=== PATIENT | female | born 1960 | race African-American/Black ===

== ENCOUNTER 2017-08-13 02:48 | Inpatient (IN) | payer OTHER ==
--- NOTE | 2017-08-13 03:18 | PDOC ---
History of Present Illness - General Exam Limitations: No Limitations - History of Present Illness Initial Comments: 08/13/17 04:20 Patient is a 57 year old female with a significant past medical history of HTN, DM, COPD, CKD who presents to the ED with complaints of Exacerbation of asthma / COPD that began yesterday morning. Patient reports smoking yesterday morning when she began experiencing SOB. Patient states she doesn't know if the SOB is caused by exacerbation of asthma or by COPD as the feeling of the SOB feels similar to both. Patient states she has been compliant with all prescribed medications. Denies fever, chills. Denie headache, lightheadedness. Denies nausea, vomiting. Denies contact with sick individuals, out of state travel. Allergies: tomato, Penicillins, chocolate Social history: Current smoker. No alcohol. No illicit drugs. Surgical history: None PMD: Dr. Rivera Doe <Diego Nagy - Last Filed: 08/13/17 04:20> - General History Source: Patient <Christian Maradiaga - Last Filed: 08/13/17 05:20> - General Chief Complaint: Shortness of Breath Stated Complaint: S.O.B. Time Seen by Provider: 08/13/17 03:15 Past History <Diego Nagy - Last Filed: 08/13/17 04:20> - Past Medical History Anemia: No Asthma: Yes Cancer: No Cardiac Disorders: No CVA: No COPD: Yes CHF: No Dementia: No Diabetes: Yes GI Disorders: No Disorders: No HTN: Yes Hypercholesterolemia: Yes Liver Disease: No Seizures: No Thyroid Disease: No - Surgical History Abdominal Surgery: No Appendectomy: No Cardiac Surgery: No Cholecystectomy: No Lung Surgery: No Neurologic Surgery: No Orthopedic Surgery: No - Immunization History Td Vaccination: Yes TDAP Vaccination: Yes Immunization Up to Date: Yes - Suicide/Smoking/Psychosocial Hx Smoking Status: Yes Smoking History: Former smoker Years of Tobacco Use: 30 Have you smoked in the past 12 months: No Number of Cigarettes Smoked Daily: 0 Cigars Per Day: 0 Information on smoking cessation initiated: No 'Breaking Loose' booklet given: 12/07/13 Hx Alcohol Use: No Drug/Substance Use Hx: No Substance Use Type: None Hx Substance Use Treatment: No <Christian Maradiaga - Last Filed: 08/13/17 05:20> - Past Medical History Allergies/Adverse Reactions: Allergies Allergy/AdvReac Type Severity Reaction Status Date / Time tomato [Tomato] Allergy Unknown Verified 08/13/17 03:12 Penicillins Allergy Hives Verified 08/13/17 03:12 chocolate Allergy Unknown Uncoded 08/13/17 03:12 Home Medications: Ambulatory Orders Gabapentin [Neurontin -] 300 mg PO Q6H #21 capsule 07/09/13 Atenolol [Tenormin -] 100 mg PO BID #60 tablet 11/28/15 Bupropion HCl [Wellbutrin Xl -] 150 mg PO DAILY #30 tab.sr.24h 11/28/15 Dabigatran Etexilate Mesylate [Pradaxa -] 150 mg PO BID #60 cap 11/28/15 Diltiazem Cd [Cardizem Cd -] 360 mg PO DAILY #30 cap.cd.24h 11/28/15 Hydroxyzine Pamoate [Vistaril -] 50 mg PO DAILY #30 capsule 11/28/15 Oxycodone HCl/Acetaminophen [Percocet 10-325 mg Tablet] 1 each PO QID PRN #16 tablet MDD 4 tabs 04/29/16 Review of Systems - Review of Systems Able to Perform ROS?: Yes Comments:: 08/13/17 04:20 CONSTITUTIONAL: Absent: fever, no chills, no fatigue EYES: Absent: visual changes ENT: Absent: ear pain, no sore throat CARDIOVASCULAR: Absent: chest pain, no palpitations RESPIRATORY: +SOB Absent: cough, GI: Absent: abdominal pain, no nausea, no vomiting, no constipation, no diarrhea GENITOURINARY: Absent: dysuria, no frequency, no hematuria MUSCULOSKELETAL: Absent: back pain, no arthralgia, no myalgia SKIN: Absent: rash All Other Systems: Reviewed and Negative <Diego Nagy - Last Filed: 08/13/17 04:20> *Physical Exam - Vital Signs Last Vital Signs Temp Pulse Resp BP Pulse Ox 99.4 F 72 22 180/80 92 L 08/13/17 03:28 08/13/17 03:28 08/13/17 03:28 08/13/17 03:28 08/13/17 03:28 - Physical Exam Comments: 08/13/17 04:20 GENERAL: Well-appearing, well-nourished. No apparent distress. HEENT: Normocephalic, atraumatic. PERRL, EOM intact. CARDIOVASCULAR: Normal S1, S2. Regular rate and rhythm. PULMONARY: +Coarse bilateral breath sounds. +Mild conversational dyspnea. Clear to auscultation bilaterally. ABDOMEN: Soft, non-distended, non-tender. EXTREMITIES: Normal ROM in all four extremities. No gross deformities. SKIN: Warm, dry. No rash NEUROLOGICAL: No focal neurological deficits. <Diego Nagy - Last Filed: 08/13/17 04:20> ED Treatment Course - LABORATORY CBC & Chemistry Diagram: 08/13/17 03:30 08/13/17 03:30 - ADDITIONAL ORDERS Additional order review: Laboratory Results 08/13/17 03:30 PT with INR 12.40 H INR 1.10 D-Dimer 388 H 08/13/17 03:30 RBC 4.48 MCV 88.3 MCHC 32.7 RDW 15.5 MPV 10.6 Neutrophils % 82.3 D Lymphocytes % 6.4 L D Monocytes % 10.1 Eosinophils % 0.9 Basophils % 0.3 - Medications Given in the ED: ED Medications Discontinued Medications Generic Name Dose Route Start Last Admin Trade Name Freq PRN Reason Stop Dose Admin Albuterol/Ipratropium 1 amp 08/13/17 03:19 08/13/17 03:40 Duoneb - NEB 08/13/17 03:20 1 amp ONCE STA Administration Albuterol/Ipratropium 1 amp 08/13/17 03:20 08/13/17 04:05 Duoneb - NEB 08/13/17 03:21 1 amp ONCE STA Administration Magnesium Sulfate 2 gm 08/13/17 03:20 08/13/17 04:05 Magnesium Sulfate IVPB 08/13/17 03:21 2 gm ONCE ONE Administration Methylprednisolone Sodium Succinate 125 mg 08/13/17 03:19 08/13/17 04:05 Solu-Medrol - IVPB 08/13/17 03:20 125 mg ONCE ONE Administration <Digeo Nagy - Last Filed: 08/13/17 04:20> - LABORATORY CBC & Chemistry Diagram: 08/13/17 03:30 08/13/17 03:30 <Christian Maradiaga - Last Filed: 08/13/17 05:20> Medical Decision Making - Medical Decision Making 08/13/17 05:18 Dr. Maradiaga: The scribe's documentation has been prepared under my direction and personally reviewed by me in its entirery. I confirm that the note above accurately reflects all work, treatment, procedures, and medical decision making performed by me. Pt still having moderate sob. Pt found also to have CHF with elevation of BNP. Pt will be admitted to Telemetry. <Christian Maradiaga - Last Filed: 08/13/17 05:20> *DC/Admit/Observation/Transfer - Attestations Scribe Attestion: 08/13/17 04:21 Documentation prepared by Diego Nagy, acting as medical staffing coordinator for Christian Maradiaga MD/DO. <Diego Nagy - Last Filed: 08/13/17 04:20> - Discharge Dispostion Admit: Yes <Christian Maradiaga - Last Filed: 08/13/17 05:20> Diagnosis at time of Disposition: COPD (chronic obstructive pulmonary disease), CHF (congestive heart failure) - Discharge Dispostion Condition at time of disposition: Stable - Referrals Referrals: Rivera Doe [Primary Care Provider] - - Patient Instructions - Post Discharge Activity
[2017-08-13] MEDS ORDERED: methylPREDNISolone NA SUCC 125 MG/2 ML VIAL IVPB ONE (03:19)
[2017-08-13] MEDS ORDERED: ALBUTEROL SO4 2.5/IPRATROPIUM 0.5 INH SOL 3 ML VIAL.NEB. NEB STA ×2 (03:19→03:20)
[2017-08-13] MEDS ORDERED: MAGNESIUM SULF 50% (8.12 MEQ/2 ML-1 GM VIAL) IVPB ONE (03:20)
[2017-08-13] MEDS ORDERED: MAGNESIUM SULF 50% (8.12 MEQ/2 ML-1 GM VIAL) ONE (03:42)
[2017-08-13] MEDS ORDERED: methylPREDNISolone NA SUCC 125 MG/2 ML VIAL ONE (03:43)
[2017-08-13] MEDS ORDERED: ALBUTEROL SO4 2.5/IPRATROPIUM 0.5 INH SOL 3 ML VIAL.NEB. NEB ONE (03:43)
[2017-08-13 03:44] LABS: BASOPHIL 0.3 % (0-2.0); EOSINOPHIL 0.9 % (0-4.5); MCH 28.8 pg (25.7-33.7); MCHC 32.7 g/dl (32.0-36.0); MEAN CELL VOLUME 88.3 fl (80-96); MEAN PLT VOLUME 10.6 fl (7.5-11.1); NEUTROPHILS 82.3 % (42.8-82.8); PLATELET COUNT 123 K/MM3 (134-434); RDW 15.5 % (11.6-15.6); WHITE BLOOD COUNT 17.7 K/mm3 (4.0-10.0)
[2017-08-13 03:59] LABS: INR 1.1 (0.82-1.09); PROTHROMBIN TIME (PATIENT) 12.4 SEC (9.98-11.88)
[2017-08-13 04:18] LABS: TROPONIN I 0.05 ng/ml (0.00-0.05)
[2017-08-13 04:27] LABS: ALBUMIN 3.6 g/dl (3.4-5.0); ALK PHOS 67 U/L (45-117); ANION GAP 10 (8-16); BILIRUBIN,TOTAL 0.8 mg/dL (0.2-1.0); CALCIUM 9.3 mg/dL (8.5-10.1); CO2 35 mmol/L (21-32); CREATININE 1.3 mg/dL (0.55-1.02); GLUCOSE,RANDOM 177 mg/dL (74-106); SGOT/AST 16 U/L (15-37); SGPT/ALT 32 U/L (12-78); TOT PROT 7.2 g/dl (6.4-8.2)
[2017-08-13] MEDS ORDERED: FUROSEMIDE 40 MG/4 ML INJECTABLE VIAL IVPUSH ONE (05:10)
[2017-08-13] MEDS ORDERED: FUROSEMIDE 40 MG/4 ML INJECTABLE VIAL ONE (06:00)
[2017-08-13] MEDS: FUROSEMIDE 40 MG/4 ML INJECTABLE VIAL IVPUSH SCH ×2 (06:57→14:41)
[2017-08-13] MEDS: GABAPENTIN 300 MG CAPSULE (FP) PO SCH ×3 (08:50→21:06)
[2017-08-13] MEDS ORDERED: GABAPENTIN 100 MG CAPSULE (FP) ONE (08:54)
[2017-08-13 10:16] LABS: MAGNESIUM 2.6 mg/dL (1.8-2.4)
[2017-08-13] MEDS ORDERED: ACETAMINOPHEN 325 MG TABLET (FP) PO PRN (10:16)
--- NOTE | 2017-08-13 10:17 | HP ---
Admitting History and Physical - Primary Care Physician PCP: Maite Carlin - Admission Chief Complaint: SOB/COUGH/WHEEZES History of Present Illness: Patient is a 57 year old female with a significant past medical history of HTN, DM, COPD, CKD who presents to the ED with complaints of Exacerbation of asthma / COPD that began yesterday morning. Patient reports smoking yesterday morning when she began experiencing SOB. Patient states she doesn't know if the SOB is caused by exacerbation of asthma or by COPD as the feeling of the SOB feels similar to both. Patient states she has been compliant with all prescribed medications. History Source: Patient, Medical Record - Past Medical History Cardiovascular: Yes: HTN Pulmonary: Yes: COPD Endocrine: Yes: Diabetes Mellitus - Smoking History Smoking history: Former smoker Have you smoked in the past 12 months: No Aproximately how many cigarettes per day: 0 - Alcohol/Substance Use Hx Alcohol Use: No Home Medications - Allergies Allergies/Adverse Reactions: Allergies Allergy/AdvReac Type Severity Reaction Status Date / Time tomato [Tomato] Allergy Unknown Verified 08/13/17 03:12 Penicillins Allergy Hives Verified 08/13/17 03:12 chocolate Allergy Unknown Uncoded 08/13/17 03:12 - Home Medications Home Medications: Ambulatory Orders Gabapentin [Neurontin -] 300 mg PO Q6H #21 capsule 07/09/13 Atenolol [Tenormin -] 100 mg PO BID #60 tablet 11/28/15 Bupropion HCl [Wellbutrin Xl -] 150 mg PO DAILY #30 tab.sr.24h 11/28/15 Dabigatran Etexilate Mesylate [Pradaxa -] 150 mg PO BID #60 cap 11/28/15 Diltiazem Cd [Cardizem Cd -] 360 mg PO DAILY #30 cap.cd.24h 11/28/15 Hydroxyzine Pamoate [Vistaril -] 50 mg PO DAILY #30 capsule 11/28/15 Oxycodone HCl/Acetaminophen [Percocet 10-325 mg Tablet] 1 each PO QID PRN #16 tablet MDD 4 tabs 04/29/16 Review of Systems - Review of Systems Constitutional: reports: Weakness Eyes: reports: No Symptoms HENT: reports: No Symptoms Neck: reports: No Symptoms Cardiovascular: reports: Shortness of Breath Respiratory: reports: Cough, Orthopnea, SOB, SOB on Exertion, Wheezing Gastrointestinal: reports: No Symptoms Genitourinary: reports: No Symptoms Musculoskeletal: reports: No Symptoms Integumentary: reports: No Symptoms Neurological: reports: No Symptoms Endocrine: reports: No Symptoms Hematology/Lymphatic: reports: No Symptoms Psychiatric: reports: No Symptoms Physical Examination Vital Signs: Vital Signs Temperature 99.4 F 08/13/17 03:28 Pulse Rate 96 H 08/13/17 07:05 Respiratory Rate 18 08/13/17 07:05 Blood Pressure 159/86 08/13/17 07:05 O2 Sat by Pulse Oximetry (%) 93 L 08/13/17 07:05 Constitutional: Yes: Moderate Distress Eyes: Yes: WNL HENT: Yes: WNL Neck: Yes: WNL Cardiovascular: Yes: WNL Respiratory: Yes: On Nasal O2, Rhonchi, SOB Gastrointestinal: Yes: WNL Renal/: Yes: WNL Musculoskeletal: Yes: WNL Extremities: Yes: WNL Edema: No Peripheral Pulses WNL: Yes Integumentary: Yes: WNL Wound/Incision: Yes: Clean/Dry Neurological: Yes: WNL ...Motor Strength: WNL Psychiatric: Yes: WNL Labs: CBC, BMP 08/13/17 03:30 08/13/17 03:30 Imaging - Results Chest X-ray: Report Reviewed Problem List - Problems (1) CHF (congestive heart failure) Code(s): I50.9 - HEART FAILURE, UNSPECIFIED Qualifiers: Congestive heart failure type: unspecified congestive heart failure type Congestive heart failure chronicity: unspecified congestive heart failure chronicity Qualified Code(s): I50.9 - Heart failure, unspecified (2) COPD (chronic obstructive pulmonary disease) Code(s): J44.9 - CHRONIC OBSTRUCTIVE PULMONARY DISEASE, UNSPECIFIED Qualifiers: COPD type: COPD with acute exacerbation Qualified Code(s): J44.1 - Chronic obstructive pulmonary disease with (acute) exacerbation (3) Anxiety and depression Code(s): F41.9 - ANXIETY DISORDER, UNSPECIFIED; F32.9 - MAJOR DEPRESSIVE DISORDER, SINGLE EPISODE, UNSPECIFIED (4) Cough Code(s): R05 - COUGH (5) Cigarette nicotine dependence Code(s): F17.200 - NICOTINE DEPENDENCE, UNSPECIFIED, UNCOMPLICATED Assessment/Plan CARDIOLOGY WORKUP TELEMETRY ECHO CHECK EF% DIFFERENTIATE SYSTOLIC VS DIASTOLIC DYSFUNCTION PULMONARY EVAL MONITOR BGM ADA SMOKING CESSATION DISCUSSED
[2017-08-13 10:18] LABS: TROPONIN I 0.06 ng/ml (0.00-0.05)
--- NOTE | 2017-08-13 10:20 | EKG ---
Test Reason : Blood Pressure : / mmHG Vent. Rate : 076 BPM Atrial Rate : 076 BPM P-R Int : 118 ms QRS Dur : 102 ms QT Int : 422 ms P-R-T Axes : -46 -41 095 degrees QTc Int : 474 ms NORMAL SINUS RHYTHM LEFT AXIS DEVIATION LEFT VENTRICULAR HYPERTROPHY WITH REPOLARIZATION ABNORMALITY ABNORMAL ECG WHEN COMPARED WITH ECG OF 25-NOV-2015 10:05, ECTOPIC ATRIAL RHYTHM HAS REPLACED ATRIAL FIBRILLATION NON-SPECIFIC CHANGE IN ST SEGMENT IN LATERAL LEADS T WAVE INVERSION LESS EVIDENT IN LATERAL LEADS Confirmed by CLIFF MCDANIEL, BELLA ([id number]) on 08/13/2017 10:20:37 AM Referred By: Confirmed By:BELLA CORONADO MD
[2017-08-13] MEDS: ASPIRIN COATED 81 MG TABLET.EC PO SCH (10:30)
[2017-08-13] MEDS: ATENOLOL 50 MG TABLET (FP) PO SCH ×2 (10:30→21:06)
[2017-08-13] MEDS: DABIGATRAN ETEXILATE MESYLATE 150 MG CAPSULE PO SCH ×2 (10:30→21:06)
[2017-08-13 11:21] VITALS: BMI 30.4
--- NOTE | 2017-08-13 14:52 | PN ---
Teaching Attending Note Name of Resident: Dae Alaniz ATTENDING PHYSICIAN STATEMENT I saw and evaluated the patient. I reviewed the resident's note and discussed the case with the resident. I agree with the resident's findings and plan as documented. PULMONARY IMP DYSPNEA CHF COPD AFIB NIDDM HTN OSAS AHI 27.6 OBESITY SMOKER PLAN INHALED BRONCHODILATORS O2 LASIX MEDROL ECHO DAILY WTS SLEEP SCREEN PFTS OUTPATIENT SMOKING CESSATION COUNSELED YEARLY LOW DOSE CHEST CT FOR CANCER SCREENING OUTPATIENT CPAP TITRATION DR ROLLE Problem List - Problems (1) CHF (congestive heart failure) Code(s): I50.9 - HEART FAILURE, UNSPECIFIED (2) COPD (chronic obstructive pulmonary disease) Code(s): J44.9 - CHRONIC OBSTRUCTIVE PULMONARY DISEASE, UNSPECIFIED (3) Afib Code(s): I48.91 - UNSPECIFIED ATRIAL FIBRILLATION Qualifiers: Atrial fibrillation type: unspecified Qualified Code(s): I48.91 - Unspecified atrial fibrillation (4) Anxiety and depression Code(s): F41.9 - ANXIETY DISORDER, UNSPECIFIED; F32.9 - MAJOR DEPRESSIVE DISORDER, SINGLE EPISODE, UNSPECIFIED (5) Cough Code(s): R05 - COUGH (6) Generalized weakness Code(s): R53.1 - WEAKNESS (7) Hypertension Code(s): I10 - ESSENTIAL (PRIMARY) HYPERTENSION (8) Leg edema Code(s): R60.0 - LOCALIZED EDEMA (9) Obesity Code(s): E66.9 - OBESITY, UNSPECIFIED (10) Cigarette nicotine dependence Code(s): F17.200 - NICOTINE DEPENDENCE, UNSPECIFIED, UNCOMPLICATED (11) Diabetes Code(s): E11.9 - TYPE 2 DIABETES MELLITUS WITHOUT COMPLICATIONS (12) Hyperlipidemia Code(s): E78.5 - HYPERLIPIDEMIA, UNSPECIFIED
--- NOTE | 2017-08-13 15:09 | CONSULT ---
Consultation: REQUESTING PROVIDER: CONSULT REQUEST: We have been asked to medically evaluate this patient for elevated D-dimer. HISTORY OF PRESENT ILLNESS: 57F w/ hx of COPD, CHF, HTN, DM, a-fib, NIDDM, TANISHA, and CKD presenting with about a week of SOB. Pt reports that approximately one week ago, she developed SOB. It was accompanied by nasal congestion, rhinorrhea, non-productive cough, and wheezing. She denies sick contacts, fevers, chills, palpitations, abdominal pain, n/v/d/c, and dysuria. The SOB significantly worsened 1 day ago prompting her to come to the hospital. Pt reports medication compliance. 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 She has no surgical hx. She has about a 40 pack year smoking hx, denies alcohol, denies drug use. She has a family hx of DM, HTN, and [place]. She lives with her , 2 kids, and 2 grandkids. 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 REVIEW OF SYSTEMS: CONSTITUTIONAL: Absent: fever, chills, diaphoresis, generalized weakness, malaise, loss of appetite, weight change HEENT: Absent: throat pain, throat swelling, difficulty swallowing, mouth swelling, ear pain, eye pain, visual changes present: rhinorrhea, nasal congestion CARDIOVASCULAR: Absent: chest pain, syncope, palpitations, irregular heart rate, lightheadedness present: LE edema RESPIRATORY: Absent: orthopnea, stridor, hemoptysis present: cough, shortness of breath, dyspnea with exertion, wheezing GASTROINTESTINAL: Absent: abdominal pain, abdominal distension, nausea, vomiting, diarrhea, constipation, melena, hematochezia GENITOURINARY: Absent: dysuria, frequency, urgency, hesitancy, hematuria, flank pain, genital pain MUSCULOSKELETAL: Absent: myalgia, joint swelling, back pain, neck pain present: knee pain SKIN: Absent: rash, itching, pallor HEMATOLOGIC/IMMUNOLOGIC: Absent: easy bleeding, easy bruising, lymphadenopathy, frequent infections ENDOCRINE: Absent: unexplained weight gain, unexplained weight loss, heat intolerance, cold intolerance NEUROLOGIC: Absent: headache, focal weakness or paresthesias, dizziness, unsteady gait, seizure, mental status changes, bladder or bowel incontinence PSYCHIATRIC: Absent: anxiety, depression, suicidal or homicidal ideation, hallucinations. PHYSICAL EXAMINATION Vital Signs - 24 hr 08/13/17 08/13/17 08/13/17 03:28 07:05 10:30 Temperature 99.4 F Pulse Rate 72 Pulse Rate [ 96 H 68 Right Apical] Respiratory 22 18 Rate Blood Pressure 180/80 Blood Pressure 159/86 189/99 [Right Arm] O2 Sat by Pulse 92 L 93 L 94 L Oximetry (%) 08/13/17 08/13/17 14:00 14:50 Temperature 98.4 F Pulse Rate 74 Pulse Rate [ 65 Right Apical] Respiratory 20 Rate Blood Pressure 141/69 Blood Pressure 145/80 [Right Arm] O2 Sat by Pulse 92 L Oximetry (%) GENERAL: obese female, awake, alert, and fully oriented, in no acute distress. HEENT: poor dentition, rhinorrhea NECK: Normal range of motion, supple without lymphadenopathy, JVD, or masses. LUNGS: decreased breath sounds, no rales, no wheezing HEART: Regular rate and rhythm, normal S1 and S2 without murmur, rub or gallop. ABDOMEN: obese, soft, nontender, not distended, normoactive bowel sounds, no guarding, no rebound, no masses. No hepatomegaly or splenomegaly. MUSCULOSKELETAL: 1+ b/l LE edema up to ankles NEUROLOGICAL: Cranial nerves II-XII intact. Normal speech. PSYCHIATRIC: Cooperative. Good eye contact. Appropriate mood and affect. SKIN: Warm, dry, normal turgor, no rashes or lesions noted. Laboratory Results - last 24 hr 08/13/17 08/13/17 08/13/17 03:30 03:30 03:30 WBC 17.7 H D RBC 4.48 Hgb 12.9 Hct 39.5 MCV 88.3 MCH 28.8 MCHC 32.7 RDW 15.5 Plt Count 123 L MPV 10.6 Neutrophils % 82.3 D Lymphocytes % 6.4 L D Monocytes % 10.1 Eosinophils % 0.9 Basophils % 0.3 PT with INR 12.40 H INR 1.10 D-Dimer 388 H Sodium Potassium Chloride Carbon Dioxide Anion Gap BUN Creatinine Creat Clearance w eGFR Random Glucose Hemoglobin A1c % Calcium Magnesium Total Bilirubin AST ALT Alkaline Phosphatase Creatine Kinase 51 Troponin I 0.05 B-Natriuretic Peptide 19780.47 H Total Protein Albumin Triglycerides Cholesterol Total LDL Cholesterol HDL Cholesterol 08/13/17 08/13/17 08/13/17 03:30 09:43 09:43 WBC RBC Hgb Hct MCV MCH MCHC RDW Plt Count MPV Neutrophils % Lymphocytes % Monocytes % Eosinophils % Basophils % PT with INR INR D-Dimer Sodium 143 Potassium 3.5 Chloride 98 Carbon Dioxide 35 H Anion Gap 10 BUN 21 H Creatinine 1.3 H Creat Clearance w eGFR 41.92 Random Glucose 177 H D Hemoglobin A1c % 7.2 H D Calcium 9.3 Magnesium 2.6 H Total Bilirubin 0.8 D AST 16 D ALT 32 D Alkaline Phosphatase 67 D Creatine Kinase 52 Troponin I 0.06 H B-Natriuretic Peptide Total Protein 7.2 Albumin 3.6 Triglycerides 84 D Cholesterol 252 H D Total LDL Cholesterol 100 HDL Cholesterol 130 H D Active Medications Generic Name Dose Route Start Last Admin Trade Name Freq PRN Reason Stop Dose Admin Acetaminophen 650 mg 08/13/17 10:16 Tylenol - PO Q6H PRN FEVER OR PAIN Aspirin 81 mg 08/13/17 10:00 08/13/17 10:30 Ecotrin - PO 81 mg DAILY JOLENE Administration Atenolol 100 mg 08/13/17 10:00 08/13/17 10:30 Tenormin - PO 100 mg BID JOLENE Administration Bupropion HCl 150 mg 08/13/17 10:00 08/13/17 10:30 Wellbutrin Xl - PO 150 mg DAILY JOLENE Administration Dabigatran 150 mg 08/13/17 10:00 08/13/17 10:30 Pradaxa - PO Not Given BID JOLENE Diltiazem HCl 360 mg 08/13/17 10:00 08/13/17 10:30 Cardizem Cd - PO 360 mg DAILY JOLENE Administration Furosemide 40 mg 08/13/17 06:30 08/13/17 14:41 Lasix Injection - IVPUSH 40 mg BID@0600,1400 JOLENE Administration Gabapentin 300 mg 08/13/17 06:30 08/13/17 14:40 Neurontin - PO 300 mg TID JOLENE Administration Oxycodone HCl 5 mg 08/13/17 10:16 Roxicodone - PO Q6H PRN PAIN CXR: large heart, no acute pathology ASSESSMENT/PLAN: 57F w/ hx of CHF, COPD, HTN, DM, a-fib, NIDDM and CKD presenting with acute SOB. #SOB -likely 2/2 COPD vs. CHF exacerbation -lasix -duonebs -steroids -O2 via NC -echo -daily weights, strict I/O's -counseling on smoking cessation -pt should have yearly low dose CT chest for lung cancer screening -outpt CPAP titration -outpt PFTs Rest of care per medical team Case discussed with attending, Dr. Virk. Dispo: We will continue to follow the patient. Thank you for this consultative opportunity. -Dae Alaniz MD PGY1 Pulmonology Team Visit type - Emergency Visit Emergency Visit: Yes ED Registration Date: 08/13/17 Care time: The patient presented to the Emergency Department on the above date and was hospitalized for further evaluation of their emergent condition. - New Patient This patient is new to me today: No - Critical Care Critical Care patient: No
[2017-08-13 15:21] LABS: URINE APPEARANCE SLCLOUDY; URINE BILIRUBIN NEGATIVE (NEGATIVE); URINE BLOOD NEGATIVE (NEGATIVE); URINE COLOR YELLOW; URINE GLUCOSE (UA) 1+ (NEGATIVE); URINE KETONE NEGATIVE (NEGATIVE); URINE NITRITE NEGATIVE (NEGATIVE); URINE UROBILINOGEN NEGATIVE mg/dL (0.2-1.0)
[2017-08-13 15:25] LABS: URINE LEUK ESTERASE 2+ (NEGATIVE); URINE PROTEIN 2+ (NEGATIVE)
[2017-08-13 15:33] LABS: URINE BACTERIA RARE /hpf (NONE SEEN); URINE HYALINE CAST 7 /lpf; URINE MUCUS RARE; URINE RBC 5 /hpf (0-3); URINE WBC 8 /hpf (3-5)
[2017-08-13] MEDS: oxyCODONE HCL 5 MG TABLET PO PRN (16:26)
--- NOTE | 2017-08-13 17:17 | CON.CARD ---
Consult Consult Specialty:: Cardiology Reason for Consultation:: CHF - History of Present Illness Chief Complaint: Presently offers no complaints History of Present Illness: This is a 57 year old female with a PMH of AFIB (on Pradaxa), HTN, DM, COPD, and CKD. She presents now with a complaint of PEÑA secondary to asthma / COPD. She continue to smoke. She reports that approximately one week ago, she developed SOB. It was accompanied by nasal congestion, rhinorrhea, non-productive cough, and wheezing. According to the patient, these symptoms have resolved. Echocardiogram 08/13/17 Showede an EF of 77% Normal LV size and function Normal RV size and function Mild MV thickening - Past Medical History Cardio/Vascular: Yes: HTN Pulmonary: Yes: COPD Endocrine: Yes: Diabetes Mellitus - Alcohol/Substance Use Hx Alcohol Use: No - Smoking History Smoking history: Former smoker Have you smoked in the past 12 months: No Aproximately how many cigarettes per day: 0 - Social History Usual Living Arrangement: With Spouse (and two grand children) Home Medications - Allergies Allergies/Adverse Reactions: Allergies Allergy/AdvReac Type Severity Reaction Status Date / Time tomato [Tomato] Allergy Unknown Verified 08/13/17 03:12 Penicillins Allergy Hives Verified 08/13/17 03:12 chocolate Allergy Unknown Uncoded 08/13/17 03:12 - Home Medications Home Medications: Ambulatory Orders Gabapentin [Neurontin -] 300 mg PO Q6H #21 capsule 07/09/13 Atenolol [Tenormin -] 100 mg PO BID #60 tablet 11/28/15 Bupropion HCl [Wellbutrin Xl -] 150 mg PO DAILY #30 tab.sr.24h 11/28/15 Dabigatran Etexilate Mesylate [Pradaxa -] 150 mg PO BID #60 cap 11/28/15 Diltiazem Cd [Cardizem Cd -] 360 mg PO DAILY #30 cap.cd.24h 11/28/15 Hydroxyzine Pamoate [Vistaril -] 50 mg PO DAILY #30 capsule 11/28/15 Oxycodone HCl/Acetaminophen [Percocet 10-325 mg Tablet] 1 each PO QID PRN #16 tablet MDD 4 tabs 04/29/16 Review of Systems Unable to obtain ROS, reason: As per HPI Vital Signs: Vital Signs Temperature 98.4 F 08/13/17 14:50 Pulse Rate 74 08/13/17 14:50 Respiratory Rate 20 08/13/17 14:50 Blood Pressure 141/69 08/13/17 14:50 O2 Sat by Pulse Oximetry (%) 92 L 08/13/17 14:00 Constitutional: Yes: No Distress HENT: Yes: WNL Respiratory: Yes: CTA Bilaterally Gastrointestinal: Yes: Soft Cardiovascular: Yes: Regular Rate and Rhythm (NL S1S2, no MRHG) Extremities: Yes: WNL Edema: No Neurological: Yes: Alert, Oriented (Grossly non focal) - Other Data Labs, Other Data: CBC, BMP 08/13/17 03:30 08/13/17 03:30 INR, PTT INR 1.10 (0.82-1.09) 08/13/17 03:30 Troponin, BNP 08/13/17 08/13/17 03:30 09:43 Troponin I 0.05 0.06 H B-Natriuretic Peptide 22859.47 H Troponin, BNP 08/13/17 08/13/17 03:30 09:43 Troponin I 0.05 0.06 H B-Natriuretic Peptide 50228.47 H Assessment/Plan AFIB (on Pradaxa), HTN, DM, COPD, and CKD. History of AFIB Contiue Pradaxa Currently on Atenolol and Diltiazem for rate control and HTN Diastolic CHF Acute on chronic diastolic CHF BNP^ Improved after IV Lasix
[2017-08-13 20:11] LABS: URINE LEUK ESTERASE 1+ (NEGATIVE)
[2017-08-14] MEDS: oxyCODONE HCL 5 MG TABLET PO PRN ×2 (01:46→10:10)
[2017-08-14] MEDS: GABAPENTIN 300 MG CAPSULE (FP) PO SCH (06:26)
[2017-08-14] MEDS: FUROSEMIDE 40 MG/4 ML INJECTABLE VIAL IVPUSH SCH (06:26)
[2017-08-14] MEDS: ATENOLOL 50 MG TABLET (FP) PO SCH ×2 (06:49→10:08)
[2017-08-14] MEDS ORDERED: INSULIN SLIDING SCALE (NOVOLOG) 1 VIAL SQ SCH (07:00)
[2017-08-14 07:29] LABS: BASOPHIL 0.2 % (0-2.0); MCH 28.5 pg (25.7-33.7); MCHC 31.8 g/dl (32.0-36.0); MEAN CELL VOLUME 89.7 fl (80-96); MEAN PLT VOLUME 11.6 fl (7.5-11.1); NEUTROPHILS 77.2 % (42.8-82.8); PLATELET COUNT 126 K/MM3 (134-434); RDW 15.4 % (11.6-15.6); WHITE BLOOD COUNT 13.8 K/mm3 (4.0-10.0)
[2017-08-14 08:21] LABS: ALBUMIN 2.9 g/dl (3.4-5.0); ALK PHOS 57 U/L (45-117); ANION GAP 8 (8-16); BILIRUBIN,TOTAL 0.7 mg/dL (0.2-1.0); CALCIUM 8.3 mg/dL (8.5-10.1); CO2 35 mmol/L (21-32); CPK 36 IU/L (26-192); CREATININE 1.3 mg/dL (0.55-1.02); GLUCOSE,RANDOM 172 mg/dL (74-106); SGOT/AST 12 U/L (15-37); SGPT/ALT 24 U/L (12-78); TOT PROT 6.2 g/dl (6.4-8.2); TROPONIN I 0.05 ng/ml (0.00-0.05)
[2017-08-14] MEDS ORDERED: PT OWN MED DRAWER 7, Y5N ONE (09:42)
[2017-08-14 10:03] VITALS: TEMP 98.2
[2017-08-14] MEDS: ASPIRIN COATED 81 MG TABLET.EC PO SCH (10:11)
[2017-08-14] MEDS: DABIGATRAN ETEXILATE MESYLATE 150 MG CAPSULE PO SCH (10:11)
[2017-08-14 10:20] VITALS: BP 146/96
--- NOTE | 2017-08-14 10:57 | DS ---
Physical Examination Vital Signs: Vital Signs Temperature 98.2 F 08/14/17 08:05 Pulse Rate 56 L 08/14/17 10:20 Respiratory Rate 16 08/14/17 10:20 Blood Pressure 146/96 08/14/17 10:20 O2 Sat by Pulse Oximetry (%) 94 L 08/13/17 21:00 Findings/Remarks: AWAKE ALERT WOULD LIKE TO GO HOME SHE REPORTS SHE FEELS GREAT Constitutional: Yes: No Distress Eyes: Yes: WNL HENT: Yes: WNL Neck: Yes: WNL Cardiovascular: Yes: Pulse Irregular Respiratory: Yes: CTA Bilaterally Gastrointestinal: Yes: WNL ...Rectal Exam: Yes: WNL Musculoskeletal: Yes: WNL Extremities: Yes: WNL Edema: No Peripheral Pulses WNL: Yes Integumentary: Yes: WNL Wound/Incision: Yes: Clean/Dry Neurological: Yes: WNL ...Motor Strength: WNL Psychiatric: Yes: WNL Labs: CBC, BMP 08/14/17 07:05 08/14/17 07:05 Discharge Summary Reason For Visit: COPD/CHF Current Active Problems CHF (congestive heart failure) (Acute) COPD (chronic obstructive pulmonary disease) (Chronic) Procedures: Principal: CXR/TELEMETRY Hospital Course: ADMITTED ACUTE CHF/COPD ECHO DONE NORMAL EF%, DIURESED WITH IV LASIX, DC HOME AND F/U TOMORROW QITH HER PMD DR DOE Condition: Stable - Instructions Diet, Activity, Other Instructions: HOME CARE WITH [facility] VISITING NURSES DAILY WEIGHTS AND DIET LOW SODIUM ADA SEE DR DOE PMD 1030AM FOR F/U Referrals: Rivera Doe [Primary Care Provider] - Disposition: VNS/HOME HEALTH CARE - Home Medications Comprehensive Discharge Medication List: Ambulatory Orders Gabapentin [Neurontin -] 300 mg PO Q6H #21 capsule 07/09/13 Atenolol [Tenormin -] 100 mg PO BID #60 tablet 11/28/15 Bupropion HCl [Wellbutrin Xl -] 150 mg PO DAILY #30 tab.sr.24h 11/28/15 Dabigatran Etexilate Mesylate [Pradaxa -] 150 mg PO BID #60 cap 11/28/15 Diltiazem Cd [Cardizem Cd -] 360 mg PO DAILY #30 cap.cd.24h 03/22/16 Hydroxyzine Pamoate [Vistaril -] 50 mg PO DAILY #30 capsule 11/28/15 Oxycodone HCl/Acetaminophen [Percocet 10-325 mg Tablet] 1 each PO QID PRN #16 tablet MDD 4 tabs 04/29/16
--- NOTE | 2017-08-14 11:36 | EKG ---
Test Reason : Blood Pressure : / mmHG Vent. Rate : 061 BPM Atrial Rate : 061 BPM P-R Int : 126 ms QRS Dur : 112 ms QT Int : 492 ms P-R-T Axes : -04 -49 064 degrees QTc Int : 495 ms NORMAL SINUS RHYTHM LEFT ANTERIOR FASCICULAR BLOCK LEFT VENTRICULAR HYPERTROPHY WITH REPOLARIZATION ABNORMALITY PROLONGED QT ABNORMAL ECG WHEN COMPARED WITH ECG OF 13-AUG-2017 03:44, NONSPECIFIC T WAVE ABNORMALITY HAS REPLACED INVERTED T WAVES IN LATERAL LEADS Confirmed by LETY ESTEBAN MD ([id number]) on 08/14/2017 11:36:21 AM Referred By: Enriqueta DELGADO Confirmed By:LETY ESTEBAN MD
[2017-08-14 13:17] VITALS: PULSE 60
[2017-08-14] MEDS ORDERED: FUROSEMIDE 40 MG TABLET (FP) PO SCH (14:00)
== END 2017-08-14 13:35 | disposition home health service (06) | DRG 140 ==
LOC: JER 02:48 → JERBED 05:15 → UNDOADMIN 05:32 → JERBED 05:32 → J4W 14:25
PROVIDERS: ADMIT Family Medicine; ATTEND Family Medicine
DX: J44.1 Chronic obstructive pulmonary disease with (acute) exacerbation (principal); I50.33 Acute on chronic diastolic (congestive) heart failure; I13.0 Hypertensive heart and chronic kidney disease with heart failure and stage 1 through stage 4 chronic kidney disease, or unspecified chronic kidney disease; E11.22 Type 2 diabetes mellitus with diabetic chronic kidney disease; I48.91 Unspecified atrial fibrillation; N18.9 Chronic kidney disease, unspecified; F17.210 Nicotine dependence, cigarettes, uncomplicated; G47.33 Obstructive sleep apnea (adult) (pediatric); E78.5 Hyperlipidemia, unspecified; E66.9 Obesity, unspecified; Z68.31 Body mass index [BMI] 31.0-31.9, adult; Z79.01 Long term (current) use of anticoagulants
CPT/HCPCS: 36415; 71010-TC; 80053; 80061; 81003; 81015; 82550; 83036; 83721; 83735; 83880; 84484; 85025; 85379; 85610; 93005; 93010; 93306-TC; 94761; 99283-25

== ENCOUNTER 2017-11-26 15:05 | Observation (INO) | payer OTHER ==
--- NOTE | 2017-11-26 16:29 | PDOC ---
Attending Attestation - HPI HPI: 11/26/17 17:31 The patient is a 57 year old female with signifcant history of hypertension, CHF who presents to the ED complaining of several days of progressively worsening bilateral lower extremity swelling, left greater than right. She denies fever, chills, chest pain, or shortness of breath. Denies recent travel or long periods of immobilization. Documentation prepared by Zoraida Srivastava, acting as medical research scientist for Miguel Naranjo MD. <Zoraida Srivastava - Last Filed: 11/26/17 17:31> - Resident Resident Name: Eddie Angela - ED Attending Attestation I have performed the following: I have examined & evaluated the patient, The case was reviewed & discussed with the resident, I agree w/resident's findings & plan, Exceptions are as noted - Physicial Exam PE: 11/26/17 18:42 pt is awake, alert, well nourished nc, atr perrla, eomi + crackles at bases b/l iregularly irregular, tachycardic sft, nt, nd + 2 pitting edema b/l extending to the level of the knee - Medical Decision Making 11/26/17 18:51 57 y/o female wtih multiple comorbidities presents wtih signs of mild to moderate chf excacerbation. cbc/cmp is wnl; ekg shows afib wtih no acute ischemia. chest x-ray shows cardiomegaly and vascular congestion. bnp is elevated. will diurese wtih lasix. will place in obs for cont diuresis. <Miguel Naranjo - Last Filed: 11/26/17 18:54>
[2017-11-26] MEDS ORDERED: FUROSEMIDE 40 MG/4 ML INJECTABLE VIAL IVPUSH ONE (16:39)
[2017-11-26] MEDS ORDERED: FUROSEMIDE 40 MG/4 ML INJECTABLE VIAL ONE (16:51)
--- NOTE | 2017-11-26 17:25 | PDOC ---
History of Present Illness - General Chief Complaint: Edema Stated Complaint: EDEMA Time Seen by Provider: 11/26/17 16:24 History Source: Patient Exam Limitations: No Limitations - History of Present Illness Initial Comments: 11/26/17 17:20 Patient is a 57F with history of afib on eliquis, chf, copd, ckd, dm, htn here today complaining of two days of leg swelling. She states that she has heart failure and is worried about getting short of breath. She denies chest pain, shortness of breath, fever, chills, nausea, vomiting. She endorses compliance with her medications but she's unsure what her medications are. Denies erythema in her legs, states that her left foot is swollen more than her right. Past History - Past Medical History Allergies/Adverse Reactions: Allergies Allergy/AdvReac Type Severity Reaction Status Date / Time tomato [Tomato] Allergy Unknown Verified 11/26/17 15:14 Penicillins Allergy Hives Verified 11/26/17 15:14 chocolate Allergy Unknown Uncoded 11/26/17 15:14 Home Medications: Ambulatory Orders Gabapentin [Neurontin -] 300 mg PO Q6H #21 capsule 07/09/13 Atenolol [Tenormin -] 100 mg PO BID #60 tablet 11/28/15 Bupropion HCl [Wellbutrin Xl -] 150 mg PO DAILY #30 tab.sr.24h 11/28/15 Dabigatran Etexilate Mesylate [Pradaxa -] 150 mg PO BID #60 cap 11/28/15 Diltiazem Cd [Cardizem Cd -] 360 mg PO DAILY #30 cap.cd.24h 11/28/15 hydrOXYzine PAMOATE [Vistaril -] 50 mg PO DAILY #30 capsule 11/28/15 Oxycodone HCl/Acetaminophen [Percocet 10-325 mg Tablet] 1 each PO QID PRN #16 tablet MDD 4 tabs 04/29/16 Acetaminophen [Tylenol .Regular Strength -] 650 mg PO Q6H PRN tablet 08/14/17 Aspirin Coated [Ecotrin -] 81 mg PO DAILY #30 tablet.ec 08/14/17 Furosemide [Lasix -] 40 mg PO BID@0600,1400 #60 tablet 08/14/17 Nicotine Patch [Nicoderm Patch -] 1 patch TD DAILY #30 patch 08/14/17 Anemia: No Asthma: Yes Cancer: No Cardiac Disorders: No CVA: No COPD: Yes CHF: No Dementia: No Diabetes: Yes GI Disorders: No Disorders: No HTN: Yes Hypercholesterolemia: Yes Liver Disease: No Seizures: No Thyroid Disease: No - Surgical History Abdominal Surgery: No Appendectomy: No Cardiac Surgery: No Cholecystectomy: No Lung Surgery: No Neurologic Surgery: No Orthopedic Surgery: No - Immunization History Td Vaccination: Yes TDAP Vaccination: Yes Immunization Up to Date: Yes - Suicide/Smoking/Psychosocial Hx Smoking Status: Yes Smoking History: Current every day smoker Years of Tobacco Use: 30 Have you smoked in the past 12 months: Yes Number of Cigarettes Smoked Daily: 10 Cigars Per Day: 0 Information on smoking cessation initiated: No 'Breaking Loose' booklet given: 12/07/13 Hx Alcohol Use: No Drug/Substance Use Hx: No Substance Use Type: None Hx Substance Use Treatment: No Review of Systems - Review of Systems Comments:: 11/26/17 17:22 GENERAL/CONSTITUTIONAL: No fever or chills. No weakness. HEAD, EYES, EARS, NOSE AND THROAT: No change in vision. No sore throat. CARDIOVASCULAR: No chest pain or shortness of breath RESPIRATORY: No cough, wheezing, or hemoptysis. GASTROINTESTINAL: No nausea, vomiting, diarrhea or constipation. GENITOURINARY: No dysuria, frequency, or change in urination. MUSCULOSKELETAL: No joint or muscle swelling or pain. No neck or back pain. SKIN: No rash NEUROLOGIC: No headache, vertigo, loss of consciousness, or change in strength/ sensation. HEMATOLOGIC/LYMPHATIC: No anemia, easy bleeding, or history of blood clots. ALLERGIC/IMMUNOLOGIC: No hives or skin allergy. *Physical Exam - Vital Signs Last Vital Signs Temp Pulse Resp BP Pulse Ox 98.5 F 53 L 20 186/75 96 11/26/17 15:15 11/26/17 15:15 11/26/17 15:15 11/26/17 15:15 11/26/17 15:15 - Physical Exam Comments: 11/26/17 17:25 GENERAL: Awake, alert, and fully oriented, in no acute distress HEAD: No signs of trauma, normocephalic, atraumatic EYES: PERRLA, EOMI, sclera anicteric, conjunctiva clear ENT: Auricles normal inspection, hearing grossly normal, nares patent, oropharynx clear without exudates. Moist mucosa NECK: Normal ROM, supple, no lymphadenopathy, JVD, or masses LUNGS: No distress, speaks full sentences, clear to auscultation bilaterally HEART: Regular rate and rhythm, normal S1 and S2, 2/6 systolic blowing murmur, peripheral pulses normal and equal bilaterally. ABDOMEN: Soft, nontender, normoactive bowel sounds. No guarding, no rebound. No masses EXTREMITIES: 2+ pitting edema to knee, left more than right. No clubbing or cyanosis. NEUROLOGICAL: Cranial nerves II through XII grossly intact. Normal speech, no focal sensorimotor deficits SKIN: Warm, Dry, normal turgor, no rashes or lesions noted. ED Treatment Course - LABORATORY CBC & Chemistry Diagram: 11/26/17 16:42 11/26/17 16:42 - RADIOLOGY Radiology Studies Ordered: Category Date Time Status CHEST X-RAY PORTABLE* [RAD] Stat Radiology 11/26/17 16:38 Ordered DUPLEX VASCUL US-1 LEG [US] Stat Ultrasound 11/26/17 16:40 Ordered Medical Decision Making - Medical Decision Making 11/26/17 17:25 57F with history of afib on eliquis, chf, copd, ckd, dm, htn here today complaining of leg swelling. Vital signs notable for BP 186/75, otherwise stable. PE notable to lower extremity edema, left more than right and blowing systolic murmur. Ultrasound of lungs shows b-lines bilaterally. Believe patient has CHF exacerbation, however, differential diagnosis includes, but is not limited to: DVT, pneumonia, ACS. EKG shows sinus bradycardia with left anterior fascicular block, LVH. No st elevations/depressions. Possible U waves. Normal WA/QRS/QTc intervals. 11/26/17 19:17 Laboratory Tests 11/26/17 11/26/17 11/26/17 16:42 16:42 16:42 WBC 6.8 D Hgb 14.8 D Hct 45.3 H D Plt Count 150 Potassium 3.9 Troponin I < 0.02 B-Natriuretic Peptide 6972.98 H CBC normal. K normal. Trop undetectable. BNP elevated to 7k. DVT US negative. Will admit to hospitalist. 11/26/17 19:29 Admitted to [facility] via [facility]. *DC/Admit/Observation/Transfer Diagnosis at time of Disposition: CHF (congestive heart failure) - Discharge Dispostion Condition at time of disposition: Stable Admit: Yes - Referrals Referrals: Rivera Doe [Primary Care Provider] - - Patient Instructions - Post Discharge Activity
[2017-11-26 17:47] LABS: BASO % 0.8 % (0-2.0); EOS % 1.9 % (0-4.5); HEMATOCRIT 45.3 % (32.4-45.2); HEMOGLOBIN 14.8 GM/dL (10.7-15.3); LYMPH % 23.7 % (8-40); MCHC 32.6 g/dl (32.0-36.0); MEAN PLT VOLUME 9.9 fl (7.5-11.1); MONO % 9.3 % (3.8-10.2); NEUT % 64.3 % (42.8-82.8); PLATELET COUNT 150 K/MM3 (134-434); RBC 5.09 M/mm3 (3.60-5.2); RDW 15.8 % (11.6-15.6); WHITE BLOOD COUNT 6.8 K/mm3 (4.0-10.0)
[2017-11-26 18:17] LABS: ALBUMIN 4.2 g/dl (3.4-5.0); ANION GAP 8 (8-16); BILIRUBIN,TOTAL 0.7 mg/dL (0.2-1.0); BLOOD UREA NITROGEN 15 mg/dL (7-18); CALCIUM 9.6 mg/dL (8.5-10.1); CHLORIDE 97 mmol/L (98-107); CO2 38 mmol/L (21-32); CREATININE 1.2 mg/dL (0.55-1.02); GLUCOSE,RANDOM 132 mg/dL (74-106); MAGNESIUM 2.5 mg/dL (1.8-2.4); POTASSIUM 3.9 mmol/L (3.5-5.1); SGOT/AST 17 U/L (15-37); SGPT/ALT 30 U/L (12-78); SODIUM 143 mmol/L (136-145); TOT PROT 8.6 g/dl (6.4-8.2)
[2017-11-26 18:20] LABS: ALK PHOS 109 U/L (45-117)
--- NOTE | 2017-11-26 19:31 | HP ---
Admitting History and Physical - Primary Care Physician PCP: Rivera Doe - Admission Chief Complaint: Swelling to lower legs History of Present Illness: This is a 57 y/o woman with a past medical history of HTN, Afib (Eliquis), CHF, COPD, DM, CKD. Who presents to the ED with bilateral lower leg swelling x 2-3 days. Patient reports standing on her feet for long periods of time cooking- which she attributes to the swelling. Patient denies SOB, CP, palpitations. Patient denies fever, chills, cough, dizziness, FOX, AP, N/V/D, constipation, dysuria History Source: Patient Limitations to Obtaining History: No Limitations - Past Medical History Cardiovascular: Yes: AFIB, CHF, HTN Pulmonary: Yes: COPD Renal/: Yes: Renal Inusuff (CKD) Endocrine: Yes: Diabetes Mellitus - Smoking History Smoking history: Current every day smoker Have you smoked in the past 12 months: Yes Aproximately how many cigarettes per day: 10 - Alcohol/Substance Use Hx Alcohol Use: No History of Substance Use: reports: None - Social History Usual Living Arrangement: Yes: With Spouse ADL: Independent History of Recent Travel: No Home Medications - Allergies Allergies/Adverse Reactions: Allergies Allergy/AdvReac Type Severity Reaction Status Date / Time tomato [Tomato] Allergy Unknown Verified 11/26/17 15:14 Penicillins Allergy Hives Verified 11/26/17 15:14 chocolate Allergy Unknown Uncoded 11/26/17 15:14 - Home Medications Home Medications: Ambulatory Orders Gabapentin [Neurontin -] 300 mg PO Q6H #21 capsule 07/09/13 Atenolol [Tenormin -] 100 mg PO BID #60 tablet 11/28/15 Bupropion HCl [Wellbutrin Xl -] 150 mg PO DAILY #30 tab.sr.24h 11/28/15 Dabigatran Etexilate Mesylate [Pradaxa -] 150 mg PO BID #60 cap 11/28/15 Diltiazem Cd [Cardizem Cd -] 360 mg PO DAILY #30 cap.cd.24h 11/28/15 hydrOXYzine PAMOATE [Vistaril -] 50 mg PO DAILY #30 capsule 11/28/15 Oxycodone HCl/Acetaminophen [Percocet 10-325 mg Tablet] 1 each PO QID PRN #16 tablet MDD 4 tabs 04/29/16 Acetaminophen [Tylenol .Regular Strength -] 650 mg PO Q6H PRN tablet 08/14/17 Aspirin Coated [Ecotrin -] 81 mg PO DAILY #30 tablet.ec 08/14/17 Furosemide [Lasix -] 40 mg PO BID@0600,1400 #60 tablet 08/14/17 Nicotine Patch [Nicoderm Patch -] 1 patch TD DAILY #30 patch 08/14/17 Home Medications (free text): Eliquis 5mg po QD Family Disease History - Family Disease History Family History: Unable to Obtain Review of Systems - Review of Systems Constitutional: reports: No Symptoms Eyes: reports: No Symptoms HENT: reports: No Symptoms Neck: reports: No Symptoms Cardiovascular: reports: Edema Respiratory: reports: No Symptoms Gastrointestinal: reports: No Symptoms Genitourinary: reports: No Symptoms Breasts: reports: No Symptoms Reported Musculoskeletal: reports: No Symptoms Integumentary: reports: No Symptoms Neurological: reports: No Symptoms Endocrine: reports: No Symptoms Hematology/Lymphatic: reports: No Symptoms Psychiatric: reports: No Symptoms Physical Examination Vital Signs: Vital Signs Temperature 98.5 F 11/26/17 15:15 Pulse Rate 53 L 11/26/17 15:15 Respiratory Rate 20 11/26/17 15:15 Blood Pressure 186/75 11/26/17 15:15 O2 Sat by Pulse Oximetry (%) 96 11/26/17 15:15 Constitutional: Yes: Well Nourished, No Distress, Calm Eyes: Yes: WNL, Conjunctiva Clear, EOM Intact, PERRL HENT: Yes: WNL, Atraumatic, Normocephalic Neck: Yes: WNL, Supple, Trachea Midline Cardiovascular: Yes: Pulse Irregular Respiratory: Yes: On Nasal O2, Rhonchi (base) Gastrointestinal: Yes: WNL, Normal Bowel Sounds, Soft ...Rectal Exam: Yes: WNL Renal/: Yes: WNL Breast(s): Yes: WNL Musculoskeletal: Yes: WNL Extremities: Yes: WNL Edema: Yes Edema: LLE: 1+, RLE: 1+ Peripheral Pulses WNL: Yes Integumentary: Yes: WNL Neurological: Yes: WNL, Alert, Oriented, Cran Nerves II-XII Intact ...Motor Strength: WNL Psychiatric: Yes: WNL, Alert, Oriented Labs: CBC, BMP 11/26/17 16:42 11/26/17 16:42 Laboratory Results - last 24 hr 11/26/17 11/26/17 11/26/17 16:42 16:42 16:42 WBC 6.8 D RBC 5.09 Hgb 14.8 D Hct 45.3 H D MCV 89.0 MCH 29.0 MCHC 32.6 RDW 15.8 H Plt Count 150 MPV 9.9 D Neutrophils % 64.3 Lymphocytes % 23.7 D Monocytes % 9.3 Eosinophils % 1.9 D Basophils % 0.8 D PT with INR 16.10 H INR 1.42 H Sodium 143 Potassium 3.9 Chloride 97 L Carbon Dioxide 38 H Anion Gap 8 BUN 15 Creatinine 1.2 H Creat Clearance w eGFR 45.98 Random Glucose 132 H Calcium 9.6 Magnesium 2.5 H Total Bilirubin 0.7 AST 17 ALT 30 Alkaline Phosphatase 109 Creatine Kinase 57 Troponin I < 0.02 B-Natriuretic Peptide Total Protein 8.6 H Albumin 4.2 11/26/17 16:42 WBC RBC Hgb Hct MCV MCH MCHC RDW Plt Count MPV Neutrophils % Lymphocytes % Monocytes % Eosinophils % Basophils % PT with INR INR Sodium Potassium Chloride Carbon Dioxide Anion Gap BUN Creatinine Creat Clearance w eGFR Random Glucose Calcium Magnesium Total Bilirubin AST ALT Alkaline Phosphatase Creatine Kinase Troponin I B-Natriuretic Peptide 6972.98 H Total Protein Albumin Intake & Output 11/24/17 11/25/17 11/26/17 11/27/17 23:59 23:59 23:59 23:59 Weight 81.647 kg Current Medications Generic Name Dose Route Start Last Admin Trade Name Kaleq PRN Reason Stop Dose Admin Acetaminophen 325 mg 11/26/17 22:47 11/27/17 00:24 Tylenol - PO 325 mg Q6H PRN Administration PAIN LEVEL 6-10 Apixaban 5 mg 11/27/17 00:00 11/27/17 00:24 Eliquis - PO 5 mg BID JOLENE Administration Bupropion HCl 150 mg 11/27/17 10:00 Wellbutrin Xl - PO DAILY JOLENE Furosemide 40 mg 11/27/17 06:00 11/27/17 06:00 Lasix - PO 40 mg BID@0600,1400 JOLENE Administration Gabapentin 300 mg 11/27/17 00:00 11/27/17 06:00 Neurontin - PO 300 mg Q6HPO JOLENE Administration Hydroxyzine Pamoate 50 mg 11/27/17 10:00 Vistaril - PO DAILY JOLENE Nicotine 21 mg 11/27/17 10:00 Nicoderm Patch - TD DAILY JLOENE Oxycodone HCl 10 mg 11/26/17 22:47 11/27/17 00:23 Roxicodone - PO 10 mg Q6H PRN Administration PAIN LEVEL 6-10 Imaging - Results Chest X-ray: Report Reviewed, Image Reviewed Ultrasound: Report Reviewed, Image Reviewed EKG: Report Reviewed, Image Reviewed Problem List - Problems (1) CHF (congestive heart failure) Code(s): I50.9 - HEART FAILURE, UNSPECIFIED (2) Afib Code(s): I48.91 - UNSPECIFIED ATRIAL FIBRILLATION Qualifiers: Atrial fibrillation type: unspecified Qualified Code(s): I48.91 - Unspecified atrial fibrillation (3) Anxiety and depression Code(s): F41.9 - ANXIETY DISORDER, UNSPECIFIED; F32.9 - MAJOR DEPRESSIVE DISORDER, SINGLE EPISODE, UNSPECIFIED (4) Hypertension Code(s): I10 - ESSENTIAL (PRIMARY) HYPERTENSION (5) Leg edema Code(s): R60.0 - LOCALIZED EDEMA (6) COPD (chronic obstructive pulmonary disease) Code(s): J44.9 - CHRONIC OBSTRUCTIVE PULMONARY DISEASE, UNSPECIFIED Qualifiers: COPD type: COPD with acute exacerbation Qualified Code(s): J44.1 - Chronic obstructive pulmonary disease with (acute) exacerbation (7) Hyperlipidemia Code(s): E78.5 - HYPERLIPIDEMIA, UNSPECIFIED (8) DVT prophylaxis Code(s): [id number] - Assessment/Plan This is a 57 y/o woman with a PMHx of: CHF, COPD, Afib (on Eliquis), HTN, DM, CKD. Placed on Observation for CHF Exacerbation. Plan: 1. Acute CHF Exacerbation - Likely Acute on Chronic HF vs DVT - Chest Xray- Cardiomegaly, Pulm vasc congestion - BNP 6972 (baseline) - Wells Score 1 - Duplex of lower legs- neg DVT - Echo (08/13/17) showed- EF 77%, Normal LV size and function, Normal RV size and function, mild MV thickening - Lasix given in ED, will continue - Appreciate Cardiology consult - Strict INOs - Daily weights - Monitor BMP - Monitor vitals 2. CKD - Cr 1.2 (baseline) - Monitor renal function 3. Atrial Fibrillation - EKG: Sinus Bradycardia, left anterior fasicular block - [id number] - Continue Eliquis 4. COPD - Duonebs - O2 - Continue home meds 5. HTN - Monitor BP - Hold home meds for now secondary to Bradycardia - Consider Norvasc to control BP - Appreciate Cardiology input 6. Diabetes Mellitus - BGMs - ISS 7. FEN - Replete lytes prn - Low Na Diet 8. DVT ppx - OOB - SCDs - Continue Eliquis Code Status: Full Code Dispo: Observation Visit type - Emergency Visit Emergency Visit: Yes ED Registration Date: 11/26/17 Care time: The patient presented to the Emergency Department on the above date and was hospitalized for further evaluation of their emergent condition. - New Patient This patient is new to me today: Yes Date on this admission: 11/26/17 - Critical Care Critical Care patient: No Hospitalist Screening - Colonoscopy Questionnaire Colonoscopy Questionnaire: Colonoscopy Questionnaire - Patient: 50 - 75 years old and never had a screening colonoscopy: No History of colon or rectal polyps, or CA: No History of IBD, Crohn's disease or UC: No History of abdominal radiation therapy as a child: No - Relative: 1 with colon or rectal CA, or polyps at age 60 or younger: No Colon or rectal CA diagnosed at age 45 or younger: No Multiple relatives with colon or rectal CA: No - Outcome: Screening Result: Negative Screen
[2017-11-26 20:53] LABS: INR 1.42 (0.82-1.09); PROTHROMBIN TIME (PATIENT) 16.1 SEC (9.98-11.88)
[2017-11-26] MEDS ORDERED: TETANUS AND DIPHTHERIA TOXOID 0.5 ML DISP.SYRIN IM ONE (22:41)
[2017-11-26] MEDS ORDERED: BACITRACIN 0.9 GM PACKET ONE (22:44)
[2017-11-27] MEDS: oxyCODONE HCL 5 MG TABLET PO PRN ×3 (00:23→22:16)
[2017-11-27] MEDS: ACETAMINOPHEN 325 MG TABLET (FP) PO PRN ×3 (00:24→22:15)
[2017-11-27] MEDS: APIXABAN 5 MG TABLET PO SCH ×3 (00:24→22:16)
[2017-11-27] MEDS: GABAPENTIN 300 MG CAPSULE (FP) PO SCH ×5 (00:24→23:11)
[2017-11-27 01:48] VITALS: BMI 31.8
[2017-11-27] MEDS ORDERED: FUROSEMIDE 40 MG TABLET (FP) PO SCH (06:00)
[2017-11-27 07:04] LABS: BASO % 0.7 % (0-2.0); EOS % 2.3 % (0-4.5); HEMOGLOBIN 13.9 GM/dL (10.7-15.3); LYMPH % 35.8 % (8-40); MCH 28.9 pg (25.7-33.7); MCHC 32.4 g/dl (32.0-36.0); MEAN CELL VOLUME 89.2 fl (80-96); MEAN PLT VOLUME 10.3 fl (7.5-11.1); MONO % 11.4 % (3.8-10.2); NEUT % 49.8 % (42.8-82.8); PLATELET COUNT 143 K/MM3 (134-434); RBC 4.82 M/mm3 (3.60-5.2); RDW 15.9 % (11.6-15.6); WHITE BLOOD COUNT 5.7 K/mm3 (4.0-10.0)
[2017-11-27 07:24] LABS: CHLORIDE 99 mmol/L (98-107); POTASSIUM 3.4 mmol/L (3.5-5.1); SODIUM 145 mmol/L (136-145)
[2017-11-27 07:34] LABS: ANION GAP 11 (8-16); BLOOD UREA NITROGEN 15 mg/dL (7-18); CALCIUM 8.9 mg/dL (8.5-10.1); CO2 35 mmol/L (21-32); CREATININE 1.2 mg/dL (0.55-1.02); GLUCOSE,RANDOM 101 mg/dL (74-106)
--- NOTE | 2017-11-27 08:24 | EKG ---
Test Reason : Blood Pressure : / mmHG Vent. Rate : 049 BPM Atrial Rate : 049 BPM P-R Int : 152 ms QRS Dur : 106 ms QT Int : 516 ms P-R-T Axes : 019 -51 076 degrees QTc Int : 466 ms SINUS BRADYCARDIA LEFT ANTERIOR FASCICULAR BLOCK LEFT VENTRICULAR HYPERTROPHY WITH REPOLARIZATION ABNORMALITY ABNORMAL ECG WHEN COMPARED WITH ECG OF 13-AUG-2017 14:25, INVERTED T WAVES HAVE REPLACED NONSPECIFIC T WAVE ABNORMALITY IN LATERAL LEADS Confirmed by CLIFF MCDANIEL, BELLA ([id number]) on 11/27/2017 8:23:55 AM Referred By: Confirmed By:BELLA CORONADO MD
[2017-11-27] MEDS: NICOTINE 21 MG/24 HOURS TOPICAL PATCH TD SCH (10:02)
[2017-11-27] MEDS ORDERED: PT OWN MED DRAWER 7, Y5N ONE ×2 (10:04→17:52)
[2017-11-27] MEDS: hydrOXYzine PAMOATE 50 MG CAPSULE (FP) PO SCH (12:55)
--- NOTE | 2017-11-27 13:11 | PN ---
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, Physician Chief Complaint: patient seen and examined came in for bilateral leg swelling - Current Medication List Current Medications: Active Medications Acetaminophen (Tylenol -) 325 mg PO Q6H PRN PRN Reason: PAIN LEVEL 6-10 Last Admin: 11/27/17 10:16 Dose: 325 mg Apixaban (Eliquis -) 5 mg PO BID [facility] Last Admin: 11/27/17 10:02 Dose: 5 mg Bupropion HCl (Wellbutrin Xl -) 150 mg PO DAILY [facility] Last Admin: 11/27/17 12:55 Dose: 150 mg Furosemide (Lasix -) 40 mg PO BID@0600,1400 [facility] Last Admin: 11/27/17 06:00 Dose: 40 mg Furosemide (Lasix Injection -) 40 mg IVPUSH BID@0600,1400 [facility] Gabapentin (Neurontin -) 300 mg PO Q6HPO [facility] Last Admin: 11/27/17 12:59 Dose: 300 mg Hydroxyzine Pamoate (Vistaril -) 50 mg PO DAILY [facility] Last Admin: 11/27/17 12:55 Dose: 50 mg Nicotine (Nicoderm Patch -) 21 mg TD DAILY [facility] Last Admin: 11/27/17 10:02 Dose: Not Given Oxycodone HCl (Roxicodone -) 10 mg PO Q6H PRN PRN Reason: PAIN LEVEL 6-10 Last Admin: 11/27/17 10:15 Dose: 10 mg - Objective Vital Signs: Vital Signs Temperature 98.8 F 11/27/17 09:14 Pulse Rate 82 11/27/17 09:14 Respiratory Rate 18 11/27/17 09:14 Blood Pressure 155/84 11/27/17 09:14 O2 Sat by Pulse Oximetry (%) 94 L 11/26/17 23:15 Constitutional: Yes: Calm Cardiovascular: Yes: Regular Rate and Rhythm, Murmur, S1, S2 Respiratory: Yes: Diminished (at bases) Gastrointestinal: Yes: Normal Bowel Sounds, Soft Edema: Yes Edema: LLE: 2+, RLE: 2+ Psychiatric: Yes: Alert, Oriented Labs: CBC, BMP 11/27/17 05:35 11/27/17 05:35 INR, PTT INR 1.42 (0.82-1.09) H 11/26/17 16:42 Problem List - Problems (1) CHF (congestive heart failure) Assessment/Plan: daily weight iv lasix bid elevated BNP cxr with congestion oxygen repeat cxr in am, Code(s): I50.9 - HEART FAILURE, UNSPECIFIED (2) Afib Assessment/Plan: eliquis BB held given bradycardia currently rate controlled so cardizem held as well will have cardiology see patient Code(s): I48.91 - UNSPECIFIED ATRIAL FIBRILLATION Qualifiers: Atrial fibrillation type: unspecified Qualified Code(s): I48.91 - Unspecified atrial fibrillation (3) Anxiety and depression Assessment/Plan: eliana recinos Code(s): F41.9 - ANXIETY DISORDER, UNSPECIFIED; F32.9 - MAJOR DEPRESSIVE DISORDER, SINGLE EPISODE, UNSPECIFIED
--- NOTE | 2017-11-27 13:50 | CON.CARD ---
Consult Consult Specialty:: Cardiology Reason for Consultation:: Edema - History of Present Illness History of Present Illness: 57 y/o woman with a past medical history of HTN, Afib (Eliquis), CHF, COPD, DM, CKD. Admitted with lower leg swelling x 2-3 days. Patient reports standing on her feet for long periods of time cooking- which she attributes to the swelling. Patient denies SOB, CP, palpitations. There has been prior admissions for CHF at [facility]. THere is no prior known history of CAD. An echocardiogram 08/2017 showed normal LV function without valvular pathology. - History Source History Provided By: Patient, Medical Record Limitations to Obtaining History: No Limitations - Past Medical History Cardio/Vascular: Yes: AFIB, CHF, HTN Pulmonary: Yes: COPD Renal/: Yes: Renal Inusuff (CKD) Endocrine: Yes: Diabetes Mellitus - Alcohol/Substance Use Hx Alcohol Use: No History of Substance Use: reports: None - Smoking History Smoking history: Current every day smoker Have you smoked in the past 12 months: Yes Aproximately how many cigarettes per day: 10 - Social History Usual Living Arrangement: With Spouse (and two grand children) ADL: Independent History of Recent Travel: No Home Medications - Allergies Allergies/Adverse Reactions: Allergies Allergy/AdvReac Type Severity Reaction Status Date / Time tomato [Tomato] Allergy Unknown Verified 11/26/17 15:14 Penicillins Allergy Hives Verified 11/26/17 15:14 chocolate Allergy Unknown Uncoded 11/26/17 15:14 - Home Medications Home Medications: Ambulatory Orders Gabapentin [Neurontin -] 300 mg PO Q6H #21 capsule 07/09/13 Atenolol [Tenormin -] 100 mg PO BID #60 tablet 11/28/15 Bupropion HCl [Wellbutrin Xl -] 150 mg PO DAILY #30 tab.sr.24h 11/28/15 Dabigatran Etexilate Mesylate [Pradaxa -] 150 mg PO BID #60 cap 11/28/15 Diltiazem Cd [Cardizem Cd -] 360 mg PO DAILY #30 cap.cd.24h 11/28/15 hydrOXYzine PAMOATE [Vistaril -] 50 mg PO DAILY #30 capsule 11/28/15 Oxycodone HCl/Acetaminophen [Percocet 10-325 mg Tablet] 1 each PO QID PRN #16 tablet MDD 4 tabs 04/29/16 Acetaminophen [Tylenol .Regular Strength -] 650 mg PO Q6H PRN tablet 08/14/17 Aspirin Coated [Ecotrin -] 81 mg PO DAILY #30 tablet.ec 08/14/17 Furosemide [Lasix -] 40 mg PO BID@0600,1400 #60 tablet 08/14/17 Nicotine Patch [Nicoderm Patch -] 1 patch TD DAILY #30 patch 08/14/17 Review of Systems - Review of Systems Constitutional: reports: No Symptoms. denies: Chills, Fever, Lethargy Eyes: reports: No Symptoms HENT: reports: No Symptoms Neck: reports: No Symptoms Cardiovascular: reports: Edema. denies: Chest Pain, Palpitations, Shortness of Breath Respiratory: reports: Exercise Intolerance. denies: Cough, Orthopnea, PND Gastrointestinal: reports: No Symptoms Vital Signs: Vital Signs Temperature 98.8 F 11/27/17 09:14 Pulse Rate 82 11/27/17 09:14 Respiratory Rate 18 11/27/17 09:14 Blood Pressure 155/84 11/27/17 09:14 O2 Sat by Pulse Oximetry (%) 94 L 11/26/17 23:15 Constitutional: Yes: Well Nourished, No Distress Eyes: Yes: Conjunctiva Clear, EOM Intact HENT: Yes: Atraumatic, Normocephalic Neck: Yes: Supple, Trachea Midline Respiratory: Yes: Regular, CTA Bilaterally Gastrointestinal: Yes: Normal Bowel Sounds Cardiovascular: Yes: Regular Rate and Rhythm JVD: No Carotid Bruit: No Heart Sounds: Yes: S2 Murmur: No: Systolic Murmur, Diastolic Murmur Edema: Yes Edema: LLE: 1+, RLE: 1+ Neurological: Yes: Alert, Oriented - Other Data Labs, Other Data: CBC, BMP 11/27/17 05:35 11/27/17 05:35 INR, PTT INR 1.42 (0.82-1.09) H 11/26/17 16:42 Troponin, BNP 11/26/17 11/26/17 11/27/17 16:42 16:42 05:35 Troponin I < 0.02 0.03 B-Natriuretic Peptide 6972.98 H 11/27/17 11/27/17 05:35 11:45 Troponin I Cancelled 0.03 B-Natriuretic Peptide Troponin, BNP 11/26/17 11/26/17 11/27/17 16:42 16:42 05:35 Troponin I < 0.02 0.03 B-Natriuretic Peptide 6972.98 H 11/27/17 11/27/17 05:35 11:45 Troponin I Cancelled 0.03 B-Natriuretic Peptide NSR AHB LVH no STT changes. Echo: Report Reviewed Imaging - Results Chest X-ray: Report Reviewed (mildly increased interstitial markings. CMG) Problem List - Problems (1) CHF (congestive heart failure) Code(s): I50.9 - HEART FAILURE, UNSPECIFIED (2) Afib Code(s): I48.91 - UNSPECIFIED ATRIAL FIBRILLATION Qualifiers: Atrial fibrillation type: unspecified Qualified Code(s): I48.91 - Unspecified atrial fibrillation (3) Hypertension Code(s): I10 - ESSENTIAL (PRIMARY) HYPERTENSION Assessment/Plan 57 F with COPD, current smoker with previous history of HfPEF exacerbation. She has DM and HTN. An echocardiogram in August showed normal LV function. Perhaps mild heart failure with preserved EF. * BP control. Goal BP <140/80. Adjust BP medications as needed for this. * Can transition to oral diuretics at a higher dose Can consider lasix 40mg daily or bid. * No need to repeat echocardiogram. Will see as needed.
[2017-11-27] MEDS: FUROSEMIDE 40 MG/4 ML INJECTABLE VIAL IVPUSH SCH (14:49)
[2017-11-27] MEDS ORDERED: POTASSIUM CHLORIDE TABS 20 MEQ TABLET.ER (FP) PO ONE (18:01)
[2017-11-28] MEDS: GABAPENTIN 300 MG CAPSULE (FP) PO SCH ×3 (06:16→17:39)
[2017-11-28] MEDS: FUROSEMIDE 40 MG/4 ML INJECTABLE VIAL IVPUSH SCH ×2 (06:16→13:14)
[2017-11-28 07:27] LABS: BASO % 0.7 % (0-2.0); HEMATOCRIT 43.5 % (32.4-45.2); LYMPH % 32.3 % (8-40); MCH 28.9 pg (25.7-33.7); MCHC 32.1 g/dl (32.0-36.0); MEAN CELL VOLUME 89.9 fl (80-96); MEAN PLT VOLUME 10.4 fl (7.5-11.1); MONO % 10.8 % (3.8-10.2); NEUT % 54.2 % (42.8-82.8); PLATELET COUNT 152 K/MM3 (134-434); RBC 4.84 M/mm3 (3.60-5.2); RDW 16.2 % (11.6-15.6); WHITE BLOOD COUNT 6.5 K/mm3 (4.0-10.0)
[2017-11-28 08:24] LABS: ALBUMIN 3.3 g/dl (3.4-5.0); ANION GAP 9 (8-16); BLOOD UREA NITROGEN 20 mg/dL (7-18); CALCIUM 8.7 mg/dL (8.5-10.1); CHLORIDE 100 mmol/L (98-107); CO2 36 mmol/L (21-32); GLUCOSE,RANDOM 94 mg/dL (74-106); POTASSIUM 3.5 mmol/L (3.5-5.1); SODIUM 145 mmol/L (136-145)
[2017-11-28 08:29] LABS: ALK PHOS 88 U/L (45-117); BILIRUBIN,TOTAL 0.6 mg/dL (0.2-1.0); CREATININE 1.4 mg/dL (0.55-1.02); SGOT/AST 13 U/L (15-37); SGPT/ALT 18 U/L (12-78); TOT PROT 7.3 g/dl (6.4-8.2)
[2017-11-28] MEDS ORDERED: PT OWN MED DRAWER 7, Y5N ONE (10:34)
[2017-11-28] MEDS: NICOTINE 21 MG/24 HOURS TOPICAL PATCH TD SCH (10:42)
[2017-11-28] MEDS: ACETAMINOPHEN 325 MG TABLET (FP) PO PRN ×3 (10:44→22:31)
[2017-11-28] MEDS: hydrOXYzine PAMOATE 50 MG CAPSULE (FP) PO SCH (10:44)
[2017-11-28] MEDS: oxyCODONE HCL 5 MG TABLET PO PRN ×3 (10:44→22:32)
[2017-11-28] MEDS: APIXABAN 5 MG TABLET PO SCH ×2 (10:44→22:31)
--- NOTE | 2017-11-28 10:59 | PN ---
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, Physician Chief Complaint: SOB, CHF exacerbation History of Present Illness: NAD, no SOB O2 dependent at home BP meds were being held due to bradycardia, seen by cardiology Adjust dosage for atenolol and Cardizem - Current Medication List Current Medications: Active Medications Acetaminophen (Tylenol -) 325 mg PO Q6H PRN PRN Reason: PAIN LEVEL 6-10 Last Admin: 11/28/17 10:44 Dose: 325 mg Apixaban (Eliquis -) 5 mg PO BID [facility] Last Admin: 11/28/17 10:44 Dose: 5 mg Atenolol (Tenormin -) 25 mg PO BID [facility] Bupropion HCl (Wellbutrin Xl -) 150 mg PO DAILY [facility] Last Admin: 11/28/17 10:44 Dose: 150 mg Furosemide (Lasix Injection -) 40 mg IVPUSH BID@0600,1400 [facility] Stop: 11/29/17 11:00 Last Admin: 11/28/17 06:16 Dose: 40 mg Furosemide (Lasix -) 40 mg PO BID@0600,1400 [facility] Gabapentin (Neurontin -) 300 mg PO Q6HPO [facility] Last Admin: 11/28/17 06:16 Dose: 300 mg Hydroxyzine Pamoate (Vistaril -) 50 mg PO DAILY [facility] Last Admin: 11/28/17 10:44 Dose: 50 mg Nicotine (Nicoderm Patch -) 21 mg TD DAILY [facility] Last Admin: 11/28/17 10:42 Dose: Not Given Oxycodone HCl (Roxicodone -) 10 mg PO Q6H PRN PRN Reason: PAIN LEVEL 6-10 Last Admin: 11/28/17 10:44 Dose: 10 mg - Objective Vital Signs: Vital Signs Temperature 98.3 F 11/28/17 07:07 Pulse Rate 75 11/28/17 07:07 Respiratory Rate 20 11/28/17 07:07 Blood Pressure 160/94 11/28/17 07:07 O2 Sat by Pulse Oximetry (%) 94 L 11/28/17 03:00 Constitutional: Yes: Well Nourished, No Distress, Calm Cardiovascular: Yes: Pulse Irregular Respiratory: Yes: Regular Gastrointestinal: Yes: Normal Bowel Sounds, Soft Musculoskeletal: Yes: WNL Extremities: Yes: WNL Edema: Yes Edema: LLE: Trace, RLE: Trace Peripheral Pulses WNL: Yes Wound/Incision: Yes: Open to air (Left castrejon abrasion, dry) Neurological: Yes: Alert, Oriented Psychiatric: Yes: Alert, Oriented Labs: CBC, BMP 11/28/17 06:30 11/28/17 06:30 INR, PTT INR 1.42 (0.82-1.09) H 11/26/17 16:42 Problem List - Problems (1) CHF exacerbation Assessment/Plan: -Continue IV lasix today, change to PO tomorrow -Restart atenolol at 25 mg po BID -Hold cardizem for now as rate is still in upper 60's -Nasal O2 as needed, keep Spo2>90%, O2 dependent at home -Encouraged to ambulate, self ambulatory at home -Improved BLLE edema, LOUIS's BLLE Code(s): I50.9 - HEART FAILURE, UNSPECIFIED (2) Atrial fibrillation with rapid ventricular response Assessment/Plan: -rate controlled -Eliquis -seen by Cardiology Code(s): I48.91 - UNSPECIFIED ATRIAL FIBRILLATION (3) COPD (chronic obstructive pulmonary disease) Assessment/Plan: -Nasal o2, keep Spo2> 90%, has O2 at home -no SOB at this time Code(s): J44.9 - CHRONIC OBSTRUCTIVE PULMONARY DISEASE, UNSPECIFIED Qualifiers: COPD type: COPD with acute exacerbation Qualified Code(s): J44.1 - Chronic obstructive pulmonary disease with (acute) exacerbation (4) Diabetes Assessment/Plan: -Last A1c 7.2, recheck A1c now -not on any pharmacotherapy for diabetes at this time -change diet to low sodium/diabetic diet. -No BGM's at this time or insulin coverage until A1c returns Code(s): E11.9 - TYPE 2 DIABETES MELLITUS WITHOUT COMPLICATIONS Assessment/Plan see problem list
[2017-11-28] MEDS: ATENOLOL 25 MG TABLET (FP) PO SCH ×2 (13:14→22:31)
[2017-11-28] MEDS: BACITRACIN 15 GM TUBE TOPICAL OINTMENT TP SCH (13:14)
[2017-11-28] MEDS ORDERED: ATENOLOL 25 MG TABLET (FP) PO ONE (22:48)
[2017-11-29] MEDS: GABAPENTIN 300 MG CAPSULE (FP) PO SCH ×4 (02:26→18:57)
[2017-11-29] MEDS ORDERED: ATENOLOL 50 MG TABLET (FP) PO SCH (02:30)
[2017-11-29] MEDS ORDERED: ATENOLOL 25 MG TABLET (FP) PO ONE (02:30)
[2017-11-29] MEDS: FUROSEMIDE 40 MG/4 ML INJECTABLE VIAL IVPUSH SCH (05:58)
[2017-11-29] MEDS ORDERED: hydrALAZINE HCL 10 MG TABLET PO ONE (07:00)
[2017-11-29] MEDS: oxyCODONE HCL 5 MG TABLET PO PRN ×3 (07:02→18:57)
[2017-11-29] MEDS: ACETAMINOPHEN 325 MG TABLET (FP) PO PRN ×3 (07:02→18:57)
[2017-11-29] MEDS ORDERED: PT OWN MED DRAWER 7, Y5N ONE (09:05)
[2017-11-29] MEDS: NICOTINE 21 MG/24 HOURS TOPICAL PATCH TD SCH (09:06)
[2017-11-29] MEDS: APIXABAN 5 MG TABLET PO SCH ×2 (09:06→22:33)
[2017-11-29] MEDS: hydrOXYzine PAMOATE 50 MG CAPSULE (FP) PO SCH (09:06)
[2017-11-29] MEDS: ATENOLOL 50 MG TABLET (FP) PO SCH ×2 (09:06→22:33)
[2017-11-29] MEDS: BACITRACIN 15 GM TUBE TOPICAL OINTMENT TP SCH (09:07)
[2017-11-29] MEDS: FUROSEMIDE 40 MG TABLET (FP) PO SCH (13:06)
--- NOTE | 2017-11-29 14:59 | PN ---
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, Physician Chief Complaint: SOB, CHF exacerbation History of Present Illness: NAD, no SOB, wants to go home O2 dependent at home BP meds were being held due to bradycardia, seen by cardiology Cardizem still on hold Atenolol started 50 mg BID, BP still elevated with Bradycardia On Furosemide 40 mg BID Would defer to Cardiology to adjust medications - Current Medication List Current Medications: Active Medications Acetaminophen (Tylenol -) 325 mg PO Q6H PRN PRN Reason: PAIN LEVEL 6-10 Last Admin: 11/29/17 13:06 Dose: 325 mg Apixaban (Eliquis -) 5 mg PO BID [facility] Last Admin: 11/29/17 09:06 Dose: 5 mg Atenolol (Tenormin -) 50 mg PO BID [facility] Last Admin: 11/29/17 09:06 Dose: 50 mg Bacitracin (Bacitracin -) 1 applic TP DAILY [facility] Last Admin: 11/29/17 09:07 Dose: 1 applic Bupropion HCl (Wellbutrin Xl -) 150 mg PO DAILY [facility] Last Admin: 11/29/17 09:06 Dose: 150 mg Furosemide (Lasix -) 40 mg PO BID@0600,1400 [facility] Last Admin: 11/29/17 13:06 Dose: 40 mg Gabapentin (Neurontin -) 300 mg PO Q6HPO [facility] Last Admin: 11/29/17 11:07 Dose: 300 mg Hydroxyzine Pamoate (Vistaril -) 50 mg PO DAILY [facility] Last Admin: 11/29/17 09:06 Dose: 50 mg Nicotine (Nicoderm Patch -) 21 mg TD DAILY [facility] Last Admin: 11/29/17 09:06 Dose: Not Given Oxycodone HCl (Roxicodone -) 10 mg PO Q6H PRN PRN Reason: PAIN LEVEL 6-10 Last Admin: 11/29/17 13:06 Dose: 10 mg - Objective Vital Signs: Vital Signs Temperature 98.5 F 11/29/17 09:53 Pulse Rate 58 L 11/29/17 11:12 Respiratory Rate 16 11/29/17 09:53 Blood Pressure 178/87 11/29/17 11:12 O2 Sat by Pulse Oximetry (%) 90 L 11/29/17 11:00 Constitutional: Yes: Well Nourished, No Distress, Calm Cardiovascular: Yes: Pulse Irregular Respiratory: Yes: Regular Musculoskeletal: Yes: WNL Extremities: Yes: WNL Edema: Yes Edema: LLE: Trace, RLE: Trace Peripheral Pulses WNL: Yes Neurological: Yes: Alert, Oriented Psychiatric: Yes: Alert, Oriented Labs: CBC, BMP 11/28/17 06:30 11/28/17 06:30 INR, PTT INR 1.42 (0.82-1.09) H 11/26/17 16:42 Problem List - Problems (1) CHF exacerbation Assessment/Plan: -Continue PO lasix -atenolol at 50 mg po BID -Hold cardizem for now as rate is in 50's -Nasal O2 as needed, keep Spo2>90%, O2 dependent at home -Encouraged to ambulate, self ambulatory at home -Improved BLLE edema, LOUIS's BLLE Code(s): I50.9 - HEART FAILURE, UNSPECIFIED (2) Atrial fibrillation with rapid ventricular response Assessment/Plan: -rate controlled -Eliquis -seen by Cardiology Code(s): I48.91 - UNSPECIFIED ATRIAL FIBRILLATION (3) COPD (chronic obstructive pulmonary disease) Assessment/Plan: -Nasal o2, keep Spo2> 90%, has O2 at home -no SOB at this time Code(s): J44.9 - CHRONIC OBSTRUCTIVE PULMONARY DISEASE, UNSPECIFIED Qualifiers: COPD type: COPD with acute exacerbation Qualified Code(s): J44.1 - Chronic obstructive pulmonary disease with (acute) exacerbation (4) Diabetes Assessment/Plan: -Last A1c 7.2, recheck 6.9 -Tradjenta restarted -low sodium/diabetic diet. -No BGM's necessary Code(s): E11.9 - TYPE 2 DIABETES MELLITUS WITHOUT COMPLICATIONS (5) Hypertension Assessment/Plan: -Cardizem and atenolol on hold upon admission for bradycardia -restarted atenolol at 25 mg bid with still elevated BP---> increased to 50 mg with BP still not at goal but with bradycardia. -Started on Norvasc 5 mg po daily by cardiology Code(s): I10 - ESSENTIAL (PRIMARY) HYPERTENSION Assessment/Plan see problem list Pt wanted to sign AMA, risks explained, but has chosen to stay for now until BP is better controlled.
[2017-11-29] MEDS: amLODIPine BESYLATE 5 MG TABLET (FP) PO SCH (16:08)
[2017-11-30] MEDS: ACETAMINOPHEN 325 MG TABLET (FP) PO PRN ×3 (00:39→12:36)
[2017-11-30] MEDS: oxyCODONE HCL 5 MG TABLET PO PRN ×3 (00:39→12:35)
[2017-11-30] MEDS: GABAPENTIN 300 MG CAPSULE (FP) PO SCH ×3 (00:40→12:35)
[2017-11-30] MEDS: FUROSEMIDE 40 MG TABLET (FP) PO SCH (06:35)
[2017-11-30] MEDS ORDERED: sitaGLIPtin PHOSPHATE 50 MG TABLET PO SCH (07:00)
[2017-11-30] MEDS ORDERED: PT OWN MED DRAWER 7, Y5N ONE (10:54)
[2017-11-30] MEDS: BACITRACIN 15 GM TUBE TOPICAL OINTMENT TP SCH (11:21)
[2017-11-30] MEDS: NICOTINE 21 MG/24 HOURS TOPICAL PATCH TD SCH (11:21)
[2017-11-30] MEDS: amLODIPine BESYLATE 5 MG TABLET (FP) PO SCH (11:22)
[2017-11-30] MEDS: ATENOLOL 50 MG TABLET (FP) PO SCH (11:22)
[2017-11-30] MEDS: hydrOXYzine PAMOATE 50 MG CAPSULE (FP) PO SCH (11:23)
[2017-11-30] MEDS: APIXABAN 5 MG TABLET PO SCH (11:24)
--- NOTE | 2017-11-30 12:16 | PN ---
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, Physician Chief Complaint: SOB, CHF exacerbation History of Present Illness: NAD, no SOB, wants to go home O2 dependent at home BP meds were being held due to bradycardia, seen by cardiology Martha still on hold Atenolol started 50 mg BID, BP still elevated with Bradycardia On Furosemide 40 mg BID Was started on Norvasc 5 mg po daily, BP not optimal but improved. - Current Medication List Current Medications: Active Medications Acetaminophen (Tylenol -) 325 mg PO Q6H PRN PRN Reason: PAIN LEVEL 6-10 Last Admin: 11/30/17 06:35 Dose: 325 mg Amlodipine Besylate (Norvasc -) 5 mg PO DAILY [facility] Last Admin: 11/30/17 11:22 Dose: 5 mg Apixaban (Eliquis -) 5 mg PO BID [facility] Last Admin: 11/30/17 11:24 Dose: 5 mg Atenolol (Tenormin -) 50 mg PO BID [facility] Last Admin: 11/30/17 11:22 Dose: 50 mg Bacitracin (Bacitracin -) 1 applic TP DAILY [facility] Last Admin: 11/30/17 11:21 Dose: 1 applic Bupropion HCl (Wellbutrin Xl -) 150 mg PO DAILY [facility] Last Admin: 11/30/17 11:23 Dose: 150 mg Furosemide (Lasix -) 40 mg PO BID@0600,1400 [facility] Last Admin: 11/30/17 06:35 Dose: 40 mg Gabapentin (Neurontin -) 300 mg PO Q6HPO [facility] Last Admin: 11/30/17 06:35 Dose: 300 mg Hydroxyzine Pamoate (Vistaril -) 50 mg PO DAILY [facility] Last Admin: 11/30/17 11:23 Dose: 50 mg Nicotine (Nicoderm Patch -) 21 mg TD DAILY [facility] Last Admin: 11/30/17 11:21 Dose: Not Given Oxycodone HCl (Roxicodone -) 10 mg PO Q6H PRN PRN Reason: PAIN LEVEL 6-10 Last Admin: 11/30/17 06:34 Dose: 10 mg Sitagliptin Phosphate (Januvia -) 50 mg PO DAILY@0700 [facility] Last Admin: 11/30/17 06:34 Dose: 50 mg - Objective Vital Signs: Vital Signs Temperature 97.9 F 11/30/17 06:00 Pulse Rate 50 L 11/30/17 06:00 Respiratory Rate 20 11/30/17 06:00 Blood Pressure 158/73 11/30/17 06:00 O2 Sat by Pulse Oximetry (%) 90 L 11/30/17 03:00 Constitutional: Yes: Well Nourished, Calm, Anxious Cardiovascular: Yes: Regular Rate and Rhythm Respiratory: Yes: Regular Gastrointestinal: Yes: Normal Bowel Sounds, Soft Musculoskeletal: Yes: WNL Extremities: Yes: WNL Edema: No Peripheral Pulses WNL: Yes Neurological: Yes: Alert, Oriented Psychiatric: Yes: Alert, Oriented Labs: CBC, BMP 11/28/17 06:30 11/28/17 06:30 INR, PTT INR 1.42 (0.82-1.09) H 11/26/17 16:42 Problem List - Problems (1) CHF exacerbation Assessment/Plan: -Continue PO lasix 40 mg po BID -atenolol at 50 mg po BID -D/C Cardizem -Nasal O2 as needed, keep Spo2>90%, O2 dependent at home -Encouraged to ambulate, self ambulatory at home -Improved BLLE edema, [place]IS's BLLE Code(s): I50.9 - HEART FAILURE, UNSPECIFIED (2) Atrial fibrillation with rapid ventricular response Assessment/Plan: -rate controlled -Eliquis inpatient, take Pradaxa at home, instructed to continue -seen by Cardiology Code(s): I48.91 - UNSPECIFIED ATRIAL FIBRILLATION (3) COPD (chronic obstructive pulmonary disease) Assessment/Plan: -Nasal o2, keep Spo2> 90%, has O2 at home -no SOB at this time Code(s): J44.9 - CHRONIC OBSTRUCTIVE PULMONARY DISEASE, UNSPECIFIED Qualifiers: COPD type: COPD with acute exacerbation Qualified Code(s): J44.1 - Chronic obstructive pulmonary disease with (acute) exacerbation (4) Diabetes Assessment/Plan: -Last A1c 7.2, recheck 6.9 -Tradjenta restarted -low sodium/diabetic diet. -No BGM's necessary -Endocrinology follow up outpatient Code(s): E11.9 - TYPE 2 DIABETES MELLITUS WITHOUT COMPLICATIONS (5) Hypertension Assessment/Plan: -Cardizem and atenolol on hold upon admission for bradycardia -D/C Cardizem -restarted atenolol at 25 mg bid with still elevated BP---> increased to 50 mg with BP still not at goal but with bradycardia. -Started on Norvasc 5 mg po daily by cardiology, BP improved but not optimal, goal SBP below 140 mm Hg -Follow up with cardiology outpatient Code(s): I10 - ESSENTIAL (PRIMARY) HYPERTENSION Assessment/Plan see problem list
[2017-11-30 13:40] VITALS: BP 146/81; PULSE 62; TEMP 98
== END 2017-11-30 13:59 | disposition home or self-care (01) ==
LOC: JER 15:05 → JERBED 19:28 → UNDOADMOB 22:02 → INTOOBSV 22:02 → JERBED 22:02 → J8W 23:55
PROVIDERS: ADMIT Internal Medicine; ATTEND Family Medicine
PROC: 3E033GC Introduction of Other Therapeutic Substance into Peripheral Vein, Percutaneous Approach (ICD-10-PCS; principal; 2017-11-26)
PROC: 3E0234Z Introduction of Serum, Toxoid and Vaccine into Muscle, Percutaneous Approach (ICD-10-PCS; 2017-11-26)
DX: I50.9 Heart failure, unspecified (principal); I48.91 Unspecified atrial fibrillation; I12.9 Hypertensive chronic kidney disease with stage 1 through stage 4 chronic kidney disease, or unspecified chronic kidney disease; I51.7 Cardiomegaly; E11.22 Type 2 diabetes mellitus with diabetic chronic kidney disease; E78.5 Hyperlipidemia, unspecified; N18.9 Chronic kidney disease, unspecified; F41.9 Anxiety disorder, unspecified; F32.9 Major depressive disorder, single episode, unspecified; F17.210 Nicotine dependence, cigarettes, uncomplicated; R60.0 Localized edema; J44.9 Chronic obstructive pulmonary disease, unspecified; R79.89 Other specified abnormal findings of blood chemistry; R00.1 Bradycardia, unspecified; Z88.8 Allergy status to other drugs, medicaments and biological substances; Z79.01 Long term (current) use of anticoagulants; Z91.018 Allergy to other foods; Z79.82 Long term (current) use of aspirin
CPT/HCPCS: 36415; 71045-TC-FY; 71046-TC-FY; 80048; 80053; 82550; 83036; 83735; 83880; 84484; 85025; 85610; 90471; 93005; 93010; 93971-TC; 96374; 96376; 99284-25; G0378

== ENCOUNTER 2018-05-04 15:06 | Emergency (ER) | payer OTHER ==
[2018-05-04 15:15] VITALS: BMI 31.3
--- NOTE | 2018-05-04 15:28 | PDOC ---
History of Present Illness - General Chief Complaint: Chronic pain Stated Complaint: PAIN Time Seen by Provider: 05/04/18 15:25 History Source: Patient Exam Limitations: No Limitations - History of Present Illness Initial Comments: 05/04/18 19:02 Ms. Soto is a 57 yo F with a hx of CHF, COPD, Afib on eliquis, DM, sciatica , and arthritis (osteo) that presents to the emergency department with acute on chronic leg pain on the left side radiating from the left lower back to the left ankle with concurrent left knee pain exacerbation. She states this began this morning and was unable to walk and the pain was 10/10 constant and felt like a "stabbing" pain. She states she ran out of her pain medications, which includes 10s percocet that she is prescribed every 2 months as well as an epidural every 2 months. She is unsure who her pain management physician is. She ran out because "rain makes me use more percocet for the pain". States that tylenol does not help with the pain and she is unable to take NSAIDs. Denies the following: fever, headaches, recent visual changes, chest pain, SOB, abdominal pain, dysuria, hematuria, FND, nausea, vomiting, diarrhea, leg swelling, and paresthesia. Denies mechanical fall. Pmhx: Refer to above Shx: 1982 had a plate placed in the left knee.] Allergies: PCN Social: Denies smoking, alcohol, and drug use. Past History - Past Medical History Allergies/Adverse Reactions: Allergies Allergy/AdvReac Type Severity Reaction Status Date / Time morphine Allergy Severe Verified 05/04/18 16:36 Penicillins Allergy Severe Hives Verified 05/04/18 15:29 tomato [Tomato] Allergy Unknown Verified 05/04/18 15:29 chocolate AdvReac Unknown Uncoded 05/04/18 15:29 Home Medications: Ambulatory Orders Bupropion HCl [Wellbutrin Xl -] 150 mg PO DAILY #30 tab.sr.24h 11/28/15 Aspirin Coated [Ecotrin -] 81 mg PO DAILY #30 tablet.ec 08/14/17 Furosemide [Lasix -] 40 mg PO BID@0600,1400 #60 tablet 08/14/17 Linagliptin [Tradjenta] 5 mg PO DAILY 11/28/17 Oxycodone HCl/Acetaminophen [Percocet 10-325 mg Tablet] 1 each PO Q6H 03/27/18 Apixaban [Eliquis] 5 mg PO BID 03/28/18 Gabapentin [Neurontin -] 300 mg PO TID 03/29/18 hydrOXYzine PAMOATE [Vistaril -] 50 mg PO HS 03/29/18 Albuterol 0.083% Nebulizer Gladis [Ventolin 0.083% Nebulizer Soln -] 1 amp NEB Q4H PRN #120 amp 03/30/18 Aspirin [ASA -] 81 mg PO DAILY tab.chew 03/30/18 Atenolol [Tenormin -] 25 mg PO BID #60 tablet 03/30/18 Budesonide/Formeterol Fumarate [SYMBICORT 160/4.5mcg -] 2 puff IH BID #2 inhaler 03/30/18 Docusate Sodium [Colace -] 300 mg PO HS #90 capsule 03/30/18 Guaifenesin [Robitussin -] 10 ml PO Q6H PRN #500 cup 03/30/18 Cyclobenzaprine HCl 5 mg PO TID PRN #21 tablet 05/04/18 Lidocaine 5% Patch [Lidoderm Patch -] 1 patch TP DAILY #7 patch 05/04/18 Anemia: No Asthma: Yes Cancer: No Cardiac Disorders: Yes (Afib) CVA: No COPD: Yes CHF: Yes Dementia: No Diabetes: Yes GI Disorders: No Disorders: Yes (CKD) HTN: Yes Hypercholesterolemia: Yes Liver Disease: No Seizures: No Thyroid Disease: No - Surgical History Abdominal Surgery: No Appendectomy: No Cardiac Surgery: No Cholecystectomy: No Lung Surgery: No Neurologic Surgery: No Orthopedic Surgery: No - Immunization History Td Vaccination: Yes TDAP Vaccination: Yes Immunization Up to Date: Yes - Suicide/Smoking/Psychosocial Hx Smoking Status: Yes Smoking History: Never smoked Years of Tobacco Use: 30 Have you smoked in the past 12 months: Yes Number of Cigarettes Smoked Daily: 10 Cigars Per Day: 0 Information on smoking cessation initiated: No 'Breaking Loose' booklet given: 03/27/18 Hx Alcohol Use: No Drug/Substance Use Hx: No Substance Use Type: None Hx Substance Use Treatment: No Review of Systems - Review of Systems Able to Perform ROS?: Yes Constitutional: No: Chills, Diaphoresis, Fever HEENTM: No: Recent change in vision, Ear Pain, Nose Pain, Throat Pain, Mouth Pain Respiratory: No: Cough Cardiac (ROS): No: Chest Pain, Palpitations, Syncope, Chest Tightness ABD/GI: No: Constipated, Diarrhea, Nausea, Rectal Bleeding, Vomiting, Tarry Stools : No: Burning, Dysuria, Hematuria Musculoskeletal: Yes: Back Pain, Joint Pain (left knee), Joint Stiffness (left knee) Integumentary: No: Rash Neurological: No: Headache, Numbness, Paresthesia, Weakness Psychiatric: No: Stressors Endocrine: No: Unexplained Weight Gain Hematologic/Lymphatic: No: Anemia *Physical Exam - Vital Signs Last Vital Signs Temp Pulse Resp BP Pulse Ox 98.1 F 74 20 179/103 95 05/04/18 15:12 05/04/18 15:12 05/04/18 15:12 05/04/18 15:12 05/04/18 15:12 - Physical Exam General Appearance: Yes: Nourished, Appropriately Dressed HEENT: positive: EOMI, ELENA, Normal Voice Neck: negative: Lymphadenopathy (R), Lymphadenopathy (L) Respiratory/Chest: positive: Lungs Clear, Normal Breath Sounds Cardiovascular: positive: Regular Rhythm, Regular Rate, S1, S2. negative: Systolic Murmur Vascular Pulses: Dorsalis-Pedis (R): 3+, Doralis-Pedis (L): 3+ Gastrointestinal/Abdominal: positive: Normal Bowel Sounds. negative: Tender Lymphatic: negative: Adenopathy Musculoskeletal: positive: Other (paravetebral tenderness to palpation on the left side. ). negative: CVA Tenderness Extremity: positive: Normal Capillary Refill, Other (left knee more swollen than right. no calf tenderness bilaterally. equal sensation bilaterally. Equal motor strength bilaterally. This was limited due to patient's pain and unwillingness to move legs. Positive straight leg raise test on the left side. ) Integumentary: positive: Normal Color, Dry, Warm. negative: Erythema, Rash, Ecchymosis, Bruising Neurologic: positive: dining car hop II-XII NML intact, Fully Oriented, Alert, Motor Strength 5/5 Medical Decision Making - Medical Decision Making 57 yo F with significant past medical history (refer to HPI) who presented with acute on chronic left leg pain that began this morning in the setting of running out of narcotic pain medication. ddx: cauda equina, vertebral compression, acute exacerbation of sciatica, Initial vitals: Initial Vital Signs Temp Pulse Resp BP Pulse Ox 98.1 F 74 20 179/103 95 05/04/18 15:12 05/04/18 15:12 05/04/18 15:12 05/04/18 15:12 05/04/18 15:12 Work up: Knee xray showed no acute pathologies noted except for degenerative changes and increased arthritic changes from previous studies. Was given flexiril, lidoderm patch, and percocet in the ED for pain management. On reassessment, her pain was under control. She was given instructions to follow up with her primary care doctor for further management and care Dispo: Home *DC/Admit/Observation/Transfer Diagnosis at time of Disposition: Arthritis, Left leg pain - Discharge Dispostion Disposition: HOME Condition at time of disposition: Fair Decision to Admit order: No - Prescriptions Prescriptions: Cyclobenzaprine HCl 5 mg PO TID PRN #21 tablet PRN Reason: Muscle Spasms Lidocaine 5% Patch [Lidoderm Patch -] 1 patch TP DAILY #7 patch - Referrals Referrals: Rivera Doe [Primary Care Provider] - - Patient Instructions Printed Discharge Instructions: DI for Osteoarthritis, DI for Back Pain With Sciatica Additional Instructions: You have been diagnosed with back pain. Please take the medications as prescribed. Please follow up with your primary care provider for further management and care. Your care is not complete until this is done. Please return to the emergency department if worsening symptoms, new concerning symptoms arise. - Post Discharge Activity
[2018-05-04] MEDS ORDERED: LIDOCAINE 5% TOPICAL PATCH TP ONE (16:31)
[2018-05-04] MEDS ORDERED: CYCLOBENZAPRINE HCL 10 MG TABLET (FP) PO ONE (16:31)
[2018-05-04] MEDS ORDERED: morphine SULFATE 4 MG/ML VIAL ONE (16:31)
[2018-05-04] MEDS ORDERED: LIDOCAINE 5% TOPICAL PATCH ONE (16:32)
[2018-05-04] MEDS ORDERED: CYCLOBENZAPRINE HCL 10 MG TABLET (FP) ONE (16:32)
[2018-05-04] MEDS: morphine SULFATE 4 MG/ML VIAL IM ONE ×2 (16:34→16:36)
[2018-05-04] MEDS ORDERED: FAMOTIDINE 20 MG/50 ML IVPB 20 MG/50 ML MG IVPB ONE (17:11)
--- NOTE | 2018-05-04 19:33 | PDOC ---
Attending Attestation - Resident Resident Name: MarilouJuvenal - ED Attending Attestation I have performed the following: I have examined & evaluated the patient, The case was reviewed & discussed with the resident, I agree w/resident's findings & plan - HPI HPI: 05/04/18 19:29 Charles 57 year old female, with a significant past medical history of HTN, DM , CHF, COPD, Afib, prior PNA, hypothyroidism, who presents to the emergency department with, back pain. As per patient, she currently being followed up by a pain management doctor who prescribes her Percocet. She reports that she ran out of her medication thus, her this morning she had an acute on chronic episode of her pain similar to her sciatica. She describes her pain as a 10/10 beginning at her left lower back radiating to her left foot. She denies recent fevers, chills, headache or dizziness. She denies recent nausea, vomit, diarrhea or constipation. She denies recent dysuria, frequency, urgency or hematuria. She denies recent chest pain or shortness of breath. Allergies: tomato, Penicillins, chocolate Social history: Current smoker. No alcohol. No illicit drugs. Surgical history: None PMD: Dr. Rivera Doe - Physicial Exam PE: 05/04/18 19:29 NAD, well appearing, MMM, nl conjunctiva, anicteric; neck supple. lungs clear, RRR, abdomen soft nontender. GOSS x4, no focal neuro deficits. No peripheral edema. normal color for ethnicity, WWP. +Left knee decreased ROM secondary to pain without warmth. Left paravertebral lumbar tenderness with normal ROM. SILT, no prox or distal LE strength deficits , 5/5 against resistance. - Medical Decision Making 05/04/18 19:30 A portion of this note was documented by scribe services under my direction. I have reviewed the details of the note, within reason, and agree with the documentation with the following case summary and management plan written by me. Charles 57 year old female, with a significant past medical history of HTN, DM , CHF, COPD, Afib, prior PNA, hypothyroidism, who presents to the emergency department with, back pain, atraumatic, no strenuous activity. also left knee pain, acute on chronic, no trauma. no weakness or paresthesias. no fevers or chills, no bowel or bladder incontinence or abdominal pain DDx. arthritis, knee effusion, knee sprain. back strain. Barclay's cyst. clinically considered but doubt septic arthritis or gout/infection, as no skin findings and chronicity of sx w/ systemic findings. no palp knee effusion on exam to warrant tap. no posterior popliteal or deep venous system involvement to suggest DVT or Barclay's cyst/rupture. clinically doubt cauda equina or cord compression, no midline or acute neuro changes. VS wnl. pain controlled, flexeril and lidoderm patch. no narcotics. sees pain specialist in [facility], told to followup for percocet/oxy refill. rest and supportive care. rx flexeril, PRN lidoderm patch. DC in stable condition, made aware of impression and plan, agreeable. return precautions discussed, such as neuro changes or worsening pain, fall or injuries. 05/04/18 19:33
[2018-05-04 20:48] VITALS: BP 172/87; PULSE 75; TEMP 97.9
[2018-05-04] MEDS ORDERED: LIDOCAINE PATCH REMOVAL MC SCH (22:00)
== END 2018-05-04 21:34 | disposition home or self-care (01) ==
LOC: JER 15:06
DX: M54.42 Lumbago with sciatica, left side (principal); M17.11 Unilateral primary osteoarthritis, right knee; I25.10 Atherosclerotic heart disease of native coronary artery without angina pectoris; I13.0 Hypertensive heart and chronic kidney disease with heart failure and stage 1 through stage 4 chronic kidney disease, or unspecified chronic kidney disease; N18.9 Chronic kidney disease, unspecified; I50.9 Heart failure, unspecified; F17.210 Nicotine dependence, cigarettes, uncomplicated; J44.9 Chronic obstructive pulmonary disease, unspecified; J45.909 Unspecified asthma, uncomplicated; I48.91 Unspecified atrial fibrillation; Z79.01 Long term (current) use of anticoagulants; Z79.82 Long term (current) use of aspirin; E03.9 Hypothyroidism, unspecified; E11.9 Type 2 diabetes mellitus without complications; Z79.84 Long term (current) use of oral hypoglycemic drugs
CPT/HCPCS: 73560-TC-LT-FY; 99282-25

== ENCOUNTER 2018-05-21 07:24 | Emergency (ER) | payer OTHER ==
[2018-05-21] MEDS ORDERED: FUROSEMIDE 40 MG TABLET (FP) PO ONE (07:32)
[2018-05-21] MEDS ORDERED: KETOROLAC TROMETHAMINE 60 MG/2 ML VIAL IM ONE (07:32)
[2018-05-21] MEDS ORDERED: ATENOLOL 25 MG TABLET (FP) PO ONE (07:32)
[2018-05-21 07:35] VITALS: TEMP 98; BMI 31.5
--- NOTE | 2018-05-21 07:35 | PDOC ---
History of Present Illness - General History Source: Patient Exam Limitations: No Limitations - History of Present Illness Initial Comments: 05/21/18 07:35 The patient is a 57F with a PMH of CHF, COPD, A-fib on eliquis, DM, sciatica, and arthritis (osteo) who presents to the ER with complaints of R shoulder, L elbow, and L leg pain. The patient states that she woke up yesterday being in pain. She describes a sharp pain from her R shoulder "down to her wrist". She also admits to L leg pain throughout her entire leg. She denies CP, SOB, fever, chills, nausea, vomiting. She states that she normally takes percocet for the pain but she ran out the day before yesterday. She admits to tripping over her grandchildren's toy and falling on her L elbow. She denies any numbness, tingling, weakness. <Yosvany Alvarado - Last Filed: 05/21/18 09:27> <Roxanna Acosta - Last Filed: 05/21/18 11:25> - General Stated Complaint: PAIN Time Seen by Provider: 05/21/18 07:30 Past History - Past Medical History Anemia: No Asthma: Yes Cancer: No Cardiac Disorders: Yes (Afib) CVA: No COPD: Yes CHF: Yes Dementia: No Diabetes: Yes GI Disorders: No Disorders: Yes (CKD) HTN: Yes Hypercholesterolemia: Yes Liver Disease: No Seizures: No Thyroid Disease: No - Surgical History Abdominal Surgery: No Appendectomy: No Cardiac Surgery: No Cholecystectomy: No Lung Surgery: No Neurologic Surgery: No Orthopedic Surgery: No - Immunization History Td Vaccination: Yes TDAP Vaccination: Yes Immunization Up to Date: Yes - Suicide/Smoking/Psychosocial Hx Smoking Status: Yes Smoking History: Current every day smoker Years of Tobacco Use: 30 Have you smoked in the past 12 months: Yes Number of Cigarettes Smoked Daily: 10 Cigars Per Day: 0 'Breaking Loose' booklet given: 03/27/18 Hx Alcohol Use: No Drug/Substance Use Hx: No Substance Use Type: None Hx Substance Use Treatment: No <Yosvany Alvarado - Last Filed: 05/21/18 09:27> <Roxanna Acosta - Last Filed: 05/21/18 11:25> - Past Medical History Allergies/Adverse Reactions: Allergies Allergy/AdvReac Type Severity Reaction Status Date / Time morphine Allergy Severe Verified 05/21/18 07:33 Penicillins Allergy Severe Hives Verified 05/21/18 07:33 tomato [Tomato] Allergy Unknown Verified 05/21/18 07:33 chocolate AdvReac Unknown Uncoded 05/21/18 07:33 Home Medications: Ambulatory Orders Bupropion HCl [Wellbutrin Xl -] 150 mg PO DAILY #30 tab.sr.24h 11/28/15 Furosemide [Lasix -] 40 mg PO BID@0600,1400 #60 tablet 08/14/17 Oxycodone HCl/Acetaminophen [Percocet 10-325 mg Tablet] 1 each PO Q6H 03/27/18 Apixaban [Eliquis] 5 mg PO BID 03/28/18 Gabapentin [Neurontin -] 300 mg PO TID 03/29/18 Albuterol 0.083% Nebulizer Gladis [Ventolin 0.083% Nebulizer Soln -] 1 amp NEB Q4H PRN #120 amp 03/30/18 Atenolol [Tenormin -] 25 mg PO BID #60 tablet 03/30/18 Docusate Sodium [Colace -] 300 mg PO HS #90 capsule 03/30/18 Lidocaine 5% Patch [Lidoderm Patch -] 1 patch TP DAILY #7 patch 05/04/18 Albuterol Sulfate Inhaler - [Ventolin HFA Inhaler -] 1 inh IH QID PRN 05/21/18 Review of Systems - Review of Systems Able to Perform ROS?: Yes Comments:: 05/21/18 07:53 GENERAL/CONSTITUTIONAL: No fever or chills. No weakness. HEAD, EYES, EARS, NOSE AND THROAT: No change in vision. No ear pain or discharge. No sore throat. CARDIOVASCULAR: No chest pain, palpitations, or lightheadedness. RESPIRATORY: No cough, wheezing, shortness of breath, or hemoptysis. GASTROINTESTINAL: No nausea, vomiting, diarrhea, constipation, or abdominal pain. GENITOURINARY: No dysuria, frequency, hematuria, or change in urination. MUSCULOSKELETAL: Positive for R shoulder, L elbow, and L leg pain, all chronic. SKIN: No rash or lesions. NEUROLOGIC: No headache, numbness, tingling, focal weakness, loss of consciousness, or change in strength/sensation. ENDOCRINE: No increased thirst. No abnormal weight change. HEMATOLOGIC/LYMPHATIC: No anemia, easy bleeding, or history of blood clots. ALLERGIC/IMMUNOLOGIC: No hives or skin allergy. Is the patient limited Albanian proficient: No <Yosvany Alvarado - Last Filed: 05/21/18 09:27> *Physical Exam - Physical Exam Comments: 05/21/18 07:54 GENERAL: Well developed, well nourished. Awake and alert. No acute distress. HEENT: Normocephalic, atraumatic. Hearing grossly normal. Moist mucous membranes. PERRLA, EOMI. No conjunctival pallor. Sclera are non-icteric. NECK: Supple. Full ROM. CARDIOVASCULAR: Regular rate and rhythm. No murmurs, rubs, or gallops. PULMONARY: No evidence of respiratory distress. Lungs clear to auscultation bilaterally. No wheezing, rales or rhonchi. ABDOMINAL: Soft. Non-tender. Non-distended. No rebound or guarding. GENITOURINARY: No CVA tenderness bilaterally. MUSCULOSKELETAL: Decreased ROM in R shoulder. No gross deformity. Sensation intact over lateral R shoulder. Otherwise, normal range of motion at all joints with no bony deformities or tenderness. EXTREMITIES: No cyanosis. No clubbing. No edema. No calf tenderness or swelling. SKIN: Warm and dry. Normal capillary refill. No rashes. No jaundice. NEUROLOGICAL: Alert, awake, appropriate. Cranial nerves 2-12 intact. No deficits to light touch and temperature in face, upper extremities and lower extremities. 3/5 strength in R bicep, tricep, and deltoid. Otherwise, 5/5 strength in L deltoid, L biceps, L triceps, quadriceps, hamstrings, and gastrocnemius. Normal speech. Gait is ataxic. PSYCHIATRIC: Cooperative. Good eye contact. Appropriate mood and affect. <Yosvany Alvarado - Last Filed: 05/21/18 09:27> - Vital Signs Last Vital Signs Temp Pulse Resp BP Pulse Ox 98.0 F 78 16 190/82 96 05/21/18 07:33 05/21/18 09:55 05/21/18 09:55 05/21/18 09:55 05/21/18 09:55 <Roxanna Acosta - Last Filed: 05/21/18 11:25> ED Treatment Course - RADIOLOGY Radiology Studies Ordered: Category Date Time Status CHEST PA & LAT [RAD] Stat Radiology 05/21/18 07:31 Ordered SHOULDER-RIGHT [RAD] Stat Radiology 05/21/18 07:31 Ordered <Yosvany Alvarado - Last Filed: 05/21/18 09:27> - Medications Given in the ED: ED Medications Discontinued Medications Generic Name Dose Route Start Last Admin Trade Name Malena PRN Reason Stop Dose Admin Atenolol 25 mg 05/21/18 07:32 05/21/18 07:45 Tenormin - PO 05/21/18 07:33 25 mg ONCE ONE Administration Furosemide 40 mg 05/21/18 07:32 05/21/18 07:45 Lasix - PO 05/21/18 07:33 40 mg ONCE ONE Administration Ketorolac Tromethamine 60 mg 05/21/18 07:32 05/21/18 07:50 Toradol Injection - IM 05/21/18 07:33 60 mg ONCE ONE Administration Lidocaine 1 patch 05/21/18 07:48 05/21/18 08:20 Lidoderm Patch - TP 05/21/18 07:49 1 patch ONCE ONE Administration Oxycodone/Acetaminophen 1 combo 05/21/18 09:24 05/21/18 09:45 Percocet 5/325 - PO 05/21/18 09:25 1 combo ONCE ONE Administration <Roxanna Acosta - Last Filed: 05/21/18 11:25> Medical Decision Making - Medical Decision Making 05/21/18 07:55 The patient is a 57F with a PMH of chronic pain who presents to the ER with complaints of worsening of her pain after running out of percocet. Giving her PO BP meds as the patient presented hypertensive. Will give toradol and lidoderm and reassess. 05/21/18 08:35 Pt's pain improved. Preliminary read of XR shows a possible dislocated R shoulder. Pending official XR of shoulder and read. 05/21/18 09:27 I have discussed the XR's with radiologist, Dr. Chu, who believes there is blood in the joint space with an increase in joint space secondary to that. Will d/c with ortho f/u. <Yosvany Alvarado - Last Filed: 05/21/18 09:27> *DC/Admit/Observation/Transfer - Discharge Dispostion Decision to Admit order: No <Yosvany Alvarado - Last Filed: 05/21/18 09:27> <Roxanna Acosta - Last Filed: 05/21/18 11:25> Diagnosis at time of Disposition: Shoulder pain, right Qualifiers: Chronicity: acute Qualified Code(s): M25.511 - Pain in right shoulder - Discharge Dispostion Disposition: HOME Condition at time of disposition: Stable - Referrals Referrals: Rivera Doe [Primary Care Provider] - John Hylton MD [Staff Physician] - - Patient Instructions Printed Discharge Instructions: DI for Shoulder Pain Additional Instructions: Please follow up with your primary care physician in 2-3 days. Please follow up with the orthopedic surgeon in 2-3 days as well. Please return to the ER if you have any signs or symptoms of chest pain, shortness of breath, uncontrollable fever, chills, nausea, vomiting, numbness, tingling, or weakness in any part of your body, changes in vision, or slurred speech. Please take your medications as prescribed. Please return to the ER if symptoms persist, worsen, or new symptoms arise. - Post Discharge Activity
[2018-05-21] MEDS ORDERED: ATENOLOL 25 MG TABLET (FP) ONE (07:42)
[2018-05-21] MEDS ORDERED: KETOROLAC TROMETHAMINE 60 MG/2 ML VIAL ONE (07:42)
[2018-05-21] MEDS ORDERED: FUROSEMIDE 40 MG TABLET (FP) ONE (07:42)
[2018-05-21] MEDS ORDERED: LIDOCAINE 5% TOPICAL PATCH TP ONE (07:48)
[2018-05-21] MEDS ORDERED: LIDOCAINE 5% TOPICAL PATCH ONE (08:22)
--- NOTE | 2018-05-21 09:21 | PDOC ---
Attending Attestation - Resident Resident Name: QuintonnenaYosvany - ED Attending Attestation I have performed the following: I have examined & evaluated the patient, The case was reviewed & discussed with the resident, I agree w/resident's findings & plan, Exceptions are as noted - HPI HPI: 05/21/18 09:16 57 yo F with h/o CHF, COPD, A-fib on eliquis, DM, sciatica, and OA here with c/ o pain. states ran out of her percocet. denies any injury but c/o right shoulder pain, bilateral knee pain and left elbow pain. states she sees a pain management doctor. denies trauma. no f/c no cp no sob. is amulbating does not use a walker. - Physicial Exam PE: 05/21/18 09:21 awake alert lungs clear bilaterally heart rrr no mrg abd soft nt nd. right shoulder with decreased rom with abduction, crepitus. no erythema. no warmth. elbow Nt FROm. bilat knees Nt FROM ambulating with out difficulty. - Medical Decision Making 05/21/18 09:22 differential occult fx, fx. chronic pain. no signs of infected joint no effusion no f.c . pt has never seen an orthopedist. does see a pain specialist. 05/21/18 11:29 xray reviewed with radiology. mild effusion. no dislocation or fx. djd. pt given percocet states has received rx for narcotics from her pain doctor but pharmacy wont release them until tomorow. told she can not get any other prescriptions. given additional 1 tab of percocet and dc home with ortho followup.
[2018-05-21 10:43] VITALS: BP 190/82; PULSE 78
[2018-05-21] MEDS ORDERED: LIDOCAINE PATCH REMOVAL MC SCH (22:00)
--- NOTE | 2018-05-24 22:19 | EKG ---
Test Reason : Blood Pressure : / mmHG Vent. Rate : 078 BPM Atrial Rate : 078 BPM P-R Int : 130 ms QRS Dur : 102 ms QT Int : 424 ms P-R-T Axes : 000 -48 062 degrees QTc Int : 483 ms NORMAL SINUS RHYTHM INCOMPLETE RIGHT BUNDLE BRANCH BLOCK LEFT ANTERIOR FASCICULAR BLOCK VOLTAGE CRITERIA FOR LEFT VENTRICULAR HYPERTROPHY PROLONGED QT ABNORMAL ECG WHEN COMPARED WITH ECG OF 27-MAR-2018 11:11, NO SIGNIFICANT CHANGE WAS FOUND Confirmed by LEYLA PETE MD ([id number]) on 05/24/2018 10:19:14 PM Referred By: Confirmed By:LEYLA PETE MD
--- NOTE | 2018-05-24 22:19 | EKG ---
Test Reason : Blood Pressure : / mmHG Vent. Rate : 065 BPM Atrial Rate : 065 BPM P-R Int : 158 ms QRS Dur : 104 ms QT Int : 432 ms P-R-T Axes : 000 -47 044 degrees QTc Int : 449 ms NORMAL SINUS RHYTHM WITH SINUS ARRHYTHMIA LEFT ANTERIOR FASCICULAR BLOCK VOLTAGE CRITERIA FOR LEFT VENTRICULAR HYPERTROPHY ABNORMAL ECG WHEN COMPARED WITH ECG OF 21-MAY-2018 07:34, NO SIGNIFICANT CHANGE WAS FOUND Confirmed by LEYLA PETE MD ([id number]) on 05/24/2018 10:18:54 PM Referred By: Confirmed By:LEYLA PETE MD
== END 2018-05-21 09:50 | disposition home or self-care (01) ==
LOC: JER 07:24
PROC: 3E0233Z Introduction of Anti-inflammatory into Muscle, Percutaneous Approach (ICD-10-PCS; principal; 2018-05-21)
DX: M25.511 Pain in right shoulder (principal); M25.522 Pain in left elbow; M25.561 Pain in right knee; M25.562 Pain in left knee; G89.29 Other chronic pain; I48.91 Unspecified atrial fibrillation; Z79.01 Long term (current) use of anticoagulants; J44.9 Chronic obstructive pulmonary disease, unspecified; J45.909 Unspecified asthma, uncomplicated; I13.0 Hypertensive heart and chronic kidney disease with heart failure and stage 1 through stage 4 chronic kidney disease, or unspecified chronic kidney disease; E11.22 Type 2 diabetes mellitus with diabetic chronic kidney disease; N18.9 Chronic kidney disease, unspecified; Z77.22 Contact with and (suspected) exposure to environmental tobacco smoke (acute) (chronic); E78.00 Pure hypercholesterolemia, unspecified; M19.90 Unspecified osteoarthritis, unspecified site
CPT/HCPCS: 71045-TC-FY; 73030-TC-RT-FY; 73070-TC-LT-FY; 93005; 93010; 99282-25

== ENCOUNTER 2018-12-23 13:47 | Inpatient (IN) | payer OTHER ==
[2018-12-23] MEDS ORDERED: SODIUM CHLORIDE 1,000 ML IV STA (14:06)
--- NOTE | 2018-12-23 14:28 | EKG ---
Test Reason : Blood Pressure : / mmHG Vent. Rate : 164 BPM Atrial Rate : 178 BPM P-R Int : 000 ms QRS Dur : 100 ms QT Int : 300 ms P-R-T Axes : 000 -51 117 degrees QTc Int : 495 ms ATRIAL FIBRILLATION WITH RAPID VENTRICULAR RESPONSE INCOMPLETE RIGHT BUNDLE BRANCH BLOCK LEFT ANTERIOR FASCICULAR BLOCK VOLTAGE CRITERIA FOR LEFT VENTRICULAR HYPERTROPHY ABNORMAL ECG WHEN COMPARED WITH ECG OF 21-MAY-2018 08:05, SIGNIFICANT CHANGES HAVE OCCURRED Confirmed by BELLA CORONADO MD ([id number]) on 12/23/2018 2:28:07 PM Referred By: Confirmed By:BELLA CORONADO MD
--- NOTE | 2018-12-23 14:41 | PDOC ---
History of Present Illness - General Stated Complaint: A FIB Time Seen by Provider: 12/23/18 14:17 History Source: Patient Exam Limitations: No Limitations - History of Present Illness Initial Comments: 12/23/18 14:42 58 year old woman with a history of sciatica, asthma, DM, HTN, arthritis, afib( on eliquis) who presents with pain in all four extremities after she moved a heater 2 days ago and felt a sharp stabbing pain in her left hand and left shoulder and she was concerned she may have had an electrical shock. Since then the patient has noted spread of the pain to her extremitites. She does have neuripathy and takes percocet and gabapentin and follows with physical therapy. She last took percocet yesterday evening. She denies any chest pain, nausea, diaphoresis, shortness of breath, recent ilnnes, fever, n/v/d/c. She called EMS due to pain and was found to be in afib w. RVR She lives at home iwth and children. She takes atenolol for htn and afib Past History - Past Medical History Allergies/Adverse Reactions: Allergies Allergy/AdvReac Type Severity Reaction Status Date / Time morphine Allergy Severe Verified 12/23/18 14:20 Penicillins Allergy Severe Hives Verified 12/23/18 14:20 tomato [Tomato] Allergy Unknown Verified 12/23/18 14:20 chocolate AdvReac Unknown Uncoded 12/23/18 14:20 Home Medications: Ambulatory Orders Bupropion HCl [Wellbutrin Xl -] 150 mg PO DAILY #30 tab.sr.24h 11/28/15 Furosemide [Lasix -] 40 mg PO BID@0600,1400 #60 tablet 08/14/17 Oxycodone HCl/Acetaminophen [Percocet 10-325 mg Tablet] 1 each PO Q6H 03/27/18 Apixaban [Eliquis] 5 mg PO BID 03/28/18 Gabapentin [Neurontin -] 300 mg PO TID 03/29/18 Albuterol 0.083% Nebulizer Gladis [Ventolin 0.083% Nebulizer Soln -] 1 amp NEB Q4H PRN #120 amp 03/30/18 Atenolol [Tenormin -] 25 mg PO BID #60 tablet 03/30/18 Docusate Sodium [Colace -] 300 mg PO HS #90 capsule 03/30/18 Lidocaine 5% Patch [Lidoderm Patch -] 1 patch TP DAILY #7 patch 05/04/18 Albuterol Sulfate Inhaler - [Ventolin HFA Inhaler -] 1 inh IH QID PRN 05/21/18 Anemia: No Asthma: Yes Cancer: No Cardiac Disorders: Yes (Afib) CVA: No COPD: Yes CHF: Yes Dementia: No Diabetes: Yes GI Disorders: No Disorders: Yes (CKD) HTN: Yes Hypercholesterolemia: Yes Liver Disease: No Seizures: No Thyroid Disease: No - Surgical History Abdominal Surgery: No Appendectomy: No Cardiac Surgery: No Cholecystectomy: No Lung Surgery: No Neurologic Surgery: No Orthopedic Surgery: No - Immunization History Td Vaccination: Yes TDAP Vaccination: Yes Immunization Up to Date: Yes - Suicide/Smoking/Psychosocial Hx Smoking Status: Yes Smoking History: Current every day smoker Years of Tobacco Use: 30 Have you smoked in the past 12 months: Yes Number of Cigarettes Smoked Daily: 4 Cigars Per Day: 0 Information on smoking cessation initiated: Yes 'Breaking Loose' booklet given: 03/27/18 Hx Alcohol Use: No Drug/Substance Use Hx: No Substance Use Type: None Hx Substance Use Treatment: No Review of Systems - Review of Systems Able to Perform ROS?: Yes Comments:: 12/23/18 14:52 GENERAL/CONSTITUTIONAL: No fever or chills. No weakness. HEAD, EYES, EARS, NOSE AND THROAT: No change in vision. No ear pain or discharge. No sore throat. CARDIOVASCULAR: No chest pain or shortness of breath RESPIRATORY: No cough, wheezing, or hemoptysis. GASTROINTESTINAL: No nausea, vomiting, diarrhea or constipation. GENITOURINARY: No dysuria, frequency, or change in urination. MUSCULOSKELETAL: No joint or muscle swelling. No neck or back pain. SKIN: No rash NEUROLOGIC: No headache, vertigo, loss of consciousness, or change in strength/ sensation. ENDOCRINE: No increased thirst. No abnormal weight change HEMATOLOGIC/LYMPHATIC: No anemia, easy bleeding, or history of blood clots. ALLERGIC/IMMUNOLOGIC: No hives or skin allergy. Is the patient limited Georgian proficient: No *Physical Exam - Vital Signs Last Vital Signs Temp Pulse Resp BP Pulse Ox 98.2 F 168 H 20 161/95 193 H 12/23/18 14:00 12/23/18 14:00 12/23/18 14:00 12/23/18 14:00 12/23/18 14:00 - Physical Exam Comments: 12/23/18 14:53 GENERAL: Awake, alert, and fully oriented, in no acute distress, tearful, anxious at bedside HEAD: No signs of trauma, normocephalic, atraumatic EYES: EOMI, sclera anicteric, conjunctiva clear ENT: oropharynx clear without exudates. Moist mucosa NECK: Normal ROM, supple LUNGS: No distress, speaks full sentences, clear to auscultation bilaterally HEART: Regular rate and rhythm, normal S1 and S2, no murmurs, rubs or gallops, peripheral pulses normal and equal bilaterally. ABDOMEN: Soft, nontender, normoactive bowel sounds. No guarding, no rebound. No masses EXTREMITIES : Normal inspection, Normal range of motion, no edema. No clubbing or cyanosis. NEUROLOGICAL: Cranial nerves II through XII grossly intact. Normal speech, no focal sensorimotor deficits SKIN: Warm, Dry, normal turgor, no rashes or lesions noted ED Treatment Course - LABORATORY CBC & Chemistry Diagram: 12/23/18 14:05 12/23/18 14:20 Medical Decision Making - Medical Decision Making 12/23/18 14:45 58 year old woman with a history of sciatica, asthma, DM, HTN, arthritis, afib( on eliquis) who presents with pain in all four extremities after she moved a heater 2 days ago and felt a sharp stabbing pain in her left hand and left shoulder and she was concerned she may have had an electrical shock. Since then the patient has noted spread of the pain to her extremitites. ED Course: consider acs vs electrolyte derangement r/o infectious less likely electrical exposure dose cardizem 10 bp w/ 160-170 systolic 90s diastolic percocet for pain 12/23/18 15:37 Patient sti.ll with afib rvr at 144bpm at bedside redose cardizem 10 will dose [id number] for BNP elevation plan to admit for CHF exacerbation 12/23/18 15:39 last echo 08/13/17 with normal EF 12/23/18 16:13 patient not breaking rythm with 20 cardizem dose 25 mg atenolol Patient discussed with medicine team and admitted 12/23/18 18:49 per inpatient team request will order CTA to r/o PE *DC/Admit/Observation/Transfer Diagnosis at time of Disposition: CHF (congestive heart failure), Atrial fibrillation with RVR - Discharge Dispostion Condition at time of disposition: Fair Decision to Admit order: Yes - Referrals - Patient Instructions - Post Discharge Activity
[2018-12-23] MEDS ORDERED: dilTIAZem HCL 50 MG/10 ML - 10 ML VIAL IVPUSH ONE ×3 (14:45→18:11)
[2018-12-23 14:48] LABS: BASO % 0.5 % (0-2.0); EOS % 1.5 % (0-4.5); HEMOGLOBIN 14.4 GM/dL (10.7-15.3); LYMPH % 22.3 % (8-40); MCH 29.2 pg (25.7-33.7); MCHC 32.7 g/dl (32.0-36.0); MEAN CELL VOLUME 89.2 fl (80-96); MEAN PLT VOLUME 11.2 fl (7.5-11.1); MONO % 10.6 % (3.8-10.2); NEUT % 65.1 % (42.8-82.8); PLATELET COUNT 138 K/MM3 (134-434); RBC 4.93 M/mm3 (3.60-5.2); RDW 15.3 % (11.6-15.6)
[2018-12-23] MEDS ORDERED: dilTIAZem HCL 125 MG/25 ML - 25 ML VIAL ONE (15:02)
[2018-12-23 15:08] LABS: INR 1.19 (0.83-1.09); PROTHROMBIN TIME (PATIENT) 14.1 SEC (9.7-13.0)
[2018-12-23 15:20] LABS: ALBUMIN 3.7 g/dl (3.4-5.0); ALK PHOS 84 U/L (45-117); ANION GAP 5 MMOL/L (8-16); BILIRUBIN,TOTAL 0.6 mg/dL (0.2-1); BLOOD UREA NITROGEN 17 mg/dL (7-18); CALCIUM 9.5 mg/dL (8.5-10.1); CHLORIDE 102 mmol/L (98-107); CO2 36 mmol/L (21-32); CREATININE 1.4 mg/dL (0.55-1.3); GLUCOSE,RANDOM 134 mg/dL (74-106); MAGNESIUM 2.2 mg/dL (1.8-2.4); SGOT/AST 19 U/L (15-37); SGPT/ALT 15 U/L (13-61); SODIUM 143 mmol/L (136-145); TOT PROT 7.8 g/dl (6.4-8.2)
[2018-12-23] MEDS ORDERED: FUROSEMIDE 40 MG/4 ML INJECTABLE VIAL IVPUSH ONE (15:34)
[2018-12-23] MEDS ORDERED: FUROSEMIDE 40 MG/4 ML INJECTABLE VIAL ONE (15:47)
[2018-12-23] MEDS ORDERED: ATENOLOL 25 MG TABLET (FP) PO ONE (16:12)
[2018-12-23] MEDS ORDERED: ATENOLOL 25 MG TABLET (FP) ONE (16:23)
[2018-12-23] MEDS ORDERED: DILTIAZEM INJECTION 125 MG in SODIUM CHLORIDE 100 ML IVPB SCH ×2 (16:45→18:40)
--- NOTE | 2018-12-23 17:33 | PDOC ---
Documentation entered by Joleen Curran SCRIBE, acting as scribe for Sobia Munoz MD. Sobia Munoz MD: This documentation has been prepared by the Magdy tilley Amanda, SCRIBE, under my direction and personally reviewed by me in its entirety. I confirm that the documentation accurately reflects all work, treatment, procedures, and medical decision making performed by me. Attending Attestation - Resident Resident Name: Kacey Ireland - ED Attending Attestation I have performed the following: I have examined & evaluated the patient, The case was reviewed & discussed with the resident, I agree w/resident's findings & plan, Exceptions are as noted - HPI HPI: 12/23/18 14:42 The patient is a 58 year old female, with a significant past medical history of who presents to the emergency department with bilateral upper and lower extremity pain since Friday. She states she was moving a heater on Friday evening when she felt an electric shock which traveled from left hand to left shoulder. She states she developed severe pain to the right shoulder and left lower extremity by Friday and is now having pain to all 4 extremities. She describes the pain as sharp and stabbing. The patient denies chest pain, shortness of breath, headache and dizziness. The patient denies fever, chills, nausea, vomit, diarrhea and constipation. The patient denies dysuria, frequency, urgency and hematuria. Allergies: morphine, penicillins, tomato, chocolate PCP - Dr. Rivera Doe - Physicial Exam PE: 12/23/18 14:43 GENERAL: The patient is tearful on exam. HEAD: Normal with no signs of trauma. EYES: PERRLA, EOMI, sclera anicteric, conjunctiva clear. ENT: (+) dry mucous membrane. Ears normal, nares patent, oropharynx clear without exudates. NECK: Normal range of motion, supple without lymphadenopathy, JVD, or masses. LUNGS: Breath sounds equal, clear to auscultation bilaterally. No wheezes, and no crackles. HEART: (+) irregularly irregular, normal S1 and S2 without murmur, rub or gallop. ABDOMEN: Soft, nontender, normoactive bowel sounds. No guarding, no rebound. No masses palpable. EXTREMITIES: Normal range of motion, no edema. No clubbing or cyanosis. No erythema, or tenderness. NEUROLOGICAL: Cranial nerves II through XII grossly intact. Normal speech. No focal neurological deficits. MUSCULOSKELETAL: Back non-tender to palpation, no CVA tenderness SKIN: Warm, Dry, normal turgor, no rashes or lesions noted. - Critical Care Time Total Critical Care Time: 60 Critical Care Statement: The care of this patient involved high complexity decision making to prevent further life threatening deterioration of the patient 's condition and/or to evaluate & treat vital organ system(s) failure or risk of failure. - Medical Decision Making 12/23/18 14:27 EKG - Afib rate of 164 bpm, LAD, no st elevation or depression, t waves inverted I, aVL 12/23/18 14:46 58 yo F presenting with a complaint of diffuse body pain Pt states she had an injury on Friday, since then she has had joint pain in multiple locations Pt has a history of chronic pain Has 12/23/18 15:11 Laboratory Tests 12/23/18 12/23/18 14:05 14:05 WBC 7.0 Hgb 14.4 Hct 44.0 D Plt Count 138 INR 1.19 H Laboratory Tests 03/30/18 12/23/18 06:20 14:20 Sodium 143 Potassium 4.0 Chloride 102 BUN 16 17 Creatinine 1.2 H 1.4 H Random Glucose 98 134 H Troponin I 0.05 B-Natriuretic Peptide 92961.0 H TSH 0.24 L 12/23/18 16:40 HR remains elevated Will start Cardizem drip Pt is hyperthyroid BNP very elevated, lasix ordered Pt already taking NOAC Lasix drip up to 10mg/hr ICU consulted because HR elevated clinical impression: Afib with RVR, initial presentation
[2018-12-23] MEDS ORDERED: ALBUTEROL SO4 0.083% IH SOL 2.5 MG/3 ML VIAL.NEB. NEB PRN (18:24)
[2018-12-23] MEDS ORDERED: oxyCODONE HCL 5 MG TABLET PO PRN (18:28)
--- NOTE | 2018-12-23 18:31 | HP ---
Admitting History and Physical - Primary Care Physician PCP: Rivera Doe - Admission Chief Complaint: B/L shoulder pain History of Present Illness: Patient is a 58 y/o female with past medical history of sciatica, asthma, DM, HTN, arthritis, Afib on Eliquis. Patient presented to ER with complaints of B/ L shoulder pain after moving a water heater on Friday. Pain started in her L shoulder then radiated to her R shoulder. While en route to ER with EMS she was noted to be in Afib with RVR. Denies chest pain, SOB, abdominal pain, nausea, vomiting. In ER HR 160s, has received Cardizem 10mg IVP x 2 and HR go as low as 110s and would increase back up to 140-150s. Started on Cardizem 5mg/ hr drip, ICU consult placed. History Source: Patient Limitations to Obtaining History: No Limitations - Past Medical History Cardiovascular: Yes: AFIB, CHF, HTN Pulmonary: Yes: COPD Renal/: Yes: Renal Inusuff (CKD) Heme/Onc: Yes: Anemia Endocrine: Yes: Diabetes Mellitus - Smoking History Smoking history: Current every day smoker Have you smoked in the past 12 months: Yes Aproximately how many cigarettes per day: 4 - Alcohol/Substance Use Hx Alcohol Use: No History of Substance Use: reports: None - Social History Usual Living Arrangement: Yes: With Spouse, With Child ADL: Independent History of Recent Travel: No Home Medications - Allergies Allergies/Adverse Reactions: Allergies Allergy/AdvReac Type Severity Reaction Status Date / Time morphine Allergy Severe Verified 12/23/18 14:20 Penicillins Allergy Severe Hives Verified 12/23/18 14:20 tomato [Tomato] Allergy Unknown Verified 12/23/18 14:20 chocolate AdvReac Unknown Uncoded 12/23/18 14:20 - Home Medications Home Medications: Ambulatory Orders Bupropion HCl [Wellbutrin Xl -] 150 mg PO DAILY #30 tab.sr.24h 11/28/15 Furosemide [Lasix -] 40 mg PO BID@0600,1400 #60 tablet 08/14/17 Oxycodone HCl/Acetaminophen [Percocet 10-325 mg Tablet] 1 each PO Q6H 03/27/18 Apixaban [Eliquis] 5 mg PO BID 03/28/18 Gabapentin [Neurontin -] 300 mg PO TID 03/29/18 Albuterol 0.083% Nebulizer Gladis [Ventolin 0.083% Nebulizer Soln -] 1 amp NEB Q4H PRN #120 amp 03/30/18 Atenolol [Tenormin -] 25 mg PO BID #60 tablet 03/30/18 Docusate Sodium [Colace -] 300 mg PO HS #90 capsule 03/30/18 Lidocaine 5% Patch [Lidoderm Patch -] 1 patch TP DAILY #7 patch 05/04/18 Albuterol Sulfate Inhaler - [Ventolin HFA Inhaler -] 1 inh IH QID PRN 05/21/18 Review of Systems - Review of Systems Constitutional: reports: Loss of Appetite Eyes: reports: No Symptoms HENT: reports: No Symptoms Neck: reports: No Symptoms Cardiovascular: reports: No Symptoms Respiratory: reports: No Symptoms Gastrointestinal: reports: No Symptoms Genitourinary: reports: No Symptoms Breasts: reports: No Symptoms Reported Musculoskeletal: reports: No Symptoms Integumentary: reports: No Symptoms Neurological: reports: Dizziness Hematology/Lymphatic: reports: No Symptoms Psychiatric: reports: No Symptoms Physical Examination Vital Signs: Vital Signs Temperature 98.2 F 12/23/18 14:00 Pulse Rate 123 H 12/23/18 16:19 Respiratory Rate 18 12/23/18 16:19 Blood Pressure 129/100 12/23/18 16:19 O2 Sat by Pulse Oximetry (%) 97 12/23/18 16:19 Constitutional: Yes: No Distress, Anxious, Diaphoresis Eyes: Yes: Conjunctiva Clear HENT: Yes: Atraumatic Neck: Yes: Supple Cardiovascular: Yes: Tachycardia, Pulse Irregular Respiratory: Yes: Diminished, Tachypnea Gastrointestinal: Yes: Normal Bowel Sounds, Soft Musculoskeletal: Yes: Muscle Weakness Extremities: Yes: WNL Edema: No Neurological: Yes: Alert, Oriented Psychiatric: Yes: Alert, Oriented Labs: CBC, BMP 12/23/18 14:05 12/23/18 14:20 Imaging - Results Chest X-ray: Report Reviewed Problem List - Problems (1) Atrial fibrillation with rapid ventricular response Assessment/Plan: -cardiology consult -patient not breaking RVR rhythm--ICU consult -cardizem 5mg/hr -tele monitoring -Eliquis BID Code(s): I48.91 - UNSPECIFIED ATRIAL FIBRILLATION (2) Acute on chronic diastolic (congestive) heart failure Assessment/Plan: -cardio consult -lasix BID -BNP 12,945 -1L fluid restriction Code(s): I50.33 - ACUTE ON CHRONIC DIASTOLIC (CONGESTIVE) HEART FAILURE (3) CKD (chronic kidney disease) Assessment/Plan: -BUN/Cr 17/1.4 -monitor renal function daily Code(s): N18.9 - CHRONIC KIDNEY DISEASE, UNSPECIFIED (4) Hypertension Assessment/Plan: -continue Atenolol -low Na diet Code(s): I10 - ESSENTIAL (PRIMARY) HYPERTENSION (5) Hyperthyroidism Assessment/Plan: -TSH 0.24 -Free T4 ordered -consider Endo consult whenreceive T4 result Code(s): E05.90 - THYROTOXICOSIS, UNSP WITHOUT THYROTOXIC CRISIS OR STORM (6) Shoulder pain, right Assessment/Plan: -pain management -Lidoderm patch Code(s): M25.511 - PAIN IN RIGHT SHOULDER Qualifiers: Chronicity: acute Qualified Code(s): M25.511 - Pain in right shoulder Assessment/Plan see problem list dvt ppx
[2018-12-23] MEDS ORDERED: oxyCODONE HCL 5 MG TABLET ONE (18:35)
[2018-12-23 20:53] LABS: ANION GAP 8 MMOL/L (8-16); BLOOD UREA NITROGEN 17 mg/dL (7-18); CALCIUM 9.6 mg/dL (8.5-10.1); CHLORIDE 105 mmol/L (98-107); CO2 31 mmol/L (21-32); CREATININE 1.3 mg/dL (0.55-1.3); GLUCOSE,RANDOM 116 mg/dL (74-106); POTASSIUM 3.5 mmol/L (3.5-5.1); SODIUM 144 mmol/L (136-145)
[2018-12-23] MEDS ORDERED: APIXABAN 5 MG TABLET PO SCH (22:00)
[2018-12-23] MEDS ORDERED: HEPARIN NA (PORCINE) 5,000 UNITS/ML 1ML VIAL IVPUSH PRN ×2 (22:13)
--- NOTE | 2018-12-23 22:24 | HOSP ---
Subjective - Review of Symptoms Events since last encounter: Hospitalist Encounter Was notified by assistant loan processor that the patient could not have the CTA due to Cr 1.4, unless the provider signs for approval. Of note the patient's 2nd Troponin 0.18 from 0.05 Subjective: Plan: Stat BMP d/c Eliquis Heparin Protocol Trend Troponin Continue on Tele Physical Examination Vital Signs: Vital Signs Temperature 98.1 F 12/23/18 18:30 Pulse Rate 122 H 12/23/18 19:29 Respiratory Rate 17 12/23/18 19:29 Blood Pressure 127/86 12/23/18 19:29 O2 Sat by Pulse Oximetry (%) 97 12/23/18 22:00 Labs: CBC, BMP 12/23/18 14:05 12/23/18 18:43 Troponin, BNP 12/23/18 12/23/18 14:20 18:43 Troponin I 0.05 0.18 H B-Natriuretic Peptide 45138.0 H
[2018-12-23] MEDS: LIDOCAINE PATCH REMOVAL MC SCH (22:31)
[2018-12-23] MEDS: DOCUSATE SODIUM 100 MG CAPSULE (FP) PO SCH (22:31)
[2018-12-23] MEDS: GABAPENTIN 300 MG CAPSULE (FP) PO SCH (22:31)
[2018-12-23] MEDS: ACETAMINOPHEN 325 MG TABLET (FP) PO PRN (22:31)
[2018-12-23] MEDS: HEPARIN - 25,000 UNIT in SODIUM CHLORIDE 495 ML IV SCH (22:32)
[2018-12-23] MEDS: INSULIN SLIDING SCALE (NOVOLOG) 1 VIAL SQ SCH (22:33)
[2018-12-23] MEDS: ATENOLOL 25 MG TABLET (FP) PO SCH (23:00)
[2018-12-24] MEDS: oxyCODONE HCL 5 MG TABLET PO PRN ×3 (01:09→19:58)
[2018-12-24] MEDS ORDERED: FUROSEMIDE 40 MG TABLET (FP) PO SCH (06:00)
[2018-12-24] MEDS: FUROSEMIDE 40 MG/4 ML INJECTABLE VIAL IVPUSH SCH ×2 (06:36→15:30)
[2018-12-24] MEDS: GABAPENTIN 300 MG CAPSULE (FP) PO SCH ×3 (06:36→21:26)
[2018-12-24] MEDS: INSULIN SLIDING SCALE (NOVOLOG) 1 VIAL SQ SCH ×4 (06:40→21:16)
[2018-12-24 06:48] LABS: BASO % 0.5 % (0-2.0); EOS % 3.6 % (0-4.5); HEMATOCRIT 39.7 % (32.4-45.2); HEMOGLOBIN 13.1 GM/dL (10.7-15.3); LYMPH % 41.6 % (8-40); MCH 29.4 pg (25.7-33.7); MCHC 32.9 g/dl (32.0-36.0); MEAN CELL VOLUME 89.2 fl (80-96); MEAN PLT VOLUME 11.4 fl (7.5-11.1); MONO % 10.2 % (3.8-10.2); NEUT % 44.1 % (42.8-82.8); PLATELET COUNT 130 K/MM3 (134-434); RBC 4.46 M/mm3 (3.60-5.2); RDW 15.3 % (11.6-15.6); WHITE BLOOD COUNT 6.1 K/mm3 (4.0-10.0)
[2018-12-24 07:13] LABS: ALBUMIN 3.2 g/dl (3.4-5.0); ALK PHOS 66 U/L (45-117); ANION GAP 6 MMOL/L (8-16); BILIRUBIN,TOTAL 0.5 mg/dL (0.2-1); BLOOD UREA NITROGEN 25 mg/dL (7-18); CALCIUM 8.6 mg/dL (8.5-10.1); CHLORIDE 106 mmol/L (98-107); CHOLESTEROL 160 mg/dL (50-200); CO2 33 mmol/L (21-32); CREATININE 1.4 mg/dL (0.55-1.3); GLUCOSE,RANDOM 125 mg/dL (74-106); MAGNESIUM 2.1 mg/dL (1.8-2.4); N-TERMINAL BNP 15970.8 pg/ml (5-125); PHOSPHOROUS 4.4 mg/dL (2.5-4.9); POTASSIUM 3.4 mmol/L (3.5-5.1); SGOT/AST 16 U/L (15-37); SGPT/ALT 11 U/L (13-61); SODIUM 144 mmol/L (136-145); TOT PROT 6.6 g/dl (6.4-8.2)
[2018-12-24] MEDS ORDERED: PT OWN MED DRAWER 7, Y5N ONE ×3 (09:29→09:43)
[2018-12-24] MEDS: ATENOLOL 25 MG TABLET (FP) PO SCH (09:40)
[2018-12-24] MEDS: LIDOCAINE 5% TOPICAL PATCH TP SCH (09:40)
[2018-12-24] MEDS: ACETAMINOPHEN 325 MG TABLET (FP) PO PRN ×2 (09:48→19:58)
--- NOTE | 2018-12-24 10:15 | CON.CARD ---
Consult Consult Specialty:: Cardiology Reason for Consultation:: rapid Afib - History of Present Illness History of Present Illness: 58 F with HTN, COPD, PAF, diastolic CHF, CKD. Has been compliant with Eliquis AC. was admitted with shouder pain and noted to have rapid Afib. She denies palpitations, chest pain, SOB or edema. Reports compliance with her medications. Was started on Diltiazem drip and IV heparin. - History Source History Provided By: Patient - Past Medical History Cardio/Vascular: Yes: AFIB, CHF, HTN Pulmonary: Yes: COPD Renal/: Yes: Renal Inusuff (CKD) Endocrine: Yes: Diabetes Mellitus - Alcohol/Substance Use Hx Alcohol Use: No History of Substance Use: reports: None - Smoking History Smoking history: Current every day smoker Have you smoked in the past 12 months: Yes Aproximately how many cigarettes per day: 4 - Social History Usual Living Arrangement: With Spouse (and two grand children) ADL: Independent History of Recent Travel: No Home Medications - Allergies Allergies/Adverse Reactions: Allergies Allergy/AdvReac Type Severity Reaction Status Date / Time morphine Allergy Severe Verified 12/23/18 14:20 Penicillins Allergy Severe Hives Verified 12/23/18 14:20 tomato [Tomato] Allergy Unknown Verified 12/23/18 14:20 chocolate AdvReac Unknown Uncoded 12/23/18 14:20 - Home Medications Home Medications: Ambulatory Orders Bupropion HCl [Wellbutrin Xl -] 150 mg PO DAILY #30 tab.sr.24h 11/28/15 Furosemide [Lasix -] 40 mg PO BID@0600,1400 #60 tablet 08/14/17 Oxycodone HCl/Acetaminophen [Percocet 10-325 mg Tablet] 1 each PO Q6H 03/27/18 Apixaban [Eliquis] 5 mg PO BID 03/28/18 Gabapentin [Neurontin -] 300 mg PO TID 03/29/18 Albuterol 0.083% Nebulizer Gladis [Ventolin 0.083% Nebulizer Soln -] 1 amp NEB Q4H PRN #120 amp 03/30/18 Atenolol [Tenormin -] 25 mg PO BID #60 tablet 03/30/18 Docusate Sodium [Colace -] 300 mg PO HS #90 capsule 03/30/18 Lidocaine 5% Patch [Lidoderm Patch -] 1 patch TP DAILY #7 patch 05/04/18 Albuterol Sulfate Inhaler - [Ventolin HFA Inhaler -] 1 inh IH QID PRN 05/21/18 Review of Systems - Review of Systems Constitutional: reports: No Symptoms Eyes: reports: No Symptoms HENT: reports: No Symptoms Neck: reports: No Symptoms Cardiovascular: reports: No Symptoms Respiratory: reports: No Symptoms Gastrointestinal: reports: No Symptoms Vital Signs: Vital Signs Temperature 98 F 12/24/18 02:00 Pulse Rate 111 H 12/24/18 02:00 Respiratory Rate 20 12/24/18 02:00 Blood Pressure 120/58 L 12/24/18 02:00 O2 Sat by Pulse Oximetry (%) 95 12/23/18 22:35 Constitutional: Yes: Well Nourished, No Distress, Calm Eyes: Yes: Conjunctiva Clear, EOM Intact HENT: Yes: Atraumatic, Normocephalic Neck: Yes: Supple, Trachea Midline Respiratory: Yes: Regular, CTA Bilaterally Gastrointestinal: Yes: Normal Bowel Sounds Cardiovascular: Yes: Pulse Irregular. No: Gallop, Rub JVD: No Carotid Bruit: No PMI: Non-Displaced Heart Sounds: Yes: S1, S2 Murmur: No: Systolic Murmur, Diastolic Murmur Edema: No - Other Data Labs, Other Data: CBC, BMP 12/24/18 05:30 12/24/18 05:30 INR, PTT INR 1.19 (0.83-1.09) H 12/23/18 14:05 Troponin, BNP 12/23/18 12/23/18 12/24/18 14:20 18:43 01:00 Troponin I 0.05 0.18 H 0.28 H B-Natriuretic Peptide 98515.0 H 12/24/18 05:30 Troponin I 0.24 H B-Natriuretic Peptide 50018.8 H Troponin, BNP 12/23/18 12/23/18 12/24/18 14:20 18:43 01:00 Troponin I 0.05 0.18 H 0.28 H B-Natriuretic Peptide 28270.0 H 12/24/18 05:30 Troponin I 0.24 H B-Natriuretic Peptide 07545.8 H Afib RVR, LVH LAD. Imaging - Results Chest X-ray: Report Reviewed (CMG with clear lungs) Problem List - Problems (1) Atrial fibrillation with rapid ventricular response Code(s): I48.91 - UNSPECIFIED ATRIAL FIBRILLATION (2) CHF (congestive heart failure) Code(s): I50.9 - HEART FAILURE, UNSPECIFIED Assessment/Plan Known Paroxysmal Afib admitted with shoulder pain after moving heavy object with incidentally noted rapid Afib and markedly elevated BNP. Last echo 2017 was essentially normal. No clinical sings of volume overload. Elevated BNP may be due to new cardiomyoathy and rapid Afib and may improve once HR is controlled. Echo Reduce Cardiazem 2.5mg/hr Increase atenolol 50mg bid Cont AC. Minimize albuterol use if possible.
--- NOTE | 2018-12-24 11:22 | PN ---
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, Physician Chief Complaint: patient seen and examined she feels much better says her sweats and sob has resolved on cardizem drip and iv heparin - Current Medication List Current Medications: Active Medications Acetaminophen (Tylenol -) 650 mg PO Q8H PRN PRN Reason: PAIN LEVEL 7 - 10 Last Admin: 12/24/18 09:48 Dose: 650 mg Albuterol Sulfate (Ventolin 0.083% Nebulizer Soln -) 1 amp NEB Q6H PRN PRN Reason: SHORT OF BREATH/WHEEZING Atenolol (Tenormin -) 25 mg PO BID [facility] Last Admin: 12/24/18 09:40 Dose: 25 mg Bupropion HCl (Wellbutrin Xl -) 150 mg PO DAILY [facility] Last Admin: 12/24/18 09:47 Dose: 150 mg Docusate Sodium (Colace -) 300 mg PO HS [facility] Last Admin: 12/23/18 22:31 Dose: 300 mg Furosemide (Lasix Injection -) 40 mg IVPUSH BID@0600,1400 [facility] Last Admin: 12/24/18 06:36 Dose: 40 mg Gabapentin (Neurontin -) 300 mg PO TID [facility] Last Admin: 12/24/18 06:36 Dose: 300 mg Heparin Sodium (Porcine) (Heparin -) 1,000 unit IVPUSH PRN PRN PRN Reason: Heparin Heparin Sodium (Porcine) (Heparin -) 5,000 unit IVPUSH PRN PRN PRN Reason: Heparin Diltiazem HCl 125 mg/ Sodium (Chloride) 125 mls @ 10 mls/hr IVPB TITR JOLENE; Protocol Last Titration: 12/23/18 23:17 Dose: 15 mg/hr, 15 mls/hr Heparin Sodium (Porcine) 25, (000 unit/ Sodium Chloride) 500 mls @ 20 mls/hr IV TITR JOLENE; Protocol Last Admin: 12/23/18 22:32 Dose: 1,000 unit/hr, 20 mls/hr Insulin Aspart (Novolog Vial Sliding Scale -) 1 vial SQ ACHS [facility]; Protocol Last Admin: 12/24/18 06:40 Dose: Not Given Lidocaine (Lidoderm Patch -) 1 patch TP DAILY [facility] Last Admin: 12/24/18 09:40 Dose: 1 patch Miscellaneous (Lidoderm Patch Removal) 1 each MC DAILY@2200 [facility] Last Admin: 12/23/18 22:31 Dose: 1 each Oxycodone HCl (Roxicodone -) 10 mg PO Q8H PRN PRN Reason: PAIN LEVEL 7 - 10 Last Admin: 12/24/18 09:47 Dose: 10 mg Potassium Chloride (K-Dur -) 40 meq PO ONCE ONE Stop: 12/24/18 11:15 - Objective Vital Signs: Vital Signs Temperature 98.6 F 12/24/18 07:00 Pulse Rate 100 H 12/24/18 07:00 Respiratory Rate 20 12/24/18 07:00 Blood Pressure 123/60 12/24/18 07:00 O2 Sat by Pulse Oximetry (%) 98 12/24/18 09:00 Constitutional: Yes: Calm Cardiovascular: Yes: Pulse Irregular, S1, S2 Respiratory: Yes: CTA Bilaterally, Diminished (at bases) Gastrointestinal: Yes: Normal Bowel Sounds, Soft Edema: No Neurological: Yes: Alert, Oriented Labs: CBC, BMP 12/24/18 05:30 12/24/18 05:30 INR, PTT INR 1.19 (0.83-1.09) H 12/23/18 14:05 Problem List - Problems (1) Atrial fibrillation with rapid ventricular response Assessment/Plan: iv cardizem decrased to 2.5 mg /hr iv heparin change to eliquis will start eliquis tonight and stopp heparin drip trend troponin- inc tenormin to 50mg bid cardiac monitoring Code(s): I48.91 - UNSPECIFIED ATRIAL FIBRILLATION (2) CKD (chronic kidney disease) Assessment/Plan: h/o ckd creatinine is at baseline 1.2-1.4 Code(s): N18.9 - CHRONIC KIDNEY DISEASE, UNSPECIFIED (3) Hyperthyroidism Assessment/Plan: repeat tsh and free t4 endocrine consult Code(s): E05.90 - THYROTOXICOSIS, UNSP WITHOUT THYROTOXIC CRISIS OR STORM (4) Acute on chronic diastolic (congestive) heart failure Assessment/Plan: iv lasix bid monitor lytes supplelemnt potasium trend BNP echo trend troponin could b bc of rapid afib Code(s): I50.33 - ACUTE ON CHRONIC DIASTOLIC (CONGESTIVE) HEART FAILURE (5) Shoulder pain, right Assessment/Plan: secondary to arthitis lidoderm patch Code(s): M25.511 - PAIN IN RIGHT SHOULDER Qualifiers: Chronicity: acute Qualified Code(s): M25.511 - Pain in right shoulder
[2018-12-24] MEDS ORDERED: POTASSIUM CHLORIDE TABS 20 MEQ TABLET.ER (FP) PO ONE (11:30)
--- NOTE | 2018-12-24 12:10 | EKG ---
Test Reason : Blood Pressure : / mmHG Vent. Rate : 086 BPM Atrial Rate : 133 BPM P-R Int : 000 ms QRS Dur : 108 ms QT Int : 402 ms P-R-T Axes : 111 -44 126 degrees QTc Int : 481 ms ATRIAL FIBRILLATION WITH RAPID VENTRICULAR RESPONSE LEFT AXIS DEVIATION LEFT VENTRICULAR HYPERTROPHY WITH REPOLARIZATION ABNORMALITY PROLONGED QT ABNORMAL ECG Confirmed by LETY ESTEBAN MD ([id number]) on 12/24/2018 12:10:11 PM Referred By: CARLTON CARPIO DR Confirmed By:LETY ESTEBAN MD
--- NOTE | 2018-12-24 12:14 | EKG ---
Test Reason : Blood Pressure : / mmHG Vent. Rate : 143 BPM Atrial Rate : 147 BPM P-R Int : 000 ms QRS Dur : 102 ms QT Int : 344 ms P-R-T Axes : 000 -48 115 degrees QTc Int : 530 ms ATRIAL FIBRILLATION WITH RAPID VENTRICULAR RESPONSE LEFT ANTERIOR FASCICULAR BLOCK VOLTAGE CRITERIA FOR LEFT VENTRICULAR HYPERTROPHY ABNORMAL ECG WHEN COMPARED WITH ECG OF 23-DEC-2018 13:51, NO SIGNIFICANT CHANGE WAS FOUND Confirmed by CARLITO MCDANIEL, LETY ([id number]) on 12/24/2018 12:14:47 PM Referred By: Confirmed By:LETY ESTEBAN MD
--- NOTE | 2018-12-24 12:19 | CON.PULM ---
Consult Consult Specialty:: PULMONARY Referred by:: RHODA Hsu Reason for Consultation:: shortness of breath - History of Present Illness Chief Complaint: shoulder pain History of Present Illness: 58yo female with h/o HTN, DM, COPD, smoker, LV diastolic dysfunction, atrial fibrillation on anticoagulation who presented with shoulder pain. Found to be in rapid afib by EMS. Reports a day of increased shortness of breath, chest "burning" sensation and some palpitations. Placed on cardizem gtt for rate control. Still smoking cigarettes, 3-4 cigarettes/day but closer to 1 PPD per at bedside. Reports subjective fevers but afebrile here. - History Source History Provided By: Patient, Medical Record Limitations to Obtaining History: No Limitations - Past Medical History Cardio/Vascular: Yes: AFIB, CHF, HTN Pulmonary: Yes: COPD Renal/: Yes: Renal Inusuff (CKD) Endocrine: Yes: Diabetes Mellitus - Alcohol/Substance Use Hx Alcohol Use: No History of Substance Use: reports: None - Smoking History Smoking history: Current every day smoker Have you smoked in the past 12 months: Yes Aproximately how many cigarettes per day: 4 - Social History Usual Living Arrangement: With Spouse (and two grand children) ADL: Independent History of Recent Travel: No Home Medications - Allergies Allergies/Adverse Reactions: Allergies Allergy/AdvReac Type Severity Reaction Status Date / Time morphine Allergy Severe Verified 12/23/18 14:20 Penicillins Allergy Severe Hives Verified 12/23/18 14:20 tomato [Tomato] Allergy Unknown Verified 12/23/18 14:20 chocolate AdvReac Unknown Uncoded 12/23/18 14:20 - Home Medications Home Medications: Ambulatory Orders Bupropion HCl [Wellbutrin Xl -] 150 mg PO DAILY #30 tab.sr.24h 11/28/15 Furosemide [Lasix -] 40 mg PO BID@0600,1400 #60 tablet 08/14/17 Oxycodone HCl/Acetaminophen [Percocet 10-325 mg Tablet] 1 each PO Q6H 03/27/18 Apixaban [Eliquis] 5 mg PO BID 03/28/18 Gabapentin [Neurontin -] 300 mg PO TID 03/29/18 Albuterol 0.083% Nebulizer Gladis [Ventolin 0.083% Nebulizer Soln -] 1 amp NEB Q4H PRN #120 amp 03/30/18 Atenolol [Tenormin -] 25 mg PO BID #60 tablet 03/30/18 Docusate Sodium [Colace -] 300 mg PO HS #90 capsule 03/30/18 Lidocaine 5% Patch [Lidoderm Patch -] 1 patch TP DAILY #7 patch 05/04/18 Albuterol Sulfate Inhaler - [Ventolin HFA Inhaler -] 1 inh IH QID PRN 05/21/18 Review of Systems - Review of Systems Constitutional: reports: Fever, Weakness. denies: Chills Eyes: denies: Recent Change in Vision HENT: denies: Nasal Congestion, Throat Pain Neck: denies: Stiffness, Tenderness Cardiovascular: reports: Chest Pain, Palpitations, Shortness of Breath. denies : Edema Respiratory: denies: Cough, Hemoptysis, Wheezing Gastrointestinal: denies: Abdominal Pain, Nausea, Vomiting Genitourinary: denies: Dysuria, Hematuria Neurological: denies: Dizziness, Headache Endocrine: denies: Unexplained Weight Loss Physical Exam Vital Sings: Vital Signs Temperature 98.6 F 12/24/18 07:00 Pulse Rate 100 H 12/24/18 07:00 Respiratory Rate 20 12/24/18 07:00 Blood Pressure 123/60 12/24/18 07:00 O2 Sat by Pulse Oximetry (%) 98 12/24/18 09:00 Constitutional: Yes: Calm Eyes: Yes: Conjunctiva Clear, EOM Intact HENT: Yes: Atraumatic, Normocephalic Neck: Yes: Supple, Trachea Midline Cardiovascular: Yes: Pulse Irregular Respiratory: Yes: Diminished (decreased breath sounds at the bases) ...Clubbing: No Gastrointestinal: Yes: Normal Bowel Sounds, Soft. No: Tenderness Edema: No Labs: CBC, BMP 12/24/18 05:30 12/24/18 05:30 Imaging - Results Chest X-ray: Report Reviewed, Image Reviewed (cardiomegaly, no infiltrates) Problem List - Problems (1) Acute on chronic diastolic (congestive) heart failure Code(s): I50.33 - ACUTE ON CHRONIC DIASTOLIC (CONGESTIVE) HEART FAILURE (2) Atrial fibrillation with rapid ventricular response Code(s): I48.91 - UNSPECIFIED ATRIAL FIBRILLATION (3) Hypertension Code(s): I10 - ESSENTIAL (PRIMARY) HYPERTENSION (4) Cigarette nicotine dependence Code(s): F17.200 - NICOTINE DEPENDENCE, UNSPECIFIED, UNCOMPLICATED (5) Diabetes Code(s): E11.9 - TYPE 2 DIABETES MELLITUS WITHOUT COMPLICATIONS Qualifiers: Diabetes mellitus type: type 2 (6) Hyperlipidemia Code(s): E78.5 - HYPERLIPIDEMIA, UNSPECIFIED Assessment/Plan Atrial Fibrillation with RVR Acute on Chronic Diastolic Heart Failure +Troponins likely Demand Ischemia COPD HTN DM - rate control - continue anticoagulation - continue lasix - monitor urine output, creatinine - O2 to keep SpO2 >90% - inhaled bronchodilators as needed - smoking cessation discussed Thank you for this consult Rivera Mota MD
--- NOTE | 2018-12-24 15:52 | ECHO ---
Name: SEVERINO CABRAL Exam:Adult Echocardiogram Study Date: 12/24/2018 12:05 PM Age: 58 yrs Reason For Study: Chest pain Height: 63 in Weight: 166 lb BSA: 1.8 m2 MMode/2D Measurements & Calculations IVSd: 1.7 cm Ao root diam: 2.7 cm LVIDd: 3.7 cm LA dimension: 3.2 cm LVIDs: 2.3 cm LVPWd: 1.4 cm EDV(Teich): 59.1 ml LVOT diam: 2.0 cm ESV(Teich): 18.9 ml LAV (MOD-bp): 81.0 ml Doppler Measurements & Calculations MV E max rai: 96.5 cm/sec Ao V2 max: 163.7 cm/sec MV dec time: 0.06 sec Ao max P.7 mmHg AI P1/2t: 694.2 msec VERONICA(V,D): 2.5 cm2 AI max rai: 433.5 cm/sec LV V1 max P.5 mmHg AI max P.3 mmHg LV V1 max: 127.6 cm/sec AI dec slope: 182.9 cm/sec2 MR max rai: 300.7 cm/sec TR max rai: 221.3 cm/sec MR max P.2 mmHg TR max P.9 mmHg PA V2 max: 130.3 cm/sec Med Peak E' Rai: 5.3 cm/sec PA max P.8 mmHg Med E/e': 18.1 Lat Peak E' Rai: 8.9 cm/sec Lat E/e': 10.8 PI Vmax: 117.4 cm/sec Procedure A complete two-dimensional transthoracic echocardiogram was performed (2D, M-mode, Doppler and color flow Doppler). Left Ventricle There is moderate concentric left ventricular hypertrophy. The left ventricular ejection fraction is normal. Ejection Fraction = 55-60%. The left ventricular wall motion is normal. Right Ventricle The right ventricle is normal in size and function. Atria Normal left and right atrial size and function. Mitral Valve There is trace mitral regurgitation. Tricuspid Valve There is mild tricuspid regurgitation. Right ventricular systolic pressure is normal. Aortic Valve No hemodynamically significant valvular aortic stenosis. Mild to moderate aortic regurgitation. Pulmonic Valve There is no pulmonic valvular regurgitation. Great Vessels The aortic root is normal size. Pericardium/Pleura There is no pericardial effusion. Interpretation Summary There is moderate concentric left ventricular hypertrophy. The left ventricular ejection fraction is normal. The right ventricle is normal in size and function. There is trace mitral regurgitation. There is mild tricuspid regurgitation. Mild to moderate aortic regurgitation. MD Parminder Vasques 12/24/2018 03:51 PM
[2018-12-24] MEDS: DILTIAZEM INJECTION 125 MG in SODIUM CHLORIDE 100 ML IVPB SCH (19:52)
[2018-12-24] MEDS: DOCUSATE SODIUM 100 MG CAPSULE (FP) PO SCH (21:25)
[2018-12-24] MEDS: LIDOCAINE PATCH REMOVAL MC SCH (21:25)
[2018-12-24] MEDS: ATENOLOL 50 MG TABLET (FP) PO SCH (21:25)
[2018-12-25] MEDS: HEPARIN - 25,000 UNIT in SODIUM CHLORIDE 495 ML IV SCH
--- NOTE | 2018-12-25 00:24 | CONSULT ---
Consult Consult Specialty:: endocrine Referred by:: dr.saba gates Reason for Consultation:: hyperthyroidism - History of Present Illness Chief Complaint: palpitation,back pain History of Present Illness: 58 y/o female with past medical history of hyperthyroidism,sleep apnea,sciatica , asthma, DM, HTN, arthritis, Afib on Eliquis. Patient presented to ER with complaints of B/L shoulder pain after moving a water heater on Friday. Pain started in her L shoulder then radiated to her R shoulder.found to have rapid afib,admitted for rate control and medical therapy.she had been treated in past for hyperthyroidism,last seen 2015,has failed to follow up.has episodes of heat intolerance and tremors. - Past Medical History Cardio/Vascular: Yes: AFIB, CHF, HTN Pulmonary: Yes: COPD Renal/: Yes: Renal Inusuff (CKD) Endocrine: Yes: Diabetes Mellitus - Alcohol/Substance Use Hx Alcohol Use: No History of Substance Use: reports: None - Smoking History Smoking history: Current every day smoker Have you smoked in the past 12 months: Yes Aproximately how many cigarettes per day: 4 - Social History Usual Living Arrangement: With Spouse (and two grand children) ADL: Independent History of Recent Travel: No Home Medications - Allergies Allergies/Adverse Reactions: Allergies Allergy/AdvReac Type Severity Reaction Status Date / Time morphine Allergy Severe Verified 12/23/18 14:20 Penicillins Allergy Severe Hives Verified 12/23/18 14:20 tomato [Tomato] Allergy Unknown Verified 12/23/18 14:20 chocolate AdvReac Unknown Uncoded 12/23/18 14:20 - Home Medications Home Medications: Ambulatory Orders Bupropion HCl [Wellbutrin Xl -] 150 mg PO DAILY #30 tab.sr.24h 11/28/15 Furosemide [Lasix -] 40 mg PO BID@0600,1400 #60 tablet 08/14/17 Oxycodone HCl/Acetaminophen [Percocet 10-325 mg Tablet] 1 each PO Q6H 03/27/18 Apixaban [Eliquis] 5 mg PO BID 03/28/18 Gabapentin [Neurontin -] 300 mg PO TID 03/29/18 Albuterol 0.083% Nebulizer Gladis [Ventolin 0.083% Nebulizer Soln -] 1 amp NEB Q4H PRN #120 amp 03/30/18 Atenolol [Tenormin -] 25 mg PO BID #60 tablet 03/30/18 Docusate Sodium [Colace -] 300 mg PO HS #90 capsule 03/30/18 Lidocaine 5% Patch [Lidoderm Patch -] 1 patch TP DAILY #7 patch 05/04/18 Albuterol Sulfate Inhaler - [Ventolin HFA Inhaler -] 1 inh IH QID PRN 05/21/18 Review of Systems - Review of Systems Constitutional: reports: Lethargy, Weakness Eyes: reports: No Symptoms HENT: reports: No Symptoms Neck: reports: No Symptoms Cardiovascular: reports: Shortness of Breath Respiratory: reports: Exercise Intolerance, SOB, SOB on Exertion Gastrointestinal: reports: Bloating Genitourinary: reports: No Symptoms Musculoskeletal: reports: Joint Swelling, Muscle Pain, Muscle Cramps, Muscle Weakness Neurological: reports: Numbness, Tremors, Weakness Endocrine: reports: Unexplained Weight Loss Physical Exam Vital Signs: Vital Signs Temperature 98.7 F 12/24/18 19:00 Pulse Rate 88 12/24/18 19:00 Respiratory Rate 24 H 12/24/18 21:00 Blood Pressure 125/86 12/24/18 19:00 O2 Sat by Pulse Oximetry (%) 95 12/24/18 21:00 Constitutional: Yes: Anxious Eyes: Yes: EOM Intact HENT: Yes: Normocephalic Neck: Yes: Trachea Midline, Thyromegaly, Other (left lobe nodules) Cardiovascular: Yes: Regular Rate and Rhythm Respiratory: Yes: CTA Bilaterally Gastrointestinal: Yes: Normal Bowel Sounds ...Rectal Exam: Yes: Deferred Renal/: Yes: WNL Musculoskeletal: Yes: WNL Extremities: Yes: WNL Neurological: Yes: Alert, Oriented Labs: CBC, BMP 12/24/18 05:30 12/24/18 05:30 Problem List - Problems (1) Thyrotoxicosis 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 Code(s): E05.00 - THYROTOXICOSIS W DIFFUSE GOITER W/O THYROTOXIC CRISIS (2) Atrial fibrillation with rapid ventricular response Code(s): I48.91 - UNSPECIFIED ATRIAL FIBRILLATION (3) CHF (congestive heart failure) Code(s): I50.9 - HEART FAILURE, UNSPECIFIED (4) Afib Code(s): I48.91 - UNSPECIFIED ATRIAL FIBRILLATION Qualifiers: Atrial fibrillation type: unspecified Qualified Code(s): I48.91 - Unspecified atrial fibrillation (5) Anxiety and depression Code(s): F41.9 - ANXIETY DISORDER, UNSPECIFIED; F32.9 - MAJOR DEPRESSIVE DISORDER, SINGLE EPISODE, UNSPECIFIED (6) Arthritis Code(s): M19.90 - UNSPECIFIED OSTEOARTHRITIS, UNSPECIFIED SITE (7) CHF exacerbation Code(s): I50.9 - HEART FAILURE, UNSPECIFIED (8) CKD (chronic kidney disease) Code(s): N18.9 - CHRONIC KIDNEY DISEASE, UNSPECIFIED Assessment/Plan Current Active Problems hyperthyroidism thyroid nodular gland copd Atrial fibrillation with rapid ventricular response (Acute) CHF (congestive heart failure) (Acute) caitlin sleep apnea Abnormal Lab Results 12/24/18 12/24/18 12/24/18 01:00 05:30 05:30 Plt Count 130 L MPV 11.4 H Lymphocytes % 41.6 H D PTT (Actin FS) Potassium 3.4 L Carbon Dioxide 33 H Anion Gap 6 L BUN 25 H Creatinine 1.4 H Random Glucose 125 H ALT 11 L Troponin I 0.28 H 0.24 H B-Natriuretic Peptide 75118.8 H Albumin 3.2 L TSH 0.23 L 12/24/18 05:30 Plt Count MPV Lymphocytes % PTT (Actin FS) 80.8 H Potassium Carbon Dioxide Anion Gap BUN Creatinine Random Glucose ALT Troponin I B-Natriuretic Peptide Albumin TSH Laboratory Results - last 24 hr 12/24/18 12/24/18 12/24/18 01:00 05:30 05:30 WBC 6.1 RBC 4.46 Hgb 13.1 Hct 39.7 MCV 89.2 MCH 29.4 MCHC 32.9 RDW 15.3 Plt Count 130 L MPV 11.4 H Absolute Neuts (auto) 2.7 Neutrophils % 44.1 D Lymphocytes % 41.6 H D Monocytes % 10.2 Eosinophils % 3.6 D Basophils % 0.5 Nucleated RBC % 0 PTT (Actin FS) Sodium 144 Potassium 3.4 L Chloride 106 Carbon Dioxide 33 H Anion Gap 6 L BUN 25 H Creatinine 1.4 H Creat Clearance w eGFR 38.36 POC Glucometer Random Glucose 125 H Hemoglobin A1c % Calcium 8.6 Phosphorus 4.4 Magnesium 2.1 Total Bilirubin 0.5 AST 16 ALT 11 L Alkaline Phosphatase 66 Creatine Kinase 45 Troponin I 0.28 H 0.24 H B-Natriuretic Peptide 33800.8 H Total Protein 6.6 Albumin 3.2 L Cholesterol 160 TSH 0.23 L 12/24/18 12/24/18 12/24/18 05:30 05:30 06:38 WBC RBC Hgb Hct MCV MCH MCHC RDW Plt Count MPV Absolute Neuts (auto) Neutrophils % Lymphocytes % Monocytes % Eosinophils % Basophils % Nucleated RBC % PTT (Actin FS) 80.8 H Sodium Potassium Chloride Carbon Dioxide Anion Gap BUN Creatinine Creat Clearance w eGFR POC Glucometer 111 Random Glucose Hemoglobin A1c % 6.0 Calcium Phosphorus Magnesium Total Bilirubin AST ALT Alkaline Phosphatase Creatine Kinase Troponin I B-Natriuretic Peptide Total Protein Albumin Cholesterol TSH 12/24/18 12/24/18 17:01 21:08 WBC RBC Hgb Hct MCV MCH MCHC RDW Plt Count MPV Absolute Neuts (auto) Neutrophils % Lymphocytes % Monocytes % Eosinophils % Basophils % Nucleated RBC % PTT (Actin FS) Sodium Potassium Chloride Carbon Dioxide Anion Gap BUN Creatinine Creat Clearance w eGFR POC Glucometer 301 110 Random Glucose Hemoglobin A1c % Calcium Phosphorus Magnesium Total Bilirubin AST ALT Alkaline Phosphatase Creatine Kinase Troponin I B-Natriuretic Peptide Total Protein Albumin Cholesterol TSH Laboratory Tests 12/23/18 12/24/18 12/24/18 18:43 05:30 05:30 Hemoglobin A1c % 6.0 TSH 0.23 L Free T4 1.13 plan: check free t4 repeat tsh free [id number] will need future thyroid sonogram outpatient sleep apnea evaluation
[2018-12-25] MEDS: oxyCODONE HCL 5 MG TABLET PO PRN ×2 (05:24→16:43)
[2018-12-25] MEDS: FUROSEMIDE 40 MG/4 ML INJECTABLE VIAL IVPUSH SCH ×2 (05:25→14:13)
[2018-12-25] MEDS: GABAPENTIN 300 MG CAPSULE (FP) PO SCH ×3 (05:25→21:13)
[2018-12-25] MEDS: ACETAMINOPHEN 325 MG TABLET (FP) PO PRN (05:25)
[2018-12-25 06:49] LABS: BASO % 0.3 % (0-2.0); EOS % 4.1 % (0-4.5); HEMATOCRIT 39.2 % (32.4-45.2); HEMOGLOBIN 12.7 GM/dL (10.7-15.3); LYMPH % 45.6 % (8-40); MCHC 32.3 g/dl (32.0-36.0); MEAN CELL VOLUME 89.9 fl (80-96); MEAN PLT VOLUME 11.2 fl (7.5-11.1); MONO % 11.2 % (3.8-10.2); NEUT % 38.8 % (42.8-82.8); PLATELET COUNT 133 K/MM3 (134-434); RBC 4.36 M/mm3 (3.60-5.2); RDW 15.2 % (11.6-15.6); WHITE BLOOD COUNT 5.8 K/mm3 (4.0-10.0)
[2018-12-25] MEDS: INSULIN SLIDING SCALE (NOVOLOG) 1 VIAL SQ SCH ×4 (06:56→21:14)
[2018-12-25] MEDS: DILTIAZEM INJECTION 125 MG in SODIUM CHLORIDE 100 ML IVPB SCH (07:00)
[2018-12-25 09:21] LABS: ANION GAP 8 MMOL/L (8-16); BLOOD UREA NITROGEN 34 mg/dL (7-18); CALCIUM 8.7 mg/dL (8.5-10.1); CHLORIDE 105 mmol/L (98-107); CO2 28 mmol/L (21-32); CREATININE 1.8 mg/dL (0.55-1.3); GLUCOSE,RANDOM 113 mg/dL (74-106); POTASSIUM 3.9 mmol/L (3.5-5.1); SODIUM 141 mmol/L (136-145); TOT PROT 6.7 g/dl (6.4-8.2)
[2018-12-25 09:22] LABS: ALBUMIN 3.1 g/dl (3.4-5.0); ALK PHOS 66 U/L (45-117); BILIRUBIN,TOTAL 0.4 mg/dL (0.2-1); SGOT/AST 14 U/L (15-37); SGPT/ALT 14 U/L (13-61)
[2018-12-25] MEDS: LIDOCAINE 5% TOPICAL PATCH TP SCH (10:16)
[2018-12-25] MEDS: ATENOLOL 50 MG TABLET (FP) PO SCH ×2 (10:17→21:13)
[2018-12-25] MEDS ORDERED: PT OWN MED DRAWER 7, Y5N ONE ×2 (10:18→16:55)
--- NOTE | 2018-12-25 11:36 | PN ---
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 (short form) - Note 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: Feels better today. Less SOB. Remains on Cardizem 10mg/hr and IV Heparin. Intake & Output 12/22/18 12/23/18 12/24/18 12/25/18 23:59 23:59 23:59 23:59 Intake Total 130 904 453 Balance 130 904 453 Weight 166 lb 9 oz 166 lb 9 oz 167 lb Last Vital Signs Temp Pulse Resp BP Pulse Ox 97.9 F 85 20 133/99 95 12/25/18 08:00 12/25/18 12:00 12/25/18 12:00 12/25/18 12:00 12/25/18 09:00 Active Medications Acetaminophen (Tylenol -) 650 mg PO Q8H PRN PRN Reason: PAIN LEVEL 7 - 10 Last Admin: 12/25/18 05:25 Dose: 650 mg Albuterol Sulfate (Ventolin 0.083% Nebulizer Soln -) 1 amp NEB Q6H PRN PRN Reason: SHORT OF BREATH/WHEEZING Atenolol (Tenormin -) 50 mg PO BID [facility] Last Admin: 12/25/18 10:17 Dose: 50 mg Bupropion HCl (Wellbutrin Xl -) 150 mg PO DAILY [facility] Last Admin: 12/25/18 11:56 Dose: 150 mg Docusate Sodium (Colace -) 300 mg PO HS [facility] Last Admin: 12/24/18 21:25 Dose: 300 mg Furosemide (Lasix Injection -) 40 mg IVPUSH BID@0600,1400 [facility] Last Admin: 12/25/18 05:25 Dose: 40 mg Gabapentin (Neurontin -) 300 mg PO TID [facility] Last Admin: 12/25/18 05:25 Dose: 300 mg Heparin Sodium (Porcine) (Heparin -) 1,000 unit IVPUSH PRN PRN PRN Reason: Heparin Heparin Sodium (Porcine) (Heparin -) 5,000 unit IVPUSH PRN PRN PRN Reason: Heparin Heparin Sodium (Porcine) 25, (000 unit/ Sodium Chloride) 500 mls @ 20 mls/hr IV TITR [facility]; Protocol Last Admin: 12/25/18 00:00 Dose: 950 unit/hr, 19 mls/hr Diltiazem HCl 125 mg/ Sodium (Chloride) 125 mls @ 2.5 mls/hr IVPB TITR [facility]; Protocol Last Admin: 12/25/18 07:00 Dose: 2.5 mg/hr, 2.5 mls/hr Insulin Aspart (Novolog Vial Sliding Scale -) 1 vial SQ ACHS [facility]; Protocol Last Admin: 12/25/18 12:00 Dose: Not Given Lidocaine (Lidoderm Patch -) 1 patch TP DAILY [facility] Last Admin: 12/25/18 10:16 Dose: 1 patch Miscellaneous (Lidoderm Patch Removal) 1 each MC DAILY@2200 [facility] Last Admin: 12/24/18 21:25 Dose: 1 each Oxycodone HCl (Roxicodone -) 10 mg PO Q8H PRN PRN Reason: PAIN LEVEL 7 - 10 Last Admin: 12/25/18 05:24 Dose: 10 mg Constitutional: Yes: NAD Eyes: Yes: Conjunctiva Clear, EOM Intact HENT: Yes: Atraumatic, Normocephalic Neck: Yes: Supple, Trachea Midline Cardiovascular: Yes: Pulse Irregular Respiratory: Yes: Diminished at the bases ...Clubbing: No Gastrointestinal: Yes: Normal Bowel Sounds, Soft. No: Tenderness Edema: No Labs: Laboratory Results - last 24 hr 12/24/18 12/24/18 12/25/18 17:01 21:08 05:19 WBC RBC Hgb Hct MCV MCH MCHC RDW Plt Count MPV Absolute Neuts (auto) Neutrophils % Lymphocytes % Monocytes % Eosinophils % Basophils % Nucleated RBC % PTT (Actin FS) Sodium Potassium Chloride Carbon Dioxide Anion Gap BUN Creatinine Creat Clearance w eGFR POC Glucometer 301 110 125 Random Glucose Calcium Total Bilirubin AST ALT Alkaline Phosphatase Creatine Kinase Troponin I B-Natriuretic Peptide Total Protein Albumin TSH Free T4 12/25/18 12/25/18 12/25/18 05:30 05:30 05:30 WBC 5.8 RBC 4.36 Hgb 12.7 Hct 39.2 MCV 89.9 MCH 29.0 MCHC 32.3 RDW 15.2 Plt Count 133 L MPV 11.2 H Absolute Neuts (auto) 2.2 Neutrophils % 38.8 L Lymphocytes % 45.6 H Monocytes % 11.2 H Eosinophils % 4.1 Basophils % 0.3 Nucleated RBC % 0 PTT (Actin FS) 80.8 H Sodium 141 Potassium 3.9 Chloride 105 Carbon Dioxide 28 Anion Gap 8 BUN 34 H Creatinine 1.8 H Creat Clearance w eGFR 28.70 POC Glucometer Random Glucose 113 H Calcium 8.7 Total Bilirubin 0.4 AST 14 L ALT 14 Alkaline Phosphatase 66 Creatine Kinase 35 Troponin I 0.14 H B-Natriuretic Peptide 76976.0 H Total Protein 6.7 Albumin 3.1 L TSH 0.45 Free T4 1.20 12/25/18 11:59 WBC RBC Hgb Hct MCV MCH MCHC RDW Plt Count MPV Absolute Neuts (auto) Neutrophils % Lymphocytes % Monocytes % Eosinophils % Basophils % Nucleated RBC % PTT (Actin FS) Sodium Potassium Chloride Carbon Dioxide Anion Gap BUN Creatinine Creat Clearance w eGFR POC Glucometer 125 Random Glucose Calcium Total Bilirubin AST ALT Alkaline Phosphatase Creatine Kinase Troponin I B-Natriuretic Peptide Total Protein Albumin TSH Free T4 Problem List - Problems (1) Acute on chronic diastolic (congestive) heart failure Code(s): I50.33 - ACUTE ON CHRONIC DIASTOLIC (CONGESTIVE) HEART FAILURE (2) Atrial fibrillation with rapid ventricular response Code(s): I48.91 - UNSPECIFIED ATRIAL FIBRILLATION (3) Hypertension Code(s): I10 - ESSENTIAL (PRIMARY) HYPERTENSION (4) Cigarette nicotine dependence Code(s): F17.200 - NICOTINE DEPENDENCE, UNSPECIFIED, UNCOMPLICATED (5) Diabetes Code(s): E11.9 - TYPE 2 DIABETES MELLITUS WITHOUT COMPLICATIONS Qualifiers: Diabetes mellitus type: type 2 (6) Hyperlipidemia Code(s): E78.5 - HYPERLIPIDEMIA, UNSPECIFIED Assessment/Plan Atrial Fibrillation with RVR Acute on Chronic Diastolic Heart Failure +Troponins likely Demand Ischemia COPD HTN DM - rate control - continue anticoagulation - lasix - monitor urine output, creatinine - O2 to keep SpO2 >90% - inhaled bronchodilators as needed - smoking cessation discussed Dr Montiel
--- NOTE | 2018-12-25 14:19 | PN ---
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, Physician Chief Complaint: feeling better no palpiations wants to go home on iv cardizem and iv heparin - Current Medication List Current Medications: Active Medications Acetaminophen (Tylenol -) 650 mg PO Q8H PRN PRN Reason: PAIN LEVEL 7 - 10 Last Admin: 12/25/18 05:25 Dose: 650 mg Albuterol Sulfate (Ventolin 0.083% Nebulizer Soln -) 1 amp NEB Q6H PRN PRN Reason: SHORT OF BREATH/WHEEZING Atenolol (Tenormin -) 50 mg PO BID [facility] Last Admin: 12/25/18 10:17 Dose: 50 mg Bupropion HCl (Wellbutrin Xl -) 150 mg PO DAILY [facility] Last Admin: 12/25/18 11:56 Dose: 150 mg Docusate Sodium (Colace -) 300 mg PO HS [facility] Last Admin: 12/24/18 21:25 Dose: 300 mg Furosemide (Lasix Injection -) 40 mg IVPUSH BID@0600,1400 [facility] Last Admin: 12/25/18 14:13 Dose: 40 mg Gabapentin (Neurontin -) 300 mg PO TID [facility] Last Admin: 12/25/18 14:13 Dose: 300 mg Heparin Sodium (Porcine) (Heparin -) 1,000 unit IVPUSH PRN PRN PRN Reason: Heparin Heparin Sodium (Porcine) (Heparin -) 5,000 unit IVPUSH PRN PRN PRN Reason: Heparin Heparin Sodium (Porcine) 25, (000 unit/ Sodium Chloride) 500 mls @ 20 mls/hr IV TITR [facility]; Protocol Last Admin: 12/25/18 00:00 Dose: 950 unit/hr, 19 mls/hr Diltiazem HCl 125 mg/ Sodium (Chloride) 125 mls @ 2.5 mls/hr IVPB TITR [facility]; Protocol Last Admin: 12/25/18 07:00 Dose: 2.5 mg/hr, 2.5 mls/hr Insulin Aspart (Novolog Vial Sliding Scale -) 1 vial SQ ACHS [facility]; Protocol Last Admin: 12/25/18 12:00 Dose: Not Given Lidocaine (Lidoderm Patch -) 1 patch TP DAILY [facility] Last Admin: 12/25/18 10:16 Dose: 1 patch Miscellaneous (Lidoderm Patch Removal) 1 each MC DAILY@2200 [facility] Last Admin: 04/18/19 21:25 Dose: 1 each Oxycodone HCl (Roxicodone -) 10 mg PO Q8H PRN PRN Reason: PAIN LEVEL 7 - 10 Last Admin: 12/25/18 05:24 Dose: 10 mg - Objective Vital Signs: Vital Signs Temperature 97.9 F 12/25/18 08:00 Pulse Rate 85 12/25/18 12:00 Respiratory Rate 20 12/25/18 12:00 Blood Pressure 133/99 12/25/18 12:00 O2 Sat by Pulse Oximetry (%) 95 12/25/18 09:00 Constitutional: Yes: Calm Cardiovascular: Yes: Pulse Irregular, S1, S2 Respiratory: Yes: CTA Bilaterally Gastrointestinal: Yes: Normal Bowel Sounds, Soft Edema: No Labs: CBC, BMP 12/25/18 05:30 12/25/18 05:30 INR, PTT INR 1.19 (0.83-1.09) H 12/23/18 14:05 Problem List - Problems (1) Atrial fibrillation with rapid ventricular response Assessment/Plan: iv cardizem decrease from 10 to 8mg/hr adn plan to titrate off and monitor HR on tenormin iv heparin stop change to eliquis will start eliquis tonight and stopp heparin drip trend troponin-now down to 0.14 inc tenormin to 50mg bid cardiac monitoring Code(s): I48.91 - UNSPECIFIED ATRIAL FIBRILLATION (2) CKD (chronic kidney disease) Assessment/Plan: iv lasix stop Code(s): N18.9 - CHRONIC KIDNEY DISEASE, UNSPECIFIED (3) Hyperthyroidism Assessment/Plan: repeat tsh and free t4 normal endocrine consult note outpatient thyroid sonogram Code(s): E05.90 - THYROTOXICOSIS, UNSP WITHOUT THYROTOXIC CRISIS OR STORM (4) Acute on chronic diastolic (congestive) heart failure Assessment/Plan: iv lasix bid stop given increase in creatinine from 1.4 to 1.8 if creatinine trends down tmw will start lasix 40mg po bid monitor lytes supplement potasium trend BNP- now trending down as well echo normal left ventricle systolic function and normal right ventricle systolic funtion moderate left ventricle concentric hypertrophy trend troponin - downwards Code(s): I50.33 - ACUTE ON CHRONIC DIASTOLIC (CONGESTIVE) HEART FAILURE (5) Shoulder pain, right Assessment/Plan: secondary to arthitis lidoderm patch Code(s): M25.511 - PAIN IN RIGHT SHOULDER Qualifiers: Chronicity: acute Qualified Code(s): M25.511 - Pain in right shoulder
--- NOTE | 2018-12-25 15:22 | PN ---
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, Physician Chief Complaint: Telem Afib HR 80-110 No complaints History of Present Illness: 58 F with HTN, COPD, PAF, diastolic CHF, CKD. Has been compliant with Eliquis AC. was admitted with shouder pain and noted to have rapid Afib. She denies palpitations, chest pain, SOB or edema. Reports compliance with her medications. Was started on Diltiazem drip and IV heparin. Echocardiogram 12/24/18 Normal LV size and function. No valvular pathology. - Current Medication List Current Medications: Active Medications Acetaminophen (Tylenol -) 650 mg PO Q8H PRN PRN Reason: PAIN LEVEL 7 - 10 Last Admin: 12/25/18 05:25 Dose: 650 mg Albuterol Sulfate (Ventolin 0.083% Nebulizer Soln -) 1 amp NEB Q6H PRN PRN Reason: SHORT OF BREATH/WHEEZING Atenolol (Tenormin -) 50 mg PO BID [facility] Last Admin: 12/25/18 10:17 Dose: 50 mg Bupropion HCl (Wellbutrin Xl -) 150 mg PO DAILY [facility] Last Admin: 12/25/18 11:56 Dose: 150 mg Docusate Sodium (Colace -) 300 mg PO HS [facility] Last Admin: 12/24/18 21:25 Dose: 300 mg Gabapentin (Neurontin -) 300 mg PO TID [facility] Last Admin: 12/25/18 14:13 Dose: 300 mg Diltiazem HCl 125 mg/ Sodium (Chloride) 125 mls @ 2.5 mls/hr IVPB TITR [facility]; Protocol Last Admin: 12/25/18 07:00 Dose: 2.5 mg/hr, 2.5 mls/hr Insulin Aspart (Novolog Vial Sliding Scale -) 1 vial SQ ACHS [facility]; Protocol Last Admin: 12/25/18 12:00 Dose: Not Given Lidocaine (Lidoderm Patch -) 1 patch TP DAILY [facility] Last Admin: 12/25/18 10:16 Dose: 1 patch Miscellaneous (Lidoderm Patch Removal) 1 each MC DAILY@2200 [facility] Last Admin: 12/24/18 21:25 Dose: 1 each Oxycodone HCl (Roxicodone -) 10 mg PO Q8H PRN PRN Reason: PAIN LEVEL 7 - 10 Last Admin: 12/25/18 05:24 Dose: 10 mg - Objective Vital Signs: Vital Signs Temperature 97.9 F 04/19/19 08:00 Pulse Rate 85 12/25/18 12:00 Respiratory Rate 20 12/25/18 12:00 Blood Pressure 133/99 12/25/18 12:00 O2 Sat by Pulse Oximetry (%) 95 12/25/18 09:00 Constitutional: Yes: Well Nourished, No Distress Eyes: Yes: Conjunctiva Clear, EOM Intact HENT: Yes: Atraumatic, Normocephalic Neck: Yes: Supple, Trachea Midline Cardiovascular: Yes: Pulse Irregular. No: JVD Respiratory: Yes: Regular, CTA Bilaterally Gastrointestinal: Yes: Normal Bowel Sounds Edema: No Labs: CBC, BMP 12/25/18 05:30 12/25/18 05:30 INR, PTT INR 1.19 (0.83-1.09) H 12/23/18 14:05 Problem List - Problems (1) Atrial fibrillation with rapid ventricular response Code(s): I48.91 - UNSPECIFIED ATRIAL FIBRILLATION (2) CHF (congestive heart failure) Code(s): I50.9 - HEART FAILURE, UNSPECIFIED Assessment/Plan Known Paroxysmal Afib admitted with shoulder pain after moving heavy object with incidentally noted rapid Afib and markedly elevated BNP. Last echo 2017 was essentially normal. No clinical sings of volume overload. Elevated BNP may be due to rapid Afib and may improve once HR is controlled. Discontinue Diltiazem drip atenolol 50mg bid HR is controlled. Ambulate patient. Eliquis 5mg bid DC lasix.
[2018-12-25] MEDS: APIXABAN 5 MG TABLET PO SCH (21:13)
[2018-12-25] MEDS: DOCUSATE SODIUM 100 MG CAPSULE (FP) PO SCH (21:13)
[2018-12-25] MEDS: LIDOCAINE PATCH REMOVAL MC SCH (21:13)
[2018-12-26] MEDS: oxyCODONE HCL 5 MG TABLET PO PRN ×3 (00:23→17:49)
[2018-12-26] MEDS ORDERED: FUROSEMIDE 40 MG TABLET (FP) PO SCH (06:00)
[2018-12-26] MEDS: INSULIN SLIDING SCALE (NOVOLOG) 1 VIAL SQ SCH ×4 (06:13→21:36)
[2018-12-26] MEDS: GABAPENTIN 300 MG CAPSULE (FP) PO SCH ×3 (06:13→21:35)
[2018-12-26 06:20] LABS: HEMATOCRIT 38.3 % (32.4-45.2); HEMOGLOBIN 12.4 GM/dL (10.7-15.3); MCHC 32.4 g/dl (32.0-36.0); MEAN CELL VOLUME 89.7 fl (80-96); MEAN PLT VOLUME 11.4 fl (7.5-11.1); PLATELET COUNT 138 K/MM3 (134-434); RBC 4.27 M/mm3 (3.60-5.2); RDW 15.2 % (11.6-15.6); WHITE BLOOD COUNT 5.5 K/mm3 (4.0-10.0)
[2018-12-26 06:41] LABS: ANION GAP 5 MMOL/L (8-16); BLOOD UREA NITROGEN 30 mg/dL (7-18); CALCIUM 9.1 mg/dL (8.5-10.1); CHLORIDE 104 mmol/L (98-107); CO2 31 mmol/L (21-32); CREATININE 1.5 mg/dL (0.55-1.3); GLUCOSE,RANDOM 115 mg/dL (74-106); POTASSIUM 3.8 mmol/L (3.5-5.1); SODIUM 140 mmol/L (136-145)
[2018-12-26] MEDS ORDERED: PT OWN MED DRAWER 7, Y5N ONE ×3 (09:34→11:03)
[2018-12-26] MEDS: LIDOCAINE 5% TOPICAL PATCH TP SCH (09:36)
[2018-12-26] MEDS: APIXABAN 5 MG TABLET PO SCH ×2 (09:36→21:35)
[2018-12-26] MEDS: ATENOLOL 50 MG TABLET (FP) PO SCH ×2 (09:37→21:35)
[2018-12-26] MEDS: DILTIAZEM INJECTION 125 MG in SODIUM CHLORIDE 100 ML IVPB SCH (11:44)
[2018-12-26 11:55] VITALS: BMI 30.6
--- NOTE | 2018-12-26 14:02 | PN ---
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, Physician History of Present Illness: seen and examined today in nad. states she is feeling better. denies any chest pain, sob, palpitations. - Current Medication List Current Medications: Active Medications Acetaminophen (Tylenol -) 650 mg PO Q8H PRN PRN Reason: PAIN LEVEL 7 - 10 Last Admin: 12/25/18 05:25 Dose: 650 mg Albuterol Sulfate (Ventolin 0.083% Nebulizer Soln -) 1 amp NEB Q6H PRN PRN Reason: SHORT OF BREATH/WHEEZING Apixaban (Eliquis -) 5 mg PO BID [facility] Last Admin: 12/26/18 09:36 Dose: 5 mg Atenolol (Tenormin -) 100 mg PO BID [facility] Last Admin: 12/26/18 09:37 Dose: 100 mg Bupropion HCl (Wellbutrin Xl -) 150 mg PO DAILY [facility] Last Admin: 12/26/18 11:06 Dose: 150 mg Diltiazem HCl (Cardizem Cd -) 240 mg PO DAILY [facility] Docusate Sodium (Colace -) 300 mg PO HS [facility] Last Admin: 12/25/18 21:13 Dose: 300 mg Gabapentin (Neurontin -) 300 mg PO TID [facility] Last Admin: 12/26/18 06:13 Dose: 300 mg Diltiazem HCl 125 mg/ Sodium (Chloride) 125 mls @ 2.5 mls/hr IVPB TITR [facility]; Protocol Last Admin: 12/26/18 11:44 Dose: Not Given Insulin Aspart (Novolog Vial Sliding Scale -) 1 vial SQ ACHS [facility]; Protocol Last Admin: 12/26/18 11:43 Dose: Not Given Lidocaine (Lidoderm Patch -) 1 patch TP DAILY [facility] Last Admin: 12/26/18 09:36 Dose: 1 patch Miscellaneous (Lidoderm Patch Removal) 1 each MC DAILY@2200 [facility] Last Admin: 12/25/18 21:13 Dose: 1 each Oxycodone HCl (Roxicodone -) 10 mg PO Q8H PRN PRN Reason: PAIN LEVEL 7 - 10 Last Admin: 12/26/18 00:23 Dose: 10 mg - Objective Vital Signs: Vital Signs Temperature 98.0 F 12/26/18 10:00 Pulse Rate 121 H 12/26/18 10:00 Respiratory Rate 24 H 12/26/18 10:00 Blood Pressure 128/87 12/26/18 10:00 O2 Sat by Pulse Oximetry (%) 100 12/26/18 11:50 Constitutional: Yes: No Distress, Calm Eyes: Yes: Conjunctiva Clear, EOM Intact HENT: Yes: Atraumatic, Normocephalic Neck: Yes: Supple, Trachea Midline Cardiovascular: Yes: Tachycardia, Pulse Irregular, S1, S2. No: Regular Rate and Rhythm, Bradycardia, Bruit, JVD, Gallop, Murmur, Rub, S3, S4, Varicosities Respiratory: Yes: Regular. No: Rales, Rhonchi, SOB, Wheezes Gastrointestinal: Yes: Normal Bowel Sounds, Soft. No: Distention, Tenderness Musculoskeletal: Yes: WNL Extremities: Yes: WNL Edema: No Peripheral Pulses WNL: Yes Peripheral Pulses: Left Doralis Pedis: 2+, Right Dorsalis Pedis: 2+ Neurological: Yes: Alert, Oriented Psychiatric: Yes: Alert, Oriented Labs: CBC, BMP 12/26/18 05:30 12/26/18 05:30 INR, PTT INR 1.19 (0.83-1.09) H 12/23/18 14:05 - ....Imaging Chest X-ray: Report Reviewed, Image Reviewed EKG: Report Reviewed, Image Reviewed Other: Report Reviewed, Image Reviewed (tele-AF with periods of RVR) Assessment/Plan Known Paroxysmal Afib admitted with shoulder pain after moving heavy object with incidentally noted rapid Afib and markedly elevated BNP. Last echo 2016 was essentially normal. No clinical sings of volume overload. Elevated BNP may be due to rapid Afib and may improve once HR is controlled. Pafib with RVR -now off cardizem gtt since yesterday -on Atenolol 100mg po bid -HR is not adequately controlled -start Cardizem CD 240mg daily which can be uptitrated further if needed -on Eliquis 5mg bid -off lasix. -echo 12/24/18 showed normal LV/RV systolic function, mod LVH, mild MR/TR, mild to mod AR
--- NOTE | 2018-12-26 16:09 | PN ---
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, Physician Chief Complaint: PATIENT SEEN IN ICU CHF/COPD EXACERBATION C/O SOB - Current Medication List Current Medications: Active Medications Acetaminophen (Tylenol -) 650 mg PO Q8H PRN PRN Reason: PAIN LEVEL 7 - 10 Last Admin: 12/25/18 05:25 Dose: 650 mg Albuterol Sulfate (Ventolin 0.083% Nebulizer Soln -) 1 amp NEB Q6H PRN PRN Reason: SHORT OF BREATH/WHEEZING Apixaban (Eliquis -) 5 mg PO BID [facility] Last Admin: 12/26/18 09:36 Dose: 5 mg Atenolol (Tenormin -) 100 mg PO BID [facility] Last Admin: 12/26/18 09:37 Dose: 100 mg Bupropion HCl (Wellbutrin Xl -) 150 mg PO DAILY [facility] Last Admin: 12/26/18 11:06 Dose: 150 mg Diltiazem HCl (Cardizem Cd -) 240 mg PO DAILY [facility] Last Admin: 12/26/18 14:17 Dose: 240 mg Docusate Sodium (Colace -) 300 mg PO HS [facility] Last Admin: 12/25/18 21:13 Dose: 300 mg Gabapentin (Neurontin -) 300 mg PO TID [facility] Last Admin: 12/26/18 14:17 Dose: 300 mg Insulin Aspart (Novolog Vial Sliding Scale -) 1 vial SQ ACHS [facility]; Protocol Last Admin: 12/26/18 11:43 Dose: Not Given Lidocaine (Lidoderm Patch -) 1 patch TP DAILY [facility] Last Admin: 12/26/18 09:36 Dose: 1 patch Miscellaneous (Lidoderm Patch Removal) 1 each MC DAILY@2200 [facility] Last Admin: 12/25/18 21:13 Dose: 1 each Oxycodone HCl (Roxicodone -) 10 mg PO Q8H PRN PRN Reason: PAIN LEVEL 7 - 10 Last Admin: 12/26/18 00:23 Dose: 10 mg - Objective Vital Signs: Vital Signs Temperature 98.0 F 12/26/18 10:00 Pulse Rate 105 H 12/26/18 14:00 Respiratory Rate 21 H 12/26/18 14:00 Blood Pressure 141/95 12/26/18 14:00 O2 Sat by Pulse Oximetry (%) 100 12/26/18 11:50 Constitutional: Yes: Mild Distress Eyes: Yes: WNL HENT: Yes: WNL Neck: Yes: WNL Cardiovascular: Yes: Tachycardia, Pulse Irregular Respiratory: Yes: Diminished, On Nasal O2, Rhonchi Gastrointestinal: Yes: Soft Genitourinary: Yes: WNL Musculoskeletal: Yes: WNL Extremities: Yes: WNL Edema: No Peripheral Pulses WNL: Yes Integumentary: Yes: WNL Wound/Incision: Yes: Clean/Dry Neurological: Yes: WNL ...Motor Strength: WNL Psychiatric: Yes: WNL Labs: CBC, BMP 12/26/18 05:30 12/26/18 05:30 INR, PTT INR 1.19 (0.83-1.09) H 12/23/18 14:05 Problem List - Problems (1) Atrial fibrillation with rapid ventricular response Code(s): I48.91 - UNSPECIFIED ATRIAL FIBRILLATION (2) CHF (congestive heart failure) Code(s): I50.9 - HEART FAILURE, UNSPECIFIED (3) Thyrotoxicosis 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 Code(s): E05.00 - THYROTOXICOSIS W DIFFUSE GOITER W/O THYROTOXIC CRISIS (4) Acute on chronic diastolic (congestive) heart failure Code(s): I50.33 - ACUTE ON CHRONIC DIASTOLIC (CONGESTIVE) HEART FAILURE (5) Afib Code(s): I48.91 - UNSPECIFIED ATRIAL FIBRILLATION Qualifiers: Atrial fibrillation type: unspecified Qualified Code(s): I48.91 - Unspecified atrial fibrillation (6) Anxiety and depression Code(s): F41.9 - ANXIETY DISORDER, UNSPECIFIED; F32.9 - MAJOR DEPRESSIVE DISORDER, SINGLE EPISODE, UNSPECIFIED (7) Arthritis Code(s): M19.90 - UNSPECIFIED OSTEOARTHRITIS, UNSPECIFIED SITE Assessment/Plan ACUTE ON CHRONIC COPD AND CHF EXACERBATION ON ELIQUIS FOR AC TENORMIN/CARDIZEM START LASIX IV DAILY NEBS/02 SUPPORT SYMBICORT BID OOB TO CHAIR TRANSFER FROM ICU TO [facility]
--- NOTE | 2018-12-26 21:15 | PN ---
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, Physician Chief Complaint: short of breath in chair - Current Medication List Current Medications: Active Medications Acetaminophen (Tylenol -) 650 mg PO Q8H PRN PRN Reason: PAIN LEVEL 7 - 10 Last Admin: 12/25/18 05:25 Dose: 650 mg Albuterol Sulfate (Ventolin 0.083% Nebulizer Soln -) 1 amp NEB Q6H PRN PRN Reason: SHORT OF BREATH/WHEEZING Apixaban (Eliquis -) 5 mg PO BID [facility] Last Admin: 12/26/18 09:36 Dose: 5 mg Atenolol (Tenormin -) 100 mg PO BID [facility] Last Admin: 12/26/18 09:37 Dose: 100 mg Bupropion HCl (Wellbutrin Xl -) 150 mg PO DAILY [facility] Last Admin: 12/26/18 11:06 Dose: 150 mg Diltiazem HCl (Cardizem Cd -) 240 mg PO DAILY [facility] Last Admin: 12/26/18 14:17 Dose: 240 mg Docusate Sodium (Colace -) 300 mg PO HS [facility] Last Admin: 12/25/18 21:13 Dose: 300 mg Gabapentin (Neurontin -) 300 mg PO TID [facility] Last Admin: 12/26/18 14:17 Dose: 300 mg Insulin Aspart (Novolog Vial Sliding Scale -) 1 vial SQ ACHS [facility]; Protocol Last Admin: 12/26/18 16:59 Dose: Not Given Lidocaine (Lidoderm Patch -) 1 patch TP DAILY [facility] Last Admin: 12/26/18 09:36 Dose: 1 patch Miscellaneous (Lidoderm Patch Removal) 1 each MC DAILY@2200 [facility] Last Admin: 12/25/18 21:13 Dose: 1 each Oxycodone HCl (Roxicodone -) 10 mg PO Q8H PRN PRN Reason: PAIN LEVEL 7 - 10 Last Admin: 12/26/18 17:49 Dose: 10 mg - Objective Vital Signs: Vital Signs Temperature 97.9 F 12/26/18 18:00 Pulse Rate 108 H 12/26/18 18:00 Respiratory Rate 12/26/18 19:40 Blood Pressure 130/81 12/26/18 18:00 O2 Sat by Pulse Oximetry (%) 92 L 12/26/18 19:40 Constitutional: Yes: Anxious Eyes: Yes: EOM Intact HENT: Yes: Normocephalic Neck: Yes: Trachea Midline Cardiovascular: Yes: Regular Rate and Rhythm Respiratory: Yes: CTA Bilaterally Gastrointestinal: Yes: Normal Bowel Sounds ...Rectal Exam: Yes: Deferred Musculoskeletal: Yes: WNL Extremities: Yes: WNL Edema: No Neurological: Yes: Alert, Oriented Labs: CBC, BMP 12/26/18 05:30 12/26/18 05:30 INR, PTT INR 1.19 (0.83-1.09) H 12/23/18 14:05 Problem List - Problems (1) Thyrotoxicosis 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 Code(s): E05.00 - THYROTOXICOSIS W DIFFUSE GOITER W/O THYROTOXIC CRISIS (2) Atrial fibrillation with rapid ventricular response Code(s): I48.91 - UNSPECIFIED ATRIAL FIBRILLATION (3) CHF (congestive heart failure) Code(s): I50.9 - HEART FAILURE, UNSPECIFIED (4) Afib Code(s): I48.91 - UNSPECIFIED ATRIAL FIBRILLATION Qualifiers: Atrial fibrillation type: unspecified Qualified Code(s): I48.91 - Unspecified atrial fibrillation (5) Anxiety and depression Code(s): F41.9 - ANXIETY DISORDER, UNSPECIFIED; F32.9 - MAJOR DEPRESSIVE DISORDER, SINGLE EPISODE, UNSPECIFIED (6) Arthritis Code(s): M19.90 - UNSPECIFIED OSTEOARTHRITIS, UNSPECIFIED SITE (7) CHF exacerbation Code(s): I50.9 - HEART FAILURE, UNSPECIFIED (8) CKD (chronic kidney disease) Code(s): N18.9 - CHRONIC KIDNEY DISEASE, UNSPECIFIED Assessment/Plan Current Active Problems Atrial fibrillation with rapid ventricular response (Acute) CHF (congestive heart failure) (Acute) 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
[2018-12-26] MEDS: DOCUSATE SODIUM 100 MG CAPSULE (FP) PO SCH (21:36)
[2018-12-26] MEDS: LIDOCAINE PATCH REMOVAL MC SCH (21:36)
[2018-12-27] MEDS: oxyCODONE HCL 5 MG TABLET PO PRN ×3 (00:43→20:18)
[2018-12-27] MEDS: ACETAMINOPHEN 325 MG TABLET (FP) PO PRN (00:44)
[2018-12-27 06:09] LABS: HEMATOCRIT 38.8 % (32.4-45.2); HEMOGLOBIN 12.4 GM/dL (10.7-15.3); MCH 29.1 pg (25.7-33.7); MCHC 31.9 g/dl (32.0-36.0); MEAN CELL VOLUME 91.2 fl (80-96); MEAN PLT VOLUME 11.4 fl (7.5-11.1); PLATELET COUNT 138 K/MM3 (134-434); RBC 4.26 M/mm3 (3.60-5.2); RDW 15.2 % (11.6-15.6)
[2018-12-27] MEDS: INSULIN SLIDING SCALE (NOVOLOG) 1 VIAL SQ SCH ×4 (06:21→21:17)
[2018-12-27] MEDS: GABAPENTIN 300 MG CAPSULE (FP) PO SCH ×3 (06:21→21:17)
[2018-12-27] MEDS ORDERED: PT OWN MED DRAWER 7, Y5N ONE ×3 (09:27→20:08)
[2018-12-27] MEDS: APIXABAN 5 MG TABLET PO SCH ×2 (09:34→21:17)
[2018-12-27] MEDS: ATENOLOL 50 MG TABLET (FP) PO SCH ×2 (09:35→21:17)
[2018-12-27] MEDS: LIDOCAINE 5% TOPICAL PATCH TP SCH (09:37)
--- NOTE | 2018-12-27 09:57 | PN ---
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, Physician Chief Complaint: AWAKE ALERT DENIES CHEST PAIN OR SOB - Current Medication List Current Medications: Active Medications Acetaminophen (Tylenol -) 650 mg PO Q8H PRN PRN Reason: PAIN LEVEL 7 - 10 Last Admin: 12/27/18 00:44 Dose: 650 mg Albuterol Sulfate (Ventolin 0.083% Nebulizer Soln -) 1 amp NEB Q6H PRN PRN Reason: SHORT OF BREATH/WHEEZING Apixaban (Eliquis -) 5 mg PO BID [facility] Last Admin: 12/27/18 09:34 Dose: 5 mg Atenolol (Tenormin -) 100 mg PO BID [facility] Last Admin: 12/27/18 09:35 Dose: 100 mg Bupropion HCl (Wellbutrin Xl -) 150 mg PO DAILY [facility] Last Admin: 12/27/18 09:36 Dose: 150 mg Diltiazem HCl (Cardizem Cd -) 240 mg PO DAILY [facility] Last Admin: 12/27/18 09:29 Dose: 240 mg Docusate Sodium (Colace -) 300 mg PO HS [facility] Last Admin: 12/26/18 21:36 Dose: 300 mg Gabapentin (Neurontin -) 300 mg PO TID [facility] Last Admin: 12/27/18 06:21 Dose: 300 mg Insulin Aspart (Novolog Vial Sliding Scale -) 1 [facility]; Protocol Last Admin: 12/27/18 06:21 Dose: Not Given Lidocaine (Lidoderm Patch -) 1 patch TP DAILY [facility] Last Admin: 12/27/18 09:37 Dose: 1 patch Miscellaneous (Lidoderm Patch Removal) 1 each MC DAILY@2200 [facility] Last Admin: 12/26/18 21:36 Dose: 1 each Oxycodone HCl (Roxicodone -) 10 mg PO Q8H PRN PRN Reason: PAIN LEVEL 7 - 10 Last Admin: 12/27/18 09:32 Dose: 10 mg - Objective Vital Signs: Vital Signs Temperature 98 F 12/27/18 06:00 Pulse Rate 84 12/27/18 08:42 Respiratory Rate 20 12/27/18 08:42 Blood Pressure 139/73 12/27/18 08:42 O2 Sat by Pulse Oximetry (%) 98 12/27/18 07:49 Constitutional: Yes: Mild Distress Eyes: Yes: WNL HENT: Yes: WNL Neck: Yes: WNL Cardiovascular: Yes: Tachycardia, Pulse Irregular Respiratory: Yes: Diminished, On Nasal O2, Rhonchi Gastrointestinal: Yes: Soft, Abdomen, Obese Genitourinary: Yes: WNL Musculoskeletal: Yes: Other Extremities: Yes: WNL Edema: No Peripheral Pulses WNL: Yes Integumentary: Yes: WNL Wound/Incision: Yes: Clean/Dry Neurological: Yes: Pre-Existing Deficit ...Motor Strength: WNL Psychiatric: Yes: WNL Labs: CBC, BMP 12/27/18 05:30 12/26/18 05:30 INR, PTT INR 1.19 (0.83-1.09) H 12/23/18 14:05 Problem List - Problems (1) Atrial fibrillation with rapid ventricular response Code(s): I48.91 - UNSPECIFIED ATRIAL FIBRILLATION (2) CHF (congestive heart failure) Code(s): I50.9 - HEART FAILURE, UNSPECIFIED (3) Thyrotoxicosis 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 Code(s): E05.00 - THYROTOXICOSIS W DIFFUSE GOITER W/O THYROTOXIC CRISIS (4) Acute on chronic diastolic (congestive) heart failure Code(s): I50.33 - ACUTE ON CHRONIC DIASTOLIC (CONGESTIVE) HEART FAILURE (5) Afib Code(s): I48.91 - UNSPECIFIED ATRIAL FIBRILLATION Qualifiers: Atrial fibrillation type: unspecified Qualified Code(s): I48.91 - Unspecified atrial fibrillation (6) Anxiety and depression Code(s): F41.9 - ANXIETY DISORDER, UNSPECIFIED; F32.9 - MAJOR DEPRESSIVE DISORDER, SINGLE EPISODE, UNSPECIFIED (7) Arthritis Code(s): M19.90 - UNSPECIFIED OSTEOARTHRITIS, UNSPECIFIED SITE (8) CHF exacerbation Code(s): I50.9 - HEART FAILURE, UNSPECIFIED (9) Hyperthyroidism Code(s): E05.90 - THYROTOXICOSIS, UNSP WITHOUT THYROTOXIC CRISIS OR STORM (10) Shoulder pain, right Code(s): M25.511 - PAIN IN RIGHT SHOULDER Qualifiers: Chronicity: acute Qualified Code(s): M25.511 - Pain in right shoulder (11) COPD (chronic obstructive pulmonary disease) Code(s): J44.9 - CHRONIC OBSTRUCTIVE PULMONARY DISEASE, UNSPECIFIED Qualifiers: (12) Cigarette nicotine dependence Code(s): F17.200 - NICOTINE DEPENDENCE, UNSPECIFIED, UNCOMPLICATED (13) Diabetes Code(s): E11.9 - TYPE 2 DIABETES MELLITUS WITHOUT COMPLICATIONS Qualifiers: Diabetes mellitus type: type 2 Assessment/Plan ACUTE ON CHRONIC COPD AND CHF EXACERBATION ON ELIQUIS FOR AC TENORMIN/CARDIZEM START LASIX IV DAILY NEBS/02 SUPPORT SYMBICORT BID OOB TO CHAIR TRANSFER FROM ICU TO [facility]
--- NOTE | 2018-12-27 12:20 | PN ---
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, Physician History of Present Illness: seen and examined today in nad. sitting in chair, notice LLE starting to swell which she states is where it usually starts. - Current Medication List Current Medications: Active Medications Acetaminophen (Tylenol -) 650 mg PO Q8H PRN PRN Reason: PAIN LEVEL 7 - 10 Last Admin: 12/27/18 00:44 Dose: 650 mg Albuterol Sulfate (Ventolin 0.083% Nebulizer Soln -) 1 amp NEB Q6H PRN PRN Reason: SHORT OF BREATH/WHEEZING Apixaban (Eliquis -) 5 mg PO BID [facility] Last Admin: 12/27/18 09:34 Dose: 5 mg Atenolol (Tenormin -) 100 mg PO BID [facility] Last Admin: 12/27/18 09:35 Dose: 100 mg Budesonide/Formoterol Fumarate (Symbicort 80/4.5mcg -) 2 puff IH BID [facility] Bupropion HCl (Wellbutrin Xl -) 150 mg PO DAILY [facility] Last Admin: 12/27/18 09:36 Dose: 150 mg Diltiazem HCl (Cardizem Cd -) 240 mg PO DAILY [facility] Last Admin: 12/27/18 09:29 Dose: 240 mg Docusate Sodium (Colace -) 300 mg PO HS [facility] Last Admin: 12/26/18 21:36 Dose: 300 mg Furosemide (Lasix Injection -) 40 mg IVPUSH DAILY [facility] Gabapentin (Neurontin -) 300 mg PO TID [facility] Last Admin: 12/27/18 06:21 Dose: 300 mg Insulin Aspart (Novolog Vial Sliding Scale -) 1 vial SQ ACHS [facility]; Protocol Last Admin: 12/27/18 06:21 Dose: Not Given Lidocaine (Lidoderm Patch -) 1 patch TP DAILY [facility] Last Admin: 12/27/18 09:37 Dose: 1 patch Miscellaneous (Lidoderm Patch Removal) 1 each MC DAILY@2200 [facility] Last Admin: 12/26/18 21:36 Dose: 1 each Oxycodone HCl (Roxicodone -) 10 mg PO Q8H PRN PRN Reason: PAIN LEVEL 7 - 10 Last Admin: 12/27/18 09:32 Dose: 10 mg - Objective Vital Signs: Vital Signs Temperature 98 F 12/27/18 06:00 Pulse Rate 84 12/27/18 08:42 Respiratory Rate 20 12/27/18 08:42 Blood Pressure 139/73 12/27/18 08:42 O2 Sat by Pulse Oximetry (%) 98 12/27/18 07:49 Constitutional: Yes: No Distress, Calm Eyes: Yes: Conjunctiva Clear, EOM Intact, PERRL HENT: Yes: Atraumatic, Normocephalic Neck: Yes: Supple, Trachea Midline Cardiovascular: Yes: Pulse Irregular, S1, S2. No: Regular Rate and Rhythm, Bradycardia, Tachycardia, Bruit, JVD, Gallop, Murmur, Rub, S3, S4, Varicosities Respiratory: Yes: Regular, Diminished, On Nasal O2, Rales. No: Rhonchi, SOB, Wheezes Gastrointestinal: Yes: Normal Bowel Sounds, Soft. No: Distention, Tenderness Extremities: Yes: WNL Edema: Yes Edema: LLE: Trace Peripheral Pulses WNL: Yes Neurological: Yes: Alert, Oriented Psychiatric: Yes: Alert, Oriented Labs: CBC, BMP 12/27/18 05:30 12/26/18 05:30 INR, PTT INR 1.19 (0.83-1.09) H 12/23/18 14:05 - ....Imaging Chest X-ray: Report Reviewed, Image Reviewed EKG: Report Reviewed, Image Reviewed Other: Report Reviewed, Image Reviewed (tele-AF HR better controlled 80s-90s) Assessment/Plan Known Paroxysmal Afib admitted with shoulder pain after moving heavy object with incidentally noted rapid Afib and markedly elevated BNP. Last echo 2016 was essentially normal. No clinical sings of volume overload. Elevated BNP may be due to rapid Afib and may improve once HR is controlled. Pafib with RVR-HR now adequately controlled -on Atenolol 100mg po bid -cont Cardizem CD 240mg daily which can be uptitrated further if needed -on Eliquis 5mg bid -echo 12/24/18 showed normal LV/RV systolic function, mod LVH, mild MR/TR, mild to mod AR -cont this current regiment for now -pt restarted on IV lasix daily today -monitor I/Os, bun/creat, electrolytes and replete as needed -re-evaluate volume status tomorrow and attempt to transition to po Lasix
[2018-12-27] MEDS: FUROSEMIDE 40 MG/4 ML INJECTABLE VIAL IVPUSH SCH (14:18)
[2018-12-27] MEDS: BUDESONIDE/FORMETEROL FUMARATE 80/4.5 mcg INHALER IH SCH ×2 (15:32→21:17)
[2018-12-27] MEDS: DOCUSATE SODIUM 100 MG CAPSULE (FP) PO SCH (21:16)
[2018-12-27] MEDS: LIDOCAINE PATCH REMOVAL MC SCH (21:17)
[2018-12-28] MEDS: GABAPENTIN 300 MG CAPSULE (FP) PO SCH ×2 (05:11→13:06)
[2018-12-28] MEDS: oxyCODONE HCL 5 MG TABLET PO PRN ×2 (05:11→11:07)
[2018-12-28 06:23] LABS: HEMATOCRIT 36.8 % (32.4-45.2); HEMOGLOBIN 12.1 GM/dL (10.7-15.3); MCH 29.1 pg (25.7-33.7); MCHC 32.8 g/dl (32.0-36.0); MEAN CELL VOLUME 88.7 fl (80-96); MEAN PLT VOLUME 10.9 fl (7.5-11.1); PLATELET COUNT 118 K/MM3 (134-434); RBC 4.15 M/mm3 (3.60-5.2); WHITE BLOOD COUNT 4.5 K/mm3 (4.0-10.0)
[2018-12-28] MEDS: INSULIN SLIDING SCALE (NOVOLOG) 1 VIAL SQ SCH ×2 (06:25→11:18)
[2018-12-28 07:40] LABS: ANION GAP 6 MMOL/L (8-16); BLOOD UREA NITROGEN 32 mg/dL (7-18); CALCIUM 9.1 mg/dL (8.5-10.1); CHLORIDE 105 mmol/L (98-107); CO2 32 mmol/L (21-32); CREATININE 1.5 mg/dL (0.55-1.3); GLUCOSE,RANDOM 113 mg/dL (74-106); SODIUM 144 mmol/L (136-145)
[2018-12-28 09:13] VITALS: TEMP 98.4
[2018-12-28] MEDS: LIDOCAINE 5% TOPICAL PATCH TP SCH (09:13)
[2018-12-28] MEDS: ATENOLOL 50 MG TABLET (FP) PO SCH (09:14)
[2018-12-28] MEDS: APIXABAN 5 MG TABLET PO SCH (09:14)
[2018-12-28] MEDS: FUROSEMIDE 40 MG/4 ML INJECTABLE VIAL IVPUSH SCH (09:14)
[2018-12-28] MEDS: BUDESONIDE/FORMETEROL FUMARATE 80/4.5 mcg INHALER IH SCH (09:15)
[2018-12-28] MEDS: ACETAMINOPHEN 325 MG TABLET (FP) PO PRN (11:07)
[2018-12-28 11:46] VITALS: BP 132/79; PULSE 98
--- NOTE | 2018-12-28 11:59 | DS ---
Physical Examination Vital Signs: Vital Signs Temperature 98.4 F 12/28/18 08:00 Pulse Rate 98 H 12/28/18 10:00 Respiratory Rate 30 H 12/28/18 10:00 Blood Pressure 132/79 12/28/18 10:00 O2 Sat by Pulse Oximetry (%) 95 12/28/18 10:00 Constitutional: Yes: Calm Cardiovascular: Yes: Regular Rate and Rhythm, S1, S2 Respiratory: Yes: CTA Bilaterally Gastrointestinal: Yes: Normal Bowel Sounds, Soft Edema: Yes (much improved) Neurological: Yes: Alert, Oriented Labs: CBC, BMP 12/28/18 05:30 12/28/18 05:30 Discharge Summary Reason For Visit: ACUTE ON CHRONIC DIASTOLIC CONGESTIVE HEART Current Active Problems Atrial fibrillation with rapid ventricular response (Acute) CHF (congestive heart failure) (Acute) Thyrotoxicosis 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 (Acute) Other Procedures: echo 12/24 normal LV /RV systolic function Hospital Course: 58 F with HTN, COPD, PAF, diastolic CHF, CKD. Has been compliant with Eliquis AC. was admitted with shoulder pain and noted to have rapid Afib. started on iv diltiazem and iv heparin for rate control on tele floor for afib iv heparin changed to po eliquis atenolol dose increase 10mg bid and cardizem CD 240 mg daily inc BNP bc of rapid afib:iv lasix bid change to daily lasix - sob and leg swelling improved now po lasix bid seen by endocrine to get out[patient thyroid sonogram Condition: Fair - Instructions Diet, Activity, Other Instructions: thyroid sonogram as outpatient folow up with dr bingham Referrals: Rivera Doe [Primary Care Provider] - Disposition: HOME - Home Medications Comprehensive Discharge Medication List: Ambulatory Orders Bupropion HCl [Wellbutrin Xl -] 150 mg PO DAILY #30 tab.sr.24h 11/28/15 Furosemide [Lasix -] 40 mg PO BID@0600,1400 #60 tablet 08/14/17 Oxycodone HCl/Acetaminophen [Percocet 10-325 mg Tablet] 1 each PO Q6H 03/27/18 Apixaban [Eliquis] 5 mg PO BID 03/28/18 Gabapentin [Neurontin -] 300 mg PO TID 03/29/18 Albuterol 0.083% Nebulizer Gladis [Ventolin 0.083% Nebulizer Soln -] 1 amp NEB Q4H PRN #120 amp 03/30/18 Atenolol [Tenormin -] 25 mg PO BID #60 tablet 03/30/18 Docusate Sodium [Colace -] 300 mg PO HS #90 capsule 03/30/18 Lidocaine 5% Patch [Lidoderm Patch -] 1 patch TP DAILY #7 patch 05/04/18 Albuterol Sulfate Inhaler - [Ventolin HFA Inhaler -] 1 inh IH QID PRN 05/21/18
--- NOTE | 2018-12-28 13:03 | PN ---
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 (short form) - Note 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: Feels overall better today. No CP or SOB. No acute events overnight. Intake & Output 12/25/18 12/26/18 12/27/18 12/28/18 23:59 23:59 23:59 23:59 Intake Total 753 900 500 130 Output Total 500 Balance 753 400 500 130 Weight 167 lb 173 lb 173 lb Last Vital Signs Temp Pulse Resp BP Pulse Ox 98.4 F 98 H 30 H 132/79 95 12/28/18 08:00 12/28/18 10:00 12/28/18 10:00 12/28/18 10:00 12/28/18 10:00 Active Medications Acetaminophen (Tylenol -) 650 mg PO Q8H PRN PRN Reason: PAIN LEVEL 7 - 10 Last Admin: 12/28/18 11:07 Dose: 650 mg Albuterol Sulfate (Ventolin 0.083% Nebulizer Soln -) 1 amp NEB Q6H PRN PRN Reason: SHORT OF BREATH/WHEEZING Apixaban (Eliquis -) 5 mg PO BID [facility] Last Admin: 12/28/18 09:14 Dose: 5 mg Atenolol (Tenormin -) 100 mg PO BID [facility] Last Admin: 12/28/18 09:14 Dose: 100 mg Budesonide/Formoterol Fumarate (Symbicort 80/4.5mcg -) 2 puff IH BID [facility] Last Admin: 12/28/18 09:15 Dose: 2 puff Bupropion HCl (Wellbutrin Xl -) 150 mg PO DAILY [facility] Last Admin: 12/28/18 09:15 Dose: 150 mg Diltiazem HCl (Cardizem Cd -) 240 mg PO DAILY [facility] Last Admin: 12/28/18 09:14 Dose: 240 mg Docusate Sodium (Colace -) 300 mg PO HS [facility] Last Admin: 12/27/18 21:16 Dose: 300 mg Furosemide (Lasix -) 40 mg PO BID@0600,1400 [facility] Gabapentin (Neurontin -) 300 mg PO TID [facility] Last Admin: 12/28/18 05:11 Dose: 300 mg Insulin Aspart (Novolog Vial Sliding Scale -) 1 vial SQ ACHS [facility]; Protocol Last Admin: 12/28/18 11:18 Dose: Not Given Lidocaine (Lidoderm Patch -) 1 patch TP DAILY [facility] Last Admin: 12/28/18 09:13 Dose: 1 patch Miscellaneous (Lidoderm Patch Removal) 1 each MC DAILY@2200 [facility] Last Admin: 12/27/18 21:17 Dose: 1 each Oxycodone HCl (Roxicodone -) 10 mg PO Q8H PRN PRN Reason: PAIN LEVEL 7 - 10 Last Admin: 12/28/18 11:07 Dose: 10 mg Constitutional: Yes: NAD Eyes: Yes: Conjunctiva Clear, EOM Intact HENT: Yes: Atraumatic, Normocephalic Neck: Yes: Supple, Trachea Midline Cardiovascular: Yes: Pulse Irregular Respiratory: Yes: Diminished at the bases ...Clubbing: No Gastrointestinal: Yes: Normal Bowel Sounds, Soft. No: Tenderness Edema: No Labs: Laboratory Results - last 24 hr 12/27/18 12/27/18 12/27/18 14:25 16:59 20:28 WBC RBC Hgb Hct MCV MCH MCHC RDW Plt Count MPV PTT (Actin FS) Sodium Potassium Chloride Carbon Dioxide Anion Gap BUN Creatinine Creat Clearance w eGFR POC Glucometer 116 131 160 Random Glucose Calcium 12/28/18 12/28/18 12/28/18 05:15 05:30 05:30 WBC 4.5 RBC 4.15 Hgb 12.1 Hct 36.8 MCV 88.7 MCH 29.1 MCHC 32.8 RDW 15.0 Plt Count 118 L MPV 10.9 PTT (Actin FS) 42.9 H Sodium Potassium Chloride Carbon Dioxide Anion Gap BUN Creatinine Creat Clearance w eGFR POC Glucometer 104 Random Glucose Calcium 12/28/18 12/28/18 05:30 11:16 WBC RBC Hgb Hct MCV MCH MCHC RDW Plt Count MPV PTT (Actin FS) Sodium 144 Potassium 4.0 Chloride 105 Carbon Dioxide 32 Anion Gap 6 L BUN 32 H Creatinine 1.5 H Creat Clearance w eGFR 35.42 POC Glucometer 113 Random Glucose 113 H Calcium 9.1 Problem List - Problems (1) Acute on chronic diastolic (congestive) heart failure Code(s): I50.33 - ACUTE ON CHRONIC DIASTOLIC (CONGESTIVE) HEART FAILURE (2) Atrial fibrillation with rapid ventricular response Code(s): I48.91 - UNSPECIFIED ATRIAL FIBRILLATION (3) Hypertension Code(s): I10 - ESSENTIAL (PRIMARY) HYPERTENSION (4) Cigarette nicotine dependence Code(s): F17.200 - NICOTINE DEPENDENCE, UNSPECIFIED, UNCOMPLICATED (5) Diabetes Code(s): E11.9 - TYPE 2 DIABETES MELLITUS WITHOUT COMPLICATIONS Qualifiers: Diabetes mellitus type: type 2 (6) Hyperlipidemia Code(s): E78.5 - HYPERLIPIDEMIA, UNSPECIFIED Assessment/Plan Atrial Fibrillation with RVR Acute on Chronic Diastolic Heart Failure +Troponins likely Demand Ischemia COPD HTN DM - rate control per Cardiology - AC - lasix - monitor urine output, creatinine - O2 to keep SpO2 >90% - inhaled bronchodilators as needed - smoking cessation discussed - D/C planning Dr Montiel
[2018-12-29] MEDS ORDERED: FUROSEMIDE 40 MG TABLET (FP) PO SCH (06:00)
[2018-12-29 16:15] LABS: THYROID STIM IMMUNOGLOBULIN <0.10 IU/L (0.00-0.55)
== END 2018-12-28 13:20 | disposition home or self-care (01) | DRG 201 ==
LOC: JER 13:47 → JERBED 16:07 → J2W 21:56
PROVIDERS: ADMIT Family Medicine; ATTEND Family Medicine
DX: I48.0 Paroxysmal atrial fibrillation (principal); I13.0 Hypertensive heart and chronic kidney disease with heart failure and stage 1 through stage 4 chronic kidney disease, or unspecified chronic kidney disease; I50.33 Acute on chronic diastolic (congestive) heart failure; I24.8 Other forms of acute ischemic heart disease; E05.90 Thyrotoxicosis, unspecified without thyrotoxic crisis or storm; M19.90 Unspecified osteoarthritis, unspecified site; F17.210 Nicotine dependence, cigarettes, uncomplicated; M25.511 Pain in right shoulder; E11.22 Type 2 diabetes mellitus with diabetic chronic kidney disease; N18.9 Chronic kidney disease, unspecified; F41.8 Other specified anxiety disorders; D34 Benign neoplasm of thyroid gland; E78.5 Hyperlipidemia, unspecified; J44.9 Chronic obstructive pulmonary disease, unspecified
CPT/HCPCS: 36415; 71045-TC-FY; 80048; 80053; 82465; 82550; 82962; 83036; 83735; 83880; 84100; 84436; 84439; 84443; 84445; 84480; 84484; 85025; 85027; 85610; 85730; 86376; 93005; 93010; 93306-TC; 99285-25; J1644; J7030

== ENCOUNTER 2019-01-08 20:50 | Inpatient (IN) | payer OTHER ==
[2019-01-08] MEDS ORDERED: ASPIRIN 81 MG CHEWABLE TABLETS PO ONE (20:55)
--- NOTE | 2019-01-08 20:55 | PDOC ---
Rapid Medical Evaluation Time Seen by Provider: 01/08/19 20:53 Medical Evaluation: Allergies Allergy/AdvReac Type Severity Reaction Status Date / Time morphine Allergy Severe Verified 12/23/18 14:20 Penicillins Allergy Severe Hives Verified 12/23/18 14:20 tomato [Tomato] Allergy Unknown Verified 12/23/18 14:20 chocolate AdvReac Unknown Uncoded 12/23/18 14:20 01/08/19 20:54 HPI: c/o B leg swelling x5 days recently discharged for CHF EXAM: B leg edema ORDERS Labs and US Discharge Disposition - Diagnosis Leg swelling - Referrals - Patient Instructions - Post Discharge Activity
[2019-01-08] MEDS ORDERED: ASPIRIN 81 MG CHEWABLE TABLETS ONE (21:23)
[2019-01-08] MEDS ORDERED: FUROSEMIDE 40 MG/4 ML INJECTABLE VIAL IVPUSH ONE ×2 (21:24→21:36)
[2019-01-08] MEDS ORDERED: ACETAMINOPHEN 1000 MG/100 ML VIAL (NON FORMULARY) IVPB ONE (21:24)
[2019-01-08] MEDS ORDERED: ACETAMINOPHEN INJECTION 100 ML IVPB ONE (21:33)
[2019-01-08] MEDS ORDERED: dilTIAZem HCL 50 MG/10 ML - 10 ML VIAL IVPUSH ONE ×2 (21:39→21:40)
[2019-01-08 21:50] LABS: BASO % 0.5 % (0-2.0); EOS % 2.4 % (0-4.5); HEMOGLOBIN 12.8 GM/dL (10.7-15.3); LYMPH % 30.3 % (8-40); MCH 28.9 pg (25.7-33.7); MCHC 31.3 g/dl (32.0-36.0); MEAN CELL VOLUME 92.2 fl (80-96); MEAN PLT VOLUME 11.6 fl (7.5-11.1); MONO % 14.4 % (3.8-10.2); NEUT % 52.4 % (42.8-82.8); PLATELET COUNT 135 K/MM3 (134-434); RBC 4.45 M/mm3 (3.60-5.2); RDW 15.8 % (11.6-15.6); WHITE BLOOD COUNT 5.8 K/mm3 (4.0-10.0)
[2019-01-08 22:00] LABS: ALBUMIN 3.7 g/dl (3.4-5.0); ALK PHOS 90 U/L (45-117); ANION GAP 6 MMOL/L (8-16); BILIRUBIN,TOTAL 0.4 mg/dL (0.2-1); BLOOD UREA NITROGEN 27 mg/dL (7-18); CALCIUM 8.9 mg/dL (8.5-10.1); CHLORIDE 100 mmol/L (98-107); CO2 32 mmol/L (21-32); MAGNESIUM 2.3 mg/dL (1.8-2.4); N-TERMINAL BNP 7849.5 pg/ml (5-125); SGOT/AST 14 U/L (15-37); SGPT/ALT 28 U/L (13-61); SODIUM 138 mmol/L (136-145); TOT PROT 7.5 g/dl (6.4-8.2)
[2019-01-08 22:01] LABS: GLUCOSE,RANDOM 113 mg/dL (74-106); POTASSIUM 3.1 mmol/L (3.5-5.1)
[2019-01-08] MEDS ORDERED: oxyCODONE HCL 5 MG TABLET PO ONE (22:13)
[2019-01-08] MEDS ORDERED: FUROSEMIDE 40 MG/4 ML INJECTABLE VIAL ONE (22:15)
[2019-01-08] MEDS ORDERED: dilTIAZem HCL 125 MG/25 ML - 25 ML VIAL ONE (22:16)
[2019-01-08 22:22] LABS: INR 1.5 (0.83-1.09); PROTHROMBIN TIME (PATIENT) 17.8 SEC (9.7-13.0)
[2019-01-08] MEDS ORDERED: oxyCODONE HCL 5 MG TABLET ONE (22:22)
[2019-01-08] MEDS ORDERED: POTASSIUM CHLORIDE TABS 20 MEQ TABLET.ER (FP) PO ONE ×2 (22:48→22:59)
--- NOTE | 2019-01-08 22:59 | PDOC ---
Documentation entered by Samra Asif SCRIBE, acting as scribe for Vivian Pereira MD. Vivian Pereira MD: This documentation has been prepared by the Yefri tilley Adrianna, SCRIBE, under my direction and personally reviewed by me in its entirety. I confirm that the documentation accurately reflects all work, treatment, procedures, and medical decision making performed by me. Attending Attestation - Resident Resident Name: JennyYosvany - ED Attending Attestation I have performed the following: I have examined & evaluated the patient, The case was reviewed & discussed with the resident, I agree w/resident's findings & plan - HPI HPI: 01/08/19 22:53 58 Y F, with pmh of Afib (on eliquis), COPD, CHF, CKD, sciatica, asthma, DM, HTN, HLD, and arthritis, presenting with worsening SOB and bilateral LE edema. Patient takes Lasix daily. she is also c/o RLE and knee pain, worse with movement. Denies fever, chills, chest pain, palpitation, dizziness, weakness, N, V, D, abdominal pain, bladder and bowel problems. No sick contacts or travel. No new changes in medications. No suspicious food intake Allergies: Morphine, penicillins, tomato, chocolate Past Medical History: sciatica, asthma, DM, HTN, arthritis, afib(on eliquis) Social history: Lives with family. No tobacco, ETOH or drug use. Surgical history: None reported Meds: as documented in EMR PMD: Dr. Fara Bond - Physicial Exam PE: 01/08/19 22:52 Agree with the resident's HPI and PE as documented in the electronic medical record. NAD, well appearing, PERRL, EOMI, nl conjunctiva, anicteric; neck supple. lungs with bilateral crackles, irregularly irregular, tachy. abdomen soft nontender. GOSS x4, no focal neuro deficits. 3+ bilateral pitting peripheral edema in BLE. normal color for ethnicity, WWP. rt knee TTP, ROM limited 2/2 pain/swelling. - Medical Decision Making 01/08/19 22:49 hpi as documented, VS reviewed. DDX CHF exacerbation, lymphedema, arthritis, DVT unlikely DVT with AC already for Afib, but symptomatic, check duplex Patient was given aspirin, Tylenol, additional pain control with oxycodone for her leg pain. She is mildly volume overloaded with 3+ pitting edema bilaterally , given Lasix for diuresis. She was also given diltiazem for rate control due to her history of A. fib currently on anticoagulation. Her tachycardia/RVR is likely also secondary to pain which were appropriately treated. rate control is achieved. repleted potassium. cxr unchanged EKG afib rvr, rate control here; otherwise unchanged from prior. trop neg bnp elevated, but lower than prior, nonspecific. clinically with fluid OD so diuresis, especially with Cr. duplex neg for DVT. admit tele for fluid OD/CHF, Afib RVR and medical management. 01/08/19 23:48 01/09/19 00:30 01/09/19 00:32 Heart Score/ECG Review #1 ECG reviewed & interpreted by me at: 19:30 Compared to previous ECG there are: No significant change 01/08/19 22:50 EKG Afib RVR at 127 bpm, no interval abnormalities, narrow QRS, ST and T wave segments and morphology normal. Nonspecific T wave abnormalities - poor R wave progression. 01/09/19 00:31 - ECG Impressions Tachycardia: Afib w/rapid Vent rate
--- NOTE | 2019-01-08 23:04 | PDOC ---
History of Present Illness - General Chief Complaint: Edema Stated Complaint: LEG SWELLING Time Seen by Provider: 01/08/19 20:53 History Source: Patient Exam Limitations: No Limitations - History of Present Illness Initial Comments: 01/08/19 23:11 58F with a PMH of HTN, COPD, PAF (on eliquis), diastolic CHF, who presents to the ER with b/l lower extremity swelling. The patient states that she "was never fixed" after being discharged from our facility but noticed more swelling in her b/l LE and knee pain "recently". She admits to SOB and palpitations but denies CP, fever, chills, nausea, vomiting. Past History - Past Medical History Allergies/Adverse Reactions: Allergies Allergy/AdvReac Type Severity Reaction Status Date / Time morphine Allergy Severe Verified 12/23/18 14:20 Penicillins Allergy Severe Hives Verified 12/23/18 14:20 tomato [Tomato] Allergy Unknown Verified 12/23/18 14:20 chocolate AdvReac Unknown Uncoded 12/23/18 14:20 Home Medications: Ambulatory Orders Bupropion HCl [Wellbutrin Xl -] 150 mg PO DAILY #30 tab.sr.24h 11/28/15 Furosemide [Lasix -] 40 mg PO BID@0600,1400 #60 tablet 08/14/17 Oxycodone HCl/Acetaminophen [Percocet 10-325 mg Tablet] 1 each PO Q6H 03/27/18 Apixaban [Eliquis] 5 mg PO BID 03/28/18 Gabapentin [Neurontin -] 300 mg PO TID 03/29/18 Albuterol 0.083% Nebulizer Gladis [Ventolin 0.083% Nebulizer Soln -] 1 amp NEB Q4H PRN #120 amp 03/30/18 Docusate Sodium [Colace -] 300 mg PO HS #90 capsule 03/30/18 Lidocaine 5% Patch [Lidoderm -] 1 patch TP DAILY #7 patch 05/04/18 Albuterol Sulfate Inhaler - [Ventolin HFA Inhaler -] 1 inh IH QID PRN 05/21/18 Albuterol 0.083% Nebulizer Gladis [Ventolin 0.083% Nebulizer Soln -] 1 amp NEB Q6H PRN amp 12/28/18 Apixaban [Eliquis -] 5 mg PO BID #30 tablet MDD 2 12/28/18 Atenolol [Tenormin -] 100 mg PO BID #60 tablet MDD 4 12/28/18 Budesonide/Formeterol Fumarate [SYMBICORT 80/4.5mcg -] 2 puff IH BID #1 inhaler 12/28/18 Bupropion HCl [Wellbutrin Xl -] 150 mg PO DAILY tab.sr.24h 12/28/18 Diltiazem Cd [Cardizem Cd -] 240 mg PO DAILY #30 cap.cd.24h MDD 1 12/28/18 Furosemide [Lasix -] 40 mg PO BID@0600,1400 #60 tablet MDD 2 12/28/18 Lidocaine 5% Patch [Lidoderm -] 1 patch TP DAILY #14 patch MDD 1 12/28/18 Anemia: No Asthma: Yes Cancer: No Cardiac Disorders: Yes (Afib) CVA: No COPD: Yes CHF: Yes Dementia: No Diabetes: Yes GI Disorders: No Disorders: Yes (CKD) HTN: Yes Hypercholesterolemia: Yes Liver Disease: No Seizures: No Thyroid Disease: No - Surgical History Abdominal Surgery: No Appendectomy: No Cardiac Surgery: No Cholecystectomy: No Lung Surgery: No Neurologic Surgery: No Orthopedic Surgery: No - Immunization History Td Vaccination: Yes TDAP Vaccination: Yes Immunization Up to Date: Yes - Suicide/Smoking/Psychosocial Hx Smoking Status: Yes Smoking History: Never smoked Years of Tobacco Use: 30 Have you smoked in the past 12 months: Yes Number of Cigarettes Smoked Daily: 4 Cigars Per Day: 0 'Breaking Loose' booklet given: 03/27/18 Hx Alcohol Use: No Drug/Substance Use Hx: No Substance Use Type: None Hx Substance Use Treatment: No Review of Systems - Review of Systems Able to Perform ROS?: Yes Comments:: 01/08/19 23:14 GENERAL/CONSTITUTIONAL: No fever or chills. No weakness. HEAD, EYES, EARS, NOSE AND THROAT: No change in vision. No ear pain or discharge. No sore throat. CARDIOVASCULAR: + for palpitations. No chest pain or lightheadedness. RESPIRATORY: No cough, wheezing, shortness of breath, or hemoptysis. GASTROINTESTINAL: No nausea, vomiting, diarrhea, constipation, or abdominal pain. GENITOURINARY: No dysuria, frequency, hematuria, or change in urination. MUSCULOSKELETAL: + for b/l LE edema. No neck or back pain. SKIN: No rash or lesions. NEUROLOGIC: No headache, numbness, tingling, focal weakness, loss of consciousness, or change in strength/sensation. Is the patient limited Polish proficient: No *Physical Exam - Vital Signs Last Vital Signs Temp Pulse Resp BP Pulse Ox 98 F 88 18 133/74 94 L 01/08/19 20:56 01/08/19 22:21 01/08/19 22:21 01/08/19 22:21 01/08/19 21:31 - Physical Exam Comments: 01/08/19 23:19 GENERAL: Well developed, well nourished. Awake and alert. No acute distress. HEENT: Normocephalic, atraumatic. Hearing grossly normal. Moist mucous membranes. PERRLA, EOMI. No conjunctival pallor. Sclera are non-icteric. NECK: Supple. Full ROM. No JVD. CARDIOVASCULAR: Irregularly irregular rate and rhythm. No murmurs, rubs, or gallops. PULMONARY: No evidence of respiratory distress. Lungs clear to auscultation bilaterally. No wheezing, rales or rhonchi. ABDOMINAL: Soft. Non-tender. Non-distended. No rebound or guarding. GENITOURINARY: No CVA tenderness bilaterally. MUSCULOSKELETAL: Normal range of motion at all joints. No bony deformities or tenderness. EXTREMITIES: No cyanosis. No clubbing. 3-4+ pitting edema in b/l LE up to thigh. SKIN: Warm and dry. Normal capillary refill. No rashes. No jaundice. NEUROLOGICAL: Alert, awake, appropriate. Cranial nerves 2-12 grossly intact. Normal speech. Gait is normal without ataxia. PSYCHIATRIC: Cooperative. Good eye contact. Appropriate mood and affect ED Treatment Course - LABORATORY CBC & Chemistry Diagram: 01/08/19 21:20 01/08/19 21:17 - ADDITIONAL ORDERS Additional order review: Laboratory Results 01/08/19 01/08/19 21:17 21:17 PT with INR 17.80 H INR 1.50 H Sodium 138 Potassium 3.1 L Chloride 100 Carbon Dioxide 32 Anion Gap 6 L BUN 27 H Creatinine 2.0 H Creat Clearance w eGFR 25.42 Random Glucose 113 H Calcium 8.9 Magnesium 2.3 Total Bilirubin 0.4 AST 14 L ALT 28 Alkaline Phosphatase 90 Creatine Kinase 73 Troponin I < 0.02 B-Natriuretic Peptide 7849.5 H Total Protein 7.5 Albumin 3.7 01/08/19 21:20 RBC 4.45 MCV 92.2 MCHC 31.3 L RDW 15.8 H MPV 11.6 H Neutrophils % 52.4 D Lymphocytes % 30.3 D Monocytes % 14.4 H Eosinophils % 2.4 Basophils % 0.5 - RADIOLOGY Radiology Studies Ordered: Category Date Time Status CHEST X-RAY PORTABLE* [RAD] Stat Radiology 01/08/19 21:36 Taken - Medications Given in the ED: ED Medications Discontinued Medications Generic Name Dose Route Start Last Admin Trade Name Freq PRN Reason Stop Dose Admin Acetaminophen 1,000 mg 01/08/19 21:24 01/08/19 21:38 Ofirmev Injection - IVPB 01/08/19 21:25 1,000 mg ONCE ONE Administration Aspirin 162 mg 01/08/19 20:55 01/08/19 21:31 Asa - PO 01/08/19 20:56 162 mg ONCE ONE Administration Diltiazem HCl 10 mg 01/08/19 21:39 01/08/19 22:25 Cardizem Injection - IVPUSH 01/08/19 21:40 Not Given ONCE ONE Diltiazem HCl 20 mg 01/08/19 21:40 01/08/19 22:20 Cardizem Injection - IVPUSH 01/08/19 21:41 20 mg ONCE ONE Administration Furosemide 80 mg 01/08/19 21:24 01/08/19 22:21 Lasix Injection - IVPUSH 01/08/19 21:25 Not Given ONCE ONE Furosemide 40 mg 01/08/19 21:36 01/08/19 22:20 Lasix Injection - IVPUSH 01/08/19 21:37 40 mg ONCE ONE Administration Oxycodone HCl 10 mg 01/08/19 22:13 01/08/19 22:24 Roxicodone - PO 01/08/19 22:14 10 mg ONCE ONE Administration Medical Decision Making - Medical Decision Making 01/08/19 23:20 58F with PMH of CHF and a-fib on eliquis who presents with b/l LE pitting edema concerning for acute exacerbation of diastolic HF. Low likelihood for DVT as pt is on AC but will duplex LE. Labs show Cr increase to 2.0 from 1.5. K is low. Will replete. BNP elevated concerning for CHF exacerbation. EKG read as acute stemi but when c/w prior, unchanged. PE remarkable for pitting edema with clear lungs. Pending duplex and admission. CXR less congested than priors. 01/09/19 00:[address] Greer for admission. *DC/Admit/Observation/Transfer Diagnosis at time of Disposition: Leg swelling CHF (congestive heart failure) Qualifiers: Heart failure type: diastolic Heart failure chronicity: unspecified Qualified Code(s): I50.30 - Unspecified diastolic (congestive) heart failure - Discharge Dispostion Condition at time of disposition: Guarded Decision to Admit order: Yes - Referrals Referrals: Fara Bond NP [Primary Care Provider] - - Patient Instructions - Post Discharge Activity
[2019-01-08 23:26] LABS: PLATELET ESTIMATE ADEQUATE
[2019-01-09] MEDS ORDERED: KCL 10 MEQ IVPB 10 MEQ/100 ML INFUS.BAG IVPB ONE (00:32)
[2019-01-09] MEDS: KCL 10 MEQ IVPB 10 MEQ/100 ML INFUS.BAG IVPB SCH ×3 (00:40→01:47)
--- NOTE | 2019-01-09 01:38 | HP ---
CHIEF COMPLAINT: b/l shoulder pain PCP: Fara Bond Patient is not cooperative with interview- history obtained from EMR HISTORY OF PRESENT ILLNESS: 58 y/o woman complained of B/L shoulder pain after moving a water heater on Friday. Pain started in her L shoulder then radiated to her R shoulder. While en route to ER with EMS she was noted to be in Afib with RVR with HR at 160 bpm - responded to diltiazem. ER course was notable for: (1) diltiazem (2) furosemide (3) cxr Recent Travel: no PAST MEDICAL HISTORY: sciatica, asthma, DM, HTN, arthritis, Afib on Eliquis PAST SURGICAL HISTORY: no Social History: Lives with family. No tobacco, ETOH or drug use. Family History: Allergies morphine Allergy (Severe, Verified 12/23/18 14:20) Penicillins Allergy (Severe, Verified 12/23/18 14:20) Hives tomato [Tomato] Allergy (Unknown, Verified 12/23/18 14:20) chocolate Adverse Reaction (Unknown, Uncoded 12/23/18 14:20) HOME MEDICATIONS: Home Medications Medication Instructions Recorded Bupropion HCl [Wellbutrin Xl -] 150 mg PO DAILY #30 tab.sr.24h 11/28/15 Furosemide [Lasix -] 40 mg PO BID@0600,1400 #60 tablet 08/14/17 Oxycodone HCl/Acetaminophen 1 each PO Q6H 03/27/18 [Percocet 10-325 mg Tablet] Apixaban [Eliquis] 5 mg PO BID 03/28/18 Gabapentin [Neurontin -] 300 mg PO TID 03/29/18 Albuterol 0.083% Nebulizer Gladis 1 amp NEB Q4H PRN #120 amp 03/30/18 [Ventolin 0.083% Nebulizer Soln -] Docusate Sodium [Colace -] 300 mg PO HS #90 capsule 03/30/18 Lidocaine 5% Patch [Lidoderm -] 1 patch TP DAILY #7 patch 05/04/18 Albuterol Sulfate Inhaler - 1 inh IH QID PRN 05/21/18 [Ventolin HFA Inhaler -] Albuterol 0.083% Nebulizer Gladis 1 amp NEB Q6H PRN amp 12/28/18 [Ventolin 0.083% Nebulizer Soln -] Apixaban [Eliquis -] 5 mg PO BID #30 tablet MDD 2 12/28/18 Atenolol [Tenormin -] 100 mg PO BID #60 tablet MDD 4 12/28/18 Budesonide/Formeterol Fumarate 2 puff IH BID #1 inhaler 12/28/18 [SYMBICORT 80/4.5mcg -] Bupropion HCl [Wellbutrin Xl -] 150 mg PO DAILY tab.sr.24h 12/28/18 Diltiazem Cd [Cardizem Cd -] 240 mg PO DAILY #30 cap.cd.24h MDD 12/28/18 1 Furosemide [Lasix -] 40 mg PO BID@0600,1400 #60 tablet 12/28/18 MDD 2 Lidocaine 5% Patch [Lidoderm -] 1 patch TP DAILY #14 patch MDD 1 12/28/18 REVIEW OF SYSTEMS- patient not cooperative with interview PHYSICAL EXAMINATION Vital Signs - 24 hr 01/08/19 01/08/19 01/08/19 20:56 21:31 22:21 Temperature 98 F Pulse Rate 93 H Pulse Rate [ 116 H 88 Apical] Respiratory 20 18 18 Rate Blood Pressure 147/78 Blood Pressure 118/87 133/74 [Left Arm] O2 Sat by Pulse 94 L 94 L Oximetry (%) GENERAL: drowsy, noncooperative HEAD: Normal with no signs of trauma. EYES: Pupils equal, round and reactive to light, extraocular movements intact, sclera anicteric, conjunctiva clear. No lid lag. EARS, NOSE, THROAT: Ears normal, nares patent, oropharynx clear without exudates. Moist mucous membranes. NECK: Normal range of motion, supple without lymphadenopathy, JVD, or masses. LUNGS: Breath sounds equal, clear to auscultation bilaterally. No wheezes, and no crackles. No accessory muscle use. HEART: irregular, tachycardia ABDOMEN: Soft, nontender, not distended, normoactive bowel sounds, no guarding, no rebound, no masses. MUSCULOSKELETAL: Normal range of motion at all joints. No bony deformities or tenderness. No CVA tenderness. UPPER EXTREMITIES: 2+ pulses, warm, well-perfused. No cyanosis. No clubbing. No peripheral edema. LOWER EXTREMITIES: b/l lower extremity pitting edema - 2+ PSYCHIATRIC: drowsy SKIN: Warm, dry, normal turgor, no rashes or lesions noted, normal capillary refill. Laboratory Results - last 24 hr 01/08/19 01/08/19 01/08/19 21:17 21:17 21:20 WBC 5.8 RBC 4.45 Hgb 12.8 Hct 41.0 MCV 92.2 MCH 28.9 MCHC 31.3 L RDW 15.8 H Plt Count 135 MPV 11.6 H Absolute Neuts (auto) 3.0 Neutrophils % 52.4 D Lymphocytes % 30.3 D Monocytes % 14.4 H Eosinophils % 2.4 Basophils % 0.5 Nucleated RBC % 0 Platelet Estimate Adequate Platelet Comment [employer] Specialist PT with INR 17.80 H INR 1.50 H Sodium 138 Potassium 3.1 L Chloride 100 Carbon Dioxide 32 Anion Gap 6 L BUN 27 H Creatinine 2.0 H Creat Clearance w eGFR 25.42 Random Glucose 113 H Calcium 8.9 Magnesium 2.3 Total Bilirubin 0.4 AST 14 L ALT 28 Alkaline Phosphatase 90 Creatine Kinase 73 Troponin I < 0.02 B-Natriuretic Peptide 7849.5 H Total Protein 7.5 Albumin 3.7 cxr - AICD in place lower ext duplex- reviewed, neg for dvt ASSESSMENT/PLAN: #Afib with RVR on ELiquis - uncontrolled rate -troponin was neg -tele-observation -metoprolol 50mg po stat -resume home meds- diltiazem ER and atenolol and titrate as needed -cardiology eval -trend troponin -home dose of Eliquis #chf- possible CHF exacerbation, high bnp, b/l lower pedal edema - lower ext duplex- negative for dvt -echo -i/o -daily weights -Bblockers -lasix 40mg IV bid -lower ext elevation #Drowsiness- patient is arousable but somnolent- possibly from percocet? -monitor -avoid sedatives for now #Asthma-controlled #DM -a1c -lispro sliding scale #HTN- controlled #arthritis -heparin sc for dvt ppx Visit type - Emergency Visit Emergency Visit: Yes ED Registration Date: 01/09/19 Care time: The patient presented to the Emergency Department on the above date and was hospitalized for further evaluation of their emergent condition. - New Patient This patient is new to me today: Yes Date on this admission: 01/09/19 - Critical Care Critical Care patient: No
[2019-01-09] MEDS ORDERED: PNEUMOC 13-VAL CONJ-DIP CRM/PF 0.5 ML DISP.SYRIN IM ONE (04:01)
[2019-01-09] MEDS ORDERED: ALBUTEROL SO4 0.083% IH SOL 2.5 MG/3 ML VIAL.NEB. NEB PRN (04:39)
[2019-01-09] MEDS ORDERED: METOPROLOL TARTRATE 50 MG TABLET (FP) PO ONE (04:40)
[2019-01-09] MEDS: FUROSEMIDE 40 MG/4 ML INJECTABLE VIAL IVPUSH SCH ×2 (05:10→15:09)
[2019-01-09] MEDS: GABAPENTIN 300 MG CAPSULE (FP) PO SCH ×3 (05:11→21:53)
[2019-01-09 06:42] LABS: HEMOGLOBIN 12.2 GM/dL (10.7-15.3); MCH 29.4 pg (25.7-33.7); MCHC 32.1 g/dl (32.0-36.0); MEAN CELL VOLUME 91.5 fl (80-96); MEAN PLT VOLUME 11.2 fl (7.5-11.1); PLATELET COUNT 124 K/MM3 (134-434); RBC 4.16 M/mm3 (3.60-5.2); RDW 15.8 % (11.6-15.6); WHITE BLOOD COUNT 4.3 K/mm3 (4.0-10.0)
[2019-01-09 07:20] LABS: ANION GAP 4 MMOL/L (8-16); BLOOD UREA NITROGEN 25 mg/dL (7-18); CALCIUM 8.6 mg/dL (8.5-10.1); CHLORIDE 105 mmol/L (98-107); CO2 31 mmol/L (21-32); CREATININE 1.7 mg/dL (0.55-1.3); GLUCOSE,RANDOM 102 mg/dL (74-106); MAGNESIUM 2.1 mg/dL (1.8-2.4); POTASSIUM 3.8 mmol/L (3.5-5.1); SODIUM 140 mmol/L (136-145)
[2019-01-09] MEDS ORDERED: FLU VACCINE QUAD 60 MCG/0.5 ML (MDV 18-19) IM ONE (09:00)
--- NOTE | 2019-01-09 09:28 | PN ---
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, Physician History of Present Illness: 58 y/o woman complained of B/L shoulder pain after moving a water heater on Friday. Pain started in her L shoulder then radiated to her R shoulder. While en route to ER with EMS she was noted to be in Afib with RVR with HR at 160 bpm - responded to diltiazem. - Current Medication List Current Medications: Active Medications Albuterol Sulfate (Ventolin 0.083% Nebulizer Soln -) 1 amp NEB Q4H PRN PRN Reason: SHORT OF BREATH/WHEEZING Apixaban (Eliquis -) 5 mg PO BID [facility] Atenolol (Tenormin -) 50 mg PO BID [facility] Budesonide/Formoterol Fumarate (Symbicort 80/4.5mcg -) 2 puff IH BID [facility] Bupropion HCl (Wellbutrin Xl -) 150 mg PO DAILY [facility] Diltiazem HCl (Cardizem Cd -) 240 mg PO DAILY [facility] Furosemide (Lasix Injection -) 40 mg IVPUSH BID@0600,1400 [facility] Last Admin: 01/09/19 05:10 Dose: 40 mg Gabapentin (Neurontin -) 300 mg PO TID [facility] Last Admin: 01/09/19 05:11 Dose: 300 mg - Objective Vital Signs: Vital Signs Temperature 98.1 F 01/09/19 06:00 Pulse Rate 105 H 01/09/19 07:00 Respiratory Rate 18 01/09/19 07:00 Blood Pressure 136/84 01/09/19 07:00 O2 Sat by Pulse Oximetry (%) 99 01/09/19 03:40 Labs: CBC, BMP 01/09/19 05:30 01/09/19 05:30 INR, PTT INR 1.50 (0.83-1.09) H 01/08/19 21:17 Problem List - Problems (1) Atrial fibrillation with rapid ventricular response Assessment/Plan: -On ELiquis - uncontrolled rate - -tele- -increase atenolol 75 bid -cardiology eval -trend troponin Code(s): I48.91 - UNSPECIFIED ATRIAL FIBRILLATION (2) CHF (congestive heart failure) Assessment/Plan: possible CHF exacerbation, high bnp, b/l lower pedal edema - -echo -i/o -daily weights -lasix 40mg IV bid Code(s): I50.9 - HEART FAILURE, UNSPECIFIED Qualifiers: Heart failure type: diastolic Heart failure chronicity: unspecified Qualified Code(s): I50.30 - Unspecified diastolic (congestive) heart failure (3) Leg swelling Assessment/Plan: lower ext duplex- negative for dvt Code(s): M79.89 - OTHER SPECIFIED SOFT TISSUE DISORDERS (4) Hypertension Code(s): I10 - ESSENTIAL (PRIMARY) HYPERTENSION (5) COPD (chronic obstructive pulmonary disease) Assessment/Plan: stable Code(s): J44.9 - CHRONIC OBSTRUCTIVE PULMONARY DISEASE, UNSPECIFIED Qualifiers: (6) Diabetes Code(s): E11.9 - TYPE 2 DIABETES MELLITUS WITHOUT COMPLICATIONS Qualifiers: Diabetes mellitus type: type 2
[2019-01-09] MEDS ORDERED: PT OWN MED DRAWER 7, Y5N ONE ×2 (09:42→13:37)
--- NOTE | 2019-01-09 09:42 | EKG ---
Test Reason : Blood Pressure : / mmHG Vent. Rate : 127 BPM Atrial Rate : 127 BPM P-R Int : 000 ms QRS Dur : 108 ms QT Int : 350 ms P-R-T Axes : 000 -54 109 degrees QTc Int : 508 ms ATRIAL FIBRILLATION LEFT ANTERIOR FASCICULAR BLOCK LEFT VENTRICULAR HYPERTROPHY WITH REPOLARIZATION ABNORMALITY ST ELEVATION CONSIDER INFERIOR INJURY OR ACUTE INFARCT Consider right ventricular involvement in acute inferior infarct ABNORMAL ECG WHEN COMPARED WITH ECG OF 24-DEC-2018 10:44, PREMATURE SUPRAVENTRICULAR COMPLEXES ARE NOW PRESENT ST ELEVATION NOW PRESENT IN INFERIOR LEADS Confirmed by CLIFF MCDANIEL, BELLA ([id number]) on 01/09/2019 9:41:56 AM Referred By: Confirmed By:BELLA CORONADO MD
[2019-01-09] MEDS: APIXABAN 5 MG TABLET PO SCH ×2 (09:53→21:53)
[2019-01-09] MEDS: BUDESONIDE/FORMETEROL FUMARATE 80/4.5 mcg INHALER IH SCH ×2 (09:54→21:51)
[2019-01-09] MEDS ORDERED: ATENOLOL 50 MG TABLET (FP) PO SCH (10:00)
[2019-01-09] MEDS ORDERED: HEPARIN NA (PORCINE) 5,000 UNITS/ML 1ML VIAL SQ SCH (10:00)
[2019-01-09] MEDS: oxyCODONE HCL 5 MG TABLET PO PRN ×2 (13:43→21:52)
[2019-01-09] MEDS: ACETAMINOPHEN 325 MG TABLET (FP) PO PRN ×2 (13:46→21:53)
--- NOTE | 2019-01-09 17:54 | CON.CARD ---
Consult Consult Specialty:: Cardiology Reason for Consultation:: Afib/edema - History of Present Illness History of Present Illness: 58F with ho Afib, HfPEF, CKD as recently discharged after managmeent of her heart failure and rate contrl of her Afib on Atenolol 10mg bid and diltiazem 240mg qd. She reports being compliant with her medications. Noted return of the swelling but no dypspena. Also there is tachycardia with HR on telemetry in 120- 130 range. - Past Medical History Cardio/Vascular: Yes: AFIB, CHF, HTN Pulmonary: Yes: COPD Renal/: Yes: Renal Inusuff (CKD) Endocrine: Yes: Diabetes Mellitus - Alcohol/Substance Use Hx Alcohol Use: No History of Substance Use: reports: None - Smoking History Smoking history: Unknown if ever smoked Have you smoked in the past 12 months: Yes Aproximately how many cigarettes per day: 4 - Social History Usual Living Arrangement: With Spouse (and two grand children) ADL: Independent History of Recent Travel: No Home Medications - Allergies Allergies/Adverse Reactions: Allergies Allergy/AdvReac Type Severity Reaction Status Date / Time morphine Allergy Severe Verified 01/09/19 06:22 Penicillins Allergy Severe Hives Verified 01/09/19 06:22 tomato [Tomato] Allergy Unknown Verified 01/09/19 06:22 chocolate AdvReac Unknown Uncoded 01/09/19 06:22 - Home Medications Home Medications: Ambulatory Orders Furosemide [Lasix -] 40 mg PO BID@0600,1400 #60 tablet 08/14/17 Oxycodone HCl/Acetaminophen [Percocet 10-325 mg Tablet] 1 each PO Q6H 03/27/18 Apixaban [Eliquis] 5 mg PO BID 03/28/18 Gabapentin [Neurontin -] 300 mg PO TID 03/29/18 Albuterol 0.083% Nebulizer Gladis [Ventolin 0.083% Nebulizer Soln -] 1 amp NEB Q4H PRN #120 amp 03/30/18 Lidocaine 5% Patch [Lidoderm -] 1 patch TP DAILY #7 patch 05/04/18 Albuterol Sulfate Inhaler - [Ventolin HFA Inhaler -] 1 inh IH QID PRN 05/21/18 Apixaban [Eliquis -] 5 mg PO BID #30 tablet MDD 2 12/28/18 Budesonide/Formeterol Fumarate [SYMBICORT 80/4.5mcg -] 2 puff IH BID #1 inhaler 12/28/18 Bupropion HCl [Wellbutrin Xl -] 150 mg PO DAILY tab.sr.24h 12/28/18 Diltiazem Cd [Cardizem Cd -] 240 mg PO DAILY #30 cap.cd.24h MDD 1 12/28/18 Furosemide [Lasix -] 40 mg PO BID@0600,1400 #60 tablet MDD 2 12/28/18 Atenolol [Tenormin -] 50 mg PO BID MDD 4 01/09/19 Review of Systems - Review of Systems Constitutional: reports: No Symptoms Eyes: reports: No Symptoms HENT: reports: No Symptoms Neck: reports: No Symptoms Cardiovascular: reports: No Symptoms Respiratory: reports: No Symptoms Gastrointestinal: reports: No Symptoms Genitourinary: reports: No Symptoms Breasts: reports: No Symptoms Reported Musculoskeletal: reports: No Symptoms Vital Signs: Vital Signs Temperature 97.8 F 01/09/19 10:00 Pulse Rate 96 H 01/09/19 10:00 Respiratory Rate 18 01/09/19 10:00 Blood Pressure 127/90 01/09/19 10:00 O2 Sat by Pulse Oximetry (%) 99 01/09/19 03:40 Constitutional: Yes: Well Nourished, No Distress Eyes: Yes: Conjunctiva Clear, EOM Intact HENT: Yes: Atraumatic, Normocephalic Neck: Yes: Supple, Trachea Midline Respiratory: Yes: Regular, CTA Bilaterally Gastrointestinal: Yes: Normal Bowel Sounds, Soft Cardiovascular: Yes: Tachycardia, Pulse Irregular JVD: No Carotid Bruit: No Heart Sounds: Yes: S1, S2 Edema: Yes Edema: LLE: 1+, RLE: 1+ - Other Data Labs, Other Data: CBC, BMP 01/09/19 05:30 01/09/19 05:30 INR, PTT INR 1.50 (0.83-1.09) H 01/08/19 21:17 Troponin, BNP 01/08/19 01/09/19 21:17 05:30 Troponin I < 0.02 < 0.02 B-Natriuretic Peptide 7849.5 H Troponin, BNP 01/08/19 01/09/19 21:17 05:30 Troponin I < 0.02 < 0.02 B-Natriuretic Peptide 7849.5 H Afib RVR LAD LAHB Problem List - Problems (1) CHF (congestive heart failure) Code(s): I50.9 - HEART FAILURE, UNSPECIFIED Qualifiers: Heart failure type: diastolic Heart failure chronicity: unspecified Qualified Code(s): I50.30 - Unspecified diastolic (congestive) heart failure (2) Acute on chronic diastolic (congestive) heart failure Code(s): I50.33 - ACUTE ON CHRONIC DIASTOLIC (CONGESTIVE) HEART FAILURE (3) Afib Code(s): I48.91 - UNSPECIFIED ATRIAL FIBRILLATION Qualifiers: Atrial fibrillation type: unspecified Qualified Code(s): I48.91 - Unspecified atrial fibrillation Assessment/Plan She reports compliance with all her medications at the time of discharge. Her HR is slower now with periods of RVR. Increase atenolol 100mg bid Continue Diltiazem Continue IV diuresis. Continue eliquis.
[2019-01-09] MEDS: ATENOLOL 50 MG TABLET (FP) PO SCH (21:54)
[2019-01-10] MEDS: FUROSEMIDE 40 MG/4 ML INJECTABLE VIAL IVPUSH SCH ×2 (06:43→13:13)
[2019-01-10] MEDS: ACETAMINOPHEN 325 MG TABLET (FP) PO PRN ×3 (06:44→21:39)
[2019-01-10] MEDS: GABAPENTIN 300 MG CAPSULE (FP) PO SCH ×3 (06:44→21:38)
[2019-01-10] MEDS: oxyCODONE HCL 5 MG TABLET PO PRN ×3 (06:44→21:38)
[2019-01-10 06:54] LABS: BASO % 0.6 % (0-2.0); EOS % 3.4 % (0-4.5); HEMATOCRIT 37.2 % (32.4-45.2); LYMPH % 36.5 % (8-40); MCH 29.2 pg (25.7-33.7); MCHC 32.3 g/dl (32.0-36.0); MEAN CELL VOLUME 90.6 fl (80-96); MEAN PLT VOLUME 11.2 fl (7.5-11.1); MONO % 13.1 % (3.8-10.2); NEUT % 46.4 % (42.8-82.8); PLATELET COUNT 121 K/MM3 (134-434); RBC 4.11 M/mm3 (3.60-5.2); RDW 15.7 % (11.6-15.6); WHITE BLOOD COUNT 4.8 K/mm3 (4.0-10.0)
[2019-01-10 07:27] LABS: ALBUMIN 3.2 g/dl (3.4-5.0); ALK PHOS 74 U/L (45-117); ANION GAP 5 MMOL/L (8-16); BILIRUBIN,TOTAL 0.4 mg/dL (0.2-1); BLOOD UREA NITROGEN 26 mg/dL (7-18); CALCIUM 8.8 mg/dL (8.5-10.1); CHLORIDE 104 mmol/L (98-107); CO2 31 mmol/L (21-32); CREATININE 1.6 mg/dL (0.55-1.3); GLUCOSE,RANDOM 106 mg/dL (74-106); POTASSIUM 3.6 mmol/L (3.5-5.1); SGOT/AST 10 U/L (15-37); SGPT/ALT 22 U/L (13-61); SODIUM 140 mmol/L (136-145); TOT PROT 6.6 g/dl (6.4-8.2)
[2019-01-10] MEDS: APIXABAN 5 MG TABLET PO SCH ×2 (09:32→21:38)
[2019-01-10] MEDS: ATENOLOL 50 MG TABLET (FP) PO SCH ×2 (09:32→21:38)
[2019-01-10] MEDS: LIDOCAINE 5% TOPICAL PATCH TP SCH (09:33)
[2019-01-10] MEDS ORDERED: PT OWN MED DRAWER 7, Y5N ONE (09:40)
[2019-01-10] MEDS: BUDESONIDE/FORMETEROL FUMARATE 80/4.5 mcg INHALER IH SCH ×2 (09:45→21:39)
--- NOTE | 2019-01-10 10:55 | PN ---
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, Physician - Current Medication List Current Medications: Active Medications Acetaminophen (Tylenol -) 325 mg PO Q6H PRN PRN Reason: PAIN Last Admin: 01/10/19 06:44 Dose: 325 mg Albuterol Sulfate (Ventolin 0.083% Nebulizer Soln -) 1 amp NEB Q4H PRN PRN Reason: SHORT OF BREATH/WHEEZING Apixaban (Eliquis -) 5 mg PO BID [facility] Last Admin: 01/10/19 09:32 Dose: 5 mg Atenolol (Tenormin -) 75 mg PO BID [facility] Last Admin: 01/10/19 09:32 Dose: 75 mg Budesonide/Formoterol Fumarate (Symbicort 80/4.5mcg -) 2 puff IH BID [facility] Last Admin: 01/10/19 09:45 Dose: 2 puff Bupropion HCl (Wellbutrin Xl -) 150 mg PO DAILY [facility] Last Admin: 01/10/19 09:43 Dose: 150 mg Diltiazem HCl (Cardizem Cd -) 240 mg PO DAILY [facility] Last Admin: 01/10/19 09:32 Dose: 240 mg Furosemide (Lasix Injection -) 40 mg IVPUSH BID@0600,1400 [facility] Last Admin: 01/10/19 06:43 Dose: 40 mg Gabapentin (Neurontin -) 300 mg PO TID [facility] Last Admin: 01/10/19 06:44 Dose: 300 mg Lidocaine (Lidoderm Patch -) 1 patch TP DAILY [facility] Last Admin: 01/10/19 09:33 Dose: 1 patch Oxycodone HCl (Roxicodone -) 10 mg PO Q6H PRN PRN Reason: PAIN- Last Admin: 01/10/19 06:44 Dose: 10 mg - Objective Vital Signs: Vital Signs Temperature 97.8 F 01/09/19 10:00 Pulse Rate 105 H 01/09/19 22:00 Respiratory Rate 18 01/09/19 22:00 Blood Pressure 150/89 01/09/19 22:00 O2 Sat by Pulse Oximetry (%) 96 01/09/19 21:00 Cardiovascular: Yes: Tachycardia, Pulse Irregular, S1, S2 Respiratory: Yes: Rales Gastrointestinal: Yes: Normal Bowel Sounds, Soft Edema: Yes Labs: CBC, BMP 01/10/19 05:30 01/10/19 05:30 INR, PTT INR 1.50 (0.83-1.09) H 01/08/19 21:17 Problem List - Problems (1) Atrial fibrillation with rapid ventricular response Assessment/Plan: -On ELiquis - uncontrolled rate - -tele- -increase atenolol 100 bid -cardiology eval -trend troponin Code(s): I48.91 - UNSPECIFIED ATRIAL FIBRILLATION (2) CHF (congestive heart failure) Assessment/Plan: possible CHF exacerbation, high bnp, b/l lower pedal edema - -echo -i/o -daily weights -lasix 40mg IV bid Code(s): I50.9 - HEART FAILURE, UNSPECIFIED Qualifiers: Heart failure type: diastolic Heart failure chronicity: unspecified Qualified Code(s): I50.30 - Unspecified diastolic (congestive) heart failure (3) Leg swelling Assessment/Plan: lower ext duplex- negative for dvt Code(s): M79.89 - OTHER SPECIFIED SOFT TISSUE DISORDERS (4) Hypertension Code(s): I10 - ESSENTIAL (PRIMARY) HYPERTENSION (5) COPD (chronic obstructive pulmonary disease) Assessment/Plan: stable Code(s): J44.9 - CHRONIC OBSTRUCTIVE PULMONARY DISEASE, UNSPECIFIED Qualifiers: (6) Diabetes Code(s): E11.9 - TYPE 2 DIABETES MELLITUS WITHOUT COMPLICATIONS Qualifiers: Diabetes mellitus type: type 2
--- NOTE | 2019-01-10 15:46 | PN ---
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, Physician Chief Complaint: cardiology FU Telem with frequent rapid HR average about 100-110 History of Present Illness: 58F with ho Afib, HfPEF, CKD as recently discharged after managmeent of her heart failure and rate contrl of her Afib on Atenolol 10mg bid and diltiazem 240mg qd. She reports being compliant with her medications. Noted return of the swelling but no dypspena. Also there is tachycardia with HR on telemetry in 120- 130 range. - Current Medication List Current Medications: Active Medications Acetaminophen (Tylenol -) 325 mg PO Q6H PRN PRN Reason: PAIN Last Admin: 01/10/19 06:44 Dose: 325 mg Albuterol Sulfate (Ventolin 0.083% Nebulizer Soln -) 1 amp NEB Q4H PRN PRN Reason: SHORT OF BREATH/WHEEZING Apixaban (Eliquis -) 5 mg PO BID [facility] Last Admin: 01/10/19 09:32 Dose: 5 mg Atenolol (Tenormin -) 100 mg PO BID [facility] Budesonide/Formoterol Fumarate (Symbicort 80/4.5mcg -) 2 puff IH BID [facility] Last Admin: 01/10/19 09:45 Dose: 2 puff Bupropion HCl (Wellbutrin Xl -) 150 mg PO DAILY [facility] Last Admin: 01/10/19 09:43 Dose: 150 mg Diltiazem HCl (Cardizem Cd -) 300 mg PO DAILY [facility] Furosemide (Lasix Injection -) 40 mg IVPUSH BID@0600,1400 [facility] Last Admin: 01/10/19 13:13 Dose: 40 mg Gabapentin (Neurontin -) 300 mg PO TID [facility] Last Admin: 01/10/19 13:13 Dose: 300 mg Lidocaine (Lidoderm Patch -) 1 patch TP DAILY [facility] Last Admin: 01/10/19 09:33 Dose: 1 patch Oxycodone HCl (Roxicodone -) 10 mg PO Q6H PRN PRN Reason: PAIN- Last Admin: 01/10/19 06:44 Dose: 10 mg - Objective Vital Signs: Vital Signs Temperature 97.7 F 01/10/19 08:00 Pulse Rate 112 H 01/10/19 08:00 Respiratory Rate 18 01/10/19 09:00 Blood Pressure 140/93 01/10/19 08:00 O2 Sat by Pulse Oximetry (%) 96 01/10/19 09:00 Constitutional: Yes: Well Nourished, No Distress Eyes: Yes: Conjunctiva Clear, EOM Intact HENT: Yes: Atraumatic, Normocephalic Neck: Yes: Supple, Trachea Midline Cardiovascular: Yes: Pulse Irregular, JVD Respiratory: Yes: Regular, CTA Bilaterally Gastrointestinal: Yes: Normal Bowel Sounds, Soft Edema: Yes Edema: LLE: 1+, RLE: 1+ Labs: CBC, BMP 01/10/19 05:30 01/10/19 05:30 INR, PTT INR 1.50 (0.83-1.09) H 01/08/19 21:17 Problem List - Problems (1) CHF (congestive heart failure) Code(s): I50.9 - HEART FAILURE, UNSPECIFIED Qualifiers: Heart failure type: diastolic Heart failure chronicity: unspecified Qualified Code(s): I50.30 - Unspecified diastolic (congestive) heart failure (2) Acute on chronic diastolic (congestive) heart failure Code(s): I50.33 - ACUTE ON CHRONIC DIASTOLIC (CONGESTIVE) HEART FAILURE (3) Afib Code(s): I48.91 - UNSPECIFIED ATRIAL FIBRILLATION Qualifiers: Atrial fibrillation type: unspecified Qualified Code(s): I48.91 - Unspecified atrial fibrillation Assessment/Plan She reports compliance with all her medications at the time of discharge. Her HR is slower now with periods of RVR. Increase atenolol 100mg bid Increase Diltiazem 300 Continue IV diuresis. Continue eliquis.
[2019-01-11] MEDS: FUROSEMIDE 40 MG/4 ML INJECTABLE VIAL IVPUSH SCH ×2 (05:57→15:52)
[2019-01-11] MEDS: GABAPENTIN 300 MG CAPSULE (FP) PO SCH ×3 (05:57→21:18)
[2019-01-11] MEDS: oxyCODONE HCL 5 MG TABLET PO PRN ×3 (06:39→20:00)
[2019-01-11] MEDS ORDERED: PT OWN MED DRAWER 7, Y5N ONE ×3 (09:42→15:48)
[2019-01-11] MEDS: ATENOLOL 50 MG TABLET (FP) PO SCH ×2 (10:10→21:19)
[2019-01-11] MEDS: APIXABAN 5 MG TABLET PO SCH ×2 (10:11→21:18)
[2019-01-11] MEDS: LIDOCAINE 5% TOPICAL PATCH TP SCH (10:13)
[2019-01-11] MEDS: BUDESONIDE/FORMETEROL FUMARATE 80/4.5 mcg INHALER IH SCH ×2 (10:15→21:19)
--- NOTE | 2019-01-11 11:11 | PN ---
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, Physician Chief Complaint: patient seen and examined complainig of right molar pain - Current Medication List Current Medications: Active Medications Acetaminophen (Tylenol -) 325 mg PO Q6H PRN PRN Reason: PAIN Last Admin: 01/10/19 21:39 Dose: 325 mg Albuterol Sulfate (Ventolin 0.083% Nebulizer Soln -) 1 amp NEB Q4H PRN PRN Reason: SHORT OF BREATH/WHEEZING Apixaban (Eliquis -) 5 mg PO BID [facility] Last Admin: 01/11/19 10:11 Dose: 5 mg Atenolol (Tenormin -) 100 mg PO BID [facility] Last Admin: 01/11/19 10:10 Dose: 100 mg Budesonide/Formoterol Fumarate (Symbicort 80/4.5mcg -) 2 puff IH BID [facility] Last Admin: 01/11/19 10:15 Dose: 2 puff Bupropion HCl (Wellbutrin Xl -) 150 mg PO DAILY [facility] Last Admin: 01/11/19 10:11 Dose: 150 mg Diltiazem HCl (Cardizem Cd -) 300 mg PO DAILY [facility] Last Admin: 01/11/19 10:12 Dose: 300 mg Furosemide (Lasix Injection -) 40 mg IVPUSH BID@0600,1400 [facility] Last Admin: 01/11/19 05:57 Dose: 40 mg Gabapentin (Neurontin -) 300 mg PO TID [facility] Last Admin: 01/11/19 05:57 Dose: 300 mg Lidocaine (Lidoderm Patch -) 1 patch TP DAILY [facility] Last Admin: 01/11/19 10:13 Dose: 1 patch Oxycodone HCl (Roxicodone -) 10 mg PO Q6H PRN PRN Reason: PAIN- Last Admin: 01/11/19 06:39 Dose: 10 mg - Objective Vital Signs: Vital Signs Temperature 98.4 F 01/11/19 10:27 Pulse Rate 124 H 01/11/19 10:00 Respiratory Rate 18 01/11/19 10:00 Blood Pressure 148/98 01/11/19 10:00 O2 Sat by Pulse Oximetry (%) 96 01/11/19 09:00 Constitutional: Yes: Calm HENT: Yes: Other (on oral examine small tooth seen on right lower tooth bed behind the molar) Cardiovascular: Yes: Regular Rate and Rhythm, Pulse Irregular, S1, S2 Respiratory: Yes: Diminished Gastrointestinal: Yes: Normal Bowel Sounds, Soft Edema: Yes Edema: LLE: 2+, RLE: 2+ Neurological: Yes: Alert, Oriented Labs: CBC, BMP 01/10/19 05:30 01/10/19 05:30 INR, PTT INR 1.50 (0.83-1.09) H 01/08/19 21:17 Problem List - Problems (1) Leg swelling Assessment/Plan: iv lasix bid daily weights Code(s): M79.89 - OTHER SPECIFIED SOFT TISSUE DISORDERS (2) Acute on chronic diastolic (congestive) heart failure Assessment/Plan: iv lasix bid Code(s): I50.33 - ACUTE ON CHRONIC DIASTOLIC (CONGESTIVE) HEART FAILURE (3) Atrial fibrillation with rapid ventricular response Assessment/Plan: atenolol 100mg bid diltiazem 300mg daily eliquis Code(s): I48.91 - UNSPECIFIED ATRIAL FIBRILLATION (4) Tooth pain Assessment/Plan: abx allergy to pcn [facility] Code(s): K08.89 - OTHER SPECIFIED DISORDERS OF TEETH AND SUPPORTING STRUCTURES
[2019-01-11] MEDS ORDERED: CLINDAMYCIN HCL 150 MG CAPSULE (FP) PO SCH (14:00)
--- NOTE | 2019-01-11 15:44 | PN ---
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, Physician History of Present Illness: seen and examined today in nad. states she is feeling better. still has b/l Le edema, slightly improved. reports urinating more than usual. - Current Medication List Current Medications: Active Medications Acetaminophen (Tylenol -) 325 mg PO Q6H PRN PRN Reason: PAIN Last Admin: 01/10/19 21:39 Dose: 325 mg Albuterol Sulfate (Ventolin 0.083% Nebulizer Soln -) 1 amp NEB Q4H PRN PRN Reason: SHORT OF BREATH/WHEEZING Apixaban (Eliquis -) 5 mg PO BID [facility] Last Admin: 01/11/19 10:11 Dose: 5 mg Atenolol (Tenormin -) 100 mg PO BID [facility] Last Admin: 01/11/19 10:10 Dose: 100 mg Budesonide/Formoterol Fumarate (Symbicort 80/4.5mcg -) 2 puff IH BID [facility] Last Admin: 01/11/19 10:15 Dose: 2 puff Bupropion HCl (Wellbutrin Xl -) 150 mg PO DAILY [facility] Last Admin: 01/11/19 10:11 Dose: 150 mg Clindamycin HCl (Cleocin -) 150 mg PO TID [facility] Diltiazem HCl (Cardizem Cd -) 300 mg PO DAILY [facility] Last Admin: 01/11/19 10:12 Dose: 300 mg Furosemide (Lasix Injection -) 40 mg IVPUSH BID@0600,1400 [facility] Last Admin: 01/11/19 05:57 Dose: 40 mg Gabapentin (Neurontin -) 300 mg PO TID [facility] Last Admin: 01/11/19 05:57 Dose: 300 mg Lidocaine (Lidoderm Patch -) 1 patch TP DAILY [facility] Last Admin: 01/11/19 10:13 Dose: 1 patch Oxycodone HCl (Roxicodone -) 10 mg PO Q6H PRN PRN Reason: PAIN- Last Admin: 01/11/19 12:38 Dose: 10 mg - Objective Vital Signs: Vital Signs Temperature 98.4 F 01/11/19 10:27 Pulse Rate 120 H 01/11/19 12:36 Respiratory Rate 22 H 01/11/19 12:36 Blood Pressure 111/93 01/11/19 12:36 O2 Sat by Pulse Oximetry (%) 96 01/11/19 09:00 Constitutional: Yes: No Distress, Calm Eyes: Yes: Conjunctiva Clear, EOM Intact, PERRL HENT: Yes: Atraumatic, Normocephalic Neck: Yes: Supple, Trachea Midline Cardiovascular: Yes: Tachycardia, Pulse Irregular, S1, S2. No: Regular Rate and Rhythm, Bradycardia, Bruit, JVD, Gallop, Murmur, Rub, S3, S4, Varicosities Respiratory: Yes: Regular, Diminished, Rales. No: On Nasal O2, Rhonchi, SOB, Wheezes Gastrointestinal: Yes: Normal Bowel Sounds, Soft. No: Distention, Tenderness Musculoskeletal: Yes: WNL Extremities: Yes: WNL Edema: Yes Edema: LLE: 1+, RLE: 1+ Peripheral Pulses: Left Doralis Pedis: 2+, Right Dorsalis Pedis: 2+ Neurological: Yes: Alert, Oriented Psychiatric: Yes: Alert, Oriented Labs: CBC, BMP 01/10/19 05:30 01/10/19 05:30 INR, PTT INR 1.50 (0.83-1.09) H 01/08/19 21:17 - ....Imaging Chest X-ray: Report Reviewed, Image Reviewed EKG: Report Reviewed, Image Reviewed Other: Report Reviewed, Image Reviewed (tele-AFib, HR still above goal) Assessment/Plan Paroxysmal Afib with RVR Acute on chronic diastolic CHF Acute on chronic diastolic CHF -still volume overloaded -cont IV Lasix BID -1L fluid restriction -Monitor strict I/Os, daily weights -monitor bun/creat, electrolytes and replete as needed -echo 12/24/18 showed normal LV/RV systolic function, mod LVH, mild MR/TR, mild to mod AR Pafib with RVR-HR improving but still above goal -on Atenolol 100mg po bid -increased Cardizem CD to 360mg daily with additional 120mg x 1 now -on Eliquis 5mg bid -cont to monitor tele
[2019-01-11] MEDS: CLINDAMYCIN HCL 150 MG CAPSULE (FP) PO SCH ×2 (15:52→21:19)
[2019-01-12] MEDS: ACETAMINOPHEN 325 MG TABLET (FP) PO PRN ×3 (02:58→16:06)
[2019-01-12] MEDS: oxyCODONE HCL 5 MG TABLET PO PRN ×4 (02:58→21:15)
[2019-01-12] MEDS: FUROSEMIDE 40 MG/4 ML INJECTABLE VIAL IVPUSH SCH ×2 (05:17→14:04)
[2019-01-12] MEDS: CLINDAMYCIN HCL 150 MG CAPSULE (FP) PO SCH ×3 (05:17→21:00)
[2019-01-12] MEDS: GABAPENTIN 300 MG CAPSULE (FP) PO SCH ×3 (05:17→21:01)
--- NOTE | 2019-01-12 08:19 | PN ---
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, Physician - Current Medication List Current Medications: Active Medications Acetaminophen (Tylenol -) 325 mg PO Q6H PRN PRN Reason: PAIN Last Admin: 01/12/19 02:58 Dose: 325 mg Albuterol Sulfate (Ventolin 0.083% Nebulizer Soln -) 1 amp NEB Q4H PRN PRN Reason: SHORT OF BREATH/WHEEZING Apixaban (Eliquis -) 5 mg PO BID [facility] Last Admin: 01/11/19 21:18 Dose: 5 mg Atenolol (Tenormin -) 100 mg PO BID [facility] Last Admin: 01/11/19 21:19 Dose: 100 mg Budesonide/Formoterol Fumarate (Symbicort 80/4.5mcg -) 2 puff IH BID [facility] Last Admin: 01/11/19 21:19 Dose: 2 puff Bupropion HCl (Wellbutrin Xl -) 150 mg PO DAILY [facility] Last Admin: 01/11/19 10:11 Dose: 150 mg Clindamycin HCl (Cleocin -) 150 mg PO TID [facility] Last Admin: 01/12/19 05:17 Dose: 150 mg Furosemide (Lasix Injection -) 40 mg IVPUSH BID@0600,1400 [facility] Last Admin: 01/12/19 05:17 Dose: 40 mg Gabapentin (Neurontin -) 300 mg PO TID [facility] Last Admin: 01/12/19 05:17 Dose: 300 mg Lidocaine (Lidoderm Patch -) 1 patch TP DAILY [facility] Last Admin: 01/11/19 10:13 Dose: 1 patch Oxycodone HCl (Roxicodone -) 10 mg PO Q6H PRN PRN Reason: PAIN- Last Admin: 01/12/19 02:58 Dose: 10 mg - Objective Vital Signs: Vital Signs Temperature 98.6 F 01/12/19 06:00 Pulse Rate 104 H 01/12/19 06:00 Respiratory Rate 15 01/12/19 06:00 Blood Pressure 120/76 01/12/19 06:00 O2 Sat by Pulse Oximetry (%) 96 01/11/19 19:37 Cardiovascular: Yes: Pulse Irregular, S1, S2 Respiratory: Yes: Regular, CTA Bilaterally Edema: Yes Edema: LLE: 1+, RLE: 1+ Labs: CBC, BMP 01/10/19 05:30 01/10/19 05:30 INR, PTT INR 1.50 (0.83-1.09) H 01/08/19 21:17 Problem List - Problems (1) Atrial fibrillation with rapid ventricular response Assessment/Plan: -On ELiquis - uncontrolled rate - -tele- -increase atenolol 100 bid -Diltiaem 360 -cardiology eval noted Code(s): I48.91 - UNSPECIFIED ATRIAL FIBRILLATION (2) CHF (congestive heart failure) Assessment/Plan: -i/o -daily weights -lasix 40mg IV bid Code(s): I50.9 - HEART FAILURE, UNSPECIFIED Qualifiers: Heart failure type: diastolic Heart failure chronicity: unspecified Qualified Code(s): I50.30 - Unspecified diastolic (congestive) heart failure (3) Leg swelling Assessment/Plan: lower ext duplex- negative for dvt Code(s): M79.89 - OTHER SPECIFIED SOFT TISSUE DISORDERS (4) Hypertension Code(s): I10 - ESSENTIAL (PRIMARY) HYPERTENSION (5) COPD (chronic obstructive pulmonary disease) Assessment/Plan: stable Code(s): J44.9 - CHRONIC OBSTRUCTIVE PULMONARY DISEASE, UNSPECIFIED Qualifiers: (6) Diabetes Code(s): E11.9 - TYPE 2 DIABETES MELLITUS WITHOUT COMPLICATIONS Qualifiers: Diabetes mellitus type: type 2
[2019-01-12] MEDS ORDERED: PT OWN MED DRAWER 7, Y5N ONE (09:07)
--- NOTE | 2019-01-12 09:29 | PN ---
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, Physician Chief Complaint: no sob tele afib 100-110 bpm History of Present Illness: 58F with ho Afib, HfPEF, CKD as recently discharged after managmeent of her heart failure and rate contrl of her Afib on Atenolol 100mg bid and diltiazem 240mg qd. She reports being compliant with her medications. Noted return of the swelling but no dyspnea. echo done results pending. - Current Medication List Current Medications: Active Medications Acetaminophen (Tylenol -) 325 mg PO Q6H PRN PRN Reason: PAIN Last Admin: 01/12/19 02:58 Dose: 325 mg Albuterol Sulfate (Ventolin 0.083% Nebulizer Soln -) 1 amp NEB Q4H PRN PRN Reason: SHORT OF BREATH/WHEEZING Apixaban (Eliquis -) 5 mg PO BID [facility] Last Admin: 01/11/19 21:18 Dose: 5 mg Atenolol (Tenormin -) 100 mg PO BID [facility] Last Admin: 01/11/19 21:19 Dose: 100 mg Budesonide/Formoterol Fumarate (Symbicort 80/4.5mcg -) 2 puff IH BID [facility] Last Admin: 01/11/19 21:19 Dose: 2 puff Bupropion HCl (Wellbutrin Xl -) 150 mg PO DAILY [facility] Last Admin: 01/11/19 10:11 Dose: 150 mg Clindamycin HCl (Cleocin -) 150 mg PO TID [facility] Last Admin: 01/12/19 05:17 Dose: 150 mg Diltiazem HCl (Cardizem Cd -) 360 mg PO DAILY [facility] Furosemide (Lasix Injection -) 40 mg IVPUSH BID@0600,1400 [facility] Last Admin: 01/12/19 05:17 Dose: 40 mg Gabapentin (Neurontin -) 300 mg PO TID [facility] Last Admin: 01/12/19 05:17 Dose: 300 mg Lidocaine (Lidoderm Patch -) 1 patch TP DAILY [facility] Last Admin: 01/11/19 10:13 Dose: 1 patch Oxycodone HCl (Roxicodone -) 10 mg PO Q6H PRN PRN Reason: PAIN- Last Admin: 01/12/19 02:58 Dose: 10 mg - Objective Vital Signs: Vital Signs Temperature 98.6 F 01/12/19 06:00 Pulse Rate 109 H 01/12/19 08:24 Respiratory Rate 17 01/12/19 08:24 Blood Pressure 122/76 01/12/19 08:24 O2 Sat by Pulse Oximetry (%) 96 01/11/19 19:37 Constitutional: Yes: No Distress, Calm Eyes: Yes: Conjunctiva Clear, EOM Intact HENT: Yes: Atraumatic, Normocephalic Neck: Yes: Trachea Midline Cardiovascular: Yes: Tachycardia, Pulse Irregular, S1, S2 Respiratory: Yes: CTA Bilaterally Gastrointestinal: Yes: Normal Bowel Sounds, Soft Musculoskeletal: Yes: WNL Extremities: Yes: WNL Edema: LLE: Trace, RLE: Trace Peripheral Pulses WNL: Yes Labs: CBC, BMP 01/10/19 05:30 01/10/19 05:30 INR, PTT INR 1.50 (0.83-1.09) H 01/08/19 21:17 Assessment/Plan 58F with ho Afib, HfPEF, CKD as recently discharged after managmeent of her heart failure and rate contrl of her Afib on Atenolol 10mg bid and diltiazem 240mg qd. She reports being compliant with her medications. Noted return of the swelling but no dyspnea. Acute on chronic diastolic CHF -still volume overloaded -cont IV Lasix BID -1L fluid restriction -Monitor strict I/Os, daily weights -monitor bun/creat, electrolytes and replete as needed -echo 12/24/18 showed normal LV/RV systolic function, mod LVH, mild MR/TR, mild to mod AR. -repeat echo done (unclear indication) Pafib with RVR-HR improving but still above goal -on Atenolol 100mg po bid -increased Cardizem CD to 360mg daily -on Eliquis 5mg bid -limit beta agonists -cont to monitor tele
[2019-01-12] MEDS: ATENOLOL 50 MG TABLET (FP) PO SCH ×2 (09:42→21:02)
[2019-01-12] MEDS: APIXABAN 5 MG TABLET PO SCH ×2 (09:43→21:01)
[2019-01-12] MEDS: LIDOCAINE 5% TOPICAL PATCH TP SCH (09:43)
[2019-01-12] MEDS: BUDESONIDE/FORMETEROL FUMARATE 80/4.5 mcg INHALER IH SCH ×2 (09:49→21:02)
--- NOTE | 2019-01-12 10:19 | ECHO ---
Name: SEVERINO CABRAL Exam:Adult Echocardiogram Study Date: 01/12/2019 08:15 AM Age: 58 yrs Reason For Study: CHF Height: 63 in Weight: 160 lb BSA: 1.8 m2 MMode/2D Measurements & Calculations IVSd: 1.8 cm Ao root diam: 2.3 cm LVIDd: 4.4 cm LA dimension: 3.8 cm LVIDs: 3.5 cm LVPWd: 1.2 cm EDV(Teich): 90.0 ml LVOT diam: 2.0 cm ESV(Teich): 51.9 ml LAV (MOD-bp): 77.3 ml Doppler Measurements & Calculations MV E max rai: 125.0 cm/sec Ao V2 max: 160.0 cm/sec MV dec time: 0.15 sec Ao max P.2 mmHg AI P1/2t: 657.4 msec VERONICA(V,D): 2.3 cm2 AI max rai: 470.6 cm/sec LV V1 max P.4 mmHg AI max P.6 mmHg LV V1 max: 116.4 cm/sec AI dec slope: 209.7 cm/sec2 MR max rai: 516.1 cm/sec TR max rai: 228.3 cm/sec MR max P.4 mmHg TR max P.9 mmHg PA V2 max: 115.4 cm/sec Med Peak E' Rai: 6.5 cm/sec PA max P.3 mmHg Med E/e': 19.2 Lat Peak E' Rai: 7.4 cm/sec Lat E/e': 16.9 PI Vmax: 222.6 cm/sec Procedure A complete two-dimensional transthoracic echocardiogram was performed (2D, M-mode, Doppler and color flow Doppler). The patient was in atrial fibrillation with rapid ventricular response during the exam with a heart rate exceeding 100 bpm. Left Ventricle There is mild asymmetric left ventricular hypertrophy. The left ventricle is normal in size. The left ventricular ejection fraction is normal. Ejection Fraction = 55%. The transmitral spectral Doppler fl ow pattern is suggestive of impaired LV relaxation. Right Ventricle The right ventricle is normal in size and function. Atria Normal left and right atrial size and function. Mitral Valve The mitral valve is normal. There is trace mitral regurgitation. Tricuspid Valve There is mild tricuspid regurgitation. Right ventricular systolic pressure is 25 mmhg. Assuming the R A pressure is 5 mmHg. Aortic Valve There is mild aortic valve thickening. Mild to moderate aortic regurgitation. Pulmonic Valve The pulmonic valve is not well visualized. Great Vessels The aortic root is normal size. Pericardium/Pleura There is no pericardial effusion. There is no pleural effusion. Interpretation Summary Compared to the prior echo report on 12/24/18, there is no significant change. The patient was in atri al fibrillation with rapid ventricular response during the exam with a heart rate exceeding 100 bpm. There is mild asymmetric left ventricular hypertrophy. The left ventricle is normal in size. The left ventricular ejection fraction is normal. Ejection Fraction = 55%. There is trace mitral regurgitation. There is mild tricuspid regurgitation. Right ventricular systolic pressure is 25 mmhg. Mild to moderate aortic regurgitation. Compared to the prior echo report on 12/24/18, there is no significant change. MD Lalo Zamudio 01/12/2019 10:19 AM
[2019-01-12 10:28] LABS: BASO % 0.8 % (0-2.0); EOS % 3.4 % (0-4.5); HEMATOCRIT 38.4 % (32.4-45.2); HEMOGLOBIN 12.3 GM/dL (10.7-15.3); LYMPH % 24.9 % (8-40); MCH 29.3 pg (25.7-33.7); MCHC 32.1 g/dl (32.0-36.0); MEAN CELL VOLUME 91.3 fl (80-96); MEAN PLT VOLUME 10.8 fl (7.5-11.1); MONO % 12.3 % (3.8-10.2); NEUT % 58.6 % (42.8-82.8); PLATELET COUNT 115 K/MM3 (134-434); RBC 4.21 M/mm3 (3.60-5.2); RDW 15.9 % (11.6-15.6); WHITE BLOOD COUNT 5.1 K/mm3 (4.0-10.0)
[2019-01-12 11:10] LABS: ALBUMIN 3.5 g/dl (3.4-5.0); ALK PHOS 79 U/L (45-117); ANION GAP 3 MMOL/L (8-16); BILIRUBIN,TOTAL 0.8 mg/dL (0.2-1); BLOOD UREA NITROGEN 24 mg/dL (7-18); CALCIUM 9.2 mg/dL (8.5-10.1); CHLORIDE 99 mmol/L (98-107); CO2 36 mmol/L (21-32); CREATININE 1.5 mg/dL (0.55-1.3); GLUCOSE,RANDOM 165 mg/dL (74-106); POTASSIUM 3.9 mmol/L (3.5-5.1); SGOT/AST 14 U/L (15-37); SGPT/ALT 22 U/L (13-61); SODIUM 137 mmol/L (136-145); TOT PROT 7.1 g/dl (6.4-8.2)
[2019-01-13] MEDS: CLINDAMYCIN HCL 150 MG CAPSULE (FP) PO SCH ×3 (06:20→21:02)
[2019-01-13] MEDS: FUROSEMIDE 40 MG/4 ML INJECTABLE VIAL IVPUSH SCH ×2 (06:20→14:09)
[2019-01-13] MEDS: GABAPENTIN 300 MG CAPSULE (FP) PO SCH ×3 (06:21→21:03)
--- NOTE | 2019-01-13 07:29 | PN ---
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, Physician History of Present Illness: 58 y/o woman complained of B/L shoulder pain after moving a water heater on Friday. Pain started in her L shoulder then radiated to her R shoulder. While en route to ER with EMS she was noted to be in Afib with RVR with HR at 160 bpm - responded to diltiazem. - Current Medication List Current Medications: Active Medications Acetaminophen (Tylenol -) 325 mg PO Q6H PRN PRN Reason: PAIN Last Admin: 01/12/19 16:06 Dose: 325 mg Albuterol Sulfate (Ventolin 0.083% Nebulizer Soln -) 1 amp NEB Q4H PRN PRN Reason: SHORT OF BREATH/WHEEZING Apixaban (Eliquis -) 5 mg PO BID [facility] Last Admin: 01/12/19 21:01 Dose: 5 mg Atenolol (Tenormin -) 100 mg PO BID [facility] Last Admin: 01/12/19 21:02 Dose: 100 mg Budesonide/Formoterol Fumarate (Symbicort 80/4.5mcg -) 2 puff IH BID [facility] Last Admin: 01/12/19 21:02 Dose: 2 puff Bupropion HCl (Wellbutrin Xl -) 150 mg PO DAILY [facility] Last Admin: 01/12/19 09:43 Dose: 150 mg Clindamycin HCl (Cleocin -) 150 mg PO TID [facility] Last Admin: 01/13/19 06:20 Dose: 150 mg Diltiazem HCl (Cardizem Cd -) 360 mg PO DAILY [facility] Last Admin: 01/12/19 09:40 Dose: 360 mg Furosemide (Lasix Injection -) 40 mg IVPUSH BID@0600,1400 [facility] Last Admin: 01/13/19 06:20 Dose: 40 mg Gabapentin (Neurontin -) 300 mg PO TID [facility] Last Admin: 01/13/19 06:21 Dose: 300 mg Lidocaine (Lidoderm Patch -) 1 patch TP DAILY [facility] Last Admin: 01/12/19 09:43 Dose: 1 patch Oxycodone HCl (Roxicodone -) 10 mg PO Q6H PRN PRN Reason: PAIN- Last Admin: 01/12/19 21:15 Dose: 10 mg - Objective Vital Signs: Vital Signs Temperature 98.4 F 01/13/19 06:00 Pulse Rate 99 H 01/13/19 06:00 Respiratory Rate 18 01/13/19 06:00 Blood Pressure 148/55 L 01/13/19 06:00 O2 Sat by Pulse Oximetry (%) 96 01/12/19 19:42 Cardiovascular: Yes: Tachycardia, Pulse Irregular, S1, S2 Respiratory: Yes: Regular, CTA Bilaterally Gastrointestinal: Yes: Normal Bowel Sounds, Soft Labs: CBC, BMP 01/12/19 09:53 01/12/19 09:53 INR, PTT INR 1.50 (0.83-1.09) H 01/08/19 21:17 Problem List - Problems (1) Atrial fibrillation with rapid ventricular response Assessment/Plan: -On ELiquis - uncontrolled rate - -tele- -increase atenolol 100 bid -Diltiaem 360 -cardiology eval noted Code(s): I48.91 - UNSPECIFIED ATRIAL FIBRILLATION (2) CHF (congestive heart failure) Assessment/Plan: -i/o -daily weights -lasix 40mg IV bid--to po Code(s): I50.9 - HEART FAILURE, UNSPECIFIED Qualifiers: Heart failure type: diastolic Heart failure chronicity: unspecified Qualified Code(s): I50.30 - Unspecified diastolic (congestive) heart failure (3) Leg swelling Assessment/Plan: lower ext duplex- negative for dvt Code(s): M79.89 - OTHER SPECIFIED SOFT TISSUE DISORDERS (4) Hypertension Assessment/Plan: uncotrolled this am will monitor onm eds--to be given now Code(s): I10 - ESSENTIAL (PRIMARY) HYPERTENSION (5) COPD (chronic obstructive pulmonary disease) Assessment/Plan: stable Code(s): J44.9 - CHRONIC OBSTRUCTIVE PULMONARY DISEASE, UNSPECIFIED Qualifiers: (6) Diabetes Assessment/Plan: controlled Code(s): E11.9 - TYPE 2 DIABETES MELLITUS WITHOUT COMPLICATIONS Qualifiers: Diabetes mellitus type: type 2 (7) Tooth pain Assessment/Plan: abx pain control Code(s): K08.89 - OTHER SPECIFIED DISORDERS OF TEETH AND SUPPORTING STRUCTURES
[2019-01-13 08:23] LABS: BASO % 0.7 % (0-2.0); EOS % 4.4 % (0-4.5); HEMATOCRIT 41.1 % (32.4-45.2); MCHC 31.6 g/dl (32.0-36.0); MEAN CELL VOLUME 91.9 fl (80-96); MEAN PLT VOLUME 11.2 fl (7.5-11.1); MONO % 14.4 % (3.8-10.2); NEUT % 45.5 % (42.8-82.8); PLATELET COUNT 113 K/MM3 (134-434); RBC 4.47 M/mm3 (3.60-5.2); RDW 16.2 % (11.6-15.6); WHITE BLOOD COUNT 4.6 K/mm3 (4.0-10.0)
[2019-01-13 08:49] LABS: CALCIUM 9.6 mg/dL (8.5-10.1); POTASSIUM 4.5 mmol/L (3.5-5.1)
[2019-01-13] MEDS: ACETAMINOPHEN 325 MG TABLET (FP) PO PRN ×2 (09:10→14:11)
[2019-01-13] MEDS: oxyCODONE HCL 5 MG TABLET PO PRN ×3 (09:10→21:03)
[2019-01-13] MEDS: APIXABAN 5 MG TABLET PO SCH ×2 (09:11→21:03)
[2019-01-13] MEDS: LIDOCAINE 5% TOPICAL PATCH TP SCH (09:11)
[2019-01-13] MEDS: BUDESONIDE/FORMETEROL FUMARATE 80/4.5 mcg INHALER IH SCH ×2 (09:15→21:03)
[2019-01-13 10:16] LABS: CREATININE 1.7 mg/dL (0.55-1.3)
[2019-01-13] MEDS: ATENOLOL 50 MG TABLET (FP) PO SCH ×2 (10:51→21:03)
[2019-01-13 12:41] VITALS: BMI 30.6
--- NOTE | 2019-01-13 14:15 | PN ---
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, Physician History of Present Illness: seen and examined today in nad. RVR this am during time of anxiety and agitation. the rest of day HR has been 60s-70s. BP now 120/70. - Current Medication List Current Medications: Active Medications Acetaminophen (Tylenol -) 325 mg PO Q6H PRN PRN Reason: PAIN Last Admin: 01/13/19 09:10 Dose: 325 mg Albuterol Sulfate (Ventolin 0.083% Nebulizer Soln -) 1 amp NEB Q4H PRN PRN Reason: SHORT OF BREATH/WHEEZING Apixaban (Eliquis -) 5 mg PO BID [facility] Last Admin: 01/13/19 09:11 Dose: 5 mg Atenolol (Tenormin -) 100 mg PO BID [facility] Last Admin: 01/13/19 10:51 Dose: 100 mg Budesonide/Formoterol Fumarate (Symbicort 80/4.5mcg -) 2 puff IH BID [facility] Last Admin: 01/13/19 09:15 Dose: 2 puff Bupropion HCl (Wellbutrin Xl -) 150 mg PO DAILY [facility] Last Admin: 01/13/19 09:11 Dose: 150 mg Clindamycin HCl (Cleocin -) 150 mg PO TID [facility] Last Admin: 01/13/19 06:20 Dose: 150 mg Diltiazem HCl (Cardizem Cd -) 360 mg PO DAILY [facility] Last Admin: 01/13/19 09:10 Dose: 360 mg Furosemide (Lasix Injection -) 40 mg IVPUSH BID@0600,1400 [facility] Last Admin: 01/13/19 06:20 Dose: 40 mg Gabapentin (Neurontin -) 300 mg PO TID [facility] Last Admin: 01/13/19 06:21 Dose: 300 mg Lidocaine (Lidoderm Patch -) 1 patch TP DAILY [facility] Last Admin: 01/13/19 09:11 Dose: 1 patch Oxycodone HCl (Roxicodone -) 10 mg PO Q6H PRN PRN Reason: PAIN- Last Admin: 01/13/19 09:10 Dose: 10 mg - Objective Vital Signs: Vital Signs Temperature 98.4 F 01/13/19 06:00 Pulse Rate 103 H 01/13/19 08:00 Respiratory Rate 22 H 01/13/19 08:00 Blood Pressure 153/96 01/13/19 08:00 O2 Sat by Pulse Oximetry (%) 96 01/12/19 19:42 Constitutional: Yes: No Distress, Calm Eyes: Yes: Conjunctiva Clear, EOM Intact HENT: Yes: Atraumatic, Normocephalic Neck: Yes: Supple, Trachea Midline Cardiovascular: Yes: Pulse Irregular, S1, S2. No: Regular Rate and Rhythm, Bradycardia, Tachycardia, Bruit, JVD, Gallop, Murmur, Rub, S3, S4, Varicosities Respiratory: Yes: Regular. No: Rales, Rhonchi, SOB, Wheezes Gastrointestinal: Yes: Normal Bowel Sounds, Soft Extremities: Yes: WNL Edema: Yes Edema: LLE: Trace, RLE: Trace Peripheral Pulses WNL: Yes Peripheral Pulses: Left Doralis Pedis: 2+, Right Dorsalis Pedis: 2+ Neurological: Yes: Alert, Oriented Psychiatric: Yes: Alert, Oriented Labs: CBC, BMP 01/13/19 08:03 01/13/19 08:03 INR, PTT INR 1.50 (0.83-1.09) H 01/08/19 21:17 - ....Imaging Chest X-ray: Report Reviewed, Image Reviewed EKG: Report Reviewed, Image Reviewed Other: Report Reviewed, Image Reviewed (tele) Assessment/Plan 58F with ho Afib, HfPEF, CKD as recently discharged after managmeent of her heart failure and rate contrl of her Afib on Atenolol 10mg bid and diltiazem 240mg qd. She reports being compliant with her medications. Noted return of the swelling but no dyspnea. Acute on chronic diastolic CHF -volume status improved -bun/creat trending up suggesting developing intravascular depletion -change to po lasix can use 40mg po bid -1L fluid restriction -Monitor strict I/Os, daily weights -monitor bun/creat, electrolytes and replete as needed -echo 12/24/18 showed normal LV/RV systolic function, mod LVH, mild MR/TR, mild to mod AR. -repeat echo done (unclear indication) Pafib with RVR-HR well controlled since this am. RVR this am in setting of agitation, well controlled the rest of the day -cont Atenolol 100mg po bid -cont Cardizem CD to 360mg daily -on Eliquis 5mg bid -limit beta agonists -cont to monitor tele for 24hours, if remains adequately controlled can dc tomorrow.
--- NOTE | 2019-01-13 15:31 | CONSULT ---
Consultation: REQUESTING PROVIDER: CONSULT REQUEST: We have been asked to medically evaluate this patient for chronic ttp . HISTORY OF PRESENT ILLNESS: This is a 58 yo F with PMH of intermittent ttp since 2012, HTN, COPD, PAF (on eliquis), HFPEF, who presented with b/l lower extremity swelling and was admitted for CHF exacerbation, found to have plat level 113. She had no knowledge of ttp. Patient denies easy bleeding or bruising, denies melena, hematochezia, hematuria, hemoptysis hemotemesis but does report bleeding gums. Currently complaining of tooth pain. patient had poor dentition. denies recet f/ c, abd pain, sore throat, rhinorrhea, cough, dysuria. denies new medications REVIEW OF SYSTEMS: CONSTITUTIONAL: Absent: fever, chills HEENT: Absent: rhinorrhea, nasal congestion, throat pain CARDIOVASCULAR: Absent: chest pain RESPIRATORY: Absent: cough, shortness of breath, hemoptysis GASTROINTESTINAL: Absent: abdominal pain, nausea, vomiting, melena, hematochezia GENITOURINARY: Absent: dysuria, hematuria MUSCULOSKELETAL: Absent: myalgia, arthralgia SKIN: Absent: rash, itching, pallor HEMATOLOGIC/IMMUNOLOGIC: Absent: easy bleeding, easy bruising ENDOCRINE: Absent: unexplained weight gain, unexplained weight loss NEUROLOGIC: Absent: headache, focal weakness or paresthesias PSYCHIATRIC: Absent: anxiety, depression PHYSICAL EXAMINATION Vital Signs - 24 hr 01/12/19 01/12/19 01/12/19 19:42 22:00 23:49 Temperature 98.2 F Pulse Rate 90 100 H 102 H Respiratory 16 16 18 Rate Blood Pressure 135/70 148/90 144/70 O2 Sat by Pulse 96 Oximetry (%) 01/13/19 01/13/19 01/13/19 02:29 04:00 06:00 Temperature 98.2 F 98.4 F Pulse Rate 82 94 H 99 H Respiratory 18 18 18 Rate Blood Pressure 163/86 149/98 148/55 L O2 Sat by Pulse Oximetry (%) 01/13/19 01/13/19 08:00 10:00 Temperature 98.1 F Pulse Rate 103 H 68 Respiratory 22 H 19 Rate Blood Pressure 153/96 122/71 O2 Sat by Pulse Oximetry (%) GENERAL: Awake, alert, and fully oriented, in no acute distress. HEAD: Normal with no signs of trauma. EYES: Pupils equal, round and reactive to light, extraocular movements intact, sclera anicteric, conjunctiva clear. No lid lag. EARS, NOSE, THROAT: Moist mucous membranes. many missing teeth, rotten eeth, no bleeding lesions NECK: supple LUNGS: Breath sounds equal, clear to auscultation bilaterally HEART: Regular rate and rhythm, normal S1 and S2 ABDOMEN: Soft, nontender, not distended, normoactive bowel sounds, MUSCULOSKELETAL: No CVA tenderness. UPPER EXTREMITIES: 2+ pulses, warm, well-perfused. LOWER EXTREMITIES: trace peripheral edema. NEUROLOGICAL: Cranial nerves II-XII grossly intact. Normal speech. Normal gait. PSYCHIATRIC: Cooperative. Good eye contact. Appropriate mood and affect. SKIN: Warm, dry Laboratory Results - last 24 hr 01/13/19 01/13/19 01/13/19 08:03 08:03 12:24 WBC 4.6 RBC 4.47 Hgb 13.0 Hct 41.1 MCV 91.9 MCH 29.0 MCHC 31.6 L RDW 16.2 H Plt Count 113 L MPV 11.2 H Absolute Neuts (auto) 2.1 Neutrophils % 45.5 D Lymphocytes % 35.0 D Monocytes % 14.4 H Eosinophils % 4.4 Basophils % 0.7 Nucleated RBC % 0 Sodium 141 Potassium 4.5 Chloride 101 Carbon Dioxide 38 H Anion Gap 3 L BUN 29 H Creatinine 1.7 H Est GFR (CKD-EPI)AfAm 37.34 Est GFR (CKD-EPI)NonAf 32.21 POC Glucometer 140 Random Glucose 122 H Calcium 9.6 Active Medications Generic Name Dose Route Start Last Admin Trade Name Freq PRN Reason Stop Dose Admin Acetaminophen 325 mg 01/09/19 12:54 01/13/19 14:11 Tylenol - PO 325 mg Q6H PRN Administration PAIN Albuterol Sulfate 1 amp 01/09/19 04:39 Ventolin 0.083% Nebulizer Soln - NEB Q4H PRN SHORT OF BREATH/WHEEZING Apixaban 5 mg 01/09/19 10:00 01/13/19 09:11 Eliquis - PO 5 mg BID JOLENE Administration Atenolol 100 mg 01/10/19 14:31 01/13/19 10:51 Tenormin - PO 100 mg BID [facility]ENE Administration Budesonide/Formoterol Fumarate 2 puff 01/09/19 10:00 01/13/19 09:15 Symbicort 80/4.5mcg - IH 2 puff BID JOLENE Administration Bupropion HCl 150 mg 01/09/19 10:00 01/13/19 09:11 Wellbutrin Xl - PO 150 mg DAILY [facility] Administration Clindamycin HCl 150 mg 01/11/19 14:00 01/13/19 14:11 Cleocin - PO 150 mg TID [facility] Administration Diltiazem HCl 360 mg 01/12/19 10:00 01/13/19 09:10 Cardizem Cd - PO 360 mg DAILY [facility] Administration Furosemide 40 mg 01/09/19 06:00 01/13/19 14:09 Lasix Injection - IVPUSH 40 mg BID@0600,1400 [facility] Administration Gabapentin 300 mg 01/09/19 06:00 01/13/19 14:11 Neurontin - PO 300 mg TID [facility] Administration Lidocaine 1 patch 01/10/19 10:00 01/13/19 09:11 Lidoderm Patch - TP 1 patch DAILY [facility] Administration Oxycodone HCl 10 mg 01/09/19 12:54 01/13/19 14:10 Roxicodone - PO 10 mg Q6H PRN Administration PAIN- ASSESSMENT/PLAN: This is a 58 yo F with PMH of intermittent ttp since 2012, HTN, COPD, PAF (on eliquis), HFPEF, who presented with b/l lower extremity swelling and was admitted for CHF exacerbation, found to have plat level 113. thrombocytopenia, transient, recurrent acute on chronic HFPER due to AF RVR CKD HTN COPD PAF dental pain -ttp likely recurs in setting of chf decompensation with splenic sequestration -r/o less likely causes f/u folate, b12, copper Dispo: We will continue to follow the patient. Thank you for this consultative opportunity. Problem List - Problems (1) Thrombocytopenia Code(s): D69.6 - THROMBOCYTOPENIA, UNSPECIFIED (2) CHF (congestive heart failure) Code(s): I50.9 - HEART FAILURE, UNSPECIFIED Qualifiers: Heart failure type: diastolic Heart failure chronicity: unspecified Qualified Code(s): I50.30 - Unspecified diastolic (congestive) heart failure (3) Acute on chronic diastolic (congestive) heart failure Code(s): I50.33 - ACUTE ON CHRONIC DIASTOLIC (CONGESTIVE) HEART FAILURE Visit type - Emergency Visit Emergency Visit: Yes ED Registration Date: 01/09/19 Care time: The patient presented to the Emergency Department on the above date and was hospitalized for further evaluation of their emergent condition. - New Patient This patient is new to me today: Yes Date on this admission: 01/13/19 - Critical Care Critical Care patient: Yes Total Critical Care Time (in minutes): 45 Critical Care Statement: The care of this patient involved high complexity decision making to prevent further life threatening deterioration of the patient 's condition and/or to evaluate & treat vital organ system(s) failure or risk of failure.
[2019-01-14] MEDS: FUROSEMIDE 40 MG/4 ML INJECTABLE VIAL IVPUSH SCH ×2 (05:37→13:58)
[2019-01-14] MEDS: CLINDAMYCIN HCL 150 MG CAPSULE (FP) PO SCH ×3 (05:37→21:37)
[2019-01-14] MEDS: GABAPENTIN 300 MG CAPSULE (FP) PO SCH ×3 (05:37→21:37)
[2019-01-14] MEDS: oxyCODONE HCL 5 MG TABLET PO PRN ×3 (06:06→17:55)
--- NOTE | 2019-01-14 07:55 | PN ---
Teaching Attending Note Name of Resident: Barbara Siegel ATTENDING PHYSICIAN STATEMENT I saw and evaluated the patient. I reviewed the resident's note and discussed the case with the resident. I agree with the resident's findings and plan as documented. SUBJECTIVE: Patient seen and examined Presented with exacerbation of CHF Noted to be thrombocytopenic Review of previous hospitilizations reveals that patient has had normal and mild decreased platelet counts over several years. No consistent patern however. 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 Former drug abuser, ( no IV's) but snorted cocaine and states has been drug free x 3-4 years. 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 Family history - negative for blood dyscrasia; Negativea for hemoglobinopathy Meds Current Medications Generic Name Dose Route Start Last Admin Trade Name Freq PRN Reason Stop Dose Admin Acetaminophen 325 mg 01/09/19 12:54 01/13/19 14:11 Tylenol - PO 325 mg Q6H PRN Administration PAIN Apixaban 5 mg 01/09/19 10:00 01/13/19 21:03 Eliquis - PO 5 mg BID [facility] Administration Atenolol 100 mg 01/10/19 14:31 01/13/19 21:03 Tenormin - PO 100 mg BID [facility] Administration Budesonide/Formoterol Fumarate 2 puff 01/09/19 10:00 01/13/19 21:03 Symbicort 80/4.5mcg - IH 2 puff BID [facility]ENE Administration Bupropion HCl 150 mg 01/09/19 10:00 01/13/19 09:11 Wellbutrin Xl - PO 150 mg DAILY [facility] Administration Clindamycin HCl 150 mg 01/11/19 14:00 01/14/19 05:37 Cleocin - PO 150 mg TID [facility] Administration Diltiazem HCl 360 mg 01/12/19 10:00 01/13/19 09:10 Cardizem Cd - PO 360 mg DAILY [facility] Administration Furosemide 40 mg 01/09/19 06:00 01/14/19 05:37 Lasix Injection - IVPUSH 40 mg BID@0600,1400 [facility] Administration Gabapentin 300 mg 01/09/19 06:00 01/14/19 05:37 Neurontin - PO 300 mg TID [facility] Administration Lidocaine 1 patch 01/10/19 10:00 01/13/19 09:11 Lidoderm Patch - TP 1 patch DAILY [facility] Administration Oxycodone HCl 10 mg 01/09/19 12:54 01/14/19 06:06 Roxicodone - PO 10 mg Q6H PRN Administration PAIN- Last Vital Signs Temp Pulse Resp BP Pulse Ox 97.2 F L 98 H 18 144/95 96 01/14/19 02:00 01/14/19 04:00 01/14/19 04:00 01/14/19 04:00 01/13/19 20:04 HEENT: ENRIQUE, EOM Intact Oropharynx: No thrush, No mucositis, poor dentition Neck: Supple Nodes: Without adenopathy Breasts: Without masses Cor: RSR, No murmurs, No gallops Lungs: Clear to P&A Abd: Soft, Normal bowel sounds, No organomegaly Ext:No significant edema Skin: No rashes, Integument intact CBC, BMP 01/13/19 08:03 01/13/19 08:03 Impression: Thrombocytopenia which may be on the basis of CHF and passive congestion with secondary splenic sequestration Suggest sono of liver and spleen Routine screening -B-12, folate, TFT's,SOCORRO,Hb electrophoresis Follow as CHF is treated . Further work up pending above. OBJECTIVE: ASSESSMENT AND PLAN:
--- NOTE | 2019-01-14 08:03 | PN ---
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, Physician - Current Medication List Current Medications: Active Medications Acetaminophen (Tylenol -) 325 mg PO Q6H PRN PRN Reason: PAIN Last Admin: 01/13/19 14:11 Dose: 325 mg Apixaban (Eliquis -) 5 mg PO BID [facility] Last Admin: 01/13/19 21:03 Dose: 5 mg Atenolol (Tenormin -) 100 mg PO BID [facility] Last Admin: 01/13/19 21:03 Dose: 100 mg Budesonide/Formoterol Fumarate (Symbicort 80/4.5mcg -) 2 puff IH BID [facility] Last Admin: 01/13/19 21:03 Dose: 2 puff Bupropion HCl (Wellbutrin Xl -) 150 mg PO DAILY [facility] Last Admin: 01/13/19 09:11 Dose: 150 mg Clindamycin HCl (Cleocin -) 150 mg PO TID [facility] Last Admin: 01/14/19 05:37 Dose: 150 mg Diltiazem HCl (Cardizem Cd -) 360 mg PO DAILY [facility] Last Admin: 01/13/19 09:10 Dose: 360 mg Furosemide (Lasix Injection -) 40 mg IVPUSH BID@0600,1400 [facility] Last Admin: 01/14/19 05:37 Dose: 40 mg Gabapentin (Neurontin -) 300 mg PO TID [facility] Last Admin: 01/14/19 05:37 Dose: 300 mg Lidocaine (Lidoderm Patch -) 1 patch TP DAILY [facility] Last Admin: 01/13/19 09:11 Dose: 1 patch Oxycodone HCl (Roxicodone -) 10 mg PO Q6H PRN PRN Reason: PAIN- Last Admin: 01/14/19 06:06 Dose: 10 mg - Objective Vital Signs: Vital Signs Temperature 97.2 F L 01/14/19 02:00 Pulse Rate 98 H 01/14/19 04:00 Respiratory Rate 18 01/14/19 04:00 Blood Pressure 144/95 01/14/19 04:00 O2 Sat by Pulse Oximetry (%) 96 01/13/19 20:04 Cardiovascular: Yes: Pulse Irregular, S1, S2 Respiratory: Yes: Regular, CTA Bilaterally Gastrointestinal: Yes: Normal Bowel Sounds, Soft Labs: CBC, BMP 01/13/19 08:03 01/13/19 08:03 INR, PTT INR 1.50 (0.83-1.09) H 01/08/19 21:17 Problem List - Problems (1) Atrial fibrillation with rapid ventricular response Assessment/Plan: -On ELiquis - uncontrolled rate - -tele- -increase atenolol 100 bid -Diltiazem to 480 -cardiology eval noted Code(s): I48.91 - UNSPECIFIED ATRIAL FIBRILLATION (2) CHF (congestive heart failure) Assessment/Plan: -i/o -daily weights -lasix 40mg IV bid--to po Code(s): I50.9 - HEART FAILURE, UNSPECIFIED Qualifiers: Heart failure type: diastolic Heart failure chronicity: unspecified Qualified Code(s): I50.30 - Unspecified diastolic (congestive) heart failure (3) Leg swelling Assessment/Plan: lower ext duplex- negative for dvt Code(s): M79.89 - OTHER SPECIFIED SOFT TISSUE DISORDERS (4) Hypertension Assessment/Plan: uncotrolled this am will monitor onm eds--to be given now Code(s): I10 - ESSENTIAL (PRIMARY) HYPERTENSION (5) COPD (chronic obstructive pulmonary disease) Assessment/Plan: stable Code(s): J44.9 - CHRONIC OBSTRUCTIVE PULMONARY DISEASE, UNSPECIFIED Qualifiers: (6) Diabetes Assessment/Plan: controlled Code(s): E11.9 - TYPE 2 DIABETES MELLITUS WITHOUT COMPLICATIONS Qualifiers: Diabetes mellitus type: type 2 (7) Tooth pain Assessment/Plan: abx pain control Code(s): K08.89 - OTHER SPECIFIED DISORDERS OF TEETH AND SUPPORTING STRUCTURES (8) Thrombocytopenia Assessment/Plan: maybe due congestion d/w dr monique Code(s): D69.6 - THROMBOCYTOPENIA, UNSPECIFIED
[2019-01-14 09:10] LABS: BASO % 0.8 % (0-2.0); EOS % 5.1 % (0-4.5); HEMATOCRIT 38.7 % (32.4-45.2); HEMOGLOBIN 12.4 GM/dL (10.7-15.3); LYMPH % 39.8 % (8-40); MCH 29.3 pg (25.7-33.7); MCHC 31.9 g/dl (32.0-36.0); MEAN CELL VOLUME 91.7 fl (80-96); MEAN PLT VOLUME 12.1 fl (7.5-11.1); MONO % 13.5 % (3.8-10.2); NEUT % 40.8 % (42.8-82.8); PLATELET COUNT 91 K/MM3 (134-434); RBC 4.22 M/mm3 (3.60-5.2); WHITE BLOOD COUNT 4.3 K/mm3 (4.0-10.0)
[2019-01-14 09:19] LABS: ALBUMIN 3.5 g/dl (3.4-5.0); BILIRUBIN,TOTAL 0.5 mg/dL (0.2-1); CALCIUM 9.1 mg/dL (8.5-10.1); CREATININE 1.6 mg/dL (0.55-1.3); POTASSIUM 3.5 mmol/L (3.5-5.1); TOT PROT 6.9 g/dl (6.4-8.2)
[2019-01-14] MEDS ORDERED: PT OWN MED DRAWER 7, Y5N ONE ×2 (09:30→21:26)
[2019-01-14] MEDS: ATENOLOL 50 MG TABLET (FP) PO SCH ×2 (09:35→21:37)
[2019-01-14] MEDS: APIXABAN 5 MG TABLET PO SCH ×2 (09:35→21:37)
[2019-01-14] MEDS: LIDOCAINE 5% TOPICAL PATCH TP SCH (09:36)
[2019-01-14] MEDS: BUDESONIDE/FORMETEROL FUMARATE 80/4.5 mcg INHALER IH SCH ×2 (09:36→21:38)
--- NOTE | 2019-01-14 14:07 | PN ---
Physical Exam: SUBJECTIVE: Patient seen and examined resting in bed nad, no acute events, afebrile and hemodynamically stable. feels well, denies sob, cough. good appetite. denies bleeding. OBJECTIVE: Vital Signs Period Temp Pulse Resp BP Sys/Salgado Pulse Ox Last 24 Hr 97.2 F-97.9 F 60-117 16-21 121-160/58-101 96-96 GENERAL: Awake, alert, and fully oriented, in no acute distress. HEAD: Normal with no signs of trauma. EYES: Pupils equal, round and reactive to light, extraocular movements intact, sclera anicteric, conjunctiva clear. No lid lag. EARS, NOSE, THROAT: Moist mucous membranes. many missing teeth, rotten eeth, no bleeding lesions NECK: supple LUNGS: Breath sounds equal, clear to auscultation bilaterally HEART: Regular rate and rhythm, normal S1 and S2 ABDOMEN: Soft, nontender, not distended, normoactive bowel sounds, MUSCULOSKELETAL: No CVA tenderness. UPPER EXTREMITIES: 2+ pulses, warm, well-perfused. LOWER EXTREMITIES: trace peripheral edema. NEUROLOGICAL: Cranial nerves II-XII grossly intact. Normal speech. Normal gait. PSYCHIATRIC: Cooperative. Good eye contact. Appropriate mood and affect. SKIN: Warm, dry Laboratory Results - last 24 hr 01/14/19 01/14/19 05:30 05:30 WBC 4.3 RBC 4.22 Hgb 12.4 Hct 38.7 MCV 91.7 MCH 29.3 MCHC 31.9 L RDW 16.0 H Plt Count 91 L MPV 12.1 H Absolute Neuts (auto) 1.7 Neutrophils % 40.8 L Lymphocytes % 39.8 Monocytes % 13.5 H Eosinophils % 5.1 H Basophils % 0.8 Nucleated RBC % 0 Sodium 142 Potassium 3.5 Chloride 102 Carbon Dioxide 34 H Anion Gap 6 L BUN 28 H Creatinine 1.6 H Est GFR (CKD-EPI)AfAm 40.17 Est GFR (CKD-EPI)NonAf 34.66 Random Glucose 117 H Calcium 9.1 Total Bilirubin 0.5 AST 16 ALT 26 Alkaline Phosphatase 82 Total Protein 6.9 Albumin 3.5 Vitamin B12 570 Serum Folate 21 H Active Medications Generic Name Dose Route Start Last Admin Trade Name Freq PRN Reason Stop Dose Admin Acetaminophen 325 mg 01/09/19 12:54 01/13/19 14:11 Tylenol - PO 325 mg Q6H PRN Administration PAIN Apixaban 5 mg 01/09/19 10:00 01/14/19 09:35 Eliquis - PO 5 mg BID JOLENE Administration Atenolol 100 mg 01/10/19 14:31 01/14/19 09:35 Tenormin - PO 100 mg BID JOLENE Administration Budesonide/Formoterol Fumarate 2 puff 01/09/19 10:00 01/14/19 09:36 Symbicort 80/4.5mcg - IH 2 puff BID JOLENE Administration Bupropion HCl 150 mg 01/09/19 10:00 01/14/19 09:35 Wellbutrin Xl - PO 150 mg DAILY JOLENE Administration Clindamycin HCl 150 mg 01/11/19 14:00 01/14/19 13:59 Cleocin - PO 150 mg TID JOLENE Administration Diltiazem HCl 480 mg 01/14/19 11:45 01/14/19 11:55 Cardizem Cd - PO 480 mg DAILY JOLENE Administration Furosemide 40 mg 01/09/19 06:00 01/14/19 13:58 Lasix Injection - IVPUSH 40 mg BID@0600,1400 JOLENE Administration Gabapentin 300 mg 01/09/19 06:00 01/14/19 13:59 Neurontin - PO 300 mg TID JOLENE Administration Lidocaine 1 patch 01/10/19 10:00 01/14/19 09:36 Lidoderm Patch - TP 1 patch DAILY JOLENE Administration Oxycodone HCl 10 mg 01/09/19 12:54 01/14/19 06:06 Roxicodone - PO 10 mg Q6H PRN Administration PAIN- ASSESSMENT/PLAN: This is a 58 yo F with PMH of intermittent ttp since 2012, HTN, COPD, PAF (on eliquis), HFPEF, who presented with b/l lower extremity swelling and was admitted for CHF exacerbation, found to have plat level 113. thrombocytopenia, transient, recurrent acute on chronic HFPER due to AF RVR CKD HTN COPD PAF dental pain -ttp likely recurs in setting of chf decompensation with splenic sequestration -plat count 91 -folate, b12 not deficient Problem List - Problems (1) Thrombocytopenia Code(s): D69.6 - THROMBOCYTOPENIA, UNSPECIFIED (2) CHF (congestive heart failure) Code(s): I50.9 - HEART FAILURE, UNSPECIFIED Qualifiers: Heart failure type: diastolic Heart failure chronicity: unspecified Qualified Code(s): I50.30 - Unspecified diastolic (congestive) heart failure (3) Acute on chronic diastolic (congestive) heart failure Code(s): I50.33 - ACUTE ON CHRONIC DIASTOLIC (CONGESTIVE) HEART FAILURE
--- NOTE | 2019-01-14 16:40 | PN ---
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, Physician History of Present Illness: seen and examined today in nad. - Current Medication List Current Medications: Active Medications Acetaminophen (Tylenol -) 325 mg PO Q6H PRN PRN Reason: PAIN Last Admin: 01/13/19 14:11 Dose: 325 mg Apixaban (Eliquis -) 5 mg PO BID [facility] Last Admin: 01/14/19 09:35 Dose: 5 mg Atenolol (Tenormin -) 100 mg PO BID [facility] Last Admin: 01/14/19 09:35 Dose: 100 mg Budesonide/Formoterol Fumarate (Symbicort 80/4.5mcg -) 2 puff IH BID [facility] Last Admin: 01/14/19 09:36 Dose: 2 puff Bupropion HCl (Wellbutrin Xl -) 150 mg PO DAILY [facility] Last Admin: 01/14/19 09:35 Dose: 150 mg Clindamycin HCl (Cleocin -) 150 mg PO TID [facility] Last Admin: 01/14/19 13:59 Dose: 150 mg Diltiazem HCl (Cardizem Cd -) 480 mg PO DAILY [facility] Last Admin: 01/14/19 11:55 Dose: 480 mg Furosemide (Lasix Injection -) 40 mg IVPUSH BID@0600,1400 [facility] Last Admin: 01/14/19 13:58 Dose: 40 mg Gabapentin (Neurontin -) 300 mg PO TID [facility] Last Admin: 01/14/19 13:59 Dose: 300 mg Lidocaine (Lidoderm Patch -) 1 patch TP DAILY [facility] Last Admin: 01/14/19 09:36 Dose: 1 patch Oxycodone HCl (Roxicodone -) 10 mg PO Q6H PRN PRN Reason: PAIN- Last Admin: 01/14/19 06:06 Dose: 10 mg - Objective Vital Signs: Vital Signs Temperature 97.2 F L 01/14/19 02:00 Pulse Rate 94 H 01/14/19 14:03 Respiratory Rate 20 01/14/19 14:03 Blood Pressure 142/97 01/14/19 14:03 O2 Sat by Pulse Oximetry (%) 96 01/14/19 09:00 Constitutional: Yes: No Distress, Calm Eyes: Yes: Conjunctiva Clear, EOM Intact HENT: Yes: Atraumatic, Normocephalic Neck: Yes: Supple, Trachea Midline Cardiovascular: Yes: Pulse Irregular, S1, S2. No: Regular Rate and Rhythm, Bradycardia, Tachycardia, Bruit, JVD, Gallop, Murmur, Rub, S3, S4, Varicosities Respiratory: Yes: Regular. No: Rales, Rhonchi, Wheezes Gastrointestinal: Yes: Normal Bowel Sounds, Soft Musculoskeletal: Yes: WNL Extremities: Yes: WNL Edema: LLE: Trace, RLE: Trace Peripheral Pulses WNL: Yes Neurological: Yes: Alert, Oriented Psychiatric: Yes: Alert, Oriented Labs: CBC, BMP 01/14/19 05:30 01/14/19 05:30 INR, PTT INR 1.50 (0.83-1.09) H 01/08/19 21:17 - ....Imaging Chest X-ray: Report Reviewed, Image Reviewed EKG: Report Reviewed, Image Reviewed Other: Report Reviewed, Image Reviewed (tele-AFib, HR control improved, periods of RVR) Assessment/Plan 58F with ho Afib, HfPEF, CKD as recently discharged after managmeent of her heart failure and rate contrl of her Afib on Atenolol 10mg bid and diltiazem 240mg qd. She reports being compliant with her medications. Noted return of the swelling but no dyspnea. Pafib with RVR-HR well controlled since this am. RVR this am in setting of agitation, well controlled the rest of the day -cont Atenolol 100mg po bid -now on Cardizem CD 4800mg daily -on Eliquis 5mg bid -limit beta agonists -pt noted to have well controlled HR when calm but during periods of agitation her HR becomes uncontrolled. -if HR remains not well controlled on current regimen which was increased today will consider Digoxin loading but will likely need to downtitrate her other meds to avoid bradycardia and will need to use caution given her CKD -if HR remains adequately controlled <110bpm, pt can be followed closely as outpatient with plan for Event monitor and further med adjustment, likely EP evaluation as well. Acute on chronic diastolic CHF -volume status improved -bun/creat trending up suggesting developing intravascular depletion -change to po lasix can use 40mg po bid -1L fluid restriction -Monitor strict I/Os, daily weights -monitor bun/creat, electrolytes and replete as needed -echo 12/24/18 showed normal LV/RV systolic function, mod LVH, mild MR/TR, mild to mod AR. -repeat echo done no sig change from prior
[2019-01-15] MEDS: oxyCODONE HCL 5 MG TABLET PO PRN ×2 (00:50→06:26)
[2019-01-15] MEDS: ACETAMINOPHEN 325 MG TABLET (FP) PO PRN (00:51)
[2019-01-15] MEDS: GABAPENTIN 300 MG CAPSULE (FP) PO SCH (06:26)
[2019-01-15] MEDS: FUROSEMIDE 40 MG/4 ML INJECTABLE VIAL IVPUSH SCH (06:27)
[2019-01-15] MEDS: APIXABAN 5 MG TABLET PO SCH (09:29)
[2019-01-15] MEDS: LIDOCAINE 5% TOPICAL PATCH TP SCH (09:29)
[2019-01-15] MEDS: ATENOLOL 50 MG TABLET (FP) PO SCH (09:30)
[2019-01-15] MEDS: BUDESONIDE/FORMETEROL FUMARATE 80/4.5 mcg INHALER IH SCH (09:31)
[2019-01-15 10:07] VITALS: BP 119/64; PULSE 88; TEMP 97.9
--- NOTE | 2019-01-15 11:33 | DS ---
Physical Examination Vital Signs: Vital Signs Temperature 97.9 F 01/15/19 10:00 Pulse Rate 88 01/15/19 10:00 Respiratory Rate 19 01/15/19 10:00 Blood Pressure 119/64 01/15/19 10:00 O2 Sat by Pulse Oximetry (%) 98 01/15/19 08:00 Constitutional: Yes: Calm, Thin Cardiovascular: Yes: Regular Rate and Rhythm, S1, S2 Respiratory: Yes: CTA Bilaterally Gastrointestinal: Yes: Normal Bowel Sounds, Soft Edema: No Neurological: Yes: Alert, Oriented Labs: CBC, BMP 01/14/19 05:30 01/14/19 05:30 Discharge Summary Reason For Visit: ACUTE ON CHRONIC CONGESTIVE HEART FAILURE Current Active Problems CHF (congestive heart failure) (Acute) Leg swelling (Acute) Thrombocytopenia (Acute) Tooth pain (Acute) Hospital Course: 58 y/o woman complained of B/L shoulder pain after moving a water heater on Friday. Pain started in her L shoulder then radiated to her R shoulder. While en route to ER with EMS she was noted to be in Afib with RVR with HR at 160 bpm - responded to diltiazem. ER course was notable for: (1) diltiazem (2) furosemide (3) cxr admitted to telemetry seen by cardiology inc leg edema on iv lasix- leg edema improved and now po lasix Rapid HR inc atenolol 100mg po bid and cardizem - HR controlled right molar pain started on clindamycin po and to see dentist seen by sarah for thrombocytopenia- outpatient follow up Condition: Guarded - Instructions Referrals: Donte Ramos MD [Staff Physician] - (for low platelet count) Alverto Lucero MD [Staff Physician] - 1 Week Disposition: HOME - Home Medications Comprehensive Discharge Medication List: Ambulatory Orders Furosemide [Lasix -] 40 mg PO BID@0600,1400 #60 tablet 08/14/17 Oxycodone HCl/Acetaminophen [Percocet 10-325 mg Tablet] 1 each PO Q6H 03/27/18 Apixaban [Eliquis] 5 mg PO BID 03/28/18 Gabapentin [Neurontin -] 300 mg PO TID 03/29/18 Albuterol 0.083% Nebulizer Gladis [Ventolin 0.083% Nebulizer Soln -] 1 amp NEB Q4H PRN #120 amp 03/30/18 Lidocaine 5% Patch [Lidoderm -] 1 patch TP DAILY #7 patch 05/04/18 Albuterol Sulfate Inhaler - [Ventolin HFA Inhaler -] 1 inh IH QID PRN 05/21/18 Apixaban [Eliquis -] 5 mg PO BID #30 tablet MDD 2 12/28/18 Budesonide/Formeterol Fumarate [SYMBICORT 80/4.5mcg -] 2 puff IH BID #1 inhaler 12/28/18 Bupropion HCl [Wellbutrin Xl -] 150 mg PO DAILY tab.sr.24h 12/28/18 Diltiazem Cd [Cardizem Cd -] 240 mg PO DAILY #30 cap.cd.24h MDD 1 12/28/18 Furosemide [Lasix -] 40 mg PO BID@0600,1400 #60 tablet MDD 2 12/28/18 Atenolol [Tenormin -] 50 mg PO BID MDD 4 01/09/19
[2019-01-15] MEDS ORDERED: FUROSEMIDE 40 MG TABLET (FP) PO SCH (14:00)
[2019-01-19 12:18] LABS: HGB SOLUBILITY Negative (Negative); Hgb A 97.7 % (96.4-98.8); Hgb C 0 % (0.0); Hgb F 0 % (0.0-2.0); Hgb S 0 % (0.0)
== END 2019-01-15 12:23 | disposition home or self-care (01) | DRG 194 ==
LOC: JER 20:50 → JERBED 01-09 00:30 → J2W 01-09 03:09 → OBSVTOIN 01-09 12:03
PROVIDERS: ADMIT Family Medicine; ATTEND Family Medicine
DX: I13.0 Hypertensive heart and chronic kidney disease with heart failure and stage 1 through stage 4 chronic kidney disease, or unspecified chronic kidney disease (principal); I50.33 Acute on chronic diastolic (congestive) heart failure; E11.22 Type 2 diabetes mellitus with diabetic chronic kidney disease; D69.6 Thrombocytopenia, unspecified; Z79.01 Long term (current) use of anticoagulants; J44.9 Chronic obstructive pulmonary disease, unspecified; N18.9 Chronic kidney disease, unspecified; E78.5 Hyperlipidemia, unspecified; I48.0 Paroxysmal atrial fibrillation; K08.89 Other specified disorders of teeth and supporting structures; M19.90 Unspecified osteoarthritis, unspecified site
CPT/HCPCS: 36415; 71045-TC-FY; 80048; 80053; 82525; 82550; 82607; 82746; 82962; 83021; 83036; 83735; 83880; 84443; 84484; 85025; 85027; 85610; 85660; 86038; 93005; 93010; 93306-TC; 93970-TC; 97116-GP; 97161-GP; 99285-25; G0378; J0131

== ENCOUNTER 2019-01-20 11:51 | Inpatient (IN) | payer OTHER ==
--- NOTE | 2019-01-20 12:04 | PDOC ---
History of Present Illness - General Stated Complaint: PAREDES LEG PAIN Time Seen by Provider: 01/20/19 12:04 History Source: Patient Exam Limitations: No Limitations - History of Present Illness Initial Comments: 01/20/19 12:20 58 year old female with PMH HTN, atrial fibrillation on Eliquis, chronic LE swelling, DM presented to ED for bilateral LE swelling x2 days. Pt reported she feels her legs are equally swollen. Pt denied shortness of breath, chest pain, palpitations, abdominal distension, abdominal pain. Pt also admitted to dropping objects from her right hand since yesterday. Allergies: PCN, morphine NIH Stroke Scale - Last Known Well Date/Time & Onset Date Last Known Well: 01/19/19 - Initial Evaluation Level of consciousness: Alert Ask patient the month and their age: Answers both correctly Ask patient to open & close eyes; make fist and let go: Obeys both correctly Best gaze (horizontal eye movement): Normal Visual field testing: No visual field loss Facial paresis (Show teeth/raise eyebrows/close eyes tight): Normal symmetrical movement Motor Function: Left Arm: Normal Motor Function: Right Arm: Normal (extends arm 90 (or 45) degrees for 10 seconds without drift Motor Function: Left Leg: Untestable (Joint fused or limb amputated), explain: (Pt unable to lift LE scondary to pain in LE from swelling) Motor Function: Right Leg: Untestable )Joint fused orlimb amputated), explain: (Pt unable to lift LE scondary to pain in LE from swelling) Limb Ataxia: No ataxia Sensory(Use pinprick test arms,legs,trunk,face/side to side): Normal Best language (Describe picture, name items, read sentences): No Aphasia Dysarthria (read several words): Normal articulation Extinction and Inattention: No abnormality - Total Score NIH Stroke Scale Score: 0 Past History - Past Medical History Allergies/Adverse Reactions: Allergies Allergy/AdvReac Type Severity Reaction Status Date / Time morphine Allergy Severe Verified 01/09/19 06:22 Penicillins Allergy Severe Hives Verified 01/09/19 06:22 tomato [Tomato] Allergy Unknown Verified 01/09/19 06:22 chocolate AdvReac Unknown Uncoded 01/09/19 06:22 Home Medications: Ambulatory Orders Apixaban [Eliquis] 5 mg PO BID 03/28/18 Lidocaine 5% Patch [Lidoderm -] 1 patch TP DAILY #7 patch 05/04/18 Albuterol Sulfate Inhaler - [Ventolin HFA Inhaler -] 1 inh IH QID PRN 05/21/18 Apixaban [Eliquis -] 5 mg PO BID #30 tablet MDD 2 12/28/18 Budesonide/Formeterol Fumarate [SYMBICORT 80/4.5mcg -] 2 puff IH BID #1 inhaler 12/28/18 Bupropion HCl [Wellbutrin Xl -] 150 mg PO DAILY tab.sr.24h 12/28/18 Atenolol [Tenormin -] 100 mg PO BID #60 tablet MDD 2 01/15/19 Clindamycin [Cleocin -] 150 mg PO TID #14 capsule MDD 3 01/15/19 Diltiazem Cd [Cardizem Cd -] 480 mg PO DAILY #60 cap.cd.24h MDD 2 01/15/19 Furosemide [Lasix -] 40 mg PO BID@0600,1400 #30 tablet MDD 2 01/15/19 Gabapentin [Neurontin -] 300 mg PO TID capsule 01/15/19 Anemia: No Asthma: Yes Cancer: No Cardiac Disorders: Yes (A-fib) CVA: No COPD: Yes CHF: Yes Dementia: No Diabetes: Yes GI Disorders: No Disorders: Yes (CKD) HTN: Yes Hypercholesterolemia: Yes Liver Disease: No Seizures: No Thyroid Disease: Yes (Hypothyroid) - Surgical History Abdominal Surgery: No Appendectomy: No Cardiac Surgery: No Cholecystectomy: No Lung Surgery: No Neurologic Surgery: No Orthopedic Surgery: No - Immunization History Td Vaccination: Yes TDAP Vaccination: Yes Immunization Up to Date: Yes - Suicide/Smoking/Psychosocial Hx Smoking Status: Yes Smoking History: Unknown if ever smoked Years of Tobacco Use: 30 Have you smoked in the past 12 months: Yes Number of Cigarettes Smoked Daily: 4 Cigars Per Day: 0 'Breaking Loose' booklet given: 03/27/18 Hx Alcohol Use: No Drug/Substance Use Hx: No Substance Use Type: None Hx Substance Use Treatment: No Review of Systems - Review of Systems Able to Perform ROS?: Yes Comments:: 01/20/19 12:22 General: denied fever, chills, generalized weakness. HEENT: denied sore throat, rhinorrhea, ear pain. Heart: admitted to LE swelling. denied chest pain, palpitations, syncope, diaphoresis. Respiratory: denied shortness of breath, cough, sputum production, hemoptysis. Abdomen: denied abdominal pain, nausea, vomiting, diarrhea, constipation, blood in stool. : denied dysuria, increased urinary frequency, hematuria, urinary incontinence , flank pain. Back: denied back pain. Musculoskeletal: denied joint pain, muscle pain, joint swelling. Neurological: admitted to right hand weakness. denied headache, dizziness, numbness, tingling. Skin: denied rash, laceration, abrasion. *Physical Exam - Physical Exam Comments: 01/20/19 12:23 Constitutional: Well-nourished, Well-developed, appearing stated age. HEENT: head is normocephalic, atraumatic. EOMI. PERRLA. Neck: supple. Full ROM. Heart: irregularly irregular rhythm. no murmurs, rubs or gallops. Lungs: mild fine crackles to bilateral bases, otherwise clear to auscultation bilaterally. no rhonchi or wheezing. no stridor. speaking full sentences. Abdomen: soft, nontender. normal bowel sounds. no rebound, guarding, masses. Extremities: peripheral pulses intact. 4+ pitting edema to lower extremities bilaterally. Neurological: positive asterixis. alert. oriented x3. CN2-12 intact. 0/5 strength bilateral LE secondary to pain in LE. 5/5 strenght to bilateral upper extremities. normal ankle plantar flexion. full sensation all extremities and bilateral face. no ataxia. gait not observed. Psych: awake, alert, oriented x3. follows commands. answers questions appropriately. ED Treatment Course - LABORATORY CBC & Chemistry Diagram: 01/21/19 06:55 01/21/19 06:55 Medical Decision Making - Medical Decision Making 01/20/19 12:34 58 year old female with above PMH presented to ED for increasing bilateral LE swelling and associated right hand weakness. Asterixis noted on physical examination. Initial Vital Signs Temp Pulse Resp BP Pulse Ox 98.4 F 88 20 140/77 95 01/20/19 12:07 01/20/19 12:07 01/20/19 12:07 01/20/19 12:07 01/20/19 12:07 Afebrile. No tachycardia. No tachypnea. Mild hypertension. No hypoxia on room air. Labs ordered: CBC, CMP, BNP, coags Imaging ordered: CT head, CXR Medications ordered: none EKG performed at 1422: rate 86, irregularly irregular rhythm, left axis, QTC 500 , no acute ST changes. 01/20/19 13:45 CXR my view: cardiomegaly. pulmonary vascular congestion. hazy costophrenic angles. CXR report: no active pulmonary disease. 01/20/19 14:19 Lab and In[facility] not communicating, lab faxed lab results. pH 7.2 CO2 retention -Respiratory acidosis Cr 2.9 JOSEPH BNP 4500 INR 1.82 Bipap ordered. US informed to do bedside RUQ and LE doppler US. 01/20/19 14:31 CBC WBC 5.7 K/mm3 (4.0-10.0) 01/20/19 12:36 RBC 4.30 M/mm3 (3.60-5.2) 01/20/19 12:36 Hgb 12.4 GM/dL (10.7-15.3) 01/20/19 12:36 Hct 39.8 % (32.4-45.2) 01/20/19 12:36 MCV 92.5 fl (80-96) 01/20/19 12:36 MCH 28.9 pg (25.7-33.7) 01/20/19 12:36 MCHC 31.3 g/dl (32.0-36.0) L 01/20/19 12:36 RDW 16.2 % (11.6-15.6) H 01/20/19 12:36 Plt Count 110 K/MM3 (134-434) L D 01/20/19 12:36 MPV 11.5 fl (7.5-11.1) H 01/20/19 12:36 Absolute Neuts (auto) 2.6 K/mm3 (1.5-8.0) 01/20/19 12:36 Neutrophils % 45.7 % (42.8-82.8) 01/20/19 12:36 Lymphocytes % 34.6 % (8-40) 01/20/19 12:36 Monocytes % 15.4 % (3.8-10.2) H 01/20/19 12:36 Eosinophils % 3.6 % (0-4.5) 01/20/19 12:36 Basophils % 0.7 % (0-2.0) 01/20/19 12:36 Nucleated RBC % 0 % (0-0) 01/20/19 12:36 No leukocytosis. No anemia. Thrombocytopenia. CMP Sodium 135 mmol/L (136-145) L 01/20/19 12:18 Potassium 4.0 mmol/L (3.5-5.1) 01/20/19 12:18 Chloride 95 mmol/L (98-107) L 01/20/19 12:18 Carbon Dioxide 32 mmol/L (21-32) 01/20/19 12:18 Anion Gap 8 MMOL/L (8-16) 01/20/19 12:18 BUN 35 mg/dL (7-18) H 01/20/19 12:18 Creatinine 2.9 mg/dL (0.55-1.3) H 01/20/19 12:18 Est GFR (CKD-EPI)AfAm 19.57 01/20/19 12:18 Est GFR (CKD-EPI)NonAf 16.89 01/20/19 12:18 Random Glucose 113 mg/dL (74-106) H 01/20/19 12:18 Calcium 8.7 mg/dL (8.5-10.1) 01/20/19 12:18 Total Bilirubin 0.4 mg/dL (0.2-1) 01/20/19 12:18 AST 17 U/L (15-37) 01/20/19 12:18 ALT 19 U/L (13-61) 01/20/19 12:18 Alkaline Phosphatase 94 U/L (45-117) 01/20/19 12:18 B-Natriuretic Peptide 4547.5 pg/ml (5-125) H 01/20/19 12:18 Total Protein 7.2 g/dl (6.4-8.2) 01/20/19 12:18 Albumin 3.7 g/dl (3.4-5.0) 01/20/19 12:18 No clinically significant electrolyte abnormalities. JOSEPH No transaminitis BNP elevation Dr. Bender spoke with Dr. Carlin. Pt to be [facility]. Pending admission. 01/20/19 15:16 I spoke with Melani Charles (pt's sister) about the patient, she stated she will come to [facility]. [phone] 01/20/19 16:07 Ammonia 40 01/20/19 16:25 ABG - pH 7.32, CO2 63 Improving with BIPAP. *DC/Admit/Observation/Transfer Diagnosis at time of Disposition: Respiratory acidosis, JOSEPH (acute kidney injury), Swelling of lower extremity - Discharge Dispostion Condition at time of disposition: Stable Decision to Admit order: Yes - Referrals - Patient Instructions - Post Discharge Activity
[2019-01-20 12:48] LABS: BASO % 0.7 % (0-2.0); EOS % 3.6 % (0-4.5); HEMATOCRIT 39.8 % (32.4-45.2); HEMOGLOBIN 12.4 GM/dL (10.7-15.3); LYMPH % 34.6 % (8-40); MCH 28.9 pg (25.7-33.7); MCHC 31.3 g/dl (32.0-36.0); MEAN CELL VOLUME 92.5 fl (80-96); MEAN PLT VOLUME 11.5 fl (7.5-11.1); MONO % 15.4 % (3.8-10.2); NEUT % 45.7 % (42.8-82.8); PLATELET COUNT 110 K/MM3 (134-434); RDW 16.2 % (11.6-15.6); WHITE BLOOD COUNT 5.7 K/mm3 (4.0-10.0)
[2019-01-20 13:02] LABS: VENOUS PH 7.28 (7.31-7.41); VENOUS PO2 31.1 mmHg (30-40)
[2019-01-20 13:05] LABS: VENOUS PC02 73.3 mmHg (41-51)
[2019-01-20 13:07] LABS: INR 1.82 (0.83-1.09); PROTHROMBIN TIME (PATIENT) 21.6 SEC (9.7-13.0)
[2019-01-20 13:10] LABS: ACTIVATED PTT 44.8 SECONDS (25.2-36.5)
--- NOTE | 2019-01-20 13:47 | PDOC ---
Documentation entered by Jen Robbins SCRIBE, acting as scribe for Antonia Bender DO. Antonia Bender DO: This documentation has been prepared by the merryibe, Jen Robbins SCRIBE, under my direction and personally reviewed by me in its entirety. I confirm that the documentation accurately reflects all work, treatment, procedures, and medical decision making performed by me. Attending Attestation - Resident Resident Name: Ryan Zamarripayla - ED Attending Attestation I have performed the following: I have examined & evaluated the patient, The case was reviewed & discussed with the resident, I agree w/resident's findings & plan, Exceptions are as noted - HPI HPI: 01/20/19 12:27 The patient is a 58-year-old female, with a past medical history of HTN, afib ( on Eliquis), DM, chronic LE swelling, who presents to the ED with 2 days of progressively worsening B/L LE swelling and pain. Daughter is at bedside and also reports that the patient has been unintentionally dropping things out of her right hand. This began at 11AM yesterday morning when the patient dropped her plate of breakfast and a cup of coffee. The patient denies any fevers, chills, nausea, vomiting, diarrhea, or abdominal pain. Denies any shortness of breath or chest pain. Denies any weakness or numbness of the extremities. Denies any urinary symptoms. Allergies: Morphine, Penicillin, tomato, chocolate. PCP: Dr. Bnod - Physicial Exam PE: 01/20/19 12:36 GENERAL: (+)Patient is very sleepy. Awake, alert, and fully oriented, in no acute distress HEAD: No signs of trauma EYES: PERRLA, EOMI, sclera anicteric, conjunctiva clear ENT: Auricles normal inspection, hearing grossly normal, nares patent, oropharynx clear without exudates. Moist mucosa NECK: Normal ROM, supple, no lymphadenopathy, JVD, or masses LUNGS: (+)Crackles B/L bases. HEART: Regular rate and rhythm, normal S1 and S2, no murmurs, rubs or gallops ABDOMEN: Soft, nontender, normoactive bowel sounds. No guarding, no rebound. No masses EXTREMITIES: Normal range of motion, no edema. No clubbing or cyanosis. No cords, erythema, or tenderness NEUROLOGICAL: (+)Asterixis. No pronator drift, 5/5 muscle strength. Cranial nerves II through XII grossly intact. Normal speech. SKIN: Warm, Dry, normal turgor, no rashes or lesions noted - Medical Decision Making 01/20/19 13:45 I, Dr. Antonia Bender, DO, attest that this document has been prepared under my direction and personally reviewed by me in its entirety. I further attest, that it accurately reflects all work, treatment, procedures and medical decision -making performed by me. 01/20/19 13:45 a/p: 58yo female presents for eval of LE swelling and dropping items out of her R hand since yesterday at 11am -pt arrives neuro intact -denies cp/sob -pt with 4+pitting edema to LE -no calf ttp -pt with asterixis on exam - sleepy but arousable, no jaundice -will send labs, concern for renal or liver failure with asterixis, will send ammonia -will obtain LE ultrasound -will monitor and reassess, given new asterixis, concern for need for admission 01/20/19 13:52 pt with hypercapnic resp failure will start bipap elevated INR, on prior labs elevated folate and serum copper 01/20/19 13:53 will obtain RUQ ultrasound 01/20/19 14:20 pt with stephanie ammonia pending call placed to Dr. Carlin for admission 01/20/19 14:34 case discussed with Huy DUONG who accepts pt to service Heart Score/ECG Review - ECG Intrepretation Comment:: 01/20/19 14:36 afib at 80, incomplete RBBB, LAFB, t wave inversions I, avl, no acute changes
[2019-01-20 14:00] LABS: ALBUMIN 3.7 g/dl (3.4-5.0); BILIRUBIN,TOTAL 0.4 mg/dL (0.2-1); CALCIUM 8.7 mg/dL (8.5-10.1); CREATININE 2.9 mg/dL (0.55-1.3); N-TERMINAL BNP 4547.5 pg/ml (5-125); TOT PROT 7.2 g/dl (6.4-8.2)
[2019-01-20] MEDS ORDERED: ALBUTEROL SO4 0.083% IH SOL 2.5 MG/3 ML VIAL.NEB. NEB PRN (14:37)
--- NOTE | 2019-01-20 15:09 | PN ---
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 (short form) - Note 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: PULMONARY CONSULTATION DICTATED 01/20/19 IMP ACUTE ON CHRONIC HYPERCAPNEIC RESPIRATORY FAILURE LIKELY COPD EXACERBATION DIASTOLIC HF LOWER EXTREMITY EDEMA AFIB LIKELY TANISHA OBESITY ACUTE ON CHRONIC KIDNEY INJURY THROMBOCYTOPENIA SMOKER PLAN INHALE BRONCHODILATORS O2 BIPAP F/U ABGS SHORT COURSE OF MEDROL MONITOR LYTES,RENAL FUNCTION DAILY WT CHEST CT SMOKING CESSATION PFTS OUTPATIENT SLEEP STUDIES OUTPATIENT DR ROLLE
[2019-01-20 15:53] LABS: ARTERIAL BLD GAS O2 SATURATION 99.2 % (95-98); ARTERIAL BLOOD GAS BASE EXCESS 4.1 meq/l (-2-2); ARTERIAL BLOOD GAS PCO2 63.1 mmHg (35-45); ARTERIAL BLOOD GAS PO2 150 mmHg (80-105); ARTERIAL BLOOD GAS pH 7.32 (7.35-7.45)
[2019-01-20 15:55] LABS: ALLENS TEST POSITIVE
[2019-01-20] MEDS: ACETAMINOPHEN 1000 MG/100 ML VIAL (NON FORMULARY) IVPB ONE ×2 (17:34→17:48)
[2019-01-20] MEDS: ALBUTEROL SO4 2.5/IPRATROPIUM 0.5 INH SOL 3 ML VIAL.NEB. NEB SCH ×2 (17:34→21:26)
[2019-01-20] MEDS: methylPREDNISolone NA SUCC 40 MG/1 ML VIAL IVPUSH SCH ×2 (17:34→21:22)
[2019-01-20] MEDS ORDERED: methylPREDNISolone NA SUCC 125 MG/2 ML VIAL ONE (17:37)
[2019-01-20] MEDS ORDERED: ACETAMINOPHEN INJECTION 100 ML IVPB ONE (17:37)
[2019-01-20] MEDS ORDERED: ALBUTEROL SO4 2.5/IPRATROPIUM 0.5 INH SOL 3 ML VIAL.NEB. NEB ONE (17:37)
--- NOTE | 2019-01-20 17:41 | HP ---
Admitting History and Physical - Admission Chief Complaint: lower leg swelling History of Present Illness: Patient is a 58 y/o female with past medical history of HTN, Afib (on Eliquis), DM, chronic LE swelling. Patient presented to ER with complaints of increase in bilateral lower extremity swelling since Friday. Patient complain of dropping objects, states having difficulty holding object in her hand. Denies fever, chills, sob, chest pain, nausea, vomiting, abdominal pain. History Source: Patient Limitations to Obtaining History: No Limitations - Past Medical History Cardiovascular: Yes: AFIB, CHF, HTN Pulmonary: Yes: COPD Renal/: Yes: Renal Inusuff (CKD) Heme/Onc: Yes: Anemia Endocrine: Yes: Diabetes Mellitus - Smoking History Smoking history: Unknown if ever smoked Have you smoked in the past 12 months: Yes Aproximately how many cigarettes per day: 4 - Alcohol/Substance Use Hx Alcohol Use: No History of Substance Use: reports: None - Social History Usual Living Arrangement: Yes: With Spouse ADL: Independent History of Recent Travel: No Home Medications - Allergies Allergies/Adverse Reactions: Allergies Allergy/AdvReac Type Severity Reaction Status Date / Time morphine Allergy Severe Verified 01/09/19 06:22 Penicillins Allergy Severe Hives Verified 01/09/19 06:22 tomato [Tomato] Allergy Unknown Verified 01/09/19 06:22 chocolate AdvReac Unknown Uncoded 01/09/19 06:22 - Home Medications Home Medications: Ambulatory Orders Apixaban [Eliquis] 5 mg PO BID 03/28/18 Lidocaine 5% Patch [Lidoderm -] 1 patch TP DAILY #7 patch 05/04/18 Albuterol Sulfate Inhaler - [Ventolin HFA Inhaler -] 1 inh IH QID PRN 05/21/18 Budesonide/Formeterol Fumarate [SYMBICORT 80/4.5mcg -] 2 puff IH BID #1 inhaler 12/28/18 Bupropion HCl [Wellbutrin Xl -] 150 mg PO DAILY tab.sr.24h 12/28/18 Furosemide [Lasix -] 40 mg PO BID@0600,1400 #30 tablet MDD 2 01/15/19 Gabapentin [Neurontin -] 300 mg PO TID capsule 01/15/19 Cholecalciferol (Vitamin D3) [Vitamin D -] 50,000 unit PO WEEKLY 01/22/19 Linagliptin [Tradjenta] 5 mg PO DAILY 01/22/19 Oxycodone HCl/Acetaminophen [Endocet 10-325 mg Tablet] 1 each PO TID 01/22/19 hydrOXYzine PAMOATE [Vistaril -] 50 mg PO DAILY 01/22/19 Apixaban [Eliquis -] 5 mg PO BID #30 tablet MDD 2 01/29/19 Digoxin [Lanoxin -] 0.125 mg PO Q48H #30 tablet 01/29/19 Furosemide [Lasix -] 40 mg PO BID@0600,1400 #30 tablet MDD 2 01/29/19 Metoprolol Tartrate [Lopressor -] 200 mg PO BID #60 tablet 01/29/19 Verapamil HCl [Calan -] 80 mg PO TID #90 tablet MDD 3 01/29/19 predniSONE [Deltasone -] 40 mg PO DAILY #14 tablet 01/29/19 Review of Systems - Review of Systems Constitutional: reports: No Symptoms Eyes: reports: No Symptoms HENT: reports: No Symptoms Neck: reports: No Symptoms Cardiovascular: reports: No Symptoms Respiratory: reports: No Symptoms Gastrointestinal: reports: Constipation Genitourinary: reports: No Symptoms Breasts: reports: No Symptoms Reported Musculoskeletal: reports: No Symptoms Integumentary: reports: No Symptoms Neurological: reports: No Symptoms Endocrine: reports: No Symptoms Hematology/Lymphatic: reports: No Symptoms Psychiatric: reports: No Symptoms Physical Examination Vital Signs: Vital Signs Temperature 98.4 F 01/20/19 12:07 Pulse Rate 88 01/20/19 12:07 Respiratory Rate 20 01/20/19 12:07 Blood Pressure 140/77 01/20/19 12:07 O2 Sat by Pulse Oximetry (%) 98 01/20/19 14:20 Constitutional: Yes: No Distress, Calm Eyes: Yes: Conjunctiva Clear HENT: Yes: Atraumatic Neck: Yes: Supple Cardiovascular: Yes: Regular Rate and Rhythm Respiratory: Yes: Regular, Rhonchi Gastrointestinal: Yes: Normal Bowel Sounds, Soft Musculoskeletal: Yes: Muscle Weakness Extremities: Yes: WNL Edema: Yes Edema: LLE: 2+, RLE: 2+ Neurological: Yes: Alert, Oriented Psychiatric: Yes: Alert, Oriented Labs: CBC, BMP 01/20/19 12:36 05/15/19 12:18 Imaging - Results Chest X-ray: Report Reviewed Cat Scan: Report Reviewed Ultrasound: Report Reviewed Problem List - Problems (1) Acute on chronic diastolic (congestive) heart failure Assessment/Plan: -Cardiology consult -1L fluid restriction -daily weights -Lasix IVP daily -BNP 4547 Code(s): I50.33 - ACUTE ON CHRONIC DIASTOLIC (CONGESTIVE) HEART FAILURE (2) Afib Assessment/Plan: -continue Eliquis Code(s): I48.91 - UNSPECIFIED ATRIAL FIBRILLATION Qualifiers: Atrial fibrillation type: unspecified Qualified Code(s): I48.91 - Unspecified atrial fibrillation (3) CKD (chronic kidney disease) Assessment/Plan: -BUN/Cr 35/2.9 -monitor renal function -renal consult Code(s): N18.9 - CHRONIC KIDNEY DISEASE, UNSPECIFIED (4) Hypertension Assessment/Plan: -continue Cardizem and Atenolol -low Na diet Code(s): I10 - ESSENTIAL (PRIMARY) HYPERTENSION (5) COPD (chronic obstructive pulmonary disease) Assessment/Plan: -Symbicort -IV medrol -bronchodilators -Keep SpO2 >90% -O2 via NC -Bipap HS -pulm on board Code(s): J44.9 - CHRONIC OBSTRUCTIVE PULMONARY DISEASE, UNSPECIFIED Qualifiers: (6) Respiratory acidosis Assessment/Plan: -Pulm on board -Bipap QHS -monitor ABG Code(s): E87.2 - ACIDOSIS Assessment/Plan see problem list dvt ppx
--- NOTE | 2019-01-20 19:51 | CON.CARD ---
Consult Consult Specialty:: Cardiology Referred by:: Dr. Carlin Reason for Consultation:: Leg edema, CHF - History of Present Illness Chief Complaint: Worsening bilateral leg edema History of Present Illness: 58-year-old woman with a PMHx of HTN, DM, persistent atrial fibrillation on Eliquis, chronic diastolic CHF, CKD, COPD, chronic leg swelling presented to ED with 2 days of progressively worsening bilateral leg edema and pain. The patient was admitted twice in the past month with rapid afib and leg edema. She noticed worsening leg edema with pain for 2 days. She has no SOB at rest, her PEÑA and orthopnea (2 pellows) are at her baseline. She denies palpitation, chest pain, dizziness, syncope or near syncope. Her exercise tolerance is limited because of leg pain and PEÑA. She was found to have elevated BUN/Creat. BNP is elevate, but lower than before. LE duplex 01/20/19 showed no DVT. CXR 01/20/19 revealed cardiomegaly without acute pulmonary process. CT head showed central atrophy and microvascular ischemic changes. Echocardiogram 01/12/2019: Normal LV size with asymmetric hypertrophy and normal systolic function. LVEF 55%. Normal LA and RA in size. Mild to moderate AI. Trace MR. Mild TR. No pulm HTN. - History Source History Provided By: Patient, Medical Record Limitations to Obtaining History: No Limitations - Past Medical History Cardio/Vascular: Yes: AFIB, CHF, HTN Pulmonary: Yes: COPD Renal/: Yes: Renal Inusuff (CKD) Endocrine: Yes: Diabetes Mellitus - Alcohol/Substance Use Hx Alcohol Use: No History of Substance Use: reports: None - Smoking History Smoking history: Unknown if ever smoked Have you smoked in the past 12 months: Yes Aproximately how many cigarettes per day: 4 - Social History Usual Living Arrangement: With Spouse (and two grand children) ADL: Independent History of Recent Travel: No Home Medications - Allergies Allergies/Adverse Reactions: Allergies Allergy/AdvReac Type Severity Reaction Status Date / Time morphine Allergy Severe Verified 01/09/19 06:22 Penicillins Allergy Severe Hives Verified 01/09/19 06:22 tomato [Tomato] Allergy Unknown Verified 01/09/19 06:22 chocolate AdvReac Unknown Uncoded 01/09/19 06:22 - Home Medications Home Medications: Ambulatory Orders Apixaban [Eliquis] 5 mg PO BID 03/28/18 Lidocaine 5% Patch [Lidoderm -] 1 patch TP DAILY #7 patch 05/04/18 Albuterol Sulfate Inhaler - [Ventolin HFA Inhaler -] 1 inh IH QID PRN 05/21/18 Apixaban [Eliquis -] 5 mg PO BID #30 tablet MDD 2 12/28/18 Budesonide/Formeterol Fumarate [SYMBICORT 80/4.5mcg -] 2 puff IH BID #1 inhaler 12/28/18 Bupropion HCl [Wellbutrin Xl -] 150 mg PO DAILY tab.sr.24h 12/28/18 Atenolol [Tenormin -] 100 mg PO BID #60 tablet MDD 2 01/15/19 Clindamycin [Cleocin -] 150 mg PO TID #14 capsule MDD 3 01/15/19 Diltiazem Cd [Cardizem Cd -] 480 mg PO DAILY #60 cap.cd.24h MDD 2 01/15/19 Furosemide [Lasix -] 40 mg PO BID@0600,1400 #30 tablet MDD 2 01/15/19 Gabapentin [Neurontin -] 300 mg PO TID capsule 01/15/19 Review of Systems - Review of Systems Constitutional: reports: Malaise, Night Sweats HENT: reports: No Symptoms Neck: reports: No Symptoms Cardiovascular: reports: Palpitations, Shortness of Breath Respiratory: reports: Orthopnea, SOB on Exertion Gastrointestinal: reports: No Symptoms Musculoskeletal: reports: Extremity Pain, Joint Swelling Neurological: reports: No Symptoms Endocrine: reports: No Symptoms Vital Signs: Vital Signs Temperature 98.4 F 01/20/19 12:07 Pulse Rate 88 01/20/19 12:07 Respiratory Rate 20 01/20/19 12:07 Blood Pressure 140/77 01/20/19 12:07 O2 Sat by Pulse Oximetry (%) 100 01/20/19 18:00 General: Well developed. Chronic ill. No acute distress. Head: Normocephalic. Atraumatic, Eyes: PERRLA, EOMI. Sclerae anicteric. Conjunctivae clear. Neck: Supple. No JVD. No bruits. Heart: Normal S1, S2: Irregular rhythm and rate. No murmur. No gallop or rub. Lungs: Symmetrical air entry. Minimal bibasilar crackle. No wheezing or rhonchi. Abdomen: Soft. Bowel sound positive. Non tender. No masses. Extremities: 2+ edema. No clubbing or cyanosis. PD 2+, equal bilaterally. Neuro: Intact, no focal findings. AAO X3. - Other Data Labs, Other Data: CBC, BMP 01/20/19 12:36 01/20/19 12:18 INR, PTT INR 1.82 (0.83-1.09) H 01/20/19 12:36 Troponin, BNP 01/20/19 12:18 B-Natriuretic Peptide 4547.5 H Troponin, BNP 01/20/19 12:18 B-Natriuretic Peptide 4547.5 H Assessment/Plan 58-year-old woman with a PMHx of HTN, DM, persistent atrial fibrillation on Eliquis, chronic diastolic CHF, CKD, COPD, chronic leg swelling presented to ED with 2 days of progressively worsening bilateral leg edema and pain. She was found to have elevated BUN/Creat. BNP is elevate, but lower than before. LE duplex 01/20/19 showed no DVT. CXR 01/20/19 revealed cardiomegaly without acute pulmonary process. CT head showed central atrophy and microvascular ischemic changes. Echocardiogram 01/12/2019: Normal LV size with asymmetric hypertrophy and normal systolic function. LVEF 55%. Normal LA and RA in size. Mild to moderate AI. Trace MR. Mild TR. No pulm HTN. 1) Worsening leg edema: likely multifactorial: JOSEPH on CKD with decrease urine output on current dose of furosemide; side effects of high dose of diltiazem and possible diastolic CHF. Renal consult for JOSEPH on CKD, adjust the dose of furosemide. Reduce diltiazem to 240 mg daily. 2) Chronic diastolic CHF: stable without acute SOB. BNP is lower than before. 3) Persistent atrial fibrillation with controlled VR. Reduce diltiazem to 240 mg daily for worsening leg edema. May need to add digoxin for VR control. Continue atenolol Continue Eliquis. No further cardiac test recommended. Please call us for reconsult as needed.
[2019-01-20] MEDS ORDERED: PT OWN MED DRAWER 7, Y5N ONE (20:59)
[2019-01-20] MEDS: INSULIN SLIDING SCALE (NOVOLOG) 1 VIAL SQ SCH (21:21)
[2019-01-20] MEDS: GABAPENTIN 300 MG CAPSULE (FP) PO SCH (21:22)
[2019-01-20] MEDS: APIXABAN 5 MG TABLET PO SCH (21:22)
[2019-01-20] MEDS ORDERED: ATENOLOL 50 MG TABLET (FP) PO SCH (22:00)
[2019-01-20] MEDS ORDERED: APIXABAN 5 MG TABLET PO SCH (22:00)
[2019-01-21] MEDS: BUDESONIDE/FORMETEROL FUMARATE 80/4.5 mcg INHALER IH SCH ×4 (00:51→21:38)
[2019-01-21] MEDS: methylPREDNISolone NA SUCC 40 MG/1 ML VIAL IVPUSH SCH ×4 (02:53→21:31)
[2019-01-21] MEDS ORDERED: DOCUSATE SODIUM 100 MG CAPSULE (FP) PO ONE (05:35)
[2019-01-21] MEDS: INSULIN SLIDING SCALE (NOVOLOG) 1 VIAL SQ SCH ×4 (06:12→21:36)
[2019-01-21] MEDS: GABAPENTIN 300 MG CAPSULE (FP) PO SCH ×3 (06:23→21:31)
[2019-01-21 07:31] LABS: BASO % 0.4 % (0-2.0); HEMATOCRIT 40.4 % (32.4-45.2); HEMOGLOBIN 12.8 GM/dL (10.7-15.3); MCH 29.1 pg (25.7-33.7); MCHC 31.8 g/dl (32.0-36.0); MEAN CELL VOLUME 91.5 fl (80-96); MEAN PLT VOLUME 10.9 fl (7.5-11.1); MONO % 1.2 % (3.8-10.2); NEUT % 82.4 % (42.8-82.8); PLATELET COUNT 111 K/MM3 (134-434); RBC 4.42 M/mm3 (3.60-5.2); RDW 16.2 % (11.6-15.6); WHITE BLOOD COUNT 3.5 K/mm3 (4.0-10.0)
[2019-01-21 08:33] LABS: ALBUMIN 3.4 g/dl (3.4-5.0); ALK PHOS 85 U/L (45-117); ANION GAP 8 MMOL/L (8-16); BILIRUBIN,TOTAL 0.4 mg/dL (0.2-1); BLOOD UREA NITROGEN 36 mg/dL (7-18); CALCIUM 8.8 mg/dL (8.5-10.1); CHLORIDE 102 mmol/L (98-107); CHOLESTEROL 140 mg/dL (50-200); CO2 32 mmol/L (21-32); CREATININE 2.3 mg/dL (0.55-1.3); GLUCOSE,RANDOM 201 mg/dL (74-106); HDL CHOLESTEROL 56 mg/dL (40-60); MAGNESIUM 2.7 mg/dL (1.8-2.4); N-TERMINAL BNP 5133.7 pg/ml (5-125); PHOSPHOROUS 3.7 mg/dL (2.5-4.9); POTASSIUM 3.8 mmol/L (3.5-5.1); SGOT/AST 18 U/L (15-37); SGPT/ALT 23 U/L (13-61); SODIUM 141 mmol/L (136-145); TRIGLYCERIDES 43 mg/dL (0-150)
[2019-01-21] MEDS: APIXABAN 5 MG TABLET PO SCH ×2 (09:00→21:31)
[2019-01-21] MEDS: FUROSEMIDE 40 MG/4 ML INJECTABLE VIAL IVPUSH SCH (09:00)
[2019-01-21] MEDS: ALBUTEROL SO4 2.5/IPRATROPIUM 0.5 INH SOL 3 ML VIAL.NEB. NEB SCH ×4 (09:00→20:13)
--- NOTE | 2019-01-21 09:08 | CON.GI ---
Consult Consult Specialty:: GI Referred by:: NATASHA Hoyos Reason for Consultation:: Gallstones - History of Present Illness Chief Complaint: Leg swelling History of Present Illness: 58F [address] [facility] for evaluation of worsening b/l leg edema. Noted to have worsening renal function. She was evaluated by cardiology: suspected right sided heart failure and recommended renal evaluation for diuretic adjustment. Called to evaluate for gallstones. US revealed 1 x 2cm gallstone with thickened GB wall and trace pericholecystic fluid. The patient denies any abdominal pain. She has never had an upper endoscopy or colonoscopy. She denies change in bowel habits (chronic constipation), rectal bleeding, melena. - History Source History Provided By: Patient, Medical Record Limitations to Obtaining History: Poor Historian - Past Medical History CERTIFIED NURSES' AIDE: Yes: Other (Sciatica) Cardio/Vascular: Yes: AFIB, CHF, HTN Pulmonary: Yes: COPD Renal/: Yes: Renal Inusuff (CKD) Musculoskeletal: Yes: Osteoarthritis Endocrine: Yes: Diabetes Mellitus - Past Surgical History Additional Surgical History: Denies - Alcohol/Substance Use Hx Alcohol Use: Yes (ex heavy ETOH abuse, quit 10 years ago) History of Substance Use: reports: None - Smoking History Smoking history: Unknown if ever smoked Have you smoked in the past 12 months: Yes Aproximately how many cigarettes per day: 4 - Social History Usual Living Arrangement: With Spouse (and two grand children) ADL: Independent Place of : [facility] History of Recent Travel: No Home Medications - Allergies Allergies/Adverse Reactions: Allergies Allergy/AdvReac Type Severity Reaction Status Date / Time morphine Allergy Severe Verified 01/09/19 06:22 Penicillins Allergy Severe Hives Verified 01/09/19 06:22 tomato [Tomato] Allergy Unknown Verified 01/09/19 06:22 chocolate AdvReac Unknown Uncoded 01/09/19 06:22 - Home Medications Home Medications: Ambulatory Orders Apixaban [Eliquis] 5 mg PO BID 03/28/18 Lidocaine 5% Patch [Lidoderm -] 1 patch TP DAILY #7 patch 05/04/18 Albuterol Sulfate Inhaler - [Ventolin HFA Inhaler -] 1 inh IH QID PRN 05/21/18 Apixaban [Eliquis -] 5 mg PO BID #30 tablet MDD 2 12/28/18 Budesonide/Formeterol Fumarate [SYMBICORT 80/4.5mcg -] 2 puff IH BID #1 inhaler 12/28/18 Bupropion HCl [Wellbutrin Xl -] 150 mg PO DAILY tab.sr.24h 12/28/18 Atenolol [Tenormin -] 100 mg PO BID #60 tablet MDD 2 01/15/19 Clindamycin [Cleocin -] 150 mg PO TID #14 capsule MDD 3 01/15/19 Diltiazem Cd [Cardizem Cd -] 480 mg PO DAILY #60 cap.cd.24h MDD 2 01/15/19 Furosemide [Lasix -] 40 mg PO BID@0600,1400 #30 tablet MDD 2 01/15/19 Gabapentin [Neurontin -] 300 mg PO TID capsule 01/15/19 Family Disease History - Family Disease History Family Disease History: Other: Father (: Fell down stairs), Mother (: 80 : CHF), Brother (2, 1 unclear causes), Sister (4 sis: 1 : PR, 1 unclear cause), Son (3), Daughter (3) Other Family History: 2 children as infants Review of Systems - Review of Systems Constitutional: denies: Unintentional Wgt. Loss Respiratory: reports: SOB, SOB on Exertion Gastrointestinal: reports: Constipation. denies: Abdominal Pain, Bloating, Diarrhea, Melena, Rectal Bleeding, Vomiting, Vomiting Blood Physical Exam-GI Vital Signs: Vital Signs Temperature 97.4 F L 01/21/19 05:00 Pulse Rate 104 H 01/21/19 05:00 Respiratory Rate 20 01/21/19 05:00 Blood Pressure 142/98 01/21/19 05:00 O2 Sat by Pulse Oximetry (%) 89 L 01/20/19 21:26 Constitutional: Yes: Calm Eyes: No: Sclera Icterus Cardiovascular: Yes: Tachycardia, Pulse Irregular Respiratory: Yes: Rhonchi (mild crackls through lung galan bilaterally) Gastrointestinal Inspection: No: Distention, Scars ...Auscultate: Yes: Normoactive Bowel Sounds ...Palpate: Yes: Soft. No: Hepatomegaly, Splenomegaly, Tenderness ...Percussion: No: Tympanitic Edema: Yes Edema: LLE: 3+, RLE: 3+ Neurological: Yes: Alert. No: Asterixis Labs: CBC, BMP 05/16/19 06:55 01/21/19 06:55 INR, PTT INR 1.82 (0.83-1.09) H 01/20/19 12:36 Hepatic Panel Total Bilirubin 0.4 mg/dL (0.2-1) 01/21/19 06:55 AST 18 U/L (15-37) 01/21/19 06:55 ALT 23 U/L (13-61) 01/21/19 06:55 Alkaline Phosphatase 85 U/L (45-117) 01/21/19 06:55 Albumin 3.4 g/dl (3.4-5.0) 01/21/19 06:55 Laboratory Tests 03/20/16 11:30 Hepatitis A Ab Total Negative Hep Bs Antigen Negative Hep Bs Antibody Non reactive Hep B Core Total Ab Negative Hepatitis C Antibody <0.1 Imaging - Results Ultrasound: Report Reviewed (dilated pancreatic duct at head of pancreas, fatty liver, gallstone, 1 x 2 cm gallstone) Problem List - Problems (1) Gallstones Assessment/Plan: Unclear why abdominal US performed. No clinical evidence of acute cholecuystitis and I question if the gallbladder findings reflect secondary changes associated with right heart failure. Denies abdominal pain and abdomen not distended that woul be suggestive of ascites. given her chronic thrombocytopenia, a formal abdominal US should have been performed to assess for splenomegaly. Advise: 1.Further imaging given pancreatic duct findings on US: patient refuses MRCP. Can have non contrast CT scan of abdomen as inpatient followed by open MRI as an outpatient 2.Surgical opinion regarding US findings 3.The use of full dose NOAC will need to be reevaluated by primary team in the setting of renal insufficiency screening hepatitis serologies from 2016 were unrevealing, including hepatitis B surface antibody. If not vaccinated, Should be offered hepatitis B vaccine. 4.Check repeat screening hepatitis serologies: hepatitis A antibody, hepatitis B surface antibody, hepatitis B surface antigen, hepatitis B core antibody, hepatitis C antobody 5.Hematology evaluation for evaluation of thrombocytopenia. This has been a chronic finding. Unclear if ever evaluated. When acute cardiopulmonary issues are corrected and A/C held for appropriate period of time in setting of renal insufficiency, EGD could be undertaken to exclude varices in the setting of thrombocytopenia and history of heavy etoh use in the past. Code(s): K80.20 - CALCULUS OF GALLBLADDER W/O CHOLECYSTITIS W/O OBSTRUCTION
--- NOTE | 2019-01-21 11:55 | PN ---
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 (short form) - Note 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: Noted confused overnight. No CP or SOB. Foot discomfort and constipation. Some dry cough. Intake & Output 01/18/19 01/19/19 01/20/19 01/21/19 23:59 23:59 23:59 23:59 Intake Total 2 Balance 2 Weight 200 lb Last Vital Signs Temp Pulse Resp BP Pulse Ox 98 F 110 H 20 136/78 89 L 01/21/19 09:00 01/21/19 09:00 01/21/19 09:00 01/21/19 09:00 01/20/19 21:26 Active Medications Acetaminophen (Tylenol -) 325 mg PO Q8H PRN PRN Reason: PAIN SCALE 6-10 Albuterol Sulfate (Ventolin 0.083% Nebulizer Soln -) 1 amp NEB Q4H PRN PRN Reason: SHORT OF BREATH/WHEEZING Albuterol/Ipratropium (Duoneb -) 1 amp NEB RQID [facility] Last Admin: 01/21/19 09:00 Dose: 1 amp Apixaban (Eliquis -) 5 mg PO BID [facility] Last Admin: 01/21/19 09:00 Dose: 5 mg Atenolol (Tenormin -) 100 mg PO BID [facility] Budesonide/Formoterol Fumarate (Symbicort 80/4.5mcg -) 2 puff IH BID [facility] Last Admin: 01/21/19 00:51 Dose: Not Given Diltiazem HCl (Cardizem Cd -) 480 mg PO DAILY [facility] Last Admin: 01/21/19 09:00 Dose: 480 mg Docusate Sodium (Colace -) 100 mg PO BID [facility] Furosemide (Lasix Injection -) 40 mg IVPUSH DAILY [facility] Last Admin: 01/21/19 09:00 Dose: 40 mg Gabapentin (Neurontin -) 300 mg PO TID [facility] Last Admin: 01/21/19 06:23 Dose: 300 mg Insulin Aspart (Novolog Vial Sliding Scale -) 1 vial SQ ACHS [facility]; Protocol Last Admin: 01/21/19 06:12 Dose: Not Given Methylprednisolone Sodium Succinate (Solu-Medrol -) 40 mg IVPUSH Q6H-IV [facility] Last Admin: 01/21/19 09:00 Dose: 40 mg Oxycodone HCl (Roxicodone -) 5 mg PO Q8H PRN PRN Reason: PAIN SCALE 6-10 Last Admin: 01/21/19 00:00 Dose: 5 mg Constitutional: Yes: NAD Eyes: No: Sclera Icterus Cardiovascular: Yes: Pulse Irregular Respiratory: Yes: Bilateral Rhonchi, no wheeze Gastrointestinal Inspection: (+) BS, NT, ND Edema: Yes Edema: LLE: 3+, RLE: 3+ Neurological: Yes: Alert. No: Asterixis Labs: Laboratory Results - last 24 hr 01/20/19 01/20/19 01/20/19 12:18 12:36 12:36 WBC 5.7 RBC 4.30 Hgb 12.4 Hct 39.8 MCV 92.5 MCH 28.9 MCHC 31.3 L RDW 16.2 H Plt Count 110 L D MPV 11.5 H Absolute Neuts (auto) 2.6 Neutrophils % 45.7 Lymphocytes % 34.6 Monocytes % 15.4 H Eosinophils % 3.6 Basophils % 0.7 Nucleated RBC % 0 PT with INR 21.60 H INR 1.82 H PTT (Actin FS) 44.8 H Anticoagulation Therapy Puncture Site ABG pH ABG pCO2 at Pt Temp ABG pO2 at Pt Temp ABG HCO3 ABG O2 Sat (Measured) ABG O2 Content ABG Base Excess Randy Test VBG pH POC VBG pCO2 POC VBG pO2 VBG HCO3 VBG O2 Sat (Manpreet) VBG Base Excess O2 Delivery Device Oxygen Flow Rate Vent Mode Vent Rate Mechanical Rate PEEP Pressure Support Vent Sodium 135 L Potassium 4.0 Chloride 95 L Carbon Dioxide 32 Anion Gap 8 BUN 35 H Creatinine 2.9 H Est GFR (CKD-EPI)AfAm 19.57 Est GFR (CKD-EPI)NonAf 16.89 POC Glucometer Random Glucose 113 H Hemoglobin A1c % Calcium 8.7 Phosphorus Magnesium Total Bilirubin 0.4 AST 17 ALT 19 Alkaline Phosphatase 94 Ammonia Creatine Kinase Troponin I B-Natriuretic Peptide 4547.5 H Total Protein 7.2 Albumin 3.7 Triglycerides Cholesterol Total LDL Cholesterol HDL Cholesterol TSH 01/20/19 01/20/19 01/20/19 12:36 12:36 12:39 WBC RBC Hgb Hct MCV MCH MCHC RDW Plt Count MPV Absolute Neuts (auto) Neutrophils % Lymphocytes % Monocytes % Eosinophils % Basophils % Nucleated RBC % PT with INR Cancelled INR Cancelled PTT (Actin FS) Anticoagulation Therapy Puncture Site ABG pH ABG pCO2 at Pt Temp ABG pO2 at Pt Temp ABG HCO3 ABG O2 Sat (Measured) ABG O2 Content ABG Base Excess Randy Test VBG pH 7.28 L POC VBG pCO2 73.3 H* POC VBG pO2 31.1 VBG HCO3 33.5 H VBG O2 Sat (Manpreet) 50.6 L VBG Base Excess 4.9 H O2 Delivery Device Oxygen Flow Rate Vent Mode Vent Rate Mechanical Rate PEEP Pressure Support Vent Sodium Potassium Chloride Carbon Dioxide Anion Gap BUN Creatinine Est GFR (CKD-EPI)AfAm Est GFR (CKD-EPI)NonAf POC Glucometer Random Glucose Hemoglobin A1c % Calcium Phosphorus Magnesium Total Bilirubin AST ALT Alkaline Phosphatase Ammonia 40.00 H Creatine Kinase Troponin I B-Natriuretic Peptide Total Protein Albumin Triglycerides Cholesterol Total LDL Cholesterol HDL Cholesterol TSH 01/20/19 01/20/19 01/21/19 15:26 21:07 06:04 WBC RBC Hgb Hct MCV MCH MCHC RDW Plt Count MPV Absolute Neuts (auto) Neutrophils % Lymphocytes % Monocytes % Eosinophils % Basophils % Nucleated RBC % PT with INR INR PTT (Actin FS) Anticoagulation Therapy No Result Required. Puncture Site Right radial ABG pH 7.32 L ABG pCO2 at Pt Temp 63.1 H ABG pO2 at Pt Temp 150 H ABG HCO3 31.4 H ABG O2 Sat (Measured) 99.2 H ABG O2 Content 16.7 ABG Base Excess 4.1 H Randy Test Positive VBG pH POC VBG pCO2 POC VBG pO2 VBG HCO3 VBG O2 Sat (Manpreet) VBG Base Excess O2 Delivery Device No Result Required. Oxygen Flow Rate 40 Vent Mode S/t Vent Rate 16 Mechanical Rate No Result Required. PEEP 6.0 Pressure Support Vent 12/6 Sodium Potassium Chloride Carbon Dioxide Anion Gap BUN Creatinine Est GFR (CKD-EPI)AfAm Est GFR (CKD-EPI)NonAf POC Glucometer 188 199 Random Glucose Hemoglobin A1c % Calcium Phosphorus Magnesium Total Bilirubin AST ALT Alkaline Phosphatase Ammonia Creatine Kinase Troponin I B-Natriuretic Peptide Total Protein Albumin Triglycerides Cholesterol Total LDL Cholesterol HDL Cholesterol TSH 01/21/19 01/21/19 01/21/19 06:55 06:55 06:55 WBC 3.5 L RBC 4.42 Hgb 12.8 Hct 40.4 MCV 91.5 MCH 29.1 MCHC 31.8 L RDW 16.2 H Plt Count 111 L MPV 10.9 Absolute Neuts (auto) 2.9 Neutrophils % 82.4 D Lymphocytes % 16.0 D Monocytes % 1.2 L D Eosinophils % 0.0 D Basophils % 0.4 Nucleated RBC % 0 PT with INR INR PTT (Actin FS) Anticoagulation Therapy Puncture Site ABG pH ABG pCO2 at Pt Temp ABG pO2 at Pt Temp ABG HCO3 ABG O2 Sat (Measured) ABG O2 Content ABG Base Excess Randy Test VBG pH POC VBG pCO2 POC VBG pO2 VBG HCO3 VBG O2 Sat (Manpreet) VBG Base Excess O2 Delivery Device Oxygen Flow Rate Vent Mode Vent Rate Mechanical Rate PEEP Pressure Support Vent Sodium 141 Potassium 3.8 Chloride 102 Carbon Dioxide 32 Anion Gap 8 BUN 36 H Creatinine 2.3 H Est GFR (CKD-EPI)AfAm 25.91 Est GFR (CKD-EPI)NonAf 22.35 POC Glucometer Random Glucose 201 H Hemoglobin A1c % 6.4 H Calcium 8.8 Phosphorus 3.7 Magnesium 2.7 H Total Bilirubin 0.4 AST 18 ALT 23 Alkaline Phosphatase 85 Ammonia Creatine Kinase 53 Troponin I < 0.02 B-Natriuretic Peptide 5133.7 H Total Protein 7.0 Albumin 3.4 Triglycerides 43 Cholesterol 140 Total LDL Cholesterol 76 HDL Cholesterol 56 TSH 0.18 L IMP ACUTE ON CHRONIC HYPERCAPNEIC RESPIRATORY FAILURE LIKELY COPD EXACERBATION DIASTOLIC HF LOWER EXTREMITY EDEMA AFIB LIKELY TANISHA OBESITY ACUTE ON CHRONIC KIDNEY INJURY THROMBOCYTOPENIA SMOKER PLAN INHALE BRONCHODILATORS O2 NIPPV NEEDED F/U ABGS SHORT COURSE OF MEDROL MONITOR LYTES,RENAL FUNCTION DAILY WT SMOKING CESSATION PFTS OUTPATIENT SLEEP STUDIES OUTPATIENT DR PRICE
[2019-01-21] MEDS ORDERED: BISACODYL 10 MG SUPP.RECT RC ONE (12:31)
--- NOTE | 2019-01-21 12:42 | PN ---
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, Physician Chief Complaint: patient seen and examined complaining of leg edema and constipation - Current Medication List Current Medications: Active Medications Acetaminophen (Tylenol -) 325 mg PO Q8H PRN PRN Reason: PAIN SCALE 6-10 Albuterol Sulfate (Ventolin 0.083% Nebulizer Soln -) 1 amp NEB Q4H PRN PRN Reason: SHORT OF BREATH/WHEEZING Albuterol/Ipratropium (Duoneb -) 1 amp NEB RQID [facility] Last Admin: 01/21/19 09:00 Dose: 1 amp Apixaban (Eliquis -) 5 mg PO BID [facility] Last Admin: 01/21/19 09:00 Dose: 5 mg Atenolol (Tenormin -) 100 mg PO BID [facility] Bisacodyl (Dulcolax Suppository -) 10 mg [place] ONCE ONE Stop: 01/21/19 12:32 Budesonide/Formoterol Fumarate (Symbicort 80/4.5mcg -) 2 puff IH BID [facility] Last Admin: 01/21/19 00:51 Dose: Not Given Diltiazem HCl (Cardizem Cd -) 480 mg PO DAILY [facility] Last Admin: 01/21/19 09:00 Dose: 480 mg Docusate Sodium (Colace -) 100 mg PO BID [facility] Furosemide (Lasix Injection -) 40 mg IVPUSH DAILY [facility] Last Admin: 01/21/19 09:00 Dose: 40 mg Gabapentin (Neurontin -) 300 mg PO TID [facility] Last Admin: 01/21/19 06:23 Dose: 300 mg Insulin Aspart (Novolog Vial Sliding Scale -) 1 vial SQ ACHS [facility]; Protocol Last Admin: 01/21/19 12:20 Dose: Not Given Methylprednisolone Sodium Succinate (Solu-Medrol -) 40 mg IVPUSH Q6H-IV [facility] Last Admin: 01/21/19 09:00 Dose: 40 mg Oxycodone HCl (Roxicodone -) 5 mg PO Q8H PRN PRN Reason: PAIN SCALE 6-10 Last Admin: 01/21/19 00:00 Dose: 5 mg - Objective Vital Signs: Vital Signs Temperature 98 F 01/21/19 09:00 Pulse Rate 110 H 01/21/19 09:00 Respiratory Rate 20 01/21/19 09:00 Blood Pressure 136/78 01/21/19 09:00 O2 Sat by Pulse Oximetry (%) 89 L 01/20/19 21:26 Constitutional: Yes: Mild Distress Cardiovascular: Yes: Regular Rate and Rhythm, S1, S2 Respiratory: Yes: Diminished Gastrointestinal: Yes: Normal Bowel Sounds, Soft Edema: Yes Edema: LLE: 3+, RLE: 3+ Neurological: Yes: Alert, Oriented Labs: CBC, BMP 01/21/19 06:55 01/21/19 06:55 INR, PTT INR 1.82 (0.83-1.09) H 01/20/19 12:36 Problem List - Problems (1) JOSEPH (acute kidney injury) Assessment/Plan: renal function trending down 2.6-2.3 iv lasix renal consult Code(s): N17.9 - ACUTE KIDNEY FAILURE, UNSPECIFIED (2) Gallstones Assessment/Plan: ct scan abdomen no contrast cannot get MRCP wants opem MRI can be done outpatient GI consult noted surgical eval for ultrasound findings Code(s): K80.20 - CALCULUS OF GALLBLADDER W/O CHOLECYSTITIS W/O OBSTRUCTION (3) Leg swelling Assessment/Plan: iv alsix Code(s): M79.89 - OTHER SPECIFIED SOFT TISSUE DISORDERS (4) Acute on chronic diastolic (congestive) heart failure Assessment/Plan: iv lasix Code(s): I50.33 - ACUTE ON CHRONIC DIASTOLIC (CONGESTIVE) HEART FAILURE (5) Afib Assessment/Plan: elihallie atenolol 100mg bid cardizem dose decreased to 240mg monitor HR Code(s): I48.91 - UNSPECIFIED ATRIAL FIBRILLATION Qualifiers: Atrial fibrillation type: unspecified Qualified Code(s): I48.91 - Unspecified atrial fibrillation (6) Constipation Assessment/Plan: suppository mirlaax Code(s): K59.00 - CONSTIPATION, UNSPECIFIED
--- NOTE | 2019-01-21 14:28 | EKG ---
Test Reason : Blood Pressure : / mmHG Vent. Rate : 086 BPM Atrial Rate : 119 BPM P-R Int : 000 ms QRS Dur : 108 ms QT Int : 418 ms P-R-T Axes : 000 -48 125 degrees QTc Int : 500 ms ATRIAL FIBRILLATION INCOMPLETE RIGHT BUNDLE BRANCH BLOCK LEFT ANTERIOR FASCICULAR BLOCK VOLTAGE CRITERIA FOR LEFT VENTRICULAR HYPERTROPHY PROLONGED QT ABNORMAL ECG WHEN COMPARED WITH ECG OF 08-JAN-2019 20:53, ATRIAL FIBRILLATION HAS REPLACED JUNCTIONAL RHYTHM ST NO LONGER ELEVATED IN INFERIOR LEADS ST NO LONGER DEPRESSED IN LATERAL LEADS T WAVE INVERSION LESS EVIDENT IN LATERAL LEADS Confirmed by LETY ESTEBAN MD ([id number]) on 01/21/2019 2:28:07 PM Referred By: Confirmed By:LETY ESTEBAN MD
[2019-01-21] MEDS: ACETAMINOPHEN 325 MG TABLET (FP) PO PRN (14:48)
[2019-01-21] MEDS: oxyCODONE HCL 5 MG TABLET PO PRN ×3 (14:49→21:34)
--- NOTE | 2019-01-21 16:02 | CONSULT ---
Consult Consult Specialty:: Nephrology Reason for Consultation:: JOSEPH - History of Present Illness Chief Complaint: edema History of Present Illness: Pt is a 58 year old female with pmhx of HTN, a-fib, CKD, and DM who presents to the ER with lower ext edema. She did get shortness of breath with ambulation. She was found to have elevated creatinine. SHe is known to me from previous admissions. She denies hematuria or dysuria. She says that she was taking her lasix at home. She denies chest pain or palpitations. She denies nsaid use. - History Source History Provided By: Patient, Medical Record - Past Medical History [employer]: Yes: Other (Sciatica) Cardio/Vascular: Yes: AFIB, CHF, HTN Pulmonary: Yes: COPD Renal/: Yes: Renal Inusuff (CKD) Musculoskeletal: Yes: Osteoarthritis Endocrine: Yes: Diabetes Mellitus - Past Surgical History Additional Surgical History: Denies - Alcohol/Substance Use Hx Alcohol Use: Yes (ex heavy ETOH abuse, quit 10 years ago) History of Substance Use: reports: None - Smoking History Smoking history: Unknown if ever smoked Have you smoked in the past 12 months: Yes Aproximately how many cigarettes per day: 4 - Social History Usual Living Arrangement: With Spouse (and two grand children) ADL: Independent History of Recent Travel: No Home Medications - Allergies Allergies/Adverse Reactions: Allergies Allergy/AdvReac Type Severity Reaction Status Date / Time morphine Allergy Severe Verified 01/09/19 06:22 Penicillins Allergy Severe Hives Verified 01/09/19 06:22 tomato [Tomato] Allergy Unknown Verified 01/09/19 06:22 chocolate AdvReac Unknown Uncoded 01/09/19 06:22 - Home Medications Home Medications: Ambulatory Orders Apixaban [Eliquis] 5 mg PO BID 03/28/18 Lidocaine 5% Patch [Lidoderm -] 1 patch TP DAILY #7 patch 05/04/18 Albuterol Sulfate Inhaler - [Ventolin HFA Inhaler -] 1 inh IH QID PRN 05/21/18 Apixaban [Eliquis -] 5 mg PO BID #30 tablet MDD 2 12/28/18 Budesonide/Formeterol Fumarate [SYMBICORT 80/4.5mcg -] 2 puff IH BID #1 inhaler 12/28/18 Bupropion HCl [Wellbutrin Xl -] 150 mg PO DAILY tab.sr.24h 12/28/18 Atenolol [Tenormin -] 100 mg PO BID #60 tablet MDD 2 01/15/19 Clindamycin [Cleocin -] 150 mg PO TID #14 capsule MDD 3 01/15/19 Diltiazem Cd [Cardizem Cd -] 480 mg PO DAILY #60 cap.cd.24h MDD 2 01/15/19 Furosemide [Lasix -] 40 mg PO BID@0600,1400 #30 tablet MDD 2 01/15/19 Gabapentin [Neurontin -] 300 mg PO TID capsule 01/15/19 Family Disease History - Family Disease History Family Disease History: Other: Father (: Fell down stairs), Mother (: 80 : CHF), Brother (2, 1 unclear causes), Sister (4 sis: 1 : [place], 1 unclear cause), Son (3), Daughter (3) Other Family History: 2 children as infants Review of Systems - Review of Systems Constitutional: reports: Malaise. denies: Chills Eyes: reports: No Symptoms HENT: reports: No Symptoms Neck: reports: No Symptoms Cardiovascular: reports: Edema Respiratory: reports: SOB on Exertion Genitourinary: reports: No Symptoms Musculoskeletal: reports: No Symptoms Integumentary: reports: No Symptoms Neurological: reports: No Symptoms Endocrine: reports: No Symptoms Hematology/Lymphatic: reports: No Symptoms Physical Exam Vital Signs: Vital Signs Temperature 98 F 01/21/19 09:00 Pulse Rate 110 H 01/21/19 09:00 Respiratory Rate 20 01/21/19 09:00 Blood Pressure 136/78 01/21/19 09:00 O2 Sat by Pulse Oximetry (%) 95 01/21/19 09:00 Constitutional: Yes: Calm Eyes: Yes: Conjunctiva Clear HENT: Yes: Atraumatic Cardiovascular: Yes: S1, S2 Respiratory: Yes: On Nasal O2, Rhonchi Gastrointestinal: Yes: Soft Renal/: Yes: WNL Edema: Yes Edema: LLE: 2+, RLE: 2+ Neurological: Yes: Oriented Psychiatric: Yes: Oriented Labs: CBC, BMP 01/21/19 06:55 01/21/19 06:55 Laboratory Tests 05/07/19 05/08/19 05/09/19 09:53 08:03 05:30 WBC Sodium Potassium Chloride BUN Creatinine 1.5 H 1.7 H 1.6 H B-Natriuretic Peptide 01/20/19 01/21/19 01/21/19 12:18 06:55 06:55 WBC 3.5 L Sodium 141 Potassium 3.8 Chloride 102 BUN 36 H Creatinine 2.9 H 2.3 H B-Natriuretic Peptide 5133.7 H Imaging - Results Chest X-ray: Report Reviewed Problem List - Problems (1) JOSEPH (acute kidney injury) Code(s): N17.9 - ACUTE KIDNEY FAILURE, UNSPECIFIED Assessment/Plan Current Medications Generic Name Dose Route Start Last Admin Trade Name Freq PRN Reason Stop Dose Admin Acetaminophen 325 mg 01/20/19 18:21 01/21/19 14:48 Tylenol - PO 325 mg Q8H PRN Administration PAIN SCALE 6-10 Albuterol Sulfate 1 amp 01/20/19 14:37 Ventolin 0.083% Nebulizer Soln - NEB Q4H PRN SHORT OF BREATH/WHEEZING Albuterol/Ipratropium 1 amp 01/20/19 16:00 01/21/19 09:00 Duoneb - NEB 1 amp RQID [facility] Administration Apixaban 5 mg 01/20/19 22:00 01/21/19 09:00 Eliquis - PO 5 mg BID [facility] Administration Atenolol 100 mg 01/20/19 22:00 Tenormin - PO BID [facility] Budesonide/Formoterol Fumarate 2 puff 01/20/19 22:00 01/21/19 15:57 Symbicort 80/4.5mcg - IH Not Given BID [facility] Diltiazem HCl 240 mg 01/22/19 10:00 Cardizem Cd - PO DAILY [facility] Docusate Sodium 100 mg 01/21/19 22:00 Colace - PO BID [facility] Furosemide 40 mg 01/21/19 10:00 01/21/19 09:00 Lasix Injection - IVPUSH 40 mg DAILY [facility] Administration Gabapentin 300 mg 01/20/19 22:00 01/21/19 14:35 Neurontin - PO 300 mg TID [facility] Administration Insulin Aspart 1 vial 01/20/19 22:00 01/21/19 12:20 Novolog Vial Sliding Scale - SQ Not Given ACHS [facility] Protocol Methylprednisolone Sodium Succinate 40 mg 01/20/19 15:30 01/21/19 14:35 Solu-Medrol - IVPUSH 40 mg Q6H-IV [facility] Administration Oxycodone HCl 5 mg 01/20/19 18:20 01/21/19 14:49 Roxicodone - PO 5 mg Q8H PRN Administration PAIN SCALE 6-10 Polyethylene Glycol 17 gm 01/22/19 10:00 Miralax (For Daily Use) - PO DAILY [facility] Impression 1. CKD 2. CHF 3. a-fib 4. lower ext edema 5. COPD 6. active smoker Plan - cont lasix - renal function improving - check ultrasoudn - send ua - check prt to credit report checker ratio - poor outpt follow up - monitor volume status
[2019-01-21] MEDS: ATENOLOL 50 MG TABLET (FP) PO SCH (16:58)
[2019-01-21] MEDS: DOCUSATE SODIUM 100 MG CAPSULE (FP) PO SCH (21:31)
[2019-01-22] MEDS: methylPREDNISolone NA SUCC 40 MG/1 ML VIAL IVPUSH SCH ×4 (03:15→22:07)
[2019-01-22] MEDS: GABAPENTIN 300 MG CAPSULE (FP) PO SCH ×3 (06:05→22:08)
[2019-01-22] MEDS: INSULIN SLIDING SCALE (NOVOLOG) 1 VIAL SQ SCH ×4 (06:05→22:08)
[2019-01-22] MEDS: oxyCODONE HCL 5 MG TABLET PO PRN ×3 (06:05→22:07)
[2019-01-22 06:45] LABS: HEMATOCRIT 38.7 % (32.4-45.2); HEMOGLOBIN 12.4 GM/dL (10.7-15.3); MCH 29.2 pg (25.7-33.7); MCHC 32.1 g/dl (32.0-36.0); MEAN CELL VOLUME 91.2 fl (80-96); MEAN PLT VOLUME 11.1 fl (7.5-11.1); PLATELET COUNT 109 K/MM3 (134-434); RBC 4.25 M/mm3 (3.60-5.2); RDW 16.1 % (11.6-15.6); WHITE BLOOD COUNT 11.4 K/mm3 (4.0-10.0)
[2019-01-22 07:01] LABS: ALBUMIN 3.5 g/dl (3.4-5.0); BILIRUBIN,TOTAL 0.7 mg/dL (0.2-1); CALCIUM 8.9 mg/dL (8.5-10.1); CREATININE 1.9 mg/dL (0.55-1.3); POTASSIUM 3.9 mmol/L (3.5-5.1); TOT PROT 6.9 g/dl (6.4-8.2)
[2019-01-22] MEDS: ALBUTEROL SO4 2.5/IPRATROPIUM 0.5 INH SOL 3 ML VIAL.NEB. NEB SCH ×4 (07:30→20:40)
[2019-01-22 07:57] LABS: PH,URINE 5.5 (5.0-8.0); URINE APPEARANCE CLEAR; URINE BILIRUBIN NEGATIVE (NEGATIVE); URINE COLOR YELLOW; URINE GLUCOSE (UA) NEGATIVE (NEGATIVE); URINE KETONE NEGATIVE (NEGATIVE); URINE LEUK ESTERASE NEGATIVE (NEGATIVE); URINE NITRITE NEGATIVE (NEGATIVE); URINE PROTEIN NEGATIVE (NEGATIVE); URINE UROBILINOGEN 0.2 mg/dL (0.2-1.0)
[2019-01-22 08:08] LABS: RATIO URIN PROTEIN/URIN CREAT 0.14 MG/DL
[2019-01-22] MEDS: ATENOLOL 50 MG TABLET (FP) PO SCH (10:15)
[2019-01-22] MEDS: FUROSEMIDE 40 MG/4 ML INJECTABLE VIAL IVPUSH SCH (10:15)
[2019-01-22] MEDS: APIXABAN 5 MG TABLET PO SCH ×2 (10:15→22:08)
[2019-01-22] MEDS: BUDESONIDE/FORMETEROL FUMARATE 80/4.5 mcg INHALER IH SCH ×2 (10:16→22:08)
[2019-01-22] MEDS: DOCUSATE SODIUM 100 MG CAPSULE (FP) PO SCH ×2 (10:16→22:08)
[2019-01-22] MEDS: POLYETHYLENE GLYCOL 3350 119 GM BTL PO SCH (10:17)
--- NOTE | 2019-01-22 10:54 | PN.GI ---
GI 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 Subjective: Concerned about the adjustment of her heart medications No abdominal pain + constipation - Objective Vital Signs: Vital Signs Temperature 97.8 F 01/22/19 05:00 Pulse Rate 114 H 01/22/19 05:00 Respiratory Rate 20 01/22/19 05:00 Blood Pressure 147/85 01/22/19 05:00 O2 Sat by Pulse Oximetry (%) 94 L 01/21/19 21:00 Constitutional: Calm Eyes: No: Sclera Icterus Cardiovascular: Yes: Tachycardia, Pulse Irregular Respiratory: Yes: Rhonchi (Mild Rhonchi bilaterally) Gastrointestinal Inspection: No: Distention ...Auscultate: Yes: Normoactive Bowel Sounds ...Palpate: Yes: Soft. No: Tenderness ...Percussion: No: Tympanitic Edema: LLE: 2+, RLE: 2+ Neurological: Yes: Alert Labs: CBC, BMP 01/22/19 05:30 INR, PTT INR 1.82 (0.83-1.09) H 01/20/19 12:36 Hepatic Panel Total Bilirubin 0.7 mg/dL (0.2-1) 01/22/19 05:30 AST 20 U/L (15-37) 01/22/19 05:30 ALT 26 U/L (13-61) 01/22/19 05:30 Alkaline Phosphatase 80 U/L (45-117) 01/22/19 05:30 Albumin 3.5 g/dl (3.4-5.0) 01/22/19 05:30 Problem List - Problems (1) Gallstones Assessment/Plan: No clinical evidence of acute cholecystitis and I question if the gallbladder findings reflect secondary changes associated with right heart failure. Denies abdominal pain and abdomen not distended that woul be suggestive of ascites. Advise: 1. Given her chronic thrombocytopenia, a formal abdominal US should have been performed to assess for splenomegaly. 2.Further imaging given pancreatic duct findings on US: patient refuses MRCP. Can have non contrast CT scan of abdomen as inpatient followed by open MRI as an outpatient 3.Surgical opinion regarding US findings 4.Clarification of the use of full dose NOAC will need to be reevaluated by primary team in the setting of renal insufficiency. screening hepatitis serologies from 2016 were unrevealing, including hepatitis B surface antibody. If not vaccinated, Should be offered hepatitis B vaccine. 5.Check repeat screening hepatitis serologies: hepatitis A antibody, hepatitis B surface antibody, hepatitis B surface antigen, hepatitis B core antibody, hepatitis C antobody 6.Hematology evaluation for evaluation of thrombocytopenia. This has been a chronic finding. Unclear if ever evaluated. When acute cardiopulmonary issues are corrected and A/C held for appropriate period of time in setting of renal insufficiency, EGD could be undertaken to exclude varices in the setting of thrombocytopenia and history of heavy etoh use in the past. Code(s): K80.20 - CALCULUS OF GALLBLADDER W/O CHOLECYSTITIS W/O OBSTRUCTION
[2019-01-22 11:06] LABS: ANISOCYTOSIS 0; MACROCYTOSIS 0; PLATELET ESTIMATE DECREASED
[2019-01-22] MEDS: MINERAL OIL ENEMA 133 ML ENEMA PR SCH (12:23)
[2019-01-22] MEDS: METOPROLOL TARTRATE 5 MG/5 ML VIAL IVPUSH PRN ×2 (12:45→18:44)
[2019-01-22] MEDS ORDERED: METOPROLOL TARTRATE 5 MG/5 ML VIAL ONE (12:47)
--- NOTE | 2019-01-22 13:03 | PN ---
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, Physician Chief Complaint: patient seen and examiend tachycardia iv lopressor given tenormin dose 100mg bid was not approved bc of renal function - Current Medication List Current Medications: Active Medications Acetaminophen (Tylenol -) 325 mg PO Q8H PRN PRN Reason: PAIN SCALE 6-10 Last Admin: 01/21/19 14:48 Dose: 325 mg Albuterol Sulfate (Ventolin 0.083% Nebulizer Soln -) 1 amp NEB Q4H PRN PRN Reason: SHORT OF BREATH/WHEEZING Albuterol/Ipratropium (Duoneb -) 1 amp NEB RQID [facility] Last Admin: 01/22/19 11:24 Dose: 1 amp Apixaban (Eliquis -) 5 mg PO BID [facility] Last Admin: 01/22/19 10:15 Dose: 5 mg Atenolol (Tenormin -) 50 mg PO DAILY [facility] Last Admin: 01/22/19 10:15 Dose: 50 mg Budesonide/Formoterol Fumarate (Symbicort 80/4.5mcg -) 2 puff IH BID [facility] Last Admin: 01/22/19 10:16 Dose: 2 puff Bupropion HCl (Wellbutrin Xl -) 150 mg PO DAILY [facility] Last Admin: 01/22/19 10:15 Dose: 150 mg Diltiazem HCl (Cardizem Cd -) 240 mg PO DAILY [facility] Last Admin: 01/22/19 10:16 Dose: 240 mg Docusate Sodium (Colace -) 100 mg PO BID [facility] Last Admin: 01/22/19 10:16 Dose: 100 mg Furosemide (Lasix Injection -) 40 mg IVPUSH DAILY [facility] Last Admin: 01/22/19 10:15 Dose: 40 mg Gabapentin (Neurontin -) 300 mg PO TID [facility] Last Admin: 01/22/19 06:05 Dose: 300 mg Insulin Aspart (Novolog Vial Sliding Scale -) 1 vial SQ ACHS [facility]; Protocol Last Admin: 01/22/19 12:24 Dose: Not Given Methylprednisolone Sodium Succinate (Solu-Medrol -) 40 mg IVPUSH Q6H-IV [facility] Last Admin: 01/22/19 10:15 Dose: 40 mg Metoprolol Tartrate (Lopressor Injection -) 5 mg IVPUSH Q4H PRN PRN Reason: HYPERTENSION Mineral Oil (Fleet Mineral Oil Rectal Enema -) 133 ml SD DAILY [facility] Stop: 01/25/19 11:14 Last Admin: 01/22/19 12:23 Dose: Not Given Oxycodone HCl (Roxicodone -) 5 mg PO Q6H PRN PRN Reason: PAIN SCALE 6-10 Last Admin: 01/22/19 12:24 Dose: 5 mg Polyethylene Glycol (Miralax (For Daily Use) -) 17 gm PO DAILY [facility] Last Admin: 01/22/19 10:17 Dose: 17 gm - Objective Vital Signs: Vital Signs Temperature 97.8 F 01/22/19 09:00 Pulse Rate 110 H 01/22/19 09:00 Respiratory Rate 20 01/22/19 09:00 Blood Pressure 129/76 01/22/19 09:00 O2 Sat by Pulse Oximetry (%) 93 L 01/22/19 09:00 Constitutional: Yes: Calm Cardiovascular: Yes: Tachycardia, S1, S2 Respiratory: Yes: CTA Bilaterally Gastrointestinal: Yes: Normal Bowel Sounds, Soft Edema: Yes Edema: LLE: 2+, RLE: 2+ Neurological: Yes: Alert, Oriented Labs: CBC, BMP 01/22/19 05:30 01/22/19 05:30 INR, PTT INR 1.82 (0.83-1.09) H 01/20/19 12:36 Problem List - Problems (1) JOSEPH (acute kidney injury) Assessment/Plan: renal function trending down 2.6-2.3 renal sono no hydronephrosis po lasix Code(s): N17.9 - ACUTE KIDNEY FAILURE, UNSPECIFIED (2) Gallstones Assessment/Plan: ct scan abdomen no contrast cannot get MRCP wants opem MRI can be done outpatient GI consult noted surgical eval for ultrasound findings Code(s): K80.20 - CALCULUS OF GALLBLADDER W/O CHOLECYSTITIS W/O OBSTRUCTION (3) Leg swelling Assessment/Plan: lasix no dvt in LE Code(s): M79.89 - OTHER SPECIFIED SOFT TISSUE DISORDERS (4) Acute on chronic diastolic (congestive) heart failure Assessment/Plan: iv lasix Code(s): I50.33 - ACUTE ON CHRONIC DIASTOLIC (CONGESTIVE) HEART FAILURE (5) Afib Assessment/Plan: eliqiuis atenolol 100mg daily cardizem dose decreased to 240mg monitor HR Code(s): I48.91 - UNSPECIFIED ATRIAL FIBRILLATION Qualifiers: Atrial fibrillation type: unspecified Qualified Code(s): I48.91 - Unspecified atrial fibrillation (6) Constipation Assessment/Plan: suppository mirlaax enema GI eval noted Code(s): K59.00 - CONSTIPATION, UNSPECIFIED
[2019-01-22] MEDS ORDERED: ATENOLOL 50 MG TABLET (FP) PO ONE (13:15)
--- NOTE | 2019-01-22 14:02 | PN ---
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, Physician History of Present Illness: Pt seen and examined at bedside. She is awake and alert. She feels that her lower ext edema is improving. - Current Medication List Current Medications: Active Medications Acetaminophen (Tylenol -) 325 mg PO Q8H PRN PRN Reason: PAIN SCALE 6-10 Last Admin: 01/21/19 14:48 Dose: 325 mg Albuterol Sulfate (Ventolin 0.083% Nebulizer Soln -) 1 amp NEB Q4H PRN PRN Reason: SHORT OF BREATH/WHEEZING Albuterol/Ipratropium (Duoneb -) 1 amp NEB RQID [facility] Last Admin: 01/22/19 11:24 Dose: 1 amp Apixaban (Eliquis -) 5 mg PO BID [facility] Last Admin: 01/22/19 10:15 Dose: 5 mg Atenolol (Tenormin -) 100 mg PO DAILY [facility] Budesonide/Formoterol Fumarate (Symbicort 80/4.5mcg -) 2 puff IH BID [facility] Last Admin: 01/22/19 10:16 Dose: 2 puff Bupropion HCl (Wellbutrin Xl -) 150 mg PO DAILY [facility] Last Admin: 01/22/19 10:15 Dose: 150 mg Diltiazem HCl (Cardizem Cd -) 240 mg PO DAILY [facility] Last Admin: 01/22/19 10:16 Dose: 240 mg Docusate Sodium (Colace -) 100 mg PO BID [facility] Last Admin: 01/22/19 10:16 Dose: 100 mg Furosemide (Lasix Injection -) 40 mg IVPUSH DAILY [facility] Last Admin: 01/22/19 10:15 Dose: 40 mg Gabapentin (Neurontin -) 300 mg PO TID [facility] Last Admin: 01/22/19 13:22 Dose: 300 mg Insulin Aspart (Novolog Vial Sliding Scale -) 1 vial SQ ACHS [facility]; Protocol Last Admin: 01/22/19 12:24 Dose: Not Given Methylprednisolone Sodium Succinate (Solu-Medrol -) 40 mg IVPUSH Q6H-IV [facility] Last Admin: 01/22/19 10:15 Dose: 40 mg Metoprolol Tartrate (Lopressor Injection -) 5 mg IVPUSH Q4H PRN PRN Reason: HYPERTENSION Last Admin: 01/22/19 12:45 Dose: 5 mg Mineral Oil (Fleet Mineral Oil Rectal Enema -) 133 ml [place] DAILY [facility] Stop: 01/25/19 11:14 Last Admin: 01/22/19 12:23 Dose: Not Given Oxycodone HCl (Roxicodone -) 5 mg PO Q6H PRN PRN Reason: PAIN SCALE 6-10 Last Admin: 01/22/19 12:24 Dose: 5 mg Polyethylene Glycol (Miralax (For Daily Use) -) 17 gm PO DAILY [facility] Last Admin: 01/22/19 10:17 Dose: 17 gm - Objective Vital Signs: Vital Signs Temperature 97.8 F 01/22/19 09:00 Pulse Rate 145 H 01/22/19 12:45 Respiratory Rate 20 01/22/19 09:00 Blood Pressure 122/88 01/22/19 12:45 O2 Sat by Pulse Oximetry (%) 93 L 01/22/19 09:00 Constitutional: Yes: Calm Eyes: Yes: Conjunctiva Clear Cardiovascular: Yes: S1, S2 Respiratory: Yes: CTA Bilaterally Gastrointestinal: Yes: Soft Genitourinary: Yes: WNL Musculoskeletal: Yes: WNL Edema: Yes Edema: LLE: 2+, RLE: 2+ Neurological: Yes: Oriented Psychiatric: Yes: Oriented Labs: CBC, BMP 01/22/19 05:30 01/22/19 05:30 INR, PTT INR 1.82 (0.83-1.09) H 01/20/19 12:36 Problem List - Problems (1) JOSEPH (acute kidney injury) Code(s): N17.9 - ACUTE KIDNEY FAILURE, UNSPECIFIED Assessment/Plan Current Medications Generic Name Dose Route Start Last Admin Trade Name Freq PRN Reason Stop Dose Admin Acetaminophen 325 mg 01/20/19 18:21 01/21/19 14:48 Tylenol - PO 325 mg Q8H PRN Administration PAIN SCALE 6-10 Albuterol Sulfate 1 amp 01/20/19 14:37 Ventolin 0.083% Nebulizer Soln - NEB Q4H PRN SHORT OF BREATH/WHEEZING Albuterol/Ipratropium 1 amp 01/20/19 16:00 01/22/19 11:24 Duoneb - NEB 1 amp RQID [facility] Administration Apixaban 5 mg 01/20/19 22:00 01/22/19 10:15 Eliquis - PO 5 mg BID [facility] Administration Atenolol 100 mg 01/23/19 10:00 Tenormin - PO DAILY [facility] Budesonide/Formoterol Fumarate 2 puff 01/20/19 22:00 01/22/19 10:16 Symbicort 80/4.5mcg - IH 2 puff BID [facility] Administration Bupropion HCl 150 mg 01/21/19 16:45 01/22/19 10:15 Wellbutrin Xl - PO 150 mg DAILY [facility] Administration Diltiazem HCl 240 mg 01/22/19 10:00 01/22/19 10:16 Cardizem Cd - PO 240 mg DAILY [facility] Administration Docusate Sodium 100 mg 01/21/19 22:00 01/22/19 10:16 Colace - PO 100 mg BID [facility] Administration Furosemide 40 mg 01/21/19 10:00 01/22/19 10:15 Lasix Injection - IVPUSH 40 mg DAILY [facility] Administration Gabapentin 300 mg 01/20/19 22:00 01/22/19 13:22 Neurontin - PO 300 mg TID [facility] Administration Insulin Aspart 1 vial 01/20/19 22:00 01/22/19 12:24 Novolog Vial Sliding Scale - SQ Not Given ACHS [facility] Protocol Methylprednisolone Sodium Succinate 40 mg 01/20/19 15:30 01/22/19 10:15 Solu-Medrol - IVPUSH 40 mg Q6H-IV [facility] Administration Metoprolol Tartrate 5 mg 01/22/19 12:58 01/22/19 12:45 Lopressor Injection - IVPUSH 5 mg Q4H PRN Administration HYPERTENSION Mineral Oil 133 ml 01/22/19 11:15 01/22/19 12:23 Fleet Mineral Oil Rectal Enema - DE 01/25/19 11:14 Not Given DAILY [facility] Oxycodone HCl 5 mg 01/22/19 12:08 01/22/19 12:24 Roxicodone - PO 5 mg Q6H PRN Administration PAIN SCALE 6-10 Polyethylene Glycol 17 gm 01/22/19 10:00 01/22/19 10:17 Miralax (For Daily Use) - PO 17 gm DAILY [facility] Administration Laboratory Tests 01/21/19 01/21/19 04:00 04:00 Urine Protein Negative Urine Blood Negative Protein/Creatinin Ratio 0.140 Impression 1. CKD 2. CHF 3. a-fib 4. lower ext edema 5. COPD 6. active smoker Plan - renal function is improving - ua neg for blood or protein - renal ultrasound unremarkable - cont lasix - will need outpt workup and follow up - monitor volume status
--- NOTE | 2019-01-22 15:36 | PN ---
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, Physician Chief Complaint: Reconsult for rapid atrial fibrillation. Atenolol dose was decreased based on her renal function. Her ventricular rate becomes rapid, up to 150s. The patient has no acute distress and denies palpitation, dizziness, chest pain or SOB History of Present Illness: 58-year-old woman with a PMHx of HTN, DM, persistent atrial fibrillation on Eliquis, chronic diastolic CHF, CKD, COPD, chronic leg swelling presented to ED with 2 days of progressively worsening bilateral leg edema and pain. She was found to have elevated BUN/Creat. BNP is elevate, but lower than before. LE duplex 01/20/19 showed no DVT. CXR 01/20/19 revealed cardiomegaly without acute pulmonary process. CT head showed central atrophy and microvascular ischemic changes. Atenolol dose was decreased based on her renal function. Her ventricular rate becomes rapid, up to 150s. The patient has no acute distress and denies palpitation, dizziness, chest pain or SOB. Echocardiogram 01/12/2019: Normal LV size with asymmetric hypertrophy and normal systolic function. LVEF 55%. Normal LA and RA in size. Mild to moderate AI. Trace MR. Mild TR. No pulm HTN. - Current Medication List Current Medications: Active Medications Acetaminophen (Tylenol -) 325 mg PO Q8H PRN PRN Reason: PAIN SCALE 6-10 Last Admin: 01/21/19 14:48 Dose: 325 mg Albuterol Sulfate (Ventolin 0.083% Nebulizer Soln -) 1 amp NEB Q4H PRN PRN Reason: SHORT OF BREATH/WHEEZING Albuterol/Ipratropium (Duoneb -) 1 amp NEB RQID [facility] Last Admin: 01/22/19 11:24 Dose: 1 amp Apixaban (Eliquis -) 5 mg PO BID [facility] Last Admin: 01/22/19 10:15 Dose: 5 mg Atenolol (Tenormin -) 100 mg PO DAILY [facility] Budesonide/Formoterol Fumarate (Symbicort 80/4.5mcg -) 2 puff IH BID [facility] Last Admin: 01/22/19 10:16 Dose: 2 puff Bupropion HCl (Wellbutrin Xl -) 150 mg PO DAILY [facility] Last Admin: 01/22/19 10:15 Dose: 150 mg Diltiazem HCl (Cardizem Cd -) 240 mg PO DAILY [facility] Last Admin: 01/22/19 10:16 Dose: 240 mg Docusate Sodium (Colace -) 100 mg PO BID [facility] Last Admin: 01/22/19 10:16 Dose: 100 mg Furosemide (Lasix Injection -) 40 mg IVPUSH DAILY [facility] Last Admin: 01/22/19 10:15 Dose: 40 mg Gabapentin (Neurontin -) 300 mg PO TID [facility] Last Admin: 01/22/19 13:22 Dose: 300 mg Insulin Aspart (Novolog Vial Sliding Scale -) 1 vial SQ ACHS [facility]; Protocol Last Admin: 01/22/19 12:24 Dose: Not Given Methylprednisolone Sodium Succinate (Solu-Medrol -) 40 mg IVPUSH Q6H-IV [facility] Last Admin: 01/22/19 10:15 Dose: 40 mg Metoprolol Tartrate (Lopressor Injection -) 5 mg IVPUSH Q4H PRN PRN Reason: HYPERTENSION Last Admin: 01/22/19 12:45 Dose: 5 mg Mineral Oil (Fleet Mineral Oil Rectal Enema -) 133 ml [place] DAILY [facility] Stop: 01/25/19 11:14 Last Admin: 01/22/19 12:23 Dose: Not Given Oxycodone HCl (Roxicodone -) 5 mg PO Q6H PRN PRN Reason: PAIN SCALE 6-10 Last Admin: 01/22/19 12:24 Dose: 5 mg Polyethylene Glycol (Miralax (For Daily Use) -) 17 gm PO DAILY [facility] Last Admin: 01/22/19 10:17 Dose: 17 gm - Objective Vital Signs: Vital Signs Temperature 98 F 01/22/19 13:00 Pulse Rate 144 H 01/22/19 13:00 Respiratory Rate 20 01/22/19 13:00 Blood Pressure 141/85 01/22/19 13:00 O2 Sat by Pulse Oximetry (%) 93 L 01/22/19 09:00 General: Well developed. Chronic ill. No acute distress. Head: Normocephalic. Atraumatic, Eyes: PERRLA, EOMI. Sclerae anicteric. Conjunctivae clear. Neck: Supple. No JVD. No bruits. Heart: Normal S1, S2: Irregular rhythm and tachycardia. No murmur. No gallop or rub. Lungs: Symmetrical air entry. Bibasilar crackle. No wheezing or rhonchi. Abdomen: Soft. Bowel sound positive. Non tender. No masses. Extremities: 2+ edema. No clubbing or cyanosis. PD 2+, equal bilaterally. Neuro: Intact, no focal findings. AAO X3. Labs: CBC, BMP 01/22/19 05:30 01/22/19 05:30 INR, PTT INR 1.82 (0.83-1.09) H 01/20/19 12:36 Assessment/Plan 58-year-old woman with a PMHx of HTN, DM, persistent atrial fibrillation on Eliquis, chronic diastolic CHF, CKD, COPD, chronic leg swelling presented to ED with 2 days of progressively worsening bilateral leg edema and pain. She was found to have elevated BUN/Creat. BNP is elevate, but lower than before. LE duplex 01/20/19 showed no DVT. CXR 01/20/19 revealed cardiomegaly without acute pulmonary process. CT head showed central atrophy and microvascular ischemic changes. Atenolol dose was decreased based on her renal function. Her ventricular rate becomes rapid, up to 150s. The patient has no acute distress and denies palpitation, dizziness, chest pain or SOB. Echocardiogram 01/12/2019: Normal LV size with asymmetric hypertrophy and normal systolic function. LVEF 55%. Normal LA and RA in size. Mild to moderate AI. Trace MR. Mild TR. No pulm HTN. 1) Persistent atrial fibrillation with rapid VR after decrease atenolol based on her renal function. -VR control: 1. Change atenolol to metoprolol tartrate 100 mg BID (avoid future renal adjustment), titrate up as needed and BP tolerated for VR control. 2. Digoxin IV loadin.25 mg every 4-6 hours X4 to a total of 1.0 mg and then start PO Digoxin 0.125 mg daily tomorrow. 3. Continue diltiazem for now. -AC: Continue Eliquis 5 mg BID 2) Worsening leg edema: likely multifactorial: JOSEPH on CKD with decrease urine output on current dose of furosemide; side effects of high dose of diltiazem, relative low oncotic pressure (albumin 3.5) and possible diastolic CHF. Renal function improving. Diltiazem decreased to 240 mg daily. 3) Chronic diastolic CHF: stable without acute SOB. BNP is lower than before. We will follow with you!
[2019-01-23] MEDS: methylPREDNISolone NA SUCC 40 MG/1 ML VIAL IVPUSH SCH ×4 (03:36→21:13)
[2019-01-23] MEDS: oxyCODONE HCL 5 MG TABLET PO PRN ×3 (04:38→18:18)
[2019-01-23] MEDS: GABAPENTIN 300 MG CAPSULE (FP) PO SCH ×3 (06:41→21:13)
[2019-01-23] MEDS: INSULIN SLIDING SCALE (NOVOLOG) 1 VIAL SQ SCH ×4 (06:41→21:13)
[2019-01-23 07:19] LABS: CALCIUM 9.2 mg/dL (8.5-10.1); CREATININE 1.9 mg/dL (0.55-1.3); POTASSIUM 4.2 mmol/L (3.5-5.1)
[2019-01-23] MEDS: ALBUTEROL SO4 2.5/IPRATROPIUM 0.5 INH SOL 3 ML VIAL.NEB. NEB SCH ×4 (08:54→21:20)
[2019-01-23] MEDS ORDERED: ATENOLOL 50 MG TABLET (FP) PO SCH (10:00)
[2019-01-23] MEDS: DOCUSATE SODIUM 100 MG CAPSULE (FP) PO SCH ×2 (10:04→21:13)
[2019-01-23] MEDS: APIXABAN 5 MG TABLET PO SCH ×2 (10:04→21:13)
[2019-01-23] MEDS: FUROSEMIDE 40 MG/4 ML INJECTABLE VIAL IVPUSH SCH ×2 (10:04→14:36)
[2019-01-23] MEDS: POLYETHYLENE GLYCOL 3350 119 GM BTL PO SCH (10:06)
[2019-01-23] MEDS: BUDESONIDE/FORMETEROL FUMARATE 80/4.5 mcg INHALER IH SCH ×2 (10:06→21:36)
[2019-01-23] MEDS: MINERAL OIL ENEMA 133 ML ENEMA PR SCH (10:07)
--- NOTE | 2019-01-23 12:22 | PN ---
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 (short form) - Note 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: PULMONARY No CP or SOB. Some dry cough. SPO2 93% NOT ON O2 VSS/AFEBRILE Constitutional: Yes: NAD Eyes: No: Sclera Icterus Cardiovascular: Yes: Pulse Irregular Respiratory: Yes: Bilateral Rhonchi, no wheeze Gastrointestinal Inspection: (+) BS, NT, ND Edema: Yes Edema: LLE: 3+, RLE: 3+ Neurological: Yes: Alert. No: [facility] Labs: NOTED ACUTE ON CHRONIC HYPERCAPNEIC RESP FAILURE COPD DIASTOLIC HF LOWER EXTREMITY EDEMA AFIB LIKELY TANISHA OBESITY ACUTE ON CHRONIC KIDNEY INJURY THROMBOCYTOPENIA SMOKER PLAN INHALE BRONCHODILATORS O2 NIPPV NEEDED MEDROL MONITOR LYTES,RENAL FUNCTION DAILY WT SMOKING CESSATION PFTS OUTPATIENT SLEEP STUDIES OUTPATIENT Ashwin MACHADO MD
--- NOTE | 2019-01-23 13:09 | PN ---
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, Physician - Current Medication List Current Medications: Active Medications Acetaminophen (Tylenol -) 325 mg PO Q8H PRN PRN Reason: PAIN SCALE 6-10 Last Admin: 01/21/19 14:48 Dose: 325 mg Albuterol Sulfate (Ventolin 0.083% Nebulizer Soln -) 1 amp NEB Q4H PRN PRN Reason: SHORT OF BREATH/WHEEZING Albuterol/Ipratropium (Duoneb -) 1 amp NEB RQID [facility] Last Admin: 01/23/19 10:59 Dose: Not Given Apixaban (Eliquis -) 5 mg PO BID [facility] Last Admin: 01/23/19 10:04 Dose: 5 mg Budesonide/Formoterol Fumarate (Symbicort 80/4.5mcg -) 2 puff IH BID [facility] Last Admin: 01/23/19 10:06 Dose: 2 puff Bupropion HCl (Wellbutrin Xl -) 150 mg PO DAILY [facility] Last Admin: 01/23/19 10:04 Dose: 150 mg Diltiazem HCl (Cardizem Cd -) 240 mg PO DAILY [facility] Last Admin: 01/23/19 10:04 Dose: 240 mg Docusate Sodium (Colace -) 100 mg PO BID [facility] Last Admin: 01/23/19 10:04 Dose: 100 mg Furosemide (Lasix Injection -) 40 mg IVPUSH BID [facility] Gabapentin (Neurontin -) 300 mg PO TID [facility] Last Admin: 01/23/19 06:41 Dose: 300 mg Insulin Aspart (Novolog Vial Sliding Scale -) 1 vial SQ ACHS [facility]; Protocol Last Admin: 01/23/19 12:49 Dose: 2 units Methylprednisolone Sodium Succinate (Solu-Medrol -) 40 mg IVPUSH Q6H-IV [facility] Last Admin: 01/23/19 10:04 Dose: 40 mg Metoprolol Tartrate (Lopressor Injection -) 5 mg IVPUSH Q4H PRN PRN Reason: HYPERTENSION Last Admin: 01/22/19 18:44 Dose: 5 mg Metoprolol Tartrate (Lopressor -) 100 mg PO BID [facility] Mineral Oil (Fleet Mineral Oil Rectal Enema -) 133 ml [place] DAILY [facility] Stop: 01/25/19 11:14 Last Admin: 01/23/19 10:07 Dose: Not Given Oxycodone HCl (Roxicodone -) 5 mg PO Q6H PRN PRN Reason: PAIN SCALE 6-10 Last Admin: 01/23/19 10:05 Dose: 5 mg Polyethylene Glycol (Miralax (For Daily Use) -) 17 gm PO DAILY [facility] Last Admin: 01/23/19 10:06 Dose: 17 gm - Objective Vital Signs: Vital Signs Temperature 97.5 F L 01/23/19 09:29 Pulse Rate 128 H 01/23/19 09:29 Respiratory Rate 22 H 01/23/19 09:29 Blood Pressure 141/88 01/23/19 09:29 O2 Sat by Pulse Oximetry (%) 96 01/22/19 21:00 Labs: CBC, BMP 01/22/19 05:30 01/23/19 05:30 INR, PTT INR 1.82 (0.83-1.09) H 01/20/19 12:36 Assessment/Plan - Problems (1) JOSEPH (acute kidney injury) Assessment/Plan: renal function trending down 2.6-2.3 renal sono no hydronephrosis po lasix Code(s): N17.9 - ACUTE KIDNEY FAILURE, UNSPECIFIED (2) Gallstones Assessment/Plan: ct scan abdomen no contrast cannot get MRCP wants opem MRI can be done outpatient GI consult noted surgical eval for ultrasound findings Code(s): K80.20 - CALCULUS OF GALLBLADDER W/O CHOLECYSTITIS W/O OBSTRUCTION (3) Leg swelling Assessment/Plan: lasix no dvt in LE Code(s): M79.89 - OTHER SPECIFIED SOFT TISSUE DISORDERS (4) Acute on chronic diastolic (congestive) heart failure Assessment/Plan: iv lasix Code(s): I50.33 - ACUTE ON CHRONIC DIASTOLIC (CONGESTIVE) HEART FAILURE (5) Afib Assessment/Plan: eliqiuis atenolol 100mg daily---to lopressor 100 bid cardizem dose decreased to 240mg monitor HR Code(s): I48.91 - UNSPECIFIED ATRIAL FIBRILLATION Qualifiers: Atrial fibrillation type: unspecified Qualified Code(s): I48.91 - Unspecified atrial fibrillation (6) Constipation Assessment/Plan: suppository mirlaax enema GI eval noted Code(s): K59.00 - CONSTIPATION, UNSPECIFIED
--- NOTE | 2019-01-23 13:42 | PN ---
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, Physician Chief Complaint: no new complaints tele af rvr History of Present Illness: 58-year-old woman with a PMHx of HTN, DM, persistent atrial fibrillation on Eliquis, chronic diastolic CHF, CKD, COPD, chronic leg swelling presented to ED with 2 days of progressively worsening bilateral leg edema and pain. She was found to have elevated BUN/Creat. BNP is elevate, but lower than before. LE duplex 01/20/19 showed no DVT. CXR 01/20/19 revealed cardiomegaly without acute pulmonary process. CT head showed central atrophy and microvascular ischemic changes. Atenolol dose was decreased based on her renal function. Her ventricular rate becomes rapid, up to 150s. The patient has no acute distress and denies palpitation, dizziness, chest pain or SOB. Echocardiogram 01/12/2019: Normal LV size with asymmetric hypertrophy and normal systolic function. LVEF 55%. Normal LA and RA in size. Mild to moderate AI. Trace MR. Mild TR. No pulm HTN. - Current Medication List Current Medications: Active Medications Acetaminophen (Tylenol -) 325 mg PO Q8H PRN PRN Reason: PAIN SCALE 6-10 Last Admin: 01/21/19 14:48 Dose: 325 mg Albuterol Sulfate (Ventolin 0.083% Nebulizer Soln -) 1 amp NEB Q4H PRN PRN Reason: SHORT OF BREATH/WHEEZING Albuterol/Ipratropium (Duoneb -) 1 amp NEB RQID [facility] Last Admin: 01/23/19 10:59 Dose: Not Given Apixaban (Eliquis -) 5 mg PO BID [facility] Last Admin: 01/23/19 10:04 Dose: 5 mg Budesonide/Formoterol Fumarate (Symbicort 80/4.5mcg -) 2 puff IH BID [facility] Last Admin: 01/23/19 10:06 Dose: 2 puff Bupropion HCl (Wellbutrin Xl -) 150 mg PO DAILY [facility] Last Admin: 01/23/19 10:04 Dose: 150 mg Diltiazem HCl (Cardizem Cd -) 240 mg PO DAILY [facility] Last Admin: 01/23/19 10:04 Dose: 240 mg Docusate Sodium (Colace -) 100 mg PO BID [facility] Last Admin: 01/23/19 10:04 Dose: 100 mg Furosemide (Lasix Injection -) 40 mg IVPUSH BID [facility] Gabapentin (Neurontin -) 300 mg PO TID [facility] Last Admin: 01/23/19 06:41 Dose: 300 mg Insulin Aspart (Novolog Vial Sliding Scale -) 1 vial SQ ACHS [facility]; Protocol Last Admin: 01/23/19 12:49 Dose: 2 units Methylprednisolone Sodium Succinate (Solu-Medrol -) 40 mg IVPUSH Q6H-IV [facility] Last Admin: 01/23/19 10:04 Dose: 40 mg Metoprolol Tartrate (Lopressor Injection -) 5 mg IVPUSH Q4H PRN PRN Reason: HYPERTENSION Last Admin: 01/22/19 18:44 Dose: 5 mg Metoprolol Tartrate (Lopressor -) 100 mg PO BID [facility] Mineral Oil (Fleet Mineral Oil Rectal Enema -) 133 ml [place] DAILY [facility] Stop: 01/25/19 11:14 Last Admin: 01/23/19 10:07 Dose: Not Given Oxycodone HCl (Roxicodone -) 5 mg PO Q6H PRN PRN Reason: PAIN SCALE 6-10 Last Admin: 01/23/19 10:05 Dose: 5 mg Polyethylene Glycol (Miralax (For Daily Use) -) 17 gm PO DAILY [facility] Last Admin: 01/23/19 10:06 Dose: 17 gm - Objective Vital Signs: Vital Signs Temperature 97.5 F L 01/23/19 09:29 Pulse Rate 128 H 01/23/19 09:29 Respiratory Rate 22 H 01/23/19 09:29 Blood Pressure 141/88 01/23/19 09:29 O2 Sat by Pulse Oximetry (%) 96 01/22/19 21:00 Constitutional: Yes: No Distress Eyes: Yes: Conjunctiva Clear HENT: Yes: Normocephalic Neck: Yes: Trachea Midline Cardiovascular: Yes: Tachycardia, Pulse Irregular Respiratory: Yes: Rhonchi Gastrointestinal: Yes: Normal Bowel Sounds Extremities: Yes: WNL Edema: Yes Edema: LLE: Trace, RLE: Trace Peripheral Pulses WNL: Yes Labs: CBC, BMP 01/22/19 05:30 01/23/19 05:30 INR, PTT INR 1.82 (0.83-1.09) H 01/20/19 12:36 Assessment/Plan 58-year-old woman with a PMHx of HTN, DM, persistent atrial fibrillation on Eliquis, chronic diastolic CHF, CKD, COPD, chronic leg swelling presented to ED with 2 days of progressively worsening bilateral leg edema and pain. She was found to have elevated BUN/Creat. BNP is elevate, but lower than before. LE duplex 01/20/19 showed no DVT. CXR 01/20/19 revealed cardiomegaly without acute pulmonary process. CT head showed central atrophy and microvascular ischemic changes. Atenolol dose was decreased based on her renal function. Her ventricular rate becomes rapid, up to 150s. The patient has no acute distress and denies palpitation, dizziness, chest pain or SOB. Echocardiogram 01/12/2019: Normal LV size with asymmetric hypertrophy and normal systolic function. LVEF 55%. Normal LA and RA in size. Mild to moderate AI. Trace MR. Mild TR. No pulm HTN. 1) Persistent atrial fibrillation with rapid VR after decrease atenolol based on her renal function. -VR control: 1. Change atenolol to metoprolol tartrate 100 mg BID (avoid future renal adjustment), titrate up as needed and BP tolerated for VR control. 2. Digoxin IV loadin.25 mg every 4-6 hours X4 to a total of 1.0 mg and then start PO Digoxin 0.125 mg daily tomorrow. 3. Continue diltiazem for now. -AC: Continue Eliquis 5 mg BID 2) Worsening leg edema: likely multifactorial: JOSEPH on CKD with decrease urine output on current dose of furosemide; side effects of high dose of diltiazem, relative low oncotic pressure (albumin 3.5) and possible diastolic CHF. Renal function improving. Diltiazem decreased to 240 mg daily. LIMIT [employer]. CXR. 3) Chronic diastolic CHF: stable without acute SOB. BNP is lower than before. We will follow with you!
--- NOTE | 2019-01-23 17:23 | PN ---
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 (short form) - Note 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: covering dr lujan 1. CKD 2. CHF 3. a-fib 4. lower ext edema 5. COPD 6. active smoker Current Medications Acetaminophen (Tylenol -) 325 mg PO Q8H PRN PRN Reason: PAIN SCALE 6-10 Last Admin: 01/21/19 14:48 Dose: 325 mg Albuterol Sulfate (Ventolin 0.083% Nebulizer Soln -) 1 amp NEB Q4H PRN PRN Reason: SHORT OF BREATH/WHEEZING Albuterol/Ipratropium (Duoneb -) 1 amp NEB RQID [facility] Last Admin: 01/23/19 16:51 Dose: Not Given Apixaban (Eliquis -) 5 mg PO BID [facility] Last Admin: 01/23/19 10:04 Dose: 5 mg Budesonide/Formoterol Fumarate (Symbicort 80/4.5mcg -) 2 puff IH BID [facility] Last Admin: 01/23/19 10:06 Dose: 2 puff Bupropion HCl (Wellbutrin Xl -) 150 mg PO DAILY [facility] Last Admin: 01/23/19 10:04 Dose: 150 mg Diltiazem HCl (Cardizem Cd -) 240 mg PO DAILY [facility] Last Admin: 01/23/19 10:04 Dose: 240 mg Docusate Sodium (Colace -) 100 mg PO BID [facility] Last Admin: 01/23/19 10:04 Dose: 100 mg Furosemide (Lasix Injection -) 40 mg IVPUSH BIDLASIX [facility] Last Admin: 01/23/19 14:36 Dose: 40 mg Gabapentin (Neurontin -) 300 mg PO TID [facility] Last Admin: 01/23/19 14:36 Dose: 300 mg Insulin Aspart (Novolog Vial Sliding Scale -) 1 vial SQ ACHS [facility]; Protocol Last Admin: 01/23/19 12:49 Dose: 2 units Methylprednisolone Sodium Succinate (Solu-Medrol -) 40 mg IVPUSH Q6H-IV [facility] Last Admin: 01/23/19 14:37 Dose: 40 mg Metoprolol Tartrate (Lopressor Injection -) 5 mg IVPUSH Q4H PRN PRN Reason: HYPERTENSION Last Admin: 01/22/19 18:44 Dose: 5 mg Metoprolol Tartrate (Lopressor -) 100 mg PO BID [facility] Mineral Oil (Fleet Mineral Oil Rectal Enema -) 133 ml [place] DAILY [facility] Stop: 01/25/19 11:14 Last Admin: 01/23/19 10:07 Dose: Not Given Oxycodone HCl (Roxicodone -) 5 mg PO Q6H PRN PRN Reason: PAIN SCALE 6-10 Last Admin: 01/23/19 10:05 Dose: 5 mg Polyethylene Glycol (Miralax (For Daily Use) -) 17 gm PO DAILY [facility] Last Admin: 01/23/19 10:06 Dose: 17 gm Last Vital Signs Temp Pulse Resp BP Pulse Ox 97.7 F 133 H 22 H 140/95 96 01/23/19 14:00 01/23/19 14:00 01/23/19 14:00 01/23/19 14:00 01/23/19 09:00 CBC, BMP 01/22/19 05:30 01/23/19 05:30
[2019-01-23] MEDS: METOPROLOL TARTRATE 50 MG TABLET (FP) PO SCH (21:13)
[2019-01-24] MEDS: oxyCODONE HCL 5 MG TABLET PO PRN ×4 (00:55→18:48)
[2019-01-24 03:07] LABS: HBSAG SCREEN Negative (Negative); HEP B CORE AB, TOT Negative (Negative)
[2019-01-24] MEDS: methylPREDNISolone NA SUCC 40 MG/1 ML VIAL IVPUSH SCH ×3 (03:55→17:37)
[2019-01-24] MEDS: GABAPENTIN 300 MG CAPSULE (FP) PO SCH ×3 (06:48→21:17)
[2019-01-24] MEDS: INSULIN SLIDING SCALE (NOVOLOG) 1 VIAL SQ SCH ×4 (06:48→21:21)
[2019-01-24] MEDS: FUROSEMIDE 40 MG/4 ML INJECTABLE VIAL IVPUSH SCH ×2 (06:48→13:35)
[2019-01-24] MEDS: ALBUTEROL SO4 2.5/IPRATROPIUM 0.5 INH SOL 3 ML VIAL.NEB. NEB SCH ×4 (07:51→20:40)
[2019-01-24] MEDS: METOPROLOL TARTRATE 50 MG TABLET (FP) PO SCH ×4 (08:08→21:18)
[2019-01-24] MEDS: DOCUSATE SODIUM 100 MG CAPSULE (FP) PO SCH ×2 (09:58→21:17)
[2019-01-24] MEDS: APIXABAN 5 MG TABLET PO SCH ×2 (09:58→21:17)
--- NOTE | 2019-01-24 09:58 | PN ---
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, Physician - Current Medication List Current Medications: Active Medications Acetaminophen (Tylenol -) 325 mg PO Q8H PRN PRN Reason: PAIN SCALE 6-10 Last Admin: 01/21/19 14:48 Dose: 325 mg Albuterol Sulfate (Ventolin 0.083% Nebulizer Soln -) 1 amp NEB Q4H PRN PRN Reason: SHORT OF BREATH/WHEEZING Albuterol/Ipratropium (Duoneb -) 1 amp NEB RQID [facility] Last Admin: 01/24/19 07:51 Dose: Not Given Apixaban (Eliquis -) 5 mg PO BID [facility] Last Admin: 01/23/19 21:13 Dose: 5 mg Budesonide/Formoterol Fumarate (Symbicort 80/4.5mcg -) 2 puff IH BID [facility] Last Admin: 01/23/19 21:36 Dose: 2 puff Bupropion HCl (Wellbutrin Xl -) 150 mg PO DAILY [facility] Last Admin: 01/23/19 10:04 Dose: 150 mg Diltiazem HCl (Cardizem Cd -) 240 mg PO DAILY [facility] Last Admin: 01/23/19 10:04 Dose: 240 mg Docusate Sodium (Colace -) 100 mg PO BID [facility] Last Admin: 01/23/19 21:13 Dose: 100 mg Furosemide (Lasix Injection -) 40 mg IVPUSH BIDLASIX [facility] Last Admin: 01/24/19 06:48 Dose: 40 mg Gabapentin (Neurontin -) 300 mg PO TID [facility] Last Admin: 01/24/19 06:48 Dose: 300 mg Insulin Aspart (Novolog Vial Sliding Scale -) 1 vial SQ ACHS [facility]; Protocol Last Admin: 01/24/19 06:48 Dose: Not Given Methylprednisolone Sodium Succinate (Solu-Medrol -) 40 mg IVPUSH Q6H-IV [facility] Last Admin: 01/24/19 03:55 Dose: 40 mg Metoprolol Tartrate (Lopressor Injection -) 5 mg IVPUSH Q4H PRN PRN Reason: HYPERTENSION Last Admin: 01/22/19 18:44 Dose: 5 mg Mineral Oil (Fleet Mineral Oil Rectal Enema -) 133 ml [place] DAILY [facility] Stop: 01/25/19 11:14 Last Admin: 01/23/19 10:07 Dose: Not Given Oxycodone HCl (Roxicodone -) 5 mg PO Q6H PRN PRN Reason: PAIN SCALE 6-10 Last Admin: 01/24/19 07:12 Dose: 5 mg Polyethylene Glycol (Miralax (For Daily Use) -) 17 gm PO DAILY [facility] Last Admin: 01/23/19 10:06 Dose: 17 gm - Objective Vital Signs: Vital Signs Temperature 98.0 F 01/24/19 05:35 Pulse Rate 138 H 01/24/19 05:35 Respiratory Rate 20 01/24/19 05:35 Blood Pressure 135/93 01/24/19 05:35 O2 Sat by Pulse Oximetry (%) 96 01/23/19 21:00 Cardiovascular: Yes: Tachycardia, Pulse Irregular, S1, S2 Respiratory: Yes: Regular, CTA Bilaterally Gastrointestinal: Yes: Normal Bowel Sounds, Soft Labs: CBC, BMP 01/22/19 05:30 01/23/19 05:30 INR, PTT INR 1.82 (0.83-1.09) H 01/20/19 12:36 Assessment/Plan - Problems (1) JOSEPH (acute kidney injury) Assessment/Plan: renal function trending down 2.6-2.3 renal sono no hydronephrosis lasix and monitor Code(s): N17.9 - ACUTE KIDNEY FAILURE, UNSPECIFIED (2) Gallstones Assessment/Plan: ct scan abdomen no contrast cannot get MRCP wants opem MRI can be done outpatient GI consult noted surgical eval Code(s): K80.20 - CALCULUS OF GALLBLADDER W/O CHOLECYSTITIS W/O OBSTRUCTION (3) Leg swelling Assessment/Plan: lasix no dvt in LE Code(s): M79.89 - OTHER SPECIFIED SOFT TISSUE DISORDERS (4) Acute on chronic diastolic (congestive) heart failure Assessment/Plan: iv lasix follow labs Code(s): I50.33 - ACUTE ON CHRONIC DIASTOLIC (CONGESTIVE) HEART FAILURE (5) Afib Assessment/Plan: eliqiuis Rapid atenolol 100mg daily---to increase lopressor 150 bid cardizem dose decreased to 240mg monitor HR Code(s): I48.91 - UNSPECIFIED ATRIAL FIBRILLATION Qualifiers: Atrial fibrillation type: unspecified Qualified Code(s): I48.91 - Unspecified atrial fibrillation (6) Constipation Assessment/Plan: suppository mirlaax enema GI eval noted Code(s): K59.00 - CONSTIPATION, UNSPECIFIED
[2019-01-24] MEDS: BUDESONIDE/FORMETEROL FUMARATE 80/4.5 mcg INHALER IH SCH ×2 (09:59→21:19)
[2019-01-24] MEDS: MINERAL OIL ENEMA 133 ML ENEMA PR SCH (10:00)
[2019-01-24] MEDS: POLYETHYLENE GLYCOL 3350 119 GM BTL PO SCH (10:01)
--- NOTE | 2019-01-24 14:05 | PN ---
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 (short form) - Note 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: PULMONARY Subjective improvement VSS/AFEBRILE Constitutional: Yes: NAD Eyes: No: Sclera Icterus Cardiovascular: Yes: Pulse Irregular Respiratory: Yes: Bilateral Rhonchi, no wheeze Gastrointestinal Inspection: (+) BS, NT, ND Edema: Yes Edema: LLE: 3+, RLE: 3+ Neurological: Yes: Alert. No: [facility] Labs: NOTED ACUTE ON CHRONIC HYPERCAPNEIC RESP FAILURE COPD DIASTOLIC HF LOWER EXTREMITY EDEMA AFIB LIKELY TANISHA OBESITY ACUTE ON CHRONIC KIDNEY INJURY THROMBOCYTOPENIA SMOKER PLAN INHALE BRONCHODILATORS O2 NIPPV NEEDED MEDROL TAPERING MONITOR LYTES,RENAL FUNCTION DAILY WT SMOKING CESSATION PFTS OUTPATIENT SLEEP STUDIES OUTPATIENT Ashwin MACHADO MD
--- NOTE | 2019-01-24 14:16 | PN ---
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, Physician Chief Complaint: no new complaints tele af rvr History of Present Illness: 58-year-old woman with a PMHx of HTN, DM, persistent atrial fibrillation on Eliquis, chronic diastolic CHF, CKD, COPD, chronic leg swelling presented to ED with 2 days of progressively worsening bilateral leg edema and pain. She was found to have elevated BUN/Creat. BNP is elevate, but lower than before. LE duplex 01/20/19 showed no DVT. CXR 01/20/19 revealed cardiomegaly without acute pulmonary process. CT head showed central atrophy and microvascular ischemic changes. Atenolol dose was decreased based on her renal function. Her ventricular rate becomes rapid, up to 150s. The patient has no acute distress and denies palpitation, dizziness, chest pain or SOB. Echocardiogram 01/12/2019: Normal LV size with asymmetric hypertrophy and normal systolic function. LVEF 55%. Normal LA and RA in size. Mild to moderate AI. Trace MR. Mild TR. No pulm HTN. - Current Medication List Current Medications: Active Medications Acetaminophen (Tylenol -) 325 mg PO Q8H PRN PRN Reason: PAIN SCALE 6-10 Last Admin: 01/21/19 14:48 Dose: 325 mg Albuterol Sulfate (Ventolin 0.083% Nebulizer Soln -) 1 amp NEB Q4H PRN PRN Reason: SHORT OF BREATH/WHEEZING Albuterol/Ipratropium (Duoneb -) 1 amp NEB RQID [facility] Last Admin: 01/24/19 11:19 Dose: Not Given Apixaban (Eliquis -) 5 mg PO BID [facility] Last Admin: 01/24/19 09:58 Dose: 5 mg Budesonide/Formoterol Fumarate (Symbicort 80/4.5mcg -) 2 puff IH BID [facility] Last Admin: 01/24/19 09:59 Dose: 2 puff Bupropion HCl (Wellbutrin Xl -) 150 mg PO DAILY [facility] Last Admin: 01/24/19 09:58 Dose: 150 mg Diltiazem HCl (Cardizem Cd -) 240 mg PO DAILY [facility] Last Admin: 01/24/19 09:58 Dose: 240 mg Docusate Sodium (Colace -) 100 mg PO BID [facility] Last Admin: 01/24/19 09:58 Dose: 100 mg Furosemide (Lasix Injection -) 40 mg IVPUSH BIDLASIX [facility] Last Admin: 01/24/19 13:35 Dose: 40 mg Gabapentin (Neurontin -) 300 mg PO TID [facility] Last Admin: 01/24/19 13:35 Dose: 300 mg Insulin Aspart (Novolog Vial Sliding Scale -) 1 vial SQ ACHS [facility]; Protocol Last Admin: 01/24/19 13:35 Dose: 4 units Methylprednisolone Sodium Succinate (Solu-Medrol -) 20 mg IVPUSH Q8H-IV [facility] Metoprolol Tartrate (Lopressor Injection -) 5 mg IVPUSH Q4H PRN PRN Reason: HYPERTENSION Last Admin: 01/22/19 18:44 Dose: 5 mg Metoprolol Tartrate (Lopressor -) 150 mg PO BID [facility] Last Admin: 01/24/19 13:35 Dose: 50 mg Mineral Oil (Fleet Mineral Oil Rectal Enema -) 133 ml [place] DAILY [facility] Stop: 01/25/19 11:14 Last Admin: 01/24/19 10:00 Dose: Not Given Oxycodone HCl (Roxicodone -) 5 mg PO Q6H PRN PRN Reason: PAIN SCALE 6-10 Last Admin: 01/24/19 13:40 Dose: 5 mg Polyethylene Glycol (Miralax (For Daily Use) -) 17 gm PO DAILY [facility] Last Admin: 01/24/19 10:01 Dose: 17 gm - Objective Vital Signs: Vital Signs Temperature 97.4 F L 01/24/19 10:00 Pulse Rate 132 H 01/24/19 10:00 Respiratory Rate 24 H 01/24/19 10:00 Blood Pressure 138/70 01/24/19 10:00 O2 Sat by Pulse Oximetry (%) 98 01/24/19 09:00 Constitutional: Yes: No Distress, Calm Eyes: Yes: Conjunctiva Clear, EOM Intact HENT: Yes: Normocephalic Neck: Yes: Trachea Midline Cardiovascular: Yes: Tachycardia, Pulse Irregular Respiratory: Yes: CTA Bilaterally Musculoskeletal: Yes: WNL Extremities: Yes: WNL Edema: No Peripheral Pulses WNL: Yes Labs: CBC, BMP 01/22/19 05:30 01/23/19 05:30 INR, PTT INR 1.82 (0.83-1.09) H 01/20/19 12:36 Assessment/Plan 58-year-old woman with a PMHx of HTN, DM, persistent atrial fibrillation on Eliquis, chronic diastolic CHF, CKD, COPD, chronic leg swelling presented to ED with 2 days of progressively worsening bilateral leg edema and pain. She was found to have elevated BUN/Creat. BNP is elevate, but lower than before. LE duplex 01/20/19 showed no DVT. CXR 01/20/19 revealed cardiomegaly without acute pulmonary process. CT head showed central atrophy and microvascular ischemic changes. Atenolol dose was decreased based on her renal function. Her ventricular rate becomes rapid, up to 150s. The patient has no acute distress and denies palpitation, dizziness, chest pain or SOB. Echocardiogram 01/12/2019: Normal LV size with asymmetric hypertrophy and normal systolic function. LVEF 55%. Normal LA and RA in size. Mild to moderate AI. Trace MR. Mild TR. No pulm HTN. 1) Persistent atrial fibrillation with rapid VR after decrease atenolol based on her renal function. -VR control: 1. Change atenolol to metoprolol tartrate 100 mg BID (avoid future renal adjustment), titrate up as needed and BP tolerated for VR control. 2. Digoxin IV loadin.25 mg every 4-6 hours X4 to a total of 1.0 mg and then start PO Digoxin 0.125 mg daily tomorrow. 3. Continue diltiazem for now. -AC: Continue Eliquis 5 mg BID 2) Worsening leg edema: likely multifactorial: JOSEPH on CKD with decrease urine output on current dose of furosemide; side effects of high dose of diltiazem, relative low oncotic pressure (albumin 3.5) and possible diastolic CHF. Renal function improving. Diltiazem decreased to 240 mg daily. LIMIT [employer]A AGONISTS. CXR negative. 3) Chronic diastolic CHF: stable without acute SOB. BNP is lower than before. We will follow with you!
--- NOTE | 2019-01-24 21:40 | PN ---
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 (short form) - Note 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: covering dr lujan 1. CKD 2. CHF 3. a-fib 4. lower ext edema 5. COPD 6. active smoker Current Medications Acetaminophen (Tylenol -) 325 mg PO Q8H PRN PRN Reason: PAIN SCALE 6-10 Last Admin: 01/21/19 14:48 Dose: 325 mg Albuterol Sulfate (Ventolin 0.083% Nebulizer Soln -) 1 amp NEB Q4H PRN PRN Reason: SHORT OF BREATH/WHEEZING Albuterol/Ipratropium (Duoneb -) 1 amp NEB RQID [facility] Last Admin: 01/24/19 16:06 Dose: Not Given Apixaban (Eliquis -) 5 mg PO BID [facility] Last Admin: 01/24/19 21:17 Dose: 5 mg Budesonide/Formoterol Fumarate (Symbicort 80/4.5mcg -) 2 puff IH BID [facility] Last Admin: 01/24/19 21:19 Dose: 2 puff Bupropion HCl (Wellbutrin Xl -) 150 mg PO DAILY [facility] Last Admin: 01/24/19 09:58 Dose: 150 mg Diltiazem HCl (Cardizem Cd -) 240 mg PO DAILY [facility] Last Admin: 01/24/19 09:58 Dose: 240 mg Docusate Sodium (Colace -) 100 mg PO BID [facility] Last Admin: 01/24/19 21:17 Dose: Not Given Furosemide (Lasix Injection -) 40 mg IVPUSH BIDLASIX [facility] Last Admin: 01/24/19 13:35 Dose: 40 mg Gabapentin (Neurontin -) 300 mg PO TID [facility] Last Admin: 01/24/19 21:17 Dose: 300 mg Insulin Aspart (Novolog Vial Sliding Scale -) 1 vial SQ ACHS [facility]; Protocol Last Admin: 01/24/19 21:21 Dose: 2 units Methylprednisolone Sodium Succinate (Solu-Medrol -) 20 mg IVPUSH Q8H-IV [facility] Last Admin: 01/24/19 17:37 Dose: 20 mg Metoprolol Tartrate (Lopressor Injection -) 5 mg IVPUSH Q4H PRN PRN Reason: HYPERTENSION Last Admin: 01/22/19 18:44 Dose: 5 mg Metoprolol Tartrate (Lopressor -) 150 mg PO BID [facility] Last Admin: 01/24/19 21:18 Dose: 150 mg Mineral Oil (Fleet Mineral Oil Rectal Enema -) 133 ml [place] DAILY [facility] Stop: 01/25/19 11:14 Last Admin: 01/24/19 10:00 Dose: Not Given Oxycodone HCl (Roxicodone -) 5 mg PO Q6H PRN PRN Reason: PAIN SCALE 6-10 Last Admin: 01/24/19 18:48 Dose: 5 mg Polyethylene Glycol (Miralax (For Daily Use) -) 17 gm PO DAILY [facility] Last Admin: 01/24/19 10:01 Dose: 17 gm Last Vital Signs Temp Pulse Resp BP Pulse Ox 98.0 F 126 H 22 H 140/90 96 01/24/19 20:03 01/24/19 20:03 01/24/19 20:03 01/24/19 20:03 01/24/19 20:03 alert in nad c/o anxiety and depression no sob, lying down flat Lungs clear Heart reg Abd soft notender Ext no edema CBC, BMP 01/22/19 05:30 01/23/19 05:30 IMP- CKD HF hemodynamically stable Plan- f/u labs in am
[2019-01-25] MEDS: oxyCODONE HCL 5 MG TABLET PO PRN ×4 (00:58→20:11)
[2019-01-25] MEDS: ACETAMINOPHEN 325 MG TABLET (FP) PO PRN ×2 (00:59→20:12)
[2019-01-25] MEDS: methylPREDNISolone NA SUCC 40 MG/1 ML VIAL IVPUSH SCH ×3 (01:03→17:57)
[2019-01-25] MEDS: FUROSEMIDE 40 MG/4 ML INJECTABLE VIAL IVPUSH SCH ×2 (05:59→13:53)
[2019-01-25] MEDS: GABAPENTIN 300 MG CAPSULE (FP) PO SCH ×3 (05:59→22:01)
[2019-01-25] MEDS: INSULIN SLIDING SCALE (NOVOLOG) 1 VIAL SQ SCH ×4 (06:00→22:03)
[2019-01-25] MEDS: ALBUTEROL SO4 2.5/IPRATROPIUM 0.5 INH SOL 3 ML VIAL.NEB. NEB SCH ×4 (07:24→20:04)
[2019-01-25] MEDS ORDERED: PT OWN MED DRAWER 7, Y5N ONE (09:48)
[2019-01-25] MEDS: METOPROLOL TARTRATE 50 MG TABLET (FP) PO SCH ×2 (09:56→22:01)
[2019-01-25] MEDS: APIXABAN 5 MG TABLET PO SCH ×2 (09:56→22:01)
[2019-01-25] MEDS: DOCUSATE SODIUM 100 MG CAPSULE (FP) PO SCH ×3 (09:56→22:09)
[2019-01-25] MEDS: BUDESONIDE/FORMETEROL FUMARATE 80/4.5 mcg INHALER IH SCH ×2 (09:57→22:03)
[2019-01-25] MEDS: MINERAL OIL ENEMA 133 ML ENEMA PR SCH (09:57)
[2019-01-25] MEDS: POLYETHYLENE GLYCOL 3350 119 GM BTL PO SCH (09:59)
--- NOTE | 2019-01-25 10:50 | PN ---
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, Physician Chief Complaint: No dyspnea. Telem AF RVR 130s History of Present Illness: 58-year-old woman with a PMHx of HTN, DM, persistent atrial fibrillation on Eliquis, chronic diastolic CHF, CKD, COPD, chronic leg swelling presented to ED with 2 days of progressively worsening bilateral leg edema and pain. She was found to have elevated BUN/Creat. BNP is elevate, but lower than before. LE duplex 01/20/19 showed no DVT. CXR 01/20/19 revealed cardiomegaly without acute pulmonary process. CT head showed central atrophy and microvascular ischemic changes. Atenolol dose was decreased based on her renal function. Her ventricular rate becomes rapid, up to 150s. The patient has no acute distress and denies palpitation, dizziness, chest pain or SOB. Echocardiogram 01/12/2019: Normal LV size with asymmetric hypertrophy and normal systolic function. LVEF 55%. Normal LA and RA in size. Mild to moderate AI. Trace MR. Mild TR. No pulm HTN. - Current Medication List Current Medications: Active Medications Acetaminophen (Tylenol -) 325 mg PO Q8H PRN PRN Reason: PAIN SCALE 6-10 Last Admin: 01/25/19 00:59 Dose: 325 mg Albuterol Sulfate (Ventolin 0.083% Nebulizer Soln -) 1 amp NEB Q4H PRN PRN Reason: SHORT OF BREATH/WHEEZING Albuterol/Ipratropium (Duoneb -) 1 amp NEB RQID [facility] Last Admin: 01/25/19 07:24 Dose: Not Given Apixaban (Eliquis -) 5 mg PO BID [facility] Last Admin: 01/25/19 09:56 Dose: 5 mg Budesonide/Formoterol Fumarate (Symbicort 80/4.5mcg -) 2 puff IH BID [facility] Last Admin: 01/25/19 09:57 Dose: 2 puff Bupropion HCl (Wellbutrin Xl -) 150 mg PO DAILY [facility] Last Admin: 01/25/19 09:56 Dose: 150 mg Diltiazem HCl (Cardizem Cd -) 240 mg PO DAILY [facility] Last Admin: 01/25/19 10:01 Dose: Not Given Docusate Sodium (Colace -) 100 mg PO BID [facility] Last Admin: 01/25/19 09:56 Dose: 100 mg Furosemide (Lasix Injection -) 40 mg IVPUSH BIDLASIX [facility] Last Admin: 01/25/19 05:59 Dose: 40 mg Gabapentin (Neurontin -) 300 mg PO TID [facility] Last Admin: 01/25/19 05:59 Dose: 300 mg Insulin Aspart (Novolog Vial Sliding Scale -) 1 vial SQ ACHS [facility]; Protocol Last Admin: 01/25/19 06:00 Dose: Not Given Methylprednisolone Sodium Succinate (Solu-Medrol -) 20 mg IVPUSH Q8H-IV [facility] Last Admin: 01/25/19 09:56 Dose: 20 mg Metoprolol Tartrate (Lopressor Injection -) 5 mg IVPUSH Q4H PRN PRN Reason: HYPERTENSION Last Admin: 01/22/19 18:44 Dose: 5 mg Metoprolol Tartrate (Lopressor -) 150 mg PO BID [facility] Last Admin: 01/25/19 09:56 Dose: 150 mg Mineral Oil (Fleet Mineral Oil Rectal Enema -) 133 ml [place] DAILY [facility] Stop: 01/25/19 11:14 Last Admin: 01/25/19 09:57 Dose: Not Given Oxycodone HCl (Roxicodone -) 5 mg PO Q6H PRN PRN Reason: PAIN SCALE 6-10 Last Admin: 01/25/19 08:32 Dose: 5 mg Polyethylene Glycol (Miralax (For Daily Use) -) 17 gm PO DAILY [facility] Last Admin: 01/25/19 09:59 Dose: Not Given - Objective Vital Signs: Vital Signs Temperature 98.1 F 01/25/19 06:00 Pulse Rate 116 H 01/25/19 06:00 Respiratory Rate 20 01/25/19 06:00 Blood Pressure 147/88 01/25/19 06:00 O2 Sat by Pulse Oximetry (%) 96 01/24/19 21:00 Constitutional: Yes: Well Nourished, No Distress Eyes: Yes: Conjunctiva Clear, EOM Intact HENT: Yes: Atraumatic, Normocephalic Neck: Yes: Supple Cardiovascular: Yes: Tachycardia, Pulse Irregular, JVD, S1, S2 Respiratory: Yes: Regular, CTA Bilaterally Gastrointestinal: Yes: Normal Bowel Sounds, Soft Edema: Yes Edema: LLE: 1+, RLE: 1+ Labs: CBC, BMP 01/22/19 05:30 01/23/19 05:30 INR, PTT INR 1.82 (0.83-1.09) H 01/20/19 12:36 Problem List - Problems (1) JOSEPH (acute kidney injury) Code(s): N17.9 - ACUTE KIDNEY FAILURE, UNSPECIFIED (2) Acute on chronic diastolic (congestive) heart failure Code(s): I50.33 - ACUTE ON CHRONIC DIASTOLIC (CONGESTIVE) HEART FAILURE (3) Afib Code(s): I48.91 - UNSPECIFIED ATRIAL FIBRILLATION Qualifiers: Atrial fibrillation type: unspecified Qualified Code(s): I48.91 - Unspecified atrial fibrillation Assessment/Plan 58-year-old woman with a PMHx of HTN, DM, persistent atrial fibrillation on Eliquis, chronic diastolic CHF, CKD, COPD, chronic leg swelling presented to ED with 2 days of progressively worsening bilateral leg edema and pain. She was found to have elevated BUN/Creat. BNP is elevate, but lower than before. LE duplex 01/20/19 showed no DVT. CXR 01/20/19 revealed cardiomegaly without acute pulmonary process. CT head showed central atrophy and microvascular ischemic changes. Atenolol dose was decreased based on her renal function. Her ventricular rate becomes rapid, up to 150s. The patient has no acute distress and denies palpitation, dizziness, chest pain or SOB. Echocardiogram 01/12/2019: Normal LV size with asymmetric hypertrophy and normal systolic function. LVEF 55%. Normal LA and RA in size. Mild to moderate AI. Trace MR. Mild TR. No pulm HTN. 1) Persistent atrial fibrillation with rapid VR after decrease atenolol based on her renal function. -VR control: 1. Increase metoprolol tartrate 200 mg BID 2. Refused Diltiazem. Continue diltiazem for now. 2. Digoxin 0.125 mg daily -AC: Continue Eliquis 5 mg BID 2) Worsening leg edema: likely multifactorial: JOSEPH on CKD with decrease urine output on current dose of furosemide; side effects of high dose of diltiazem, relative low oncotic pressure (albumin 3.5) and possible diastolic CHF. Renal function improving. Diltiazem decreased to 240 mg daily. LIMIT BETA AGONISTS. CXR negative. 3) Chronic diastolic CHF: stable without acute SOB. BNP is lower than before.
--- NOTE | 2019-01-25 11:40 | PN ---
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, Physician History of Present Illness: PULMONARY ALERT,+ PEÑA,-CP,-COUGH. PT REMAINS IN RAPID AFIB - Current Medication List Current Medications: Active Medications Acetaminophen (Tylenol -) 325 mg PO Q8H PRN PRN Reason: PAIN SCALE 6-10 Last Admin: 01/25/19 00:59 Dose: 325 mg Albuterol Sulfate (Ventolin 0.083% Nebulizer Soln -) 1 amp NEB Q4H PRN PRN Reason: SHORT OF BREATH/WHEEZING Albuterol/Ipratropium (Duoneb -) 1 amp NEB RQID [facility] Last Admin: 01/25/19 11:18 Dose: 1 amp Apixaban (Eliquis -) 5 mg PO BID [facility] Last Admin: 01/25/19 09:56 Dose: 5 mg Budesonide/Formoterol Fumarate (Symbicort 80/4.5mcg -) 2 puff IH BID [facility] Last Admin: 01/25/19 09:57 Dose: 2 puff Bupropion HCl (Wellbutrin Xl -) 150 mg PO DAILY [facility] Last Admin: 01/25/19 09:56 Dose: 150 mg Digoxin (Lanoxin -) 0.125 mg PO DAILY [facility] Diltiazem HCl (Cardizem Cd -) 240 mg PO DAILY [facility] Last Admin: 01/25/19 10:01 Dose: Not Given Docusate Sodium (Colace -) 100 mg PO BID [facility] Last Admin: 01/25/19 09:56 Dose: 100 mg Furosemide (Lasix Injection -) 40 mg IVPUSH BIDLASIX [facility] Last Admin: 01/25/19 05:59 Dose: 40 mg Gabapentin (Neurontin -) 300 mg PO TID [facility] Last Admin: 01/25/19 05:59 Dose: 300 mg Insulin Aspart (Novolog Vial Sliding Scale -) 1 vial SQ ACHS [facility]; Protocol Last Admin: 01/25/19 06:00 Dose: Not Given Methylprednisolone Sodium Succinate (Solu-Medrol -) 20 mg IVPUSH Q8H-IV [facility] Last Admin: 01/25/19 09:56 Dose: 20 mg Metoprolol Tartrate (Lopressor Injection -) 5 mg IVPUSH Q4H PRN PRN Reason: HYPERTENSION Last Admin: 01/22/19 18:44 Dose: 5 mg Metoprolol Tartrate (Lopressor -) 150 mg PO BID [facility] Last Admin: 01/25/19 09:56 Dose: 150 mg Oxycodone HCl (Roxicodone -) 5 mg PO Q6H PRN PRN Reason: PAIN SCALE 6-10 Last Admin: 01/25/19 08:32 Dose: 5 mg Polyethylene Glycol (Miralax (For Daily Use) -) 17 gm PO DAILY [facility] Last Admin: 01/25/19 09:59 Dose: Not Given - Objective Vital Signs: Vital Signs Temperature 98.2 F 01/25/19 10:00 Pulse Rate 110 H 01/25/19 10:00 Respiratory Rate 24 H 01/25/19 10:00 Blood Pressure 131/100 01/25/19 10:00 O2 Sat by Pulse Oximetry (%) 96 01/24/19 21:00 Constitutional: Yes: Well Nourished, Calm Eyes: Yes: WNL HENT: Yes: WNL Neck: Yes: WNL Cardiovascular: Yes: Tachycardia, Pulse Irregular, S1, S2 Respiratory: Yes: Diminished Gastrointestinal: Yes: Normal Bowel Sounds, Soft Extremities: Yes: WNL Edema: Yes Labs: CBC, BMP 01/22/19 05:30 01/23/19 05:30 INR, PTT INR 1.82 (0.83-1.09) H 01/20/19 12:36 Assessment/Plan IMP ACUTE ON CHRONIC HYPERCAPNEIC RESPIRATORY FAILURE LIKELY COPD EXACERBATION DIASTOLIC HF LOWER EXTREMITY EDEMA AFIB WITH RVR LIKELY TANISHA OBESITY ACUTE ON CHRONIC KIDNEY INJURY IMPROVING THROMBOCYTOPENIA SMOKER PLAN INHALED BRONCHODILATORS O2 BIPAP NEEDED F/U ABGS RATE CONTROL PER CARDIOLOGY MEDROL MONITOR LYTES,RENAL FUNCTION DAILY WT SMOKING CESSATION PFTS OUTPATIENT SLEEP STUDIES OUTPATIENT DR ROLLE
--- NOTE | 2019-01-25 11:49 | PN ---
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, Physician History of Present Illness: Pt seen and examined at bedside. She is awake and alert. She feels that her breathing is improving. - Current Medication List Current Medications: Active Medications Acetaminophen (Tylenol -) 325 mg PO Q8H PRN PRN Reason: PAIN SCALE 6-10 Last Admin: 01/25/19 00:59 Dose: 325 mg Albuterol Sulfate (Ventolin 0.083% Nebulizer Soln -) 1 amp NEB Q4H PRN PRN Reason: SHORT OF BREATH/WHEEZING Albuterol/Ipratropium (Duoneb -) 1 amp NEB RQID [facility] Last Admin: 01/25/19 11:18 Dose: 1 amp Apixaban (Eliquis -) 5 mg PO BID [facility] Last Admin: 01/25/19 09:56 Dose: 5 mg Budesonide/Formoterol Fumarate (Symbicort 80/4.5mcg -) 2 puff IH BID [facility] Last Admin: 01/25/19 09:57 Dose: 2 puff Bupropion HCl (Wellbutrin Xl -) 150 mg PO DAILY [facility] Last Admin: 01/25/19 09:56 Dose: 150 mg Digoxin (Lanoxin -) 0.125 mg PO DAILY [facility] Diltiazem HCl (Cardizem Cd -) 240 mg PO DAILY [facility] Last Admin: 01/25/19 10:01 Dose: Not Given Docusate Sodium (Colace -) 100 mg PO BID [facility] Last Admin: 01/25/19 09:56 Dose: 100 mg Furosemide (Lasix Injection -) 40 mg IVPUSH BIDLASIX [facility] Last Admin: 01/25/19 05:59 Dose: 40 mg Gabapentin (Neurontin -) 300 mg PO TID [facility] Last Admin: 01/25/19 05:59 Dose: 300 mg Insulin Aspart (Novolog Vial Sliding Scale -) 1 vial SQ ACHS [facility]; Protocol Last Admin: 01/25/19 06:00 Dose: Not Given Methylprednisolone Sodium Succinate (Solu-Medrol -) 20 mg IVPUSH Q8H-IV [facility] Last Admin: 01/25/19 09:56 Dose: 20 mg Metoprolol Tartrate (Lopressor Injection -) 5 mg IVPUSH Q4H PRN PRN Reason: HYPERTENSION Last Admin: 01/22/19 18:44 Dose: 5 mg Metoprolol Tartrate (Lopressor -) 150 mg PO BID [facility] Last Admin: 01/25/19 09:56 Dose: 150 mg Oxycodone HCl (Roxicodone -) 5 mg PO Q6H PRN PRN Reason: PAIN SCALE 6-10 Last Admin: 01/25/19 08:32 Dose: 5 mg Polyethylene Glycol (Miralax (For Daily Use) -) 17 gm PO DAILY [facility] Last Admin: 01/25/19 09:59 Dose: Not Given - Objective Vital Signs: Vital Signs Temperature 98.2 F 01/25/19 10:00 Pulse Rate 110 H 01/25/19 10:00 Respiratory Rate 24 H 01/25/19 10:00 Blood Pressure 131/100 01/25/19 10:00 O2 Sat by Pulse Oximetry (%) 96 01/24/19 21:00 Constitutional: Yes: Calm Eyes: Yes: Conjunctiva Clear HENT: Yes: Atraumatic Neck: Yes: Supple Cardiovascular: Yes: S1, S2 Respiratory: Yes: CTA Bilaterally Gastrointestinal: Yes: Soft Genitourinary: Yes: WNL Edema: Yes Edema: LLE: 2+, RLE: 2+ Neurological: Yes: Oriented Psychiatric: Yes: Oriented Labs: CBC, BMP 01/22/19 05:30 01/23/19 05:30 INR, PTT INR 1.82 (0.83-1.09) H 01/20/19 12:36 Problem List - Problems (1) JOSEPH (acute kidney injury) Code(s): N17.9 - ACUTE KIDNEY FAILURE, UNSPECIFIED Assessment/Plan Current Medications Generic Name Dose Route Start Last Admin Trade Name Freq PRN Reason Stop Dose Admin Acetaminophen 325 mg 01/20/19 18:21 01/25/19 00:59 Tylenol - PO 325 mg Q8H PRN Administration PAIN SCALE 6-10 Albuterol Sulfate 1 amp 01/20/19 14:37 Ventolin 0.083% Nebulizer Soln - NEB Q4H PRN SHORT OF BREATH/WHEEZING Albuterol/Ipratropium 1 amp 01/20/19 16:00 01/25/19 11:18 Duoneb - NEB 1 amp RQID [facility] Administration Apixaban 5 mg 01/20/19 22:00 01/25/19 09:56 Eliquis - PO 5 mg BID [facility] Administration Budesonide/Formoterol Fumarate 2 puff 01/20/19 22:00 01/25/19 09:57 Symbicort 80/4.5mcg - IH 2 puff BID [facility] Administration Bupropion HCl 150 mg 01/21/19 16:45 01/25/19 09:56 Wellbutrin Xl - PO 150 mg DAILY [facility] Administration Digoxin 0.125 mg 01/25/19 11:00 Lanoxin - PO DAILY [facility] Diltiazem HCl 240 mg 01/22/19 10:00 01/25/19 10:01 Cardizem Cd - PO Not Given DAILY [facility] Docusate Sodium 100 mg 01/21/19 22:00 01/25/19 09:56 Colace - PO 100 mg BID [facility] Administration Furosemide 40 mg 01/23/19 14:00 01/25/19 05:59 Lasix Injection - IVPUSH 40 mg BIDLASIX [facility] Administration Gabapentin 300 mg 01/20/19 22:00 01/25/19 05:59 Neurontin - PO 300 mg TID [facility] Administration Insulin Aspart 1 vial 01/20/19 22:00 01/25/19 06:00 Novolog Vial Sliding Scale - SQ Not Given ACHS [facility] Protocol Methylprednisolone Sodium Succinate 20 mg 01/24/19 18:00 01/25/19 09:56 Solu-Medrol - IVPUSH 20 mg Q8H-IV [facility] Administration Metoprolol Tartrate 5 mg 01/22/19 12:58 01/22/19 18:44 Lopressor Injection - IVPUSH 5 mg Q4H PRN Administration HYPERTENSION Metoprolol Tartrate 150 mg 01/24/19 09:57 01/25/19 09:56 Lopressor - PO 150 mg BID [facility] Administration Oxycodone HCl 5 mg 01/22/19 12:08 01/25/19 08:32 Roxicodone - PO 5 mg Q6H PRN Administration PAIN SCALE 6-10 Polyethylene Glycol 17 gm 01/22/19 10:00 01/25/19 09:59 Miralax (For Daily Use) - PO Not Given DAILY [facility] Impression 1. CKD 2. CHF 3. a-fib 4. lower ext edema 5. COPD 6. active smoker Plan - check bmp - volume status improving on lasix - ua neg for blood or protein - will need outpt workup and follow up - monitor volume status
--- NOTE | 2019-01-25 11:55 | PN ---
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, Physician Chief Complaint: patient seen and examined - Current Medication List Current Medications: Active Medications Acetaminophen (Tylenol -) 325 mg PO Q8H PRN PRN Reason: PAIN SCALE 6-10 Last Admin: 01/25/19 00:59 Dose: 325 mg Albuterol Sulfate (Ventolin 0.083% Nebulizer Soln -) 1 amp NEB Q4H PRN PRN Reason: SHORT OF BREATH/WHEEZING Albuterol/Ipratropium (Duoneb -) 1 amp NEB RQID [facility] Last Admin: 01/25/19 11:18 Dose: 1 amp Apixaban (Eliquis -) 5 mg PO BID [facility] Last Admin: 01/25/19 09:56 Dose: 5 mg Budesonide/Formoterol Fumarate (Symbicort 80/4.5mcg -) 2 puff IH BID [facility] Last Admin: 01/25/19 09:57 Dose: 2 puff Bupropion HCl (Wellbutrin Xl -) 150 mg PO DAILY [facility] Last Admin: 01/25/19 09:56 Dose: 150 mg Digoxin (Lanoxin -) 0.125 mg PO DAILY [facility] Diltiazem HCl (Cardizem Cd -) 240 mg PO DAILY [facility] Last Admin: 01/25/19 10:01 Dose: Not Given Docusate Sodium (Colace -) 100 mg PO BID [facility] Last Admin: 01/25/19 09:56 Dose: 100 mg Furosemide (Lasix Injection -) 40 mg IVPUSH BIDLASIX [facility] Last Admin: 01/25/19 05:59 Dose: 40 mg Gabapentin (Neurontin -) 300 mg PO TID [facility] Last Admin: 01/25/19 05:59 Dose: 300 mg Insulin Aspart (Novolog Vial Sliding Scale -) 1 vial SQ ACHS [facility]; Protocol Last Admin: 01/25/19 06:00 Dose: Not Given Methylprednisolone Sodium Succinate (Solu-Medrol -) 20 mg IVPUSH Q8H-IV [facility] Last Admin: 01/25/19 09:56 Dose: 20 mg Metoprolol Tartrate (Lopressor Injection -) 5 mg IVPUSH Q4H PRN PRN Reason: HYPERTENSION Last Admin: 01/22/19 18:44 Dose: 5 mg Metoprolol Tartrate (Lopressor -) 150 mg PO BID [facility] Last Admin: 01/25/19 09:56 Dose: 150 mg Oxycodone HCl (Roxicodone -) 5 mg PO Q6H PRN PRN Reason: PAIN SCALE 6-10 Last Admin: 01/25/19 08:32 Dose: 5 mg Polyethylene Glycol (Miralax (For Daily Use) -) 17 gm PO DAILY [facility] Last Admin: 01/25/19 09:59 Dose: Not Given - Objective Vital Signs: Vital Signs Temperature 98.2 F 01/25/19 10:00 Pulse Rate 110 H 01/25/19 10:00 Respiratory Rate 24 H 01/25/19 10:00 Blood Pressure 131/100 01/25/19 10:00 O2 Sat by Pulse Oximetry (%) 96 01/24/19 21:00 Constitutional: Yes: Calm Cardiovascular: Yes: Tachycardia, Pulse Irregular, S1, S2 Respiratory: Yes: Diminished Gastrointestinal: Yes: Normal Bowel Sounds, Soft Edema: Yes Neurological: Yes: Alert, Oriented Labs: CBC, BMP 01/22/19 05:30 01/23/19 05:30 INR, PTT INR 1.82 (0.83-1.09) H 01/20/19 12:36 Problem List - Problems (1) JOSEPH (acute kidney injury) Assessment/Plan: renal function trending down 2.6-2.3-1.9 -repeat creatinine today renal sono no hydronephrosis iv bid lasix Code(s): N17.9 - ACUTE KIDNEY FAILURE, UNSPECIFIED (2) Gallstones Assessment/Plan: ct scan abdomen no contrast cannot get MRCP wants opem MRI can be done outpatient GI consult noted surgical eval for ultrasound findings Code(s): K80.20 - CALCULUS OF GALLBLADDER W/O CHOLECYSTITIS W/O OBSTRUCTION (3) Leg swelling Assessment/Plan: lasix bid iv no dvt in LE Code(s): M79.89 - OTHER SPECIFIED SOFT TISSUE DISORDERS (4) Acute on chronic diastolic (congestive) heart failure Assessment/Plan: iv lasix Code(s): I50.33 - ACUTE ON CHRONIC DIASTOLIC (CONGESTIVE) HEART FAILURE (5) Afib Assessment/Plan: eliqius metoprolol 200mg bid loaded with digoxin now on daily dig dose cardizem dose decreased to 240mg monitor HR Code(s): I48.91 - UNSPECIFIED ATRIAL FIBRILLATION Qualifiers: Atrial fibrillation type: unspecified Qualified Code(s): I48.91 - Unspecified atrial fibrillation (6) Constipation Assessment/Plan: suppository mirlaax enema GI eval noted Code(s): K59.00 - CONSTIPATION, UNSPECIFIED (7) Acute and chronic respiratory failure Assessment/Plan: medrol q8hr nebulizer Code(s): J96.20 - ACUTE AND CHR RESP FAILURE, UNSP W HYPOXIA OR HYPERCAPNIA
[2019-01-25] MEDS ORDERED: PANTOPRAZOLE 20 MG TABLET (FP) PO ONE (12:17)
[2019-01-25] MEDS: DIGOXIN 0.125 MG TABLET (FP) PO SCH (13:00)
[2019-01-25 13:01] LABS: BASO % 0.3 % (0-2.0); HEMATOCRIT 44.5 % (32.4-45.2); HEMOGLOBIN 14.1 GM/dL (10.7-15.3); LYMPH % 6.1 % (8-40); MCH 29.4 pg (25.7-33.7); MCHC 31.6 g/dl (32.0-36.0); MEAN PLT VOLUME 11.7 fl (7.5-11.1); MONO % 5.6 % (3.8-10.2); PLATELET COUNT 114 K/MM3 (134-434); RBC 4.79 M/mm3 (3.60-5.2); WHITE BLOOD COUNT 10.7 K/mm3 (4.0-10.0)
[2019-01-25 13:25] LABS: CALCIUM 8.6 mg/dL (8.5-10.1); POTASSIUM 3.8 mmol/L (3.5-5.1)
[2019-01-26] MEDS: METOPROLOL TARTRATE 5 MG/5 ML VIAL IVPUSH PRN (02:13)
[2019-01-26] MEDS: methylPREDNISolone NA SUCC 40 MG/1 ML VIAL IVPUSH SCH ×3 (02:14→17:48)
[2019-01-26] MEDS: oxyCODONE HCL 5 MG TABLET PO PRN ×4 (02:14→19:52)
[2019-01-26] MEDS: ACETAMINOPHEN 325 MG TABLET (FP) PO PRN ×2 (02:15→19:52)
[2019-01-26] MEDS: INSULIN SLIDING SCALE (NOVOLOG) 1 VIAL SQ SCH ×4 (06:17→23:07)
[2019-01-26] MEDS: FUROSEMIDE 40 MG/4 ML INJECTABLE VIAL IVPUSH SCH ×2 (06:17→13:47)
[2019-01-26] MEDS: GABAPENTIN 300 MG CAPSULE (FP) PO SCH ×3 (06:18→23:06)
[2019-01-26 08:07] LABS: CALCIUM 8.6 mg/dL (8.5-10.1); CREATININE 1.8 mg/dL (0.55-1.3); POTASSIUM 4.1 mmol/L (3.5-5.1)
[2019-01-26] MEDS: METOPROLOL TARTRATE 50 MG TABLET (FP) PO SCH ×3 (08:57→23:13)
[2019-01-26] MEDS: DIGOXIN 0.125 MG TABLET (FP) PO SCH (08:58)
[2019-01-26] MEDS: APIXABAN 5 MG TABLET PO SCH ×2 (10:11→23:06)
[2019-01-26] MEDS: BUDESONIDE/FORMETEROL FUMARATE 80/4.5 mcg INHALER IH SCH ×2 (10:11→23:11)
[2019-01-26] MEDS: DOCUSATE SODIUM 100 MG CAPSULE (FP) PO SCH ×2 (10:11→23:12)
[2019-01-26] MEDS: POLYETHYLENE GLYCOL 3350 119 GM BTL PO SCH (10:12)
--- NOTE | 2019-01-26 11:25 | PN ---
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, Physician Chief Complaint: JOSEPH Cholelithiasis ACUTE ON CHRONIC HYPERCAPNEIC RESP FAILURE COPD DIASTOLIC HF BL LOWER EXTREMITY EDEMA AFIB History of Present Illness: NAD wants to go home denies SOB - Current Medication List Current Medications: Active Medications Acetaminophen (Tylenol -) 325 mg PO Q8H PRN PRN Reason: PAIN SCALE 6-10 Last Admin: 01/26/19 02:15 Dose: 325 mg Albuterol Sulfate (Ventolin 0.083% Nebulizer Soln -) 1 amp NEB Q4H PRN PRN Reason: SHORT OF BREATH/WHEEZING Albuterol/Ipratropium (Duoneb -) 1 amp NEB RQID [facility] Last Admin: 01/25/19 20:04 Dose: Not Given Apixaban (Eliquis -) 5 mg PO BID [facility] Last Admin: 01/26/19 10:11 Dose: 5 mg Budesonide/Formoterol Fumarate (Symbicort 80/4.5mcg -) 2 puff IH BID [facility] Last Admin: 01/26/19 10:11 Dose: 2 puff Bupropion HCl (Wellbutrin Xl -) 150 mg PO DAILY [facility] Last Admin: 01/26/19 10:11 Dose: 150 mg Digoxin (Lanoxin -) 0.125 mg PO DAILY [facility] Last Admin: 01/26/19 08:58 Dose: 0.125 mg Diltiazem HCl (Cardizem Cd -) 240 mg PO DAILY [facility] Last Admin: 01/26/19 08:58 Dose: 240 mg Docusate Sodium (Colace -) 100 mg PO BID [facility] Last Admin: 01/26/19 10:11 Dose: 100 mg Furosemide (Lasix Injection -) 40 mg IVPUSH BIDLASIX [facility] Last Admin: 01/26/19 06:17 Dose: 40 mg Gabapentin (Neurontin -) 300 mg PO TID [facility] Last Admin: 01/26/19 06:18 Dose: 300 mg Insulin Aspart (Novolog Vial Sliding Scale -) 1 vial SQ ACHS [facility]; Protocol Last Admin: 01/26/19 06:17 Dose: 2 units Methylprednisolone Sodium Succinate (Solu-Medrol -) 20 mg IVPUSH Q8H-IV [facility] Last Admin: 01/26/19 10:11 Dose: 20 mg Metoprolol Tartrate (Lopressor Injection -) 5 mg IVPUSH Q4H PRN PRN Reason: HYPERTENSION Last Admin: 01/26/19 02:13 Dose: 5 mg Metoprolol Tartrate (Lopressor -) 200 mg PO BID [facility] Last Admin: 01/26/19 08:57 Dose: 200 mg Oxycodone HCl (Roxicodone -) 5 mg PO Q6H PRN PRN Reason: PAIN SCALE 6-10 Last Admin: 01/26/19 08:30 Dose: 5 mg Polyethylene Glycol (Miralax (For Daily Use) -) 17 gm PO DAILY [facility] Last Admin: 01/26/19 10:12 Dose: 17 gm - Objective Vital Signs: Vital Signs Temperature 98.1 F 01/26/19 08:32 Pulse Rate 142 H 01/26/19 08:58 Respiratory Rate 18 01/26/19 09:00 Blood Pressure 158/104 H 01/26/19 08:32 O2 Sat by Pulse Oximetry (%) 95 01/26/19 09:00 Constitutional: Yes: Well Nourished, No Distress, Calm Cardiovascular: Yes: Tachycardia, Pulse Irregular Respiratory: Yes: Regular, Diminished (BLL) Gastrointestinal: Yes: Normal Bowel Sounds, Soft Musculoskeletal: Yes: Muscle Weakness Edema: Yes Edema: LLE: 2+, RLE: 2+ Peripheral Pulses WNL: Yes Neurological: Yes: Alert, Oriented Psychiatric: Yes: Alert, Oriented Labs: CBC, BMP 01/25/19 12:15 01/26/19 06:58 INR, PTT INR 1.82 (0.83-1.09) H 01/20/19 12:36 Problem List - Problems (1) Thrombocytopenia Assessment/Plan: -Unsure of the cause -stable at this time -No splenomegaly on abd CT -Hematology consult Code(s): D69.6 - THROMBOCYTOPENIA, UNSPECIFIED Assessment/Plan (1) Acute on chronic diastolic (congestive) heart failure Assessment/Plan: -Cardiology consult -1L fluid restriction -daily weights -Lasix 40 mg po BID -BB and CCB Code(s): I50.33 - ACUTE ON CHRONIC DIASTOLIC (CONGESTIVE) HEART FAILURE (2) Afib Assessment/Plan: -continue Eliquis Code(s): I48.91 - UNSPECIFIED ATRIAL FIBRILLATION Qualifiers: Atrial fibrillation type: unspecified Qualified Code(s): I48.91 - Unspecified atrial fibrillation (3) CKD (chronic kidney disease) Assessment/Plan: -monitor renal function -renal consult Code(s): N18.9 - CHRONIC KIDNEY DISEASE, UNSPECIFIED (4) Hypertension Assessment/Plan: -continue Cardizem and Atenolol -low Na diet Code(s): I10 - ESSENTIAL (PRIMARY) HYPERTENSION (5) COPD (chronic obstructive pulmonary disease) Assessment/Plan: -Symbicort -IV medrol change to 40 mg daily -bronchodilators -Keep SpO2 >90% -O2 via NC -Bipap HS -pulm on board Code(s): J44.9 - CHRONIC OBSTRUCTIVE PULMONARY DISEASE, UNSPECIFIED Qualifiers: (6) Respiratory acidosis Assessment/Plan: -Pulm on board -Bipap QHS -monitor ABG Code(s): E87.2 - ACIDOSIS
--- NOTE | 2019-01-26 11:37 | PN ---
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, Physician History of Present Illness: PULMONARY ALERT,OOB-CHAIR,FEELING BETTER,LESS DYSPNEIC - Current Medication List Current Medications: Active Medications Acetaminophen (Tylenol -) 325 mg PO Q8H PRN PRN Reason: PAIN SCALE 6-10 Last Admin: 01/26/19 02:15 Dose: 325 mg Albuterol Sulfate (Ventolin 0.083% Nebulizer Soln -) 1 amp NEB Q4H PRN PRN Reason: SHORT OF BREATH/WHEEZING Albuterol/Ipratropium (Duoneb -) 1 amp NEB RQID [facility] Last Admin: 01/25/19 20:04 Dose: Not Given Apixaban (Eliquis -) 5 mg PO BID [facility] Last Admin: 01/26/19 10:11 Dose: 5 mg Budesonide/Formoterol Fumarate (Symbicort 80/4.5mcg -) 2 puff IH BID [facility] Last Admin: 01/26/19 10:11 Dose: 2 puff Bupropion HCl (Wellbutrin Xl -) 150 mg PO DAILY [facility] Last Admin: 01/26/19 10:11 Dose: 150 mg Digoxin (Lanoxin -) 0.125 mg PO DAILY [facility] Last Admin: 01/26/19 08:58 Dose: 0.125 mg Diltiazem HCl (Cardizem Cd -) 240 mg PO DAILY [facility] Last Admin: 01/26/19 08:58 Dose: 240 mg Docusate Sodium (Colace -) 100 mg PO BID [facility] Last Admin: 01/26/19 10:11 Dose: 100 mg Furosemide (Lasix Injection -) 40 mg IVPUSH BIDLASIX [facility] Last Admin: 01/26/19 06:17 Dose: 40 mg Gabapentin (Neurontin -) 300 mg PO TID [facility] Last Admin: 01/26/19 06:18 Dose: 300 mg Insulin Aspart (Novolog Vial Sliding Scale -) 1 vial SQ ACHS [facility]; Protocol Last Admin: 01/26/19 06:17 Dose: 2 units Methylprednisolone Sodium Succinate (Solu-Medrol -) 20 mg IVPUSH Q8H-IV [facility] Last Admin: 01/26/19 10:11 Dose: 20 mg Metoprolol Tartrate (Lopressor Injection -) 5 mg IVPUSH Q4H PRN PRN Reason: HYPERTENSION Last Admin: 01/26/19 02:13 Dose: 5 mg Metoprolol Tartrate (Lopressor -) 200 mg PO BID [facility] Last Admin: 01/26/19 08:57 Dose: 200 mg Oxycodone HCl (Roxicodone -) 5 mg PO Q6H PRN PRN Reason: PAIN SCALE 6-10 Last Admin: 01/26/19 08:30 Dose: 5 mg Polyethylene Glycol (Miralax (For Daily Use) -) 17 gm PO DAILY [facility] Last Admin: 01/26/19 10:12 Dose: 17 gm - Objective Vital Signs: Vital Signs Temperature 98.1 F 01/26/19 08:32 Pulse Rate 142 H 01/26/19 08:58 Respiratory Rate 18 01/26/19 09:00 Blood Pressure 158/104 H 01/26/19 08:32 O2 Sat by Pulse Oximetry (%) 95 01/26/19 09:00 Constitutional: Yes: Well Nourished, Calm Eyes: Yes: WNL HENT: Yes: WNL Neck: Yes: WNL Cardiovascular: Yes: Pulse Irregular, S1, S2 Respiratory: Yes: Diminished Gastrointestinal: Yes: Normal Bowel Sounds, Soft Extremities: Yes: WNL Edema: Yes Labs: 01/26/19 06:58 INR, PTT INR 1.82 (0.83-1.09) H 01/20/19 12:36 Assessment/Plan IMP ACUTE ON CHRONIC HYPERCAPNEIC RESPIRATORY FAILURE IMPROVING LIKELY COPD EXACERBATION IMPROVING DIASTOLIC HF LOWER EXTREMITY EDEMA AFIB WITH RVR LIKELY TANISHA OBESITY ACUTE ON CHRONIC KIDNEY INJURY IMPROVING THROMBOCYTOPENIA SMOKER PLAN INHALED BRONCHODILATORS O2 BIPAP NEEDED F/U ABG ON RA PRIOR TO DISCHARGE RATE CONTROL PER CARDIOLOGY MEDROL TAPER MONITOR LYTES,RENAL FUNCTION DAILY WT SMOKING CESSATION PFTS OUTPATIENT SLEEP STUDIES OUTPATIENT F/U CHEST CT OUTPATIENT DR ROLLE
--- NOTE | 2019-01-26 11:41 | PN ---
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, Physician History of Present Illness: Pt seen and examined at bedside. She is awake and alert. She denies shortness of breath. She still has lower ext edema. - Current Medication List Current Medications: Active Medications Acetaminophen (Tylenol -) 325 mg PO Q8H PRN PRN Reason: PAIN SCALE 6-10 Last Admin: 01/26/19 02:15 Dose: 325 mg Albuterol Sulfate (Ventolin 0.083% Nebulizer Soln -) 1 amp NEB Q4H PRN PRN Reason: SHORT OF BREATH/WHEEZING Albuterol/Ipratropium (Duoneb -) 1 amp NEB RQID [facility] Last Admin: 01/25/19 20:04 Dose: Not Given Apixaban (Eliquis -) 5 mg PO BID [facility] Last Admin: 01/26/19 10:11 Dose: 5 mg Budesonide/Formoterol Fumarate (Symbicort 80/4.5mcg -) 2 puff IH BID [facility] Last Admin: 01/26/19 10:11 Dose: 2 puff Bupropion HCl (Wellbutrin Xl -) 150 mg PO DAILY [facility] Last Admin: 01/26/19 10:11 Dose: 150 mg Digoxin (Lanoxin -) 0.125 mg PO DAILY [facility] Last Admin: 01/26/19 08:58 Dose: 0.125 mg Diltiazem HCl (Cardizem Cd -) 240 mg PO DAILY [facility] Last Admin: 01/26/19 08:58 Dose: 240 mg Docusate Sodium (Colace -) 100 mg PO BID [facility] Last Admin: 01/26/19 10:11 Dose: 100 mg Furosemide (Lasix Injection -) 40 mg IVPUSH BIDLASIX [facility] Last Admin: 01/26/19 06:17 Dose: 40 mg Gabapentin (Neurontin -) 300 mg PO TID [facility] Last Admin: 01/26/19 06:18 Dose: 300 mg Insulin Aspart (Novolog Vial Sliding Scale -) 1 vial SQ ACHS [facility]; Protocol Last Admin: 01/26/19 06:17 Dose: 2 units Methylprednisolone Sodium Succinate (Solu-Medrol -) 20 mg IVPUSH Q8H-IV [facility] Last Admin: 01/26/19 10:11 Dose: 20 mg Metoprolol Tartrate (Lopressor Injection -) 5 mg IVPUSH Q4H PRN PRN Reason: HYPERTENSION Last Admin: 01/26/19 02:13 Dose: 5 mg Metoprolol Tartrate (Lopressor -) 200 mg PO BID [facility] Last Admin: 01/26/19 08:57 Dose: 200 mg Oxycodone HCl (Roxicodone -) 5 mg PO Q6H PRN PRN Reason: PAIN SCALE 6-10 Last Admin: 01/26/19 08:30 Dose: 5 mg Polyethylene Glycol (Miralax (For Daily Use) -) 17 gm PO DAILY [facility] Last Admin: 01/26/19 10:12 Dose: 17 gm - Objective Vital Signs: Vital Signs Temperature 98.1 F 01/26/19 08:32 Pulse Rate 142 H 01/26/19 08:58 Respiratory Rate 18 01/26/19 09:00 Blood Pressure 158/104 H 01/26/19 08:32 O2 Sat by Pulse Oximetry (%) 95 01/26/19 09:00 Constitutional: Yes: Calm Eyes: Yes: Conjunctiva Clear HENT: Yes: Atraumatic Neck: Yes: Supple Cardiovascular: Yes: S1, S2 Respiratory: Yes: CTA Bilaterally Gastrointestinal: Yes: Soft Genitourinary: Yes: WNL Musculoskeletal: Yes: WNL Edema: No Neurological: Yes: Oriented Psychiatric: Yes: Oriented Labs: CBC, BMP 01/25/19 12:15 01/26/19 06:58 INR, PTT INR 1.82 (0.83-1.09) H 01/20/19 12:36 Problem List - Problems (1) JOSEPH (acute kidney injury) Code(s): N17.9 - ACUTE KIDNEY FAILURE, UNSPECIFIED Assessment/Plan Current Medications Generic Name Dose Route Start Last Admin Trade Name Freq PRN Reason Stop Dose Admin Acetaminophen 325 mg 01/20/19 18:21 01/26/19 02:15 Tylenol - PO 325 mg Q8H PRN Administration PAIN SCALE 6-10 Albuterol Sulfate 1 amp 01/20/19 14:37 Ventolin 0.083% Nebulizer Soln - NE[facility] Q4H PRN SHORT OF BREATH/WHEEZING Albuterol/Ipratropium 1 amp 01/20/19 16:00 01/25/19 20:04 Duoneb - NEB Not Given RQID [facility] Apixaban 5 mg 01/20/19 22:00 01/26/19 10:11 Eliquis - PO 5 mg BID [facility] Administration Budesonide/Formoterol Fumarate 2 puff 01/20/19 22:00 01/26/19 10:11 Symbicort 80/4.5mcg - IH 2 puff BID [facility] Administration Bupropion HCl 150 mg 01/21/19 16:45 01/26/19 10:11 Wellbutrin Xl - PO 150 mg DAILY [facility] Administration Digoxin 0.125 mg 01/25/19 11:00 01/26/19 08:58 Lanoxin - PO 0.125 mg DAILY [facility] Administration Diltiazem HCl 240 mg 01/22/19 10:00 01/26/19 08:58 Cardizem Cd - PO 240 mg DAILY [facility] Administration Docusate Sodium 100 mg 01/21/19 22:00 01/26/19 10:11 Colace - PO 100 mg BID [facility] Administration Furosemide 40 mg 01/23/19 14:00 01/26/19 06:17 Lasix Injection - IVPUSH 40 mg BIDLASIX [facility] Administration Gabapentin 300 mg 01/20/19 22:00 01/26/19 06:18 Neurontin - PO 300 mg TID [facility] Administration Insulin Aspart 1 vial 01/20/19 22:00 01/26/19 06:17 Novolog Vial Sliding Scale - SQ 2 units ACHS [facility] Administration Protocol Methylprednisolone Sodium Succinate 20 mg 01/24/19 18:00 01/26/19 10:11 Solu-Medrol - IVPUSH 20 mg Q8H-IV [facility] Administration Metoprolol Tartrate 5 mg 01/22/19 12:58 01/26/19 02:13 Lopressor Injection - IVPUSH 5 mg Q4H PRN Administration HYPERTENSION Metoprolol Tartrate 200 mg 01/25/19 12:05 01/26/19 08:57 Lopressor - PO 200 mg BID [facility] Administration Oxycodone HCl 5 mg 01/22/19 12:08 01/26/19 08:30 Roxicodone - PO 5 mg Q6H PRN Administration PAIN SCALE 6-10 Polyethylene Glycol 17 gm 01/22/19 10:00 01/26/19 10:12 Miralax (For Daily Use) - PO 17 gm DAILY [facility] Administration Impression 1. CKD 2. CHF 3. a-fib 4. lower ext edema 5. COPD 6. active smoker Plan - cont lasix bid - monitor renal function - ua neg for blood or protein - will need outpt workup and follow up - monitor volume status - discussed plan with pt at length
[2019-01-26] MEDS: ALBUTEROL SO4 2.5/IPRATROPIUM 0.5 INH SOL 3 ML VIAL.NEB. NEB SCH ×4 (12:03→20:28)
--- NOTE | 2019-01-26 12:09 | PN ---
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, Physician History of Present Illness: seen and examined today in nad. agitated easily. wants to go home. denies any overnight events or new complaints. - Current Medication List Current Medications: Active Medications Acetaminophen (Tylenol -) 325 mg PO Q8H PRN PRN Reason: PAIN SCALE 6-10 Last Admin: 01/26/19 02:15 Dose: 325 mg Albuterol Sulfate (Ventolin 0.083% Nebulizer Soln -) 1 amp NEB Q4H PRN PRN Reason: SHORT OF BREATH/WHEEZING Albuterol/Ipratropium (Duoneb -) 1 amp NEB RQID [facility] Last Admin: 01/25/19 20:04 Dose: Not Given Apixaban (Eliquis -) 5 mg PO BID [facility] Last Admin: 01/26/19 10:11 Dose: 5 mg Budesonide/Formoterol Fumarate (Symbicort 80/4.5mcg -) 2 puff IH BID [facility] Last Admin: 01/26/19 10:11 Dose: 2 puff Bupropion HCl (Wellbutrin Xl -) 150 mg PO DAILY [facility] Last Admin: 01/26/19 10:11 Dose: 150 mg Digoxin (Lanoxin -) 0.125 mg PO DAILY [facility] Last Admin: 01/26/19 08:58 Dose: 0.125 mg Diltiazem HCl (Cardizem Cd -) 240 mg PO DAILY [facility] Last Admin: 01/26/19 08:58 Dose: 240 mg Docusate Sodium (Colace -) 100 mg PO BID [facility] Last Admin: 01/26/19 10:11 Dose: 100 mg Furosemide (Lasix Injection -) 40 mg IVPUSH BIDLASIX [facility] Last Admin: 01/26/19 06:17 Dose: 40 mg Gabapentin (Neurontin -) 300 mg PO TID [facility] Last Admin: 01/26/19 06:18 Dose: 300 mg Insulin Aspart (Novolog Vial Sliding Scale -) 1 vial SQ ACHS [facility]; Protocol Last Admin: 01/26/19 06:17 Dose: 2 units Methylprednisolone Sodium Succinate (Solu-Medrol -) 20 mg IVPUSH Q8H-IV [facility] Last Admin: 01/26/19 10:11 Dose: 20 mg Metoprolol Tartrate (Lopressor Injection -) 5 mg IVPUSH Q4H PRN PRN Reason: HYPERTENSION Last Admin: 01/26/19 02:13 Dose: 5 mg Metoprolol Tartrate (Lopressor -) 200 mg PO BID [facility] Last Admin: 01/26/19 08:57 Dose: 200 mg Oxycodone HCl (Roxicodone -) 5 mg PO Q6H PRN PRN Reason: PAIN SCALE 6-10 Last Admin: 01/26/19 08:30 Dose: 5 mg Polyethylene Glycol (Miralax (For Daily Use) -) 17 gm PO DAILY [facility] Last Admin: 01/26/19 10:12 Dose: 17 gm - Objective Vital Signs: Vital Signs Temperature 98.1 F 01/26/19 08:32 Pulse Rate 142 H 01/26/19 08:58 Respiratory Rate 18 01/26/19 09:00 Blood Pressure 158/104 H 01/26/19 08:32 O2 Sat by Pulse Oximetry (%) 95 01/26/19 09:00 Constitutional: Yes: No Distress, Calm Eyes: Yes: Conjunctiva Clear, EOM Intact HENT: Yes: Atraumatic, Tonsillar Exudate Neck: Yes: Supple, Trachea Midline Cardiovascular: Yes: Tachycardia, Pulse Irregular, S1, S2. No: Regular Rate and Rhythm, Bradycardia, Bruit, JVD, Gallop, Murmur, Rub, S3, S4, Varicosities Respiratory: Yes: Regular, Diminished, On Nasal O2. No: Rales, Rhonchi, SOB, Wheezes Gastrointestinal: Yes: Normal Bowel Sounds, Soft Edema: LLE: Trace, RLE: Trace Peripheral Pulses WNL: Yes Neurological: Yes: Alert, Oriented Psychiatric: Yes: Alert, Oriented Labs: CBC, BMP 01/25/19 12:15 01/26/19 06:58 INR, PTT INR 1.82 (0.83-1.09) H 01/20/19 12:36 - ....Imaging Chest X-ray: Report Reviewed, Image Reviewed EKG: Report Reviewed, Image Reviewed Other: Report Reviewed, Image Reviewed (tele-AF RVr) Assessment/Plan 58-year-old woman with a PMHx of HTN, DM, persistent atrial fibrillation on Eliquis, chronic diastolic CHF, CKD, COPD, chronic leg swelling presented to ED with 2 days of progressively worsening bilateral leg edema and pain. She was found to have elevated BUN/Creat. BNP is elevate, but lower than before. LE duplex 01/20/19 showed no DVT. CXR 01/20/19 revealed cardiomegaly without acute pulmonary process. CT head showed central atrophy and microvascular ischemic changes. Atenolol dose was decreased based on her renal function. Her ventricular rate becomes rapid, up to 150s. The patient has no acute distress and denies palpitation, dizziness, chest pain or SOB. Echocardiogram 01/12/2019: Normal LV size with asymmetric hypertrophy and normal systolic function. LVEF 55%. Normal LA and RA in size. Mild to moderate AI. Trace MR. Mild TR. No pulm HTN. 1) Persistent atrial fibrillation with rapid VR after decrease atenolol based on her renal function. -VR control: 1.cont metoprolol tartrate 200 mg BID 2. Continue diltiazem for now she is agreeable to take it now 2. cont Digoxin 0.125 mg daily -AC: Continue Eliquis 5 mg BID 2) Worsening leg edema: likely multifactorial: JOSEPH on CKD with decrease urine output on current dose of furosemide; side effects of high dose of diltiazem, relative low oncotic pressure (albumin 3.5) and possible diastolic CHF. Renal function improving. Diltiazem decreased to 240 mg daily. LIMIT BETA [employer]ONISTS. CXR negative. 3) Chronic diastolic CHF: stable without acute SOB. BNP is lower than before.
--- NOTE | 2019-01-26 15:45 | PN ---
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 (short form) - Note 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: CT scan with limited evaluation of pancreas. Patient refuses MRI. Can have open MRI as outpatient followed by posisble EUS Problem List - Problems (1) Gallstones Code(s): K80.20 - CALCULUS OF GALLBLADDER W/O CHOLECYSTITIS W/O OBSTRUCTION
[2019-01-26 16:16] VITALS: BMI 30.9
[2019-01-27] MEDS: ACETAMINOPHEN 325 MG TABLET (FP) PO PRN ×2 (01:59→20:29)
[2019-01-27] MEDS: oxyCODONE HCL 5 MG TABLET PO PRN ×4 (01:59→20:30)
[2019-01-27] MEDS: INSULIN SLIDING SCALE (NOVOLOG) 1 VIAL SQ SCH ×4 (06:25→22:34)
[2019-01-27] MEDS: FUROSEMIDE 40 MG TABLET (FP) PO SCH ×2 (06:26→14:09)
[2019-01-27] MEDS: GABAPENTIN 300 MG CAPSULE (FP) PO SCH ×3 (06:26→22:30)
[2019-01-27 07:32] LABS: CALCIUM 8.5 mg/dL (8.5-10.1); CREATININE 1.7 mg/dL (0.55-1.3); POTASSIUM 4.2 mmol/L (3.5-5.1)
[2019-01-27] MEDS: ALBUTEROL SO4 2.5/IPRATROPIUM 0.5 INH SOL 3 ML VIAL.NEB. NEB SCH ×4 (08:40→21:27)
[2019-01-27] MEDS ORDERED: PT OWN MED DRAWER 7, Y5N ONE (09:10)
[2019-01-27] MEDS: DIGOXIN 0.125 MG TABLET (FP) PO SCH (09:17)
[2019-01-27] MEDS: APIXABAN 5 MG TABLET PO SCH ×2 (09:17→22:29)
[2019-01-27] MEDS: METOPROLOL TARTRATE 50 MG TABLET (FP) PO SCH ×2 (09:17→22:29)
[2019-01-27] MEDS: PANTOPRAZOLE 20 MG TABLET (FP) PO SCH (09:18)
[2019-01-27] MEDS: BUDESONIDE/FORMETEROL FUMARATE 80/4.5 mcg INHALER IH SCH ×2 (09:18→22:46)
[2019-01-27] MEDS ORDERED: methylPREDNISolone NA SUCC 40 MG/1 ML VIAL IVPUSH SCH (10:00)
--- NOTE | 2019-01-27 10:32 | PN ---
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, Physician History of Present Illness: Pt seen and examined at bedside. She is awake and alert. She denies shortness of breath. She feels that the edema is improving. - Current Medication List Current Medications: Active Medications Acetaminophen (Tylenol -) 325 mg PO Q8H PRN PRN Reason: PAIN SCALE 6-10 Last Admin: 01/27/19 01:59 Dose: 325 mg Albuterol Sulfate (Ventolin 0.083% Nebulizer Soln -) 1 amp NEB Q4H PRN PRN Reason: SHORT OF BREATH/WHEEZING Albuterol/Ipratropium (Duoneb -) 1 amp NEB RQID [facility] Last Admin: 01/26/19 20:28 Dose: Not Given Apixaban (Eliquis -) 5 mg PO BID [facility] Last Admin: 01/27/19 09:17 Dose: 5 mg Budesonide/Formoterol Fumarate (Symbicort 80/4.5mcg -) 2 puff IH BID [facility] Last Admin: 01/27/19 09:18 Dose: 2 puff Bupropion HCl (Wellbutrin Xl -) 150 mg PO DAILY [facility] Last Admin: 01/27/19 09:16 Dose: 150 mg Digoxin (Lanoxin -) 0.125 mg PO DAILY [facility] Last Admin: 01/27/19 09:17 Dose: 0.125 mg Diltiazem HCl (Cardizem Cd -) 240 mg PO DAILY [facility] Last Admin: 01/27/19 09:17 Dose: 240 mg Docusate Sodium (Colace -) 100 mg PO BID [facility] Last Admin: 01/26/19 23:12 Dose: Not Given Furosemide (Lasix -) 40 mg PO BID@0600,1400 [facility] Last Admin: 01/27/19 06:26 Dose: 40 mg Gabapentin (Neurontin -) 300 mg PO TID [facility] Last Admin: 01/27/19 06:26 Dose: 300 mg Insulin Aspart (Novolog Vial Sliding Scale -) 1 vial SQ ACHS [facility]; Protocol Last Admin: 01/27/19 06:25 Dose: 2 units Methylprednisolone Sodium Succinate (Solu-Medrol -) 40 mg IVPUSH DAILY [facility] Last Admin: 01/27/19 09:16 Dose: 40 mg Metoprolol Tartrate (Lopressor Injection -) 5 mg IVPUSH Q4H PRN PRN Reason: HYPERTENSION Last Admin: 01/26/19 02:13 Dose: 5 mg Metoprolol Tartrate (Lopressor -) 200 mg PO BID [facility] Last Admin: 01/27/19 09:17 Dose: 200 mg Oxycodone HCl (Roxicodone -) 5 mg PO Q6H PRN PRN Reason: PAIN SCALE 6-10 Last Admin: 01/27/19 08:06 Dose: 5 mg Pantoprazole Sodium (Protonix -) 20 mg PO DAILY [facility] Last Admin: 01/27/19 09:18 Dose: 20 mg Polyethylene Glycol (Miralax (For Daily Use) -) 17 gm PO DAILY [facility] Last Admin: 01/26/19 10:12 Dose: 17 gm - Objective Vital Signs: Vital Signs Temperature 98 F 01/27/19 06:00 Pulse Rate 133 H 01/27/19 09:17 Respiratory Rate 18 01/27/19 06:00 Blood Pressure 132/92 01/27/19 06:00 O2 Sat by Pulse Oximetry (%) 95 01/26/19 21:00 Constitutional: Yes: Calm Eyes: Yes: Conjunctiva Clear HENT: Yes: Atraumatic Neck: Yes: Supple Cardiovascular: Yes: S1, S2 Respiratory: Yes: CTA Bilaterally Genitourinary: Yes: WNL Musculoskeletal: Yes: WNL Edema: Yes Edema: LLE: 1+, RLE: 1+ Neurological: Yes: Oriented Psychiatric: Yes: Oriented Labs: CBC, BMP 01/25/19 12:15 01/27/19 05:30 INR, PTT INR 1.82 (0.83-1.09) H 01/20/19 12:36 Problem List - Problems (1) JOSEPH (acute kidney injury) Code(s): N17.9 - ACUTE KIDNEY FAILURE, UNSPECIFIED Assessment/Plan Current Medications Generic Name Dose Route Start Last Admin Trade Name Freq PRN Reason Stop Dose Admin Acetaminophen 325 mg 01/20/19 18:21 01/27/19 01:59 Tylenol - PO 325 mg Q8H PRN Administration PAIN SCALE 6-10 Albuterol Sulfate 1 amp 01/20/19 14:37 Ventolin 0.083% Nebulizer Soln - NEB Q4H PRN SHORT OF BREATH/WHEEZING Albuterol/Ipratropium 1 amp 01/20/19 16:00 01/26/19 20:28 Duoneb - NEB Not Given RQID [facility] Apixaban 5 mg 01/20/19 22:00 01/27/19 09:17 Eliquis - PO 5 mg BID [facility] Administration Budesonide/Formoterol Fumarate 2 puff 01/20/19 22:00 01/27/19 09:18 Symbicort 80/4.5mcg - IH 2 puff BID [facility] Administration Bupropion HCl 150 mg 01/21/19 16:45 01/27/19 09:16 Wellbutrin Xl - PO 150 mg DAILY [facility] Administration Digoxin 0.125 mg 01/25/19 11:00 01/27/19 09:17 Lanoxin - PO 0.125 mg DAILY [facility] Administration Diltiazem HCl 240 mg 01/22/19 10:00 01/27/19 09:17 Cardizem Cd - PO 240 mg DAILY [facility] Administration Docusate Sodium 100 mg 01/21/19 22:00 01/26/19 23:12 Colace - PO Not Given BID [facility] Furosemide 40 mg 01/27/19 06:00 01/27/19 06:26 Lasix - PO 40 mg BID@0600,1400 [facility] Administration Gabapentin 300 mg 01/20/19 22:00 01/27/19 06:26 Neurontin - PO 300 mg TID [facility] Administration Insulin Aspart 1 vial 01/20/19 22:00 01/27/19 06:25 Novolog Vial Sliding Scale - SQ 2 units ACHS [facility] Administration Protocol Methylprednisolone Sodium Succinate 40 mg 01/27/19 10:00 01/27/19 09:16 Solu-Medrol - IVPUSH 40 mg DAILY [facility] Administration Metoprolol Tartrate 5 mg 01/22/19 12:58 01/26/19 02:13 Lopressor Injection - IVPUSH 5 mg Q4H PRN Administration HYPERTENSION Metoprolol Tartrate 200 mg 01/25/19 12:05 01/27/19 09:17 Lopressor - PO 200 mg BID [facility] Administration Oxycodone HCl 5 mg 01/22/19 12:08 01/27/19 08:06 Roxicodone - PO 5 mg Q6H PRN Administration PAIN SCALE 6-10 Pantoprazole Sodium 20 mg 01/27/19 10:00 01/27/19 09:18 Protonix - PO 20 mg DAILY [facility] Administration Polyethylene Glycol 17 gm 01/22/19 10:00 01/26/19 10:12 Miralax (For Daily Use) - PO 17 gm DAILY [facility] Administration Impression 1. CKD 2. CHF 3. a-fib 4. lower ext edema 5. COPD 6. active smoker Plan - cont lasix - volume status is improving - can come to office for renal workup, she is asking to go home today - monitor volume status - discussed plan with pt at length, also discussed diet
[2019-01-27] MEDS: DOCUSATE SODIUM 100 MG CAPSULE (FP) PO SCH ×2 (10:37→22:30)
--- NOTE | 2019-01-27 11:22 | PN ---
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, Physician Chief Complaint: JOSEPH Cholelithiasis ACUTE ON CHRONIC HYPERCAPNEIC RESP FAILURE COPD DIASTOLIC HF BL LOWER EXTREMITY EDEMA AFIB History of Present Illness: NAD wants to go home, extremely upset Daughter at bedside denies SOB - Current Medication List Current Medications: Active Medications Acetaminophen (Tylenol -) 325 mg PO Q8H PRN PRN Reason: PAIN SCALE 6-10 Last Admin: 01/27/19 01:59 Dose: 325 mg Albuterol Sulfate (Ventolin 0.083% Nebulizer Soln -) 1 amp NEB Q4H PRN PRN Reason: SHORT OF BREATH/WHEEZING Albuterol/Ipratropium (Duoneb -) 1 amp NEB RQID [facility] Last Admin: 01/26/19 20:28 Dose: Not Given Apixaban (Eliquis -) 5 mg PO BID [facility] Last Admin: 01/27/19 09:17 Dose: 5 mg Budesonide/Formoterol Fumarate (Symbicort 80/4.5mcg -) 2 puff IH BID [facility] Last Admin: 01/27/19 09:18 Dose: 2 puff Bupropion HCl (Wellbutrin Xl -) 150 mg PO DAILY [facility] Last Admin: 01/27/19 09:16 Dose: 150 mg Digoxin (Lanoxin -) 0.125 mg PO DAILY [facility] Last Admin: 01/27/19 09:17 Dose: 0.125 mg Diltiazem HCl (Cardizem Cd -) 240 mg PO DAILY [facility] Last Admin: 01/27/19 09:17 Dose: 240 mg Docusate Sodium (Colace -) 100 mg PO BID [facility] Last Admin: 01/26/19 23:12 Dose: Not Given Furosemide (Lasix -) 40 mg PO BID@0600,1400 [facility] Last Admin: 01/27/19 06:26 Dose: 40 mg Gabapentin (Neurontin -) 300 mg PO TID [facility] Last Admin: 01/27/19 06:26 Dose: 300 mg Insulin Aspart (Novolog Vial Sliding Scale -) 1 vial SQ ACHS [facility]; Protocol Last Admin: 01/27/19 06:25 Dose: 2 units Methylprednisolone Sodium Succinate (Solu-Medrol -) 40 mg IVPUSH DAILY [facility] Last Admin: 01/27/19 09:16 Dose: 40 mg Metoprolol Tartrate (Lopressor Injection -) 5 mg IVPUSH Q4H PRN PRN Reason: HYPERTENSION Last Admin: 01/26/19 02:13 Dose: 5 mg Metoprolol Tartrate (Lopressor -) 200 mg PO BID [facility] Last Admin: 01/27/19 09:17 Dose: 200 mg Oxycodone HCl (Roxicodone -) 5 mg PO Q6H PRN PRN Reason: PAIN SCALE 6-10 Last Admin: 01/27/19 08:06 Dose: 5 mg Pantoprazole Sodium (Protonix -) 20 mg PO DAILY [facility] Last Admin: 01/27/19 09:18 Dose: 20 mg Polyethylene Glycol (Miralax (For Daily Use) -) 17 gm PO DAILY [facility] Last Admin: 01/26/19 10:12 Dose: 17 gm - Objective Vital Signs: Vital Signs Temperature 98 F 01/27/19 06:00 Pulse Rate 133 H 01/27/19 09:17 Respiratory Rate 18 01/27/19 06:00 Blood Pressure 132/92 01/27/19 06:00 O2 Sat by Pulse Oximetry (%) 95 01/26/19 21:00 Constitutional: Yes: Well Nourished, No Distress, Anxious Cardiovascular: Yes: Tachycardia, Pulse Irregular Respiratory: Yes: Regular Gastrointestinal: Yes: WNL Musculoskeletal: Yes: WNL Extremities: Yes: WNL Edema: No Peripheral Pulses WNL: Yes Neurological: Yes: Alert, Oriented Psychiatric: Yes: Alert, Oriented, Agitated Labs: CBC, BMP 01/25/19 12:15 01/27/19 05:30 INR, PTT INR 1.82 (0.83-1.09) H 01/20/19 12:36 Problem List - Problems (1) Thrombocytopenia Assessment/Plan: -Unsure of the cause -stable at this time -No splenomegaly on abd CT -Hematology consult Code(s): D69.6 - THROMBOCYTOPENIA, UNSPECIFIED Assessment/Plan (1) Acute on chronic diastolic (congestive) heart failure Assessment/Plan: -Cardiology consult -1L fluid restriction -daily weights -Lasix 40 mg po BID -BB and CCB Code(s): I50.33 - ACUTE ON CHRONIC DIASTOLIC (CONGESTIVE) HEART FAILURE (2) Afib Assessment/Plan: -continue Eliquis Code(s): I48.91 - UNSPECIFIED ATRIAL FIBRILLATION Qualifiers: Atrial fibrillation type: unspecified Qualified Code(s): I48.91 - Unspecified atrial fibrillation (3) CKD (chronic kidney disease) Assessment/Plan: -monitor renal function -renal consult Code(s): N18.9 - CHRONIC KIDNEY DISEASE, UNSPECIFIED (4) Hypertension Assessment/Plan: -continue Cardizem and Atenolol -low Na diet Code(s): I10 - ESSENTIAL (PRIMARY) HYPERTENSION (5) COPD (chronic obstructive pulmonary disease) Assessment/Plan: -Symbicort -IV medrol changed to prednisone 40 mg PO daily -bronchodilators -Keep SpO2 >90% -O2 via NC -Bipap HS -pulm on board Code(s): J44.9 - CHRONIC OBSTRUCTIVE PULMONARY DISEASE, UNSPECIFIED Qualifiers: (6) Respiratory acidosis Assessment/Plan: -Pulm on board -Bipap QHS Code(s): E87.2 - ACIDOSIS
--- NOTE | 2019-01-27 11:37 | PN ---
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, Physician History of Present Illness: PULMONARY ALERT,OOB-CHAIR,FEELING BETTET,-RESP DISTRESS. O2 SAT 95% ON RA. WT 180LBS - Current Medication List Current Medications: Active Medications Acetaminophen (Tylenol -) 325 mg PO Q8H PRN PRN Reason: PAIN SCALE 6-10 Last Admin: 01/27/19 01:59 Dose: 325 mg Albuterol Sulfate (Ventolin 0.083% Nebulizer Soln -) 1 amp NEB Q4H PRN PRN Reason: SHORT OF BREATH/WHEEZING Albuterol/Ipratropium (Duoneb -) 1 amp NEB RQID [facility] Last Admin: 01/26/19 20:28 Dose: Not Given Apixaban (Eliquis -) 5 mg PO BID [facility] Last Admin: 01/27/19 09:17 Dose: 5 mg Budesonide/Formoterol Fumarate (Symbicort 80/4.5mcg -) 2 puff IH BID [facility] Last Admin: 01/27/19 09:18 Dose: 2 puff Bupropion HCl (Wellbutrin Xl -) 150 mg PO DAILY [facility] Last Admin: 01/27/19 09:16 Dose: 150 mg Digoxin (Lanoxin -) 0.125 mg PO DAILY [facility] Last Admin: 01/27/19 09:17 Dose: 0.125 mg Diltiazem HCl (Cardizem Cd -) 240 mg PO DAILY [facility] Last Admin: 01/27/19 09:17 Dose: 240 mg Docusate Sodium (Colace -) 100 mg PO BID [facility] Last Admin: 01/26/19 23:12 Dose: Not Given Furosemide (Lasix -) 40 mg PO BID@0600,1400 [facility] Last Admin: 01/27/19 06:26 Dose: 40 mg Gabapentin (Neurontin -) 300 mg PO TID [facility] Last Admin: 01/27/19 06:26 Dose: 300 mg Insulin Aspart (Novolog Vial Sliding Scale -) 1 vial SQ ACHS [facility]; Protocol Last Admin: 01/27/19 06:25 Dose: 2 units Methylprednisolone Sodium Succinate (Solu-Medrol -) 40 mg IVPUSH DAILY [facility] Last Admin: 01/27/19 09:16 Dose: 40 mg Metoprolol Tartrate (Lopressor Injection -) 5 mg IVPUSH Q4H PRN PRN Reason: HYPERTENSION Last Admin: 01/26/19 02:13 Dose: 5 mg Metoprolol Tartrate (Lopressor -) 200 mg PO BID [facility] Last Admin: 01/27/19 09:17 Dose: 200 mg Oxycodone HCl (Roxicodone -) 5 mg PO Q6H PRN PRN Reason: PAIN SCALE 6-10 Last Admin: 01/27/19 08:06 Dose: 5 mg Pantoprazole Sodium (Protonix -) 20 mg PO DAILY [facility] Last Admin: 01/27/19 09:18 Dose: 20 mg Polyethylene Glycol (Miralax (For Daily Use) -) 17 gm PO DAILY [facility] Last Admin: 01/26/19 10:12 Dose: 17 gm - Objective Vital Signs: Vital Signs Temperature 98 F 01/27/19 06:00 Pulse Rate 133 H 01/27/19 09:17 Respiratory Rate 18 01/27/19 06:00 Blood Pressure 132/92 01/27/19 06:00 O2 Sat by Pulse Oximetry (%) 95 01/26/19 21:00 Constitutional: Yes: Well Nourished, Calm Eyes: Yes: WNL HENT: Yes: WNL Neck: Yes: WNL Cardiovascular: Yes: Pulse Irregular, S1, S2 Respiratory: Yes: Diminished Gastrointestinal: Yes: Normal Bowel Sounds, Soft Extremities: Yes: WNL Edema: Yes Labs: 01/27/19 05:30 INR, PTT INR 1.82 (0.83-1.09) H 01/20/19 12:36 Assessment/Plan IMP ACUTE ON CHRONIC HYPERCAPNEIC RESPIRATORY FAILURE IMPROVING LIKELY COPD EXACERBATION IMPROVING DIASTOLIC HF LOWER EXTREMITY EDEMA AFIB WITH RVR LIKELY TANISHA OBESITY ACUTE ON CHRONIC KIDNEY INJURY IMPROVING THROMBOCYTOPENIA SMOKER PLAN INHALED BRONCHODILATORS O2 BIPAP NEEDED F/U ABG ON RA PRENISONE MONITOR LYTES,RENAL FUNCTION DAILY WT SMOKING CESSATION PFTS OUTPATIENT SLEEP STUDIES OUTPATIENT F/U CHEST CT OUTPATIENT DR ROLLE
[2019-01-27] MEDS: POLYETHYLENE GLYCOL 3350 119 GM BTL PO SCH (12:21)
[2019-01-27 14:09] LABS: ARTERIAL BLD GAS O2 SATURATION 91.9 % (95-98); ARTERIAL BLOOD GAS PCO2 48.9 mmHg (35-45); ARTERIAL BLOOD GAS PO2 64.7 mmHg (80-105); ARTERIAL BLOOD GAS pH 7.46 (7.35-7.45)
[2019-01-27 14:22] LABS: ALLENS TEST POSITIVE
--- NOTE | 2019-01-27 15:35 | PN ---
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, Physician Chief Complaint: No dyspnea. Telem AF RVR 130s Upset. History of Present Illness: 58-year-old woman with a PMHx of HTN, DM, persistent atrial fibrillation on Eliquis, chronic diastolic CHF, CKD, COPD, chronic leg swelling presented to ED with 2 days of progressively worsening bilateral leg edema and pain. She was found to have elevated BUN/Creat. BNP is elevate, but lower than before. LE duplex 01/20/19 showed no DVT. CXR 01/20/19 revealed cardiomegaly without acute pulmonary process. CT head showed central atrophy and microvascular ischemic changes. Atenolol dose was decreased based on her renal function. Her ventricular rate becomes rapid, up to 150s. The patient has no acute distress and denies palpitation, dizziness, chest pain or SOB. Echocardiogram 01/12/2019: Normal LV size with asymmetric hypertrophy and normal systolic function. LVEF 55%. Normal LA and RA in size. Mild to moderate AI. Trace MR. Mild TR. No pulm HTN. - Current Medication List Current Medications: Active Medications Acetaminophen (Tylenol -) 325 mg PO Q8H PRN PRN Reason: PAIN SCALE 6-10 Last Admin: 01/27/19 01:59 Dose: 325 mg Albuterol Sulfate (Ventolin 0.083% Nebulizer Soln -) 1 amp NEB Q4H PRN PRN Reason: SHORT OF BREATH/WHEEZING Albuterol/Ipratropium (Duoneb -) 1 amp NEB RQID [facility] Last Admin: 01/27/19 12:38 Dose: Not Given Apixaban (Eliquis -) 5 mg PO BID [facility] Last Admin: 01/27/19 09:17 Dose: 5 mg Budesonide/Formoterol Fumarate (Symbicort 80/4.5mcg -) 2 puff IH BID [facility] Last Admin: 01/27/19 09:18 Dose: 2 puff Bupropion HCl (Wellbutrin Xl -) 150 mg PO DAILY [facility] Last Admin: 01/27/19 09:16 Dose: 150 mg Digoxin (Lanoxin -) 0.125 mg PO DAILY [facility] Last Admin: 01/27/19 09:17 Dose: 0.125 mg Diltiazem HCl (Cardizem Cd -) 240 mg PO DAILY [facility] Last Admin: 01/27/19 09:17 Dose: 240 mg Docusate Sodium (Colace -) 100 mg PO BID [facility] Last Admin: 01/26/19 23:12 Dose: Not Given Furosemide (Lasix -) 40 mg PO BID@0600,1400 [facility] Last Admin: 01/27/19 14:09 Dose: 40 mg Gabapentin (Neurontin -) 300 mg PO TID [facility] Last Admin: 01/27/19 14:09 Dose: 300 mg Insulin Aspart (Novolog Vial Sliding Scale -) 1 vial SQ ACHS [facility]; Protocol Last Admin: 01/27/19 12:21 Dose: Not Given Metoprolol Tartrate (Lopressor -) 200 mg PO BID [facility] Last Admin: 01/27/19 09:17 Dose: 200 mg Metoprolol Tartrate (Lopressor Injection -) 5 mg IVPUSH Q4H PRN PRN Reason: HYPERTENSION Oxycodone HCl (Roxicodone -) 5 mg PO Q6H PRN PRN Reason: PAIN SCALE 6-10 Last Admin: 01/27/19 14:09 Dose: 5 mg Pantoprazole Sodium (Protonix -) 20 mg PO DAILY [facility] Last Admin: 01/27/19 09:18 Dose: 20 mg Polyethylene Glycol (Miralax (For Daily Use) -) 17 gm PO DAILY [facility] Last Admin: 01/27/19 12:21 Dose: Not Given Prednisone (Deltasone -) 40 mg PO DAILY [facility] - Objective Vital Signs: Vital Signs Temperature 98 F 01/27/19 06:00 Pulse Rate 133 H 01/27/19 09:17 Respiratory Rate 18 01/27/19 06:00 Blood Pressure 132/92 01/27/19 06:00 O2 Sat by Pulse Oximetry (%) 95 01/26/19 21:00 Constitutional: Yes: Well Nourished, No Distress Eyes: Yes: Conjunctiva Clear, EOM Intact HENT: Yes: Atraumatic, Normocephalic Neck: Yes: Supple, Trachea Midline Cardiovascular: Yes: Pulse Irregular. No: JVD Respiratory: Yes: Regular, CTA Bilaterally Edema: Yes Edema: LLE: 1+, RLE: 1+ Labs: CBC, BMP 01/25/19 12:15 01/27/19 05:30 INR, PTT INR 1.82 (0.83-1.09) H 01/20/19 12:36 Problem List - Problems (1) JOSEPH (acute kidney injury) Code(s): N17.9 - ACUTE KIDNEY FAILURE, UNSPECIFIED (2) Acute on chronic diastolic (congestive) heart failure Code(s): I50.33 - ACUTE ON CHRONIC DIASTOLIC (CONGESTIVE) HEART FAILURE (3) Afib Code(s): I48.91 - UNSPECIFIED ATRIAL FIBRILLATION Qualifiers: Atrial fibrillation type: unspecified Qualified Code(s): I48.91 - Unspecified atrial fibrillation Assessment/Plan 58-year-old woman with a PMHx of HTN, DM, persistent atrial fibrillation on Eliquis, chronic diastolic CHF, CKD, COPD, chronic leg swelling presented to ED with 2 days of progressively worsening bilateral leg edema and pain. She was found to have elevated BUN/Creat. BNP is elevate, but lower than before. LE duplex 01/20/19 showed no DVT. CXR 01/20/19 revealed cardiomegaly without acute pulmonary process. CT head showed central atrophy and microvascular ischemic changes. Atenolol dose was decreased based on her renal function. Her ventricular rate becomes rapid, up to 150s. The patient has no acute distress and denies palpitation, dizziness, chest pain or SOB. Echocardiogram 01/12/2019: Normal LV size with asymmetric hypertrophy and normal systolic function. LVEF 55%. Normal LA and RA in size. Mild to moderate AI. Trace MR. Mild TR. No pulm HTN. 1) Persistent atrial fibrillation with rapid VR after decrease atenolol based on her renal function. -VR control: --despite trying to uptitrate her AVN therapy, she still is tachy. Would recommend cardioversion given difficulty in rate control in addition to adverse effects from medications. She should be transferred to tertiary institution with arrhythmia consultation support since she will likely need antiarrhythmic therapy. I discussed this with the patient in detail. She was upset and did not want to be transferred. She may sign out AMA. --If she declines cardioversion, suggest: Change Diltiazem to Verapamil 80mg TID. Continue Digoxin and Metoprolol. Options are limited.
[2019-01-27] MEDS: METOPROLOL TARTRATE 5 MG/5 ML VIAL IVPUSH PRN (17:38)
[2019-01-28] MEDS: oxyCODONE HCL 5 MG TABLET PO PRN ×3 (03:07→18:25)
[2019-01-28] MEDS: GABAPENTIN 300 MG CAPSULE (FP) PO SCH ×3 (05:58→21:55)
[2019-01-28] MEDS: FUROSEMIDE 40 MG TABLET (FP) PO SCH ×2 (05:58→13:28)
[2019-01-28] MEDS: INSULIN SLIDING SCALE (NOVOLOG) 1 VIAL SQ SCH ×4 (06:27→21:55)
[2019-01-28] MEDS: ALBUTEROL SO4 2.5/IPRATROPIUM 0.5 INH SOL 3 ML VIAL.NEB. NEB SCH ×2 (07:30→11:05)
[2019-01-28] MEDS: BUDESONIDE/FORMETEROL FUMARATE 80/4.5 mcg INHALER IH SCH ×2 (10:00→21:56)
[2019-01-28] MEDS: DIGOXIN 0.125 MG TABLET (FP) PO SCH (10:15)
[2019-01-28] MEDS: POLYETHYLENE GLYCOL 3350 119 GM BTL PO SCH (10:15)
[2019-01-28] MEDS: predniSONE 20 MG TABLET (UD) PO SCH (10:16)
[2019-01-28] MEDS: APIXABAN 5 MG TABLET PO SCH ×2 (10:16→21:55)
[2019-01-28] MEDS: PANTOPRAZOLE 20 MG TABLET (FP) PO SCH (10:16)
[2019-01-28] MEDS: DOCUSATE SODIUM 100 MG CAPSULE (FP) PO SCH ×2 (10:16→21:55)
[2019-01-28] MEDS: METOPROLOL TARTRATE 50 MG TABLET (FP) PO SCH ×2 (10:17→21:55)
--- NOTE | 2019-01-28 11:53 | PN ---
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, Physician History of Present Illness: Pt seen and examined at bedside. She is awake and alert. She denies shortness of breath. She was going to sign out ama however is now going to stay. - Current Medication List Current Medications: Active Medications Acetaminophen (Tylenol -) 325 mg PO Q8H PRN PRN Reason: PAIN SCALE 6-10 Last Admin: 01/27/19 20:29 Dose: 325 mg Albuterol Sulfate (Ventolin 0.083% Nebulizer Soln -) 1 amp NEB Q4H PRN PRN Reason: SHORT OF BREATH/WHEEZING Albuterol/Ipratropium (Duoneb -) 1 amp NEB RQID [facility] Last Admin: 01/28/19 11:05 Dose: Not Given Apixaban (Eliquis -) 5 mg PO BID [facility] Last Admin: 01/28/19 10:16 Dose: 5 mg Budesonide/Formoterol Fumarate (Symbicort 80/4.5mcg -) 2 puff IH BID [facility] Last Admin: 01/27/19 22:46 Dose: 2 puff Bupropion HCl (Wellbutrin Xl -) 150 mg PO DAILY [facility] Last Admin: 01/28/19 10:15 Dose: 150 mg Digoxin (Lanoxin -) 0.125 mg PO DAILY [facility] Last Admin: 01/28/19 10:15 Dose: 0.125 mg Diltiazem HCl (Cardizem Cd -) 240 mg PO DAILY [facility] Last Admin: 01/28/19 10:16 Dose: 240 mg Docusate Sodium (Colace -) 100 mg PO BID [facility] Last Admin: 01/28/19 10:16 Dose: 100 mg Furosemide (Lasix -) 40 mg PO BID@0600,1400 [facility] Last Admin: 01/28/19 05:58 Dose: 40 mg Gabapentin (Neurontin -) 300 mg PO TID [facility] Last Admin: 01/28/19 05:58 Dose: 300 mg Insulin Aspart (Novolog Vial Sliding Scale -) 1 vial SQ ACHS [facility]; Protocol Last Admin: 01/28/19 06:27 Dose: 2 units Metoprolol Tartrate (Lopressor -) 200 mg PO BID [facility] Last Admin: 01/28/19 10:17 Dose: 200 mg Metoprolol Tartrate (Lopressor Injection -) 5 mg IVPUSH Q4H PRN PRN Reason: HYPERTENSION Last Admin: 01/27/19 17:38 Dose: 5 mg Oxycodone HCl (Roxicodone -) 5 mg PO Q6H PRN PRN Reason: PAIN SCALE 6-10 Last Admin: 01/28/19 09:12 Dose: 5 mg Pantoprazole Sodium (Protonix -) 20 mg PO DAILY [facility] Last Admin: 01/28/19 10:16 Dose: 20 mg Polyethylene Glycol (Miralax (For Daily Use) -) 17 gm PO DAILY [facility] Last Admin: 01/27/19 12:21 Dose: Not Given Prednisone (Deltasone -) 40 mg PO DAILY [facility] Last Admin: 01/28/19 10:16 Dose: 40 mg - Objective Vital Signs: Vital Signs Temperature 98.3 F 01/28/19 10:00 Pulse Rate 118 H 01/28/19 10:15 Respiratory Rate 22 H 01/28/19 10:00 Blood Pressure 149/73 01/28/19 10:00 O2 Sat by Pulse Oximetry (%) 95 01/28/19 09:00 Constitutional: Yes: Calm Eyes: Yes: Conjunctiva Clear HENT: Yes: Atraumatic Neck: Yes: Supple Cardiovascular: Yes: S1, S2 Respiratory: Yes: CTA Bilaterally Gastrointestinal: Yes: Soft Genitourinary: Yes: WNL Musculoskeletal: Yes: WNL Edema: Yes Edema: LLE: 1+, RLE: 1+ Neurological: Yes: Oriented Psychiatric: Yes: Agitated Labs: CBC, BMP 01/25/19 12:15 01/27/19 05:30 INR, PTT INR 1.82 (0.83-1.09) H 01/20/19 12:36 Problem List - Problems (1) JOSEPH (acute kidney injury) Code(s): N17.9 - ACUTE KIDNEY FAILURE, UNSPECIFIED Assessment/Plan Current Medications Generic Name Dose Route Start Last Admin Trade Name Freq PRN Reason Stop Dose Admin Acetaminophen 325 mg 01/20/19 18:21 01/27/19 20:29 Tylenol - PO 325 mg Q8H PRN Administration PAIN SCALE 6-10 Albuterol Sulfate 1 amp 01/20/19 14:37 Ventolin 0.083% Nebulizer Soln - NEB Q4H PRN SHORT OF BREATH/WHEEZING Albuterol/Ipratropium 1 amp 01/20/19 16:00 01/28/19 11:05 Duoneb - NEB Not Given RQID [facility]OL[facility] Apixaban 5 mg 01/20/19 22:00 01/28/19 10:16 Eliquis - PO 5 mg BID [facility] Administration Budesonide/Formoterol Fumarate 2 puff 01/20/19 22:00 01/27/19 22:46 Symbicort 80/4.5mcg - IH 2 puff BID [facility] Administration Bupropion HCl 150 mg 01/21/19 16:45 01/28/19 10:15 Wellbutrin Xl - PO 150 mg DAILY [facility] Administration Digoxin 0.125 mg 01/25/19 11:00 01/28/19 10:15 Lanoxin - PO 0.125 mg DAILY [facility] Administration Docusate Sodium 100 mg 01/21/19 22:00 01/28/19 10:16 Colace - PO 100 mg BID [facility] Administration Furosemide 40 mg 01/27/19 06:00 01/28/19 05:58 Lasix - PO 40 mg BID@0600,1400 [facility] Administration Gabapentin 300 mg 01/20/19 22:00 01/28/19 05:58 Neurontin - PO 300 mg TID [facility] Administration Insulin Aspart 1 vial 01/20/19 22:00 01/28/19 06:27 Novolog Vial Sliding Scale - SQ 2 units ACHS [facility] Administration Protocol Metoprolol Tartrate 200 mg 01/25/19 12:05 01/28/19 10:17 Lopressor - PO 200 mg BID [facility] Administration Metoprolol Tartrate 5 mg 01/27/19 12:10 01/27/19 17:38 Lopressor Injection - IVPUSH 5 mg Q4H PRN Administration HYPERTENSION Oxycodone HCl 5 mg 01/22/19 12:08 01/28/19 09:12 Roxicodone - PO 5 mg Q6H PRN Administration PAIN SCALE 6-10 Pantoprazole Sodium 20 mg 01/27/19 10:00 01/28/19 10:16 Protonix - PO 20 mg DAILY [facility] Administration Polyethylene Glycol 17 gm 01/22/19 10:00 01/27/19 12:21 Miralax (For Daily Use) - PO Not Given DAILY [facility] Prednisone 40 mg 01/28/19 10:00 01/28/19 10:16 Deltasone - PO 40 mg DAILY [facility] Administration Impression 1. CKD 2. CHF 3. a-fib 4. lower ext edema 5. COPD 6. active smoker Plan - check bmp - cont with lasix - cardio input appreciated - pt now agrees to stay in the hospital for management - monitor volume status - discussed plan with pt at length
--- NOTE | 2019-01-28 12:00 | PN ---
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, Physician Chief Complaint: patient seen and examined she wanted to sign out AMA i convinced her to stay and try out the verampamil medication she agrees to try it - Current Medication List Current Medications: Active Medications Acetaminophen (Tylenol -) 325 mg PO Q8H PRN PRN Reason: PAIN SCALE 6-10 Last Admin: 01/27/19 20:29 Dose: 325 mg Albuterol Sulfate (Ventolin 0.083% Nebulizer Soln -) 1 amp NEB Q4H PRN PRN Reason: SHORT OF BREATH/WHEEZING Albuterol/Ipratropium (Duoneb -) 1 amp NEB RQID [facility] Last Admin: 01/28/19 11:05 Dose: Not Given Apixaban (Eliquis -) 5 mg PO BID [facility] Last Admin: 01/28/19 10:16 Dose: 5 mg Budesonide/Formoterol Fumarate (Symbicort 80/4.5mcg -) 2 puff IH BID [facility] Last Admin: 01/27/19 22:46 Dose: 2 puff Bupropion HCl (Wellbutrin Xl -) 150 mg PO DAILY [facility] Last Admin: 01/28/19 10:15 Dose: 150 mg Digoxin (Lanoxin -) 0.125 mg PO DAILY [facility] Last Admin: 01/28/19 10:15 Dose: 0.125 mg Docusate Sodium (Colace -) 100 mg PO BID [facility] Last Admin: 01/28/19 10:16 Dose: 100 mg Furosemide (Lasix -) 40 mg PO BID@0600,1400 [facility] Last Admin: 01/28/19 05:58 Dose: 40 mg Gabapentin (Neurontin -) 300 mg PO TID [facility] Last Admin: 01/28/19 05:58 Dose: 300 mg Insulin Aspart (Novolog Vial Sliding Scale -) 1 vial SQ ACHS [facility]; Protocol Last Admin: 01/28/19 11:53 Dose: Not Given Metoprolol Tartrate (Lopressor -) 200 mg PO BID [facility] Last Admin: 01/28/19 10:17 Dose: 200 mg Metoprolol Tartrate (Lopressor Injection -) 5 mg IVPUSH Q4H PRN PRN Reason: HYPERTENSION Last Admin: 01/27/19 17:38 Dose: 5 mg Oxycodone HCl (Roxicodone -) 5 mg PO Q6H PRN PRN Reason: PAIN SCALE 6-10 Last Admin: 01/28/19 09:12 Dose: 5 mg Pantoprazole Sodium (Protonix -) 20 mg PO DAILY [facility] Last Admin: 01/28/19 10:16 Dose: 20 mg Polyethylene Glycol (Miralax (For Daily Use) -) 17 gm PO DAILY [facility] Last Admin: 01/28/19 10:15 Dose: Not Given Prednisone (Deltasone -) 40 mg PO DAILY [facility] Last Admin: 01/28/19 10:16 Dose: 40 mg Verapamil HCl (Calan -) 80 mg PO TID [facility] - Objective Vital Signs: Vital Signs Temperature 98.3 F 01/28/19 10:00 Pulse Rate 118 H 01/28/19 10:15 Respiratory Rate 22 H 01/28/19 10:00 Blood Pressure 149/73 01/28/19 10:00 O2 Sat by Pulse Oximetry (%) 95 01/28/19 09:00 Constitutional: Yes: Anxious Neck: Yes: Trachea Midline Cardiovascular: Yes: Tachycardia, S1, S2 Respiratory: Yes: CTA Bilaterally Gastrointestinal: Yes: Normal Bowel Sounds, Soft Edema: Yes Edema: LLE: 2+, RLE: 2+ Neurological: Yes: Alert, Oriented Labs: CBC, BMP 01/25/19 12:15 01/27/19 05:30 INR, PTT INR 1.82 (0.83-1.09) H 01/20/19 12:36 Problem List - Problems (1) Afib Assessment/Plan: eliqius metoprolol 200mg bid loaded with digoxin now on daily dig dose cardizem dose decreased to 240mg and changed to verampamil tid patient not agreeing right now for transfer for cardioversion monitor HR- still tacycardic Code(s): I48.91 - UNSPECIFIED ATRIAL FIBRILLATION Qualifiers: Atrial fibrillation type: unspecified Qualified Code(s): I48.91 - Unspecified atrial fibrillation (2) JOSEPH (acute kidney injury) Assessment/Plan: renal function trending down 2.6-2.3-1.9 now 1.7-repeat creatinine today renal sono no hydronephrosis oral bid lasix Code(s): N17.9 - ACUTE KIDNEY FAILURE, UNSPECIFIED (3) Gallstones Assessment/Plan: ct scan abdomen no contrast- cholelithasis - patient not symptomatic cannot get MRCP wants opem MRI can be done outpatient GI consult noted Code(s): K80.20 - CALCULUS OF GALLBLADDER W/O CHOLECYSTITIS W/O OBSTRUCTION (4) Leg swelling Assessment/Plan: lasix bid oral no dvt in LE Code(s): M79.89 - OTHER SPECIFIED SOFT TISSUE DISORDERS (5) Acute on chronic diastolic (congestive) heart failure Assessment/Plan: iv lasix now change to po lasix bid Code(s): I50.33 - ACUTE ON CHRONIC DIASTOLIC (CONGESTIVE) HEART FAILURE (6) Constipation Assessment/Plan: suppository mirlaax enema GI eval noted Code(s): K59.00 - CONSTIPATION, UNSPECIFIED (7) Acute and chronic respiratory failure Assessment/Plan: medrol q8hr now change to po prednisone nebulizer Code(s): J96.20 - ACUTE AND CHR RESP FAILURE, UNSP W HYPOXIA OR HYPERCAPNIA
[2019-01-28] MEDS ORDERED: ALBUTEROL SO4 2.5/IPRATROPIUM 0.5 INH SOL 3 ML VIAL.NEB. NEB PRN (12:50)
--- NOTE | 2019-01-28 12:50 | PN ---
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 (short form) - Note 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: PULMONARY States breathing is better. Heart rates rapid. No chest pain. Vital Signs Period Temp Pulse Resp BP Sys/Salgado Pulse Ox Last 24 Hr 97.6 F-98.3 F 103-146 18-22 139-156/73-114 94-95 Gen: mildly tachypneic at rest Heart: tachycardic, irregular Lung: distant breath sounds Abd: soft, nontender Ext: + edema CBC, BMP 01/25/19 12:15 01/27/19 05:30 Active Medications Acetaminophen (Tylenol -) 325 mg PO Q8H PRN PRN Reason: PAIN SCALE 6-10 Last Admin: 01/27/19 20:29 Dose: 325 mg Albuterol Sulfate (Ventolin 0.083% Nebulizer Soln -) 1 amp NEB Q4H PRN PRN Reason: SHORT OF BREATH/WHEEZING Albuterol/Ipratropium (Duoneb -) 1 amp NEB RQID [facility] Last Admin: 01/28/19 11:05 Dose: Not Given Apixaban (Eliquis -) 5 mg PO BID [facility] Last Admin: 01/28/19 10:16 Dose: 5 mg Budesonide/Formoterol Fumarate (Symbicort 80/4.5mcg -) 2 puff IH BID [facility] Last Admin: 01/27/19 22:46 Dose: 2 puff Bupropion HCl (Wellbutrin Xl -) 150 mg PO DAILY [facility] Last Admin: 01/28/19 10:15 Dose: 150 mg Digoxin (Lanoxin -) 0.125 mg PO DAILY [facility] Last Admin: 01/28/19 10:15 Dose: 0.125 mg Docusate Sodium (Colace -) 100 mg PO BID [facility] Last Admin: 01/28/19 10:16 Dose: 100 mg Furosemide (Lasix -) 40 mg PO BID@0600,1400 [facility] Last Admin: 01/28/19 05:58 Dose: 40 mg Gabapentin (Neurontin -) 300 mg PO TID [facility] Last Admin: 01/28/19 05:58 Dose: 300 mg Insulin Aspart (Novolog Vial Sliding Scale -) 1 vial SQ ACHS [facility]; Protocol Last Admin: 01/28/19 11:53 Dose: Not Given Metoprolol Tartrate (Lopressor -) 200 mg PO BID [facility] Last Admin: 01/28/19 10:17 Dose: 200 mg Metoprolol Tartrate (Lopressor Injection -) 5 mg IVPUSH Q4H PRN PRN Reason: HYPERTENSION Last Admin: 01/27/19 17:38 Dose: 5 mg Oxycodone HCl (Roxicodone -) 5 mg PO Q6H PRN PRN Reason: PAIN SCALE 6-10 Last Admin: 01/28/19 09:12 Dose: 5 mg Pantoprazole Sodium (Protonix -) 20 mg PO DAILY [facility] Last Admin: 01/28/19 10:16 Dose: 20 mg Polyethylene Glycol (Miralax (For Daily Use) -) 17 gm PO DAILY [facility] Last Admin: 01/28/19 10:15 Dose: Not Given Prednisone (Deltasone -) 40 mg PO DAILY [facility] Last Admin: 01/28/19 10:16 Dose: 40 mg Verapamil HCl (Calan -) 80 mg PO ONCE ONE Stop: 01/28/19 14:01 A/P Acute on Chronic Hypercapneic Respiratory Failure improving Acute COPD Exacerbation Acute on Chronic Diastolic Heart Failure Atrial Fibrillation with RVR Acute on Chronic Renal Failure Thrombocytopenia Smoker - prednisone taper - will make inhaled bronchodilators as needed for better rate control - O2 to keep SpO2 >90% - rate control per cardiology - continue anticoagulation - continue lasix - monitor urine output, creatinine - continue telemetry monitoring
[2019-01-28] MEDS ORDERED: VERAPAMIL HCL 80 MG TABLET PO ONE (14:00)
--- NOTE | 2019-01-28 16:05 | PN ---
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, Physician Chief Complaint: No dyspnea. Telem AF HR 90s History of Present Illness: 58-year-old woman with a PMHx of HTN, DM, persistent atrial fibrillation on Eliquis, chronic diastolic CHF, CKD, COPD, chronic leg swelling presented to ED with 2 days of progressively worsening bilateral leg edema and pain. She was found to have elevated BUN/Creat. BNP is elevate, but lower than before. LE duplex 01/20/19 showed no DVT. CXR 01/20/19 revealed cardiomegaly without acute pulmonary process. CT head showed central atrophy and microvascular ischemic changes. Atenolol dose was decreased based on her renal function. Her ventricular rate becomes rapid, up to 150s. The patient has no acute distress and denies palpitation, dizziness, chest pain or SOB. Echocardiogram 01/12/2019: Normal LV size with asymmetric hypertrophy and normal systolic function. LVEF 55%. Normal LA and RA in size. Mild to moderate AI. Trace MR. Mild TR. No pulm HTN. - Current Medication List Current Medications: Active Medications Acetaminophen (Tylenol -) 325 mg PO Q8H PRN PRN Reason: PAIN SCALE 6-10 Last Admin: 01/27/19 20:29 Dose: 325 mg Albuterol/Ipratropium (Duoneb -) 1 amp NEB Q6H PRN PRN Reason: SHORT OF BREATH/WHEEZING Apixaban (Eliquis -) 5 mg PO BID [facility] Last Admin: 01/28/19 10:16 Dose: 5 mg Budesonide/Formoterol Fumarate (Symbicort 80/4.5mcg -) 2 puff IH BID [facility] Last Admin: 01/28/19 10:00 Dose: 2 puff Bupropion HCl (Wellbutrin Xl -) 150 mg PO DAILY [facility] Last Admin: 01/28/19 10:15 Dose: 150 mg Digoxin (Lanoxin -) 0.125 mg PO DAILY [facility] Last Admin: 01/28/19 10:15 Dose: 0.125 mg Docusate Sodium (Colace -) 100 mg PO BID [facility] Last Admin: 01/28/19 10:16 Dose: 100 mg Furosemide (Lasix -) 40 mg PO BID@0600,1400 [facility] Last Admin: 01/28/19 13:28 Dose: 40 mg Gabapentin (Neurontin -) 300 mg PO TID [facility] Last Admin: 01/28/19 13:28 Dose: 300 mg Insulin Aspart (Novolog Vial Sliding Scale -) 1 vial SQ ACHS [facility]; Protocol Last Admin: 01/28/19 11:53 Dose: Not Given Metoprolol Tartrate (Lopressor -) 200 mg PO BID [facility] Last Admin: 01/28/19 10:17 Dose: 200 mg Metoprolol Tartrate (Lopressor Injection -) 5 mg IVPUSH Q4H PRN PRN Reason: HYPERTENSION Last Admin: 01/27/19 17:38 Dose: 5 mg Oxycodone HCl (Roxicodone -) 5 mg PO Q6H PRN PRN Reason: PAIN SCALE 6-10 Last Admin: 01/28/19 09:12 Dose: 5 mg Pantoprazole Sodium (Protonix -) 20 mg PO DAILY [facility] Last Admin: 01/28/19 10:16 Dose: 20 mg Polyethylene Glycol (Miralax (For Daily Use) -) 17 gm PO DAILY [facility] Last Admin: 01/28/19 10:15 Dose: Not Given Prednisone (Deltasone -) 40 mg PO DAILY [facility] Last Admin: 01/28/19 10:16 Dose: 40 mg - Objective Vital Signs: Vital Signs Temperature 97.9 F 01/28/19 14:00 Pulse Rate 130 H 01/28/19 14:00 Respiratory Rate 21 H 01/28/19 14:00 Blood Pressure 140/95 01/28/19 14:00 O2 Sat by Pulse Oximetry (%) 95 01/28/19 09:00 Constitutional: Yes: Well Nourished, No Distress Eyes: Yes: Conjunctiva Clear, EOM Intact HENT: Yes: Atraumatic, Normocephalic Neck: Yes: Supple, Trachea Midline Cardiovascular: Yes: Pulse Irregular. No: JVD Respiratory: Yes: Regular, CTA Bilaterally Gastrointestinal: Yes: Normal Bowel Sounds, Soft Edema: Yes Edema: LLE: 1+, RLE: 1+ Labs: CBC, BMP 01/25/19 12:15 01/27/19 05:30 INR, PTT INR 1.82 (0.83-1.09) H 01/20/19 12:36 Problem List - Problems (1) JOSEPH (acute kidney injury) Code(s): N17.9 - ACUTE KIDNEY FAILURE, UNSPECIFIED (2) Acute on chronic diastolic (congestive) heart failure Code(s): I50.33 - ACUTE ON CHRONIC DIASTOLIC (CONGESTIVE) HEART FAILURE (3) Afib Code(s): I48.91 - UNSPECIFIED ATRIAL FIBRILLATION Qualifiers: Atrial fibrillation type: unspecified Qualified Code(s): I48.91 - Unspecified atrial fibrillation Assessment/Plan 58-year-old woman with a PMHx of HTN, DM, persistent atrial fibrillation on Eliquis, chronic diastolic CHF, CKD, COPD, chronic leg swelling presented to ED with 2 days of progressively worsening bilateral leg edema and pain. She was found to have elevated BUN/Creat. BNP is elevate, but lower than before. LE duplex 01/20/19 showed no DVT. CXR 01/20/19 revealed cardiomegaly without acute pulmonary process. CT head showed central atrophy and microvascular ischemic changes. Atenolol dose was decreased based on her renal function. Her ventricular rate becomes rapid, up to 150s. The patient has no acute distress and denies palpitation, dizziness, chest pain or SOB. Echocardiogram 01/12/2019: Normal LV size with asymmetric hypertrophy and normal systolic function. LVEF 55%. Normal LA and RA in size. Mild to moderate AI. Trace MR. Mild TR. No pulm HTN. 1) Persistent atrial fibrillation with rapid VR -VR control: --She is declining cardioversion at this time. --Continue verapamil 80mg TID -- digoxin 0.125 QOD due to increased risk of toxicity on verapamil. Montiror Digoxin level as there is interaction with verapamil
[2019-01-28] MEDS ORDERED: PT OWN MED DRAWER 7, Y5N ONE ×2 (17:31→21:48)
[2019-01-28] MEDS: VERAPAMIL HCL 80 MG TABLET PO SCH (21:55)
[2019-01-29] MEDS: oxyCODONE HCL 5 MG TABLET PO PRN ×3 (01:08→20:42)
[2019-01-29] MEDS: GABAPENTIN 300 MG CAPSULE (FP) PO SCH ×3 (05:54→22:07)
[2019-01-29] MEDS: VERAPAMIL HCL 80 MG TABLET PO SCH ×3 (05:54→22:07)
[2019-01-29] MEDS: FUROSEMIDE 40 MG TABLET (FP) PO SCH ×2 (05:54→13:07)
[2019-01-29] MEDS: INSULIN SLIDING SCALE (NOVOLOG) 1 VIAL SQ SCH ×4 (06:01→22:16)
[2019-01-29] MEDS ORDERED: PT OWN MED DRAWER 7, Y5N ONE ×2 (07:27→13:01)
[2019-01-29 07:30] LABS: BASO % 0.2 % (0-2.0); EOS % 0.1 % (0-4.5); HEMATOCRIT 45.1 % (32.4-45.2); HEMOGLOBIN 14.4 GM/dL (10.7-15.3); LYMPH % 15.3 % (8-40); MCH 29.5 pg (25.7-33.7); MEAN CELL VOLUME 92.4 fl (80-96); MEAN PLT VOLUME 11.9 fl (7.5-11.1); NEUT % 74.4 % (42.8-82.8); PLATELET COUNT 118 K/MM3 (134-434); RBC 4.88 M/mm3 (3.60-5.2); RDW 16.9 % (11.6-15.6); WHITE BLOOD COUNT 10.6 K/mm3 (4.0-10.0)
[2019-01-29 08:14] LABS: ALBUMIN 3.5 g/dl (3.4-5.0); BILIRUBIN,TOTAL 1.1 mg/dL (0.2-1); CALCIUM 8.6 mg/dL (8.5-10.1); CREATININE 1.7 mg/dL (0.55-1.3); POTASSIUM 3.8 mmol/L (3.5-5.1); TOT PROT 6.8 g/dl (6.4-8.2)
[2019-01-29] MEDS: PANTOPRAZOLE 20 MG TABLET (FP) PO SCH (09:14)
[2019-01-29] MEDS: METOPROLOL TARTRATE 50 MG TABLET (FP) PO SCH ×2 (09:14→22:08)
[2019-01-29] MEDS: APIXABAN 5 MG TABLET PO SCH ×2 (09:14→22:07)
[2019-01-29] MEDS: predniSONE 20 MG TABLET (UD) PO SCH (09:14)
[2019-01-29] MEDS: POLYETHYLENE GLYCOL 3350 119 GM BTL PO SCH (09:15)
[2019-01-29] MEDS: DOCUSATE SODIUM 100 MG CAPSULE (FP) PO SCH ×2 (09:15→22:07)
[2019-01-29] MEDS: BUDESONIDE/FORMETEROL FUMARATE 80/4.5 mcg INHALER IH SCH ×2 (09:16→22:06)
--- NOTE | 2019-01-29 11:07 | PN ---
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, Physician History of Present Illness: PULMONARY ALERT,NO COMPLAINTS,-SOB,-CP - Current Medication List Current Medications: Active Medications Acetaminophen (Tylenol -) 325 mg PO Q8H PRN PRN Reason: PAIN SCALE 6-10 Last Admin: 01/27/19 20:29 Dose: 325 mg Albuterol/Ipratropium (Duoneb -) 1 amp NEB Q6H PRN PRN Reason: SHORT OF BREATH/WHEEZING Apixaban (Eliquis -) 5 mg PO BID [facility] Last Admin: 01/29/19 09:14 Dose: 5 mg Budesonide/Formoterol Fumarate (Symbicort 80/4.5mcg -) 2 puff IH BID [facility] Last Admin: 01/29/19 09:16 Dose: 2 puff Bupropion HCl (Wellbutrin Xl -) 150 mg PO DAILY [facility] Last Admin: 01/29/19 09:14 Dose: 150 mg Digoxin (Lanoxin -) 0.125 mg PO Q48H [facility] Docusate Sodium (Colace -) 100 mg PO BID [facility] Last Admin: 01/29/19 09:15 Dose: Not Given Furosemide (Lasix -) 40 mg PO BID@0600,1400 [facility] Last Admin: 01/29/19 05:54 Dose: 40 mg Gabapentin (Neurontin -) 300 mg PO TID [facility] Last Admin: 01/29/19 05:54 Dose: 300 mg Insulin Aspart (Novolog Vial Sliding Scale -) 1 vial SQ ACHS [facility]; Protocol Last Admin: 01/29/19 06:01 Dose: Not Given Metoprolol Tartrate (Lopressor -) 200 mg PO BID [facility] Last Admin: 01/29/19 09:14 Dose: 200 mg Metoprolol Tartrate (Lopressor Injection -) 5 mg IVPUSH Q4H PRN PRN Reason: HYPERTENSION Last Admin: 01/27/19 17:38 Dose: 5 mg Oxycodone HCl (Roxicodone -) 5 mg PO Q6H PRN PRN Reason: PAIN SCALE 6-10 Last Admin: 01/29/19 07:48 Dose: 5 mg Pantoprazole Sodium (Protonix -) 20 mg PO DAILY [facility] Last Admin: 01/29/19 09:14 Dose: 20 mg Polyethylene Glycol (Miralax (For Daily Use) -) 17 gm PO DAILY [facility] Last Admin: 01/29/19 09:15 Dose: Not Given Prednisone (Deltasone -) 40 mg PO DAILY [facility] Last Admin: 01/29/19 09:14 Dose: 40 mg Verapamil HCl (Calan -) 80 mg PO TID [facility] Last Admin: 01/29/19 05:54 Dose: 80 mg - Objective Vital Signs: Vital Signs Temperature 98 F 01/29/19 08:36 Pulse Rate 111 H 01/29/19 08:36 Respiratory Rate 20 01/29/19 08:36 Blood Pressure 178/95 H 01/29/19 08:36 O2 Sat by Pulse Oximetry (%) 94 L 01/29/19 09:00 Constitutional: Yes: Well Nourished, Calm Eyes: Yes: WNL HENT: Yes: WNL Neck: Yes: WNL Cardiovascular: Yes: Tachycardia, Pulse Irregular, S1, S2 Respiratory: Yes: Diminished Gastrointestinal: Yes: Normal Bowel Sounds, Soft Extremities: Yes: WNL Edema: Yes Labs: CBC, BMP 01/29/19 06:19 01/29/19 06:19 INR, PTT INR 1.82 (0.83-1.09) H 01/20/19 12:36 Assessment/Plan IMP ACUTE ON CHRONIC HYPERCAPNEIC RESPIRATORY FAILURE IMPROVING LIKELY COPD EXACERBATION IMPROVING DIASTOLIC HF LOWER EXTREMITY EDEMA AFIB WITH RVR LIKELY TANISHA OBESITY ACUTE ON CHRONIC KIDNEY INJURY IMPROVING THROMBOCYTOPENIA SMOKER PLAN INHALED BRONCHODILATORS O2 RATE CONTROL PER CARDIOLOGY PRENISONE MONITOR LYTES,RENAL FUNCTION DAILY WT SMOKING CESSATION PFTS OUTPATIENT SLEEP STUDIES OUTPATIENT F/U CHEST CT OUTPATIENT DR ROLLE
--- NOTE | 2019-01-29 13:00 | PN ---
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, Physician History of Present Illness: Pt seen and examined at bedside. She is awake and alert. She denies shortness of breath. - Current Medication List Current Medications: Active Medications Acetaminophen (Tylenol -) 325 mg PO Q8H PRN PRN Reason: PAIN SCALE 6-10 Last Admin: 01/27/19 20:29 Dose: 325 mg Albuterol/Ipratropium (Duoneb -) 1 amp NEB Q6H PRN PRN Reason: SHORT OF BREATH/WHEEZING Apixaban (Eliquis -) 5 mg PO BID [facility] Last Admin: 01/29/19 09:14 Dose: 5 mg Budesonide/Formoterol Fumarate (Symbicort 80/4.5mcg -) 2 puff IH BID [facility] Last Admin: 01/29/19 09:16 Dose: 2 puff Bupropion HCl (Wellbutrin Xl -) 150 mg PO DAILY [facility] Last Admin: 01/29/19 09:14 Dose: 150 mg Digoxin (Lanoxin -) 0.125 mg PO Q48H [facility] Docusate Sodium (Colace -) 100 mg PO BID [facility] Last Admin: 01/29/19 09:15 Dose: Not Given Furosemide (Lasix -) 40 mg PO BID@0600,1400 [facility] Last Admin: 01/29/19 05:54 Dose: 40 mg Gabapentin (Neurontin -) 300 mg PO TID [facility] Last Admin: 01/29/19 05:54 Dose: 300 mg Insulin Aspart (Novolog Vial Sliding Scale -) 1 vial SQ ACHS [facility]; Protocol Last Admin: 01/29/19 11:44 Dose: Not Given Metoprolol Tartrate (Lopressor -) 200 mg PO BID [facility] Last Admin: 01/29/19 09:14 Dose: 200 mg Metoprolol Tartrate (Lopressor Injection -) 5 mg IVPUSH Q4H PRN PRN Reason: HYPERTENSION Last Admin: 01/27/19 17:38 Dose: 5 mg Oxycodone HCl (Roxicodone -) 5 mg PO Q6H PRN PRN Reason: PAIN SCALE 6-10 Last Admin: 01/29/19 07:48 Dose: 5 mg Pantoprazole Sodium (Protonix -) 20 mg PO DAILY [facility] Last Admin: 01/29/19 09:14 Dose: 20 mg Polyethylene Glycol (Miralax (For Daily Use) -) 17 gm PO DAILY [facility] Last Admin: 01/29/19 09:15 Dose: Not Given Prednisone (Deltasone -) 40 mg PO DAILY [facility] Last Admin: 01/29/19 09:14 Dose: 40 mg Verapamil HCl (Calan -) 80 mg PO TID [facility] Last Admin: 01/29/19 05:54 Dose: 80 mg - Objective Vital Signs: Vital Signs Temperature 98 F 01/29/19 08:36 Pulse Rate 111 H 01/29/19 08:36 Respiratory Rate 20 01/29/19 08:36 Blood Pressure 178/95 H 01/29/19 08:36 O2 Sat by Pulse Oximetry (%) 94 L 01/29/19 09:00 Constitutional: Yes: Calm Eyes: Yes: Conjunctiva Clear HENT: Yes: Atraumatic Cardiovascular: Yes: Tachycardia, S1, S2 Respiratory: Yes: CTA Bilaterally Gastrointestinal: Yes: Soft Genitourinary: Yes: WNL Musculoskeletal: Yes: WNL Edema: Yes Edema: LLE: 2+, RLE: 2+ Neurological: Yes: Oriented Psychiatric: Yes: Oriented Labs: CBC, BMP 01/29/19 06:19 01/29/19 06:19 INR, PTT INR 1.82 (0.83-1.09) H 01/20/19 12:36 Problem List - Problems (1) JOSEPH (acute kidney injury) Code(s): N17.9 - ACUTE KIDNEY FAILURE, UNSPECIFIED Assessment/Plan Current Medications Generic Name Dose Route Start Last Admin Trade Name Freq PRN Reason Stop Dose Admin Acetaminophen 325 mg 01/20/19 18:21 01/27/19 20:29 Tylenol - PO 325 mg Q8H PRN Administration PAIN SCALE 6-10 Albuterol/Ipratropium 1 amp 01/28/19 12:50 Duoneb - NEB Q6H PRN SHORT OF BREATH/WHEEZING Apixaban 5 mg 01/20/19 22:00 01/29/19 09:14 Eliquis - PO 5 mg BID JOLENE Administration Budesonide/Formoterol Fumarate 2 puff 01/20/19 22:00 01/29/19 09:16 Symbicort 80/4.5mcg - IH 2 puff BID [facility]OLENE Administration Bupropion HCl 150 mg 01/21/19 16:45 01/29/19 09:14 Wellbutrin Xl - PO 150 mg DAILY [facility] Administration Digoxin 0.125 mg 01/30/19 10:00 Lanoxin - PO Q48H [facility]OLENE Docusate Sodium 100 mg 01/21/19 22:00 01/29/19 09:15 Colace - PO Not Given BID [facility]OLENE Furosemide 40 mg 01/27/19 06:00 01/29/19 05:54 Lasix - PO 40 mg BID@0600,1400 [facility] Administration Gabapentin 300 mg 01/20/19 22:00 01/29/19 05:54 Neurontin - PO 300 mg TID JOLENE Administration Insulin Aspart 1 vial 01/20/19 22:00 01/29/19 11:44 Novolog Vial Sliding Scale - SQ Not Given ACHS [facility] Protocol Metoprolol Tartrate 200 mg 01/25/19 12:05 01/29/19 09:14 Lopressor - PO 200 mg BID [facility]OLENE Administration Metoprolol Tartrate 5 mg 01/27/19 12:10 01/27/19 17:38 Lopressor Injection - IVPUSH 5 mg Q4H PRN Administration HYPERTENSION Oxycodone HCl 5 mg 01/22/19 12:08 01/29/19 07:48 Roxicodone - PO 5 mg Q6H PRN Administration PAIN SCALE 6-10 Pantoprazole Sodium 20 mg 01/27/19 10:00 01/29/19 09:14 Protonix - PO 20 mg DAILY [facility] Administration Polyethylene Glycol 17 gm 01/22/19 10:00 01/29/19 09:15 Miralax (For Daily Use) - PO Not Given DAILY [facility] Prednisone 40 mg 01/28/19 10:00 01/29/19 09:14 Deltasone - PO 40 mg DAILY [facility] Administration Verapamil HCl 80 mg 01/28/19 22:00 01/29/19 05:54 Calan - PO 80 mg TID JOLENE Administration Impression 1. CKD 2. CHF 3. a-fib 4. lower ext edema 5. COPD 6. active smoker Plan - [employer] has been at 1.7 - cardio workup in progress - avoid nephrotoxins - ua neg for blood or protein - will need outpt follow up - cont with lasix
--- NOTE | 2019-01-29 13:40 | DS ---
Physical Examination Vital Signs: Vital Signs Temperature 98 F 01/29/19 08:36 Pulse Rate 111 H 01/29/19 08:36 Respiratory Rate 20 01/29/19 08:36 Blood Pressure 178/95 H 01/29/19 08:36 O2 Sat by Pulse Oximetry (%) 94 L 01/29/19 09:00 Constitutional: Yes: Calm Cardiovascular: Yes: Tachycardia, S1, S2 Respiratory: Yes: CTA Bilaterally Gastrointestinal: Yes: Normal Bowel Sounds, Soft Edema: Yes Neurological: Yes: Alert, Oriented Labs: CBC, BMP 01/29/19 06:19 01/29/19 06:19 Discharge Summary Reason For Visit: ACUTE KIDNEY INJURY, RESPIRATORY ACIDOSIS, Current Active Problems JOSEPH (acute kidney injury) (Acute) Acute and chronic respiratory failure (Acute) Constipation (Acute) Gallstones (Acute) Leg swelling (Acute) Respiratory acidosis (Acute) Hospital Course: Chief Complaint: lower leg swelling History of Present Illness: Patient is a 58 y/o female with past medical history of HTN, Afib (on Eliquis), DM, chronic LE swelling. Patient presented to ER with complaints of increase in bilateral lower extremity swelling since Friday. Patient complain of dropping objects, states having difficulty holding object in her hand. admitted to telemetry VR patient doesn not want cardioversion refusing it so started on verampamil TID and digxin every other day tenormin was stopped bc of renal function leg edema diltiazem dose decreased then stopped changed to verampamil and started digoxin every other day iv lasix to po lasix for leg edema gallstones needs MRCP as outpatient prednisone taper and Chest CT as outpatient Condition: Stable - Instructions Diet, Activity, Other Instructions: check digoxin level every 2 weeks Follow up with PMD in 2 weeks for gallstone get MRI of abdomen as outpatient prednisone taper chest CT non contrast as outpatient Referrals: Naya Akhtar MD [Staff Physician] - 2 Weeks - Home Medications Comprehensive Discharge Medication List: Ambulatory Orders Apixaban [Eliquis] 5 mg PO BID 03/28/18 Lidocaine 5% Patch [Lidoderm -] 1 patch TP DAILY #7 patch 05/04/18 Albuterol Sulfate Inhaler - [Ventolin HFA Inhaler -] 1 inh IH QID PRN 05/21/18 Budesonide/Formeterol Fumarate [SYMBICORT 80/4.5mcg -] 2 puff IH BID #1 inhaler 12/28/18 Bupropion HCl [Wellbutrin Xl -] 150 mg PO DAILY tab.sr.24h 12/28/18 Furosemide [Lasix -] 40 mg PO BID@0600,1400 #30 tablet MDD 2 01/15/19 Gabapentin [Neurontin -] 300 mg PO TID capsule 01/15/19 Cholecalciferol (Vitamin D3) [Vitamin D -] 50,000 unit PO WEEKLY 01/22/19 Linagliptin [Tradjenta] 5 mg PO DAILY 01/22/19 Oxycodone HCl/Acetaminophen [Endocet 10-325 mg Tablet] 1 each PO TID 01/22/19 hydrOXYzine PAMOATE [Vistaril -] 50 mg PO DAILY 01/22/19 Apixaban [Eliquis -] 5 mg PO BID #30 tablet MDD 2 01/29/19 Digoxin [Lanoxin -] 0.125 mg PO Q48H #30 tablet 01/29/19 Furosemide [Lasix -] 40 mg PO BID@0600,1400 #30 tablet MDD 2 01/29/19 Metoprolol Tartrate [Lopressor -] 200 mg PO BID #60 tablet 01/29/19 Verapamil HCl [Calan -] 80 mg PO TID #90 tablet MDD 3 01/29/19 predniSONE [Deltasone -] 40 mg PO DAILY #14 tablet 01/29/19
--- NOTE | 2019-01-29 13:44 | PN ---
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, Physician Chief Complaint: No dyspnea. Telem AF HR 130 NSVT vs aberrancy Upset and wants to leave. History of Present Illness: 58-year-old woman with a PMHx of HTN, DM, persistent atrial fibrillation on Eliquis, chronic diastolic CHF, CKD, COPD, chronic leg swelling presented to ED with 2 days of progressively worsening bilateral leg edema and pain. She was found to have elevated BUN/Creat. BNP is elevate, but lower than before. LE duplex 01/20/19 showed no DVT. CXR 01/20/19 revealed cardiomegaly without acute pulmonary process. CT head showed central atrophy and microvascular ischemic changes. Atenolol dose was decreased based on her renal function. Her ventricular rate becomes rapid, up to 150s. The patient has no acute distress and denies palpitation, dizziness, chest pain or SOB. Echocardiogram 01/12/2019: Normal LV size with asymmetric hypertrophy and normal systolic function. LVEF 55%. Normal LA and RA in size. Mild to moderate AI. Trace MR. Mild TR. No pulm HTN. - Current Medication List Current Medications: Active Medications Acetaminophen (Tylenol -) 325 mg PO Q8H PRN PRN Reason: PAIN SCALE 6-10 Last Admin: 01/27/19 20:29 Dose: 325 mg Albuterol/Ipratropium (Duoneb -) 1 amp NEB Q6H PRN PRN Reason: SHORT OF BREATH/WHEEZING Apixaban (Eliquis -) 5 mg PO BID [facility] Last Admin: 01/29/19 09:14 Dose: 5 mg Budesonide/Formoterol Fumarate (Symbicort 80/4.5mcg -) 2 puff IH BID [facility] Last Admin: 01/29/19 09:16 Dose: 2 puff Bupropion HCl (Wellbutrin Xl -) 150 mg PO DAILY [facility] Last Admin: 01/29/19 09:14 Dose: 150 mg Digoxin (Lanoxin -) 0.125 mg PO Q48H [facility] Docusate Sodium (Colace -) 100 mg PO BID [facility] Last Admin: 01/29/19 09:15 Dose: Not Given Furosemide (Lasix -) 40 mg PO BID@0600,1400 [facility] Last Admin: 01/29/19 13:07 Dose: 40 mg Gabapentin (Neurontin -) 300 mg PO TID [facility] Last Admin: 01/29/19 13:07 Dose: 300 mg Insulin Aspart (Novolog Vial Sliding Scale -) 1 vial SQ ACHS [facility]; Protocol Last Admin: 01/29/19 11:44 Dose: Not Given Metoprolol Tartrate (Lopressor -) 200 mg PO BID [facility] Last Admin: 01/29/19 09:14 Dose: 200 mg Metoprolol Tartrate (Lopressor Injection -) 5 mg IVPUSH Q4H PRN PRN Reason: HYPERTENSION Last Admin: 01/27/19 17:38 Dose: 5 mg Oxycodone HCl (Roxicodone -) 5 mg PO Q6H PRN PRN Reason: PAIN SCALE 6-10 Last Admin: 01/29/19 07:48 Dose: 5 mg Pantoprazole Sodium (Protonix -) 20 mg PO DAILY [facility] Last Admin: 01/29/19 09:14 Dose: 20 mg Polyethylene Glycol (Miralax (For Daily Use) -) 17 gm PO DAILY [facility] Last Admin: 01/29/19 09:15 Dose: Not Given Prednisone (Deltasone -) 40 mg PO DAILY [facility] Last Admin: 01/29/19 09:14 Dose: 40 mg Verapamil HCl (Calan -) 80 mg PO TID [facility] Last Admin: 01/29/19 13:07 Dose: 80 mg - Objective Vital Signs: Vital Signs Temperature 98 F 01/29/19 08:36 Pulse Rate 111 H 01/29/19 08:36 Respiratory Rate 20 01/29/19 08:36 Blood Pressure 178/95 H 01/29/19 08:36 O2 Sat by Pulse Oximetry (%) 94 L 01/29/19 09:00 Constitutional: Yes: Well Nourished, No Distress Eyes: Yes: Conjunctiva Clear, EOM Intact HENT: Yes: Atraumatic, Normocephalic Cardiovascular: Yes: Tachycardia, Pulse Irregular, S1, S2. No: Murmur Respiratory: Yes: CTA Bilaterally Edema: Yes Edema: LLE: 1+, RLE: 1+ Labs: CBC, BMP 01/29/19 06:19 01/29/19 06:19 INR, PTT INR 1.82 (0.83-1.09) H 01/20/19 12:36 Problem List - Problems (1) JOSEPH (acute kidney injury) Code(s): N17.9 - ACUTE KIDNEY FAILURE, UNSPECIFIED (2) Acute on chronic diastolic (congestive) heart failure Code(s): I50.33 - ACUTE ON CHRONIC DIASTOLIC (CONGESTIVE) HEART FAILURE (3) Afib Code(s): I48.91 - UNSPECIFIED ATRIAL FIBRILLATION Qualifiers: Atrial fibrillation type: unspecified Qualified Code(s): I48.91 - Unspecified atrial fibrillation Assessment/Plan 58-year-old woman with a PMHx of HTN, DM, persistent atrial fibrillation on Eliquis, chronic diastolic CHF, CKD, COPD, chronic leg swelling presented to ED with 2 days of progressively worsening bilateral leg edema and pain. She was found to have elevated BUN/Creat. BNP is elevate, but lower than before. LE duplex 01/20/19 showed no DVT. CXR 01/20/19 revealed cardiomegaly without acute pulmonary process. CT head showed central atrophy and microvascular ischemic changes. Atenolol dose was decreased based on her renal function. Her ventricular rate becomes rapid, up to 150s. The patient has no acute distress and denies palpitation, dizziness, chest pain or SOB. Echocardiogram 01/12/2019: Normal LV size with asymmetric hypertrophy and normal systolic function. LVEF 55%. Normal LA and RA in size. Mild to moderate AI. Trace MR. Mild TR. No pulm HTN. 1) Persistent atrial fibrillation with rapid VR -VR control: --She is declining cardioversion. --Afib still rapid despite high dose AVN blockade. --Increase Verapamil 160mg TID. At this point we have maximized medical therapy. --Going forward there are limited medical options. She may need to be discharged on present therapy and followed as an OP with arrhythmia. Monitor until tomorrow. --Monitor Digoxin level as there is interaction with verapamil
--- NOTE | 2019-01-29 14:35 | PN ---
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 (short form) - Note 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: PATIENT HR still elevated will increase verampamil dose to 160mg tid and continue HR monitoring not ready for discharge home Problem List - Problems (1) Afib Code(s): I48.91 - UNSPECIFIED ATRIAL FIBRILLATION Qualifiers: Atrial fibrillation type: unspecified Qualified Code(s): I48.91 - Unspecified atrial fibrillation (2) JOSEPH (acute kidney injury) Code(s): N17.9 - ACUTE KIDNEY FAILURE, UNSPECIFIED (3) Gallstones Code(s): K80.20 - CALCULUS OF GALLBLADDER W/O CHOLECYSTITIS W/O OBSTRUCTION (4) Leg swelling Code(s): M79.89 - OTHER SPECIFIED SOFT TISSUE DISORDERS (5) Acute on chronic diastolic (congestive) heart failure Code(s): I50.33 - ACUTE ON CHRONIC DIASTOLIC (CONGESTIVE) HEART FAILURE (6) Constipation Code(s): K59.00 - CONSTIPATION, UNSPECIFIED (7) Acute and chronic respiratory failure Code(s): J96.20 - ACUTE AND CHR RESP FAILURE, UNSP W HYPOXIA OR HYPERCAPNIA
[2019-01-29] MEDS: METOPROLOL TARTRATE 5 MG/5 ML VIAL IVPUSH PRN (20:41)
[2019-01-29] MEDS: ACETAMINOPHEN 325 MG TABLET (FP) PO PRN (20:48)
[2019-01-30] MEDS: FUROSEMIDE 40 MG TABLET (FP) PO SCH (06:41)
[2019-01-30] MEDS: VERAPAMIL HCL 80 MG TABLET PO SCH (06:41)
[2019-01-30] MEDS: GABAPENTIN 300 MG CAPSULE (FP) PO SCH (06:41)
[2019-01-30] MEDS: INSULIN SLIDING SCALE (NOVOLOG) 1 VIAL SQ SCH (06:45)
[2019-01-30 09:49] VITALS: BP 138/102; TEMP 97.8
[2019-01-30] MEDS ORDERED: DIGOXIN 0.125 MG TABLET (FP) PO SCH (10:00)
[2019-01-30] MEDS: METOPROLOL TARTRATE 50 MG TABLET (FP) PO SCH ×2 (10:24→10:26)
[2019-01-30] MEDS: predniSONE 20 MG TABLET (UD) PO SCH (10:24)
[2019-01-30] MEDS: APIXABAN 5 MG TABLET PO SCH (10:25)
[2019-01-30] MEDS: PANTOPRAZOLE 20 MG TABLET (FP) PO SCH (10:25)
[2019-01-30] MEDS: POLYETHYLENE GLYCOL 3350 119 GM BTL PO SCH (10:26)
[2019-01-30] MEDS: BUDESONIDE/FORMETEROL FUMARATE 80/4.5 mcg INHALER IH SCH (10:26)
[2019-01-30 10:30] VITALS: PULSE 106
--- NOTE | 2019-01-30 10:47 | PN ---
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, Physician History of Present Illness: Pt seen and examined at bedside. She is awake and alert. She denies shortness of breath but complains of edema. - Current Medication List Current Medications: Active Medications Acetaminophen (Tylenol -) 325 mg PO Q8H PRN PRN Reason: PAIN SCALE 6-10 Last Admin: 01/29/19 20:48 Dose: 325 mg Albuterol/Ipratropium (Duoneb -) 1 amp NEB Q6H PRN PRN Reason: SHORT OF BREATH/WHEEZING Apixaban (Eliquis -) 5 mg PO BID [facility] Last Admin: 01/30/19 10:25 Dose: 5 mg Budesonide/Formoterol Fumarate (Symbicort 80/4.5mcg -) 2 puff IH BID [facility] Last Admin: 01/30/19 10:26 Dose: 2 puff Bupropion HCl (Wellbutrin Xl -) 150 mg PO DAILY [facility] Last Admin: 01/30/19 10:25 Dose: 150 mg Digoxin (Lanoxin -) 0.125 mg PO Q48H [facility] Last Admin: 01/30/19 10:24 Dose: 0.125 mg Docusate Sodium (Colace -) 100 mg PO BID [facility] Last Admin: 01/29/19 22:07 Dose: 100 mg Furosemide (Lasix -) 40 mg PO BID@0600,1400 [facility] Last Admin: 01/30/19 06:41 Dose: 40 mg Gabapentin (Neurontin -) 300 mg PO TID [facility] Last Admin: 01/30/19 06:41 Dose: 300 mg Insulin Aspart (Novolog Vial Sliding Scale -) 1 vial SQ ACHS [facility]; Protocol Last Admin: 01/30/19 06:45 Dose: Not Given Metoprolol Tartrate (Lopressor -) 200 mg PO BID [facility] Last Admin: 01/30/19 10:26 Dose: 200 mg Metoprolol Tartrate (Lopressor Injection -) 5 mg IVPUSH Q4H PRN PRN Reason: HYPERTENSION Last Admin: 01/29/19 20:41 Dose: 5 mg Oxycodone HCl (Roxicodone -) 5 mg PO Q6H PRN PRN Reason: PAIN SCALE 6-10 Last Admin: 01/29/19 20:42 Dose: 5 mg Pantoprazole Sodium (Protonix -) 20 mg PO DAILY [facility] Last Admin: 01/30/19 10:25 Dose: 20 mg Polyethylene Glycol (Miralax (For Daily Use) -) 17 gm PO DAILY [facility] Last Admin: 01/30/19 10:26 Dose: 17 gm Prednisone (Deltasone -) 40 mg PO DAILY [facility] Last Admin: 01/30/19 10:24 Dose: 40 mg Verapamil HCl (Calan -) 160 mg PO TID [facility] Last Admin: 01/30/19 06:41 Dose: 160 mg - Objective Vital Signs: Vital Signs Temperature 97.8 F 01/30/19 09:00 Pulse Rate 106 H 01/30/19 10:24 Respiratory Rate 20 01/30/19 09:00 Blood Pressure 138/102 H 01/30/19 09:00 O2 Sat by Pulse Oximetry (%) 92 L 01/29/19 21:00 Constitutional: Yes: Calm Eyes: Yes: Conjunctiva Clear HENT: Yes: Atraumatic Neck: Yes: Supple Cardiovascular: Yes: S1, S2 Respiratory: Yes: CTA Bilaterally Gastrointestinal: Yes: Normal Bowel Sounds, Soft Genitourinary: Yes: WNL Edema: Yes Edema: LLE: 2+, RLE: 2+ Neurological: Yes: Oriented Psychiatric: Yes: Oriented Labs: CBC, BMP 01/29/19 06:19 01/29/19 06:19 INR, PTT INR 1.82 (0.83-1.09) H 01/20/19 12:36 Problem List - Problems (1) JOSEPH (acute kidney injury) Code(s): N17.9 - ACUTE KIDNEY FAILURE, UNSPECIFIED Assessment/Plan Current Medications Generic Name Dose Route Start Last Admin Trade Name Malena PRN Reason Stop Dose Admin Acetaminophen 325 mg 01/20/19 18:21 01/29/19 20:48 Tylenol - PO 325 mg Q8H PRN Administration PAIN SCALE 6-10 Albuterol/Ipratropium 1 amp 01/28/19 12:50 Duoneb - NEB Q6H PRN SHORT OF BREATH/WHEEZING Apixaban 5 mg 01/20/19 22:00 01/30/19 10:25 Eliquis - PO 5 mg BID [facility] Administration Budesonide/Formoterol Fumarate 2 puff 01/20/19 22:00 01/30/19 10:26 Symbicort 80/4.5mcg - IH 2 puff BID [facility]OLENE Administration Bupropion HCl 150 mg 01/21/19 16:45 01/30/19 10:25 Wellbutrin Xl - PO 150 mg DAILY [facility] Administration Digoxin 0.125 mg 01/30/19 10:00 01/30/19 10:24 Lanoxin - PO 0.125 mg Q48H [facility]ENE Administration Docusate Sodium 100 mg 01/21/19 22:00 01/29/19 22:07 Colace - PO 100 mg BID [facility] Administration Furosemide 40 mg 01/27/19 06:00 01/30/19 06:41 Lasix - PO 40 mg BID@0600,1400 [facility] Administration Gabapentin 300 mg 01/20/19 22:00 01/30/19 06:41 Neurontin - PO 300 mg TID [facility]ENE Administration Insulin Aspart 1 vial 01/20/19 22:00 01/30/19 06:45 Novolog Vial Sliding Scale - SQ Not Given ACHS [facility] Protocol Metoprolol Tartrate 200 mg 01/25/19 12:05 01/30/19 10:26 Lopressor - PO 200 mg BID [facility] Administration Metoprolol Tartrate 5 mg 01/27/19 12:10 01/29/19 20:41 Lopressor Injection - IVPUSH 5 mg Q4H PRN Administration HYPERTENSION Oxycodone HCl 5 mg 01/22/19 12:08 01/29/19 20:42 Roxicodone - PO 5 mg Q6H PRN Administration PAIN SCALE 6-10 Pantoprazole Sodium 20 mg 01/27/19 10:00 01/30/19 10:25 Protonix - PO 20 mg DAILY [facility] Administration Polyethylene Glycol 17 gm 01/22/19 10:00 01/30/19 10:26 Miralax (For Daily Use) - PO 17 gm DAILY [facility] Administration Prednisone 40 mg 01/28/19 10:00 01/30/19 10:24 Deltasone - PO 40 mg DAILY [facility] Administration Verapamil HCl 160 mg 01/29/19 22:00 01/30/19 06:41 Calan - PO 160 mg TID JOLENE Administration Impression 1. CKD 2. CHF 3. a-fib 4. lower ext edema 5. COPD 6. active smoker Plan - pt still with edema - check bmp - will give a dose of metolazone - will also give a dose or potassium - avoid nephrotoxins - ua neg for blood or protein - will need outpt follow up
[2019-01-30] MEDS ORDERED: POTASSIUM CHLORIDE TABS 20 MEQ TABLET.ER (FP) PO ONE (11:00)
--- NOTE | 2019-01-30 12:53 | DS ---
Physical Examination Vital Signs: Vital Signs Temperature 97.8 F 01/30/19 09:00 Pulse Rate 106 H 01/30/19 10:24 Respiratory Rate 20 01/30/19 09:00 Blood Pressure 138/102 H 01/30/19 09:00 O2 Sat by Pulse Oximetry (%) 92 L 01/29/19 21:00 Findings/Remarks: Patient is a 58 y/o female with past medical history of HTN, Afib (on Eliquis), DM, chronic LE swelling. Patient presented to ER with complaints of increase in bilateral lower extremity swelling since Friday. Patient complain of dropping objects, states having difficulty holding object in her hand. Patient is leaving AMA. Since admission patient has been foolowed by cardiology for elevated HR and Afib. HR has been Afb with RVR with minimal response to medication management. Cardiology recommend cardioversion for patient to help control arrhythmia but patient refused. She was started on a new medication to help improve HR. This morning HR noted to be 106bpm, but irregular. Patient states she wants to leave the hospital because she feels nothing is being done for her. Explained that she refused the transfer for cardioversion and was started on a new medication and that she would need a few doses to see if it would be effective. Patient still requests to leave. Explained by internal communications writer that if she leaves she will be considered leaving against medical advice. Risks and consequences of leaving AMA explained to patient, including , stroke, respiratory distress and patient still wants to leave AMA. Constitutional: Yes: Anxious Eyes: Yes: Conjunctiva Clear Cardiovascular: Yes: Tachycardia Respiratory: Yes: Regular, CTA Bilaterally Gastrointestinal: Yes: Normal Bowel Sounds, Soft Musculoskeletal: Yes: WNL Extremities: Yes: WNL Edema: Yes Edema: LLE: 2+, RLE: 2+ Neurological: Yes: Alert, Oriented Psychiatric: Yes: Alert, Oriented Labs: CBC, BMP 01/29/19 06:19 01/29/19 06:19 Discharge Summary Reason For Visit: ACUTE KIDNEY INJURY, RESPIRATORY ACIDOSIS, Hospital Course: see progress notes Laboratory Tests 01/20/19 01/20/19 01/20/19 12:18 12:36 12:36 WBC 5.7 RBC 4.30 Hgb 12.4 Hct 39.8 MCV 92.5 MCH 28.9 MCHC 31.3 L RDW 16.2 H Plt Count 110 L D MPV 11.5 H Absolute Neuts (auto) 2.6 Neutrophils % 45.7 Neutrophils % (Manual) Band Neutrophils % Lymphocytes % 34.6 Lymphocytes % (Manual) Monocytes % 15.4 H Monocytes % (Manual) Eosinophils % 3.6 Eosinophils % (Manual) Basophils % 0.7 Basophils % (Manual) Myelocytes % (Man) Promyelocytes % (Man) Blast Cells % (Manual) Nucleated RBC % 0 Metamyelocytes Hypochromia Platelet Estimate Polychromasia Poikilocytosis Anisocytosis Microcytosis Macrocytosis PT with INR 21.60 H INR 1.82 H PTT (Actin FS) 44.8 H Anticoagulation Therapy Puncture Site ABG pH ABG pCO2 at Pt Temp ABG pO2 at Pt Temp ABG HCO3 ABG O2 Sat (Measured) ABG O2 Content ABG Base Excess Randy Test VBG pH POC VBG pCO2 POC VBG pO2 VBG HCO3 VBG O2 Sat (Manpreet) VBG Base Excess O2 Delivery Device Oxygen Flow Rate Vent Mode Vent Rate Mechanical Rate PEEP Pressure Support Vent Sodium 135 L Potassium 4.0 Chloride 95 L Carbon Dioxide 32 Anion Gap 8 BUN 35 H Creatinine 2.9 H Est GFR (CKD-EPI)AfAm 19.57 Est GFR (CKD-EPI)NonAf 16.89 POC Glucometer Random Glucose 113 H Hemoglobin A1c % Calcium 8.7 Phosphorus Magnesium Total Bilirubin 0.4 AST 17 ALT 19 Alkaline Phosphatase 94 Ammonia Creatine Kinase Troponin I B-Natriuretic Peptide 4547.5 H Total Protein 7.2 Albumin 3.7 Triglycerides Cholesterol Total LDL Cholesterol HDL Cholesterol TSH Urine Color Urine Appearance Urine pH Ur Specific [place] Urine Protein Urine Glucose (UA) Urine Ketones Urine Blood Urine Nitrite Urine Bilirubin Urine Urobilinogen Ur Leukocyte Esterase U Random Total Protein Urine Creatinine Protein/Creatinin Ratio Digoxin Hepatitis A Ab Total Hep Bs Antigen Hep Bs Antibody Hep B Core Total Ab Hep C Ab Diagnostic 01/20/19 01/20/19 01/20/19 12:36 12:36 12:39 WBC RBC Hgb Hct MCV MCH MCHC RDW Plt Count MPV Absolute Neuts (auto) Neutrophils % Neutrophils % (Manual) Band Neutrophils % Lymphocytes % Lymphocytes % (Manual) Monocytes % Monocytes % (Manual) Eosinophils % Eosinophils % (Manual) Basophils % Basophils % (Manual) Myelocytes % (Man) Promyelocytes % (Man) Blast Cells % (Manual) Nucleated RBC % Metamyelocytes Hypochromia Platelet Estimate Polychromasia Poikilocytosis Anisocytosis Microcytosis Macrocytosis PT with INR Cancelled INR Cancelled PTT (Actin FS) Anticoagulation Therapy Puncture Site ABG pH ABG pCO2 at Pt Temp ABG pO2 at Pt Temp ABG HCO3 ABG O2 Sat (Measured) ABG O2 Content ABG Base Excess Randy Test VBG pH 7.28 L POC VBG pCO2 73.3 H* POC VBG pO2 31.1 VBG HCO3 33.5 H VBG O2 Sat (Manpreet) 50.6 L VBG Base Excess 4.9 H O2 Delivery Device Oxygen Flow Rate Vent Mode Vent Rate Mechanical Rate PEEP Pressure Support Vent Sodium Potassium Chloride Carbon Dioxide Anion Gap BUN Creatinine Est GFR (CKD-EPI)AfAm Est GFR (CKD-EPI)NonAf POC Glucometer Random Glucose Hemoglobin A1c % Calcium Phosphorus Magnesium Total Bilirubin AST ALT Alkaline Phosphatase Ammonia 40.00 H Creatine Kinase Troponin I B-Natriuretic Peptide Total Protein Albumin Triglycerides Cholesterol Total LDL Cholesterol HDL Cholesterol TSH Urine Color Urine Appearance Urine pH Ur Specific [place] Urine Protein Urine Glucose (UA) Urine Ketones Urine Blood Urine Nitrite Urine Bilirubin Urine Urobilinogen Ur Leukocyte Esterase U Random Total Protein Urine Creatinine Protein/Creatinin Ratio Digoxin Hepatitis A Ab Total Hep Bs Antigen Hep Bs Antibody Hep B Core Total Ab Hep C Ab Diagnostic 01/20/19 01/20/19 01/21/19 15:26 21:07 04:00 WBC RBC Hgb Hct MCV MCH MCHC RDW Plt Count MPV Absolute Neuts (auto) Neutrophils % Neutrophils % (Manual) Band Neutrophils % Lymphocytes % Lymphocytes % (Manual) Monocytes % Monocytes % (Manual) Eosinophils % Eosinophils % (Manual) Basophils % Basophils % (Manual) Myelocytes % (Man) Promyelocytes % (Man) Blast Cells % (Manual) Nucleated RBC % Metamyelocytes Hypochromia Platelet Estimate Polychromasia Poikilocytosis Anisocytosis Microcytosis Macrocytosis PT with INR INR PTT (Actin FS) Anticoagulation Therapy No Result Required. Puncture Site Right radial ABG pH 7.32 L ABG pCO2 at Pt Temp 63.1 H ABG pO2 at Pt Temp 150 H ABG HCO3 31.4 H ABG O2 Sat (Measured) 99.2 H ABG O2 Content 16.7 ABG Base Excess 4.1 H Randy Test Positive VBG pH POC VBG pCO2 POC VBG pO2 VBG HCO3 VBG O2 Sat (Manpreet) VBG Base Excess O2 Delivery Device No Result Required. Oxygen Flow Rate 40 Vent Mode S/t Vent Rate 16 Mechanical Rate No Result Required. PEEP 6.0 Pressure Support Vent 12/6 Sodium Potassium Chloride Carbon Dioxide Anion Gap BUN Creatinine Est GFR (CKD-EPI)AfAm Est GFR (CKD-EPI)NonAf POC Glucometer 188 Random Glucose Hemoglobin A1c % Calcium Phosphorus Magnesium Total Bilirubin AST ALT Alkaline Phosphatase Ammonia Creatine Kinase Troponin I B-Natriuretic Peptide Total Protein Albumin Triglycerides Cholesterol Total LDL Cholesterol HDL Cholesterol TSH Urine Color Yellow Urine Appearance Clear Urine pH 5.5 Ur Specific [place] 1.019 Urine Protein Negative Urine Glucose (UA) Negative Urine Ketones Negative Urine Blood Negative Urine Nitrite Negative Urine Bilirubin Negative Urine Urobilinogen 0.2 Ur Leukocyte Esterase Negative U Random Total Protein Urine Creatinine Protein/Creatinin Ratio Digoxin Hepatitis A Ab Total Hep Bs Antigen Hep Bs Antibody Hep B Core Total Ab Hep C Ab Diagnostic 01/21/19 01/21/19 01/21/19 04:00 06:04 06:55 WBC 3.5 L RBC 4.42 Hgb 12.8 Hct 40.4 MCV 91.5 MCH 29.1 MCHC 31.8 L RDW 16.2 H Plt Count 111 L MPV 10.9 Absolute Neuts (auto) 2.9 Neutrophils % 82.4 D Neutrophils % (Manual) Band Neutrophils % Lymphocytes % 16.0 D Lymphocytes % (Manual) Monocytes % 1.2 L D Monocytes % (Manual) Eosinophils % 0.0 D Eosinophils % (Manual) Basophils % 0.4 Basophils % (Manual) Myelocytes % (Man) Promyelocytes % (Man) Blast Cells % (Manual) Nucleated RBC % 0 Metamyelocytes Hypochromia Platelet Estimate Polychromasia Poikilocytosis Anisocytosis Microcytosis Macrocytosis PT with INR INR PTT (Actin FS) Anticoagulation Therapy Puncture Site ABG pH ABG pCO2 at Pt Temp ABG pO2 at Pt Temp ABG HCO3 ABG O2 Sat (Measured) ABG O2 Content ABG Base Excess Randy Test VBG pH POC VBG pCO2 POC VBG pO2 VBG HCO3 VBG O2 Sat (Manpreet) VBG Base Excess O2 Delivery Device Oxygen Flow Rate Vent Mode Vent Rate Mechanical Rate PEEP Pressure Support Vent Sodium Potassium Chloride Carbon Dioxide Anion Gap BUN Creatinine Est GFR (CKD-EPI)AfAm Est GFR (CKD-EPI)NonAf POC Glucometer 199 Random Glucose Hemoglobin A1c % Calcium Phosphorus Magnesium Total Bilirubin AST ALT Alkaline Phosphatase Ammonia Creatine Kinase Troponin I B-Natriuretic Peptide Total Protein Albumin Triglycerides Cholesterol Total LDL Cholesterol HDL Cholesterol TSH Urine Color Urine Appearance Urine pH Ur Specific [place] Urine Protein Urine Glucose (UA) Urine Ketones Urine Blood Urine Nitrite Urine Bilirubin Urine Urobilinogen Ur Leukocyte Esterase U Random Total Protein 18.1 H Urine Creatinine 122.0 Protein/Creatinin Ratio 0.140 Digoxin Hepatitis A Ab Total Hep Bs Antigen Hep Bs Antibody Hep B Core Total Ab Hep C Ab Diagnostic 01/21/19 01/21/19 01/21/19 06:55 06:55 12:00 WBC RBC Hgb Hct MCV MCH MCHC RDW Plt Count MPV Absolute Neuts (auto) Neutrophils % Neutrophils % (Manual) Band Neutrophils % Lymphocytes % Lymphocytes % (Manual) Monocytes % Monocytes % (Manual) Eosinophils % Eosinophils % (Manual) Basophils % Basophils % (Manual) Myelocytes % (Man) Promyelocytes % (Man) Blast Cells % (Manual) Nucleated RBC % Metamyelocytes Hypochromia Platelet Estimate Polychromasia Poikilocytosis Anisocytosis Microcytosis Macrocytosis PT with INR INR PTT (Actin FS) Anticoagulation Therapy Puncture Site ABG pH ABG pCO2 at Pt Temp ABG pO2 at Pt Temp ABG HCO3 ABG O2 Sat (Measured) ABG O2 Content ABG Base Excess Randy Test VBG pH POC VBG pCO2 POC VBG pO2 VBG HCO3 VBG O2 Sat (Manpreet) VBG Base Excess O2 Delivery Device Oxygen Flow Rate Vent Mode Vent Rate Mechanical Rate PEEP Pressure Support Vent Sodium 141 Potassium 3.8 Chloride 102 Carbon Dioxide 32 Anion Gap 8 BUN 36 H Creatinine 2.3 H Est GFR (CKD-EPI)AfAm 25.91 Est GFR (CKD-EPI)NonAf 22.35 POC Glucometer 193 Random Glucose 201 H Hemoglobin A1c % 6.4 H Calcium 8.8 Phosphorus 3.7 Magnesium 2.7 H Total Bilirubin 0.4 AST 18 ALT 23 Alkaline Phosphatase 85 Ammonia Creatine Kinase 53 Troponin I < 0.02 B-Natriuretic Peptide 5133.7 H Total Protein 7.0 Albumin 3.4 Triglycerides 43 Cholesterol 140 Total LDL Cholesterol 76 HDL Cholesterol 56 TSH 0.18 L Urine Color Urine Appearance Urine pH Ur Specific [place] Urine Protein Urine Glucose (UA) Urine Ketones Urine Blood Urine Nitrite Urine Bilirubin Urine Urobilinogen Ur Leukocyte Esterase U Random Total Protein Urine Creatinine Protein/Creatinin Ratio Digoxin Hepatitis A Ab Total Hep Bs Antigen Hep Bs Antibody Hep B Core Total Ab Hep C Ab Diagnostic 01/21/19 01/21/19 01/22/19 16:44 21:33 05:04 WBC RBC Hgb Hct MCV MCH MCHC RDW Plt Count MPV Absolute Neuts (auto) Neutrophils % Neutrophils % (Manual) Band Neutrophils % Lymphocytes % Lymphocytes % (Manual) Monocytes % Monocytes % (Manual) Eosinophils % Eosinophils % (Manual) Basophils % Basophils % (Manual) Myelocytes % (Man) Promyelocytes % (Man) Blast Cells % (Manual) Nucleated RBC % Metamyelocytes Hypochromia Platelet Estimate Polychromasia Poikilocytosis Anisocytosis Microcytosis Macrocytosis PT with INR INR PTT (Actin FS) Anticoagulation Therapy Puncture Site ABG pH ABG pCO2 at Pt Temp ABG pO2 at Pt Temp ABG HCO3 ABG O2 Sat (Measured) ABG O2 Content ABG Base Excess Randy Test VBG pH POC VBG pCO2 POC VBG pO2 VBG HCO3 VBG O2 Sat (Manpreet) VBG Base Excess O2 Delivery Device Oxygen Flow Rate Vent Mode Vent Rate Mechanical Rate PEEP Pressure Support Vent Sodium Potassium Chloride Carbon Dioxide Anion Gap BUN Creatinine Est GFR (CKD-EPI)AfAm Est GFR (CKD-EPI)NonAf POC Glucometer [phone] Random Glucose Hemoglobin A1c % Calcium Phosphorus Magnesium Total Bilirubin AST ALT Alkaline Phosphatase Ammonia Creatine Kinase Troponin I B-Natriuretic Peptide Total Protein Albumin Triglycerides Cholesterol Total LDL Cholesterol HDL Cholesterol TSH Urine Color Urine Appearance Urine pH Ur Specific [place] Urine Protein Urine Glucose (UA) Urine Ketones Urine Blood Urine Nitrite Urine Bilirubin Urine Urobilinogen Ur Leukocyte Esterase U Random Total Protein Urine Creatinine Protein/Creatinin Ratio Digoxin Hepatitis A Ab Total Hep Bs Antigen Hep Bs Antibody Hep B Core Total Ab Hep C Ab Diagnostic 01/22/19 01/22/19 01/22/19 05:30 05:30 12:15 WBC 11.4 H RBC 4.25 Hgb 12.4 Hct 38.7 MCV 91.2 MCH 29.2 MCHC 32.1 RDW 16.1 H Plt Count 109 L MPV 11.1 Absolute Neuts (auto) 10.5 H Neutrophils % 92.0 H Neutrophils % (Manual) 90.0 H Band Neutrophils % 0.0 Lymphocytes % 6.0 L D Lymphocytes % (Manual) 7.3 L Monocytes % 2.0 L Monocytes % (Manual) 3 L Eosinophils % 0.0 Eosinophils % (Manual) 0.0 Basophils % 0.0 Basophils % (Manual) 0.0 Myelocytes % (Man) 0 Promyelocytes % (Man) 0 Blast Cells % (Manual) 0 Nucleated RBC % 0 Metamyelocytes 0 Hypochromia 1+ Platelet Estimate Decreased Polychromasia 0 Poikilocytosis 0 Anisocytosis 0 Microcytosis 0 Macrocytosis 0 PT with INR INR PTT (Actin FS) Anticoagulation Therapy Puncture Site ABG pH ABG pCO2 at Pt Temp ABG pO2 at Pt Temp ABG HCO3 ABG O2 Sat (Measured) ABG O2 Content ABG Base Excess Randy Test VBG pH POC VBG pCO2 POC VBG pO2 VBG HCO3 VBG O2 Sat (Manpreet) VBG Base Excess O2 Delivery Device Oxygen Flow Rate Vent Mode Vent Rate Mechanical Rate PEEP Pressure Support Vent Sodium 141 Potassium 3.9 Chloride 100 Carbon Dioxide 34 H Anion Gap 7 L BUN 32 H Creatinine 1.9 H Est GFR (CKD-EPI)AfAm 32.64 Est GFR (CKD-EPI)NonAf 28.16 POC Glucometer 168 Random Glucose 179 H Hemoglobin A1c % Calcium 8.9 Phosphorus Magnesium Total Bilirubin 0.7 AST 20 ALT 26 Alkaline Phosphatase 80 Ammonia Creatine Kinase Troponin I B-Natriuretic Peptide Total Protein 6.9 Albumin 3.5 Triglycerides Cholesterol Total LDL Cholesterol HDL Cholesterol TSH Urine Color Urine Appearance Urine pH Ur Specific [place] Urine Protein Urine Glucose (UA) Urine Ketones Urine Blood Urine Nitrite Urine Bilirubin Urine Urobilinogen Ur Leukocyte Esterase U Random Total Protein Urine Creatinine Protein/Creatinin Ratio Digoxin Hepatitis A Ab Total Hep Bs Antigen Hep Bs Antibody Hep B Core Total Ab Hep C Ab Diagnostic 01/22/19 01/22/19 01/23/19 16:29 21:02 05:30 WBC RBC Hgb Hct MCV MCH MCHC RDW Plt Count MPV Absolute Neuts (auto) Neutrophils % Neutrophils % (Manual) Band Neutrophils % Lymphocytes % Lymphocytes % (Manual) Monocytes % Monocytes % (Manual) Eosinophils % Eosinophils % (Manual) Basophils % Basophils % (Manual) Myelocytes % (Man) Promyelocytes % (Man) Blast Cells % (Manual) Nucleated RBC % Metamyelocytes Hypochromia Platelet Estimate Polychromasia Poikilocytosis Anisocytosis Microcytosis Macrocytosis PT with INR INR PTT (Actin FS) Anticoagulation Therapy Puncture Site ABG pH ABG pCO2 at Pt Temp ABG pO2 at Pt Temp ABG HCO3 ABG O2 Sat (Measured) ABG O2 Content ABG Base Excess Randy Test VBG pH POC VBG pCO2 POC VBG pO2 VBG HCO3 VBG O2 Sat (Manpreet) VBG Base Excess O2 Delivery Device Oxygen Flow Rate Vent Mode Vent Rate Mechanical Rate PEEP Pressure Support Vent Sodium Potassium Chloride Carbon Dioxide Anion Gap BUN Creatinine Est GFR (CKD-EPI)AfAm Est GFR (CKD-EPI)NonAf POC Glucometer 228 210 Random Glucose Hemoglobin A1c % Calcium Phosphorus Magnesium Total Bilirubin AST ALT Alkaline Phosphatase Ammonia Creatine Kinase Troponin I B-Natriuretic Peptide Total Protein Albumin Triglycerides Cholesterol Total LDL Cholesterol HDL Cholesterol TSH Urine Color Urine Appearance Urine pH Ur Specific [place] Urine Protein Urine Glucose (UA) Urine Ketones Urine Blood Urine Nitrite Urine Bilirubin Urine Urobilinogen Ur Leukocyte Esterase U Random Total Protein Urine Creatinine Protein/Creatinin Ratio Digoxin Hepatitis A Ab Total Negative Hep Bs Antigen Negative Hep Bs Antibody Non reactive Hep B Core Total Ab Negative Hep C Ab Diagnostic <0.1 01/23/19 01/23/19 01/23/19 05:30 06:14 11:32 WBC RBC Hgb Hct MCV MCH MCHC RDW Plt Count MPV Absolute Neuts (auto) Neutrophils % Neutrophils % (Manual) Band Neutrophils % Lymphocytes % Lymphocytes % (Manual) Monocytes % Monocytes % (Manual) Eosinophils % Eosinophils % (Manual) Basophils % Basophils % (Manual) Myelocytes % (Man) Promyelocytes % (Man) Blast Cells % (Manual) Nucleated RBC % Metamyelocytes Hypochromia Platelet Estimate Polychromasia Poikilocytosis Anisocytosis Microcytosis Macrocytosis PT with INR INR PTT (Actin FS) Anticoagulation Therapy Puncture Site ABG pH ABG pCO2 at Pt Temp ABG pO2 at Pt Temp ABG HCO3 ABG O2 Sat (Measured) ABG O2 Content ABG Base Excess Randy Test VBG pH POC VBG pCO2 POC VBG pO2 VBG HCO3 VBG O2 Sat (Manpreet) VBG Base Excess O2 Delivery Device Oxygen Flow Rate Vent Mode Vent Rate Mechanical Rate PEEP Pressure Support Vent Sodium 138 Potassium 4.2 Chloride 99 Carbon Dioxide 33 H Anion Gap 6 L BUN 43 H Creatinine 1.9 H Est GFR (CKD-EPI)AfAm 32.64 Est GFR (CKD-EPI)NonAf 28.16 POC Glucometer 208 231 Random Glucose 195 H Hemoglobin A1c % Calcium 9.2 Phosphorus Magnesium Total Bilirubin AST ALT Alkaline Phosphatase Ammonia Creatine Kinase Troponin I B-Natriuretic Peptide Total Protein Albumin Triglycerides Cholesterol Total LDL Cholesterol HDL Cholesterol TSH Urine Color Urine Appearance Urine pH Ur Specific [place] Urine Protein Urine Glucose (UA) Urine Ketones Urine Blood Urine Nitrite Urine Bilirubin Urine Urobilinogen Ur Leukocyte Esterase U Random Total Protein Urine Creatinine Protein/Creatinin Ratio Digoxin Hepatitis A Ab Total Hep Bs Antigen Hep Bs Antibody Hep B Core Total Ab Hep C Ab Diagnostic 01/23/19 01/23/19 01/24/19 17:26 21:12 06:46 WBC RBC Hgb Hct MCV MCH MCHC RDW Plt Count MPV Absolute Neuts (auto) Neutrophils % Neutrophils % (Manual) Band Neutrophils % Lymphocytes % Lymphocytes % (Manual) Monocytes % Monocytes % (Manual) Eosinophils % Eosinophils % (Manual) Basophils % Basophils % (Manual) Myelocytes % (Man) Promyelocytes % (Man) Blast Cells % (Manual) Nucleated RBC % Metamyelocytes Hypochromia Platelet Estimate Polychromasia Poikilocytosis Anisocytosis Microcytosis Macrocytosis PT with INR INR PTT (Actin FS) Anticoagulation Therapy Puncture Site ABG pH ABG pCO2 at Pt Temp ABG pO2 at Pt Temp ABG HCO3 ABG O2 Sat (Measured) ABG O2 Content ABG Base Excess Randy Test VBG pH POC VBG pCO2 POC VBG pO2 VBG HCO3 VBG O2 Sat (Manpreet) VBG Base Excess O2 Delivery Device Oxygen Flow Rate Vent Mode Vent Rate Mechanical Rate PEEP Pressure Support Vent Sodium Potassium Chloride Carbon Dioxide Anion Gap BUN Creatinine Est GFR (CKD-EPI)AfAm Est GFR (CKD-EPI)NonAf POC Glucometer 255 252 177 Random Glucose Hemoglobin A1c % Calcium Phosphorus Magnesium Total Bilirubin AST ALT Alkaline Phosphatase Ammonia Creatine Kinase Troponin I B-Natriuretic Peptide Total Protein Albumin Triglycerides Cholesterol Total LDL Cholesterol HDL Cholesterol TSH Urine Color Urine Appearance Urine pH Ur Specific [place] Urine Protein Urine Glucose (UA) Urine Ketones Urine Blood Urine Nitrite Urine Bilirubin Urine Urobilinogen Ur Leukocyte Esterase U Random Total Protein Urine Creatinine Protein/Creatinin Ratio Digoxin Hepatitis A Ab Total Hep Bs Antigen Hep Bs Antibody Hep B Core Total Ab Hep C Ab Diagnostic 01/24/19 01/24/19 01/24/19 11:27 17:13 21:20 WBC RBC Hgb Hct MCV MCH MCHC RDW Plt Count MPV Absolute Neuts (auto) Neutrophils % Neutrophils % (Manual) Band Neutrophils % Lymphocytes % Lymphocytes % (Manual) Monocytes % Monocytes % (Manual) Eosinophils % Eosinophils % (Manual) Basophils % Basophils % (Manual) Myelocytes % (Man) Promyelocytes % (Man) Blast Cells % (Manual) Nucleated RBC % Metamyelocytes Hypochromia Platelet Estimate Polychromasia Poikilocytosis Anisocytosis Microcytosis Macrocytosis PT with INR INR PTT (Actin FS) Anticoagulation Therapy Puncture Site ABG pH ABG pCO2 at Pt Temp ABG pO2 at Pt Temp ABG HCO3 ABG O2 Sat (Measured) ABG O2 Content ABG Base Excess Randy Test VBG pH POC VBG pCO2 POC VBG pO2 VBG HCO3 VBG O2 Sat (Manpreet) VBG Base Excess O2 Delivery Device Oxygen Flow Rate Vent Mode Vent Rate Mechanical Rate PEEP Pressure Support Vent Sodium Potassium Chloride Carbon Dioxide Anion Gap BUN Creatinine Est GFR (CKD-EPI)AfAm Est GFR (CKD-EPI)NonAf POC Glucometer 253 211 212 Random Glucose Hemoglobin A1c % Calcium Phosphorus Magnesium Total Bilirubin AST ALT Alkaline Phosphatase Ammonia Creatine Kinase Troponin I B-Natriuretic Peptide Total Protein Albumin Triglycerides Cholesterol Total LDL Cholesterol HDL Cholesterol TSH Urine Color Urine Appearance Urine pH Ur Specific [place] Urine Protein Urine Glucose (UA) Urine Ketones Urine Blood Urine Nitrite Urine Bilirubin Urine Urobilinogen Ur Leukocyte Esterase U Random Total Protein Urine Creatinine Protein/Creatinin Ratio Digoxin Hepatitis A Ab Total Hep Bs Antigen Hep Bs Antibody Hep B Core Total Ab Hep C Ab Diagnostic 01/25/19 01/25/19 01/25/19 05:30 11:58 12:15 WBC 10.7 H RBC 4.79 Hgb 14.1 Hct 44.5 MCV 93.0 MCH 29.4 MCHC 31.6 L RDW 17.0 H Plt Count 114 L MPV 11.7 H Absolute Neuts (auto) 9.4 H Neutrophils % 88.0 H Neutrophils % (Manual) Band Neutrophils % Lymphocytes % 6.1 L Lymphocytes % (Manual) Monocytes % 5.6 D Monocytes % (Manual) Eosinophils % 0.0 Eosinophils % (Manual) Basophils % 0.3 D Basophils % (Manual) Myelocytes % (Man) Promyelocytes % (Man) Blast Cells % (Manual) Nucleated RBC % 0 Metamyelocytes Hypochromia Platelet Estimate Polychromasia Poikilocytosis Anisocytosis Microcytosis Macrocytosis PT with INR INR PTT (Actin FS) Anticoagulation Therapy Puncture Site ABG pH ABG pCO2 at Pt Temp ABG pO2 at Pt Temp ABG HCO3 ABG O2 Sat (Measured) ABG O2 Content ABG Base Excess Randy Test VBG pH POC VBG pCO2 POC VBG pO2 VBG HCO3 VBG O2 Sat (Manpreet) VBG Base Excess O2 Delivery Device Oxygen Flow Rate Vent Mode Vent Rate Mechanical Rate PEEP Pressure Support Vent Sodium Potassium Chloride Carbon Dioxide Anion Gap BUN Creatinine Est GFR (CKD-EPI)AfAm Est GFR (CKD-EPI)NonAf POC Glucometer 188 223 Random Glucose Hemoglobin A1c % Calcium Phosphorus Magnesium Total Bilirubin AST ALT Alkaline Phosphatase Ammonia Creatine Kinase Troponin I B-Natriuretic Peptide Total Protein Albumin Triglycerides Cholesterol Total LDL Cholesterol HDL Cholesterol TSH Urine Color Urine Appearance Urine pH Ur Specific [place] Urine Protein Urine Glucose (UA) Urine Ketones Urine Blood Urine Nitrite Urine Bilirubin Urine Urobilinogen Ur Leukocyte Esterase U Random Total Protein Urine Creatinine Protein/Creatinin Ratio Digoxin Hepatitis A Ab Total Hep Bs Antigen Hep Bs Antibody Hep B Core Total Ab Hep C Ab Diagnostic 01/25/19 01/25/19 01/25/19 12:15 17:06 21:37 WBC RBC Hgb Hct MCV MCH MCHC RDW Plt Count MPV Absolute Neuts (auto) Neutrophils % Neutrophils % (Manual) Band Neutrophils % Lymphocytes % Lymphocytes % (Manual) Monocytes % Monocytes % (Manual) Eosinophils % Eosinophils % (Manual) Basophils % Basophils % (Manual) Myelocytes % (Man) Promyelocytes % (Man) Blast Cells % (Manual) Nucleated RBC % Metamyelocytes Hypochromia Platelet Estimate Polychromasia Poikilocytosis Anisocytosis Microcytosis Macrocytosis PT with INR INR PTT (Actin FS) Anticoagulation Therapy Puncture Site ABG pH ABG pCO2 at Pt Temp ABG pO2 at Pt Temp ABG HCO3 ABG O2 Sat (Measured) ABG O2 Content ABG Base Excess Randy Test VBG pH POC VBG pCO2 POC VBG pO2 VBG HCO3 VBG O2 Sat (Manprete) VBG Base Excess O2 Delivery Device Oxygen Flow Rate Vent Mode Vent Rate Mechanical Rate PEEP Pressure Support Vent Sodium 139 Potassium 3.8 Chloride 98 Carbon Dioxide 34 H Anion Gap 7 L BUN 53 H Creatinine 2.0 H Est GFR (CKD-EPI)AfAm 30.68 Est GFR (CKD-EPI)NonAf 26.47 POC Glucometer 203 253 Random Glucose 216 H Hemoglobin A1c % Calcium 8.6 Phosphorus Magnesium Total Bilirubin AST ALT Alkaline Phosphatase Ammonia Creatine Kinase Troponin I B-Natriuretic Peptide Total Protein Albumin Triglycerides Cholesterol Total LDL Cholesterol HDL Cholesterol TSH Urine Color Urine Appearance Urine pH Ur Specific [place] Urine Protein Urine Glucose (UA) Urine Ketones Urine Blood Urine Nitrite Urine Bilirubin Urine Urobilinogen Ur Leukocyte Esterase U Random Total Protein Urine Creatinine Protein/Creatinin Ratio Digoxin Hepatitis A Ab Total Hep Bs Antigen Hep Bs Antibody Hep B Core Total Ab Hep C Ab Diagnostic 01/26/19 01/26/19 01/26/19 05:48 06:58 17:29 WBC RBC Hgb Hct MCV MCH MCHC RDW Plt Count MPV Absolute Neuts (auto) Neutrophils % Neutrophils % (Manual) Band Neutrophils % Lymphocytes % Lymphocytes % (Manual) Monocytes % Monocytes % (Manual) Eosinophils % Eosinophils % (Manual) Basophils % Basophils % (Manual) Myelocytes % (Man) Promyelocytes % (Man) Blast Cells % (Manual) Nucleated RBC % Metamyelocytes Hypochromia Platelet Estimate Polychromasia Poikilocytosis Anisocytosis Microcytosis Macrocytosis PT with INR INR PTT (Actin FS) Anticoagulation Therapy Puncture Site ABG pH ABG pCO2 at Pt Temp ABG pO2 at Pt Temp ABG HCO3 ABG O2 Sat (Measured) ABG O2 Content ABG Base Excess Randy Test VBG pH POC VBG pCO2 POC VBG pO2 VBG HCO3 VBG O2 Sat (Manpreet) VBG Base Excess O2 Delivery Device Oxygen Flow Rate Vent Mode Vent Rate Mechanical Rate PEEP Pressure Support Vent Sodium 140 Potassium 4.1 Chloride 101 Carbon Dioxide 33 H Anion Gap 6 L BUN 52 H Creatinine 1.8 H Est GFR (CKD-EPI)AfAm 34.84 Est GFR (CKD-EPI)NonAf 30.06 POC Glucometer 211 241 Random Glucose 216 H Hemoglobin A1c % Calcium 8.6 Phosphorus Magnesium Total Bilirubin AST ALT Alkaline Phosphatase Ammonia Creatine Kinase Troponin I B-Natriuretic Peptide Total Protein Albumin Triglycerides Cholesterol Total LDL Cholesterol HDL Cholesterol TSH Urine Color Urine Appearance Urine pH Ur Specific [place] Urine Protein Urine Glucose (UA) Urine Ketones Urine Blood Urine Nitrite Urine Bilirubin Urine Urobilinogen Ur Leukocyte Esterase U Random Total Protein Urine Creatinine Protein/Creatinin Ratio Digoxin Hepatitis A Ab Total Hep Bs Antigen Hep Bs Antibody Hep B Core Total Ab Hep C Ab Diagnostic 01/26/19 01/27/19 01/27/19 23:05 05:30 05:45 WBC RBC Hgb Hct MCV MCH MCHC RDW Plt Count MPV Absolute Neuts (auto) Neutrophils % Neutrophils % (Manual) Band Neutrophils % Lymphocytes % Lymphocytes % (Manual) Monocytes % Monocytes % (Manual) Eosinophils % Eosinophils % (Manual) Basophils % Basophils % (Manual) Myelocytes % (Man) Promyelocytes % (Man) Blast Cells % (Manual) Nucleated RBC % Metamyelocytes Hypochromia Platelet Estimate Polychromasia Poikilocytosis Anisocytosis Microcytosis Macrocytosis PT with INR INR PTT (Actin FS) Anticoagulation Therapy Puncture Site ABG pH ABG pCO2 at Pt Temp ABG pO2 at Pt Temp ABG HCO3 ABG O2 Sat (Measured) ABG O2 Content ABG Base Excess Randy Test VBG pH POC VBG pCO2 POC VBG pO2 VBG HCO3 VBG O2 Sat (Manpreet) VBG Base Excess O2 Delivery Device Oxygen Flow Rate Vent Mode Vent Rate Mechanical Rate PEEP Pressure Support Vent Sodium 141 Potassium 4.2 Chloride 99 Carbon Dioxide 36 H Anion Gap 6 L BUN 52 H Creatinine 1.7 H Est GFR (CKD-EPI)AfAm 37.34 Est GFR (CKD-EPI)NonAf 32.21 POC Glucometer 275 233 Random Glucose 227 H Hemoglobin A1c % Calcium 8.5 Phosphorus Magnesium Total Bilirubin AST ALT Alkaline Phosphatase Ammonia Creatine Kinase Troponin I B-Natriuretic Peptide Total Protein Albumin Triglycerides Cholesterol Total LDL Cholesterol HDL Cholesterol TSH Urine Color Urine Appearance Urine pH Ur Specific [place] Urine Protein Urine Glucose (UA) Urine Ketones Urine Blood Urine Nitrite Urine Bilirubin Urine Urobilinogen Ur Leukocyte Esterase U Random Total Protein Urine Creatinine Protein/Creatinin Ratio Digoxin Hepatitis A Ab Total Hep Bs Antigen Hep Bs Antibody Hep B Core Total Ab Hep C Ab Diagnostic 01/27/19 01/27/19 01/27/19 11:26 14:03 22:33 WBC RBC Hgb Hct MCV MCH MCHC RDW Plt Count MPV Absolute Neuts (auto) Neutrophils % Neutrophils % (Manual) Band Neutrophils % Lymphocytes % Lymphocytes % (Manual) Monocytes % Monocytes % (Manual) Eosinophils % Eosinophils % (Manual) Basophils % Basophils % (Manual) Myelocytes % (Man) Promyelocytes % (Man) Blast Cells % (Manual) Nucleated RBC % Metamyelocytes Hypochromia Platelet Estimate Polychromasia Poikilocytosis Anisocytosis Microcytosis Macrocytosis PT with INR INR PTT (Actin FS) Anticoagulation Therapy No Result Required. Puncture Site Right radial ABG pH 7.46 H ABG pCO2 at Pt Temp 48.9 H ABG pO2 at Pt Temp 64.7 L ABG HCO3 34.1 H ABG O2 Sat (Measured) 91.9 L ABG O2 Content 18.1 ABG Base Excess 9.0 H Randy Test Positive VBG pH POC VBG pCO2 POC VBG pO2 VBG HCO3 VBG O2 Sat (Manpreet) VBG Base Excess O2 Delivery Device No Result Required. Oxygen Flow Rate No Vent Mode No Result Required. Vent Rate No Result Required. Mechanical Rate No Result Required. PEEP Pressure Support Vent No Result Required. Sodium Potassium Chloride Carbon Dioxide Anion Gap BUN Creatinine Est GFR (CKD-EPI)AfAm Est GFR (CKD-EPI)NonAf POC Glucometer 184 321 Random Glucose Hemoglobin A1c % Calcium Phosphorus Magnesium Total Bilirubin AST ALT Alkaline Phosphatase Ammonia Creatine Kinase Troponin I B-Natriuretic Peptide Total Protein Albumin Triglycerides Cholesterol Total LDL Cholesterol HDL Cholesterol TSH Urine Color Urine Appearance Urine pH Ur Specific [place] Urine Protein Urine Glucose (UA) Urine Ketones Urine Blood Urine Nitrite Urine Bilirubin Urine Urobilinogen Ur Leukocyte Esterase U Random Total Protein Urine Creatinine Protein/Creatinin Ratio Digoxin Hepatitis A Ab Total Hep Bs Antigen Hep Bs Antibody Hep B Core Total Ab Hep C Ab Diagnostic 01/28/19 01/28/19 01/28/19 06:06 11:51 13:27 WBC RBC Hgb Hct MCV MCH MCHC RDW Plt Count MPV Absolute Neuts (auto) Neutrophils % Neutrophils % (Manual) Band Neutrophils % Lymphocytes % Lymphocytes % (Manual) Monocytes % Monocytes % (Manual) Eosinophils % Eosinophils % (Manual) Basophils % Basophils % (Manual) Myelocytes % (Man) Promyelocytes % (Man) Blast Cells % (Manual) Nucleated RBC % Metamyelocytes Hypochromia Platelet Estimate Polychromasia Poikilocytosis Anisocytosis Microcytosis Macrocytosis PT with INR INR PTT (Actin FS) Anticoagulation Therapy Puncture Site ABG pH ABG pCO2 at Pt Temp ABG pO2 at Pt Temp ABG HCO3 ABG O2 Sat (Measured) ABG O2 Content ABG Base Excess Randy Test VBG pH POC VBG pCO2 POC VBG pO2 VBG HCO3 VBG O2 Sat (Manpreet) VBG Base Excess O2 Delivery Device Oxygen Flow Rate Vent Mode Vent Rate Mechanical Rate PEEP Pressure Support Vent Sodium Potassium Chloride Carbon Dioxide Anion Gap BUN Creatinine Est GFR (CKD-EPI)AfAm Est GFR (CKD-EPI)NonAf POC Glucometer 203 174 Random Glucose Hemoglobin A1c % Calcium Phosphorus Magnesium Total Bilirubin AST ALT Alkaline Phosphatase Ammonia Creatine Kinase Troponin I B-Natriuretic Peptide Total Protein Albumin Triglycerides Cholesterol Total LDL Cholesterol HDL Cholesterol TSH Urine Color Urine Appearance Urine pH Ur Specific [place] Urine Protein Urine Glucose (UA) Urine Ketones Urine Blood Urine Nitrite Urine Bilirubin Urine Urobilinogen Ur Leukocyte Esterase U Random Total Protein Urine Creatinine Protein/Creatinin Ratio Digoxin 0.85 Hepatitis A Ab Total Hep Bs Antigen Hep Bs Antibody Hep B Core Total Ab Hep C Ab Diagnostic 01/28/19 01/28/19 01/29/19 17:08 21:52 05:52 WBC RBC Hgb Hct MCV MCH MCHC RDW Plt Count MPV Absolute Neuts (auto) Neutrophils % Neutrophils % (Manual) Band Neutrophils % Lymphocytes % Lymphocytes % (Manual) Monocytes % Monocytes % (Manual) Eosinophils % Eosinophils % (Manual) Basophils % Basophils % (Manual) Myelocytes % (Man) Promyelocytes % (Man) Blast Cells % (Manual) Nucleated RBC % Metamyelocytes Hypochromia Platelet Estimate Polychromasia Poikilocytosis Anisocytosis Microcytosis Macrocytosis PT with INR INR PTT (Actin FS) Anticoagulation Therapy Puncture Site ABG pH ABG pCO2 at Pt Temp ABG pO2 at Pt Temp ABG HCO3 ABG O2 Sat (Measured) ABG O2 Content ABG Base Excess Randy Test VBG pH POC VBG pCO2 POC VBG pO2 VBG HCO3 VBG O2 Sat (Manpreet) VBG Base Excess O2 Delivery Device Oxygen Flow Rate Vent Mode Vent Rate Mechanical Rate PEEP Pressure Support Vent Sodium Potassium Chloride Carbon Dioxide Anion Gap BUN Creatinine Est GFR (CKD-EPI)AfAm Est GFR (CKD-EPI)NonAf POC Glucometer 195 307 159 Random Glucose Hemoglobin A1c % Calcium Phosphorus Magnesium Total Bilirubin AST ALT Alkaline Phosphatase Ammonia Creatine Kinase Troponin I B-Natriuretic Peptide Total Protein Albumin Triglycerides Cholesterol Total LDL Cholesterol HDL Cholesterol TSH Urine Color Urine Appearance Urine pH Ur Specific [place] Urine Protein Urine Glucose (UA) Urine Ketones Urine Blood Urine Nitrite Urine Bilirubin Urine Urobilinogen Ur Leukocyte Esterase U Random Total Protein Urine Creatinine Protein/Creatinin Ratio Digoxin Hepatitis A Ab Total Hep Bs Antigen Hep Bs Antibody Hep B Core Total Ab Hep C Ab Diagnostic 01/29/19 01/29/19 01/29/19 06:19 06:19 11:43 WBC 10.6 H RBC 4.88 Hgb 14.4 Hct 45.1 MCV 92.4 MCH 29.5 MCHC 32.0 RDW 16.9 H Plt Count 118 L MPV 11.9 H Absolute Neuts (auto) 7.9 Neutrophils % 74.4 Neutrophils % (Manual) Band Neutrophils % Lymphocytes % 15.3 D Lymphocytes % (Manual) Monocytes % 10.0 Monocytes % (Manual) Eosinophils % 0.1 D Eosinophils % (Manual) Basophils % 0.2 Basophils % (Manual) Myelocytes % (Man) Promyelocytes % (Man) Blast Cells % (Manual) Nucleated RBC % 0 Metamyelocytes Hypochromia Platelet Estimate Polychromasia Poikilocytosis Anisocytosis Microcytosis Macrocytosis PT with INR INR PTT (Actin FS) Anticoagulation Therapy Puncture Site ABG pH ABG pCO2 at Pt Temp ABG pO2 at Pt Temp ABG HCO3 ABG O2 Sat (Measured) ABG O2 Content ABG Base Excess Randy Test VBG pH POC VBG pCO2 POC VBG pO2 VBG HCO3 VBG O2 Sat (Manpreet) VBG Base Excess O2 Delivery Device Oxygen Flow Rate Vent Mode Vent Rate Mechanical Rate PEEP Pressure Support Vent Sodium 141 Potassium 3.8 Chloride 98 Carbon Dioxide 38 H Anion Gap 5 L BUN 51 H Creatinine 1.7 H Est GFR (CKD-EPI)AfAm 37.34 Est GFR (CKD-EPI)NonAf 32.21 POC Glucometer 125 Random Glucose 158 H Hemoglobin A1c % Calcium 8.6 Phosphorus Magnesium Total Bilirubin 1.1 H AST 19 ALT 50 Alkaline Phosphatase 73 Ammonia Creatine Kinase Troponin I B-Natriuretic Peptide Total Protein 6.8 Albumin 3.5 Triglycerides Cholesterol Total LDL Cholesterol HDL Cholesterol TSH Urine Color Urine Appearance Urine pH Ur Specific [place] Urine Protein Urine Glucose (UA) Urine Ketones Urine Blood Urine Nitrite Urine Bilirubin Urine Urobilinogen Ur Leukocyte Esterase U Random Total Protein Urine Creatinine Protein/Creatinin Ratio Digoxin 0.74 L Hepatitis A Ab Total Hep Bs Antigen Hep Bs Antibody Hep B Core Total Ab Hep C Ab Diagnostic 01/29/19 01/29/19 01/30/19 17:03 22:14 06:44 WBC RBC Hgb Hct MCV MCH MCHC RDW Plt Count MPV Absolute Neuts (auto) Neutrophils % Neutrophils % (Manual) Band Neutrophils % Lymphocytes % Lymphocytes % (Manual) Monocytes % Monocytes % (Manual) Eosinophils % Eosinophils % (Manual) Basophils % Basophils % (Manual) Myelocytes % (Man) Promyelocytes % (Man) Blast Cells % (Manual) Nucleated RBC % Metamyelocytes Hypochromia Platelet Estimate Polychromasia Poikilocytosis Anisocytosis Microcytosis Macrocytosis PT with INR INR PTT (Actin FS) Anticoagulation Therapy Puncture Site ABG pH ABG pCO2 at Pt Temp ABG pO2 at Pt Temp ABG HCO3 ABG O2 Sat (Measured) ABG O2 Content ABG Base Excess Randy Test VBG pH POC VBG pCO2 POC VBG pO2 VBG HCO3 VBG O2 Sat (Manpreet) VBG Base Excess O2 Delivery Device Oxygen Flow Rate Vent Mode Vent Rate Mechanical Rate PEEP Pressure Support Vent Sodium Potassium Chloride Carbon Dioxide Anion Gap BUN Creatinine Est GFR (CKD-EPI)AfAm Est GFR (CKD-EPI)NonAf POC Glucometer 265 210 153 Random Glucose Hemoglobin A1c % Calcium Phosphorus Magnesium Total Bilirubin AST ALT Alkaline Phosphatase Ammonia Creatine Kinase Troponin I B-Natriuretic Peptide Total Protein Albumin Triglycerides Cholesterol Total LDL Cholesterol HDL Cholesterol TSH Urine Color Urine Appearance Urine pH Ur Specific [place] Urine Protein Urine Glucose (UA) Urine Ketones Urine Blood Urine Nitrite Urine Bilirubin Urine Urobilinogen Ur Leukocyte Esterase U Random Total Protein Urine Creatinine Protein/Creatinin Ratio Digoxin Hepatitis A Ab Total Hep Bs Antigen Hep Bs Antibody Hep B Core Total Ab Hep C Ab Diagnostic Condition: Guarded - Instructions Diet, Activity, Other Instructions: check digoxin level every 2 weeks Follow up with PMD in 2 weeks for gallstone get MRI of abdomen as outpatient prednisone taper chest CT non contrast as outpatient Referrals: Rivera Doe [Non Staff, Medical] - 1 Week Naya Akhtar MD [Staff Physician] - 2 Weeks Disposition: AGAINST MEDICAL ADVICE - Home Medications Comprehensive Discharge Medication List: Ambulatory Orders Apixaban [Eliquis] 5 mg PO BID 03/28/18 Lidocaine 5% Patch [Lidoderm -] 1 patch TP DAILY #7 patch 05/04/18 Albuterol Sulfate Inhaler - [Ventolin HFA Inhaler -] 1 inh IH QID PRN 05/21/18 Budesonide/Formeterol Fumarate [SYMBICORT 80/4.5mcg -] 2 puff IH BID #1 inhaler 12/28/18 Bupropion HCl [Wellbutrin Xl -] 150 mg PO DAILY tab.sr.24h 12/28/18 Furosemide [Lasix -] 40 mg PO BID@0600,1400 #30 tablet MDD 2 01/15/19 Gabapentin [Neurontin -] 300 mg PO TID capsule 01/15/19 Cholecalciferol (Vitamin D3) [Vitamin D -] 50,000 unit PO WEEKLY 01/22/19 Linagliptin [Tradjenta] 5 mg PO DAILY 01/22/19 Oxycodone HCl/Acetaminophen [Endocet 10-325 mg Tablet] 1 each PO TID 01/22/19 hydrOXYzine PAMOATE [Vistaril -] 50 mg PO DAILY 01/22/19 Apixaban [Eliquis -] 5 mg PO BID #30 tablet MDD 2 01/29/19 Digoxin [Lanoxin -] 0.125 mg PO Q48H #30 tablet 01/29/19 Furosemide [Lasix -] 40 mg PO BID@0600,1400 #30 tablet MDD 2 01/29/19 Metoprolol Tartrate [Lopressor -] 200 mg PO BID #60 tablet 01/29/19 Verapamil HCl [Calan -] 80 mg PO TID #90 tablet MDD 3 01/29/19 predniSONE [Deltasone -] 40 mg PO DAILY #14 tablet 01/29/19
[2019-01-30] MEDS ORDERED: METOLAZONE 2.5 MG TABLET (FP) PO ONE (13:30)
== END 2019-01-30 12:18 | disposition left against medical advice (07) | DRG 133 ==
LOC: JER 11:51 → JERBED 14:28 → J4W 20:21
PROVIDERS: ADMIT Family Medicine; ATTEND Family Medicine
DX: J96.22 Acute and chronic respiratory failure with hypercapnia (principal); E87.2 Acidosis; N17.9 Acute kidney failure, unspecified; D69.6 Thrombocytopenia, unspecified; J44.1 Chronic obstructive pulmonary disease with (acute) exacerbation; I13.0 Hypertensive heart and chronic kidney disease with heart failure and stage 1 through stage 4 chronic kidney disease, or unspecified chronic kidney disease; E11.22 Type 2 diabetes mellitus with diabetic chronic kidney disease; I50.32 Chronic diastolic (congestive) heart failure; I48.1 Persistent atrial fibrillation; N18.9 Chronic kidney disease, unspecified; E66.9 Obesity, unspecified; Z79.01 Long term (current) use of anticoagulants; Z88.0 Allergy status to penicillin; K80.20 Calculus of gallbladder without cholecystitis without obstruction; I45.10 Unspecified right bundle-branch block; K59.00 Constipation, unspecified; Z68.31 Body mass index [BMI] 31.0-31.9, adult
CPT/HCPCS: 36415; 36600; 70450-TC; 71045-TC-FY; 71046-TC-FY; 74176-TC; 76705-TC; 76775-TC; 80048; 80053; 80061; 80162; 81003; 82140; 82550; 82570; 82803; 82962; 83036; 83721; 83735; 83880; 84100; 84156; 84436; 84443; 84484; 85025; 85610; 85730; 86704; 86706; 86708; 86803; 87340; 93005; 93010; 93970-TC; 94640; 94660; 94761; 97116-GP; 97161-GP; 99283-25; J0131

== ENCOUNTER 2019-01-31 13:43 | Inpatient (IN) | payer OTHER ==
[2019-01-31] MEDS ORDERED: ASPIRIN 81 MG CHEWABLE TABLETS PO ONE ×2 (13:53→14:47)
[2019-01-31] MEDS ORDERED: SODIUM CHLORIDE 1,000 ML IV STA (13:53)
[2019-01-31] MEDS ORDERED: METOPROLOL TARTRATE 5 MG/5 ML VIAL ONE (13:55)
[2019-01-31] MEDS ORDERED: METOPROLOL TARTRATE 5 MG/5 ML VIAL IVPUSH ONE (13:56)
[2019-01-31] MEDS ORDERED: ALBUTEROL SO4 2.5/IPRATROPIUM 0.5 INH SOL 3 ML VIAL.NEB. NEB ONE (14:04)
[2019-01-31] MEDS: ALBUTEROL SO4 2.5/IPRATROPIUM 0.5 INH SOL 3 ML VIAL.NEB. NEB SCH ×4 (14:07→15:09)
[2019-01-31 14:08] LABS: BASO % 0.5 % (0-2.0); EOS % 0.6 % (0-4.5); HEMATOCRIT 45.6 % (32.4-45.2); HEMOGLOBIN 14.4 GM/dL (10.7-15.3); LYMPH % 23.3 % (8-40); MCH 29.1 pg (25.7-33.7); MCHC 31.6 g/dl (32.0-36.0); MEAN CELL VOLUME 92.1 fl (80-96); MEAN PLT VOLUME 11.3 fl (7.5-11.1); MONO % 13.2 % (3.8-10.2); NEUT % 62.4 % (42.8-82.8); PLATELET COUNT 145 K/MM3 (134-434); RBC 4.95 M/mm3 (3.60-5.2); WHITE BLOOD COUNT 12.6 K/mm3 (4.0-10.0)
--- NOTE | 2019-01-31 14:09 | PDOC ---
History of Present Illness - General Chief Complaint: Irregular Heart Beat Stated Complaint: SHORTNESS OF BREATH Time Seen by Provider: 01/31/19 13:52 - History of Present Illness Initial Comments: 58 year old female with PMH of HTN, Afib (on Eliquis), DM, chronic LE swelling, and AMA yesterday because she did not want to be cardioverted for her Afib with frequent RVR presenting with shortness of breath, knee pain, and hip pain after home visiting nurse saw her this morning. States that she is a [employer] and refused the procedure because of potential need for blood products. Currently her primary complaint is her chronic leg pains in the setting of "running out of percocets". Shed denies chest pain, nausea, vomiting, or other symptoms. 01/31/19 14:09 Past History - Past Medical History Allergies/Adverse Reactions: Allergies Allergy/AdvReac Type Severity Reaction Status Date / Time morphine Allergy Severe Verified 01/09/19 06:22 Penicillins Allergy Severe Hives Verified 01/09/19 06:22 tomato [Tomato] Allergy Unknown Verified 01/09/19 06:22 chocolate AdvReac Unknown Uncoded 01/09/19 06:22 Home Medications: Ambulatory Orders Albuterol Sulfate Inhaler - [Ventolin HFA Inhaler -] 1 inh IH QID PRN 05/21/18 Budesonide/Formeterol Fumarate [SYMBICORT 80/4.5mcg -] 2 puff IH BID #1 inhaler 12/28/18 Bupropion HCl [Wellbutrin Xl -] 150 mg PO DAILY tab.sr.24h 12/28/18 Gabapentin [Neurontin -] 300 mg PO TID capsule 01/15/19 Cholecalciferol (Vitamin D3) [Vitamin D -] 50,000 unit PO WEEKLY 01/22/19 Linagliptin [Tradjenta] 5 mg PO DAILY 01/22/19 Oxycodone HCl/Acetaminophen [Endocet 10-325 mg Tablet] 1 each PO TID 01/22/19 hydrOXYzine PAMOATE [Vistaril -] 50 mg PO DAILY 01/22/19 Apixaban [Eliquis -] 5 mg PO BID #30 tablet MDD 2 01/29/19 Furosemide [Lasix -] 40 mg PO BID@0600,1400 #30 tablet MDD 2 01/29/19 Atenolol [Tenormin -] 50 mg PO BID 01/31/19 Anemia: No Asthma: Yes Cancer: No Cardiac Disorders: Yes (A-fib) CVA: No COPD: Yes CHF: Yes Dementia: No Diabetes: Yes GI Disorders: No Disorders: Yes (CKD) HTN: Yes Hypercholesterolemia: Yes Liver Disease: No Seizures: No Thyroid Disease: Yes (Hypothyroid) - Surgical History Abdominal Surgery: No Appendectomy: No Cardiac Surgery: No Cholecystectomy: No Lung Surgery: No Neurologic Surgery: No Orthopedic Surgery: No - Immunization History Td Vaccination: Yes TDAP Vaccination: Yes Immunization Up to Date: Yes - Suicide/Smoking/Psychosocial Hx Smoking Status: Yes Smoking History: Unknown if ever smoked Years of Tobacco Use: 30 Have you smoked in the past 12 months: No Number of Cigarettes Smoked Daily: 4 Cigars Per Day: 0 'Breaking Loose' booklet given: 03/27/18 Hx Alcohol Use: No Drug/Substance Use Hx: No Substance Use Type: None Hx Substance Use Treatment: No Review of Systems - Review of Systems Constitutional: No: Chills, Diaphoresis, Fever HEENTM: No: Eye Pain, Blurred Vision, Tearing Respiratory: Yes: Shortness of Breath. No: Cough, Orthopnea Cardiac (ROS): Yes: Irregular Heart Rate, Palpitations. No: Chest Pain, Lightheadedness, Syncope, Chest Tightness ABD/GI: No: Diarrhea, Nausea, Vomiting : No: Burning, Dysuria, Discharge Musculoskeletal: Yes: Back Pain, Joint Pain, Joint Stiffness Integumentary: No: Erythema, Flushing, Lesions Neurological: No: Headache, Numbness, Paresthesia Psychiatric: Yes: Anxiety. No: Depression Hematologic/Lymphatic: Yes: Easy Bleeding (on AC). No: Anemia, Blood Clots *Physical Exam - Vital Signs Last Vital Signs Temp Pulse Resp BP Pulse Ox 99.7 F H 114 H 16 170/121 H 97 01/31/19 13:51 01/31/19 13:51 01/31/19 13:51 01/31/19 13:51 01/31/19 13:51 - Physical Exam General Appearance: Yes: Nourished, Appropriately Dressed, Apparent Distress, Mild Distress HEENT: positive: EOMI, ELENA, Normal ENT Inspection, Normal Voice Neck: positive: Trachea midline, Normal Thyroid, Supple. negative: Tender, Rigid Respiratory/Chest: positive: Respiratory Distress (mild). negative: Chest Tender, Lungs Clear (bilateral pulmonary field constriction), Normal Breath Sounds Cardiovascular: positive: Edema (b/l le pitting edema to the knees 3+), Irregularly Irregular. negative: Regular Rhythm, Regular Rate Gastrointestinal/Abdominal: positive: Normal Bowel Sounds, Flat, Soft. negative : Tender Lymphatic: negative: Adenopathy, Tenderness Musculoskeletal: positive: Normal Inspection. negative: Decreased Range of Motion Extremity: positive: Normal Capillary Refill, Normal Inspection, Normal Range of Motion. negative: Tender Integumentary: positive: Normal Color, Dry, Warm Neurologic: positive: Fully Oriented, Alert, Normal Mood/Affect, Normal Response , Motor Strength 01/10 ED Treatment Course - LABORATORY CBC & Chemistry Diagram: 01/31/19 13:49 01/31/19 13:49 - RADIOLOGY Radiology Studies Ordered: Category Date Time Status CHEST X-RAY PORTABLE* [RAD] Stat Radiology 01/31/19 13:53 Ordered Medical Decision Making - Medical Decision Making 58 year old female with with recent AMA yesterday after refusing cardioversion presenting with SOB and afib (in and out of RVR) with bilateral pulmonary restriction. Given metop 5 IV with decrease of her heart rate and subsequent duonebs with good relief of her breathing difficulty. Patient agrees to be cardioverted if need be now. 01/31/19 14:30 Patient's respiratory status remained stable and she was given cardizem 30 PO plus IV 10 push which isn't ideal to give, given recent metop IV push, but we decided to give this medication to prevent COPD/ pulm pathology exacerbation. 01/31/19 15:01 Patient doing wells/p Cardizem IV/ PO combo. Discussed with [employer] Huy representing Dr. Soto and she recommended discussing with ICU. ICU felt that this patietn could be managed on tele. 01/31/19 15:57 *DC/Admit/Observation/Transfer Diagnosis at time of Disposition: Atrial fibrillation with RVR, Lower extremity edema COPD (chronic obstructive pulmonary disease) Qualifiers: COPD type: COPD with acute exacerbation Qualified Code(s): J44.1 - Chronic obstructive pulmonary disease with (acute) exacerbation - Referrals - Patient Instructions - Post Discharge Activity
--- NOTE | 2019-01-31 14:13 | EKG ---
Test Reason : Blood Pressure : / mmHG Vent. Rate : 124 BPM Atrial Rate : 084 BPM P-R Int : 000 ms QRS Dur : 102 ms QT Int : 292 ms P-R-T Axes : 000 -49 138 degrees QTc Int : 419 ms ATRIAL FIBRILLATION WITH RAPID VENTRICULAR RESPONSE LEFT ANTERIOR FASCICULAR BLOCK VOLTAGE CRITERIA FOR LEFT VENTRICULAR HYPERTROPHY ABNORMAL ECG WHEN COMPARED WITH ECG OF 20-JAN-2019 14:22, NO SIGNIFICANT CHANGE WAS FOUND Confirmed by MD Chauncey, Vincent ([id number]) on 01/31/2019 2:12:50 PM Referred By: Confirmed By:Vincent Grossman MD
[2019-01-31 14:26] LABS: INR 1.3 (0.83-1.09); PROTHROMBIN TIME (PATIENT) 15.4 SEC (9.7-13.0)
[2019-01-31] MEDS ORDERED: ACETAMINOPHEN 1000 MG/100 ML VIAL (NON FORMULARY) IVPB ONE (14:35)
[2019-01-31 14:38] LABS: ALBUMIN 3.7 g/dl (3.4-5.0); BILIRUBIN,TOTAL 1.3 mg/dL (0.2-1); CALCIUM 8.7 mg/dL (8.5-10.1); CREATININE 1.7 mg/dL (0.55-1.3); MAGNESIUM 2.4 mg/dL (1.8-2.4); N-TERMINAL BNP 30049.2 pg/ml (5-125); POTASSIUM 3.1 mmol/L (3.5-5.1); TOT PROT 7.1 g/dl (6.4-8.2)
[2019-01-31] MEDS ORDERED: ASPIRIN 81 MG CHEWABLE TABLETS ONE ×2 (14:38→14:51)
[2019-01-31] MEDS ORDERED: ACETAMINOPHEN INJECTION 100 ML IVPB ONE (14:38)
--- NOTE | 2019-01-31 14:39 | PDOC ---
Attending Attestation - Resident Resident Name: Brayden Jansen - ED Attending Attestation I have performed the following: I have examined & evaluated the patient, The case was reviewed & discussed with the resident, I agree w/resident's findings & plan, Exceptions are as noted - HPI HPI: 01/31/19 14:33 58-year-old female with history of hypertension, atrial fibrillation on eliquis , DM, chronic LE swelling returns to emergency department for atrial fibrillation in rapid ventricular response. The patient was recently admitted but had left AGAINST MEDICAL ADVICE. At that time, the patient was recommended cardioversion but the patient refused at that time. However, the patient left. However, the patient now had reconsidered and is now considering to cardioversion. Patient patient denies a chest pain or shortness of breath. Patient reports mages history of asthma. Patient reports she feels slightly wheezy with metoprolol given here in the ER. Otherwise has no other complaints. - Physicial Exam PE: 01/31/19 14:34 GENERAL: Awake, alert, and fully oriented, in no acute distress HEAD: No signs of trauma EYES: EOMI, sclera anicteric, conjunctiva clear ENT: Auricles normal inspection, hearing grossly normal, nares patent, NECK: Normal ROM, supple,es LUNGS: Breath sounds equal, clear to auscultation bilaterally. No wheezes, and no crackles HEART: Irregular rate and rhythm, normal S1 and S2, no murmurs, rubs or gallops ABDOMEN: Soft, nontender, s. No guarding, no rebound. No masses EXTREMITIES: Normal range of motion, 1+ edema bilaterally. No clubbing or cyanosis. No cords, erythema, or tenderness NEUROLOGICAL: Cranial nerves II through XII grossly intact. Normal speecht SKIN: Warm, Dry, normal turgor, no rashes or lesions noted. - Medical Decision Making 01/31/19 14:34 Vital Signs Temp Pulse Resp BP Pulse Ox 99.7 F H 114 H 16 150/116 H 97 01/31/19 13:51 01/31/19 13:51 01/31/19 13:51 01/31/19 14:07 01/31/19 13:51 The patient is in afib with rapid ventricular response. Given the wheezing after giving metoprolol, we'll switch to diltiazem. We'll admit the patient to the hospital for further cardiac workup. Patient noted a temperature of 99.7. We'll further investigate. 01/31/19 15:50 CBC, BMP 01/31/19 13:49 01/31/19 13:49 CMP Sodium 142 mmol/L (136-145) 01/31/19 13:49 Potassium 3.1 mmol/L (3.5-5.1) L 01/31/19 13:49 Chloride 96 mmol/L (98-107) L 01/31/19 13:49 Carbon Dioxide 38 mmol/L (21-32) H 01/31/19 13:49 Anion Gap 7 MMOL/L (8-16) L 01/31/19 13:49 BUN 42 mg/dL (7-18) H 01/31/19 13:49 Creatinine 1.7 mg/dL (0.55-1.3) H 01/31/19 13:49 Est GFR (CKD-EPI)AfAm 37.34 01/31/19 13:49 Est GFR (CKD-EPI)NonAf 32.21 01/31/19 13:49 Random Glucose 116 mg/dL (74-106) H 01/31/19 13:49 Calcium 8.7 mg/dL (8.5-10.1) 01/31/19 13:49 Magnesium 2.4 mg/dL (1.8-2.4) 01/31/19 13:49 Total Bilirubin 1.3 mg/dL (0.2-1) H 01/31/19 13:49 AST 22 U/L (15-37) 01/31/19 13:49 ALT 58 U/L (13-61) 01/31/19 13:49 Alkaline Phosphatase 77 U/L (45-117) 01/31/19 13:49 Creatine Kinase 65 U/L (26-192) 01/31/19 13:49 Troponin I 0.04 ng/ml (0.00-0.05) 01/31/19 13:49 B-Natriuretic Peptide 43378.2 pg/ml (5-125) H 01/31/19 13:49 Total Protein 7.1 g/dl (6.4-8.2) 01/31/19 13:49 Albumin 3.7 g/dl (3.4-5.0) 01/31/19 13:49 Temp was rectal temp. Will observe the temperature. Pt's troponin is 0.04. Will admit patient for further evaluation for atrial fibrillation and lab abnormalities. 01/31/19 15:57 Pt's heart rate improved with IV diltiazem and PO diltiazem. Heart Score/ECG Review #1 ECG reviewed & interpreted by me at: 13:45 01/31/19 14:41 afibr 124 LAFB, LVH, no std/victor manuel, ST & T wave abnormality, QTC 419 msec
[2019-01-31] MEDS ORDERED: dilTIAZem HCL 125 MG/25 ML - 25 ML VIAL ONE (14:53)
[2019-01-31] MEDS ORDERED: dilTIAZem HCL 30 MG TABLET (FP) ONE (14:53)
[2019-01-31] MEDS ORDERED: dilTIAZem HCL 30 MG TABLET (FP) PO ONE (15:00)
[2019-01-31] MEDS ORDERED: dilTIAZem HCL 50 MG/10 ML - 10 ML VIAL IVPUSH ONE ×2 (15:00→18:04)
[2019-01-31] MEDS ORDERED: POTASSIUM CHLORIDE TABS 20 MEQ TABLET.ER (FP) PO ONE ×2 (15:44→16:15)
[2019-01-31] MEDS ORDERED: CHOLECALCIFEROL (VIT D3) 400 UNIT (10 MCG) TABLET PO SCH (16:15)
--- NOTE | 2019-01-31 17:09 | HP ---
Admitting History and Physical - Admission Chief Complaint: SOB and Tachycardia History of Present Illness: Patient is a 58 y/o female with past medical history of HTN, Afib on Eliquis, DM , chronic LE swelling. Patient signed out AMA yesterday and returned to ER today with complaints of SOB and tachycardia at home. In ER patient was noted with HR in 140s and EKG showed Afib with RVR. Denies fever, chills, chest pain, palpitations, SOB. Denies nausea, vomiting, diarrhea, abdominal pain, constipation. 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: Other (Sciatica) Cardiovascular: Yes: AFIB, CHF, HTN Pulmonary: Yes: COPD Renal/: Yes: Renal Inusuff (CKD) Heme/Onc: Yes: Anemia Musculoskeletal: Yes: Osteoarthritis Endocrine: Yes: Diabetes Mellitus - Smoking History Smoking history: Unknown if ever smoked Have you smoked in the past 12 months: No Aproximately how many cigarettes per day: 4 - Alcohol/Substance Use Hx Alcohol Use: No History of Substance Use: reports: None - Social History ADL: Independent History of Recent Travel: No Home Medications - Allergies Allergies/Adverse Reactions: Allergies Allergy/AdvReac Type Severity Reaction Status Date / Time morphine Allergy Severe Verified 01/09/19 06:22 Penicillins Allergy Severe Hives Verified 01/09/19 06:22 tomato [Tomato] Allergy Unknown Verified 01/09/19 06:22 chocolate AdvReac Unknown Uncoded 01/09/19 06:22 - Home Medications Home Medications: Ambulatory Orders Albuterol Sulfate Inhaler - [Ventolin HFA Inhaler -] 1 inh IH QID PRN 05/21/18 Budesonide/Formeterol Fumarate [SYMBICORT 80/4.5mcg -] 2 puff IH BID #1 inhaler 12/28/18 Bupropion HCl [Wellbutrin Xl -] 150 mg PO DAILY tab.sr.24h 12/28/18 Gabapentin [Neurontin -] 300 mg PO TID capsule 01/15/19 Cholecalciferol (Vitamin D3) [Vitamin D -] 50,000 unit PO WEEKLY 01/22/19 Linagliptin [Tradjenta] 5 mg PO DAILY 01/22/19 Oxycodone HCl/Acetaminophen [Endocet 10-325 mg Tablet] 1 each PO TID 01/22/19 hydrOXYzine PAMOATE [Vistaril -] 50 mg PO DAILY 01/22/19 Apixaban [Eliquis -] 5 mg PO BID #30 tablet MDD 2 01/29/19 Furosemide [Lasix -] 40 mg PO BID@0600,1400 #30 tablet MDD 2 01/29/19 Atenolol [Tenormin -] 50 mg PO BID 01/31/19 Family Disease History - Family Disease History Family Disease History: Other: Father (: Fell down stairs), Mother (: 80 : CHF), Brother (2, 1 unclear causes), Sister (4 sis: 1 : [place], 1 unclear cause), Son (3), Daughter (3) Review of Systems - Review of Systems Constitutional: reports: Weakness Eyes: reports: No Symptoms HENT: reports: No Symptoms Neck: reports: No Symptoms Cardiovascular: reports: Edema (B/L lower extremity) Respiratory: reports: SOB Gastrointestinal: reports: No Symptoms Genitourinary: reports: No Symptoms Breasts: reports: No Symptoms Reported Musculoskeletal: reports: No Symptoms Integumentary: reports: No Symptoms Neurological: reports: No Symptoms Endocrine: reports: No Symptoms Hematology/Lymphatic: reports: No Symptoms Psychiatric: reports: No Symptoms Physical Examination Vital Signs: Vital Signs Temperature 99.7 F H 01/31/19 13:51 Pulse Rate 113 H 01/31/19 16:10 Respiratory Rate 18 01/31/19 16:10 Blood Pressure 147/93 01/31/19 16:10 O2 Sat by Pulse Oximetry (%) 98 01/31/19 16:10 Constitutional: Yes: No Distress, Calm Eyes: Yes: Conjunctiva Clear HENT: Yes: Atraumatic Neck: Yes: Supple Cardiovascular: Yes: Tachycardia, Pulse Irregular Respiratory: Yes: Regular, Diminished Gastrointestinal: Yes: Normal Bowel Sounds, Soft Musculoskeletal: Yes: WNL Extremities: Yes: WNL Edema: Yes Edema: LLE: 3+, RLE: 3+ Neurological: Yes: Alert, Oriented Psychiatric: Yes: Alert, Oriented Labs: CBC, BMP 01/31/19 13:49 01/31/19 13:49 Imaging - Results EKG: Report Reviewed Problem List - Problems (1) Atrial fibrillation with rapid ventricular response Assessment/Plan: -tele monitoring -cardiology consult -Verapimil -Eliquis -Lopressor 5mg IVP PRN for HR >110bpm Code(s): I48.91 - UNSPECIFIED ATRIAL FIBRILLATION (2) Leg edema Assessment/Plan: -Furosemide -1L fluid restriction -daily weights -cardiology consult Code(s): R60.0 - LOCALIZED EDEMA (3) COPD (chronic obstructive pulmonary disease) Assessment/Plan: -Pulm consult -bronchodilators -prednisone -O2 via NC -keep SpO2 >90% -Symbicort Code(s): J44.9 - CHRONIC OBSTRUCTIVE PULMONARY DISEASE, UNSPECIFIED Qualifiers: COPD type: COPD with acute exacerbation Qualified Code(s): J44.1 - Chronic obstructive pulmonary disease with (acute) exacerbation (4) JOSEPH (acute kidney injury) Assessment/Plan: -BUN/Cr 42/1.7 -renal on board -monitor renal function daily Code(s): N17.9 - ACUTE KIDNEY FAILURE, UNSPECIFIED (5) Acute and chronic respiratory failure Assessment/Plan: -Pulm consult -bronchodilators -prednisone -O2 via NC -keep SpO2 >90% -Symbicort Code(s): J96.20 - ACUTE AND CHR RESP FAILURE, UNSP W HYPOXIA OR HYPERCAPNIA (6) Hypertension Assessment/Plan: -Hydralazine -low Na diet Code(s): I10 - ESSENTIAL (PRIMARY) HYPERTENSION Assessment/Plan see problem list dvt ppx
[2019-01-31] MEDS ORDERED: ALBUTEROL SO4 0.083% IH SOL 2.5 MG/3 ML VIAL.NEB. NEB PRN (18:48)
[2019-01-31] MEDS ORDERED: PT OWN MED DRAWER 7, Y5N ONE ×2 (20:32→21:27)
[2019-01-31] MEDS: METOPROLOL TARTRATE 5 MG/5 ML VIAL IVPUSH PRN (20:51)
[2019-01-31] MEDS ORDERED: PATIENT'S OWN MEDICATION (NON-FORMULARY) (Oxycodone Hcl/Acetaminophen [Endocet 10-325 Mg T PO PRN (21:10)
[2019-01-31] MEDS ORDERED: PATIENT'S OWN MEDICATION (NON-FORMULARY) (Oxycodone Hcl/Acetaminophen [Endocet 10-325 Mg T PO SCH (22:00)
[2019-01-31] MEDS: ATENOLOL 50 MG TABLET (FP) PO SCH (22:21)
[2019-01-31] MEDS: APIXABAN 5 MG TABLET PO SCH (22:21)
[2019-01-31] MEDS: VERAPAMIL HCL 80 MG TABLET PO SCH (22:21)
[2019-01-31] MEDS: GABAPENTIN 300 MG CAPSULE (FP) PO SCH (22:21)
[2019-01-31] MEDS: oxyCODONE HCL 5 MG TABLET PO PRN (23:10)
[2019-01-31] MEDS: BUDESONIDE/FORMETEROL FUMARATE 80/4.5 mcg INHALER IH SCH (23:40)
[2019-02-01] MEDS: FUROSEMIDE 40 MG TABLET (FP) PO SCH ×2 (06:07→14:05)
[2019-02-01] MEDS: oxyCODONE HCL 5 MG TABLET PO PRN ×3 (06:07→21:23)
[2019-02-01] MEDS: GABAPENTIN 300 MG CAPSULE (FP) PO SCH ×3 (06:07→21:22)
[2019-02-01] MEDS: VERAPAMIL HCL 80 MG TABLET PO SCH ×3 (06:07→21:22)
[2019-02-01] MEDS: METOPROLOL TARTRATE 5 MG/5 ML VIAL IVPUSH PRN ×3 (06:15→18:01)
[2019-02-01 07:09] LABS: BASO % 0.5 % (0-2.0); EOS % 0.9 % (0-4.5); HEMATOCRIT 42.5 % (32.4-45.2); HEMOGLOBIN 13.5 GM/dL (10.7-15.3); LYMPH % 16.6 % (8-40); MCH 29.4 pg (25.7-33.7); MCHC 31.9 g/dl (32.0-36.0); MEAN CELL VOLUME 92.3 fl (80-96); MEAN PLT VOLUME 10.6 fl (7.5-11.1); MONO % 12.2 % (3.8-10.2); NEUT % 69.8 % (42.8-82.8); PLATELET COUNT 105 K/MM3 (134-434); RBC 4.61 M/mm3 (3.60-5.2); WHITE BLOOD COUNT 11.8 K/mm3 (4.0-10.0)
[2019-02-01 07:47] LABS: ALBUMIN 3.3 g/dl (3.4-5.0); BILIRUBIN,TOTAL 1.3 mg/dL (0.2-1); CALCIUM 8.6 mg/dL (8.5-10.1); CREATININE 1.5 mg/dL (0.55-1.3); MAGNESIUM 2.3 mg/dL (1.8-2.4); N-TERMINAL BNP 24958.2 pg/ml (5-125); PHOSPHOROUS 3.6 mg/dL (2.5-4.9); POTASSIUM 3.7 mmol/L (3.5-5.1); TOT PROT 6.1 g/dl (6.4-8.2)
--- NOTE | 2019-02-01 09:15 | PN ---
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 (short form) - Note 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: PULMONARY CONSULTATION DICTATED 02/01/19 IMP AFIB WITH RVR COPD O2 DEPENDENT WITH CHRONIC HYPOXEMIC/HYPERCAPNEIC RESPIRATORY FAILURE DIASTOLIC HF CKD TOBACCO ABUSE LOWER EXTREMITY EDEMA DM PLAN INHALED BRONCHODILATORS O2 RATE CONTROL PER CARDIOLOGY LASIX CARDIOVERSION PER CARDIOLOGY SMOKING CESSATION COUNSELED MONITOR LYTES,RENAL FUNCTION DR ROLLE Problem List - Problems (1) Chronic respiratory failure with hypoxia and hypercapnia Code(s): J96.11 - CHRONIC RESPIRATORY FAILURE WITH HYPOXIA; J96.12 - CHRONIC RESPIRATORY FAILURE WITH HYPERCAPNIA (2) Atrial fibrillation with rapid ventricular response Code(s): I48.91 - UNSPECIFIED ATRIAL FIBRILLATION (3) Leg edema Code(s): R60.0 - LOCALIZED EDEMA (4) COPD (chronic obstructive pulmonary disease) Code(s): J44.9 - CHRONIC OBSTRUCTIVE PULMONARY DISEASE, UNSPECIFIED Qualifiers: COPD type: COPD with acute exacerbation Qualified Code(s): J44.1 - Chronic obstructive pulmonary disease with (acute) exacerbation (5) Cigarette nicotine dependence Code(s): F17.200 - NICOTINE DEPENDENCE, UNSPECIFIED, UNCOMPLICATED (6) Diabetes Code(s): E11.9 - TYPE 2 DIABETES MELLITUS WITHOUT COMPLICATIONS Qualifiers: Diabetes mellitus type: type 2
[2019-02-01] MEDS: predniSONE 20 MG TABLET (UD) PO SCH (09:47)
[2019-02-01] MEDS: APIXABAN 5 MG TABLET PO SCH ×2 (09:47→21:22)
[2019-02-01] MEDS: sitaGLIPtin PHOSPHATE 50 MG TABLET PO SCH (09:47)
[2019-02-01] MEDS: ATENOLOL 50 MG TABLET (FP) PO SCH (09:47)
[2019-02-01] MEDS: BUDESONIDE/FORMETEROL FUMARATE 80/4.5 mcg INHALER IH SCH ×2 (09:48→21:27)
[2019-02-01] MEDS ORDERED: PT OWN MED DRAWER 7, Y5N ONE (09:54)
[2019-02-01] MEDS: ACETAMINOPHEN 325 MG TABLET (FP) PO PRN ×2 (10:06→21:22)
--- NOTE | 2019-02-01 10:29 | CONS ---
PULMONARY CONSULTATION DATE OF CONSULTATION: 02/01/2019 REFERRING PHYSICIAN: Apolonia Soto MD HISTORY OF PRESENT ILLNESS: The patient is a 58-year-old black female known to me from previous hospitalization, past medical history of chronic obstructive pulmonary disease with chronic hypoxemia and hypercapnia maintained on supplemental O2, longstanding history of tobacco use, quit approximately 2 to 3 days ago, hypertension, atrial fibrillation on Eliquis, diabetes, chronic lower extremity edema, recently discharged from [facility] after rapid atrial fibrillation and CHF and COPD exacerbation, signed out against medical advice on January 30, and then returned back to [facility] ER on January 31 secondary to considering cardioversion. Patient on previous hospitalization was advised cardioversion, but she refused. She signed out against advice. Patient apparently left the hospital and then reconsidered and returned back to undergo the procedure. Patient denies any chest pain, nausea, vomiting, diaphoresis. Denies any shortness of breath. Denies any cough or hemoptysis. She was admitted to telemetry for further management. PAST MEDICAL HISTORY: Again includes COPD, atrial fibrillation, hypertension, chronic lower extremity edema, diabetes, chronic kidney disease, hypothyroid, hypercholesterolemia. SOCIAL HISTORY: Tobacco Use: Quit a few days ago. No occupational exposures. CURRENT MEDICATIONS: Include Symbicort, lisinopril, prednisone, Tylenol, Eliquis, Neurontin, Wellbutrin, Vistaril, albuterol, Tenormin, Lopressor, Calan, Januvia, Lasix, Roxicodone, Drisdol. REVIEW OF SYSTEMS: No chest pain. Positive palpitations. No shortness of breath. No cough. No hemoptysis. No abdominal pain. Positive lower extremity edema. PHYSICAL EXAMINATION: General: The patient is a well-developed, well-nourished female awake, alert, appears in no acute distress. Vital Signs: She is afebrile. Blood pressure is 136/93. Heart rate is 124, ranging 124 to 147 and irregular. O2 saturation is 95% on 2 L nasal cannula. HEENT: Normocephalic, atraumatic. Neck: Supple. Heart: Irregular irregular S1, S2, tachycardic. Chest: Few scattered bilateral wheezes. Abdomen: Soft, bowel sounds are positive. Extremities: Bilateral lower extremity edema. LABORATORIES: WBC is 11.8, hemoglobin 13.5, hematocrit 42.5 with a platelet count of 105,000. Chemistries: BUN 38, creatinine 1.5. Chest x-ray not performed. IMPRESSION: 1. Atrial fibrillation with rapid ventricular response. 2. Chronic obstructive pulmonary disease with chronic hypoxemia with hypercapnia. 3. Diastolic heart failure. 4. Chronic kidney disease. 5. History of tobacco abuse. PLAN: Continue with inhaled bronchodilators. Rate control as per cardiology and cardioversion as per cardiology. Supplemental O2. Lasix. Daily weight. Continue Eliquis. DWAYNE ROLLE M.D. [id number] MTDD
--- NOTE | 2019-02-01 10:43 | PN ---
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, Physician Chief Complaint: Afib with RVR CKD Lower Extremity Edema History of Present Illness: Previous notes and events reviewed awake and alert NAD HR is labile ranging from 90s to 150 patient agrees to cardioversion denies chest pain or SOB complain of mouth pain noted with white patches in mouth nystatin - Current Medication List Current Medications: Active Medications Acetaminophen (Tylenol -) 325 mg PO Q8H PRN PRN Reason: PAIN LEVEL 6-10 Last Admin: 02/01/19 10:06 Dose: 325 mg Albuterol Sulfate (Ventolin 0.083% Nebulizer Soln -) 1 amp NEB Q6H PRN PRN Reason: SHORT OF BREATH/WHEEZING Apixaban (Eliquis -) 5 mg PO BID [facility] Last Admin: 02/01/19 09:47 Dose: 5 mg Atenolol (Tenormin -) 50 mg PO BID [facility] Last Admin: 02/01/19 09:47 Dose: 50 mg Budesonide/Formoterol Fumarate (Symbicort 80/4.5mcg -) 2 puff IH BID [facility] Last Admin: 02/01/19 09:48 Dose: 2 puff Bupropion HCl (Wellbutrin Xl -) 150 mg PO DAILY [facility] Last Admin: 02/01/19 09:47 Dose: 150 mg Ergocalciferol (Drisdol -) 50,000 unit PO Foster@1000 [facility] Furosemide (Lasix -) 40 mg PO BIDLASIX [facility] Last Admin: 02/01/19 06:07 Dose: 40 mg Gabapentin (Neurontin -) 300 mg PO TID [facility] Last Admin: 02/01/19 06:07 Dose: 300 mg Hydroxyzine Pamoate (Vistaril -) 50 mg PO DAILY [facility] Metoprolol Tartrate (Lopressor Injection -) 5 mg IVPUSH Q4H PRN PRN Reason: HYPERTENSION Last Admin: 02/01/19 06:15 Dose: 5 mg Oxycodone HCl (Roxicodone -) 10 mg PO Q8H PRN PRN Reason: PAIN LEVEL 6-10 Last Admin: 02/01/19 06:07 Dose: 10 mg Prednisone (Deltasone -) 40 mg PO DAILY [facility] Last Admin: 02/01/19 09:47 Dose: 40 mg Sitagliptin Phosphate (Januvia -) 50 mg PO DAILY [facility] Last Admin: 02/01/19 09:47 Dose: 50 mg Verapamil HCl (Calan -) 80 mg PO TID JOLENE Last Admin: 02/01/19 06:07 Dose: 80 mg - Objective Vital Signs: Vital Signs Temperature 98.5 F 02/01/19 08:47 Pulse Rate 124 H 02/01/19 08:47 Respiratory Rate 20 02/01/19 08:47 Blood Pressure 136/93 02/01/19 08:47 O2 Sat by Pulse Oximetry (%) 95 02/01/19 08:47 Constitutional: Yes: No Distress, Calm Eyes: Yes: Conjunctiva Clear HENT: Yes: Atraumatic Cardiovascular: Yes: Tachycardia, Pulse Irregular Respiratory: Yes: Regular, CTA Bilaterally Gastrointestinal: Yes: Normal Bowel Sounds, Soft Musculoskeletal: Yes: Muscle Weakness Extremities: Yes: WNL Edema: Yes Edema: LLE: 3+, RLE: 3+ Neurological: Yes: Alert, Oriented Psychiatric: Yes: Alert, Oriented Labs: CBC, BMP 02/01/19 06:00 02/01/19 06:00 INR, PTT INR 1.30 (0.83-1.09) H 01/31/19 13:49 Problem List - Problems (1) Atrial fibrillation with rapid ventricular response Assessment/Plan: -tele monitoring -patient agrees to cardioversion -cardiology consult pendng -Verapimil -Metoprolol, Digoxin -Eliquis -Lopressor 5mg IVP PRN for HR >110bpm Code(s): I48.91 - UNSPECIFIED ATRIAL FIBRILLATION (2) Leg edema Assessment/Plan: -Furosemide -1L fluid restriction -daily weights -cardiology consult Code(s): R60.0 - LOCALIZED EDEMA (3) COPD (chronic obstructive pulmonary disease) Assessment/Plan: -Pulm consult -bronchodilators -prednisone -O2 via NC -keep SpO2 >90% -Symbicort Code(s): J44.9 - CHRONIC OBSTRUCTIVE PULMONARY DISEASE, UNSPECIFIED Qualifiers: COPD type: COPD with acute exacerbation Qualified Code(s): J44.1 - Chronic obstructive pulmonary disease with (acute) exacerbation (4) JOSEPH (acute kidney injury) Assessment/Plan: -BUN/Cr 38/1.5 -renal on board -monitor renal function daily Code(s): N17.9 - ACUTE KIDNEY FAILURE, UNSPECIFIED (5) Acute and chronic respiratory failure Assessment/Plan: -Pulm consult -bronchodilators -prednisone -O2 via NC -keep SpO2 >90% -Symbicort Code(s): J96.20 - ACUTE AND CHR RESP FAILURE, UNSP W HYPOXIA OR HYPERCAPNIA (6) Hypertension Assessment/Plan: -Hydralazine -low Na diet Code(s): I10 - ESSENTIAL (PRIMARY) HYPERTENSION (7) Thrush Assessment/Plan: -nystatin Code(s): B37.0 - CANDIDAL STOMATITIS Assessment/Plan see problem list dvt ppx
--- NOTE | 2019-02-01 10:55 | CONSULT ---
Consult Consult Specialty:: Nephrology Reason for Consultation:: CKD - History of Present Illness Chief Complaint: shortness of breath and she "ran out of percocet" History of Present Illness: Pt is a 58 year old female with pmhx of htn, a-fib, DM, and ckd who left [facility] yesterday. She came back to the ER with tachycardia and sob. She also says that she ran out of percocet. She denies chest pain. She complains of edema. She had refused cardioversion on last admission however she now agrees to have it. 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: Other (Sciatica) Cardio/Vascular: Yes: AFIB, CHF, HTN Pulmonary: Yes: COPD Renal/: Yes: Renal Inusuff (CKD) Musculoskeletal: Yes: Osteoarthritis Endocrine: Yes: Diabetes Mellitus - Alcohol/Substance Use Hx Alcohol Use: No History of Substance Use: reports: None - Smoking History Smoking history: Unknown if ever smoked Have you smoked in the past 12 months: No Aproximately how many cigarettes per day: 4 - Social History Usual Living Arrangement: With Spouse (and two grand children) ADL: Independent History of Recent Travel: No Home Medications - Allergies Allergies/Adverse Reactions: Allergies Allergy/AdvReac Type Severity Reaction Status Date / Time morphine Allergy Severe Verified 01/09/19 06:22 Penicillins Allergy Severe Hives Verified 01/09/19 06:22 tomato [Tomato] Allergy Unknown Verified 01/09/19 06:22 chocolate AdvReac Unknown Uncoded 01/09/19 06:22 - Home Medications Home Medications: Ambulatory Orders Albuterol Sulfate Inhaler - [Ventolin HFA Inhaler -] 1 inh IH QID PRN 05/21/18 Budesonide/Formeterol Fumarate [SYMBICORT 80/4.5mcg -] 2 puff IH BID #1 inhaler 12/28/18 Bupropion HCl [Wellbutrin Xl -] 150 mg PO DAILY tab.sr.24h 12/28/18 Gabapentin [Neurontin -] 300 mg PO TID capsule 01/15/19 Cholecalciferol (Vitamin D3) [Vitamin D -] 50,000 unit PO WEEKLY 01/22/19 Linagliptin [Tradjenta] 5 mg PO DAILY 01/22/19 Oxycodone HCl/Acetaminophen [Endocet 10-325 mg Tablet] 1 each PO TID 01/22/19 hydrOXYzine PAMOATE [Vistaril -] 50 mg PO DAILY 01/22/19 Apixaban [Eliquis -] 5 mg PO BID #30 tablet MDD 2 01/29/19 Furosemide [Lasix -] 40 mg PO BID@0600,1400 #30 tablet MDD 2 01/29/19 Atenolol [Tenormin -] 50 mg PO BID 01/31/19 Family Disease History - Family Disease History Family Disease History: Other: Father (: Fell down stairs), Mother (: 80 : CHF), Brother (2, 1 unclear causes), Sister (4 sis: 1 : [place], 1 unclear cause), Son (3), Daughter (3) Review of Systems - Review of Systems Constitutional: reports: Malaise. denies: Chills Eyes: reports: No Symptoms HENT: reports: No Symptoms, Ocular Prosthesis Cardiovascular: reports: Edema, Palpitations, Shortness of Breath Respiratory: reports: SOB, SOB on Exertion Genitourinary: reports: No Symptoms Musculoskeletal: reports: No Symptoms Integumentary: reports: No Symptoms Neurological: reports: No Symptoms Endocrine: reports: No Symptoms Hematology/Lymphatic: reports: No Symptoms Psychiatric: reports: No Symptoms Physical Exam Vital Signs: Vital Signs Temperature 98.5 F 02/01/19 08:47 Pulse Rate 150 H 02/01/19 10:46 Respiratory Rate 16 02/01/19 10:40 Blood Pressure 154/116 H 02/01/19 10:46 O2 Sat by Pulse Oximetry (%) 95 02/01/19 08:47 Constitutional: Yes: Calm Eyes: Yes: Conjunctiva Clear HENT: Yes: Atraumatic Neck: Yes: Supple Cardiovascular: Yes: Tachycardia, Pulse Irregular, S1, S2 Respiratory: Yes: CTA Bilaterally, On Nasal O2 Gastrointestinal: Yes: Soft Renal/: Yes: WNL Musculoskeletal: Yes: WNL Edema: Yes Edema: LLE: 2+, RLE: 2+ Neurological: Yes: Oriented Psychiatric: Yes: Oriented Labs: CBC, BMP 02/01/19 06:00 02/01/19 06:00 Laboratory Tests 01/31/19 01/31/19 02/01/19 13:49 13:49 06:00 WBC 12.6 H 11.8 H Hgb 14.4 13.5 Sodium 142 Potassium 3.1 L BUN Creatinine 1.7 H 02/01/19 06:00 WBC Hgb Sodium 143 Potassium 3.7 BUN 38 H Creatinine 1.5 H Assessment/Plan Current Medications Generic Name Dose Route Start Last Admin Trade Name Freq PRN Reason Stop Dose Admin Acetaminophen 325 mg 01/31/19 22:39 02/01/19 10:06 Tylenol - PO 325 mg Q8H PRN Administration PAIN LEVEL 6-10 Albuterol Sulfate 1 amp 01/31/19 18:48 Ventolin 0.083% Nebulizer Soln - NEB Q6H PRN SHORT OF BREATH/WHEEZING Apixaban 5 mg 01/31/19 22:00 02/01/19 09:47 Eliquis - PO 5 mg BID JOLENE Administration Budesonide/Formoterol Fumarate 2 puff 01/31/19 22:00 02/01/19 09:48 Symbicort 80/4.5mcg - IH 2 puff BID JOLENE Administration Bupropion HCl 150 mg 02/01/19 10:00 02/01/19 09:47 Wellbutrin Xl - PO 150 mg DAILY JOLENE Administration Ergocalciferol 50,000 unit 02/07/19 10:00 Drisdol - PO Foster@1000 JOLENE Furosemide 40 mg 02/01/19 06:00 02/01/19 06:07 Lasix - PO 40 mg BIDLASIX JOLENE Administration Gabapentin 300 mg 01/31/19 22:00 02/01/19 06:07 Neurontin - PO 300 mg TID JOLENE Administration Hydroxyzine Pamoate 50 mg 02/01/19 10:00 Vistaril - PO DAILY JOLENE Metoprolol Tartrate 5 mg 01/31/19 18:53 02/01/19 10:46 Lopressor Injection - IVPUSH 5 mg Q4H PRN Administration HYPERTENSION Metoprolol Tartrate 200 mg 02/01/19 22:00 Lopressor - PO BID JOLENE Oxycodone HCl 10 mg 01/31/19 22:39 02/01/19 06:07 Roxicodone - PO 10 mg Q8H PRN Administration PAIN LEVEL 6-10 Prednisone 40 mg 02/01/19 10:00 02/01/19 09:47 Deltasone - PO 40 mg DAILY JOLENE Administration Sitagliptin Phosphate 50 mg 02/01/19 10:00 02/01/19 09:47 Januvia - PO 50 mg DAILY JOLENE Administration Verapamil HCl 80 mg 01/31/19 22:00 02/01/19 06:07 Calan - PO 80 mg TID JOLENE Administration Impression 1. CKD 2. CHF 3. a-fib 4. lower ext edema 5. COPD 6. active smoker Plan - resume lasix - cardio follow up - monitor renal function - avoid nephrotoxins - ua neg for blood or protein
[2019-02-01] MEDS: NYSTATIN 500,000 UNITS/5 ML SUSPENSION PO SCH ×2 (11:04→18:00)
[2019-02-01] MEDS: DIGOXIN 0.125 MG TABLET (FP) PO SCH (11:04)
[2019-02-01] MEDS: hydrOXYzine PAMOATE 50 MG CAPSULE (FP) PO SCH (11:36)
--- NOTE | 2019-02-01 15:03 | EKG ---
Test Reason : Blood Pressure : / mmHG Vent. Rate : 107 BPM Atrial Rate : 076 BPM P-R Int : 000 ms QRS Dur : 104 ms QT Int : 356 ms P-R-T Axes : 000 -48 143 degrees QTc Int : 475 ms ATRIAL FIBRILLATION WITH RAPID VENTRICULAR RESPONSE WITH PREMATURE VENTRICULAR OR ABERRANTLY CONDUCTED COMPLEXES LEFT ANTERIOR FASCICULAR BLOCK MODERATE VOLTAGE CRITERIA FOR LVH, MAY BE NORMAL VARIANT POOR R WAVE PROGRESSION ABNORMAL ECG WHEN COMPARED WITH ECG OF 31-JAN-2019 13:42, NO SIGNIFICANT CHANGE WAS FOUND Confirmed by МАРИЯ MIDDLETON MD ([id number]) on 02/01/2019 3:03:39 PM Referred By: Kaden GUNTER Confirmed By:МАРИЯ MIDDLETON MD
--- NOTE | 2019-02-01 16:58 | CON.CARD ---
Consult Consult Specialty:: Cardiology Referred by:: Dr. Soto Reason for Consultation:: Atrial fibrillation - History of Present Illness Chief Complaint: Atrial fibrillation History of Present Illness: 58-year-old woman with a PMHx of HTN, persistent atrial fibrillation on Eliquis , DM, chronic diastolic CHF, COPD, CKD, chronic LE swelling readmitted 2018 one day after she left AMA because she has no health aid arranged. The patient was recently admitted with rapid afib with very difficult VR control , JOSEPH on CKD and diastolic CHF. She refused recommended cardioversion at that time. She is now considering to cardioversion. She has been feeling fine and relatively asymptomatic in spite of rapid afib. She has persistent leg edema. But she denies palpitation, chest pain, SOB at rest, dizziness, syncope or near syncope. No orthopnea or PND. - History Source History Provided By: Patient, Medical Record Limitations to Obtaining History: No Limitations - Past Medical History [employer]: Yes: Other (Sciatica) Cardio/Vascular: Yes: AFIB, CHF, HTN Pulmonary: Yes: COPD Renal/: Yes: Renal Inusuff (CKD) Musculoskeletal: Yes: Osteoarthritis Endocrine: Yes: Diabetes Mellitus - Alcohol/Substance Use Hx Alcohol Use: No History of Substance Use: reports: None - Smoking History Smoking history: Unknown if ever smoked Have you smoked in the past 12 months: No Aproximately how many cigarettes per day: 4 - Social History Usual Living Arrangement: With Spouse (and two grand children) ADL: Independent History of Recent Travel: No Home Medications - Allergies Allergies/Adverse Reactions: Allergies Allergy/AdvReac Type Severity Reaction Status Date / Time morphine Allergy Severe Verified 01/09/19 06:22 Penicillins Allergy Severe Hives Verified 01/09/19 06:22 tomato [Tomato] Allergy Unknown Verified 01/09/19 06:22 chocolate AdvReac Unknown Uncoded 01/09/19 06:22 - Home Medications Home Medications: Ambulatory Orders Albuterol Sulfate Inhaler - [Ventolin HFA Inhaler -] 1 inh IH QID PRN 05/21/18 Budesonide/Formeterol Fumarate [SYMBICORT 80/4.5mcg -] 2 puff IH BID #1 inhaler 12/28/18 Bupropion HCl [Wellbutrin Xl -] 150 mg PO DAILY tab.sr.24h 12/28/18 Gabapentin [Neurontin -] 300 mg PO TID capsule 01/15/19 Cholecalciferol (Vitamin D3) [Vitamin D -] 50,000 unit PO WEEKLY 01/22/19 Linagliptin [Tradjenta] 5 mg PO DAILY 01/22/19 Oxycodone HCl/Acetaminophen [Endocet 10-325 mg Tablet] 1 each PO TID 01/22/19 hydrOXYzine PAMOATE [Vistaril -] 50 mg PO DAILY 01/22/19 Apixaban [Eliquis -] 5 mg PO BID #30 tablet MDD 2 01/29/19 Furosemide [Lasix -] 40 mg PO BID@0600,1400 #30 tablet MDD 2 01/29/19 Atenolol [Tenormin -] 50 mg PO BID 01/31/19 Family Disease History - Family Disease History Family Disease History: Other: Father (: Fell down stairs), Mother (: 80 : CHF), Brother (2, 1 unclear causes), Sister (4 sis: 1 : VT, 1 unclear cause), Son (3), Daughter (3) Review of Systems - Review of Systems Constitutional: reports: Lethargy, Malaise Eyes: reports: No Symptoms HENT: reports: No Symptoms Neck: reports: No Symptoms Cardiovascular: reports: Edema, Palpitations Respiratory: reports: No Symptoms Gastrointestinal: reports: No Symptoms Genitourinary: reports: No Symptoms Breasts: reports: No Symptoms Reported Musculoskeletal: reports: Joint Swelling Integumentary: reports: No Symptoms Neurological: reports: No Symptoms Endocrine: reports: No Symptoms Hematology/Lymphatic: reports: No Symptoms Psychiatric: reports: No Symptoms Vital Signs: Vital Signs Temperature 98.6 F 02/01/19 15:41 Pulse Rate 127 H 02/01/19 15:41 Respiratory Rate 20 02/01/19 15:41 Blood Pressure 148/86 02/01/19 15:41 O2 Sat by Pulse Oximetry (%) 95 02/01/19 08:47 General: Well developed. Chronic ill. No acute distress. Head: Normocephalic. Atraumatic, Eyes: PERRLA, EOMI. Sclerae anicteric. Conjunctivae clear. Neck: Supple. No JVD. No bruits. Heart: Normal S1, S2: Irregular rhythm and tachycardia. No murmur. No gallop or rub. Lungs: Symmetrical air entry. Clear to auscultation. No crackle. No wheezing or rhonchi. Abdomen: Soft. Bowel sound positive. Non tender. No masses. Extremities: 1+ edema. No clubbing or cyanosis. PD 2+, equal bilaterally. - Other Data Labs, Other Data: CBC, BMP 02/01/19 06:00 02/01/19 06:00 INR, PTT INR 1.30 (0.83-1.09) H 01/31/19 13:49 Troponin, BNP 02/01/19 06:00 Troponin I 0.04 B-Natriuretic Peptide 12532.2 H Troponin, BNP 02/01/19 06:00 Troponin I 0.04 B-Natriuretic Peptide 57592.2 H Imaging - Results EKG: Image Reviewed (ECG 02/01/2019: Atrial fibrillation with rapid VR. LAD. LVH. ) Assessment/Plan 58-year-old woman with a PMHx of HTN, persistent atrial fibrillation on Eliquis , DM, chronic diastolic CHF, COPD, CKD, chronic LE swelling readmitted 2018 one day after she left A because she has no health aid arranged. The patient was recently admitted with rapid afib with very difficult VR control , JOSEPH on CKD and diastolic CHF. She refused recommended cardioversion at that time. She is now considering to cardioversion. 1) Persistent atrial fibrillation with difficult VR control. Start Amiodarone 400 mg TID with meals. Daily ECG to monitor QT interval. Continue metoprolol tartrate 200 mg BID, verapamil 80 mg TID and digoxin 0.125 mg daily. Continue Eliquis 5 mg BID. Continue tele. Will consider ERMELINDA and DCCV if her VR remains rapid in 2-3 days. 2) Chronic diastolic CHF: Stable, no respiratory distress. But she still has leg edema and elevated BNP. Continue IV Lasix 40 mg BID. We will follow the patient with you.
[2019-02-01 17:02] LABS: METHADONE, UR NEGATIVE ng/ml (CUTOFF=300); PHENCYCLIDINE,URINE NEGATIVE ng/ml (CUTOFF=25); URINE AMPHETAMINES NEGATIVE ng/ml (CUTOFF=500); URINE BARBITURATES NEGATIVE ng/ml (CUTOFF=200); URINE BENZODIAZEPINES NEGATIVE ng/ml (CUTOFF=200)
[2019-02-01 17:03] LABS: COCAINE, UR NEGATIVE ng/ml (CUTOFF=300)
[2019-02-01 17:18] LABS: OPIATES, URI POSITIVE ng/ml (CUTOFF=300)
[2019-02-01] MEDS: METOPROLOL TARTRATE 50 MG TABLET (FP) PO SCH (21:22)
[2019-02-02] MEDS: NYSTATIN 500,000 UNITS/5 ML SUSPENSION PO SCH ×5 (01:14→17:40)
[2019-02-02] MEDS: METOPROLOL TARTRATE 5 MG/5 ML VIAL IVPUSH PRN (06:17)
[2019-02-02] MEDS: VERAPAMIL HCL 80 MG TABLET PO SCH ×3 (06:18→21:56)
[2019-02-02] MEDS: GABAPENTIN 300 MG CAPSULE (FP) PO SCH ×3 (06:18→21:56)
[2019-02-02] MEDS: ACETAMINOPHEN 325 MG TABLET (FP) PO PRN (06:18)
[2019-02-02] MEDS: FUROSEMIDE 40 MG TABLET (FP) PO SCH ×2 (06:18→14:21)
[2019-02-02] MEDS: oxyCODONE HCL 5 MG TABLET PO PRN ×3 (06:18→21:56)
[2019-02-02 07:07] LABS: HEMATOCRIT 43.9 % (32.4-45.2); HEMOGLOBIN 13.9 GM/dL (10.7-15.3); MCH 29.2 pg (25.7-33.7); MCHC 31.7 g/dl (32.0-36.0); MEAN CELL VOLUME 92.1 fl (80-96); MEAN PLT VOLUME 11.1 fl (7.5-11.1); PLATELET COUNT 119 K/MM3 (134-434); RBC 4.77 M/mm3 (3.60-5.2); RDW 17.1 % (11.6-15.6); WHITE BLOOD COUNT 12.4 K/mm3 (4.0-10.0)
[2019-02-02] MEDS ORDERED: PT OWN MED DRAWER 7, Y5N ONE ×3 (08:03→21:54)
[2019-02-02] MEDS: METOPROLOL TARTRATE 50 MG TABLET (FP) PO SCH ×3 (08:07→21:56)
[2019-02-02] MEDS: sitaGLIPtin PHOSPHATE 50 MG TABLET PO SCH ×2 (08:08→09:33)
[2019-02-02] MEDS: APIXABAN 5 MG TABLET PO SCH ×3 (08:08→21:56)
[2019-02-02] MEDS: predniSONE 20 MG TABLET (UD) PO SCH ×2 (08:09→09:33)
[2019-02-02] MEDS: hydrOXYzine PAMOATE 50 MG CAPSULE (FP) PO SCH ×2 (08:10→09:33)
[2019-02-02] MEDS: DIGOXIN 0.125 MG TABLET (FP) PO SCH ×2 (08:10→09:33)
[2019-02-02 08:55] LABS: CALCIUM 9.3 mg/dL (8.5-10.1); CREATININE 1.1 mg/dL (0.55-1.3); POTASSIUM 4.2 mmol/L (3.5-5.1)
[2019-02-02 08:56] LABS: ALBUMIN 3.5 g/dl (3.4-5.0); BILIRUBIN,TOTAL 1.2 mg/dL (0.2-1); TOT PROT 6.6 g/dl (6.4-8.2)
[2019-02-02] MEDS: BUDESONIDE/FORMETEROL FUMARATE 80/4.5 mcg INHALER IH SCH ×2 (09:30→22:00)
--- NOTE | 2019-02-02 09:55 | PN ---
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, Physician - Current Medication List Current Medications: Active Medications Acetaminophen (Tylenol -) 325 mg PO Q8H PRN PRN Reason: PAIN LEVEL 6-10 Last Admin: 02/02/19 06:18 Dose: 325 mg Albuterol Sulfate (Ventolin 0.083% Nebulizer Soln -) 1 amp NEB Q6H PRN PRN Reason: SHORT OF BREATH/WHEEZING Apixaban (Eliquis -) 5 mg PO BID [facility] Last Admin: 02/02/19 09:33 Dose: Not Given Budesonide/Formoterol Fumarate (Symbicort 80/4.5mcg -) 2 puff IH BID [facility] Last Admin: 02/01/19 21:27 Dose: 2 puff Bupropion HCl (Wellbutrin Xl -) 150 mg PO DAILY [facility] Last Admin: 02/02/19 09:34 Dose: Not Given Digoxin (Lanoxin -) 0.125 mg PO DAILY [facility] Last Admin: 02/02/19 09:33 Dose: Not Given Ergocalciferol (Drisdol -) 50,000 unit PO Foster@1000 [facility] Furosemide (Lasix -) 40 mg PO BIDLASIX [facility] Last Admin: 02/02/19 06:18 Dose: 40 mg Gabapentin (Neurontin -) 300 mg PO TID [facility] Last Admin: 02/02/19 06:18 Dose: 300 mg Hydroxyzine Pamoate (Vistaril -) 50 mg PO DAILY [facility] Last Admin: 02/02/19 09:33 Dose: Not Given Metoprolol Tartrate (Lopressor Injection -) 5 mg IVPUSH Q4H PRN PRN Reason: HYPERTENSION Last Admin: 02/02/19 06:17 Dose: 5 mg Metoprolol Tartrate (Lopressor -) 200 mg PO BID [facility] Last Admin: 02/02/19 09:33 Dose: Not Given Nystatin (Nystatin Oral Suspension -) 500,000 units PO Q6HPO [facility] Last Admin: 02/02/19 06:17 Dose: 500,000 units Oxycodone HCl (Roxicodone -) 10 mg PO Q8H PRN PRN Reason: PAIN LEVEL 6-10 Last Admin: 02/02/19 06:18 Dose: 10 mg Prednisone (Deltasone -) 40 mg PO DAILY [facility] Last Admin: 02/02/19 09:33 Dose: Not Given Sitagliptin Phosphate (Januvia -) 50 mg PO DAILY [facility] Last Admin: 02/02/19 09:33 Dose: Not Given Verapamil HCl (Calan -) 80 mg PO TID [facility] Last Admin: 02/02/19 06:18 Dose: 80 mg - Objective Vital Signs: Vital Signs Temperature 97.9 F 02/02/19 06:15 Pulse Rate 108 H 02/02/19 08:10 Respiratory Rate 20 02/02/19 06:15 Blood Pressure 167/116 H 02/02/19 06:17 O2 Sat by Pulse Oximetry (%) 92 L 02/01/19 21:00 Cardiovascular: Yes: Tachycardia, Pulse Irregular, S1, S2 Respiratory: Yes: Regular, CTA Bilaterally Gastrointestinal: Yes: Normal Bowel Sounds, Soft Edema: Yes Labs: CBC, BMP 02/02/19 05:30 02/02/19 05:30 INR, PTT INR 1.30 (0.83-1.09) H 01/31/19 13:49 Assessment/Plan - Problems (1) Atrial fibrillation with rapid ventricular response Assessment/Plan: -tele monitoring -patient agrees to cardioversion -cardiology consult -Verapimil -Metoprolol, Digoxin -Eliquis -Lopressor 5mg IVP PRN for HR >110bpm Code(s): I48.91 - UNSPECIFIED ATRIAL FIBRILLATION (2) Leg edema Assessment/Plan: -Furosemide -1L fluid restriction -daily weights -cardiology consult Code(s): R60.0 - LOCALIZED EDEMA (3) COPD (chronic obstructive pulmonary disease) Assessment/Plan: -Pulm consult -bronchodilators -prednisone -O2 via NC -keep SpO2 >90% -Symbicort Code(s): J44.9 - CHRONIC OBSTRUCTIVE PULMONARY DISEASE, UNSPECIFIED Qualifiers: COPD type: COPD with acute exacerbation Qualified Code(s): J44.1 - Chronic obstructive pulmonary disease with (acute) exacerbation (4) JOSEPH (acute kidney injury) Assessment/Plan: -BUN/Cr 38/1.5 -renal on board -monitor renal function daily Code(s): N17.9 - ACUTE KIDNEY FAILURE, UNSPECIFIED (5) Acute and chronic respiratory failure Assessment/Plan: -Pulm consult -bronchodilators -prednisone -O2 via NC -keep SpO2 >90% -Symbicort Code(s): J96.20 - ACUTE AND CHR RESP FAILURE, UNSP W HYPOXIA OR HYPERCAPNIA (6) Hypertension Assessment/Plan: -Hydralazine -low Na diet Code(s): I10 - ESSENTIAL (PRIMARY) HYPERTENSION (7) Thrush Assessment/Plan: -nystatin Code(s): B37.0 - CANDIDAL STOMATITIS
--- NOTE | 2019-02-02 10:02 | PN ---
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, Physician History of Present Illness: Pt seen and examined at bedside. She is awake and alert. She denies shortness of breath. - Current Medication List Current Medications: Active Medications Acetaminophen (Tylenol -) 325 mg PO Q8H PRN PRN Reason: PAIN LEVEL 6-10 Last Admin: 02/02/19 06:18 Dose: 325 mg Albuterol Sulfate (Ventolin 0.083% Nebulizer Soln -) 1 amp NEB Q6H PRN PRN Reason: SHORT OF BREATH/WHEEZING Apixaban (Eliquis -) 5 mg PO BID [facility] Last Admin: 02/02/19 09:33 Dose: Not Given Budesonide/Formoterol Fumarate (Symbicort 80/4.5mcg -) 2 puff IH BID [facility] Last Admin: 02/01/19 21:27 Dose: 2 puff Bupropion HCl (Wellbutrin Xl -) 150 mg PO DAILY [facility] Last Admin: 02/02/19 09:34 Dose: Not Given Digoxin (Lanoxin -) 0.125 mg PO DAILY [facility] Last Admin: 02/02/19 09:33 Dose: Not Given Ergocalciferol (Drisdol -) 50,000 unit PO Foster@1000 [facility] Furosemide (Lasix -) 40 mg PO BIDLASIX [facility] Last Admin: 02/02/19 06:18 Dose: 40 mg Gabapentin (Neurontin -) 300 mg PO TID [facility] Last Admin: 02/02/19 06:18 Dose: 300 mg Hydroxyzine Pamoate (Vistaril -) 50 mg PO DAILY [facility] Last Admin: 02/02/19 09:33 Dose: Not Given Metoprolol Tartrate (Lopressor Injection -) 5 mg IVPUSH Q4H PRN PRN Reason: HYPERTENSION Last Admin: 02/02/19 06:17 Dose: 5 mg Metoprolol Tartrate (Lopressor -) 200 mg PO BID [facility] Last Admin: 02/02/19 09:33 Dose: Not Given Nystatin (Nystatin Oral Suspension -) 500,000 units PO Q6HPO [facility] Last Admin: 02/02/19 06:17 Dose: 500,000 units Oxycodone HCl (Roxicodone -) 10 mg PO Q8H PRN PRN Reason: PAIN LEVEL 6-10 Last Admin: 02/02/19 06:18 Dose: 10 mg Prednisone (Deltasone -) 40 mg PO DAILY [facility] Last Admin: 02/02/19 09:33 Dose: Not Given Sitagliptin Phosphate (Januvia -) 50 mg PO DAILY [facility] Last Admin: 02/02/19 09:33 Dose: Not Given Verapamil HCl (Calan -) 80 mg PO TID [facility] Last Admin: 02/02/19 06:18 Dose: 80 mg - Objective Vital Signs: Vital Signs Temperature 97.9 F 02/02/19 06:15 Pulse Rate 108 H 02/02/19 08:10 Respiratory Rate 20 02/02/19 06:15 Blood Pressure 167/116 H 02/02/19 06:17 O2 Sat by Pulse Oximetry (%) 92 L 02/01/19 21:00 Constitutional: Yes: Calm Eyes: Yes: Conjunctiva Clear HENT: Yes: Atraumatic Neck: Yes: Supple Cardiovascular: Yes: Tachycardia, S1, S2 Respiratory: Yes: CTA Bilaterally Gastrointestinal: Yes: Soft Genitourinary: Yes: WNL Edema: Yes Edema: LLE: 2+, RLE: 2+ Neurological: Yes: Oriented Psychiatric: Yes: Oriented Labs: CBC, BMP 02/02/19 05:30 02/02/19 05:30 INR, PTT INR 1.30 (0.83-1.09) H 01/31/19 13:49 Assessment/Plan Current Medications Generic Name Dose Route Start Last Admin Trade Name Freq PRN Reason Stop Dose Admin Acetaminophen 325 mg 01/31/19 22:39 02/02/19 06:18 Tylenol - PO 325 mg Q8H PRN Administration PAIN LEVEL 6-10 Albuterol Sulfate 1 amp 01/31/19 18:48 Ventolin 0.083% Nebulizer Soln - NEB Q6H PRN SHORT OF BREATH/WHEEZING Apixaban 5 mg 01/31/19 22:00 02/02/19 09:33 Eliquis - PO Not Given BID [facility] Budesonide/Formoterol Fumarate 2 puff 01/31/19 22:00 02/01/19 21:27 Symbicort 80/4.5mcg - IH 2 puff BID JOLENE Administration Bupropion HCl 150 mg 02/01/19 10:00 02/02/19 09:34 Wellbutrin Xl - PO Not Given DAILY [facility] Digoxin 0.125 mg 02/01/19 11:00 02/02/19 09:33 Lanoxin - PO Not Given DAILY [facility] Ergocalciferol 50,000 unit 02/07/19 10:00 Drisdol - PO Foster@1000 [facility] Furosemide 40 mg 02/01/19 06:00 02/02/19 06:18 Lasix - PO 40 mg BIDLASIX JOLENE Administration Gabapentin 300 mg 01/31/19 22:00 02/02/19 06:18 Neurontin - PO 300 mg TID JOLENE Administration Hydroxyzine Pamoate 50 mg 02/01/19 10:00 02/02/19 09:33 Vistaril - PO Not Given DAILY [facility] Metoprolol Tartrate 5 mg 01/31/19 18:53 02/02/19 06:17 Lopressor Injection - IVPUSH 5 mg Q4H PRN Administration HYPERTENSION Metoprolol Tartrate 200 mg 02/01/19 22:00 02/02/19 09:33 Lopressor - PO Not Given BID [facility] Nystatin 500,000 units 02/01/19 12:00 02/02/19 06:17 Nystatin Oral Suspension - PO 500,000 units Q6HPO JOLENE Administration Oxycodone HCl 10 mg 01/31/19 22:39 02/02/19 06:18 Roxicodone - PO 10 mg Q8H PRN Administration PAIN LEVEL 6-10 Prednisone 40 mg 02/01/19 10:00 02/02/19 09:33 Deltasone - PO Not Given DAILY [facility] Sitagliptin Phosphate 50 mg 02/01/19 10:00 02/02/19 09:33 Januvia - PO Not Given DAILY [facility] Verapamil HCl 80 mg 01/31/19 22:00 02/02/19 06:18 Calan - PO 80 mg TID JOLENE Administration Impression 1. CKD 2. CHF 3. a-fib 4. lower ext edema 5. COPD 6. active smoker Plan - cont lasix - renal function is improving - cardio follow up - avoid nephrotoxins - ua neg for blood or protein
--- NOTE | 2019-02-02 10:50 | PN ---
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, Physician History of Present Illness: pulmonary alert,no distress,-sob. pt remains in rapid afib - Current Medication List Current Medications: Active Medications Acetaminophen (Tylenol -) 325 mg PO Q8H PRN PRN Reason: PAIN LEVEL 6-10 Last Admin: 02/02/19 06:18 Dose: 325 mg Albuterol Sulfate (Ventolin 0.083% Nebulizer Soln -) 1 amp NEB Q6H PRN PRN Reason: SHORT OF BREATH/WHEEZING Apixaban (Eliquis -) 5 mg PO BID [facility] Last Admin: 02/02/19 09:33 Dose: Not Given Budesonide/Formoterol Fumarate (Symbicort 80/4.5mcg -) 2 puff IH BID [facility] Last Admin: 02/01/19 21:27 Dose: 2 puff Bupropion HCl (Wellbutrin Xl -) 150 mg PO DAILY [facility] Last Admin: 02/02/19 09:34 Dose: Not Given Digoxin (Lanoxin -) 0.125 mg PO DAILY [facility] Last Admin: 02/02/19 09:33 Dose: Not Given Ergocalciferol (Drisdol -) 50,000 unit PO Foster@1000 [facility] Furosemide (Lasix -) 40 mg PO BIDLASIX [facility] Last Admin: 02/02/19 06:18 Dose: 40 mg Gabapentin (Neurontin -) 300 mg PO TID [facility] Last Admin: 02/02/19 06:18 Dose: 300 mg Hydroxyzine Pamoate (Vistaril -) 50 mg PO DAILY [facility] Last Admin: 02/02/19 09:33 Dose: Not Given Metoprolol Tartrate (Lopressor Injection -) 5 mg IVPUSH Q4H PRN PRN Reason: HYPERTENSION Last Admin: 02/02/19 06:17 Dose: 5 mg Metoprolol Tartrate (Lopressor -) 200 mg PO BID [facility] Last Admin: 02/02/19 09:33 Dose: Not Given Nystatin (Nystatin Oral Suspension -) 500,000 units PO Q6HPO [facility] Last Admin: 02/02/19 06:17 Dose: 500,000 units Oxycodone HCl (Roxicodone -) 10 mg PO Q8H PRN PRN Reason: PAIN LEVEL 6-10 Last Admin: 02/02/19 06:18 Dose: 10 mg Prednisone (Deltasone -) 40 mg PO DAILY [facility] Last Admin: 02/02/19 09:33 Dose: Not Given Sitagliptin Phosphate (Januvia -) 50 mg PO DAILY [facility] Last Admin: 02/02/19 09:33 Dose: Not Given Verapamil HCl (Calan -) 80 mg PO TID [facility] Last Admin: 02/02/19 06:18 Dose: 80 mg - Objective Vital Signs: Vital Signs Temperature 97.9 F 02/02/19 06:15 Pulse Rate 108 H 02/02/19 08:10 Respiratory Rate 20 02/02/19 06:15 Blood Pressure 167/116 H 02/02/19 06:17 O2 Sat by Pulse Oximetry (%) 92 L 02/01/19 21:00 Constitutional: Yes: Well Nourished, Calm Eyes: Yes: WNL HENT: Yes: WNL Neck: Yes: WNL Cardiovascular: Yes: Tachycardia, Pulse Irregular, S1, S2 Respiratory: Yes: Diminished Gastrointestinal: Yes: Normal Bowel Sounds, Soft Extremities: Yes: WNL Edema: Yes Labs: CBC, BMP 02/02/19 05:30 02/02/19 05:30 INR, PTT INR 1.30 (0.83-1.09) H 01/31/19 13:49 Problem List - Problems (1) Chronic respiratory failure with hypoxia and hypercapnia Code(s): J96.11 - CHRONIC RESPIRATORY FAILURE WITH HYPOXIA; J96.12 - CHRONIC RESPIRATORY FAILURE WITH HYPERCAPNIA (2) Atrial fibrillation with rapid ventricular response Code(s): I48.91 - UNSPECIFIED ATRIAL FIBRILLATION (3) Leg edema Code(s): R60.0 - LOCALIZED EDEMA (4) COPD (chronic obstructive pulmonary disease) Code(s): J44.9 - CHRONIC OBSTRUCTIVE PULMONARY DISEASE, UNSPECIFIED Qualifiers: COPD type: COPD with acute exacerbation Qualified Code(s): J44.1 - Chronic obstructive pulmonary disease with (acute) exacerbation (5) Cigarette nicotine dependence Code(s): F17.200 - NICOTINE DEPENDENCE, UNSPECIFIED, UNCOMPLICATED (6) Diabetes Code(s): E11.9 - TYPE 2 DIABETES MELLITUS WITHOUT COMPLICATIONS Qualifiers: Diabetes mellitus type: type 2 Assessment/Plan IMP AFIB WITH RVR COPD O2 DEPENDENT WITH CHRONIC HYPOXEMIC/HYPERCAPNEIC RESPIRATORY FAILURE DIASTOLIC HF CKD TOBACCO ABUSE LOWER EXTREMITY EDEMA DM PLAN INHALED BRONCHODILATORS XOPENEX O2 RATE CONTROL PER CARDIOLOGY AMIODARONE LASIX CARDIOVERSION PER CARDIOLOGY SMOKING CESSATION COUNSELED MONITOR LYTES,RENAL FUNCTION DR ROLLE Problem List - Problems (1) Chronic respiratory failure with hypoxia and hypercapnia Code(s): J96.11 - CHRONIC RESPIRATORY FAILURE WITH HYPOXIA; J96.12 - CHRONIC RESPIRATORY FAILURE WITH HYPERCAPNIA (2) Atrial fibrillation with rapid ventricular response Code(s): I48.91 - UNSPECIFIED ATRIAL FIBRILLATION (3) Leg edema Code(s): R60.0 - LOCALIZED EDEMA (4) COPD (chronic obstructive pulmonary disease) Code(s): J44.9 - CHRONIC OBSTRUCTIVE PULMONARY DISEASE, UNSPECIFIED Qualifiers: COPD type: COPD with acute exacerbation Qualified Code(s): J44.1 - Chronic obstructive pulmonary disease with (acute) exacerbation (5) Cigarette nicotine dependence Code(s): F17.200 - NICOTINE DEPENDENCE, UNSPECIFIED, UNCOMPLICATED (6) Diabetes Code(s): E11.9 - TYPE 2 DIABETES MELLITUS WITHOUT COMPLICATIONS Qualifiers: Diabetes mellitus type: type 2
[2019-02-02] MEDS: AMIODARONE HCL 200 MG TABLET (FP) PO SCH ×3 (11:23→21:55)
--- NOTE | 2019-02-02 12:21 | PN ---
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, Physician History of Present Illness: seen and examined today in nad. no new complaints. - Current Medication List Current Medications: Active Medications Acetaminophen (Tylenol -) 325 mg PO Q8H PRN PRN Reason: PAIN LEVEL 6-10 Last Admin: 02/02/19 06:18 Dose: 325 mg Amiodarone HCl (Cordarone -) 400 mg PO TID [facility] Last Admin: 02/02/19 11:23 Dose: 400 mg Apixaban (Eliquis -) 5 mg PO BID [facility] Last Admin: 02/02/19 09:33 Dose: Not Given Budesonide/Formoterol Fumarate (Symbicort 80/4.5mcg -) 2 puff IH BID [facility] Last Admin: 02/02/19 09:30 Dose: 2 puff Bupropion HCl (Wellbutrin Xl -) 150 mg PO DAILY [facility] Last Admin: 02/02/19 09:34 Dose: Not Given Ergocalciferol (Drisdol -) 50,000 unit PO Foster@1000 [facility] Furosemide (Lasix -) 40 mg PO BIDLASIX [facility] Last Admin: 02/02/19 06:18 Dose: 40 mg Gabapentin (Neurontin -) 300 mg PO TID [facility] Last Admin: 02/02/19 06:18 Dose: 300 mg Hydroxyzine Pamoate (Vistaril -) 50 mg PO DAILY [facility] Last Admin: 02/02/19 09:33 Dose: Not Given Levalbuterol HCl (Xopenex) 0.31 mg IH Q8H PRN PRN Reason: ASTHMA Metoprolol Tartrate (Lopressor Injection -) 5 mg IVPUSH Q4H PRN PRN Reason: HYPERTENSION Last Admin: 02/02/19 06:17 Dose: 5 mg Metoprolol Tartrate (Lopressor -) 200 mg PO BID [facility] Last Admin: 02/02/19 09:33 Dose: Not Given Nystatin (Nystatin Oral Suspension -) 500,000 units PO Q6HPO [facility] Last Admin: 02/02/19 11:23 Dose: 500,000 units Oxycodone HCl (Roxicodone -) 10 mg PO Q8H PRN PRN Reason: PAIN LEVEL 6-10 Last Admin: 02/02/19 06:18 Dose: 10 mg Prednisone (Deltasone -) 40 mg PO DAILY [facility] Last Admin: 02/02/19 09:33 Dose: Not Given Sitagliptin Phosphate (Januvia -) 50 mg PO DAILY [facility] Last Admin: 02/02/19 09:33 Dose: Not Given Verapamil HCl (Calan -) 80 mg PO TID [facility] Last Admin: 02/02/19 06:18 Dose: 80 mg - Objective Vital Signs: Vital Signs Temperature 97.9 F 02/02/19 06:15 Pulse Rate 108 H 02/02/19 08:10 Respiratory Rate 20 02/02/19 06:15 Blood Pressure 167/116 H 02/02/19 06:17 O2 Sat by Pulse Oximetry (%) 92 L 02/01/19 21:00 Constitutional: Yes: No Distress, Calm Eyes: Yes: Conjunctiva Clear, EOM Intact HENT: Yes: Atraumatic, Normocephalic Neck: Yes: Supple, Trachea Midline Cardiovascular: Yes: Tachycardia, Pulse Irregular, S1, S2. No: Regular Rate and Rhythm, Bradycardia, Bruit, JVD, Gallop, Murmur, Rub, S3, S4, Varicosities Respiratory: Yes: Regular, Diminished. No: Rales, Rhonchi, SOB, Wheezes Gastrointestinal: Yes: Normal Bowel Sounds, Soft. No: Distention, Tenderness Edema: Yes Edema: LLE: Trace, RLE: Trace Peripheral Pulses WNL: Yes Neurological: Yes: Alert, Oriented Psychiatric: Yes: Alert, Oriented Labs: CBC, BMP 02/02/19 05:30 02/02/19 05:30 INR, PTT INR 1.30 (0.83-1.09) H 01/31/19 13:49 - ....Imaging Chest X-ray: Report Reviewed, Image Reviewed EKG: Report Reviewed, Image Reviewed Other: Report Reviewed, Image Reviewed (tele-Afib with RVR) Assessment/Plan 58-year-old woman with a PMHx of HTN, persistent atrial fibrillation on Eliquis , DM, chronic diastolic CHF, COPD, CKD, chronic LE swelling readmitted 2018 one day after she left AMA because she has no health aid arranged. The patient was recently admitted with rapid afib with very difficult VR control , JOSEPH on CKD and diastolic CHF. She refused recommended cardioversion at that time. She is now considering to cardioversion. 1) Persistent atrial fibrillation with difficult VR control. -as per discussion yesterday and again today plan to start Amiodarone 400 mg TID with meals with goal of achieving rate control -discussed with pt that there is a low but possible risk of thromboembolic event if she has a intracardiac thrombus present and if she converts to nsr on amiodarone, however as she has been on AC with eliquis for a few weeks now this risk should be minimal -hold Digoxin for now -Continue metoprolol tartrate 200 mg BID, verapamil 80 mg TID -additionally she has poor dentition with multiple teeth missing and pt reports current loose teeth. -for ERMELINDA/DCCV to be considered she will need a dental evaluation as there is risk of further tooth dislodgement and aspiration -if possible please have Dental evaluate while inpatient -Will further consider ERMELINDA and DCCV if her VR remains rapid in 2-3 days. -Daily ECG to monitor QT interval. -Continue Eliquis 5 mg BID. -Continue tele. 2) Chronic diastolic CHF: Stable, no respiratory distress. But she still has leg edema and elevated BNP. -Continue IV Lasix 40 mg BID.
[2019-02-03] MEDS: NYSTATIN 500,000 UNITS/5 ML SUSPENSION PO SCH ×4 (00:15→20:55)
[2019-02-03] MEDS: METOPROLOL TARTRATE 5 MG/5 ML VIAL IVPUSH PRN ×2 (01:15→06:00)
[2019-02-03] MEDS ORDERED: PT OWN MED DRAWER 7, Y5N ONE ×6 (05:36→16:17)
[2019-02-03] MEDS: GABAPENTIN 300 MG CAPSULE (FP) PO SCH ×3 (06:16→22:19)
[2019-02-03] MEDS: AMIODARONE HCL 200 MG TABLET (FP) PO SCH ×3 (06:16→22:17)
[2019-02-03] MEDS: VERAPAMIL HCL 80 MG TABLET PO SCH ×3 (06:16→22:17)
[2019-02-03] MEDS: oxyCODONE HCL 5 MG TABLET PO PRN ×2 (06:16→14:14)
[2019-02-03] MEDS: FUROSEMIDE 40 MG TABLET (FP) PO SCH ×2 (06:16→13:11)
[2019-02-03] MEDS: LEVALBUTEROL HCL 0.31 MG/3 ML VIAL.NEB IH PRN ×2 (08:00→12:34)
[2019-02-03] MEDS: sitaGLIPtin PHOSPHATE 50 MG TABLET PO SCH (10:04)
[2019-02-03] MEDS: predniSONE 20 MG TABLET (UD) PO SCH (10:04)
[2019-02-03] MEDS: METOPROLOL TARTRATE 50 MG TABLET (FP) PO SCH ×2 (10:04→22:18)
[2019-02-03] MEDS: hydrOXYzine PAMOATE 50 MG CAPSULE (FP) PO SCH (10:04)
[2019-02-03] MEDS: APIXABAN 5 MG TABLET PO SCH ×2 (10:04→22:18)
[2019-02-03] MEDS: BUDESONIDE/FORMETEROL FUMARATE 80/4.5 mcg INHALER IH SCH ×2 (10:06→22:23)
--- NOTE | 2019-02-03 10:59 | PN ---
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, Physician History of Present Illness: sitting up eating breakfast - Current Medication List Current Medications: Active Medications Acetaminophen (Tylenol -) 325 mg PO Q8H PRN PRN Reason: PAIN LEVEL 6-10 Last Admin: 02/02/19 06:18 Dose: 325 mg Amiodarone HCl (Cordarone -) 400 mg PO TID [facility] Last Admin: 02/03/19 06:16 Dose: 400 mg Apixaban (Eliquis -) 5 mg PO BID [facility] Last Admin: 02/03/19 10:04 Dose: 5 mg Budesonide/Formoterol Fumarate (Symbicort 80/4.5mcg -) 2 puff IH BID [facility] Last Admin: 02/03/19 10:06 Dose: 2 puff Bupropion HCl (Wellbutrin Xl -) 150 mg PO DAILY [facility] Last Admin: 02/03/19 10:04 Dose: 150 mg Ergocalciferol (Drisdol -) 50,000 unit PO Foster@1000 [facility] Furosemide (Lasix -) 40 mg PO BIDLASIX [facility] Last Admin: 02/03/19 06:16 Dose: 40 mg Gabapentin (Neurontin -) 300 mg PO TID [facility] Last Admin: 02/03/19 06:16 Dose: 300 mg Hydroxyzine Pamoate (Vistaril -) 50 mg PO DAILY [facility] Last Admin: 02/03/19 10:04 Dose: 50 mg Levalbuterol HCl (Xopenex) 0.31 mg IH Q8H PRN PRN Reason: ASTHMA Last Admin: 02/03/19 08:00 Dose: 0.31 mg Metoprolol Tartrate (Lopressor Injection -) 5 mg IVPUSH Q4H PRN PRN Reason: HYPERTENSION Last Admin: 02/03/19 06:00 Dose: 5 mg Metoprolol Tartrate (Lopressor -) 200 mg PO BID [facility] Last Admin: 02/03/19 10:04 Dose: 200 mg Nystatin (Nystatin Oral Suspension -) 500,000 units PO Q6HPO [facility] Last Admin: 02/03/19 06:16 Dose: 500,000 units Oxycodone HCl (Roxicodone -) 10 mg PO Q8H PRN PRN Reason: PAIN LEVEL 6-10 Last Admin: 02/03/19 06:16 Dose: 10 mg Prednisone (Deltasone -) 40 mg PO DAILY [facility] Last Admin: 02/03/19 10:04 Dose: 40 mg Sitagliptin Phosphate (Januvia -) 50 mg PO DAILY [facility] Last Admin: 02/03/19 10:04 Dose: 50 mg Verapamil HCl (Calan -) 80 mg PO TID [facility] Last Admin: 02/03/19 06:16 Dose: 80 mg - Objective Vital Signs: Vital Signs Temperature 98.2 F 02/03/19 06:00 Pulse Rate 112 H 02/03/19 06:00 Respiratory Rate 18 02/03/19 06:00 Blood Pressure 178/106 H 02/03/19 06:00 O2 Sat by Pulse Oximetry (%) 90 L 02/02/19 21:00 Cardiovascular: Yes: Pulse Irregular, S1, S2 Respiratory: Yes: On Nasal O2, Rhonchi Gastrointestinal: Yes: Normal Bowel Sounds, Soft Edema: Yes Labs: CBC, BMP 02/02/19 05:30 02/02/19 05:30 INR, PTT INR 1.30 (0.83-1.09) H 01/31/19 13:49 Assessment/Plan - Problems (1) Atrial fibrillation with rapid ventricular response Assessment/Plan: -tele monitoring -patient agrees to cardioversion--Dental consult for eval prior to proceeding -cardiology consult -Verapimil -Metoprolol, Digoxin -Eliquis -Lopressor 5mg IVP PRN for HR >110bpm Code(s): I48.91 - UNSPECIFIED ATRIAL FIBRILLATION (2) Leg edema Assessment/Plan: -Furosemide -1L fluid restriction -daily weights -cardiology consult Code(s): R60.0 - LOCALIZED EDEMA (3) COPD (chronic obstructive pulmonary disease) Assessment/Plan: -Pulm consult -bronchodilators -prednisone -O2 via NC -keep SpO2 >90% -Symbicort -CT scan noted--id consult Code(s): J44.9 - CHRONIC OBSTRUCTIVE PULMONARY DISEASE, UNSPECIFIED Qualifiers: COPD type: COPD with acute exacerbation Qualified Code(s): J44.1 - Chronic obstructive pulmonary disease with (acute) exacerbation (4) JOSEPH (acute kidney injury) Assessment/Plan: -BUN/Cr 38/1.5 -renal on board -monitor renal function daily Code(s): N17.9 - ACUTE KIDNEY FAILURE, UNSPECIFIED (5) Acute and chronic respiratory failure Assessment/Plan: -Pulm consult noted--ct results noted--id consult -bronchodilators -prednisone -O2 via NC -keep SpO2 >90% -Symbicort Code(s): J96.20 - ACUTE AND CHR RESP FAILURE, UNSP W HYPOXIA OR HYPERCAPNIA (6) Hypertension Assessment/Plan: -Hydralazine -low Na diet Code(s): I10 - ESSENTIAL (PRIMARY) HYPERTENSION (7) Thrush Assessment/Plan: -nystatin Code(s): B37.0 - CANDIDAL STOMATITIS (8) Substance abuse Assessment/Plan: -results noted
--- NOTE | 2019-02-03 11:53 | PN ---
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, Physician History of Present Illness: pulmonary alert c/o sob,-cp ,O2 sat high 80s on ra,dry cough - Current Medication List Current Medications: Active Medications Acetaminophen (Tylenol -) 325 mg PO Q8H PRN PRN Reason: PAIN LEVEL 6-10 Last Admin: 02/02/19 06:18 Dose: 325 mg Amiodarone HCl (Cordarone -) 400 mg PO TID [facility] Last Admin: 02/03/19 06:16 Dose: 400 mg Apixaban (Eliquis -) 5 mg PO BID [facility] Last Admin: 02/03/19 10:04 Dose: 5 mg Budesonide/Formoterol Fumarate (Symbicort 80/4.5mcg -) 2 puff IH BID [facility] Last Admin: 02/03/19 10:06 Dose: 2 puff Bupropion HCl (Wellbutrin Xl -) 150 mg PO DAILY [facility] Last Admin: 02/03/19 10:04 Dose: 150 mg Ergocalciferol (Drisdol -) 50,000 unit PO Foster@1000 [facility] Furosemide (Lasix -) 40 mg PO BIDLASIX [facility] Last Admin: 02/03/19 06:16 Dose: 40 mg Gabapentin (Neurontin -) 300 mg PO TID [facility] Last Admin: 02/03/19 06:16 Dose: 300 mg Hydroxyzine Pamoate (Vistaril -) 50 mg PO DAILY [facility] Last Admin: 02/03/19 10:04 Dose: 50 mg Levalbuterol HCl (Xopenex) 0.31 mg IH Q8H PRN PRN Reason: ASTHMA Last Admin: 02/03/19 08:00 Dose: 0.31 mg Metoprolol Tartrate (Lopressor Injection -) 5 mg IVPUSH Q4H PRN PRN Reason: HYPERTENSION Last Admin: 02/03/19 06:00 Dose: 5 mg Metoprolol Tartrate (Lopressor -) 200 mg PO BID [facility] Last Admin: 02/03/19 10:04 Dose: 200 mg Nystatin (Nystatin Oral Suspension -) 500,000 units PO Q6HPO [facility] Last Admin: 02/03/19 11:21 Dose: 500,000 units Oxycodone HCl (Roxicodone -) 10 mg PO Q8H PRN PRN Reason: PAIN LEVEL 6-10 Last Admin: 02/03/19 06:16 Dose: 10 mg Prednisone (Deltasone -) 40 mg PO DAILY [facility] Last Admin: 02/03/19 10:04 Dose: 40 mg Sitagliptin Phosphate (Januvia -) 50 mg PO DAILY [facility] Last Admin: 02/03/19 10:04 Dose: 50 mg Verapamil HCl (Calan -) 80 mg PO TID [facility] Last Admin: 02/03/19 06:16 Dose: 80 mg - Objective Vital Signs: Vital Signs Temperature 98.6 F 02/03/19 10:00 Pulse Rate 89 02/03/19 10:00 Respiratory Rate 18 02/03/19 10:00 Blood Pressure 182/105 H 02/03/19 10:00 O2 Sat by Pulse Oximetry (%) 89 L 02/03/19 10:00 Constitutional: Yes: Well Nourished, Other (dyspneic) Eyes: Yes: WNL HENT: Yes: WNL Neck: Yes: WNL Cardiovascular: Yes: Tachycardia, Pulse Irregular, S1, S2 Respiratory: Yes: Rales ( crackles bilaterally) Gastrointestinal: Yes: Normal Bowel Sounds, Soft Extremities: Yes: WNL Edema: Yes Labs: CBC, BMP - ....Imaging Cat Scan: Report Reviewed, Image Reviewed (patchy bilateral infiltrates) Problem List - Problems (1) Chronic respiratory failure with hypoxia and hypercapnia Code(s): J96.11 - CHRONIC RESPIRATORY FAILURE WITH HYPOXIA; J96.12 - CHRONIC RESPIRATORY FAILURE WITH HYPERCAPNIA (2) Atrial fibrillation with rapid ventricular response Code(s): I48.91 - UNSPECIFIED ATRIAL FIBRILLATION (3) Leg edema Code(s): R60.0 - LOCALIZED EDEMA (4) COPD (chronic obstructive pulmonary disease) Code(s): J44.9 - CHRONIC OBSTRUCTIVE PULMONARY DISEASE, UNSPECIFIED Qualifiers: COPD type: COPD with acute exacerbation Qualified Code(s): J44.1 - Chronic obstructive pulmonary disease with (acute) exacerbation (5) Cigarette nicotine dependence Code(s): F17.200 - NICOTINE DEPENDENCE, UNSPECIFIED, UNCOMPLICATED (6) Diabetes Code(s): E11.9 - TYPE 2 DIABETES MELLITUS WITHOUT COMPLICATIONS Qualifiers: Diabetes mellitus type: type 2 Assessment/Plan IMP AFIB WITH RVR COPD O2 DEPENDENT WITH CHRONIC HYPOXEMIC/HYPERCAPNEIC RESPIRATORY FAILURE DIASTOLIC HF CKD TOBACCO ABUSE LOWER EXTREMITY EDEMA DM BILATERAL INFILTRATES PLAN INHALED BRONCHODILATORS XOPENEX O2 RATE CONTROL PER CARDIOLOGY AMIODARONE LASIX CARDIOVERSION PER CARDIOLOGY SMOKING CESSATION COUNSELED MONITOR LYTES,RENAL FUNCTION ABX PER ID ABG TRANSFER TO ICU DR ROLLE Problem List - Problems (1) Chronic respiratory failure with hypoxia and hypercapnia Code(s): J96.11 - CHRONIC RESPIRATORY FAILURE WITH HYPOXIA; J96.12 - CHRONIC RESPIRATORY FAILURE WITH HYPERCAPNIA (2) Atrial fibrillation with rapid ventricular response Code(s): I48.91 - UNSPECIFIED ATRIAL FIBRILLATION (3) Leg edema Code(s): R60.0 - LOCALIZED EDEMA (4) COPD (chronic obstructive pulmonary disease) Code(s): J44.9 - CHRONIC OBSTRUCTIVE PULMONARY DISEASE, UNSPECIFIED Qualifiers: COPD type: COPD with acute exacerbation Qualified Code(s): J44.1 - Chronic obstructive pulmonary disease with (acute) exacerbation (5) Cigarette nicotine dependence Code(s): F17.200 - NICOTINE DEPENDENCE, UNSPECIFIED, UNCOMPLICATED (6) Diabetes Code(s): E11.9 - TYPE 2 DIABETES MELLITUS WITHOUT COMPLICATIONS Qualifiers: Diabetes mellitus type: type 2
--- NOTE | 2019-02-03 12:11 | PN ---
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, Physician History of Present Illness: Pt seen and examined at bedside. She is awake and alert. She complains of increased shortness of breath. - Current Medication List Current Medications: Active Medications Acetaminophen (Tylenol -) 325 mg PO Q8H PRN PRN Reason: PAIN LEVEL 6-10 Last Admin: 02/02/19 06:18 Dose: 325 mg Amiodarone HCl (Cordarone -) 400 mg PO TID [facility] Last Admin: 02/03/19 06:16 Dose: 400 mg Apixaban (Eliquis -) 5 mg PO BID [facility] Last Admin: 02/03/19 10:04 Dose: 5 mg Budesonide/Formoterol Fumarate (Symbicort 80/4.5mcg -) 2 puff IH BID [facility] Last Admin: 02/03/19 10:06 Dose: 2 puff Bupropion HCl (Wellbutrin Xl -) 150 mg PO DAILY [facility] Last Admin: 02/03/19 10:04 Dose: 150 mg Ergocalciferol (Drisdol -) 50,000 unit PO Foster@1000 [facility] Furosemide (Lasix -) 40 mg PO BIDLASIX [facility] Last Admin: 02/03/19 06:16 Dose: 40 mg Gabapentin (Neurontin -) 300 mg PO TID [facility] Last Admin: 02/03/19 06:16 Dose: 300 mg Hydroxyzine Pamoate (Vistaril -) 50 mg PO DAILY [facility] Last Admin: 02/03/19 10:04 Dose: 50 mg Levalbuterol HCl (Xopenex) 0.31 mg IH Q8H PRN PRN Reason: ASTHMA Last Admin: 02/03/19 08:00 Dose: 0.31 mg Metoprolol Tartrate (Lopressor Injection -) 5 mg IVPUSH Q4H PRN PRN Reason: HYPERTENSION Last Admin: 02/03/19 06:00 Dose: 5 mg Metoprolol Tartrate (Lopressor -) 200 mg PO BID [facility] Last Admin: 02/03/19 10:04 Dose: 200 mg Nystatin (Nystatin Oral Suspension -) 500,000 units PO Q6HPO [facility] Last Admin: 02/03/19 11:21 Dose: 500,000 units Oxycodone HCl (Roxicodone -) 10 mg PO Q8H PRN PRN Reason: PAIN LEVEL 6-10 Last Admin: 02/03/19 06:16 Dose: 10 mg Prednisone (Deltasone -) 40 mg PO DAILY [facility] Last Admin: 02/03/19 10:04 Dose: 40 mg Sitagliptin Phosphate (Januvia -) 50 mg PO DAILY [facility] Last Admin: 02/03/19 10:04 Dose: 50 mg Verapamil HCl (Calan -) 80 mg PO TID [facility] Last Admin: 02/03/19 06:16 Dose: 80 mg - Objective Vital Signs: Vital Signs Temperature 98.6 F 02/03/19 10:00 Pulse Rate 89 02/03/19 10:00 Respiratory Rate 18 02/03/19 10:00 Blood Pressure 182/105 H 02/03/19 10:00 O2 Sat by Pulse Oximetry (%) 89 L 02/03/19 10:00 Constitutional: Yes: Calm Eyes: Yes: Conjunctiva Clear HENT: Yes: Atraumatic Neck: Yes: Supple Cardiovascular: Yes: S1, S2 Respiratory: Yes: CTA Bilaterally Gastrointestinal: Yes: Soft Genitourinary: Yes: WNL Musculoskeletal: Yes: WNL Edema: Yes Edema: LLE: 2+, RLE: 2+ Neurological: Yes: Oriented Psychiatric: Yes: Oriented Labs: CBC, BMP 02/02/19 05:30 02/02/19 05:30 INR, PTT INR 1.30 (0.83-1.09) H 01/31/19 13:49 Assessment/Plan Current Medications Generic Name Dose Route Start Last Admin Trade Name Freq PRN Reason Stop Dose Admin Acetaminophen 325 mg 01/31/19 22:39 02/02/19 06:18 Tylenol - PO 325 mg Q8H PRN Administration PAIN LEVEL 6-10 Amiodarone HCl 400 mg 02/02/19 11:00 02/03/19 06:16 Cordarone - PO 400 mg TID JOLENE Administration Apixaban 5 mg 01/31/19 22:00 02/03/19 10:04 Eliquis - PO 5 mg BID JOLENE Administration Budesonide/Formoterol Fumarate 2 puff 01/31/19 22:00 02/03/19 10:06 Symbicort 80/4.5mcg - IH 2 puff BID JOLENE Administration Bupropion HCl 150 mg 02/01/19 10:00 02/03/19 10:04 Wellbutrin Xl - PO 150 mg DAILY JOLENE Administration Ergocalciferol 50,000 unit 02/07/19 10:00 Drisdol - PO Foster@1000 [facility] Furosemide 40 mg 02/01/19 06:00 02/03/19 06:16 Lasix - PO 40 mg BIDLASIX JOLENE Administration Gabapentin 300 mg 01/31/19 22:00 02/03/19 06:16 Neurontin - PO 300 mg TID JOLENE Administration Hydroxyzine Pamoate 50 mg 02/01/19 10:00 02/03/19 10:04 Vistaril - PO 50 mg DAILY [facility] Administration Levalbuterol HCl 0.31 mg 02/02/19 10:51 02/03/19 08:00 Xopenex IH 0.31 mg Q8H PRN Administration ASTHMA Metoprolol Tartrate 5 mg 01/31/19 18:53 02/03/19 06:00 Lopressor Injection - IVPUSH 5 mg Q4H PRN Administration HYPERTENSION Metoprolol Tartrate 200 mg 02/01/19 22:00 02/03/19 10:04 Lopressor - PO 200 mg BID [facility]OLENE Administration Nystatin 500,000 units 02/01/19 12:00 02/03/19 11:21 Nystatin Oral Suspension - PO 500,000 units Q6HPO [facility] Administration Oxycodone HCl 10 mg 01/31/19 22:39 02/03/19 06:16 Roxicodone - PO 10 mg Q8H PRN Administration PAIN LEVEL 6-10 Prednisone 40 mg 02/01/19 10:00 02/03/19 10:04 Deltasone - PO 40 mg DAILY [facility] Administration Sitagliptin Phosphate 50 mg 02/01/19 10:00 02/03/19 10:04 Januvia - PO 50 mg DAILY [facility] Administration Verapamil HCl 80 mg 01/31/19 22:00 02/03/19 06:16 Calan - PO 80 mg TID JOLENE Administration Impression 1. CKD 2. CHF 3. a-fib 4. lower ext edema 5. COPD 6. active smoker Plan - increase dose of lasix - check bmp - monitor volume status - cardio follow up - rate control - avoid nephrotoxins - ua neg for blood or protein
--- NOTE | 2019-02-03 12:48 | CON.ID ---
Consult Consult Specialty:: infectious disease Referred by:: flaco Reason for Consultation:: abnormal chest ct - History of Present Illness Chief Complaint: sob , rapid afib History of Present Illness: fourth recent admission for this 58 yo female with rapid afib and CHF- she just left AMA 01/30 and readmistted 01/31 asked to see b/c of abnormal chest ct-done yesterday today she is more tachypneic and hypoxic, no real cough, on prednisone, lasix and nebs stat chest xray shows worsening right sided infiltrate d/w Dr Virk- we will transfer patient to ICU no travel no sick contacts of 35 years at bedside smoker denies IVDU pcp is dr leong no recent steroids as outpt history of mild thrombocytopenia recent po clindamycin for tooth ache that has resolved - History Source History Provided By: Patient Limitations to Obtaining History: Clinical Condition - 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 (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) Cardio/Vascular: Yes: AFIB, CHF, HTN, Hyperlipdemia Pulmonary: Yes: COPD, Previously Intubated (2012) Renal/: Yes: Renal Inusuff (CKD) Musculoskeletal: Yes: Osteoarthritis Endocrine: Yes: Diabetes Mellitus, Hypothyroidism - Past Surgical History Past Surgical History: Yes: - Alcohol/Substance Use Hx Alcohol Use: No History of Substance Use: reports: None - Smoking History Smoking history: Current every day smoker Have you smoked in the past 12 months: Yes Aproximately how many cigarettes per day: 4 - Social History Usual Living Arrangement: With Spouse (and two grand children) ADL: Independent History of Recent Travel: No Home Medications - Allergies Allergies/Adverse Reactions: Allergies Allergy/AdvReac Type Severity Reaction Status Date / Time morphine Allergy Severe Verified 01/09/19 06:22 Penicillins Allergy Severe Hives Verified 01/09/19 06:22 tomato [Tomato] Allergy Unknown Verified 01/09/19 06:22 chocolate AdvReac Unknown Uncoded 01/09/19 06:22 - Home Medications Home Medications: Ambulatory Orders Albuterol Sulfate Inhaler - [Ventolin HFA Inhaler -] 1 inh IH QID PRN 05/21/18 Budesonide/Formeterol Fumarate [SYMBICORT 80/4.5mcg -] 2 puff IH BID #1 inhaler 12/28/18 Bupropion HCl [Wellbutrin Xl -] 150 mg PO DAILY tab.sr.24h 12/28/18 Gabapentin [Neurontin -] 300 mg PO TID capsule 01/15/19 Cholecalciferol (Vitamin D3) [Vitamin D -] 50,000 unit PO WEEKLY 01/22/19 Linagliptin [Tradjenta] 5 mg PO DAILY 01/22/19 Oxycodone HCl/Acetaminophen [Endocet 10-325 mg Tablet] 1 each PO TID 01/22/19 hydrOXYzine PAMOATE [Vistaril -] 50 mg PO DAILY 01/22/19 Apixaban [Eliquis -] 5 mg PO BID #30 tablet MDD 2 01/29/19 Furosemide [Lasix -] 40 mg PO BID@0600,1400 #30 tablet MDD 2 01/29/19 Atenolol [Tenormin -] 50 mg PO BID 01/31/19 Family Disease History - Family Disease History Family Disease History: Other: Father (: Fell down stairs), Mother (: 80 : CHF), Brother (2, 1 unclear causes), Sister (4 sis: 1 : [place], 1 unclear cause), Son (3), Daughter (3) Review of Systems - Review of Systems Constitutional: reports: No Symptoms Eyes: reports: No Symptoms HENT: reports: No Symptoms (toothpain resolved) Neck: reports: No Symptoms Cardiovascular: reports: Edema, Shortness of Breath Respiratory: reports: Wheezing Gastrointestinal: reports: No Symptoms. denies: Abdominal Pain Genitourinary: reports: No Symptoms Breasts: reports: No Symptoms Reported Musculoskeletal: reports: Other (sciatica, pain radiating down left leg) Physical Exam Vital Signs: Vital Signs Temperature 98.6 F 02/03/19 10:00 Pulse Rate 89 02/03/19 10:00 Respiratory Rate 18 02/03/19 10:00 Blood Pressure 182/105 H 02/03/19 10:00 O2 Sat by Pulse Oximetry (%) 89 L 02/03/19 10:00 Constitutional: Yes: Mild Distress, Obese Eyes: Yes: Conjunctiva Clear. No: Sclera Icterus HENT: Yes: Atraumatic, Normocephalic, Other (very poor dentition). No: Tonsillar Exudate Neck: Yes: Supple Cardiovascular: Yes: Regular Rate and Rhythm, Tachycardia Respiratory: Yes: Accessory Muscle Use, Poor Air Entry, Other (crackles throughout) Gastrointestinal: Yes: Normal Bowel Sounds, Soft. No: Tenderness, Epigastrium ...Rectal Exam: Yes: Deferred Extremities: Yes: WNL Edema: Yes Edema: LLE: 1+, RLE: 1+ Integumentary: Yes: WNL. No: Rash Neurological: Yes: Alert Labs: CBC, BMP 02/02/19 05:30 02/02/19 05:30 Imaging - Results Chest X-ray: Report Reviewed, Image Reviewed (right lung infiltrate increased) Cat Scan: Report Reviewed, Image Reviewed (patchy infiltrates bilaterally) Problem List - Problems (1) Acute and chronic respiratory failure Code(s): J96.20 - ACUTE AND CHR RESP FAILURE, UNSP W HYPOXIA OR HYPERCAPNIA (2) Atrial fibrillation with rapid ventricular response Code(s): I48.91 - UNSPECIFIED ATRIAL FIBRILLATION (3) Leg edema Code(s): R60.0 - LOCALIZED EDEMA (4) Poor dentition Code(s): K08.9 - DISORDER OF TEETH AND SUPPORTING STRUCTURES, UNSPECIFIED (5) Penicillin allergy Code(s): Z88.0 - ALLERGY STATUS TO PENICILLIN Assessment/Plan acute worsening of SOB and cxray ?infectious ?worsening CHF- significant leg edema still present ABG transfer to ICU 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
[2019-02-03] MEDS ORDERED: AZTREONAM 2 GM in DEXTROSE 5%-WATER - 50 ML IVPB SCH (13:15)
[2019-02-03] MEDS ORDERED: AZTREONAM 1 GM in DEXTROSE 5%-WATER - 50 ML IVPB SCH (13:15)
[2019-02-03] MEDS ORDERED: AZTREONAM 1 GM VIAL (RESTRICTED TO ID) ONE (14:01)
[2019-02-03] MEDS: ACETAMINOPHEN 325 MG TABLET (FP) PO PRN (14:15)
--- NOTE | 2019-02-03 14:29 | PN ---
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, Physician Chief Complaint: more sob tele af controlled VR History of Present Illness: 58-year-old woman with a PMHx of HTN, persistent atrial fibrillation on Eliquis , DM, chronic diastolic CHF, COPD, CKD, chronic LE swelling readmitted 2018 one day after she left AMA because she has no health aid arranged. The patient was recently admitted with rapid afib with very difficult VR control , JOSEPH on CKD and diastolic CHF. She refused recommended cardioversion at that time. She is now considering to cardioversion. she is more sob today, cxr now shows pneumonia, being transferred to ICU. - Current Medication List Current Medications: Active Medications Acetaminophen (Tylenol -) 325 mg PO Q8H PRN PRN Reason: PAIN LEVEL 6-10 Last Admin: 02/03/19 14:15 Dose: 325 mg Amiodarone HCl (Cordarone -) 400 mg PO TID [facility] Last Admin: 02/03/19 13:11 Dose: 400 mg Apixaban (Eliquis -) 5 mg PO BID [facility] Last Admin: 02/03/19 10:04 Dose: 5 mg Budesonide/Formoterol Fumarate (Symbicort 80/4.5mcg -) 2 puff IH BID [facility] Last Admin: 02/03/19 10:06 Dose: 2 puff Bupropion HCl (Wellbutrin Xl -) 150 mg PO DAILY [facility] Last Admin: 02/03/19 10:04 Dose: 150 mg Ergocalciferol (Drisdol -) 50,000 unit PO Foster@1000 [facility] Furosemide (Lasix -) 60 mg PO BIDLASIX [facility] Last Admin: 02/03/19 13:11 Dose: 60 mg Gabapentin (Neurontin -) 300 mg PO TID [facility] Last Admin: 02/03/19 13:11 Dose: 300 mg Hydroxyzine Pamoate (Vistaril -) 50 mg PO DAILY [facility] Last Admin: 02/03/19 10:04 Dose: 50 mg Metronidazole (Flagyl 500mg Premixed Ivpb -) 500 mg in 100 mls @ 100 mls/hr IVPB Q8H-IV [facility]OLENE Vancomycin HCl (Vancomycin (Pre-Docked)) 1,000 mg in 250 mls @ 166.667 mls/hr IVPB Q12H [facility]; Protocol Aztreonam 2 gm/ Dextrose 100 mls @ 100 mls/hr IVPB Q8H-IV [facility]OLENE; Protocol Levalbuterol HCl (Xopenex) 0.31 mg IH Q8H PRN PRN Reason: ASTHMA Last Admin: 02/03/19 12:34 Dose: 0.31 mg Metoprolol Tartrate (Lopressor Injection -) 5 mg IVPUSH Q4H PRN PRN Reason: HYPERTENSION Last Admin: 02/03/19 06:00 Dose: 5 mg Metoprolol Tartrate (Lopressor -) 200 mg PO BID [facility] Last Admin: 02/03/19 10:04 Dose: 200 mg Nystatin (Nystatin Oral Suspension -) 500,000 units PO Q6HPO [facility] Last Admin: 02/03/19 11:21 Dose: 500,000 units Oxycodone HCl (Roxicodone -) 10 mg PO Q8H PRN PRN Reason: PAIN LEVEL 6-10 Last Admin: 02/03/19 14:14 Dose: 10 mg Prednisone (Deltasone -) 40 mg PO DAILY [facility] Last Admin: 02/03/19 10:04 Dose: 40 mg Sitagliptin Phosphate (Januvia -) 50 mg PO DAILY [facility] Last Admin: 02/03/19 10:04 Dose: 50 mg Verapamil HCl (Calan -) 80 mg PO TID [facility] Last Admin: 02/03/19 13:10 Dose: 80 mg - Objective Vital Signs: Vital Signs Temperature 98.6 F 02/03/19 10:00 Pulse Rate 108 H 02/03/19 13:15 Respiratory Rate 20 02/03/19 13:15 Blood Pressure 165/108 H 02/03/19 13:15 O2 Sat by Pulse Oximetry (%) 89 L 02/03/19 10:00 Constitutional: Yes: No Distress, Poor Hygeine Eyes: Yes: EOM Intact HENT: Yes: Normocephalic Neck: Yes: Trachea Midline Cardiovascular: Yes: Pulse Irregular Respiratory: Yes: Rhonchi (bilat) Gastrointestinal: Yes: Normal Bowel Sounds, Soft Musculoskeletal: Yes: WNL Extremities: Yes: WNL Labs: CBC, BMP 02/02/19 05:30 02/02/19 05:30 INR, PTT INR 1.30 (0.83-1.09) H 01/31/19 13:49 Assessment/Plan 58-year-old woman with a PMHx of HTN, persistent atrial fibrillation on Eliquis , DM, chronic diastolic CHF, COPD, CKD, chronic LE swelling readmitted 2018 one day after she left AMA because she has no health aid arranged. The patient was recently admitted with rapid afib with very difficult VR control , JOSEPH on CKD and diastolic CHF. She refused recommended cardioversion at that time. She is now considering to cardioversion. More sob now CXR shows pneumonia. Being transferred to ICU. 1) Persistent atrial fibrillation with difficult VR control. -as per discussion yesterday and again today plan to start Amiodarone 400 mg TID with meals with goal of achieving rate control -discussed with pt that there is a low but possible risk of thromboembolic event if she has a intracardiac thrombus present and if she converts to nsr on amiodarone, however as she has been on AC with eliquis for a few weeks now this risk should be minimal -hold Digoxin for now -Continue metoprolol tartrate 200 mg BID, verapamil 80 mg TID -additionally she has poor dentition with multiple teeth missing and pt reports current loose teeth. -for ERMELINDA/DCCV to be considered she will need a dental evaluation as there is risk of further tooth dislodgement and aspiration -if possible please have Dental evaluate while inpatient -Will further consider ERMELINDA and DCCV if her VR remains rapid in 2-3 days, but her respiratory status is worsening and will continue to follow. -would refrain from DCCV while infected. -Daily ECG to monitor QT interval. -Continue Eliquis 5 mg BID. -Continue tele. 2) Chronic diastolic CHF: Stable, no respiratory distress. But she still has leg edema and elevated BNP. -Continue IV Lasix 40 mg BID. 3) Respiratory distress -continue abx per ID and treatment per pulmonary, transfer to ICU.
[2019-02-03 14:34] LABS: ARTERIAL BLD GAS O2 SATURATION 89.3 % (95-98); ARTERIAL BLOOD GAS PCO2 58.5 mmHg (35-45)
[2019-02-03 14:35] LABS: ALLENS TEST POSITIVE
--- NOTE | 2019-02-03 14:52 | CONSULT ---
Consultation: REQUESTING PROVIDER: Dr. Virk CONSULT REQUEST: We have been asked to medically evaluate this patient for tachypnea and hypoxia. HISTORY OF PRESENT ILLNESS: Pt is a 58yo F with PMH of Afib (on Eliquis), COPD (uses up to 4L O2 at home PRN ), dCHF, CKD, DM, HTN, Chronic LE swelling presenting from 4W to ICU for hypoxia on RA and tachypnea. Patient was admitted for RVR due to Afib (had previous admission but left AMA a few days ago). Per chart review, HR has been controlled with medications. Patient states she feels fine and does not feel short of breath more than usual. Denies fevers, chills, chest pain, headache, numbness/tingling, abdominal pain. She states that the swelling in her legs has gone down. Endorses dry cough. CXR shows congestive changes and a new R sided infiltrate. Patient is currently receiving antibiotics per ID. It was recommended to the patient to have cardioversion to correct her rhythm at previous admission but patient refused at the time. She is currently consenting for cardioversion if necessary. Upon discussion with the patient, she has never been intubated and states that she would never want that done to her. She also is refusing chest compressions to be performed. She states she is making her health decisions but her and sister can also make decisions for her if she were to lose capacity. REVIEW OF SYSTEMS: CONSTITUTIONAL: Absent: fever, chills, diaphoresis, generalized weakness, malaise, loss of appetite, weight change HEENT: Absent: rhinorrhea, nasal congestion, throat pain, throat swelling, difficulty swallowing, mouth swelling, ear pain, eye pain, visual changes CARDIOVASCULAR: +lower leg edema bilaterally Absent: chest pain, syncope, palpitations, lightheadedness RESPIRATORY: +dry cough Absent: shortness of breath, dyspnea with exertion, orthopnea, wheezing, stridor , hemoptysis GASTROINTESTINAL: Absent: abdominal pain, abdominal distension, nausea, vomiting, diarrhea, constipation, melena, hematochezia GENITOURINARY: Absent: dysuria, frequency, urgency, hesitancy, hematuria, flank pain, genital pain MUSCULOSKELETAL: Absent: myalgia, arthralgia, joint swelling, back pain, neck pain NEUROLOGIC: Absent: headache, focal weakness or paresthesias, dizziness, unsteady gait, seizure, mental status changes, bladder or bowel incontinence PHYSICAL EXAMINATION Vital Signs - 24 hr 02/02/19 02/02/19 02/03/19 18:00 21:00 01:15 Temperature 97.5 F L 98 F Pulse Rate 120 H 105 H 100 H Respiratory 20 19 Rate Blood Pressure 167/113 H 169/98 170/116 H O2 Sat by Pulse 90 L Oximetry (%) 02/03/19 02/03/19 02/03/19 02:00 06:00 09:00 Temperature 98.2 F 98.2 F Pulse Rate 127 H 112 H Respiratory 24 H 18 Rate Blood Pressure 170/116 H 178/106 H O2 Sat by Pulse 86 L Oximetry (%) 02/03/19 02/03/19 10:00 13:15 Temperature 98.6 F Pulse Rate 89 108 H Respiratory 18 20 Rate Blood Pressure 182/105 H 165/108 H O2 Sat by Pulse 89 L Oximetry (%) GENERAL: Awake, alert, Ox3 in no acute distress. HEAD: Normal with no signs of trauma. EYES: Pupils equal, round and reactive to light, extraocular movements intact, sclera anicteric, conjunctiva clear. No lid lag. NECK: Normal range of motion, supple without lymphadenopathy, JVD, or masses. LUNGS: Decreased breath sounds bilaterally. No wheezes, and no crackles. No intercostal retractions HEART: irregularly irregular, normal S1 and S2 without murmur, rub or gallop. ABDOMEN: Soft, nontender, not distended, normoactive bowel sounds, no guarding, no rebound, no masses. No hepatomegaly or splenomegaly. MUSCULOSKELETAL: Normal range of motion at all joints. No bony deformities or tenderness. No CVA tenderness. UPPER EXTREMITIES: 2+ pulses, warm, well-perfused. No cyanosis. No clubbing. Cap refill <2 seconds. No peripheral edema. LOWER EXTREMITIES: 2+ pulses, warm, well-perfused. No calf tenderness. 2+ pitting edema NEUROLOGICAL: Cranial nerves II-XII intact. Normal speech. PSYCHIATRIC: Cooperative. Good eye contact. Appropriate mood and affect. SKIN: Warm, dry, normal turgor, no rashes or lesions noted. Laboratory Results - last 24 hr 02/02/19 02/02/19 02/03/19 16:56 21:59 05:27 Puncture Site ABG pH ABG pCO2 at Pt Temp ABG pO2 at Pt Temp ABG HCO3 ABG O2 Sat (Measured) ABG O2 Content ABG Base Excess Randy Test Oxygen Flow Rate POC Glucometer 251 181 147 02/03/19 02/03/19 11:20 12:51 Puncture Site Right radial ABG pH 7.40 ABG pCO2 at Pt Temp 58.5 H ABG pO2 at Pt Temp 61.0 L ABG HCO3 35.6 H ABG O2 Sat (Measured) 89.3 L ABG O2 Content 16.9 ABG Base Excess 9.0 H Randy Test Positive Oxygen Flow Rate Yes POC Glucometer 119 Active Medications Generic Name Dose Route Start Last Admin Trade Name Freq PRN Reason Stop Dose Admin Acetaminophen 325 mg 01/31/19 22:39 02/03/19 14:15 Tylenol - PO 325 mg Q8H PRN Administration PAIN LEVEL 6-10 Amiodarone HCl 400 mg 02/02/19 11:00 02/03/19 13:11 Cordarone - PO 400 mg TID JOLENE Administration Apixaban 5 mg 01/31/19 22:00 02/03/19 10:04 Eliquis - PO 5 mg BID JOLENE Administration Budesonide/Formoterol Fumarate 2 puff 01/31/19 22:00 02/03/19 10:06 Symbicort 80/4.5mcg - IH 2 puff BID JOLENE Administration Bupropion HCl 150 mg 02/01/19 10:00 02/03/19 10:04 Wellbutrin Xl - PO 150 mg DAILY [facility] Administration Ergocalciferol 50,000 unit 02/07/19 10:00 Drisdol - PO Foster@1000 JOLENE Furosemide 60 mg 02/03/19 12:12 02/03/19 13:11 Lasix - PO 60 mg BIDLASIX [facility]ENE Administration Gabapentin 300 mg 01/31/19 22:00 02/03/19 13:11 Neurontin - PO 300 mg TID [facility]OLENE Administration Hydroxyzine Pamoate 50 mg 02/01/19 10:00 02/03/19 10:04 Vistaril - PO 50 mg DAILY [facility] Administration Metronidazole 500 mg in 100 mls @ 100 mls/hr 02/03/19 13:15 Flagyl 500mg Premixed Ivpb - IVPB Q8H-IV [facility] Vancomycin HCl 1,000 mg in 250 mls @ 166.667 mls/hr 02/03/19 13:15 Vancomycin (Pre-Docked) IVPB Q12H [facility] Protocol Aztreonam 2 gm/ Dextrose 100 mls @ 100 mls/hr 02/03/19 15:00 IVPB Q8H-IV [facility] Protocol Levalbuterol HCl 0.31 mg 02/02/19 10:51 02/03/19 12:34 Xopenex IH 0.31 mg Q8H PRN Administration ASTHMA Metoprolol Tartrate 5 mg 01/31/19 18:53 02/03/19 06:00 Lopressor Injection - IVPUSH 5 mg Q4H PRN Administration HYPERTENSION Metoprolol Tartrate 200 mg 02/01/19 22:00 02/03/19 10:04 Lopressor - PO 200 mg BID JOLENE Administration Nystatin 500,000 units 02/01/19 12:00 02/03/19 11:21 Nystatin Oral Suspension - PO 500,000 units Q6HPO JOLENE Administration Oxycodone HCl 10 mg 01/31/19 22:39 02/03/19 14:14 Roxicodone - PO 10 mg Q8H PRN Administration PAIN LEVEL 6-10 Prednisone 40 mg 02/01/19 10:00 02/03/19 10:04 Deltasone - PO 40 mg DAILY [facility]ENE Administration Sitagliptin Phosphate 50 mg 02/01/19 10:00 02/03/19 10:04 Januvia - PO 50 mg DAILY [facility] Administration Verapamil HCl 80 mg 01/31/19 22:00 02/03/19 13:10 Calan - PO 80 mg TID [facility]ENE Administration ASSESSMENT/PLAN: Pt is a 58yo F with PMH of Afib (on Eliquis), COPD (uses up to 4L O2 at home PRN ), dCHF, CKD, DM, HTN, Chronic LE swelling presenting from 4W to ICU for hypoxia on RA and tachypnea. Right sided infiltrate found on chest xray. #NEURO -AOx3 -Will monitor mental status due to hypoxia #CARDIO/VASC -H/o Afib, dCHF, HTN -Cardiology consulting -BNP 05403, Trop 0.04 on admission -Amiodarone 400mg TID with food -Continue Eliquis 5mg BID, Metoprolol 200mg BID, Verapamil 80mg TID for Afib -Continue Lasix 40mg BID IV -Hold digoxin -Daily EKGs per Cardiology -HR currently in the 70s #PULM -H/o COPD, current smoker, uses up to 4L home O2 prn -CXR shows congestion and R sided infiltrate -Symbicort BID, Prednisone 40mg daily, Levalbuterol Q8H prn -Vancomycin, aztreonam, Flagyl per ID day 1 -Concern for HAP due to recent admission -ABG: pH 7.4, O2 61, CO2 58, HCO3 35; chronic retention, hypoxia -Currently on 3L NC #ID -R sided infiltrate on CXR, [facility] pna -CT yesterday shows pneumonic infiltrates -WBC 12.4; infectious v. steroid use -Afebrile -Vancomycin, Flagyl, Aztreonam day 1 -Blood cultures sent -Negative for legionella and strep pneumo -Avoid fluoroquinolones due to amiodarone use #RENAL -H/o CKD -Cr 1.1 on admission -Avoid nephrotoxic agents -Nephrology consulting #ENDO -H/o NIDDM -Januvia 50mg -BGMs #GI -No active issues -Tolerating PO #PPx -On Eliquis #FEN -Diabetic, salt restricted diet -Monitor lytes, replete as needed Dispo: We will continue to follow the patient. Thank you for this consultative opportunity. Visit type - Emergency Visit Emergency Visit: Yes ED Registration Date: 01/31/19 Care time: The patient presented to the Emergency Department on the above date and was hospitalized for further evaluation of their emergent condition. - New Patient This patient is new to me today: Yes Date on this admission: 02/03/19 - Critical Care Critical Care patient: Yes Total Critical Care Time (in minutes): 35 Critical Care Statement: The care of this patient involved high complexity decision making to prevent further life threatening deterioration of the patient 's condition and/or to evaluate & treat vital organ system(s) failure or risk of failure.
[2019-02-03] MEDS: AZTREONAM 2 GM in DEXTROSE 5%-WATER 100 ML IVPB SCH ×2 (16:45→19:56)
[2019-02-03] MEDS: VANCOMYCIN 1 GRAM (PRE-DOCKED) 1,000 MG/250 ML BAG IVPB SCH (17:50)
[2019-02-04] MEDS: NYSTATIN 500,000 UNITS/5 ML SUSPENSION PO SCH ×4 (00:19→17:14)
[2019-02-04] MEDS: VANCOMYCIN 1 GRAM (PRE-DOCKED) 1,000 MG/250 ML BAG IVPB SCH ×2 (00:19→12:25)
[2019-02-04] MEDS: AZTREONAM 2 GM in DEXTROSE 5%-WATER 100 ML IVPB SCH ×3 (01:13→17:14)
[2019-02-04 06:22] LABS: BASO % 0.4 % (0-2.0); EOS % 0.1 % (0-4.5); HEMATOCRIT 37.9 % (32.4-45.2); HEMOGLOBIN 12.1 GM/dL (10.7-15.3); LYMPH % 5.1 % (8-40); MCH 29.4 pg (25.7-33.7); MCHC 32.1 g/dl (32.0-36.0); MEAN CELL VOLUME 91.7 fl (80-96); MEAN PLT VOLUME 11.1 fl (7.5-11.1); MONO % 9.2 % (3.8-10.2); NEUT % 85.2 % (42.8-82.8); PLATELET COUNT 95 K/MM3 (134-434); RBC 4.13 M/mm3 (3.60-5.2); RDW 17.1 % (11.6-15.6); WHITE BLOOD COUNT 12.4 K/mm3 (4.0-10.0)
[2019-02-04] MEDS: VERAPAMIL HCL 80 MG TABLET PO SCH ×3 (06:25→22:13)
[2019-02-04] MEDS: AMIODARONE HCL 200 MG TABLET (FP) PO SCH ×3 (06:25→21:51)
[2019-02-04] MEDS: FUROSEMIDE 40 MG TABLET (FP) PO SCH ×2 (06:26→13:20)
[2019-02-04] MEDS: GABAPENTIN 300 MG CAPSULE (FP) PO SCH ×3 (06:26→21:51)
[2019-02-04 06:28] LABS: ARTERIAL BLD GAS O2 SATURATION 95.4 % (95-98); ARTERIAL BLOOD GAS BASE EXCESS 9.6 meq/l (-2-2); ARTERIAL BLOOD GAS PO2 86.2 mmHg (80-105)
[2019-02-04 06:37] LABS: ALLENS TEST POSITIVE
[2019-02-04 06:51] LABS: CALCIUM 7.9 mg/dL (8.5-10.1); CREATININE 1.5 mg/dL (0.55-1.3); MAGNESIUM 2.4 mg/dL (1.8-2.4); PHOSPHOROUS 4.2 mg/dL (2.5-4.9); POTASSIUM 3.2 mmol/L (3.5-5.1); TOT PROT 5.7 g/dl (6.4-8.2)
--- NOTE | 2019-02-04 08:14 | PN ---
Physical Exam: SUBJECTIVE: Patient seen and examined at bedside. No acute events overnight. Patient states that her legs are much less swollen compared to when she was admitted. OBJECTIVE: Vital Signs Period Temp Pulse Resp BP Sys/Salgado Pulse Ox Last 24 Hr 98.2 F-98.6 F 60-108 13-22 139-182/90-125 86-100 GENERAL: The patient is awake, alert, and fully oriented, in no acute distress. EYES: PERRL, extraocular movements intact, sclera anicteric, conjunctiva clear. No ptosis. . LUNGS: Decreased breath sounds bilaterally HEART: Irregular, S1, S2 without murmur, rub or gallop. ABDOMEN: Soft, nontender, nondistended, normoactive bowel sounds, no guarding, no rebound, no hepatosplenomegaly, no masses. EXTREMITIES: 2+ pulses, warm, well-perfused, 2+ edema in LE bilaterally. NEUROLOGICAL: Cranial nerves II through XII grossly intact. Normal speech, gait not observed. PSYCH: Normal mood, normal affect. SKIN: Warm, dry, normal turgor, no rashes or lesions noted Laboratory Results - last 24 hr 02/03/19 02/03/19 02/03/19 11:20 12:51 17:17 WBC RBC Hgb Hct MCV MCH MCHC RDW Plt Count MPV Absolute Neuts (auto) Neutrophils % Lymphocytes % Monocytes % Eosinophils % Basophils % Nucleated RBC % Anticoagulation Therapy Puncture Site Right radial ABG pH 7.40 ABG pCO2 at Pt Temp 58.5 H ABG pO2 at Pt Temp 61.0 L ABG HCO3 35.6 H ABG O2 Sat (Measured) 89.3 L ABG O2 Content 16.9 ABG Base Excess 9.0 H Randy Test Positive O2 Delivery Device Oxygen Flow Rate Yes Vent Mode Vent Rate Mechanical Rate Pressure Support Vent Sodium Potassium Chloride Carbon Dioxide Anion Gap BUN Creatinine Est GFR (CKD-EPI)AfAm Est GFR (CKD-EPI)NonAf POC Glucometer 119 207 Random Glucose Calcium Phosphorus Magnesium Total Bilirubin AST ALT Alkaline Phosphatase Total Protein Albumin 02/03/19 02/04/19 02/04/19 23:32 05:30 05:30 WBC 12.4 H RBC 4.13 Hgb 12.1 Hct 37.9 MCV 91.7 MCH 29.4 MCHC 32.1 RDW 17.1 H Plt Count 95 L D MPV 11.1 Absolute Neuts (auto) 10.6 H Neutrophils % 85.2 H D Lymphocytes % 5.1 L D Monocytes % 9.2 Eosinophils % 0.1 D Basophils % 0.4 Nucleated RBC % 0 Anticoagulation Therapy Puncture Site ABG pH ABG pCO2 at Pt Temp ABG pO2 at Pt Temp ABG HCO3 ABG O2 Sat (Measured) ABG O2 Content ABG Base Excess Randy Test O2 Delivery Device Oxygen Flow Rate Vent Mode Vent Rate Mechanical Rate Pressure Support Vent Sodium 141 Potassium 3.2 L Chloride 98 Carbon Dioxide 39 H Anion Gap 4 L BUN 37 H Creatinine 1.5 H Est GFR (CKD-EPI)AfAm 43.43 Est GFR (CKD-EPI)NonAf 37.48 POC Glucometer 249 Random Glucose 141 H Calcium 7.9 L Phosphorus 4.2 Magnesium 2.4 Total Bilirubin 1.0 AST 11 L ALT 33 Alkaline Phosphatase 68 Total Protein 5.7 L Albumin 3.0 L 02/04/19 02/04/19 06:00 06:13 WBC RBC Hgb Hct MCV MCH MCHC RDW Plt Count MPV Absolute Neuts (auto) Neutrophils % Lymphocytes % Monocytes % Eosinophils % Basophils % Nucleated RBC % Anticoagulation Therapy No Result Required. Puncture Site Right radial ABG pH 7.30 L ABG pCO2 at Pt Temp 82.0 H* ABG pO2 at Pt Temp 86.2 ABG HCO3 38.8 H ABG O2 Sat (Measured) 95.4 ABG O2 Content 16.6 ABG Base Excess 9.6 H Randy Test Positive O2 Delivery Device Nasal Oxygen Flow Rate 3l Vent Mode No Result Required. Vent Rate No Result Required. Mechanical Rate No Result Required. Pressure Support Vent No Result Required. Sodium Potassium Chloride Carbon Dioxide Anion Gap BUN Creatinine Est GFR (CKD-EPI)AfAm Est GFR (CKD-EPI)NonAf POC Glucometer 123 Random Glucose Calcium Phosphorus Magnesium Total Bilirubin AST ALT Alkaline Phosphatase Total Protein Albumin Active Medications Generic Name Dose Route Start Last Admin Trade Name Freq PRN Reason Stop Dose Admin Acetaminophen 325 mg 01/31/19 22:39 02/03/19 14:15 Tylenol - PO 325 mg Q8H PRN Administration PAIN LEVEL 6-10 Amiodarone HCl 400 mg 02/02/19 11:00 02/04/19 06:25 Cordarone - PO 400 mg TID [facility] Administration Apixaban 5 mg 01/31/19 22:00 02/03/19 22:18 Eliquis - PO 5 mg BID [facility] Administration Budesonide/Formoterol Fumarate 2 puff 01/31/19 22:00 02/03/19 22:23 Symbicort 80/4.5mcg - IH 2 puff BID [facility] Administration Bupropion HCl 150 mg 02/01/19 10:00 02/03/19 10:04 Wellbutrin Xl - PO 150 mg DAILY [facility] Administration Ergocalciferol 50,000 unit 02/07/19 10:00 Drisdol - PO Foster@1000 [facility] Furosemide 60 mg 02/03/19 12:12 02/04/19 06:26 Lasix - PO 60 mg BIDLASIX [facility] Administration Gabapentin 300 mg 01/31/19 22:00 02/04/19 06:26 Neurontin - PO 300 mg TID [facility] Administration Hydroxyzine Pamoate 50 mg 02/01/19 10:00 02/03/19 10:04 Vistaril - PO 50 mg DAILY [facility] Administration Metronidazole 500 mg in 100 mls @ 100 mls/hr 02/03/19 13:15 02/04/19 02:09 Flagyl 500mg Premixed Ivpb - IVPB 100 mls/hr Q8H-IV [facility] Administration Vancomycin HCl 1,000 mg in 250 mls @ 166.667 mls/hr 02/03/19 13:15 02/04/19 00:19 Vancomycin (Pre-Docked) IVPB 166.667 mls/hr Q12H [facility] Administration Protocol Aztreonam 2 gm/ Dextrose 100 mls @ 100 mls/hr 02/03/19 15:00 02/04/19 01:13 IVPB 100 mls/hr Q8H-IV [facility] Administration Protocol Levalbuterol HCl 0.31 mg 02/02/19 10:51 02/03/19 12:34 Xopenex IH 0.31 mg Q8H PRN Administration ASTHMA Metoprolol Tartrate 5 mg 01/31/19 18:53 02/03/19 06:00 Lopressor Injection - IVPUSH 5 mg Q4H PRN Administration HYPERTENSION Metoprolol Tartrate 200 mg 02/01/19 22:00 02/03/19 22:18 Lopressor - PO 200 mg BID [facility] Administration Nystatin 500,000 units 02/01/19 12:00 02/04/19 06:26 Nystatin Oral Suspension - PO 500,000 units Q6HPO [facility] Administration Oxycodone/Acetaminophen 2 combo 02/04/19 08:10 Percocet 5/325 - PO Q6H PRN PAIN LEVEL 6-10 Potassium Chloride 40 meq 02/04/19 08:10 K-Dur - PO 02/04/19 08:11 ONCE ONE Prednisone 40 mg 02/01/19 10:00 02/03/19 10:04 Deltasone - PO 40 mg DAILY [facility] Administration Sitagliptin Phosphate 50 mg 02/01/19 10:00 02/03/19 10:04 Januvia - PO 50 mg DAILY [facility] Administration Verapamil HCl 80 mg 01/31/19 22:00 02/04/19 06:25 Calan - PO 80 mg TID [facility] Administration ASSESSMENT/PLAN: Pt is a 58yo F with PMH of Afib (on Eliquis), COPD (uses up to 4L O2 at home PRN ), dCHF, CKD, DM, HTN, Chronic LE swelling presenting from 4W to ICU for hypoxia on RA and tachypnea. Right sided infiltrate found on chest xray. #NEURO -AOx3 -Will monitor mental status due to hypoxia/hypercapnia #CARDIO/VASC -H/o Afib, dCHF, HTN -Cardiology consulting -BNP 58533, Trop 0.04 on admission -Amiodarone 400mg TID with food -Continue Eliquis 5mg BID, Metoprolol 200mg BID, Verapamil 80mg TID for Afib -Continue Lasix 40mg BID IV -Hold digoxin -Daily EKGs per Cardiology -HR currently in the 50s-60s #PULM -H/o COPD, current smoker, uses up to 4L home O2 prn -CXR shows congestion and R sided infiltrate -Symbicort BID, Levalbuterol Q8H prn -Decrease prednisone to 30mg daily -Vancomycin, aztreonam, Flagyl per ID day 2 -Concern for HAP due to recent admission -ABG: pH 7.3, O2 86, CO2 82 (increased from yesterday), HCO3 38; chronic retention likely -Currently on 2L NC -SpO2>90% -Duonebs -BiPap prn #ID -R sided infiltrate on CXR, lore pna -CT yesterday shows pneumonic infiltrates -WBC 12.4; infectious v. steroid use -Afebrile -Vancomycin, Flagyl, Aztreonam day 2 -Blood cultures sent -Negative for legionella and strep pneumo -Avoid fluoroquinolones due to amiodarone use #RENAL -H/o CKD -Cr 1.5 today (baseline) -Avoid nephrotoxic agents -Nephrology consulting #ENDO -H/o NIDDM -Januvia 50mg -BGMs #PPx -On Eliquis #FEN -Diabetic, salt restricted diet -K 3.2 today, will replete -Monitor and replete lytes as necessary Dispo: Stable for transfer to tele. Visit type - Emergency Visit Emergency Visit: Yes ED Registration Date: 01/31/19 Care time: The patient presented to the Emergency Department on the above date and was hospitalized for further evaluation of their emergent condition. - New Patient This patient is new to me today: No - Critical Care Critical Care patient: Yes Total Critical Care Time (in minutes): 35 Critical Care Statement: The care of this patient involved high complexity decision making to prevent further life threatening deterioration of the patient 's condition and/or to evaluate & treat vital organ system(s) failure or risk of failure.
[2019-02-04] MEDS ORDERED: ACETAMINOPHEN 325 MG TABLET (FP) PO PRN (08:20)
[2019-02-04] MEDS ORDERED: POTASSIUM CHLORIDE TABS 10 MEQ TABLET.ER (FP) PO ONE (08:30)
[2019-02-04] MEDS ORDERED: PT OWN MED DRAWER 7, Y5N ONE ×3 (08:58→17:07)
[2019-02-04] MEDS: ALBUTEROL SO4 2.5/IPRATROPIUM 0.5 INH SOL 3 ML VIAL.NEB. NEB SCH ×3 (09:00→19:50)
[2019-02-04] MEDS: predniSONE 20 MG TABLET (UD) PO SCH (09:09)
[2019-02-04] MEDS: APIXABAN 5 MG TABLET PO SCH ×2 (09:10→21:51)
[2019-02-04] MEDS: sitaGLIPtin PHOSPHATE 50 MG TABLET PO SCH (09:10)
[2019-02-04] MEDS: oxyCODONE HCL 5 MG TABLET PO PRN ×3 (09:10→22:12)
[2019-02-04] MEDS: METOPROLOL TARTRATE 50 MG TABLET (FP) PO SCH ×2 (09:12→21:51)
[2019-02-04] MEDS: hydrOXYzine PAMOATE 50 MG CAPSULE (FP) PO SCH (09:13)
[2019-02-04] MEDS: BUDESONIDE/FORMETEROL FUMARATE 80/4.5 mcg INHALER IH SCH ×2 (09:13→21:52)
--- NOTE | 2019-02-04 10:46 | PN ---
Teaching Attending Note Name of Resident: Ashely Brar ATTENDING PHYSICIAN STATEMENT I saw and evaluated the patient. I reviewed the resident's note and discussed the case with the resident. I agree with the resident's findings and plan as documented. SUBJECTIVE: Pt seen and examined in the ICU. States breathing is better today. Minimal cough. No fevers or chills. Heart rates better controlled. OBJECTIVE: Vital Signs Period Temp Pulse Resp BP Sys/Salgado Pulse Ox Last 24 Hr 98.2 F-98.4 F 60-108 13-22 139-174/90-125 91-100 Intake & Output 02/01/19 02/02/19 02/03/19 02/04/19 23:59 23:59 23:59 23:59 Intake Total 0087 668 0399 350 Balance 8712 581 3906 350 Weight 84.277 kg 84.277 kg 85.275 kg 85.684 kg Gen: mildly tachypneic with speaking Heart: irregular Lung: scattered rhonchi Abd: soft, nontender Ext: no edema CBC, BMP 02/04/19 05:30 02/04/19 05:30 Active Medications Acetaminophen (Tylenol -) 325 mg PO Q8H PRN PRN Reason: PAIN LEVEL 6-10 Last Admin: 02/03/19 14:15 Dose: 325 mg Acetaminophen (Tylenol -) 650 mg PO Q6H PRN PRN Reason: PAIN LEVEL 6-10 Albuterol/Ipratropium (Duoneb -) 1 amp NEB RTID [facility] Amiodarone HCl (Cordarone -) 400 mg PO TID [facility] Last Admin: 02/04/19 06:25 Dose: 400 mg Apixaban (Eliquis -) 5 mg PO BID [facility] Last Admin: 02/04/19 09:10 Dose: 5 mg Budesonide/Formoterol Fumarate (Symbicort 80/4.5mcg -) 2 puff IH BID [facility] Last Admin: 02/04/19 09:13 Dose: 2 puff Bupropion HCl (Wellbutrin Xl -) 150 mg PO DAILY [facility] Last Admin: 02/04/19 09:09 Dose: 150 mg Ergocalciferol (Drisdol -) 50,000 unit PO Foster@1000 [facility] Furosemide (Lasix -) 60 mg PO BIDLASIX [facility] Last Admin: 05/30/19 06:26 Dose: 60 mg Gabapentin (Neurontin -) 300 mg PO TID [facility] Last Admin: 02/04/19 06:26 Dose: 300 mg Hydroxyzine Pamoate (Vistaril -) 50 mg PO DAILY [facility] Last Admin: 02/04/19 09:13 Dose: Not Given Metronidazole (Flagyl 500mg Premixed Ivpb -) 500 mg in 100 mls @ 100 mls/hr IVPB Q8H-IV [facility] Last Admin: 02/04/19 09:09 Dose: 100 mls/hr Vancomycin HCl (Vancomycin (Pre-Docked)) 1,000 mg in 250 mls @ 166.667 mls/hr IVPB Q12H [facility]; Protocol Last Admin: 02/04/19 00:19 Dose: 166.667 mls/hr Aztreonam 2 gm/ Dextrose 100 mls @ 100 mls/hr IVPB Q8H-IV [facility]; Protocol Last Admin: 02/04/19 09:10 Dose: 100 mls/hr Levalbuterol HCl (Xopenex) 0.31 mg IH Q8H PRN PRN Reason: ASTHMA Last Admin: 02/03/19 12:34 Dose: 0.31 mg Metoprolol Tartrate (Lopressor Injection -) 5 mg IVPUSH Q4H PRN PRN Reason: HYPERTENSION Last Admin: 02/03/19 06:00 Dose: 5 mg Metoprolol Tartrate (Lopressor -) 200 mg PO BID [facility] Last Admin: 02/04/19 09:12 Dose: Not Given Nystatin (Nystatin Oral Suspension -) 500,000 units PO Q6HPO [facility] Last Admin: 02/04/19 06:26 Dose: 500,000 units Oxycodone HCl (Roxicodone -) 10 mg PO Q6H PRN PRN Reason: PAIN LEVEL 6-10 Last Admin: 02/04/19 09:10 Dose: 10 mg Prednisone (Deltasone -) 30 mg PO DAILY [facility] Sitagliptin Phosphate (Januvia -) 50 mg PO DAILY [facility] Last Admin: 02/04/19 09:10 Dose: 50 mg Verapamil HCl (Calan -) 80 mg PO TID [facility] Last Admin: 02/04/19 06:25 Dose: 80 mg ASSESSMENT AND PLAN: Acute on Chronic Hypoxic and Hypercapneic Respiratory Failure Pneumonia r/o Acute COPD Exacerbation Atrial Fibrillation with RVR Acute on Chronic Diastolic Heart Failure Acute on CKD DM Smoker - continue antibiotics per ID - f/u cultures - O2 to keep spo2 >90% - inhaled bronchodilators - taper prednisone - BiPAP as needed to assist in work of breathing - rate control - continue anticoagulation - glucose control while on systemic steroids - smoking cessation - can monitor on telemetry
--- NOTE | 2019-02-04 11:36 | PN ---
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, Physician Chief Complaint: patient seen in icu awake alert heart rate better - Current Medication List Current Medications: Active Medications Acetaminophen (Tylenol -) 325 mg PO Q8H PRN PRN Reason: PAIN LEVEL 6-10 Last Admin: 02/03/19 14:15 Dose: 325 mg Acetaminophen (Tylenol -) 650 mg PO Q6H PRN PRN Reason: PAIN LEVEL 6-10 Albuterol/Ipratropium (Duoneb -) 1 amp NEB RTID [facility] Amiodarone HCl (Cordarone -) 400 mg PO TID [facility] Last Admin: 02/04/19 06:25 Dose: 400 mg Apixaban (Eliquis -) 5 mg PO BID [facility] Last Admin: 02/04/19 09:10 Dose: 5 mg Budesonide/Formoterol Fumarate (Symbicort 80/4.5mcg -) 2 puff IH BID [facility] Last Admin: 02/04/19 09:13 Dose: 2 puff Bupropion HCl (Wellbutrin Xl -) 150 mg PO DAILY [facility] Last Admin: 02/04/19 09:09 Dose: 150 mg Ergocalciferol (Drisdol -) 50,000 unit PO Foster@1000 [facility] Furosemide (Lasix -) 60 mg PO BIDLASIX [facility] Last Admin: 02/04/19 06:26 Dose: 60 mg Gabapentin (Neurontin -) 300 mg PO TID [facility] Last Admin: 02/04/19 06:26 Dose: 300 mg Hydroxyzine Pamoate (Vistaril -) 50 mg PO DAILY [facility] Last Admin: 02/04/19 09:13 Dose: Not Given Metronidazole (Flagyl 500mg Premixed Ivpb -) 500 mg in 100 mls @ 100 mls/hr IVPB Q8H-IV [facility] Last Admin: 02/04/19 09:09 Dose: 100 mls/hr Vancomycin HCl (Vancomycin (Pre-Docked)) 1,000 mg in 250 mls @ 166.667 mls/hr IVPB Q12H [facility]; Protocol Last Admin: 02/04/19 00:19 Dose: 166.667 mls/hr Aztreonam 2 gm/ Dextrose 100 mls @ 100 mls/hr IVPB Q8H-IV [facility]; Protocol Last Admin: 02/04/19 09:10 Dose: 100 mls/hr Levalbuterol HCl (Xopenex) 0.31 mg IH Q8H PRN PRN Reason: ASTHMA Last Admin: 02/03/19 12:34 Dose: 0.31 mg Metoprolol Tartrate (Lopressor Injection -) 5 mg IVPUSH Q4H PRN PRN Reason: HYPERTENSION Last Admin: 02/03/19 06:00 Dose: 5 mg Metoprolol Tartrate (Lopressor -) 200 mg PO BID [facility] Last Admin: 02/04/19 09:12 Dose: Not Given Nystatin (Nystatin Oral Suspension -) 500,000 units PO Q6HPO [facility] Last Admin: 02/04/19 06:26 Dose: 500,000 units Oxycodone HCl (Roxicodone -) 10 mg PO Q6H PRN PRN Reason: PAIN LEVEL 6-10 Last Admin: 02/04/19 09:10 Dose: 10 mg Prednisone (Deltasone -) 30 mg PO DAILY [facility] Sitagliptin Phosphate (Januvia -) 50 mg PO DAILY [facility] Last Admin: 02/04/19 09:10 Dose: 50 mg Verapamil HCl (Calan -) 80 mg PO TID [facility] Last Admin: 02/04/19 06:25 Dose: 80 mg - Objective Vital Signs: Vital Signs Temperature 98.2 F 02/04/19 11:14 Pulse Rate 81 02/04/19 11:14 Respiratory Rate 13 02/04/19 11:14 Blood Pressure 144/127 H 02/04/19 11:14 O2 Sat by Pulse Oximetry (%) 97 02/04/19 09:00 Constitutional: Yes: Calm Cardiovascular: Yes: Regular Rate and Rhythm, S1, S2 Respiratory: Yes: CTA Bilaterally Gastrointestinal: Yes: Normal Bowel Sounds, Soft Edema: LLE: 2+, RLE: 2+ Neurological: Yes: Alert, Oriented Labs: CBC, BMP 02/04/19 05:30 02/04/19 05:30 INR, PTT INR 1.30 (0.83-1.09) H 01/31/19 13:49 Problem List - Problems (1) Atrial fibrillation with rapid ventricular response Assessment/Plan: amiodarone tid vermapmil 80mg tid metoprolol 200mg bid Code(s): I48.91 - UNSPECIFIED ATRIAL FIBRILLATION (2) Leg edema Assessment/Plan: lasix 60mg bid monitor potassium Code(s): R60.0 - LOCALIZED EDEMA (3) CKD (chronic kidney disease) Assessment/Plan: ninoska sandoval renal fucntion renal team folowing Code(s): N18.9 - CHRONIC KIDNEY DISEASE, UNSPECIFIED (4) Abnormal CT of the chest Assessment/Plan: seen by ID iv abx Code(s): R93.89 - ABNORMAL FINDINGS ON DX IMAGING OF OTH BODY STRUCTURES (5) Thrush Assessment/Plan: nystatin Code(s): B37.0 - CANDIDAL STOMATITIS (6) Poor dentition Assessment/Plan: dental eval Code(s): K08.9 - DISORDER OF TEETH AND SUPPORTING STRUCTURES, UNSPECIFIED
--- NOTE | 2019-02-04 12:39 | PN ---
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, Physician Chief Complaint: less sob tele af controlled VR History of Present Illness: 58-year-old woman with a PMHx of HTN, persistent atrial fibrillation on Eliquis , DM, chronic diastolic CHF, COPD, CKD, chronic LE swelling readmitted 2018 one day after she left AMA because she has no health aid arranged. The patient was recently admitted with rapid afib with very difficult VR control , JOSEPH on CKD and diastolic CHF. She refused recommended cardioversion at that time. She is now considering to cardioversion. she was more sob 02/03/19 cxr now shows pneumonia, transferred to ICU. clinically improving, being treated for pneumonia. Afib is now under better control. - Current Medication List Current Medications: Active Medications Acetaminophen (Tylenol -) 325 mg PO Q8H PRN PRN Reason: PAIN LEVEL 6-10 Last Admin: 02/03/19 14:15 Dose: 325 mg Acetaminophen (Tylenol -) 650 mg PO Q6H PRN PRN Reason: PAIN LEVEL 6-10 Albuterol/Ipratropium (Duoneb -) 1 amp NEB RTID [facility] Amiodarone HCl (Cordarone -) 400 mg PO TID [facility] Last Admin: 02/04/19 06:25 Dose: 400 mg Apixaban (Eliquis -) 5 mg PO BID [facility] Last Admin: 02/04/19 09:10 Dose: 5 mg Budesonide/Formoterol Fumarate (Symbicort 80/4.5mcg -) 2 puff IH BID [facility] Last Admin: 02/04/19 09:13 Dose: 2 puff Bupropion HCl (Wellbutrin Xl -) 150 mg PO DAILY [facility] Last Admin: 02/04/19 09:09 Dose: 150 mg Ergocalciferol (Drisdol -) 50,000 unit PO Foster@1000 [facility] Furosemide (Lasix -) 60 mg PO BIDLASIX [facility] Last Admin: 02/04/19 06:26 Dose: 60 mg Gabapentin (Neurontin -) 300 mg PO TID [facility] Last Admin: 02/04/19 06:26 Dose: 300 mg Hydroxyzine Pamoate (Vistaril -) 50 mg PO DAILY [facility] Last Admin: 02/04/19 09:13 Dose: Not Given Metronidazole (Flagyl 500mg Premixed Ivpb -) 500 mg in 100 mls @ 100 mls/hr IVPB Q8H-IV [facility] Last Admin: 02/04/19 09:09 Dose: 100 mls/hr Vancomycin HCl (Vancomycin (Pre-Docked)) 1,000 mg in 250 mls @ 166.667 mls/hr IVPB Q12H [facility]; Protocol Last Admin: 02/04/19 12:25 Dose: 166.667 mls/hr Aztreonam 2 gm/ Dextrose 100 mls @ 100 mls/hr IVPB Q8H-IV [facility]; Protocol Last Admin: 02/04/19 09:10 Dose: 100 mls/hr Levalbuterol HCl (Xopenex) 0.31 mg IH Q8H PRN PRN Reason: ASTHMA Last Admin: 02/03/19 12:34 Dose: 0.31 mg Metoprolol Tartrate (Lopressor Injection -) 5 mg IVPUSH Q4H PRN PRN Reason: HYPERTENSION Last Admin: 02/03/19 06:00 Dose: 5 mg Metoprolol Tartrate (Lopressor -) 200 mg PO BID [facility] Last Admin: 02/04/19 09:12 Dose: Not Given Nystatin (Nystatin Oral Suspension -) 500,000 units PO Q6HPO [facility] Last Admin: 02/04/19 12:24 Dose: 500,000 units Oxycodone HCl (Roxicodone -) 10 mg PO Q6H PRN PRN Reason: PAIN LEVEL 6-10 Last Admin: 02/04/19 09:10 Dose: 10 mg Prednisone (Deltasone -) 30 mg PO DAILY [facility] Sitagliptin Phosphate (Januvia -) 50 mg PO DAILY [facility] Last Admin: 02/04/19 09:10 Dose: 50 mg Verapamil HCl (Calan -) 80 mg PO TID [facility] Last Admin: 02/04/19 06:25 Dose: 80 mg - Objective Vital Signs: Vital Signs Temperature 98.2 F 02/04/19 11:14 Pulse Rate 81 02/04/19 11:14 Respiratory Rate 13 02/04/19 11:14 Blood Pressure 144/127 H 02/04/19 11:14 O2 Sat by Pulse Oximetry (%) 97 02/04/19 09:00 Constitutional: Yes: No Distress, Calm Eyes: Yes: Conjunctiva Clear, EOM Intact HENT: Yes: Normocephalic Neck: Yes: Trachea Midline Cardiovascular: Yes: Pulse Irregular Respiratory: Yes: Rhonchi Gastrointestinal: Yes: Normal Bowel Sounds, Soft Musculoskeletal: Yes: WNL Extremities: Yes: WNL Edema: Yes Edema: LLE: 1+, RLE: 1+ Labs: CBC, BMP 02/04/19 05:30 02/04/19 05:30 INR, PTT INR 1.30 (0.83-1.09) H 01/31/19 13:49 Assessment/Plan 58-year-old woman with a PMHx of HTN, persistent atrial fibrillation on Eliquis , DM, chronic diastolic CHF, COPD, CKD, chronic LE swelling readmitted 2018 one day after she left AMA because she has no health aid arranged. The patient was recently admitted with rapid afib with very difficult VR control , JOSEPH on CKD and diastolic CHF. She refused recommended cardioversion at that time. She is now considering to cardioversion. More sob now CXR shows pneumonia. In ICU, clinically improving. 1) Persistent atrial fibrillation with difficult VR control. -discussed with pt that there is a low but possible risk of thromboembolic event if she has a intracardiac thrombus present and if she converts to nsr on amiodarone, however as she has been on AC with eliquis for a few weeks now this risk should be minimal -Continue metoprolol tartrate 200 mg BID, verapamil 80 mg TID -additionally she has poor dentition with multiple teeth missing and pt reports current loose teeth. -there are no plans for ERMELINDA or DCCV at this time. -Continue Eliquis 5 mg BID. -Continue tele. 2) Chronic diastolic CHF: Stable, no respiratory distress. But she still has leg edema and elevated BNP. -Continue IV Lasix 40 mg BID. 3) Respiratory distress -continue abx per ID and treatment per pulmonar.
--- NOTE | 2019-02-04 12:48 | EKG ---
Test Reason : Blood Pressure : / mmHG Vent. Rate : 057 BPM Atrial Rate : 312 BPM P-R Int : 000 ms QRS Dur : 116 ms QT Int : 452 ms P-R-T Axes : 000 -44 162 degrees QTc Int : 439 ms ATRIAL FIBRILLATION WITH SLOW VENTRICULAR RESPONSE WITH A COMPETING JUNCTIONAL PACEMAKER LEFT AXIS DEVIATION LEFT VENTRICULAR HYPERTROPHY WITH QRS WIDENING ABNORMAL ECG WHEN COMPARED WITH ECG OF 01-FEB-2019 10:37, VENT. RATE HAS DECREASED BY 50 BPM T WAVE INVERSION NOW EVIDENT IN ANTERIOR LEADS Confirmed by LETY ESTEBAN MD ([id number]) on 02/04/2019 12:47:53 PM Referred By: EBER MCCULLOUGH DR Confirmed By:LETY ESTEBAN MD
[2019-02-04] MEDS: FUROSEMIDE 40 MG/4 ML INJECTABLE VIAL IVPUSH SCH (13:35)
--- NOTE | 2019-02-04 13:52 | PN ---
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, Physician History of Present Illness: Pt seen and examined at bedside. She is awake and alert. She is out of bed to chair. She feels breathing is better today but complains of edema. - Current Medication List Current Medications: Active Medications Acetaminophen (Tylenol -) 325 mg PO Q8H PRN PRN Reason: PAIN LEVEL 6-10 Last Admin: 02/03/19 14:15 Dose: 325 mg Acetaminophen (Tylenol -) 650 mg PO Q6H PRN PRN Reason: PAIN LEVEL 6-10 Albuterol/Ipratropium (Duoneb -) 1 amp NEB RTID [facility] Amiodarone HCl (Cordarone -) 400 mg PO TID [facility] Last Admin: 02/04/19 13:20 Dose: 400 mg Apixaban (Eliquis -) 5 mg PO BID [facility] Last Admin: 02/04/19 09:10 Dose: 5 mg Budesonide/Formoterol Fumarate (Symbicort 80/4.5mcg -) 2 puff IH BID [facility] Last Admin: 02/04/19 09:13 Dose: 2 puff Bupropion HCl (Wellbutrin Xl -) 150 mg PO DAILY [facility] Last Admin: 02/04/19 09:09 Dose: 150 mg Ergocalciferol (Drisdol -) 50,000 unit PO Foster@1000 [facility] Furosemide (Lasix Injection -) 60 mg IVPUSH BIDLASIX [facility] Last Admin: 02/04/19 13:35 Dose: Not Given Gabapentin (Neurontin -) 300 mg PO TID [facility] Last Admin: 02/04/19 13:20 Dose: 300 mg Hydroxyzine Pamoate (Vistaril -) 50 mg PO DAILY [facility] Last Admin: 02/04/19 09:13 Dose: Not Given Metronidazole (Flagyl 500mg Premixed Ivpb -) 500 mg in 100 mls @ 100 mls/hr IVPB Q8H-IV [facility] Last Admin: 02/04/19 09:09 Dose: 100 mls/hr Vancomycin HCl (Vancomycin (Pre-Docked)) 1,000 mg in 250 mls @ 166.667 mls/hr IVPB Q12H [facility]; Protocol Last Admin: 02/04/19 12:25 Dose: 166.667 mls/hr Aztreonam 2 gm/ Dextrose 100 mls @ 100 mls/hr IVPB Q8H-IV [facility]; Protocol Last Admin: 02/04/19 09:10 Dose: 100 mls/hr Levalbuterol HCl (Xopenex) 0.31 mg IH Q8H PRN PRN Reason: ASTHMA Last Admin: 02/03/19 12:34 Dose: 0.31 mg Metoprolol Tartrate (Lopressor Injection -) 5 mg IVPUSH Q4H PRN PRN Reason: HYPERTENSION Last Admin: 02/03/19 06:00 Dose: 5 mg Metoprolol Tartrate (Lopressor -) 200 mg PO BID [facility] Last Admin: 02/04/19 09:12 Dose: Not Given Nystatin (Nystatin Oral Suspension -) 500,000 units PO Q6HPO [facility] Last Admin: 02/04/19 12:24 Dose: 500,000 units Oxycodone HCl (Roxicodone -) 10 mg PO Q6H PRN PRN Reason: PAIN LEVEL 6-10 Last Admin: 02/04/19 09:10 Dose: 10 mg Prednisone (Deltasone -) 30 mg PO DAILY [facility] Sitagliptin Phosphate (Januvia -) 50 mg PO DAILY [facility] Last Admin: 02/04/19 09:10 Dose: 50 mg Verapamil HCl (Calan -) 80 mg PO TID [facility] Last Admin: 02/04/19 13:21 Dose: 80 mg - Objective Vital Signs: Vital Signs Temperature 98.2 F 02/04/19 09:00 Pulse Rate 81 02/04/19 09:00 Respiratory Rate 13 02/04/19 09:00 Blood Pressure 144/127 H 02/04/19 09:00 O2 Sat by Pulse Oximetry (%) 97 02/04/19 09:00 Constitutional: Yes: Calm Eyes: Yes: Conjunctiva Clear HENT: Yes: Atraumatic Neck: Yes: Supple Cardiovascular: Yes: S1, S2 Respiratory: Yes: On Nasal O2 Gastrointestinal: Yes: Soft Genitourinary: Yes: WNL Musculoskeletal: Yes: WNL Edema: Yes Edema: LLE: 2+, RLE: 2+ Neurological: Yes: Oriented Psychiatric: Yes: Oriented Labs: CBC, BMP 02/04/19 05:30 02/04/19 05:30 INR, PTT INR 1.30 (0.83-1.09) H 01/31/19 13:49 Problem List - Problems (1) CHF exacerbation Code(s): I50.9 - HEART FAILURE, UNSPECIFIED (2) CKD (chronic kidney disease) Code(s): N18.9 - CHRONIC KIDNEY DISEASE, UNSPECIFIED (3) Hypertension Code(s): I10 - ESSENTIAL (PRIMARY) HYPERTENSION Assessment/Plan Current Medications Generic Name Dose Route Start Last Admin Trade Name Freq PRN Reason Stop Dose Admin Acetaminophen 325 mg 01/31/19 22:39 02/03/19 14:15 Tylenol - PO 325 mg Q8H PRN Administration PAIN LEVEL 6-10 Acetaminophen 650 mg 02/04/19 08:20 Tylenol - PO Q6H PRN PAIN LEVEL 6-10 Albuterol/Ipratropium 1 amp 02/04/19 09:00 Duoneb - NEB RTID [facility] Amiodarone HCl 400 mg 02/02/19 11:00 02/04/19 13:20 Cordarone - PO 400 mg TID [facility] Administration Apixaban 5 mg 01/31/19 22:00 02/04/19 09:10 Eliquis - PO 5 mg BID [facility] Administration Budesonide/Formoterol Fumarate 2 puff 01/31/19 22:00 02/04/19 09:13 Symbicort 80/4.5mcg - IH 2 puff BID [facility] Administration Bupropion HCl 150 mg 02/01/19 10:00 02/04/19 09:09 Wellbutrin Xl - PO 150 mg DAILY [facility] Administration Ergocalciferol 50,000 unit 02/07/19 10:00 Drisdol - PO Foster@1000 [facility] Furosemide 60 mg 02/04/19 14:00 02/04/19 13:35 Lasix Injection - IVPUSH Not Given BIDLASIX [facility] Gabapentin 300 mg 01/31/19 22:00 02/04/19 13:20 Neurontin - PO 300 mg TID [facility] Administration Hydroxyzine Pamoate 50 mg 02/01/19 10:00 02/04/19 09:13 Vistaril - PO Not Given DAILY [facility] Metronidazole 500 mg in 100 mls @ 100 mls/hr 02/03/19 13:15 02/04/19 09:09 Flagyl 500mg Premixed Ivpb - IVPB 100 mls/hr Q8H-IV [facility] Administration Vancomycin HCl 1,000 mg in 250 mls @ 166.667 mls/hr 02/03/19 13:15 02/04/19 12:25 Vancomycin (Pre-Docked) IVPB 166.667 mls/hr Q12H [facility] Administration Protocol Aztreonam 2 gm/ Dextrose 100 mls @ 100 mls/hr 02/03/19 15:00 02/04/19 09:10 IVPB 100 mls/hr Q8H-IV [facility] Administration Protocol Levalbuterol HCl 0.31 mg 02/02/19 10:51 02/03/19 12:34 Xopenex IH 0.31 mg Q8H PRN Administration ASTHMA Metoprolol Tartrate 5 mg 01/31/19 18:53 02/03/19 06:00 Lopressor Injection - IVPUSH 5 mg Q4H PRN Administration HYPERTENSION Metoprolol Tartrate 200 mg 02/01/19 22:00 02/04/19 09:12 Lopressor - PO Not Given BID [facility] Nystatin 500,000 units 02/01/19 12:00 02/04/19 12:24 Nystatin Oral Suspension - PO 500,000 units Q6HPO [facility] Administration Oxycodone HCl 10 mg 02/04/19 08:20 02/04/19 09:10 Roxicodone - PO 10 mg Q6H PRN Administration PAIN LEVEL 6-10 Prednisone 30 mg 02/05/19 10:00 Deltasone - PO DAILY [facility] Sitagliptin Phosphate 50 mg 02/01/19 10:00 02/04/19 09:10 Januvia - PO 50 mg DAILY [facility] Administration Verapamil HCl 80 mg 01/31/19 22:00 02/04/19 13:21 Calan - PO 80 mg TID [facility] Administration Impression 1. CKD 2. CHF 3. a-fib 4. lower ext edema 5. COPD 6. active smoker Plan - cont lasix - replace potassium - cardio input appreciated - discussed with ICU team - monitor volume status - rate control - avoid nephrotoxins - ua neg for blood or protein
--- NOTE | 2019-02-04 14:15 | PN ---
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 (short form) - Note 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: breathing is much improved +nonproductive cough less SOB tachycardia is improved Vital Signs Period Temp Pulse Resp BP Sys/Salgado Pulse Ox Last 24 Hr 98.2 F-98.4 F 60-83 13-22 139-174/90-127 91-100 cor-rrr lungs decreased bs at bases abd soft,nt ext +edema CBC, BMP 02/04/19 05:30 02/04/19 05:30 Microbiology 02/03/19 13:15 Blood - Peripheral Venous Blood Culture - Preliminary NO GROWTH OBTAINED AFTER 24 HOURS, INCUBATION TO CONTINUE FOR 4 DAYS. 02/03/19 13:20 Blood - Peripheral Venous Blood Culture - Preliminary NO GROWTH OBTAINED AFTER 24 HOURS, INCUBATION TO CONTINUE FOR 4 DAYS. 02/03/19 13:50 Urine For Antigen Detection Legionella Antigen - Final 02/03/19 13:50 Urine For Antigen Detection Streptococcus pneumoniae Antigen (M - Final Current Medications Acetaminophen (Tylenol -) 325 mg PO Q8H PRN PRN Reason: PAIN LEVEL 6-10 Last Admin: 02/03/19 14:15 Dose: 325 mg Acetaminophen (Tylenol -) 650 mg PO Q6H PRN PRN Reason: PAIN LEVEL 6-10 Albuterol/Ipratropium (Duoneb -) 1 amp NEB RTID [facility] Amiodarone HCl (Cordarone -) 400 mg PO TID [facility] [place] Last Admin: 02/04/19 13:20 Dose: 400 mg Apixaban (Eliquis -) 5 mg PO BID [facility] [place] Last Admin: 02/04/19 09:10 Dose: 5 mg Budesonide/Formoterol Fumarate (Symbicort 80/4.5mcg -) 2 puff IH BID [facility] [place] Last Admin: 02/04/19 09:13 Dose: 2 puff Bupropion HCl (Wellbutrin Xl -) 150 mg PO DAILY [facility] [place] Last Admin: 02/04/19 09:09 Dose: 150 mg Ergocalciferol (Drisdol -) 50,000 unit PO Foster@1000 [facility] [place] Furosemide (Lasix Injection -) 60 mg IVPUSH BIDLASIX [facility] [place] Last Admin: 02/04/19 13:35 Dose: Not Given Gabapentin (Neurontin -) 300 mg PO TID [facility] [place] Last Admin: 02/04/19 13:20 Dose: 300 mg Hydroxyzine Pamoate (Vistaril -) 50 mg PO DAILY [facility] [place] Last Admin: 02/04/19 09:13 Dose: Not Given Metronidazole (Flagyl 500mg Premixed Ivpb -) 500 mg in 100 mls @ 100 mls/hr IVPB Q8H-IV [facility] Last Admin: 02/04/19 09:09 Dose: 100 mls/hr Vancomycin HCl (Vancomycin (Pre-Docked)) 1,000 mg in 250 mls @ 166.667 mls/hr IVPB Q12H [facility]; Protocol Last Admin: 02/04/19 12:25 Dose: 166.667 mls/hr Aztreonam 2 gm/ Dextrose 100 mls @ 100 mls/hr IVPB Q8H-IV [facility]; Protocol Last Admin: 02/04/19 09:10 Dose: 100 mls/hr Levalbuterol HCl (Xopenex) 0.31 mg IH Q8H PRN PRN Reason: ASTHMA Last Admin: 02/03/19 12:34 Dose: 0.31 mg Metoprolol Tartrate (Lopressor Injection -) 5 mg IVPUSH Q4H PRN PRN Reason: HYPERTENSION Last Admin: 02/03/19 06:00 Dose: 5 mg Metoprolol Tartrate (Lopressor -) 200 mg PO BID [facility] [place] Last Admin: 02/04/19 09:12 Dose: Not Given Nystatin (Nystatin Oral Suspension -) 500,000 units PO Q6HPO [facility] [place] Last Admin: 02/04/19 12:24 Dose: 500,000 units Oxycodone HCl (Roxicodone -) 10 mg PO Q6H PRN PRN Reason: PAIN LEVEL 6-10 Last Admin: 02/04/19 09:10 Dose: 10 mg Prednisone (Deltasone -) 30 mg PO DAILY [facility] [place] Sitagliptin Phosphate (Januvia -) 50 mg PO DAILY [facility] Last Admin: 02/04/19 09:10 Dose: 50 mg Verapamil HCl (Calan -) 80 mg PO TID [facility] [place] Last Admin: 02/04/19 13:21 Dose: 80 mg cxray unchanged right sided infiltrates a/p right lung pneumonia chf afib penicillin allergy stephanie cr 1.5 continue vancomycin /azactam/flagyl cover for HAP check vancomycin trough before next dose check vancomycin trough diuresis per cardiology Problem List - Problems (1) Acute and chronic respiratory failure Code(s): J96.20 - ACUTE AND CHR RESP FAILURE, UNSP W HYPOXIA OR HYPERCAPNIA (2) Atrial fibrillation with rapid ventricular response Code(s): I48.91 - UNSPECIFIED ATRIAL FIBRILLATION (3) Leg edema Code(s): R60.0 - LOCALIZED EDEMA (4) Poor dentition Code(s): K08.9 - DISORDER OF TEETH AND SUPPORTING STRUCTURES, UNSPECIFIED (5) Penicillin allergy Code(s): Z88.0 - ALLERGY STATUS TO PENICILLIN
[2019-02-04] MEDS: ACETAMINOPHEN 325 MG TABLET (FP) PO PRN (15:20)
[2019-02-04] MEDS ORDERED: INSULIN (NOVOLOG) ASPART 100 UNITS/ML 10ML VIAL SQ ONE (18:17)
[2019-02-04] MEDS ORDERED: LEVALBUTEROL HCL 0.31 MG/3 ML VIAL.NEB IH PRN (21:10)
[2019-02-04] MEDS ORDERED: METOPROLOL TARTRATE 5 MG/5 ML VIAL IVPUSH PRN (21:10)
[2019-02-04] MEDS: INSULIN SLIDING SCALE (NOVOLOG) 1 VIAL SQ SCH (21:53)
[2019-02-05] MEDS: VANCOMYCIN 1 GRAM (PRE-DOCKED) 1,000 MG/250 ML BAG IVPB SCH ×2 (00:59→13:10)
[2019-02-05] MEDS: NYSTATIN 500,000 UNITS/5 ML SUSPENSION PO SCH ×4 (01:00→17:03)
[2019-02-05] MEDS: AZTREONAM 2 GM in DEXTROSE 5%-WATER 100 ML IVPB SCH ×3 (03:00→22:41)
[2019-02-05] MEDS ORDERED: PT OWN MED DRAWER 7, Y5N ONE ×4 (05:54→20:49)
[2019-02-05] MEDS: oxyCODONE HCL 5 MG TABLET PO PRN ×3 (06:36→22:39)
[2019-02-05] MEDS: sitaGLIPtin PHOSPHATE 50 MG TABLET PO SCH (06:37)
[2019-02-05] MEDS: AMIODARONE HCL 200 MG TABLET (FP) PO SCH ×3 (06:37→22:40)
[2019-02-05] MEDS: VERAPAMIL HCL 80 MG TABLET PO SCH ×3 (06:37→22:41)
[2019-02-05] MEDS: GABAPENTIN 300 MG CAPSULE (FP) PO SCH ×3 (06:37→22:41)
[2019-02-05] MEDS: INSULIN SLIDING SCALE (NOVOLOG) 1 VIAL SQ SCH ×4 (06:38→22:38)
[2019-02-05] MEDS: FUROSEMIDE 40 MG/4 ML INJECTABLE VIAL IVPUSH SCH ×2 (06:38→13:12)
[2019-02-05 07:59] LABS: BASO % 0.2 % (0-2.0); EOS % 0.1 % (0-4.5); HEMATOCRIT 41.2 % (32.4-45.2); HEMOGLOBIN 12.9 GM/dL (10.7-15.3); LYMPH % 7.4 % (8-40); MCH 29.3 pg (25.7-33.7); MCHC 31.3 g/dl (32.0-36.0); MEAN CELL VOLUME 93.5 fl (80-96); MEAN PLT VOLUME 11.7 fl (7.5-11.1); MONO % 9.3 % (3.8-10.2); PLATELET COUNT 104 K/MM3 (134-434); RBC 4.41 M/mm3 (3.60-5.2); RDW 17.8 % (11.6-15.6); WHITE BLOOD COUNT 10.9 K/mm3 (4.0-10.0)
[2019-02-05 08:44] LABS: CALCIUM 8.6 mg/dL (8.5-10.1); CREATININE 1.6 mg/dL (0.55-1.3); MAGNESIUM 2.6 mg/dL (1.8-2.4); PHOSPHOROUS 3.7 mg/dL (2.5-4.9); POTASSIUM 3.7 mmol/L (3.5-5.1)
[2019-02-05] MEDS ORDERED: predniSONE 10 MG TABLET (UD) PO SCH ×2 (10:00)
[2019-02-05] MEDS: METOPROLOL TARTRATE 50 MG TABLET (FP) PO SCH ×2 (10:07→22:40)
[2019-02-05] MEDS: APIXABAN 5 MG TABLET PO SCH ×2 (10:08→22:41)
[2019-02-05] MEDS: BUDESONIDE/FORMETEROL FUMARATE 80/4.5 mcg INHALER IH SCH ×2 (10:09→22:42)
[2019-02-05] MEDS: hydrOXYzine PAMOATE 50 MG CAPSULE (FP) PO SCH (10:10)
--- NOTE | 2019-02-05 11:05 | PN ---
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, Physician History of Present Illness: Pt seen and examined at bedside. She is awake and alert. She denies shortness of breath. She feels that her edema is starting to improve. - Current Medication List Current Medications: Active Medications Acetaminophen (Tylenol -) 650 mg PO Q6H PRN PRN Reason: PAIN LEVEL 6-10 Amiodarone HCl (Cordarone -) 400 mg PO TID [facility] Last Admin: 02/05/19 06:37 Dose: 400 mg Apixaban (Eliquis -) 5 mg PO BID [facility] Last Admin: 02/05/19 10:08 Dose: 5 mg Budesonide/Formoterol Fumarate (Symbicort 80/4.5mcg -) 2 puff IH BID [facility] Last Admin: 02/05/19 10:09 Dose: 2 puff Bupropion HCl (Wellbutrin Xl -) 150 mg PO DAILY [facility] Last Admin: 02/05/19 10:08 Dose: 150 mg Ergocalciferol (Drisdol -) 50,000 unit PO Foster@1000 [facility] Furosemide (Lasix Injection -) 60 mg IVPUSH BIDLASIX [facility] Last Admin: 02/05/19 06:38 Dose: 60 mg Gabapentin (Neurontin -) 300 mg PO TID [facility] Last Admin: 02/05/19 06:37 Dose: 300 mg Hydroxyzine Pamoate (Vistaril -) 50 mg PO DAILY [facility] Last Admin: 02/05/19 10:10 Dose: 50 mg Aztreonam 2 gm/ Dextrose 100 mls @ 100 mls/hr IVPB Q8H-IV [facility]; Protocol Last Admin: 02/05/19 10:08 Dose: 100 mls/hr Metronidazole (Flagyl 500mg Premixed Ivpb -) 500 mg in 100 mls @ 100 mls/hr IVPB Q8H-IV [facility] Last Admin: 02/05/19 10:08 Dose: 100 mls/hr Vancomycin HCl (Vancomycin (Pre-Docked)) 1,000 mg in 250 mls @ 166.667 mls/hr IVPB Q12H [facility]; Protocol Last Admin: 02/05/19 00:59 Dose: 166.667 mls/hr Insulin Aspart (Novolog Vial Sliding Scale -) 1 vial SQ ACHS [facility]; Protocol Last Admin: 02/05/19 06:38 Dose: Not Given Levalbuterol HCl (Xopenex) 0.31 mg IH Q8H PRN PRN Reason: ASTHMA Metoprolol Tartrate (Lopressor -) 200 mg PO BID [facility] Last Admin: 02/05/19 10:07 Dose: 200 mg Metoprolol Tartrate (Lopressor Injection -) 5 mg IVPUSH Q4H PRN PRN Reason: HYPERTENSION Nystatin (Nystatin Oral Suspension -) 500,000 units PO Q6HPO [facility] Last Admin: 02/05/19 06:38 Dose: 500,000 units Oxycodone HCl (Roxicodone -) 10 mg PO Q6H PRN PRN Reason: PAIN LEVEL 6-10 Last Admin: 02/05/19 06:36 Dose: 10 mg Prednisone (Deltasone -) 30 mg PO DAILY [facility] Last Admin: 02/05/19 10:07 Dose: 30 mg Sitagliptin Phosphate (Januvia -) 50 mg PO DAILY@0700 [facility] Last Admin: 02/05/19 06:37 Dose: 50 mg Verapamil HCl (Calan -) 80 mg PO TID [facility] Last Admin: 02/05/19 06:37 Dose: 80 mg - Objective Vital Signs: Vital Signs Temperature 98.5 F 02/05/19 09:00 Pulse Rate 71 02/05/19 09:00 Respiratory Rate 20 02/05/19 09:00 Blood Pressure 169/99 02/05/19 09:00 O2 Sat by Pulse Oximetry (%) 98 02/05/19 09:00 Constitutional: Yes: Calm Eyes: Yes: Conjunctiva Clear HENT: Yes: Atraumatic Neck: Yes: Supple Cardiovascular: Yes: S1, S2 Respiratory: Yes: CTA Bilaterally Gastrointestinal: Yes: WNL, Soft Genitourinary: Yes: WNL Musculoskeletal: Yes: WNL Edema: Yes Edema: LLE: 2+, RLE: 2+ Neurological: Yes: Oriented Psychiatric: Yes: Oriented Labs: CBC, BMP 02/05/19 06:23 02/05/19 06:23 INR, PTT INR 1.30 (0.83-1.09) H 01/31/19 13:49 Problem List - Problems (1) CHF exacerbation Code(s): I50.9 - HEART FAILURE, UNSPECIFIED (2) CKD (chronic kidney disease) Code(s): N18.9 - CHRONIC KIDNEY DISEASE, UNSPECIFIED (3) Hypertension Code(s): I10 - ESSENTIAL (PRIMARY) HYPERTENSION Assessment/Plan Current Medications Generic Name Dose Route Start Last Admin Trade Name Freq PRN Reason Stop Dose Admin Acetaminophen 650 mg 02/04/19 21:10 Tylenol - PO Q6H PRN PAIN LEVEL 6-10 Amiodarone HCl 400 mg 02/04/19 22:00 02/05/19 06:37 Cordarone - PO 400 mg TID [facility] Administration Apixaban 5 mg 02/04/19 22:00 02/05/19 10:08 Eliquis - PO 5 mg BID [facility] Administration Budesonide/Formoterol Fumarate 2 puff 02/04/19 22:00 02/05/19 10:09 Symbicort 80/4.5mcg - IH 2 puff BID [facility] Administration Bupropion HCl 150 mg 02/05/19 10:00 02/05/19 10:08 Wellbutrin Xl - PO 150 mg DAILY [facility] Administration Ergocalciferol 50,000 unit 02/07/19 10:00 Drisdol - PO Foster@1000 [facility] Furosemide 60 mg 02/04/19 14:00 02/05/19 06:38 Lasix Injection - IVPUSH 60 mg BIDLASIX [facility] Administration Gabapentin 300 mg 02/04/19 22:00 02/05/19 06:37 Neurontin - PO 300 mg TID [facility] Administration Hydroxyzine Pamoate 50 mg 02/05/19 10:00 02/05/19 10:10 Vistaril - PO 50 mg DAILY [facility] Administration Aztreonam 2 gm/ Dextrose 100 mls @ 100 mls/hr 02/05/19 02:00 02/05/19 10:08 IVPB 100 mls/hr Q8H-IV [facility] Administration Protocol Metronidazole 500 mg in 100 mls @ 100 mls/hr 02/05/19 02:00 02/05/19 10:08 Flagyl 500mg Premixed Ivpb - IVPB 100 mls/hr Q8H-IV [facility] Administration Vancomycin HCl 1,000 mg in 250 mls @ 166.667 mls/hr 02/05/19 01:15 02/05/19 00:59 Vancomycin (Pre-Docked) IVPB 166.667 mls/hr Q12H [facility] Administration Protocol Insulin Aspart 1 vial 02/04/19 22:00 02/05/19 06:38 Novolog Vial Sliding Scale - SQ Not Given ACHS [facility] Protocol Levalbuterol HCl 0.31 mg 02/04/19 21:10 Xopenex IH Q8H PRN ASTHMA Metoprolol Tartrate 200 mg 02/04/19 22:00 02/05/19 10:07 Lopressor - PO 200 mg BID [facility] Administration Metoprolol Tartrate 5 mg 02/04/19 21:10 Lopressor Injection - IVPUSH Q4H PRN HYPERTENSION Nystatin 500,000 units 02/05/19 00:00 02/05/19 06:38 Nystatin Oral Suspension - PO 500,000 units Q6HPO [facility] Administration Oxycodone HCl 10 mg 02/04/19 21:10 02/05/19 06:36 Roxicodone - PO 10 mg Q6H PRN Administration PAIN LEVEL 6-10 Prednisone 30 mg 02/05/19 10:00 02/05/19 10:07 Deltasone - PO 30 mg DAILY [facility] Administration Sitagliptin Phosphate 50 mg 02/05/19 07:00 02/05/19 06:37 Januvia - PO 50 mg DAILY@0700 [facility] Administration Verapamil HCl 80 mg 02/04/19 22:00 02/05/19 06:37 Calan - PO 80 mg TID [facility] Administration Impression 1. CKD 2. CHF 3. a-fib 4. lower ext edema 5. COPD 6. active smoker Plan - repeat labs in am - cont with lasix - volume status is improving - rate control, monitor on tele - cardi follow up - ua neg for blood or protein
--- NOTE | 2019-02-05 11:43 | PN ---
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, Physician History of Present Illness: PULMONARY ALERT,SITTING UP ON BED,COMFORTABLE,DYSPNEA IMPROVING - Current Medication List Current Medications: Active Medications Acetaminophen (Tylenol -) 650 mg PO Q6H PRN PRN Reason: PAIN LEVEL 6-10 Amiodarone HCl (Cordarone -) 400 mg PO TID [facility] Last Admin: 02/05/19 06:37 Dose: 400 mg Apixaban (Eliquis -) 5 mg PO BID [facility] Last Admin: 02/05/19 10:08 Dose: 5 mg Budesonide/Formoterol Fumarate (Symbicort 80/4.5mcg -) 2 puff IH BID [facility] Last Admin: 02/05/19 10:09 Dose: 2 puff Bupropion HCl (Wellbutrin Xl -) 150 mg PO DAILY [facility] Last Admin: 02/05/19 10:08 Dose: 150 mg Ergocalciferol (Drisdol -) 50,000 unit PO Foster@1000 [facility] Furosemide (Lasix Injection -) 60 mg IVPUSH BIDLASIX [facility] Last Admin: 02/05/19 06:38 Dose: 60 mg Gabapentin (Neurontin -) 300 mg PO TID [facility] Last Admin: 02/05/19 06:37 Dose: 300 mg Hydroxyzine Pamoate (Vistaril -) 50 mg PO DAILY [facility] Last Admin: 02/05/19 10:10 Dose: 50 mg Aztreonam 2 gm/ Dextrose 100 mls @ 100 mls/hr IVPB Q8H-IV [facility]; Protocol Last Admin: 02/05/19 10:08 Dose: 100 mls/hr Metronidazole (Flagyl 500mg Premixed Ivpb -) 500 mg in 100 mls @ 100 mls/hr IVPB Q8H-IV [facility] Last Admin: 02/05/19 10:08 Dose: 100 mls/hr Vancomycin HCl (Vancomycin (Pre-Docked)) 1,000 mg in 250 mls @ 166.667 mls/hr IVPB Q12H [facility]; Protocol Last Admin: 02/05/19 00:59 Dose: 166.667 mls/hr Insulin Aspart (Novolog Vial Sliding Scale -) 1 vial SQ ACHS [facility]; Protocol Last Admin: 02/05/19 06:38 Dose: Not Given Levalbuterol HCl (Xopenex) 0.31 mg IH Q8H PRN PRN Reason: ASTHMA Metoprolol Tartrate (Lopressor -) 200 mg PO BID [facility] Last Admin: 02/05/19 10:07 Dose: 200 mg Metoprolol Tartrate (Lopressor Injection -) 5 mg IVPUSH Q4H PRN PRN Reason: HYPERTENSION Nystatin (Nystatin Oral Suspension -) 500,000 units PO Q6HPO [facility] Last Admin: 02/05/19 06:38 Dose: 500,000 units Oxycodone HCl (Roxicodone -) 10 mg PO Q6H PRN PRN Reason: PAIN LEVEL 6-10 Last Admin: 02/05/19 06:36 Dose: 10 mg Prednisone (Deltasone -) 30 mg PO DAILY [facility] Last Admin: 02/05/19 10:07 Dose: 30 mg Sitagliptin Phosphate (Januvia -) 50 mg PO DAILY@0700 [facility] Last Admin: 02/05/19 06:37 Dose: 50 mg Verapamil HCl (Calan -) 80 mg PO TID [facility] Last Admin: 02/05/19 06:37 Dose: 80 mg - Objective Vital Signs: Vital Signs Temperature 98.5 F 02/05/19 09:00 Pulse Rate 71 02/05/19 09:00 Respiratory Rate 20 02/05/19 09:00 Blood Pressure 169/99 02/05/19 09:00 O2 Sat by Pulse Oximetry (%) 98 02/05/19 09:00 Constitutional: Yes: Well Nourished, Calm Eyes: Yes: WNL HENT: Yes: WNL Neck: Yes: WNL Cardiovascular: Yes: Pulse Irregular, S1, S2 Respiratory: Yes: Rales (FEW BIBASILAR CRACKLES) Gastrointestinal: Yes: Normal Bowel Sounds, Soft Extremities: Yes: WNL Edema: Yes (LESS EDEMA BILATERALLY) Labs: CBC, BMP 02/05/19 06:23 02/05/19 06:23 INR, PTT INR 1.30 (0.83-1.09) H 01/31/19 13:49 Problem List - Problems (1) Chronic respiratory failure with hypoxia and hypercapnia Code(s): J96.11 - CHRONIC RESPIRATORY FAILURE WITH HYPOXIA; J96.12 - CHRONIC RESPIRATORY FAILURE WITH HYPERCAPNIA (2) Atrial fibrillation with rapid ventricular response Code(s): I48.91 - UNSPECIFIED ATRIAL FIBRILLATION (3) Leg edema Code(s): R60.0 - LOCALIZED EDEMA (4) COPD (chronic obstructive pulmonary disease) Code(s): J44.9 - CHRONIC OBSTRUCTIVE PULMONARY DISEASE, UNSPECIFIED Qualifiers: COPD type: COPD with acute exacerbation Qualified Code(s): J44.1 - Chronic obstructive pulmonary disease with (acute) exacerbation (5) Cigarette nicotine dependence Code(s): F17.200 - NICOTINE DEPENDENCE, UNSPECIFIED, UNCOMPLICATED (6) Diabetes Code(s): E11.9 - TYPE 2 DIABETES MELLITUS WITHOUT COMPLICATIONS Qualifiers: Diabetes mellitus type: type 2 Assessment/Plan IMP AFIB WITH RVR COPD O2 DEPENDENT WITH CHRONIC HYPOXEMIC/HYPERCAPNEIC RESPIRATORY FAILURE DIASTOLIC HF CKD TOBACCO ABUSE LOWER EXTREMITY EDEMA DM BILATERAL INFILTRATES PLAN INHALED BRONCHODILATORS XOPENEX O2 RATE CONTROL PER CARDIOLOGY AMIODARONE LASIX SMOKING CESSATION COUNSELED MONITOR LYTES,RENAL FUNCTION ABX PER ID CHEST X-RAY IN AM DR ROLLE Problem List - Problems (1) Chronic respiratory failure with hypoxia and hypercapnia Code(s): J96.11 - CHRONIC RESPIRATORY FAILURE WITH HYPOXIA; J96.12 - CHRONIC RESPIRATORY FAILURE WITH HYPERCAPNIA (2) Atrial fibrillation with rapid ventricular response Code(s): I48.91 - UNSPECIFIED ATRIAL FIBRILLATION (3) Leg edema Code(s): R60.0 - LOCALIZED EDEMA (4) COPD (chronic obstructive pulmonary disease) Code(s): J44.9 - CHRONIC OBSTRUCTIVE PULMONARY DISEASE, UNSPECIFIED Qualifiers: COPD type: COPD with acute exacerbation Qualified Code(s): J44.1 - Chronic obstructive pulmonary disease with (acute) exacerbation (5) Cigarette nicotine dependence Code(s): F17.200 - NICOTINE DEPENDENCE, UNSPECIFIED, UNCOMPLICATED (6) Diabetes Code(s): E11.9 - TYPE 2 DIABETES MELLITUS WITHOUT COMPLICATIONS Qualifiers: Diabetes mellitus type: type 2
--- NOTE | 2019-02-05 13:23 | PN ---
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, Physician Chief Complaint: patient sitting eating food heart rate controlled leg edema improving - Current Medication List Current Medications: Active Medications Acetaminophen (Tylenol -) 650 mg PO Q6H PRN PRN Reason: PAIN LEVEL 6-10 Amiodarone HCl (Cordarone -) 400 mg PO TID [facility] Last Admin: 02/05/19 06:37 Dose: 400 mg Apixaban (Eliquis -) 5 mg PO BID [facility] Last Admin: 02/05/19 10:08 Dose: 5 mg Budesonide/Formoterol Fumarate (Symbicort 80/4.5mcg -) 2 puff IH BID [facility] Last Admin: 02/05/19 10:09 Dose: 2 puff Bupropion HCl (Wellbutrin Xl -) 150 mg PO DAILY [facility] Last Admin: 02/05/19 10:08 Dose: 150 mg Ergocalciferol (Drisdol -) 50,000 unit PO Foster@1000 JOLENE Furosemide (Lasix Injection -) 60 mg IVPUSH BIDLASIX [facility] Last Admin: 02/05/19 06:38 Dose: 60 mg Gabapentin (Neurontin -) 300 mg PO TID [facility] Last Admin: 02/05/19 06:37 Dose: 300 mg Hydroxyzine Pamoate (Vistaril -) 50 mg PO DAILY [facility] Last Admin: 02/05/19 10:10 Dose: 50 mg Aztreonam 2 gm/ Dextrose 100 mls @ 100 mls/hr IVPB Q8H-IV [facility]; Protocol Last Admin: 02/05/19 10:08 Dose: 100 mls/hr Metronidazole (Flagyl 500mg Premixed Ivpb -) 500 mg in 100 mls @ 100 mls/hr IVPB Q8H-IV [facility] Last Admin: 02/05/19 10:08 Dose: 100 mls/hr Vancomycin HCl (Vancomycin (Pre-Docked)) 1,000 mg in 250 mls @ 166.667 mls/hr IVPB Q12H [facility]; Protocol Last Admin: 02/05/19 00:59 Dose: 166.667 mls/hr Insulin Aspart (Novolog Vial Sliding Scale -) 1 vial SQ ACHS [facility]; Protocol Last Admin: 02/05/19 12:46 Dose: 4 units Levalbuterol HCl (Xopenex) 0.31 mg IH Q8H PRN PRN Reason: ASTHMA Metoprolol Tartrate (Lopressor -) 200 mg PO BID [facility] Last Admin: 02/05/19 10:07 Dose: 200 mg Metoprolol Tartrate (Lopressor Injection -) 5 mg IVPUSH Q4H PRN PRN Reason: HYPERTENSION Nystatin (Nystatin Oral Suspension -) 500,000 units PO Q6HPO [facility] Last Admin: 02/05/19 12:59 Dose: 500,000 units Oxycodone HCl (Roxicodone -) 10 mg PO Q6H PRN PRN Reason: PAIN LEVEL 6-10 Last Admin: 02/05/19 06:36 Dose: 10 mg Prednisone (Deltasone -) 30 mg PO DAILY [facility] Last Admin: 02/05/19 10:07 Dose: 30 mg Sitagliptin Phosphate (Januvia -) 50 mg PO DAILY@0700 [facility] Last Admin: 02/05/19 06:37 Dose: 50 mg Verapamil HCl (Calan -) 80 mg PO TID [facility] Last Admin: 02/05/19 06:37 Dose: 80 mg - Objective Vital Signs: Vital Signs Temperature 98.5 F 02/05/19 09:00 Pulse Rate 71 02/05/19 09:00 Respiratory Rate 20 02/05/19 09:00 Blood Pressure 169/99 02/05/19 09:00 O2 Sat by Pulse Oximetry (%) 98 02/05/19 09:00 Constitutional: Yes: Calm Cardiovascular: Yes: Pulse Irregular, S1, S2 Respiratory: Yes: CTA Bilaterally Gastrointestinal: Yes: Normal Bowel Sounds, Soft Edema: Yes (improving) Edema: LLE: 2+, RLE: 2+ Neurological: Yes: Alert, Oriented Labs: CBC, BMP 02/05/19 06:23 02/05/19 06:23 INR, PTT INR 1.30 (0.83-1.09) H 01/31/19 13:49 Problem List - Problems (1) Atrial fibrillation with rapid ventricular response Assessment/Plan: amiodarone 400mg TID eliquis bid no plan for cardioversion poor dentition vermapmil 80mg tid metoprolol 200mg bid Code(s): I48.91 - UNSPECIFIED ATRIAL FIBRILLATION (2) Leg edema Assessment/Plan: lasix 60mg bid iv monitor potassium Code(s): R60.0 - LOCALIZED EDEMA (3) CKD (chronic kidney disease) Assessment/Plan: lasix monior renal fucntion renal team folowing Code(s): N18.9 - CHRONIC KIDNEY DISEASE, UNSPECIFIED (4) Abnormal CT of the chest Assessment/Plan: seen by GERMAN pryor pcn allergy aztreonam and flagy Code(s): R93.89 - ABNORMAL FINDINGS ON DX IMAGING OF OTH BODY STRUCTURES (5) Thrush Assessment/Plan: nystatin Code(s): B37.0 - CANDIDAL STOMATITIS (6) Poor dentition Assessment/Plan: dental eval Code(s): K08.9 - DISORDER OF TEETH AND SUPPORTING STRUCTURES, UNSPECIFIED
--- NOTE | 2019-02-05 13:48 | PN ---
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 (short form) - Note 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: breathing is much improved no complaints Vital Signs Period Temp Pulse Resp BP Sys/Salgado Pulse Ox Last 24 Hr 97.5 F-98.5 F 66-86 15-20 133-169/75-99 93-98 cor-rrr lungs decreased bs at bases abd soft,nt ext +edema CBC, BMP 02/05/19 06:23 02/05/19 06:23 Microbiology 02/03/19 13:15 Blood - Peripheral Venous Blood Culture - Preliminary NO GROWTH OBTAINED AFTER 48 HOURS, INCUBATION TO CONTINUE FOR 3 DAYS. 02/03/19 13:20 Blood - Peripheral Venous Blood Culture - Preliminary NO GROWTH OBTAINED AFTER 48 HOURS, INCUBATION TO CONTINUE FOR 3 DAYS. 02/03/19 13:50 Urine For Antigen Detection Legionella Antigen - Final 02/03/19 13:50 Urine For Antigen Detection Streptococcus pneumoniae Antigen (M - Final a/p right lung pneumonia chf afib penicillin allergy stephanie cr 1.6 today continue vancomycin /azactam/flagyl-antibiotic doses adjusted check vancomycin trough in am diuresis per cardiology Problem List - Problems (1) Acute and chronic respiratory failure Code(s): J96.20 - ACUTE AND CHR RESP FAILURE, UNSP W HYPOXIA OR HYPERCAPNIA (2) Atrial fibrillation with rapid ventricular response Code(s): I48.91 - UNSPECIFIED ATRIAL FIBRILLATION (3) Leg edema Code(s): R60.0 - LOCALIZED EDEMA (4) Poor dentition Code(s): K08.9 - DISORDER OF TEETH AND SUPPORTING STRUCTURES, UNSPECIFIED (5) Penicillin allergy Code(s): Z88.0 - ALLERGY STATUS TO PENICILLIN
--- NOTE | 2019-02-05 14:07 | PN ---
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, Physician Chief Complaint: less sob tele af controlled VR History of Present Illness: 58-year-old woman with a PMHx of HTN, persistent atrial fibrillation on Eliquis , DM, chronic diastolic CHF, COPD, CKD, chronic LE swelling readmitted 2018 one day after she left AMA because she has no health aid arranged. The patient was recently admitted with rapid afib with very difficult VR control , JOSEPH on CKD and diastolic CHF. She refused recommended cardioversion at that time. She is now considering to cardioversion. she was more sob 02/03/19 cxr now shows pneumonia, transferred to ICU. clinically improving, being treated for pneumonia. Afib is now under better control. - Current Medication List Current Medications: Active Medications Acetaminophen (Tylenol -) 650 mg PO Q6H PRN PRN Reason: PAIN LEVEL 6-10 Amiodarone HCl (Cordarone -) 400 mg PO TID [facility] Last Admin: 02/05/19 13:13 Dose: 400 mg Apixaban (Eliquis -) 5 mg PO BID [facility] Last Admin: 02/05/19 10:08 Dose: 5 mg Budesonide/Formoterol Fumarate (Symbicort 80/4.5mcg -) 2 puff IH BID [facility] Last Admin: 02/05/19 10:09 Dose: 2 puff Bupropion HCl (Wellbutrin Xl -) 150 mg PO DAILY [facility] Last Admin: 02/05/19 10:08 Dose: 150 mg Ergocalciferol (Drisdol -) 50,000 unit PO Foster@1000 JOLENE Furosemide (Lasix Injection -) 60 mg IVPUSH BIDLASIX [facility] Last Admin: 02/05/19 13:12 Dose: 60 mg Gabapentin (Neurontin -) 300 mg PO TID [facility] Last Admin: 02/05/19 13:13 Dose: 300 mg Hydroxyzine Pamoate (Vistaril -) 50 mg PO DAILY [facility] Last Admin: 02/05/19 10:10 Dose: 50 mg Metronidazole (Flagyl 500mg Premixed Ivpb -) 500 mg in 100 mls @ 100 mls/hr IVPB Q8H-IV [facility] Last Admin: 02/05/19 10:08 Dose: 100 mls/hr Vancomycin HCl (Vancomycin (Pre-Docked)) 1,000 mg in 250 mls @ 200 mls/hr IVPB Q24H [facility]; Protocol Aztreonam 2 gm/ Dextrose 100 mls @ 100 mls/hr IVPB BID [facility]; Protocol Insulin Aspart (Novolog Vial Sliding Scale -) 1 vial SQ ACHS [facility]; Protocol Last Admin: 02/05/19 12:46 Dose: 4 units Levalbuterol HCl (Xopenex) 0.31 mg IH Q8H PRN PRN Reason: ASTHMA Metoprolol Tartrate (Lopressor -) 200 mg PO BID [facility] Last Admin: 02/05/19 10:07 Dose: 200 mg Metoprolol Tartrate (Lopressor Injection -) 5 mg IVPUSH Q4H PRN PRN Reason: HYPERTENSION Nystatin (Nystatin Oral Suspension -) 500,000 units PO Q6HPO [facility] Last Admin: 02/05/19 12:59 Dose: 500,000 units Oxycodone HCl (Roxicodone -) 10 mg PO Q6H PRN PRN Reason: PAIN LEVEL 6-10 Last Admin: 02/05/19 06:36 Dose: 10 mg Prednisone (Deltasone -) 30 mg PO DAILY [facility] Last Admin: 02/05/19 10:07 Dose: 30 mg Sitagliptin Phosphate (Januvia -) 50 mg PO DAILY@0700 [facility] Last Admin: 02/05/19 06:37 Dose: 50 mg Verapamil HCl (Calan -) 80 mg PO TID [facility] Last Admin: 02/05/19 13:13 Dose: 80 mg - Objective Vital Signs: Vital Signs Temperature 98.5 F 02/05/19 09:00 Pulse Rate 71 02/05/19 09:00 Respiratory Rate 20 02/05/19 09:00 Blood Pressure 169/99 02/05/19 09:00 O2 Sat by Pulse Oximetry (%) 98 02/05/19 09:00 Constitutional: Yes: No Distress, Calm Eyes: Yes: Conjunctiva Clear, EOM Intact HENT: Yes: Normocephalic Neck: Yes: Trachea Midline, Tenderness Cardiovascular: Yes: Pulse Irregular Respiratory: Yes: Rhonchi Gastrointestinal: Yes: Normal Bowel Sounds, Soft Musculoskeletal: Yes: WNL Extremities: Yes: WNL Edema: No Peripheral Pulses WNL: Yes Labs: CBC, BMP 02/05/19 06:23 02/05/19 06:23 INR, PTT INR 1.30 (0.83-1.09) H 01/31/19 13:49 Assessment/Plan 58-year-old woman with a PMHx of HTN, persistent atrial fibrillation on Eliquis , DM, chronic diastolic CHF, COPD, CKD, chronic LE swelling readmitted 2018 one day after she left AMA because she has no health aid arranged. The patient was recently admitted with rapid afib with very difficult VR control , JOSEPH on CKD and diastolic CHF. She refused recommended cardioversion at that time. She is now considering to cardioversion. More sob now CXR shows pneumonia. In ICU, clinically improving. 1) Persistent atrial fibrillation with difficult VR control. -discussed with pt that there is a low but possible risk of thromboembolic event if she has a intracardiac thrombus present and if she converts to nsr on amiodarone, however as she has been on AC with eliquis for a few weeks now this risk should be minimal -Continue metoprolol tartrate 200 mg BID, verapamil 80 mg TID -additionally she has poor dentition with multiple teeth missing and pt reports current loose teeth. -there are no plans for ERMELINDA or DCCV at this time. -Continue Eliquis 5 mg BID. -can dc telemetry at this point. 2) Chronic diastolic CHF: Stable, no respiratory distress. But she still has leg edema and elevated BNP. -Continue IV Lasix 40 mg BID. -change to PO 40 bid tomorrow if continues to improve. 3) Respiratory distress -continue abx per ID and treatment per pulmonary.
[2019-02-06] MEDS: NYSTATIN 500,000 UNITS/5 ML SUSPENSION PO SCH ×4 (00:36→17:24)
[2019-02-06] MEDS: AMIODARONE HCL 200 MG TABLET (FP) PO SCH ×3 (06:20→21:40)
[2019-02-06] MEDS: oxyCODONE HCL 5 MG TABLET PO PRN ×3 (06:20→23:12)
[2019-02-06] MEDS: GABAPENTIN 300 MG CAPSULE (FP) PO SCH ×3 (06:21→21:40)
[2019-02-06] MEDS: VERAPAMIL HCL 80 MG TABLET PO SCH ×3 (06:22→21:41)
[2019-02-06] MEDS: FUROSEMIDE 40 MG/4 ML INJECTABLE VIAL IVPUSH SCH ×2 (06:22→14:01)
[2019-02-06] MEDS: sitaGLIPtin PHOSPHATE 50 MG TABLET PO SCH (06:22)
[2019-02-06] MEDS: INSULIN SLIDING SCALE (NOVOLOG) 1 VIAL SQ SCH ×4 (06:23→21:40)
[2019-02-06 07:25] LABS: BASO % 0.3 % (0-2.0); EOS % 0.3 % (0-4.5); HEMATOCRIT 38.8 % (32.4-45.2); HEMOGLOBIN 12.4 GM/dL (10.7-15.3); LYMPH % 11.6 % (8-40); MCH 29.6 pg (25.7-33.7); MCHC 31.9 g/dl (32.0-36.0); MEAN CELL VOLUME 92.7 fl (80-96); MEAN PLT VOLUME 11.9 fl (7.5-11.1); MONO % 10.5 % (3.8-10.2); NEUT % 77.3 % (42.8-82.8); PLATELET COUNT 105 K/MM3 (134-434); RBC 4.18 M/mm3 (3.60-5.2); RDW 17.5 % (11.6-15.6); WHITE BLOOD COUNT 10.2 K/mm3 (4.0-10.0)
[2019-02-06 08:35] LABS: ALBUMIN 3.4 g/dl (3.4-5.0); BILIRUBIN,TOTAL 1.2 mg/dL (0.2-1); CALCIUM 9.2 mg/dL (8.5-10.1); CREATININE 1.6 mg/dL (0.55-1.3); MAGNESIUM 2.5 mg/dL (1.8-2.4); POTASSIUM 4.3 mmol/L (3.5-5.1); TOT PROT 6.6 g/dl (6.4-8.2)
--- NOTE | 2019-02-06 09:10 | PN ---
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, Physician History of Present Illness: pulmonary alert,feeling better,less dyspneic,-cp - Current Medication List Current Medications: Active Medications Acetaminophen (Tylenol -) 650 mg PO Q6H PRN PRN Reason: PAIN LEVEL 6-10 Amiodarone HCl (Cordarone -) 400 mg PO TID [facility] Last Admin: 02/06/19 06:20 Dose: 400 mg Apixaban (Eliquis -) 5 mg PO BID [facility] Last Admin: 02/05/19 22:41 Dose: 5 mg Budesonide/Formoterol Fumarate (Symbicort 80/4.5mcg -) 2 puff IH BID [facility] Last Admin: 02/05/19 22:42 Dose: 2 puff Bupropion HCl (Wellbutrin Xl -) 150 mg PO DAILY [facility] Last Admin: 02/05/19 10:08 Dose: 150 mg Ergocalciferol (Drisdol -) 50,000 unit PO Foster@1000 JOLENE Furosemide (Lasix Injection -) 60 mg IVPUSH BIDLASIX [facility] Last Admin: 02/06/19 06:22 Dose: 60 mg Gabapentin (Neurontin -) 300 mg PO TID [facility] Last Admin: 02/06/19 06:21 Dose: 300 mg Hydroxyzine Pamoate (Vistaril -) 50 mg PO DAILY [facility] Last Admin: 02/05/19 10:10 Dose: 50 mg Metronidazole (Flagyl 500mg Premixed Ivpb -) 500 mg in 100 mls @ 100 mls/hr IVPB Q8H-IV [facility] Last Admin: 02/06/19 02:13 Dose: 100 mls/hr Vancomycin HCl (Vancomycin (Pre-Docked)) 1,000 mg in 250 mls @ 200 mls/hr IVPB Q24H [facility]; Protocol Aztreonam 2 gm/ Dextrose 100 mls @ 100 mls/hr IVPB BID [facility]; Protocol Last Admin: 02/05/19 22:41 Dose: 100 mls/hr Insulin Aspart (Novolog Vial Sliding Scale -) 1 vial SQ ACHS [facility]; Protocol Last Admin: 02/06/19 06:23 Dose: Not Given Levalbuterol HCl (Xopenex) 0.31 mg IH Q8H PRN PRN Reason: ASTHMA Last Admin: 02/05/19 21:29 Dose: 0.31 mg Metoprolol Tartrate (Lopressor -) 200 mg PO BID [facility] Last Admin: 02/05/19 22:40 Dose: 200 mg Metoprolol Tartrate (Lopressor Injection -) 5 mg IVPUSH Q4H PRN PRN Reason: HYPERTENSION Nystatin (Nystatin Oral Suspension -) 500,000 units PO Q6HPO [facility] Last Admin: 02/06/19 06:20 Dose: 500,000 units Oxycodone HCl (Roxicodone -) 10 mg PO Q6H PRN PRN Reason: PAIN LEVEL 6-10 Last Admin: 02/06/19 06:20 Dose: 10 mg Prednisone (Deltasone -) 30 mg PO DAILY [facility] Last Admin: 02/05/19 10:07 Dose: 30 mg Sitagliptin Phosphate (Januvia -) 50 mg PO DAILY@0700 [facility] Last Admin: 02/06/19 06:22 Dose: 50 mg Verapamil HCl (Calan -) 80 mg PO TID [facility] Last Admin: 02/06/19 06:22 Dose: 80 mg - Objective Vital Signs: Vital Signs Temperature 97.8 F 02/06/19 07:00 Pulse Rate 79 02/06/19 07:00 Respiratory Rate 20 02/06/19 07:00 Blood Pressure 152/101 H 02/06/19 07:00 O2 Sat by Pulse Oximetry (%) 98 02/05/19 22:00 Constitutional: Yes: Well Nourished, Calm Eyes: Yes: WNL HENT: Yes: WNL Neck: Yes: WNL Cardiovascular: Yes: Pulse Irregular, S1, S2 Respiratory: Yes: Rales (few bibasilar rales) Gastrointestinal: Yes: Normal Bowel Sounds, Soft Extremities: Yes: WNL Edema: Yes Labs: CBC, BMP 02/06/19 05:45 02/06/19 05:45 INR, PTT INR 1.30 (0.83-1.09) H 01/31/19 13:49 - ....Imaging Chest X-ray: Report Reviewed, Image Reviewed (improved congestion ,resolved RLL consolidation) Problem List - Problems (1) Chronic respiratory failure with hypoxia and hypercapnia Code(s): J96.11 - CHRONIC RESPIRATORY FAILURE WITH HYPOXIA; J96.12 - CHRONIC RESPIRATORY FAILURE WITH HYPERCAPNIA (2) Atrial fibrillation with rapid ventricular response Code(s): I48.91 - UNSPECIFIED ATRIAL FIBRILLATION (3) Leg edema Code(s): R60.0 - LOCALIZED EDEMA (4) COPD (chronic obstructive pulmonary disease) Code(s): J44.9 - CHRONIC OBSTRUCTIVE PULMONARY DISEASE, UNSPECIFIED Qualifiers: COPD type: COPD with acute exacerbation Qualified Code(s): J44.1 - Chronic obstructive pulmonary disease with (acute) exacerbation (5) Cigarette nicotine dependence Code(s): F17.200 - NICOTINE DEPENDENCE, UNSPECIFIED, UNCOMPLICATED (6) Diabetes Code(s): E11.9 - TYPE 2 DIABETES MELLITUS WITHOUT COMPLICATIONS Qualifiers: Diabetes mellitus type: type 2 Assessment/Plan IMP AFIB WITH RVR IMPROVED COPD O2 DEPENDENT WITH CHRONIC HYPOXEMIC/HYPERCAPNEIC RESPIRATORY FAILURE DIASTOLIC HF IMPROVING CKD TOBACCO ABUSE LOWER EXTREMITY EDEMA DM BILATERAL INFILTRATES PLAN INHALED BRONCHODILATORS XOPENEX O2 RATE CONTROL PER CARDIOLOGY AMIODARONE LASIX SMOKING CESSATION COUNSELED MONITOR LYTES,RENAL FUNCTION ABX PER ID DR ROLLE Problem List - Problems (1) Chronic respiratory failure with hypoxia and hypercapnia Code(s): J96.11 - CHRONIC RESPIRATORY FAILURE WITH HYPOXIA; J96.12 - CHRONIC RESPIRATORY FAILURE WITH HYPERCAPNIA (2) Atrial fibrillation with rapid ventricular response Code(s): I48.91 - UNSPECIFIED ATRIAL FIBRILLATION (3) Leg edema Code(s): R60.0 - LOCALIZED EDEMA (4) COPD (chronic obstructive pulmonary disease) Code(s): J44.9 - CHRONIC OBSTRUCTIVE PULMONARY DISEASE, UNSPECIFIED Qualifiers: COPD type: COPD with acute exacerbation Qualified Code(s): J44.1 - Chronic obstructive pulmonary disease with (acute) exacerbation (5) Cigarette nicotine dependence Code(s): F17.200 - NICOTINE DEPENDENCE, UNSPECIFIED, UNCOMPLICATED (6) Diabetes Code(s): E11.9 - TYPE 2 DIABETES MELLITUS WITHOUT COMPLICATIONS Qualifiers: Diabetes mellitus type: type 2
[2019-02-06] MEDS: AZTREONAM 2 GM in DEXTROSE 5%-WATER 100 ML IVPB SCH ×2 (09:30→21:54)
[2019-02-06] MEDS: hydrOXYzine PAMOATE 50 MG CAPSULE (FP) PO SCH (09:30)
[2019-02-06] MEDS: METOPROLOL TARTRATE 50 MG TABLET (FP) PO SCH ×2 (09:31→21:40)
[2019-02-06] MEDS: APIXABAN 5 MG TABLET PO SCH ×2 (09:31→21:40)
[2019-02-06] MEDS: BUDESONIDE/FORMETEROL FUMARATE 80/4.5 mcg INHALER IH SCH ×2 (09:34→21:44)
[2019-02-06] MEDS: predniSONE 20 MG TABLET (UD) PO SCH (10:23)
--- NOTE | 2019-02-06 11:20 | PN ---
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, Physician Chief Complaint: AWAKE AND ANXIOUS C/O SOB OFF 02 NC SATURATION DROPS TO 88% - Current Medication List Current Medications: Active Medications Acetaminophen (Tylenol -) 650 mg PO Q6H PRN PRN Reason: PAIN LEVEL 6-10 Amiodarone HCl (Cordarone -) 400 mg PO TID [facility] Last Admin: 02/06/19 06:20 Dose: 400 mg Apixaban (Eliquis -) 5 mg PO BID [facility] Last Admin: 02/06/19 09:31 Dose: 5 mg Budesonide/Formoterol Fumarate (Symbicort 80/4.5mcg -) 2 puff IH BID [facility] Last Admin: 02/06/19 09:34 Dose: 2 puff Bupropion HCl (Wellbutrin Xl -) 150 mg PO DAILY [facility] Last Admin: 02/06/19 09:30 Dose: 150 mg Ergocalciferol (Drisdol -) 50,000 unit PO Foster@1000 J[facility] Furosemide (Lasix Injection -) 60 mg IVPUSH BIDLASIX [facility] Last Admin: 02/06/19 06:22 Dose: 60 mg Gabapentin (Neurontin -) 300 mg PO TID [facility] Last Admin: 02/06/19 06:21 Dose: 300 mg Hydroxyzine Pamoate (Vistaril -) 50 mg PO DAILY [facility] Last Admin: 02/06/19 09:30 Dose: 50 mg Metronidazole (Flagyl 500mg Premixed Ivpb -) 500 mg in 100 mls @ 100 mls/hr IVPB Q8H-IV [facility] Last Admin: 02/06/19 09:30 Dose: 100 mls/hr Vancomycin HCl (Vancomycin (Pre-Docked)) 1,000 mg in 250 mls @ 200 mls/hr IVPB Q24H [facility]; Protocol Aztreonam 2 gm/ Dextrose 100 mls @ 100 mls/hr IVPB BID [facility]; Protocol Last Admin: 02/06/19 09:30 Dose: 100 mls/hr Insulin Aspart (Novolog Vial Sliding Scale -) 1 vial SQ ACHS [facility]; Protocol Last Admin: 02/06/19 06:23 Dose: Not Given Levalbuterol HCl (Xopenex) 0.31 mg IH Q8H PRN PRN Reason: ASTHMA Last Admin: 02/05/19 21:29 Dose: 0.31 mg Metoprolol Tartrate (Lopressor -) 200 mg PO BID [facility] Last Admin: 02/06/19 09:31 Dose: 200 mg Metoprolol Tartrate (Lopressor Injection -) 5 mg IVPUSH Q4H PRN PRN Reason: HYPERTENSION Nystatin (Nystatin Oral Suspension -) 500,000 units PO Q6HPO [facility] Last Admin: 02/06/19 06:20 Dose: 500,000 units Oxycodone HCl (Roxicodone -) 10 mg PO Q6H PRN PRN Reason: PAIN LEVEL 6-10 Last Admin: 02/06/19 06:20 Dose: 10 mg Prednisone (Deltasone -) 20 mg PO DAILY [facility] Sitagliptin Phosphate (Januvia -) 50 mg PO DAILY@0700 [facility] Last Admin: 02/06/19 06:22 Dose: 50 mg Verapamil HCl (Calan -) 80 mg PO TID [facility] Last Admin: 02/06/19 06:22 Dose: 80 mg - Objective Vital Signs: Vital Signs Temperature 98.1 F 02/06/19 10:00 Pulse Rate 74 02/06/19 10:00 Respiratory Rate 20 02/06/19 10:00 Blood Pressure 159/100 02/06/19 10:00 O2 Sat by Pulse Oximetry (%) 98 02/06/19 09:00 Constitutional: Yes: Mild Distress Eyes: Yes: WNL HENT: Yes: WNL Neck: Yes: WNL Cardiovascular: Yes: Tachycardia Respiratory: Yes: CTA Bilaterally, On Nasal O2 Gastrointestinal: Yes: WNL Genitourinary: Yes: WNL Musculoskeletal: Yes: Muscle Weakness Extremities: Yes: WNL Edema: No Integumentary: Yes: WNL Wound/Incision: Yes: Clean/Dry Neurological: Yes: WNL ...Motor Strength: WNL Psychiatric: Yes: Agitated Labs: CBC, BMP 02/06/19 05:45 02/06/19 05:45 INR, PTT INR 1.30 (0.83-1.09) H 01/31/19 13:49 Problem List - Problems (1) Abnormal CT of the chest Code(s): R93.89 - ABNORMAL FINDINGS ON DX IMAGING OF OT BODY STRUCTURES (2) Atrial fibrillation with rapid ventricular response Code(s): I48.91 - UNSPECIFIED ATRIAL FIBRILLATION (3) Chronic respiratory failure with hypoxia and hypercapnia Code(s): J96.11 - CHRONIC RESPIRATORY FAILURE WITH HYPOXIA; J96.12 - CHRONIC RESPIRATORY FAILURE WITH HYPERCAPNIA (4) Leg edema Code(s): R60.0 - LOCALIZED EDEMA (5) Acute and chronic respiratory failure Code(s): J96.20 - ACUTE AND CHR RESP FAILURE, UNSP W HYPOXIA OR HYPERCAPNIA (6) Acute on chronic diastolic (congestive) heart failure Code(s): I50.33 - ACUTE ON CHRONIC DIASTOLIC (CONGESTIVE) HEART FAILURE (7) Afib Code(s): I48.91 - UNSPECIFIED ATRIAL FIBRILLATION Qualifiers: Atrial fibrillation type: unspecified Qualified Code(s): I48.91 - Unspecified atrial fibrillation (8) Anxiety and depression Code(s): F41.9 - ANXIETY DISORDER, UNSPECIFIED; F32.9 - MAJOR DEPRESSIVE DISORDER, SINGLE EPISODE, UNSPECIFIED Assessment/Plan RESPIRATORY SUPPORT 02 NC INSTRUCTED PT NOT TO REMOVE IV ABX, NEBS, PREDNISONE TAPER OOB TO CHAIR RENAL AND CARDIO EVAL ON TELE WITH RVR TACHYCARDIA
--- NOTE | 2019-02-06 11:47 | PN ---
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 (short form) - Note 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: RENAL Pt is awake and alert appears comfortable Last Vital Signs Temp Pulse Resp BP Pulse Ox 98.1 F 74 20 159/100 98 02/06/19 10:00 02/06/19 10:00 02/06/19 10:00 02/06/19 10:00 02/06/19 09:00 lungs did not take deep breaths cvs s1s2 rr abd soft ext +3 edema, thin skin neuro a+o CBC, BMP 02/06/19 05:45 02/06/19 05:45 Current Medications Generic Name Dose Route Start Last Admin Trade Name Freq PRN Reason Stop Dose Admin Acetaminophen 650 mg 02/04/19 21:10 Tylenol - PO Q6H PRN PAIN LEVEL 6-10 Amiodarone HCl 400 mg 02/04/19 22:00 02/06/19 06:20 Cordarone - PO 400 mg TID [facility] Administration Apixaban 5 mg 02/04/19 22:00 02/06/19 09:31 Eliquis - PO 5 mg BID [facility] Administration Budesonide/Formoterol Fumarate 2 puff 02/04/19 22:00 02/06/19 09:34 Symbicort 80/4.5mcg - IH 2 puff BID [facility] Administration Bupropion HCl 150 mg 02/05/19 10:00 02/06/19 09:30 Wellbutrin Xl - PO 150 mg DAILY [facility] Administration Ergocalciferol 50,000 unit 02/07/19 10:00 Drisdol - PO Foster@1000 JOLENE Furosemide 60 mg 02/04/19 14:00 02/06/19 06:22 Lasix Injection - IVPUSH 60 mg BIDLASIX [facility] Administration Gabapentin 300 mg 02/04/19 22:00 02/06/19 06:21 Neurontin - PO 300 mg TID [facility] Administration Hydroxyzine Pamoate 50 mg 02/05/19 10:00 02/06/19 09:30 Vistaril - PO 50 mg DAILY [facility] Administration Metronidazole 500 mg in 100 mls @ 100 mls/hr 02/05/19 02:00 02/06/19 09:30 Flagyl 500mg Premixed Ivpb - IVPB 100 mls/hr Q8H-IV [facility] Administration Vancomycin HCl 1,000 mg in 250 mls @ 200 mls/hr 02/06/19 13:00 Vancomycin (Pre-Docked) IVPB Q24H [facility] Protocol Aztreonam 2 gm/ Dextrose 100 mls @ 100 mls/hr 02/05/19 22:00 02/06/19 09:30 IVPB 100 mls/hr BID [facility] Administration Protocol Insulin Aspart 1 vial 02/04/19 22:00 02/06/19 06:23 Novolog Vial Sliding Scale - SQ Not Given ACHS [facility] Protocol Levalbuterol HCl 0.31 mg 02/04/19 21:10 02/05/19 21:29 Xopenex IH 0.31 mg Q8H PRN Administration ASTHMA Metoprolol Tartrate 200 mg 02/04/19 22:00 02/06/19 09:31 Lopressor - PO 200 mg BID [facility] Administration Metoprolol Tartrate 5 mg 02/04/19 21:10 Lopressor Injection - IVPUSH Q4H PRN HYPERTENSION Nystatin 500,000 units 02/05/19 00:00 02/06/19 06:20 Nystatin Oral Suspension - PO 500,000 units Q6HPO JOLENE Administration Oxycodone HCl 10 mg 02/04/19 21:10 02/06/19 06:20 Roxicodone - PO 10 mg Q6H PRN Administration PAIN LEVEL 6-10 Prednisone 20 mg 02/06/19 10:00 Deltasone - PO DAILY [facility] Sitagliptin Phosphate 50 mg 02/05/19 07:00 02/06/19 06:22 Januvia - PO 50 mg DAILY@0700 JOLENE Administration Verapamil HCl 80 mg 02/04/19 22:00 02/06/19 06:22 Calan - PO 80 mg TID JOLENE Administration Impression 1. CKD- non proteinuric 2. CHF 3. a-fib 4. lower ext edema robably from hagan failure 5. COPD 6. active smoker Plan - repeat labs in am - cont with lasix - volume status is improving -add metolazone MV
[2019-02-06] MEDS: METOLAZONE 2.5 MG TABLET (FP) PO SCH (12:45)
[2019-02-06] MEDS ORDERED: VANCOMYCIN 1 GRAM (PRE-DOCKED) 1,000 MG/250 ML BAG IVPB SCH (13:00)
--- NOTE | 2019-02-06 14:05 | PN ---
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 (short form) - Note 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: breathing is much improved no complaints feels well Vital Signs Period Temp Pulse Resp BP Sys/Salgado Pulse Ox Last 24 Hr 97.5 F-98.1 F 74-89 20-20 146-159/77-101 98-98 cor-rrr lungs decresed bs at bases no wheezing abd soft,nt ext +edema CBC, BMP 02/06/19 05:45 02/06/19 05:45 Microbiology 02/03/19 13:15 Blood - Peripheral Venous Blood Culture - Preliminary NO GROWTH OBTAINED AFTER 72 HOURS, INCUBATION TO CONTINUE FOR 2 DAYS. 02/03/19 13:20 Blood - Peripheral Venous Blood Culture - Preliminary NO GROWTH OBTAINED AFTER 72 HOURS, INCUBATION TO CONTINUE FOR 2 DAYS. 02/03/19 13:50 Urine For Antigen Detection Legionella Antigen - Final 02/03/19 13:50 Urine For Antigen Detection Streptococcus pneumoniae Antigen (M - Final Laboratory Tests 02/06/19 06:00 Random Vancomycin 25.5 cxray improved a/p right lung pneumonia chf afib penicillin allergy stephanie cr 1.6 today hold vancomycin today resume in am continue azactam and flagyl diuresis per cardiology Problem List - Problems (1) Acute and chronic respiratory failure Code(s): J96.20 - ACUTE AND CHR RESP FAILURE, UNSP W HYPOXIA OR HYPERCAPNIA (2) Atrial fibrillation with rapid ventricular response Code(s): I48.91 - UNSPECIFIED ATRIAL FIBRILLATION (3) Leg edema Code(s): R60.0 - LOCALIZED EDEMA (4) Poor dentition Code(s): K08.9 - DISORDER OF TEETH AND SUPPORTING STRUCTURES, UNSPECIFIED (5) Penicillin allergy Code(s): Z88.0 - ALLERGY STATUS TO PENICILLIN
[2019-02-06] MEDS ORDERED: PT OWN MED DRAWER 7, Y5N ONE (21:46)
[2019-02-07] MEDS: NYSTATIN 500,000 UNITS/5 ML SUSPENSION PO SCH ×4 (00:12→17:10)
[2019-02-07] MEDS: GABAPENTIN 300 MG CAPSULE (FP) PO SCH ×3 (05:12→21:41)
[2019-02-07] MEDS: oxyCODONE HCL 5 MG TABLET PO PRN ×4 (05:12→23:59)
[2019-02-07] MEDS: ACETAMINOPHEN 325 MG TABLET (FP) PO PRN (05:12)
[2019-02-07] MEDS: AMIODARONE HCL 200 MG TABLET (FP) PO SCH ×3 (05:12→21:41)
[2019-02-07] MEDS: VERAPAMIL HCL 80 MG TABLET PO SCH ×3 (05:13→21:41)
[2019-02-07] MEDS: FUROSEMIDE 40 MG/4 ML INJECTABLE VIAL IVPUSH SCH ×2 (07:04→13:51)
[2019-02-07] MEDS: sitaGLIPtin PHOSPHATE 50 MG TABLET PO SCH (07:05)
[2019-02-07] MEDS: INSULIN SLIDING SCALE (NOVOLOG) 1 VIAL SQ SCH ×4 (07:05→21:41)
[2019-02-07] MEDS: AZTREONAM 2 GM in DEXTROSE 5%-WATER 100 ML IVPB SCH ×2 (09:37→21:41)
[2019-02-07] MEDS: METOPROLOL TARTRATE 50 MG TABLET (FP) PO SCH ×2 (09:38→21:40)
[2019-02-07] MEDS: predniSONE 20 MG TABLET (UD) PO SCH (09:38)
[2019-02-07] MEDS: APIXABAN 5 MG TABLET PO SCH ×2 (09:39→21:41)
[2019-02-07] MEDS: hydrOXYzine PAMOATE 50 MG CAPSULE (FP) PO SCH (09:40)
[2019-02-07] MEDS: BUDESONIDE/FORMETEROL FUMARATE 80/4.5 mcg INHALER IH SCH ×2 (09:40→21:42)
[2019-02-07] MEDS: METOLAZONE 2.5 MG TABLET (FP) PO SCH (09:41)
[2019-02-07] MEDS ORDERED: ERGOCALCIFEROL (VIT D2) 50,000 UNIT (1.25 MG) CAPSULE PO SCH ×2 (10:00)
--- NOTE | 2019-02-07 10:34 | PN ---
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 (short form) - Note 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: RENAL Pt is awake and alert appears comfortable denies complaints. Thinks her edema is better Last Vital Signs Temp Pulse Resp BP Pulse Ox 98.0 F 98 H 20 169/95 99 02/07/19 04:41 02/07/19 04:41 02/07/19 04:41 02/07/19 04:41 02/06/19 21:00 lungs did not take deep breaths cvs s1s2 rr abd soft ext +3 edema, thin skin neuro a+o CBC, BMP 02/06/19 05:45 02/06/19 05:45 Current Medications Generic Name Dose Route Start Last Admin Trade Name Freq PRN Reason Stop Dose Admin Acetaminophen 650 mg 02/04/19 21:10 02/07/19 05:12 Tylenol - PO 650 mg Q6H PRN Administration PAIN LEVEL 6-10 Amiodarone HCl 400 mg 02/04/19 22:00 02/07/19 05:12 Cordarone - PO 400 mg TID JOLENE Administration Apixaban 5 mg 02/04/19 22:00 02/07/19 09:39 Eliquis - PO 5 mg BID JOLENE Administration Budesonide/Formoterol Fumarate 2 puff 02/04/19 22:00 02/07/19 09:40 Symbicort 80/4.5mcg - IH 2 puff BID JOLENE Administration Bupropion HCl 150 mg 02/05/19 10:00 02/07/19 09:38 Wellbutrin Xl - PO 150 mg DAILY JOLENE Administration Ergocalciferol 50,000 unit 02/07/19 10:00 02/07/19 09:40 Drisdol - PO 50,000 unit Foster@1000 JOLENE Administration Furosemide 60 mg 02/04/19 14:00 02/07/19 07:04 Lasix Injection - IVPUSH 60 mg BIDLASIX JOLENE Administration Gabapentin 300 mg 02/04/19 22:00 02/07/19 05:12 Neurontin - PO 300 mg TID JOLENE Administration Hydroxyzine Pamoate 50 mg 02/05/19 10:00 02/07/19 09:40 Vistaril - PO 50 mg DAILY JOLENE Administration Metronidazole 500 mg in 100 mls @ 100 mls/hr 02/05/19 02:00 02/07/19 09:38 Flagyl 500mg Premixed Ivpb - IVPB 100 mls/hr Q8H-IV JOLENE Administration Aztreonam 2 gm/ Dextrose 100 mls @ 100 mls/hr 02/05/19 22:00 02/07/19 09:37 IVPB 100 mls/hr BID JOLENE Administration Protocol Vancomycin HCl 1,000 mg in 250 mls @ 166.667 mls/hr 02/07/19 13:00 Vancomycin (Pre-Docked) IVPB Q24H JOLENE Protocol Insulin Aspart 1 vial 02/04/19 22:00 02/07/19 07:05 Novolog Vial Sliding Scale - SQ Not Given ACHS JOLENE Protocol Levalbuterol HCl 0.31 mg 02/04/19 21:10 02/05/19 21:29 Xopenex IH 0.31 mg Q8H PRN Administration ASTHMA Metolazone 2.5 mg 02/06/19 12:00 02/07/19 09:41 Zaroxolyn - PO 2.5 mg DAILY JOLENE Administration Metoprolol Tartrate 200 mg 02/04/19 22:00 02/07/19 09:38 Lopressor - PO 200 mg BID JOLENE Administration Metoprolol Tartrate 5 mg 02/04/19 21:10 Lopressor Injection - IVPUSH Q4H PRN HYPERTENSION Nystatin 500,000 units 02/05/19 00:00 02/07/19 07:05 Nystatin Oral Suspension - PO 500,000 units Q6HPO JOLENE Administration Oxycodone HCl 10 mg 02/04/19 21:10 02/07/19 05:12 Roxicodone - PO 10 mg Q6H PRN Administration PAIN LEVEL 6-10 Prednisone 20 mg 02/06/19 10:00 02/07/19 09:38 Deltasone - PO 20 mg DAILY JOLENE Administration Sitagliptin Phosphate 50 mg 02/05/19 07:00 02/07/19 07:05 Januvia - PO 50 mg DAILY@0700 JOLENE Administration Verapamil HCl 80 mg 02/04/19 22:00 02/07/19 05:13 Calan - PO 80 mg TID JOLENE Administration Impression 1. CKD- non proteinuric 2. CHF 3. a-fib 4. lower ext edema robably from hagan failure 5. COPD 6. active smoker Plan - repeat labs today - cont with lasix and metolazone - volume status is improving - vanco trough and hold if over 20 MV
--- NOTE | 2019-02-07 11:10 | PN ---
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, Physician History of Present Illness: pulmonary alert,comfortable,-resp distress,c/o hand weakness - Current Medication List Current Medications: Active Medications Acetaminophen (Tylenol -) 650 mg PO Q6H PRN PRN Reason: PAIN LEVEL 6-10 Last Admin: 02/07/19 05:12 Dose: 650 mg Amiodarone HCl (Cordarone -) 400 mg PO TID ON LICENSE OF [facility] Last Admin: 02/07/19 05:12 Dose: 400 mg Apixaban (Eliquis -) 5 mg PO BID ON LICENSE OF [facility] Last Admin: 02/07/19 09:39 Dose: 5 mg Budesonide/Formoterol Fumarate (Symbicort 80/4.5mcg -) 2 puff IH BID ON [facility] OF [facility] Last Admin: 02/07/19 09:40 Dose: 2 puff Bupropion HCl (Wellbutrin Xl -) 150 mg PO DAILY ON [facility] OF [facility] Last Admin: 02/07/19 09:38 Dose: 150 mg Ergocalciferol (Drisdol -) 50,000 unit PO Foster@1000 ON [facility] OF [facility] Last Admin: 02/07/19 09:40 Dose: 50,000 unit Furosemide (Lasix Injection -) 60 mg IVPUSH BIDLASIX ON LICENSE OF [facility] Last Admin: 02/07/19 07:04 Dose: 60 mg Gabapentin (Neurontin -) 300 mg PO TID ON [facility] OF [facility] Last Admin: 02/07/19 05:12 Dose: 300 mg Hydroxyzine Pamoate (Vistaril -) 50 mg PO DAILY ON [facility] Last Admin: 02/07/19 09:40 Dose: 50 mg Metronidazole (Flagyl 500mg Premixed Ivpb -) 500 mg in 100 mls @ 100 mls/hr IVPB Q8H-IV JOLENE Last Admin: 02/07/19 09:38 Dose: 100 mls/hr Aztreonam 2 gm/ Dextrose 100 mls @ 100 mls/hr IVPB BID ON LICENSE OF [facility]; Protocol Last Admin: 02/07/19 09:37 Dose: 100 mls/hr Vancomycin HCl (Vancomycin (Pre-Docked)) 1,000 mg in 250 mls @ 166.667 mls/hr IVPB Q24H ON [facility] OF [facility]; Protocol Insulin Aspart (Novolog Vial Sliding Scale -) 1 vial SQ ACHS ON [facility] OF [facility]; Protocol Last Admin: 02/07/19 07:05 Dose: Not Given Levalbuterol HCl (Xopenex) 0.31 mg IH Q8H PRN PRN Reason: ASTHMA Last Admin: 02/05/19 21:29 Dose: 0.31 mg Metolazone (Zaroxolyn -) 2.5 mg PO DAILY ON [facility] Last Admin: 02/07/19 09:41 Dose: 2.5 mg Metoprolol Tartrate (Lopressor -) 200 mg PO BID ON [facility] OF [facility] Last Admin: 02/07/19 09:38 Dose: 200 mg Metoprolol Tartrate (Lopressor Injection -) 5 mg IVPUSH Q4H PRN PRN Reason: HYPERTENSION Nystatin (Nystatin Oral Suspension -) 500,000 units PO Q6HPO ON LICENSE OF [facility] Last Admin: 02/07/19 07:05 Dose: 500,000 units Oxycodone HCl (Roxicodone -) 10 mg PO Q6H PRN PRN Reason: PAIN LEVEL 6-10 Last Admin: 02/07/19 05:12 Dose: 10 mg Prednisone (Deltasone -) 20 mg PO DAILY ON [facility] Last Admin: 02/07/19 09:38 Dose: 20 mg Sitagliptin Phosphate (Januvia -) 50 mg PO DAILY@0700 ON [facility] Last Admin: 02/07/19 07:05 Dose: 50 mg Verapamil HCl (Calan -) 80 mg PO TID ON LICENSE OF [facility] Last Admin: 02/07/19 05:13 Dose: 80 mg - Objective Vital Signs: Vital Signs Temperature 98.1 F 02/07/19 10:00 Pulse Rate 69 02/07/19 10:00 Respiratory Rate 20 02/07/19 10:00 Blood Pressure 185/105 H 02/07/19 10:00 O2 Sat by Pulse Oximetry (%) 99 02/07/19 09:00 Constitutional: Yes: Well Nourished, Calm Eyes: Yes: WNL HENT: Yes: WNL Neck: Yes: WNL Cardiovascular: Yes: Pulse Irregular, S1, S2 Respiratory: Yes: Rales (few bibasilar crackles) Gastrointestinal: Yes: Normal Bowel Sounds, Soft Extremities: Yes: WNL Edema: Yes Edema: LLE: 3+, RLE: 3+ Labs: CBC, BMP 02/06/19 05:45 Problem List - Problems (1) Chronic respiratory failure with hypoxia and hypercapnia Code(s): J96.11 - CHRONIC RESPIRATORY FAILURE WITH HYPOXIA; J96.12 - CHRONIC RESPIRATORY FAILURE WITH HYPERCAPNIA (2) Atrial fibrillation with rapid ventricular response Code(s): I48.91 - UNSPECIFIED ATRIAL FIBRILLATION (3) Leg edema Code(s): R60.0 - LOCALIZED EDEMA (4) COPD (chronic obstructive pulmonary disease) Code(s): J44.9 - CHRONIC OBSTRUCTIVE PULMONARY DISEASE, UNSPECIFIED Qualifiers: COPD type: COPD with acute exacerbation Qualified Code(s): J44.1 - Chronic obstructive pulmonary disease with (acute) exacerbation (5) Cigarette nicotine dependence Code(s): F17.200 - NICOTINE DEPENDENCE, UNSPECIFIED, UNCOMPLICATED (6) Diabetes Code(s): E11.9 - TYPE 2 DIABETES MELLITUS WITHOUT COMPLICATIONS Qualifiers: Diabetes mellitus type: type 2 Assessment/Plan IMP AFIB WITH RVR IMPROVED COPD O2 DEPENDENT WITH CHRONIC HYPOXEMIC/HYPERCAPNEIC RESPIRATORY FAILURE DIASTOLIC HF IMPROVING CKD TOBACCO ABUSE LOWER EXTREMITY EDEMA DM BILATERAL INFILTRATES improved PLAN INHALED BRONCHODILATORS XOPENEX O2 RATE CONTROL PER CARDIOLOGY AMIODARONE LASIX SMOKING CESSATION COUNSELED MONITOR LYTES,RENAL FUNCTION ABX PER ID DR ROLLE Problem List - Problems (1) Chronic respiratory failure with hypoxia and hypercapnia Code(s): J96.11 - CHRONIC RESPIRATORY FAILURE WITH HYPOXIA; J96.12 - CHRONIC RESPIRATORY FAILURE WITH HYPERCAPNIA (2) Atrial fibrillation with rapid ventricular response Code(s): I48.91 - UNSPECIFIED ATRIAL FIBRILLATION (3) Leg edema Code(s): R60.0 - LOCALIZED EDEMA (4) COPD (chronic obstructive pulmonary disease) Code(s): J44.9 - CHRONIC OBSTRUCTIVE PULMONARY DISEASE, UNSPECIFIED Qualifiers: COPD type: COPD with acute exacerbation Qualified Code(s): J44.1 - Chronic obstructive pulmonary disease with (acute) exacerbation (5) Cigarette nicotine dependence Code(s): F17.200 - NICOTINE DEPENDENCE, UNSPECIFIED, UNCOMPLICATED (6) Diabetes Code(s): E11.9 - TYPE 2 DIABETES MELLITUS WITHOUT COMPLICATIONS Qualifiers: Diabetes mellitus type: type 2
[2019-02-07 11:18] LABS: CALCIUM 8.7 mg/dL (8.5-10.1); CREATININE 1.5 mg/dL (0.55-1.3); POTASSIUM 3.3 mmol/L (3.5-5.1)
[2019-02-07] MEDS ORDERED: POTASSIUM CHLORIDE TABS 20 MEQ TABLET.ER (FP) PO ONE (12:57)
--- NOTE | 2019-02-07 12:58 | PN ---
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, Physician Chief Complaint: AWAKE ALERT BREATHING ON ROOM AIR WITH NO DISTRESS - Current Medication List Current Medications: Active Medications Acetaminophen (Tylenol -) 650 mg PO Q6H PRN PRN Reason: PAIN LEVEL 6-10 Last Admin: 02/07/19 05:12 Dose: 650 mg Amiodarone HCl (Cordarone -) 400 mg PO TID [facility] Last Admin: 02/07/19 05:12 Dose: 400 mg Apixaban (Eliquis -) 5 mg PO BID [facility] Last Admin: 02/07/19 09:39 Dose: 5 mg Budesonide/Formoterol Fumarate (Symbicort 80/4.5mcg -) 2 puff IH BID [facility] Last Admin: 02/07/19 09:40 Dose: 2 puff Bupropion HCl (Wellbutrin Xl -) 150 mg PO DAILY [facility] Last Admin: 02/07/19 09:38 Dose: 150 mg Ergocalciferol (Drisdol -) 50,000 unit PO Foster@1000 [facility] Last Admin: 02/07/19 09:40 Dose: 50,000 unit Furosemide (Lasix Injection -) 60 mg IVPUSH BIDLASIX [facility] Last Admin: 02/07/19 07:04 Dose: 60 mg Gabapentin (Neurontin -) 300 mg PO TID [facility] Last Admin: 02/07/19 05:12 Dose: 300 mg Hydroxyzine Pamoate (Vistaril -) 50 mg PO DAILY [facility] Last Admin: 02/07/19 09:40 Dose: 50 mg Metronidazole (Flagyl 500mg Premixed Ivpb -) 500 mg in 100 mls @ 100 mls/hr IVPB Q8H-IV [facility] Last Admin: 02/07/19 09:38 Dose: 100 mls/hr Aztreonam 2 gm/ Dextrose 100 mls @ 100 mls/hr IVPB BID [facility]; Protocol Last Admin: 02/07/19 09:37 Dose: 100 mls/hr Vancomycin HCl (Vancomycin (Pre-Docked)) 1,000 mg in 250 mls @ 166.667 mls/hr IVPB Q24H [facility]; Protocol Insulin Aspart (Novolog Vial Sliding Scale -) 1 vial SQ ACHS [facility]; Protocol Last Admin: 02/07/19 12:37 Dose: 2 units Levalbuterol HCl (Xopenex) 0.31 mg IH Q8H PRN PRN Reason: ASTHMA Last Admin: 02/05/19 21:29 Dose: 0.31 mg Metolazone (Zaroxolyn -) 2.5 mg PO DAILY [facility] Last Admin: 02/07/19 09:41 Dose: 2.5 mg Metoprolol Tartrate (Lopressor -) 200 mg PO BID [facility] Last Admin: 02/07/19 09:38 Dose: 200 mg Metoprolol Tartrate (Lopressor Injection -) 5 mg IVPUSH Q4H PRN PRN Reason: HYPERTENSION Nystatin (Nystatin Oral Suspension -) 500,000 units PO Q6HPO [facility] Last Admin: 02/07/19 11:52 Dose: 500,000 units Oxycodone HCl (Roxicodone -) 10 mg PO Q6H PRN PRN Reason: PAIN LEVEL 6-10 Last Admin: 02/07/19 11:25 Dose: 10 mg Potassium Chloride (K-Dur -) 20 meq PO ONCE ONE Stop: 02/07/19 12:58 Prednisone (Deltasone -) 20 mg PO DAILY [facility] Last Admin: 02/07/19 09:38 Dose: 20 mg Sitagliptin Phosphate (Januvia -) 50 mg PO DAILY@0700 [facility] Last Admin: 02/07/19 07:05 Dose: 50 mg Verapamil HCl (Calan -) 80 mg PO TID [facility] Last Admin: 02/07/19 05:13 Dose: 80 mg - Objective Vital Signs: Vital Signs Temperature 98.1 F 02/07/19 10:00 Pulse Rate 69 02/07/19 10:00 Respiratory Rate 20 02/07/19 10:00 Blood Pressure 185/105 H 02/07/19 10:00 O2 Sat by Pulse Oximetry (%) 99 02/07/19 09:00 Constitutional: Yes: No Distress Eyes: Yes: WNL HENT: Yes: WNL Neck: Yes: WNL Cardiovascular: Yes: Pulse Irregular Respiratory: Yes: Regular Gastrointestinal: Yes: WNL Genitourinary: Yes: WNL Musculoskeletal: Yes: WNL Edema: Yes Edema: LLE: 2+, RLE: 2+ Peripheral Pulses WNL: Yes Wound/Incision: Yes: Clean/Dry Neurological: Yes: Dysarthria, Pre-Existing Deficit, Tremors ...Motor Strength: LLE, RLE Psychiatric: Yes: Other Labs: CBC, BMP 02/06/19 05:45 02/07/19 10:50 INR, PTT INR 1.30 (0.83-1.09) H 01/31/19 13:49 Problem List - Problems (1) Abnormal CT of the chest Code(s): R93.89 - ABNORMAL FINDINGS ON DX IMAGING OF OTH BODY STRUCTURES (2) Atrial fibrillation with rapid ventricular response Code(s): I48.91 - UNSPECIFIED ATRIAL FIBRILLATION (3) Chronic respiratory failure with hypoxia and hypercapnia Code(s): J96.11 - CHRONIC RESPIRATORY FAILURE WITH HYPOXIA; J96.12 - CHRONIC RESPIRATORY FAILURE WITH HYPERCAPNIA (4) Leg edema Code(s): R60.0 - LOCALIZED EDEMA (5) Acute and chronic respiratory failure Code(s): J96.20 - ACUTE AND CHR RESP FAILURE, UNSP W HYPOXIA OR HYPERCAPNIA (6) Acute on chronic diastolic (congestive) heart failure Code(s): I50.33 - ACUTE ON CHRONIC DIASTOLIC (CONGESTIVE) HEART FAILURE (7) Afib Code(s): I48.91 - UNSPECIFIED ATRIAL FIBRILLATION Qualifiers: Atrial fibrillation type: unspecified Qualified Code(s): I48.91 - Unspecified atrial fibrillation (8) Anxiety and depression Code(s): F41.9 - ANXIETY DISORDER, UNSPECIFIED; F32.9 - MAJOR DEPRESSIVE DISORDER, SINGLE EPISODE, UNSPECIFIED Assessment/Plan RESPIRATORY SUPPORT CONTINUED NEEDED IV ABX, NEBS, PREDNISONE TAPER OOB TO CHAIR RENAL AND CARDIO EVAL ON TELE WITH RVR TACHYCARDIA CONTROLLED BP CHECK HIGH TODAY CARDIO F/U NEURO EVAL FOR DYSARTHRIA
[2019-02-07] MEDS: VANCOMYCIN 1 GRAM (PRE-DOCKED) 1,000 MG/250 ML BAG IVPB SCH (13:49)
--- NOTE | 2019-02-07 15:44 | PN ---
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 (short form) - Note 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: breathing is much improved no complaints feels well Vital Signs Period Temp Pulse Resp BP Sys/Salgado Pulse Ox Last 24 Hr 97.7 F-98.6 F 63-152 20-20 145-185/81-105 99-99 cor-rrr lungs decreased bs at bases abd soft,nt ext +edema CBC, BMP 02/06/19 05:45 02/07/19 10:50 Microbiology 02/03/19 13:15 Blood - Peripheral Venous Blood Culture - Preliminary NO GROWTH OBTAINED AFTER 96 HOURS, INCUBATION TO CONTINUE FOR 1 DAYS. 02/03/19 13:20 Blood - Peripheral Venous Blood Culture - Preliminary NO GROWTH OBTAINED AFTER 96 HOURS, INCUBATION TO CONTINUE FOR 1 DAYS. 02/03/19 13:50 Urine For Antigen Detection Legionella Antigen - Final 02/03/19 13:50 Urine For Antigen Detection Streptococcus pneumoniae Antigen (M - Final Current Medications Acetaminophen (Tylenol -) 650 mg PO Q6H PRN PRN Reason: PAIN LEVEL 6-10 Last Admin: 02/07/19 05:12 Dose: 650 mg Amiodarone HCl (Cordarone -) 400 mg PO TID [facility] Last Admin: 02/07/19 13:50 Dose: 400 mg Apixaban (Eliquis -) 5 mg PO BID [facility] Last Admin: 02/07/19 09:39 Dose: 5 mg Budesonide/Formoterol Fumarate (Symbicort 80/4.5mcg -) 2 puff IH BID [facility] Last Admin: 02/07/19 09:40 Dose: 2 puff Bupropion HCl (Wellbutrin Xl -) 150 mg PO DAILY [facility] Last Admin: 02/07/19 09:38 Dose: 150 mg Ergocalciferol (Drisdol -) 50,000 unit PO Foster@1000 [facility] Last Admin: 02/07/19 09:40 Dose: 50,000 unit Furosemide (Lasix Injection -) 60 mg IVPUSH BIDLASIX [facility] Last Admin: 02/07/19 13:51 Dose: 60 mg Gabapentin (Neurontin -) 300 mg PO TID [facility] Last Admin: 02/07/19 13:51 Dose: 300 mg Hydroxyzine Pamoate (Vistaril -) 50 mg PO DAILY [facility] Last Admin: 02/07/19 09:40 Dose: 50 mg Metronidazole (Flagyl 500mg Premixed Ivpb -) 500 mg in 100 mls @ 100 mls/hr IVPB Q8H-IV [facility] Last Admin: 02/07/19 09:38 Dose: 100 mls/hr Aztreonam 2 gm/ Dextrose 100 mls @ 100 mls/hr IVPB BID [facility]; Protocol Last Admin: 02/07/19 09:37 Dose: 100 mls/hr Vancomycin HCl (Vancomycin (Pre-Docked)) 1,000 mg in 250 mls @ 166.667 mls/hr IVPB Q24H [facility]; Protocol Last Admin: 02/07/19 13:49 Dose: 166.667 mls/hr Insulin Aspart (Novolog Vial Sliding Scale -) 1 vial SQ ACHS [facility]; Protocol Last Admin: 02/07/19 12:37 Dose: 2 units Levalbuterol HCl (Xopenex) 0.31 mg IH Q8H PRN PRN Reason: ASTHMA Last Admin: 02/05/19 21:29 Dose: 0.31 mg Metolazone (Zaroxolyn -) 2.5 mg PO DAILY [facility] Last Admin: 02/07/19 09:41 Dose: 2.5 mg Metoprolol Tartrate (Lopressor -) 200 mg PO BID [facility] Last Admin: 02/07/19 09:38 Dose: 200 mg Metoprolol Tartrate (Lopressor Injection -) 5 mg IVPUSH Q4H PRN PRN Reason: HYPERTENSION Nystatin (Nystatin Oral Suspension -) 500,000 units PO Q6HPO [facility] Last Admin: 02/07/19 11:52 Dose: 500,000 units Oxycodone HCl (Roxicodone -) 10 mg PO Q6H PRN PRN Reason: PAIN LEVEL 6-10 Last Admin: 02/07/19 11:25 Dose: 10 mg Prednisone (Deltasone -) 20 mg PO DAILY [facility] Last Admin: 02/07/19 09:38 Dose: 20 mg Sitagliptin Phosphate (Januvia -) 50 mg PO DAILY@0700 [facility] Last Admin: 02/07/19 07:05 Dose: 50 mg Verapamil HCl (Calan -) 80 mg PO TID [facility] Last Admin: 02/07/19 13:52 Dose: 80 mg cxray improved a/p right lung pneumonia-day #4 vanco/azactam/flagyl, would continue, clinically improving chf-still with bilateral lower extremity edema afib penicillin allergy stephanie cr 1.5 today Problem List - Problems (1) Acute and chronic respiratory failure Code(s): J96.20 - ACUTE AND CHR RESP FAILURE, UNSP W HYPOXIA OR HYPERCAPNIA (2) Atrial fibrillation with rapid ventricular response Code(s): I48.91 - UNSPECIFIED ATRIAL FIBRILLATION (3) Leg edema Code(s): R60.0 - LOCALIZED EDEMA (4) Poor dentition Code(s): K08.9 - DISORDER OF TEETH AND SUPPORTING STRUCTURES, UNSPECIFIED (5) Penicillin allergy Code(s): Z88.0 - ALLERGY STATUS TO PENICILLIN
[2019-02-07] MEDS ORDERED: predniSONE 20 MG TABLET (UD) PO SCH (16:36)
[2019-02-07] MEDS ORDERED: PT OWN MED DRAWER 7, Y5N ONE (17:41)
[2019-02-08] MEDS: ACETAMINOPHEN 325 MG TABLET (FP) PO PRN ×3 (06:21→13:03)
[2019-02-08] MEDS: sitaGLIPtin PHOSPHATE 50 MG TABLET PO SCH (06:21)
[2019-02-08] MEDS: oxyCODONE HCL 5 MG TABLET PO PRN ×3 (06:21→20:40)
[2019-02-08] MEDS: GABAPENTIN 300 MG CAPSULE (FP) PO SCH ×3 (06:21→22:30)
[2019-02-08] MEDS: VERAPAMIL HCL 80 MG TABLET PO SCH ×3 (06:21→22:30)
[2019-02-08] MEDS: NYSTATIN 500,000 UNITS/5 ML SUSPENSION PO SCH ×4 (06:22→17:52)
[2019-02-08] MEDS: INSULIN SLIDING SCALE (NOVOLOG) 1 VIAL SQ SCH ×4 (06:22→22:35)
[2019-02-08] MEDS: FUROSEMIDE 40 MG/4 ML INJECTABLE VIAL IVPUSH SCH ×2 (06:22→13:41)
[2019-02-08] MEDS: AMIODARONE HCL 200 MG TABLET (FP) PO SCH ×3 (06:22→22:30)
[2019-02-08 07:11] LABS: HEMATOCRIT 39.8 % (32.4-45.2); HEMOGLOBIN 12.6 GM/dL (10.7-15.3); MCH 29.4 pg (25.7-33.7); MCHC 31.7 g/dl (32.0-36.0); MEAN CELL VOLUME 92.9 fl (80-96); MEAN PLT VOLUME 10.6 fl (7.5-11.1); PLATELET COUNT 80 K/MM3 (134-434); RBC 4.29 M/mm3 (3.60-5.2); RDW 17.3 % (11.6-15.6); WHITE BLOOD COUNT 7.3 K/mm3 (4.0-10.0)
[2019-02-08 07:45] LABS: CALCIUM 8.8 mg/dL (8.5-10.1); CREATININE 1.5 mg/dL (0.55-1.3); MAGNESIUM 2.2 mg/dL (1.8-2.4)
[2019-02-08 08:56] LABS: POTASSIUM 2.9 mmol/L (3.5-5.1)
[2019-02-08] MEDS: METOPROLOL TARTRATE 50 MG TABLET (FP) PO SCH ×2 (09:31→22:30)
[2019-02-08] MEDS: AZTREONAM 2 GM in DEXTROSE 5%-WATER 100 ML IVPB SCH ×2 (09:34→22:30)
[2019-02-08] MEDS: predniSONE 10 MG TABLET (UD) PO SCH (09:34)
[2019-02-08] MEDS: APIXABAN 5 MG TABLET PO SCH ×2 (09:34→22:30)
[2019-02-08] MEDS: hydrOXYzine PAMOATE 50 MG CAPSULE (FP) PO SCH (09:35)
[2019-02-08] MEDS: METOLAZONE 2.5 MG TABLET (FP) PO SCH (09:35)
[2019-02-08] MEDS: BUDESONIDE/FORMETEROL FUMARATE 80/4.5 mcg INHALER IH SCH ×2 (09:36→22:31)
[2019-02-08] MEDS ORDERED: POTASSIUM CHLORIDE TABS 20 MEQ TABLET.ER (FP) PO ONE (09:45)
--- NOTE | 2019-02-08 09:56 | PN ---
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, Physician History of Present Illness: pulmonary alert,no distress,-sob,afib controlled - Current Medication List Current Medications: Active Medications Acetaminophen (Tylenol -) 650 mg PO Q6H PRN PRN Reason: PAIN LEVEL 6-10 Last Admin: 02/08/19 06:21 Dose: 650 mg Amiodarone HCl (Cordarone -) 400 mg PO TID [facility] Last Admin: 02/08/19 06:22 Dose: 400 mg Apixaban (Eliquis -) 5 mg PO BID [facility] Last Admin: 02/08/19 09:34 Dose: 5 mg Budesonide/Formoterol Fumarate (Symbicort 80/4.5mcg -) 2 puff IH BID [facility] Last Admin: 02/08/19 09:36 Dose: 2 puff Bupropion HCl (Wellbutrin Xl -) 150 mg PO DAILY [facility] Last Admin: 02/08/19 09:34 Dose: 150 mg Ergocalciferol (Drisdol -) 50,000 unit PO Foster@1000 [facility] Last Admin: 02/07/19 09:40 Dose: 50,000 unit Furosemide (Lasix Injection -) 60 mg IVPUSH BIDLASIX [facility] Last Admin: 02/08/19 06:22 Dose: 60 mg Gabapentin (Neurontin -) 300 mg PO TID [facility] Last Admin: 02/08/19 06:21 Dose: 300 mg Hydroxyzine Pamoate (Vistaril -) 50 mg PO DAILY [facility] Last Admin: 02/08/19 09:35 Dose: 50 mg Metronidazole (Flagyl 500mg Premixed Ivpb -) 500 mg in 100 mls @ 100 mls/hr IVPB Q8H-IV [facility] Last Admin: 02/08/19 09:32 Dose: 100 mls/hr Aztreonam 2 gm/ Dextrose 100 mls @ 100 mls/hr IVPB BID [facility]; Protocol Last Admin: 02/08/19 09:34 Dose: 100 mls/hr Vancomycin HCl (Vancomycin (Pre-Docked)) 1,000 mg in 250 mls @ 166.667 mls/hr IVPB Q24H [facility]; Protocol Last Admin: 02/07/19 13:49 Dose: 166.667 mls/hr Potassium Chloride (Potassium Chloride 10 Meq Premix Ivpb -) 10 meq in 100 mls @ 100 mls/hr IVPB Q60M [facility] Stop: 02/08/19 12:44 Insulin Aspart (Novolog Vial Sliding Scale -) 1 vial SQ ACHS [facility]; Protocol Last Admin: 02/08/19 06:22 Dose: Not Given Levalbuterol HCl (Xopenex) 0.31 mg IH Q8H PRN PRN Reason: ASTHMA Last Admin: 02/05/19 21:29 Dose: 0.31 mg Metoprolol Tartrate (Lopressor -) 200 mg PO BID [facility] Last Admin: 02/08/19 09:31 Dose: 200 mg Metoprolol Tartrate (Lopressor Injection -) 5 mg IVPUSH Q4H PRN PRN Reason: HYPERTENSION Last Admin: 02/08/19 05:03 Dose: 5 mg Nystatin (Nystatin Oral Suspension -) 500,000 units PO Q6HPO [facility] Last Admin: 02/08/19 06:22 Dose: Not Given Oxycodone HCl (Roxicodone -) 10 mg PO Q6H PRN PRN Reason: PAIN LEVEL 6-10 Last Admin: 02/08/19 06:21 Dose: 10 mg Prednisone (Deltasone -) 10 mg PO DAILY [facility] Last Admin: 02/08/19 09:34 Dose: 10 mg Sitagliptin Phosphate (Januvia -) 50 mg PO DAILY@0700 [facility] Last Admin: 02/08/19 06:21 Dose: 50 mg Verapamil HCl (Calan -) 80 mg PO TID [facility] Last Admin: 02/08/19 06:21 Dose: 80 mg - Objective Vital Signs: Vital Signs Temperature 97.8 F 02/08/19 02:00 Pulse Rate 86 02/08/19 05:19 Respiratory Rate 20 02/08/19 05:19 Blood Pressure 164/89 02/08/19 05:19 O2 Sat by Pulse Oximetry (%) 93 L 02/07/19 20:25 Constitutional: Yes: Well Nourished, Calm Eyes: Yes: WNL HENT: Yes: WNL Neck: Yes: WNL Cardiovascular: Yes: Pulse Irregular, S1, S2 Respiratory: Yes: Rales (few bibasilar crackles) Gastrointestinal: Yes: Normal Bowel Sounds, Soft Extremities: Yes: WNL Edema: Yes Labs: CBC, BMP 02/08/19 05:51 02/08/19 05:51 INR, PTT INR 1.30 (0.83-1.09) H 01/31/19 13:49 Problem List - Problems (1) Chronic respiratory failure with hypoxia and hypercapnia Code(s): J96.11 - CHRONIC RESPIRATORY FAILURE WITH HYPOXIA; J96.12 - CHRONIC RESPIRATORY FAILURE WITH HYPERCAPNIA (2) Atrial fibrillation with rapid ventricular response Code(s): I48.91 - UNSPECIFIED ATRIAL FIBRILLATION (3) Leg edema Code(s): R60.0 - LOCALIZED EDEMA (4) COPD (chronic obstructive pulmonary disease) Code(s): J44.9 - CHRONIC OBSTRUCTIVE PULMONARY DISEASE, UNSPECIFIED Qualifiers: COPD type: COPD with acute exacerbation Qualified Code(s): J44.1 - Chronic obstructive pulmonary disease with (acute) exacerbation (5) Cigarette nicotine dependence Code(s): F17.200 - NICOTINE DEPENDENCE, UNSPECIFIED, UNCOMPLICATED (6) Diabetes Code(s): E11.9 - TYPE 2 DIABETES MELLITUS WITHOUT COMPLICATIONS Qualifiers: Diabetes mellitus type: type 2 Assessment/Plan IMP AFIB WITH RVR IMPROVED COPD O2 DEPENDENT WITH CHRONIC HYPOXEMIC/HYPERCAPNEIC RESPIRATORY FAILURE DIASTOLIC HF IMPROVING CKD TOBACCO ABUSE LOWER EXTREMITY EDEMA DM BILATERAL INFILTRATES improved PLAN INHALED BRONCHODILATORS XOPENEX O2 RATE CONTROL PER CARDIOLOGY AMIODARONE LASIX SMOKING CESSATION COUNSELED MONITOR LYTES,RENAL FUNCTION REPLETE KATHERINE ROLLE Problem List - Problems (1) Chronic respiratory failure with hypoxia and hypercapnia Code(s): J96.11 - CHRONIC RESPIRATORY FAILURE WITH HYPOXIA; J96.12 - CHRONIC RESPIRATORY FAILURE WITH HYPERCAPNIA (2) Atrial fibrillation with rapid ventricular response Code(s): I48.91 - UNSPECIFIED ATRIAL FIBRILLATION (3) Leg edema Code(s): R60.0 - LOCALIZED EDEMA (4) COPD (chronic obstructive pulmonary disease) Code(s): J44.9 - CHRONIC OBSTRUCTIVE PULMONARY DISEASE, UNSPECIFIED Qualifiers: COPD type: COPD with acute exacerbation Qualified Code(s): J44.1 - Chronic obstructive pulmonary disease with (acute) exacerbation (5) Cigarette nicotine dependence Code(s): F17.200 - NICOTINE DEPENDENCE, UNSPECIFIED, UNCOMPLICATED (6) Diabetes Code(s): E11.9 - TYPE 2 DIABETES MELLITUS WITHOUT COMPLICATIONS Qualifiers: Diabetes mellitus type: type 2
--- NOTE | 2019-02-08 10:58 | PN ---
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, Physician History of Present Illness: Pt seen and examined at bedside. She is agitated and is asking to go home. - Current Medication List Current Medications: Active Medications Acetaminophen (Tylenol -) 650 mg PO Q6H PRN PRN Reason: PAIN LEVEL 6-10 Last Admin: 02/08/19 06:21 Dose: 650 mg Amiodarone HCl (Cordarone -) 400 mg PO TID [facility] Last Admin: 02/08/19 06:22 Dose: 400 mg Apixaban (Eliquis -) 5 mg PO BID [facility] Last Admin: 02/08/19 09:34 Dose: 5 mg Budesonide/Formoterol Fumarate (Symbicort 80/4.5mcg -) 2 puff IH BID [facility] Last Admin: 02/08/19 09:36 Dose: 2 puff Bupropion HCl (Wellbutrin Xl -) 150 mg PO DAILY [facility] Last Admin: 02/08/19 09:34 Dose: 150 mg Ergocalciferol (Drisdol -) 50,000 unit PO Foster@1000 [facility] Last Admin: 02/07/19 09:40 Dose: 50,000 unit Furosemide (Lasix Injection -) 60 mg IVPUSH BIDLASIX [facility] Last Admin: 02/08/19 06:22 Dose: 60 mg Gabapentin (Neurontin -) 300 mg PO TID [facility] Last Admin: 02/08/19 06:21 Dose: 300 mg Hydroxyzine Pamoate (Vistaril -) 50 mg PO DAILY [facility] Last Admin: 02/08/19 09:35 Dose: 50 mg Metronidazole (Flagyl 500mg Premixed Ivpb -) 500 mg in 100 mls @ 100 mls/hr IVPB Q8H-IV [facility] Last Admin: 02/08/19 09:32 Dose: 100 mls/hr Aztreonam 2 gm/ Dextrose 100 mls @ 100 mls/hr IVPB BID [facility]; Protocol Last Admin: 02/08/19 09:34 Dose: 100 mls/hr Vancomycin HCl (Vancomycin (Pre-Docked)) 1,000 mg in 250 mls @ 166.667 mls/hr IVPB Q24H [facility]; Protocol Last Admin: 02/07/19 13:49 Dose: 166.667 mls/hr Potassium Chloride (Potassium Chloride 10 Meq Premix Ivpb -) 10 meq in 100 mls @ 100 mls/hr IVPB Q60M [facility] Stop: 02/08/19 12:44 Insulin Aspart (Novolog Vial Sliding Scale -) 1 vial SQ ACHS [facility]; Protocol Last Admin: 02/08/19 06:22 Dose: Not Given Levalbuterol HCl (Xopenex) 0.31 mg IH Q8H PRN PRN Reason: ASTHMA Last Admin: 02/05/19 21:29 Dose: 0.31 mg Metoprolol Tartrate (Lopressor -) 200 mg PO BID [facility] Last Admin: 02/08/19 09:31 Dose: 200 mg Metoprolol Tartrate (Lopressor Injection -) 5 mg IVPUSH Q4H PRN PRN Reason: HYPERTENSION Last Admin: 02/08/19 05:03 Dose: 5 mg Nystatin (Nystatin Oral Suspension -) 500,000 units PO Q6HPO [facility] Last Admin: 02/08/19 06:22 Dose: Not Given Oxycodone HCl (Roxicodone -) 10 mg PO Q6H PRN PRN Reason: PAIN LEVEL 6-10 Last Admin: 02/08/19 06:21 Dose: 10 mg Prednisone (Deltasone -) 10 mg PO DAILY [facility] Last Admin: 02/08/19 09:34 Dose: 10 mg Sitagliptin Phosphate (Januvia -) 50 mg PO DAILY@0700 [facility] Last Admin: 02/08/19 06:21 Dose: 50 mg Verapamil HCl (Calan -) 80 mg PO TID [facility] Last Admin: 02/08/19 06:21 Dose: 80 mg - Objective Vital Signs: Vital Signs Temperature 97.8 F 02/08/19 02:00 Pulse Rate 86 02/08/19 05:19 Respiratory Rate 20 02/08/19 05:19 Blood Pressure 164/89 02/08/19 05:19 O2 Sat by Pulse Oximetry (%) 93 L 02/07/19 20:25 Constitutional: Yes: Calm Eyes: Yes: Conjunctiva Clear HENT: Yes: Atraumatic Neck: Yes: Supple Cardiovascular: Yes: S1, S2 Respiratory: Yes: CTA Bilaterally Gastrointestinal: Yes: Soft Genitourinary: Yes: WNL Edema: Yes Edema: LLE: 2+, RLE: 2+ Neurological: Yes: Oriented Psychiatric: Yes: Oriented Labs: CBC, BMP 02/08/19 05:51 02/08/19 05:51 INR, PTT INR 1.30 (0.83-1.09) H 01/31/19 13:49 Problem List - Problems (1) CHF exacerbation Code(s): I50.9 - HEART FAILURE, UNSPECIFIED (2) CKD (chronic kidney disease) Code(s): N18.9 - CHRONIC KIDNEY DISEASE, UNSPECIFIED (3) Hypertension Code(s): I10 - ESSENTIAL (PRIMARY) HYPERTENSION Assessment/Plan Current Medications Generic Name Dose Route Start Last Admin Trade Name Freq PRN Reason Stop Dose Admin Acetaminophen 650 mg 02/04/19 21:10 02/08/19 06:21 Tylenol - PO 650 mg Q6H PRN Administration PAIN LEVEL 6-10 Amiodarone HCl 400 mg 02/04/19 22:00 02/08/19 06:22 Cordarone - PO 400 mg TID [facility] Administration Apixaban 5 mg 02/04/19 22:00 02/08/19 09:34 Eliquis - PO 5 mg BID [facility] Administration Budesonide/Formoterol Fumarate 2 puff 02/04/19 22:00 02/08/19 09:36 Symbicort 80/4.5mcg - IH 2 puff BID [facility] Administration Bupropion HCl 150 mg 02/05/19 10:00 02/08/19 09:34 Wellbutrin Xl - PO 150 mg DAILY [facility] Administration Ergocalciferol 50,000 unit 02/07/19 10:00 02/07/19 09:40 Drisdol - PO 50,000 unit Foster@1000 [facility] Administration Furosemide 60 mg 02/04/19 14:00 02/08/19 06:22 Lasix Injection - IVPUSH 60 mg BIDLASIX [facility] Administration Gabapentin 300 mg 02/04/19 22:00 02/08/19 06:21 Neurontin - PO 300 mg TID [facility] Administration Hydroxyzine Pamoate 50 mg 02/05/19 10:00 02/08/19 09:35 Vistaril - PO 50 mg DAILY [facility] Administration Metronidazole 500 mg in 100 mls @ 100 mls/hr 02/05/19 02:00 02/08/19 09:32 Flagyl 500mg Premixed Ivpb - IVPB 100 mls/hr Q8H-IV [facility] Administration Aztreonam 2 gm/ Dextrose 100 mls @ 100 mls/hr 02/05/19 22:00 02/08/19 09:34 IVPB 100 mls/hr BID [facility] Administration Protocol Vancomycin HCl 1,000 mg in 250 mls @ 166.667 mls/hr 02/07/19 13:00 02/07/19 13:49 Vancomycin (Pre-Docked) IVPB 166.667 mls/hr Q24H [facility] Administration Protocol Potassium Chloride 10 meq in 100 mls @ 100 mls/hr 02/08/19 09:45 Potassium Chloride 10 Meq Premix Ivpb - IVPB 02/08/19 12:44 Q60M [facility] Insulin Aspart 1 vial 02/04/19 22:00 02/08/19 06:22 Novolog Vial Sliding Scale - SQ Not Given ACHS [facility] Protocol Levalbuterol HCl 0.31 mg 02/04/19 21:10 02/05/19 21:29 Xopenex IH 0.31 mg Q8H PRN Administration ASTHMA Metoprolol Tartrate 200 mg 02/04/19 22:00 02/08/19 09:31 Lopressor - PO 200 mg BID [facility] Administration Metoprolol Tartrate 5 mg 02/04/19 21:10 02/08/19 05:03 Lopressor Injection - IVPUSH 5 mg Q4H PRN Administration HYPERTENSION Nystatin 500,000 units 02/05/19 00:00 02/08/19 06:22 Nystatin Oral Suspension - PO Not Given Q6HPO [facility] Oxycodone HCl 10 mg 02/04/19 21:10 02/08/19 06:21 Roxicodone - PO 10 mg Q6H PRN Administration PAIN LEVEL 6-10 Prednisone 10 mg 02/08/19 10:00 02/08/19 09:34 Deltasone - PO 10 mg DAILY [facility] Administration Sitagliptin Phosphate 50 mg 02/05/19 07:00 02/08/19 06:21 Januvia - PO 50 mg DAILY@0700 [facility] Administration Verapamil HCl 80 mg 02/04/19 22:00 02/08/19 06:21 Calan - PO 80 mg TID [facility] Administration Impression 1. CKD 2. CHF 3. a-fib 4. lower ext edema 5. COPD 6. active smoker Plan - replace potassium - hold metolazone dose - pt still with edema - ccb may be contributing to edema - cardi follow up - ua neg for blood or protein
--- NOTE | 2019-02-08 11:31 | PN ---
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 (short form) - Note 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: breathing is much improved no complaints feels well wants to go home requesting VNS and [facility] services Vital Signs Period Temp Pulse Resp BP Sys/Salgado Pulse Ox Last 24 Hr 97.6 F-97.8 F 79-93 18-20 123-188/70-112 93 cor-rrr lungs decreased bs at bases abd soft,nt ext +edema CBC, BMP 02/08/19 05:51 02/08/19 05:51 Microbiology 02/03/19 13:15 Blood - Peripheral Venous Blood Culture - Preliminary NO GROWTH OBTAINED AFTER 96 HOURS, INCUBATION TO CONTINUE FOR 1 DAYS. 02/03/19 13:20 Blood - Peripheral Venous Blood Culture - Preliminary NO GROWTH OBTAINED AFTER 96 HOURS, INCUBATION TO CONTINUE FOR 1 DAYS. 02/03/19 13:50 Urine For Antigen Detection Legionella Antigen - Final 02/03/19 13:50 Urine For Antigen Detection Streptococcus pneumoniae Antigen (M - Final cxray improved-resolved Right lung infiltrate a/p right lung pneumonia-day # 5 vanco/azactam/flagyl, can d/c antibioitics after todays dose of vancomycin chf-still with bilateral lower extremity edema afib penicillin allergy stephanie cr 1.5 today now hypokalemic-reciving potassium today please call back if needed Problem List - Problems (1) Acute and chronic respiratory failure Code(s): J96.20 - ACUTE AND CHR RESP FAILURE, UNSP W HYPOXIA OR HYPERCAPNIA (2) Atrial fibrillation with rapid ventricular response Code(s): I48.91 - UNSPECIFIED ATRIAL FIBRILLATION (3) Leg edema Code(s): R60.0 - LOCALIZED EDEMA (4) Poor dentition Code(s): K08.9 - DISORDER OF TEETH AND SUPPORTING STRUCTURES, UNSPECIFIED (5) Penicillin allergy Code(s): Z88.0 - ALLERGY STATUS TO PENICILLIN
--- NOTE | 2019-02-08 12:19 | PN ---
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, Physician Chief Complaint: patient labs noted hypokalemic iv abx to stop after tonight still has leg edema on iv lasix - Current Medication List Current Medications: Active Medications Acetaminophen (Tylenol -) 650 mg PO Q6H PRN PRN Reason: PAIN LEVEL 6-10 Last Admin: 02/08/19 06:21 Dose: 650 mg Amiodarone HCl (Cordarone -) 400 mg PO TID [facility] Last Admin: 02/08/19 06:22 Dose: 400 mg Apixaban (Eliquis -) 5 mg PO BID [facility] Last Admin: 02/08/19 09:34 Dose: 5 mg Budesonide/Formoterol Fumarate (Symbicort 80/4.5mcg -) 2 puff IH BID [facility] Last Admin: 02/08/19 09:36 Dose: 2 puff Bupropion HCl (Wellbutrin Xl -) 150 mg PO DAILY [facility] Last Admin: 02/08/19 09:34 Dose: 150 mg Ergocalciferol (Drisdol -) 50,000 unit PO Foster@1000 [facility] Last Admin: 02/07/19 09:40 Dose: 50,000 unit Furosemide (Lasix Injection -) 60 mg IVPUSH BIDLASIX [facility] Last Admin: 02/08/19 06:22 Dose: 60 mg Gabapentin (Neurontin -) 300 mg PO TID [facility] Last Admin: 02/08/19 06:21 Dose: 300 mg Hydroxyzine Pamoate (Vistaril -) 50 mg PO DAILY [facility] Last Admin: 02/08/19 09:35 Dose: 50 mg Metronidazole (Flagyl 500mg Premixed Ivpb -) 500 mg in 100 mls @ 100 mls/hr IVPB Q8H-IV [facility] Last Admin: 02/08/19 09:32 Dose: 100 mls/hr Aztreonam 2 gm/ Dextrose 100 mls @ 100 mls/hr IVPB BID [facility]; Protocol Last Admin: 02/08/19 09:34 Dose: 100 mls/hr Vancomycin HCl (Vancomycin (Pre-Docked)) 1,000 mg in 250 mls @ 166.667 mls/hr IVPB Q24H [facility]; Protocol Last Admin: 02/07/19 13:49 Dose: 166.667 mls/hr Potassium Chloride (Potassium Chloride 10 Meq Premix Ivpb -) 10 meq in 100 mls @ 100 mls/hr IVPB Q60M [facility] Stop: 02/08/19 12:44 Insulin Aspart (Novolog Vial Sliding Scale -) 1 vial SQ ACHS [facility]; Protocol Last Admin: 02/08/19 06:22 Dose: Not Given Levalbuterol HCl (Xopenex) 0.31 mg IH Q8H PRN PRN Reason: ASTHMA Last Admin: 02/05/19 21:29 Dose: 0.31 mg Metoprolol Tartrate (Lopressor -) 200 mg PO BID [facility] Last Admin: 02/08/19 09:31 Dose: 200 mg Metoprolol Tartrate (Lopressor Injection -) 5 mg IVPUSH Q4H PRN PRN Reason: HYPERTENSION Last Admin: 02/08/19 05:03 Dose: 5 mg Nystatin (Nystatin Oral Suspension -) 500,000 units PO Q6HPO [facility] Last Admin: 02/08/19 06:22 Dose: Not Given Oxycodone HCl (Roxicodone -) 10 mg PO Q6H PRN PRN Reason: PAIN LEVEL 6-10 Last Admin: 02/08/19 06:21 Dose: 10 mg Prednisone (Deltasone -) 10 mg PO DAILY [facility] Last Admin: 02/08/19 09:34 Dose: 10 mg Sitagliptin Phosphate (Januvia -) 50 mg PO DAILY@0700 [facility] Last Admin: 02/08/19 06:21 Dose: 50 mg Verapamil HCl (Calan -) 80 mg PO TID [facility] Last Admin: 02/08/19 06:21 Dose: 80 mg - Objective Vital Signs: Vital Signs Temperature 97.8 F 02/08/19 02:00 Pulse Rate 86 02/08/19 05:19 Respiratory Rate 20 02/08/19 05:19 Blood Pressure 164/89 02/08/19 05:19 O2 Sat by Pulse Oximetry (%) 93 L 02/07/19 20:25 Constitutional: Yes: Calm Cardiovascular: Yes: Regular Rate and Rhythm, S1, S2 Respiratory: Yes: CTA Bilaterally Gastrointestinal: Yes: Normal Bowel Sounds, Soft Edema: Yes Neurological: Yes: Alert, Oriented Labs: CBC, BMP 02/08/19 05:51 02/08/19 05:51 INR, PTT INR 1.30 (0.83-1.09) H 01/31/19 13:49 Problem List - Problems (1) Atrial fibrillation with rapid ventricular response Assessment/Plan: amiodarone 400mg TID eliquis bid no plan for cardioversion poor dentition vermapmil 80mg tid metoprolol 200mg bid Code(s): I48.91 - UNSPECIFIED ATRIAL FIBRILLATION (2) Leg edema Assessment/Plan: lasix 60mg bid iv monitor potassium- repleted today recheck in AM Code(s): R60.0 - LOCALIZED EDEMA (3) CKD (chronic kidney disease) Assessment/Plan: lasix monior renal fucntion renal team folowing Code(s): N18.9 - CHRONIC KIDNEY DISEASE, UNSPECIFIED (4) Abnormal CT of the chest Assessment/Plan: seen by ID iv abx pcn allergy aztreonam and flagy and vancomcyin stop abx after today dose Code(s): R93.89 - ABNORMAL FINDINGS ON DX IMAGING OF OTH BODY STRUCTURES (5) Thrush Assessment/Plan: nystatin Code(s): B37.0 - CANDIDAL STOMATITIS (6) Poor dentition Assessment/Plan: dental eval Code(s): K08.9 - DISORDER OF TEETH AND SUPPORTING STRUCTURES, UNSPECIFIED
[2019-02-08] MEDS: KCL 10 MEQ IVPB 10 MEQ/100 ML INFUS.BAG IVPB SCH ×3 (12:35→16:49)
[2019-02-08] MEDS ORDERED: PT OWN MED DRAWER 7, Y5N ONE ×2 (13:33→21:25)
[2019-02-08] MEDS: VANCOMYCIN 1 GRAM (PRE-DOCKED) 1,000 MG/250 ML BAG IVPB SCH (13:58)
[2019-02-09] MEDS: NYSTATIN 500,000 UNITS/5 ML SUSPENSION PO SCH ×5 (01:35→23:33)
[2019-02-09] MEDS: oxyCODONE HCL 5 MG TABLET PO PRN ×3 (04:05→23:33)
[2019-02-09] MEDS: AMIODARONE HCL 200 MG TABLET (FP) PO SCH ×3 (05:45→23:33)
[2019-02-09] MEDS: VERAPAMIL HCL 80 MG TABLET PO SCH ×3 (05:45→23:33)
[2019-02-09] MEDS: GABAPENTIN 300 MG CAPSULE (FP) PO SCH ×3 (05:45→23:34)
[2019-02-09] MEDS: FUROSEMIDE 40 MG/4 ML INJECTABLE VIAL IVPUSH SCH (05:46)
[2019-02-09] MEDS: INSULIN SLIDING SCALE (NOVOLOG) 1 VIAL SQ SCH ×4 (06:00→23:44)
[2019-02-09] MEDS: sitaGLIPtin PHOSPHATE 50 MG TABLET PO SCH (06:00)
[2019-02-09 08:27] LABS: ALK PHOS 75 U/L (45-117); ANION GAP 7 MMOL/L (8-16); BILIRUBIN,TOTAL 0.9 mg/dL (0.2-1); BLOOD UREA NITROGEN 33 mg/dL (7-18); CALCIUM 8.6 mg/dL (8.5-10.1); CHLORIDE 88 mmol/L (98-107); CO2 > 45 mmol/L (21-32); CREATININE 1.5 mg/dL (0.55-1.3); GLUCOSE,RANDOM 121 mg/dL (74-106); SGOT/AST 11 U/L (15-37); SGPT/ALT 21 U/L (13-61); SODIUM 140 mmol/L (136-145)
[2019-02-09 08:43] LABS: POTASSIUM 2.7 mmol/L (3.5-5.1)
[2019-02-09] MEDS ORDERED: PT OWN MED DRAWER 7, Y5N ONE (08:52)
[2019-02-09] MEDS: AZTREONAM 2 GM in DEXTROSE 5%-WATER 100 ML IVPB SCH (09:01)
[2019-02-09] MEDS: APIXABAN 5 MG TABLET PO SCH ×2 (09:04→23:33)
[2019-02-09] MEDS: hydrOXYzine PAMOATE 50 MG CAPSULE (FP) PO SCH (09:04)
[2019-02-09] MEDS: predniSONE 10 MG TABLET (UD) PO SCH (09:05)
[2019-02-09] MEDS: METOPROLOL TARTRATE 50 MG TABLET (FP) PO SCH ×2 (09:05→23:33)
[2019-02-09] MEDS: BUDESONIDE/FORMETEROL FUMARATE 80/4.5 mcg INHALER IH SCH ×2 (09:06→23:34)
[2019-02-09] MEDS ORDERED: POTASSIUM CHLORIDE TABS 20 MEQ TABLET.ER (FP) PO ONE ×2 (09:45→18:17)
[2019-02-09] MEDS: ACETAMINOPHEN 325 MG TABLET (FP) PO PRN (10:09)
[2019-02-09] MEDS: KCL 10 MEQ IVPB 10 MEQ/100 ML INFUS.BAG IVPB SCH ×3 (10:17→15:13)
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
--- NOTE | 2019-02-09 10:25 | PN ---
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, Physician History of Present Illness: PULMONARY ALERT,-C/O SOB,OOB-CHAIR - Current Medication List Current Medications: Active Medications Acetaminophen (Tylenol -) 650 mg PO Q6H PRN PRN Reason: PAIN LEVEL 6-10 Last Admin: 02/09/19 10:09 Dose: 650 mg Amiodarone HCl (Cordarone -) 400 mg PO TID [facility] Last Admin: 02/09/19 05:45 Dose: 400 mg Apixaban (Eliquis -) 5 mg PO BID [facility] Last Admin: 02/09/19 09:04 Dose: 5 mg Budesonide/Formoterol Fumarate (Symbicort 80/4.5mcg -) 2 puff IH BID [facility] Last Admin: 02/09/19 09:06 Dose: 2 puff Bupropion HCl (Wellbutrin Xl -) 300 mg PO DAILY [facility] Ergocalciferol (Drisdol -) 50,000 unit PO Foster@1000 [facility] Last Admin: 02/07/19 09:40 Dose: 50,000 unit Gabapentin (Neurontin -) 300 mg PO TID [facility] Last Admin: 02/09/19 05:45 Dose: 300 mg Hydroxyzine Pamoate (Vistaril -) 50 mg PO DAILY [facility] Last Admin: 02/09/19 09:04 Dose: 50 mg Metronidazole (Flagyl 500mg Premixed Ivpb -) 500 mg in 100 mls @ 100 mls/hr IVPB Q8H-IV [facility] Last Admin: 02/09/19 09:05 Dose: 100 mls/hr Aztreonam 2 gm/ Dextrose 100 mls @ 100 mls/hr IVPB BID [facility]; Protocol Last Admin: 02/09/19 09:01 Dose: 100 mls/hr Vancomycin HCl (Vancomycin (Pre-Docked)) 1,000 mg in 250 mls @ 166.667 mls/hr IVPB Q24H [facility]; Protocol Last Admin: 02/08/19 13:58 Dose: 166.667 mls/hr Potassium Chloride (Potassium Chloride 10 Meq Premix Ivpb -) 10 meq in 100 mls @ 100 mls/hr IVPB Q60M [facility] Stop: 02/09/19 12:44 Last Admin: 02/09/19 10:17 Dose: 100 mls/hr Insulin Aspart (Novolog Vial Sliding Scale -) 1 vial SQ ACHS [facility]; Protocol Last Admin: 02/09/19 06:00 Dose: Not Given Levalbuterol HCl (Xopenex) 0.31 mg IH Q8H PRN PRN Reason: ASTHMA Last Admin: 02/05/19 21:29 Dose: 0.31 mg Metoprolol Tartrate (Lopressor -) 200 mg PO BID [facility] Last Admin: 02/09/19 09:05 Dose: 200 mg Metoprolol Tartrate (Lopressor Injection -) 5 mg IVPUSH Q4H PRN PRN Reason: HYPERTENSION Last Admin: 02/08/19 05:03 Dose: 5 mg Nystatin (Nystatin Oral Suspension -) 500,000 units PO Q6HPO [facility] Last Admin: 02/09/19 05:46 Dose: 500,000 units Oxycodone HCl (Roxicodone -) 10 mg PO Q6H PRN PRN Reason: PAIN LEVEL 6-10 Last Admin: 02/09/19 10:10 Dose: 10 mg Prednisone (Deltasone -) 10 mg PO DAILY [facility] Last Admin: 02/09/19 09:05 Dose: 10 mg Sitagliptin Phosphate (Januvia -) 50 mg PO DAILY@0700 [facility] Last Admin: 02/09/19 06:00 Dose: 50 mg Verapamil HCl (Calan -) 80 mg PO TID [facility] Last Admin: 02/09/19 05:45 Dose: 80 mg - Objective Vital Signs: Vital Signs Temperature 98.3 F 02/09/19 05:50 Pulse Rate 91 H 02/09/19 05:50 Respiratory Rate 2 L 02/09/19 05:50 Blood Pressure 166/96 02/09/19 05:50 O2 Sat by Pulse Oximetry (%) 97 02/08/19 21:00 Constitutional: Yes: Well Nourished, Calm Eyes: Yes: WNL HENT: Yes: WNL Neck: Yes: WNL Cardiovascular: Yes: Pulse Irregular, S1, S2 Respiratory: Yes: Rales (FEW BIBASILAR CRACKLES) Gastrointestinal: Yes: Normal Bowel Sounds, Soft Extremities: Yes: WNL Edema: Yes Labs: CBC, BMP 02/08/19 05:51 02/09/19 05:40 INR, PTT INR 1.30 (0.83-1.09) H 01/31/19 13:49 Problem List - Problems (1) Chronic respiratory failure with hypoxia and hypercapnia Code(s): J96.11 - CHRONIC RESPIRATORY FAILURE WITH HYPOXIA; J96.12 - CHRONIC RESPIRATORY FAILURE WITH HYPERCAPNIA (2) Atrial fibrillation with rapid ventricular response Code(s): I48.91 - UNSPECIFIED ATRIAL FIBRILLATION (3) Leg edema Code(s): R60.0 - LOCALIZED EDEMA (4) COPD (chronic obstructive pulmonary disease) Code(s): J44.9 - CHRONIC OBSTRUCTIVE PULMONARY DISEASE, UNSPECIFIED Qualifiers: COPD type: COPD with acute exacerbation Qualified Code(s): J44.1 - Chronic obstructive pulmonary disease with (acute) exacerbation (5) Cigarette nicotine dependence Code(s): F17.200 - NICOTINE DEPENDENCE, UNSPECIFIED, UNCOMPLICATED (6) Diabetes Code(s): E11.9 - TYPE 2 DIABETES MELLITUS WITHOUT COMPLICATIONS Qualifiers: Diabetes mellitus type: type 2 Assessment/Plan IMP AFIB WITH RVR IMPROVED COPD O2 DEPENDENT WITH CHRONIC HYPOXEMIC/HYPERCAPNEIC RESPIRATORY FAILURE DIASTOLIC HF IMPROVING CKD TOBACCO ABUSE LOWER EXTREMITY EDEMA DM BILATERAL INFILTRATES improved PLAN INHALED BRONCHODILATORS XOPENEX O2 RATE CONTROL PER CARDIOLOGY AMIODARONE SMOKING CESSATION COUNSELED MONITOR LYESTEFANÍA,RENAL FUNCTION REPLETE KATHERINE ROLLE Problem List - Problems (1) Chronic respiratory failure with hypoxia and hypercapnia Code(s): J96.11 - CHRONIC RESPIRATORY FAILURE WITH HYPOXIA; J96.12 - CHRONIC RESPIRATORY FAILURE WITH HYPERCAPNIA (2) Atrial fibrillation with rapid ventricular response Code(s): I48.91 - UNSPECIFIED ATRIAL FIBRILLATION (3) Leg edema Code(s): R60.0 - LOCALIZED EDEMA (4) COPD (chronic obstructive pulmonary disease) Code(s): J44.9 - CHRONIC OBSTRUCTIVE PULMONARY DISEASE, UNSPECIFIED Qualifiers: COPD type: COPD with acute exacerbation Qualified Code(s): J44.1 - Chronic obstructive pulmonary disease with (acute) exacerbation (5) Cigarette nicotine dependence Code(s): F17.200 - NICOTINE DEPENDENCE, UNSPECIFIED, UNCOMPLICATED (6) Diabetes Code(s): E11.9 - TYPE 2 DIABETES MELLITUS WITHOUT COMPLICATIONS Qualifiers: Diabetes mellitus type: type 2
--- NOTE | 2019-02-09 11:57 | PN ---
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, Physician Chief Complaint: Afib with RVR CKD Lower Extremity Edema History of Present Illness: Previous notes and events reviewed awake and alert NAD denies chest pain or SOB Hypokalemic with K 2.7 - Current Medication List Current Medications: Active Medications Acetaminophen (Tylenol -) 650 mg PO Q6H PRN PRN Reason: PAIN LEVEL 6-10 Last Admin: 02/09/19 10:09 Dose: 650 mg Amiodarone HCl (Cordarone -) 400 mg PO TID [facility] Last Admin: 02/09/19 05:45 Dose: 400 mg Apixaban (Eliquis -) 5 mg PO BID [facility] Last Admin: 02/09/19 09:04 Dose: 5 mg Budesonide/Formoterol Fumarate (Symbicort 80/4.5mcg -) 2 puff IH BID [facility] Last Admin: 02/09/19 09:06 Dose: 2 puff Bupropion HCl (Wellbutrin Xl -) 300 mg PO DAILY [facility] Ergocalciferol (Drisdol -) 50,000 unit PO Foster@1000 [facility] Last Admin: 02/07/19 09:40 Dose: 50,000 unit Gabapentin (Neurontin -) 300 mg PO TID [facility] Last Admin: 02/09/19 05:45 Dose: 300 mg Hydroxyzine Pamoate (Vistaril -) 50 mg PO DAILY [facility] Last Admin: 02/09/19 09:04 Dose: 50 mg Metronidazole (Flagyl 500mg Premixed Ivpb -) 500 mg in 100 mls @ 100 mls/hr IVPB Q8H-IV [facility] Last Admin: 02/09/19 09:05 Dose: 100 mls/hr Aztreonam 2 gm/ Dextrose 100 mls @ 100 mls/hr IVPB BID [facility]; Protocol Last Admin: 02/09/19 09:01 Dose: 100 mls/hr Vancomycin HCl (Vancomycin (Pre-Docked)) 1,000 mg in 250 mls @ 166.667 mls/hr IVPB Q24H [facility]; Protocol Last Admin: 02/08/19 13:58 Dose: 166.667 mls/hr Potassium Chloride (Potassium Chloride 10 Meq Premix Ivpb -) 10 meq in 100 mls @ 100 mls/hr IVPB Q60M [facility] Stop: 02/09/19 12:44 Last Admin: 02/09/19 10:17 Dose: 100 mls/hr Insulin Aspart (Novolog Vial Sliding Scale -) 1 vial SQ ACHS [facility]; Protocol Last Admin: 02/09/19 06:00 Dose: Not Given Levalbuterol HCl (Xopenex) 0.31 mg IH Q8H PRN PRN Reason: ASTHMA Last Admin: 02/05/19 21:29 Dose: 0.31 mg Metoprolol Tartrate (Lopressor -) 200 mg PO BID [facility] Last Admin: 02/09/19 09:05 Dose: 200 mg Metoprolol Tartrate (Lopressor Injection -) 5 mg IVPUSH Q4H PRN PRN Reason: HYPERTENSION Last Admin: 02/08/19 05:03 Dose: 5 mg Nystatin (Nystatin Oral Suspension -) 500,000 units PO Q6HPO [facility] Last Admin: 02/09/19 05:46 Dose: 500,000 units Oxycodone HCl (Roxicodone -) 10 mg PO Q6H PRN PRN Reason: PAIN LEVEL 6-10 Last Admin: 02/09/19 10:10 Dose: 10 mg Prednisone (Deltasone -) 10 mg PO DAILY [facility] Last Admin: 02/09/19 09:05 Dose: 10 mg Sitagliptin Phosphate (Januvia -) 50 mg PO DAILY@0700 [facility] Last Admin: 02/09/19 06:00 Dose: 50 mg Verapamil HCl (Calan -) 80 mg PO TID [facility] Last Admin: 02/09/19 05:45 Dose: 80 mg - Objective Vital Signs: Vital Signs Temperature 98.3 F 02/09/19 05:50 Pulse Rate 91 H 02/09/19 05:50 Respiratory Rate 2 L 02/09/19 05:50 Blood Pressure 166/96 02/09/19 05:50 O2 Sat by Pulse Oximetry (%) 97 02/08/19 21:00 Constitutional: Yes: No Distress, Calm Eyes: Yes: Conjunctiva Clear HENT: Yes: Atraumatic Cardiovascular: Yes: Pulse Irregular Respiratory: Yes: Regular, Diminished Gastrointestinal: Yes: Normal Bowel Sounds, Soft, Abdomen, Obese Musculoskeletal: Yes: Muscle Weakness Extremities: Yes: WNL Edema: Yes (b/l lower extremity) Neurological: Yes: Alert, Oriented Psychiatric: Yes: Alert, Oriented Labs: CBC, BMP 02/08/19 05:51 02/09/19 05:40 INR, PTT INR 1.30 (0.83-1.09) H 01/31/19 13:49 Microbiology 02/03/19 13:15 Blood - Peripheral Venous Blood Culture - Final NO GROWTH AFTER 5 DAYS INCUBATION 02/03/19 13:20 Blood - Peripheral Venous Blood Culture - Final NO GROWTH AFTER 5 DAYS INCUBATION 02/03/19 13:50 Urine For Antigen Detection Legionella Antigen - Final 02/03/19 13:50 Urine For Antigen Detection Streptococcus pneumoniae Antigen (M - Final Problem List - Problems (1) Atrial fibrillation with rapid ventricular response Assessment/Plan: -tele monitoring -cardiology on board -Amiodarone -Verapimil -Metoprolol -Eliquis Code(s): I48.91 - UNSPECIFIED ATRIAL FIBRILLATION (2) Leg edema Assessment/Plan: -Furosemide -1L fluid restriction -daily weights -cardiology on board Code(s): R60.0 - LOCALIZED EDEMA (3) COPD (chronic obstructive pulmonary disease) Assessment/Plan: -Pulm on board -bronchodilators -prednisone -O2 via NC -keep SpO2 >90% -Symbicort Code(s): J44.9 - CHRONIC OBSTRUCTIVE PULMONARY DISEASE, UNSPECIFIED Qualifiers: COPD type: COPD with acute exacerbation Qualified Code(s): J44.1 - Chronic obstructive pulmonary disease with (acute) exacerbation (4) JOSEPH (acute kidney injury) Assessment/Plan: -BUN/Cr 33/1.5 -renal on board -monitor renal function daily Code(s): N17.9 - ACUTE KIDNEY FAILURE, UNSPECIFIED (5) Acute and chronic respiratory failure Assessment/Plan: -Pulm consult -bronchodilators -prednisone -O2 via NC -keep SpO2 >90% -Symbicort Code(s): J96.20 - ACUTE AND CHR RESP FAILURE, UNSP W HYPOXIA OR HYPERCAPNIA (6) Hypertension Assessment/Plan: -Hydralazine -low Na diet Code(s): I10 - ESSENTIAL (PRIMARY) HYPERTENSION (7) Thrush Assessment/Plan: -nystatin Code(s): B37.0 - CANDIDAL STOMATITIS (8) Abnormal CT of the chest Assessment/Plan: -ID on board -to complete antibiotics today -afebrile -WBC 7.3 Code(s): R93.89 - ABNORMAL FINDINGS ON DX IMAGING OF OTH BODY STRUCTURES (9) Hypokalemia Assessment/Plan: -K 2.7 -KCL 40mEq po x 1 dose, KCL 10mEq IVPB x 3 doses -monitor electrolytes and repelete as needed Code(s): E87.6 - HYPOKALEMIA Assessment/Plan see problem list dvt ppx
--- NOTE | 2019-02-09 14:37 | PN ---
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, Physician History of Present Illness: Pt seen and examined at bedside. She is awake and alert. She denies shortness of breath. - Current Medication List Current Medications: Active Medications Acetaminophen (Tylenol -) 650 mg PO Q6H PRN PRN Reason: PAIN LEVEL 6-10 Last Admin: 02/09/19 10:09 Dose: 650 mg Amiodarone HCl (Cordarone -) 400 mg PO TID [facility] Last Admin: 02/09/19 05:45 Dose: 400 mg Apixaban (Eliquis -) 5 mg PO BID [facility] Last Admin: 02/09/19 09:04 Dose: 5 mg Budesonide/Formoterol Fumarate (Symbicort 80/4.5mcg -) 2 puff IH BID [facility] Last Admin: 02/09/19 09:06 Dose: 2 puff Bupropion HCl (Wellbutrin Xl -) 300 mg PO DAILY [facility] Ergocalciferol (Drisdol -) 50,000 unit PO Foster@1000 [facility] Last Admin: 02/07/19 09:40 Dose: 50,000 unit Gabapentin (Neurontin -) 300 mg PO TID [facility] Last Admin: 02/09/19 05:45 Dose: 300 mg Hydroxyzine Pamoate (Vistaril -) 50 mg PO DAILY [facility] Last Admin: 02/09/19 09:04 Dose: 50 mg Insulin Aspart (Novolog Vial Sliding Scale -) 1 vial SQ ACHS [facility]; Protocol Last Admin: 02/09/19 12:20 Dose: 6 units Levalbuterol HCl (Xopenex) 0.31 mg IH Q8H PRN PRN Reason: ASTHMA Last Admin: 02/05/19 21:29 Dose: 0.31 mg Metoprolol Tartrate (Lopressor -) 200 mg PO BID [facility] Last Admin: 02/09/19 09:05 Dose: 200 mg Metoprolol Tartrate (Lopressor Injection -) 5 mg IVPUSH Q4H PRN PRN Reason: HYPERTENSION Last Admin: 02/08/19 05:03 Dose: 5 mg Nystatin (Nystatin Oral Suspension -) 500,000 units PO Q6HPO [facility] Last Admin: 02/09/19 05:46 Dose: 500,000 units Oxycodone HCl (Roxicodone -) 10 mg PO Q6H PRN PRN Reason: PAIN LEVEL 6-10 Last Admin: 02/09/19 10:10 Dose: 10 mg Prednisone (Deltasone -) 10 mg PO DAILY [facility] Last Admin: 02/09/19 09:05 Dose: 10 mg Sitagliptin Phosphate (Januvia -) 50 mg PO DAILY@0700 [facility] Last Admin: 02/09/19 06:00 Dose: 50 mg Verapamil HCl (Calan -) 80 mg PO TID [facility] Last Admin: 02/09/19 05:45 Dose: 80 mg - Objective Vital Signs: Vital Signs Temperature 98.3 F 02/09/19 05:50 Pulse Rate 91 H 02/09/19 05:50 Respiratory Rate 2 L 02/09/19 05:50 Blood Pressure 166/96 02/09/19 05:50 O2 Sat by Pulse Oximetry (%) 97 02/08/19 21:00 Constitutional: Yes: Calm Eyes: Yes: Conjunctiva Clear HENT: Yes: Atraumatic Neck: Yes: Supple Cardiovascular: Yes: S1, S2 Respiratory: Yes: On Nasal O2 Gastrointestinal: Yes: Soft Edema: Yes Edema: LLE: 2+, RLE: 2+ Neurological: Yes: Oriented Psychiatric: Yes: Oriented Labs: CBC, BMP 02/08/19 05:51 02/09/19 05:40 INR, PTT INR 1.30 (0.83-1.09) H 01/31/19 13:49 Problem List - Problems (1) CHF exacerbation Code(s): I50.9 - HEART FAILURE, UNSPECIFIED (2) CKD (chronic kidney disease) Code(s): N18.9 - CHRONIC KIDNEY DISEASE, UNSPECIFIED (3) Hypertension Code(s): I10 - ESSENTIAL (PRIMARY) HYPERTENSION Assessment/Plan Current Medications Generic Name Dose Route Start Last Admin Trade Name Freq PRN Reason Stop Dose Admin Acetaminophen 650 mg 02/04/19 21:10 02/09/19 10:09 Tylenol - PO 650 mg Q6H PRN Administration PAIN LEVEL 6-10 Amiodarone HCl 400 mg 02/04/19 22:00 02/09/19 05:45 Cordarone - PO 400 mg TID [facility] Administration Apixaban 5 mg 02/04/19 22:00 02/09/19 09:04 Eliquis - PO 5 mg BID [facility] Administration Budesonide/Formoterol Fumarate 2 puff 02/04/19 22:00 02/09/19 09:06 Symbicort 80/4.5mcg - IH 2 puff BID [facility] Administration Bupropion HCl 300 mg 02/10/19 10:00 Wellbutrin Xl - PO DAILY [facility] Ergocalciferol 50,000 unit 02/07/19 10:00 02/07/19 09:40 Drisdol - PO 50,000 unit Foster@1000 [facility] Administration Gabapentin 300 mg 02/04/19 22:00 02/09/19 05:45 Neurontin - PO 300 mg TID [facility] Administration Hydroxyzine Pamoate 50 mg 02/05/19 10:00 02/09/19 09:04 Vistaril - PO 50 mg DAILY [facility] Administration Insulin Aspart 1 vial 02/04/19 22:00 02/09/19 12:20 Novolog Vial Sliding Scale - SQ 6 units ACHS [facility] Administration Protocol Levalbuterol HCl 0.31 mg 02/04/19 21:10 02/05/19 21:29 Xopenex IH 0.31 mg Q8H PRN Administration ASTHMA Metoprolol Tartrate 200 mg 02/04/19 22:00 02/09/19 09:05 Lopressor - PO 200 mg BID [facility] Administration Metoprolol Tartrate 5 mg 02/04/19 21:10 02/08/19 05:03 Lopressor Injection - IVPUSH 5 mg Q4H PRN Administration HYPERTENSION Nystatin 500,000 units 02/05/19 00:00 02/09/19 05:46 Nystatin Oral Suspension - PO 500,000 units Q6HPO [facility] Administration Oxycodone HCl 10 mg 02/04/19 21:10 02/09/19 10:10 Roxicodone - PO 10 mg Q6H PRN Administration PAIN LEVEL 6-10 Prednisone 10 mg 02/08/19 10:00 02/09/19 09:05 Deltasone - PO 10 mg DAILY [facility] Administration Sitagliptin Phosphate 50 mg 02/05/19 07:00 02/09/19 06:00 Januvia - PO 50 mg DAILY@0700 [facility] Administration Verapamil HCl 80 mg 02/04/19 22:00 02/09/19 05:45 Calan - PO 80 mg TID [facility] Administration Impression 1. CKD 2. CHF 3. a-fib 4. lower ext edema 5. COPD 6. active smoker Plan - replace potassium - hold lasix - recall cardiology for follow up - hold metolazone dose - pt still with edema - ccb may be contributing to edema - ua neg for blood or protein
[2019-02-09 17:39] LABS: ANION GAP 8 MMOL/L (8-16); BLOOD UREA NITROGEN 36 mg/dL (7-18); CALCIUM 8.8 mg/dL (8.5-10.1); CHLORIDE 87 mmol/L (98-107); CO2 > 45 mmol/L (21-32); CREATININE 1.6 mg/dL (0.55-1.3); GLUCOSE,RANDOM 137 mg/dL (74-106); POTASSIUM 3.5 mmol/L (3.5-5.1); SODIUM 140 mmol/L (136-145)
[2019-02-10 00:11] VITALS: BMI 31.8
[2019-02-10] MEDS: oxyCODONE HCL 5 MG TABLET PO PRN ×2 (04:49→13:06)
[2019-02-10] MEDS: AMIODARONE HCL 200 MG TABLET (FP) PO SCH (06:02)
[2019-02-10] MEDS: NYSTATIN 500,000 UNITS/5 ML SUSPENSION PO SCH ×2 (06:02→13:08)
[2019-02-10] MEDS: GABAPENTIN 300 MG CAPSULE (FP) PO SCH (06:02)
[2019-02-10] MEDS: sitaGLIPtin PHOSPHATE 50 MG TABLET PO SCH (06:03)
[2019-02-10] MEDS: VERAPAMIL HCL 80 MG TABLET PO SCH (06:03)
[2019-02-10] MEDS: INSULIN SLIDING SCALE (NOVOLOG) 1 VIAL SQ SCH ×2 (06:11→11:03)
[2019-02-10 06:15] VITALS: TEMP 98.9
[2019-02-10 08:48] LABS: ALK PHOS 68 U/L (45-117); ANION GAP 7 MMOL/L (8-16); BILIRUBIN,TOTAL 0.8 mg/dL (0.2-1); BLOOD UREA NITROGEN 28 mg/dL (7-18); CALCIUM 8.9 mg/dL (8.5-10.1); CHLORIDE 88 mmol/L (98-107); CO2 > 45 mmol/L (21-32); CREATININE 1.3 mg/dL (0.55-1.3); GLUCOSE,RANDOM 103 mg/dL (74-106); MAGNESIUM 1.9 mg/dL (1.8-2.4); POTASSIUM 3.3 mmol/L (3.5-5.1); SGOT/AST 12 U/L (15-37); SGPT/ALT 21 U/L (13-61); SODIUM 140 mmol/L (136-145)
[2019-02-10] MEDS ORDERED: POTASSIUM CHLORIDE TABS 20 MEQ TABLET.ER (FP) PO ONE (09:30)
[2019-02-10] MEDS: METOPROLOL TARTRATE 50 MG TABLET (FP) PO SCH (09:34)
[2019-02-10] MEDS: hydrOXYzine PAMOATE 50 MG CAPSULE (FP) PO SCH (09:35)
[2019-02-10] MEDS: predniSONE 10 MG TABLET (UD) PO SCH (09:35)
[2019-02-10] MEDS: APIXABAN 5 MG TABLET PO SCH (09:36)
[2019-02-10 10:10] VITALS: BP 148/79; PULSE 78
--- NOTE | 2019-02-10 10:46 | PN ---
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, Physician History of Present Illness: pulmonary alert,no c/o sob,-cough,-cp - Current Medication List Current Medications: Active Medications Acetaminophen (Tylenol -) 650 mg PO Q6H PRN PRN Reason: PAIN LEVEL 6-10 Last Admin: 02/09/19 10:09 Dose: 650 mg Amiodarone HCl (Cordarone -) 400 mg PO TID [facility] Last Admin: 02/10/19 06:02 Dose: 400 mg Apixaban (Eliquis -) 5 mg PO BID [facility] Last Admin: 02/10/19 09:36 Dose: 5 mg Budesonide/Formoterol Fumarate (Symbicort 80/4.5mcg -) 2 puff IH BID [facility] Last Admin: 02/09/19 23:34 Dose: 2 puff Bupropion HCl (Wellbutrin Xl -) 300 mg PO DAILY [facility] Last Admin: 02/10/19 09:36 Dose: 300 mg Ergocalciferol (Drisdol -) 50,000 unit PO Foster@1000 [facility] Last Admin: 02/07/19 09:40 Dose: 50,000 unit Gabapentin (Neurontin -) 300 mg PO TID [facility] Last Admin: 02/10/19 06:02 Dose: 300 mg Hydroxyzine Pamoate (Vistaril -) 50 mg PO DAILY [facility] Last Admin: 02/10/19 09:35 Dose: 50 mg Insulin Aspart (Novolog Vial Sliding Scale -) 1 vial SQ [facility]; Protocol Last Admin: 02/10/19 06:11 Dose: Not Given Metoprolol Tartrate (Lopressor -) 200 mg PO BID [facility] Last Admin: 02/10/19 09:34 Dose: 200 mg Metoprolol Tartrate (Lopressor Injection -) 5 mg IVPUSH Q4H PRN PRN Reason: HYPERTENSION Last Admin: 02/08/19 05:03 Dose: 5 mg Nystatin (Nystatin Oral Suspension -) 500,000 units PO Q6HPO [facility] Last Admin: 02/10/19 06:02 Dose: 500,000 units Oxycodone HCl (Roxicodone -) 10 mg PO Q6H PRN PRN Reason: PAIN LEVEL 6-10 Last Admin: 02/10/19 04:49 Dose: 10 mg Prednisone (Deltasone -) 10 mg PO DAILY [facility] Last Admin: 02/10/19 09:35 Dose: 10 mg Sitagliptin Phosphate (Januvia -) 50 mg PO DAILY@0700 [facility] Last Admin: 02/10/19 06:03 Dose: 50 mg Verapamil HCl (Calan -) 80 mg PO TID [facility] Last Admin: 02/10/19 06:03 Dose: 80 mg - Objective Vital Signs: Vital Signs Temperature 98.9 F 02/10/19 09:00 Pulse Rate 78 02/10/19 09:00 Respiratory Rate 20 02/10/19 09:00 Blood Pressure 148/79 02/10/19 09:00 O2 Sat by Pulse Oximetry (%) 95 02/10/19 09:57 Constitutional: Yes: Well Nourished, Calm Eyes: Yes: WNL HENT: Yes: WNL Neck: Yes: WNL Cardiovascular: Yes: Pulse Irregular, S1, S2 Respiratory: Yes: CTA Bilaterally Gastrointestinal: Yes: Normal Bowel Sounds, Soft Extremities: Yes: WNL Edema: Yes Labs: [facility] 02/10/19 06:33 Problem List - Problems (1) Chronic respiratory failure with hypoxia and hypercapnia Code(s): J96.11 - CHRONIC RESPIRATORY FAILURE WITH HYPOXIA; J96.12 - CHRONIC RESPIRATORY FAILURE WITH HYPERCAPNIA (2) Atrial fibrillation with rapid ventricular response Code(s): I48.91 - UNSPECIFIED ATRIAL FIBRILLATION (3) Leg edema Code(s): R60.0 - LOCALIZED EDEMA (4) COPD (chronic obstructive pulmonary disease) Code(s): J44.9 - CHRONIC OBSTRUCTIVE PULMONARY DISEASE, UNSPECIFIED Qualifiers: COPD type: COPD with acute exacerbation Qualified Code(s): J44.1 - Chronic obstructive pulmonary disease with (acute) exacerbation (5) Cigarette nicotine dependence Code(s): F17.200 - NICOTINE DEPENDENCE, UNSPECIFIED, UNCOMPLICATED (6) Diabetes Code(s): E11.9 - TYPE 2 DIABETES MELLITUS WITHOUT COMPLICATIONS Qualifiers: Diabetes mellitus type: type 2 Assessment/Plan IMP AFIB WITH RVR IMPROVED COPD O2 DEPENDENT WITH CHRONIC HYPOXEMIC/HYPERCAPNEIC RESPIRATORY FAILURE DIASTOLIC HF IMPROVING CKD TOBACCO ABUSE LOWER EXTREMITY EDEMA DM BILATERAL INFILTRATES improved PLAN INHALED BRONCHODILATORS XOPENEX O2 RATE CONTROL PER CARDIOLOGY AMIODARONE MONITOR LYESTEFANÍA,RENAL FUNCTION REPLETE KATHERINE ROLLE Problem List - Problems (1) Chronic respiratory failure with hypoxia and hypercapnia Code(s): J96.11 - CHRONIC RESPIRATORY FAILURE WITH HYPOXIA; J96.12 - CHRONIC RESPIRATORY FAILURE WITH HYPERCAPNIA (2) Atrial fibrillation with rapid ventricular response Code(s): I48.91 - UNSPECIFIED ATRIAL FIBRILLATION (3) Leg edema Code(s): R60.0 - LOCALIZED EDEMA (4) COPD (chronic obstructive pulmonary disease) Code(s): J44.9 - CHRONIC OBSTRUCTIVE PULMONARY DISEASE, UNSPECIFIED Qualifiers: COPD type: COPD with acute exacerbation Qualified Code(s): J44.1 - Chronic obstructive pulmonary disease with (acute) exacerbation (5) Cigarette nicotine dependence Code(s): F17.200 - NICOTINE DEPENDENCE, UNSPECIFIED, UNCOMPLICATED (6) Diabetes Code(s): E11.9 - TYPE 2 DIABETES MELLITUS WITHOUT COMPLICATIONS Qualifiers: Diabetes mellitus type: type 2
--- NOTE | 2019-02-10 11:15 | PN ---
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, Physician History of Present Illness: Pt seen and examined at bedside. She denies shortness of breath. - Current Medication List Current Medications: Active Medications Acetaminophen (Tylenol -) 650 mg PO Q6H PRN PRN Reason: PAIN LEVEL 6-10 Last Admin: 02/09/19 10:09 Dose: 650 mg Amiodarone HCl (Cordarone -) 400 mg PO TID [facility] Last Admin: 02/10/19 06:02 Dose: 400 mg Apixaban (Eliquis -) 5 mg PO BID [facility] Last Admin: 02/10/19 09:36 Dose: 5 mg Budesonide/Formoterol Fumarate (Symbicort 80/4.5mcg -) 2 puff IH BID [facility] Last Admin: 02/09/19 23:34 Dose: 2 puff Bupropion HCl (Wellbutrin Xl -) 300 mg PO DAILY [facility] Last Admin: 02/10/19 09:36 Dose: 300 mg Ergocalciferol (Drisdol -) 50,000 unit PO Foster@1000 [facility] Last Admin: 02/07/19 09:40 Dose: 50,000 unit Gabapentin (Neurontin -) 300 mg PO TID [facility] Last Admin: 02/10/19 06:02 Dose: 300 mg Hydroxyzine Pamoate (Vistaril -) 50 mg PO DAILY [facility] Last Admin: 02/10/19 09:35 Dose: 50 mg Insulin Aspart (Novolog Vial Sliding Scale -) 1 vial SQ ACHS [facility]; Protocol Last Admin: 02/10/19 06:11 Dose: Not Given Metoprolol Tartrate (Lopressor -) 200 mg PO BID [facility] Last Admin: 02/10/19 09:34 Dose: 200 mg Metoprolol Tartrate (Lopressor Injection -) 5 mg IVPUSH Q4H PRN PRN Reason: HYPERTENSION Last Admin: 02/08/19 05:03 Dose: 5 mg Nystatin (Nystatin Oral Suspension -) 500,000 units PO Q6HPO [facility] Last Admin: 02/10/19 06:02 Dose: 500,000 units Oxycodone HCl (Roxicodone -) 10 mg PO Q6H PRN PRN Reason: PAIN LEVEL 6-10 Last Admin: 02/10/19 04:49 Dose: 10 mg Prednisone (Deltasone -) 10 mg PO DAILY [facility] Last Admin: 02/10/19 09:35 Dose: 10 mg Sitagliptin Phosphate (Januvia -) 50 mg PO DAILY@0700 [facility] Last Admin: 02/10/19 06:03 Dose: 50 mg Verapamil HCl (Calan -) 80 mg PO TID [facility] Last Admin: 02/10/19 06:03 Dose: 80 mg - Objective Vital Signs: Vital Signs Temperature 98.9 F 02/10/19 09:00 Pulse Rate 78 02/10/19 09:00 Respiratory Rate 20 02/10/19 09:00 Blood Pressure 148/79 02/10/19 09:00 O2 Sat by Pulse Oximetry (%) 95 02/10/19 09:57 Constitutional: Yes: Calm Eyes: Yes: Conjunctiva Clear HENT: Yes: Atraumatic Neck: Yes: Supple Cardiovascular: Yes: S1, S2 Respiratory: Yes: CTA Bilaterally Gastrointestinal: Yes: Soft Genitourinary: Yes: WNL Edema: Yes Edema: LLE: 2+, RLE: 2+ Neurological: Yes: Oriented Psychiatric: Yes: Oriented Labs: CBC, BMP 02/08/19 05:51 02/10/19 06:33 INR, PTT INR 1.30 (0.83-1.09) H 01/31/19 13:49 Problem List - Problems (1) CHF exacerbation Code(s): I50.9 - HEART FAILURE, UNSPECIFIED (2) CKD (chronic kidney disease) Code(s): N18.9 - CHRONIC KIDNEY DISEASE, UNSPECIFIED (3) Hypertension Code(s): I10 - ESSENTIAL (PRIMARY) HYPERTENSION Assessment/Plan Current Medications Generic Name Dose Route Start Last Admin Trade Name Freq PRN Reason Stop Dose Admin Acetaminophen 650 mg 02/04/19 21:10 02/09/19 10:09 Tylenol - PO 650 mg Q6H PRN Administration PAIN LEVEL 6-10 Amiodarone HCl 400 mg 02/04/19 22:00 02/10/19 06:02 Cordarone - PO 400 mg TID [facility] Administration Apixaban 5 mg 02/04/19 22:00 02/10/19 09:36 Eliquis - PO 5 mg BID [facility] Administration Budesonide/Formoterol Fumarate 2 puff 02/04/19 22:00 02/09/19 23:34 Symbicort 80/4.5mcg - IH 2 puff BID [facility] Administration Bupropion HCl 300 mg 06/05/19 10:00 02/10/19 09:36 Wellbutrin Xl - PO 300 mg DAILY [facility] Administration Ergocalciferol 50,000 unit 02/07/19 10:00 02/07/19 09:40 Drisdol - PO 50,000 unit Foster@1000 [facility] Administration Gabapentin 300 mg 02/04/19 22:00 02/10/19 06:02 Neurontin - PO 300 mg TID [facility] Administration Hydroxyzine Pamoate 50 mg 02/05/19 10:00 02/10/19 09:35 Vistaril - PO 50 mg DAILY [facility] Administration Insulin Aspart 1 vial 02/04/19 22:00 02/10/19 06:11 Novolog Vial Sliding Scale - SQ Not Given ACHS [facility] Protocol Metoprolol Tartrate 200 mg 02/04/19 22:00 02/10/19 09:34 Lopressor - PO 200 mg BID [facility] Administration Metoprolol Tartrate 5 mg 02/04/19 21:10 02/08/19 05:03 Lopressor Injection - IVPUSH 5 mg Q4H PRN Administration HYPERTENSION Nystatin 500,000 units 02/05/19 00:00 02/10/19 06:02 Nystatin Oral Suspension - PO 500,000 units Q6HPO [facility] Administration Oxycodone HCl 10 mg 02/04/19 21:10 02/10/19 04:49 Roxicodone - PO 10 mg Q6H PRN Administration PAIN LEVEL 6-10 Prednisone 10 mg 02/08/19 10:00 02/10/19 09:35 Deltasone - PO 10 mg DAILY [facility] Administration Sitagliptin Phosphate 50 mg 02/05/19 07:00 02/10/19 06:03 Januvia - PO 50 mg DAILY@0700 [facility] Administration Verapamil HCl 80 mg 02/04/19 22:00 02/10/19 06:03 Calan - PO 80 mg TID [facility] Administration Impression 1. CKD 2. CHF 3. a-fib 4. lower ext edema 5. COPD 6. active smoker Plan - cardio follow up pending - replace potassium - ccb may be contributing to edema - ua neg for blood or protein
[2019-02-10] MEDS: BUDESONIDE/FORMETEROL FUMARATE 80/4.5 mcg INHALER IH SCH (11:21)
--- NOTE | 2019-02-10 11:39 | DS ---
Physical Examination Vital Signs: Vital Signs Temperature 98.9 F 02/10/19 09:00 Pulse Rate 78 02/10/19 09:00 Respiratory Rate 20 02/10/19 09:00 Blood Pressure 148/79 02/10/19 09:00 O2 Sat by Pulse Oximetry (%) 95 02/10/19 09:57 Constitutional: Yes: No Distress Eyes: Yes: WNL HENT: Yes: WNL Neck: Yes: WNL Cardiovascular: Yes: Regular Rate and Rhythm Respiratory: Yes: CTA Bilaterally Gastrointestinal: Yes: Normal Bowel Sounds Renal/: Yes: WNL Musculoskeletal: Yes: Muscle Weakness Extremities: Yes: WNL Edema: No Peripheral Pulses WNL: Yes Integumentary: Yes: Other Wound/Incision: Yes: Other Neurological: Yes: Pre-Existing Deficit ...Motor Strength: LLE, RLE Psychiatric: Yes: Other Labs: CBC, BMP 02/08/19 05:51 02/10/19 06:33 Discharge Summary Reason For Visit: COPD,ACUTE ON CHRONIC DIASTOLIC CHF, A-FIB Current Active Problems Abnormal CT of the chest (Acute) Atrial fibrillation with rapid ventricular response (Acute) Chronic respiratory failure with hypoxia and hypercapnia (Acute) Hypokalemia (Acute) Leg edema (Acute) Penicillin allergy (Acute) Poor dentition (Acute) Thrush (Acute) COPD (chronic obstructive pulmonary disease) (Chronic) Procedures: Principal: CT SCANS Hospital Course: ADMITTED FOR CHF AND HTN MALIGNANT TYPE TREATED WITH IV DIURETICS, BP MEDICATIONS, COPD EXACERBATION. TREATED WITH STEROIDS AND 02 SUPPORT. Condition: Good - Instructions Diet, Activity, Other Instructions: LOW SODIUM OUTPATIENT FOLLOW UP 1 WEEK WITH PMD Disposition: VNS/HOME HEALTH CARE - Home Medications Comprehensive Discharge Medication List: Ambulatory Orders Albuterol Sulfate Inhaler - [Ventolin HFA Inhaler -] 1 inh IH QID PRN 05/21/18 Budesonide/Formeterol Fumarate [SYMBICORT 80/4.5mcg -] 2 puff IH BID #1 inhaler 12/28/18 Bupropion HCl [Wellbutrin Xl -] 150 mg PO DAILY tab.sr.24h 12/28/18 Gabapentin [Neurontin -] 300 mg PO TID capsule 01/15/19 Cholecalciferol (Vitamin D3) [Vitamin D -] 50,000 unit PO WEEKLY 01/22/19 Linagliptin [Tradjenta] 5 mg PO DAILY 01/22/19 Oxycodone HCl/Acetaminophen [Endocet 10-325 mg Tablet] 1 each PO TID 01/22/19 hydrOXYzine PAMOATE [Vistaril -] 50 mg PO DAILY 01/22/19 Apixaban [Eliquis -] 5 mg PO BID #30 tablet MDD 2 01/29/19 Furosemide [Lasix -] 40 mg PO BID@0600,1400 #30 tablet MDD 2 01/29/19 Atenolol [Tenormin -] 50 mg PO BID 01/31/19
[2019-02-12 15:16] LABS: SERUM IRON SATURATION 45 % (15-55); TOTAL IRON BINDING CAPACITY 197 ug/dL (250-450); UIBC 109 ug/dL (131-425)
== END 2019-02-10 13:24 | disposition home health service (06) | DRG 201 ==
LOC: JER 13:43 → JERBED 14:08 → J4W 18:45 → JICU 02-03 14:50 → J4W 02-04 20:43
PROVIDERS: ADMIT Family Medicine; ATTEND Family Medicine
DX: I48.1 Persistent atrial fibrillation (principal); N17.9 Acute kidney failure, unspecified; J96.12 Chronic respiratory failure with hypercapnia; J96.11 Chronic respiratory failure with hypoxia; G92 Toxic encephalopathy; I50.33 Acute on chronic diastolic (congestive) heart failure; J18.9 Pneumonia, unspecified organism; I13.0 Hypertensive heart and chronic kidney disease with heart failure and stage 1 through stage 4 chronic kidney disease, or unspecified chronic kidney disease; E11.22 Type 2 diabetes mellitus with diabetic chronic kidney disease; E11.40 Type 2 diabetes mellitus with diabetic neuropathy, unspecified; B37.0 Candidal stomatitis; N18.9 Chronic kidney disease, unspecified; Z88.0 Allergy status to penicillin; Z99.81 Dependence on supplemental oxygen; Z79.01 Long term (current) use of anticoagulants; E78.00 Pure hypercholesterolemia, unspecified; E03.9 Hypothyroidism, unspecified; E66.9 Obesity, unspecified; Z68.31 Body mass index [BMI] 31.0-31.9, adult; K08.9 Disorder of teeth and supporting structures, unspecified; F41.9 Anxiety disorder, unspecified; E87.6 Hypokalemia; G47.00 Insomnia, unspecified; G56.01 Carpal tunnel syndrome, right upper limb; G25.81 Restless legs syndrome
CPT/HCPCS: 36415; 36600; 71045-TC-FY; 71250-TC; 80048; 80053; 80061; 80307; 82140; 82550; 82607; 82803; 82962; 83036; 83540; 83550; 83721; 83735; 83880; 84100; 84436; 84443; 84484; 85025; 85027; 85610; 87040; 87899; 93005; 93010; 94640; 99285-25; G0480; J7030

== ENCOUNTER 2019-06-23 11:53 | Inpatient (IN) | payer OTHER ==
[2019-06-23] MEDS ORDERED: NITROGLYCERIN 25MG/D5W 250ML 25 MG/250 ML ML IVPB ONE (12:20)
[2019-06-23] MEDS ORDERED: ALBUTEROL SO4 2.5/IPRATROPIUM 0.5 INH SOL 3 ML VIAL.NEB. NEB ONE ×2 (12:26→13:01)
[2019-06-23] MEDS: NITROGLYCERIN 25MG/D5W 250ML 25 MG/250 ML ML IVPB SCH (12:43)
--- NOTE | 2019-06-23 12:54 | EKG ---
Test Reason : Blood Pressure : / mmHG Vent. Rate : 083 BPM Atrial Rate : 074 BPM P-R Int : 000 ms QRS Dur : 112 ms QT Int : 378 ms P-R-T Axes : 000 -54 133 degrees QTc Int : 444 ms ATRIAL FIBRILLATION LEFT ANTERIOR FASCICULAR BLOCK MODERATE VOLTAGE CRITERIA FOR LVH, MAY BE NORMAL VARIANT ABNORMAL ECG WHEN COMPARED WITH ECG OF 24-APR-2019 14:28, PREVIOUS ECG HAS UNDETERMINED RHYTHM, NEEDS REVIEW T WAVE INVERSION LESS EVIDENT IN LATERAL LEADS Confirmed by CLIFF MCDANIEL, BELLA ([id number]) on 06/23/2019 12:53:29 PM Referred By: Confirmed By:BELLA CORONADO MD
[2019-06-23 13:03] LABS: BASO % 1.2 % (0-2.0); EOS % 0.5 % (0-4.5); HEMATOCRIT 37.2 % (32.4-45.2); HEMOGLOBIN 11.8 GM/dL (10.7-15.3); LYMPH % 14.6 % (8-40); MCH 28.6 pg (25.7-33.7); MCHC 31.7 g/dl (32.0-36.0); MEAN CELL VOLUME 90.3 fl (80-96); MEAN PLT VOLUME 10.4 fl (7.5-11.1); MONO % 11.5 % (3.8-10.2); NEUT % 72.2 % (42.8-82.8); PLATELET COUNT 139 K/MM3 (134-434); RBC 4.11 M/mm3 (3.60-5.2); RDW 18.5 % (11.6-15.6); WHITE BLOOD COUNT 6.2 K/mm3 (4.0-10.0)
[2019-06-23 13:24] LABS: INR 1.58 (0.83-1.09); PROTHROMBIN TIME (PATIENT) 18.7 SEC (9.7-13.0)
[2019-06-23 13:41] LABS: ALBUMIN 3.6 g/dl (3.4-5.0); BILIRUBIN,TOTAL 2.1 mg/dL (0.2-1); BLOOD UREA NITROGEN 17.5 mg/dL (7-18); CALCIUM 9.2 mg/dL (8.5-10.1); CREATININE 1.3 mg/dL (0.55-1.3); POTASSIUM 3.9 mmol/L (3.5-5.1); TOT PROT 7.7 g/dl (6.4-8.2)
[2019-06-23] MEDS ORDERED: FUROSEMIDE 40 MG/4 ML INJECTABLE VIAL IVPUSH ONE (14:09)
[2019-06-23] MEDS ORDERED: methylPREDNISolone NA SUCC 125 MG/2 ML VIAL IVPUSH ONE (14:09)
[2019-06-23] MEDS ORDERED: methylPREDNISolone NA SUCC 125 MG/2 ML VIAL ONE (14:12)
[2019-06-23] MEDS ORDERED: FUROSEMIDE 40 MG/4 ML INJECTABLE VIAL ONE (14:12)
[2019-06-23] MEDS ORDERED: hydrALAZINE HCL 50 MG TABLET (FP) PO ONE (15:31)
[2019-06-23] MEDS ORDERED: hydrALAZINE HCL 25 MG TABLET (FP) ONE (16:14)
--- NOTE | 2019-06-23 16:58 | PDOC ---
Documentation entered by Cyndee Drake SCRIBE, acting as scribe for Miguel Naranjo MD. Miguel Naranjo MD: This documentation has been prepared by the Noelle tilley Sammi, SCRIBE, under my direction and personally reviewed by me in its entirety. I confirm that the documentation accurately reflects all work, treatment, procedures, and medical decision making performed by me. History of Present Illness - General Chief Complaint: Shortness of Breath Stated Complaint: Shortness of Breath - History of Present Illness Initial Comments: 06/23/19 12:31 The patient is a 59 year old female who presents to the emergency department for evaluation of 3-4 days of progressively worsening SOB. She notes her symptoms began when she ran out of her lasix. She reports difficulty breathing when lying down and increase of lower extremity edema and pain. PMH: COPD (home O2 @ 4L) Social history: current smoker (2 cig/day) Past History - Past Medical History Allergies/Adverse Reactions: Allergies Allergy/AdvReac Type Severity Reaction Status Date / Time morphine Allergy Severe Verified 06/23/19 12:17 Penicillins Allergy Severe Hives Verified 06/23/19 12:17 tomato [Tomato] Allergy Unknown Verified 06/23/19 12:17 chocolate AdvReac Unknown Uncoded 06/23/19 12:17 Home Medications: Ambulatory Orders Albuterol Sulfate Inhaler - [Ventolin HFA Inhaler -] 1 inh IH QID PRN 05/21/18 Budesonide/Formeterol Fumarate [SYMBICORT 80/4.5mcg -] 2 puff IH BID #1 inhaler 12/28/18 Bupropion HCl [Wellbutrin Xl -] 150 mg PO DAILY tab.sr.24h 12/28/18 Gabapentin [Neurontin -] 300 mg PO TID capsule 01/15/19 Cholecalciferol (Vitamin D3) [Vitamin D -] 50,000 unit PO WEEKLY 01/22/19 Linagliptin [Tradjenta] 5 mg PO DAILY 01/22/19 Furosemide [Lasix -] 40 mg PO BID@0600,1400 #30 tablet MDD 2 01/29/19 Atenolol [Tenormin -] 50 mg PO BID 01/31/19 Acetaminophen [Tylenol .Regular Strength -] 650 mg PO Q6H PRN tablet 02/10/19 Apixaban [Eliquis -] 2.5 mg PO BID #60 tablet 04/30/19 Lidocaine 5% Patch [Lidoderm -] 1 patch TP DAILY #30 patch 04/30/19 Verapamil HCl [Calan -] 40 mg PO BID #60 tablet 04/30/19 oxyCODONE HCL [Roxicodone -] 5 mg PO Q6H PRN #12 tablet MDD 4 04/30/19 Anemia: No Asthma: Yes Cancer: No Cardiac Disorders: Yes (A-fib) CVA: No COPD: Yes CHF: Yes Dementia: No Diabetes: Yes GI Disorders: No Disorders: Yes HTN: Yes Hypercholesterolemia: Yes Liver Disease: No Seizures: No Thyroid Disease: Yes (Hypothyroid) - Surgical History Abdominal Surgery: No Appendectomy: No Cardiac Surgery: No Cholecystectomy: No Lung Surgery: No Neurologic Surgery: No Orthopedic Surgery: No - Immunization History Td Vaccination: Yes TDAP Vaccination: Yes Immunization Up to Date: Yes - Psycho Social/Smoking Cessation Hx Smoking Status: Yes Smoking History: Never smoked Years of Tobacco Use: 30 Have you smoked in the past 12 months: No Number of Cigarettes Smoked Daily: 4 Cigars Per Day: 0 'Breaking Loose' booklet given: 03/27/18 Hx Alcohol Use: No Drug/Substance Use Hx: No Substance Use Type: None Hx Substance Use Treatment: No Review of Systems - Review of Systems Comments:: 06/23/19 12:32 CONSTITUTIONAL: No fever, no chills, no fatigue CARDIOVASCULAR: No chest pain, no palpitations RESPIRATORY: +SOB. No cough GI: No abdominal pain, no nausea, no vomiting, no constipation, no diarrhea GENITOURINARY: No dysuria, no frequency, no hematuria MUSKULOSKELETAL: +lower extremity edema and pain. No backpain, no joint pain, no myalgias SKIN: No rash NEURO: No headache *Physical Exam - Vital Signs Last Vital Signs Temp Pulse Resp BP Pulse Ox 98.7 F 85 18 224/116 H 85 L 06/23/19 11:55 06/23/19 11:55 06/23/19 11:55 06/23/19 11:55 06/23/19 11:55 - Physical Exam Comments: 06/23/19 16:53 EXAMINATIon: Patient seen and evaluated immediately upon arrival. This H&P is being recorded after admission. CONSTITUTIONAL: The patient is awake and alert, tachypneic and dyspneic, hypoxic on room air at 86%; HEAD: Normocephalic; atraumatic EYES: PERRL; EOM intact ENMT: External appears normal; + poor dentition NECK: Supple; non-tender; no cervical lymphadenopathy CARD: Tachycardic; Normal S1, S2; no murmurs, rubs, or gallops RESP: +Diffuse rhonchi and wheezing bilaterally, more pronounced on the left; ABD: Soft, non-distended; non-tender; no palpable organomegaly, no palpable hernias EXT: +2 pitting edema bilaterally with multiple superficial excoriations; distal pulses intact SKIN: Warm, dry, no rash NEURO: No focal neurological deficiencies. Heart Score/ECG Review - ECG Impressions Comment:: 06/23/19 12:26 atrial fibrillation left anterior fascicular block moderate voltage criteria for LVH, may be normal varian ST & T wave abnormality, consider lateral ischemia abnormal ECG ED Treatment Course - LABORATORY CBC & Chemistry Diagram: 06/23/19 12:45 06/23/19 12:30 - ADDITIONAL ORDERS Additional order review: Laboratory Results 06/23/19 06/23/19 06/23/19 12:45 12:30 12:30 PT with INR 18.70 H INR 1.58 H Sodium 142 Potassium 3.9 Chloride 104 Carbon Dioxide 31 Anion Gap 7 L BUN 17.5 Creatinine 1.3 Est GFR (CKD-EPI)AfAm 51.28 Est GFR (CKD-EPI)NonAf 44.24 Random Glucose 107 H Calcium 9.2 Total Bilirubin 2.1 H AST 20 ALT 15 Alkaline Phosphatase 103 Creatine Kinase Troponin I B-Natriuretic Peptide 19065.6 H Total Protein 7.7 Albumin 3.6 06/23/19 12:30 PT with INR INR Sodium Potassium Chloride Carbon Dioxide Anion Gap BUN Creatinine Est GFR (CKD-EPI)AfAm Est GFR (CKD-EPI)NonAf Random Glucose Calcium Total Bilirubin AST ALT Alkaline Phosphatase Creatine Kinase 58 Troponin I 0.02 B-Natriuretic Peptide Total Protein Albumin 06/23/19 12:45 RBC 4.11 MCV 90.3 MCHC 31.7 L RDW 18.5 H MPV 10.4 Neutrophils % 72.2 Lymphocytes % 14.6 D Monocytes % 11.5 H Eosinophils % 0.5 Basophils % 1.2 - RADIOLOGY Radiology Studies Ordered: Category Date Time Status CHEST X-RAY PORTABLE* [RAD] Stat Radiology 06/23/19 12:25 Completed - Medications Given in the ED: ED Medications Discontinued Medications Generic Name Dose Route Start Last Admin Trade Name Malena PRN Reason Stop Dose Admin Albuterol/Ipratropium 3 amp 06/23/19 12:26 06/23/19 13:29 Duoneb - NEB 06/23/19 12:27 3 amp ONCE ONE Administration Furosemide 80 mg 06/23/19 14:09 06/23/19 14:20 Lasix Injection - IVPUSH 06/23/19 14:10 80 mg ONCE ONE Administration Hydralazine HCl 50 mg 06/23/19 15:31 06/23/19 16:18 Apresoline - PO 06/23/19 15:32 50 mg ONCE ONE Administration Methylprednisolone Sodium Succinate 125 mg 06/23/19 14:09 06/23/19 14:20 Solu-Medrol - IVPUSH 06/23/19 14:10 125 mg ONCE ONE Administration Oxycodone/Acetaminophen 1 combo 06/23/19 14:53 06/23/19 15:20 Percocet 5/325 - PO 06/23/19 14:54 1 combo ONCE ONE Administration Medical Decision Making - Medical Decision Making 06/23/19 16:5Patient 59-year-old female with multiple comorbidities, who presents with signs and symptoms of acute CHF exacerbation superimposed on acute COPD exacerbation. Patient ran out of her Lasix 3 to 4 days previously and has continued to smoke. On initial evaluation, patient is noted to be severely hypertensive, tachypnea, tachycardic and hypoxemic. Will provide supplemental O2; will initiate nitroglycerin drip at 50 mcg/min. Will administer IV Lasix as well as albuterol/Atrovent nebulizer, and Solu-Medrol. Will place Flores catheter for measurement of ins and outs. Likely admission. Discharge - Discharge Information Problems reviewed: Yes Clinical Impression/Diagnosis: Acute exacerbation of COPD with asthma Acute on chronic congestive heart failure Qualifiers: Heart failure type: unspecified Qualified Code(s): I50.9 - Heart failure, unspecified Condition: Fair - Admission Yes - Follow up/Referral Referrals: Rivera Doe [Primary Care Provider] - - Patient Discharge Instructions - Post Discharge Activity
[2019-06-23] MEDS ORDERED: ALBUTEROL SO4 8 GM HFA INHALER IH PRN (17:28)
[2019-06-23] MEDS: oxyCODONE HCL 5 MG TABLET PO PRN (21:21)
[2019-06-23] MEDS: ATENOLOL 50 MG TABLET (FP) PO SCH (21:21)
[2019-06-23] MEDS: GABAPENTIN 300 MG CAPSULE (FP) PO SCH (21:21)
[2019-06-23] MEDS: HEPARIN NA (PORCINE) 5,000 UNITS/ML 1ML VIAL SQ SCH (21:21)
[2019-06-23] MEDS: INSULIN SLIDING SCALE (NOVOLOG) 1 VIAL SQ SCH (21:28)
[2019-06-23] MEDS: VERAPAMIL HCL 40 MG TABLET (FP) PO SCH (21:58)
[2019-06-23] MEDS: LIDOCAINE PATCH REMOVAL MC SCH (21:58)
[2019-06-23] MEDS: BUDESONIDE/FORMETEROL FUMARATE 80/4.5 mcg INHALER IH SCH (21:59)
[2019-06-23] MEDS ORDERED: VERAPAMIL HCL 80 MG TABLET PO SCH (22:00)
[2019-06-23] MEDS ORDERED: APIXABAN 2.5 MG TABLET PO SCH (22:00)
[2019-06-23] MEDS ORDERED: VERAPAMIL HCL 40 MG TABLET (FP) PO SCH (22:00)
[2019-06-24] MEDS: oxyCODONE HCL 5 MG TABLET PO PRN ×3 (05:05→21:20)
[2019-06-24] MEDS: GABAPENTIN 300 MG CAPSULE (FP) PO SCH ×3 (05:05→21:20)
[2019-06-24] MEDS ORDERED: FUROSEMIDE 40 MG TABLET (FP) PO SCH (06:00)
[2019-06-24] MEDS: INSULIN SLIDING SCALE (NOVOLOG) 1 VIAL SQ SCH ×4 (06:15→21:25)
[2019-06-24 08:03] LABS: BASO % 0.3 % (0-2.0); HEMATOCRIT 32.8 % (32.4-45.2); HEMOGLOBIN 10.8 GM/dL (10.7-15.3); LYMPH % 17.3 % (8-40); MCH 29.6 pg (25.7-33.7); MEAN CELL VOLUME 89.7 fl (80-96); MEAN PLT VOLUME 10.3 fl (7.5-11.1); MONO % 4.9 % (3.8-10.2); NEUT % 77.5 % (42.8-82.8); PLATELET COUNT 129 K/MM3 (134-434); RBC 3.65 M/mm3 (3.60-5.2); RDW 18.5 % (11.6-15.6); WHITE BLOOD COUNT 3.4 K/mm3 (4.0-10.0)
[2019-06-24] MEDS ORDERED: PT OWN MED DRAWER 7, Y5N ONE ×2 (08:06→09:24)
[2019-06-24 08:30] LABS: BILIRUBIN,TOTAL 1.1 mg/dL (0.2-1); BLOOD UREA NITROGEN 24.5 mg/dL (7-18); CALCIUM 8.3 mg/dL (8.5-10.1); CREATININE 1.5 mg/dL (0.55-1.3); MAGNESIUM 2.2 mg/dL (1.8-2.4); POTASSIUM 3.7 mmol/L (3.5-5.1); TOT PROT 6.6 g/dl (6.4-8.2)
[2019-06-24] MEDS: LIDOCAINE 5% TOPICAL PATCH TP SCH (09:11)
[2019-06-24] MEDS: HEPARIN NA (PORCINE) 5,000 UNITS/ML 1ML VIAL SQ SCH ×2 (09:12→21:20)
[2019-06-24] MEDS: ATENOLOL 50 MG TABLET (FP) PO SCH ×2 (09:13→21:20)
[2019-06-24] MEDS: BUDESONIDE/FORMETEROL FUMARATE 80/4.5 mcg INHALER IH SCH ×2 (09:14→21:25)
[2019-06-24] MEDS: VERAPAMIL HCL 40 MG TABLET (FP) PO SCH ×2 (09:24→21:23)
[2019-06-24] MEDS ORDERED: FLU VACCINE QUAD 60 MCG/0.5 ML (MDV 19-20) IM ONE (10:00)
--- NOTE | 2019-06-24 12:21 | CON.PULM ---
Consult Consult Specialty:: PULM/CCM Referred by:: CICI Reason for Consultation:: SOB - History of Present Illness Chief Complaint: SOB History of Present Illness: 59 F, O2 dependent COPD (? 4 L NC) and active smoker (reports 2 to 3 cigarettes per day). Apparently she ran out of her lasix for the past 4 days. She noted increase in bilateral LE edema and increasing LBP. She does have symptoms of chronic bronchitis, daily cough with scant but thick sputum production. There is no history or fever or chills. No history or hemoptysis or night sweats. No travel history. No sick contacts. 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 No: Asthma, Cancer, Previously Intubated, Pulmonary Embolus, Pulmonary Fibrosis, Sleep Apnea Renal/: Yes: Renal Inusuff (CKD) ...: No Musculoskeletal: Yes: Osteoarthritis Endocrine: Yes: Diabetes Mellitus - Past Surgical History Past Surgical History: Yes: - Alcohol/Substance Use Hx Alcohol Use: No History of Substance Use: reports: None - Smoking History Smoking history: Current every day smoker Have you smoked in the past 12 months: No Aproximately how many cigarettes per day: 2 - Social History Usual Living Arrangement: Alone ADL: Independent History of Recent Travel: No Home Medications - Allergies Allergies/Adverse Reactions: Allergies Allergy/AdvReac Type Severity Reaction Status Date / Time morphine Allergy Severe Verified 06/23/19 12:17 Penicillins Allergy Severe Hives Verified 06/23/19 12:17 tomato [Tomato] Allergy Unknown Verified 06/23/19 12:17 chocolate AdvReac Unknown Uncoded 06/23/19 12:17 - Home Medications Home Medications: Ambulatory Orders Albuterol Sulfate Inhaler - [Ventolin HFA Inhaler -] 1 inh IH QID PRN 05/21/18 Budesonide/Formeterol Fumarate [SYMBICORT 80/4.5mcg -] 2 puff IH BID #1 inhaler 12/28/18 Bupropion HCl [Wellbutrin Xl -] 150 mg PO DAILY tab.sr.24h 12/28/18 Gabapentin [Neurontin -] 300 mg PO TID capsule 05/10/19 Cholecalciferol (Vitamin D3) [Vitamin D -] 50,000 unit PO WEEKLY 01/22/19 Linagliptin [Tradjenta] 5 mg PO DAILY 01/22/19 Furosemide [Lasix -] 40 mg PO BID@0600,1400 #30 tablet MDD 2 01/29/19 Atenolol [Tenormin -] 50 mg PO BID 01/31/19 Acetaminophen [Tylenol .Regular Strength -] 650 mg PO Q6H PRN tablet 02/10/19 Apixaban [Eliquis -] 2.5 mg PO BID #60 tablet 04/30/19 Lidocaine 5% Patch [Lidoderm -] 1 patch TP DAILY #30 patch 04/30/19 Verapamil HCl [Calan -] 40 mg PO BID #60 tablet 04/30/19 oxyCODONE HCL [Roxicodone -] 5 mg PO Q6H PRN #12 tablet MDD 4 04/30/19 Review of Systems - Review of Systems Constitutional: reports: Malaise. denies: Chills, Fever, Night Sweats, Unintentional Wgt. Loss Eyes: reports: No Symptoms HENT: reports: No Symptoms Neck: reports: No Symptoms Cardiovascular: reports: Edema, Shortness of Breath. denies: Chest Pain, Palpitations Respiratory: reports: Cough, Orthopnea, SOB, SOB on Exertion. denies: Hemoptysis, PND, Snoring, Wheezing Gastrointestinal: reports: No Symptoms Genitourinary: reports: No Symptoms Breasts: reports: No Symptoms Reported Musculoskeletal: reports: Back Pain Integumentary: reports: No Symptoms Neurological: reports: No Symptoms Endocrine: reports: No Symptoms Hematology/Lymphatic: reports: No Symptoms Psychiatric: reports: No Symptoms Physical Exam Vital Sings: Vital Signs Temperature 98.3 F 06/24/19 09:00 Pulse Rate 78 06/24/19 09:00 Respiratory Rate 17 06/24/19 09:00 Blood Pressure 153/74 06/24/19 11:00 O2 Sat by Pulse Oximetry (%) 96 06/24/19 09:00 Constitutional: Yes: Mild Distress Eyes: Yes: Conjunctiva Clear, EOM Intact HENT: Yes: Atraumatic, Normocephalic Neck: Yes: Supple, Trachea Midline Cardiovascular: Yes: Pulse Irregular Respiratory: Yes: Cough, Diminished, SOB, SOB on Exertion, Tachypnea. No: Accessory Muscle Use, Rales, Rhonchi, Stridor, Wheezes ...Inspection: Yes: WNL ...Clubbing: No Gastrointestinal: Yes: Normal Bowel Sounds, Soft Renal/: Yes: WNL Musculoskeletal: Yes: WNL Extremities: Yes: WNL Edema: Yes Peripheral Pulses WNL: Yes Integumentary: Yes: WNL Neurological: Yes: WNL, Alert, Oriented ...Motor Strength: WNL Psychiatric: Yes: WNL, Alert, Oriented Labs: CBC, BMP 06/24/19 06:45 06/24/19 06:45 Imaging - Results Chest X-ray: Report Reviewed, Image Reviewed Problem List - Problems (1) Acute exacerbation of chronic obstructive pulmonary disease (COPD) Code(s): J44.1 - CHRONIC OBSTRUCTIVE PULMONARY DISEASE W (ACUTE) EXACERBATION (2) CHF exacerbation Code(s): I50.9 - HEART FAILURE, UNSPECIFIED Qualifiers: Heart failure type: unspecified Qualified Code(s): I50.9 - Heart failure, unspecified (3) Afib Code(s): I48.91 - UNSPECIFIED ATRIAL FIBRILLATION Qualifiers: Atrial fibrillation type: unspecified Qualified Code(s): I48.91 - Unspecified atrial fibrillation (4) Anxiety and depression Code(s): F41.9 - ANXIETY DISORDER, UNSPECIFIED; F32.9 - MAJOR DEPRESSIVE DISORDER, SINGLE EPISODE, UNSPECIFIED (5) CHF (congestive heart failure) Code(s): I50.9 - HEART FAILURE, UNSPECIFIED Qualifiers: Heart failure type: diastolic Heart failure chronicity: unspecified Qualified Code(s): I50.30 - Unspecified diastolic (congestive) heart failure (6) CKD (chronic kidney disease) Code(s): N18.9 - CHRONIC KIDNEY DISEASE, UNSPECIFIED (7) Chronic back pain Code(s): M54.9 - DORSALGIA, UNSPECIFIED; G89.29 - OTHER CHRONIC PAIN Qualifiers: Back pain location: low back pain Back pain laterality: bilateral Sciatica presence: with sciatica Sciatica laterality: bilateral sciatica Qualified Code(s): M54.42 - Lumbago with sciatica, left side; M54.41 - Lumbago with sciatica, right side; G89.29 - Other chronic pain (8) Constipation Code(s): K59.00 - CONSTIPATION, UNSPECIFIED (9) Cough Code(s): R05 - COUGH (10) Hypertension Code(s): I10 - ESSENTIAL (PRIMARY) HYPERTENSION (11) Leg edema Code(s): R60.0 - LOCALIZED EDEMA (12) Penicillin allergy Code(s): Z88.0 - ALLERGY STATUS TO PENICILLIN (13) COPD (chronic obstructive pulmonary disease) Code(s): J44.9 - CHRONIC OBSTRUCTIVE PULMONARY DISEASE, UNSPECIFIED Qualifiers: COPD type: COPD with acute exacerbation Qualified Code(s): J44.1 - Chronic obstructive pulmonary disease with (acute) exacerbation (14) Cigarette nicotine dependence Code(s): F17.200 - NICOTINE DEPENDENCE, UNSPECIFIED, UNCOMPLICATED (15) Diabetes Code(s): E11.9 - TYPE 2 DIABETES MELLITUS WITHOUT COMPLICATIONS Qualifiers: Diabetes mellitus type: type 2 (16) Hyperlipidemia Code(s): E78.5 - HYPERLIPIDEMIA, UNSPECIFIED Assessment/Plan Prednisone 40mg OD Lasix daily Daily weights Symbicort BD TX Would monitor off ABX No smoking counseled Monitor I & O Will follow Thank you. Dr Montiel
--- NOTE | 2019-06-24 13:53 | HP ---
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 No: Asthma, Cancer, Previously Intubated, Pulmonary Embolus, Pulmonary Fibrosis, Sleep Apnea Renal/: Yes: Renal Inusuff (CKD) ...: No Heme/Onc: Yes: Anemia Musculoskeletal: Yes: Osteoarthritis Endocrine: Yes: Diabetes Mellitus - Past Surgical History Past Surgical History: Yes: - Smoking History Smoking history: Current every day smoker Have you smoked in the past 12 months: No Aproximately how many cigarettes per day: 2 - Alcohol/Substance Use Hx Alcohol Use: No History of Substance Use: reports: None - Social History ADL: Independent History of Recent Travel: No Home Medications - Allergies Allergies/Adverse Reactions: Allergies Allergy/AdvReac Type Severity Reaction Status Date / Time morphine Allergy Severe Verified 06/23/19 12:17 Penicillins Allergy Severe Hives Verified 06/23/19 12:17 tomato [Tomato] Allergy Unknown Verified 06/23/19 12:17 chocolate AdvReac Unknown Uncoded 06/23/19 12:17 - Home Medications Home Medications: Ambulatory Orders Albuterol Sulfate Inhaler - [Ventolin HFA Inhaler -] 1 inh IH QID PRN 05/21/18 Budesonide/Formeterol Fumarate [SYMBICORT 80/4.5mcg -] 2 puff IH BID #1 inhaler 12/28/18 Bupropion HCl [Wellbutrin Xl -] 150 mg PO DAILY tab.sr.24h 12/28/18 Gabapentin [Neurontin -] 300 mg PO TID capsule 01/15/19 Cholecalciferol (Vitamin D3) [Vitamin D -] 50,000 unit PO WEEKLY 01/22/19 Linagliptin [Tradjenta] 5 mg PO DAILY 01/22/19 Furosemide [Lasix -] 40 mg PO BID@0600,1400 #30 tablet MDD 2 01/29/19 Atenolol [Tenormin -] 50 mg PO BID 01/31/19 Acetaminophen [Tylenol .Regular Strength -] 650 mg PO Q6H PRN tablet 02/10/19 Apixaban [Eliquis -] 2.5 mg PO BID #60 tablet 04/30/19 Lidocaine 5% Patch [Lidoderm -] 1 patch TP DAILY #30 patch 04/30/19 Verapamil HCl [Calan -] 40 mg PO BID #60 tablet 04/30/19 oxyCODONE HCL [Roxicodone -] 5 mg PO Q6H PRN #12 tablet MDD 4 04/30/19 Review of Systems - Review of Systems Respiratory: reports: SOB Physical Examination Vital Signs: Vital Signs Temperature 98.3 F 06/24/19 09:00 Pulse Rate 78 06/24/19 09:00 Respiratory Rate 17 06/24/19 09:00 Blood Pressure 153/74 06/24/19 11:00 O2 Sat by Pulse Oximetry (%) 96 06/24/19 09:00 Constitutional: Yes: Calm Cardiovascular: Yes: Regular Rate and Rhythm, S1, S2 Respiratory: Yes: Diminished Gastrointestinal: Yes: Normal Bowel Sounds, Soft Edema: Yes Labs: CBC, BMP 06/24/19 06:45 06/24/19 06:45 Imaging - Results X-ray: Report Reviewed Problem List - Problems (1) CHF exacerbation Assessment/Plan: daily weight iv lasix bd monitor lytes cardiology andpulm conslt oxygen maintain saturat>90 iv nitro drip can titrate to off hydralazine tenormin Code(s): I50.9 - HEART FAILURE, UNSPECIFIED Qualifiers: Heart failure type: unspecified Qualified Code(s): I50.9 - Heart failure, unspecified (2) Afib Assessment/Plan: AC rate control Code(s): I48.91 - UNSPECIFIED ATRIAL FIBRILLATION Qualifiers: Atrial fibrillation type: unspecified Qualified Code(s): I48.91 - Unspecified atrial fibrillation (3) CKD (chronic kidney disease) Code(s): N18.9 - CHRONIC KIDNEY DISEASE, UNSPECIFIED (4) COPD (chronic obstructive pulmonary disease) Assessment/Plan: oxygen and bronchodilators and symbicort Code(s): J44.9 - CHRONIC OBSTRUCTIVE PULMONARY DISEASE, UNSPECIFIED Qualifiers: COPD type: COPD with acute exacerbation Qualified Code(s): J44.1 - Chronic obstructive pulmonary disease with (acute) exacerbation
[2019-06-24] MEDS: predniSONE 20 MG TABLET (UD) PO SCH (14:23)
[2019-06-24] MEDS: FUROSEMIDE 40 MG/4 ML INJECTABLE VIAL IVPUSH SCH (14:23)
--- NOTE | 2019-06-24 14:33 | CON.CARD ---
Consult Consult Specialty:: Cardiology Reason for Consultation:: Edema dyspnea - History of Present Illness History of Present Illness: 59 F with CKD 3 HTN and chronic afib. HfPEF with a few admissions for CHF decompensation and rapid AF. She has COPD and is on chronic O2. Currently still smokes. Was admitted with SOB and edema after running out of her lasix. Is placed on IV NTG and given diuretics with improvement of symptoms. Reports compliance with her other medications. Cardiac testing: Echocardiogram 04/2019 Normal LV function and normal RV fxn. Moderate MR, mod- severe AR and TR PASP 40mmHg. Lexiscan NST no ischemia. 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 No: Asthma, Cancer, Previously Intubated, Pulmonary Embolus, Pulmonary Fibrosis, Sleep Apnea Renal/: Yes: Renal Inusuff (CKD) ...: No Musculoskeletal: Yes: Osteoarthritis Endocrine: Yes: Diabetes Mellitus - Past Surgical History Past Surgical History: Yes: - Alcohol/Substance Use Hx Alcohol Use: No History of Substance Use: reports: None - Smoking History Smoking history: Current every day smoker Have you smoked in the past 12 months: No Aproximately how many cigarettes per day: 2 - Social History Usual Living Arrangement: Alone ADL: Independent History of Recent Travel: No Home Medications - Allergies Allergies/Adverse Reactions: Allergies Allergy/AdvReac Type Severity Reaction Status Date / Time morphine Allergy Severe Verified 06/23/19 12:17 Penicillins Allergy Severe Hives Verified 06/23/19 12:17 tomato [Tomato] Allergy Unknown Verified 06/23/19 12:17 chocolate AdvReac Unknown Uncoded 06/23/19 12:17 - Home Medications Home Medications: Ambulatory Orders Albuterol Sulfate Inhaler - [Ventolin HFA Inhaler -] 1 inh IH QID PRN 05/21/18 Budesonide/Formeterol Fumarate [SYMBICORT 80/4.5mcg -] 2 puff IH BID #1 inhaler 12/28/18 Bupropion HCl [Wellbutrin Xl -] 150 mg PO DAILY tab.sr.24h 12/28/18 Gabapentin [Neurontin -] 300 mg PO TID capsule 01/15/19 Cholecalciferol (Vitamin D3) [Vitamin D -] 50,000 unit PO WEEKLY 01/22/19 Linagliptin [Tradjenta] 5 mg PO DAILY 01/22/19 Furosemide [Lasix -] 40 mg PO BID@0600,1400 #30 tablet MDD 2 01/29/19 Atenolol [Tenormin -] 50 mg PO BID 01/31/19 Acetaminophen [Tylenol .Regular Strength -] 650 mg PO Q6H PRN tablet 02/10/19 Apixaban [Eliquis -] 2.5 mg PO BID #60 tablet 04/30/19 Lidocaine 5% Patch [Lidoderm -] 1 patch TP DAILY #30 patch 04/30/19 Verapamil HCl [Calan -] 40 mg PO BID #60 tablet 04/30/19 oxyCODONE HCL [Roxicodone -] 5 mg PO Q6H PRN #12 tablet MDD 4 04/30/19 Review of Systems - Review of Systems Constitutional: denies: Chills, Fever, Lethargy, Loss of Appetite, Malaise Eyes: denies: Blind Spots, Blurred Vision, Double Vision, Eye Pain HENT: reports: No Symptoms Neck: reports: No Symptoms Cardiovascular: reports: Edema, Shortness of Breath. denies: Chest Pain Respiratory: reports: Cough, SOB, SOB on Exertion Gastrointestinal: reports: No Symptoms Genitourinary: reports: No Symptoms Breasts: reports: No Symptoms Reported Vital Signs: Vital Signs Temperature 98.3 F 06/24/19 09:00 Pulse Rate 78 06/24/19 09:00 Respiratory Rate 17 06/24/19 09:00 Blood Pressure 153/74 06/24/19 11:00 O2 Sat by Pulse Oximetry (%) 96 06/24/19 09:00 Constitutional: Yes: Well Nourished, No Distress Eyes: Yes: Conjunctiva Clear, EOM Intact HENT: Yes: Atraumatic, Normocephalic Neck: Yes: Supple, Trachea Midline Respiratory: Yes: Regular, Diminished, On Nasal O2, Poor Air Entry Gastrointestinal: Yes: Normal Bowel Sounds, Soft Cardiovascular: Yes: Pulse Irregular JVD: Yes Carotid Bruit: No PMI: Non-Displaced Heart Sounds: Yes: S1, S2 Murmur: Yes: Systolic Murmur (2/6 dm) Edema: Yes Edema: LLE: 1+, RLE: 1+ Peripheral Pulses WNL: Yes - Other Data Labs, Other Data: CBC, BMP 06/24/19 06:45 06/24/19 06:45 INR, PTT INR 1.58 (0.83-1.09) H 06/23/19 12:45 Troponin, BNP 06/24/19 06:45 Troponin I 0.02 B-Natriuretic Peptide 53898.0 H Troponin, BNP 06/24/19 06:45 Troponin I 0.02 B-Natriuretic Peptide 67962.0 H Ejection Fraction %: LVEF > or = 40 % Imaging - Results Chest X-ray: Report Reviewed EKG: Image Reviewed (Afib IVCD LAD. LVH) Problem List - Problems (1) CHF exacerbation Code(s): I50.9 - HEART FAILURE, UNSPECIFIED Qualifiers: Heart failure type: unspecified Qualified Code(s): I50.9 - Heart failure, unspecified Assessment/Plan Pt with history of chronic Afib, CKD 3, HTN, COPD and chronic HfPEF. Adm with acute on chronic CHF exacerbation. ECG Afib without ischemia. 1. Afib: rate controled with atenolol and Verapamil. She is tolerating AC and is on ELiquis. 2. 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 Improved after diresis and preload reduction. -Stop NTG drip -Continue with Lasix at current dose -DC montes -Monitor daily weight and electrolytes.
[2019-06-24] MEDS: hydrALAZINE HCL 25 MG TABLET (FP) PO SCH ×2 (14:35→21:20)
--- NOTE | 2019-06-24 15:43 | CONSULT ---
Consult Consult Specialty:: Nephrology Reason for Consultation:: CKD - History of Present Illness Chief Complaint: edema and shortness of breath History of Present Illness: Pt is a 59 year old female with pmhx of ckd, chf, copd, a-fib, and non compliance who presents to the ER with shortness of breath. She also complains of lower extremity edema. She says that she ran out of her meds at home. SHe has not followed with me after her last admission. She denies chest pain. She was also hypertensive. She feels that her breathing is better today than yesterday. 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) Cardio/Vascular: Yes: AFIB, CHF, HTN Pulmonary: Yes: Bronchitis, COPD, O2 Dependent, Pneumonia Renal/: Yes: Renal Inusuff (CKD) ...: No Musculoskeletal: Yes: Osteoarthritis Endocrine: Yes: Diabetes Mellitus - Past Surgical History Past Surgical History: Yes: - Alcohol/Substance Use Hx Alcohol Use: No History of Substance Use: reports: None - Smoking History Smoking history: Current every day smoker Have you smoked in the past 12 months: No Aproximately how many cigarettes per day: 2 - Social History Usual Living Arrangement: Alone ADL: Independent History of Recent Travel: No Home Medications - Allergies Allergies/Adverse Reactions: Allergies Allergy/AdvReac Type Severity Reaction Status Date / Time morphine Allergy Severe Verified 06/23/19 12:17 Penicillins Allergy Severe Hives Verified 06/23/19 12:17 tomato [Tomato] Allergy Unknown Verified 06/23/19 12:17 chocolate AdvReac Unknown Uncoded 06/23/19 12:17 - Home Medications Home Medications: Ambulatory Orders Albuterol Sulfate Inhaler - [Ventolin HFA Inhaler -] 1 inh IH QID PRN 05/21/18 Budesonide/Formeterol Fumarate [SYMBICORT 80/4.5mcg -] 2 puff IH BID #1 inhaler 12/28/18 Bupropion HCl [Wellbutrin Xl -] 150 mg PO DAILY tab.sr.24h 12/28/18 Gabapentin [Neurontin -] 300 mg PO TID capsule 01/15/19 Cholecalciferol (Vitamin D3) [Vitamin D -] 50,000 unit PO WEEKLY 01/22/19 Linagliptin [Tradjenta] 5 mg PO DAILY 01/22/19 Furosemide [Lasix -] 40 mg PO BID@0600,1400 #30 tablet MDD 2 01/29/19 Atenolol [Tenormin -] 50 mg PO BID 01/31/19 Acetaminophen [Tylenol .Regular Strength -] 650 mg PO Q6H PRN tablet 02/10/19 Apixaban [Eliquis -] 2.5 mg PO BID #60 tablet 04/30/19 Lidocaine 5% Patch [Lidoderm -] 1 patch TP DAILY #30 patch 04/30/19 Verapamil HCl [Calan -] 40 mg PO BID #60 tablet 04/30/19 oxyCODONE HCL [Roxicodone -] 5 mg PO Q6H PRN #12 tablet MDD 4 04/30/19 Family Medical History Family History: Denies Review of Systems - Review of Systems Constitutional: reports: Malaise Eyes: reports: No Symptoms HENT: reports: No Symptoms Neck: reports: No Symptoms Cardiovascular: reports: No Symptoms Respiratory: reports: No Symptoms Gastrointestinal: reports: No Symptoms Genitourinary: reports: No Symptoms Musculoskeletal: reports: No Symptoms Integumentary: reports: No Symptoms Neurological: reports: No Symptoms Endocrine: reports: No Symptoms Hematology/Lymphatic: reports: No Symptoms Psychiatric: reports: No Symptoms Physical Exam Vital Signs: Vital Signs Temperature 98.6 F 06/24/19 14:00 Pulse Rate 84 06/24/19 14:00 Respiratory Rate 20 06/24/19 14:00 Blood Pressure 165/99 06/24/19 14:00 O2 Sat by Pulse Oximetry (%) 96 06/24/19 09:00 Constitutional: Yes: Calm Eyes: Yes: Conjunctiva Clear HENT: Yes: Atraumatic Neck: Yes: Supple Cardiovascular: Yes: S1, S2 Respiratory: Yes: On Nasal O2, Rhonchi Gastrointestinal: Yes: Soft Musculoskeletal: Yes: WNL Edema: Yes Edema: LLE: 3+, RLE: 3+ Neurological: Yes: Oriented Psychiatric: Yes: Oriented Labs: CBC, BMP 06/24/19 06:45 06/24/19 06:45 Laboratory Tests 04/25/19 04/26/19 04/28/19 07:50 06:53 06:51 Creatinine 1.8 H 1.8 H 1.7 H 04/29/19 06/23/19 06/24/19 10:30 12:30 06:45 Creatinine 1.7 H 1.3 1.5 H Imaging - Results Chest X-ray: Report Reviewed Problem List - Problems (1) CHF exacerbation Code(s): I50.9 - HEART FAILURE, UNSPECIFIED Qualifiers: Heart failure type: unspecified Qualified Code(s): I50.9 - Heart failure, unspecified (2) CHF (congestive heart failure) Code(s): I50.9 - HEART FAILURE, UNSPECIFIED Qualifiers: Heart failure type: diastolic Heart failure chronicity: unspecified Qualified Code(s): I50.30 - Unspecified diastolic (congestive) heart failure (3) CKD (chronic kidney disease) Code(s): N18.9 - CHRONIC KIDNEY DISEASE, UNSPECIFIED Assessment/Plan Current Medications Generic Name Dose Route Start Last Admin Trade Name Freq PRN Reason Stop Dose Admin Albuterol Sulfate 1 puff 06/23/19 17:28 Ventolin Hfa Inhaler - IH RQID PRN ASTHMA Apixaban 2.5 mg 06/23/19 22:00 Eliquis - PO BID JOLENE Atenolol 50 mg 06/23/19 22:00 06/24/19 09:13 Tenormin - PO 50 mg BID JOLENE Administration Budesonide/Formoterol Fumarate 2 puff 06/23/19 22:00 06/24/19 09:14 Symbicort 80/4.5mcg - IH 2 puff BID JOLENE Administration Bupropion HCl 150 mg 06/24/19 10:00 06/24/19 09:13 Wellbutrin Xl - PO 150 mg DAILY JOLENE Administration Furosemide 40 mg 06/24/19 14:00 06/24/19 14:23 Lasix Injection - IVPUSH 40 mg BID@0600,1400 JOLENE Administration Gabapentin 300 mg 06/23/19 22:00 06/24/19 14:23 Neurontin - PO 300 mg TID JOLENE Administration Heparin Sodium (Porcine) 5,000 unit 06/23/19 22:00 06/24/19 09:12 Heparin - SQ 5,000 unit BID JOLENE Administration Hydralazine HCl 25 mg 06/24/19 14:15 06/24/19 14:35 Apresoline - PO 25 mg TID JOLENE Administration Nitroglycerin/Dextrose 25 mg in 250 mls @ 30 mls/hr 06/23/19 12:30 06/24/19 13:00 Nitroglycerin 25mg/D5w 250ml IVPB 10 mcg/min TITR JOLENE 6 mls/hr Titration 50 MCG/MIN Insulin Aspart 1 vial 06/23/19 22:00 06/24/19 11:48 Novolog Vial Sliding Scale - SQ Not Given ACHS JOLENE Protocol Lidocaine 1 patch 06/24/19 10:00 06/24/19 09:11 Lidoderm Patch - TP 1 patch DAILY JOLENE Administration Miscellaneous 1 each 06/23/19 22:00 06/23/19 21:58 Lidoderm Patch Removal MC Not Given DAILY@2200 JOLENE Oxycodone HCl 5 mg 06/23/19 17:28 06/24/19 11:42 Roxicodone - PO 5 mg Q6H PRN Administration PAIN LEVEL 6-10 Prednisone 40 mg 06/24/19 14:30 06/24/19 14:23 Deltasone - PO 40 mg DAILY JOLENE Administration Verapamil HCl 40 mg 06/23/19 22:00 06/24/19 09:24 Calan - PO 40 mg BID JOLENE Administration Impression 1. CKD 2. CHF 3. a-fib 4. lower ext edema 5. COPD 6. active smoker 7. non compliance Plan - cont lasix - monitor bp - monitor urine output - monitor renal function - check ua - discussed compliance
[2019-06-24] MEDS: NITROGLYCERIN 25MG/D5W 250ML 25 MG/250 ML ML IVPB SCH (17:11)
[2019-06-24 18:53] LABS: EPI CELLS 1.3 /HPF (0-5/HPF); HYALINE CASTS 18 /lpf (0-8); URINE APPEARANCE CLEAR; URINE BACTERIA 1.9 /hpf (NEGATIVE); URINE BILIRUBIN NEGATIVE (NEGATIVE); URINE COLOR YELLOW; URINE GLUCOSE (UA) NEGATIVE (NEGATIVE); URINE KETONE NEGATIVE (NEGATIVE); URINE LEUK ESTERASE 1+ (NEGATIVE); URINE NITRITE NEGATIVE (NEGATIVE); URINE PROTEIN NEGATIVE (NEGATIVE); URINE RBC 6 /hpf (0-4); URINE UROBILINOGEN 0.2 mg/dL (0.2-1.0); URINE WBC 16 /hpf (0-5)
[2019-06-24] MEDS: LIDOCAINE PATCH REMOVAL MC SCH (21:25)
[2019-06-25] MEDS: hydrALAZINE HCL 25 MG TABLET (FP) PO SCH ×3 (05:28→21:06)
[2019-06-25] MEDS: GABAPENTIN 300 MG CAPSULE (FP) PO SCH ×3 (05:29→21:07)
[2019-06-25] MEDS: FUROSEMIDE 40 MG/4 ML INJECTABLE VIAL IVPUSH SCH ×2 (05:29→14:07)
[2019-06-25] MEDS: oxyCODONE HCL 5 MG TABLET PO PRN ×3 (05:38→21:08)
[2019-06-25] MEDS: INSULIN SLIDING SCALE (NOVOLOG) 1 VIAL SQ SCH ×4 (06:16→21:11)
[2019-06-25 08:25] LABS: ALBUMIN 3.1 g/dl (3.4-5.0); BILIRUBIN,TOTAL 0.8 mg/dL (0.2-1); BLOOD UREA NITROGEN 36.7 mg/dL (7-18); CALCIUM 8.5 mg/dL (8.5-10.1); CREATININE 1.8 mg/dL (0.55-1.3); POTASSIUM 3.9 mmol/L (3.5-5.1); TOT PROT 7.1 g/dl (6.4-8.2)
[2019-06-25] MEDS ORDERED: PT OWN MED DRAWER 7, Y5N ONE ×3 (08:55→20:18)
[2019-06-25] MEDS: predniSONE 20 MG TABLET (UD) PO SCH (09:49)
[2019-06-25] MEDS: ATENOLOL 50 MG TABLET (FP) PO SCH ×2 (09:49→21:08)
[2019-06-25] MEDS: HEPARIN NA (PORCINE) 5,000 UNITS/ML 1ML VIAL SQ SCH (09:49)
[2019-06-25] MEDS: LIDOCAINE 5% TOPICAL PATCH TP SCH (09:50)
[2019-06-25] MEDS: VERAPAMIL HCL 40 MG TABLET (FP) PO SCH ×2 (09:51→21:06)
[2019-06-25] MEDS: BUDESONIDE/FORMETEROL FUMARATE 80/4.5 mcg INHALER IH SCH ×2 (09:52→21:08)
--- NOTE | 2019-06-25 11:20 | PN ---
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, Physician History of Present Illness: PULMONARY ALERT,FEELING BETTER,LESS DYSPNEIC,WANTS TO GO HOME - Current Medication List Current Medications: Active Medications Albuterol Sulfate (Ventolin Hfa Inhaler -) 1 puff IH RQID PRN PRN Reason: ASTHMA Apixaban (Eliquis -) 2.5 mg PO BID [facility] Atenolol (Tenormin -) 50 mg PO BID [facility] Last Admin: 06/25/19 09:49 Dose: 50 mg Budesonide/Formoterol Fumarate (Symbicort 80/4.5mcg -) 2 puff IH BID [facility] Last Admin: 06/25/19 09:52 Dose: 2 puff Bupropion HCl (Wellbutrin Xl -) 150 mg PO DAILY [facility] Last Admin: 06/25/19 09:49 Dose: 150 mg Furosemide (Lasix Injection -) 40 mg IVPUSH BID@0600,1400 [facility] Last Admin: 06/25/19 05:29 Dose: 40 mg Gabapentin (Neurontin -) 300 mg PO TID [facility] Last Admin: 06/25/19 05:29 Dose: 300 mg Heparin Sodium (Porcine) (Heparin -) 5,000 unit SQ BID [facility] Last Admin: 06/25/19 09:49 Dose: 5,000 unit Hydralazine HCl (Apresoline -) 25 mg PO TID [facility] Last Admin: 06/25/19 05:28 Dose: 25 mg Nitroglycerin/Dextrose (Nitroglycerin 25mg/D5w 250ml) 25 mg in 250 mls @ 30 mls /hr IVPB TITR [facility] Last Admin: 06/24/19 17:11 Dose: Not Given Insulin Aspart (Novolog Vial Sliding Scale -) 1 vial SQ ACHS [facility]; Protocol Last Admin: 06/25/19 10:44 Dose: Not Given Lidocaine (Lidoderm Patch -) 1 patch TP DAILY [facility] Last Admin: 06/25/19 09:50 Dose: 1 patch Miscellaneous (Lidoderm Patch Removal) 1 each MC DAILY@2200 [facility] Last Admin: 06/24/19 21:25 Dose: Not Given Oxycodone HCl (Roxicodone -) 5 mg PO Q6H PRN PRN Reason: PAIN LEVEL 6-10 Last Admin: 06/25/19 05:38 Dose: 5 mg Prednisone (Deltasone -) 40 mg PO DAILY [facility] Last Admin: 06/25/19 09:49 Dose: 40 mg Verapamil HCl (Calan -) 40 mg PO BID JOLENE Last Admin: 06/25/19 09:51 Dose: 40 mg - Objective Vital Signs: Vital Signs Temperature 98.2 F 06/25/19 10:49 Pulse Rate 80 06/25/19 10:49 Respiratory Rate 20 06/25/19 10:49 Blood Pressure 155/84 06/25/19 10:49 O2 Sat by Pulse Oximetry (%) 99 06/25/19 10:49 Constitutional: Yes: Well Nourished, Calm Eyes: Yes: WNL HENT: Yes: WNL Neck: Yes: WNL Cardiovascular: Yes: Pulse Irregular, S1, S2 Respiratory: Yes: Diminished Gastrointestinal: Yes: Normal Bowel Sounds, Soft Extremities: Yes: WNL Edema: Yes Edema: LLE: Trace, RLE: Trace Labs: CBC, BMP 06/24/19 06:45 06/25/19 07:00 INR, PTT INR 1.58 (0.83-1.09) H 06/23/19 12:45 Assessment/Plan Problem List - Problems (1) Acute exacerbation of chronic obstructive pulmonary disease (COPD) Code(s): J44.1 - CHRONIC OBSTRUCTIVE PULMONARY DISEASE W (ACUTE) EXACERBATION (2) CHF exacerbation Code(s): I50.9 - HEART FAILURE, UNSPECIFIED Qualifiers: Heart failure type: unspecified Qualified Code(s): I50.9 - Heart failure, unspecified (3) Afib Code(s): I48.91 - UNSPECIFIED ATRIAL FIBRILLATION Qualifiers: Atrial fibrillation type: unspecified Qualified Code(s): I48.91 - Unspecified atrial fibrillation (4) Anxiety and depression Code(s): F41.9 - ANXIETY DISORDER, UNSPECIFIED; F32.9 - MAJOR DEPRESSIVE DISORDER, SINGLE EPISODE, UNSPECIFIED (5) CHF (congestive heart failure) Code(s): I50.9 - HEART FAILURE, UNSPECIFIED Qualifiers: Heart failure type: diastolic Heart failure chronicity: unspecified Qualified Code(s): I50.30 - Unspecified diastolic (congestive) heart failure (6) CKD (chronic kidney disease) Code(s): N18.9 - CHRONIC KIDNEY DISEASE, UNSPECIFIED (7) Chronic back pain Code(s): M54.9 - DORSALGIA, UNSPECIFIED; G89.29 - OTHER CHRONIC PAIN Qualifiers: Back pain location: low back pain Back pain laterality: bilateral Sciatica presence: with sciatica Sciatica laterality: bilateral sciatica Qualified Code(s): M54.42 - Lumbago with sciatica, left side; M54.41 - Lumbago with sciatica, right side; G89.29 - Other chronic pain (8) Constipation Code(s): K59.00 - CONSTIPATION, UNSPECIFIED (9) Cough Code(s): R05 - COUGH (10) Hypertension Code(s): I10 - ESSENTIAL (PRIMARY) HYPERTENSION (11) Leg edema Code(s): R60.0 - LOCALIZED EDEMA (12) Penicillin allergy Code(s): Z88.0 - ALLERGY STATUS TO PENICILLIN (13) COPD (chronic obstructive pulmonary disease) Code(s): J44.9 - CHRONIC OBSTRUCTIVE PULMONARY DISEASE, UNSPECIFIED Qualifiers: COPD type: COPD with acute exacerbation Qualified Code(s): J44.1 - Chronic obstructive pulmonary disease with (acute) exacerbation (14) Cigarette nicotine dependence Code(s): F17.200 - NICOTINE DEPENDENCE, UNSPECIFIED, UNCOMPLICATED (15) Diabetes Code(s): E11.9 - TYPE 2 DIABETES MELLITUS WITHOUT COMPLICATIONS Qualifiers: Diabetes mellitus type: type 2 (16) Hyperlipidemia Code(s): E78.5 - HYPERLIPIDEMIA, UNSPECIFIED 17 ACUTE ON CHRONIC KIDNEY INJURY Assessment/Plan Prednisone 40mg OD Lasix daily Daily weights Symbicort BD TX No smoking counseled Monitor I & O MONITOR LYTES,RENAL FUNCTION DR ROLLE
--- NOTE | 2019-06-25 13:25 | PN ---
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, Physician Chief Complaint: pateint sitting up in bed feels better - Current Medication List Current Medications: Active Medications Albuterol Sulfate (Ventolin Hfa Inhaler -) 1 puff IH RQID PRN PRN Reason: ASTHMA Apixaban (Eliquis -) 2.5 mg PO BID [facility] Atenolol (Tenormin -) 50 mg PO BID [facility] Last Admin: 06/25/19 09:49 Dose: 50 mg Budesonide/Formoterol Fumarate (Symbicort 80/4.5mcg -) 2 puff IH BID [facility] Last Admin: 06/25/19 09:52 Dose: 2 puff Bupropion HCl (Wellbutrin Xl -) 150 mg PO DAILY [facility] Last Admin: 06/25/19 09:49 Dose: 150 mg Furosemide (Lasix Injection -) 40 mg IVPUSH BID@0600,1400 [facility] Last Admin: 06/25/19 05:29 Dose: 40 mg Gabapentin (Neurontin -) 300 mg PO TID [facility] Last Admin: 06/25/19 05:29 Dose: 300 mg Hydralazine HCl (Apresoline -) 25 mg PO TID [facility] Last Admin: 06/25/19 05:28 Dose: 25 mg Nitroglycerin/Dextrose (Nitroglycerin 25mg/D5w 250ml) 25 mg in 250 mls @ 30 mls /hr IVPB TITR [facility] Last Admin: 06/24/19 17:11 Dose: Not Given Insulin Aspart (Novolog Vial Sliding Scale -) 1 vial SQ ACHS [facility]; Protocol Last Admin: 06/25/19 10:44 Dose: Not Given Lidocaine (Lidoderm Patch -) 1 patch TP DAILY [facility] Last Admin: 06/25/19 09:50 Dose: 1 patch Miscellaneous (Lidoderm Patch Removal) 1 each MC DAILY@2200 [facility] Last Admin: 06/24/19 21:25 Dose: Not Given Oxycodone HCl (Roxicodone -) 5 mg PO Q6H PRN PRN Reason: PAIN LEVEL 6-10 Last Admin: 06/25/19 05:38 Dose: 5 mg Prednisone (Deltasone -) 40 mg PO DAILY [facility] Last Admin: 06/25/19 09:49 Dose: 40 mg Verapamil HCl (Calan -) 40 mg PO BID [facility] Last Admin: 06/25/19 09:51 Dose: 40 mg - Objective Vital Signs: Vital Signs Temperature 98.2 F 06/25/19 10:49 Pulse Rate 80 06/25/19 10:49 Respiratory Rate 20 06/25/19 10:49 Blood Pressure 155/84 06/25/19 10:49 O2 Sat by Pulse Oximetry (%) 99 06/25/19 10:49 Constitutional: Yes: Calm Cardiovascular: Yes: Pulse Irregular, S1, S2 Respiratory: Yes: Diminished, On Nasal O2, Wheezes Gastrointestinal: Yes: Normal Bowel Sounds, Soft Edema: Yes (improved) Neurological: Yes: Alert, Oriented Labs: CBC, BMP 06/24/19 06:45 06/25/19 07:00 INR, PTT INR 1.58 (0.83-1.09) H 06/23/19 12:45 Problem List - Problems (1) CHF exacerbation Assessment/Plan: daily weight iv lasix bd monitor lytes cardiology andpulm conslt oxygen maintain saturat>90 iv nitro drip can titrate to off hydralazine tenormin Code(s): I50.9 - HEART FAILURE, UNSPECIFIED Qualifiers: Heart failure type: unspecified Qualified Code(s): I50.9 - Heart failure, unspecified (2) Afib Assessment/Plan: AC rate control Code(s): I48.91 - UNSPECIFIED ATRIAL FIBRILLATION Qualifiers: Atrial fibrillation type: unspecified Qualified Code(s): I48.91 - Unspecified atrial fibrillation (3) CKD (chronic kidney disease) Assessment/Plan: renal on board trend bun/cr contie iv lasix Code(s): N18.9 - CHRONIC KIDNEY DISEASE, UNSPECIFIED (4) COPD (chronic obstructive pulmonary disease) Assessment/Plan: oxygen and bronchodilators and symbicort prednsione 40mg Code(s): J44.9 - CHRONIC OBSTRUCTIVE PULMONARY DISEASE, UNSPECIFIED Qualifiers: COPD type: COPD with acute exacerbation Qualified Code(s): J44.1 - Chronic obstructive pulmonary disease with (acute) exacerbation
[2019-06-25] MEDS: NITROGLYCERIN 25MG/D5W 250ML 25 MG/250 ML ML IVPB SCH (14:05)
[2019-06-25] MEDS ORDERED: APIXABAN 2.5 MG TABLET PO SCH (15:00)
--- NOTE | 2019-06-25 15:18 | PN ---
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, Physician Chief Complaint: Less SOB Weight decreased. History of Present Illness: 59 F with CKD 3 HTN and chronic afib. HfPEF with a few admissions for CHF decompensation and rapid AF. She has COPD and is on chronic O2. Currently still smokes. Was admitted with SOB and edema after running out of her lasix. Is placed on IV NTG and given diuretics with improvement of symptoms. Reports compliance with her other medications. Cardiac testing: Echocardiogram 04/2019 Normal LV function and normal RV fxn. Moderate MR, mod- severe AR and TR PASP 40mmHg. Lexiscan NST no ischemia. - Current Medication List Current Medications: Active Medications Albuterol Sulfate (Ventolin Hfa Inhaler -) 1 puff IH RQID PRN PRN Reason: ASTHMA Apixaban (Eliquis -) 2.5 mg PO BID [facility] Atenolol (Tenormin -) 50 mg PO BID [facility] Last Admin: 06/25/19 09:49 Dose: 50 mg Budesonide/Formoterol Fumarate (Symbicort 80/4.5mcg -) 2 puff IH BID [facility] Last Admin: 06/25/19 09:52 Dose: 2 puff Bupropion HCl (Wellbutrin Xl -) 150 mg PO DAILY [facility] Last Admin: 06/25/19 09:49 Dose: 150 mg Furosemide (Lasix Injection -) 40 mg IVPUSH BID@0600,1400 [facility] Last Admin: 06/25/19 14:07 Dose: 40 mg Gabapentin (Neurontin -) 300 mg PO TID [facility] Last Admin: 06/25/19 14:07 Dose: 300 mg Hydralazine HCl (Apresoline -) 25 mg PO TID [facility] Last Admin: 06/25/19 14:07 Dose: 25 mg Nitroglycerin/Dextrose (Nitroglycerin 25mg/D5w 250ml) 25 mg in 250 mls @ 30 mls /hr IVPB TITR [facility] Last Admin: 06/25/19 14:05 Dose: Not Given Insulin Aspart (Novolog Vial Sliding Scale -) 1 vial SQ ACHS [facility]; Protocol Last Admin: 06/25/19 10:44 Dose: Not Given Lidocaine (Lidoderm Patch -) 1 patch TP DAILY [facility] Last Admin: 06/25/19 09:50 Dose: 1 patch Miscellaneous (Lidoderm Patch Removal) 1 each MC DAILY@2200 [facility] Last Admin: 06/24/19 21:25 Dose: Not Given Oxycodone HCl (Roxicodone -) 5 mg PO Q6H PRN PRN Reason: PAIN LEVEL 6-10 Last Admin: 06/25/19 14:08 Dose: 5 mg Prednisone (Deltasone -) 40 mg PO DAILY [facility] Last Admin: 06/25/19 09:49 Dose: 40 mg Verapamil HCl (Calan -) 40 mg PO BID [facility] Last Admin: 06/25/19 09:51 Dose: 40 mg - Objective Vital Signs: Vital Signs Temperature 98.2 F 06/25/19 10:49 Pulse Rate 80 06/25/19 10:49 Respiratory Rate 20 06/25/19 10:49 Blood Pressure 155/84 06/25/19 10:49 O2 Sat by Pulse Oximetry (%) 99 06/25/19 10:49 Constitutional: Yes: Well Nourished, No Distress Eyes: Yes: Conjunctiva Clear HENT: Yes: Atraumatic, Normocephalic Neck: Yes: Supple, Trachea Midline Cardiovascular: Yes: Pulse Irregular, JVD Respiratory: Yes: Regular, CTA Bilaterally Edema: Yes Edema: LLE: 1+, RLE: 1+ (sacral edema) Labs: CBC, BMP 06/24/19 06:45 06/25/19 07:00 INR, PTT INR 1.58 (0.83-1.09) H 06/23/19 12:45 Problem List - Problems (1) CHF exacerbation Code(s): I50.9 - HEART FAILURE, UNSPECIFIED Qualifiers: Heart failure type: unspecified Qualified Code(s): I50.9 - Heart failure, unspecified Assessment/Plan Pt with history of chronic Afib, CKD 3, HTN, COPD and chronic HfPEF. Adm with acute on chronic CHF exacerbation. ECG Afib without ischemia. 1. Afib: rate controled with atenolol and Verapamil. She is tolerating AC and is on ELiquis. 2. 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 Improved after diresis and preload reduction. -Continue with Lasix at current dose -DC montes -Monitor daily weight and electrolytes.
--- NOTE | 2019-06-25 17:23 | PN ---
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, Physician History of Present Illness: Pt seen and examined at bedside. She feels that her breathing is markedly improved. - Current Medication List Current Medications: Active Medications Albuterol Sulfate (Ventolin Hfa Inhaler -) 1 puff IH RQID PRN PRN Reason: ASTHMA Apixaban (Eliquis -) 2.5 mg PO BID [facility] Atenolol (Tenormin -) 50 mg PO BID [facility] Last Admin: 06/25/19 09:49 Dose: 50 mg Budesonide/Formoterol Fumarate (Symbicort 80/4.5mcg -) 2 puff IH BID [facility] Last Admin: 06/25/19 09:52 Dose: 2 puff Bupropion HCl (Wellbutrin Xl -) 150 mg PO DAILY [facility] Last Admin: 06/25/19 09:49 Dose: 150 mg Furosemide (Lasix Injection -) 40 mg IVPUSH BID@0600,1400 [facility] Last Admin: 06/25/19 14:07 Dose: 40 mg Gabapentin (Neurontin -) 300 mg PO TID [facility] Last Admin: 06/25/19 14:07 Dose: 300 mg Hydralazine HCl (Apresoline -) 25 mg PO TID [facility] Last Admin: 06/25/19 14:07 Dose: 25 mg Nitroglycerin/Dextrose (Nitroglycerin 25mg/D5w 250ml) 25 mg in 250 mls @ 30 mls /hr IVPB TITR [facility] Last Admin: 06/25/19 14:05 Dose: Not Given Insulin Aspart (Novolog Vial Sliding Scale -) 1 vial SQ ACHS [facility]; Protocol Last Admin: 06/25/19 16:12 Dose: Not Given Lidocaine (Lidoderm Patch -) 1 patch TP DAILY [facility] Last Admin: 06/25/19 09:50 Dose: 1 patch Miscellaneous (Lidoderm Patch Removal) 1 each MC DAILY@2200 [facility] Last Admin: 06/24/19 21:25 Dose: Not Given Oxycodone HCl (Roxicodone -) 5 mg PO Q6H PRN PRN Reason: PAIN LEVEL 6-10 Last Admin: 06/25/19 14:08 Dose: 5 mg Prednisone (Deltasone -) 40 mg PO DAILY [facility] Last Admin: 06/25/19 09:49 Dose: 40 mg Verapamil HCl (Calan -) 40 mg PO BID [facility] Last Admin: 06/25/19 09:51 Dose: 40 mg - Objective Vital Signs: Vital Signs Temperature 98.3 F 06/25/19 14:10 Pulse Rate 82 06/25/19 14:10 Respiratory Rate 18 06/25/19 14:10 Blood Pressure 161/81 06/25/19 14:10 O2 Sat by Pulse Oximetry (%) 99 06/25/19 10:49 Constitutional: Yes: Calm Eyes: Yes: Conjunctiva Clear Cardiovascular: Yes: S1, S2 Respiratory: Yes: CTA Bilaterally Gastrointestinal: Yes: Soft Musculoskeletal: Yes: WNL Edema: Yes Edema: LLE: 2+, RLE: 2+ Integumentary: Yes: WNL Neurological: Yes: Oriented Psychiatric: Yes: Oriented Labs: CBC, BMP 06/24/19 06:45 06/25/19 07:00 INR, PTT INR 1.58 (0.83-1.09) H 06/23/19 12:45 Problem List - Problems (1) CHF exacerbation Code(s): I50.9 - HEART FAILURE, UNSPECIFIED Qualifiers: Heart failure type: unspecified Qualified Code(s): I50.9 - Heart failure, unspecified (2) CHF (congestive heart failure) Code(s): I50.9 - HEART FAILURE, UNSPECIFIED Qualifiers: Heart failure type: diastolic Heart failure chronicity: unspecified Qualified Code(s): I50.30 - Unspecified diastolic (congestive) heart failure (3) CKD (chronic kidney disease) Code(s): N18.9 - CHRONIC KIDNEY DISEASE, UNSPECIFIED Assessment/Plan Current Medications Generic Name Dose Route Start Last Admin Trade Name Freq PRN Reason Stop Dose Admin Albuterol Sulfate 1 puff 06/23/19 17:28 Ventolin Hfa Inhaler - IH RQID PRN ASTHMA Apixaban 2.5 mg 06/25/19 22:00 Eliquis - PO BID [facility] Atenolol 50 mg 06/23/19 22:00 06/25/19 09:49 Tenormin - PO 50 mg BID [facility] Administration Budesonide/Formoterol Fumarate 2 puff 06/23/19 22:00 06/25/19 09:52 Symbicort 80/4.5mcg - IH 2 puff BID [facility] Administration Bupropion HCl 150 mg 06/24/19 10:00 06/25/19 09:49 Wellbutrin Xl - PO 150 mg DAILY [facility] Administration Furosemide 40 mg 06/24/19 14:00 06/25/19 14:07 Lasix Injection - IVPUSH 40 mg BID@0600,1400 [facility] Administration Gabapentin 300 mg 06/23/19 22:00 06/25/19 14:07 Neurontin - PO 300 mg TID [facility] Administration Hydralazine HCl 25 mg 06/24/19 14:15 06/25/19 14:07 Apresoline - PO 25 mg TID [facility] Administration Nitroglycerin/Dextrose 25 mg in 250 mls @ 30 mls/hr 06/23/19 12:30 06/25/19 14:05 Nitroglycerin 25mg/D5w 250ml IVPB Not Given TITR [facility] 50 MCG/MIN Insulin Aspart 1 vial 06/23/19 22:00 06/25/19 16:12 Novolog Vial Sliding Scale - SQ Not Given ACHS [facility] Protocol Lidocaine 1 patch 06/24/19 10:00 06/25/19 09:50 Lidoderm Patch - TP 1 patch DAILY [facility] Administration Miscellaneous 1 each 06/23/19 22:00 06/24/19 21:25 Lidoderm Patch Removal MC Not Given DAILY@2200 [facility] Oxycodone HCl 5 mg 06/23/19 17:28 06/25/19 14:08 Roxicodone - PO 5 mg Q6H PRN Administration PAIN LEVEL 6-10 Prednisone 40 mg 06/24/19 14:30 06/25/19 09:49 Deltasone - PO 40 mg DAILY [facility] Administration Verapamil HCl 40 mg 06/23/19 22:00 06/25/19 09:51 Calan - PO 40 mg BID [facility] Administration Laboratory Tests 06/24/19 17:20 Urine Protein Negative Urine Blood Negative Impression 1. CKD 2. CHF 3. a-fib 4. lower ext edema 5. COPD 6. active smoker 7. non compliance Plan - renal function near baseline - cont with lasix - ua neg for blood or protein - check urine cultures - discussed compliance
[2019-06-25] MEDS: LIDOCAINE PATCH REMOVAL MC SCH (21:07)
[2019-06-25] MEDS: APIXABAN 2.5 MG TABLET PO SCH (21:07)
[2019-06-26 01:02] LABS: URINE APPEARANCE CLEAR; URINE BILIRUBIN NEGATIVE (NEGATIVE); URINE COLOR YELLOW; URINE GLUCOSE (UA) NEGATIVE (NEGATIVE); URINE KETONE NEGATIVE (NEGATIVE); URINE LEUK ESTERASE NEGATIVE (NEGATIVE); URINE NITRITE NEGATIVE (NEGATIVE); URINE PROTEIN NEGATIVE (NEGATIVE); URINE UROBILINOGEN 0.2 mg/dL (0.2-1.0)
[2019-06-26] MEDS: GABAPENTIN 300 MG CAPSULE (FP) PO SCH ×3 (05:08→21:12)
[2019-06-26] MEDS: oxyCODONE HCL 5 MG TABLET PO PRN ×3 (05:08→19:10)
[2019-06-26] MEDS: hydrALAZINE HCL 25 MG TABLET (FP) PO SCH ×3 (05:08→21:11)
[2019-06-26] MEDS: FUROSEMIDE 40 MG/4 ML INJECTABLE VIAL IVPUSH SCH ×2 (06:29→13:44)
[2019-06-26] MEDS: INSULIN SLIDING SCALE (NOVOLOG) 1 VIAL SQ SCH ×4 (06:29→22:13)
--- NOTE | 2019-06-26 08:48 | PN ---
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 (short form) - Note 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: Renal follow up for CKD/Fluid overload Coverage for Dr. Akhtar Seen and examined at the bedside awake and alert feels better wants to go home making urine no sob today Vital Signs Temperature 98.4 F 06/26/19 06:00 Pulse Rate 86 06/26/19 06:00 Respiratory Rate 18 06/26/19 06:00 Blood Pressure 143/78 06/26/19 06:00 O2 Sat by Pulse Oximetry (%) 98 06/25/19 21:00 Intake & Output 06/23/19 06/24/19 06/25/19 06/26/19 23:59 23:59 23:59 23:59 Intake Total 315 800 510 270 Output Total 578 479 3551 Balance 65 0 -490 270 Weight 69.513 kg 69.309 kg 70.398 kg NAD awake and alert CTA no LE edema CBC, BMP 06/24/19 06:45 06/25/19 07:00 Current Medications Albuterol Sulfate (Ventolin Hfa Inhaler -) 1 puff IH RQID PRN PRN Reason: ASTHMA Apixaban (Eliquis -) 2.5 mg PO BID [facility] Last Admin: 06/25/19 21:07 Dose: 2.5 mg Atenolol (Tenormin -) 50 mg PO BID [facility] Last Admin: 06/25/19 21:08 Dose: 50 mg Budesonide/Formoterol Fumarate (Symbicort 80/4.5mcg -) 2 puff IH BID [facility] Last Admin: 06/25/19 21:08 Dose: 2 puff Bupropion HCl (Wellbutrin Xl -) 150 mg PO DAILY [facility] Last Admin: 06/25/19 09:49 Dose: 150 mg Furosemide (Lasix Injection -) 40 mg IVPUSH BID@0600,1400 [facility] Last Admin: 06/26/19 06:29 Dose: 40 mg Gabapentin (Neurontin -) 300 mg PO TID [facility] Last Admin: 06/26/19 05:08 Dose: 300 mg Hydralazine HCl (Apresoline -) 25 mg PO TID [facility] Last Admin: 06/26/19 05:08 Dose: 25 mg Nitroglycerin/Dextrose (Nitroglycerin 25mg/D5w 250ml) 25 mg in 250 mls @ 30 mls /hr IVPB TITR [facility] Last Admin: 06/25/19 14:05 Dose: Not Given Insulin Aspart (Novolog Vial Sliding Scale -) 1 vial SQ ACHS [facility]; Protocol Last Admin: 06/26/19 06:29 Dose: Not Given Lidocaine (Lidoderm Patch -) 1 patch TP DAILY [facility] Last Admin: 06/25/19 09:50 Dose: 1 patch Miscellaneous (Lidoderm Patch Removal) 1 each MC DAILY@2200 [facility] Last Admin: 06/25/19 21:07 Dose: Not Given Oxycodone HCl (Roxicodone -) 5 mg PO Q6H PRN PRN Reason: PAIN LEVEL 6-10 Last Admin: 06/26/19 05:08 Dose: 5 mg Prednisone (Deltasone -) 40 mg PO DAILY [facility] Last Admin: 06/25/19 09:49 Dose: 40 mg Verapamil HCl (Calan -) 40 mg PO BID [facility] Last Admin: 06/25/19 21:06 Dose: 40 mg Impression 1. CKD 2. CHF 3. a-fib 4. lower ext edema 5. COPD 6. active smoker 7. non compliance Plan todays labs pending Renal function had been stable thus far volume status improved continue Lasix, can consider transition to oral Trend BMP, Mg while on IV diuretics Ajit Vick DO
[2019-06-26] MEDS: APIXABAN 2.5 MG TABLET PO SCH ×2 (10:06→21:12)
[2019-06-26] MEDS: ATENOLOL 50 MG TABLET (FP) PO SCH ×2 (10:06→21:11)
[2019-06-26] MEDS: predniSONE 20 MG TABLET (UD) PO SCH (10:06)
[2019-06-26] MEDS: VERAPAMIL HCL 40 MG TABLET (FP) PO SCH ×2 (10:06→22:12)
[2019-06-26] MEDS: LIDOCAINE 5% TOPICAL PATCH TP SCH (10:07)
--- NOTE | 2019-06-26 10:23 | PN ---
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, Physician History of Present Illness: PULMONARY ALERT,COMFORTABLE,-RESP DISTRESS,-CP - Current Medication List Current Medications: Active Medications Albuterol Sulfate (Ventolin Hfa Inhaler -) 1 puff IH RQID PRN PRN Reason: ASTHMA Apixaban (Eliquis -) 2.5 mg PO BID [facility] Last Admin: 06/26/19 10:06 Dose: 2.5 mg Atenolol (Tenormin -) 50 mg PO BID [facility] Last Admin: 06/26/19 10:06 Dose: 50 mg Budesonide/Formoterol Fumarate (Symbicort 80/4.5mcg -) 2 puff IH BID [facility] Last Admin: 06/25/19 21:08 Dose: 2 puff Bupropion HCl (Wellbutrin Xl -) 150 mg PO DAILY [facility] Last Admin: 06/26/19 10:07 Dose: 150 mg Furosemide (Lasix Injection -) 40 mg IVPUSH BID@0600,1400 [facility] Last Admin: 06/26/19 06:29 Dose: 40 mg Gabapentin (Neurontin -) 300 mg PO TID [facility] Last Admin: 06/26/19 05:08 Dose: 300 mg Hydralazine HCl (Apresoline -) 25 mg PO TID [facility] Last Admin: 06/26/19 05:08 Dose: 25 mg Nitroglycerin/Dextrose (Nitroglycerin 25mg/D5w 250ml) 25 mg in 250 mls @ 30 mls /hr IVPB TITR [facility] Last Admin: 06/25/19 14:05 Dose: Not Given Insulin Aspart (Novolog Vial Sliding Scale -) 1 vial SQ ACHS [facility]; Protocol Last Admin: 06/26/19 06:29 Dose: Not Given Lidocaine (Lidoderm Patch -) 1 patch TP DAILY [facility] Last Admin: 06/26/19 10:07 Dose: 1 patch Miscellaneous (Lidoderm Patch Removal) 1 each MC DAILY@2200 [facility] Last Admin: 06/25/19 21:07 Dose: Not Given Oxycodone HCl (Roxicodone -) 5 mg PO Q6H PRN PRN Reason: PAIN LEVEL 6-10 Last Admin: 06/26/19 05:08 Dose: 5 mg Prednisone (Deltasone -) 40 mg PO DAILY [facility] Last Admin: 06/26/19 10:06 Dose: 40 mg Verapamil HCl (Calan -) 40 mg PO BID [facility] Last Admin: 06/26/19 10:06 Dose: 40 mg - Objective Vital Signs: Vital Signs Temperature 98.4 F 06/26/19 06:00 Pulse Rate 86 06/26/19 06:00 Respiratory Rate 18 06/26/19 06:00 Blood Pressure 143/78 06/26/19 06:00 O2 Sat by Pulse Oximetry (%) 98 06/25/19 21:00 Constitutional: Yes: Well Nourished, Calm Eyes: Yes: WNL HENT: Yes: WNL Neck: Yes: WNL Cardiovascular: Yes: Pulse Irregular, S1, S2 Respiratory: Yes: Rales (BIBASILAR CRACKLES) Gastrointestinal: Yes: Normal Bowel Sounds, Soft Extremities: Yes: WNL Edema: Yes Labs: CBC, BMP Assessment/Plan Problem List - Problems (1) Acute exacerbation of chronic obstructive pulmonary disease (COPD) Code(s): J44.1 - CHRONIC OBSTRUCTIVE PULMONARY DISEASE W (ACUTE) EXACERBATION (2) CHF exacerbation Code(s): I50.9 - HEART FAILURE, UNSPECIFIED Qualifiers: Heart failure type: unspecified Qualified Code(s): I50.9 - Heart failure, unspecified (3) Afib Code(s): I48.91 - UNSPECIFIED ATRIAL FIBRILLATION Qualifiers: Atrial fibrillation type: unspecified Qualified Code(s): I48.91 - Unspecified atrial fibrillation (4) Anxiety and depression Code(s): F41.9 - ANXIETY DISORDER, UNSPECIFIED; F32.9 - MAJOR DEPRESSIVE DISORDER, SINGLE EPISODE, UNSPECIFIED (5) CHF (congestive heart failure) Code(s): I50.9 - HEART FAILURE, UNSPECIFIED Qualifiers: Heart failure type: diastolic Heart failure chronicity: unspecified Qualified Code(s): I50.30 - Unspecified diastolic (congestive) heart failure (6) CKD (chronic kidney disease) Code(s): N18.9 - CHRONIC KIDNEY DISEASE, UNSPECIFIED (7) Chronic back pain Code(s): M54.9 - DORSALGIA, UNSPECIFIED; G89.29 - OTHER CHRONIC PAIN Qualifiers: Back pain location: low back pain Back pain laterality: bilateral Sciatica presence: with sciatica Sciatica laterality: bilateral sciatica Qualified Code(s): M54.42 - Lumbago with sciatica, left side; M54.41 - Lumbago with sciatica, right side; G89.29 - Other chronic pain (8) Constipation Code(s): K59.00 - CONSTIPATION, UNSPECIFIED (9) Cough Code(s): R05 - COUGH (10) Hypertension Code(s): I10 - ESSENTIAL (PRIMARY) HYPERTENSION (11) Leg edema Code(s): R60.0 - LOCALIZED EDEMA (12) Penicillin allergy Code(s): Z88.0 - ALLERGY STATUS TO PENICILLIN (13) COPD (chronic obstructive pulmonary disease) Code(s): J44.9 - CHRONIC OBSTRUCTIVE PULMONARY DISEASE, UNSPECIFIED Qualifiers: COPD type: COPD with acute exacerbation Qualified Code(s): J44.1 - Chronic obstructive pulmonary disease with (acute) exacerbation (14) Cigarette nicotine dependence Code(s): F17.200 - NICOTINE DEPENDENCE, UNSPECIFIED, UNCOMPLICATED (15) Diabetes Code(s): E11.9 - TYPE 2 DIABETES MELLITUS WITHOUT COMPLICATIONS Qualifiers: Diabetes mellitus type: type 2 (16) Hyperlipidemia Code(s): E78.5 - HYPERLIPIDEMIA, UNSPECIFIED 17 ACUTE ON CHRONIC KIDNEY INJURY Assessment/Plan Prednisone 40mg OD Lasix daily Daily weights Symbicort BD TX No smoking counseled Monitor I & O MONITOR LYTES,RENAL FUNCTION DR ROLLE
[2019-06-26] MEDS: BUDESONIDE/FORMETEROL FUMARATE 80/4.5 mcg INHALER IH SCH ×2 (10:52→21:12)
[2019-06-26 11:35] LABS: BLOOD UREA NITROGEN 38.4 mg/dL (7-18); CALCIUM 8.4 mg/dL (8.5-10.1); CREATININE 1.9 mg/dL (0.55-1.3); POTASSIUM 3.3 mmol/L (3.5-5.1)
--- NOTE | 2019-06-26 11:47 | PN ---
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, Physician - Current Medication List Current Medications: Active Medications Albuterol Sulfate (Ventolin Hfa Inhaler -) 1 puff IH RQID PRN PRN Reason: ASTHMA Apixaban (Eliquis -) 2.5 mg PO BID [facility] Last Admin: 06/26/19 10:06 Dose: 2.5 mg Atenolol (Tenormin -) 50 mg PO BID [facility] Last Admin: 06/26/19 10:06 Dose: 50 mg Budesonide/Formoterol Fumarate (Symbicort 80/4.5mcg -) 2 puff IH BID [facility] Last Admin: 06/26/19 10:52 Dose: 2 puff Bupropion HCl (Wellbutrin Xl -) 150 mg PO DAILY [facility] Last Admin: 06/26/19 10:07 Dose: 150 mg Furosemide (Lasix Injection -) 40 mg IVPUSH BID@0600,1400 [facility] Last Admin: 06/26/19 06:29 Dose: 40 mg Gabapentin (Neurontin -) 300 mg PO TID [facility] Last Admin: 06/26/19 05:08 Dose: 300 mg Hydralazine HCl (Apresoline -) 25 mg PO TID [facility] Last Admin: 06/26/19 05:08 Dose: 25 mg Nitroglycerin/Dextrose (Nitroglycerin 25mg/D5w 250ml) 25 mg in 250 mls @ 30 mls /hr IVPB TITR [facility] Last Admin: 06/25/19 14:05 Dose: Not Given Insulin Aspart (Novolog Vial Sliding Scale -) 1 vial SQ [facility]; Protocol Last Admin: 06/26/19 06:29 Dose: Not Given Lidocaine (Lidoderm Patch -) 1 patch TP DAILY [facility] Last Admin: 06/26/19 10:07 Dose: 1 patch Miscellaneous (Lidoderm Patch Removal) 1 each MC DAILY@2200 [facility] Last Admin: 06/25/19 21:07 Dose: Not Given Oxycodone HCl (Roxicodone -) 5 mg PO Q6H PRN PRN Reason: PAIN LEVEL 6-10 Last Admin: 06/26/19 10:52 Dose: 5 mg Prednisone (Deltasone -) 40 mg PO DAILY [facility] Last Admin: 06/26/19 10:06 Dose: 40 mg Verapamil HCl (Calan -) 40 mg PO BID [facility] Last Admin: 06/26/19 10:06 Dose: 40 mg - Objective Vital Signs: Vital Signs Temperature 98.1 F 06/26/19 10:00 Pulse Rate 71 06/26/19 10:00 Respiratory Rate 18 06/26/19 10:00 Blood Pressure 166/79 06/26/19 10:00 O2 Sat by Pulse Oximetry (%) 98 06/26/19 09:00 Cardiovascular: Yes: S1, S2 Respiratory: Yes: On Nasal O2, Rales Gastrointestinal: Yes: Normal Bowel Sounds, Soft Edema: Yes Labs: CBC, BMP 06/24/19 06:45 06/26/19 10:35 INR, PTT INR 1.58 (0.83-1.09) H 06/23/19 12:45 Assessment/Plan - Problems (1) CHF exacerbation Assessment/Plan: daily weight iv lasix bid monitor lytes cardiology and pulm consults oxygen maintain saturat>90 iv nitro drip--off hydralazine tenormin Code(s): I50.9 - HEART FAILURE, UNSPECIFIED Qualifiers: Heart failure type: unspecified Qualified Code(s): I50.9 - Heart failure, unspecified (2) Afib Assessment/Plan: AC rate control Code(s): I48.91 - UNSPECIFIED ATRIAL FIBRILLATION Qualifiers: Atrial fibrillation type: unspecified Qualified Code(s): I48.91 - Unspecified atrial fibrillation (3) CKD (chronic kidney disease) Assessment/Plan: renal on board trend bun/cr continue iv lasix Code(s): N18.9 - CHRONIC KIDNEY DISEASE, UNSPECIFIED (4) COPD (chronic obstructive pulmonary disease) Assessment/Plan: oxygen and bronchodilators and symbicort prednsione 40mg Code(s): J44.9 - CHRONIC OBSTRUCTIVE PULMONARY DISEASE, UNSPECIFIED Qualifiers: COPD type: COPD with acute exacerbation Qualified Code(s): J44.1 - Chronic obstructive pulmonary disease with (acute) exacerbation
[2019-06-26 11:58] VITALS: BMI 27.4
[2019-06-26] MEDS: NITROGLYCERIN 25MG/D5W 250ML 25 MG/250 ML ML IVPB SCH (13:44)
--- NOTE | 2019-06-26 19:09 | PN ---
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, Physician Chief Complaint: The patient appears comfortable at the time of exam. He reports no chest pain, recurrent shortness of breath or palpitation. Telemetry record reviewed. It shows persistent atrial fibrillation with controlled VR (65-70 bpm). Episodes of short mild slow afib noted. No pauses longes than 3 seconds. History of Present Illness: 59 year-old woman with a PMHx of HTN, CKD 3, long-standing persistent afib and chronic diastolic CHF with a few admissions for CHF decompensation and rapid AF. She has COPD and is on chronic O2. Currently still smokes, admitted with SOB and edema after running out of Lasix, treated with IV NTG and given diuretics with improvement of symptoms. Remains in afib with controlled VR. Cardiac testing: Echocardiogram 04/2019 Normal LV function and normal RV fxn. Moderate MR, mod- severe AR and TR PASP 40mmHg. Lexiscan NST no ischemia. - Current Medication List Current Medications: Active Medications Albuterol Sulfate (Ventolin Hfa Inhaler -) 1 puff IH RQID PRN PRN Reason: ASTHMA Apixaban (Eliquis -) 2.5 mg PO BID [facility] Last Admin: 06/26/19 10:06 Dose: 2.5 mg Atenolol (Tenormin -) 50 mg PO BID [facility] Last Admin: 06/26/19 10:06 Dose: 50 mg Budesonide/Formoterol Fumarate (Symbicort 80/4.5mcg -) 2 puff IH BID [facility] Last Admin: 06/26/19 10:52 Dose: 2 puff Bupropion HCl (Wellbutrin Xl -) 150 mg PO DAILY [facility] Last Admin: 06/26/19 10:07 Dose: 150 mg Furosemide (Lasix Injection -) 40 mg IVPUSH BID@0600,1400 [facility] Last Admin: 06/26/19 13:44 Dose: 40 mg Gabapentin (Neurontin -) 300 mg PO TID [facility] Last Admin: 06/26/19 13:44 Dose: 300 mg Hydralazine HCl (Apresoline -) 25 mg PO TID [facility] Last Admin: 06/26/19 13:44 Dose: 25 mg Nitroglycerin/Dextrose (Nitroglycerin 25mg/D5w 250ml) 25 mg in 250 mls @ 30 mls /hr IVPB TITR [facility] Last Admin: 06/26/19 13:44 Dose: Not Given Insulin Aspart (Novolog Vial Sliding Scale -) 1 vial SQ ACHS [facility]; Protocol Last Admin: 06/26/19 17:33 Dose: 2 units Lidocaine (Lidoderm Patch -) 1 patch TP DAILY [facility] Last Admin: 06/26/19 10:07 Dose: 1 patch Miscellaneous (Lidoderm Patch Removal) 1 each MC DAILY@2200 [facility] Last Admin: 06/25/19 21:07 Dose: Not Given Oxycodone HCl (Roxicodone -) 5 mg PO Q6H PRN PRN Reason: PAIN LEVEL 6-10 Prednisone (Deltasone -) 40 mg PO DAILY [facility] Last Admin: 06/26/19 10:06 Dose: 40 mg Verapamil HCl (Calan -) 40 mg PO BID [facility] Last Admin: 06/26/19 10:06 Dose: 40 mg - Objective Vital Signs: Vital Signs Temperature 97.8 F 06/26/19 14:00 Pulse Rate 109 H 06/26/19 14:00 Respiratory Rate 20 06/26/19 14:00 Blood Pressure 167/89 06/26/19 14:00 O2 Sat by Pulse Oximetry (%) 98 06/26/19 09:00 General: Well developed. Well nourished. No acute distress. Head: Normocephalic. Atraumatic, Eyes: PERRLA, EOMI. Sclerae anicteric. Conjunctivae clear. Neck: Supple. No JVD. No bruits. Heart: Normal S1, S2: Irregular rhythm and rate. No murmur. No gallop or rub. Lungs: Symmetrical air entry. Clear to auscultation. No crackle. No wheezing or rhonchi. Abdomen: Soft. Bowel sound positive. Non tender. No masses. Extremities: No edema. No clubbing or cyanosis. PD 2+, equal bilaterally. Neuro: Intact, no focal findings. AAO X3 Labs: CBC, BMP 06/24/19 06:45 06/26/19 10:35 INR, PTT INR 1.58 (0.83-1.09) H 06/23/19 12:45 Assessment/Plan 59 year-old woman with a PMHx of HTN, CKD 3, long-standing persistent afib and chronic diastolic CHF with a few admissions for CHF decompensation and rapid AF. She has COPD and is on chronic O2. Currently still smokes, admitted with SOB and edema after running out of Lasix, treated with IV NTG and given diuretics with improvement of symptoms. Remains in afib with controlled VR. Cardiac testing: Echocardiogram 04/2019 Normal LV function and normal RV fxn. Moderate MR, mod- severe AR and TR PASP 40mmHg. Lexiscan NST no ischemia. 1. Long standing persistent atrial fibrillation: rate controled with atenolol 5 mg BID and verapamil 40 mg BID. She is tolerating AC and is on ELiquis 2.5 mg BID. 2. 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 Improved after diresis and preload reduction. -Continue with Lasix at current dose -Monitor daily weight and electrolytes while in the hospital. Please do not hesitate to call us for re-consult at any time if any further questions or additional issue arises regarding this patient.
[2019-06-26] MEDS ORDERED: PT OWN MED DRAWER 7, Y5N ONE (20:58)
[2019-06-26] MEDS: LIDOCAINE PATCH REMOVAL MC SCH (22:13)
[2019-06-27] MEDS: oxyCODONE HCL 5 MG TABLET PO PRN ×4 (00:33→21:15)
[2019-06-27] MEDS: INSULIN SLIDING SCALE (NOVOLOG) 1 VIAL SQ SCH ×4 (06:04→21:38)
[2019-06-27] MEDS: FUROSEMIDE 40 MG/4 ML INJECTABLE VIAL IVPUSH SCH ×2 (06:04→13:18)
[2019-06-27] MEDS: GABAPENTIN 300 MG CAPSULE (FP) PO SCH ×3 (06:04→21:13)
[2019-06-27] MEDS: hydrALAZINE HCL 25 MG TABLET (FP) PO SCH ×3 (06:04→21:14)
[2019-06-27 07:12] LABS: BILIRUBIN,TOTAL 0.7 mg/dL (0.2-1); CALCIUM 8.2 mg/dL (8.5-10.1); CREATININE 1.8 mg/dL (0.55-1.3); MAGNESIUM 2.3 mg/dL (1.8-2.4); PHOSPHOROUS 3.4 mg/dL (2.5-4.9); POTASSIUM 3.4 mmol/L (3.5-5.1); TOT PROT 6.7 g/dl (6.4-8.2)
[2019-06-27 07:29] LABS: BASO % 0.4 % (0-2.0); HEMATOCRIT 35.9 % (32.4-45.2); HEMOGLOBIN 11.5 GM/dL (10.7-15.3); MCH 29.3 pg (25.7-33.7); MCHC 32.1 g/dl (32.0-36.0); MEAN CELL VOLUME 91.1 fl (80-96); MEAN PLT VOLUME 10.2 fl (7.5-11.1); MONO % 10.6 % (3.8-10.2); PLATELET COUNT 121 K/MM3 (134-434); RBC 3.94 M/mm3 (3.60-5.2); RDW 19.1 % (11.6-15.6); WHITE BLOOD COUNT 5.4 K/mm3 (4.0-10.0)
[2019-06-27] MEDS ORDERED: PT OWN MED DRAWER 7, Y5N ONE ×3 (08:57→13:13)
[2019-06-27] MEDS: APIXABAN 2.5 MG TABLET PO SCH ×2 (09:01→21:14)
[2019-06-27] MEDS: predniSONE 20 MG TABLET (UD) PO SCH (09:01)
[2019-06-27] MEDS: ATENOLOL 50 MG TABLET (FP) PO SCH ×2 (09:01→21:14)
[2019-06-27] MEDS: VERAPAMIL HCL 40 MG TABLET (FP) PO SCH (09:02)
[2019-06-27] MEDS: BUDESONIDE/FORMETEROL FUMARATE 80/4.5 mcg INHALER IH SCH ×2 (09:02→21:14)
[2019-06-27] MEDS: LIDOCAINE 5% TOPICAL PATCH TP SCH (09:02)
--- NOTE | 2019-06-27 10:30 | PN ---
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, Physician History of Present Illness: PULMONARY COMFORTABLE,-SOB,-CP - Current Medication List Current Medications: Active Medications Albuterol Sulfate (Ventolin Hfa Inhaler -) 1 puff IH RQID PRN PRN Reason: ASTHMA Apixaban (Eliquis -) 2.5 mg PO BID [facility] Last Admin: 06/27/19 09:01 Dose: 2.5 mg Atenolol (Tenormin -) 50 mg PO BID [facility] Last Admin: 06/27/19 09:01 Dose: 50 mg Budesonide/Formoterol Fumarate (Symbicort 80/4.5mcg -) 2 puff IH BID [facility] Last Admin: 06/27/19 09:02 Dose: 2 puff Bupropion HCl (Wellbutrin Xl -) 150 mg PO DAILY [facility] Last Admin: 06/27/19 09:01 Dose: 150 mg Furosemide (Lasix Injection -) 40 mg IVPUSH BID@0600,1400 [facility] Last Admin: 06/27/19 06:04 Dose: 40 mg Gabapentin (Neurontin -) 300 mg PO TID [facility] Last Admin: 06/27/19 06:04 Dose: 300 mg Hydralazine HCl (Apresoline -) 25 mg PO TID [facility] Last Admin: 06/27/19 06:04 Dose: 25 mg Nitroglycerin/Dextrose (Nitroglycerin 25mg/D5w 250ml) 25 mg in 250 mls @ 30 mls /hr IVPB TITR [facility] Last Admin: 06/26/19 13:44 Dose: Not Given Insulin Aspart (Novolog Vial Sliding Scale -) 1 vial SQ ACHS [facility]; Protocol Last Admin: 06/27/19 06:04 Dose: Not Given Lidocaine (Lidoderm Patch -) 1 patch TP DAILY [facility] Last Admin: 06/27/19 09:02 Dose: 1 patch Miscellaneous (Lidoderm Patch Removal) 1 each MC DAILY@2200 [facility] Last Admin: 06/26/19 22:13 Dose: Not Given Oxycodone HCl (Roxicodone -) 5 mg PO Q6H PRN PRN Reason: PAIN LEVEL 6-10 Last Admin: 06/27/19 09:01 Dose: 5 mg Prednisone (Deltasone -) 40 mg PO DAILY [facility] Last Admin: 06/27/19 09:01 Dose: 40 mg Verapamil HCl (Calan -) 40 mg PO BID [facility] Last Admin: 06/27/19 09:02 Dose: 40 mg - Objective Vital Signs: Vital Signs Temperature 98.4 F 06/27/19 05:21 Pulse Rate 64 06/27/19 05:21 Respiratory Rate 20 06/27/19 05:21 Blood Pressure 172/90 H 06/27/19 05:21 O2 Sat by Pulse Oximetry (%) 96 06/26/19 21:00 Constitutional: Yes: Well Nourished, Calm Eyes: Yes: WNL HENT: Yes: WNL Neck: Yes: WNL Cardiovascular: Yes: Pulse Irregular, S1, S2 Respiratory: Yes: Diminished Gastrointestinal: Yes: Normal Bowel Sounds, Soft Extremities: Yes: WNL Edema: No Labs: CBC, BMP 06/27/19 05:50 06/27/19 05:50 INR, PTT INR 1.58 (0.83-1.09) H 06/23/19 12:45 Assessment/Plan Problem List - Problems (1) Acute exacerbation of chronic obstructive pulmonary disease (COPD) Code(s): J44.1 - CHRONIC OBSTRUCTIVE PULMONARY DISEASE W (ACUTE) EXACERBATION (2) CHF exacerbation Code(s): I50.9 - HEART FAILURE, UNSPECIFIED Qualifiers: Heart failure type: unspecified Qualified Code(s): I50.9 - Heart failure, unspecified (3) Afib Code(s): I48.91 - UNSPECIFIED ATRIAL FIBRILLATION Qualifiers: Atrial fibrillation type: unspecified Qualified Code(s): I48.91 - Unspecified atrial fibrillation (4) Anxiety and depression Code(s): F41.9 - ANXIETY DISORDER, UNSPECIFIED; F32.9 - MAJOR DEPRESSIVE DISORDER, SINGLE EPISODE, UNSPECIFIED (5) CHF (congestive heart failure) Code(s): I50.9 - HEART FAILURE, UNSPECIFIED Qualifiers: Heart failure type: diastolic Heart failure chronicity: unspecified Qualified Code(s): I50.30 - Unspecified diastolic (congestive) heart failure (6) CKD (chronic kidney disease) Code(s): N18.9 - CHRONIC KIDNEY DISEASE, UNSPECIFIED (7) Chronic back pain Code(s): M54.9 - DORSALGIA, UNSPECIFIED; G89.29 - OTHER CHRONIC PAIN Qualifiers: Back pain location: low back pain Back pain laterality: bilateral Sciatica presence: with sciatica Sciatica laterality: bilateral sciatica Qualified Code(s): M54.42 - Lumbago with sciatica, left side; M54.41 - Lumbago with sciatica, right side; G89.29 - Other chronic pain (8) Constipation Code(s): K59.00 - CONSTIPATION, UNSPECIFIED (9) Cough Code(s): R05 - COUGH (10) Hypertension Code(s): I10 - ESSENTIAL (PRIMARY) HYPERTENSION (11) Leg edema Code(s): R60.0 - LOCALIZED EDEMA (12) Penicillin allergy Code(s): Z88.0 - ALLERGY STATUS TO PENICILLIN (13) COPD (chronic obstructive pulmonary disease) Code(s): J44.9 - CHRONIC OBSTRUCTIVE PULMONARY DISEASE, UNSPECIFIED Qualifiers: COPD type: COPD with acute exacerbation Qualified Code(s): J44.1 - Chronic obstructive pulmonary disease with (acute) exacerbation (14) Cigarette nicotine dependence Code(s): F17.200 - NICOTINE DEPENDENCE, UNSPECIFIED, UNCOMPLICATED (15) Diabetes Code(s): E11.9 - TYPE 2 DIABETES MELLITUS WITHOUT COMPLICATIONS Qualifiers: Diabetes mellitus type: type 2 (16) Hyperlipidemia Code(s): E78.5 - HYPERLIPIDEMIA, UNSPECIFIED 17 ACUTE ON CHRONIC KIDNEY INJURY Assessment/Plan Prednisone 40mg OD Lasix daily Daily weights Symbicort BD TX No smoking counseled rate control Monitor I & O MONITOR LYTES,RENAL FUNCTION DR ROLLE
[2019-06-27] MEDS ORDERED: POTASSIUM CHLORIDE TABS 20 MEQ TABLET.ER (FP) PO ONE (10:35)
--- NOTE | 2019-06-27 10:35 | PN ---
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 (short form) - Note 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: Renal follow up for CKD/Fluid overload Coverage for Dr. Akhtar Seen and examined at the bedside awake and alert no acute complaints no sob, cp, abd pain, fever or chills Vital Signs Temperature 98.4 F 06/27/19 05:21 Pulse Rate 64 06/27/19 05:21 Respiratory Rate 20 06/27/19 05:21 Blood Pressure 172/90 H 06/27/19 05:21 O2 Sat by Pulse Oximetry (%) 96 06/26/19 21:00 Intake & Output 06/24/19 06/25/19 06/26/19 06/27/19 23:59 23:59 23:59 23:59 Intake Total 270 308 9409 550 Output Total 800 1000 400 Balance 0 -490 1170 550 Weight 69.309 kg 70.307 kg 70.398 kg 70.851 kg NAD awake and alert CTA no LE edema CBC, BMP 06/27/19 05:50 06/27/19 05:50 Current Medications Albuterol Sulfate (Ventolin Hfa Inhaler -) 1 puff IH RQID PRN PRN Reason: ASTHMA Apixaban (Eliquis -) 2.5 mg PO BID [facility] Last Admin: 06/27/19 09:01 Dose: 2.5 mg Atenolol (Tenormin -) 50 mg PO BID [facility] Last Admin: 06/27/19 09:01 Dose: 50 mg Budesonide/Formoterol Fumarate (Symbicort 80/4.5mcg -) 2 puff IH BID [facility] Last Admin: 06/27/19 09:02 Dose: 2 puff Bupropion HCl (Wellbutrin Xl -) 150 mg PO DAILY [facility] Last Admin: 06/27/19 09:01 Dose: 150 mg Furosemide (Lasix Injection -) 40 mg IVPUSH BID@0600,1400 [facility] Last Admin: 06/27/19 06:04 Dose: 40 mg Gabapentin (Neurontin -) 300 mg PO TID [facility] Last Admin: 06/27/19 06:04 Dose: 300 mg Hydralazine HCl (Apresoline -) 25 mg PO TID [facility] Last Admin: 06/27/19 06:04 Dose: 25 mg Nitroglycerin/Dextrose (Nitroglycerin 25mg/D5w 250ml) 25 mg in 250 mls @ 30 mls /hr IVPB TITR [facility] Last Admin: 06/26/19 13:44 Dose: Not Given Insulin Aspart (Novolog Vial Sliding Scale -) 1 vial SQ ACHS [facility]; Protocol Last Admin: 06/27/19 06:04 Dose: Not Given Lidocaine (Lidoderm Patch -) 1 patch TP DAILY [facility] Last Admin: 06/27/19 09:02 Dose: 1 patch Miscellaneous (Lidoderm Patch Removal) 1 each MC DAILY@2200 [facility] Last Admin: 06/26/19 22:13 Dose: Not Given Oxycodone HCl (Roxicodone -) 5 mg PO Q6H PRN PRN Reason: PAIN LEVEL 6-10 Last Admin: 06/27/19 09:01 Dose: 5 mg Prednisone (Deltasone -) 40 mg PO DAILY [facility] Last Admin: 06/27/19 09:01 Dose: 40 mg Verapamil HCl (Calan -) 40 mg PO BID [facility] Last Admin: 06/27/19 09:02 Dose: 40 mg Impression 1. CKD 2. CHF 3. a-fib 4. lower ext edema 5. COPD 6. active smoker 7. non compliance\ 8. hyokalemia Plan Renal function stable no overt electrolyte or acid/base disturbance volume status improved continue Lasix, can consider transition to oral when ok with cardiology Trend BMP, Mg while on IV diuretics supplement K today Ajit Vick DO
--- NOTE | 2019-06-27 10:47 | PN ---
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, Physician - Current Medication List Current Medications: Active Medications Albuterol Sulfate (Ventolin Hfa Inhaler -) 1 puff IH RQID PRN PRN Reason: ASTHMA Apixaban (Eliquis -) 2.5 mg PO BID [facility] Last Admin: 06/27/19 09:01 Dose: 2.5 mg Atenolol (Tenormin -) 50 mg PO BID [facility] Last Admin: 06/27/19 09:01 Dose: 50 mg Budesonide/Formoterol Fumarate (Symbicort 80/4.5mcg -) 2 puff IH BID [facility] Last Admin: 06/27/19 09:02 Dose: 2 puff Bupropion HCl (Wellbutrin Xl -) 150 mg PO DAILY [facility] Last Admin: 06/27/19 09:01 Dose: 150 mg Furosemide (Lasix Injection -) 40 mg IVPUSH BID@0600,1400 [facility] Last Admin: 06/27/19 06:04 Dose: 40 mg Gabapentin (Neurontin -) 300 mg PO TID [facility] Last Admin: 06/27/19 06:04 Dose: 300 mg Hydralazine HCl (Apresoline -) 25 mg PO TID [facility] Last Admin: 06/27/19 06:04 Dose: 25 mg Nitroglycerin/Dextrose (Nitroglycerin 25mg/D5w 250ml) 25 mg in 250 mls @ 30 mls /hr IVPB TITR [facility] Last Admin: 06/26/19 13:44 Dose: Not Given Insulin Aspart (Novolog Vial Sliding Scale -) 1 vial SQ [facility]; Protocol Last Admin: 06/27/19 06:04 Dose: Not Given Lidocaine (Lidoderm Patch -) 1 patch TP DAILY [facility] Last Admin: 06/27/19 09:02 Dose: 1 patch Miscellaneous (Lidoderm Patch Removal) 1 each MC DAILY@2200 [facility] Last Admin: 06/26/19 22:13 Dose: Not Given Oxycodone HCl (Roxicodone -) 5 mg PO Q6H PRN PRN Reason: PAIN LEVEL 6-10 Last Admin: 06/27/19 09:01 Dose: 5 mg Potassium Chloride (K-Dur -) 40 meq PO ONCE ONE Stop: 06/27/19 10:36 Prednisone (Deltasone -) 40 mg PO DAILY [facility] Last Admin: 06/27/19 09:01 Dose: 40 mg Verapamil HCl (Calan -) 40 mg PO BID [facility] Last Admin: 06/27/19 09:02 Dose: 40 mg - Objective Vital Signs: Vital Signs Temperature 98.4 F 06/27/19 05:21 Pulse Rate 64 06/27/19 05:21 Respiratory Rate 20 06/27/19 05:21 Blood Pressure 172/90 H 06/27/19 05:21 O2 Sat by Pulse Oximetry (%) 96 06/26/19 21:00 Cardiovascular: Yes: S1, S2 Respiratory: Yes: Regular, CTA Bilaterally Gastrointestinal: Yes: Normal Bowel Sounds, Soft Labs: CBC, BMP 06/27/19 05:50 06/27/19 05:50 INR, PTT INR 1.58 (0.83-1.09) H 06/23/19 12:45 Assessment/Plan - Problems (1) CHF exacerbation Assessment/Plan: daily weight iv lasix bid monitor lytes cardiology and pulm consults oxygen maintain saturat>90 iv nitro drip--off hydralazine tenormin Code(s): I50.9 - HEART FAILURE, UNSPECIFIED Qualifiers: Heart failure type: unspecified Qualified Code(s): I50.9 - Heart failure, unspecified (2) Afib Assessment/Plan: AC RAPID CALAN TO 120 ER QD Code(s): I48.91 - UNSPECIFIED ATRIAL FIBRILLATION Qualifiers: Atrial fibrillation type: unspecified Qualified Code(s): I48.91 - Unspecified atrial fibrillation (3) CKD (chronic kidney disease) Assessment/Plan: renal on board trend bun/cr continue iv lasix Code(s): N18.9 - CHRONIC KIDNEY DISEASE, UNSPECIFIED (4) COPD (chronic obstructive pulmonary disease) Assessment/Plan: oxygen and bronchodilators and symbicort prednsione 40mg Code(s): J44.9 - CHRONIC OBSTRUCTIVE PULMONARY DISEASE, UNSPECIFIED Qualifiers: COPD type: COPD with acute exacerbation Qualified Code(s): J44.1 - Chronic obstructive pulmonary disease with (acute) exacerbation
[2019-06-27] MEDS: VERAPAMIL HCL 120 MG E.R. TABLET PO SCH (13:18)
[2019-06-27] MEDS: LIDOCAINE PATCH REMOVAL MC SCH (21:38)
[2019-06-28] MEDS: oxyCODONE HCL 5 MG TABLET PO PRN ×3 (03:15→15:16)
[2019-06-28] MEDS: FUROSEMIDE 40 MG/4 ML INJECTABLE VIAL IVPUSH SCH ×2 (06:24→15:07)
[2019-06-28] MEDS: hydrALAZINE HCL 25 MG TABLET (FP) PO SCH (06:24)
[2019-06-28] MEDS: INSULIN SLIDING SCALE (NOVOLOG) 1 VIAL SQ SCH ×3 (06:24→16:44)
[2019-06-28] MEDS: GABAPENTIN 300 MG CAPSULE (FP) PO SCH ×2 (06:24→15:07)
[2019-06-28 07:13] LABS: BLOOD UREA NITROGEN 33.8 mg/dL (7-18); CALCIUM 8.5 mg/dL (8.5-10.1); CREATININE 1.6 mg/dL (0.55-1.3); POTASSIUM 3.6 mmol/L (3.5-5.1)
[2019-06-28] MEDS: predniSONE 20 MG TABLET (UD) PO SCH (09:32)
[2019-06-28] MEDS: APIXABAN 2.5 MG TABLET PO SCH (09:32)
[2019-06-28] MEDS: VERAPAMIL HCL 120 MG E.R. TABLET PO SCH (09:32)
[2019-06-28] MEDS: ATENOLOL 50 MG TABLET (FP) PO SCH (09:32)
[2019-06-28] MEDS: BUDESONIDE/FORMETEROL FUMARATE 80/4.5 mcg INHALER IH SCH (09:33)
[2019-06-28] MEDS: LIDOCAINE 5% TOPICAL PATCH TP SCH (09:33)
[2019-06-28] MEDS ORDERED: POTASSIUM CHLORIDE TABS 20 MEQ TABLET.ER (FP) PO SCH (10:00)
--- NOTE | 2019-06-28 10:07 | PN ---
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, Physician History of Present Illness: Pt seen and examined at bedside. She is awake and alert. She is asking to go home. She denies shortness of breath. - Current Medication List Current Medications: Active Medications Albuterol Sulfate (Ventolin Hfa Inhaler -) 1 puff IH RQID PRN PRN Reason: ASTHMA Apixaban (Eliquis -) 2.5 mg PO BID [facility] Last Admin: 06/28/19 09:32 Dose: 2.5 mg Atenolol (Tenormin -) 50 mg PO BID [facility] Last Admin: 06/28/19 09:32 Dose: 50 mg Budesonide/Formoterol Fumarate (Symbicort 80/4.5mcg -) 2 puff IH BID [facility] Last Admin: 06/28/19 09:33 Dose: 2 puff Bupropion HCl (Wellbutrin Xl -) 150 mg PO DAILY [facility] Last Admin: 06/28/19 09:32 Dose: 150 mg Furosemide (Lasix Injection -) 40 mg IVPUSH BID@0600,1400 [facility] Last Admin: 06/28/19 06:24 Dose: 40 mg Gabapentin (Neurontin -) 300 mg PO TID [facility] Last Admin: 06/28/19 06:24 Dose: 300 mg Hydralazine HCl (Apresoline -) 25 mg PO TID [facility] Last Admin: 06/28/19 06:24 Dose: 25 mg Insulin Aspart (Novolog Vial Sliding Scale -) 1 vial SQ ACHS [facility]; Protocol Last Admin: 06/28/19 06:24 Dose: Not Given Lidocaine (Lidoderm Patch -) 1 patch TP DAILY [facility] Last Admin: 06/28/19 09:33 Dose: 1 patch Miscellaneous (Lidoderm Patch Removal) 1 each MC DAILY@2200 [facility] Last Admin: 06/27/19 21:38 Dose: Not Given Oxycodone HCl (Roxicodone -) 5 mg PO Q6H PRN PRN Reason: PAIN LEVEL 6-10 Last Admin: 06/28/19 09:31 Dose: 5 mg Potassium Chloride (K-Dur -) 20 meq PO DAILY [facility] Last Admin: 06/28/19 09:32 Dose: 20 meq Prednisone (Deltasone -) 40 mg PO DAILY [facility] Last Admin: 06/28/19 09:32 Dose: 40 mg Verapamil HCl (Calan Sr -) 120 mg PO DAILY [facility] Last Admin: 10/21/19 09:32 Dose: 120 mg - Objective Vital Signs: Vital Signs Temperature 98.0 F 06/28/19 09:00 Pulse Rate 84 06/28/19 09:00 Respiratory Rate 20 06/28/19 09:00 Blood Pressure 185/95 H 06/28/19 09:00 O2 Sat by Pulse Oximetry (%) 94 L 06/27/19 21:00 Constitutional: Yes: Calm Eyes: Yes: Conjunctiva Clear HENT: Yes: Atraumatic Neck: Yes: Supple Cardiovascular: Yes: S1, S2 Respiratory: Yes: CTA Bilaterally Gastrointestinal: Yes: Normal Bowel Sounds, Soft Musculoskeletal: Yes: WNL Edema: Yes Edema: LLE: 1+, RLE: 1+ Neurological: Yes: Oriented Psychiatric: Yes: Oriented Labs: CBC, BMP 06/27/19 05:50 06/28/19 05:45 INR, PTT INR 1.58 (0.83-1.09) H 06/23/19 12:45 Problem List - Problems (1) CHF exacerbation Code(s): I50.9 - HEART FAILURE, UNSPECIFIED Qualifiers: Heart failure type: unspecified Qualified Code(s): I50.9 - Heart failure, unspecified (2) CHF (congestive heart failure) Code(s): I50.9 - HEART FAILURE, UNSPECIFIED Qualifiers: Heart failure type: diastolic Heart failure chronicity: unspecified Qualified Code(s): I50.30 - Unspecified diastolic (congestive) heart failure (3) CKD (chronic kidney disease) Code(s): N18.9 - CHRONIC KIDNEY DISEASE, UNSPECIFIED Assessment/Plan Current Medications Generic Name Dose Route Start Last Admin Trade Name Freq PRN Reason Stop Dose Admin Albuterol Sulfate 1 puff 06/23/19 17:28 Ventolin Hfa Inhaler - RQID PRN ASTHMA Apixaban 2.5 mg 06/25/19 22:00 06/28/19 09:32 Eliquis - PO 2.5 mg BID [facility] Administration Atenolol 50 mg 06/23/19 22:00 06/28/19 09:32 Tenormin - PO 50 mg BID [facility] Administration Budesonide/Formoterol Fumarate 2 puff 06/23/19 22:00 06/28/19 09:33 Symbicort 80/4.5mcg - IH 2 puff BID [facility] Administration Bupropion HCl 150 mg 06/24/19 10:00 06/28/19 09:32 Wellbutrin Xl - PO 150 mg DAILY [facility] Administration Furosemide 40 mg 06/24/19 14:00 06/28/19 06:24 Lasix Injection - IVPUSH 40 mg BID@0600,1400 [facility] Administration Gabapentin 300 mg 06/23/19 22:00 06/28/19 06:24 Neurontin - PO 300 mg TID [facility] Administration Hydralazine HCl 25 mg 06/24/19 14:15 06/28/19 06:24 Apresoline - PO 25 mg TID [facility] Administration Insulin Aspart 1 vial 06/23/19 22:00 06/28/19 06:24 Novolog Vial Sliding Scale - SQ Not Given ACHS [facility] Protocol Lidocaine 1 patch 06/24/19 10:00 06/28/19 09:33 Lidoderm Patch - TP 1 patch DAILY [facility] Administration Miscellaneous 1 each 06/23/19 22:00 06/27/19 21:38 Lidoderm Patch Removal MC Not Given DAILY@2200 [facility] Oxycodone HCl 5 mg 06/26/19 18:35 06/28/19 09:31 Roxicodone - PO 5 mg Q6H PRN Administration PAIN LEVEL 6-10 Potassium Chloride 20 meq 06/28/19 10:00 06/28/19 09:32 K-Dur - PO 20 meq DAILY [facility] Administration Prednisone 40 mg 06/24/19 14:30 06/28/19 09:32 Deltasone - PO 40 mg DAILY [facility] Administration Verapamil HCl 120 mg 06/27/19 11:15 06/28/19 09:32 Calan Sr - PO 120 mg DAILY [facility] Administration Impression 1. CKD 2. CHF 3. a-fib 4. lower ext edema 5. COPD 6. active smoker 7. non compliance Plan - increase hydralazine dose - renal function stable - volume status is improving - can change lasix to PO in next 24 hours - ua neg for blood or protein - urine cultures no growth - discussed compliance with diet and meds
[2019-06-28] MEDS ORDERED: hydrALAZINE HCL 25 MG TABLET (FP) PO ONE (10:08)
[2019-06-28] MEDS ORDERED: hydrALAZINE HCL 25 MG TABLET (FP) PO SCH (14:00)
--- NOTE | 2019-06-28 14:30 | PN ---
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 (short form) - Note 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: PULMONARY Denies shortness of breath or chest pain. Wants to go home. Vital Signs Period Temp Pulse Resp BP Sys/Salgado Pulse Ox Last 24 Hr 98 F-98.4 F 67-103 18-20 151-185/79-98 94-94 Gen: NAD at rest Heart: RRR Lung: decreased breath sounds at the bases Abd: soft, nontender Ext: no edema CBC, BMP 06/27/19 05:50 06/28/19 05:45 Active Medications Albuterol Sulfate (Ventolin Hfa Inhaler -) 1 puff IH RQID PRN PRN Reason: ASTHMA Apixaban (Eliquis -) 2.5 mg PO BID [facility] Last Admin: 06/28/19 09:32 Dose: 2.5 mg Atenolol (Tenormin -) 50 mg PO BID [facility] Last Admin: 06/28/19 09:32 Dose: 50 mg Budesonide/Formoterol Fumarate (Symbicort 80/4.5mcg -) 2 puff IH BID [facility] Last Admin: 06/28/19 09:33 Dose: 2 puff Bupropion HCl (Wellbutrin Xl -) 150 mg PO DAILY [facility] Last Admin: 06/28/19 09:32 Dose: 150 mg Furosemide (Lasix Injection -) 40 mg IVPUSH BID@0600,1400 [facility] Last Admin: 06/28/19 06:24 Dose: 40 mg Gabapentin (Neurontin -) 300 mg PO TID [facility] Last Admin: 06/28/19 06:24 Dose: 300 mg Hydralazine HCl (Apresoline -) 50 mg PO TID [facility] Insulin Aspart (Novolog Vial Sliding Scale -) 1 vial SQ ACHS [facility]; Protocol Last Admin: 06/28/19 11:44 Dose: Not Given Lidocaine (Lidoderm Patch -) 1 patch TP DAILY [facility] Last Admin: 06/28/19 09:33 Dose: 1 patch Miscellaneous (Lidoderm Patch Removal) 1 each MC DAILY@2200 [facility] Last Admin: 06/27/19 21:38 Dose: Not Given Oxycodone HCl (Roxicodone -) 5 mg PO Q6H PRN PRN Reason: PAIN LEVEL 6-10 Last Admin: 06/28/19 09:31 Dose: 5 mg Potassium Chloride (K-Dur -) 20 meq PO DAILY [facility] Last Admin: 06/28/19 09:32 Dose: 20 meq Prednisone (Deltasone -) 40 mg PO DAILY [facility] Last Admin: 06/28/19 09:32 Dose: 40 mg Verapamil HCl (Calan Sr -) 120 mg PO DAILY [facility] Last Admin: 06/28/19 09:32 Dose: 120 mg A/P COPD CKD Atrial Fibrillation LV Diastolic Dysfunction Pulmonary HTN Smoker - can d/c prednisone - inhaled bronchodilators - continue lasix - monitor urine output, creatinine - rate control - continue anticoagulation
[2019-06-28 15:13] VITALS: BP 147/80; PULSE 85; TEMP 97.7
--- NOTE | 2019-06-28 15:22 | DS ---
Physical Examination Vital Signs: Vital Signs Temperature 97.7 F 06/28/19 15:11 Pulse Rate 85 06/28/19 15:11 Respiratory Rate 20 06/28/19 15:11 Blood Pressure 147/80 06/28/19 15:11 O2 Sat by Pulse Oximetry (%) 94 L 06/28/19 09:00 Constitutional: Yes: Calm Cardiovascular: Yes: Pulse Irregular, S1, S2 Respiratory: Yes: Diminished Gastrointestinal: Yes: Normal Bowel Sounds, Soft Edema: Yes (reduced) Labs: CBC, BMP 06/27/19 05:50 06/28/19 05:45 Discharge Summary Problems reviewed: Yes Reason For Visit: CHF Current Active Problems Acute exacerbation of COPD with asthma (Acute) Acute exacerbation of chronic obstructive pulmonary disease (COPD) (Acute) CHF exacerbation (Acute) Hospital Course: 59 yr old female htn, afib ,copd,ckd came in for shortness of breath and leg edema per patient she ran out of home lasix supply lst week and since then she started getting SOB and and noticed leg sweelig she says she was so short of breath that she could barely talk in ER she got solumedrol changed to oral prednsione for a few days then stopped iv lasix bid change to oral lasix hyudralazine dose increase as well Condition: Fair - Instructions Referrals: Rivera Doe [Primary Care Provider] - - Home Medications Comprehensive Discharge Medication List: Ambulatory Orders Albuterol Sulfate Inhaler - [Ventolin HFA Inhaler -] 1 inh IH QID PRN 05/21/18 Budesonide/Formeterol Fumarate [SYMBICORT 80/4.5mcg -] 2 puff IH BID #1 inhaler 12/28/18 Bupropion HCl [Wellbutrin Xl -] 150 mg PO DAILY tab.sr.24h 12/28/18 Gabapentin [Neurontin -] 300 mg PO TID capsule 01/15/19 Cholecalciferol (Vitamin D3) [Vitamin D -] 50,000 unit PO WEEKLY 01/22/19 Linagliptin [Tradjenta] 5 mg PO DAILY 01/22/19 Furosemide [Lasix -] 40 mg PO BID@0600,1400 #30 tablet MDD 2 01/29/19 Atenolol [Tenormin -] 50 mg PO BID 01/31/19 Acetaminophen [Tylenol .Regular Strength -] 650 mg PO Q6H PRN tablet 02/10/19 Apixaban [Eliquis -] 2.5 mg PO BID #60 tablet 04/30/19 Lidocaine 5% Patch [Lidoderm -] 1 patch TP DAILY #30 patch 04/30/19 Verapamil HCl [Calan -] 40 mg PO BID #60 tablet 04/30/19 oxyCODONE HCL [Roxicodone -] 5 mg PO Q6H PRN #12 tablet MDD 4 04/30/19
== END 2019-06-28 17:42 | disposition home or self-care (01) | DRG 194 ==
LOC: JER 11:53 → JERBED 16:58 → J4W 20:27
PROVIDERS: ADMIT Family Medicine; ATTEND Family Medicine
DX: I13.0 Hypertensive heart and chronic kidney disease with heart failure and stage 1 through stage 4 chronic kidney disease, or unspecified chronic kidney disease (principal); J44.1 Chronic obstructive pulmonary disease with (acute) exacerbation; I50.33 Acute on chronic diastolic (congestive) heart failure; E11.22 Type 2 diabetes mellitus with diabetic chronic kidney disease; Z99.81 Dependence on supplemental oxygen; J45.901 Unspecified asthma with (acute) exacerbation; I44.4 Left anterior fascicular block; F41.8 Other specified anxiety disorders; E78.5 Hyperlipidemia, unspecified; I48.20 Chronic atrial fibrillation, unspecified; N18.3 Chronic kidney disease, stage 3 (moderate); Z91.14 Patient's other noncompliance with medication regimen; Z88.0 Allergy status to penicillin; F17.210 Nicotine dependence, cigarettes, uncomplicated; K59.00 Constipation, unspecified; E87.6 Hypokalemia; I27.20 Pulmonary hypertension, unspecified
CPT/HCPCS: 36415; 71045-TC-FY; 80048; 80053; 80061; 81003; 82550; 82962; 83721; 83735; 83880; 84100; 84484; 85025; 85610; 87086; 93005; 93010; 97116-GP; 97161-GP; 99285-25; J1644; Q2036

== ENCOUNTER 2019-07-13 17:51 | Inpatient (IN) | payer OTHER ==
--- NOTE | 2019-07-13 18:38 | PDOC ---
History of Present Illness - General Chief Complaint: CVA/TIA Stated Complaint: WEAKNESS Time Seen by Provider: 07/13/19 18:33 - History of Present Illness Initial Comments: 07/13/19 19:55 59 year old woman with a history of afib (eliquis), CHF, HTN, asthma (prev intubated), PE in the past, pulm fibrosis, sleep apnea, renal insuff(CKD), OA, DM who presents with weakness in the arms bilaterally and loss of appetite and some slurred speech for two days as noted but . The patient also reports swelling in the legs and mild shortness of breath. She denies fever, cough, congestion, nausea, vomiting, diarrhea, constipation or any other symptoms. ROS GENERAL/CONSTITUTIONAL: No fever or chills. No weakness. CARDIOVASCULAR: No chest pain + slight shortness of breath RESPIRATORY: No cough, wheezing, or hemoptysis. GASTROINTESTINAL: No nausea, vomiting, diarrhea or constipation. GENITOURINARY: No dysuria, frequency, or change in urination. MUSCULOSKELETAL: No joint or muscle swelling or pain. No neck or back pain. PE GENERAL: Awake, alert, and fully oriented, in no acute distress HEAD: No signs of trauma, normocephalic, atraumatic EYES: pupils 2mm, reactive, EOMI, sclera anicteric, conjunctiva clear ENT: oropharynx clear without exudates. Moist mucosa NECK: Normal ROM, supple LUNGS: No distress, speaks full sentences, clear to auscultation bilaterally HEART: Regular rate and rhythm, normal S1 and S2, no murmurs, rubs or gallops, peripheral pulses normal and equal bilaterally. ABDOMEN: Soft, nontender,No guarding, no rebound. No masses EXTREMITIES : Normal inspection, Normal range of motion, + 2 + pitting edema in the calf. No clubbing or cyanosis. DDX including but not limited to: r/o cva r/o acs r/o el;ectroylte vs infectious chf exacerb ED Course: CT head unremarkable labs signif for elevated bnp patient with persistent weakness consider effects 2/2 for oxycodone use however patient with symptoms concerning for CVA will need admission for r/o stroke and chf exacerb Patient discussed with inpt team Patient admitted Kacey Ireland, PGY2 Emergency Medicine tPA Exclusion checklist 3-4.5h - Time Elapsed Date last known well: 07/11/19 Time last known well: 06:00 Elaspsed time: 11 Day(s) and 10 Hour(s) and 48 Minutes - Thrombolytic Therapy Candidate Is patient eligible for thrombolytic therapy: No - Exclusion Criteria 3-4.5 hr SBP greater than 185 or DBP greater than 110mmHg despite tx: No Recent IC/spinal surgery,head trauma or stroke<3mos.: No Hx IC hemorrhage, IC neoplasm, AV malformation or aneurysm: No Active internal bleeding: No Blding diathesis(low plt ct, inc PTT,INR>1.7 or use of NOAC): No Symptoms suggest subarachnoid hemorrhage: No CT demonstrates multilobar infarct(>1/3 cerebral hemiphere): No Arterial puncture at noncompressible site in previous 7 days: No Blood glucose concentration less than 50mg/dL (2.7mmol/L): No - Relative Exclusion Criteria 3-4.5 hr Life expectancy <1 yr or severe co-morbid illness: No : No Patient/family refused: No Rapid improvement: No Stroke severity too mild: No Recent acute [place] (w/in previous 3 months): No Seizure at onset with postictal residual neuro impairments: No Major surgery or serious trauma w/in previous 14 days: No Recent GI or hemorrhage (w/in previous 21 days): No - Add'l Relative Exclusion 3-4.5 hr Age > 80: No Hx of both diabetes AND prior ischemic stroke: No Taking an oral anticoagulant regardless of INR: No NIHSS >25: No - Ineligibility reason(s) Reasons No tPA given: Outside of window - delayed arrival NIH Stroke Scale - Last Known Well Date/Time & Onset Date Last Known Well: 07/11/19 Time Last Known Well: 06:00 - Initial Evaluation Level of consciousness: Alert Ask patient the month and their age: Answers both correctly Ask patient to open & close eyes; make fist and let go: Obeys both correctly Best gaze (horizontal eye movement): Normal Visual field testing: No visual field loss Facial paresis (Show teeth/raise eyebrows/close eyes tight): Normal symmetrical movement Motor Function: Left Arm: No effort against gravity Motor Function: Right Arm: Drift Motor Function: Left Leg: Drift Motor Function: Right Leg: Normal (extends leg 30 degrees for 5 seconds without drift) Limb Ataxia: No ataxia Sensory(Use pinprick test arms,legs,trunk,face/side to side): Normal Best language (Describe picture, name items, read sentences): No Aphasia Dysarthria (read several words): Normal articulation Extinction and Inattention: No abnormality - Total Score NIH Stroke Scale Score: 5 Past History - Past Medical History Allergies/Adverse Reactions: Allergies Allergy/AdvReac Type Severity Reaction Status Date / Time morphine Allergy Severe Verified 07/13/19 18:42 Penicillins Allergy Severe Hives Verified 07/13/19 18:42 tomato [Tomato] Allergy Unknown Verified 07/13/19 18:42 chocolate AdvReac Unknown Uncoded 07/13/19 18:42 Home Medications: Ambulatory Orders Albuterol Sulfate Inhaler - [Ventolin HFA Inhaler -] 1 inh IH QID PRN 05/21/18 Budesonide/Formeterol Fumarate [SYMBICORT 80/4.5mcg -] 2 puff IH BID #1 inhaler 12/28/18 Bupropion HCl [Wellbutrin Xl -] 150 mg PO DAILY tab.sr.24h 12/28/18 Cholecalciferol (Vitamin D3) [Vitamin D -] 50,000 unit PO WEEKLY 01/22/19 Linagliptin [Tradjenta] 5 mg PO DAILY 01/22/19 Acetaminophen [Tylenol .Regular Strength -] 650 mg PO Q6H PRN tablet 02/10/19 Apixaban [Eliquis -] 2.5 mg PO BID #60 tablet 04/30/19 Lidocaine 5% Patch [Lidoderm -] 1 patch TP DAILY #30 patch 04/30/19 Gabapentin [Neurontin -] 300 mg PO TID #60 capsule 06/28/19 Verapamil HCl ER [Calan Sr -] 120 mg PO DAILY #30 tablet.er 06/28/19 hydrALAZINE HCL [Apresoline -] 50 mg PO TID #90 tablet MDD 3 06/28/19 Diclofenac Sodium [Diclo Gel] 1 each TP ASDIR 07/13/19 Digoxin [Lanoxin -] 0.125 mg PO DAILY 07/13/19 Furosemide [Lasix] 40 mg PO DAILY 07/13/19 Oxycodone HCl/Acetaminophen [Endocet 10-325 mg Tablet] 1 each PO QID PRN Anemia: No Asthma: Yes Cancer: No Cardiac Disorders: Yes (A-fib) CVA: No COPD: Yes CHF: Yes Dementia: No Diabetes: Yes GI Disorders: No Disorders: Yes HTN: Yes Hypercholesterolemia: Yes Liver Disease: No Seizures: No Thyroid Disease: Yes (Hypothyroid) - Surgical History Abdominal Surgery: No Appendectomy: No Cardiac Surgery: No Cholecystectomy: No Lung Surgery: No Neurologic Surgery: No Orthopedic Surgery: Yes ((L) ARM SX) - Immunization History Td Vaccination: Yes TDAP Vaccination: Yes Immunization Up to Date: Yes - Psycho Social/Smoking Cessation Hx Smoking Status: Yes Smoking History: Former smoker Years of Tobacco Use: 30 Have you smoked in the past 12 months: No Number of Cigarettes Smoked Daily: 2 Cigars Per Day: 0 Information on smoking cessation initiated: No 'Breaking Loose' booklet given: 03/27/18 Hx Alcohol Use: No Drug/Substance Use Hx: No Substance Use Type: None Hx Substance Use Treatment: No *Physical Exam - Vital Signs Last Vital Signs Temp Pulse Resp BP Pulse Ox 97.4 F L 84 18 145/89 99 07/13/19 18:06 07/13/19 18:06 07/13/19 18:06 07/13/19 18:06 07/13/19 18:06 ED Treatment Course - LABORATORY CBC & Chemistry Diagram: 07/14/19 05:24 07/16/19 05:25 - RADIOLOGY Radiology Studies Ordered: Category Date Time Status HEAD CT WITHOUT CONTRAST [CT] Stat CT Scan 07/13/19 18:32 Ordered CHEST X-RAY PORTABLE* [RAD] Stat Radiology 07/13/19 18:32 Ordered Discharge - Discharge Information Problems reviewed: Yes Clinical Impression/Diagnosis: CHF (congestive heart failure) Qualifiers: Heart failure type: diastolic Heart failure chronicity: acute on chronic Qualified Code(s): I50.33 - Acute on chronic diastolic (congestive) heart failure Disposition: HOME - Follow up/Referral - Patient Discharge Instructions - Post Discharge Activity
[2019-07-13 19:37] LABS: BASO % 1.2 % (0-2.0); EOS % 4.5 % (0-4.5); HEMATOCRIT 34.9 % (32.4-45.2); HEMOGLOBIN 11.2 GM/dL (10.7-15.3); LYMPH % 27.8 % (8-40); MCH 29.8 pg (25.7-33.7); MCHC 32.1 g/dl (32.0-36.0); MEAN CELL VOLUME 92.8 fl (80-96); MONO % 13.6 % (3.8-10.2); NEUT % 52.9 % (42.8-82.8); RBC 3.76 M/mm3 (3.60-5.2); RDW 18.4 % (11.6-15.6); WHITE BLOOD COUNT 5.6 K/mm3 (4.0-10.0)
--- NOTE | 2019-07-13 19:47 | PDOC ---
Attending Attestation - Resident Resident Name: Kacey Ireland - ED Attending Attestation I have performed the following: I have examined & evaluated the patient, The case was reviewed & discussed with the resident, I agree w/resident's findings & plan - HPI HPI: 07/13/19 21:43 see resident hpi - Physicial Exam PE: 07/13/19 21:43 agree with resident exam - Medical Decision Making 07/13/19 21:44 59-year-old female with an episode of generalized weakness and altered mental status, now resolved Labs suggest CHF exacerbation Based on medication history symptoms may have been due to to opiate use Will admit for observation
[2019-07-13 19:52] LABS: EPI CELLS 13.6 /HPF (0-5/HPF); HYALINE CASTS 10 /lpf (0-8); URINE APPEARANCE CLOUDY; URINE BACTERIA 267.6 /hpf (NEGATIVE); URINE BILIRUBIN NEGATIVE (NEGATIVE); URINE COLOR YELLOW; URINE GLUCOSE (UA) NEGATIVE (NEGATIVE); URINE KETONE NEGATIVE (NEGATIVE); URINE LEUK ESTERASE 2+ (NEGATIVE); URINE NITRITE NEGATIVE (NEGATIVE); URINE PROTEIN NEGATIVE (NEGATIVE); URINE WBC 12 /hpf (0-5)
[2019-07-13 20:16] LABS: ALBUMIN 3.5 g/dl (3.4-5.0); BILIRUBIN,TOTAL 0.5 mg/dL (0.2-1); BLOOD UREA NITROGEN 43.4 mg/dL (7-18); CALCIUM 8.7 mg/dL (8.5-10.1); CREATININE 2.9 mg/dL (0.55-1.3); TOT PROT 7.2 g/dl (6.4-8.2)
[2019-07-13 20:32] LABS: INR 1.32 (0.83-1.09); PROTHROMBIN TIME (PATIENT) 15.6 SEC (9.7-13.0)
[2019-07-13 21:02] LABS: MEAN PLT VOLUME 10.4 fl (7.5-11.1); PLATELET COUNT 123 K/MM3 (134-434)
[2019-07-13 21:07] LABS: YEAST PRESENT (NEGATIVE)
[2019-07-13] MEDS ORDERED: FLUCONAZOLE 100 MG TABLET (UD) PO ONE (23:12)
[2019-07-13] MEDS ORDERED: FUROSEMIDE 40 MG/4 ML INJECTABLE VIAL IVPUSH ONE (23:12)
--- NOTE | 2019-07-13 23:36 | HP ---
Admitting History and Physical - Primary Care Physician PCP: Dr. Carlin - Admission Chief Complaint: weakness, and slurred speech ? TIA/CVA History of Present Illness: 59 year old woman with a history of afib (on eliquis), CHF, HTN, Asthma, PE in the past, pulm fibrosis, sleep apnea, renal insuff(CKD), OA, DM who arrived to ED for weakness in the arms bilaterally and loss of appetite and some slurred speech for two days as noted by . The patient also reports swelling in the legs and mild shortness of breath. Patient denies fever, cough, congestion , nausea, vomiting, diarrhea, constipation or any other symptoms. 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: Other (Sciatica) Cardiovascular: Yes: AFIB, CHF, HTN Pulmonary: Yes: Asthma, COPD, O2 Dependent, Pulmonary Embolus (in the past), Pulmonary Fibrosis (history) Renal/: Yes: Renal Inusuff (CKD) Heme/Onc: Yes: Anemia Musculoskeletal: Yes: Osteoarthritis Endocrine: Yes: Diabetes Mellitus - Past Surgical History Past Surgical History: Yes: - Smoking History Smoking history: Former smoker Have you smoked in the past 12 months: No Aproximately how many cigarettes per day: 2 - Alcohol/Substance Use Hx Alcohol Use: No History of Substance Use: reports: None - Social History Usual Living Arrangement: Yes: With Significant Other ADL: Independent History of Recent Travel: No Home Medications - Allergies Allergies/Adverse Reactions: Allergies Allergy/AdvReac Type Severity Reaction Status Date / Time morphine Allergy Severe Verified 07/13/19 18:42 Penicillins Allergy Severe Hives Verified 07/13/19 18:42 tomato [Tomato] Allergy Unknown Verified 07/13/19 18:42 chocolate AdvReac Unknown Uncoded 07/13/19 18:42 - Home Medications Home Medications: Ambulatory Orders Albuterol Sulfate Inhaler - [Ventolin HFA Inhaler -] 1 inh IH QID PRN 05/21/18 Budesonide/Formeterol Fumarate [SYMBICORT 80/4.5mcg -] 2 puff IH BID #1 inhaler 12/28/18 Bupropion HCl [Wellbutrin Xl -] 150 mg PO DAILY tab.sr.24h 12/28/18 Cholecalciferol (Vitamin D3) [Vitamin D -] 50,000 unit PO WEEKLY 01/22/19 Linagliptin [Tradjenta] 5 mg PO DAILY 01/22/19 Acetaminophen [Tylenol .Regular Strength -] 650 mg PO Q6H PRN tablet 02/10/19 Apixaban [Eliquis -] 2.5 mg PO BID #60 tablet 04/30/19 Lidocaine 5% Patch [Lidoderm -] 1 patch TP DAILY #30 patch 04/30/19 Gabapentin [Neurontin -] 300 mg PO TID #60 capsule 06/28/19 Verapamil HCl ER [Calan Sr -] 120 mg PO DAILY #30 tablet.er 06/28/19 hydrALAZINE HCL [Apresoline -] 50 mg PO TID #90 tablet MDD 3 06/28/19 Amlodipine Besylate [Norvasc -] 5 mg PO DAILY 07/13/19 Diclofenac Sodium [Diclo Gel] 1 each TP ASDIR 07/13/19 Digoxin [Lanoxin -] 0.125 mg PO DAILY 07/13/19 Furosemide [Lasix] 40 mg PO DAILY 07/13/19 Oxycodone HCl/Acetaminophen [Endocet 10-325 mg Tablet] 1 each PO QID PRN Family Medical History Family History: Denies Review of Systems - Review of Systems Constitutional: reports: Loss of Appetite Eyes: reports: No Symptoms HENT: reports: No Symptoms Neck: reports: No Symptoms Cardiovascular: reports: No Symptoms Respiratory: reports: SOB Gastrointestinal: reports: No Symptoms Genitourinary: reports: No Symptoms Musculoskeletal: reports: No Symptoms Integumentary: reports: No Symptoms Neurological: reports: Weakness Endocrine: reports: No Symptoms Hematology/Lymphatic: reports: No Symptoms Psychiatric: reports: No Symptoms Physical Examination Vital Signs: Vital Signs Temperature 97.4 F L 07/13/19 18:06 Pulse Rate 84 07/13/19 18:06 Respiratory Rate 18 07/13/19 18:06 Blood Pressure 145/89 07/13/19 18:06 O2 Sat by Pulse Oximetry (%) 99 07/13/19 18:06 Constitutional: Yes: Calm Eyes: Yes: Conjunctiva Clear, EOM Intact HENT: Yes: Atraumatic, Normocephalic Neck: Yes: Supple, Trachea Midline Cardiovascular: Yes: Regular Rate and Rhythm Respiratory: Yes: Regular, CTA Bilaterally Gastrointestinal: Yes: Normal Bowel Sounds, Soft Extremities: Yes: WNL Edema: Yes Edema: LLE: 1+, RLE: 2+ Peripheral Pulses WNL: Yes Labs: CBC, BMP 07/13/19 19:19 07/13/19 19:19 Imaging - Results Chest X-ray: Report Reviewed (? minimal left pleural fluid) Cat Scan: Report Reviewed (No acute CT evidence of intracranial pathology) Other: Report Reviewed (BNP: 24681.6 bun/Cr: 43.4/2.9 UA: + rito x2, yeast present) Problem List - Problems (1) Acute on chronic diastolic (congestive) heart failure Code(s): I50.33 - ACUTE ON CHRONIC DIASTOLIC (CONGESTIVE) HEART FAILURE (2) UTI (urinary tract infection) Code(s): N39.0 - URINARY TRACT INFECTION, SITE NOT SPECIFIED (3) Yeast cystitis Code(s): B37.41 - CANDIDAL CYSTITIS AND URETHRITIS (4) Acute kidney injury superimposed on CKD Code(s): N17.9 - ACUTE KIDNEY FAILURE, UNSPECIFIED; N18.9 - CHRONIC KIDNEY DISEASE, UNSPECIFIED (5) Afib Code(s): I48.91 - UNSPECIFIED ATRIAL FIBRILLATION Qualifiers: Atrial fibrillation type: unspecified Qualified Code(s): I48.91 - Unspecified atrial fibrillation (6) Anxiety and depression Code(s): F41.9 - ANXIETY DISORDER, UNSPECIFIED; F32.9 - MAJOR DEPRESSIVE DISORDER, SINGLE EPISODE, UNSPECIFIED (7) Hypertension Code(s): I10 - ESSENTIAL (PRIMARY) HYPERTENSION (8) Diabetes Code(s): E11.9 - TYPE 2 DIABETES MELLITUS WITHOUT COMPLICATIONS Qualifiers: Diabetes mellitus type: type 2 Assessment/Plan 59 year old woman with a history of afib (on eliquis), CHF, HTN, Asthma, PE in the past, pulm fibrosis, sleep apnea, renal insuff(CKD), OA, DM who arrived to ED for weakness in the arms bilaterally and loss of appetite and some slurred speech for two days as noted by . The patient also reports swelling in the legs and mild shortness of breath. # TIA/ CVA ruled out - CT head: no acute pathology - Change in appetite, weakness, slurred speech improved - ? due to UTI or opiate use - if noted with slurred speech again, and weakness consider neurology follow up # Acute on chronic Congestive heart failure -BNP: 87552.6 - in ED given lasix 40 IV push x1 - follow up cardiology in AM - Furosemide 40 mg IV DAILY - monitor i&O - fluid restriction - oxygen maintain saturat>90 #?UTI #yeast infection - UA: 2+leuko, and yeast present - in ED given cipro , diflucan x1 - follow up urine culture - will continue with cipro IV - follow up ID in AM #Acute JOSEPH on superimposed CKD - fluids restriction - monitor renal function - avoid nephro toxins - if needed consider nephrology follow up #HTN/A-fib -Apixaban2.5 mg PO BID -Digoxin 0.125 mg PO DAILY -hydrALAZINE HCL 50 mg PO TID -Amlodipine Besylate 5 mg PO DAILY -Verapamil HCl ER 120 mg PO DAILY #DM # Diabetes neuropathy - monitor FS BID AC - coverage with novolog sliding scale - Gabapentin 300 mg PO TID - follow up hga1c #Anxiety/Depression -Bupropion HCl 150 mg PO DAILY #Asthma -Albuterol Sulfate Inhaler 1 inh IH QID PRN -Budesonide/Formeterol Fumarate 2 puff IH BID #OA - hold opiates for now - continue with lidoderm patch - Tylenol q6 po PRN Visit type - Emergency Visit Emergency Visit: Yes Care time: The patient presented to the Emergency Department on the above date and was hospitalized for further evaluation of their emergent condition. - New Patient This patient is new to me today: Yes Date on this admission: 07/14/19 - Critical Care Critical Care patient: No
[2019-07-14] MEDS ORDERED: ACETAMINOPHEN 325 MG TABLET (FP) PO PRN (00:21)
[2019-07-14] MEDS ORDERED: ALBUTEROL SO4 8 GM HFA INHALER IH PRN (00:21)
[2019-07-14] MEDS ORDERED: FLUCONAZOLE 100 MG TABLET (UD) ONE (01:56)
[2019-07-14] MEDS ORDERED: FUROSEMIDE 40 MG/4 ML INJECTABLE VIAL ONE (01:57)
[2019-07-14] MEDS ORDERED: traMADol HCL 50 MG TABLET PO ONE (04:06)
[2019-07-14] MEDS ORDERED: traMADol HCL 50 MG TABLET ONE (04:38)
[2019-07-14 05:54] LABS: HEMATOCRIT 34.2 % (32.4-45.2); MCH 29.9 pg (25.7-33.7); MCHC 32.2 g/dl (32.0-36.0); MEAN CELL VOLUME 92.7 fl (80-96); MEAN PLT VOLUME 10.3 fl (7.5-11.1); PLATELET COUNT 117 K/MM3 (134-434); RBC 3.69 M/mm3 (3.60-5.2); WHITE BLOOD COUNT 4.2 K/mm3 (4.0-10.0)
[2019-07-14] MEDS ORDERED: GABAPENTIN 100 MG CAPSULE (FP) ONE (05:59)
[2019-07-14] MEDS ORDERED: hydrALAZINE HCL 25 MG TABLET (FP) ONE (05:59)
[2019-07-14 06:16] LABS: BLOOD UREA NITROGEN 39.4 mg/dL (7-18); CALCIUM 8.5 mg/dL (8.5-10.1); CREATININE 2.7 mg/dL (0.55-1.3); POTASSIUM 3.9 mmol/L (3.5-5.1)
[2019-07-14] MEDS: hydrALAZINE HCL 25 MG TABLET (FP) PO SCH ×3 (06:23→21:11)
[2019-07-14] MEDS: GABAPENTIN 300 MG CAPSULE (FP) PO SCH ×3 (06:23→21:11)
[2019-07-14] MEDS: INSULIN SLIDING SCALE (NOVOLOG) 1 VIAL SQ SCH ×2 (08:43→16:55)
--- NOTE | 2019-07-14 08:44 | PN ---
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, Physician - Current Medication List Current Medications: Active Medications Acetaminophen (Tylenol -) 650 mg PO Q6H PRN PRN Reason: PAIN LEVEL 6-10 Albuterol Sulfate (Ventolin Hfa Inhaler -) 1 puff IH Q6H PRN PRN Reason: ASTHMA Amlodipine Besylate (Norvasc -) 5 mg PO DAILY [facility] Apixaban (Eliquis -) 2.5 mg PO BID [facility] Budesonide/Formoterol Fumarate (Symbicort 80/4.5mcg -) 2 puff IH BID [facility] Bupropion HCl (Wellbutrin Xl -) 150 mg PO DAILY [facility] Digoxin (Lanoxin -) 0.125 mg PO DAILY [facility] Furosemide (Lasix Injection -) 40 mg IVPUSH DAILY [facility] Gabapentin (Neurontin -) 300 mg PO TID [facility] Last Admin: 07/14/19 06:23 Dose: 300 mg Hydralazine HCl (Apresoline -) 50 mg PO TID [facility] Last Admin: 07/14/19 06:23 Dose: 50 mg Levofloxacin (Levaquin 500 Mg Premixed Ivpb -) 500 mg in 100 mls @ 100 mls/hr IVPB ONCE ONE Stop: 07/14/19 10:59 Levofloxacin (Levaquin 250 Mg Premixed Ivpb -) 250 mg in 50 mls @ 50 mls/hr IVPB DAILY [facility] Insulin Aspart ([facility] Vial Sliding Scale -) [facility] Last Admin: 07/14/19 08:43 Dose: Not Given Lidocaine (Lidoderm Patch -) 1 patch TP DAILY [facility] Miscellaneous (Lidoderm Patch Removal) 1 each MC DAILY@2200 [facility] Verapamil HCl (Calan Sr -) 120 mg PO DAILY [facility] - Objective Vital Signs: Vital Signs Temperature 97.8 F 07/14/19 07:00 Pulse Rate 106 H 07/14/19 07:00 Respiratory Rate 20 07/14/19 07:00 Blood Pressure 133/73 07/14/19 07:00 O2 Sat by Pulse Oximetry (%) 99 07/14/19 06:15 Cardiovascular: Yes: S1, S2 Respiratory: Yes: Regular, CTA Bilaterally Gastrointestinal: Yes: Normal Bowel Sounds, Soft Edema: Yes Edema: LLE: 1+, RLE: 1+ Neurological: Yes: Alert, Oriented, Unsteady Gait, Weakness Labs: CBC, BMP 07/14/19 05:24 11/06/19 05:24 INR, PTT INR 1.32 (0.83-1.09) H 07/13/19 19:19 Problem List - Problems (1) Generalized weakness Assessment/Plan: - Doubt TIA - CVA ruled out - CT head: no acute pathology - Maybe due to pain meds - Neuro consult Code(s): R53.1 - WEAKNESS (2) Acute kidney injury superimposed on CKD Assessment/Plan: - fluids restriction - monitor renal function - avoid nephro toxins - nephrology follow up Code(s): N17.9 - ACUTE KIDNEY FAILURE, UNSPECIFIED; N18.9 - CHRONIC KIDNEY DISEASE, UNSPECIFIED (3) CHF (congestive heart failure) Assessment/Plan: - BNP: 55895.6 - Furosemide 40 mg IV DAILY - monitor i&O - fluid restriction - Cardio - oxygen maintain saturat>90 Code(s): I50.9 - HEART FAILURE, UNSPECIFIED (4) UTI (urinary tract infection) Assessment/Plan: - UA: 2+leuko, and yeast present - follow up urine culture - will continue with cipro IV - follow up ID Code(s): N39.0 - URINARY TRACT INFECTION, SITE NOT SPECIFIED (5) Afib Assessment/Plan: -Apixaban2.5 mg PO BID -Digoxin 0.125 mg PO DAILY -Verapamil HCl ER 120 mg PO DAILY Code(s): I48.91 - UNSPECIFIED ATRIAL FIBRILLATION Qualifiers: Atrial fibrillation type: unspecified Qualified Code(s): I48.91 - Unspecified atrial fibrillation (6) Anxiety and depression Assessment/Plan: -Bupropion HCl 150 mg PO DAILY Code(s): F41.9 - ANXIETY DISORDER, UNSPECIFIED; F32.9 - MAJOR DEPRESSIVE DISORDER, SINGLE EPISODE, UNSPECIFIED (7) Chronic back pain Assessment/Plan: - hold opiates for now - continue with lidoderm patch - Tylenol q6 po PRN Code(s): M54.9 - DORSALGIA, UNSPECIFIED; G89.29 - OTHER CHRONIC PAIN Qualifiers: Back pain location: low back pain Back pain laterality: bilateral Sciatica presence: with sciatica Sciatica laterality: bilateral sciatica Qualified Code(s): M54.42 - Lumbago with sciatica, left side; M54.41 - Lumbago with sciatica, right side; G89.29 - Other chronic pain (8) COPD (chronic obstructive pulmonary disease) Assessment/Plan: -Albuterol Sulfate Inhaler 1 inh IH QID PRN -Budesonide/Formeterol Fumarate 2 puff IH BID Code(s): J44.9 - CHRONIC OBSTRUCTIVE PULMONARY DISEASE, UNSPECIFIED Qualifiers: COPD type: COPD with acute exacerbation Qualified Code(s): J44.1 - Chronic obstructive pulmonary disease with (acute) exacerbation (9) Diabetes Assessment/Plan: - monitor FS BID AC - coverage with novolog sliding scale - Gabapentin 300 mg PO TID - follow up hga1c Code(s): E11.9 - TYPE 2 DIABETES MELLITUS WITHOUT COMPLICATIONS Qualifiers: Diabetes mellitus type: type 2
[2019-07-14 09:03] VITALS: BMI 23.6
[2019-07-14] MEDS ORDERED: CIPROFLOXACIN 200 MG/D5W 100 ML IVPB SCH ×2 (10:00)
--- NOTE | 2019-07-14 10:29 | EKG ---
Test Reason : Blood Pressure : / mmHG Vent. Rate : 082 BPM Atrial Rate : 097 BPM P-R Int : 000 ms QRS Dur : 112 ms QT Int : 412 ms P-R-T Axes : 000 -58 126 degrees QTc Int : 481 ms ATRIAL FIBRILLATION LEFT ANTERIOR FASCICULAR BLOCK MODERATE VOLTAGE CRITERIA FOR LVH, MAY BE NORMAL VARIANT ABNORMAL ECG WHEN COMPARED WITH ECG OF 23-JUN-2019 12:10, NO SIGNIFICANT CHANGE WAS FOUND Confirmed by CLIFF MCDANIEL, BELLA ([id number]) on 07/14/2019 10:29:20 AM Referred By: Confirmed By:BELLA CORONADO MD
--- NOTE | 2019-07-14 11:47 | CON.NEURO ---
Consult - History of Present Illness History of Present Illness: 59 year old woman with a history of afib (on eliquis), CHF, HTN, Asthma, PE in the past, pulm fibrosis, sleep apnea, renal insuff(CKD), OA, DM who arrived to ED for weakness in the arms bilaterally and loss of appetite and some slurred speech for two days as noted by . The patient also reports swelling in the legs and mild shortness of breath. Patient denies fever, cough, congestion , nausea, vomiting, diarrhea, constipation or any other symptoms. Today pt denies any complaints and states she she is doing better. No FOX or focal /motor sensory complaints. 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: Other (Sciatica) Cardio/Vascular: Yes: AFIB, CHF, HTN Pulmonary: Yes: Asthma, COPD, O2 Dependent, Pulmonary Embolus (in the past), Pulmonary Fibrosis (history) Renal/: Yes: Renal Inusuff (CKD) ...: No Musculoskeletal: Yes: Osteoarthritis Endocrine: Yes: Diabetes Mellitus - Past Surgical History Past Surgical History: Yes: - Alcohol/Substance Use Hx Alcohol Use: No History of Substance Use: reports: None - Smoking History Smoking history: Former smoker Have you smoked in the past 12 months: No Aproximately how many cigarettes per day: 2 - Social History Usual Living Arrangement: Alone ADL: Independent History of Recent Travel: No Home Medications - Allergies Allergies/Adverse Reactions: Allergies Allergy/AdvReac Type Severity Reaction Status Date / Time morphine Allergy Severe Verified 07/13/19 18:42 Penicillins Allergy Severe Hives Verified 07/13/19 18:42 tomato [Tomato] Allergy Unknown Verified 07/13/19 18:42 chocolate AdvReac Unknown Uncoded 07/13/19 18:42 - Home Medications Home Medications: Ambulatory Orders Albuterol Sulfate Inhaler - [Ventolin HFA Inhaler -] 1 inh IH QID PRN 05/21/18 Budesonide/Formeterol Fumarate [SYMBICORT 80/4.5mcg -] 2 puff IH BID #1 inhaler 12/28/18 Bupropion HCl [Wellbutrin Xl -] 150 mg PO DAILY tab.sr.24h 12/28/18 Cholecalciferol (Vitamin D3) [Vitamin D -] 50,000 unit PO WEEKLY 01/22/19 Linagliptin [Tradjenta] 5 mg PO DAILY 01/22/19 Acetaminophen [Tylenol .Regular Strength -] 650 mg PO Q6H PRN tablet 02/10/19 Apixaban [Eliquis -] 2.5 mg PO BID #60 tablet 04/30/19 Lidocaine 5% Patch [Lidoderm -] 1 patch TP DAILY #30 patch 04/30/19 Gabapentin [Neurontin -] 300 mg PO TID #60 capsule 06/28/19 Verapamil HCl ER [Calan Sr -] 120 mg PO DAILY #30 tablet.er 06/28/19 hydrALAZINE HCL [Apresoline -] 50 mg PO TID #90 tablet MDD 3 06/28/19 Amlodipine Besylate [Norvasc -] 5 mg PO DAILY 07/13/19 Diclofenac Sodium [Diclo Gel] 1 each TP ASDIR 07/13/19 Digoxin [Lanoxin -] 0.125 mg PO DAILY 07/13/19 Furosemide [Lasix] 40 mg PO DAILY 07/13/19 Oxycodone HCl/Acetaminophen [Endocet 10-325 mg Tablet] 1 each PO QID PRN Physical Exam-Neuro Vital Signs: Vital Signs Temperature 98.2 F 07/14/19 08:54 Pulse Rate 89 07/14/19 08:54 Respiratory Rate 18 07/14/19 09:09 Blood Pressure 152/80 07/14/19 08:54 O2 Sat by Pulse Oximetry (%) 99 07/14/19 09:09 Constitutional: Yes: Well Nourished Labs: CBC, BMP 07/14/19 05:24 07/14/19 05:24 INR, PTT INR 1.32 (0.83-1.09) H 07/13/19 19:19 - Neuro Exam Level Of Consciousness: Yes: Alert (awake, alert, EOMI, slight facial assymetry , + adentialism , no focal weakness, no drift ) Problem List - Problems (1) Transient ischemic attack (TIA) Code(s): G45.9 - TRANSIENT CEREBRAL ISCHEMIC ATTACK, UNSPECIFIED (2) Dysarthria Code(s): R47.1 - DYSARTHRIA AND ANARTHRIA (3) Atrial fibrillation Code(s): I48.91 - UNSPECIFIED ATRIAL FIBRILLATION Assessment/Plan 59 year old woman with a history of afib (on eliquis), CHF, HTN, Asthma, PE in the past, pulm fibrosis, sleep apnea, renal insuff(CKD), OA, DM who arrived to ED for weakness in the arms bilaterally and loss of appetite and some slurred speech for two days as noted by . The patient also reports swelling in the legs and mild shortness of breath. Patient denies fever, cough, congestion , nausea, vomiting, diarrhea, constipation or any other symptoms. Today pt denies any complaints and states she she is doing better. No FOX or focal /motor sensory complaints. AP : HX of AFIB /PE on AC, admitted for dysarthria /SOB -- appears to be doing better and close to baseline ? if this was TIA , + vascular RF despite being on AC check MRI BRAIN will FU DR LUKE
[2019-07-14] MEDS: VERAPAMIL HCL 120 MG E.R. TABLET PO SCH (11:53)
[2019-07-14] MEDS: BUDESONIDE/FORMETEROL FUMARATE 80/4.5 mcg INHALER IH SCH ×2 (11:53→21:13)
[2019-07-14] MEDS: APIXABAN 2.5 MG TABLET PO SCH ×2 (11:54→21:11)
[2019-07-14] MEDS: FUROSEMIDE 40 MG/4 ML INJECTABLE VIAL IVPUSH SCH (11:54)
[2019-07-14] MEDS: LIDOCAINE 5% TOPICAL PATCH TP SCH (11:56)
[2019-07-14] MEDS: DIGOXIN 0.125 MG TABLET (FP) PO SCH (11:58)
[2019-07-14] MEDS: amLODIPine BESYLATE 5 MG TABLET (FP) PO SCH (12:12)
--- NOTE | 2019-07-14 13:25 | PN ---
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 (short form) - Note 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: ID consult dictated imp/reccd 59 o female admitted from home with trembling and dropping things-apparently had slurred speech and weakness that has resolved she says this has been going on for a long time- ambulates with a cane at home no fevers or chills no cough no dysuria, no back pain penicillin allergy rash/hives- no SOB or anaphylaxis active cigarette smoker no signs of symptomatic UTI PE consistent with CHF labs c/w stephanie/ckd would agree with neurology evaluation-?TIA no need for antibioitcs at this time- UA appears contaminated with epithelial cells and she is asymptomatic no need to repeat Problem List - Problems (1) Asymptomatic bacteriuria Code(s): R82.71 - BACTERIURIA (2) Acute kidney injury superimposed on CKD Code(s): N17.9 - ACUTE KIDNEY FAILURE, UNSPECIFIED; N18.9 - CHRONIC KIDNEY DISEASE, UNSPECIFIED (3) CHF (congestive heart failure) Code(s): I50.9 - HEART FAILURE, UNSPECIFIED (4) Cigarette nicotine dependence Code(s): F17.200 - NICOTINE DEPENDENCE, UNSPECIFIED, UNCOMPLICATED
--- NOTE | 2019-07-14 13:56 | CONSULT ---
Consult Consult Specialty:: PM&R Dr Ambriz for Dr Cronin - History of Present Illness Chief Complaint: B knee pain History of Present Illness: This is a 59 year old woman with a medical history of CHF, A fib, HTN, asthma, pulm fibrosis, PE, sleep apnea, CKD, DM, OA, who presented to the ED 07/13/19 with BUE weakness, slurred speech and decreased appetite x2 days. Neurology was consulted, and CVA was ruled out. She was started on Cipro and Duflucan in the ED for bacteruria/ UTI vs yeast infection. Fluids were adjusted for JOSEPH on CKD. Physiatry is being consulted for further recommendations. 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: Other (Sciatica) Cardio/Vascular: Yes: AFIB, CHF, HTN Pulmonary: Yes: Asthma, COPD, O2 Dependent, Pulmonary Embolus (in the past), Pulmonary Fibrosis (history) Renal/: Yes: Renal Inusuff (CKD) ...: No Musculoskeletal: Yes: Osteoarthritis Endocrine: Yes: Diabetes Mellitus - Past Surgical History Past Surgical History: Yes: - Alcohol/Substance Use Hx Alcohol Use: No History of Substance Use: reports: None - Smoking History Smoking history: Former smoker Have you smoked in the past 12 months: No Aproximately how many cigarettes per day: 2 - Social History Usual Living Arrangement: Alone (lives with in apartment without stairs) ADL: Independent (with Rollator) History of Recent Travel: No Home Medications - Allergies Allergies/Adverse Reactions: Allergies Allergy/AdvReac Type Severity Reaction Status Date / Time morphine Allergy Severe Verified 07/13/19 18:42 Penicillins Allergy Severe Hives Verified 07/13/19 18:42 tomato [Tomato] Allergy Unknown Verified 07/13/19 18:42 chocolate AdvReac Unknown Uncoded 07/13/19 18:42 - Home Medications Home Medications: Ambulatory Orders Albuterol Sulfate Inhaler - [Ventolin HFA Inhaler -] 1 inh IH QID PRN 05/21/18 Budesonide/Formeterol Fumarate [SYMBICORT 80/4.5mcg -] 2 puff IH BID #1 inhaler 12/28/18 Bupropion HCl [Wellbutrin Xl -] 150 mg PO DAILY tab.sr.24h 12/28/18 Cholecalciferol (Vitamin D3) [Vitamin D -] 50,000 unit PO WEEKLY 01/22/19 Linagliptin [Tradjenta] 5 mg PO DAILY 01/22/19 Acetaminophen [Tylenol .Regular Strength -] 650 mg PO Q6H PRN tablet 02/10/19 Apixaban [Eliquis -] 2.5 mg PO BID #60 tablet 04/30/19 Lidocaine 5% Patch [Lidoderm -] 1 patch TP DAILY #30 patch 04/30/19 Gabapentin [Neurontin -] 300 mg PO TID #60 capsule 06/28/19 Verapamil HCl ER [Calan Sr -] 120 mg PO DAILY #30 tablet.er 06/28/19 hydrALAZINE HCL [Apresoline -] 50 mg PO TID #90 tablet MDD 3 06/28/19 Amlodipine Besylate [Norvasc -] 5 mg PO DAILY 07/13/19 Diclofenac Sodium [Diclo Gel] 1 each TP ASDIR 07/13/19 Digoxin [Lanoxin -] 0.125 mg PO DAILY 07/13/19 Furosemide [Lasix] 40 mg PO DAILY 07/13/19 Oxycodone HCl/Acetaminophen [Endocet 10-325 mg Tablet] 1 each PO QID PRN Review of Systems Findings/Remarks: Denies fevers, chills, changes in vision/ hearing/ mood, CP, SOB, abdominal pain , nausea, vomiting, constipation, diarrhea, dysuria, numbness/ paresthesias. Notes B knee pain. Agitated Physical Exam Vital Signs: Vital Signs Temperature 98.2 F 07/14/19 08:54 Pulse Rate 94 H 07/14/19 11:58 Respiratory Rate 18 07/14/19 09:09 Blood Pressure 156/87 07/14/19 11:00 O2 Sat by Pulse Oximetry (%) 99 07/14/19 09:09 Musculoskeletal: Yes: Other (General: irritated AAF lying in bed NAD N/M: B shoulder flexion to 90 degrees, 4+/5 BUE, declines BLE ROM/ MMT although +B knee crepitus, Pinprick Intact BUE/ BLE Extremities: 1+ BLE pitting edema, no B calf tenderness) Labs: CBC, BMP 07/14/19 05:24 07/14/19 05:24 Assessment/Plan Impression: 1) Deficits mobility/ ADLs 2) Deconditioning 3) Gait abnormality 4) BUE weakness and slurred speech, resolved- TIA/ CVA ruled out 5) Bacteruria/ UTI 6) JOSEPH on CKD 7) CHF exacerbation with hx A fib, HTN 8) hx asthma, pulm fibrosis, PE, sleep apnea 9) DM with neuropathy 10) B knee OA 11) Anxiety/ depression 12) BMI WNL 13) Active smoker 14) Up to date flu shot/ pneumovax Recommendations: 1) PT for stretching strengthening ROM and functional mobility 2) Falls, safety precautions 3) Cardiopulmonary precautions 4) Diabetic precautions 5) Heat/ perez wrap B knees prn 6) DVT ppx: on Eliquis 7) Denies constipation on current bowel regimen 8) Smoking cessation information at discharge 9) Continue plan per primary team 10) Discharge planning: to be determined after medical work-up, may be able to return home with services versus inpatient rehabilitation; pt was not amenable to functional mobility during this exam Thank you for this referral.
--- NOTE | 2019-07-14 14:04 | CONSULT ---
Consult Consult Specialty:: Nephrology Reason for Consultation:: JOSEPH - History of Present Illness Chief Complaint: shortness of breath History of Present Illness: Pt is a 59 year old female with pmhx of ckd, chf, htn, afib, and pul fibrosis who presents with weakness and slurred speech. She was found to be in joseph and i was called to evaluate her. She does have hx of ckd. She has poor outpt follow up. She complains of lower ext edema. She denies chest pain. She denies hematuria or dysuria. 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: Other (Sciatica) Cardio/Vascular: Yes: AFIB, CHF, HTN Pulmonary: Yes: Asthma, COPD, O2 Dependent, Pulmonary Embolus (in the past), Pulmonary Fibrosis (history) Renal/: Yes: Renal Inusuff (CKD) ...: No Musculoskeletal: Yes: Osteoarthritis Endocrine: Yes: Diabetes Mellitus - Past Surgical History Past Surgical History: Yes: - Alcohol/Substance Use Hx Alcohol Use: No History of Substance Use: reports: None - Smoking History Smoking history: Former smoker Have you smoked in the past 12 months: No Aproximately how many cigarettes per day: 2 - Social History Usual Living Arrangement: Alone (lives with in apartment without stairs) ADL: Independent (with Rollator) History of Recent Travel: No Home Medications - Allergies Allergies/Adverse Reactions: Allergies Allergy/AdvReac Type Severity Reaction Status Date / Time morphine Allergy Severe Verified 07/13/19 18:42 Penicillins Allergy Severe Hives Verified 07/13/19 18:42 tomato [Tomato] Allergy Unknown Verified 07/13/19 18:42 chocolate AdvReac Unknown Uncoded 07/13/19 18:42 - Home Medications Home Medications: Ambulatory Orders Albuterol Sulfate Inhaler - [Ventolin HFA Inhaler -] 1 inh IH QID PRN 05/21/18 Budesonide/Formeterol Fumarate [SYMBICORT 80/4.5mcg -] 2 puff IH BID #1 inhaler 12/28/18 Bupropion HCl [Wellbutrin Xl -] 150 mg PO DAILY tab.sr.24h 12/28/18 Cholecalciferol (Vitamin D3) [Vitamin D -] 50,000 unit PO WEEKLY 01/22/19 Linagliptin [Tradjenta] 5 mg PO DAILY 01/22/19 Acetaminophen [Tylenol .Regular Strength -] 650 mg PO Q6H PRN tablet 02/10/19 Apixaban [Eliquis -] 2.5 mg PO BID #60 tablet 04/30/19 Lidocaine 5% Patch [Lidoderm -] 1 patch TP DAILY #30 patch 04/30/19 Gabapentin [Neurontin -] 300 mg PO TID #60 capsule 06/28/19 Verapamil HCl ER [Calan Sr -] 120 mg PO DAILY #30 tablet.er 06/28/19 hydrALAZINE HCL [Apresoline -] 50 mg PO TID #90 tablet MDD 3 06/28/19 Amlodipine Besylate [Norvasc -] 5 mg PO DAILY 07/13/19 Diclofenac Sodium [Diclo Gel] 1 each TP ASDIR 07/13/19 Digoxin [Lanoxin -] 0.125 mg PO DAILY 07/13/19 Furosemide [Lasix] 40 mg PO DAILY 07/13/19 Oxycodone HCl/Acetaminophen [Endocet 10-325 mg Tablet] 1 each PO QID PRN Review of Systems - Review of Systems Constitutional: reports: Malaise Eyes: reports: No Symptoms HENT: reports: No Symptoms Neck: reports: No Symptoms Cardiovascular: reports: Edema Respiratory: reports: SOB on Exertion Gastrointestinal: reports: No Symptoms Genitourinary: reports: No Symptoms Musculoskeletal: reports: Muscle Weakness Neurological: reports: Change in Speech Endocrine: reports: No Symptoms Physical Exam Vital Signs: Vital Signs Temperature 98.2 F 07/14/19 08:54 Pulse Rate 94 H 07/14/19 11:58 Respiratory Rate 18 07/14/19 09:09 Blood Pressure 156/87 07/14/19 11:00 O2 Sat by Pulse Oximetry (%) 99 07/14/19 09:09 Constitutional: Yes: Calm Eyes: Yes: Conjunctiva Clear HENT: Yes: Atraumatic Neck: Yes: Supple Cardiovascular: Yes: S1, S2 Respiratory: Yes: CTA Bilaterally Gastrointestinal: Yes: Soft Musculoskeletal: Yes: WNL Edema: Yes Edema: LLE: 1+, RLE: 1+ Neurological: Yes: Oriented Psychiatric: Yes: Oriented Labs: CBC, BMP 07/14/19 05:24 07/14/19 05:24 Imaging - Results Chest X-ray: Report Reviewed Cat Scan: Report Reviewed Problem List - Problems (1) Acute kidney injury superimposed on CKD Code(s): N17.9 - ACUTE KIDNEY FAILURE, UNSPECIFIED; N18.9 - CHRONIC KIDNEY DISEASE, UNSPECIFIED (2) Atrial fibrillation Code(s): I48.91 - UNSPECIFIED ATRIAL FIBRILLATION (3) CHF (congestive heart failure) Code(s): I50.9 - HEART FAILURE, UNSPECIFIED Assessment/Plan Current Medications Generic Name Dose Route Start Last Admin Trade Name Freq PRN Reason Stop Dose Admin Acetaminophen 650 mg 07/14/19 00:21 Tylenol - PO Q6H PRN PAIN LEVEL 6-10 Albuterol Sulfate 1 puff 07/14/19 00:21 Ventolin Hfa Inhaler - IH Q6H PRN ASTHMA Amlodipine Besylate 5 mg 07/14/19 10:00 07/14/19 12:12 Norvasc - PO 5 mg DAILY JOLENE Administration Apixaban 2.5 mg 07/14/19 10:00 07/14/19 11:54 Eliquis - PO 2.5 mg BID JOLENE Administration Budesonide/Formoterol Fumarate 2 puff 07/14/19 10:00 07/14/19 11:53 Symbicort 80/4.5mcg - IH 2 puff BID JOLENE Administration Bupropion HCl 150 mg 07/14/19 10:00 07/14/19 11:56 Wellbutrin Xl - PO 150 mg DAILY JOLENE Administration Digoxin 0.125 mg 07/14/19 10:00 07/14/19 11:58 Lanoxin - PO 0.125 mg DAILY JOLENE Administration Furosemide 40 mg 07/14/19 10:00 07/14/19 11:54 Lasix Injection - IVPUSH 40 mg DAILY JOLENE Administration Gabapentin 300 mg 07/14/19 06:00 07/14/19 13:11 Neurontin - PO 300 mg TID JOLENE Administration Hydralazine HCl 50 mg 07/14/19 06:00 07/14/19 13:11 Apresoline - PO 50 mg TID JOLENE Administration Insulin Aspart 1 vial 07/14/19 07:00 07/14/19 16:55 Novolog Vial Sliding Scale - SQ Not Given [facility] Protocol Lidocaine 1 patch 07/14/19 10:00 07/14/19 11:56 Lidoderm Patch - TP 1 patch DAILY JOLENE Administration Miscellaneous 1 each 07/14/19 22:00 Lidoderm Patch Removal MC DAILY@2200 JOLENE Tramadol HCl 50 mg 07/14/19 16:47 07/14/19 16:55 Ultram - PO 50 mg Q6H PRN Administration PAIN LEVEL 6-10 Verapamil HCl 120 mg 07/14/19 10:00 07/14/19 11:53 Calan Sr - PO 120 mg DAILY JOLENE Administration Impression 1. CKD 2. CHF 3. a-fib 4. lower ext edema 5. COPD 6. active smoker 7. non compliance 8. slurred speech 9. JOSEPH Plan - renal function improving - cont lasix - repeat labs in am - neuro input appreciated - check ua
[2019-07-14] MEDS: traMADol HCL 50 MG TABLET PO PRN (16:55)
--- NOTE | 2019-07-14 17:01 | CON.CARD ---
Consult Consult Specialty:: Cardiology Reason for Consultation:: Edema - History of Present Illness Chief Complaint: Leg swelling History of Present Illness: This is a 59 year old female with a PMH of hypertension, AFIB, CHF, COPD, DM, and CKD. Echocardiogram 04/26/19 showed normal LV funciton, moderate severe AI, moderate MR, severe TR. She presents now with weakness, loss of appetite, slurred speech and increase lower extremity edema with some PEÑA. 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) Cardio/Vascular: Yes: AFIB, CHF, HTN Pulmonary: Yes: Asthma, COPD, O2 Dependent, Pulmonary Embolus (in the past), Pulmonary Fibrosis (history) Renal/: Yes: Renal Inusuff (CKD) ...: No Musculoskeletal: Yes: Osteoarthritis Endocrine: Yes: Diabetes Mellitus - Past Surgical History Past Surgical History: Yes: - Alcohol/Substance Use Hx Alcohol Use: No History of Substance Use: reports: None - Smoking History Smoking history: Former smoker Have you smoked in the past 12 months: No Aproximately how many cigarettes per day: 2 - Social History Usual Living Arrangement: Alone ADL: Independent History of Recent Travel: No Home Medications - Allergies Allergies/Adverse Reactions: Allergies Allergy/AdvReac Type Severity Reaction Status Date / Time morphine Allergy Severe Verified 07/13/19 18:42 Penicillins Allergy Severe Hives Verified 07/13/19 18:42 tomato [Tomato] Allergy Unknown Verified 07/13/19 18:42 chocolate AdvReac Unknown Uncoded 07/13/19 18:42 - Home Medications Home Medications: Ambulatory Orders Albuterol Sulfate Inhaler - [Ventolin HFA Inhaler -] 1 inh IH QID PRN 05/21/18 Budesonide/Formeterol Fumarate [SYMBICORT 80/4.5mcg -] 2 puff IH BID #1 inhaler 12/28/18 Bupropion HCl [Wellbutrin Xl -] 150 mg PO DAILY tab.sr.24h 12/28/18 Cholecalciferol (Vitamin D3) [Vitamin D -] 50,000 unit PO WEEKLY 01/22/19 Linagliptin [Tradjenta] 5 mg PO DAILY 01/22/19 Acetaminophen [Tylenol .Regular Strength -] 650 mg PO Q6H PRN tablet 02/10/19 Apixaban [Eliquis -] 2.5 mg PO BID #60 tablet 04/30/19 Lidocaine 5% Patch [Lidoderm -] 1 patch TP DAILY #30 patch 04/30/19 Gabapentin [Neurontin -] 300 mg PO TID #60 capsule 06/28/19 Verapamil HCl ER [Calan Sr -] 120 mg PO DAILY #30 tablet.er 06/28/19 hydrALAZINE HCL [Apresoline -] 50 mg PO TID #90 tablet MDD 3 06/28/19 Amlodipine Besylate [Norvasc -] 5 mg PO DAILY 07/13/19 Diclofenac Sodium [Diclo Gel] 1 each TP ASDIR 07/13/19 Digoxin [Lanoxin -] 0.125 mg PO DAILY 07/13/19 Furosemide [Lasix] 40 mg PO DAILY 07/13/19 Oxycodone HCl/Acetaminophen [Endocet 10-325 mg Tablet] 1 each PO QID PRN Vital Signs: Vital Signs Temperature 98.1 F 07/14/19 14:13 Pulse Rate 128 H 07/14/19 14:13 Respiratory Rate 16 07/14/19 14:13 Blood Pressure 159/96 07/14/19 14:13 O2 Sat by Pulse Oximetry (%) 99 07/14/19 09:09 Constitutional: Yes: No Distress Respiratory: Yes: Diminished, Dullness (bibasilar) Gastrointestinal: Yes: Soft Cardiovascular: Yes: Pulse Irregular (S1S2 2/6 HSM LSB) Edema: LLE: 1+, RLE: 1+ Neurological: Yes: Alert, Oriented - Other Data Labs, Other Data: CBC, BMP 07/14/19 05:24 07/14/19 05:24 INR, PTT INR 1.32 (0.83-1.09) H 07/13/19 19:19 Troponin, BNP 07/13/19 19:19 B-Natriuretic Peptide 02087.6 H Troponin, BNP 07/13/19 19: B-Natriuretic Peptide 01663.6 H Assessment/Plan 59 year old female with a PMH of hypertension, AFIB, CHF, COPD, DM, and CKD. Echocardiogram 04/26/19 showed normal LV funciton, moderate severe AI, moderate MR, severe TR. She presents now with weakness, loss of appetite, slurred speech and increase lower extremity edema with some PEÑA. CHF Acute on chronic diastolic Furosemide (Lasix Injection -) 40 mg IVPUSH DAILY Daily I's/O's/Wt's/Lytes BNP^ AFIB AC Apixaban (Eliquis -) 2.5 mg PO BID Rate control Digoxin (Lanoxin -) 0.125 mg PO DAILY Verapamil HCl (Calan Sr -) 120 mg PO DAILY HTN Would not give 2 diffrerent Ca++ blockers (Verapamil and amlodipine) Would DC amlodipine (Probably contributing to the leg swelling Continue Hydralazine HCl (Apresoline -) 50 mg PO TID Verapamil HCl (Calan Sr -) 120 mg PO DAILY
--- NOTE | 2019-07-14 18:47 | CONS ---
DATE OF CONSULTATION: DATE OF CONSULTATION: 07/14/2019 HISTORY OF PRESENT ILLNESS: The patient is a 59-year-old woman with a past medical history of CHF and CKD. She is still an active smoker. She was most recently in the hospital from June 23 through June 28, 2019 for CHF. She lives at home with her . She now returns to the ER with complaints of arm weakness and some slurred speech that happened yesterday and resolved. She reports that she has chronic trembling, shaking and is dropping things, which her corroborates. She is on pain medications for chronic back and leg pain. She denies any vomiting or dysuria. She has no abdominal pain. She has no constipation. She denies any cough, fevers or chills. PAST MEDICAL/SURGICAL HISTORY: Notable for sciatica, atrial fibrillation, CHF, hypertension, hyperlipidemia, renal insufficiency, osteoarthritis, diabetes, hypothyroidism and section. She has a history of COPD and was intubated in 2012. SOCIAL HISTORY: She is still an every-day smoker. She lives with her spouse. She is independent. There has been no recent travel. FAMILY HISTORY: Noncontributory. ALLERGIES: MORPHINE, PENICILLIN (which causes hives and rash but no shortness of breath or anaphylaxis), TOMATOES and CHOCOLATE. HOME MEDICATIONS: Apresoline, Calan SR, Tradjenta, Lidoderm, Neurontin, Lasix, digoxin, vitamin D, Wellbutrin, Symbicort, Eliquis, amlodipine, Ventolin inhaler. REVIEW OF SYSTEMS: She denies any chest pain, nausea, vomiting, diarrhea or dysuria. Her slurred speech has resolved, as has her lethargy. PHYSICAL EXAMINATION: Vital Signs: Temperature 98.2, pulse 94 and irregular, blood pressure 156/87, respiratory rate 18. She is saturating 99 % on 2 liters. HEENT: Normocephalic. Her eyes are anicteric. Lungs: There are bibasilar crackles. Heart: Irregularly irregular. Abdomen: Soft, nontender. She has no suprapubic or CVA pain. Extremities: She has 1+ pretibial edema bilaterally. LABORATORY DATA: Notable for a white count of 4.2, hemoglobin 11, platelets are 117. BUN and creatinine are 39 and 2.7. Her creatinine on June 28, 2019 was 1.6. BNP is 20,165. A urinalysis shows 2+ leukocytes with 12 white cells. It also shows many epithelial cells. A urine culture is pending. A head CT shows no evidence of any acute process. A chest x-ray is notable for increased coarse markings. In summary, this is a 59-year-old woman I have been asked to see for possible UTI. She has no signs of a symptomatic urinary tract infection. She has a consistent with mild heart failure. Labs are consistent with acute kidney injury in the setting of chronic kidney disease. I would agree with a neurology evaluation to rule out possible TIA given her slurred speech, which has resolved. No need for antibiotics at this time. The urinalysis appears contaminated with epithelial cells and she is asymptomatic. No need to repeat. RACHEL MARQUEZ M.D. [id number]
[2019-07-14] MEDS ORDERED: oxyCODONE HCL 5 MG TABLET PO ONE (19:12)
[2019-07-14] MEDS: LIDOCAINE PATCH REMOVAL MC SCH (21:12)
[2019-07-15] MEDS: traMADol HCL 50 MG TABLET PO PRN (05:56)
[2019-07-15] MEDS: GABAPENTIN 300 MG CAPSULE (FP) PO SCH ×3 (05:56→21:19)
[2019-07-15] MEDS: hydrALAZINE HCL 25 MG TABLET (FP) PO SCH ×3 (05:56→21:19)
[2019-07-15] MEDS: INSULIN SLIDING SCALE (NOVOLOG) 1 VIAL SQ SCH ×2 (05:59→16:48)
[2019-07-15 07:41] LABS: ALBUMIN 3.2 g/dl (3.4-5.0); BILIRUBIN,TOTAL 0.7 mg/dL (0.2-1); BLOOD UREA NITROGEN 32.5 mg/dL (7-18); POTASSIUM 3.5 mmol/L (3.5-5.1); TOT PROT 6.6 g/dl (6.4-8.2)
[2019-07-15] MEDS ORDERED: PT OWN MED DRAWER 7, Y5N ONE ×2 (09:17→21:05)
[2019-07-15] MEDS: DIGOXIN 0.125 MG TABLET (FP) PO SCH (09:21)
[2019-07-15] MEDS: FUROSEMIDE 40 MG/4 ML INJECTABLE VIAL IVPUSH SCH (09:21)
[2019-07-15] MEDS: APIXABAN 2.5 MG TABLET PO SCH ×2 (09:21→21:19)
[2019-07-15] MEDS: LIDOCAINE 5% TOPICAL PATCH TP SCH (09:22)
[2019-07-15] MEDS: VERAPAMIL HCL 120 MG E.R. TABLET PO SCH (09:22)
[2019-07-15] MEDS: BUDESONIDE/FORMETEROL FUMARATE 80/4.5 mcg INHALER IH SCH ×2 (09:30→21:22)
--- NOTE | 2019-07-15 09:58 | PN ---
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 (short form) - Note 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: 59 year old woman with a history of afib (on eliquis), CHF, HTN, Asthma, PE in the past, pulm fibrosis, sleep apnea, renal insuff(CKD), OA, DM who arrived to ED for weakness in the arms bilaterally and loss of appetite and some slurred speech for two days as noted by . The patient also reports swelling in the legs and mild shortness of breath. Patient denies fever, cough, congestion , nausea, vomiting, diarrhea, constipation or any other symptoms. Today pt denies any complaints and states she she is doing better. No FOX or focal /motor sensory complaints. FU : no new Sx , at baseline, no CO MRI reviewed-- no acute CVA , MRI BRAIN Impression. There is no evidence of abnormal restricted diffusion in the brain to suggest acute or subacute infarction. 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) Cardio/Vascular: Yes: AFIB, CHF, HTN Pulmonary: Yes: Asthma, COPD, O2 Dependent, Pulmonary Embolus (in the past), Pulmonary Fibrosis (history) Renal/: Yes: Renal Inusuff (CKD) ...: No Musculoskeletal: Yes: Osteoarthritis Endocrine: Yes: Diabetes Mellitus - Past Surgical History Past Surgical History: Yes: - Alcohol/Substance Use Hx Alcohol Use: No History of Substance Use: reports: None - Smoking History Smoking history: Former smoker Have you smoked in the past 12 months: No Aproximately how many cigarettes per day: 2 - Social History Usual Living Arrangement: Alone ADL: Independent History of Recent Travel: No Home Medications - Allergies Allergies/Adverse Reactions: Allergies Allergy/AdvReac Type Severity Reaction Status Date / Time morphine Allergy Severe Verified 07/13/19 18:42 Penicillins Allergy Severe Hives Verified 07/13/19 18:42 tomato [Tomato] Allergy Unknown Verified 07/13/19 18:42 chocolate AdvReac Unknown Uncoded 07/13/19 18:42 - Home Medications Home Medications: Ambulatory Orders Albuterol Sulfate Inhaler - [Ventolin HFA Inhaler -] 1 inh IH QID PRN 05/21/18 Budesonide/Formeterol Fumarate [SYMBICORT 80/4.5mcg -] 2 puff IH BID #1 inhaler 12/28/18 Bupropion HCl [Wellbutrin Xl -] 150 mg PO DAILY tab.sr.24h 12/28/18 Cholecalciferol (Vitamin D3) [Vitamin D -] 50,000 unit PO WEEKLY 01/22/19 Linagliptin [Tradjenta] 5 mg PO DAILY 01/22/19 Acetaminophen [Tylenol .Regular Strength -] 650 mg PO Q6H PRN tablet 02/10/19 Apixaban [Eliquis -] 2.5 mg PO BID #60 tablet 04/30/19 Lidocaine 5% Patch [Lidoderm -] 1 patch TP DAILY #30 patch 04/30/19 Gabapentin [Neurontin -] 300 mg PO TID #60 capsule 06/28/19 Verapamil HCl ER [Calan Sr -] 120 mg PO DAILY #30 tablet.er 06/28/19 hydrALAZINE HCL [Apresoline -] 50 mg PO TID #90 tablet MDD 3 06/28/19 Amlodipine Besylate [Norvasc -] 5 mg PO DAILY 07/13/19 Diclofenac Sodium [Diclo Gel] 1 each TP ASDIR 07/13/19 Digoxin [Lanoxin -] 0.125 mg PO DAILY 07/13/19 Furosemide [Lasix] 40 mg PO DAILY 07/13/19 Oxycodone HCl/Acetaminophen [Endocet 10-325 mg Tablet] 1 each PO QID PRN Physical Exam-Neuro Vital Signs: Vital Signs Temperature 98.1 F 07/15/19 06:00 Pulse Rate 99 H 07/15/19 09:21 Respiratory Rate 20 07/15/19 06:00 Blood Pressure 150/78 07/15/19 06:00 O2 Sat by Pulse Oximetry (%) 92 L 07/14/19 21:00 Constitutional: Yes: Well Nourished Labs: CBCD WBC 4.2 K/mm3 (4.0-10.0) 07/14/19 05:24 RBC 3.69 M/mm3 (3.60-5.2) 07/14/19 05:24 Hgb 11.0 GM/dL (10.7-15.3) 07/14/19 05:24 Hct 34.2 % (32.4-45.2) 07/14/19 05:24 MCV 92.7 fl (80-96) 07/14/19 05:24 MCHC 32.2 g/dl (32.0-36.0) 07/14/19 05:24 RDW 18.0 % (11.6-15.6) H 07/14/19 05:24 Plt Count 117 K/MM3 (134-434) L 07/14/19 05:24 MPV 10.3 fl (7.5-11.1) 07/14/19 05:24 CMP Sodium 143 mmol/L (136-145) 07/15/19 06:50 Potassium 3.5 mmol/L (3.5-5.1) 07/15/19 06:50 Chloride 104 mmol/L (98-107) 07/15/19 06:50 Carbon Dioxide 36 mmol/L (21-32) H 07/15/19 06:50 Anion Gap 3 MMOL/L (8-16) L 07/15/19 06:50 BUN 32.5 mg/dL (7-18) H 07/15/19 06:50 Creatinine 2.0 mg/dL (0.55-1.3) H 07/15/19 06:50 Calcium 9.0 mg/dL (8.5-10.1) 07/15/19 06:50 Total Bilirubin 0.7 mg/dL (0.2-1) 07/15/19 06:50 AST 11 U/L (15-37) L 07/15/19 06:50 ALT 12 U/L (13-61) L 07/15/19 06:50 Alkaline Phosphatase 83 U/L (45-117) 07/15/19 06:50 Total Protein 6.6 g/dl (6.4-8.2) 07/15/19 06:50 Albumin 3.2 g/dl (3.4-5.0) L 07/15/19 06:50 - Neuro Exam Level Of Consciousness: Yes: Alert (awake, alert, EOMI, slight facial assymetry , + adentialism , no focal weakness, no drift ) Problem List - Problems (1) Transient ischemic attack (TIA) Code(s): G45.9 - TRANSIENT CEREBRAL ISCHEMIC ATTACK, UNSPECIFIED (2) Dysarthria Code(s): R47.1 - DYSARTHRIA AND ANARTHRIA (3) Atrial fibrillation Code(s): I48.91 - UNSPECIFIED ATRIAL FIBRILLATION Assessment/Plan 59 year old woman with a history of afib (on eliquis), CHF, HTN, Asthma, PE in the past, pulm fibrosis, sleep apnea, renal insuff(CKD), OA, DM who arrived to ED for weakness in the arms bilaterally and loss of appetite and some slurred speech for two days as noted by . The patient also reports swelling in the legs and mild shortness of breath. Patient denies fever, cough, congestion , nausea, vomiting, diarrhea, constipation or any other symptoms. Today pt denies any complaints and states she she is doing better. No FOX or focal /motor sensory complaints. AP : HX of AFIB /PE on AC, admitted for dysarthria /SOB -- appears to be doing better and close to baseline ? if this was TIA , already on AC MRI BRAIN (-) cont control of vascular RF check Dopplers to ensure no carotid disease FU cardiac PARTIDA neuro stable and can FU as outpt DR LUKE Problem List - Problems (1) Transient ischemic attack (TIA) Code(s): G45.9 - TRANSIENT CEREBRAL ISCHEMIC ATTACK, UNSPECIFIED (2) Dysarthria Code(s): R47.1 - DYSARTHRIA AND ANARTHRIA (3) Atrial fibrillation Code(s): I48.91 - UNSPECIFIED ATRIAL FIBRILLATION
[2019-07-15 10:19] LABS: EPI CELLS 3.5 /HPF (0-5/HPF); HYALINE CASTS 0 /lpf (0-8); URINE APPEARANCE CLEAR; URINE BACTERIA 56.9 /hpf (NEGATIVE); URINE BILIRUBIN NEGATIVE (NEGATIVE); URINE COLOR YELLOW; URINE GLUCOSE (UA) NEGATIVE (NEGATIVE); URINE KETONE NEGATIVE (NEGATIVE); URINE LEUK ESTERASE TRACE (NEGATIVE); URINE NITRITE NEGATIVE (NEGATIVE); URINE PROTEIN NEGATIVE (NEGATIVE); URINE RBC 1 /hpf (0-4); URINE UROBILINOGEN 0.2 mg/dL (0.2-1.0); URINE WBC 6 /hpf (0-5)
[2019-07-15] MEDS: amLODIPine BESYLATE 5 MG TABLET (FP) PO SCH (10:51)
--- NOTE | 2019-07-15 14:09 | PN ---
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, Physician Chief Complaint: patient feeling better no slurring of speech wants her pain medication - Current Medication List Current Medications: Active Medications Acetaminophen (Tylenol -) 650 mg PO Q6H PRN PRN Reason: PAIN LEVEL 6-10 Albuterol Sulfate (Ventolin Hfa Inhaler -) 1 puff IH Q6H PRN PRN Reason: ASTHMA Apixaban (Eliquis -) 2.5 mg PO BID [facility] Last Admin: 07/15/19 09:21 Dose: 2.5 mg Budesonide/Formoterol Fumarate (Symbicort 80/4.5mcg -) 2 puff IH BID [facility] Last Admin: 07/15/19 09:30 Dose: 2 puff Bupropion HCl (Wellbutrin Xl -) 150 mg PO DAILY [facility] Last Admin: 07/15/19 09:21 Dose: 150 mg Digoxin (Lanoxin -) 0.125 mg PO DAILY [facility] Last Admin: 07/15/19 09:21 Dose: 0.125 mg Furosemide (Lasix Injection -) 40 mg IVPUSH DAILY [facility] Last Admin: 07/15/19 09:21 Dose: 40 mg Gabapentin (Neurontin -) 300 mg PO TID [facility] Last Admin: 07/15/19 13:37 Dose: 300 mg Hydralazine HCl (Apresoline -) 50 mg PO TID [facility] Last Admin: 07/15/19 13:37 Dose: 50 mg Insulin Aspart ([facility] V[facility]iding [facility] -) [facility] Protocol Last Admin: 07/15/19 05:59 Dose: Not Given Lidocaine (Lidoderm Patch -) 1 patch TP DAILY [facility] Last Admin: 07/15/19 09:22 Dose: 1 patch Miscellaneous (Lidoderm Patch Removal) 1 each MC DAILY@2200 [facility] Last Admin: 07/14/19 21:12 Dose: 1 each Tramadol HCl (Ultram -) 50 mg PO Q6H PRN PRN Reason: PAIN LEVEL 6-10 Last Admin: 07/15/19 05:56 Dose: 50 mg Verapamil HCl (Calan Sr -) 120 mg PO DAILY [facility] Last Admin: 07/15/19 09:22 Dose: 120 mg - Objective Vital Signs: Vital Signs Temperature 97.9 F 07/15/19 13:13 Pulse Rate 105 H 07/15/19 13:13 Respiratory Rate 16 07/15/19 13:13 Blood Pressure 145/77 07/15/19 13:13 O2 Sat by Pulse Oximetry (%) 93 L 07/15/19 09:00 Constitutional: Yes: Calm Cardiovascular: Yes: Regular Rate and Rhythm, S1, S2 Respiratory: Yes: CTA Bilaterally Gastrointestinal: Yes: Normal Bowel Sounds, Soft Edema: Yes Neurological: Yes: Alert, Oriented Labs: CBC, BMP 07/14/19 05:24 07/15/19 06:50 INR, PTT INR 1.32 (0.83-1.09) H 07/13/19 19:19 Problem List - Problems (1) Atrial fibrillation Assessment/Plan: eliquis digoxin verampamil Code(s): I48.91 - UNSPECIFIED ATRIAL FIBRILLATION (2) CHF (congestive heart failure) Assessment/Plan: iv lasix daily wieghts Code(s): I50.9 - HEART FAILURE, UNSPECIFIED Qualifiers: Heart failure type: diastolic Heart failure chronicity: acute on chronic Qualified Code(s): I50.33 - Acute on chronic diastolic (congestive) heart failure (3) Transient ischemic attack (TIA) Assessment/Plan: brain MRI no infarct Code(s): G45.9 - TRANSIENT CEREBRAL ISCHEMIC ATTACK, UNSPECIFIED (4) HTN (hypertension) Assessment/Plan: hydrsalazine 50mg tid Code(s): I10 - ESSENTIAL (PRIMARY) HYPERTENSION (5) Acute kidney injury superimposed on CKD Assessment/Plan: creatinine is improving Code(s): N17.9 - ACUTE KIDNEY FAILURE, UNSPECIFIED; N18.9 - CHRONIC KIDNEY DISEASE, UNSPECIFIED
[2019-07-15] MEDS: oxyCODONE HCL 5 MG TABLET PO PRN ×2 (15:01→21:20)
--- NOTE | 2019-07-15 15:17 | PN ---
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 (short form) - Note 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: feels well wants to go home Vital Signs Period Temp Pulse Resp BP Sys/Salgado Pulse Ox Last 24 Hr 97.2 F-98.2 F 72-105 16-20 124-150/62-88 92-93 cor-rrr lungs clear +murmur abd soft, nt ext no edema CBC, BMP 07/14/19 05:24 07/15/19 06:50 Microbiology 07/13/19 19:33 Urine - Urine Clean Catch Urine Culture - Final Normal Urogenital Juani a/p chf improved stephanie- improved urine culture negative continue to observe off antibioitcs patient feels well please call back if needed Problem List - Problems (1) Asymptomatic bacteriuria Code(s): R82.71 - BACTERIURIA (2) Acute kidney injury superimposed on CKD Code(s): N17.9 - ACUTE KIDNEY FAILURE, UNSPECIFIED; N18.9 - CHRONIC KIDNEY DISEASE, UNSPECIFIED (3) CHF (congestive heart failure) Code(s): I50.9 - HEART FAILURE, UNSPECIFIED Qualifiers: Heart failure type: diastolic Heart failure chronicity: acute on chronic Qualified Code(s): I50.33 - Acute on chronic diastolic (congestive) heart failure (4) Cigarette nicotine dependence Code(s): F17.200 - NICOTINE DEPENDENCE, UNSPECIFIED, UNCOMPLICATED
--- NOTE | 2019-07-15 17:06 | PN ---
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, Physician Chief Complaint: No new complaints History of Present Illness: This is a 59 year old female with a PMH of hypertension, AFIB, CHF, COPD, DM, and CKD. Echocardiogram 04/26/19 showed normal LV funciton, moderate severe AI, moderate MR, severe TR. She presents now with weakness, loss of appetite, slurred speech and increase lower extremity edema with some PEÑA. - Current Medication List Current Medications: Active Medications Acetaminophen (Tylenol -) 650 mg PO Q6H PRN PRN Reason: PAIN LEVEL 6-10 Albuterol Sulfate (Ventolin Hfa Inhaler -) 1 puff IH Q6H PRN PRN Reason: ASTHMA Apixaban (Eliquis -) 2.5 mg PO BID [facility] Last Admin: 07/15/19 09:21 Dose: 2.5 mg Budesonide/Formoterol Fumarate (Symbicort 80/4.5mcg -) 2 puff IH BID [facility] Last Admin: 07/15/19 09:30 Dose: 2 puff Bupropion HCl (Wellbutrin Xl -) 150 mg PO DAILY [facility] Last Admin: 07/15/19 09:21 Dose: 150 mg Digoxin (Lanoxin -) 0.125 mg PO DAILY [facility] Last Admin: 07/15/19 09:21 Dose: 0.125 mg Furosemide (Lasix Injection -) 40 mg IVPUSH DAILY [facility] Last Admin: 07/15/19 09:21 Dose: 40 mg Gabapentin (Neurontin -) 300 mg PO TID [facility] Last Admin: 07/15/19 13:37 Dose: 300 mg Hydralazine HCl (Apresoline -) 50 mg PO TID [facility] Last Admin: 07/15/19 13:37 Dose: 50 mg Insulin Aspart (Novolog Vial Sliding Scale -) 1 vial SQ BIDAC [facility]; Protocol Last Admin: 07/15/19 16:48 Dose: Not Given Lidocaine (Lidoderm Patch -) 1 patch TP DAILY [facility] Last Admin: 07/15/19 09:22 Dose: 1 patch Miscellaneous (Lidoderm Patch Removal) 1 each MC DAILY@2200 [facility] Last Admin: 07/14/19 21:12 Dose: 1 each Oxycodone HCl (Roxicodone -) 5 mg PO Q6H PRN PRN Reason: PAIN LEVEL 7 - 10 Last Admin: 07/15/19 15:01 Dose: 5 mg Tramadol HCl (Ultram -) 50 mg PO Q6H PRN PRN Reason: PAIN LEVEL 6-10 Last Admin: 07/15/19 05:56 Dose: 50 mg Verapamil HCl (Calan Sr -) 120 mg PO DAILY [facility] Last Admin: 07/15/19 09:22 Dose: 120 mg - Objective Vital Signs: Vital Signs Temperature 97.9 F 07/15/19 13:13 Pulse Rate 105 H 07/15/19 13:13 Respiratory Rate 16 07/15/19 13:13 Blood Pressure 145/77 07/15/19 13:13 O2 Sat by Pulse Oximetry (%) 93 L 07/15/19 09:00 Constitutional: Yes: No Distress Eyes: Yes: WNL HENT: Yes: WNL Neck: Yes: WNL Cardiovascular: Yes: Pulse Irregular, S1, S2 Respiratory: Yes: CTA Bilaterally Gastrointestinal: Yes: Soft Extremities: Yes: WNL Edema: LLE: Trace, RLE: Trace Neurological: Yes: Alert, Oriented Labs: CBC, BMP 07/14/19 05:24 07/15/19 06:50 INR, PTT INR 1.32 (0.83-1.09) H 07/13/19 19:19 Assessment/Plan 59 year old female with a PMH of hypertension, AFIB, CHF, COPD, DM, and CKD. Echocardiogram 04/26/19 showed normal LV funciton, moderate severe AI, moderate MR, severe TR. She presents now with weakness, loss of appetite, slurred speech and increase lower extremity edema with some PEÑA. CHF Acute on chronic diastolic Change to PO diuretics Daily I's/O's/Wt's/Lytes AFIB AC Apixaban (Eliquis -) 2.5 mg PO BID Rate control Digoxin (Lanoxin -) 0.125 mg PO DAILY Verapamil HCl (Calan Sr -) 120 mg PO DAILY Call us prn Active Medications Acetaminophen (Tylenol -) 650 mg PO Q6H PRN PRN Reason: PAIN LEVEL 6-10 Albuterol Sulfate (Ventolin Hfa Inhaler -) 1 puff IH Q6H PRN PRN Reason: ASTHMA Apixaban (Eliquis -) 2.5 mg PO BID [facility] Last Admin: 07/15/19 09:21 Dose: 2.5 mg Budesonide/Formoterol Fumarate (Symbicort 80/4.5mcg -) 2 puff IH BID [facility] Last Admin: 07/15/19 09:30 Dose: 2 puff Bupropion HCl (Wellbutrin Xl -) 150 mg PO DAILY [facility] Last Admin: 07/15/19 09:21 Dose: 150 mg Digoxin (Lanoxin -) 0.125 mg PO DAILY [facility] Last Admin: 07/15/19 09:21 Dose: 0.125 mg Furosemide (Lasix Injection -) 40 mg IVPUSH DAILY [facility] Last Admin: 07/15/19 09:21 Dose: 40 mg Gabapentin (Neurontin -) 300 mg PO TID [facility] Last Admin: 07/15/19 13:37 Dose: 300 mg Hydralazine HCl (Apresoline -) 50 mg PO TID [facility] Last Admin: 07/15/19 13:37 Dose: 50 mg Insulin Aspart ([facility] Vial Sliding [facility] -) [facility] Protocol Last Admin: 07/15/19 16:48 Dose: Not Given Lidocaine (Lidoderm Patch -) 1 patch TP DAILY [facility] Last Admin: 07/15/19 09:22 Dose: 1 patch Miscellaneous (Lidoderm Patch Removal) 1 each MC DAILY@2200 [facility] Last Admin: 07/14/19 21:12 Dose: 1 each Oxycodone HCl (Roxicodone -) 5 mg PO Q6H PRN PRN Reason: PAIN LEVEL 7 - 10 Last Admin: 07/15/19 15:01 Dose: 5 mg Tramadol HCl (Ultram -) 50 mg PO Q6H PRN PRN Reason: PAIN LEVEL 6-10 Last Admin: 07/15/19 05:56 Dose: 50 mg Verapamil HCl (Calan Sr -) 120 mg PO DAILY [facility] Last Admin: 07/15/19 09:22 Dose: 120 mg
--- NOTE | 2019-07-15 17:49 | PN ---
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, Physician History of Present Illness: Pt seen and examined at bedside. She is awake and alert. She is asking to go home. She denies shortness of breath. - Current Medication List Current Medications: Active Medications Acetaminophen (Tylenol -) 650 mg PO Q6H PRN PRN Reason: PAIN LEVEL 6-10 Albuterol Sulfate (Ventolin Hfa Inhaler -) 1 puff IH Q6H PRN PRN Reason: ASTHMA Apixaban (Eliquis -) 2.5 mg PO BID [facility] Last Admin: 07/15/19 09:21 Dose: 2.5 mg Budesonide/Formoterol Fumarate (Symbicort 80/4.5mcg -) 2 puff IH BID [facility] Last Admin: 07/15/19 09:30 Dose: 2 puff Bupropion HCl (Wellbutrin Xl -) 150 mg PO DAILY [facility] Last Admin: 07/15/19 09:21 Dose: 150 mg Digoxin (Lanoxin -) 0.125 mg PO DAILY [facility] Last Admin: 07/15/19 09:21 Dose: 0.125 mg Furosemide (Lasix Injection -) 40 mg IVPUSH DAILY [facility] Last Admin: 07/15/19 09:21 Dose: 40 mg Gabapentin (Neurontin -) 300 mg PO TID [facility] Last Admin: 07/15/19 13:37 Dose: 300 mg Hydralazine HCl (Apresoline -) 50 mg PO TID [facility] Last Admin: 07/15/19 13:37 Dose: 50 mg Insulin Aspart ([facility]iding [facility] -) [facility] Last Admin: 07/15/19 16:48 Dose: Not Given Lidocaine (Lidoderm Patch -) 1 patch TP DAILY [facility] Last Admin: 07/15/19 09:22 Dose: 1 patch Miscellaneous (Lidoderm Patch Removal) 1 each MC DAILY@2200 [facility] Last Admin: 07/14/19 21:12 Dose: 1 each Oxycodone HCl (Roxicodone -) 5 mg PO Q6H PRN PRN Reason: PAIN LEVEL 7 - 10 Last Admin: 07/15/19 15:01 Dose: 5 mg Tramadol HCl (Ultram -) 50 mg PO Q6H PRN PRN Reason: PAIN LEVEL 6-10 Last Admin: 07/15/19 05:56 Dose: 50 mg Verapamil HCl (Calan Sr -) 120 mg PO DAILY [facility] Last Admin: 07/15/19 09:22 Dose: 120 mg - Objective Vital Signs: Vital Signs Temperature 97.9 F 07/15/19 13:13 Pulse Rate 105 H 07/15/19 13:13 Respiratory Rate 16 07/15/19 13:13 Blood Pressure 145/77 07/15/19 13:13 O2 Sat by Pulse Oximetry (%) 93 L 07/15/19 09:00 Constitutional: Yes: Calm Eyes: Yes: Conjunctiva Clear HENT: Yes: Atraumatic Cardiovascular: Yes: S1, S2 Respiratory: Yes: CTA Bilaterally Gastrointestinal: Yes: Soft Genitourinary: Yes: WNL Edema: Yes Edema: LLE: 1+, RLE: 1+ Neurological: Yes: Oriented Psychiatric: Yes: Oriented Labs: CBC, BMP 07/14/19 05:24 07/15/19 06:50 INR, PTT INR 1.32 (0.83-1.09) H 07/13/19 19:19 Problem List - Problems (1) Acute kidney injury superimposed on CKD Code(s): N17.9 - ACUTE KIDNEY FAILURE, UNSPECIFIED; N18.9 - CHRONIC KIDNEY DISEASE, UNSPECIFIED (2) Atrial fibrillation Code(s): I48.91 - UNSPECIFIED ATRIAL FIBRILLATION (3) CHF (congestive heart failure) Code(s): I50.9 - HEART FAILURE, UNSPECIFIED Qualifiers: Heart failure type: diastolic Heart failure chronicity: acute on chronic Qualified Code(s): I50.33 - Acute on chronic diastolic (congestive) heart failure Assessment/Plan Current Medications Generic Name Dose Route Start Last Admin Trade Name Malena PRN Reason Stop Dose Admin Acetaminophen 650 mg 07/14/19 00:21 Tylenol - PO Q6H PRN PAIN LEVEL 6-10 Albuterol Sulfate 1 puff 07/14/19 00:21 Ventolin Hfa Inhaler - IH Q6H PRN ASTHMA Apixaban 2.5 mg 07/14/19 10:00 07/15/19 09:21 Eliquis - PO 2.5 mg BID [facility] Administration Budesonide/Formoterol Fumarate 2 puff 07/14/19 10:00 07/15/19 09:30 Symbicort 80/4.5mcg - IH 2 puff BID [facility] Administration Bupropion HCl 150 mg 07/14/19 10:00 07/15/19 09:21 Wellbutrin Xl - PO 150 mg DAILY [facility] Administration Digoxin 0.125 mg 07/14/19 10:00 07/15/19 09:21 Lanoxin - PO 0.125 mg DAILY [facility] Administration Furosemide 40 mg 07/14/19 10:00 07/15/19 09:21 Lasix Injection - IVPUSH 40 mg DAILY [facility] Administration Gabapentin 300 mg 07/14/19 06:00 07/15/19 13:37 Neurontin - PO 300 mg TID [facility] Administration Hydralazine HCl 50 mg 07/14/19 06:00 07/15/19 13:37 Apresoline - PO 50 mg TID [facility] Administration Insulin Aspart 1 vial 07/14/19 07:00 07/15/19 16:48 Novolog Vial Sliding Scale - SQ Not Given BIDAC [facility] Protocol Lidocaine 1 patch 07/14/19 10:00 07/15/19 09:22 Lidoderm Patch - TP 1 patch DAILY [facility] Administration Miscellaneous 1 each 07/14/19 22:00 07/14/19 21:12 Lidoderm Patch Removal MC 1 each DAILY@2200 [facility] Administration Oxycodone HCl 5 mg 07/15/19 14:06 07/15/19 15:01 Roxicodone - PO 5 mg Q6H PRN Administration PAIN LEVEL 7 - 10 Tramadol HCl 50 mg 07/14/19 16:47 07/15/19 05:56 Ultram - PO 50 mg Q6H PRN Administration PAIN LEVEL 6-10 Verapamil HCl 120 mg 07/14/19 10:00 07/15/19 09:22 Calan Sr - PO 120 mg DAILY [facility] Administration Laboratory Tests 07/15/19 04:30 Urine Protein Negative Urine Blood Negative Laboratory Tests 07/15/19 04:30 Urine Protein Negative Urine Blood Negative Impression 1. CKD 2. CHF 3. a-fib 4. lower ext edema 5. COPD 6. active smoker 7. non compliance 8. slurred speech 9. JOSEPH Plan - renal function continues to improve - cont lasix - discussed compliance - ua neg for blood pr protein
[2019-07-15] MEDS: LIDOCAINE PATCH REMOVAL MC SCH (21:21)
[2019-07-16] MEDS: oxyCODONE HCL 5 MG TABLET PO PRN ×2 (02:49→10:02)
[2019-07-16 06:34] VITALS: TEMP 98.3
[2019-07-16] MEDS: hydrALAZINE HCL 25 MG TABLET (FP) PO SCH ×2 (06:50→13:01)
[2019-07-16] MEDS: GABAPENTIN 300 MG CAPSULE (FP) PO SCH ×2 (06:51→13:01)
[2019-07-16] MEDS: INSULIN SLIDING SCALE (NOVOLOG) 1 VIAL SQ SCH (06:52)
[2019-07-16 07:32] LABS: BLOOD UREA NITROGEN 23.3 mg/dL (7-18); CALCIUM 8.9 mg/dL (8.5-10.1); CREATININE 1.8 mg/dL (0.55-1.3); POTASSIUM 3.5 mmol/L (3.5-5.1)
[2019-07-16] MEDS ORDERED: PT OWN MED DRAWER 7, Y5N ONE (09:55)
[2019-07-16] MEDS: FUROSEMIDE 40 MG/4 ML INJECTABLE VIAL IVPUSH SCH (10:00)
[2019-07-16] MEDS: APIXABAN 2.5 MG TABLET PO SCH (10:03)
[2019-07-16] MEDS: VERAPAMIL HCL 120 MG E.R. TABLET PO SCH (10:03)
[2019-07-16] MEDS: DIGOXIN 0.125 MG TABLET (FP) PO SCH (10:03)
[2019-07-16] MEDS: LIDOCAINE 5% TOPICAL PATCH TP SCH (10:04)
[2019-07-16] MEDS: BUDESONIDE/FORMETEROL FUMARATE 80/4.5 mcg INHALER IH SCH (10:07)
[2019-07-16 10:08] VITALS: PULSE 100
[2019-07-16 11:37] VITALS: BP 137/85
--- NOTE | 2019-07-16 11:41 | DS ---
Physical Examination Vital Signs: Vital Signs Temperature 98.3 F 07/16/19 10:00 Pulse Rate 100 H 07/16/19 10:03 Respiratory Rate 18 07/16/19 10:00 Blood Pressure 137/85 07/16/19 10:00 O2 Sat by Pulse Oximetry (%) 94 L 07/15/19 21:00 Constitutional: Yes: Calm Cardiovascular: Yes: Regular Rate and Rhythm, S1, S2 Respiratory: Yes: CTA Bilaterally Gastrointestinal: Yes: Normal Bowel Sounds, Soft Edema: No Neurological: Yes: Alert, Oriented Labs: CBC, BMP 07/14/19 05:24 07/16/19 05:25 Discharge Summary Problems reviewed: Yes Reason For Visit: CRONIC OBSTRUCTIVE PULMONARY DISEASE Current Active Problems Acute kidney injury superimposed on CKD (Acute) Asymptomatic bacteriuria (Acute) Atrial fibrillation (Acute) CHF (congestive heart failure) (Acute) Dysarthria (Acute) HTN (hypertension) (Acute) Transient ischemic attack (TIA) (Acute) UTI (urinary tract infection) (Acute) Yeast cystitis (Acute) Hospital Course: 59 year old woman with a history of afib (on eliquis), CHF, HTN, Asthma, PE in the past, pulm fibrosis, sleep apnea, renal insuff(CKD), OA, DM who arrived to ED for weakness in the arms bilaterally and loss of appetite and some slurred speech for two days as noted by . The patient also reports swelling in the legs and mild shortness of breath. Patient denies fever, cough, congestion , nausea, vomiting, diarrhea, constipation or any other symptoms. chf exacerbation imporoved with iv lasix will change to oral lasix possible TIA- mRI brain normal and carotid doppler shows no significant stenosis CT head also done no acute infarct seen by renal team during hospital course the renal function improved Condition: Improved - Instructions Referrals: Rivera Doe [Primary Care Provider] - 1 Week Disposition: HOME - Home Medications Comprehensive Discharge Medication List: Ambulatory Orders Albuterol Sulfate Inhaler - [Ventolin HFA Inhaler -] 1 inh IH QID PRN 05/21/18 Budesonide/Formeterol Fumarate [SYMBICORT 80/4.5mcg -] 2 puff IH BID #1 inhaler 12/28/18 Bupropion HCl [Wellbutrin Xl -] 150 mg PO DAILY tab.sr.24h 12/28/18 Cholecalciferol (Vitamin D3) [Vitamin D -] 50,000 unit PO WEEKLY 01/22/19 Linagliptin [Tradjenta] 5 mg PO DAILY 01/22/19 Acetaminophen [Tylenol .Regular Strength -] 650 mg PO Q6H PRN tablet 02/10/19 Apixaban [Eliquis -] 2.5 mg PO BID #60 tablet 04/30/19 Lidocaine 5% Patch [Lidoderm -] 1 patch TP DAILY #30 patch 04/30/19 Gabapentin [Neurontin -] 300 mg PO TID #60 capsule 06/28/19 Verapamil HCl ER [Calan Sr -] 120 mg PO DAILY #30 tablet.er 06/28/19 hydrALAZINE HCL [Apresoline -] 50 mg PO TID #90 tablet MDD 3 06/28/19 Amlodipine Besylate [Norvasc -] 5 mg PO DAILY 07/13/19 Diclofenac Sodium [Diclo Gel] 1 each TP ASDIR 07/13/19 Digoxin [Lanoxin -] 0.125 mg PO DAILY 07/13/19 Furosemide [Lasix] 40 mg PO DAILY 07/13/19 Oxycodone HCl/Acetaminophen [Endocet 10-325 mg Tablet] 1 each PO QID PRN
--- NOTE | 2019-07-16 12:16 | PN ---
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, Physician History of Present Illness: Pt seen and examined at bedside. She is awake and alert. She denies shortness of breath. She is eager to go home. - Current Medication List Current Medications: Active Medications Acetaminophen (Tylenol -) 650 mg PO Q6H PRN PRN Reason: PAIN LEVEL 6-10 Albuterol Sulfate (Ventolin Hfa Inhaler -) 1 puff IH Q6H PRN PRN Reason: ASTHMA Apixaban (Eliquis -) 2.5 mg PO BID [facility] Last Admin: 07/16/19 10:03 Dose: 2.5 mg Budesonide/Formoterol Fumarate (Symbicort 80/4.5mcg -) 2 puff IH BID [facility] Last Admin: 07/16/19 10:07 Dose: 2 puff Bupropion HCl (Wellbutrin Xl -) 150 mg PO DAILY [facility] Last Admin: 07/16/19 10:03 Dose: 150 mg Digoxin (Lanoxin -) 0.125 mg PO DAILY [facility] Last Admin: 07/16/19 10:03 Dose: 0.125 mg Furosemide (Lasix Injection -) 40 mg IVPUSH DAILY [facility] Last Admin: 07/16/19 10:00 Dose: 40 mg Gabapentin (Neurontin -) 300 mg PO TID [facility] Last Admin: 07/16/19 06:51 Dose: 300 mg Hydralazine HCl (Apresoline -) 50 mg PO TID [facility] Last Admin: 07/16/19 06:50 Dose: 50 mg Insulin Aspart (Novolog Vial Sliding Scale -) 1 vial SQ BIDAC [facility]; Protocol Last Admin: 07/16/19 06:52 Dose: Not Given Lidocaine (Lidoderm Patch -) 1 patch TP DAILY [facility] Last Admin: 07/16/19 10:04 Dose: Not Given Miscellaneous (Lidoderm Patch Removal) 1 each MC DAILY@2200 [facility] Last Admin: 07/15/19 21:21 Dose: 1 each Oxycodone HCl (Roxicodone -) 5 mg PO Q6H PRN PRN Reason: PAIN LEVEL 7 - 10 Last Admin: 07/16/19 10:02 Dose: 5 mg Tramadol HCl (Ultram -) 50 mg PO Q6H PRN PRN Reason: PAIN LEVEL 6-10 Last Admin: 07/15/19 05:56 Dose: 50 mg Verapamil HCl (Calan Sr -) 120 mg PO DAILY JOL[facility] Last Admin: 07/16/19 10:03 Dose: 120 mg - Objective Vital Signs: Vital Signs Temperature 98.3 F 07/16/19 10:00 Pulse Rate 100 H 07/16/19 10:03 Respiratory Rate 18 07/16/19 10:00 Blood Pressure 137/85 07/16/19 10:00 O2 Sat by Pulse Oximetry (%) 94 L 07/16/19 09:00 Constitutional: Yes: Calm Eyes: Yes: Conjunctiva Clear HENT: Yes: Atraumatic Neck: Yes: Supple Cardiovascular: Yes: S1, S2 Respiratory: Yes: CTA Bilaterally Gastrointestinal: Yes: Normal Bowel Sounds, Soft Musculoskeletal: Yes: WNL Edema: Yes Edema: LLE: 1+, RLE: 1+ Neurological: Yes: Oriented Psychiatric: Yes: Oriented Labs: CBC, BMP 07/14/19 05:24 07/16/19 05:25 INR, PTT INR 1.32 (0.83-1.09) H 07/13/19 19:19 Problem List - Problems (1) Acute kidney injury superimposed on CKD Code(s): N17.9 - ACUTE KIDNEY FAILURE, UNSPECIFIED; N18.9 - CHRONIC KIDNEY DISEASE, UNSPECIFIED (2) Atrial fibrillation Code(s): I48.91 - UNSPECIFIED ATRIAL FIBRILLATION (3) CHF (congestive heart failure) Code(s): I50.9 - HEART FAILURE, UNSPECIFIED Qualifiers: Heart failure type: diastolic Heart failure chronicity: acute on chronic Qualified Code(s): I50.33 - Acute on chronic diastolic (congestive) heart failure Assessment/Plan Current Medications Generic Name Dose Route Start Last Admin Trade Name Kaleq PRN Reason Stop Dose Admin Acetaminophen 650 mg 07/14/19 00:21 Tylenol - PO Q6H PRN PAIN LEVEL 6-10 Albuterol Sulfate 1 puff 07/14/19 00:21 Ventolin Hfa Inhaler - IH Q6H PRN ASTHMA Apixaban 2.5 mg 07/14/19 10:00 07/16/19 10:03 Eliquis - PO 2.5 mg BID JOLENE Administration Budesonide/Formoterol Fumarate 2 puff 07/14/19 10:00 07/16/19 10:07 Symbicort 80/4.5mcg - IH 2 puff BID JOLENE Administration Bupropion HCl 150 mg 07/14/19 10:00 07/16/19 10:03 Wellbutrin Xl - PO 150 mg DAILY JOLENE Administration Digoxin 0.125 mg 07/14/19 10:00 07/16/19 10:03 Lanoxin - PO 0.125 mg DAILY JOLENE Administration Furosemide 40 mg 07/14/19 10:00 07/16/19 10:00 Lasix Injection - IVPUSH 40 mg DAILY JOLENE Administration Gabapentin 300 mg 07/14/19 06:00 07/16/19 06:51 Neurontin - PO 300 mg TID JOLENE Administration Hydralazine HCl 50 mg 07/14/19 06:00 07/16/19 06:50 Apresoline - PO 50 mg TID JOLENE Administration Insulin Aspart 1 vial 07/14/19 07:00 07/16/19 06:52 Novolog Vial Sliding Scale - SQ Not Given BIDAC [facility] Protocol Lidocaine 1 patch 07/14/19 10:00 07/16/19 10:04 Lidoderm Patch - TP Not Given DAILY [facility] Miscellaneous 1 each 07/14/19 22:00 07/15/19 21:21 Lidoderm Patch Removal MC 1 each DAILY@2200 JOLENE Administration Oxycodone HCl 5 mg 07/15/19 14:06 07/16/19 10:02 Roxicodone - PO 5 mg Q6H PRN Administration PAIN LEVEL 7 - 10 Tramadol HCl 50 mg 07/14/19 16:47 07/15/19 05:56 Ultram - PO 50 mg Q6H PRN Administration PAIN LEVEL 6-10 Verapamil HCl 120 mg 07/14/19 10:00 07/16/19 10:03 Calan Sr - PO 120 mg DAILY JOLENE Administration Impression 1. CKD 2. CHF 3. a-fib 4. lower ext edema 5. COPD 6. active smoker 7. non compliance 8. slurred speech 9. JOSEPH Plan - volume status improving - renal function is improving - cont with lasix - will need outpt follow up - discussed compliance - ua neg for blood pr protein
== END 2019-07-16 14:53 | disposition home or self-care (01) | DRG 194 ==
LOC: JER 17:51 → JERBED 21:33 → J4S 07-14 06:48
PROVIDERS: ADMIT Internal Medicine; ATTEND Family Medicine
DX: I13.0 Hypertensive heart and chronic kidney disease with heart failure and stage 1 through stage 4 chronic kidney disease, or unspecified chronic kidney disease (principal); N18.9 Chronic kidney disease, unspecified; I50.33 Acute on chronic diastolic (congestive) heart failure; E11.22 Type 2 diabetes mellitus with diabetic chronic kidney disease; I48.91 Unspecified atrial fibrillation; J84.10 Pulmonary fibrosis, unspecified; G47.30 Sleep apnea, unspecified; E03.9 Hypothyroidism, unspecified; E78.00 Pure hypercholesterolemia, unspecified; R41.82 Altered mental status, unspecified; D64.9 Anemia, unspecified; E11.40 Type 2 diabetes mellitus with diabetic neuropathy, unspecified; F41.8 Other specified anxiety disorders; J45.909 Unspecified asthma, uncomplicated; N17.9 Acute kidney failure, unspecified; G89.29 Other chronic pain; R26.9 Unspecified abnormalities of gait and mobility; R47.1 Dysarthria and anarthria; G45.9 Transient cerebral ischemic attack, unspecified; R47.81 Slurred speech; B37.41 Candidal cystitis and urethritis; M17.0 Bilateral primary osteoarthritis of knee; M54.41 Lumbago with sciatica, right side; Z99.81 Dependence on supplemental oxygen; Z86.711 Personal history of pulmonary embolism; Z88.0 Allergy status to penicillin; Z91.14 Patient's other noncompliance with medication regimen
CPT/HCPCS: 36415; 70450-TC; 70551-TC; 71045-TC-FY; 80048; 80053; 81003; 82962; 83036; 83880; 85025; 85027; 85610; 85730; 87086; 93005; 93010; 93880-TC; 97116-GP; 97161-GP; 99283-25

== ENCOUNTER 2019-09-24 16:08 | Inpatient (IN) | payer OTHER ==
[2019-09-24] MEDS ORDERED: methylPREDNISolone NA SUCC 125 MG/2 ML VIAL ONE (16:24)
[2019-09-24] MEDS ORDERED: ALBUTEROL SO4 2.5/IPRATROPIUM 0.5 INH SOL 3 ML VIAL.NEB. NEB ONE ×5 (16:24→20:19)
[2019-09-24] MEDS ORDERED: methylPREDNISolone NA SUCC 125 MG/2 ML VIAL IVPB ONE (16:26)
--- NOTE | 2019-09-24 16:55 | PDOC ---
History of Present Illness - General Chief Complaint: Respiratory Distress Stated Complaint: COPD/ASTHMA Time Seen by Provider: 09/24/19 16:53 - History of Present Illness Initial Comments: 09/24/19 16:53 Ms. Soto is a 59 yo female w/ pmh of afib (on eliquis), CHF, HTN, asthma ( intubated in the past), prior PE, pulmonary fibrosis, sleep apnea, renal insufficiency, OA, DM, COPD JOSH for evaluation of 1 day history of worsening shortness of breath. Patient reports she was asymptomatic when she woke up this morning however had worsening shortness of breath throughout the day. EMS reports apartment was thick with smoke when they arrived. Of note, patient recently admitted for CHF exacerbation 2 months ago. The patient denies chest pain, headache and dizziness. Denies fever, chills, nausea, vomit, diarrhea and constipation. Denies dysuria, frequency, urgency and hematuria. Past History - Past Medical History Allergies/Adverse Reactions: Allergies Allergy/AdvReac Type Severity Reaction Status Date / Time morphine Allergy Severe Verified 07/13/19 18:42 Penicillins Allergy Severe Hives Verified 07/13/19 18:42 tomato [Tomato] Allergy Unknown Verified 07/13/19 18:42 chocolate AdvReac Unknown Uncoded 07/13/19 18:42 Home Medications: Ambulatory Orders Albuterol Sulfate Inhaler - [Ventolin HFA Inhaler -] 1 inh IH QID PRN 05/21/18 Budesonide/Formeterol Fumarate [SYMBICORT 80/4.5mcg -] 2 puff IH BID #1 inhaler 12/28/18 Bupropion HCl [Wellbutrin Xl -] 150 mg PO DAILY tab.sr.24h 12/28/18 Cholecalciferol (Vitamin D3) [Vitamin D -] 50,000 unit PO WEEKLY 01/22/19 Linagliptin [Tradjenta] 5 mg PO DAILY 01/22/19 Acetaminophen [Tylenol .Regular Strength -] 650 mg PO Q6H PRN tablet 02/10/19 Apixaban [Eliquis -] 2.5 mg PO BID #60 tablet 04/30/19 Lidocaine 5% Patch [Lidoderm -] 1 patch TP DAILY #30 patch 04/30/19 Gabapentin [Neurontin -] 300 mg PO TID #60 capsule 06/28/19 Verapamil HCl ER [Calan Sr -] 120 mg PO DAILY #30 tablet.er 06/28/19 hydrALAZINE HCL [Apresoline -] 50 mg PO TID #90 tablet MDD 3 06/28/19 Diclofenac Sodium [Diclo Gel] 1 each TP ASDIR 07/13/19 Digoxin [Lanoxin -] 0.125 mg PO DAILY 07/13/19 Furosemide [Lasix] 40 mg PO DAILY 07/13/19 Oxycodone HCl/Acetaminophen [Endocet 10-325 mg Tablet] 1 each PO QID PRN Anemia: No Asthma: Yes Cancer: No Cardiac Disorders: Yes (A-fib) CVA: No COPD: Yes CHF: Yes Dementia: No Diabetes: Yes GI Disorders: No Disorders: Yes HTN: Yes Hypercholesterolemia: Yes Liver Disease: No Seizures: No Thyroid Disease: Yes (Hypothyroid) - Surgical History Abdominal Surgery: No Appendectomy: No Cardiac Surgery: No Cholecystectomy: No Lung Surgery: No Neurologic Surgery: No Orthopedic Surgery: Yes ((L) ARM SX) - Immunization History Td Vaccination: Yes TDAP Vaccination: Yes Immunization Up to Date: Yes - Psycho Social/Smoking Cessation Hx Smoking Status: Yes Smoking History: Current every day smoker Years of Tobacco Use: 30 Have you smoked in the past 12 months: No Number of Cigarettes Smoked Daily: 2 Cigars Per Day: 0 'Breaking Loose' booklet given: 03/27/18 Hx Alcohol Use: No Drug/Substance Use Hx: No Substance Use Type: None Hx Substance Use Treatment: No Review of Systems - Review of Systems Comments:: 09/24/19 16:54 Unable to obtain further due to patient status *Physical Exam - Physical Exam 09/24/19 16:54 GENERAL: +Patient has obviously increased work of breathing. Awake, alert, and fully oriented HEAD: No signs of trauma, normocephalic, atraumatic EYES: PERRLA, EOMI, sclera anicteric, conjunctiva clear ENT: Auricles normal inspection, hearing grossly normal, nares patent, oropharynx clear without exudates. Moist mucosa NECK: Normal ROM, supple, no lymphadenopathy, JVD, or masses LUNGS: +Diffuse wheezes appreciated throughout lung galan. HEART: Regular rate and rhythm, normal S1 and S2, no murmurs, rubs or gallops, peripheral pulses normal and equal bilaterally. ABDOMEN: Soft, nontender, normoactive bowel sounds. No guarding, no rebound. No masses EXTREMITIES: Normal inspection, Normal range of motion, no edema. No clubbing or cyanosis. NEUROLOGICAL: Cranial nerves II through XII grossly intact. Normal speech, normal gait, no focal sensorimotor deficits SKIN: Warm, Dry, normal turgor, no rashes or lesions noted. ED Treatment Course - LABORATORY CBC & Chemistry Diagram: 09/25/19 05:55 09/25/19 05:55 - Medications Given in the ED: ED Medications Discontinued Medications Generic Name Dose Route Start Last Admin Trade Name Freq PRN Reason Stop Dose Admin Albuterol/Ipratropium 3 amp 09/24/19 16:26 09/24/19 16:40 Duoneb - NEB 09/24/19 16:27 3 amp ONCE ONE Administration Methylprednisolone Sodium Succinate 125 mg 09/24/19 16:26 09/24/19 16:40 Solu-Medrol - IVPB 09/24/19 16:27 125 mg ONCE ONE Administration Medical Decision Making - Medical Decision Making 09/24/19 18:45 Ms. Soto is a 59 yo female w/ pmh as described who presents for evaluation of difficulty breathing concerning for COPD/asthma exacerbation vs. CHF vs. other acute pulmonary/cardiac process. Patient markedly improved on bipap and labs/CXR ordered for evaluation of etiology. Patient giv en 500 mL fluids for suspected pre-renal picture noted as below. Initial ABG concerning for pH 7.28 and elevated CO2. 2nd ABG pending. 09/24/19 19:07 2nd ABG not improved. Patient given diltiazem for HR control. Patient currently pending bedside cardiac US. ABX started for presumptive pneumonia. Patient will be admitted to hospitalist team following stabilization. Patient signed out to Dr. Alford for further evaluation. Laboratory Results - last 24 hr 09/24/19 09/24/19 09/24/19 16:30 16:30 16:30 WBC 12.1 H RBC 4.52 Hgb 13.4 Hct 42.2 D MCV 93.3 MCH 29.6 MCHC 31.7 L RDW 15.8 H D Plt Count 119 L MPV 11.0 Absolute Neuts (auto) 10.0 H Neutrophils % 82.9 H D Lymphocytes % 6.9 L D Monocytes % 9.8 Eosinophils % 0.0 D Basophils % 0.4 Nucleated RBC % 0 PT with INR INR Anticoagulation Therapy Puncture Site ABG pH ABG pCO2 at Pt Temp ABG pO2 at Pt Temp ABG HCO3 ABG O2 Sat (Measured) ABG O2 Content ABG Base Excess Randy Test Carboxyhemoglobin Methemoglobin O2 Delivery Device Oxygen Flow Rate Vent Mode Vent Rate Mechanical Rate Pressure Support Vent Sodium 136 Potassium 3.8 Chloride 96 L Carbon Dioxide 32 Anion Gap 7 L BUN 42.6 H Creatinine 2.2 H Est GFR (CKD-EPI)AfAm 27.14 Est GFR (CKD-EPI)NonAf 23.42 Random Glucose 122 H Lactic Acid Calcium 9.1 Total Bilirubin 0.6 AST 32 ALT 44 Alkaline Phosphatase 132 H Creatine Kinase 48 Troponin I 0.03 Total Protein 8.7 H Albumin 4.5 09/24/19 09/24/19 09/24/19 16:30 16:30 16:50 WBC RBC Hgb Hct MCV MCH MCHC RDW Plt Count MPV Absolute Neuts (auto) Neutrophils % Lymphocytes % Monocytes % Eosinophils % Basophils % Nucleated RBC % PT with INR 13.70 H INR 1.16 H Anticoagulation Therapy No Result Required. Puncture Site Right radial ABG pH 7.28 L ABG pCO2 at Pt Temp 70.2 H* ABG pO2 at Pt Temp 97.8 ABG HCO3 31.9 H ABG O2 Sat (Measured) 96.8 ABG O2 Content 16.6 ABG Base Excess 3.6 H Randy Test Positive Carboxyhemoglobin 3.3 H Methemoglobin 1.1 O2 Delivery Device No Result Required. Oxygen Flow Rate No Result Required. Vent Mode No Result Required. Vent Rate No Result Required. Mechanical Rate No Result Required. Pressure Support Vent No Result Required. Sodium Potassium Chloride Carbon Dioxide Anion Gap BUN Creatinine Est GFR (CKD-EPI)AfAm Est GFR (CKD-EPI)NonAf Random Glucose Lactic Acid 1.3 Calcium Total Bilirubin AST ALT Alkaline Phosphatase Creatine Kinase Troponin I Total Protein Albumin 09/24/19 18:21 WBC RBC Hgb Hct MCV MCH MCHC RDW Plt Count MPV Absolute Neuts (auto) Neutrophils % Lymphocytes % Monocytes % Eosinophils % Basophils % Nucleated RBC % PT with INR INR Anticoagulation Therapy No Result Required. Puncture Site Right radial ABG pH 7.26 L ABG pCO2 at Pt Temp 76.4 H* ABG pO2 at Pt Temp 54.7 L ABG HCO3 32.8 H ABG O2 Sat (Measured) 84.1 L ABG O2 Content 13.7 ABG Base Excess 3.9 H Randy Test Positive Carboxyhemoglobin 3.0 H Methemoglobin < 1.0 O2 Delivery Device No Result Required. Oxygen Flow Rate No Result Required. Vent Mode No Result Required. Vent Rate No Result Required. Mechanical Rate No Result Required. Pressure Support Vent No Result Required. Sodium Potassium Chloride Carbon Dioxide Anion Gap BUN Creatinine Est GFR (CKD-EPI)AfAm Est GFR (CKD-EPI)NonAf Random Glucose Lactic Acid Calcium Total Bilirubin AST ALT Alkaline Phosphatase Creatine Kinase Troponin I Total Protein Albumin Discharge - Discharge Information Problems reviewed: Yes Clinical Impression/Diagnosis: Acute exacerbation of COPD with asthma Pneumonia Qualifiers: Pneumonia type: due to unspecified organism Laterality: unspecified laterality Lung location: unspecified part of lung Qualified Code(s): J18.9 - Pneumonia, unspecified organism Condition: Guarded - Admission Yes - Follow up/Referral - Patient Discharge Instructions - Post Discharge Activity
[2019-09-24 17:04] LABS: ARTERIAL BLOOD GAS PO2 97.8 mmHg (80-100); ARTERIAL BLOOD GAS pH 7.28 (7.35-7.45)
[2019-09-24 17:05] LABS: ALLENS TEST POSITIVE; ARTERIAL BLD GAS O2 SATURATION 96.8 % (95-98); ARTERIAL BLOOD GAS BASE EXCESS 3.6 meq/l (-2-2); CARBOXYHEMOGLOBIN 3.3 % (0-2)
[2019-09-24 17:09] LABS: ARTERIAL BLOOD GAS PCO2 70.2 mmHg (35-45)
[2019-09-24 17:22] LABS: BASO % 0.4 % (0-2.0); HEMATOCRIT 42.2 % (32.4-45.2); HEMOGLOBIN 13.4 GM/dL (10.7-15.3); LYMPH % 6.9 % (8-40); MCH 29.6 pg (25.7-33.7); MCHC 31.7 g/dl (32.0-36.0); MEAN CELL VOLUME 93.3 fl (80-96); MONO % 9.8 % (3.8-10.2); NEUT % 82.9 % (42.8-82.8); PLATELET COUNT 119 K/MM3 (134-434); RBC 4.52 M/mm3 (3.60-5.2); RDW 15.8 % (11.6-15.6); WHITE BLOOD COUNT 12.1 K/mm3 (4.0-10.0)
[2019-09-24 17:35] LABS: INR 1.16 (0.83-1.09); PROTHROMBIN TIME (PATIENT) 13.7 SEC (9.7-13.0)
[2019-09-24 17:48] LABS: ALBUMIN 4.5 g/dl (3.4-5.0); BILIRUBIN,TOTAL 0.6 mg/dL (0.2-1); BLOOD UREA NITROGEN 42.6 mg/dL (7-18); CALCIUM 9.1 mg/dL (8.5-10.1); CREATININE 2.2 mg/dL (0.55-1.3); POTASSIUM 3.8 mmol/L (3.5-5.1); TOT PROT 8.7 g/dl (6.4-8.2)
[2019-09-24] MEDS ORDERED: SODIUM CHLORIDE 500 ML IV STA (17:53)
[2019-09-24] MEDS ORDERED: ACETAMINOPHEN 1000 MG/100 ML VIAL (NON FORMULARY) IVPB ONE (18:40)
[2019-09-24] MEDS ORDERED: ACETAMINOPHEN INJECTION 100 ML IVPB ONE (18:43)
[2019-09-24 18:48] LABS: ARTERIAL BLD GAS O2 SATURATION 84.1 % (95-98); ARTERIAL BLOOD GAS BASE EXCESS 3.9 meq/l (-2-2); ARTERIAL BLOOD GAS PO2 54.7 mmHg (80-100); ARTERIAL BLOOD GAS pH 7.26 (7.35-7.45)
[2019-09-24 18:49] LABS: ALLENS TEST POSITIVE
[2019-09-24 18:51] LABS: ARTERIAL BLOOD GAS PCO2 76.4 mmHg (35-45)
[2019-09-24] MEDS ORDERED: dilTIAZem HCL 50 MG/10 ML - 10 ML VIAL IVPUSH ONE (18:53)
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
[2019-09-24] MEDS ORDERED: VANCOMYCIN 1 GM in D5W (PRE-DOCKED) 1,000 MG/250 ML IVPB ONE (19:01)
[2019-09-24] MEDS ORDERED: AZTREONAM 1 GM in DEXTROSE 5%-WATER - 50 ML IVPB ONE (19:03)
[2019-09-24] MEDS ORDERED: SODIUM CHLORIDE 0.9% 1000 ML INFUS.BAG IV ONE (19:37)
[2019-09-24] MEDS ORDERED: MAGNESIUM SULF 50% (8.12 MEQ/2 ML-1 GM VIAL) IVPB ONE (19:57)
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
[2019-09-24] MEDS ORDERED: AZTREONAM 1 GM VIAL (RESTRICTED TO ID) ONE (20:08)
[2019-09-24] MEDS ORDERED: dilTIAZem HCL 125 MG/25 ML - 25 ML VIAL ONE (20:08)
[2019-09-24] MEDS ORDERED: VANCOMYCIN 1 GRAM (PRE-DOCKED) 1,000 MG/250 ML BAG IVPB ONE (20:08)
[2019-09-24] MEDS ORDERED: MAGNESIUM 1GM/D5W - 2 GM/200 ML IVPB IVPB ONE (20:09)
[2019-09-24 21:16] LABS: ARTERIAL BLOOD GAS PO2 90.5 mmHg (80-100); ARTERIAL BLOOD GAS pH 7.28 (7.35-7.45)
[2019-09-24 21:17] LABS: ARTERIAL BLD GAS O2 SATURATION 96.2 % (95-98); ARTERIAL BLOOD GAS BASE EXCESS 2.2 meq/l (-2-2)
[2019-09-24 21:29] LABS: URINE APPEARANCE CLEAR; URINE BILIRUBIN NEGATIVE (NEGATIVE); URINE COLOR YELLOW; URINE GLUCOSE (UA) NEGATIVE (NEGATIVE); URINE KETONE NEGATIVE (NEGATIVE); URINE LEUK ESTERASE NEGATIVE (NEGATIVE); URINE NITRITE NEGATIVE (NEGATIVE); URINE PROTEIN TRACE (NEGATIVE); URINE UROBILINOGEN 0.2 mg/dL (0.2-1.0)
[2019-09-24] MEDS ORDERED: RAPID SEQUENCE INTUBATION KIT NR ONE ×2 (21:49→22:00)
[2019-09-24] MEDS ORDERED: ETOMIDATE 40 MG/20 ML VIAL IVPUSH ONE (22:20)
[2019-09-24] MEDS ORDERED: DEXMEDETOMIDINE HCL 200 MCG/2 ML IVPB ONE (22:20)
[2019-09-24] MEDS ORDERED: MIDAZOLAM HCL 2 MG/2 ML SINGLE DOSE VIAL ONE ×3 (22:22→23:31)
[2019-09-24] MEDS ORDERED: MIDAZOLAM HCL 2 MG/2 ML SINGLE DOSE VIAL IVPUSH ONE ×3 (22:35→23:10)
[2019-09-24] MEDS ORDERED: SUCCINYLCHOLINE CHLORIDE 200 MG/10 ML VIAL IVPUSH ONE (22:35)
[2019-09-24] MEDS ORDERED: DEXMEDETOMIDINE HCL IVPB SCH (22:45)
[2019-09-24] MEDS ORDERED: SODIUM CHLORIDE IVPB SCH (22:45)
[2019-09-24] MEDS ORDERED: OSELTAMIVIR PHOSPHATE 6 MG/1 ML PO ONE (22:48)
[2019-09-24] MEDS ORDERED: OSELTAMIVIR PHOSPHATE 75 MG CAPSULE ONE (22:59)
[2019-09-24] MEDS ORDERED: ALBUTEROL SO4 2.5/IPRATROPIUM 0.5 INH SOL 3 ML VIAL.NEB. NEB PRN (23:08)
--- NOTE | 2019-09-24 23:12 | CONSULT ---
Consultation: REQUESTING PROVIDER: Dr. Mcintosh CONSULT REQUEST: We have been asked to medically evaluate this patient for ICU management due to respiratory failure. HISTORY OF PRESENT ILLNESS: 59 F PMH of afib (eliquis), CHF, HTN, asthma (intubation in past), prior PE, pulmonary fibrosis, sleep apnea, renal insufficiency, OA, DM, COPD, for evaluation of 1 day hx of worsening shortness of breath. As per chart review patient was asymptomatic when she woke up in the morning, but had worsening SOB. When examining the patient in the ED, she did not respond to any questioning. Patient was given aztreonam in the Emergency department, as she was suspected to have health care associated pneumonia. Chest x-ray showed questionable left upper lobe infiltrate. Patient was placed on BiPaP and found to have improving blood gases, however mental status was deteriorating so patient was intubated in emergency department. REVIEW OF SYSTEMS: Patient was not alert enough to respond to 10 point ROS. CONSTITUTIONAL: Absent: fever, chills, diaphoresis, generalized weakness, malaise, loss of appetite, weight change HEENT: Absent: rhinorrhea, nasal congestion, throat pain, throat swelling, difficulty swallowing, mouth swelling, ear pain, eye pain, visual changes CARDIOVASCULAR: Absent: chest pain, syncope, palpitations, irregular heart rate, lightheadedness, peripheral edema RESPIRATORY: Absent: cough, shortness of breath, dyspnea with exertion, orthopnea, wheezing, stridor, hemoptysis GASTROINTESTINAL: Absent: abdominal pain, abdominal distension, nausea, vomiting, diarrhea, constipation, melena, hematochezia GENITOURINARY: Absent: dysuria, frequency, urgency, hesitancy, hematuria, flank pain, genital pain MUSCULOSKELETAL: Absent: myalgia, arthralgia, joint swelling, back pain, neck pain SKIN: Absent: rash, itching, pallor HEMATOLOGIC/IMMUNOLOGIC: Absent: easy bleeding, easy bruising, lymphadenopathy, frequent infections ENDOCRINE: Absent: unexplained weight gain, unexplained weight loss, heat intolerance, cold intolerance NEUROLOGIC: Absent: headache, focal weakness or paresthesias, dizziness, unsteady gait, seizure, mental status changes, bladder or bowel incontinence PSYCHIATRIC: Absent: anxiety, depression, suicidal or homicidal ideation, hallucinations. PHYSICAL EXAMINATION Vital Signs - 24 hr 09/24/19 09/24/19 09/24/19 16:10 16:11 16:20 Temperature 99.6 F Pulse Rate 162 H 162 H Pulse Rate [ Apical] Respiratory 30 H Rate Blood Pressure 190/127 H Blood Pressure [Right Arm] O2 Sat by Pulse 100 100 100 Oximetry (%) 09/24/19 09/24/19 09/24/19 16:25 16:30 16:40 Temperature Pulse Rate 156 H Pulse Rate [ 160 H 155 H Apical] Respiratory 28 H 22 H Rate Blood Pressure Blood Pressure 190/127 H 188/112 H [Right Arm] O2 Sat by Pulse 100 100 100 Oximetry (%) 09/24/19 09/24/19 09/24/19 16:50 17:00 17:15 Temperature Pulse Rate Pulse Rate [ 136 H 157 H 142 H Apical] Respiratory 24 H 16 18 Rate Blood Pressure Blood Pressure 173/117 H 142/103 H 144/100 [Right Arm] O2 Sat by Pulse 100 100 Oximetry (%) 09/24/19 09/24/19 09/24/19 17:30 17:45 18:00 Temperature Pulse Rate Pulse Rate [ 146 H 148 H 122 H Apical] Respiratory 16 16 16 Rate Blood Pressure Blood Pressure 152/99 127/94 140/83 [Right Arm] O2 Sat by Pulse 97 96 96 Oximetry (%) 09/24/19 09/24/19 09/24/19 18:30 20:52 22:52 Temperature 99.7 F H Pulse Rate 120 H Pulse Rate [ 130 H Apical] Respiratory 16 14 Rate Blood Pressure Blood Pressure 130/86 [Right Arm] O2 Sat by Pulse 98 100 Oximetry (%) GENERAL: Arousable, alert oriented to person, place and time. However on reassessment 1 hour later, patient was not respond to orientation questions. . HEAD: Normal with no signs of trauma. BiPap in place. NECK: Normal range of motion, supple without lymphadenopathy, JVD, or masses. LUNGS: Crackles b/l. Poor air entry in b/l lungs. HEART: irregular rate and rhythm, no murmur, rub or gallop appreciated. ABDOMEN: Soft, nontender, not distended, normoactive bowel sounds, no guarding, no rebound, no masses. MUSCULOSKELETAL: Normal range of motion at all joints. No bony deformities or tenderness. No CVA tenderness. UPPER EXTREMITIES: 2+ pulses, warm, well-perfused. No cyanosis. No clubbing. Cap refill <2 seconds. No peripheral edema. LOWER EXTREMITIES: 2+ pulses, warm, well-perfused. No calf tenderness. 2+ pitting edema. . NEUROLOGICAL: Not responsive to command. SKIN: Warm, dry, normal turgor, no rashes or lesions noted. Laboratory Results - last 24 hr 09/24/19 09/24/19 09/24/19 16:30 16:30 16:30 WBC 12.1 H RBC 4.52 Hgb 13.4 Hct 42.2 D MCV 93.3 MCH 29.6 MCHC 31.7 L RDW 15.8 H D Plt Count 119 L MPV 11.0 Absolute Neuts (auto) 10.0 H Neutrophils % 82.9 H D Lymphocytes % 6.9 L D Monocytes % 9.8 Eosinophils % 0.0 D Basophils % 0.4 Nucleated RBC % 0 PT with INR INR Anticoagulation Therapy Puncture Site ABG pH ABG pCO2 at Pt Temp ABG pO2 at Pt Temp ABG HCO3 ABG O2 Sat (Measured) ABG O2 Content ABG Base Excess Randy Test Carboxyhemoglobin Methemoglobin O2 Delivery Device Oxygen Flow Rate Vent Mode Vent Rate Mechanical Rate Pressure Support Vent Sodium 136 Potassium 3.8 Chloride 96 L Carbon Dioxide 32 Anion Gap 7 L BUN 42.6 H Creatinine 2.2 H Est GFR (CKD-EPI)AfAm 27.14 Est GFR (CKD-EPI)NonAf 23.42 Random Glucose 122 H Lactic Acid Calcium 9.1 Total Bilirubin 0.6 AST 32 ALT 44 Alkaline Phosphatase 132 H Creatine Kinase 48 Troponin I 0.03 Total Protein 8.7 H Albumin 4.5 Urine Color Urine Appearance Urine pH Ur Specific [place] Urine Protein Urine Glucose (UA) Urine Ketones Urine Blood Urine Nitrite Urine Bilirubin Urine Urobilinogen Ur Leukocyte Esterase Influenza A (Rapid) Influenza B (Rapid) 09/24/19 09/24/19 09/24/19 16:30 16:30 16:50 WBC RBC Hgb Hct MCV MCH MCHC RDW Plt Count MPV Absolute Neuts (auto) Neutrophils % Lymphocytes % Monocytes % Eosinophils % Basophils % Nucleated RBC % PT with INR 13.70 H INR 1.16 H Anticoagulation Therapy No Result Required. Puncture Site Right radial ABG pH 7.28 L ABG pCO2 at Pt Temp 70.2 H* ABG pO2 at Pt Temp 97.8 ABG HCO3 31.9 H ABG O2 Sat (Measured) 96.8 ABG O2 Content 16.6 ABG Base Excess 3.6 H Randy Test Positive Carboxyhemoglobin 3.3 H Methemoglobin 1.1 O2 Delivery Device No Result Required. Oxygen Flow Rate No Result Required. Vent Mode No Result Required. Vent Rate No Result Required. Mechanical Rate No Result Required. Pressure Support Vent No Result Required. Sodium Potassium Chloride Carbon Dioxide Anion Gap BUN Creatinine Est GFR (CKD-EPI)AfAm Est GFR (CKD-EPI)NonAf Random Glucose Lactic Acid 1.3 Calcium Total Bilirubin AST ALT Alkaline Phosphatase Creatine Kinase Troponin I Total Protein Albumin Urine Color Urine Appearance Urine pH Ur Specific [place] Urine Protein Urine Glucose (UA) Urine Ketones Urine Blood Urine Nitrite Urine Bilirubin Urine Urobilinogen Ur Leukocyte Esterase Influenza A (Rapid) Influenza B (Rapid) 09/24/19 09/24/19 09/24/19 18:21 20:15 20:15 WBC RBC Hgb Hct MCV MCH MCHC RDW Plt Count MPV Absolute Neuts (auto) Neutrophils % Lymphocytes % Monocytes % Eosinophils % Basophils % Nucleated RBC % PT with INR INR Anticoagulation Therapy No Result Required. Puncture Site Right radial ABG pH 7.26 L ABG pCO2 at Pt Temp 76.4 H* ABG pO2 at Pt Temp 54.7 L ABG HCO3 32.8 H ABG O2 Sat (Measured) 84.1 L ABG O2 Content 13.7 ABG Base Excess 3.9 H Randy Test Positive Carboxyhemoglobin 3.0 H Methemoglobin < 1.0 O2 Delivery Device No Result Required. Oxygen Flow Rate No Result Required. Vent Mode No Result Required. Vent Rate No Result Required. Mechanical Rate No Result Required. Pressure Support Vent No Result Required. Sodium Potassium Chloride Carbon Dioxide Anion Gap BUN Creatinine Est GFR (CKD-EPI)AfAm Est GFR (CKD-EPI)NonAf Random Glucose Lactic Acid Calcium Total Bilirubin AST ALT Alkaline Phosphatase Creatine Kinase Troponin I Total Protein Albumin Urine Color Yellow Urine Appearance Clear Urine pH 5.0 Ur Specific [place] 1.014 Urine Protein Trace Urine Glucose (UA) Negative Urine Ketones Negative Urine Blood Negative Urine Nitrite Negative Urine Bilirubin Negative Urine Urobilinogen 0.2 Ur Leukocyte Esterase Negative Influenza A (Rapid) Positive A Influenza B (Rapid) Negative 09/24/19 20:51 WBC RBC Hgb Hct MCV MCH MCHC RDW Plt Count MPV Absolute Neuts (auto) Neutrophils % Lymphocytes % Monocytes % Eosinophils % Basophils % Nucleated RBC % PT with INR INR Anticoagulation Therapy No Result Required. Puncture Site No Result Required. ABG pH 7.28 L ABG pCO2 at Pt Temp 65.0 H ABG pO2 at Pt Temp 90.5 ABG HCO3 29.8 H ABG O2 Sat (Measured) 96.2 ABG O2 Content 15.5 ABG Base Excess 2.2 H Randy Test No Result Required. Carboxyhemoglobin Methemoglobin O2 Delivery Device No Result Required. Oxygen Flow Rate No Result Required. Vent Mode No Result Required. Vent Rate No Result Required. Mechanical Rate No Result Required. Pressure Support Vent No Result Required. Sodium Potassium Chloride Carbon Dioxide Anion Gap BUN Creatinine Est GFR (CKD-EPI)AfAm Est GFR (CKD-EPI)NonAf Random Glucose Lactic Acid Calcium Total Bilirubin AST ALT Alkaline Phosphatase Creatine Kinase Troponin I Total Protein Albumin Urine Color Urine Appearance Urine pH Ur Specific [place] Urine Protein Urine Glucose (UA) Urine Ketones Urine Blood Urine Nitrite Urine Bilirubin Urine Urobilinogen Ur Leukocyte Esterase Influenza A (Rapid) Influenza B (Rapid) Active Medications Generic Name Dose Route Start Last Admin Trade Name Freq PRN Reason Stop Dose Admin Albuterol/Ipratropium 1 amp 09/25/19 08:00 Duoneb - NEB RQID JOLENE Albuterol/Ipratropium 1 amp 09/24/19 23:08 Duoneb - NEB Q4H PRN SHORTNESS OF BREATH Chlorhexidine Gluconate 1 applic 09/24/19 22:00 Hibiclens For Decolonization - TP HS [facility] Dexmedetomidine HCl 200 mcg/ 52 mls @ 3.6 mls/hr 09/24/19 22:45 Sodium Chloride IVPB TITR [facility] Protocol Mupirocin 1 applic 09/24/19 22:00 Bactroban Ointment (For Decolonization) - NS 09/29/19 21:59 BID [facility] ASSESSMENT/PLAN: 59 F PMH of afib (eliquis), CHF, HTN, CKD, asthma (intubation in past), prior PE, pulmonary fibrosis, sleep apnea, renal insufficiency, OA, DM, COPD, presenting with acute hypercarbic hypoxic respiratory failure requiring intubation. Neuro/Psych -Patient on Precedex and Propofol drip. Will d/c Propofol and continue precedex in morning -[place]ed[place] vacations Cardiovascular -Hx of CHF, afib, HTN -Digioxin levels -Restart lasix -Restart BP meds -Restart Eliquis Pulmonary -Hx of COPD -On Vent: Tidal Volume 450, RR 20, Fio2: 50%. -Repeat Chest X-Ray -Repeat ABG in AM -Albuterol nebulizer -Duonebs -Symbicort GI -Stable, continue to monitor -OG tube in place Renal -Hx of CKD -Creatinine of 2.2, elevated from previous admission -Replete K+ ID -Patient given aztreonam- patient was hospitalized in July and has penicillin allergy. WBC of 12.1. Tmax of 100. -Flu positive -ID consulted, appreciate recs -Tamiflu given through OG tube. -F/U cultures F: No standing fluids E: Monitor K+ N: NPO, OG tube in place DVT: SCDs, continue home Eliquis Lines: Intubated 09/25/19, [place] 09/25/19 Dispo: We will continue to follow the patient. Thank you for this consultative opportunity. Visit type - Emergency Visit Emergency Visit: Yes ED Registration Date: 09/24/19 Care time: The patient presented to the Emergency Department on the above date and was hospitalized for further evaluation of their emergent condition. - New Patient This patient is new to me today: Yes Date on this admission: 09/24/19 - Critical Care Critical Care patient: Yes Total Critical Care Time (in minutes): 45 Critical Care Statement: The care of this patient involved high complexity decision making to prevent further life threatening deterioration of the patient's condition and/or to evaluate & treat vital organ system(s) failure or risk of failure. ATTENDING PHYSICIAN STATEMENT I saw and evaluated the patient. I reviewed the resident's note and discussed the case with the resident. I agree with the resident's findings and plan as documented. SUBJECTIVE: OBJECTIVE: ASSESSMENT AND PLAN:
[2019-09-24] MEDS ORDERED: AZTREONAM 1 GM VIAL (RESTRICTED TO ID) IVPB SCH (23:15)
[2019-09-24] MEDS: MUPIROCIN 2% TOPICAL OINTMENT FOR DECOLONIZATION NS SCH (23:30)
[2019-09-24 23:42] LABS: N-TERMINAL BNP 16944.3 pg/ml (5-125)
--- NOTE | 2019-09-24 23:51 | HP ---
Admitting History and Physical - Admission History of Present Illness: This is a 59 y/o woman with a pmhx of Afib (on eliquis), CHF, HTN, Asthma ( intubated in the past), COPD, prior PE, DM, Pulmonary Fibrosis, Sleep Apnea, Renal Insufficiency, OA. Who presents to the ED for worsening shortness of breath x 1 day. Patient is Obtunded, unable to provide HPI. Per ED records: Patient reports she was asymptomatic when she woke up this morning however had worsening shortness of breath throughout the day. EMS reports apartment was thick with smoke when they arrived. Patient denies fever, chills, dizziness, FOX , CP, palpitations. AP, N/V/D, constipation, dysuria. ED course was noted for: (1) EKG- Afib with RVR 162 (2) ABG- 7.26/76.4/54.7/32.8/84 (3) WBC 12.1 (4) Chest Xray- cardiomegaly. 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: Other (Sciatica) Cardiovascular: Yes: AFIB, CHF, HTN Pulmonary: Yes: Asthma ((prior intubations)), COPD, O2 Dependent, Pulmonary Embolus (in the past), Pulmonary Fibrosis (history) Renal/: Yes: Renal Inusuff (CKD) Heme/Onc: Yes: Anemia Musculoskeletal: Yes: Osteoarthritis Endocrine: Yes: Diabetes Mellitus, Hypothyroidism - Past Surgical History Past Surgical History: Yes: - Smoking History Smoking history: Current every day smoker Have you smoked in the past 12 months: Yes Aproximately how many cigarettes per day: 2 - Alcohol/Substance Use Hx Alcohol Use: No History of Substance Use: reports: None - Social History Usual Living Arrangement: Yes: Alone ADL: Independent (with Rollator) History of Recent Travel: No Home Medications - Allergies Allergies/Adverse Reactions: Allergies Allergy/AdvReac Type Severity Reaction Status Date / Time morphine Allergy Severe Verified 07/13/19 18:42 Penicillins Allergy Severe Hives Verified 07/13/19 18:42 tomato [Tomato] Allergy Unknown Verified 07/13/19 18:42 chocolate AdvReac Unknown Uncoded 07/13/19 18:42 - Home Medications Home Medications: Ambulatory Orders Albuterol Sulfate Inhaler - [Ventolin HFA Inhaler -] 1 inh IH QID PRN 05/21/18 Budesonide/Formeterol Fumarate [SYMBICORT 80/4.5mcg -] 2 puff IH BID #1 inhaler 12/28/18 Bupropion HCl [Wellbutrin Xl -] 150 mg PO DAILY tab.sr.24h 12/28/18 Cholecalciferol (Vitamin D3) [Vitamin D -] 50,000 unit PO WEEKLY 01/22/19 Linagliptin [Tradjenta] 5 mg PO DAILY 01/22/19 Acetaminophen [Tylenol .Regular Strength -] 650 mg PO Q6H PRN tablet 02/10/19 Apixaban [Eliquis -] 2.5 mg PO BID #60 tablet 04/30/19 Lidocaine 5% Patch [Lidoderm -] 1 patch TP DAILY #30 patch 04/30/19 Gabapentin [Neurontin -] 300 mg PO TID #60 capsule 06/28/19 Verapamil HCl ER [Calan Sr -] 120 mg PO DAILY #30 tablet.er 06/28/19 hydrALAZINE HCL [Apresoline -] 50 mg PO TID #90 tablet MDD 3 06/28/19 Diclofenac Sodium [Diclo Gel] 1 each TP ASDIR 07/13/19 Digoxin [Lanoxin -] 0.125 mg PO DAILY 07/13/19 Furosemide [Lasix] 40 mg PO DAILY 07/13/19 Oxycodone HCl/Acetaminophen [Endocet 10-325 mg Tablet] 1 each PO QID PRN Family Medical History Family History: Unable to Obtain Review of Systems Unable to obtain ROS, reason: Clinical Condition Physical Examination Vital Signs: Vital Signs Temperature 99.7 F H 09/24/19 20:52 Pulse Rate 120 H 09/24/19 22:52 Respiratory Rate 14 09/24/19 22:52 Blood Pressure 130/86 09/24/19 18:30 O2 Sat by Pulse Oximetry (%) 100 09/24/19 22:52 Constitutional: Yes: Other (Obtunded) Eyes: Yes: Conjunctiva Clear, PERRL HENT: Yes: Atraumatic, Normocephalic, Other (dry mucous membranes) Neck: Yes: WNL, Supple, Trachea Midline Cardiovascular: Yes: Tachycardia, Pulse Irregular, S1, S2 Respiratory: Yes: Diminished, On BiPap, Rhonchi Gastrointestinal: Yes: Normal Bowel Sounds, Soft, Abdomen, Obese ...Rectal Exam: Yes: Deferred Renal/: Yes: Incontinence Breast(s): Yes: WNL Musculoskeletal: Yes: WNL Extremities: Yes: WNL Edema: Yes Edema: LLE: 1+, RLE: 1+ Peripheral Pulses WNL: Yes Neurological: Yes: Unresponsive Labs: CBC, BMP 09/24/19 16:30 09/24/19 16:30 Laboratory Results - last 24 hr 09/24/19 09/24/19 09/24/19 16:30 16:30 16:30 WBC 12.1 H RBC 4.52 Hgb 13.4 Hct 42.2 D MCV 93.3 MCH 29.6 MCHC 31.7 L RDW 15.8 H D Plt Count 119 L MPV 11.0 Absolute Neuts (auto) 10.0 H Neutrophils % 82.9 H D Lymphocytes % 6.9 L D Monocytes % 9.8 Eosinophils % 0.0 D Basophils % 0.4 Nucleated RBC % 0 PT with INR INR Anticoagulation Therapy Puncture Site ABG pH ABG pCO2 at Pt Temp ABG pO2 at Pt Temp ABG HCO3 ABG O2 Sat (Measured) ABG O2 Content ABG Base Excess Randy Test Carboxyhemoglobin Methemoglobin O2 Delivery Device Oxygen Flow Rate Vent Mode Vent Rate Mechanical Rate PEEP Pressure Support Vent Sodium 136 Potassium 3.8 Chloride 96 L Carbon Dioxide 32 Anion Gap 7 L BUN 42.6 H Creatinine 2.2 H Est GFR (CKD-EPI)AfAm 27.14 Est GFR (CKD-EPI)NonAf 23.42 Random Glucose 122 H Lactic Acid Calcium 9.1 Total Bilirubin 0.6 AST 32 ALT 44 Alkaline Phosphatase 132 H Creatine Kinase 48 Troponin I 0.03 B-Natriuretic Peptide 51397.3 H Total Protein 8.7 H Albumin 4.5 Urine Color Urine Appearance Urine pH Ur Specific [place] Urine Protein Urine Glucose (UA) Urine Ketones Urine Blood Urine Nitrite Urine Bilirubin Urine Urobilinogen Ur Leukocyte Esterase Influenza A (Rapid) Influenza B (Rapid) 09/24/19 09/24/19 09/24/19 16:30 16:30 16:50 WBC RBC Hgb Hct MCV MCH MCHC RDW Plt Count MPV Absolute Neuts (auto) Neutrophils % Lymphocytes % Monocytes % Eosinophils % Basophils % Nucleated RBC % PT with INR 13.70 H INR 1.16 H Anticoagulation Therapy No Result Required. Puncture Site Right radial ABG pH 7.28 L ABG pCO2 at Pt Temp 70.2 H* ABG pO2 at Pt Temp 97.8 ABG HCO3 31.9 H ABG O2 Sat (Measured) 96.8 ABG O2 Content 16.6 ABG Base Excess 3.6 H Randy Test Positive Carboxyhemoglobin 3.3 H Methemoglobin 1.1 O2 Delivery Device No Result Required. Oxygen Flow Rate No Result Required. Vent Mode No Result Required. Vent Rate No Result Required. Mechanical Rate No Result Required. PEEP Pressure Support Vent No Result Required. Sodium Potassium Chloride Carbon Dioxide Anion Gap BUN Creatinine Est GFR (CKD-EPI)AfAm Est GFR (CKD-EPI)NonAf Random Glucose Lactic Acid 1.3 Calcium Total Bilirubin AST ALT Alkaline Phosphatase Creatine Kinase Troponin I B-Natriuretic Peptide Total Protein Albumin Urine Color Urine Appearance Urine pH Ur Specific [place] Urine Protein Urine Glucose (UA) Urine Ketones Urine Blood Urine Nitrite Urine Bilirubin Urine Urobilinogen Ur Leukocyte Esterase Influenza A (Rapid) Influenza B (Rapid) 09/24/19 09/24/19 09/24/19 18:21 20:15 20:15 WBC RBC Hgb Hct MCV MCH MCHC RDW Plt Count MPV Absolute Neuts (auto) Neutrophils % Lymphocytes % Monocytes % Eosinophils % Basophils % Nucleated RBC % PT with INR INR Anticoagulation Therapy No Result Required. Puncture Site Right radial ABG pH 7.26 L ABG pCO2 at Pt Temp 76.4 H* ABG pO2 at Pt Temp 54.7 L ABG HCO3 32.8 H ABG O2 Sat (Measured) 84.1 L ABG O2 Content 13.7 ABG Base Excess 3.9 H Randy Test Positive Carboxyhemoglobin 3.0 H Methemoglobin < 1.0 O2 Delivery Device No Result Required. Oxygen Flow Rate No Result Required. Vent Mode No Result Required. Vent Rate No Result Required. Mechanical Rate No Result Required. PEEP Pressure Support Vent No Result Required. Sodium Potassium Chloride Carbon Dioxide Anion Gap BUN Creatinine Est GFR (CKD-EPI)AfAm Est GFR (CKD-EPI)NonAf Random Glucose Lactic Acid Calcium Total Bilirubin AST ALT Alkaline Phosphatase Creatine Kinase Troponin I B-Natriuretic Peptide Total Protein Albumin Urine Color Yellow Urine Appearance Clear Urine pH 5.0 Ur Specific [place] 1.014 Urine Protein Trace Urine Glucose (UA) Negative Urine Ketones Negative Urine Blood Negative Urine Nitrite Negative Urine Bilirubin Negative Urine Urobilinogen 0.2 Ur Leukocyte Esterase Negative Influenza A (Rapid) Positive A Influenza B (Rapid) Negative 09/24/19 09/25/19 20:51 00:09 WBC RBC Hgb Hct MCV MCH MCHC RDW Plt Count MPV Absolute Neuts (auto) Neutrophils % Lymphocytes % Monocytes % Eosinophils % Basophils % Nucleated RBC % PT with INR INR Anticoagulation Therapy No Result Required. No Result Required. Puncture Site No Result Required. Right radial ABG pH 7.28 L 7.23 L ABG pCO2 at Pt Temp 65.0 H 71.8 H* ABG pO2 at Pt Temp 90.5 122 H ABG HCO3 29.8 H 29.2 H ABG O2 Sat (Measured) 96.2 98.0 ABG O2 Content 15.5 15.4 ABG Base Excess 2.2 H 0.7 Randy Test No Result Required. Positive Carboxyhemoglobin Methemoglobin O2 Delivery Device No Result Required. Vent Oxygen Flow Rate No Result Required. 50% Vent Mode No Result Required. No Result Required. Vent Rate No Result Required. 14 Mechanical Rate No Result Required. No Result Required. PEEP 5.0 Pressure Support Vent No Result Required. 500 Sodium Potassium Chloride Carbon Dioxide Anion Gap BUN Creatinine Est GFR (CKD-EPI)AfAm Est GFR (CKD-EPI)NonAf Random Glucose Lactic Acid Calcium Total Bilirubin AST ALT Alkaline Phosphatase Creatine Kinase Troponin I B-Natriuretic Peptide Total Protein Albumin Urine Color Urine Appearance Urine pH Ur Specific [place] Urine Protein Urine Glucose (UA) Urine Ketones Urine Blood Urine Nitrite Urine Bilirubin Urine Urobilinogen Ur Leukocyte Esterase Influenza A (Rapid) Influenza B (Rapid) Intake & Output 09/22/19 09/23/19 09/24/19 09/25/19 23:59 23:59 23:59 23:59 Intake Total 150 Output Total 100 Balance 50 Weight 72.575 kg 69.264 kg Imaging - Results Chest X-ray: Report Reviewed, Image Reviewed EKG: Image Reviewed Problem List - Problems (1) Chronic respiratory failure with hypoxia and hypercapnia Code(s): J96.11 - CHRONIC RESPIRATORY FAILURE WITH HYPOXIA; J96.12 - CHRONIC RESPIRATORY FAILURE WITH HYPERCAPNIA (2) Pneumonia Code(s): J18.9 - PNEUMONIA, UNSPECIFIED ORGANISM Qualifiers: Pneumonia type: due to unspecified organism Laterality: unspecified laterality Lung location: unspecified part of lung Qualified Code(s): J18.9 - Pneumonia, unspecified organism (3) Acute exacerbation of COPD with asthma Code(s): J44.1 - CHRONIC OBSTRUCTIVE PULMONARY DISEASE W (ACUTE) EXACERBATION; J45.901 - UNSPECIFIED ASTHMA WITH (ACUTE) EXACERBATION (4) Atrial fibrillation with rapid ventricular response Code(s): I48.91 - UNSPECIFIED ATRIAL FIBRILLATION (5) Acute on chronic diastolic (congestive) heart failure Code(s): I50.33 - ACUTE ON CHRONIC DIASTOLIC (CONGESTIVE) HEART FAILURE (6) Acute kidney injury superimposed on CKD Code(s): N17.9 - ACUTE KIDNEY FAILURE, UNSPECIFIED; N18.9 - CHRONIC KIDNEY DISEASE, UNSPECIFIED (7) Hypertension Code(s): I10 - ESSENTIAL (PRIMARY) HYPERTENSION (8) Diabetes Code(s): E11.9 - TYPE 2 DIABETES MELLITUS WITHOUT COMPLICATIONS Qualifiers: Diabetes mellitus type: type 2 (9) Hyperlipidemia Code(s): E78.5 - HYPERLIPIDEMIA, UNSPECIFIED Assessment/Plan This is a 59 y/o woman with a pmhx of Afib (on Eliquis), CHF, HTN, Asthma ( intubated in the past), COPD, prior PE, DM, Pulmonary Fibrosis, Sleep Apnea, Renal Insufficiency, OA. Admitted to ICU for Respiratory Failure with Hypercapnia, Pneumonia, Influenza, Acute COPD Exacerbation, Afib with RVR for further evaluation of their emergent medical condition. Plan: # Respiratory Failure with Hypercapnia Likely secondary to HCAP vs Influenza vs Tobacco Dependency vs PE Admit ICU Patient's ABG worsened, patient is obtunded, minimally responsive to deep tactile stimulus only, no longer able to support airway on BIPAP Intubated in ED, continue mechanical ventilation Appreciate Pulmonology Consult Titrate ABGs Continue cardiac monitoring Monitor CBC, BMP Duonebs # Influenza A Rapid Influenza +A, -B Continue Tamiflu renal dosing 30mg QD Droplet Precautions Monitor CBC Monitor vitals # Pneumonia Will treat for HCAP (recent hospitalization) CURB65- 3 Blood Cultures-pending Urine Legionella Chest Xray- patchy infiltrates L>R WBC 12.1 with L- shift Aztreonam given in ED, will continue Appreciate ID Consult Monitor CBC, BMP Continue mechanical ventilation, titrate ABGs Appreciate Pulmonology Consult # Acute COPD Exacerbation, Asthma Likely secondary to Pneumonia Chest Xray- reviewed Pulm Consult Duonebs Corticosteriods w/taper Monitor vitals O2 # Afib with RVR [id number] EKG- Afib 162bpm Cardizem given in ED, continue Appreciate Cardiology consult # CHF Acute on Chronic Diastolic Chest Xray reviewed BNP 48049, slightly improved from prior visit Appreciate Cardiology consult Continue Lasix Monitor BMP closely Strict INOs Daily weight Continue cardiac monitoring # Hypertension Stable Continue home meds Monitor renal function # Diabetes Mellitus Stable BGMs Hold ISS until diet resumed post intubation Monitor BMP FEN Fluid Restriction Replete lytes prn NPO DVT ppx OOB SCDs Continue Eliquis Dispo: Requires Inpatient Care Visit type - Emergency Visit Emergency Visit: Yes ED Registration Date: 09/24/19 Care time: The patient presented to the Emergency Department on the above date and was hospitalized for further evaluation of their emergent condition. - New Patient This patient is new to me today: Yes Date on this admission: 09/24/19 - Critical Care Critical Care patient: Yes Total Critical Care Time (in minutes): 40 Critical Care Statement: The care of this patient involved high complexity decision making to prevent further life threatening deterioration of the patient 's condition and/or to evaluate & treat vital organ system(s) failure or risk of failure.
[2019-09-25] MEDS: KCL 10 MEQ IVPB 10 MEQ/100 ML INFUS.BAG IVPB SCH ×3 (00:28→04:25)
[2019-09-25] MEDS: PROPOFOL 1,000,000 MCG/100 ML VIAL IVPB SCH ×4 (00:30→20:39)
[2019-09-25] MEDS ORDERED: OSELTAMIVIR PHOSPHATE 6 MG/1 ML PO ONE (00:33)
[2019-09-25 00:51] LABS: ALLENS TEST POSITIVE; ARTERIAL BLOOD GAS BASE EXCESS 0.7 meq/l (-2-2); ARTERIAL BLOOD GAS PO2 122 mmHg (80-100); ARTERIAL BLOOD GAS pH 7.23 (7.35-7.45)
[2019-09-25 00:54] LABS: ARTERIAL BLOOD GAS PCO2 71.8 mmHg (35-45)
[2019-09-25] MEDS ORDERED: DEXTROSE 5%-WATER - 50 ML IVPB ONE ×2 (02:13→09:38)
[2019-09-25] MEDS ORDERED: AZTREONAM 1 GM VIAL (RESTRICTED TO ID) ONE ×2 (02:13→09:38)
[2019-09-25] MEDS: CHLORHEXIDINE GLUCONATE 4% CLEANSER FOR DECOLONIZATION TP SCH ×2 (02:18→21:09)
[2019-09-25] MEDS: AZTREONAM 1 GM in DEXTROSE 5%-WATER - 50 ML IVPB SCH ×2 (02:23→09:55)
[2019-09-25] MEDS ORDERED: GABAPENTIN 300 MG CAPSULE PO SCH (06:00)
[2019-09-25] MEDS: hydrALAZINE HCL 50 MG TABLET (FP) PO SCH ×3 (06:41→22:57)
[2019-09-25 07:20] LABS: BASO % 0.3 % (0-2.0); MCH 30.2 pg (25.7-33.7); MCHC 32.5 g/dl (32.0-36.0); MEAN CELL VOLUME 92.8 fl (80-96); MEAN PLT VOLUME 11.1 fl (7.5-11.1); MONO % 6.5 % (3.8-10.2); NEUT % 89.2 % (42.8-82.8); PLATELET COUNT 86 K/MM3 (134-434); RBC 3.99 M/mm3 (3.60-5.2); RDW 16.1 % (11.6-15.6); WHITE BLOOD COUNT 7.9 K/mm3 (4.0-10.0)
[2019-09-25 07:29] LABS: ARTERIAL BLOOD GAS PCO2 65.3 mmHg (35-45); ARTERIAL BLOOD GAS pH 7.29 (7.35-7.45)
[2019-09-25 07:30] LABS: ALLENS TEST POSITIVE; ARTERIAL BLD GAS O2 SATURATION 91.8 % (95-98); ARTERIAL BLOOD GAS BASE EXCESS 2.8 meq/l (-2-2)
[2019-09-25] MEDS: ALBUTEROL SO4 2.5/IPRATROPIUM 0.5 INH SOL 3 ML VIAL.NEB. NEB SCH ×2 (08:15→12:39)
[2019-09-25] MEDS: methylPREDNISolone NA SUCC 40 MG/1 ML VIAL IVPUSH SCH ×2 (09:09→17:23)
[2019-09-25 09:13] LABS: ALBUMIN 3.3 g/dl (3.4-5.0); BILIRUBIN,TOTAL 0.6 mg/dL (0.2-1); CALCIUM 8.7 mg/dL (8.5-10.1); CREATININE 1.8 mg/dL (0.55-1.3); MAGNESIUM 3.1 mg/dL (1.8-2.4); PHOSPHOROUS 3.8 mg/dL (2.5-4.9); POTASSIUM 3.8 mmol/L (3.5-5.1); TOT PROT 6.7 g/dl (6.4-8.2)
[2019-09-25] MEDS: FUROSEMIDE 40 MG TABLET (FP) PO SCH (09:56)
[2019-09-25] MEDS: APIXABAN 2.5 MG TABLET PO SCH ×2 (09:56→21:03)
[2019-09-25] MEDS: BUDESONIDE/FORMETEROL FUMARATE 80/4.5 mcg INHALER IH SCH ×2 (09:56→21:09)
[2019-09-25] MEDS: OSELTAMIVIR PHOSPHATE 6 MG/1 ML PO SCH (09:57)
[2019-09-25] MEDS ORDERED: PT OWN MED DRAWER 7, Y5N ONE ×3 (09:59→20:55)
[2019-09-25] MEDS: MUPIROCIN 2% TOPICAL OINTMENT FOR DECOLONIZATION NS SCH ×2 (09:59→21:08)
[2019-09-25] MEDS ORDERED: OSELTAMIVIR PHOSPHATE 30 MG CAPSULE PO SCH (10:00)
[2019-09-25] MEDS ORDERED: OSELTAMIVIR PHOSPHATE 30 MG CAPSULE NGT SCH (10:00)
[2019-09-25] MEDS ORDERED: VERAPAMIL HCL 120 MG E.R. TABLET PO SCH (10:00)
[2019-09-25] MEDS ORDERED: OSELTAMIVIR PHOSPHATE 6 MG/1 ML PO SCH (10:00)
[2019-09-25] MEDS ORDERED: MUPIROCIN 2% TOPICAL OINTMENT FOR DECOLONIZATION NS SCH (10:00)
[2019-09-25] MEDS ORDERED: fentaNYL CITRATE 250 MCG/5 ML VIAL ONE ×3 (10:31→20:55)
[2019-09-25] MEDS ORDERED: ALBUTEROL SO4 0.083% IH SOL 2.5 MG/3 ML VIAL.NEB. NEB PRN (10:34)
[2019-09-25] MEDS ORDERED: dilTIAZem HCL 30 MG TABLET (FP) PO SCH ×2 (10:35→10:55)
[2019-09-25] MEDS ORDERED: FENTANYL INJECTION 500 MCG in DEXTROSE 5%-WATER - 90 ML IVPB SCH (10:45)
--- NOTE | 2019-09-25 10:47 | PN ---
Teaching Attending Note Name of Resident: Silva Murdock ATTENDING PHYSICIAN STATEMENT I saw and evaluated the patient. I reviewed the resident's note and discussed the case with the resident. I agree with the resident's findings and plan as documented. SUBJECTIVE: Pt seen and examined in the ICU. Intubated, sedated on volume assist control. + Influenza A. [place] high 30s, Pplat low 20s. OBJECTIVE: Vital Signs Period Temp Pulse Resp BP Sys/[place] Pulse Ox Last 24 Hr 98.0 F-100.0 F 87-162 14-30 112-207/72-135 93-100 Intake & Output 09/22/19 09/23/19 09/24/19 09/25/19 23:59 23:59 23:59 23:59 Intake Total 418 Output Total 1300 Balance -882 Weight 72.575 kg 68.629 kg Gen: intubated, sedated Heart: irregular Lung: scattered rhonchi Abd: soft, nontender Ext: no edema CBC, BMP 09/25/19 05:55 09/25/19 05:55 Active Medications Albuterol Sulfate (Ventolin 0.083% Nebulizer Soln -) 1 amp NEB Q6H PRN PRN Reason: SHORT OF BREATH/WHEEZING Albuterol/Ipratropium (Duoneb -) 1 amp NEB RQID JOLENE Apixaban (Eliquis -) 2.5 mg PO BID [facility] Last Admin: 09/25/19 09:56 Dose: 2.5 mg Aztreonam (Azactam (Restricted To Id) -) 1 gm IVPB Q8H JOLENE; Protocol Budesonide/Formoterol Fumarate (Symbicort 80/4.5mcg -) 2 puff IH BID [facility] Last Admin: 09/25/19 09:56 Dose: Not Given Chlorhexidine Gluconate (Hibiclens For Decolonization -) 1 applic TP HS [facility] Last Admin: 09/25/19 02:18 Dose: 1 applic Diltiazem HCl (Cardizem -) 30 mg PO Q6HPO ONE Stop: 09/25/19 10:36 Ergocalciferol (Drisdol -) 50,000 unit PO Q7D [facility] Furosemide (Lasix -) 40 mg PO DAILY [facility] Last Admin: 09/25/19 09:56 Dose: 40 mg Gabapentin (Neurontin Oral Liquid -) 300 mg PO TID [facility] Hydralazine HCl (Apresoline -) 50 mg PO TID [facility] Last Admin: 09/25/19 06:41 Dose: 50 mg Dexmedetomidine HCl 200 mcg/ (Sodium Chloride) 52 mls @ 3.6 mls/hr IVPB TITR [facility]; Protocol Last Admin: 09/24/19 23:16 Dose: 3.6 mls/hr, 3.6 mls/hr Propofol (Diprivan -) 1,000,000 mcg in 100 mls @ 2.177 mls/hr IVPB TITR [facility]; Protocol Last Admin: 09/25/19 07:55 Dose: 25 mcg/kg/min, 10.886 mls/hr Aztreonam 1 gm/ Dextrose 50 mls @ 100 mls/hr IVPB Q8H-IV JOLENE Stop: 09/25/19 18:29 Last Admin: 09/25/19 09:55 Dose: 100 mls/hr Fentanyl 500 mcg/ Dextrose 100 mls @ 5 mls/hr IVPB TITR [facility]; Protocol Methylprednisolone Sodium Succinate (Solu-Medrol -) 40 mg IVPUSH Q8H-IV [facility] Last Admin: 09/25/19 09:09 Dose: 40 mg Mupirocin (Bactroban Ointment (For Decolonization) -) 1 applic NS BID [facility] Stop: 09/29/19 21:59 Last Admin: 09/25/19 09:59 Dose: 1 applic Oseltamivir Phosphate (Tamiflu Oral Suspension -) 30 mg PO DAILY [facility] Stop: 09/30/19 09:59 Last Admin: 09/25/19 09:57 Dose: 30 mg Pantoprazole Sodium (Protonix Iv) 40 mg IVPUSH DAILY [facility] ASSESSMENT AND PLAN: Acute on Chronic Hypoxic and Hypercapneic Respiratory Failure Influenza A Pneumonia Acute COPD Exacerbation Atrial Fibrillation with RVR LV Diastolic Dysfunction HTN DM CKD Obstructive Sleep Apnea - continue antibiotics, tamiflu - f/u cultures - IV medrol - inhaled bronchodilators standing and PRN - O2 to keep SpO2 >90% - monitor Ppeak/Pplat - sedate for vent synchrony - monitor ABG - rate control - continue anticoagulation - enteral feeds if unable to extubate - DVT/GI prophylaxis - continue ICU monitoring critical care time spent in reviewing chart, evaluating patient and formulating plan 35 min
[2019-09-25] MEDS: FENTANYL INJECTION 500 MCG in DEXTROSE 5%-WATER - 90 ML IVPB SCH ×3 (11:00→21:03)
[2019-09-25] MEDS: PANTOPRAZOLE SODIUM 40 MG VIAL IVPUSH SCH (11:01)
--- NOTE | 2019-09-25 11:07 | CON.CARD ---
Consult Consult Specialty:: Cardiology Referred by:: Tesfaye Reason for Consultation:: af rvr - History of Present Illness Chief Complaint: sob History of Present Illness: She is a 59 year old female with a PMH of hypertension, AFIB, CHF, COPD, DM, sleep apnea, and CKD. She presented to the ER with SOB, respiratory failure, was intubated due to hypercapneic respiratory failure. Found with influeza, HCAP and atrial fibrillation with RVR. Echocardiogram 04/26/19 showed normal LV funciton, moderate severe AI, moderate MR, severe TR. 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: Other (Sciatica) Cardio/Vascular: Yes: AFIB, CHF, HTN Pulmonary: Yes: Asthma ((prior intubations)), COPD, O2 Dependent, Pulmonary Embolus (in the past), Pulmonary Fibrosis (history) Renal/: Yes: Renal Inusuff (CKD) Musculoskeletal: Yes: Osteoarthritis Endocrine: Yes: Diabetes Mellitus, Hypothyroidism - Past Surgical History Past Surgical History: Yes: - Alcohol/Substance Use Hx Alcohol Use: No History of Substance Use: reports: None - Smoking History Smoking history: Current every day smoker Have you smoked in the past 12 months: Yes Aproximately how many cigarettes per day: 2 - Social History Usual Living Arrangement: Alone (lives with in apartment without stairs) ADL: Independent (with Rollator) History of Recent Travel: No Home Medications - Allergies Allergies/Adverse Reactions: Allergies Allergy/AdvReac Type Severity Reaction Status Date / Time morphine Allergy Severe Verified 07/13/19 18:42 Penicillins Allergy Severe Hives Verified 07/13/19 18:42 tomato [Tomato] Allergy Unknown Verified 07/13/19 18:42 chocolate AdvReac Unknown Uncoded 07/13/19 18:42 - Home Medications Home Medications: Ambulatory Orders Albuterol Sulfate Inhaler - [Ventolin HFA Inhaler -] 1 inh IH QID PRN 05/21/18 Budesonide/Formeterol Fumarate [SYMBICORT 80/4.5mcg -] 2 puff IH BID #1 inhaler 12/28/18 Bupropion HCl [Wellbutrin Xl -] 150 mg PO DAILY tab.sr.24h 12/28/18 Cholecalciferol (Vitamin D3) [Vitamin D -] 50,000 unit PO WEEKLY 01/22/19 Linagliptin [Tradjenta] 5 mg PO DAILY 01/22/19 Acetaminophen [Tylenol .Regular Strength -] 650 mg PO Q6H PRN tablet 02/10/19 Apixaban [Eliquis -] 2.5 mg PO BID #60 tablet 04/30/19 Lidocaine 5% Patch [Lidoderm -] 1 patch TP DAILY #30 patch 04/30/19 Gabapentin [Neurontin -] 300 mg PO TID #60 capsule 06/28/19 Verapamil HCl ER [Calan Sr -] 120 mg PO DAILY #30 tablet.er 06/28/19 hydrALAZINE HCL [Apresoline -] 50 mg PO TID #90 tablet MDD 3 06/28/19 Diclofenac Sodium [Diclo Gel] 1 each TP ASDIR 07/13/19 Digoxin [Lanoxin -] 0.125 mg PO DAILY 07/13/19 Furosemide [Lasix] 40 mg PO DAILY 07/13/19 Oxycodone HCl/Acetaminophen [Endocet 10-325 mg Tablet] 1 each PO QID PRN Vital Signs: Vital Signs Temperature 98.0 F 09/25/19 10:00 Pulse Rate 122 H 09/25/19 10:00 Respiratory Rate 27 H 09/25/19 10:00 Blood Pressure 175/108 H 09/25/19 10:00 O2 Sat by Pulse Oximetry (%) 100 09/25/19 08:00 Constitutional: Yes: No Distress, Anxious Eyes: Yes: Conjunctiva Clear, EOM Intact HENT: Yes: Atraumatic, Normocephalic Neck: Yes: Trachea Midline Respiratory: Yes: Mechanically Ventilated, Poor Air Entry Gastrointestinal: Yes: Normal Bowel Sounds, Soft Cardiovascular: Yes: Tachycardia, Pulse Irregular JVD: No Carotid Bruit: No PMI: Non-Displaced Musculoskeletal: Yes: WNL Extremities: Yes: WNL Edema: No Peripheral Pulses WNL: Yes - Other Data Labs, Other Data: CBC, BMP 09/25/19 05:55 09/25/19 05:55 INR, PTT INR 1.16 (0.83-1.09) H 09/24/19 16:30 Troponin, BNP 09/24/19 16:30 Troponin I 0.03 B-Natriuretic Peptide 16733.3 H Troponin, BNP 09/24/19 16:30 Troponin I 0.03 B-Natriuretic Peptide 94967.3 H Imaging - Results Chest X-ray: Report Reviewed (no infiltrate) EKG: Report Reviewed (af rvr) Assessment/Plan She is a 59 year old female with a PMH of hypertension, AFIB, CHF, COPD, DM, sleep apnea, and CKD. She presented to the ER with SOB, respiratory failure, was intubated due to hypercapneic respiratory failure. Found with influeza, HCAP and atrial fibrillation with RVR. Echocardiogram 04/26/19 showed normal LV funciton, moderate severe AI, moderate MR, severe TR. Atrial Fibrillation -still with RVR. Change verapamil sr to verapamil 40 mg q8h, increase as tolerated by bp and HR. -can push IV verapamil 2.5-5 mg q6h for breakthrough. -no need for repeat echo -increase sedation. -HR is well tolerated at this point, likely due to sepsis and hypoxic stress. try to limit beta agonists. -will follow.
--- NOTE | 2019-09-25 11:48 | PN ---
Physical Exam: SUBJECTIVE: Patient seen and examined this AM. Remains intubated. OBJECTIVE: Vital Signs Period Temp Pulse Resp BP Sys/Salgado Pulse Ox Last 24 Hr 98.0 F-100.0 F 87-162 14-30 112-207/72-135 93-100 GENERAL: Sedated HEAD: NCAT NECK: No JVD LUNGS: Mechanical Vent sounds HEART: irregular rate and rhythm, no murmur ABDOMEN: Soft, nontender, not distended, + bowel sounds EXTREMITIES: 1+ pitting edema NEUROLOGICAL: Sedated SKIN: Warm, dry Laboratory Last Values WBC 7.9 K/mm3 (4.0-10.0) 09/25/19 05:55 RBC 3.99 M/mm3 (3.60-5.2) 09/25/19 05:55 Hgb 12.0 GM/dL (10.7-15.3) 09/25/19 05:55 Hct 37.0 % (32.4-45.2) 09/25/19 05:55 MCV 92.8 fl (80-96) 09/25/19 05:55 MCH 30.2 pg (25.7-33.7) 09/25/19 05:55 MCHC 32.5 g/dl (32.0-36.0) 09/25/19 05:55 RDW 16.1 % (11.6-15.6) H 09/25/19 05:55 Plt Count 86 K/MM3 (134-434) L D 09/25/19 05:55 MPV 11.1 fl (7.5-11.1) 09/25/19 05:55 Absolute Neuts (auto) 7.0 K/mm3 (1.5-8.0) 09/25/19 05:55 Neutrophils % 89.2 % (42.8-82.8) H 09/25/19 05:55 Lymphocytes % 4.0 % (8-40) L D 09/25/19 05:55 Monocytes % 6.5 % (3.8-10.2) 09/25/19 05:55 Eosinophils % 0.0 % (0-4.5) 09/25/19 05:55 Basophils % 0.3 % (0-2.0) 09/25/19 05:55 Nucleated RBC % 0 % (0-0) 09/25/19 05:55 PT with INR 13.70 SEC (9.7-13.0) H 09/24/19 16:30 INR 1.16 (0.83-1.09) H 09/24/19 16:30 Anticoagulation Therapy No Result Required. 09/25/19 07:00 Puncture Site Right brachial 09/25/19 07:00 ABG pH 7.29 (7.35-7.45) L 09/25/19 07:00 ABG pCO2 at Pt Temp 65.3 mmHg (35-45) H 09/25/19 07:00 ABG pO2 at Pt Temp 68.0 mmHg (80-100) L 09/25/19 07:00 ABG HCO3 30.6 mmol/L (22-27) H 09/25/19 07:00 ABG O2 Sat (Measured) 91.8 % (95-98) L 09/25/19 07:00 ABG O2 Content 16.6 % vol 09/25/19 07:00 ABG Base Excess 2.8 meq/l (-2-2) H 09/25/19 07:00 Randy Test Positive 09/25/19 07:00 Carboxyhemoglobin 3.0 % (0-2) H 09/24/19 18:21 Methemoglobin < 1.0 % (0-2) 09/24/19 18:21 O2 Delivery Device Vent 09/25/19 07:00 Oxygen Flow Rate 50% 09/25/19 07:00 Vent Mode No Result Required. 09/25/19 07:00 Vent Rate 20 09/25/19 07:00 Mechanical Rate No Result Required. 09/25/19 07:00 PEEP 5.0 cmH2O 09/25/19 07:00 Pressure Support Vent 450 09/25/19 07:00 Sodium 139 mmol/L (136-145) 09/25/19 05:55 Potassium 3.8 mmol/L (3.5-5.1) 09/25/19 05:55 Chloride 102 mmol/L (98-107) 09/25/19 05:55 Carbon Dioxide 29 mmol/L (21-32) 09/25/19 05:55 Anion Gap 8 MMOL/L (8-16) 09/25/19 05:55 BUN 39.0 mg/dL (7-18) H 09/25/19 05:55 Creatinine 1.8 mg/dL (0.55-1.3) H 09/25/19 05:55 Est GFR (CKD-EPI)AfAm 34.60 09/25/19 05:55 Est GFR (CKD-EPI)NonAf 29.85 09/25/19 05:55 POC Glucometer 127 UNITS (80-120) 09/25/19 06:12 Random Glucose 168 mg/dL (74-106) H 09/25/19 05:55 Lactic Acid 1.3 mmol/L (0.4-2.0) 09/24/19 16:30 Calcium 8.7 mg/dL (8.5-10.1) 09/25/19 05:55 Phosphorus 3.8 mg/dL (2.5-4.9) 09/25/19 05:55 Magnesium 3.1 mg/dL (1.8-2.4) H 09/25/19 05:55 Total Bilirubin 0.6 mg/dL (0.2-1) 09/25/19 05:55 AST 23 U/L (15-37) 09/25/19 05:55 ALT 32 U/L (13-61) 09/25/19 05:55 Alkaline Phosphatase 96 U/L (45-117) 09/25/19 05:55 Creatine Kinase 48 U/L (26-192) 09/24/19 16:30 Troponin I 0.03 ng/ml (0.00-0.05) 09/24/19 16:30 B-Natriuretic Peptide 67853.3 pg/ml (5-125) H 09/24/19 16:30 Total Protein 6.7 g/dl (6.4-8.2) 09/25/19 05:55 Albumin 3.3 g/dl (3.4-5.0) L 09/25/19 05:55 TSH 0.21 uIU/ml (0.358-3.74) L 09/25/19 05:55 Urine Color Yellow 09/24/19 20:15 Urine Appearance Clear 09/24/19 20:15 Urine pH 5.0 (5.0-8.0) 09/24/19 20:15 Ur Specific [place] 1.014 (1.010-1.035) 09/24/19 20:15 Urine Protein Trace (NEGATIVE) 09/24/19 20:15 Urine Glucose (UA) Negative (NEGATIVE) 09/24/19 20:15 Urine Ketones Negative (NEGATIVE) 09/24/19 20:15 Urine Blood Negative (NEGATIVE) 09/24/19 20:15 Urine Nitrite Negative (NEGATIVE) 09/24/19 20:15 Urine Bilirubin Negative (NEGATIVE) 09/24/19 20:15 Urine Urobilinogen 0.2 mg/dL (0.2-1.0) 09/24/19 20:15 Ur Leukocyte Esterase Negative (NEGATIVE) 09/24/19 20:15 Digoxin 0.44 ng/ml (0.8-2.0) L 09/25/19 05:55 Influenza A (Rapid) Positive (Negative) A 09/24/19 20:15 Influenza B (Rapid) Negative (Negative) 09/24/19 20:15 Active Medications Albuterol Sulfate (Ventolin 0.083% Nebulizer Soln -) 1 amp NEB Q6H PRN PRN Reason: SHORT OF BREATH/WHEEZING Albuterol/Ipratropium (Duoneb -) 1 amp NEB RQID JOLENE Apixaban (Eliquis -) 2.5 mg PO BID [facility] Last Admin: 09/25/19 09:56 Dose: 2.5 mg Aztreonam (Azactam (Restricted To Id) -) 1 gm IVPB Q8H [facility]; Protocol Budesonide/Formoterol Fumarate (Symbicort 80/4.5mcg -) 2 puff IH BID [facility] Last Admin: 09/25/19 09:56 Dose: Not Given Chlorhexidine Gluconate (Hibiclens For Decolonization -) 1 applic TP HS [facility] Last Admin: 09/25/19 02:18 Dose: 1 applic Digoxin (Lanoxin -) 0.125 mg PO DAILY [facility] Diltiazem HCl (Cardizem -) 30 mg PO Q6HPO [facility] Last Admin: 09/25/19 11:01 Dose: 30 mg Ergocalciferol (Drisdol -) 50,000 unit PO Q7D [facility] Furosemide (Lasix -) 40 mg PO DAILY [facility] Last Admin: 09/25/19 09:56 Dose: 40 mg Gabapentin (Neurontin Oral Liquid -) 300 mg PO TID [facility] Hydralazine HCl (Apresoline -) 50 mg PO TID [facility] Last Admin: 01/18/20 06:41 Dose: 50 mg Propofol (Diprivan -) 1,000,000 mcg in 100 mls @ 2.177 mls/hr IVPB TITR [facility]; Protocol Last Admin: 09/25/19 07:55 Dose: 25 mcg/kg/min, 10.886 mls/hr Aztreonam 1 gm/ Dextrose 50 mls @ 100 mls/hr IVPB Q8H-IV [facility] Stop: 09/25/19 18:29 Last Admin: 09/25/19 09:55 Dose: 100 mls/hr Fentanyl 500 mcg/ Dextrose 100 mls @ 5 mls/hr IVPB TITR [facility] Methylprednisolone Sodium Succinate (Solu-Medrol -) 40 mg IVPUSH Q8H-IV [facility] Last Admin: 09/25/19 09:09 Dose: 40 mg Mupirocin (Bactroban Ointment (For Decolonization) -) 1 applic NS BID [facility] Stop: 09/29/19 21:59 Last Admin: 09/25/19 09:59 Dose: 1 applic Oseltamivir Phosphate (Tamiflu Oral Suspension -) 30 mg PO DAILY [facility] Stop: 09/30/19 09:59 Last Admin: 09/25/19 09:57 Dose: 30 mg Pantoprazole Sodium (Protonix Iv) 40 mg IVPUSH DAILY [facility] Last Admin: 09/25/19 11:01 Dose: 40 mg ASSESSMENT/PLAN: 59 y/o F PMHx AFib (on Eliquis), CHF, HTN, CKD 3b, COPD/Asthma (requiring intubation in past, current smoker), prior PE, pulmonary fibrosis, TANISHA, DM, presents with SOB and admitted to ICU for AHHRF s/p intubation. #Neuro Sedated s/p Intubation -Continue propofol, Fentanyl to sedate for vent synchrony; Daily sedation vacation to access mental status #Cardio Hx of AFib (Controlled, on Eliquis), CHF (Not overloaded), HTN (Controlled) -Continue Apixaban, Lasix, Hydralazine, Digoxin -Unable to crush home dose verapamil 120mg to be placed in NG Tube; Start Diltiazem 30mg PO Q6H #Pulmonary AHHRF likely due to PNA vs Influenza vs COPD Exacerbation Hx of COPD/Asthma (requiring intubation in past, current smoker), prior PE, pulmonary fibrosis, TANISHA -Currently on Ventilator (50%/5/450/20); Continue supplemental O2 to maintain SpO2 88-92% -Continue Bronchodilation via Ventolin, Duoneb, Symbicort -Continue IV SoluMedrol 40mg Q8H -Daily CXR, Check ABG in AM #GI -Maintain OG tube -Continue PPI #Renal Hx of CKD 3b -Monitor Cr #ID Upper Lobe PNA Influenza A Positive -Continue Aztreonam, Oseltamivir (Abx course started on 09/24) -ID consulted, appreciate recs -Follow cultures #Endo Hx of DM -ISS BGMs ACHS -Continue Gabapentin #FEN -No standing fluids -Replete lytes PRN -NPO, OG tube in place #PPx -DVT: NOAC -GI: PPI #LTD -Intubated 09/25/19 -Flores 09/25/19 Dispo: We will continue to follow the patient. Thank you for this consultative opportunity. Visit type - Emergency Visit Emergency Visit: Yes ED Registration Date: 09/24/19 Care time: The patient presented to the Emergency Department on the above date and was hospitalized for further evaluation of their emergent condition. - New Patient This patient is new to me today: Yes Date on this admission: 09/25/19 - Critical Care Critical Care patient: Yes Total Critical Care Time (in minutes): 36 Critical Care Statement: The care of this patient involved high complexity decision making to prevent further life threatening deterioration of the patient's condition and/or to evaluate & treat vital organ system(s) failure or risk of failure. ATTENDING PHYSICIAN STATEMENT I saw and evaluated the patient. I reviewed the resident's note and discussed the case with the resident. I agree with the resident's findings and plan as documented. SUBJECTIVE: OBJECTIVE: ASSESSMENT AND PLAN:
[2019-09-25] MEDS ORDERED: dilTIAZem HCL 60 MG TABLET (FP) PO SCH (12:00)
[2019-09-25] MEDS: DIGOXIN 0.125 MG TABLET (FP) PO SCH (12:27)
--- NOTE | 2019-09-25 13:10 | PN ---
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 (short form) - Note 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: ID CONSULT DICTATED ACUTE RESP FAILURE PNEUMONIA ACUTE INFLUENZA A EXACERBATION COPD PCN ALLERGY [id number] PENDING C/S EMPIRIC VANCOMYCIN/ CEFEPIME TAMIFLU DROPLET PRECAUTIONS
[2019-09-25] MEDS: AZTREONAM 1 GM VIAL (RESTRICTED TO ID) IVPB SCH (13:13)
[2019-09-25] MEDS: VERAPAMIL HCL 40 MG TABLET PO SCH ×2 (13:39→22:04)
--- NOTE | 2019-09-25 13:40 | CONS ---
INFECTIOUS DISEASE CONSULTATION DATE OF CONSULTATION: DATE OF DICTATION: 09/25/2019 HISTORY OF PRESENT ILLNESS: The patient is a 59-year-old female, history of COPD, evaluated for respiratory failure and pneumonia. She presented to the hospital, on September 24, 2019, with worsening respiratory status. She had developed shortness of breath and respiratory distress. She was placed on BiPAP; however, ultimately required intubation. At the present time, she is intubated in the intensive care unit. Chest x-ray showed increased markings in the upper lobes bilaterally. Influenza swab was positive for influenza A. She was empirically treated with vancomycin and Azactam. She has a history of a PENICILLIN allergy, which consists of rash; no history of anaphylaxis. PAST MEDICAL HISTORY: Positive for COPD, atrial fibrillation, congestive heart failure, hypertension, asthma, pulmonary embolism, pulmonary fibrosis, diabetes mellitus. ALLERGIES: MORPHINE; PENICILLIN. MEDICATIONS: Include Tylenol, albuterol, Eliquis, aztreonam, Hibiclens, Lanoxin, Cardizem, Lasix, Neurontin, hydralazine, methylprednisolone, Tamiflu, propofol, vancomycin. SOCIAL HISTORY: Resides at home in the community. Positive history of tobacco use. SYSTEMS REVIEW: Neurologic: No loss of consciousness, seizure activity, focal weakness. Cardiac: Negative chest pain or palpitations. Positive atrial fibrillation. Respiratory: As per HPI. Gastrointestinal: Negative vomiting or diarrhea. Genitourinary: Negative for urinary tract infection. LABORATORY DATA: White count 7.9, hematocrit 37.0, platelet count 86. Urinalysis: Negative leukocyte esterase. pending. PHYSICAL EXAMINATION: General: On exam, she is awake, but lethargic. Vital Signs: Temperature 98, T-maximum 100, blood pressure 175/108, pulse 127, respiratory rate 27. HEENT: Patient is orally intubated. Heart: Heart sounds S1, S2. Tachycardic. Lungs: Clear. Mechanically ventilated. Abdomen: Soft and nontender. Extremities: Negative for edema. IMPRESSION: 1. Acute respiratory failure. 2. Pneumonia. 3. Influenza A. 4. PENICILLIN allergy. 5. Exacerbation chronic obstructive pulmonary disease. 6. Atrial fibrillation. 7. Thrombocytopenia. Likely secondary to sepsis. 8. Chronic kidney disease. 9. Congestive heart failure. Await cultures. Empiric antibiotic coverage for possible healthcare-acquired pneumonia with vancomycin and cefepime in this PENICILLIN-allergic patient. Continue Tamiflu. Droplet precautions. Will follow. Thank you for the kind referral. LAKEISHA TORRES M.D. BLAS/[id number]
[2019-09-25] MEDS: GABAPENTIN 250 MG/5 ML ORAL SOLUTION, 470 ML BOTTLE PO SCH ×2 (13:41→21:08)
--- NOTE | 2019-09-25 15:55 | PN ---
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, Physician Chief Complaint: Acute respiratory failure Influenza A COPD exacerbation NAM Pneumonia ARLYN History of Present Illness: Mechanically vented NAD - Current Medication List Current Medications: Active Medications Albuterol Sulfate (Ventolin 0.083% Nebulizer Soln -) 1 amp NEB Q6H PRN PRN Reason: SHORT OF BREATH/WHEEZING Apixaban (Eliquis -) 2.5 mg PO BID [facility] Last Admin: 09/25/19 09:56 Dose: 2.5 mg Budesonide/Formoterol Fumarate (Symbicort 80/4.5mcg -) 2 puff IH BID [facility] Last Admin: 09/25/19 09:56 Dose: Not Given Chlorhexidine Gluconate (Hibiclens For Decolonization -) 1 applic TP HS [facility] Last Admin: 09/25/19 02:18 Dose: 1 applic Digoxin (Lanoxin -) 0.125 mg PO DAILY [facility] Last Admin: 09/25/19 12:27 Dose: 0.125 mg Ergocalciferol (Drisdol -) 50,000 unit PO We@1000 JOLENE Furosemide (Lasix -) 40 mg PO DAILY [facility] Last Admin: 09/25/19 09:56 Dose: 40 mg Gabapentin (Neurontin Oral Liquid -) 300 mg PO TID [facility] Last Admin: 09/25/19 13:41 Dose: 300 mg Hydralazine HCl (Apresoline -) 50 mg PO TID [facility] Last Admin: 09/25/19 13:41 Dose: 50 mg Propofol (Diprivan -) 1,000,000 mcg in 100 mls @ 2.177 mls/hr IVPB TITR [facility]; Protocol Last Admin: 09/25/19 14:30 Dose: 40 mcg/kg/min, 17.418 mls/hr Fentanyl 500 mcg/ Dextrose 100 mls @ 5 mls/hr IVPB TITR [facility] Last Titration: 09/25/19 14:30 Dose: 75 mcg/hr, 15 mls/hr Vancomycin HCl (Vancomycin (Pre-Docked)) 1,000 mg in 250 mls @ 200 mls/hr IVPB HS [facility]; Protocol Cefepime HCl 1 gm/ Dextrose 100 mls @ 200 mls/hr IVPB BID [facility]; Protocol Insulin Aspart (Novolog Vial Sliding Scale -) 1 vial SQ ACHS [facility]; Protocol Levalbuterol HCl (Xopenex) 0.63 mg IH RTID [facility] Methylprednisolone Sodium Succinate (Solu-Medrol -) 40 mg IVPUSH Q8H-IV [facility] Last Admin: 09/25/19 09:09 Dose: 40 mg Mupirocin (Bactroban Ointment (For Decolonization) -) 1 applic NS BID [facility] Stop: 09/29/19 21:59 Last Admin: 09/25/19 09:59 Dose: 1 applic Oseltamivir Phosphate (Tamiflu Oral Suspension -) 30 mg PO DAILY [facility] Stop: 09/30/19 09:59 Last Admin: 09/25/19 09:57 Dose: 30 mg Pantoprazole Sodium (Protonix Iv) 40 mg IVPUSH DAILY [facility] Last Admin: 09/25/19 11:01 Dose: 40 mg Verapamil HCl (Calan -) 40 mg PO TID [facility] Last Admin: 09/25/19 13:39 Dose: 40 mg - Objective Vital Signs: Vital Signs Temperature 98.1 F 09/25/19 14:00 Pulse Rate 108 H 09/25/19 14:00 Respiratory Rate 21 H 09/25/19 14:00 Blood Pressure 161/118 H 09/25/19 14:00 O2 Sat by Pulse Oximetry (%) 100 09/25/19 08:00 Constitutional: Yes: Well Nourished, No Distress, Calm Cardiovascular: Yes: Tachycardia, Pulse Irregular Respiratory: Yes: Mechanically Ventilated, Rhonchi (Diffuse) Gastrointestinal: Yes: Normal Bowel Sounds, Soft, Abdomen, Obese Genitourinary: Yes: Flores Present Musculoskeletal: Yes: Other (unable to asses-pt sedated) Edema: No Peripheral Pulses WNL: Yes Neurological: Yes: Other (sedated) Labs: CBC, BMP 09/25/19 05:55 09/25/19 05:55 INR, PTT INR 1.16 (0.83-1.09) H 09/24/19 16:30 Problem List - Problems (1) Influenza A Assessment/Plan: -Seen by ID -Tamiflu dosed as per renal fxn Code(s): J10.1 - FLU DUE TO OTH IDENT INFLUENZA VIRUS W OTH RESP MANIFEST (2) Acute respiratory failure Assessment/Plan: -Diesel Locomotive Firer vent -Pulmonary on board -Bronchodilators -IV abx -ID on board -IV medrol Problems reviewed: Yes Code(s): J96.00 - ACUTE RESPIRATORY FAILURE, UNSP W HYPOXIA OR HYPERCAPNIA (3) Acute exacerbation of COPD with asthma Problems reviewed: Yes Code(s): J44.1 - CHRONIC OBSTRUCTIVE PULMONARY DISEASE W (ACUTE) EXACERBATION; J45.901 - UNSPECIFIED ASTHMA WITH (ACUTE) EXACERBATION (4) Pneumonia Assessment/Plan: -Diesel Locomotive Firer vent -Pulmonary on board -Bronchodilators -IV abx -ID on board -IV medrol Problems reviewed: Yes Code(s): J18.9 - PNEUMONIA, UNSPECIFIED ORGANISM Qualifiers: Pneumonia type: due to unspecified organism Laterality: unspecified laterality Lung location: unspecified part of lung Qualified Code(s): J18.9 - Pneumonia, unspecified organism (5) JOSEPH (acute kidney injury) Assessment/Plan: -Nephrology consult -monitor trend Problems reviewed: Yes Code(s): N17.9 - ACUTE KIDNEY FAILURE, UNSPECIFIED (6) Afib Assessment/Plan: -Seen by cardiology -On verapamil-continue -Continue eliquis Problems reviewed: Yes Code(s): I48.91 - UNSPECIFIED ATRIAL FIBRILLATION Qualifiers: Atrial fibrillation type: unspecified Qualified Code(s): I48.91 - Unspecified atrial fibrillation Assessment/Plan see problem list
[2019-09-25] MEDS ORDERED: MIDAZOLAM HCL 2 MG/2 ML SINGLE DOSE VIAL IVPUSH ONE (16:26)
[2019-09-25] MEDS: LEVALBUTEROL HCL 0.63 MG/3 ML VIAL.NEB. IH SCH ×2 (16:30→20:53)
[2019-09-25] MEDS ORDERED: MIDAZOLAM IN 0.9 % SOD.CHLORID 100 MG/100 ML PLAST..BAG IVPB SCH (16:30)
[2019-09-25] MEDS: INSULIN SLIDING SCALE (NOVOLOG) 1 VIAL SQ SCH ×2 (16:45→22:04)
[2019-09-25] MEDS ORDERED: MIDAZOLAM IN 0.9 % SOD.CHLORID 1 MG/1 ML PLAST..BAG ONE (16:46)
[2019-09-25] MEDS ORDERED: VERAPAMIL HCL 5 MG/2 ML VIAL IVPUSH ONE (17:47)
--- NOTE | 2019-09-25 19:31 | CON.NEP ---
Consult - Past Medical History CASING BUILDER: Yes: Other (Sciatica) Cardio/Vascular: Yes: AFIB, CHF, HTN Pulmonary: Yes: Asthma ((prior intubations)), COPD, O2 Dependent, Pulmonary Embolus (in the past), Pulmonary Fibrosis (history) Renal/: Yes: Renal Inusuff (CKD) Musculoskeletal: Yes: Osteoarthritis Endocrine: Yes: Diabetes Mellitus, Hypothyroidism - Past Surgical History Past Surgical History: Yes: - Alcohol/Substance Use Hx Alcohol Use: No History of Substance Use: reports: None - Smoking History Smoking history: Current every day smoker Have you smoked in the past 12 months: Yes Aproximately how many cigarettes per day: 2 - Social History Usual Living Arrangement: Alone (lives with in apartment without stairs) ADL: Independent (with Rollator) History of Recent Travel: No Home Medications - Allergies Allergies/Adverse Reactions: Allergies Allergy/AdvReac Type Severity Reaction Status Date / Time morphine Allergy Severe Verified 07/13/19 18:42 Penicillins Allergy Severe Hives Verified 07/13/19 18:42 tomato [Tomato] Allergy Unknown Verified 07/13/19 18:42 chocolate AdvReac Unknown Uncoded 07/13/19 18:42 - Home Medications Home Medications: Ambulatory Orders Albuterol Sulfate Inhaler - [Ventolin HFA Inhaler -] 1 inh IH QID PRN 05/21/18 Budesonide/Formeterol Fumarate [SYMBICORT 80/4.5mcg -] 2 puff IH BID #1 inhaler 12/28/18 Bupropion HCl [Wellbutrin Xl -] 150 mg PO DAILY tab.sr.24h 12/28/18 Cholecalciferol (Vitamin D3) [Vitamin D -] 50,000 unit PO WEEKLY 01/22/19 Linagliptin [Tradjenta] 5 mg PO DAILY 01/22/19 Acetaminophen [Tylenol .Regular Strength -] 650 mg PO Q6H PRN tablet 02/10/19 Apixaban [Eliquis -] 2.5 mg PO BID #60 tablet 04/30/19 Lidocaine 5% Patch [Lidoderm -] 1 patch TP DAILY #30 patch 04/30/19 Gabapentin [Neurontin -] 300 mg PO TID #60 capsule 06/28/19 Verapamil HCl ER [Calan Sr -] 120 mg PO DAILY #30 tablet.er 06/28/19 hydrALAZINE HCL [Apresoline -] 50 mg PO TID #90 tablet MDD 3 06/28/19 Diclofenac Sodium [Diclo Gel] 1 each TP ASDIR 07/13/19 Digoxin [Lanoxin -] 0.125 mg PO DAILY 07/13/19 Furosemide [Lasix] 40 mg PO DAILY 07/13/19 Oxycodone HCl/Acetaminophen [Endocet 10-325 mg Tablet] 1 each PO QID PRN Nephrology Consult - Height Height: 5 ft 3 in - Weight Weight: 151 lb 4.8 oz - BMI Body Mass Index (BMI): 26.8 - Lab Results CBC,BMP: CBC, BMP 09/25/19 05:55 09/25/19 05:55 Anion Gap: Anion Gap Anion Gap 8 MMOL/L (8-16) 09/25/19 05:55 - Physical Examination Vital Signs: Vital Signs Temperature 98.0 F 09/25/19 18:00 Pulse Rate 121 H 09/25/19 18:00 Respiratory Rate 22 H 09/25/19 18:00 Blood Pressure 110/73 09/25/19 18:00 O2 Sat by Pulse Oximetry (%) 100 09/25/19 08:00 Assessment/Plan Acute respiratory failure Influenza A COPD exacerbation NAM Pneumonia ARLYN joseph multifactorial Prerenal 2/2 acute illness, fluid deficit, being on vent is a risk factor for JOSEPH avoid hypotension monitor I and O renal function improving already underlying CKD with fluctuating renal function
[2019-09-25] MEDS ORDERED: DEXTROSE 5%-WATER 100 ML IVPB ONE (20:56)
[2019-09-25] MEDS ORDERED: CEFEPIME HCL 1 GM VIAL (RESTRICTED TO ID) ONE (20:56)
[2019-09-25] MEDS: CEFEPIME 1 GM in DEXTROSE 5%-WATER 100 ML IVPB SCH (21:03)
[2019-09-25] MEDS: VANCOMYCIN 1 GRAM (PRE-DOCKED) 1,000 MG/250 ML BAG IVPB SCH (21:59)
[2019-09-25] MEDS ORDERED: CHLORHEXIDINE GLUCONATE 4% CLEANSER FOR DECOLONIZATION TP SCH (22:00)
[2019-09-26] MEDS: methylPREDNISolone NA SUCC 40 MG/1 ML VIAL IVPUSH SCH ×3 (01:54→17:03)
[2019-09-26] MEDS ORDERED: fentaNYL CITRATE 250 MCG/5 ML VIAL ONE ×2 (04:10→12:51)
[2019-09-26] MEDS: PROPOFOL 1,000,000 MCG/100 ML VIAL IVPB SCH ×3 (04:17→22:55)
[2019-09-26] MEDS: FENTANYL INJECTION 500 MCG in DEXTROSE 5%-WATER - 90 ML IVPB SCH ×2 (04:18→13:03)
[2019-09-26] MEDS ORDERED: PT OWN MED DRAWER 7, Y5N ONE ×2 (05:33→13:00)
[2019-09-26] MEDS: hydrALAZINE HCL 50 MG TABLET (FP) PO SCH ×3 (06:28→20:59)
[2019-09-26] MEDS: INSULIN SLIDING SCALE (NOVOLOG) 1 VIAL SQ SCH ×4 (06:28→21:01)
[2019-09-26] MEDS: VERAPAMIL HCL 40 MG TABLET PO SCH ×3 (06:28→20:59)
[2019-09-26] MEDS: GABAPENTIN 250 MG/5 ML ORAL SOLUTION, 470 ML BOTTLE PO SCH ×3 (06:28→21:00)
[2019-09-26 07:23] LABS: ARTERIAL BLD GAS O2 SATURATION 86.1 % (95-98); ARTERIAL BLOOD GAS pH 7.23 (7.35-7.45)
[2019-09-26 07:24] LABS: ALLENS TEST POSITIVE
[2019-09-26 07:42] LABS: BASO % 0.2 % (0-2.0); HEMATOCRIT 34.1 % (32.4-45.2); LYMPH % 3.4 % (8-40); MCH 29.9 pg (25.7-33.7); MCHC 32.2 g/dl (32.0-36.0); MEAN CELL VOLUME 92.7 fl (80-96); MONO % 7.6 % (3.8-10.2); NEUT % 88.8 % (42.8-82.8); PLATELET COUNT 80 K/MM3 (134-434); RBC 3.67 M/mm3 (3.60-5.2); RDW 16.1 % (11.6-15.6); WHITE BLOOD COUNT 5.5 K/mm3 (4.0-10.0)
[2019-09-26 08:05] LABS: ALBUMIN 2.6 g/dl (3.4-5.0); BILIRUBIN,TOTAL 0.5 mg/dL (0.2-1); BLOOD UREA NITROGEN 49.6 mg/dL (7-18); MAGNESIUM 2.8 mg/dL (1.8-2.4); PHOSPHOROUS 6.4 mg/dL (2.5-4.9); POTASSIUM 4.4 mmol/L (3.5-5.1); TOT PROT 5.5 g/dl (6.4-8.2)
[2019-09-26] MEDS ORDERED: CEFEPIME HCL 1 GM VIAL (RESTRICTED TO ID) ONE ×2 (08:32→19:40)
[2019-09-26] MEDS ORDERED: DEXTROSE 5%-WATER 100 ML IVPB ONE ×2 (08:33→19:40)
[2019-09-26] MEDS: DIGOXIN 0.125 MG TABLET (FP) PO SCH (09:33)
[2019-09-26] MEDS: APIXABAN 2.5 MG TABLET PO SCH ×2 (09:33→20:59)
[2019-09-26] MEDS: MUPIROCIN 2% TOPICAL OINTMENT FOR DECOLONIZATION NS SCH ×2 (09:33→20:59)
[2019-09-26] MEDS: CEFEPIME 1 GM in DEXTROSE 5%-WATER 100 ML IVPB SCH ×2 (09:34→21:00)
[2019-09-26] MEDS: FUROSEMIDE 40 MG TABLET (FP) PO SCH (09:34)
[2019-09-26] MEDS: PANTOPRAZOLE SODIUM 40 MG VIAL IVPUSH SCH (09:35)
[2019-09-26] MEDS: BUDESONIDE/FORMETEROL FUMARATE 80/4.5 mcg INHALER IH SCH ×2 (09:38→21:01)
--- NOTE | 2019-09-26 09:38 | PN ---
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, Physician History of Present Illness: She is a 59 year old female with a PMH of hypertension, AFIB, CHF, COPD, DM, sleep apnea, and CKD. She presented to the ER with SOB, respiratory failure, was intubated due to hypercapneic respiratory failure. Found with influeza, HCAP and atrial fibrillation with RVR. Echocardiogram 04/26/19 showed normal LV funciton, moderate severe AI, moderate MR, severe TR. - Current Medication List Current Medications: Active Medications Albuterol Sulfate (Ventolin 0.083% Nebulizer Soln -) 1 amp NEB Q6H PRN PRN Reason: SHORT OF BREATH/WHEEZING Apixaban (Eliquis -) 2.5 mg PO BID [facility] Last Admin: 09/25/19 21:03 Dose: 2.5 mg Budesonide/Formoterol Fumarate (Symbicort 80/4.5mcg -) 2 puff IH BID [facility] Last Admin: 09/25/19 21:09 Dose: Not Given Chlorhexidine Gluconate (Hibiclens For Decolonization -) 1 applic TP HS [facility] Last Admin: 09/25/19 21:09 Dose: 1 applic Digoxin (Lanoxin -) 0.125 mg PO DAILY [facility] Last Admin: 09/25/19 12:27 Dose: 0.125 mg Ergocalciferol (Drisdol -) 50,000 unit PO We@1000 [facility] Furosemide (Lasix -) 40 mg PO DAILY [facility] Last Admin: 09/25/19 09:56 Dose: 40 mg Gabapentin (Neurontin Oral Liquid -) 300 mg PO TID [facility] Last Admin: 09/26/19 06:28 Dose: 300 mg Hydralazine HCl (Apresoline -) 50 mg PO TID [facility] Last Admin: 09/26/19 06:28 Dose: Not Given Propofol (Diprivan -) 1,000,000 mcg in 100 mls @ 2.177 mls/hr IVPB TITR [facility]; Protocol Last Admin: 09/26/19 04:17 Dose: 18 mcg/kg/min, 7.838 mls/hr Fentanyl 500 mcg/ Dextrose 100 mls @ 5 mls/hr IVPB TITR [facility] Last Titration: 09/26/19 07:40 Dose: 50 mcg/hr, 10 mls/hr Vancomycin HCl (Vancomycin (Pre-Docked)) 1,000 mg in 250 mls @ 200 mls/hr IVPB HS [facility]; Protocol Last Admin: 09/25/19 21:59 Dose: 200 mls/hr Cefepime HCl 1 gm/ Dextrose 100 mls @ 200 mls/hr IVPB BID [facility]; Protocol Last Admin: 09/25/19 21:03 Dose: 200 mls/hr Midazolam HCl (Midazolam 100mg/100ml-0.9%Nacl) 100 mg in 100 mls @ 1 mls/hr IVPB TITR [facility]; Protocol Stop: 09/26/19 16:29 Last Titration: 09/26/19 07:45 Dose: 2 mg/hr, 2 mls/hr Insulin Aspart (Novolog Vial Sliding Scale -) 1 vial SQ ACHS [facility]; Protocol Last Admin: 09/26/19 06:28 Dose: Not Given Levalbuterol HCl (Xopenex) 0.63 mg IH RTID [facility] Last Admin: 09/25/19 20:53 Dose: 0.63 mg Methylprednisolone Sodium Succinate (Solu-Medrol -) 40 mg IVPUSH Q8H-IV [facility] Last Admin: 09/26/19 01:54 Dose: 40 mg Mupirocin (Bactroban Ointment (For Decolonization) -) 1 applic NS BID [facility] Stop: 09/29/19 21:59 Last Admin: 09/25/19 21:08 Dose: 1 applic Oseltamivir Phosphate (Tamiflu Oral Suspension -) 30 mg PO DAILY [facility] Stop: 09/30/19 09:59 Last Admin: 09/25/19 09:57 Dose: 30 mg Pantoprazole Sodium (Protonix Iv) 40 mg IVPUSH DAILY [facility] Last Admin: 09/25/19 11:01 Dose: 40 mg Verapamil HCl (Calan -) 40 mg PO TID [facility] Last Admin: 09/26/19 06:28 Dose: 40 mg - Objective Vital Signs: Vital Signs Temperature 98.0 F 09/26/19 07:00 Pulse Rate 88 09/26/19 08:00 Respiratory Rate 18 09/26/19 08:42 Blood Pressure 101/63 09/26/19 08:00 O2 Sat by Pulse Oximetry (%) 95 09/26/19 08:19 Constitutional: Yes: No Distress, Calm Eyes: Yes: EOM Intact HENT: Yes: Atraumatic, Normocephalic Neck: Yes: Trachea Midline Cardiovascular: Yes: Tachycardia, Pulse Irregular Respiratory: Yes: Mechanically Ventilated Musculoskeletal: Yes: WNL Extremities: Yes: WNL Edema: No Labs: CBC, BMP 09/26/19 07:05 09/26/19 07:05 INR, PTT INR 1.16 (0.83-1.09) H 09/24/19 16:30 Assessment/Plan She is a 59 year old female with a PMH of hypertension, AFIB, CHF, COPD, DM, sleep apnea, and CKD. She presented to the ER with SOB, respiratory failure, was intubated due to hypercapneic respiratory failure. Found with influeza, HCAP and atrial fibrillation with RVR. Echocardiogram 04/26/19 showed normal LV funciton, moderate severe AI, moderate MR, severe TR. Atrial Fibrillation -still with RVR. Changed verapamil sr to verapamil 40 mg q8h, would increase to 80 q8h for better rate control. -can push IV verapamil 2.5-5 mg q6h for breakthrough. -no need for repeat echo -increase sedation. -HR is well tolerated at this point, likely due to sepsis and hypoxic stress. try to limit beta agonists. -will follow.
[2019-09-26] MEDS: LEVALBUTEROL HCL 0.63 MG/3 ML VIAL.NEB. IH SCH ×3 (09:40→21:20)
[2019-09-26] MEDS: OSELTAMIVIR PHOSPHATE 6 MG/1 ML PO SCH (09:40)
[2019-09-26 10:07] LABS: ARTERIAL BLD GAS O2 SATURATION 93.1 % (95-98); ARTERIAL BLOOD GAS BASE EXCESS 3.8 meq/l (-2-2); ARTERIAL BLOOD GAS PCO2 63.9 mmHg (35-45); ARTERIAL BLOOD GAS PO2 70.4 mmHg (80-100); ARTERIAL BLOOD GAS pH 7.32 (7.35-7.45)
[2019-09-26 10:08] LABS: ALLENS TEST POSITIVE
--- NOTE | 2019-09-26 10:46 | PN ---
Teaching Attending Note Name of Resident: Christine Patrick ATTENDING PHYSICIAN STATEMENT I saw and evaluated the patient. I reviewed the resident's note and discussed the case with the resident. I agree with the resident's findings and plan as documented. SUBJECTIVE: Pt seen and examined in the ICU. Remains intubated, sedated. ABG this AM showing worsening respiratory acidosis, vent settings changed. OBJECTIVE: Vital Signs Period Temp Pulse Resp BP Sys/Salgado Pulse Ox Last 24 Hr 98.0 F-98.4 F 73-130 12-22 85-168/55-118 94-96 Intake & Output 09/23/19 09/24/19 09/25/19 09/26/19 23:59 23:59 23:59 23:59 Intake Total 1014.4 806 Output Total 3400 300 Balance -2385.6 506 Weight 72.575 kg 68.629 kg 68.629 kg Gen: intubated, sedated Heart: RRR Lung: scattered rhonchi Abd: soft, nontender Ext: no edema CBC, BMP 09/26/19 07:05 09/26/19 07:05 Active Medications Albuterol Sulfate (Ventolin 0.083% Nebulizer Soln -) 1 amp NEB Q6H PRN PRN Reason: SHORT OF BREATH/WHEEZING Apixaban (Eliquis -) 2.5 mg PO BID [facility] Last Admin: 09/26/19 09:33 Dose: 2.5 mg Budesonide/Formoterol Fumarate (Symbicort 80/4.5mcg -) 2 puff IH BID [facility] Last Admin: 09/26/19 09:38 Dose: Not Given Chlorhexidine Gluconate (Hibiclens For Decolonization -) 1 applic TP HS [facility] Last Admin: 09/25/19 21:09 Dose: 1 applic Digoxin (Lanoxin -) 0.125 mg PO DAILY [facility] Last Admin: 09/26/19 09:33 Dose: 0.125 mg Ergocalciferol (Drisdol -) 50,000 unit PO We@1000 [facility] Furosemide (Lasix -) 40 mg PO DAILY [facility] Last Admin: 09/26/19 09:34 Dose: 40 mg Gabapentin (Neurontin Oral Liquid -) 300 mg PO TID [facility] Last Admin: 09/26/19 06:28 Dose: 300 mg Hydralazine HCl (Apresoline -) 50 mg PO TID [facility] Last Admin: 09/26/19 06:28 Dose: Not Given Propofol (Diprivan -) 1,000,000 mcg in 100 mls @ 2.177 mls/hr IVPB TITR [facility]; Protocol Last Admin: 09/26/19 04:17 Dose: 18 mcg/kg/min, 7.838 mls/hr Fentanyl 500 mcg/ Dextrose 100 mls @ 5 mls/hr IVPB TITR [facility] Last Titration: 09/26/19 07:40 Dose: 50 mcg/hr, 10 mls/hr Vancomycin HCl (Vancomycin (Pre-Docked)) 1,000 mg in 250 mls @ 200 mls/hr IVPB HS [facility]; Protocol Last Admin: 09/25/19 21:59 Dose: 200 mls/hr Cefepime HCl 1 gm/ Dextrose 100 mls @ 200 mls/hr IVPB BID [facility]; Protocol Last Admin: 09/26/19 09:34 Dose: 200 mls/hr Midazolam HCl (Midazolam 100mg/100ml-0.9%Nacl) 100 mg in 100 mls @ 1 mls/hr IVPB TITR [facility]; Protocol Stop: 09/26/19 16:29 Last Titration: 09/26/19 07:45 Dose: 2 mg/hr, 2 mls/hr Insulin Aspart (Novolog Vial Sliding Scale -) 1 vial SQ ACHS [facility]; Protocol Last Admin: 09/26/19 06:28 Dose: Not Given Levalbuterol HCl (Xopenex) 0.63 mg IH RTID [facility] Last Admin: 09/26/19 09:40 Dose: 0.63 mg Methylprednisolone Sodium Succinate (Solu-Medrol -) 40 mg IVPUSH Q8H-IV [facility] Last Admin: 09/26/19 09:35 Dose: 40 mg Mupirocin (Bactroban Ointment (For Decolonization) -) 1 applic NS BID [facility] Stop: 09/29/19 21:59 Last Admin: 09/26/19 09:33 Dose: 1 applic Oseltamivir Phosphate (Tamiflu Oral Suspension -) 30 mg PO DAILY [facility] Stop: 09/30/19 09:59 Last Admin: 09/26/19 09:40 Dose: 30 mg Pantoprazole Sodium (Protonix Iv) 40 mg IVPUSH DAILY [facility] Last Admin: 09/26/19 09:35 Dose: 40 mg Verapamil HCl (Calan -) 40 mg PO TID [facility] Last Admin: 09/26/19 06:28 Dose: 40 mg ASSESSMENT AND PLAN: Acute on Chronic Hypoxic and Hypercapneic Respiratory Failure Influenza A Pneumonia Acute COPD Exacerbation Atrial Fibrillation with RVR LV Diastolic Dysfunction HTN DM CKD Obstructive Sleep Apnea - continue antibiotics, tamiflu - f/u cultures - continue medrol - inhaled bronchodilators standing and PRN - O2 to keep SpO2 >90% - monitor Ppeak/Pplat - sedate for vent synchrony - monitor ABG - rate control - continue anticoagulation - start enteral feeds - DVT/GI prophylaxis - continue ICU monitoring critical care time spent in reviewing chart, evaluating patient and formulating plan 35 min
--- NOTE | 2019-09-26 11:30 | PN ---
Physical Exam: SUBJECTIVE: Patient seen and examined. pt had episode of worsening resp acidosis overnight and BP dropped on few occasion. OBJECTIVE: Vital Signs Period Temp Pulse Resp BP Sys/Salgado Pulse Ox Last 24 Hr 98.0 F-98.4 F 73-130 12-22 85-168/55-118 94-96 GENERAL: Sedated and intubated HEAD: NCAT NECK: No JVD LUNGS: Mechanical Vent sounds. scattered ronchi HEART: regular rate and rhythm, no murmur ABDOMEN: Soft, nontender, not distended, + bowel sounds EXTREMITIES: 1+ pitting edema NEUROLOGICAL: Sedated SKIN: Warm, dry Laboratory Results - last 24 hr 09/25/19 09/25/19 09/26/19 16:26 21:59 05:43 WBC RBC Hgb Hct MCV MCH MCHC RDW Plt Count MPV Absolute Neuts (auto) Neutrophils % Lymphocytes % Monocytes % Eosinophils % Basophils % Nucleated RBC % Anticoagulation Therapy Puncture Site ABG pH ABG pCO2 at Pt Temp ABG pO2 at Pt Temp ABG HCO3 ABG O2 Sat (Measured) ABG O2 Content ABG Base Excess Randy Test O2 Delivery Device Oxygen Flow Rate Vent Mode Vent Rate Mechanical Rate Pressure Support Vent Sodium Potassium Chloride Carbon Dioxide Anion Gap BUN Creatinine Est GFR (CKD-EPI)AfAm Est GFR (CKD-EPI)NonAf POC Glucometer 97 124 114 Random Glucose Calcium Phosphorus Magnesium Total Bilirubin AST ALT Alkaline Phosphatase Total Protein Albumin 09/26/19 09/26/19 09/26/19 06:00 07:05 07:05 WBC 5.5 RBC 3.67 Hgb 11.0 Hct 34.1 MCV 92.7 MCH 29.9 MCHC 32.2 RDW 16.1 H Plt Count 80 L MPV 11.0 Absolute Neuts (auto) 4.9 Neutrophils % 88.8 H Lymphocytes % 3.4 L Monocytes % 7.6 Eosinophils % 0.0 Basophils % 0.2 Nucleated RBC % 0 Anticoagulation Therapy No Result Required. Puncture Site Right radial ABG pH 7.23 L ABG pCO2 at Pt Temp 81.0 H* ABG pO2 at Pt Temp 58.0 L ABG HCO3 32.3 H ABG O2 Sat (Measured) 86.1 L ABG O2 Content 13.3 ABG Base Excess 3.0 H Randy Test Positive O2 Delivery Device Vent Oxygen Flow Rate Yes Vent Mode No Result Required. Vent Rate 12 Mechanical Rate No Result Required. Pressure Support Vent 500 Sodium 140 Potassium 4.4 Chloride 104 Carbon Dioxide 33 H Anion Gap 3 L BUN 49.6 H Creatinine 2.0 H Est GFR (CKD-EPI)AfAm 30.46 Est GFR (CKD-EPI)NonAf 26.28 POC Glucometer Random Glucose 112 H Calcium 8.0 L Phosphorus 6.4 H Magnesium 2.8 H Total Bilirubin 0.5 AST 20 ALT 22 Alkaline Phosphatase 68 Total Protein 5.5 L Albumin 2.6 L 09/26/19 09/26/19 09:40 10:48 WBC RBC Hgb Hct MCV MCH MCHC RDW Plt Count MPV Absolute Neuts (auto) Neutrophils % Lymphocytes % Monocytes % Eosinophils % Basophils % Nucleated RBC % Anticoagulation Therapy No Result Required. Puncture Site Right radial ABG pH 7.32 L ABG pCO2 at Pt Temp 63.9 H ABG pO2 at Pt Temp 70.4 L ABG HCO3 31.6 H ABG O2 Sat (Measured) 93.1 L ABG O2 Content 19.1 ABG Base Excess 3.8 H Randy Test Positive O2 Delivery Device No Result Required. Oxygen Flow Rate 40 Vent Mode No Result Required. Vent Rate 5 Mechanical Rate Ac Pressure Support Vent No Result Required. Sodium Potassium Chloride Carbon Dioxide Anion Gap BUN Creatinine Est GFR (CKD-EPI)AfAm Est GFR (CKD-EPI)NonAf POC Glucometer 106 Random Glucose Calcium Phosphorus Magnesium Total Bilirubin AST ALT Alkaline Phosphatase Total Protein Albumin Active Medications Generic Name Dose Route Start Last Admin Trade Name Freq PRN Reason Stop Dose Admin Albuterol Sulfate 1 amp 09/25/19 10:34 Ventolin 0.083% Nebulizer Soln - NEB Q6H PRN SHORT OF BREATH/WHEEZING Apixaban 2.5 mg 09/25/19 10:00 09/26/19 09:33 Eliquis - PO 2.5 mg BID [facility] Administration Budesonide/Formoterol Fumarate 2 puff 09/25/19 10:00 09/26/19 09:38 Symbicort 80/4.5mcg - IH Not Given BID [facility] Chlorhexidine Gluconate 1 applic 09/24/19 22:00 09/25/19 21:09 Hibiclens For Decolonization - TP 1 applic HS [facility] Administration Digoxin 0.125 mg 09/25/19 12:00 09/26/19 09:33 Lanoxin - PO 0.125 mg DAILY [facility] Administration Ergocalciferol 50,000 unit 09/29/19 10:00 Drisdol - PO We@1000 [facility] Furosemide 40 mg 09/25/19 10:00 09/26/19 09:34 Lasix - PO 40 mg DAILY [facility] Administration Gabapentin 300 mg 09/25/19 14:00 09/26/19 06:28 Neurontin Oral Liquid - PO 300 mg TID [facility] Administration Hydralazine HCl 50 mg 09/25/19 06:00 09/26/19 06:28 Apresoline - PO Not Given TID [facility] Propofol 1,000,000 mcg in 100 mls @ 2.177 mls/hr 09/24/19 23:45 09/26/19 04:17 Diprivan - IVPB 18 mcg/kg/min TITR [facility] 7.838 mls/hr Administration Protocol 5 MCG/KG/MIN Fentanyl 500 mcg/ Dextrose 100 mls @ 5 mls/hr 09/25/19 11:30 09/26/19 07:40 IVPB 50 mcg/hr TITR [facility] 10 mls/hr Titration 25 MCG/HR Vancomycin HCl 1,000 mg in 250 mls @ 200 mls/hr 09/25/19 22:00 09/25/19 21:59 Vancomycin (Pre-Docked) IVPB 200 mls/hr HS [facility] Administration Protocol Cefepime HCl 1 gm/ Dextrose 100 mls @ 200 mls/hr 09/25/19 22:00 09/26/19 09:34 IVPB 200 mls/hr BID [facility] Administration Protocol Midazolam HCl 100 mg in 100 mls @ 1 mls/hr 09/25/19 16:30 09/26/19 07:45 Midazolam 100mg/100ml-0.9%Nacl IVPB 09/26/19 16:29 2 mg/hr TITR [facility] 2 mls/hr Titration Protocol 1 MG/HR Insulin Aspart 1 vial 09/25/19 16:30 09/26/19 06:28 Novolog Vial Sliding Scale - SQ Not Given ACHS [facility] Protocol Levalbuterol HCl 0.63 mg 09/25/19 14:00 09/26/19 09:40 Xopenex IH 0.63 mg RTID [facility] Administration Methylprednisolone Sodium Succinate 40 mg 09/25/19 10:00 09/26/19 09:35 Solu-Medrol - IVPUSH 40 mg Q8H-IV [facility] Administration Mupirocin 1 applic 09/24/19 22:00 09/26/19 09:33 Bactroban Ointment (For Decolonization) - NS 09/29/19 21:59 1 applic BID [facility] Administration Oseltamivir Phosphate 30 mg 09/25/19 10:00 09/26/19 09:40 Tamiflu Oral Suspension - PO 09/30/19 09:59 30 mg DAILY [facility] Administration Pantoprazole Sodium 40 mg 09/25/19 10:45 09/26/19 09:35 Protonix Iv IVPUSH 40 mg DAILY [facility] Administration Verapamil HCl 40 mg 09/25/19 13:30 09/26/19 06:28 Calan - PO 40 mg TID [facility] Administration ASSESSMENT/PLAN: 59 y/o F PMHx AFib (on Eliquis), CHF, HTN, CKD 3b, COPD/Asthma (requiring intubation in past, current smoker), prior PE, pulmonary fibrosis, TANISHA, DM, presents with SOB and admitted to ICU for AHHRF s/p intubation. #Neuro Sedated s/p Intubation -Continue propofol, Fentanyl to sedate for vent synchrony; Daily sedation vacation to access mental status #Cardio Hx of AFib (Controlled, on Eliquis), CHF (Not overloaded), HTN (Controlled) -Continue Apixaban, Lasix, Hydralazine, Digoxin - Per Cardio :verapamil 40 mg q8h, increase as tolerated by bp and HR. can push IV verapamil 2.5-5 mg q6h for breakthrough. no need for repeat echo #Pulmonary Pt had ABG with worsening resp acidosis. resp rate increased to 18 -Currently on Ventilator (50%/5/450/18); Continue supplemental O2 to maintain SpO2 88-92% -Continue Bronchodilation via xopenex, Duoneb, Symbicort. LIMIT BETA AGONIST -Continue IV SoluMedrol 40mg Q8H -Daily CXR -monitor Ppeak/Pplat #GI -Maintain OG tube -Continue PPI -travel registered nurse oncology consult placed. need to start enteral feeding #Renal Hx of CKD 3b -Monitor Cr #ID ? PNA Influenza A Positive -Continue cefepime, Aztreonam, Oseltamivir (Abx course started on 09/24) -ID consulted, appreciate recs -urine culture neg, urine legionella/strep neg, sputum with normal shelby, blood culture neg x1 #Endo Hx of DM -ISS BGMs ACHS -Continue Gabapentin #FEN -No standing fluids -Replete lytes PRN - will start enteral feed once recs provided, OG tube in place #PPx -DVT: NOAC -GI: PPI #LTD -Intubated 09/25/19 -Flores 09/25/19 Dispo:cont ICU care Visit type - Emergency Visit Emergency Visit: Yes ED Registration Date: 09/24/19 Care time: The patient presented to the Emergency Department on the above date and was hospitalized for further evaluation of their emergent condition. - New Patient This patient is new to me today: No - Critical Care Critical Care patient: Yes Total Critical Care Time (in minutes): 35 Critical Care Statement: The care of this patient involved high complexity decision making to prevent further life threatening deterioration of the patient's condition and/or to evaluate & treat vital organ system(s) failure or risk of failure. ATTENDING PHYSICIAN STATEMENT I saw and evaluated the patient. I reviewed the resident's note and discussed the case with the resident. I agree with the resident's findings and plan as documented. SUBJECTIVE: OBJECTIVE: ASSESSMENT AND PLAN:
--- NOTE | 2019-09-26 12:10 | PN ---
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, Physician Chief Complaint: Acute respiratory failure Influenza A COPD exacerbation NAM Pneumonia ARLYN History of Present Illness: Still Mechanically vented NAD HR improved - Current Medication List Current Medications: Active Medications Apixaban (Eliquis -) 2.5 mg PO BID [facility] Last Admin: 09/26/19 09:33 Dose: 2.5 mg Budesonide/Formoterol Fumarate (Symbicort 80/4.5mcg -) 2 puff IH BID [facility] Last Admin: 09/26/19 09:38 Dose: Not Given Chlorhexidine Gluconate (Hibiclens For Decolonization -) 1 applic TP HS [facility] Last Admin: 09/25/19 21:09 Dose: 1 applic Digoxin (Lanoxin -) 0.125 mg PO DAILY [facility] Last Admin: 09/26/19 09:33 Dose: 0.125 mg Ergocalciferol (Drisdol -) 50,000 unit PO We@1000 [facility] Furosemide (Lasix -) 40 mg PO DAILY [facility] Last Admin: 09/26/19 09:34 Dose: 40 mg Gabapentin (Neurontin Oral Liquid -) 300 mg PO TID [facility] Last Admin: 09/26/19 06:28 Dose: 300 mg Hydralazine HCl (Apresoline -) 50 mg PO TID [facility] Last Admin: 09/26/19 06:28 Dose: Not Given Propofol (Diprivan -) 1,000,000 mcg in 100 mls @ 2.177 mls/hr IVPB TITR [facility]; Protocol Last Admin: 09/26/19 04:17 Dose: 18 mcg/kg/min, 7.838 mls/hr Fentanyl 500 mcg/ Dextrose 100 mls @ 5 mls/hr IVPB TITR [facility] Last Titration: 09/26/19 07:40 Dose: 50 mcg/hr, 10 mls/hr Vancomycin HCl (Vancomycin (Pre-Docked)) 1,000 mg in 250 mls @ 200 mls/hr IVPB HS [facility]; Protocol Last Admin: 09/25/19 21:59 Dose: 200 mls/hr Cefepime HCl 1 gm/ Dextrose 100 mls @ 200 mls/hr IVPB BID [facility]; Protocol Last Admin: 09/26/19 09:34 Dose: 200 mls/hr Midazolam HCl (Midazolam 100mg/100ml-0.9%Nacl) 100 mg in 100 mls @ 1 mls/hr IVPB TITR [facility]; Protocol Stop: 09/26/19 16:29 Last Titration: 09/26/19 07:45 Dose: 2 mg/hr, 2 mls/hr Insulin Aspart (Novolog Vial Sliding Scale -) 1 vial SQ ACHS [facility]; Protocol Last Admin: 09/26/19 06:28 Dose: Not Given Levalbuterol HCl (Xopenex) 0.63 mg IH RTID [facility] Last Admin: 09/26/19 09:40 Dose: 0.63 mg Methylprednisolone Sodium Succinate (Solu-Medrol -) 40 mg IVPUSH Q8H-IV [facility] Last Admin: 09/26/19 09:35 Dose: 40 mg Mupirocin (Bactroban Ointment (For Decolonization) -) 1 applic NS BID [facility] Stop: 09/29/19 21:59 Last Admin: 09/26/19 09:33 Dose: 1 applic Oseltamivir Phosphate (Tamiflu Oral Suspension -) 30 mg PO DAILY [facility] Stop: 09/30/19 09:59 Last Admin: 09/26/19 09:40 Dose: 30 mg Pantoprazole Sodium (Protonix Iv) 40 mg IVPUSH DAILY [facility] Last Admin: 09/26/19 09:35 Dose: 40 mg Verapamil HCl (Calan -) 40 mg PO TID [facility] Last Admin: 09/26/19 06:28 Dose: 40 mg Verapamil HCl (Calan Injection -) 2.5 mg IVPUSH Q6H PRN PRN Reason: TACHYCARDIA - Objective Vital Signs: Vital Signs Temperature 98.0 F 09/26/19 07:00 Pulse Rate 80 09/26/19 09:43 Respiratory Rate 18 09/26/19 09:43 Blood Pressure 124/70 09/26/19 10:00 O2 Sat by Pulse Oximetry (%) 95 09/26/19 08:19 Constitutional: Yes: Well Nourished, No Distress, Calm Cardiovascular: Yes: Tachycardia Respiratory: Yes: Mechanically Ventilated, Rhonchi (diffuse) Gastrointestinal: Yes: Normal Bowel Sounds, Soft Genitourinary: Yes: Flores Present Musculoskeletal: Yes: Other (sedated) Edema: No Peripheral Pulses WNL: Yes Neurological: Yes: Other (sedated) Labs: CBC, BMP 09/26/19 07:05 09/26/19 07:05 INR, PTT INR 1.16 (0.83-1.09) H 09/24/19 16:30 Problem List - Problems (1) Influenza A Assessment/Plan: -Seen by ID -Tamiflu dosed as per renal fxn Problems reviewed: Yes Code(s): J10.1 - FLU DUE TO OTH IDENT INFLUENZA VIRUS W OTH RESP MANIFEST (2) Acute respiratory failure Assessment/Plan: -Crop Puller vent -Pulmonary on board -Bronchodilators -IV abx -ID on board -IV medrol Problems reviewed: Yes Code(s): J96.00 - ACUTE RESPIRATORY FAILURE, UNSP W HYPOXIA OR HYPERCAPNIA (3) Acute exacerbation of COPD with asthma Problems reviewed: Yes Code(s): J44.1 - CHRONIC OBSTRUCTIVE PULMONARY DISEASE W (ACUTE) EXACERBATION; J45.901 - UNSPECIFIED ASTHMA WITH (ACUTE) EXACERBATION (4) Pneumonia Assessment/Plan: -Crop Puller vent -Pulmonary on board -Bronchodilators -IV abx -ID on board -IV medrol Problems reviewed: Yes Code(s): J18.9 - PNEUMONIA, UNSPECIFIED ORGANISM Qualifiers: Pneumonia type: due to unspecified organism Laterality: unspecified laterality Lung location: unspecified part of lung Qualified Code(s): J18.9 - Pneumonia, unspecified organism (5) JOSEPH (acute kidney injury) Assessment/Plan: -Nephrology consult -monitor trend Problems reviewed: Yes Code(s): N17.9 - ACUTE KIDNEY FAILURE, UNSPECIFIED (6) Afib Assessment/Plan: -Seen by cardiology -On verapamil-continue -Continue eliquis -Will improve as pt improves metabolically Problems reviewed: Yes Code(s): I48.91 - UNSPECIFIED ATRIAL FIBRILLATION Qualifiers: Atrial fibrillation type: unspecified Qualified Code(s): I48.91 - Unspecified atrial fibrillation Assessment/Plan see problem list
[2019-09-26] MEDS: VERAPAMIL HCL 5 MG/2 ML VIAL IVPUSH PRN (13:19)
--- NOTE | 2019-09-26 17:15 | PN ---
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 (short form) - Note 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: joseph multifactorial Prerenal 2/2 acute illness, fluid deficit, being on vent is a risk factor for JOSEPH renal function continues to improve improving already underlying CKD with fluctuating renal function Acute respiratory failure Influenza A COPD exacerbation NAM Pneumonia ARLYN
[2019-09-26] MEDS: AZTREONAM 1 GM VIAL (RESTRICTED TO ID) IVPB SCH (19:56)
[2019-09-26] MEDS: CHLORHEXIDINE GLUCONATE 4% CLEANSER FOR DECOLONIZATION TP SCH (20:59)
[2019-09-26] MEDS: VANCOMYCIN 1 GRAM (PRE-DOCKED) 1,000 MG/250 ML BAG IVPB SCH (22:55)
[2019-09-27] MEDS: methylPREDNISolone NA SUCC 40 MG/1 ML VIAL IVPUSH SCH ×3 (00:59→17:37)
[2019-09-27] MEDS: VERAPAMIL HCL 5 MG/2 ML VIAL IVPUSH PRN ×3 (04:41→21:08)
[2019-09-27 05:17] LABS: ALLENS TEST POSITIVE
[2019-09-27] MEDS: hydrALAZINE HCL 50 MG TABLET (FP) PO SCH ×3 (05:22→21:30)
[2019-09-27] MEDS: VERAPAMIL HCL 40 MG TABLET PO SCH ×3 (05:22→21:30)
[2019-09-27] MEDS: GABAPENTIN 250 MG/5 ML ORAL SOLUTION, 470 ML BOTTLE PO SCH ×3 (05:22→22:08)
[2019-09-27] MEDS: PROPOFOL 1,000,000 MCG/100 ML VIAL IVPB SCH ×4 (05:33→23:40)
[2019-09-27 05:40] LABS: ARTERIAL BLD GAS O2 SATURATION 97.6 % (95-98); ARTERIAL BLOOD GAS BASE EXCESS 7.3 meq/l (-2-2); ARTERIAL BLOOD GAS PCO2 59.8 mmHg (35-45); ARTERIAL BLOOD GAS PO2 108 mmHg (80-100); ARTERIAL BLOOD GAS pH 7.37 (7.35-7.45)
[2019-09-27] MEDS: MIDAZOLAM IN 0.9 % SOD.CHLORID 100 MG/100 ML PLAST..BAG IVPB SCH (05:42)
[2019-09-27] MEDS ORDERED: PT OWN MED DRAWER 7, Y5N ONE ×7 (05:51→21:22)
[2019-09-27] MEDS: INSULIN SLIDING SCALE (NOVOLOG) 1 VIAL SQ SCH ×4 (06:06→22:12)
[2019-09-27 06:54] LABS: BASO % 0.2 % (0-2.0); HEMATOCRIT 35.8 % (32.4-45.2); HEMOGLOBIN 11.7 GM/dL (10.7-15.3); LYMPH % 8.8 % (8-40); MCH 29.7 pg (25.7-33.7); MCHC 32.7 g/dl (32.0-36.0); MEAN CELL VOLUME 91.1 fl (80-96); MEAN PLT VOLUME 11.5 fl (7.5-11.1); MONO % 6.8 % (3.8-10.2); NEUT % 84.2 % (42.8-82.8); PLATELET COUNT 87 K/MM3 (134-434); RBC 3.93 M/mm3 (3.60-5.2); RDW 16.1 % (11.6-15.6); WHITE BLOOD COUNT 3.8 K/mm3 (4.0-10.0)
[2019-09-27 07:19] LABS: ALBUMIN 2.6 g/dl (3.4-5.0); BILIRUBIN,TOTAL 0.5 mg/dL (0.2-1); BLOOD UREA NITROGEN 54.8 mg/dL (7-18); CALCIUM 7.9 mg/dL (8.5-10.1); CREATININE 1.5 mg/dL (0.55-1.3); MAGNESIUM 2.6 mg/dL (1.8-2.4); PHOSPHOROUS 4.2 mg/dL (2.5-4.9); POTASSIUM 3.9 mmol/L (3.5-5.1); TOT PROT 5.7 g/dl (6.4-8.2)
[2019-09-27] MEDS: LEVALBUTEROL HCL 0.63 MG/3 ML VIAL.NEB. IH SCH ×3 (07:40→20:09)
--- NOTE | 2019-09-27 09:37 | PN ---
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, Physician - Current Medication List Current Medications: Active Medications Apixaban (Eliquis -) 2.5 mg PO BID [facility] Last Admin: 09/26/19 20:59 Dose: 2.5 mg Budesonide/Formoterol Fumarate (Symbicort 80/4.5mcg -) 2 puff IH BID [facility] Last Admin: 09/26/19 21:01 Dose: Not Given Chlorhexidine Gluconate (Hibiclens For Decolonization -) 1 applic TP HS [facility] Last Admin: 09/26/19 20:59 Dose: 1 applic Digoxin (Lanoxin -) 0.125 mg PO DAILY [facility] Last Admin: 09/26/19 09:33 Dose: 0.125 mg Ergocalciferol (Drisdol -) 50,000 unit PO We@1000 [facility] Furosemide (Lasix -) 40 mg PO DAILY [facility] Last Admin: 09/26/19 09:34 Dose: 40 mg Gabapentin (Neurontin Oral Liquid -) 300 mg PO TID [facility] Last Admin: 09/27/19 05:22 Dose: 300 mg Hydralazine HCl (Apresoline -) 50 mg PO TID [facility] Last Admin: 09/27/19 05:22 Dose: 50 mg Propofol (Diprivan -) 1,000,000 mcg in 100 mls @ 2.177 mls/hr IVPB TITR [facility]; Protocol Last Admin: 09/27/19 05:33 Dose: 30 mcg/kg/min, 13.064 mls/hr Fentanyl 500 mcg/ Dextrose 100 mls @ 5 mls/hr IVPB TITR [facility] Last Titration: 09/26/19 13:23 Dose: 25 mcg/hr, 5 mls/hr Vancomycin HCl (Vancomycin (Pre-Docked)) 1,000 mg in 250 mls @ 200 mls/hr IVPB HS [facility]; Protocol Last Admin: 09/26/19 22:55 Dose: 200 mls/hr Cefepime HCl 1 gm/ Dextrose 100 mls @ 200 mls/hr IVPB BID [facility]; Protocol Last Admin: 09/26/19 21:00 Dose: 200 mls/hr Midazolam HCl (Midazolam 100mg/100ml-0.9%Nacl) 100 mg in 100 mls @ 1 mls/hr IVPB TITR [facility]; Protocol Last Admin: 09/27/19 05:42 Dose: 1 mg/hr, 1 mls/hr Insulin Aspart (Novolog Vial Sliding Scale -) 1 vial SQ ACHS [facility]; Protocol Last Admin: 09/27/19 06:06 Dose: Not Given Levalbuterol HCl (Xopenex) 0.63 mg IH RTID [facility] Last Admin: 09/27/19 07:40 Dose: Not Given Methylprednisolone Sodium Succinate (Solu-Medrol -) 40 mg IVPUSH Q8H-IV [facility] Last Admin: 09/27/19 00:59 Dose: 40 mg Mupirocin (Bactroban Ointment (For Decolonization) -) 1 applic NS BID [facility] Stop: 09/29/19 21:59 Last Admin: 09/26/19 20:59 Dose: 1 applic Oseltamivir Phosphate (Tamiflu Oral Suspension -) 30 mg PO DAILY [facility] Stop: 09/30/19 09:59 Last Admin: 09/26/19 09:40 Dose: 30 mg Pantoprazole Sodium (Protonix Iv) 40 mg IVPUSH DAILY [facility] Last Admin: 09/26/19 09:35 Dose: 40 mg Verapamil HCl (Calan -) 40 mg PO TID [facility] Last Admin: 09/27/19 05:22 Dose: 40 mg Verapamil HCl (Calan Injection -) 2.5 mg IVPUSH Q6H PRN PRN Reason: TACHYCARDIA Last Admin: 09/27/19 04:41 Dose: 2.5 mg - Objective Vital Signs: Vital Signs Temperature 98.4 F 09/27/19 08:00 Pulse Rate 87 09/27/19 08:00 Respiratory Rate 18 09/27/19 08:43 Blood Pressure 141/83 09/27/19 08:00 O2 Sat by Pulse Oximetry (%) 98 09/27/19 08:43 Cardiovascular: Yes: S1, S2 Respiratory: Yes: Mechanically Ventilated, Rhonchi Gastrointestinal: Yes: Normal Bowel Sounds, Soft Labs: CBC, BMP 09/27/19 05:10 09/27/19 05:10 INR, PTT INR 1.16 (0.83-1.09) H 09/24/19 16:30 Assessment/Plan - Problems (1) Influenza A Assessment/Plan: -Seen by ID -Tamiflu dosed as per renal fxn Problems reviewed: Yes Code(s): J10.1 - FLU DUE TO OTH IDENT INFLUENZA VIRUS W OTH RESP MANIFEST (2) Acute respiratory failure Assessment/Plan: -Operating Room Surgical Technician vent -Pulmonary on board -Bronchodilators -IV abx -ID on board -IV medrol Problems reviewed: Yes Code(s): J96.00 - ACUTE RESPIRATORY FAILURE, UNSP W HYPOXIA OR HYPERCAPNIA (3) Acute exacerbation of COPD with asthma Problems reviewed: Yes Code(s): J44.1 - CHRONIC OBSTRUCTIVE PULMONARY DISEASE W (ACUTE) EXACERBATION; J45.901 - UNSPECIFIED ASTHMA WITH (ACUTE) EXACERBATION (4) Pneumonia Assessment/Plan: -Operating Room Surgical Technician vent -Pulmonary on board -Bronchodilators -IV abx -ID on board -IV medrol Problems reviewed: Yes Code(s): J18.9 - PNEUMONIA, UNSPECIFIED ORGANISM Qualifiers: Pneumonia type: due to unspecified organism Laterality: unspecified laterality Lung location: unspecified part of lung Qualified Code(s): J18.9 - Pneumonia, unspecified organism (5) JOSEPH (acute kidney injury) Assessment/Plan: -Nephrology consult -monitor trend Problems reviewed: Yes Code(s): N17.9 - ACUTE KIDNEY FAILURE, UNSPECIFIED (6) Afib Assessment/Plan: -Seen by cardiology -On verapamil-continue -Continue eliquis -Will improve as pt improves metabolically Problems reviewed: Yes Code(s): I48.91 - UNSPECIFIED ATRIAL FIBRILLATION Qualifiers: Atrial fibrillation type: unspecified Qualified Code(s): I48.91 - Unspecified atrial fibrillation
[2019-09-27] MEDS ORDERED: DEXTROSE 5%-WATER 100 ML IVPB ONE ×2 (09:39→21:23)
[2019-09-27] MEDS ORDERED: CEFEPIME HCL 1 GM VIAL (RESTRICTED TO ID) ONE ×2 (09:39→21:23)
[2019-09-27] MEDS: FUROSEMIDE 40 MG TABLET (FP) PO SCH (10:00)
[2019-09-27] MEDS: DIGOXIN 0.125 MG TABLET (FP) PO SCH (10:00)
[2019-09-27] MEDS: APIXABAN 2.5 MG TABLET PO SCH ×2 (10:00→21:30)
[2019-09-27] MEDS: CEFEPIME 1 GM in DEXTROSE 5%-WATER 100 ML IVPB SCH ×2 (10:00→21:30)
[2019-09-27] MEDS: MUPIROCIN 2% TOPICAL OINTMENT FOR DECOLONIZATION NS SCH ×2 (10:00→21:58)
--- NOTE | 2019-09-27 10:30 | PN ---
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, Physician History of Present Illness: REMAINS INTUBATED SEDATED ON VENTILATOR AFEBRILE LEUKOPENIC/ THROMBOCYTOPENIC - Current Medication List Current Medications: Active Medications Apixaban (Eliquis -) 2.5 mg PO BID [facility] Last Admin: 09/26/19 20:59 Dose: 2.5 mg Budesonide/Formoterol Fumarate (Symbicort 80/4.5mcg -) 2 puff IH BID [facility] Last Admin: 09/26/19 21:01 Dose: Not Given Chlorhexidine Gluconate (Hibiclens For Decolonization -) 1 applic TP HS [facility] Last Admin: 09/26/19 20:59 Dose: 1 applic Digoxin (Lanoxin -) 0.125 mg PO DAILY [facility] Last Admin: 09/26/19 09:33 Dose: 0.125 mg Ergocalciferol (Drisdol -) 50,000 unit PO We@1000 [facility] Furosemide (Lasix -) 40 mg PO DAILY [facility] Last Admin: 09/26/19 09:34 Dose: 40 mg Gabapentin (Neurontin Oral Liquid -) 300 mg PO TID [facility] Last Admin: 09/27/19 05:22 Dose: 300 mg Hydralazine HCl (Apresoline -) 50 mg PO TID [facility] Last Admin: 09/27/19 05:22 Dose: 50 mg Propofol (Diprivan -) 1,000,000 mcg in 100 mls @ 2.177 mls/hr IVPB TITR [facility]; Protocol Last Admin: 09/27/19 05:33 Dose: 30 mcg/kg/min, 13.064 mls/hr Fentanyl 500 mcg/ Dextrose 100 mls @ 5 mls/hr IVPB TITR [facility] Last Titration: 09/26/19 13:23 Dose: 25 mcg/hr, 5 mls/hr Vancomycin HCl (Vancomycin (Pre-Docked)) 1,000 mg in 250 mls @ 200 mls/hr IVPB HS [facility]; Protocol Last Admin: 09/26/19 22:55 Dose: 200 mls/hr Cefepime HCl 1 gm/ Dextrose 100 mls @ 200 mls/hr IVPB BID [facility]; Protocol Last Admin: 09/26/19 21:00 Dose: 200 mls/hr Midazolam HCl (Midazolam 100mg/100ml-0.9%Nacl) 100 mg in 100 mls @ 1 mls/hr IVPB TITR [facility]; Protocol Last Admin: 09/27/19 05:42 Dose: 1 mg/hr, 1 mls/hr Insulin Aspart (Novolog Vial Sliding Scale -) 1 vial SQ ACHS [facility]; Protocol Last Admin: 09/27/19 06:06 Dose: Not Given Levalbuterol HCl (Xopenex) 0.63 mg IH RTID [facility] Last Admin: 09/27/19 07:40 Dose: Not Given Methylprednisolone Sodium Succinate (Solu-Medrol -) 40 mg IVPUSH Q8H-IV [facility] Last Admin: 09/27/19 00:59 Dose: 40 mg Mupirocin (Bactroban Ointment (For Decolonization) -) 1 applic NS BID [facility] Stop: 09/29/19 21:59 Last Admin: 09/26/19 20:59 Dose: 1 applic Oseltamivir Phosphate (Tamiflu Oral Suspension -) 30 mg PO DAILY [facility] Stop: 09/30/19 09:59 Last Admin: 09/26/19 09:40 Dose: 30 mg Pantoprazole Sodium (Protonix Iv) 40 mg IVPUSH DAILY [facility] Last Admin: 09/26/19 09:35 Dose: 40 mg Verapamil HCl (Calan -) 40 mg PO TID [facility] Last Admin: 09/27/19 05:22 Dose: 40 mg Verapamil HCl (Calan Injection -) 2.5 mg IVPUSH Q6H PRN PRN Reason: TACHYCARDIA Last Admin: 09/27/19 04:41 Dose: 2.5 mg - Objective Vital Signs: Vital Signs Temperature 98.4 F 09/27/19 08:00 Pulse Rate 87 09/27/19 08:00 Respiratory Rate 18 09/27/19 08:43 Blood Pressure 141/83 09/27/19 08:00 O2 Sat by Pulse Oximetry (%) 98 09/27/19 08:43 Constitutional: Yes: No Distress Cardiovascular: Yes: Regular Rate and Rhythm, S1, S2 Respiratory: Yes: Mechanically Ventilated Gastrointestinal: Yes: Normal Bowel Sounds, Soft. No: Tenderness Edema: No Labs: CBC, BMP 09/27/19 05:10 09/27/19 05:10 INR, PTT INR 1.16 (0.83-1.09) H 09/24/19 16:30 Assessment/Plan ACUTE RESPIRATORY FAILURE ACUTE INFLUENZA PNEUMONIA LEUKOPENIA/ THROMBOCYTOPENIA EXACERBATION COPD AZOTEMIA CONTINUE VENTILATORY SUPPORT EMPIRIC VANCOMYCIN/ CEFEPIME TAMIFLU
[2019-09-27] MEDS: PANTOPRAZOLE SODIUM 40 MG VIAL IVPUSH SCH (10:38)
[2019-09-27] MEDS: BUDESONIDE/FORMETEROL FUMARATE 80/4.5 mcg INHALER IH SCH ×2 (10:38→21:59)
[2019-09-27] MEDS: OSELTAMIVIR PHOSPHATE 6 MG/1 ML PO SCH (10:38)
--- NOTE | 2019-09-27 11:04 | PN ---
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, Physician Chief Complaint: Intubated tele af better VR, 90-115 History of Present Illness: She is a 59 year old female with a PMH of hypertension, AFIB, CHF, COPD, DM, sleep apnea, and CKD. She presented to the ER with SOB, respiratory failure, was intubated due to hypercapneic respiratory failure. Found with influeza, HCAP and atrial fibrillation with RVR. Echocardiogram 04/26/19 showed normal LV funciton, moderate severe AI, moderate MR, severe TR. - Current Medication List Current Medications: Active Medications Apixaban (Eliquis -) 2.5 mg PO BID [facility] Last Admin: 09/27/19 10:00 Dose: 2.5 mg Budesonide/Formoterol Fumarate (Symbicort 80/4.5mcg -) 2 puff IH BID [facility] Last Admin: 09/27/19 10:38 Dose: Not Given Chlorhexidine Gluconate (Hibiclens For Decolonization -) 1 applic TP HS [facility] Last Admin: 09/26/19 20:59 Dose: 1 applic Digoxin (Lanoxin -) 0.125 mg PO DAILY [facility] Last Admin: 09/27/19 10:00 Dose: 0.125 mg Ergocalciferol (Drisdol -) 50,000 unit PO We@1000 [facility] Furosemide (Lasix -) 40 mg PO DAILY [facility] Last Admin: 09/27/19 10:00 Dose: 40 mg Gabapentin (Neurontin Oral Liquid -) 300 mg PO TID [facility] Last Admin: 09/27/19 05:22 Dose: 300 mg Hydralazine HCl (Apresoline -) 50 mg PO TID [facility] Last Admin: 09/27/19 05:22 Dose: 50 mg Propofol (Diprivan -) 1,000,000 mcg in 100 mls @ 2.177 mls/hr IVPB TITR [facility]; Protocol Last Admin: 09/27/19 05:33 Dose: 30 mcg/kg/min, 13.064 mls/hr Fentanyl 500 mcg/ Dextrose 100 mls @ 5 mls/hr IVPB TITR [facility] Last Titration: 09/26/19 13:23 Dose: 25 mcg/hr, 5 mls/hr Vancomycin HCl (Vancomycin (Pre-Docked)) 1,000 mg in 250 mls @ 200 mls/hr IVPB HS [facility]; Protocol Last Admin: 09/26/19 22:55 Dose: 200 mls/hr Cefepime HCl 1 gm/ Dextrose 100 mls @ 200 mls/hr IVPB BID [facility]; Protocol Last Admin: 09/27/19 10:00 Dose: 200 mls/hr Midazolam HCl (Midazolam 100mg/100ml-0.9%Nacl) 100 mg in 100 mls @ 1 mls/hr IVPB TITR [facility]; Protocol Last Admin: 09/27/19 05:42 Dose: 1 mg/hr, 1 mls/hr Insulin Aspart (Novolog Vial Sliding Scale -) 1 vial SQ ACHS [facility]; Protocol Last Admin: 09/27/19 06:06 Dose: Not Given Levalbuterol HCl (Xopenex) 0.63 mg IH RTID [facility] Last Admin: 09/27/19 07:40 Dose: Not Given Methylprednisolone Sodium Succinate (Solu-Medrol -) 40 mg IVPUSH Q8H-IV [facility] Last Admin: 09/27/19 10:38 Dose: 40 mg Mupirocin (Bactroban Ointment (For Decolonization) -) 1 applic NS BID [facility] Stop: 09/29/19 21:59 Last Admin: 09/27/19 10:00 Dose: 1 applic Oseltamivir Phosphate (Tamiflu Oral Suspension -) 30 mg PO DAILY [facility] Stop: 09/30/19 09:59 Last Admin: 09/27/19 10:38 Dose: 30 mg Pantoprazole Sodium (Protonix Iv) 40 mg IVPUSH DAILY [facility] Last Admin: 09/27/19 10:38 Dose: 40 mg Verapamil HCl (Calan -) 40 mg PO TID [facility] Last Admin: 09/27/19 05:22 Dose: 40 mg Verapamil HCl (Calan Injection -) 2.5 mg IVPUSH Q6H PRN PRN Reason: TACHYCARDIA Last Admin: 09/27/19 04:41 Dose: 2.5 mg - Objective Vital Signs: Vital Signs Temperature 98.4 F 09/27/19 08:00 Pulse Rate 103 H 09/27/19 10:00 Respiratory Rate 16 09/27/19 10:00 Blood Pressure 151/86 09/27/19 10:00 O2 Sat by Pulse Oximetry (%) 98 09/27/19 08:43 Constitutional: Yes: No Distress, Calm HENT: Yes: Atraumatic, Normocephalic Neck: Yes: Trachea Midline Cardiovascular: Yes: Tachycardia, Pulse Irregular Respiratory: Yes: Mechanically Ventilated Extremities: Yes: WNL Edema: No Peripheral Pulses WNL: Yes Labs: CBC, BMP 09/27/19 05:10 09/27/19 05:10 INR, PTT INR 1.16 (0.83-1.09) H 09/24/19 16:30 Assessment/Plan She is a 59 year old female with a PMH of hypertension, AFIB, CHF, COPD, DM, sleep apnea, and CKD. She presented to the ER with SOB, respiratory failure, was intubated due to hypercapneic respiratory failure. Found with influeza, HCAP and atrial fibrillation with RVR. Echocardiogram 04/26/19 showed normal LV funciton, moderate severe AI, moderate MR, severe TR. Atrial Fibrillation -still with RVR. Changed verapamil sr to verapamil 40 mg q8h. -can push IV verapamil 2.5-5 mg q6h for breakthrough. -no need for repeat echo -increase sedation. -HR is well tolerated at this point, likely due to sepsis and hypoxic stress. try to limit beta agonists. -wean as tolerated. -will follow.
[2019-09-27] MEDS ORDERED: POTASSIUM CHLORIDE ORAL LIQUID 20 MEQ/15 ML PO ONE (11:06)
--- NOTE | 2019-09-27 11:44 | PN ---
Teaching Attending Note Name of Resident: Sommer Hickey ATTENDING PHYSICIAN STATEMENT I saw and evaluated the patient. I reviewed the resident's note and discussed the case with the resident. I agree with the resident's findings and plan as documented. SUBJECTIVE: Pt seen and examined in the ICU. Remains intubated, sedated. Peak pressures lower. OBJECTIVE: Vital Signs Period Temp Pulse Resp BP Sys/Salgado Pulse Ox Last 24 Hr 97.9 F-98.6 F 76-127 16-18 114-151/62-104 97-98 Intake & Output 09/24/19 09/25/19 09/26/19 09/27/19 23:59 23:59 23:59 23:59 Intake Total 1014.4 1776 286 Output Total 3400 2100 1350 Balance -2385.6 -324 -1064 Weight 72.575 kg 68.629 kg 68.492 kg 64.637 kg Gen: intubated, sedated Heart: RRR Lung: scattered rhonchi Abd: soft, nontender Ext: no edema CBC, BMP 09/27/19 05:10 09/27/19 05:10 Active Medications Apixaban (Eliquis -) 2.5 mg PO BID [facility] Last Admin: 09/27/19 10:00 Dose: 2.5 mg Budesonide/Formoterol Fumarate (Symbicort 80/4.5mcg -) 2 puff IH BID [facility] Last Admin: 09/27/19 10:38 Dose: Not Given Chlorhexidine Gluconate (Hibiclens For Decolonization -) 1 applic TP HS [facility] Last Admin: 09/26/19 20:59 Dose: 1 applic Digoxin (Lanoxin -) 0.125 mg PO DAILY [facility] Last Admin: 09/27/19 10:00 Dose: 0.125 mg Ergocalciferol (Drisdol -) 50,000 unit PO We@1000 [facility] Furosemide (Lasix -) 40 mg PO DAILY [facility] Last Admin: 09/27/19 10:00 Dose: 40 mg Gabapentin (Neurontin Oral Liquid -) 300 mg PO TID [facility] Last Admin: 09/27/19 05:22 Dose: 300 mg Hydralazine HCl (Apresoline -) 50 mg PO TID [facility] Last Admin: 09/27/19 05:22 Dose: 50 mg Propofol (Diprivan -) 1,000,000 mcg in 100 mls @ 2.177 mls/hr IVPB TITR [facility]; Protocol Last Admin: 09/27/19 05:33 Dose: 30 mcg/kg/min, 13.064 mls/hr Fentanyl 500 mcg/ Dextrose 100 mls @ 5 mls/hr IVPB TITR [facility] Last Titration: 09/26/19 13:23 Dose: 25 mcg/hr, 5 mls/hr Vancomycin HCl (Vancomycin (Pre-Docked)) 1,000 mg in 250 mls @ 200 mls/hr IVPB HS [facility]; Protocol Last Admin: 09/26/19 22:55 Dose: 200 mls/hr Cefepime HCl 1 gm/ Dextrose 100 mls @ 200 mls/hr IVPB BID [facility]; Protocol Last Admin: 09/27/19 10:00 Dose: 200 mls/hr Midazolam HCl (Midazolam 100mg/100ml-0.9%Nacl) 100 mg in 100 mls @ 1 mls/hr IVPB TITR [facility]; Protocol Last Admin: 09/27/19 05:42 Dose: 1 mg/hr, 1 mls/hr Insulin Aspart (Novolog Vial Sliding Scale -) 1 vial SQ ACHS [facility]; Protocol Last Admin: 09/27/19 11:23 Dose: Not Given Levalbuterol HCl (Xopenex) 0.63 mg IH RTID [facility] Last Admin: 09/27/19 07:40 Dose: Not Given Methylprednisolone Sodium Succinate (Solu-Medrol -) 40 mg IVPUSH Q8H-IV [facility] Last Admin: 09/27/19 10:38 Dose: 40 mg Mupirocin (Bactroban Ointment (For Decolonization) -) 1 applic NS BID [facility] Stop: 09/29/19 21:59 Last Admin: 09/27/19 10:00 Dose: 1 applic Oseltamivir Phosphate (Tamiflu Oral Suspension -) 30 mg PO DAILY [facility] Stop: 09/30/19 09:59 Last Admin: 09/27/19 10:38 Dose: 30 mg Pantoprazole Sodium (Protonix Iv) 40 mg IVPUSH DAILY [facility] Last Admin: 09/27/19 10:38 Dose: 40 mg Verapamil HCl (Calan -) 40 mg PO TID [facility] Last Admin: 09/27/19 05:22 Dose: 40 mg Verapamil HCl (Calan Injection -) 2.5 mg IVPUSH Q6H PRN PRN Reason: TACHYCARDIA Last Admin: 09/27/19 11:08 Dose: 2.5 mg ASSESSMENT AND PLAN: Acute on Chronic Hypoxic and Hypercapneic Respiratory Failure Influenza A Pneumonia Acute COPD Exacerbation Atrial Fibrillation with RVR LV Diastolic Dysfunction HTN DM CKD Obstructive Sleep Apnea - continue antibiotics, tamiflu - continue medrol - inhaled bronchodilators standing and PRN - O2 to keep SpO2 >90% - monitor Ppeak/Pplat - monitor ABG - rate control - continue anticoagulation - lighten sedation to assess mental status - spontaneous breathing trials as tolerated - enteral feeds - DVT/GI prophylaxis - continue ICU monitoring critical care time spent in reviewing chart, evaluating patient and formulating plan 35 min
--- NOTE | 2019-09-27 12:46 | PN ---
Physical Exam: SUBJECTIVE: Patient seen and examined at bedside. No acute events overnight. Pt off sedation, still drowsy, but arousable with physical stimuli. Following commands, squeezing hand. Per nurse, no acute events overnight. Tube feeds started. OBJECTIVE: Vital Signs Period Temp Pulse Resp BP Sys/Salgado Pulse Ox Last 24 Hr 97.9 F-98.6 F 76-118 16-18 114-151/62-104 97-98 GENERAL: Awake off sedation, but drowsy. Not spontaneously opening eyes, but is responding to commands. (hand recreational counselor, moving toes) HEENT: NCAT, OG tube in place. NECK: No JVD LUNGS: Mechanical Vent sounds. scattered ronchi HEART: regular rate and rhythm, no murmur ABDOMEN: Soft, nontender, not distended, + bowel sounds EXTREMITIES: 1+ pitting edema NEUROLOGICAL: Sedated SKIN: Warm, dry Laboratory Results - last 24 hr 09/26/19 09/26/19 09/27/19 15:48 20:32 04:53 WBC RBC Hgb Hct MCV MCH MCHC RDW Plt Count MPV Absolute Neuts (auto) Neutrophils % Lymphocytes % Monocytes % Eosinophils % Basophils % Nucleated RBC % Anticoagulation Therapy No Result Required. Puncture Site Right radial ABG pH 7.37 ABG pCO2 at Pt Temp 59.8 H ABG pO2 at Pt Temp 108 H ABG HCO3 33.9 H ABG O2 Sat (Measured) 97.6 ABG O2 Content 16.8 ABG Base Excess 7.3 H Randy Test Positive O2 Delivery Device Vent Oxygen Flow Rate 40% Vent Mode A/c Vent Rate 18 Mechanical Rate Yes PEEP 5.0 Pressure Support Vent 400 Sodium Potassium Chloride Carbon Dioxide Anion Gap BUN Creatinine Est GFR (CKD-EPI)AfAm Est GFR (CKD-EPI)NonAf POC Glucometer 132 134 Random Glucose Calcium Phosphorus Magnesium Total Bilirubin AST ALT Alkaline Phosphatase Total Protein Albumin 09/27/19 09/27/19 09/27/19 05:10 05:10 05:35 WBC 3.8 L RBC 3.93 Hgb 11.7 Hct 35.8 MCV 91.1 MCH 29.7 MCHC 32.7 RDW 16.1 H Plt Count 87 L MPV 11.5 H Absolute Neuts (auto) 3.2 Neutrophils % 84.2 H Lymphocytes % 8.8 D Monocytes % 6.8 Eosinophils % 0.0 Basophils % 0.2 Nucleated RBC % 0 Anticoagulation Therapy Puncture Site ABG pH ABG pCO2 at Pt Temp ABG pO2 at Pt Temp ABG HCO3 ABG O2 Sat (Measured) ABG O2 Content ABG Base Excess Randy Test O2 Delivery Device Oxygen Flow Rate Vent Mode Vent Rate Mechanical Rate PEEP Pressure Support Vent Sodium 142 Potassium 3.9 Chloride 104 Carbon Dioxide 34 H Anion Gap 4 L BUN 54.8 H Creatinine 1.5 H Est GFR (CKD-EPI)AfAm 43.13 Est GFR (CKD-EPI)NonAf 37.21 POC Glucometer 126 Random Glucose 136 H Calcium 7.9 L Phosphorus 4.2 Magnesium 2.6 H Total Bilirubin 0.5 AST 19 ALT 21 Alkaline Phosphatase 67 Total Protein 5.7 L Albumin 2.6 L 09/27/19 11:19 WBC RBC Hgb Hct MCV MCH MCHC RDW Plt Count MPV Absolute Neuts (auto) Neutrophils % Lymphocytes % Monocytes % Eosinophils % Basophils % Nucleated RBC % Anticoagulation Therapy Puncture Site ABG pH ABG pCO2 at Pt Temp ABG pO2 at Pt Temp ABG HCO3 ABG O2 Sat (Measured) ABG O2 Content ABG Base Excess Randy Test O2 Delivery Device Oxygen Flow Rate Vent Mode Vent Rate Mechanical Rate PEEP Pressure Support Vent Sodium Potassium Chloride Carbon Dioxide Anion Gap BUN Creatinine Est GFR (CKD-EPI)AfAm Est GFR (CKD-EPI)NonAf POC Glucometer 146 Random Glucose Calcium Phosphorus Magnesium Total Bilirubin AST ALT Alkaline Phosphatase Total Protein Albumin Active Medications Apixaban (Eliquis -) 2.5 mg PO BID [facility] Last Admin: 09/27/19 10:00 Dose: 2.5 mg Budesonide/Formoterol Fumarate (Symbicort 80/4.5mcg -) 2 puff IH BID [facility] Last Admin: 09/27/19 10:38 Dose: Not Given Chlorhexidine Gluconate (Hibiclens For Decolonization -) 1 applic TP HS [facility] Last Admin: 09/26/19 20:59 Dose: 1 applic Digoxin (Lanoxin -) 0.125 mg PO DAILY [facility] Last Admin: 09/27/19 10:00 Dose: 0.125 mg Ergocalciferol (Drisdol -) 50,000 unit PO We@1000 [facility] Furosemide (Lasix -) 40 mg PO DAILY [facility] Last Admin: 09/27/19 10:00 Dose: 40 mg Gabapentin (Neurontin Oral Liquid -) 300 mg PO TID [facility] Last Admin: 09/27/19 05:22 Dose: 300 mg Hydralazine HCl (Apresoline -) 50 mg PO TID [facility] Last Admin: 09/27/19 05:22 Dose: 50 mg Propofol (Diprivan -) 1,000,000 mcg in 100 mls @ 2.177 mls/hr IVPB TITR [facility]; Protocol Last Admin: 09/27/19 05:33 Dose: 30 mcg/kg/min, 13.064 mls/hr Fentanyl 500 mcg/ Dextrose 100 mls @ 5 mls/hr IVPB TITR [facility] Last Titration: 09/26/19 13:23 Dose: 25 mcg/hr, 5 mls/hr Vancomycin HCl (Vancomycin (Pre-Docked)) 1,000 mg in 250 mls @ 200 mls/hr IVPB HS [facility]; Protocol Last Admin: 09/26/19 22:55 Dose: 200 mls/hr Cefepime HCl 1 gm/ Dextrose 100 mls @ 200 mls/hr IVPB BID [facility]; Protocol Last Admin: 09/27/19 10:00 Dose: 200 mls/hr Midazolam HCl (Midazolam 100mg/100ml-0.9%Nacl) 100 mg in 100 mls @ 1 mls/hr IVPB TITR [facility]; Protocol Last Admin: 09/27/19 05:42 Dose: 1 mg/hr, 1 mls/hr Insulin Aspart (Novolog Vial Sliding Scale -) 1 vial SQ ACHS [facility]; Protocol Last Admin: 09/27/19 11:23 Dose: Not Given Levalbuterol HCl (Xopenex) 0.63 mg IH RTID [facility] Last Admin: 09/27/19 07:40 Dose: Not Given Methylprednisolone Sodium Succinate (Solu-Medrol -) 40 mg IVPUSH Q8H-IV [facility] Last Admin: 09/27/19 10:38 Dose: 40 mg Mupirocin (Bactroban Ointment (For Decolonization) -) 1 applic NS BID [facility] Stop: 09/29/19 21:59 Last Admin: 09/27/19 10:00 Dose: 1 applic Oseltamivir Phosphate (Tamiflu Oral Suspension -) 30 mg PO DAILY [facility] Stop: 09/30/19 09:59 Last Admin: 09/27/19 10:38 Dose: 30 mg Pantoprazole Sodium (Protonix Iv) 40 mg IVPUSH DAILY [facility] Last Admin: 09/27/19 10:38 Dose: 40 mg Verapamil HCl (Calan -) 40 mg PO TID [facility] Last Admin: 09/27/19 05:22 Dose: 40 mg Verapamil HCl (Calan Injection -) 2.5 mg IVPUSH Q6H PRN PRN Reason: TACHYCARDIA Last Admin: 09/27/19 11:08 Dose: 2.5 mg ASSESSMENT/PLAN: 59 y/o F PMHx AFib (on Eliquis), CHF, HTN, CKD 3b, COPD/Asthma (requiring intubation in past, current smoker), prior PE, pulmonary fibrosis, TANISHA, DM, presents with SOB and admitted to ICU for AHHRF s/p intubation. Neuro Sedated s/p Intubation -Continue Propofol, Fentanyl to sedate for vent synchrony; Daily sedation vacation to access mental status -Trialed off sedation today, but pt tachycardic with increased work of breathing. While off sedation, pt still not as awake and alert compared to admission. Will cont weaning trials again tomorrow. Cardio Hx of AFib (Controlled, on Eliquis), CHF (Not overloaded), HTN (Controlled) -Continue Apixaban 2.5 BID, Lasix 40, Hydralazine 50 TID, Digoxin 0.125 -Per Cardio: Verapamil 40 mg q8h, increase as tolerated by bp and HR, can push IV Verapamil 2.5-5 mg q6h PRN for breakthrough. Limit beta agonists. Repeat echo not needed. Pulmonary Acute on Chronic Hypoxic/Hypercapneic Respiratory Failure; now improving. -Currently on Ventilator (50%/5/450/18); Continue supplemental O2 to maintain SpO2 88-92% -Continue Bronchodilation via Xopenex, Duoneb, Symbicort. Limit beta-agonist given tachycardia -Continue IV SoluMedrol 40mg Q8H -Daily CXR -monitor Ppeak/Pplat GI -Maintain OG tube; tube feeds started -Continue Protonix 40 QD IVP Renal Hx of CKD 3b -Monitor Cr ID ? PNA Influenza A Positive -Continue Cefepime 1gm BID, Vanc 1gm HS, Oseltamivir 30 (Abx course started on 09/24) -ID consulted, appreciate recs -UCx neg, urine legionella/strep neg, sputum with normal shelby, blood culture neg x48h Endo Hx of DM -ISS BGMs ACHS -Continue Gabapentin FEN -No standing fluids -Replete lytes PRN -Tube feed Nepro PPx -DVT: NOAC -GI: PPI LTD -Intubated 09/25/19 -Flores 09/25/19 Dispo:cont ICU care Visit type - Emergency Visit Emergency Visit: Yes ED Registration Date: 09/24/19 Care time: The patient presented to the Emergency Department on the above date and was hospitalized for further evaluation of their emergent condition. - New Patient This patient is new to me today: No - Critical Care Critical Care patient: Yes Total Critical Care Time (in minutes): 35 Critical Care Statement: The care of this patient involved high complexity decision making to prevent further life threatening deterioration of the patient's condition and/or to evaluate & treat vital organ system(s) failure or risk of failure. ATTENDING PHYSICIAN STATEMENT I saw and evaluated the patient. I reviewed the resident's note and discussed the case with the resident. I agree with the resident's findings and plan as documented. SUBJECTIVE: OBJECTIVE: ASSESSMENT AND PLAN:
--- NOTE | 2019-09-27 13:26 | PN ---
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, Physician History of Present Illness: Pt seen and examined at bedside. She remains in the ICU. She remains intubated. - Current Medication List Current Medications: Active Medications Apixaban (Eliquis -) 2.5 mg PO BID [facility] Last Admin: 09/27/19 10:00 Dose: 2.5 mg Budesonide/Formoterol Fumarate (Symbicort 80/4.5mcg -) 2 puff IH BID [facility] Last Admin: 09/27/19 10:38 Dose: Not Given Chlorhexidine Gluconate (Hibiclens For Decolonization -) 1 applic TP HS [facility] Last Admin: 09/26/19 20:59 Dose: 1 applic Digoxin (Lanoxin -) 0.125 mg PO DAILY [facility] Last Admin: 09/27/19 10:00 Dose: 0.125 mg Ergocalciferol (Drisdol -) 50,000 unit PO We@1000 JOLENE Furosemide (Lasix -) 40 mg PO DAILY [facility] Last Admin: 09/27/19 10:00 Dose: 40 mg Gabapentin (Neurontin Oral Liquid -) 300 mg PO TID [facility] Last Admin: 09/27/19 05:22 Dose: 300 mg Hydralazine HCl (Apresoline -) 50 mg PO TID [facility] Last Admin: 09/27/19 05:22 Dose: 50 mg Propofol (Diprivan -) 1,000,000 mcg in 100 mls @ 2.177 mls/hr IVPB TITR [facility]; Protocol Last Admin: 09/27/19 05:33 Dose: 30 mcg/kg/min, 13.064 mls/hr Fentanyl 500 mcg/ Dextrose 100 mls @ 5 mls/hr IVPB TITR [facility] Last Titration: 09/26/19 13:23 Dose: 25 mcg/hr, 5 mls/hr Vancomycin HCl (Vancomycin (Pre-Docked)) 1,000 mg in 250 mls @ 200 mls/hr IVPB HS [facility]; Protocol Last Admin: 09/26/19 22:55 Dose: 200 mls/hr Cefepime HCl 1 gm/ Dextrose 100 mls @ 200 mls/hr IVPB BID [facility]; Protocol Last Admin: 09/27/19 10:00 Dose: 200 mls/hr Midazolam HCl (Midazolam 100mg/100ml-0.9%Nacl) 100 mg in 100 mls @ 1 mls/hr IVPB TITR [facility]; Protocol Last Admin: 09/27/19 05:42 Dose: 1 mg/hr, 1 mls/hr Insulin Aspart (Novolog Vial Sliding Scale -) 1 vial SQ ACHS [facility]; Protocol Last Admin: 09/27/19 11:23 Dose: Not Given Levalbuterol HCl (Xopenex) 0.63 mg IH RTID [facility] Last Admin: 09/27/19 07:40 Dose: Not Given Methylprednisolone Sodium Succinate (Solu-Medrol -) 40 mg IVPUSH Q8H-IV [facility] Last Admin: 09/27/19 10:38 Dose: 40 mg Mupirocin (Bactroban Ointment (For Decolonization) -) 1 applic NS BID [facility] Stop: 09/29/19 21:59 Last Admin: 09/27/19 10:00 Dose: 1 applic Oseltamivir Phosphate (Tamiflu Oral Suspension -) 30 mg PO DAILY [facility] Stop: 09/30/19 09:59 Last Admin: 09/27/19 10:38 Dose: 30 mg Pantoprazole Sodium (Protonix Iv) 40 mg IVPUSH DAILY [facility] Last Admin: 09/27/19 10:38 Dose: 40 mg Verapamil HCl (Calan -) 40 mg PO TID [facility] Last Admin: 09/27/19 05:22 Dose: 40 mg Verapamil HCl (Calan Injection -) 2.5 mg IVPUSH Q6H PRN PRN Reason: TACHYCARDIA Last Admin: 09/27/19 11:08 Dose: 2.5 mg - Objective Vital Signs: Vital Signs Temperature 98.2 F 09/27/19 12:00 Pulse Rate 101 H 09/27/19 12:00 Respiratory Rate 18 09/27/19 12:10 Blood Pressure 146/99 09/27/19 12:00 O2 Sat by Pulse Oximetry (%) 98 09/27/19 08:43 Constitutional: Yes: Calm Eyes: Yes: Conjunctiva Clear HENT: Yes: Atraumatic Neck: Yes: Supple Cardiovascular: Yes: S1, S2 Respiratory: Yes: Mechanically Ventilated Gastrointestinal: Yes: Soft Genitourinary: Yes: Flores Present Musculoskeletal: Yes: Muscle Weakness Edema: No Integumentary: Yes: WNL Neurological: Yes: Lethargy Labs: CBC, BMP 09/27/19 05:10 09/27/19 05:10 INR, PTT INR 1.16 (0.83-1.09) H 09/24/19 16:30 Assessment/Plan Current Medications Generic Name Dose Route Start Last Admin Trade Name Malena PRN Reason Stop Dose Admin Apixaban 2.5 mg 09/25/19 10:00 09/27/19 10:00 Eliquis - PO 2.5 mg BID JOLENE Administration Budesonide/Formoterol Fumarate 2 puff 09/25/19 10:00 09/27/19 10:38 Symbicort 80/4.5mcg - IH Not Given BID JOLENE Chlorhexidine Gluconate 1 applic 09/24/19 22:00 09/26/19 20:59 Hibiclens For Decolonization - TP 1 applic HS JOLENE Administration Digoxin 0.125 mg 09/25/19 12:00 09/27/19 10:00 Lanoxin - PO 0.125 mg DAILY [facility] Administration Ergocalciferol 50,000 unit 09/29/19 10:00 Drisdol - PO We@1000 JOLENE Furosemide 40 mg 09/25/19 10:00 09/27/19 10:00 Lasix - PO 40 mg DAILY [facility] Administration Gabapentin 300 mg 09/25/19 14:00 09/27/19 05:22 Neurontin Oral Liquid - PO 300 mg TID [facility]OLENE Administration Hydralazine HCl 50 mg 09/25/19 06:00 09/27/19 05:22 Apresoline - PO 50 mg TID [facility]OLENE Administration Propofol 1,000,000 mcg in 100 mls @ 2.177 mls/hr 09/24/19 23:45 09/27/19 05: 33 Diprivan - IVPB 30 mcg/kg/min TITR JOLENE 13.064 mls/hr Administration Protocol 5 MCG/KG/MIN Fentanyl 500 mcg/ Dextrose 100 mls @ 5 mls/hr 09/25/19 11:30 09/26/19 13:23 IVPB 25 mcg/hr TITR JOLENE 5 mls/hr Titration 25 MCG/HR Vancomycin HCl 1,000 mg in 250 mls @ 200 mls/hr 09/25/19 22:00 09/26/19 22:55 Vancomycin (Pre-Docked) IVPB 200 mls/hr HS [facility] Administration Protocol Cefepime HCl 1 gm/ Dextrose 100 mls @ 200 mls/hr 09/25/19 22:00 09/27/19 10: 00 IVPB 200 mls/hr BID [facility]ENE Administration Protocol Midazolam HCl 100 mg in 100 mls @ 1 mls/hr 09/27/19 05:45 09/27/19 05:42 Midazolam 100mg/100ml-0.9%Nacl IVPB 1 mg/hr TITR JOLENE 1 mls/hr Administration Protocol 1 MG/HR Insulin Aspart 1 vial 09/25/19 16:30 09/27/19 11:23 Novolog Vial Sliding Scale - SQ Not Given ACHS [facility] Protocol Levalbuterol HCl 0.63 mg 09/25/19 14:00 09/27/19 07:40 Xopenex IH Not Given RTID [facility] Methylprednisolone Sodium Succinate 40 mg 09/25/19 10:00 09/27/19 10:38 Solu-Medrol - IVPUSH 40 mg Q8H-IV [facility] Administration Mupirocin 1 applic 09/24/19 22:00 09/27/19 10:00 Bactroban Ointment (For Decolonization) - NS 09/29/19 21:59 1 applic BID [facility] Administration Oseltamivir Phosphate 30 mg 09/25/19 10:00 09/27/19 10:38 Tamiflu Oral Suspension - PO 09/30/19 09:59 30 mg DAILY [facility] Administration Pantoprazole Sodium 40 mg 09/25/19 10:45 09/27/19 10:38 Protonix Iv IVPUSH 40 mg DAILY [facility] Administration Verapamil HCl 40 mg 09/25/19 13:30 09/27/19 05:22 Calan - PO 40 mg TID [facility] Administration Verapamil HCl 2.5 mg 09/26/19 11:39 09/27/19 11:08 Calan Injection - IVPUSH 2.5 mg Q6H PRN Administration TACHYCARDIA Impression 1. CKD 2. CHF 3. a-fib 4. lower ext edema 5. COPD 6. active smoker 7. non compliance 8. acute resp failure 9. influenza Plan - cont lasix - monitor renal functoin - vent support - avoid nsaids - sedation vacation to assess mental status per icu
[2019-09-27] MEDS: FENTANYL INJECTION 500 MCG in DEXTROSE 5%-WATER - 90 ML IVPB SCH (17:36)
[2019-09-27] MEDS ORDERED: ACETAMINOPHEN 1000 MG/100 ML VIAL (NON FORMULARY) IVPB PRN (21:38)
[2019-09-27] MEDS: CHLORHEXIDINE GLUCONATE 4% CLEANSER FOR DECOLONIZATION TP SCH (21:58)
[2019-09-27] MEDS ORDERED: METOPROLOL TARTRATE 5 MG/5 ML VIAL IVPUSH ONE ×2 (22:10→22:49)
[2019-09-27] MEDS: VANCOMYCIN 1 GRAM (PRE-DOCKED) 1,000 MG/250 ML BAG IVPB SCH (22:12)
[2019-09-28] MEDS: methylPREDNISolone NA SUCC 40 MG/1 ML VIAL IVPUSH SCH ×3 (01:23→18:40)
[2019-09-28] MEDS: PROPOFOL 1,000,000 MCG/100 ML VIAL IVPB SCH ×2 (04:47→21:30)
[2019-09-28] MEDS ORDERED: fentaNYL CITRATE 250 MCG/5 ML VIAL ONE (05:45)
[2019-09-28] MEDS: FENTANYL INJECTION 500 MCG in DEXTROSE 5%-WATER - 90 ML IVPB SCH ×3 (05:50→12:52)
[2019-09-28] MEDS: MIDAZOLAM IN 0.9 % SOD.CHLORID 100 MG/100 ML PLAST..BAG IVPB SCH ×2 (05:51→18:45)
[2019-09-28] MEDS: hydrALAZINE HCL 50 MG TABLET (FP) PO SCH ×3 (05:51→21:10)
[2019-09-28] MEDS: VERAPAMIL HCL 40 MG TABLET PO SCH (05:51)
[2019-09-28] MEDS: GABAPENTIN 250 MG/5 ML ORAL SOLUTION, 470 ML BOTTLE PO SCH ×3 (06:01→21:11)
[2019-09-28 06:10] LABS: BASO % 0.4 % (0-2.0); HEMATOCRIT 37.6 % (32.4-45.2); HEMOGLOBIN 12.2 GM/dL (10.7-15.3); LYMPH % 6.2 % (8-40); MCH 29.5 pg (25.7-33.7); MCHC 32.5 g/dl (32.0-36.0); MEAN CELL VOLUME 90.6 fl (80-96); MEAN PLT VOLUME 12.4 fl (7.5-11.1); MONO % 9.2 % (3.8-10.2); NEUT % 84.2 % (42.8-82.8); PLATELET COUNT 95 K/MM3 (134-434); RBC 4.15 M/mm3 (3.60-5.2); RDW 15.8 % (11.6-15.6); WHITE BLOOD COUNT 3.8 K/mm3 (4.0-10.0)
[2019-09-28] MEDS: INSULIN SLIDING SCALE (NOVOLOG) 1 VIAL SQ SCH ×4 (06:14→22:48)
[2019-09-28 06:39] LABS: ALBUMIN 2.4 g/dl (3.4-5.0); BILIRUBIN,TOTAL 0.6 mg/dL (0.2-1); CALCIUM 8.1 mg/dL (8.5-10.1); CREATININE 1.6 mg/dL (0.55-1.3); MAGNESIUM 2.7 mg/dL (1.8-2.4); PHOSPHOROUS 4.1 mg/dL (2.5-4.9); POTASSIUM 4.1 mmol/L (3.5-5.1); TOT PROT 5.6 g/dl (6.4-8.2)
[2019-09-28] MEDS ORDERED: PT OWN MED DRAWER 7, Y5N ONE ×3 (09:24→20:53)
[2019-09-28] MEDS ORDERED: DEXTROSE 5%-WATER 100 ML IVPB ONE ×2 (09:25→20:48)
[2019-09-28] MEDS ORDERED: CEFEPIME HCL 1 GM VIAL (RESTRICTED TO ID) ONE ×2 (09:25→20:48)
[2019-09-28] MEDS: LEVALBUTEROL HCL 0.63 MG/3 ML VIAL.NEB. IH SCH ×3 (09:30→20:55)
[2019-09-28] MEDS: CEFEPIME 1 GM in DEXTROSE 5%-WATER 100 ML IVPB SCH ×2 (09:38→21:11)
[2019-09-28] MEDS: PANTOPRAZOLE SODIUM 40 MG VIAL IVPUSH SCH (09:38)
[2019-09-28] MEDS: DIGOXIN 0.125 MG TABLET (FP) PO SCH (09:39)
[2019-09-28] MEDS: FUROSEMIDE 40 MG TABLET (FP) PO SCH (09:39)
[2019-09-28] MEDS: APIXABAN 2.5 MG TABLET PO SCH ×2 (09:40→21:10)
[2019-09-28] MEDS: VERAPAMIL HCL 5 MG/2 ML VIAL IVPUSH PRN (10:06)
[2019-09-28] MEDS: OSELTAMIVIR PHOSPHATE 6 MG/1 ML PO SCH (10:07)
[2019-09-28] MEDS ORDERED: METOPROLOL TARTRATE 5 MG/5 ML VIAL IVPUSH ONE (10:15)
[2019-09-28] MEDS ORDERED: METOPROLOL TARTRATE 5 MG/5 ML VIAL ONE (10:18)
--- NOTE | 2019-09-28 10:44 | PN ---
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, Physician Chief Complaint: Acute respiratory failure Influenza A COPD exacerbation NAM Pneumonia ARLYN History of Present Illness: Still Mechanically vented NAD HR improved - Current Medication List Current Medications: Active Medications Acetaminophen (Ofirmev Injection -) 1,000 mg IVPB Q6H PRN PRN Reason: FEVER Last Admin: 09/27/19 21:52 Dose: 1,000 mg Apixaban (Eliquis -) 2.5 mg PO BID [facility] Last Admin: 09/28/19 09:40 Dose: 2.5 mg Budesonide/Formoterol Fumarate (Symbicort 80/4.5mcg -) 2 puff IH BID [facility] Last Admin: 09/27/19 21:59 Dose: Not Given Chlorhexidine Gluconate (Hibiclens For Decolonization -) 1 applic TP HS [facility] Last Admin: 09/27/19 21:58 Dose: 1 applic Digoxin (Lanoxin -) 0.125 mg PO DAILY [facility] Last Admin: 09/28/19 09:39 Dose: 0.125 mg Ergocalciferol (Drisdol -) 50,000 unit PO We@1000 JOLENE Furosemide (Lasix -) 40 mg PO DAILY [facility] Last Admin: 09/28/19 09:39 Dose: 40 mg Gabapentin (Neurontin Oral Liquid -) 300 mg PO TID [facility] Last Admin: 09/28/19 06:01 Dose: 300 mg Hydralazine HCl (Apresoline -) 50 mg PO TID [facility] Last Admin: 09/28/19 05:51 Dose: 50 mg Propofol (Diprivan -) 1,000,000 mcg in 100 mls @ 2.177 mls/hr IVPB TITR [facility]; Protocol Last Titration: 09/28/19 08:00 Dose: 0 mcg/kg/min, 0 mls/hr Fentanyl 500 mcg/ Dextrose 100 mls @ 5 mls/hr IVPB TITR [facility] Last Titration: 09/28/19 08:00 Dose: 0 mcg/hr, 0 mls/hr Vancomycin HCl (Vancomycin (Pre-Docked)) 1,000 mg in 250 mls @ 200 mls/hr IVPB HS [facility]; Protocol Last Admin: 09/27/19 22:12 Dose: 200 mls/hr Cefepime HCl 1 gm/ Dextrose 100 mls @ 200 mls/hr IVPB BID [facility]; Protocol Last Admin: 09/28/19 09:38 Dose: 200 mls/hr Midazolam HCl (Midazolam 100mg/100ml-0.9%Nacl) 100 mg in 100 mls @ 1 mls/hr IVPB TITR [facility]; Protocol Last Infusion: 09/28/19 08:00 Dose: 0 mg/hr, 0 mls/hr Insulin Aspart (Novolog Vial Sliding Scale -) 1 vial SQ ACHS [facility]; Protocol Last Admin: 09/28/19 06:14 Dose: Not Given Levalbuterol HCl (Xopenex) 0.63 mg IH RTID [facility] Last Admin: 09/28/19 09:30 Dose: 0.63 mg Methylprednisolone Sodium Succinate (Solu-Medrol -) 40 mg IVPUSH Q8H-IV [facility] Last Admin: 09/28/19 09:38 Dose: 40 mg Mupirocin (Bactroban Ointment (For Decolonization) -) 1 applic NS BID [facility] Stop: 09/29/19 21:59 Last Admin: 09/27/19 21:58 Dose: 1 applic Oseltamivir Phosphate (Tamiflu Oral Suspension -) 30 mg PO DAILY [facility] Stop: 09/30/19 09:59 Last Admin: 09/28/19 10:07 Dose: 30 mg Pantoprazole Sodium (Protonix Iv) 40 mg IVPUSH DAILY [facility] Last Admin: 09/28/19 09:38 Dose: 40 mg Verapamil HCl (Calan -) 40 mg PO TID [facility] Last Admin: 09/28/19 05:51 Dose: 40 mg Verapamil HCl (Calan Injection -) 2.5 mg IVPUSH Q6H PRN PRN Reason: TACHYCARDIA Last Admin: 09/28/19 10:06 Dose: 2.5 mg - Objective Vital Signs: Vital Signs Temperature 99.2 F 09/28/19 08:00 Pulse Rate 140 H 09/28/19 10:21 Respiratory Rate 20 09/28/19 09:15 Blood Pressure 159/86 09/28/19 10:21 O2 Sat by Pulse Oximetry (%) 97 09/28/19 01:00 Constitutional: Yes: Well Nourished, No Distress, Calm Cardiovascular: Yes: Regular Rate and Rhythm Respiratory: Yes: Mechanically Ventilated, Rhonchi (diffuse) Gastrointestinal: Yes: Normal Bowel Sounds, Soft Genitourinary: Yes: Flores Present Musculoskeletal: Yes: WNL Extremities: Yes: WNL Edema: No Peripheral Pulses WNL: Yes Neurological: Yes: Other (sedated) Labs: CBC, BMP 09/28/19 05:40 09/28/19 05:40 INR, PTT INR 1.16 (0.83-1.09) H 09/24/19 16:30 Problem List - Problems (1) Influenza A Assessment/Plan: -Seen by ID -Finished Tamiflu Problems reviewed: Yes Code(s): J10.1 - FLU DUE TO OTH IDENT INFLUENZA VIRUS W OTH RESP MANIFEST (2) Acute respiratory failure Assessment/Plan: -Cook Short Order vent -Pulmonary on board -Bronchodilators -IV abx -ID on board -IV medrol Problems reviewed: Yes Code(s): J96.00 - ACUTE RESPIRATORY FAILURE, UNSP W HYPOXIA OR HYPERCAPNIA (3) Acute exacerbation of COPD with asthma Problems reviewed: Yes Code(s): J44.1 - CHRONIC OBSTRUCTIVE PULMONARY DISEASE W (ACUTE) EXACERBATION; J45.901 - UNSPECIFIED ASTHMA WITH (ACUTE) EXACERBATION (4) Pneumonia Assessment/Plan: -Cook Short Order vent -Pulmonary on board -Bronchodilators -IV abx -ID on board -IV medrol Problems reviewed: Yes Code(s): J18.9 - PNEUMONIA, UNSPECIFIED ORGANISM Qualifiers: Pneumonia type: due to unspecified organism Laterality: unspecified laterality Lung location: unspecified part of lung Qualified Code(s): J18.9 - Pneumonia, unspecified organism (5) JOSEPH (acute kidney injury) Assessment/Plan: -Nephrology consult -monitor trend Problems reviewed: Yes Code(s): N17.9 - ACUTE KIDNEY FAILURE, UNSPECIFIED (6) Afib Assessment/Plan: -Seen by cardiology -On verapamil-continue -Continue eliquis -Will improve as pt improves metabolically Problems reviewed: Yes Code(s): I48.91 - UNSPECIFIED ATRIAL FIBRILLATION Qualifiers: Atrial fibrillation type: unspecified Qualified Code(s): I48.91 - Unspecified atrial fibrillation
[2019-09-28] MEDS ORDERED: LABETALOL HCL 5 MG/1 ML (100MG/20 ML VIAL) ONE (11:12)
[2019-09-28] MEDS ORDERED: LABETALOL HCL 5 MG/1 ML (100MG/20 ML VIAL) IVPUSH ONE (11:15)
[2019-09-28] MEDS ORDERED: VERAPAMIL HCL 40 MG TABLET NGT SCH (11:20)
--- NOTE | 2019-09-28 11:29 | PN ---
Teaching Attending Note Name of Resident: Christine Patrick ATTENDING PHYSICIAN STATEMENT I saw and evaluated the patient. I reviewed the resident's note and discussed the case with the resident. I agree with the resident's findings and plan as documented. SUBJECTIVE: Pt seen and examined in the ICU. Remains intubated, arousable off sedation but heart rates rapid. OBJECTIVE: Vital Signs Period Temp Pulse Resp BP Sys/Salgado Pulse Ox Last 24 Hr 98.2 F-99.8 F 88-165 15-21 120-159/69-116 97-97 Intake & Output 09/25/19 09/26/19 09/27/19 09/28/19 23:59 23:59 23:59 23:59 Intake Total 1014.4 1776 555.4 1035.5 Output Total 3400 2100 2350 Balance -2385.6 -324 -1794.6 1035.5 Weight 68.629 kg 68.492 kg 64.637 kg 64.637 kg Gen: intubated, arousable Heart: tachycardic, irregular Lung: decreased breath sounds at the bases Abd: soft, nontender Ext: + edema CBC, BMP 09/28/19 05:40 09/28/19 05:40 Active Medications Acetaminophen (Ofirmev Injection -) 1,000 mg IVPB Q6H PRN PRN Reason: FEVER Last Admin: 09/27/19 21:52 Dose: 1,000 mg Apixaban (Eliquis -) 2.5 mg PO BID [facility] Last Admin: 09/28/19 09:40 Dose: 2.5 mg Budesonide/Formoterol Fumarate (Symbicort 80/4.5mcg -) 2 puff IH BID [facility] Last Admin: 09/27/19 21:59 Dose: Not Given Chlorhexidine Gluconate (Hibiclens For Decolonization -) 1 applic TP HS [facility] Last Admin: 09/27/19 21:58 Dose: 1 applic Digoxin (Lanoxin -) 0.125 mg PO DAILY [facility] Last Admin: 09/28/19 09:39 Dose: 0.125 mg Ergocalciferol (Drisdol -) 50,000 unit PO We@1000 [facility] Furosemide (Lasix -) 40 mg PO DAILY [facility] Last Admin: 09/28/19 09:39 Dose: 40 mg Gabapentin (Neurontin Oral Liquid -) 300 mg PO TID [facility] Last Admin: 09/28/19 06:01 Dose: 300 mg Hydralazine HCl (Apresoline -) 50 mg PO TID [facility] Last Admin: 09/28/19 05:51 Dose: 50 mg Propofol (Diprivan -) 1,000,000 mcg in 100 mls @ 2.177 mls/hr IVPB TITR [facility]; Protocol Last Titration: 09/28/19 08:00 Dose: 0 mcg/kg/min, 0 mls/hr Fentanyl 500 mcg/ Dextrose 100 mls @ 5 mls/hr IVPB TITR [facility] Last Titration: 09/28/19 08:00 Dose: 0 mcg/hr, 0 mls/hr Vancomycin HCl (Vancomycin (Pre-Docked)) 1,000 mg in 250 mls @ 200 mls/hr IVPB HS [facility]; Protocol Last Admin: 09/27/19 22:12 Dose: 200 mls/hr Cefepime HCl 1 gm/ Dextrose 100 mls @ 200 mls/hr IVPB BID [facility]; Protocol Last Admin: 09/28/19 09:38 Dose: 200 mls/hr Midazolam HCl (Midazolam 100mg/100ml-0.9%Nacl) 100 mg in 100 mls @ 1 mls/hr IVPB TITR [facility]; Protocol Last Infusion: 09/28/19 08:00 Dose: 0 mg/hr, 0 mls/hr Insulin Aspart (Novolog Vial Sliding Scale -) 1 vial SQ ACHS [facility]; Protocol Last Admin: 09/28/19 06:14 Dose: Not Given Levalbuterol HCl (Xopenex) 0.63 mg IH RTID [facility] Last Admin: 09/28/19 09:30 Dose: 0.63 mg Methylprednisolone Sodium Succinate (Solu-Medrol -) 40 mg IVPUSH Q8H-IV [facility] Last Admin: 09/28/19 09:38 Dose: 40 mg Mupirocin (Bactroban Ointment (For Decolonization) -) 1 applic NS BID [facility] Stop: 09/29/19 21:59 Last Admin: 09/27/19 21:58 Dose: 1 applic Oseltamivir Phosphate (Tamiflu Oral Suspension -) 30 mg PO DAILY [facility] Stop: 09/30/19 09:59 Last Admin: 09/28/19 10:07 Dose: 30 mg Pantoprazole Sodium (Protonix Iv) 40 mg IVPUSH DAILY [facility] Last Admin: 09/28/19 09:38 Dose: 40 mg Verapamil HCl (Calan Injection -) 2.5 mg IVPUSH Q6H PRN PRN Reason: TACHYCARDIA Last Admin: 09/28/19 10:06 Dose: 2.5 mg Verapamil HCl (Calan -) 80 mg PO TID [facility] Verapamil HCl (Calan -) 40 mg NGT ONCE ONE Stop: 09/28/19 11:21 ASSESSMENT AND PLAN: Acute on Chronic Hypoxic and Hypercapneic Respiratory Failure Influenza A Pneumonia Acute COPD Exacerbation Atrial Fibrillation with RVR LV Diastolic Dysfunction HTN DM CKD Obstructive Sleep Apnea - continue antibiotics, tamiflu - continue medrol - inhaled bronchodilators standing and PRN - O2 to keep SpO2 >90% - monitor Ppeak/Pplat - rate control - continue anticoagulation - daily sedation vacations to assess mental status - spontaneous breathing trials as tolerated - enteral feeds - DVT/GI prophylaxis - continue ICU monitoring critical care time spent in reviewing chart, evaluating patient and formulating plan 35 min
[2019-09-28] MEDS ORDERED: VERAPAMIL HCL 40 MG TABLET NGT ONE (11:30)
--- NOTE | 2019-09-28 11:55 | PN ---
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, Physician History of Present Illness: seen and examined today in nad. intubated, mildly responsive. - Current Medication List Current Medications: Active Medications Acetaminophen (Ofirmev Injection -) 1,000 mg IVPB Q6H PRN PRN Reason: FEVER Last Admin: 09/27/19 21:52 Dose: 1,000 mg Apixaban (Eliquis -) 2.5 mg PO BID [facility] Last Admin: 09/28/19 09:40 Dose: 2.5 mg Budesonide/Formoterol Fumarate (Symbicort 80/4.5mcg -) 2 puff IH BID [facility] Last Admin: 09/27/19 21:59 Dose: Not Given Chlorhexidine Gluconate (Hibiclens For Decolonization -) 1 applic TP HS [facility] Last Admin: 09/27/19 21:58 Dose: 1 applic Digoxin (Lanoxin -) 0.125 mg PO DAILY [facility] Last Admin: 09/28/19 09:39 Dose: 0.125 mg Ergocalciferol (Drisdol -) 50,000 unit PO We@1000 [facility] Furosemide (Lasix -) 40 mg PO DAILY [facility] Last Admin: 09/28/19 09:39 Dose: 40 mg Gabapentin (Neurontin Oral Liquid -) 300 mg PO TID [facility] Last Admin: 09/28/19 06:01 Dose: 300 mg Hydralazine HCl (Apresoline -) 50 mg PO TID [facility] Last Admin: 09/28/19 05:51 Dose: 50 mg Propofol (Diprivan -) 1,000,000 mcg in 100 mls @ 2.177 mls/hr IVPB TITR [facility]; Protocol Last Titration: 09/28/19 08:00 Dose: 0 mcg/kg/min, 0 mls/hr Fentanyl 500 mcg/ Dextrose 100 mls @ 5 mls/hr IVPB TITR [facility] Last Titration: 09/28/19 08:00 Dose: 0 mcg/hr, 0 mls/hr Vancomycin HCl (Vancomycin (Pre-Docked)) 1,000 mg in 250 mls @ 200 mls/hr IVPB HS [facility]; Protocol Last Admin: 09/27/19 22:12 Dose: 200 mls/hr Cefepime HCl 1 gm/ Dextrose 100 mls @ 200 mls/hr IVPB BID [facility]; Protocol Last Admin: 09/28/19 09:38 Dose: 200 mls/hr Midazolam HCl (Midazolam 100mg/100ml-0.9%Nacl) 100 mg in 100 mls @ 1 mls/hr IVPB TITR [facility]; Protocol Last Infusion: 09/28/19 08:00 Dose: 0 mg/hr, 0 mls/hr Insulin Aspart (Novolog Vial Sliding Scale -) 1 vial SQ ACHS [facility]; Protocol Last Admin: 09/28/19 06:14 Dose: Not Given Levalbuterol HCl (Xopenex) 0.63 mg IH RTID [facility] Last Admin: 09/28/19 09:30 Dose: 0.63 mg Methylprednisolone Sodium Succinate (Solu-Medrol -) 40 mg IVPUSH Q8H-IV [facility] Last Admin: 09/28/19 09:38 Dose: 40 mg Mupirocin (Bactroban Ointment (For Decolonization) -) 1 applic NS BID [facility] Stop: 09/29/19 21:59 Last Admin: 09/27/19 21:58 Dose: 1 applic Oseltamivir Phosphate (Tamiflu Oral Suspension -) 30 mg PO DAILY [facility] Stop: 09/30/19 09:59 Last Admin: 09/28/19 10:07 Dose: 30 mg Pantoprazole Sodium (Protonix Iv) 40 mg IVPUSH DAILY [facility] Last Admin: 09/28/19 09:38 Dose: 40 mg Verapamil HCl (Calan Injection -) 2.5 mg IVPUSH Q6H PRN PRN Reason: TACHYCARDIA Last Admin: 09/28/19 10:06 Dose: 2.5 mg Verapamil HCl (Calan -) 80 mg NGT TID [facility] - Objective Vital Signs: Vital Signs Temperature 98.0 F 09/28/19 08:00 Pulse Rate 140 H 09/28/19 10:21 Respiratory Rate 19 09/28/19 10:00 Blood Pressure 159/86 09/28/19 10:21 O2 Sat by Pulse Oximetry (%) 97 09/28/19 01:00 Constitutional: Yes: No Distress, Calm Eyes: Yes: Conjunctiva Clear, EOM Intact HENT: Yes: Atraumatic, Normocephalic Neck: Yes: Supple, Trachea Midline Cardiovascular: Yes: Tachycardia, Pulse Irregular, S1, S2. No: Regular Rate and Rhythm, Bradycardia, Bruit, JVD, Gallop, Murmur, Rub, S3, S4, Varicosities Respiratory: Yes: Regular, Intubated, Mechanically Ventilated, Rhonchi, Wheezes. No: SOB Gastrointestinal: Yes: Normal Bowel Sounds, Soft Extremities: Yes: WNL Edema: No Peripheral Pulses WNL: Yes Peripheral Pulses: Left Doralis Pedis: 2+, Right Dorsalis Pedis: 2+ Neurological: Yes: Alert Psychiatric: Yes: Alert Labs: CBC, BMP 09/28/19 05:40 09/28/19 05:40 INR, PTT INR 1.16 (0.83-1.09) H 09/24/19 16:30 - ....Imaging Chest X-ray: Report Reviewed, Image Reviewed EKG: Report Reviewed, Image Reviewed Other: Report Reviewed, Image Reviewed (tele-AFib with RVR) Assessment/Plan She is a 59 year old female with a PMH of hypertension, AFIB, CHF, COPD, DM, sleep apnea, and CKD. She presented to the ER with SOB, respiratory failure, was intubated due to hypercapneic respiratory failure. Found with influeza, HCAP and atrial fibrillation with RVR. Echocardiogram 04/26/19 showed normal LV funciton, moderate severe AI, moderate MR, severe TR. Atrial Fibrillation -with RVR in setting of flu and possible PNA -h/o Pafib with sinus andrea when in sinus -expect HR to improve as improves from other conditions -uptitrate verapamil po -cont IV verapamil 2.5-5 mg q6h prn -no need for repeat echo -wean vent as tolerated. -cont tele monitoring in ICU
--- NOTE | 2019-09-28 12:33 | PN ---
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, Physician History of Present Illness: Pt seen and examined at bedside. She remains in the ICU. SHe remains intubated. - Current Medication List Current Medications: Active Medications Acetaminophen (Ofirmev Injection -) 1,000 mg IVPB Q6H PRN PRN Reason: FEVER Last Admin: 09/27/19 21:52 Dose: 1,000 mg Apixaban (Eliquis -) 2.5 mg PO BID [facility] Last Admin: 09/28/19 09:40 Dose: 2.5 mg Budesonide/Formoterol Fumarate (Symbicort 80/4.5mcg -) 2 puff IH BID [facility] Last Admin: 09/27/19 21:59 Dose: Not Given Chlorhexidine Gluconate (Hibiclens For Decolonization -) 1 applic TP HS [facility] Last Admin: 09/27/19 21:58 Dose: 1 applic Digoxin (Lanoxin -) 0.125 mg PO DAILY [facility] Last Admin: 09/28/19 09:39 Dose: 0.125 mg Ergocalciferol (Drisdol -) 50,000 unit PO We@1000 [facility] Furosemide (Lasix -) 40 mg PO DAILY [facility] Last Admin: 09/28/19 09:39 Dose: 40 mg Gabapentin (Neurontin Oral Liquid -) 300 mg PO TID [facility] Last Admin: 09/28/19 06:01 Dose: 300 mg Hydralazine HCl (Apresoline -) 50 mg PO TID [facility] Last Admin: 09/28/19 05:51 Dose: 50 mg Propofol (Diprivan -) 1,000,000 mcg in 100 mls @ 2.177 mls/hr IVPB TITR [facility]; Protocol Last Titration: 09/28/19 08:00 Dose: 0 mcg/kg/min, 0 mls/hr Fentanyl 500 mcg/ Dextrose 100 mls @ 5 mls/hr IVPB TITR [facility] Last Titration: 09/28/19 08:00 Dose: 0 mcg/hr, 0 mls/hr Vancomycin HCl (Vancomycin (Pre-Docked)) 1,000 mg in 250 mls @ 200 mls/hr IVPB HS [facility]; Protocol Last Admin: 09/27/19 22:12 Dose: 200 mls/hr Cefepime HCl 1 gm/ Dextrose 100 mls @ 200 mls/hr IVPB BID [facility]; Protocol Last Admin: 01/21/20 09:38 Dose: 200 mls/hr Midazolam HCl (Midazolam 100mg/100ml-0.9%Nacl) 100 mg in 100 mls @ 1 mls/hr IVPB TITR [facility]; Protocol Last Infusion: 09/28/19 08:00 Dose: 0 mg/hr, 0 mls/hr Insulin Aspart (Novolog Vial Sliding Scale -) 1 vial SQ ACHS [facility]; Protocol Last Admin: 09/28/19 06:14 Dose: Not Given Levalbuterol HCl (Xopenex) 0.63 mg IH RTID [facility] Last Admin: 09/28/19 09:30 Dose: 0.63 mg Methylprednisolone Sodium Succinate (Solu-Medrol -) 40 mg IVPUSH Q8H-IV [facility] Last Admin: 09/28/19 09:38 Dose: 40 mg Mupirocin (Bactroban Ointment (For Decolonization) -) 1 applic NS BID [facility] Stop: 09/29/19 21:59 Last Admin: 09/27/19 21:58 Dose: 1 applic Oseltamivir Phosphate (Tamiflu Oral Suspension -) 30 mg PO DAILY [facility] Stop: 09/30/19 09:59 Last Admin: 09/28/19 10:07 Dose: 30 mg Pantoprazole Sodium (Protonix Iv) 40 mg IVPUSH DAILY [facility] Last Admin: 09/28/19 09:38 Dose: 40 mg Verapamil HCl (Calan Injection -) 2.5 mg IVPUSH Q6H PRN PRN Reason: TACHYCARDIA Last Admin: 09/28/19 10:06 Dose: 2.5 mg Verapamil HCl (Calan -) 80 mg NGT TID [facility] - Objective Vital Signs: Vital Signs Temperature 98.0 F 09/28/19 10:00 Pulse Rate 133 H 09/28/19 12:00 Respiratory Rate 18 09/28/19 12:00 Blood Pressure 168/89 09/28/19 12:00 O2 Sat by Pulse Oximetry (%) 97 09/28/19 01:00 Constitutional: Yes: Calm Eyes: Yes: Conjunctiva Clear Cardiovascular: Yes: S1, S2 Respiratory: Yes: Mechanically Ventilated Gastrointestinal: Yes: Soft Genitourinary: Yes: Flores Present Musculoskeletal: Yes: Muscle Weakness Edema: No Neurological: Yes: Other (awake) Labs: CBC, BMP 09/28/19 05:40 09/28/19 05:40 INR, PTT INR 1.16 (0.83-1.09) H 09/24/19 16:30 - ....Imaging Chest X-ray: Report Reviewed Assessment/Plan Current Medications Generic Name Dose Route Start Last Admin Trade Name Freq PRN Reason Stop Dose Admin Acetaminophen 1,000 mg 09/27/19 21:38 09/27/19 21:52 Ofirmev Injection - IVPB 1,000 mg Q6H PRN Administration FEVER Apixaban 2.5 mg 09/25/19 10:00 09/28/19 09:40 Eliquis - PO 2.5 mg BID [facility] Administration Budesonide/Formoterol Fumarate 2 puff 09/25/19 10:00 09/27/19 21:59 Symbicort 80/4.5mcg - IH Not Given BID [facility] Chlorhexidine Gluconate 1 applic 09/24/19 22:00 09/27/19 21:58 Hibiclens For Decolonization - TP 1 applic HS [facility] Administration Digoxin 0.125 mg 09/25/19 12:00 09/28/19 09:39 Lanoxin - PO 0.125 mg DAILY [facility] Administration Ergocalciferol 50,000 unit 09/29/19 10:00 Drisdol - PO We@1000 [facility] Furosemide 40 mg 09/25/19 10:00 09/28/19 09:39 Lasix - PO 40 mg DAILY [facility] Administration Gabapentin 300 mg 09/25/19 14:00 09/28/19 06:01 Neurontin Oral Liquid - PO 300 mg TID [facility] Administration Hydralazine HCl 50 mg 09/25/19 06:00 09/28/19 05:51 Apresoline - PO 50 mg TID [facility] Administration Propofol 1,000,000 mcg in 100 mls @ 2.177 mls/hr 09/24/19 23:45 09/28/19 08: 00 Diprivan - IVPB 0 mcg/kg/min TITR [facility] 0 mls/hr Titration Protocol 5 MCG/KG/MIN Fentanyl 500 mcg/ Dextrose 100 mls @ 5 mls/hr 09/25/19 11:30 09/28/19 08:00 IVPB 0 mcg/hr TITR [facility] 0 mls/hr Titration 25 MCG/HR Vancomycin HCl 1,000 mg in 250 mls @ 200 mls/hr 09/25/19 22:00 09/27/19 22:12 Vancomycin (Pre-Docked) IVPB 200 mls/hr HS [facility] Administration Protocol Cefepime HCl 1 gm/ Dextrose 100 mls @ 200 mls/hr 09/25/19 22:00 09/28/19 09: 38 IVPB 200 mls/hr BID [facility] Administration Protocol Midazolam HCl 100 mg in 100 mls @ 1 mls/hr 09/27/19 05:45 09/28/19 08:00 Midazolam 100mg/100ml-0.9%Nacl IVPB 0 mg/hr TITR [facility] 0 mls/hr Infusion Protocol 1 MG/HR Insulin Aspart 1 vial 09/25/19 16:30 09/28/19 06:14 Novolog Vial Sliding Scale - SQ Not Given ACHS [facility] Protocol Levalbuterol HCl 0.63 mg 09/25/19 14:00 09/28/19 09:30 Xopenex IH 0.63 mg RTID [facility] Administration Methylprednisolone Sodium Succinate 40 mg 09/25/19 10:00 09/28/19 09:38 Solu-Medrol - IVPUSH 40 mg Q8H-IV [facility] Administration Mupirocin 1 applic 09/24/19 22:00 09/27/19 21:58 Bactroban Ointment (For Decolonization) - NS 09/29/19 21:59 1 applic BID [facility] Administration Oseltamivir Phosphate 30 mg 09/25/19 10:00 09/28/19 10:07 Tamiflu Oral Suspension - PO 09/30/19 09:59 30 mg DAILY [facility] Administration Pantoprazole Sodium 40 mg 09/25/19 10:45 09/28/19 09:38 Protonix Iv IVPUSH 40 mg DAILY [facility] Administration Verapamil HCl 2.5 mg 09/26/19 11:39 09/28/19 10:06 Calan Injection - IVPUSH 2.5 mg Q6H PRN Administration TACHYCARDIA Verapamil HCl 80 mg 09/28/19 11:36 Calan - NGT TID [facility] Impression 1. CKD 2. CHF 3. a-fib 4. lower ext edema 5. COPD 6. active smoker 7. non compliance 8. acute resp failure 9. influenza Plan - vent support - monitor renal function - cont lasix - avoid nsaids
[2019-09-28] MEDS: BUDESONIDE/FORMETEROL FUMARATE 80/4.5 mcg INHALER IH SCH ×2 (12:52→22:48)
[2019-09-28] MEDS: MUPIROCIN 2% TOPICAL OINTMENT FOR DECOLONIZATION NS SCH ×2 (12:59→21:10)
[2019-09-28 13:27] LABS: ALLENS TEST POSITIVE; ARTERIAL BLD GAS O2 SATURATION 95.8 % (95-98); ARTERIAL BLOOD GAS BASE EXCESS 7.4 meq/l (-2-2); ARTERIAL BLOOD GAS PCO2 52.1 mmHg (35-45); ARTERIAL BLOOD GAS PO2 83.8 mmHg (80-100); ARTERIAL BLOOD GAS pH 7.42 (7.35-7.45)
[2019-09-28] MEDS ORDERED: DEXMEDETOMIDINE HCL 200 MCG in SODIUM CHLORIDE 48 ML IVPB SCH (13:30)
--- NOTE | 2019-09-28 13:54 | PN ---
Physical Exam: SUBJECTIVE: Patient seen and examined. Remains intubated, arousable off sedation but heart rates rapid. Back on Sedation. OBJECTIVE: Vital Signs Period Temp Pulse Resp BP Sys/Salgado Pulse Ox Last 24 Hr 98.0 F-99.8 F 88-165 15-21 120-168/69-116 97-97 GENERAL: Awake off sedation, but drowsy. responding to commands. (hand band lining bander, moving toes) HEENT: NCAT, OG tube in place. NECK: No JVD LUNGS: Mechanical Vent sounds. scattered ronchi HEART: irregularly irregular ABDOMEN: Soft, nontender, not distended, + bowel sounds EXTREMITIES: 1+ pitting edema NEUROLOGICAL: Sedated SKIN: Warm, dry Laboratory Results - last 24 hr 09/27/19 09/27/19 09/27/19 16:54 21:20 21:38 WBC RBC Hgb Hct MCV MCH MCHC RDW Plt Count MPV Absolute Neuts (auto) Neutrophils % Lymphocytes % Monocytes % Eosinophils % Basophils % Nucleated RBC % Anticoagulation Therapy Puncture Site ABG pH ABG pCO2 at Pt Temp ABG pO2 at Pt Temp ABG HCO3 ABG O2 Sat (Measured) ABG O2 Content ABG Base Excess Randy Test O2 Delivery Device Oxygen Flow Rate Vent Mode Vent Rate Mechanical Rate PEEP Pressure Support Vent Sodium Potassium Chloride Carbon Dioxide Anion Gap BUN Creatinine Est GFR (CKD-EPI)AfAm Est GFR (CKD-EPI)NonAf POC Glucometer 169 162 Random Glucose Calcium Phosphorus Magnesium Total Bilirubin AST ALT Alkaline Phosphatase Total Protein Albumin Vancomycin Pre-Dose 20.2 09/28/19 09/28/19 09/28/19 05:40 05:40 06:07 WBC 3.8 L RBC 4.15 Hgb 12.2 Hct 37.6 MCV 90.6 MCH 29.5 MCHC 32.5 RDW 15.8 H Plt Count 95 L MPV 12.4 H Absolute Neuts (auto) 3.2 Neutrophils % 84.2 H Lymphocytes % 6.2 L D Monocytes % 9.2 Eosinophils % 0.0 Basophils % 0.4 Nucleated RBC % 1 H Anticoagulation Therapy Puncture Site ABG pH ABG pCO2 at Pt Temp ABG pO2 at Pt Temp ABG HCO3 ABG O2 Sat (Measured) ABG O2 Content ABG Base Excess Randy Test O2 Delivery Device Oxygen Flow Rate Vent Mode Vent Rate Mechanical Rate PEEP Pressure Support Vent Sodium 143 Potassium 4.1 Chloride 105 Carbon Dioxide 33 H Anion Gap 5 L BUN 58.0 H Creatinine 1.6 H Est GFR (CKD-EPI)AfAm 39.89 Est GFR (CKD-EPI)NonAf 34.42 POC Glucometer 145 Random Glucose 157 H Calcium 8.1 L Phosphorus 4.1 Magnesium 2.7 H Total Bilirubin 0.6 AST 16 ALT 19 Alkaline Phosphatase 70 Total Protein 5.6 L Albumin 2.4 L Vancomycin Pre-Dose 09/28/19 09/28/19 12:10 13:10 WBC RBC Hgb Hct MCV MCH MCHC RDW Plt Count MPV Absolute Neuts (auto) Neutrophils % Lymphocytes % Monocytes % Eosinophils % Basophils % Nucleated RBC % Anticoagulation Therapy No Result Required. Puncture Site Right radial ABG pH 7.42 ABG pCO2 at Pt Temp 52.1 H ABG pO2 at Pt Temp 83.8 ABG HCO3 33 H ABG O2 Sat (Measured) 95.8 ABG O2 Content 17.0 ABG Base Excess 7.4 H Randy Test Positive O2 Delivery Device No Result Required. Oxygen Flow Rate 40 Vent Mode No Result Required. Vent Rate No Result Required. Mechanical Rate No Result Required. PEEP 5.0 Pressure Support Vent 400 Sodium Potassium Chloride Carbon Dioxide Anion Gap BUN Creatinine Est GFR (CKD-EPI)AfAm Est GFR (CKD-EPI)NonAf POC Glucometer 184 Random Glucose Calcium Phosphorus Magnesium Total Bilirubin AST ALT Alkaline Phosphatase Total Protein Albumin Vancomycin Pre-Dose Active Medications Generic Name Dose Route Start Last Admin Trade Name Freq PRN Reason Stop Dose Admin Acetaminophen 1,000 mg 09/27/19 21:38 09/27/19 21:52 Ofirmev Injection - IVPB 1,000 mg Q6H PRN Administration FEVER Apixaban 2.5 mg 09/25/19 10:00 09/28/19 09:40 Eliquis - PO 2.5 mg BID JOLENE Administration Budesonide/Formoterol Fumarate 2 puff 09/25/19 10:00 09/28/19 12:52 Symbicort 80/4.5mcg - IH Not Given BID JOLENE Chlorhexidine Gluconate 1 applic 09/24/19 22:00 09/27/19 21:58 Hibiclens For Decolonization - TP 1 applic HS JOLENE Administration Digoxin 0.125 mg 09/25/19 12:00 09/28/19 09:39 Lanoxin - PO 0.125 mg DAILY JOLENE Administration Ergocalciferol 50,000 unit 09/29/19 10:00 Drisdol - PO We@1000 JOLENE Furosemide 40 mg 09/25/19 10:00 09/28/19 09:39 Lasix - PO 40 mg DAILY JOLENE Administration Gabapentin 300 mg 09/25/19 14:00 09/28/19 06:01 Neurontin Oral Liquid - PO 300 mg TID JOLENE Administration Hydralazine HCl 50 mg 09/25/19 06:00 09/28/19 05:51 Apresoline - PO 50 mg TID JOLENE Administration Propofol 1,000,000 mcg in 100 mls @ 2.177 mls/hr 09/24/19 23:45 09/28/19 08:00 Diprivan - IVPB 0 mcg/kg/min TITR JOLENE 0 mls/hr Titration Protocol 5 MCG/KG/MIN Fentanyl 500 mcg/ Dextrose 100 mls @ 5 mls/hr 09/25/19 11:30 09/28/19 12:52 IVPB Not Given TITR JOLENE 25 MCG/HR Vancomycin HCl 1,000 mg in 250 mls @ 200 mls/hr 09/25/19 22:00 09/27/19 22:12 Vancomycin (Pre-Docked) IVPB 200 mls/hr HS JOLENE Administration Protocol Cefepime HCl 1 gm/ Dextrose 100 mls @ 200 mls/hr 09/25/19 22:00 09/28/19 09:38 IVPB 200 mls/hr BID JOLENE Administration Protocol Midazolam HCl 100 mg in 100 mls @ 1 mls/hr 09/27/19 05:45 09/28/19 08:00 Midazolam 100mg/100ml-0.9%Nacl IVPB 0 mg/hr TITR JOLENE 0 mls/hr Infusion Protocol 1 MG/HR Dexmedetomidine HCl 200 mcg/ 50 mls @ 3.23 mls/hr 09/28/19 13:30 Sodium Chloride IVPB 09/29/19 13:29 TITR JOLENE 0.2 MCG/KG/HR Insulin Aspart 1 vial 09/25/19 16:30 09/28/19 13:01 Novolog Vial Sliding Scale - SQ 2 units ACHS JOLENE Administration Protocol Levalbuterol HCl 0.63 mg 09/25/19 14:00 09/28/19 09:30 Xopenex IH 0.63 mg RTID JOLENE Administration Methylprednisolone Sodium Succinate 40 mg 09/25/19 10:00 09/28/19 09:38 Solu-Medrol - IVPUSH 40 mg Q8H-IV JOLENE Administration Mupirocin 1 applic 09/24/19 22:00 09/28/19 12:59 Bactroban Ointment (For Decolonization) - NS 09/29/19 21:59 1 applic BID JOLENE Administration Oseltamivir Phosphate 30 mg 09/25/19 10:00 09/28/19 10:07 Tamiflu Oral Suspension - PO 09/30/19 09:59 30 mg DAILY JOLENE Administration Pantoprazole Sodium 40 mg 09/25/19 10:45 09/28/19 09:38 Protonix Iv IVPUSH 40 mg DAILY JOLENE Administration Verapamil HCl 2.5 mg 09/26/19 11:39 09/28/19 10:06 Calan Injection - IVPUSH 2.5 mg Q6H PRN Administration TACHYCARDIA Verapamil HCl 80 mg 09/28/19 11:36 Calan - NGT TID JOLENE ASSESSMENT/PLAN: 59 y/o F PMHx AFib (on Eliquis), CHF, HTN, CKD 3b, COPD/Asthma (requiring intubation in past, current smoker), prior PE, pulmonary fibrosis, TANISHA, DM, presents with SOB and admitted to ICU for AHHRF s/p intubation. Neuro Sedated s/p Intubation - precedex to sedate for vent synchrony; Daily sedation vacation to access mental status -Trialed off sedation today, but pt tachycardic with increased work of breathing. While off sedation, pt was more awake today compared to yesterday. Will cont weaning trials again tomorrow. Cardio runs of tachycardia overnight Hx of AFib (on Eliquis), CHF , HTN -Continue Apixaban 2.5 BID, Lasix 40, Hydralazine 50 TID, Digoxin 0.125 -Per Cardio: Verapamil 80 mg q8h, increase as tolerated by bp and HR, can push IV Verapamil 2.5-5 mg q6h PRN for breakthrough. Limit beta agonists. Repeat echo not needed. Pulmonary Acute on Chronic Hypoxic/Hypercapneic Respiratory Failure; now improving. ABG this morning: pH 7.42, pCO2 52.1, pO2 83.8, HCO3 33, -Currently on Ventilator (40%/5/450/18); Continue supplemental O2 to maintain SpO2 88-92% -Continue Bronchodilation via Xopenex, Duoneb, Symbicort. Limit beta-agonist given tachycardia -Continue IV SoluMedrol 40mg Q8H -Daily CXR: R upper lobe pathology improvement -monitor Ppeak/Pplat GI -Maintain OG tube; tube feeds started -Continue Protonix 40 QD IVP Renal Cr 1.6 Hx of CKD 3b -Monitor Cr ID ? PNA Influenza A Positive -Continue Cefepime 1gm BID, Vanc 1gm HS, Oseltamivir 30 (Abx course started on 09/24) -ID consulted, appreciate recs -UCx neg, urine legionella/strep neg, sputum with normal shelby, blood culture neg x72h Endo Hx of DM -ISS BGMs ACHS -Continue Gabapentin FEN -No standing fluids -Replete lytes PRN -Tube feed Nepro PPx -DVT: NOAC -GI: PPI LTD -Intubated 09/25/19 -Flores 09/25/19 Dispo:cont ICU care Visit type - Emergency Visit Emergency Visit: Yes ED Registration Date: 09/24/19 Care time: The patient presented to the Emergency Department on the above date and was hospitalized for further evaluation of their emergent condition. - New Patient This patient is new to me today: No - Critical Care Critical Care patient: Yes Total Critical Care Time (in minutes): 35 Critical Care Statement: The care of this patient involved high complexity decision making to prevent further life threatening deterioration of the patient's condition and/or to evaluate & treat vital organ system(s) failure or risk of failure. ATTENDING PHYSICIAN STATEMENT I saw and evaluated the patient. I reviewed the resident's note and discussed the case with the resident. I agree with the resident's findings and plan as documented. SUBJECTIVE: OBJECTIVE: ASSESSMENT AND PLAN:
[2019-09-28] MEDS: VERAPAMIL HCL 80 MG TABLET NGT SCH ×2 (13:56→21:10)
--- NOTE | 2019-09-28 14:03 | PN ---
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, Physician Chief Complaint: Acute respiratory failure Influenza A COPD exacerbation NAM Pneumonia ARLYN History of Present Illness: Still Mechanically vented NAD HR improved - Current Medication List Current Medications: Active Medications Acetaminophen (Ofirmev Injection -) 1,000 mg IVPB Q6H PRN PRN Reason: FEVER Last Admin: 09/27/19 21:52 Dose: 1,000 mg Apixaban (Eliquis -) 2.5 mg PO BID [facility] Last Admin: 09/28/19 09:40 Dose: 2.5 mg Budesonide/Formoterol Fumarate (Symbicort 80/4.5mcg -) 2 puff IH BID [facility] Last Admin: 09/28/19 12:52 Dose: Not Given Chlorhexidine Gluconate (Hibiclens For Decolonization -) 1 applic TP HS JOLENE Last Admin: 09/27/19 21:58 Dose: 1 applic Digoxin (Lanoxin -) 0.125 mg PO DAILY [facility] Last Admin: 09/28/19 09:39 Dose: 0.125 mg Ergocalciferol (Drisdol -) 50,000 unit PO We@1000 JOLENE Furosemide (Lasix -) 40 mg PO DAILY [facility] Last Admin: 09/28/19 09:39 Dose: 40 mg Gabapentin (Neurontin Oral Liquid -) 300 mg PO TID [facility] Last Admin: 09/28/19 06:01 Dose: 300 mg Hydralazine HCl (Apresoline -) 50 mg PO TID [facility] Last Admin: 09/28/19 13:56 Dose: 50 mg Propofol (Diprivan -) 1,000,000 mcg in 100 mls @ 2.177 mls/hr IVPB TITR [facility]; Protocol Last Titration: 09/28/19 08:00 Dose: 0 mcg/kg/min, 0 mls/hr Fentanyl 500 mcg/ Dextrose 100 mls @ 5 mls/hr IVPB TITR [facility] Last Admin: 09/28/19 12:52 Dose: Not Given Vancomycin HCl (Vancomycin (Pre-Docked)) 1,000 mg in 250 mls @ 200 mls/hr IVPB HS [facility]; Protocol Last Admin: 09/27/19 22:12 Dose: 200 mls/hr Cefepime HCl 1 gm/ Dextrose 100 mls @ 200 mls/hr IVPB BID [facility]; Protocol Last Admin: 09/28/19 09:38 Dose: 200 mls/hr Midazolam HCl (Midazolam 100mg/100ml-0.9%Nacl) 100 mg in 100 mls @ 1 mls/hr IVPB TITR [facility]; Protocol Last Infusion: 09/28/19 08:00 Dose: 0 mg/hr, 0 mls/hr Dexmedetomidine HCl 200 mcg/ (Sodium Chloride) 50 mls @ 3.23 mls/hr IVPB TITR JOLENE Stop: 09/29/19 13:29 Insulin Aspart (Novolog Vial Sliding Scale -) 1 vial SQ ACHS [facility]; Protocol Last Admin: 09/28/19 13:01 Dose: 2 units Levalbuterol HCl (Xopenex) 0.63 mg IH RTID [facility] Last Admin: 09/28/19 09:30 Dose: 0.63 mg Methylprednisolone Sodium Succinate (Solu-Medrol -) 40 mg IVPUSH Q8H-IV [facility] Last Admin: 09/28/19 09:38 Dose: 40 mg Mupirocin (Bactroban Ointment (For Decolonization) -) 1 applic NS BID [facility] Stop: 09/29/19 21:59 Last Admin: 09/28/19 12:59 Dose: 1 applic Oseltamivir Phosphate (Tamiflu Oral Suspension -) 30 mg PO DAILY [facility] Stop: 09/30/19 09:59 Last Admin: 09/28/19 10:07 Dose: 30 mg Pantoprazole Sodium (Protonix Iv) 40 mg IVPUSH DAILY [facility] Last Admin: 09/28/19 09:38 Dose: 40 mg Verapamil HCl (Calan Injection -) 2.5 mg IVPUSH Q6H PRN PRN Reason: TACHYCARDIA Last Admin: 09/28/19 10:06 Dose: 2.5 mg Verapamil HCl (Calan -) 80 mg NGT TID [facility] Last Admin: 09/28/19 13:56 Dose: 80 mg - Objective Vital Signs: Vital Signs Temperature 98.0 F 09/28/19 10:00 Pulse Rate 133 H 09/28/19 12:00 Respiratory Rate 18 09/28/19 12:00 Blood Pressure 168/89 09/28/19 12:00 O2 Sat by Pulse Oximetry (%) 97 09/28/19 01:00 Constitutional: Yes: Well Nourished, No Distress, Calm Cardiovascular: Yes: Regular Rate and Rhythm Respiratory: Yes: Mechanically Ventilated, Rhonchi (diffuse) Gastrointestinal: Yes: WNL, Normal Bowel Sounds, Soft Genitourinary: Yes: Flores Present Edema: No Peripheral Pulses WNL: Yes Neurological: Yes: Other (sedated) Labs: CBC, BMP 09/28/19 05:40 09/28/19 05:40 INR, PTT INR 1.16 (0.83-1.09) H 09/24/19 16:30 Problem List - Problems (1) Influenza A Assessment/Plan: -Seen by ID -Finished Tamiflu Problems reviewed: Yes Code(s): J10.1 - FLU DUE TO OTH IDENT INFLUENZA VIRUS W OTH RESP MANIFEST (2) Acute respiratory failure Assessment/Plan: -Cushion Filler vent -Pulmonary on board -Bronchodilators -IV abx -ID on board -IV medrol Problems reviewed: Yes Code(s): J96.00 - ACUTE RESPIRATORY FAILURE, UNSP W HYPOXIA OR HYPERCAPNIA (3) Acute exacerbation of COPD with asthma Problems reviewed: Yes Code(s): J44.1 - CHRONIC OBSTRUCTIVE PULMONARY DISEASE W (ACUTE) EXACERBATION; J45.901 - UNSPECIFIED ASTHMA WITH (ACUTE) EXACERBATION (4) Pneumonia Assessment/Plan: -Cushion Filler vent -Pulmonary on board -Bronchodilators -IV abx -ID on board -IV medrol Problems reviewed: Yes Code(s): J18.9 - PNEUMONIA, UNSPECIFIED ORGANISM Qualifiers: Pneumonia type: due to unspecified organism Laterality: unspecified laterality Lung location: unspecified part of lung Qualified Code(s): J18.9 - Pneumonia, unspecified organism (5) JOSEPH (acute kidney injury) Assessment/Plan: -Nephrology consult -monitor trend Problems reviewed: Yes Code(s): N17.9 - ACUTE KIDNEY FAILURE, UNSPECIFIED (6) Afib Assessment/Plan: -Seen by cardiology -On verapamil-continue -Continue eliquis -Will improve as pt improves metabolically Problems reviewed: Yes Code(s): I48.91 - UNSPECIFIED ATRIAL FIBRILLATION Qualifiers: Atrial fibrillation type: unspecified Qualified Code(s): I48.91 - Unspecified atrial fibrillation Assessment/Plan see problem list
--- NOTE | 2019-09-28 16:49 | PN ---
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, Physician History of Present Illness: REMAINS INTUBATED AFEBRILE LEUKOPENIC/ THROMBOCYTOPENIC SPUTUM NORMAL BAICLIO - Current Medication List Current Medications: Active Medications Acetaminophen (Ofirmev Injection -) 1,000 mg IVPB Q6H PRN PRN Reason: FEVER Last Admin: 09/27/19 21:52 Dose: 1,000 mg Apixaban (Eliquis -) 2.5 mg PO BID [facility] Last Admin: 09/28/19 09:40 Dose: 2.5 mg Budesonide/Formoterol Fumarate (Symbicort 80/4.5mcg -) 2 puff IH BID [facility] Last Admin: 09/28/19 12:52 Dose: Not Given Chlorhexidine Gluconate (Hibiclens For Decolonization -) 1 applic TP HS [facility] Last Admin: 09/27/19 21:58 Dose: 1 applic Digoxin (Lanoxin -) 0.125 mg PO DAILY [facility] Last Admin: 09/28/19 09:39 Dose: 0.125 mg Ergocalciferol (Drisdol -) 50,000 unit PO We@1000 JOLENE Furosemide (Lasix -) 40 mg PO DAILY [facility] Last Admin: 09/28/19 09:39 Dose: 40 mg Gabapentin (Neurontin Oral Liquid -) 300 mg PO TID [facility] Last Admin: 09/28/19 14:10 Dose: 300 mg Hydralazine HCl (Apresoline -) 50 mg PO TID [facility] Last Admin: 09/28/19 13:56 Dose: 50 mg Propofol (Diprivan -) 1,000,000 mcg in 100 mls @ 2.177 mls/hr IVPB TITR [facility]; Protocol Last Titration: 09/28/19 08:00 Dose: 0 mcg/kg/min, 0 mls/hr Fentanyl 500 mcg/ Dextrose 100 mls @ 5 mls/hr IVPB TITR [facility] Last Admin: 09/28/19 12:52 Dose: Not Given Vancomycin HCl (Vancomycin (Pre-Docked)) 1,000 mg in 250 mls @ 200 mls/hr IVPB HS [facility]; Protocol Last Admin: 09/27/19 22:12 Dose: 200 mls/hr Cefepime HCl 1 gm/ Dextrose 100 mls @ 200 mls/hr IVPB BID [facility]; Protocol Last Admin: 09/28/19 09:38 Dose: 200 mls/hr Midazolam HCl (Midazolam 100mg/100ml-0.9%Nacl) 100 mg in 100 mls @ 1 mls/hr IVPB TITR [facility]; Protocol Last Infusion: 09/28/19 08:00 Dose: 0 mg/hr, 0 mls/hr Dexmedetomidine HCl 200 mcg/ (Sodium Chloride) 50 mls @ 3.23 mls/hr IVPB TITR JOLENE Stop: 09/29/19 13:29 Last Admin: 09/28/19 14:46 Dose: 0.2 mcg/kg/hr, 3.23 mls/hr Insulin Aspart (Novolog Vial Sliding Scale -) 1 vial SQ ACHS [facility]; Protocol Last Admin: 09/28/19 13:01 Dose: 2 units Levalbuterol HCl (Xopenex) 0.63 mg IH RTID [facility] Last Admin: 09/28/19 15:00 Dose: 0.63 mg Methylprednisolone Sodium Succinate (Solu-Medrol -) 40 mg IVPUSH Q8H-IV [facility] Last Admin: 09/28/19 09:38 Dose: 40 mg Mupirocin (Bactroban Ointment (For Decolonization) -) 1 applic NS BID [facility] Stop: 09/29/19 21:59 Last Admin: 09/28/19 12:59 Dose: 1 applic Oseltamivir Phosphate (Tamiflu Oral Suspension -) 30 mg PO DAILY [facility] Stop: 09/30/19 09:59 Last Admin: 09/28/19 10:07 Dose: 30 mg Pantoprazole Sodium (Protonix Iv) 40 mg IVPUSH DAILY [facility] Last Admin: 09/28/19 09:38 Dose: 40 mg Verapamil HCl (Calan Injection -) 2.5 mg IVPUSH Q6H PRN PRN Reason: TACHYCARDIA Last Admin: 09/28/19 10:06 Dose: 2.5 mg Verapamil HCl (Calan -) 80 mg NGT TID [facility] Last Admin: 09/28/19 13:56 Dose: 80 mg - Objective Vital Signs: Vital Signs Temperature 98.1 F 09/28/19 14:00 Pulse Rate 93 H 09/28/19 14:00 Respiratory Rate 18 09/28/19 16:00 Blood Pressure 175/85 H 09/28/19 14:00 O2 Sat by Pulse Oximetry (%) 97 09/28/19 01:00 Constitutional: Yes: No Distress Eyes: Yes: Conjunctiva Clear Cardiovascular: Yes: Regular Rate and Rhythm, S1, S2 Respiratory: Yes: CTA Bilaterally Gastrointestinal: Yes: Normal Bowel Sounds, Soft. No: Tenderness Edema: Yes Labs: CBC, BMP 09/28/19 05:40 09/28/19 05:40 INR, PTT INR 1.16 (0.83-1.09) H 09/24/19 16:30 Assessment/Plan ACUTE RESPIRATORY FAILURE ACUTE INFLUENZA PNEUMONIA LEUKOPENIA/ THROMBOCYTOPENIA EXACERBATION COPD AZOTEMIA CONTINUE VENTILATORY SUPPORT EMPIRIC VANCOMYCIN/ CEFEPIME TAMIFLU
[2019-09-28] MEDS ORDERED: PROPOFOL 1,000,000 MCG/100 ML VIAL ONE (21:00)
[2019-09-28] MEDS ORDERED: INSULIN (NOVOLOG) ASPART 100 UNITS/ML 10ML VIAL ONE (21:09)
[2019-09-28] MEDS: VANCOMYCIN 1 GRAM (PRE-DOCKED) 1,000 MG/250 ML BAG IVPB SCH (21:11)
[2019-09-28] MEDS: CHLORHEXIDINE GLUCONATE 4% CLEANSER FOR DECOLONIZATION TP SCH (21:11)
[2019-09-28] MEDS: ACETAMINOPHEN 650 MG/20.3 ML ORAL SOLUTION (CUPS) PO PRN (22:00)
[2019-09-29] MEDS: methylPREDNISolone NA SUCC 40 MG/1 ML VIAL IVPUSH SCH ×3 (01:15→17:18)
[2019-09-29] MEDS: VERAPAMIL HCL 5 MG/2 ML VIAL IVPUSH PRN ×3 (03:07→18:32)
[2019-09-29] MEDS ORDERED: PT OWN MED DRAWER 7, Y5N ONE ×6 (04:11→20:27)
[2019-09-29] MEDS ORDERED: INSULIN (NOVOLOG) ASPART 100 UNITS/ML 10ML VIAL ONE (04:11)
[2019-09-29] MEDS: hydrALAZINE HCL 50 MG TABLET (FP) PO SCH ×3 (04:25→21:00)
[2019-09-29] MEDS: VERAPAMIL HCL 80 MG TABLET NGT SCH ×4 (05:06→21:31)
[2019-09-29] MEDS: GABAPENTIN 250 MG/5 ML ORAL SOLUTION, 470 ML BOTTLE PO SCH ×3 (05:06→21:00)
[2019-09-29 06:38] LABS: BASO % 0.5 % (0-2.0); HEMATOCRIT 39.7 % (32.4-45.2); HEMOGLOBIN 12.8 GM/dL (10.7-15.3); LYMPH % 8.3 % (8-40); MCH 29.3 pg (25.7-33.7); MCHC 32.3 g/dl (32.0-36.0); MEAN CELL VOLUME 90.7 fl (80-96); MEAN PLT VOLUME 10.6 fl (7.5-11.1); MONO % 8.9 % (3.8-10.2); NEUT % 82.3 % (42.8-82.8); PLATELET COUNT 74 K/MM3 (134-434); RBC 4.38 M/mm3 (3.60-5.2)
[2019-09-29] MEDS: INSULIN SLIDING SCALE (NOVOLOG) 1 VIAL SQ SCH ×4 (06:41→21:32)
[2019-09-29 07:06] LABS: ALBUMIN 2.5 g/dl (3.4-5.0); BILIRUBIN,TOTAL 0.7 mg/dL (0.2-1); BLOOD UREA NITROGEN 62.3 mg/dL (7-18); CALCIUM 8.4 mg/dL (8.5-10.1); CREATININE 1.5 mg/dL (0.55-1.3); MAGNESIUM 2.8 mg/dL (1.8-2.4); PHOSPHOROUS 3.1 mg/dL (2.5-4.9)
[2019-09-29] MEDS: LEVALBUTEROL HCL 0.63 MG/3 ML VIAL.NEB. IH SCH ×3 (08:38→20:30)
[2019-09-29] MEDS: MIDAZOLAM IN 0.9 % SOD.CHLORID 100 MG/100 ML PLAST..BAG IVPB SCH (08:40)
[2019-09-29] MEDS ORDERED: DEXTROSE 5%-WATER 100 ML IVPB ONE ×2 (10:35→20:27)
[2019-09-29] MEDS ORDERED: CEFEPIME HCL 1 GM VIAL (RESTRICTED TO ID) ONE ×2 (10:35→20:27)
[2019-09-29] MEDS: FUROSEMIDE 40 MG TABLET (FP) PO SCH (10:43)
[2019-09-29] MEDS: DIGOXIN 0.125 MG TABLET (FP) PO SCH (10:43)
[2019-09-29] MEDS: ERGOCALCIFEROL (VIT D2) 50,000 UNIT (1.25 MG) CAPSULE PO SCH ×2 (10:44→10:58)
[2019-09-29] MEDS: OSELTAMIVIR PHOSPHATE 6 MG/1 ML PO SCH (10:44)
[2019-09-29] MEDS: APIXABAN 2.5 MG TABLET PO SCH ×2 (10:44→21:00)
[2019-09-29] MEDS: PANTOPRAZOLE SODIUM 40 MG VIAL IVPUSH SCH (10:45)
[2019-09-29] MEDS: CEFEPIME 1 GM in DEXTROSE 5%-WATER 100 ML IVPB SCH ×2 (10:45→21:00)
[2019-09-29] MEDS: BUDESONIDE/FORMETEROL FUMARATE 80/4.5 mcg INHALER IH SCH ×2 (10:46→21:01)
[2019-09-29] MEDS: MUPIROCIN 2% TOPICAL OINTMENT FOR DECOLONIZATION NS SCH (10:46)
--- NOTE | 2019-09-29 11:25 | PN ---
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, Physician History of Present Illness: REMAINS INTUBATED SEDATED ON VENTILATOR LOW GRADE TEMP LEUKOPENIC/ THROMBOCYTOPENIC AZOTEMIA IMPROVED SPUTUM NORMAL BACILIO - Current Medication List Current Medications: Active Medications Acetaminophen (Tylenol Oral Solution -) 1,000 mg PO Q6H PRN PRN Reason: FEVER Last Admin: 09/28/19 22:00 Dose: 1,000 mg Apixaban (Eliquis -) 2.5 mg PO BID [facility] Last Admin: 09/29/19 10:44 Dose: 2.5 mg Budesonide/Formoterol Fumarate (Symbicort 80/4.5mcg -) 2 puff IH BID [facility] Last Admin: 09/29/19 10:46 Dose: Not Given Chlorhexidine Gluconate (Hibiclens For Decolonization -) 1 applic TP HS [facility] Last Admin: 09/28/19 21:11 Dose: 1 applic Digoxin (Lanoxin -) 0.125 mg PO DAILY [facility] Last Admin: 09/29/19 10:43 Dose: 0.125 mg Ergocalciferol (Drisdol -) 50,000 unit PO We@1000 [facility] Last Admin: 09/29/19 10:58 Dose: Not Given Furosemide (Lasix -) 40 mg PO DAILY [facility] Last Admin: 09/29/19 10:43 Dose: 40 mg Gabapentin (Neurontin Oral Liquid -) 300 mg PO TID [facility] Last Admin: 09/29/19 05:06 Dose: 300 mg Hydralazine HCl (Apresoline -) 50 mg PO TID [facility] Last Admin: 09/29/19 04:25 Dose: 50 mg Propofol (Diprivan -) 1,000,000 mcg in 100 mls @ 2.177 mls/hr IVPB TITR [facility]; Protocol Last Titration: 09/29/19 05:25 Dose: 15 mcg/kg/min, 6.532 mls/hr Fentanyl 500 mcg/ Dextrose 100 mls @ 5 mls/hr IVPB TITR [facility] Last Titration: 09/28/19 18:22 Dose: 1 mcg/hr, 0.2 mls/hr Cefepime HCl 1 gm/ Dextrose 100 mls @ 200 mls/hr IVPB BID [facility]; Protocol Last Admin: 09/29/19 10:45 Dose: 200 mls/hr Midazolam HCl (Midazolam 100mg/100ml-0.9%Nacl) 100 mg in 100 mls @ 1 mls/hr IVPB TITR [facility]; Protocol Last Admin: 09/29/19 08:40 Dose: Not Given Dexmedetomidine HCl 200 mcg/ (Sodium Chloride) 50 mls @ 3.23 mls/hr IVPB TITR [facility] Stop: 09/29/19 13:29 Last Infusion: 09/29/19 08:20 Dose: 0.4 mcg/kg/hr, 6.46 mls/hr Insulin Aspart (Novolog Vial Sliding Scale -) 1 vial SQ ACHS [facility]; Protocol Last Admin: 09/29/19 06:41 Dose: 2 units Levalbuterol HCl (Xopenex) 0.63 mg IH RTID [facility] Last Admin: 09/29/19 08:38 Dose: 0.63 mg Methylprednisolone Sodium Succinate (Solu-Medrol -) 40 mg IVPUSH Q8H-IV [facility] Last Admin: 09/29/19 10:45 Dose: 40 mg Mupirocin (Bactroban Ointment (For Decolonization) -) 1 applic NS BID [facility] Stop: 09/29/19 21:59 Last Admin: 09/29/19 10:46 Dose: 1 applic Oseltamivir Phosphate (Tamiflu Oral Suspension -) 30 mg PO DAILY [facility] Stop: 09/30/19 09:59 Last Admin: 09/29/19 10:44 Dose: 30 mg Pantoprazole Sodium (Protonix Iv) 40 mg IVPUSH DAILY [facility] Last Admin: 09/29/19 10:45 Dose: 40 mg Verapamil HCl (Calan Injection -) 2.5 mg IVPUSH Q6H PRN PRN Reason: TACHYCARDIA Last Admin: 09/29/19 03:07 Dose: 2.5 mg Verapamil HCl (Calan -) 80 mg NGT TID [facility] Last Admin: 09/29/19 05:06 Dose: 80 mg - Objective Vital Signs: Vital Signs Temperature 99.1 F 09/29/19 10:05 Pulse Rate 116 H 09/29/19 10:43 Respiratory Rate 24 H 09/29/19 10:05 Blood Pressure 164/96 09/29/19 10:05 O2 Sat by Pulse Oximetry (%) 94 L 09/29/19 08:00 Constitutional: Yes: No Distress Eyes: Yes: Conjunctiva Clear Cardiovascular: Yes: Regular Rate and Rhythm, S1, S2 Respiratory: Yes: Mechanically Ventilated Gastrointestinal: Yes: Normal Bowel Sounds, Soft. No: Tenderness Edema: No Labs: CBC, BMP 09/29/19 06:10 09/29/19 06:10 INR, PTT INR 1.16 (0.83-1.09) H 09/24/19 16:30 Assessment/Plan ACUTE RESPIRATORY FAILURE ACUTE INFLUENZA PNEUMONIA LEUKOPENIA/ THROMBOCYTOPENIA EXACERBATION COPD AZOTEMIA CONTINUE VENTILATORY SUPPORT EMPIRIC CEFEPIME TAMIFLU
--- NOTE | 2019-09-29 11:44 | PN ---
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, Physician History of Present Illness: Pt seen and examined at bedside. She remains in the ICU. She remains intubated. - Current Medication List Current Medications: Active Medications Acetaminophen (Tylenol Oral Solution -) 1,000 mg PO Q6H PRN PRN Reason: FEVER Last Admin: 09/28/19 22:00 Dose: 1,000 mg Apixaban (Eliquis -) 2.5 mg PO BID [facility] Last Admin: 09/29/19 10:44 Dose: 2.5 mg Budesonide/Formoterol Fumarate (Symbicort 80/4.5mcg -) 2 puff IH BID [facility] Last Admin: 09/29/19 10:46 Dose: Not Given Chlorhexidine Gluconate (Hibiclens For Decolonization -) 1 applic TP HS [facility] Last Admin: 09/28/19 21:11 Dose: 1 applic Digoxin (Lanoxin -) 0.125 mg PO DAILY [facility] Last Admin: 09/29/19 10:43 Dose: 0.125 mg Ergocalciferol (Drisdol -) 50,000 unit PO We@1000 [facility] Last Admin: 09/29/19 10:58 Dose: Not Given Furosemide (Lasix -) 40 mg PO DAILY [facility] Last Admin: 09/29/19 10:43 Dose: 40 mg Gabapentin (Neurontin Oral Liquid -) 300 mg PO TID [facility] Last Admin: 09/29/19 05:06 Dose: 300 mg Hydralazine HCl (Apresoline -) 50 mg PO TID [facility] Last Admin: 09/29/19 04:25 Dose: 50 mg Propofol (Diprivan -) 1,000,000 mcg in 100 mls @ 2.177 mls/hr IVPB TITR [facility]; Protocol Last Titration: 09/29/19 05:25 Dose: 15 mcg/kg/min, 6.532 mls/hr Fentanyl 500 mcg/ Dextrose 100 mls @ 5 mls/hr IVPB TITR [facility] Last Titration: 09/28/19 18:22 Dose: 1 mcg/hr, 0.2 mls/hr Cefepime HCl 1 gm/ Dextrose 100 mls @ 200 mls/hr IVPB BID [facility]; Protocol Last Admin: 09/29/19 10:45 Dose: 200 mls/hr Midazolam HCl (Midazolam 100mg/100ml-0.9%Nacl) 100 mg in 100 mls @ 1 mls/hr IVPB TITR [facility]; Protocol Last Admin: 09/29/19 08:40 Dose: Not Given Dexmedetomidine HCl 200 mcg/ (Sodium Chloride) 50 mls @ 3.23 mls/hr IVPB TITR [facility] Stop: 09/29/19 13:29 Last Infusion: 09/29/19 08:20 Dose: 0.4 mcg/kg/hr, 6.46 mls/hr Insulin Aspart (Novolog Vial Sliding Scale -) 1 vial SQ ACHS [facility]; Protocol Last Admin: 09/29/19 06:41 Dose: 2 units Levalbuterol HCl (Xopenex) 0.63 mg IH RTID [facility] Last Admin: 09/29/19 08:38 Dose: 0.63 mg Methylprednisolone Sodium Succinate (Solu-Medrol -) 40 mg IVPUSH Q8H-IV [facility] Last Admin: 09/29/19 10:45 Dose: 40 mg Mupirocin (Bactroban Ointment (For Decolonization) -) 1 applic NS BID [facility] Stop: 09/29/19 21:59 Last Admin: 09/29/19 10:46 Dose: 1 applic Oseltamivir Phosphate (Tamiflu Oral Suspension -) 30 mg PO DAILY [facility] Stop: 09/30/19 09:59 Last Admin: 09/29/19 10:44 Dose: 30 mg Pantoprazole Sodium (Protonix Iv) 40 mg IVPUSH DAILY [facility] Last Admin: 09/29/19 10:45 Dose: 40 mg Verapamil HCl (Calan Injection -) 2.5 mg IVPUSH Q6H PRN PRN Reason: TACHYCARDIA Last Admin: 09/29/19 03:07 Dose: 2.5 mg Verapamil HCl (Calan -) 80 mg NGT TID [facility] Last Admin: 09/29/19 05:06 Dose: 80 mg - Objective Vital Signs: Vital Signs Temperature 99.1 F 09/29/19 10:05 Pulse Rate 116 H 09/29/19 10:43 Respiratory Rate 24 H 09/29/19 10:05 Blood Pressure 164/96 09/29/19 10:05 O2 Sat by Pulse Oximetry (%) 94 L 09/29/19 08:00 Constitutional: Yes: Calm Eyes: Yes: Conjunctiva Clear HENT: Yes: Atraumatic Neck: Yes: Supple Cardiovascular: Yes: S1, S2 Respiratory: Yes: Mechanically Ventilated Gastrointestinal: Yes: Normal Bowel Sounds, Soft Genitourinary: Yes: WNL Edema: No Neurological: Yes: Lethargy Labs: CBC, BMP 09/29/19 06:10 09/29/19 06:10 INR, PTT INR 1.16 (0.83-1.09) H 09/24/19 16:30 Assessment/Plan Current Medications Generic Name Dose Route Start Last Admin Trade Name Freq PRN Reason Stop Dose Admin Acetaminophen 1,000 mg 09/28/19 16:51 09/28/19 22:00 Tylenol Oral Solution - PO 1,000 mg Q6H PRN Administration FEVER Apixaban 2.5 mg 09/25/19 10:00 09/29/19 10:44 Eliquis - PO 2.5 mg BID [facility]OLENE Administration Budesonide/Formoterol Fumarate 2 puff 09/25/19 10:00 09/29/19 10:46 Symbicort 80/4.5mcg - IH Not Given BID [facility]ENE Chlorhexidine Gluconate 1 applic 09/24/19 22:00 09/28/19 21:11 Hibiclens For Decolonization - TP 1 applic HS [facility]ENE Administration Digoxin 0.125 mg 09/25/19 12:00 09/29/19 10:43 Lanoxin - PO 0.125 mg DAILY [facility] Administration Ergocalciferol 50,000 unit 09/29/19 10:00 09/29/19 10:58 Drisdol - PO Not Given We@1000 [facility] Furosemide 40 mg 09/25/19 10:00 09/29/19 10:43 Lasix - PO 40 mg DAILY [facility] Administration Gabapentin 300 mg 09/25/19 14:00 09/29/19 05:06 Neurontin Oral Liquid - PO 300 mg TID [facility]ENE Administration Hydralazine HCl 50 mg 09/25/19 06:00 09/29/19 04:25 Apresoline - PO 50 mg TID [facility] Administration Propofol 1,000,000 mcg in 100 mls @ 2.177 mls/hr 09/24/19 23:45 09/29/19 05: 25 Diprivan - IVPB 15 mcg/kg/min TITR [facility] 6.532 mls/hr Titration Protocol 5 MCG/KG/MIN Fentanyl 500 mcg/ Dextrose 100 mls @ 5 mls/hr 09/25/19 11:30 09/28/19 18:22 IVPB 1 mcg/hr TITR [facility] 0.2 mls/hr Titration 25 MCG/HR Cefepime HCl 1 gm/ Dextrose 100 mls @ 200 mls/hr 09/25/19 22:00 09/29/19 10: 45 IVPB 200 mls/hr BID [facility] Administration Protocol Midazolam HCl 100 mg in 100 mls @ 1 mls/hr 09/27/19 05:45 09/29/19 08:40 Midazolam 100mg/100ml-0.9%Nacl IVPB Not Given TITR [facility] Protocol 1 MG/HR Dexmedetomidine HCl 200 mcg/ 50 mls @ 3.23 mls/hr 09/28/19 13:30 09/29/19 08: 20 Sodium Chloride IVPB 09/29/19 13:29 0.4 mcg/kg/hr TITR [facility] 6.46 mls/hr Infusion 0.2 MCG/KG/HR Insulin Aspart 1 vial 09/25/19 16:30 09/29/19 06:41 Novolog Vial Sliding Scale - SQ 2 units ACHS [facility] Administration Protocol Levalbuterol HCl 0.63 mg 09/25/19 14:00 09/29/19 08:38 Xopenex IH 0.63 mg RTID [facility] Administration Methylprednisolone Sodium Succinate 40 mg 09/25/19 10:00 09/29/19 10:45 Solu-Medrol - IVPUSH 40 mg Q8H-IV [facility] Administration Mupirocin 1 applic 09/24/19 22:00 09/29/19 10:46 Bactroban Ointment (For Decolonization) - NS 09/29/19 21:59 1 applic BID [facility] Administration Oseltamivir Phosphate 30 mg 09/25/19 10:00 09/29/19 10:44 Tamiflu Oral Suspension - PO 09/30/19 09:59 30 mg DAILY [facility] Administration Pantoprazole Sodium 40 mg 09/25/19 10:45 09/29/19 10:45 Protonix Iv IVPUSH 40 mg DAILY [facility] Administration Verapamil HCl 2.5 mg 09/26/19 11:39 09/29/19 03:07 Calan Injection - IVPUSH 2.5 mg Q6H PRN Administration TACHYCARDIA Verapamil HCl 80 mg 09/28/19 11:36 09/29/19 05:06 Calan - NGT 80 mg TID [facility] Administration Impression 1. CKD 2. CHF 3. a-fib 4. lower ext edema 5. COPD 6. active smoker 7. non compliance 8. acute resp failure 9. influenza Plan - capsule filler stable - cont lasix - weaning per pulmonary - vent suppprt - volume status stable - avoid nsaids
[2019-09-29 12:54] LABS: ARTERIAL BLD GAS O2 SATURATION 96.9 % (95-98); ARTERIAL BLOOD GAS PCO2 51.3 mmHg (35-45); ARTERIAL BLOOD GAS PO2 94.7 mmHg (80-100)
[2019-09-29 12:55] LABS: ALLENS TEST POSITIVE
--- NOTE | 2019-09-29 13:42 | PN ---
Teaching Attending Note Name of Resident: Christine Patrick ATTENDING PHYSICIAN STATEMENT I saw and evaluated the patient. I reviewed the resident's note and discussed the case with the resident. I agree with the resident's findings and plan as documented. SUBJECTIVE: Pt seen and examined in the ICU. Remains intubated, sedated. Heart rates variable. Becomes tachypneic, tachycardic with weaning. OBJECTIVE: Vital Signs Period Temp Pulse Resp BP Sys/Salgado Pulse Ox Last 24 Hr 97.2 F-100.6 F 80-140 16-27 135-182/10-106 94-95 Intake & Output 09/26/19 09/27/19 09/28/19 09/29/19 23:59 23:59 23:59 23:59 Intake Total 1776 555.4 1708.5 710.1 Output Total 2100 2350 1450 400 Balance -324 -1794.6 258.5 310.1 Weight 68.492 kg 64.637 kg 64.637 kg 63.231 kg Gen: intubated, sedated Heart: tachycardic, irregular Lung: scattered rhonchi Abd: soft, nontender Ext: + edema CBC, BMP 09/29/19 06:10 09/29/19 06:10 Active Medications Acetaminophen (Tylenol Oral Solution -) 1,000 mg PO Q6H PRN PRN Reason: FEVER Last Admin: 09/28/19 22:00 Dose: 1,000 mg Apixaban (Eliquis -) 2.5 mg PO BID [facility] Last Admin: 09/29/19 10:44 Dose: 2.5 mg Budesonide/Formoterol Fumarate (Symbicort 80/4.5mcg -) 2 puff IH BID [facility] Last Admin: 09/29/19 10:46 Dose: Not Given Chlorhexidine Gluconate (Hibiclens For Decolonization -) 1 applic TP HS [facility] Last Admin: 09/28/19 21:11 Dose: 1 applic Digoxin (Lanoxin -) 0.125 mg PO DAILY [facility] Last Admin: 09/29/19 10:43 Dose: 0.125 mg Ergocalciferol (Drisdol -) 50,000 unit PO We@1000 [facility] Last Admin: 09/29/19 10:58 Dose: Not Given Furosemide (Lasix -) 40 mg PO DAILY [facility] Last Admin: 09/29/19 10:43 Dose: 40 mg Gabapentin (Neurontin Oral Liquid -) 300 mg PO TID [facility] Last Admin: 09/29/19 05:06 Dose: 300 mg Hydralazine HCl (Apresoline -) 50 mg PO TID [facility] Last Admin: 09/29/19 04:25 Dose: 50 mg Cefepime HCl 1 gm/ Dextrose 100 mls @ 200 mls/hr IVPB BID [facility]; Protocol Last Admin: 09/29/19 10:45 Dose: 200 mls/hr Midazolam HCl (Midazolam 100mg/100ml-0.9%Nacl) 100 mg in 100 mls @ 1 mls/hr IVPB TITR [facility]; Protocol Last Admin: 09/29/19 08:40 Dose: Not Given Insulin Aspart (Novolog Vial Sliding Scale -) 1 vial SQ ACHS [facility]; Protocol Last Admin: 09/29/19 12:50 Dose: 4 units Levalbuterol HCl (Xopenex) 0.63 mg IH RTID [facility] Last Admin: 09/29/19 08:38 Dose: 0.63 mg Methylprednisolone Sodium Succinate (Solu-Medrol -) 40 mg IVPUSH Q8H-IV [facility] Last Admin: 09/29/19 10:45 Dose: 40 mg Mupirocin (Bactroban Ointment (For Decolonization) -) 1 applic NS BID [facility] Stop: 09/29/19 21:59 Last Admin: 09/29/19 10:46 Dose: 1 applic Oseltamivir Phosphate (Tamiflu Oral Suspension -) 30 mg PO DAILY [facility] Stop: 09/30/19 09:59 Last Admin: 09/29/19 10:44 Dose: 30 mg Pantoprazole Sodium (Protonix Iv) 40 mg IVPUSH DAILY [facility] Last Admin: 09/29/19 10:45 Dose: 40 mg Verapamil HCl (Calan Injection -) 2.5 mg IVPUSH Q6H PRN PRN Reason: TACHYCARDIA Last Admin: 09/29/19 12:39 Dose: 2.5 mg Verapamil HCl (Calan -) 80 mg NGT TID [facility] Last Admin: 09/29/19 05:06 Dose: 80 mg ASSESSMENT AND PLAN: Acute on Chronic Hypoxic and Hypercapneic Respiratory Failure Influenza A Pneumonia Acute COPD Exacerbation Atrial Fibrillation with RVR LV Diastolic Dysfunction HTN DM CKD Obstructive Sleep Apnea - continue antibiotics - completed tamiflu - continue medrol - inhaled bronchodilators standing and PRN - O2 to keep SpO2 >90% - monitor Ppeak/Pplat - rate control - continue anticoagulation - daily sedation vacations to assess mental status - spontaneous breathing trials as tolerated - enteral feeds - DVT/GI prophylaxis - continue ICU monitoring critical care time spent in reviewing chart, evaluating patient and formulating plan 35 min
--- NOTE | 2019-09-29 13:55 | CONSULT ---
Consultation: REQUESTING PROVIDER:primary team CONSULT REQUEST: We have been asked to medically evaluate this patient for ( Thrombocytopenia ). HISTORY OF PRESENT ILLNESS:history is taking from chart as pt is intubated sedated This is a 59 y/o woman with a pmhx of Afib (on eliquis), CHF, HTN, Asthma ( intubated in the past), COPD, prior PE, DM, Pulmonary Fibrosis, Sleep Apnea, Renal Insufficiency, OA. Who presents to the ED for worsening shortness of breath x 1 day. Patient is Obtunded, unable to provide HPI. Per ED records: Patient reports she was asymptomatic when she woke up this morning however had worsening shortness of breath throughout the day. EMS reports apartment was thick with smoke when they arrived. Patient denies fever, chills, dizziness, FOX , CP, palpitations. AP, N/V/D, constipation, dysuria. REVIEW OF SYSTEMS:not able to obtaine PHYSICAL EXAMINATION Vital Signs - 24 hr 09/28/19 09/28/19 09/28/19 14:00 16:00 17:16 Temperature 98.1 F 99 F Pulse Rate 93 H 80 Respiratory 18 18 Rate Blood Pressure 175/85 H 135/67 135/67 O2 Sat by Pulse Oximetry (%) 09/28/19 09/28/19 09/28/19 18:00 19:24 20:00 Temperature 99.2 F 99.3 F 100.6 F H Pulse Rate 122 H 106 H Respiratory 19 16 Rate Blood Pressure 145/79 164/77 O2 Sat by Pulse Oximetry (%) 09/28/19 09/28/19 09/28/19 20:45 21:00 23:00 Temperature 99.5 F Pulse Rate 114 H 87 Respiratory 18 18 20 Rate Blood Pressure 155/100 150/80 O2 Sat by Pulse 95 Oximetry (%) 09/29/19 09/29/19 09/29/19 00:15 01:00 02:00 Temperature Pulse Rate 92 H 95 H Respiratory 18 18 18 Rate Blood Pressure 166/88 170/88 O2 Sat by Pulse Oximetry (%) 09/29/19 09/29/19 09/29/19 02:45 03:00 03:15 Temperature Pulse Rate 94 H 108 H 91 H Respiratory 18 18 18 Rate Blood Pressure 182/10 H 175/78 H 170/88 O2 Sat by Pulse Oximetry (%) 09/29/19 09/29/19 09/29/19 04:00 05:00 06:00 Temperature 97.2 F L Pulse Rate 95 H 101 H Respiratory 18 18 18 Rate Blood Pressure 152/78 158/72 O2 Sat by Pulse Oximetry (%) 09/29/19 09/29/19 09/29/19 08:00 10:05 10:43 Temperature 99.1 F Pulse Rate 100 H 115 H 116 H Respiratory 22 H 24 H Rate Blood Pressure 164/96 O2 Sat by Pulse 94 L Oximetry (%) 09/29/19 09/29/19 12:00 12:13 Temperature Pulse Rate 140 H Respiratory 27 H 22 H Rate Blood Pressure 164/106 H O2 Sat by Pulse Oximetry (%) GENERAL: intubated sedation. some blod with mouth secretion HEENT: NCAT, OG tube in place. NECK: No JVD, no lymphadenopathy No breast mass palpated LUNGS: Mechanical Vent sounds. decrease breath sounds at the bases HEART: irregularly irregular, ABDOMEN: Soft, nontender, not distended, + bowel sounds, longtudinal surgical scar , montes in place EXTREMITIES:no edema , left knee surgery NEUROLOGICAL: Sedated SKIN: Warm, dry Laboratory Results - last 24 hr 09/28/19 09/28/19 09/29/19 18:38 22:31 06:10 WBC 4.0 RBC 4.38 Hgb 12.8 Hct 39.7 MCV 90.7 MCH 29.3 MCHC 32.3 RDW 16.0 H Plt Count 74 L D MPV 10.6 D Absolute Neuts (auto) 3.3 Neutrophils % 82.3 Lymphocytes % 8.3 D Monocytes % 8.9 Eosinophils % 0.0 Basophils % 0.5 Nucleated RBC % 0 Anticoagulation Therapy Puncture Site ABG pH ABG pCO2 at Pt Temp ABG pO2 at Pt Temp ABG HCO3 ABG O2 Sat (Measured) ABG O2 Content ABG Base Excess Randy Test O2 Delivery Device Oxygen Flow Rate Vent Mode Vent Rate Mechanical Rate PEEP Pressure Support Vent Sodium Potassium Chloride Carbon Dioxide Anion Gap BUN Creatinine Est GFR (CKD-EPI)AfAm Est GFR (CKD-EPI)NonAf POC Glucometer 157 189 Random Glucose Calcium Phosphorus Magnesium Total Bilirubin AST ALT Alkaline Phosphatase Total Protein Albumin 09/29/19 09/29/19 09/29/19 06:10 06:22 12:25 WBC RBC Hgb Hct MCV MCH MCHC RDW Plt Count MPV Absolute Neuts (auto) Neutrophils % Lymphocytes % Monocytes % Eosinophils % Basophils % Nucleated RBC % Anticoagulation Therapy No Result Required. Puncture Site Right brachial ABG pH 7.40 ABG pCO2 at Pt Temp 51.3 H ABG pO2 at Pt Temp 94.7 ABG HCO3 33.5 H ABG O2 Sat (Measured) 96.9 ABG O2 Content 18.0 ABG Base Excess 8.0 H Randy Test Positive O2 Delivery Device No Result Required. Oxygen Flow Rate 40% Vent Mode Simv mode Vent Rate 8 Mechanical Rate Yes PEEP 5.0 Pressure Support Vent 400 Sodium 145 Potassium 4.0 Chloride 107 Carbon Dioxide 34 H Anion Gap 4 L BUN 62.3 H Creatinine 1.5 H Est GFR (CKD-EPI)AfAm 43.13 Est GFR (CKD-EPI)NonAf 37.21 POC Glucometer 183 Random Glucose 207 H Calcium 8.4 L Phosphorus 3.1 Magnesium 2.8 H Total Bilirubin 0.7 AST 19 ALT 21 Alkaline Phosphatase 68 Total Protein 6.0 L Albumin 2.5 L 09/29/19 12:41 WBC RBC Hgb Hct MCV MCH MCHC RDW Plt Count MPV Absolute Neuts (auto) Neutrophils % Lymphocytes % Monocytes % Eosinophils % Basophils % Nucleated RBC % Anticoagulation Therapy Puncture Site ABG pH ABG pCO2 at Pt Temp ABG pO2 at Pt Temp ABG HCO3 ABG O2 Sat (Measured) ABG O2 Content ABG Base Excess Randy Test O2 Delivery Device Oxygen Flow Rate Vent Mode Vent Rate Mechanical Rate PEEP Pressure Support Vent Sodium Potassium Chloride Carbon Dioxide Anion Gap BUN Creatinine Est GFR (CKD-EPI)AfAm Est GFR (CKD-EPI)NonAf POC Glucometer 246 Random Glucose Calcium Phosphorus Magnesium Total Bilirubin AST ALT Alkaline Phosphatase Total Protein Albumin Active Medications Generic Name Dose Route Start Last Admin Trade Name Freq PRN Reason Stop Dose Admin Acetaminophen 1,000 mg 09/28/19 16:51 09/28/19 22:00 Tylenol Oral Solution - PO 1,000 mg Q6H PRN Administration FEVER Apixaban 2.5 mg 09/25/19 10:00 09/29/19 10:44 Eliquis - PO 2.5 mg BID [facility]OLENE Administration Budesonide/Formoterol Fumarate 2 puff 09/25/19 10:00 09/29/19 10:46 Symbicort 80/4.5mcg - IH Not Given BID [facility]ENE Chlorhexidine Gluconate 1 applic 09/24/19 22:00 09/28/19 21:11 Hibiclens For Decolonization - TP 1 applic HS [facility]ENE Administration Digoxin 0.125 mg 09/25/19 12:00 09/29/19 10:43 Lanoxin - PO 0.125 mg DAILY [facility] Administration Ergocalciferol 50,000 unit 09/29/19 10:00 09/29/19 10:58 Drisdol - PO Not Given We@1000 [facility] Furosemide 40 mg 09/25/19 10:00 09/29/19 10:43 Lasix - PO 40 mg DAILY [facility] Administration Gabapentin 300 mg 09/25/19 14:00 09/29/19 05:06 Neurontin Oral Liquid - PO 300 mg TID [facility] Administration Hydralazine HCl 50 mg 09/25/19 06:00 09/29/19 04:25 Apresoline - PO 50 mg TID [facility] Administration Cefepime HCl 1 gm/ Dextrose 100 mls @ 200 mls/hr 09/25/19 22:00 09/29/19 10: 45 IVPB 200 mls/hr BID [facility]ENE Administration Protocol Midazolam HCl 100 mg in 100 mls @ 1 mls/hr 09/27/19 05:45 09/29/19 08:40 Midazolam 100mg/100ml-0.9%Nacl IVPB Not Given TITR [facility] Protocol 1 MG/HR Insulin Aspart 1 vial 09/25/19 16:30 09/29/19 12:50 Novolog Vial Sliding Scale - SQ 4 units ACHS [facility] Administration Protocol Levalbuterol HCl 0.63 mg 09/25/19 14:00 09/29/19 08:38 Xopenex IH 0.63 mg RTID [facility]ENE Administration Methylprednisolone Sodium Succinate 40 mg 09/25/19 10:00 09/29/19 10:45 Solu-Medrol - IVPUSH 40 mg Q8H-IV [facility] Administration Mupirocin 1 applic 09/24/19 22:00 09/29/19 10:46 Bactroban Ointment (For Decolonization) - NS 09/29/19 21:59 1 applic BID [facility]OLENE Administration Oseltamivir Phosphate 30 mg 09/25/19 10:00 09/29/19 10:44 Tamiflu Oral Suspension - PO 09/30/19 09:59 30 mg DAILY [facility]ENE Administration Pantoprazole Sodium 40 mg 09/25/19 10:45 09/29/19 10:45 Protonix Iv IVPUSH 40 mg DAILY [facility] Administration Verapamil HCl 2.5 mg 09/26/19 11:39 09/29/19 12:39 Calan Injection - IVPUSH 2.5 mg Q6H PRN Administration TACHYCARDIA Verapamil HCl 80 mg 09/28/19 11:36 09/29/19 05:06 Calan - NGT 80 mg TID JOLENE Administration CBC, BMP 09/29/19 06:10 09/29/19 06:10 ASSESSMENT/PLAN: Thrombocytopenia 2/2 infection process coagulation studies folate b12 fibrnigen #Acute on Chronic Hypoxic and Hypercapneic Respiratory Failure #Influenza A #Pneumonia #Acute COPD Exacerbation #Atrial Fibrillation with RVR #LV Diastolic Dysfunction #HTN #DM #CKD #Obstructive Sleep Apnea per ICU team * continue antibiotics, completed tamiflu, cont medrol * cont Eliquis Dispo: We will continue to follow the patient. Thank you for this consultative opportunity. Visit type - Emergency Visit Emergency Visit: Yes ED Registration Date: 09/24/19 Care time: The patient presented to the Emergency Department on the above date and was hospitalized for further evaluation of their emergent condition. - New Patient This patient is new to me today: Yes Date on this admission: 09/29/19 - Critical Care Critical Care patient: Yes Total Critical Care Time (in minutes): 45 Critical Care Statement: The care of this patient involved high complexity decision making to prevent further life threatening deterioration of the patient 's condition and/or to evaluate & treat vital organ system(s) failure or risk of failure. ATTENDING PHYSICIAN STATEMENT I saw and evaluated the patient. I reviewed the resident's note and discussed the case with the resident. I agree with the resident's findings and plan as documented. SUBJECTIVE: OBJECTIVE: ASSESSMENT AND PLAN:
[2019-09-29] MEDS ORDERED: DEXMEDETOMIDINE HCL 200 MCG/2 ML IVPB SCH (14:30)
--- NOTE | 2019-09-29 14:34 | PN ---
Physical Exam: SUBJECTIVE: Patient seen and examined. pt remains intubated. Was breathing over vent overnight. 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 Febrile episodes last temp of 101.3 rectal OBJECTIVE: Vital Signs Period Temp Pulse Resp BP Sys/Salgado Pulse Ox Last 24 Hr 97.2 F-100.6 F 80-140 16-27 135-182/10-106 94-95 GENERAL: on sedation. HEENT: NCAT, OG tube in place. NECK: No JVD LUNGS: Mechanical Vent sounds. scattered ronchi HEART: irregularly irregular ABDOMEN: Soft, nontender, not distended, + bowel sounds EXTREMITIES: 1+ pitting edema NEUROLOGICAL: Sedated SKIN: Warm, dry Laboratory Results - last 24 hr 09/28/19 09/28/19 09/29/19 18:38 22:31 06:10 WBC 4.0 RBC 4.38 Hgb 12.8 Hct 39.7 MCV 90.7 MCH 29.3 MCHC 32.3 RDW 16.0 H Plt Count 74 L D MPV 10.6 D Absolute Neuts (auto) 3.3 Neutrophils % 82.3 Lymphocytes % 8.3 D Monocytes % 8.9 Eosinophils % 0.0 Basophils % 0.5 Nucleated RBC % 0 Anticoagulation Therapy Puncture Site ABG pH ABG pCO2 at Pt Temp ABG pO2 at Pt Temp ABG HCO3 ABG O2 Sat (Measured) ABG O2 Content ABG Base Excess Randy Test O2 Delivery Device Oxygen Flow Rate Vent Mode Vent Rate Mechanical Rate PEEP Pressure Support Vent Sodium Potassium Chloride Carbon Dioxide Anion Gap BUN Creatinine Est GFR (CKD-EPI)AfAm Est GFR (CKD-EPI)NonAf POC Glucometer 157 189 Random Glucose Calcium Phosphorus Magnesium Total Bilirubin AST ALT Alkaline Phosphatase Total Protein Albumin 09/29/19 09/29/19 09/29/19 06:10 06:22 12:25 WBC RBC Hgb Hct MCV MCH MCHC RDW Plt Count MPV Absolute Neuts (auto) Neutrophils % Lymphocytes % Monocytes % Eosinophils % Basophils % Nucleated RBC % Anticoagulation Therapy No Result Required. Puncture Site Right brachial ABG pH 7.40 ABG pCO2 at Pt Temp 51.3 H ABG pO2 at Pt Temp 94.7 ABG HCO3 33.5 H ABG O2 Sat (Measured) 96.9 ABG O2 Content 18.0 ABG Base Excess 8.0 H Randy Test Positive O2 Delivery Device No Result Required. Oxygen Flow Rate 40% Vent Mode Simv mode Vent Rate 8 Mechanical Rate Yes PEEP 5.0 Pressure Support Vent 400 Sodium 145 Potassium 4.0 Chloride 107 Carbon Dioxide 34 H Anion Gap 4 L BUN 62.3 H Creatinine 1.5 H Est GFR (CKD-EPI)AfAm 43.13 Est GFR (CKD-EPI)NonAf 37.21 POC Glucometer 183 Random Glucose 207 H Calcium 8.4 L Phosphorus 3.1 Magnesium 2.8 H Total Bilirubin 0.7 AST 19 ALT 21 Alkaline Phosphatase 68 Total Protein 6.0 L Albumin 2.5 L 09/29/19 12:41 WBC RBC Hgb Hct MCV MCH MCHC RDW Plt Count MPV Absolute Neuts (auto) Neutrophils % Lymphocytes % Monocytes % Eosinophils % Basophils % Nucleated RBC % Anticoagulation Therapy Puncture Site ABG pH ABG pCO2 at Pt Temp ABG pO2 at Pt Temp ABG HCO3 ABG O2 Sat (Measured) ABG O2 Content ABG Base Excess Randy Test O2 Delivery Device Oxygen Flow Rate Vent Mode Vent Rate Mechanical Rate PEEP Pressure Support Vent Sodium Potassium Chloride Carbon Dioxide Anion Gap BUN Creatinine Est GFR (CKD-EPI)AfAm Est GFR (CKD-EPI)NonAf POC Glucometer 246 Random Glucose Calcium Phosphorus Magnesium Total Bilirubin AST ALT Alkaline Phosphatase Total Protein Albumin Active Medications Generic Name Dose Route Start Last Admin Trade Name Freq PRN Reason Stop Dose Admin Acetaminophen 1,000 mg 09/28/19 16:51 09/28/19 22:00 Tylenol Oral Solution - PO 1,000 mg Q6H PRN Administration FEVER Apixaban 2.5 mg 09/25/19 10:00 09/29/19 10:44 Eliquis - PO 2.5 mg BID JOLENE Administration Budesonide/Formoterol Fumarate 2 puff 09/25/19 10:00 09/29/19 10:46 Symbicort 80/4.5mcg - IH Not Given BID JOLENE Chlorhexidine Gluconate 1 applic 09/24/19 22:00 09/28/19 21:11 Hibiclens For Decolonization - TP 1 applic HS JOLENE Administration Digoxin 0.125 mg 09/25/19 12:00 09/29/19 10:43 Lanoxin - PO 0.125 mg DAILY JOLENE Administration Ergocalciferol 50,000 unit 09/29/19 10:00 09/29/19 10:58 Drisdol - PO Not Given We@1000 JOLENE Furosemide 40 mg 09/25/19 10:00 09/29/19 10:43 Lasix - PO 40 mg DAILY JOLENE Administration Gabapentin 300 mg 09/25/19 14:00 09/29/19 14:21 Neurontin Oral Liquid - PO 300 mg TID JOLENE Administration Hydralazine HCl 50 mg 09/25/19 06:00 09/29/19 14:21 Apresoline - PO 50 mg TID JOLENE Administration Cefepime HCl 1 gm/ Dextrose 100 mls @ 200 mls/hr 09/25/19 22:00 09/29/19 10:45 IVPB 200 mls/hr BID JOLENE Administration Protocol Midazolam HCl 100 mg in 100 mls @ 1 mls/hr 09/27/19 05:45 09/29/19 08:40 Midazolam 100mg/100ml-0.9%Nacl IVPB Not Given TITR JOLENE Protocol 1 MG/HR Dexmedetomidine HCl 200 mcg/ 50 mls @ 3.16 mls/hr 09/29/19 14:30 Sodium Chloride IVPB TITR JOLENE 0.2 MCG/KG/HR Insulin Aspart 1 vial 09/25/19 16:30 09/29/19 12:50 Novolog Vial Sliding Scale - SQ 4 units ACHS JOLENE Administration Protocol Levalbuterol HCl 0.63 mg 09/25/19 14:00 09/29/19 08:38 Xopenex IH 0.63 mg RTID JOLENE Administration Methylprednisolone Sodium Succinate 40 mg 09/25/19 10:00 09/29/19 10:45 Solu-Medrol - IVPUSH 40 mg Q8H-IV JOLENE Administration Mupirocin 1 applic 09/24/19 22:00 09/29/19 10:46 Bactroban Ointment (For Decolonization) - NS 09/29/19 21:59 1 applic BID JOLENE Administration Oseltamivir Phosphate 30 mg 09/25/19 10:00 09/29/19 10:44 Tamiflu Oral Suspension - PO 09/30/19 09:59 30 mg DAILY JOLENE Administration Pantoprazole Sodium 40 mg 09/25/19 10:45 09/29/19 10:45 Protonix Iv IVPUSH 40 mg DAILY JOLENE Administration Verapamil HCl 2.5 mg 09/26/19 11:39 01/22/20 12:39 Calan Injection - IVPUSH 2.5 mg Q6H PRN Administration TACHYCARDIA Verapamil HCl 80 mg 09/28/19 11:36 09/29/19 14:21 Calan - NGT 80 mg TID JOLENE Administration ASSESSMENT/PLAN: 59 y/o F PMHx AFib (on Eliquis), CHF, HTN, CKD 3b, COPD/Asthma (requiring intubation in past, current smoker), prior PE, pulmonary fibrosis, TANISHA, DM, presents with SOB and admitted to ICU for AHHRF s/p intubation. Neuro Sedated s/p Intubation - versed,precedex to sedate for vent synchrony off propofol; Daily sedation vacation to access mental status Cardio runs of tachycardia overnight with hypertensive episodes intermittently Hx of AFib (on Eliquis), CHF , HTN -Continue Apixaban 2.5 BID, Lasix 40, Hydralazine 50 TID, Digoxin 0.125 -Per Cardio: Verapamil 80 mg q8h, increase as tolerated by bp and HR, can push IV Verapamil 2.5-5 mg q6h PRN for breakthrough. Limit beta agonists. Repeat echo not needed. -Add Metoprolol 50mg bid as per Cardio recs Pulmonary Acute on Chronic Hypoxic/Hypercapneic Respiratory Failure; now improving. ABG this morning: pH 7.40, pCO2 51.3, pO2 94.7, HCO3 33.5 -Currently on Ventilator (40%/5/400/8); Continue supplemental O2 to maintain SpO2 88-92% -Continue Bronchodilation via Xopenex, Duoneb, Symbicort. Limit beta-agonist given tachycardia -Continue IV SoluMedrol 40mg Q8H -Daily CXR: R upper lobe pathology improvement -monitor Ppeak/Pplat GI -Maintain OG tube; tube feeds started -Continue Protonix 40 QD IVP Renal Cr 1.5 Hx of CKD 3b -Monitor Cr ID ? PNA Influenza A Positive -Continue Cefepime 1gm BID, Vanc 1gm HS (Abx course started on 09/24), Oseltamivir 30(completed) -ID consulted, appreciate recs -UCx neg, urine legionella/strep neg, sputum with normal shelby, blood culture neg x96h -repeat blood and sputum cultures sent in the setting of fever overnight Endo Hx of DM -ISS BGMs ACHS -Continue Gabapentin FEN -No standing fluids -Replete lytes PRN -Tube feed Nepro PPx -DVT: NOAC -GI: PPI LTD -Intubated 09/25/19 -Flores 09/25/19 Dispo:cont ICU care Visit type - Emergency Visit Emergency Visit: Yes ED Registration Date: 09/24/19 Care time: The patient presented to the Emergency Department on the above date and was hospitalized for further evaluation of their emergent condition. - New Patient This patient is new to me today: No - Critical Care Critical Care patient: Yes Total Critical Care Time (in minutes): 35 Critical Care Statement: The care of this patient involved high complexity decision making to prevent further life threatening deterioration of the patient's condition and/or to evaluate & treat vital organ system(s) failure or risk of failure. ATTENDING PHYSICIAN STATEMENT I saw and evaluated the patient. I reviewed the resident's note and discussed the case with the resident. I agree with the resident's findings and plan as documented. SUBJECTIVE: OBJECTIVE: ASSESSMENT AND PLAN:
--- NOTE | 2019-09-29 14:36 | PN ---
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, Physician Chief Complaint: Cards fu Telem AF HR 100-130 Intubated and sedated. - Current Medication List Current Medications: Active Medications Acetaminophen (Tylenol Oral Solution -) 1,000 mg PO Q6H PRN PRN Reason: FEVER Last Admin: 09/28/19 22:00 Dose: 1,000 mg Apixaban (Eliquis -) 2.5 mg PO BID [facility] Last Admin: 09/29/19 10:44 Dose: 2.5 mg Budesonide/Formoterol Fumarate (Symbicort 80/4.5mcg -) 2 puff IH BID [facility] Last Admin: 09/29/19 10:46 Dose: Not Given Chlorhexidine Gluconate (Hibiclens For Decolonization -) 1 applic TP HS [facility] Last Admin: 09/28/19 21:11 Dose: 1 applic Digoxin (Lanoxin -) 0.125 mg PO DAILY [facility] Last Admin: 09/29/19 10:43 Dose: 0.125 mg Ergocalciferol (Drisdol -) 50,000 unit PO We@1000 [facility] Last Admin: 09/29/19 10:58 Dose: Not Given Furosemide (Lasix -) 40 mg PO DAILY [facility] Last Admin: 09/29/19 10:43 Dose: 40 mg Gabapentin (Neurontin Oral Liquid -) 300 mg PO TID [facility] Last Admin: 09/29/19 14:21 Dose: 300 mg Hydralazine HCl (Apresoline -) 50 mg PO TID [facility] Last Admin: 09/29/19 14:21 Dose: 50 mg Cefepime HCl 1 gm/ Dextrose 100 mls @ 200 mls/hr IVPB BID [facility]; Protocol Last Admin: 09/29/19 10:45 Dose: 200 mls/hr Midazolam HCl (Midazolam 100mg/100ml-0.9%Nacl) 100 mg in 100 mls @ 1 mls/hr IVPB TITR [facility]; Protocol Last Admin: 09/29/19 08:40 Dose: Not Given Dexmedetomidine HCl 200 mcg/ (Sodium Chloride) 50 mls @ 3.16 mls/hr IVPB TITR [facility] Insulin Aspart (Novolog Vial Sliding Scale -) 1 vial SQ ACHS [facility]; Protocol Last Admin: 09/29/19 12:50 Dose: 4 units Levalbuterol HCl (Xopenex) 0.63 mg IH RTID [facility] Last Admin: 09/29/19 08:38 Dose: 0.63 mg Methylprednisolone Sodium Succinate (Solu-Medrol -) 40 mg IVPUSH Q8H-IV [facility] Last Admin: 09/29/19 10:45 Dose: 40 mg Mupirocin (Bactroban Ointment (For Decolonization) -) 1 applic NS BID [facility] Stop: 09/29/19 21:59 Last Admin: 09/29/19 10:46 Dose: 1 applic Oseltamivir Phosphate (Tamiflu Oral Suspension -) 30 mg PO DAILY JOLENE Stop: 09/30/19 09:59 Last Admin: 09/29/19 10:44 Dose: 30 mg Pantoprazole Sodium (Protonix Iv) 40 mg IVPUSH DAILY [facility] Last Admin: 09/29/19 10:45 Dose: 40 mg Verapamil HCl (Calan Injection -) 2.5 mg IVPUSH Q6H PRN PRN Reason: TACHYCARDIA Last Admin: 09/29/19 12:39 Dose: 2.5 mg Verapamil HCl (Calan -) 80 mg NGT TID [facility] Last Admin: 09/29/19 14:21 Dose: 80 mg - Objective Vital Signs: Vital Signs Temperature 99.1 F 09/29/19 10:05 Pulse Rate 140 H 09/29/19 12:13 Respiratory Rate 22 H 09/29/19 12:13 Blood Pressure 164/106 H 09/29/19 12:13 O2 Sat by Pulse Oximetry (%) 94 L 09/29/19 08:00 Constitutional: Yes: Well Nourished, No Distress Eyes: Yes: WNL, Conjunctiva Clear HENT: Yes: Atraumatic, Normocephalic Neck: Yes: Supple, Trachea Midline Cardiovascular: Yes: Tachycardia, S1, S2. No: JVD Respiratory: Yes: Regular, CTA Bilaterally Gastrointestinal: Yes: Normal Bowel Sounds Edema: No Peripheral Pulses WNL: Yes Labs: CBC, BMP 09/29/19 06:10 09/29/19 06:10 INR, PTT INR 1.16 (0.83-1.09) H 09/24/19 16:30 Assessment/Plan She is a 59 year old female with a PMH of hypertension, AFIB, CHF, COPD, DM, sleep apnea, and CKD. She presented to the ER with SOB, respiratory failure, was intubated due to hypercapneic respiratory failure. Found with influeza, HCAP and atrial fibrillation with RVR. Echocardiogram 04/26/19 showed normal LV funciton, moderate severe AI, moderate MR, severe TR. Atrial Fibrillation -with RVR in setting of flu and possible PNA -h/o Pafib with sinus andrea when in sinus -expect HR to improve as improves from other conditions -Add Metoprolol 50mg bid Continue Verapamil 80 -cont IV verapamil 2.5-5 mg q6h prn -no need for repeat echo -wean vent as tolerated. -cont tele monitoring in ICU
[2019-09-29] MEDS: DEXMEDETOMIDINE HCL 200 MCG in SODIUM CHLORIDE 48 ML IVPB SCH ×2 (14:40→18:41)
--- NOTE | 2019-09-29 16:12 | PN ---
Teaching Attending Note Name of Resident: Frank Cross ATTENDING PHYSICIAN STATEMENT I saw and evaluated the patient. I reviewed the resident's note and discussed the case with the resident. I agree with the resident's findings and plan as documented. SUBJECTIVE: Patient seen and examined Intubated and sedated Multiple co-morbid medical issues including COPD, asthma, pulmonary fibrosis, sleep apnea, atrial fib, a/c, DM, HBP, CKD. Presented with SOB/dyspnea Chest -x-ray with pulmonary infiltrates and being treated for influenza A with tamiflu. Last Vital Signs Temp Pulse Resp BP Pulse Ox 100.3 F H 144 H 27 H 160/107 H 94 L 09/29/19 14:05 09/29/19 14:05 09/29/19 14:05 09/29/19 14:05 09/29/19 08:00 HEENT: ENRIQUE, EOM Intact Oropharynx: intubated Nodes: Without adenopathy Breasts: Without masses Cor: atrial fib with rapid VR Lungs: Rhonchi anteriorly Abd: Soft, Normal bowel sounds, No organomegaly Ext:No significant edema,SCD Skin: No rashes, Integument intact OBJECTIVE: CBC, BMP 09/29/19 06:10 09/29/19 06:10 INR, PTT INR 1.16 (0.83-1.09) H 09/24/19 16:30 Current Medications Generic Name Dose Route Start Last Admin Trade Name Freq PRN Reason Stop Dose Admin Acetaminophen 1,000 mg 09/28/19 16:51 09/28/19 22:00 Tylenol Oral Solution - PO 1,000 mg Q6H PRN Administration FEVER Apixaban 2.5 mg 09/25/19 10:00 09/29/19 10:44 Eliquis - PO 2.5 mg BID JOLENE Administration Budesonide/Formoterol Fumarate 2 puff 09/25/19 10:00 09/29/19 10:46 Symbicort 80/4.5mcg - IH Not Given BID JOLENE Chlorhexidine Gluconate 1 applic 09/24/19 22:00 09/28/19 21:11 Hibiclens For Decolonization - TP 1 applic HS JOLENE Administration Chlorhexidine Gluconate 15 ml 09/29/19 22:00 Peridex - MM BID JOLENE Digoxin 0.125 mg 09/25/19 12:00 09/29/19 10:43 Lanoxin - PO 0.125 mg DAILY JOLENE Administration Ergocalciferol 50,000 unit 09/29/19 10:00 09/29/19 10:58 Drisdol - PO Not Given We@1000 JOLENE Furosemide 40 mg 09/25/19 10:00 09/29/19 10:43 Lasix - PO 40 mg DAILY JOLENE Administration Gabapentin 300 mg 09/25/19 14:00 09/29/19 14:21 Neurontin Oral Liquid - PO 300 mg TID JOLENE Administration Hydralazine HCl 50 mg 09/25/19 06:00 09/29/19 14:21 Apresoline - PO 50 mg TID JOLENE Administration Cefepime HCl 1 gm/ Dextrose 100 mls @ 200 mls/hr 09/25/19 22:00 09/29/19 10: 45 IVPB 200 mls/hr BID JOLENE Administration Protocol Midazolam HCl 100 mg in 100 mls @ 1 mls/hr 09/27/19 05:45 09/29/19 08:40 Midazolam 100mg/100ml-0.9%Nacl IVPB Not Given TITR JOLENE Protocol 1 MG/HR Dexmedetomidine HCl 200 mcg/ 50 mls @ 3.16 mls/hr 09/29/19 14:30 09/29/19 14: 40 Sodium Chloride IVPB 0.6 mcg/kg/hr TITR JOLENE 9.48 mls/hr Administration 0.2 MCG/KG/HR Insulin Aspart 1 vial 09/25/19 16:30 09/29/19 12:50 Novolog Vial Sliding Scale - SQ 4 units ACHS JOLENE Administration Protocol Levalbuterol HCl 0.63 mg 09/25/19 14:00 09/29/19 08:38 Xopenex IH 0.63 mg RTID JOLENE Administration Methylprednisolone Sodium Succinate 40 mg 09/25/19 10:00 09/29/19 10:45 Solu-Medrol - IVPUSH 40 mg Q8H-IV JOLENE Administration Metoprolol Tartrate 50 mg 09/29/19 22:00 Lopressor - PO BID JOLENE Mupirocin 1 applic 09/24/19 22:00 09/29/19 10:46 Bactroban Ointment (For Decolonization) - NS 09/29/19 21:59 1 applic BID JOLENE Administration Oseltamivir Phosphate 30 mg 09/25/19 10:00 09/29/19 10:44 Tamiflu Oral Suspension - PO 09/30/19 09:59 30 mg DAILY JOLENE Administration Pantoprazole Sodium 40 mg 09/25/19 10:45 09/29/19 10:45 Protonix Iv IVPUSH 40 mg DAILY JOLENE Administration Verapamil HCl 2.5 mg 09/26/19 11:39 09/29/19 12:39 Calan Injection - IVPUSH 2.5 mg Q6H PRN Administration TACHYCARDIA Verapamil HCl 80 mg 09/28/19 11:36 09/29/19 14:21 Calan - NGT 80 mg TID JOLENE Administration ASSESSMENT AND PLAN: Acute on Chronic Hypoxic and Hypercapneic Respiratory Failure Influenza A Pneumonia Acute COPD Exacerbation Atrial Fibrillation with RVR LV Diastolic Dysfunction HTN DM CKD Obstructive Sleep Apnea Review of past records reveals that patient previously with normal platelet count in 04/26---165K . From 06/26---07/27 platelet count 121K--->129K. In 09/27 platelet count -119K. Recent decline in platelets to 86K and 74K. Suspect low grade chronic thrombocytopenia now exacerbated by infection, sepsis , and Flu. Will check coags and screen in view of prior history of thrombocytopenia.
--- NOTE | 2019-09-29 17:56 | PN ---
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, Physician Chief Complaint: Acute respiratory failure Influenza A COPD exacerbation NAM Pneumonia ARLYN History of Present Illness: Still Mechanically vented NAD HR improved - Current Medication List Current Medications: Active Medications Acetaminophen (Tylenol Oral Solution -) 1,000 mg PO Q6H PRN PRN Reason: FEVER Last Admin: 09/28/19 22:00 Dose: 1,000 mg Apixaban (Eliquis -) 2.5 mg PO BID [facility] Last Admin: 09/29/19 10:44 Dose: 2.5 mg Budesonide/Formoterol Fumarate (Symbicort 80/4.5mcg -) 2 puff IH BID [facility] Last Admin: 09/29/19 10:46 Dose: Not Given Chlorhexidine Gluconate (Hibiclens For Decolonization -) 1 applic TP HS [facility] Last Admin: 09/28/19 21:11 Dose: 1 applic Chlorhexidine Gluconate (Peridex -) 15 ml MM BID [facility] Digoxin (Lanoxin -) 0.125 mg PO DAILY [facility] Last Admin: 09/29/19 10:43 Dose: 0.125 mg Ergocalciferol (Drisdol -) 50,000 unit PO We@1000 [facility] Last Admin: 09/29/19 10:58 Dose: Not Given Furosemide (Lasix -) 40 mg PO DAILY [facility] Last Admin: 09/29/19 10:43 Dose: 40 mg Gabapentin (Neurontin Oral Liquid -) 300 mg PO TID [facility] Last Admin: 09/29/19 14:21 Dose: 300 mg Hydralazine HCl (Apresoline -) 50 mg PO TID [facility] Last Admin: 09/29/19 14:21 Dose: 50 mg Cefepime HCl 1 gm/ Dextrose 100 mls @ 200 mls/hr IVPB BID [facility]; Protocol Last Admin: 09/29/19 10:45 Dose: 200 mls/hr Midazolam HCl (Midazolam 100mg/100ml-0.9%Nacl) 100 mg in 100 mls @ 1 mls/hr IVPB TITR [facility]; Protocol Last Admin: 09/29/19 08:40 Dose: Not Given Dexmedetomidine HCl 200 mcg/ (Sodium Chloride) 50 mls @ 3.16 mls/hr IVPB TITR [facility] Last Admin: 09/29/19 14:40 Dose: 0.6 mcg/kg/hr, 9.48 mls/hr Insulin Aspart (Novolog Vial Sliding Scale -) 1 vial SQ ACHS [facility]; Protocol Last Admin: 09/29/19 17:32 Dose: 4 units Levalbuterol HCl (Xopenex) 0.63 mg IH RTID [facility] Last Admin: 09/29/19 14:41 Dose: 0.63 mg Methylprednisolone Sodium Succinate (Solu-Medrol -) 40 mg IVPUSH Q8H-IV [facility] Last Admin: 09/29/19 17:18 Dose: 40 mg Metoprolol Tartrate (Lopressor -) 50 mg PO BID [facility] Mupirocin (Bactroban Ointment (For Decolonization) -) 1 applic NS BID [facility] Stop: 09/29/19 21:59 Last Admin: 09/29/19 10:46 Dose: 1 applic Oseltamivir Phosphate (Tamiflu Oral Suspension -) 30 mg PO DAILY [facility] Stop: 09/30/19 09:59 Last Admin: 09/29/19 10:44 Dose: 30 mg Pantoprazole Sodium (Protonix Iv) 40 mg IVPUSH DAILY [facility] Last Admin: 09/29/19 10:45 Dose: 40 mg Verapamil HCl (Calan Injection -) 2.5 mg IVPUSH Q6H PRN PRN Reason: TACHYCARDIA Last Admin: 09/29/19 12:39 Dose: 2.5 mg Verapamil HCl (Calan -) 80 mg NGT TID [facility] Last Admin: 09/29/19 14:21 Dose: 80 mg - Objective Vital Signs: Vital Signs Temperature 100.3 F H 09/29/19 14:05 Pulse Rate 90 09/29/19 16:00 Respiratory Rate 24 H 09/29/19 16:00 Blood Pressure 138/95 09/29/19 16:00 O2 Sat by Pulse Oximetry (%) 94 L 09/29/19 08:00 Labs: CBC, BMP 09/29/19 06:10 09/29/19 06:10 INR, PTT INR 1.16 (0.83-1.09) H 09/24/19 16:30 Problem List - Problems (1) Influenza A Code(s): J10.1 - FLU DUE TO OTH IDENT INFLUENZA VIRUS W OTH RESP MANIFEST (2) Acute respiratory failure Code(s): J96.00 - ACUTE RESPIRATORY FAILURE, UNSP W HYPOXIA OR HYPERCAPNIA (3) Acute exacerbation of COPD with asthma Code(s): J44.1 - CHRONIC OBSTRUCTIVE PULMONARY DISEASE W (ACUTE) EXACERBATION; J45.901 - UNSPECIFIED ASTHMA WITH (ACUTE) EXACERBATION (4) Pneumonia Code(s): J18.9 - PNEUMONIA, UNSPECIFIED ORGANISM Qualifiers: Pneumonia type: due to unspecified organism Laterality: unspecified laterality Lung location: unspecified part of lung Qualified Code(s): J18.9 - Pneumonia, unspecified organism (5) JOSEPH (acute kidney injury) Code(s): N17.9 - ACUTE KIDNEY FAILURE, UNSPECIFIED (6) Afib Code(s): I48.91 - UNSPECIFIED ATRIAL FIBRILLATION Qualifiers: Atrial fibrillation type: unspecified Qualified Code(s): I48.91 - Unspecified atrial fibrillation
[2019-09-29] MEDS: CHLORHEXIDINE GLUCONATE 0.12% 15ML CUP MM SCH (20:59)
[2019-09-29] MEDS: METOPROLOL TARTRATE 50 MG TABLET (FP) PO SCH (21:00)
[2019-09-29] MEDS: PROPOFOL 1,000,000 MCG/100 ML VIAL IVPB SCH (21:31)
[2019-09-29] MEDS: CHLORHEXIDINE GLUCONATE 4% CLEANSER FOR DECOLONIZATION TP SCH (21:49)
[2019-09-30] MEDS: ACETAMINOPHEN 650 MG/20.3 ML ORAL SOLUTION (CUPS) PO PRN (00:42)
[2019-09-30] MEDS: VERAPAMIL HCL 5 MG/2 ML VIAL IVPUSH PRN ×3 (01:04→16:13)
[2019-09-30] MEDS: methylPREDNISolone NA SUCC 40 MG/1 ML VIAL IVPUSH SCH ×3 (01:05→21:12)
[2019-09-30] MEDS: hydrALAZINE HCL 50 MG TABLET (FP) PO SCH ×3 (05:57→21:18)
[2019-09-30] MEDS: GABAPENTIN 250 MG/5 ML ORAL SOLUTION, 470 ML BOTTLE PO SCH ×3 (05:57→21:19)
[2019-09-30] MEDS: VERAPAMIL HCL 80 MG TABLET NGT SCH ×3 (05:57→21:18)
[2019-09-30] MEDS: INSULIN SLIDING SCALE (NOVOLOG) 1 VIAL SQ SCH ×4 (06:00→21:15)
[2019-09-30] MEDS ORDERED: PROPOFOL 1,000,000 MCG/100 ML VIAL ONE (06:18)
[2019-09-30] MEDS: PROPOFOL 1,000,000 MCG/100 ML VIAL IVPB SCH ×3 (06:21→21:18)
[2019-09-30 06:55] LABS: BASO % 0.4 % (0-2.0); HEMATOCRIT 40.9 % (32.4-45.2); HEMOGLOBIN 13.2 GM/dL (10.7-15.3); LYMPH % 6.8 % (8-40); MCH 29.5 pg (25.7-33.7); MCHC 32.4 g/dl (32.0-36.0); MEAN PLT VOLUME 10.7 fl (7.5-11.1); MONO % 7.1 % (3.8-10.2); NEUT % 85.7 % (42.8-82.8); PLATELET COUNT 73 K/MM3 (134-434); RBC 4.49 M/mm3 (3.60-5.2); RDW 16.1 % (11.6-15.6); WHITE BLOOD COUNT 6.9 K/mm3 (4.0-10.0)
[2019-09-30 07:00] LABS: INR 1.16 (0.83-1.09); PROTHROMBIN TIME (PATIENT) 13.7 SEC (9.7-13.0)
[2019-09-30 08:13] LABS: ALBUMIN 2.6 g/dl (3.4-5.0); BILIRUBIN,TOTAL 0.8 mg/dL (0.2-1); BLOOD UREA NITROGEN 64.6 mg/dL (7-18); CALCIUM 8.7 mg/dL (8.5-10.1); CREATININE 1.5 mg/dL (0.55-1.3); MAGNESIUM 2.9 mg/dL (1.8-2.4); PHOSPHOROUS 2.8 mg/dL (2.5-4.9); POTASSIUM 3.8 mmol/L (3.5-5.1)
[2019-09-30] MEDS: LEVALBUTEROL HCL 0.63 MG/3 ML VIAL.NEB. IH SCH ×3 (08:30→20:48)
[2019-09-30] MEDS ORDERED: PT OWN MED DRAWER 7, Y5N ONE ×3 (09:09→20:59)
[2019-09-30] MEDS ORDERED: DEXTROSE 5%-WATER 100 ML IVPB ONE ×2 (09:09→20:59)
[2019-09-30] MEDS ORDERED: CEFEPIME HCL 1 GM VIAL (RESTRICTED TO ID) ONE ×2 (09:09→20:59)
[2019-09-30] MEDS: PANTOPRAZOLE SODIUM 40 MG VIAL IVPUSH SCH (09:41)
[2019-09-30] MEDS: CHLORHEXIDINE GLUCONATE 0.12% 15ML CUP MM SCH ×2 (09:41→21:12)
[2019-09-30] MEDS: CEFEPIME 1 GM in DEXTROSE 5%-WATER 100 ML IVPB SCH ×2 (09:41→21:13)
[2019-09-30] MEDS: DIGOXIN 0.125 MG TABLET (FP) PO SCH (09:59)
[2019-09-30] MEDS: APIXABAN 2.5 MG TABLET PO SCH ×2 (09:59→21:18)
[2019-09-30] MEDS: LISINOPRIL 5 MG TABLET (FP) PO SCH (09:59)
[2019-09-30] MEDS: BUDESONIDE/FORMETEROL FUMARATE 80/4.5 mcg INHALER IH SCH ×2 (09:59→21:19)
[2019-09-30] MEDS: FUROSEMIDE 40 MG TABLET (FP) PO SCH (09:59)
[2019-09-30] MEDS: METOPROLOL TARTRATE 50 MG TABLET (FP) PO SCH ×2 (09:59→21:18)
--- NOTE | 2019-09-30 11:19 | PN ---
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, Physician Chief Complaint: INTUBATED SEDATED EVENTS AND NOTES REVIEWED - Current Medication List Current Medications: Active Medications Acetaminophen (Tylenol Oral Solution -) 1,000 mg PO Q6H PRN PRN Reason: FEVER Last Admin: 09/30/19 00:42 Dose: 1,000 mg Apixaban (Eliquis -) 2.5 mg PO BID [facility] Last Admin: 09/30/19 09:59 Dose: 2.5 mg Budesonide/Formoterol Fumarate (Symbicort 80/4.5mcg -) 2 puff IH BID [facility] Last Admin: 09/30/19 09:59 Dose: Not Given Chlorhexidine Gluconate (Hibiclens For Decolonization -) 1 applic TP HS [facility] Last Admin: 09/29/19 21:49 Dose: 1 applic Chlorhexidine Gluconate (Peridex -) 15 ml MM BID [facility] Last Admin: 09/30/19 09:41 Dose: 15 ml Digoxin (Lanoxin -) 0.125 mg PO DAILY [facility] Last Admin: 09/30/19 09:59 Dose: 0.125 mg Ergocalciferol (Drisdol -) 50,000 unit PO We@1000 [facility] Last Admin: 09/29/19 10:58 Dose: Not Given Furosemide (Lasix -) 40 mg PO DAILY [facility] Last Admin: 09/30/19 09:59 Dose: 40 mg Gabapentin (Neurontin Oral Liquid -) 300 mg PO TID [facility] Last Admin: 09/30/19 05:57 Dose: 300 mg Hydralazine HCl (Apresoline -) 50 mg PO TID [facility] Last Admin: 09/30/19 05:57 Dose: 50 mg Cefepime HCl 1 gm/ Dextrose 100 mls @ 200 mls/hr IVPB BID [facility]; Protocol Last Admin: 09/30/19 09:41 Dose: 200 mls/hr Midazolam HCl (Midazolam 100mg/100ml-0.9%Nacl) 100 mg in 100 mls @ 1 mls/hr IVPB TITR [facility]; Protocol Last Admin: 09/29/19 08:40 Dose: Not Given Dexmedetomidine HCl 200 mcg/ (Sodium Chloride) 50 mls @ 3.16 mls/hr IVPB TITR [facility] Last Titration: 09/30/19 02:00 Dose: 0 mcg/kg/hr, 0 mls/hr Propofol (Diprivan -) 1,000,000 mcg in 100 mls @ 1.897 mls/hr IVPB TITR [facility]; Protocol Last Admin: 09/30/19 06:21 Dose: 15 mcg/kg/min, 5.691 mls/hr Insulin Aspart (Novolog Vial Sliding Scale -) 1 vial SQ ACHS [facility]; Protocol Last Admin: 09/30/19 06:00 Dose: 2 units Levalbuterol HCl (Xopenex) 0.63 mg IH RTID [facility] Last Admin: 09/30/19 08:30 Dose: 0.63 mg Lisinopril (Prinivil) 5 mg PO DAILY [facility] Last Admin: 09/30/19 09:59 Dose: 5 mg Methylprednisolone Sodium Succinate (Solu-Medrol -) 40 mg IVPUSH BID [facility] Last Admin: 09/30/19 09:42 Dose: 40 mg Metoprolol Tartrate (Lopressor -) 50 mg PO BID [facility] Last Admin: 09/30/19 09:59 Dose: 50 mg Pantoprazole Sodium (Protonix Iv) 40 mg IVPUSH DAILY [facility] Last Admin: 09/30/19 09:41 Dose: 40 mg Verapamil HCl (Calan Injection -) 2.5 mg IVPUSH Q6H PRN PRN Reason: TACHYCARDIA Last Admin: 09/30/19 09:40 Dose: 2.5 mg Verapamil HCl (Calan -) 80 mg NGT TID [facility] Last Admin: 09/30/19 05:57 Dose: 80 mg - Objective Vital Signs: Vital Signs Temperature 98.2 F 09/30/19 09:51 Pulse Rate 122 H 09/30/19 09:59 Respiratory Rate 24 H 09/30/19 09:51 Blood Pressure 157/97 09/30/19 09:51 O2 Sat by Pulse Oximetry (%) 94 L 09/29/19 08:00 Constitutional: Yes: Other Cardiovascular: Yes: Pulse Irregular Respiratory: Yes: Diminished, Mechanically Ventilated Gastrointestinal: Yes: Soft, Distention Genitourinary: Yes: Flores Present Edema: Yes Neurological: Yes: Other (SEDATED) Labs: CBC, BMP 09/30/19 06:18 09/30/19 06:18 INR, PTT INR 1.16 (0.83-1.09) H 09/30/19 06:18 Fibrinogen 247.0 mg/dL (238-498) 09/30/19 06:18 Problem List - Problems (1) Acute exacerbation of COPD with asthma Code(s): J44.1 - CHRONIC OBSTRUCTIVE PULMONARY DISEASE W (ACUTE) EXACERBATION; J45.901 - UNSPECIFIED ASTHMA WITH (ACUTE) EXACERBATION (2) Acute respiratory failure Code(s): J96.00 - ACUTE RESPIRATORY FAILURE, UNSP W HYPOXIA OR HYPERCAPNIA (3) Influenza A Code(s): J10.1 - FLU DUE TO OTH IDENT INFLUENZA VIRUS W OTH RESP MANIFEST (4) Pneumonia Code(s): J18.9 - PNEUMONIA, UNSPECIFIED ORGANISM Qualifiers: Pneumonia type: due to unspecified organism Laterality: unspecified laterality Lung location: unspecified part of lung Qualified Code(s): J18.9 - Pneumonia, unspecified organism (5) JOSEPH (acute kidney injury) Code(s): N17.9 - ACUTE KIDNEY FAILURE, UNSPECIFIED (6) Abnormal CT of the chest Code(s): R93.89 - ABNORMAL FINDINGS ON DX IMAGING OF OT BODY STRUCTURES (7) Acute exacerbation of chronic obstructive pulmonary disease (COPD) Code(s): J44.1 - CHRONIC OBSTRUCTIVE PULMONARY DISEASE W (ACUTE) EXACERBATION (8) Acute kidney injury superimposed on CKD Code(s): N17.9 - ACUTE KIDNEY FAILURE, UNSPECIFIED; N18.9 - CHRONIC KIDNEY DISEASE, UNSPECIFIED (9) Acute on chronic diastolic (congestive) heart failure Code(s): I50.33 - ACUTE ON CHRONIC DIASTOLIC (CONGESTIVE) HEART FAILURE (10) Afib Code(s): I48.91 - UNSPECIFIED ATRIAL FIBRILLATION Qualifiers: Atrial fibrillation type: unspecified Qualified Code(s): I48.91 - Unspecified atrial fibrillation (11) Anxiety and depression Code(s): F41.9 - ANXIETY DISORDER, UNSPECIFIED; F32.9 - MAJOR DEPRESSIVE DISORDER, SINGLE EPISODE, UNSPECIFIED (12) Leg edema Code(s): R60.0 - LOCALIZED EDEMA (13) Cigarette nicotine dependence Code(s): F17.200 - NICOTINE DEPENDENCE, UNSPECIFIED, UNCOMPLICATED Assessment/Plan VENT SUPPORT VIA PULMONARY WEAN OFF TOLERATED IV ABX FLU PRECAUTIONS ID AND NEPHROLOGY FOLLOW UP DVT PROPHYLAXIS NGT NUTRITION
--- NOTE | 2019-09-30 11:31 | PN ---
Teaching Attending Note Name of Resident: Christine Patrick ATTENDING PHYSICIAN STATEMENT I saw and evaluated the patient. I reviewed the resident's note and discussed the case with the resident. I agree with the resident's findings and plan as documented. SUBJECTIVE: Pt seen and examined in the ICU. Remains intubated, arousable on sedation. Tachypneic with labored breaths on CPAP/PS. Low grade fevers, recultured. OBJECTIVE: Vital Signs Period Temp Pulse Resp BP Sys/Salgado Pulse Ox Last 24 Hr 97.8 F-100.4 F 90-144 18-27 138-195/82-107 Intake & Output 09/27/19 09/28/19 09/29/19 09/30/19 23:59 23:59 23:59 23:59 Intake Total 555.4 1708.5 1673.1 682 Output Total 2350 1450 1300 1300 Balance -1794.6 258.5 373.1 -618 Weight 64.637 kg 64.637 kg 63.231 kg 63.231 kg Gen: intubated, sedated Heart: RRR Lung: scattered rhonchi Abd: soft, nontender Ext: + edema CBC, BMP 09/30/19 06:18 09/30/19 06:18 Active Medications Acetaminophen (Tylenol Oral Solution -) 1,000 mg PO Q6H PRN PRN Reason: FEVER Last Admin: 09/30/19 00:42 Dose: 1,000 mg Apixaban (Eliquis -) 2.5 mg PO BID [facility] Last Admin: 09/30/19 09:59 Dose: 2.5 mg Budesonide/Formoterol Fumarate (Symbicort 80/4.5mcg -) 2 puff IH BID [facility] Last Admin: 09/30/19 09:59 Dose: Not Given Chlorhexidine Gluconate (Hibiclens For Decolonization -) 1 applic TP HS [facility] Last Admin: 09/29/19 21:49 Dose: 1 applic Chlorhexidine Gluconate (Peridex -) 15 ml MM BID [facility] Last Admin: 09/30/19 09:41 Dose: 15 ml Digoxin (Lanoxin -) 0.125 mg PO DAILY [facility] Last Admin: 09/30/19 09:59 Dose: 0.125 mg Ergocalciferol (Drisdol -) 50,000 unit PO We@1000 [facility] Last Admin: 09/29/19 10:58 Dose: Not Given Furosemide (Lasix -) 40 mg PO DAILY [facility] Last Admin: 09/30/19 09:59 Dose: 40 mg Gabapentin (Neurontin Oral Liquid -) 300 mg PO TID [facility] Last Admin: 09/30/19 05:57 Dose: 300 mg Hydralazine HCl (Apresoline -) 50 mg PO TID [facility] Last Admin: 09/30/19 05:57 Dose: 50 mg Hydralazine HCl (Apresoline Injection -) 10 mg IVPUSH Q6H PRN PRN Reason: HYPERTENSION Cefepime HCl 1 gm/ Dextrose 100 mls @ 200 mls/hr IVPB BID [facility]; Protocol Last Admin: 09/30/19 09:41 Dose: 200 mls/hr Midazolam HCl (Midazolam 100mg/100ml-0.9%Nacl) 100 mg in 100 mls @ 1 mls/hr IVPB TITR [facility]; Protocol Last Admin: 09/29/19 08:40 Dose: Not Given Dexmedetomidine HCl 200 mcg/ (Sodium Chloride) 50 mls @ 3.16 mls/hr IVPB TITR [facility] Last Titration: 09/30/19 02:00 Dose: 0 mcg/kg/hr, 0 mls/hr Propofol (Diprivan -) 1,000,000 mcg in 100 mls @ 1.897 mls/hr IVPB TITR [facility]; Protocol Last Admin: 09/30/19 06:21 Dose: 15 mcg/kg/min, 5.691 mls/hr Famotidine/Sodium Chloride (Pepcid 20 Mg Premixed Ivpb -) 20 mg in 50 mls @ 100 mls/hr IVPB BID [facility] Insulin Aspart (Novolog Vial Sliding Scale -) 1 vial SQ ACHS [facility]; Protocol Last Admin: 09/30/19 06:00 Dose: 2 units Levalbuterol HCl (Xopenex) 0.63 mg IH RTID [facility] Last Admin: 09/30/19 08:30 Dose: 0.63 mg Lisinopril (Prinivil) 5 mg PO DAILY [facility] Last Admin: 09/30/19 09:59 Dose: 5 mg Methylprednisolone Sodium Succinate (Solu-Medrol -) 40 mg IVPUSH BID [facility] Last Admin: 09/30/19 09:42 Dose: 40 mg Metoprolol Tartrate (Lopressor -) 50 mg PO BID [facility] Last Admin: 09/30/19 09:59 Dose: 50 mg Verapamil HCl (Calan Injection -) 2.5 mg IVPUSH Q6H PRN PRN Reason: TACHYCARDIA Last Admin: 09/30/19 09:40 Dose: 2.5 mg Verapamil HCl (Calan -) 80 mg NGT TID [facility] Last Admin: 09/30/19 05:57 Dose: 80 mg ASSESSMENT AND PLAN: Acute on Chronic Hypoxic and Hypercapneic Respiratory Failure Influenza A Pneumonia Acute COPD Exacerbation Atrial Fibrillation with RVR LV Diastolic Dysfunction HTN DM CKD Obstructive Sleep Apnea - continue antibiotics - f/u cultures, send UA, UCx - completed tamiflu - continue medrol - inhaled bronchodilators standing and PRN - O2 to keep SpO2 >90% - monitor Ppeak/Pplat - rate control - continue anticoagulation - daily sedation vacations to assess mental status - spontaneous breathing trials as tolerated - enteral feeds - DVT/GI prophylaxis - continue ICU monitoring critical care time spent in reviewing chart, evaluating patient and formulating plan 35 min
--- NOTE | 2019-09-30 12:12 | PN ---
Physical Exam: SUBJECTIVE: Patient seen and examined. propofol restarted overnight. off versed. continues to have intermittent fever spikes and hypertensive episodes. failed weaning trial s/p sedation holiday. pt became tachypnic with labored breathing. OBJECTIVE: Vital Signs Period Temp Pulse Resp BP Sys/Salgado Pulse Ox Last 24 Hr 97.8 F-100.4 F 90-144 18-27 138-195/82-107 GENERAL: on sedation. HEENT: NCAT, OG tube in place. NECK: No JVD LUNGS: Mechanical Vent sounds. scattered ronchi HEART: irregularly irregular ABDOMEN: Soft, nontender, not distended, + bowel sounds EXTREMITIES: 1+ pitting edema NEUROLOGICAL: Sedated SKIN: Warm, dry Laboratory Results - last 24 hr 09/29/19 09/29/19 09/29/19 12:25 12:41 17:29 WBC RBC Hgb Hct MCV MCH MCHC RDW Plt Count MPV Absolute Neuts (auto) Neutrophils % Lymphocytes % Monocytes % Eosinophils % Basophils % Nucleated RBC % PT with INR INR PTT (Actin FS) Fibrinogen Anticoagulation Therapy No Result Required. Puncture Site Right brachial ABG pH 7.40 ABG pCO2 at Pt Temp 51.3 H ABG pO2 at Pt Temp 94.7 ABG HCO3 33.5 H ABG O2 Sat (Measured) 96.9 ABG O2 Content 18.0 ABG Base Excess 8.0 H Randy Test Positive O2 Delivery Device No Result Required. Oxygen Flow Rate 40% Vent Mode Simv mode Vent Rate 8 Mechanical Rate Yes PEEP 5.0 Pressure Support Vent 400 Sodium Potassium Chloride Carbon Dioxide Anion Gap BUN Creatinine Est GFR (CKD-EPI)AfAm Est GFR (CKD-EPI)NonAf POC Glucometer 246 203 Random Glucose Calcium Phosphorus Magnesium Iron TIBC Iron Saturation Unsaturated IBC Ferritin Total Bilirubin AST ALT Alkaline Phosphatase Total Protein Albumin Vitamin B12 Serum Folate TSH 09/29/19 09/30/19 09/30/19 21:07 05:29 06:18 WBC 6.9 RBC 4.49 Hgb 13.2 Hct 40.9 MCV 91.0 MCH 29.5 MCHC 32.4 RDW 16.1 H Plt Count 73 L MPV 10.7 Absolute Neuts (auto) 5.9 Neutrophils % 85.7 H Lymphocytes % 6.8 L Monocytes % 7.1 Eosinophils % 0.0 Basophils % 0.4 Nucleated RBC % 0 PT with INR INR PTT (Actin FS) Fibrinogen Anticoagulation Therapy Puncture Site ABG pH ABG pCO2 at Pt Temp ABG pO2 at Pt Temp ABG HCO3 ABG O2 Sat (Measured) ABG O2 Content ABG Base Excess Randy Test O2 Delivery Device Oxygen Flow Rate Vent Mode Vent Rate Mechanical Rate PEEP Pressure Support Vent Sodium Potassium Chloride Carbon Dioxide Anion Gap BUN Creatinine Est GFR (CKD-EPI)AfAm Est GFR (CKD-EPI)NonAf POC Glucometer 166 192 Random Glucose Calcium Phosphorus Magnesium Iron TIBC Iron Saturation Unsaturated IBC Ferritin Total Bilirubin AST ALT Alkaline Phosphatase Total Protein Albumin Vitamin B12 Serum Folate TSH 09/30/19 09/30/19 09/30/19 06:18 06:18 06:18 WBC RBC Hgb Hct MCV MCH MCHC RDW Plt Count MPV Absolute Neuts (auto) Neutrophils % Lymphocytes % Monocytes % Eosinophils % Basophils % Nucleated RBC % PT with INR 13.70 H INR 1.16 H PTT (Actin FS) 33.0 Fibrinogen Anticoagulation Therapy Puncture Site ABG pH ABG pCO2 at Pt Temp ABG pO2 at Pt Temp ABG HCO3 ABG O2 Sat (Measured) ABG O2 Content ABG Base Excess Randy Test O2 Delivery Device Oxygen Flow Rate Vent Mode Vent Rate Mechanical Rate PEEP Pressure Support Vent Sodium 148 H Potassium 3.8 Chloride 109 H Carbon Dioxide 36 H Anion Gap 3 L BUN 64.6 H Creatinine 1.5 H Est GFR (CKD-EPI)AfAm 43.13 Est GFR (CKD-EPI)NonAf 37.21 POC Glucometer Random Glucose 217 H Calcium 8.7 Phosphorus 2.8 Magnesium 2.9 H Iron TIBC Iron Saturation Unsaturated IBC Ferritin Total Bilirubin 0.8 AST 17 ALT 22 Alkaline Phosphatase 73 Total Protein 6.0 L Albumin 2.6 L Vitamin B12 487 Serum Folate 16 TSH 0.05 L 09/30/19 09/30/19 09/30/19 06:18 06:18 11:37 WBC RBC Hgb Hct MCV MCH MCHC RDW Plt Count MPV Absolute Neuts (auto) Neutrophils % Lymphocytes % Monocytes % Eosinophils % Basophils % Nucleated RBC % PT with INR INR PTT (Actin FS) Fibrinogen 247.0 Anticoagulation Therapy Puncture Site ABG pH ABG pCO2 at Pt Temp ABG pO2 at Pt Temp ABG HCO3 ABG O2 Sat (Measured) ABG O2 Content ABG Base Excess Randy Test O2 Delivery Device Oxygen Flow Rate Vent Mode Vent Rate Mechanical Rate PEEP Pressure Support Vent Sodium Potassium Chloride Carbon Dioxide Anion Gap BUN Creatinine Est GFR (CKD-EPI)AfAm Est GFR (CKD-EPI)NonAf POC Glucometer 176 Random Glucose Calcium Phosphorus Magnesium Iron 120 TIBC 195 L Iron Saturation 61 H Unsaturated IBC 75 L Ferritin 218.9 Total Bilirubin AST ALT Alkaline Phosphatase Total Protein Albumin Vitamin B12 Serum Folate TSH Active Medications Generic Name Dose Route Start Last Admin Trade Name Freq PRN Reason Stop Dose Admin Acetaminophen 1,000 mg 09/28/19 16:51 09/30/19 00:42 Tylenol Oral Solution - PO 1,000 mg Q6H PRN Administration FEVER Apixaban 2.5 mg 09/25/19 10:00 09/30/19 09:59 Eliquis - PO 2.5 mg BID [facility] Administration Budesonide/Formoterol Fumarate 2 puff 09/25/19 10:00 09/30/19 09:59 Symbicort 80/4.5mcg - IH Not Given BID [facility]ENE Chlorhexidine Gluconate 1 applic 09/24/19 22:00 09/29/19 21:49 Hibiclens For Decolonization - TP 1 applic HS [facility] Administration Chlorhexidine Gluconate 15 ml 09/29/19 22:00 09/30/19 09:41 Peridex - MM 15 ml BID [facility] Administration Digoxin 0.125 mg 09/25/19 12:00 09/30/19 09:59 Lanoxin - PO 0.125 mg DAILY [facility] Administration Ergocalciferol 50,000 unit 09/29/19 10:00 09/29/19 10:58 Drisdol - PO Not Given We@1000 [facility] Furosemide 40 mg 09/25/19 10:00 09/30/19 09:59 Lasix - PO 40 mg DAILY [facility] Administration Gabapentin 300 mg 09/25/19 14:00 09/30/19 05:57 Neurontin Oral Liquid - PO 300 mg TID [facility] Administration Hydralazine HCl 50 mg 09/25/19 06:00 09/30/19 05:57 Apresoline - PO 50 mg TID [facility] Administration Hydralazine HCl 10 mg 09/30/19 11:28 Apresoline Injection - IVPUSH Q6H PRN HYPERTENSION Cefepime HCl 1 gm/ Dextrose 100 mls @ 200 mls/hr 09/25/19 22:00 09/30/19 09:41 IVPB 200 mls/hr BID [facility] Administration Protocol Midazolam HCl 100 mg in 100 mls @ 1 mls/hr 09/27/19 05:45 09/29/19 08:40 Midazolam 100mg/100ml-0.9%Nacl IVPB Not Given TITR [facility] Protocol 1 MG/HR Dexmedetomidine HCl 200 mcg/ 50 mls @ 3.16 mls/hr 09/29/19 14:30 09/30/19 02:00 Sodium Chloride IVPB 0 mcg/kg/hr TITR [facility] 0 mls/hr Titration 0.2 MCG/KG/HR Propofol 1,000,000 mcg in 100 mls @ 1.897 mls/hr 09/29/19 21:15 09/30/19 06:21 Diprivan - IVPB 15 mcg/kg/min TITR [facility] 5.691 mls/hr Administration Protocol 5 MCG/KG/MIN Famotidine/Sodium Chloride 20 mg in 50 mls @ 100 mls/hr 09/30/19 22:00 Pepcid 20 Mg Premixed Ivpb - IVPB BID [facility] Fentanyl 500 mcg/ Dextrose 100 mls @ 5 mls/hr 09/30/19 11:45 IVPB TITR [facility] Protocol 25 MCG/HR Insulin Aspart 1 vial 09/25/19 16:30 09/30/19 11:42 Novolog Vial Sliding Scale - SQ 2 units ACHS [facility] Administration Protocol Levalbuterol HCl 0.63 mg 09/25/19 14:00 09/30/19 08:30 Xopenex IH 0.63 mg RTID [facility] Administration Lisinopril 5 mg 09/30/19 10:00 09/30/19 09:59 Prinivil PO 5 mg DAILY [facility] Administration Methylprednisolone Sodium Succinate 40 mg 09/30/19 10:00 09/30/19 09:42 Solu-Medrol - IVPUSH 40 mg BID [facility] Administration Metoprolol Tartrate 50 mg 09/29/19 22:00 09/30/19 09:59 Lopressor - PO 50 mg BID [facility] Administration Verapamil HCl 2.5 mg 09/26/19 11:39 09/30/19 09:40 Calan Injection - IVPUSH 2.5 mg Q6H PRN Administration TACHYCARDIA Verapamil HCl 80 mg 09/28/19 11:36 09/30/19 05:57 Calan - NGT 80 mg TID [facility] Administration ASSESSMENT/PLAN: 59 y/o F PMHx AFib (on Eliquis), CHF, HTN, CKD 3b, COPD/Asthma (requiring intubation in past, current smoker), prior PE, pulmonary fibrosis, TANISHA, DM, presents with SOB and admitted to ICU for AHHRF s/p intubation. Neuro Sedated s/p Intubation -propofol and fentanyl to sedate for vent synchrony;weaned off versed -Daily sedation vacation to access mental status Cardio runs of tachycardia overnight with hypertensive episodes intermittently Hx of AFib (on Eliquis), CHF , HTN -Continue Apixaban 2.5 BID, Lasix 40, Hydralazine 50 TID, Digoxin 0.125 -decreased solumedrol frequency to Q12 to assess for contribution to elevated BP. -hydralizine IVPUSH Q6h for hypertension episodes -Per Cardio: Verapamil 80 mg q8h, can push IV Verapamil 2.5-5 mg q6h PRN for breakthrough. -Add Metoprolol 50mg bid as per Cardio recs Pulmonary Acute on Chronic Hypoxic/Hypercapneic Respiratory Failure; now improving. last ABG : pH 7.40, pCO2 51.3, pO2 94.7, HCO3 33.5 -Currently on Ventilator (40%/5/400/8); Continue supplemental O2 to maintain SpO2 88-92% -Continue Bronchodilation via Xopenex, Duoneb, Symbicort. Limit beta-agonist given tachycardia -Continue IV SoluMedrol 40mg Q12H -Daily CXR : improved -monitor Ppeak/Pplat GI -Maintain OG tube; tube feeds started -Continue Protonix 40 QD IVP Renal Cr 1.5. BUN 64.6 -Hx of CKD 3b -increased free water to 250 Q6h in addition to tube feed free water -Monitor Cr ID ? PNA Influenza A Positive -on Cefepime 1gm BID, Vanc 1gm HS (Abx course started on 09/24), Oseltamivir 30(completed) -ID consulted, pending recs for continuing current antibiotics specially cefepime in the setting of thrombocytopenia at 73k (and down trending) -UCx neg, urine legionella/strep neg, sputum with normal shelby, blood culture neg x96h -repeat blood and sputum cultures pending results -UA and urine culture sent in the setting of continued fever spikes overnight Heme/ONC -thrombocytopenia. current at 73k -poss due to medication,or infectious state -switched protonix to famotidine 20 BID -Heme on board, appreciate recs Endo -BG in the high 200s -Hx of DM -ISS BGMs ACHS -Continue Gabapentin FEN -No standing fluids -Replete lytes PRN -Tube feed Nepro PPx -DVT: NOAC -GI: PPI LTD -Intubated 09/25/19 -Flores 09/30/19 Dispo:cont ICU care Visit type - Emergency Visit Emergency Visit: Yes ED Registration Date: 09/24/19 Care time: The patient presented to the Emergency Department on the above date and was hospitalized for further evaluation of their emergent condition. - New Patient This patient is new to me today: No - Critical Care Critical Care patient: Yes Total Critical Care Time (in minutes): 35 Critical Care Statement: The care of this patient involved high complexity decision making to prevent further life threatening deterioration of the patient's condition and/or to evaluate & treat vital organ system(s) failure or risk of failure. ATTENDING PHYSICIAN STATEMENT I saw and evaluated the patient. I reviewed the resident's note and discussed the case with the resident. I agree with the resident's findings and plan as documented. SUBJECTIVE: OBJECTIVE: ASSESSMENT AND PLAN:
[2019-09-30] MEDS: FENTANYL INJECTION 500 MCG in DEXTROSE 5%-WATER - 90 ML IVPB SCH (13:20)
--- NOTE | 2019-09-30 13:29 | PN ---
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, Physician History of Present Illness: Pt seen and examined at bedside. She remains in the ICU. She remains intubated. - Current Medication List Current Medications: Active Medications Acetaminophen (Tylenol Oral Solution -) 1,000 mg PO Q6H PRN PRN Reason: FEVER Last Admin: 09/30/19 00:42 Dose: 1,000 mg Apixaban (Eliquis -) 2.5 mg PO BID [facility] Last Admin: 09/30/19 09:59 Dose: 2.5 mg Budesonide/Formoterol Fumarate (Symbicort 80/4.5mcg -) 2 puff IH BID [facility] Last Admin: 09/30/19 09:59 Dose: Not Given Chlorhexidine Gluconate (Hibiclens For Decolonization -) 1 applic TP HS [facility] Last Admin: 09/29/19 21:49 Dose: 1 applic Chlorhexidine Gluconate (Peridex -) 15 ml MM BID [facility] Last Admin: 09/30/19 09:41 Dose: 15 ml Digoxin (Lanoxin -) 0.125 mg PO DAILY [facility] Last Admin: 09/30/19 09:59 Dose: 0.125 mg Ergocalciferol (Drisdol -) 50,000 unit PO We@1000 [facility] Last Admin: 09/29/19 10:58 Dose: Not Given Furosemide (Lasix -) 40 mg PO DAILY [facility] Last Admin: 09/30/19 09:59 Dose: 40 mg Gabapentin (Neurontin Oral Liquid -) 300 mg PO TID [facility] Last Admin: 09/30/19 05:57 Dose: 300 mg Hydralazine HCl (Apresoline -) 50 mg PO TID [facility] Last Admin: 09/30/19 05:57 Dose: 50 mg Hydralazine HCl (Apresoline Injection -) 10 mg IVPUSH Q6H PRN PRN Reason: HYPERTENSION Cefepime HCl 1 gm/ Dextrose 100 mls @ 200 mls/hr IVPB BID [facility]; Protocol Last Admin: 09/30/19 09:41 Dose: 200 mls/hr Midazolam HCl (Midazolam 100mg/100ml-0.9%Nacl) 100 mg in 100 mls @ 1 mls/hr IVPB TITR [facility]; Protocol Last Admin: 09/29/19 08:40 Dose: Not Given Dexmedetomidine HCl 200 mcg/ (Sodium Chloride) 50 mls @ 3.16 mls/hr IVPB TITR [facility] Last Titration: 09/30/19 02:00 Dose: 0 mcg/kg/hr, 0 mls/hr Propofol (Diprivan -) 1,000,000 mcg in 100 mls @ 1.897 mls/hr IVPB TITR [facility]; Protocol Last Admin: 09/30/19 06:21 Dose: 15 mcg/kg/min, 5.691 mls/hr Famotidine/Sodium Chloride (Pepcid 20 Mg Premixed Ivpb -) 20 mg in 50 mls @ 100 mls/hr IVPB BID [facility] Fentanyl 500 mcg/ Dextrose 100 mls @ 5 mls/hr IVPB TITR [facility]; Protocol Last Admin: 09/30/19 13:20 Dose: 25 mcg/hr, 5 mls/hr Insulin Aspart (Novolog Vial Sliding Scale -) 1 vial SQ ACHS [facility]; Protocol Last Admin: 09/30/19 11:42 Dose: 2 units Levalbuterol HCl (Xopenex) 0.63 mg IH RTID [facility] Last Admin: 09/30/19 08:30 Dose: 0.63 mg Lisinopril (Prinivil) 5 mg PO DAILY [facility] Last Admin: 09/30/19 09:59 Dose: 5 mg Methylprednisolone Sodium Succinate (Solu-Medrol -) 40 mg IVPUSH BID [facility] Last Admin: 09/30/19 09:42 Dose: 40 mg Metoprolol Tartrate (Lopressor -) 50 mg PO BID [facility] Last Admin: 09/30/19 09:59 Dose: 50 mg Verapamil HCl (Calan Injection -) 2.5 mg IVPUSH Q6H PRN PRN Reason: TACHYCARDIA Last Admin: 09/30/19 09:40 Dose: 2.5 mg Verapamil HCl (Calan -) 80 mg NGT TID [facility] Last Admin: 09/30/19 05:57 Dose: 80 mg - Objective Vital Signs: Vital Signs Temperature 98.2 F 09/30/19 09:51 Pulse Rate 122 H 09/30/19 09:59 Respiratory Rate 25 H 09/30/19 11:48 Blood Pressure 157/97 09/30/19 09:51 O2 Sat by Pulse Oximetry (%) 94 L 09/29/19 08:00 Constitutional: Yes: Calm Eyes: Yes: Conjunctiva Clear HENT: Yes: Atraumatic Cardiovascular: Yes: S1, S2 Respiratory: Yes: Mechanically Ventilated Gastrointestinal: Yes: Soft Genitourinary: Yes: Flores Present Edema: No Integumentary: Yes: WNL Neurological: Yes: Lethargy Labs: CBC, BMP 09/30/19 06:18 09/30/19 06:18 INR, PTT INR 1.16 (0.83-1.09) H 09/30/19 06:18 Fibrinogen 247.0 mg/dL (238-498) 09/30/19 06:18 Assessment/Plan Current Medications Generic Name Dose Route Start Last Admin Trade Name Freq PRN Reason Stop Dose Admin Acetaminophen 1,000 mg 09/28/19 16:51 09/30/19 00:42 Tylenol Oral Solution - PO 1,000 mg Q6H PRN Administration FEVER Apixaban 2.5 mg 09/25/19 10:00 09/30/19 09:59 Eliquis - PO 2.5 mg BID [facility] Administration Budesonide/Formoterol Fumarate 2 puff 09/25/19 10:00 09/30/19 09:59 Symbicort 80/4.5mcg - IH Not Given BID [facility] Chlorhexidine Gluconate 1 applic 09/24/19 22:00 09/29/19 21:49 Hibiclens For Decolonization - TP 1 applic HS [facility] Administration Chlorhexidine Gluconate 15 ml 09/29/19 22:00 09/30/19 09:41 Peridex - MM 15 ml BID [facility] Administration Digoxin 0.125 mg 09/25/19 12:00 09/30/19 09:59 Lanoxin - PO 0.125 mg DAILY [facility] Administration Ergocalciferol 50,000 unit 09/29/19 10:00 09/29/19 10:58 Drisdol - PO Not Given We@1000 [facility] Furosemide 40 mg 09/25/19 10:00 09/30/19 09:59 Lasix - PO 40 mg DAILY [facility] Administration Gabapentin 300 mg 09/25/19 14:00 09/30/19 05:57 Neurontin Oral Liquid - PO 300 mg TID [facility] Administration Hydralazine HCl 50 mg 09/25/19 06:00 09/30/19 05:57 Apresoline - PO 50 mg TID [facility] Administration Hydralazine HCl 10 mg 09/30/19 11:28 Apresoline Injection - IVPUSH Q6H PRN HYPERTENSION Cefepime HCl 1 gm/ Dextrose 100 mls @ 200 mls/hr 09/25/19 22:00 09/30/19 09: 41 IVPB 200 mls/hr BID [facility] Administration Protocol Midazolam HCl 100 mg in 100 mls @ 1 mls/hr 09/27/19 05:45 09/29/19 08:40 Midazolam 100mg/100ml-0.9%Nacl IVPB Not Given TITR [facility] Protocol 1 MG/HR Dexmedetomidine HCl 200 mcg/ 50 mls @ 3.16 mls/hr 09/29/19 14:30 09/30/19 02: 00 Sodium Chloride IVPB 0 mcg/kg/hr TITR [facility] 0 mls/hr Titration 0.2 MCG/KG/HR Propofol 1,000,000 mcg in 100 mls @ 1.897 mls/hr 09/29/19 21:15 09/30/19 06: 21 Diprivan - IVPB 15 mcg/kg/min TITR [facility] 5.691 mls/hr Administration Protocol 5 MCG/KG/MIN Famotidine/Sodium Chloride 20 mg in 50 mls @ 100 mls/hr 09/30/19 22:00 Pepcid 20 Mg Premixed Ivpb - IVPB BID [facility] Fentanyl 500 mcg/ Dextrose 100 mls @ 5 mls/hr 09/30/19 11:45 09/30/19 13:20 IVPB 25 mcg/hr TITR [facility] 5 mls/hr Administration Protocol 25 MCG/HR Insulin Aspart 1 vial 09/25/19 16:30 09/30/19 11:42 Novolog Vial Sliding Scale - SQ 2 units ACHS [facility] Administration Protocol Levalbuterol HCl 0.63 mg 09/25/19 14:00 09/30/19 08:30 Xopenex IH 0.63 mg RTID [facility] Administration Lisinopril 5 mg 09/30/19 10:00 09/30/19 09:59 Prinivil PO 5 mg DAILY [facility] Administration Methylprednisolone Sodium Succinate 40 mg 09/30/19 10:00 09/30/19 09:42 Solu-Medrol - IVPUSH 40 mg BID [facility] Administration Metoprolol Tartrate 50 mg 09/29/19 22:00 09/30/19 09:59 Lopressor - PO 50 mg BID [facility] Administration Verapamil HCl 2.5 mg 09/26/19 11:39 09/30/19 09:40 Calan Injection - IVPUSH 2.5 mg Q6H PRN Administration TACHYCARDIA Verapamil HCl 80 mg 09/28/19 11:36 09/30/19 05:57 Calan - NGT 80 mg TID [facility] Administration Impression 1. CKD 2. CHF 3. a-fib 4. lower ext edema 5. COPD 6. active smoker 7. non compliance 8. acute resp failure 9. influenza 10. hypernatremia Plan - consider holding a dose of lasix - will add free water to feeds - vent support - weaning per pulmonary - volume status stable - avoid nsaids
--- NOTE | 2019-09-30 15:44 | PN ---
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, Physician Chief Complaint: Cards fu Telem AF HR 80-120 Intubated and sedated. - Current Medication List Current Medications: Active Medications Acetaminophen (Tylenol Oral Solution -) 1,000 mg PO Q6H PRN PRN Reason: FEVER Last Admin: 09/30/19 00:42 Dose: 1,000 mg Apixaban (Eliquis -) 2.5 mg PO BID [facility] Last Admin: 09/30/19 09:59 Dose: 2.5 mg Budesonide/Formoterol Fumarate (Symbicort 80/4.5mcg -) 2 puff IH BID [facility] Last Admin: 09/30/19 09:59 Dose: Not Given Chlorhexidine Gluconate (Hibiclens For Decolonization -) 1 applic TP HS [facility] Last Admin: 09/29/19 21:49 Dose: 1 applic Chlorhexidine Gluconate (Peridex -) 15 ml MM BID [facility] Last Admin: 09/30/19 09:41 Dose: 15 ml Digoxin (Lanoxin -) 0.125 mg PO DAILY [facility] Last Admin: 09/30/19 09:59 Dose: 0.125 mg Ergocalciferol (Drisdol -) 50,000 unit PO We@1000 [facility] Last Admin: 09/29/19 10:58 Dose: Not Given Furosemide (Lasix -) 40 mg PO DAILY [facility] Last Admin: 09/30/19 09:59 Dose: 40 mg Gabapentin (Neurontin Oral Liquid -) 300 mg PO TID [facility] Last Admin: 09/30/19 13:59 Dose: 300 mg Hydralazine HCl (Apresoline -) 50 mg PO TID [facility] Last Admin: 09/30/19 13:34 Dose: 50 mg Hydralazine HCl (Apresoline Injection -) 10 mg IVPUSH Q6H PRN PRN Reason: HYPERTENSION Cefepime HCl 1 gm/ Dextrose 100 mls @ 200 mls/hr IVPB BID [facility]; Protocol Last Admin: 09/30/19 09:41 Dose: 200 mls/hr Midazolam HCl (Midazolam 100mg/100ml-0.9%Nacl) 100 mg in 100 mls @ 1 mls/hr IVPB TITR [facility]; Protocol Last Admin: 09/29/19 08:40 Dose: Not Given Dexmedetomidine HCl 200 mcg/ (Sodium Chloride) 50 mls @ 3.16 mls/hr IVPB TITR [facility] Last Titration: 09/30/19 02:00 Dose: 0 mcg/kg/hr, 0 mls/hr Propofol (Diprivan -) 1,000,000 mcg in 100 mls @ 1.897 mls/hr IVPB TITR [facility]; Protocol Last Admin: 09/30/19 06:21 Dose: 15 mcg/kg/min, 5.691 mls/hr Famotidine/Sodium Chloride (Pepcid 20 Mg Premixed Ivpb -) 20 mg in 50 mls @ 100 mls/hr IVPB BID [facility] Fentanyl 500 mcg/ Dextrose 100 mls @ 5 mls/hr IVPB TITR [facility]; Protocol Last Admin: 09/30/19 13:20 Dose: 25 mcg/hr, 5 mls/hr Insulin Aspart (Novolog Vial Sliding Scale -) 1 vial SQ ACHS [facility]; Protocol Last Admin: 09/30/19 11:42 Dose: 2 units Levalbuterol HCl (Xopenex) 0.63 mg IH RTID [facility] Last Admin: 09/30/19 08:30 Dose: 0.63 mg Lisinopril (Prinivil) 5 mg PO DAILY [facility] Last Admin: 09/30/19 09:59 Dose: 5 mg Methylprednisolone Sodium Succinate (Solu-Medrol -) 40 mg IVPUSH BID [facility] Last Admin: 09/30/19 09:42 Dose: 40 mg Metoprolol Tartrate (Lopressor -) 50 mg PO BID [facility] Last Admin: 09/30/19 09:59 Dose: 50 mg Verapamil HCl (Calan Injection -) 2.5 mg IVPUSH Q6H PRN PRN Reason: TACHYCARDIA Last Admin: 09/30/19 09:40 Dose: 2.5 mg Verapamil HCl (Calan -) 80 mg NGT TID [facility] Last Admin: 09/30/19 13:35 Dose: 80 mg - Objective Vital Signs: Vital Signs Temperature 98.7 F 09/30/19 15:27 Pulse Rate 22 L 09/30/19 15:27 Respiratory Rate 22 H 09/30/19 15:27 Blood Pressure 159/76 09/30/19 15:27 O2 Sat by Pulse Oximetry (%) 94 L 09/29/19 08:00 Constitutional: Yes: Well Nourished, No Distress Eyes: Yes: Conjunctiva Clear, EOM Intact HENT: Yes: Atraumatic, Normocephalic Neck: Yes: Supple, Trachea Midline Cardiovascular: Yes: Tachycardia, Pulse Irregular Respiratory: Yes: Regular, CTA Bilaterally Gastrointestinal: Yes: Normal Bowel Sounds, Soft Edema: No Labs: CBC, BMP 09/30/19 06:18 09/30/19 06:18 INR, PTT INR 1.16 (0.83-1.09) H 09/30/19 06:18 Fibrinogen 247.0 mg/dL (238-498) 09/30/19 06:18 Problem List - Problems (1) Acute exacerbation of COPD with asthma Code(s): J44.1 - CHRONIC OBSTRUCTIVE PULMONARY DISEASE W (ACUTE) EXACERBATION; J45.901 - UNSPECIFIED ASTHMA WITH (ACUTE) EXACERBATION (2) Afib Code(s): I48.91 - UNSPECIFIED ATRIAL FIBRILLATION Qualifiers: Atrial fibrillation type: unspecified Qualified Code(s): I48.91 - Unspecified atrial fibrillation Assessment/Plan She is a 59 year old female with a PMH of hypertension, AFIB, CHF, COPD, DM, sleep apnea, and CKD. She presented to the ER with SOB, respiratory failure, was intubated due to hypercapneic respiratory failure. Found with influeza, HCAP and atrial fibrillation with RVR. Echocardiogram 04/26/19 showed normal LV funciton, moderate severe AI, moderate MR, severe TR. Atrial Fibrillation -h/o Pafib with sinus andrea when in sinus -Increase Metoprolol 100mg bid Continue Verapamil 80 mg TID -cont tele monitoring in ICU
[2019-09-30] MEDS: DEXMEDETOMIDINE HCL 200 MCG in SODIUM CHLORIDE 48 ML IVPB SCH (16:20)
--- NOTE | 2019-09-30 17:26 | PN ---
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, Physician History of Present Illness: REMAINS INTUBATED AWAKE, AGITATED LOW GRADE TEMP TACHYCARDIC LEUKOPENIC/ THROMBOCYTOPENIC AZOTEMIA IMPROVED SPUTUM NORMAL BACILIO - Current Medication List Current Medications: Active Medications Acetaminophen (Tylenol Oral Solution -) 1,000 mg PO Q6H PRN PRN Reason: FEVER Last Admin: 09/30/19 00:42 Dose: 1,000 mg Apixaban (Eliquis -) 2.5 mg PO BID [facility] Last Admin: 09/30/19 09:59 Dose: 2.5 mg Budesonide/Formoterol Fumarate (Symbicort 80/4.5mcg -) 2 puff IH BID [facility] Last Admin: 09/30/19 09:59 Dose: Not Given Chlorhexidine Gluconate (Hibiclens For Decolonization -) 1 applic TP HS [facility] Last Admin: 09/29/19 21:49 Dose: 1 applic Chlorhexidine Gluconate (Peridex -) 15 ml MM BID [facility] Last Admin: 09/30/19 09:41 Dose: 15 ml Digoxin (Lanoxin -) 0.125 mg PO DAILY [facility] Last Admin: 09/30/19 09:59 Dose: 0.125 mg Ergocalciferol (Drisdol -) 50,000 unit PO We@1000 [facility] Last Admin: 09/29/19 10:58 Dose: Not Given Furosemide (Lasix -) 40 mg PO DAILY [facility] Last Admin: 09/30/19 09:59 Dose: 40 mg Gabapentin (Neurontin Oral Liquid -) 300 mg PO TID [facility] Last Admin: 09/30/19 13:59 Dose: 300 mg Hydralazine HCl (Apresoline -) 50 mg PO TID [facility] Last Admin: 09/30/19 13:34 Dose: 50 mg Hydralazine HCl (Apresoline Injection -) 10 mg IVPUSH Q6H PRN PRN Reason: HYPERTENSION Cefepime HCl 1 gm/ Dextrose 100 mls @ 200 mls/hr IVPB BID [facility]; Protocol Last Admin: 09/30/19 09:41 Dose: 200 mls/hr Midazolam HCl (Midazolam 100mg/100ml-0.9%Nacl) 100 mg in 100 mls @ 1 mls/hr IVPB TITR [facility]; Protocol Last Admin: 09/29/19 08:40 Dose: Not Given Dexmedetomidine HCl 200 mcg/ (Sodium Chloride) 50 mls @ 3.16 mls/hr IVPB TITR [facility] Last Admin: 09/30/19 16:20 Dose: Not Given Propofol (Diprivan -) 1,000,000 mcg in 100 mls @ 1.897 mls/hr IVPB TITR [facility]; Protocol Last Admin: 09/30/19 16:13 Dose: 25 mcg/kg/min, 9.485 mls/hr Famotidine/Sodium Chloride (Pepcid 20 Mg Premixed Ivpb -) 20 mg in 50 mls @ 100 mls/hr IVPB BID [facility] Fentanyl 500 mcg/ Dextrose 100 mls @ 5 mls/hr IVPB TITR [facility]; Protocol Last Admin: 09/30/19 13:20 Dose: 25 mcg/hr, 5 mls/hr Insulin Aspart (Novolog Vial Sliding Scale -) 1 vial SQ ACHS [facility]; Protocol Last Admin: 09/30/19 11:42 Dose: 2 units Levalbuterol HCl (Xopenex) 0.63 mg IH RTID [facility] Last Admin: 09/30/19 14:10 Dose: 0.63 mg Lisinopril (Prinivil) 5 mg PO DAILY [facility] Last Admin: 09/30/19 09:59 Dose: 5 mg Methylprednisolone Sodium Succinate (Solu-Medrol -) 40 mg IVPUSH BID [facility] Last Admin: 09/30/19 09:42 Dose: 40 mg Metoprolol Tartrate (Lopressor -) 50 mg PO BID [facility] Last Admin: 09/30/19 09:59 Dose: 50 mg Verapamil HCl (Calan -) 80 mg NGT TID [facility] Last Admin: 09/30/19 13:35 Dose: 80 mg Verapamil HCl (Calan Injection -) 5 mg IVPUSH Q6H PRN PRN Reason: TACHYCARDIA - Objective Vital Signs: Vital Signs Temperature 98.7 F 09/30/19 15:27 Pulse Rate 22 L 09/30/19 15:27 Respiratory Rate 22 H 09/30/19 15:27 Blood Pressure 159/76 09/30/19 15:27 O2 Sat by Pulse Oximetry (%) 94 L 09/29/19 08:00 Constitutional: Yes: No Distress Eyes: Yes: Conjunctiva Clear Cardiovascular: Yes: Regular Rate and Rhythm, S1, S2 Respiratory: Yes: Mechanically Ventilated Gastrointestinal: Yes: Normal Bowel Sounds, Soft. No: Tenderness Labs: CBC, BMP 09/30/19 06:18 09/30/19 06:18 INR, PTT INR 1.16 (0.83-1.09) H 09/30/19 06:18 Fibrinogen 247.0 mg/dL (238-498) 09/30/19 06:18 Assessment/Plan ACUTE RESPIRATORY FAILURE ACUTE INFLUENZA PNEUMONIA LEUKOPENIA/ THROMBOCYTOPENIA EXACERBATION COPD AZOTEMIA CONTINUE VENTILATORY SUPPORT EMPIRIC CEFEPIME TAMIFLU
[2019-09-30] MEDS: MIDAZOLAM IN 0.9 % SOD.CHLORID 100 MG/100 ML PLAST..BAG IVPB SCH (18:08)
[2019-09-30 19:27] LABS: EPI CELLS 1.5 /HPF (0-5/HPF); HYALINE CASTS 3 /lpf (0-8); URINE APPEARANCE CLEAR; URINE BACTERIA 9.6 /hpf (NEGATIVE); URINE BILIRUBIN NEGATIVE (NEGATIVE); URINE COLOR YELLOW; URINE GLUCOSE (UA) NEGATIVE (NEGATIVE); URINE KETONE NEGATIVE (NEGATIVE); URINE LEUK ESTERASE NEGATIVE (NEGATIVE); URINE NITRITE NEGATIVE (NEGATIVE); URINE PROTEIN 1+ (NEGATIVE); URINE RBC 4 /hpf (0-4); URINE UROBILINOGEN 0.2 mg/dL (0.2-1.0); URINE WBC 1 /hpf (0-5)
[2019-09-30] MEDS: CHLORHEXIDINE GLUCONATE 4% CLEANSER FOR DECOLONIZATION TP SCH (21:10)
[2019-09-30] MEDS: FAMOTIDINE 20 MG/50 ML IVPB 20 MG/50 ML MG IVPB SCH (21:12)
[2019-09-30] MEDS ORDERED: INSULIN (NOVOLOG) ASPART 100 UNITS/ML 10ML VIAL ONE (21:18)
[2019-09-30] MEDS ORDERED: fentaNYL CITRATE 250 MCG/5 ML VIAL ONE (22:44)
[2019-10-01] MEDS: hydrALAZINE HCL 50 MG TABLET (FP) PO SCH ×3 (06:03→21:51)
[2019-10-01] MEDS: GABAPENTIN 250 MG/5 ML ORAL SOLUTION, 470 ML BOTTLE PO SCH ×3 (06:03→22:30)
[2019-10-01] MEDS: MIDAZOLAM IN 0.9 % SOD.CHLORID 100 MG/100 ML PLAST..BAG IVPB SCH (06:04)
[2019-10-01] MEDS: VERAPAMIL HCL 80 MG TABLET NGT SCH ×3 (06:06→21:54)
[2019-10-01] MEDS: INSULIN SLIDING SCALE (NOVOLOG) 1 VIAL SQ SCH ×4 (06:08→22:16)
[2019-10-01 06:44] LABS: BASO % 0.2 % (0-2.0); HEMATOCRIT 37.9 % (32.4-45.2); HEMOGLOBIN 12.4 GM/dL (10.7-15.3); LYMPH % 6.5 % (8-40); MCHC 32.7 g/dl (32.0-36.0); MEAN CELL VOLUME 91.6 fl (80-96); MEAN PLT VOLUME 11.1 fl (7.5-11.1); MONO % 5.7 % (3.8-10.2); NEUT % 87.6 % (42.8-82.8); PLATELET COUNT 68 K/MM3 (134-434); RBC 4.14 M/mm3 (3.60-5.2); RDW 15.9 % (11.6-15.6); WHITE BLOOD COUNT 7.9 K/mm3 (4.0-10.0)
[2019-10-01 07:23] LABS: ALBUMIN 2.6 g/dl (3.4-5.0); BILIRUBIN,TOTAL 0.7 mg/dL (0.2-1); BLOOD UREA NITROGEN 72.9 mg/dL (7-18); CALCIUM 8.5 mg/dL (8.5-10.1); CREATININE 1.5 mg/dL (0.55-1.3); PHOSPHOROUS 3.3 mg/dL (2.5-4.9); POTASSIUM 3.8 mmol/L (3.5-5.1); TOT PROT 5.8 g/dl (6.4-8.2)
[2019-10-01] MEDS: LEVALBUTEROL HCL 0.63 MG/3 ML VIAL.NEB. IH SCH ×3 (08:56→21:33)
--- NOTE | 2019-10-01 09:21 | PN ---
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, Physician - Current Medication List Current Medications: Active Medications Acetaminophen (Tylenol Oral Solution -) 1,000 mg PO Q6H PRN PRN Reason: FEVER Last Admin: 09/30/19 00:42 Dose: 1,000 mg Apixaban (Eliquis -) 2.5 mg PO BID [facility] Last Admin: 09/30/19 21:18 Dose: 2.5 mg Budesonide/Formoterol Fumarate (Symbicort 80/4.5mcg -) 2 puff IH BID [facility] Last Admin: 09/30/19 21:19 Dose: Not Given Chlorhexidine Gluconate (Hibiclens For Decolonization -) 1 applic TP HS [facility] Last Admin: 09/30/19 21:10 Dose: 1 applic Chlorhexidine Gluconate (Peridex -) 15 ml MM BID [facility] Last Admin: 09/30/19 21:12 Dose: 15 ml Digoxin (Lanoxin -) 0.125 mg PO DAILY [facility] Last Admin: 09/30/19 09:59 Dose: 0.125 mg Ergocalciferol (Drisdol -) 50,000 unit PO We@1000 [facility] Last Admin: 09/29/19 10:58 Dose: Not Given Gabapentin (Neurontin Oral Liquid -) 300 mg PO TID [facility] Last Admin: 10/01/19 06:03 Dose: 300 mg Hydralazine HCl (Apresoline -) 50 mg PO TID [facility] Last Admin: 10/01/19 06:03 Dose: 50 mg Hydralazine HCl (Apresoline Injection -) 10 mg IVPUSH Q6H PRN PRN Reason: HYPERTENSION Cefepime HCl 1 gm/ Dextrose 100 mls @ 200 mls/hr IVPB BID [facility]; Protocol Last Admin: 09/30/19 21:13 Dose: 200 mls/hr Midazolam HCl (Midazolam 100mg/100ml-0.9%Nacl) 100 mg in 100 mls @ 1 mls/hr IVPB TITR [facility]; Protocol Last Admin: 10/01/19 06:04 Dose: Not Given Dexmedetomidine HCl 200 mcg/ (Sodium Chloride) 50 mls @ 3.16 mls/hr IVPB TITR [facility] Last Admin: 09/30/19 16:20 Dose: Not Given Propofol (Diprivan -) 1,000,000 mcg in 100 mls @ 1.897 mls/hr IVPB TITR [facility]; Protocol Last Titration: 09/30/19 21:19 Dose: 40 mcg/kg/min, 15.175 mls/hr Famotidine/Sodium Chloride (Pepcid 20 Mg Premixed Ivpb -) 20 mg in 50 mls @ 100 mls/hr IVPB BID [facility] Last Admin: 09/30/19 21:12 Dose: 100 mls/hr Fentanyl 500 mcg/ Dextrose 100 mls @ 5 mls/hr IVPB TITR [facility]; Protocol Last Admin: 09/30/19 13:20 Dose: 25 mcg/hr, 5 mls/hr Insulin Aspart (Novolog Vial Sliding Scale -) 1 vial SQ ACHS [facility]; Protocol Last Admin: 10/01/19 06:08 Dose: 2 units Levalbuterol HCl (Xopenex) 0.63 mg IH RTID [facility] Last Admin: 10/01/19 08:56 Dose: 0.63 mg Lisinopril (Prinivil) 5 mg PO DAILY [facility] Last Admin: 09/30/19 09:59 Dose: 5 mg Methylprednisolone Sodium Succinate (Solu-Medrol -) 40 mg IVPUSH BID [facility] Last Admin: 09/30/19 21:12 Dose: 40 mg Metoprolol Tartrate (Lopressor -) 100 mg PO BID [facility] Verapamil HCl (Calan -) 80 mg NGT TID [facility] Last Admin: 10/01/19 06:06 Dose: 80 mg Verapamil HCl (Calan Injection -) 5 mg IVPUSH Q6H PRN PRN Reason: TACHYCARDIA - Objective Vital Signs: Vital Signs Temperature 98.6 F 10/01/19 06:00 Pulse Rate 96 H 10/01/19 06:00 Respiratory Rate 18 10/01/19 08:59 Blood Pressure 141/70 10/01/19 06:00 O2 Sat by Pulse Oximetry (%) 98 09/30/19 20:43 Cardiovascular: Yes: S1, S2 Respiratory: Yes: Mechanically Ventilated Gastrointestinal: Yes: Normal Bowel Sounds, Soft Labs: CBC, BMP 10/01/19 05:20 10/01/19 05:20 INR, PTT INR 1.16 (0.83-1.09) H 09/30/19 06:18 Fibrinogen 247.0 mg/dL (238-498) 09/30/19 06:18 Assessment/Plan - Problems (1) Influenza A Assessment/Plan: -Seen by ID -Finished Tamiflu Problems reviewed: Yes Code(s): J10.1 - FLU DUE TO OTH IDENT INFLUENZA VIRUS W OTH RESP MANIFEST (2) Acute respiratory failure Assessment/Plan: -Roll Builder vent -Pulmonary on board -Bronchodilators -IV abx -ID on board -IV medrol Problems reviewed: Yes Code(s): J96.00 - ACUTE RESPIRATORY FAILURE, UNSP W HYPOXIA OR HYPERCAPNIA (3) Acute exacerbation of COPD with asthma Problems reviewed: Yes Code(s): J44.1 - CHRONIC OBSTRUCTIVE PULMONARY DISEASE W (ACUTE) EXACERBATION; J45.901 - UNSPECIFIED ASTHMA WITH (ACUTE) EXACERBATION (4) Pneumonia Assessment/Plan: -Roll Builder vent -Pulmonary on board -Bronchodilators -IV abx -ID on board -IV medrol Problems reviewed: Yes Code(s): J18.9 - PNEUMONIA, UNSPECIFIED ORGANISM Qualifiers: Pneumonia type: due to unspecified organism Laterality: unspecified laterality Lung location: unspecified part of lung Qualified Code(s): J18.9 - Pneumonia, unspecified organism (5) JOSEPH (acute kidney injury) Assessment/Plan: -Nephrology consult -monitor trend Problems reviewed: Yes Code(s): N17.9 - ACUTE KIDNEY FAILURE, UNSPECIFIED (6) Afib Assessment/Plan: -Seen by cardiology -On verapamil-continue -Continue eliquis -Will improve as pt improves metabolically Problems reviewed: Yes Code(s): I48.91 - UNSPECIFIED ATRIAL FIBRILLATION Qualifiers: Atrial fibrillation type: unspecified Qualified Code(s): I48.91 - Unspecified atrial fibrillation
[2019-10-01] MEDS ORDERED: DEXTROSE 5%-WATER 100 ML IVPB ONE ×2 (09:55→09:57)
[2019-10-01] MEDS ORDERED: CEFEPIME HCL 1 GM VIAL (RESTRICTED TO ID) ONE ×2 (09:55→09:56)
[2019-10-01] MEDS: methylPREDNISolone NA SUCC 40 MG/1 ML VIAL IVPUSH SCH ×2 (10:37→22:17)
[2019-10-01] MEDS: BUDESONIDE/FORMETEROL FUMARATE 80/4.5 mcg INHALER IH SCH ×2 (10:37→22:04)
[2019-10-01] MEDS: CHLORHEXIDINE GLUCONATE 0.12% 15ML CUP MM SCH ×2 (10:37→21:51)
[2019-10-01] MEDS: METOPROLOL TARTRATE 50 MG TABLET (FP) PO SCH ×2 (10:37→21:51)
[2019-10-01] MEDS: LISINOPRIL 5 MG TABLET (FP) PO SCH (10:37)
[2019-10-01] MEDS: CEFEPIME 1 GM in DEXTROSE 5%-WATER 100 ML IVPB SCH (10:37)
[2019-10-01] MEDS: FAMOTIDINE 20 MG/50 ML IVPB 20 MG/50 ML MG IVPB SCH ×2 (10:38→21:51)
[2019-10-01] MEDS: DIGOXIN 0.125 MG TABLET (FP) PO SCH (10:38)
[2019-10-01] MEDS: APIXABAN 2.5 MG TABLET PO SCH ×2 (10:38→21:51)
[2019-10-01] MEDS ORDERED: PROPOFOL 1,000,000 MCG/100 ML VIAL ONE ×2 (12:15→14:41)
--- NOTE | 2019-10-01 12:27 | PN ---
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, Physician History of Present Illness: REMAINS INTUBATED SEDATED AFEBRILE THROMBOCYTOPENIC AZOTEMIA IMPROVED SPUTUM NORMAL BACILIO - Current Medication List Current Medications: Active Medications Acetaminophen (Tylenol Oral Solution -) 1,000 mg PO Q6H PRN PRN Reason: FEVER Last Admin: 09/30/19 00:42 Dose: 1,000 mg Apixaban (Eliquis -) 2.5 mg PO BID [facility] Last Admin: 10/01/19 10:38 Dose: 2.5 mg Budesonide/Formoterol Fumarate (Symbicort 80/4.5mcg -) 2 puff IH BID [facility] Last Admin: 10/01/19 10:37 Dose: Not Given Chlorhexidine Gluconate (Hibiclens For Decolonization -) 1 applic TP HS [facility] Last Admin: 09/30/19 21:10 Dose: 1 applic Chlorhexidine Gluconate (Peridex -) 15 ml MM BID [facility] Last Admin: 10/01/19 10:37 Dose: 15 ml Digoxin (Lanoxin -) 0.125 mg PO DAILY [facility] Last Admin: 10/01/19 10:38 Dose: 0.125 mg Ergocalciferol (Drisdol -) 50,000 unit PO We@1000 [facility] Last Admin: 09/29/19 10:58 Dose: Not Given Gabapentin (Neurontin Oral Liquid -) 300 mg PO TID [facility] Last Admin: 10/01/19 06:03 Dose: 300 mg Hydralazine HCl (Apresoline -) 50 mg PO TID [facility] Last Admin: 10/01/19 06:03 Dose: 50 mg Hydralazine HCl (Apresoline Injection -) 10 mg IVPUSH Q6H PRN PRN Reason: HYPERTENSION Cefepime HCl 1 gm/ Dextrose 100 mls @ 200 mls/hr IVPB BID [facility]; Protocol Last Admin: 10/01/19 10:37 Dose: 200 mls/hr Midazolam HCl (Midazolam 100mg/100ml-0.9%Nacl) 100 mg in 100 mls @ 1 mls/hr IVPB TITR [facility]; Protocol Last Admin: 10/01/19 06:04 Dose: Not Given Dexmedetomidine HCl 200 mcg/ (Sodium Chloride) 50 mls @ 3.16 mls/hr IVPB TITR [facility] Last Admin: 09/30/19 16:20 Dose: Not Given Propofol (Diprivan -) 1,000,000 mcg in 100 mls @ 1.897 mls/hr IVPB TITR [facility]; Protocol Last Titration: 09/30/19 21:19 Dose: 40 mcg/kg/min, 15.175 mls/hr Famotidine/Sodium Chloride (Pepcid 20 Mg Premixed Ivpb -) 20 mg in 50 mls @ 100 mls/hr IVPB BID [facility] Last Admin: 10/01/19 10:38 Dose: 100 mls/hr Fentanyl 500 mcg/ Dextrose 100 mls @ 5 mls/hr IVPB TITR [facility]; Protocol Last Admin: 09/30/19 13:20 Dose: 25 mcg/hr, 5 mls/hr Insulin Aspart (Novolog Vial Sliding Scale -) 1 vial SQ ACHS [facility]; Protocol Last Admin: 10/01/19 12:20 Dose: 2 units Levalbuterol HCl (Xopenex) 0.63 mg IH RTID [facility] Last Admin: 10/01/19 08:56 Dose: 0.63 mg Lisinopril (Prinivil) 5 mg PO DAILY [facility] Last Admin: 10/01/19 10:37 Dose: 5 mg Methylprednisolone Sodium Succinate (Solu-Medrol -) 40 mg IVPUSH BID [facility] Last Admin: 10/01/19 10:37 Dose: 40 mg Metoprolol Tartrate (Lopressor -) 100 mg PO BID [facility] Last Admin: 10/01/19 10:37 Dose: 100 mg Verapamil HCl (Calan -) 80 mg NGT TID [facility] Last Admin: 10/01/19 06:06 Dose: 80 mg Verapamil HCl (Calan Injection -) 5 mg IVPUSH Q6H PRN PRN Reason: TACHYCARDIA - Objective Vital Signs: Vital Signs Temperature 99.1 F 10/01/19 10:00 Pulse Rate 123 H 10/01/19 10:38 Respiratory Rate 32 H 10/01/19 12:21 Blood Pressure 149/89 10/01/19 10:00 O2 Sat by Pulse Oximetry (%) 98 09/30/19 20:43 Constitutional: Yes: No Distress Eyes: Yes: Conjunctiva Clear Cardiovascular: Yes: Regular Rate and Rhythm, S1, S2 Respiratory: Yes: Mechanically Ventilated Gastrointestinal: Yes: Normal Bowel Sounds, Soft. No: Tenderness Edema: No Labs: CBC, BMP 10/01/19 05:20 10/01/19 05:20 INR, PTT INR 1.16 (0.83-1.09) H 09/30/19 06:18 Fibrinogen 247.0 mg/dL (238-498) 09/30/19 06:18 Assessment/Plan ACUTE RESPIRATORY FAILURE ACUTE INFLUENZA PNEUMONIA THROMBOCYTOPENIA EXACERBATION COPD AZOTEMIA CONTINUE VENTILATORY SUPPORT DAY# 7 EMPIRIC CEFEPIME WILL OBSERVE OFF COMPLETED TAMIFLU MAINTAIN FLU ISOLATION 7D
--- NOTE | 2019-10-01 12:47 | PN ---
Teaching Attending Note Name of Resident: Kacey Watson ATTENDING PHYSICIAN STATEMENT I saw and evaluated the patient. I reviewed the resident's note and discussed the case with the resident. I agree with the resident's findings and plan as documented. SUBJECTIVE: Patient seen and examined in the ICU. Pplat: 29. Remains intubated, arousable on sedation. No pressors. OBJECTIVE: Intake & Output 09/28/19 09/29/19 09/30/19 10/01/19 23:59 23:59 23:59 23:59 Intake Total 1708.5 1673.1 1542 1790 Output Total 1450 1300 2100 400 Balance 258.5 373.1 -558 1390 Weight 142 lb 8 oz 139 lb 6.4 oz 139 lb 6.4 oz 140 lb 1 oz Last Vital Signs Temp Pulse Resp BP Pulse Ox 99.1 F 89 32 H 151/73 98 10/01/19 10:00 10/01/19 12:00 10/01/19 12:21 10/01/19 12:00 09/30/19 20:43 Active Medications Acetaminophen (Tylenol Oral Solution -) 1,000 mg PO Q6H PRN PRN Reason: FEVER Last Admin: 09/30/19 00:42 Dose: 1,000 mg Apixaban (Eliquis -) 2.5 mg PO BID [facility] Last Admin: 10/01/19 10:38 Dose: 2.5 mg Budesonide/Formoterol Fumarate (Symbicort 80/4.5mcg -) 2 puff IH BID [facility] Last Admin: 10/01/19 10:37 Dose: Not Given Chlorhexidine Gluconate (Hibiclens For Decolonization -) 1 applic TP HS [facility] Last Admin: 09/30/19 21:10 Dose: 1 applic Chlorhexidine Gluconate (Peridex -) 15 ml MM BID [facility] Last Admin: 10/01/19 10:37 Dose: 15 ml Digoxin (Lanoxin -) 0.125 mg PO DAILY [facility] Last Admin: 10/01/19 10:38 Dose: 0.125 mg Ergocalciferol (Drisdol -) 50,000 unit PO We@1000 [facility] Last Admin: 09/29/19 10:58 Dose: Not Given Gabapentin (Neurontin Oral Liquid -) 300 mg PO TID [facility] Last Admin: 10/01/19 06:03 Dose: 300 mg Hydralazine HCl (Apresoline -) 50 mg PO TID [facility] Last Admin: 10/01/19 06:03 Dose: 50 mg Hydralazine HCl (Apresoline Injection -) 10 mg IVPUSH Q6H PRN PRN Reason: HYPERTENSION Cefepime HCl 1 gm/ Dextrose 100 mls @ 200 mls/hr IVPB BID [facility]; Protocol Last Admin: 10/01/19 10:37 Dose: 200 mls/hr Midazolam HCl (Midazolam 100mg/100ml-0.9%Nacl) 100 mg in 100 mls @ 1 mls/hr IVPB TITR [facility]; Protocol Last Admin: 10/01/19 06:04 Dose: Not Given Dexmedetomidine HCl 200 mcg/ (Sodium Chloride) 50 mls @ 3.16 mls/hr IVPB TITR [facility] Last Admin: 09/30/19 16:20 Dose: Not Given Propofol (Diprivan -) 1,000,000 mcg in 100 mls @ 1.897 mls/hr IVPB TITR [facility]; Protocol Last Titration: 09/30/19 21:19 Dose: 40 mcg/kg/min, 15.175 mls/hr Famotidine/Sodium Chloride (Pepcid 20 Mg Premixed Ivpb -) 20 mg in 50 mls @ 100 mls/hr IVPB BID [facility] Last Admin: 10/01/19 10:38 Dose: 100 mls/hr Fentanyl 500 mcg/ Dextrose 100 mls @ 5 mls/hr IVPB TITR [facility]; Protocol Last Admin: 09/30/19 13:20 Dose: 25 mcg/hr, 5 mls/hr Insulin Aspart (Novolog Vial Sliding Scale -) 1 vial SQ ACHS [facility]; Protocol Last Admin: 10/01/19 12:20 Dose: 2 units Levalbuterol HCl (Xopenex) 0.63 mg IH RTID [facility] Last Admin: 10/01/19 08:56 Dose: 0.63 mg Lisinopril (Prinivil) 5 mg PO DAILY [facility] Last Admin: 10/01/19 10:37 Dose: 5 mg Methylprednisolone Sodium Succinate (Solu-Medrol -) 40 mg IVPUSH BID [facility] Last Admin: 10/01/19 10:37 Dose: 40 mg Metoprolol Tartrate (Lopressor -) 100 mg PO BID [facility] Last Admin: 10/01/19 10:37 Dose: 100 mg Verapamil HCl (Calan -) 80 mg NGT TID [facility] Last Admin: 10/01/19 06:06 Dose: 80 mg Verapamil HCl (Calan Injection -) 5 mg IVPUSH Q6H PRN PRN Reason: TACHYCARDIA Gen: intubated, sedated Heart: RRR Lung: scattered rhonchi Abd: soft, nontender Ext: + edema Laboratory Results - last 24 hr 09/30/19 09/30/19 09/30/19 16:41 18:50 21:11 WBC RBC Hgb Hct MCV MCH MCHC RDW Plt Count MPV Absolute Neuts (auto) Neutrophils % Lymphocytes % Monocytes % Eosinophils % Basophils % Nucleated RBC % Sodium Potassium Chloride Carbon Dioxide Anion Gap BUN Creatinine Est GFR (CKD-EPI)AfAm Est GFR (CKD-EPI)NonAf POC Glucometer 221 173 Random Glucose Calcium Phosphorus Magnesium Total Bilirubin AST ALT Alkaline Phosphatase Total Protein Albumin Urine Color Yellow Urine Appearance Clear Urine pH 5.0 Ur Specific [place] 1.019 Urine Protein 1+ H Urine Glucose (UA) Negative Urine Ketones Negative Urine Blood Negative Urine Nitrite Negative Urine Bilirubin Negative Urine Urobilinogen 0.2 Ur Leukocyte Esterase Negative Urine WBC (Auto) 1 Urine RBC (Auto) 4 Urine Casts (Auto) 3 U Epithel Cells (Auto) 1.5 Urine Bacteria (Auto) 9.6 10/01/19 10/01/19 10/01/19 05:20 05:20 05:54 WBC 7.9 RBC 4.14 Hgb 12.4 Hct 37.9 MCV 91.6 MCH 30.0 MCHC 32.7 RDW 15.9 H Plt Count 68 L MPV 11.1 Absolute Neuts (auto) 6.9 Neutrophils % 87.6 H Lymphocytes % 6.5 L Monocytes % 5.7 Eosinophils % 0.0 Basophils % 0.2 Nucleated RBC % 0 Sodium 149 H Potassium 3.8 Chloride 109 H Carbon Dioxide 35 H Anion Gap 5 L BUN 72.9 H Creatinine 1.5 H Est GFR (CKD-EPI)AfAm 43.13 Est GFR (CKD-EPI)NonAf 37.21 POC Glucometer 185 Random Glucose 211 H Calcium 8.5 Phosphorus 3.3 Magnesium 3.0 H Total Bilirubin 0.7 AST 19 ALT 26 Alkaline Phosphatase 72 Total Protein 5.8 L Albumin 2.6 L Urine Color Urine Appearance Urine pH Ur Specific [place] Urine Protein Urine Glucose (UA) Urine Ketones Urine Blood Urine Nitrite Urine Bilirubin Urine Urobilinogen Ur Leukocyte Esterase Urine WBC (Auto) Urine RBC (Auto) Urine Casts (Auto) U Epithel Cells (Auto) Urine Bacteria (Auto) 10/01/19 12:10 WBC RBC Hgb Hct MCV MCH MCHC RDW Plt Count MPV Absolute Neuts (auto) Neutrophils % Lymphocytes % Monocytes % Eosinophils % Basophils % Nucleated RBC % Sodium Potassium Chloride Carbon Dioxide Anion Gap BUN Creatinine Est GFR (CKD-EPI)AfAm Est GFR (CKD-EPI)NonAf POC Glucometer 140 Random Glucose Calcium Phosphorus Magnesium Total Bilirubin AST ALT Alkaline Phosphatase Total Protein Albumin Urine Color Urine Appearance Urine pH Ur Specific [place] Urine Protein Urine Glucose (UA) Urine Ketones Urine Blood Urine Nitrite Urine Bilirubin Urine Urobilinogen Ur Leukocyte Esterase Urine WBC (Auto) Urine RBC (Auto) Urine Casts (Auto) U Epithel Cells (Auto) Urine Bacteria (Auto) ASSESSMENT AND PLAN: Acute on Chronic Hypoxic and Hypercapneic Respiratory Failure Influenza A Pneumonia Acute COPD Exacerbation Atrial Fibrillation with RVR LV Diastolic Dysfunction HTN DM CKD Obstructive Sleep Apnea - ABX - f/u final cultures - Completed tamiflu - Medrol - Inhaled bronchodilators standing and PRN - O2 to keep SpO2 >90% - Monitor Ppeak/Pplat - Rate control - Continue anticoagulation - Daily sedation vacations to assess mental status - Spontaneous breathing trials as tolerated with hopes of extubation - Enteral feeds - DVT/GI prophylaxis - Requires continued ICU monitoring Dr Montiel Critical care time spent in reviewing chart, evaluating patient and formulating plan 35 min
[2019-10-01] MEDS: PROPOFOL 1,000,000 MCG/100 ML VIAL IVPB SCH ×2 (13:00→21:50)
[2019-10-01] MEDS ORDERED: PT OWN MED DRAWER 7, Y5N ONE ×2 (13:59→19:01)
--- NOTE | 2019-10-01 14:33 | PN ---
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, Physician Chief Complaint: Cards fu Telem AF rate controlled predominantly in the 80s. Occasionally HR elevated. Intubated and sedated. - Current Medication List Current Medications: Active Medications Acetaminophen (Tylenol Oral Solution -) 1,000 mg PO Q6H PRN PRN Reason: FEVER Last Admin: 09/30/19 00:42 Dose: 1,000 mg Apixaban (Eliquis -) 2.5 mg PO BID [facility] Last Admin: 10/01/19 10:38 Dose: 2.5 mg Budesonide/Formoterol Fumarate (Symbicort 80/4.5mcg -) 2 puff IH BID [facility] Last Admin: 10/01/19 10:37 Dose: Not Given Chlorhexidine Gluconate (Hibiclens For Decolonization -) 1 applic TP HS [facility] Last Admin: 09/30/19 21:10 Dose: 1 applic Chlorhexidine Gluconate (Peridex -) 15 ml MM BID [facility] Last Admin: 10/01/19 10:37 Dose: 15 ml Digoxin (Lanoxin -) 0.125 mg PO DAILY [facility] Last Admin: 10/01/19 10:38 Dose: 0.125 mg Ergocalciferol (Drisdol -) 50,000 unit PO We@1000 [facility] Last Admin: 09/29/19 10:58 Dose: Not Given Gabapentin (Neurontin Oral Liquid -) 300 mg PO TID [facility] Last Admin: 10/01/19 06:03 Dose: 300 mg Hydralazine HCl (Apresoline -) 50 mg PO TID [facility] Last Admin: 10/01/19 06:03 Dose: 50 mg Hydralazine HCl (Apresoline Injection -) 10 mg IVPUSH Q6H PRN PRN Reason: HYPERTENSION Midazolam HCl (Midazolam 100mg/100ml-0.9%Nacl) 100 mg in 100 mls @ 1 mls/hr IVPB TITR [facility]; Protocol Last Admin: 10/01/19 06:04 Dose: Not Given Dexmedetomidine HCl 200 mcg/ (Sodium Chloride) 50 mls @ 3.16 mls/hr IVPB TITR [facility] Last Admin: 09/30/19 16:20 Dose: Not Given Propofol (Diprivan -) 1,000,000 mcg in 100 mls @ 1.897 mls/hr IVPB TITR [facility]; Protocol Last Titration: 09/30/19 21:19 Dose: 40 mcg/kg/min, 15.175 mls/hr Famotidine/Sodium Chloride (Pepcid 20 Mg Premixed Ivpb -) 20 mg in 50 mls @ 100 mls/hr IVPB BID [facility] Last Admin: 10/01/19 10:38 Dose: 100 mls/hr Fentanyl 500 mcg/ Dextrose 100 mls @ 5 mls/hr IVPB TITR [facility]; Protocol Last Admin: 09/30/19 13:20 Dose: 25 mcg/hr, 5 mls/hr Insulin Aspart (Novolog Vial Sliding Scale -) 1 vial SQ ACHS [facility]; Protocol Last Admin: 10/01/19 12:20 Dose: 2 units Levalbuterol HCl (Xopenex) 0.63 mg IH RTID [facility] Last Admin: 10/01/19 08:56 Dose: 0.63 mg Lisinopril (Prinivil) 5 mg PO DAILY [facility] Last Admin: 10/01/19 10:37 Dose: 5 mg Methylprednisolone Sodium Succinate (Solu-Medrol -) 40 mg IVPUSH BID [facility] Last Admin: 10/01/19 10:37 Dose: 40 mg Metoprolol Tartrate (Lopressor -) 100 mg PO BID [facility] Last Admin: 10/01/19 10:37 Dose: 100 mg Verapamil HCl (Calan -) 80 mg NGT TID [facility] Last Admin: 10/01/19 06:06 Dose: 80 mg Verapamil HCl (Calan Injection -) 5 mg IVPUSH Q6H PRN PRN Reason: TACHYCARDIA - Objective Vital Signs: Vital Signs Temperature 99.1 F 10/01/19 10:00 Pulse Rate 89 10/01/19 12:00 Respiratory Rate 32 H 10/01/19 12:21 Blood Pressure 151/73 10/01/19 12:00 O2 Sat by Pulse Oximetry (%) 98 09/30/19 20:43 Constitutional: Yes: Well Nourished Eyes: Yes: Conjunctiva Clear HENT: Yes: Atraumatic, Normocephalic Neck: Yes: Supple, Trachea Midline Cardiovascular: Yes: Pulse Irregular. No: JVD Respiratory: Yes: Regular, CTA Bilaterally Gastrointestinal: Yes: Normal Bowel Sounds Edema: No Labs: CBC, BMP 10/01/19 05:20 10/01/19 05:20 INR, PTT INR 1.16 (0.83-1.09) H 09/30/19 06:18 Fibrinogen 247.0 mg/dL (238-498) 09/30/19 06:18 Problem List - Problems (1) Acute exacerbation of COPD with asthma Code(s): J44.1 - CHRONIC OBSTRUCTIVE PULMONARY DISEASE W (ACUTE) EXACERBATION; J45.901 - UNSPECIFIED ASTHMA WITH (ACUTE) EXACERBATION (2) Afib Code(s): I48.91 - UNSPECIFIED ATRIAL FIBRILLATION Qualifiers: Atrial fibrillation type: unspecified Qualified Code(s): I48.91 - Unspecified atrial fibrillation Assessment/Plan She is a 59 year old female with a PMH of hypertension, AFIB, CHF, COPD, DM, sleep apnea, and CKD. She presented to the ER with SOB, respiratory failure, was intubated due to hypercapneic respiratory failure. Found with influeza, HCAP and atrial fibrillation with RVR. Echocardiogram 04/26/19 showed normal LV funciton, moderate severe AI, moderate MR, severe TR. Atrial Fibrillation -Her HR is predomently well controlled. there are short pauses. When agitated and during weaning it increases. WOuld continue with present dose of medications. When weaing can use IV verapamil if agitation results in tachycardia. -h/o Pafib with sinus andrea when in sinus - Metoprolol 100mg bid/ Verapamil 80 mg TID Please check Dig level. -cont tele monitoring in ICU
--- NOTE | 2019-10-01 14:38 | PN ---
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, Physician History of Present Illness: Pt seen and examined at bedside. She remains in the ICU. She remains intubated. - Current Medication List Current Medications: Active Medications Acetaminophen (Tylenol Oral Solution -) 1,000 mg PO Q6H PRN PRN Reason: FEVER Last Admin: 09/30/19 00:42 Dose: 1,000 mg Apixaban (Eliquis -) 2.5 mg PO BID [facility] Last Admin: 10/01/19 10:38 Dose: 2.5 mg Budesonide/Formoterol Fumarate (Symbicort 80/4.5mcg -) 2 puff IH BID [facility] Last Admin: 10/01/19 10:37 Dose: Not Given Chlorhexidine Gluconate (Hibiclens For Decolonization -) 1 applic TP HS [facility] Last Admin: 09/30/19 21:10 Dose: 1 applic Chlorhexidine Gluconate (Peridex -) 15 ml MM BID [facility] Last Admin: 10/01/19 10:37 Dose: 15 ml Digoxin (Lanoxin -) 0.125 mg PO DAILY [facility] Last Admin: 10/01/19 10:38 Dose: 0.125 mg Ergocalciferol (Drisdol -) 50,000 unit PO We@1000 [facility] Last Admin: 09/29/19 10:58 Dose: Not Given Gabapentin (Neurontin Oral Liquid -) 300 mg PO TID [facility] Last Admin: 10/01/19 06:03 Dose: 300 mg Hydralazine HCl (Apresoline -) 50 mg PO TID [facility] Last Admin: 10/01/19 06:03 Dose: 50 mg Hydralazine HCl (Apresoline Injection -) 10 mg IVPUSH Q6H PRN PRN Reason: HYPERTENSION Midazolam HCl (Midazolam 100mg/100ml-0.9%Nacl) 100 mg in 100 mls @ 1 mls/hr IVPB TITR [facility]; Protocol Last Admin: 10/01/19 06:04 Dose: Not Given Dexmedetomidine HCl 200 mcg/ (Sodium Chloride) 50 mls @ 3.16 mls/hr IVPB TITR [facility] Last Admin: 09/30/19 16:20 Dose: Not Given Propofol (Diprivan -) 1,000,000 mcg in 100 mls @ 1.897 mls/hr IVPB TITR [facility]; Protocol Last Titration: 09/30/19 21:19 Dose: 40 mcg/kg/min, 15.175 mls/hr Famotidine/Sodium Chloride (Pepcid 20 Mg Premixed Ivpb -) 20 mg in 50 mls @ 100 mls/hr IVPB BID [facility] Last Admin: 10/01/19 10:38 Dose: 100 mls/hr Fentanyl 500 mcg/ Dextrose 100 mls @ 5 mls/hr IVPB TITR [facility]; Protocol Last Admin: 09/30/19 13:20 Dose: 25 mcg/hr, 5 mls/hr Insulin Aspart (Novolog Vial Sliding Scale -) 1 vial SQ ACHS [facility]; Protocol Last Admin: 10/01/19 12:20 Dose: 2 units Levalbuterol HCl (Xopenex) 0.63 mg IH RTID [facility] Last Admin: 10/01/19 08:56 Dose: 0.63 mg Lisinopril (Prinivil) 5 mg PO DAILY [facility] Last Admin: 10/01/19 10:37 Dose: 5 mg Methylprednisolone Sodium Succinate (Solu-Medrol -) 40 mg IVPUSH BID [facility] Last Admin: 10/01/19 10:37 Dose: 40 mg Metoprolol Tartrate (Lopressor -) 100 mg PO BID [facility] Last Admin: 10/01/19 10:37 Dose: 100 mg Verapamil HCl (Calan -) 80 mg NGT TID [facility] Last Admin: 10/01/19 06:06 Dose: 80 mg Verapamil HCl (Calan Injection -) 5 mg IVPUSH Q6H PRN PRN Reason: TACHYCARDIA - Objective Vital Signs: Vital Signs Temperature 99.1 F 10/01/19 10:00 Pulse Rate 89 10/01/19 12:00 Respiratory Rate 32 H 10/01/19 12:21 Blood Pressure 151/73 10/01/19 12:00 O2 Sat by Pulse Oximetry (%) 98 09/30/19 20:43 Constitutional: Yes: Calm Eyes: Yes: Conjunctiva Clear HENT: Yes: Atraumatic Neck: Yes: Supple Cardiovascular: Yes: S1, S2 Respiratory: Yes: Mechanically Ventilated Gastrointestinal: Yes: Soft Genitourinary: Yes: [place] Present Edema: No Neurological: Yes: Lethargy Labs: CBC, BMP 10/01/19 05:20 10/01/19 05:20 INR, PTT INR 1.16 (0.83-1.09) H 09/30/19 06:18 Fibrinogen 247.0 mg/dL (238-498) 09/30/19 06:18 Assessment/Plan Current Medications Generic Name Dose Route Start Last Admin Trade Name Frearmaan PRN Reason Stop Dose Admin Acetaminophen 1,000 mg 09/28/19 16:51 09/30/19 00:42 Tylenol Oral Solution - PO 1,000 mg Q6H PRN Administration FEVER Apixaban 2.5 mg 09/25/19 10:00 10/01/19 10:38 Eliquis - PO 2.5 mg BID [facility] Administration Budesonide/Formoterol Fumarate 2 puff 09/25/19 10:00 10/01/19 10:37 Symbicort 80/4.5mcg - IH Not Given BID [facility] Chlorhexidine Gluconate 1 applic 09/24/19 22:00 09/30/19 21:10 Hibiclens For Decolonization - TP 1 applic HS [facility] Administration Chlorhexidine Gluconate 15 ml 09/29/19 22:00 10/01/19 10:37 Peridex - MM 15 ml BID [facility] Administration Digoxin 0.125 mg 09/25/19 12:00 10/01/19 10:38 Lanoxin - PO 0.125 mg DAILY [facility] Administration Ergocalciferol 50,000 unit 09/29/19 10:00 09/29/19 10:58 Drisdol - PO Not Given We@1000 [facility] Gabapentin 300 mg 09/25/19 14:00 10/01/19 06:03 Neurontin Oral Liquid - PO 300 mg TID [facility] Administration Hydralazine HCl 50 mg 09/25/19 06:00 10/01/19 06:03 Apresoline - PO 50 mg TID [facility] Administration Hydralazine HCl 10 mg 09/30/19 11:28 Apresoline Injection - IVPUSH Q6H PRN HYPERTENSION Midazolam HCl 100 mg in 100 mls @ 1 mls/hr 09/27/19 05:45 10/01/19 06:04 Midazolam 100mg/100ml-0.9%Nacl IVPB Not Given TITR [facility] Protocol 1 MG/HR Dexmedetomidine HCl 200 mcg/ 50 mls @ 3.16 mls/hr 09/29/19 14:30 09/30/19 16: 20 Sodium Chloride IVPB Not Given TITR [facility] 0.2 MCG/KG/HR Propofol 1,000,000 mcg in 100 mls @ 1.897 mls/hr 09/29/19 21:15 09/30/19 21: 19 Diprivan - IVPB 40 mcg/kg/min TITR [facility] 15.175 mls/hr Titration Protocol 5 MCG/KG/MIN Famotidine/Sodium Chloride 20 mg in 50 mls @ 100 mls/hr 09/30/19 22:00 10:38 Pepcid 20 Mg Premixed Ivpb - IVPB 100 mls/hr BID [facility] Administration Fentanyl 500 mcg/ Dextrose 100 mls @ 5 mls/hr 09/30/19 11:45 09/30/19 13:20 IVPB 25 mcg/hr TITR [facility] 5 mls/hr Administration Protocol 25 MCG/HR Insulin Aspart 1 vial 09/25/19 16:30 10/01/19 12:20 Novolog Vial Sliding Scale - SQ 2 units ACHS [facility] Administration Protocol Levalbuterol HCl 0.63 mg 09/25/19 14:00 10/01/19 14:35 Xopenex IH 0.63 mg RTID JOLENE Administration Lisinopril 5 mg 09/30/19 10:00 10/01/19 10:37 Prinivil PO 5 mg DAILY JOLENE Administration Methylprednisolone Sodium Succinate 40 mg 09/30/19 10:00 10/01/19 10:37 Solu-Medrol - IVPUSH 40 mg BID JOLENE Administration Metoprolol Tartrate 100 mg 10/01/19 10:00 10/01/19 10:37 Lopressor - PO 100 mg BID JOLENE Administration Verapamil HCl 80 mg 09/28/19 11:36 10/01/19 06:06 Calan - NGT 80 mg TID JOLENE Administration Verapamil HCl 5 mg 09/30/19 16:34 Calan Injection - IVPUSH Q6H PRN TACHYCARDIA Impression 1. CKD 2. CHF 3. a-fib 4. lower ext edema 5. COPD 6. active smoker 7. non compliance 8. acute resp failure 9. influenza 10. hypernatremia Plan - hold lasix - free water with feeds - repeat labs in am - monitor sodium - vent support with weaning per pulmonary - pt had ckd, renal function is stable - avoid nsaids
[2019-10-01] MEDS: DEXMEDETOMIDINE HCL 200 MCG in SODIUM CHLORIDE 48 ML IVPB SCH (16:10)
--- NOTE | 2019-10-01 17:38 | PN ---
Physical Exam: SUBJECTIVE: Patient seen and examined. Pt became tachy & hypertensive w/ wean trial yesterday. Continuing sedation, daily sed indra's. OBJECTIVE: Vital Signs Period Temp Pulse Resp BP Sys/Salgado Pulse Ox Last 24 Hr 98.1 F-99.1 F 82-130 16-32 130-174/60-99 94-98 GENERAL: intubated, sedated HEENT: NCAT. OGT in place. LUNGS: intubated on vent. scattered rhonchi. HEART: irregularly irregular. S1S2. no murmurs. ABDOMEN: Soft, nontender, not distended, + BS EXTREMITIES: 2+ pulses present no periph edema SKIN: Warm, dry Laboratory Results - last 24 hr 09/30/19 09/30/19 10/01/19 18:50 21:11 05:20 WBC 7.9 RBC 4.14 Hgb 12.4 Hct 37.9 MCV 91.6 MCH 30.0 MCHC 32.7 RDW 15.9 H Plt Count 68 L MPV 11.1 Absolute Neuts (auto) 6.9 Neutrophils % 87.6 H Lymphocytes % 6.5 L Monocytes % 5.7 Eosinophils % 0.0 Basophils % 0.2 Nucleated RBC % 0 Sodium Potassium Chloride Carbon Dioxide Anion Gap BUN Creatinine Est GFR (CKD-EPI)AfAm Est GFR (CKD-EPI)NonAf POC Glucometer 173 Random Glucose Calcium Phosphorus Magnesium Total Bilirubin AST ALT Alkaline Phosphatase Total Protein Albumin Urine Color Yellow Urine Appearance Clear Urine pH 5.0 Ur Specific [place] 1.019 Urine Protein 1+ H Urine Glucose (UA) Negative Urine Ketones Negative Urine Blood Negative Urine Nitrite Negative Urine Bilirubin Negative Urine Urobilinogen 0.2 Ur Leukocyte Esterase Negative Urine WBC (Auto) 1 Urine RBC (Auto) 4 Urine Casts (Auto) 3 U Epithel Cells (Auto) 1.5 Urine Bacteria (Auto) 9.6 10/01/19 10/01/19 10/01/19 05:20 05:54 12:10 WBC RBC Hgb Hct MCV MCH MCHC RDW Plt Count MPV Absolute Neuts (auto) Neutrophils % Lymphocytes % Monocytes % Eosinophils % Basophils % Nucleated RBC % Sodium 149 H Potassium 3.8 Chloride 109 H Carbon Dioxide 35 H Anion Gap 5 L BUN 72.9 H Creatinine 1.5 H Est GFR (CKD-EPI)AfAm 43.13 Est GFR (CKD-EPI)NonAf 37.21 POC Glucometer 185 140 Random Glucose 211 H Calcium 8.5 Phosphorus 3.3 Magnesium 3.0 H Total Bilirubin 0.7 AST 19 ALT 26 Alkaline Phosphatase 72 Total Protein 5.8 L Albumin 2.6 L Urine Color Urine Appearance Urine pH Ur Specific [place] Urine Protein Urine Glucose (UA) Urine Ketones Urine Blood Urine Nitrite Urine Bilirubin Urine Urobilinogen Ur Leukocyte Esterase Urine WBC (Auto) Urine RBC (Auto) Urine Casts (Auto) U Epithel Cells (Auto) Urine Bacteria (Auto) Active Medications Generic Name Dose Route Start Last Admin Trade Name Freq PRN Reason Stop Dose Admin Acetaminophen 1,000 mg 09/28/19 16:51 09/30/19 00:42 Tylenol Oral Solution - PO 1,000 mg Q6H PRN Administration FEVER Apixaban 2.5 mg 09/25/19 10:00 10/01/19 10:38 Eliquis - PO 2.5 mg BID JOLENE Administration Budesonide/Formoterol Fumarate 2 puff 09/25/19 10:00 10/01/19 10:37 Symbicort 80/4.5mcg - IH Not Given BID JOLENE Chlorhexidine Gluconate 1 applic 09/24/19 22:00 09/30/19 21:10 Hibiclens For Decolonization - TP 1 applic HS JOLENE Administration Chlorhexidine Gluconate 15 ml 09/29/19 22:00 10/01/19 10:37 Peridex - MM 15 ml BID JOLENE Administration Digoxin 0.125 mg 09/25/19 12:00 10/01/19 10:38 Lanoxin - PO 0.125 mg DAILY JOLENE Administration Ergocalciferol 50,000 unit 09/29/19 10:00 09/29/19 10:58 Drisdol - PO Not Given We@1000 JOLENE Gabapentin 300 mg 09/25/19 14:00 10/01/19 15:00 Neurontin Oral Liquid - PO 300 mg TID JOELNE Administration Hydralazine HCl 50 mg 09/25/19 06:00 10/01/19 15:00 Apresoline - PO 50 mg TID JOLENE Administration Hydralazine HCl 10 mg 09/30/19 11:28 Apresoline Injection - IVPUSH Q6H PRN HYPERTENSION Midazolam HCl 100 mg in 100 mls @ 1 mls/hr 09/27/19 05:45 10/01/19 06:04 Midazolam 100mg/100ml-0.9%Nacl IVPB Not Given TITR JOLENE Protocol 1 MG/HR Dexmedetomidine HCl 200 mcg/ 50 mls @ 3.16 mls/hr 09/29/19 14:30 10/01/19 16: 10 Sodium Chloride IVPB Not Given TITR JOLENE 0.2 MCG/KG/HR Propofol 1,000,000 mcg in 100 mls @ 1.897 mls/hr 09/29/19 21:15 09/30/19 21: 19 Diprivan - IVPB 40 mcg/kg/min TITR JOLENE 15.175 mls/hr Titration Protocol 5 MCG/KG/MIN Famotidine/Sodium Chloride 20 mg in 50 mls @ 100 mls/hr 09/30/19 22:00 10:38 Pepcid 20 Mg Premixed Ivpb - IVPB 100 mls/hr BID JOLENE Administration Fentanyl 500 mcg/ Dextrose 100 mls @ 5 mls/hr 09/30/19 11:45 09/30/19 13:20 IVPB 25 mcg/hr TITR JOLENE 5 mls/hr Administration Protocol 25 MCG/HR Insulin Aspart 1 vial 09/25/19 16:30 10/01/19 12:20 Novolog Vial Sliding Scale - SQ 2 units ACHS JOLENE Administration Protocol Levalbuterol HCl 0.63 mg 09/25/19 14:00 10/01/19 14:35 Xopenex IH 0.63 mg RTID JOLEEN Administration Lisinopril 5 mg 09/30/19 10:00 10/01/19 10:37 Prinivil PO 5 mg DAILY JOLENE Administration Methylprednisolone Sodium Succinate 40 mg 09/30/19 10:00 10/01/19 10:37 Solu-Medrol - IVPUSH 40 mg BID JOLENE Administration Metoprolol Tartrate 100 mg 10/01/19 10:00 10/01/19 10:37 Lopressor - PO 100 mg BID JOLEEN Administration Verapamil HCl 80 mg 09/28/19 11:36 10/01/19 15:00 Calan - NGT 80 mg TID JOLENE Administration Verapamil HCl 5 mg 09/30/19 16:34 Calan Injection - IVPUSH Q6H PRN TACHYCARDIA ASSESSMENT/PLAN: 59 y.o. F PMH A-Fib (on Eliquis), CHF, HTN, CKD IIIb, COPD/Asthma (requiring intubation in past), prior PE, pulmonary fibrosis, TANISHA, DM, presents with SOB and admitted to ICU for acute hypoxic hypercapnic resp failure s/p intubation. 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 Borden) following #Pulm -Acute on Chronic Hypoxic/hypercapnic Respiratory failure-- intubated -continue bronchodilators-- limit b-agonists d/t tachycardia episodes -Maintain O2 sat >90% -Monitor Ppeak/Pplat -continue solumedrol now 40mg IV BID -CXR: improved #GI -continue OG tube feeds -ppi #Renal -Hx CKD-- trend renal labs -continue free water w/ tube feeds -Dr. Akhtar following #ID -low grade fever yesterday 09/30 -Influenza A + on admission-- droplet precautions -f/u repeat urine cx -repeat blood cx NGTD, legionella/ stepg ag neg -abx: s/p 7 day course cefepime, observe off abx #Heme/onc -chronic thrombocytopenia, now exacerbated by infection, sepsis, and flu -continue to monitor cbc -Dr. Ramos following -INR 1.16 #Endo -Hx DM -BGMs ACHS -ISS #FENLTD -No standing fluids -trend lytes replete prn -continue tube feeds -peripheral lines -montes in place since 09/30/2019 -ET tube in place since 09/25/2019 #PPX -Eliquis 2.5mg BID -pepcid 20mg IV BID #Dispo -continue ICU level of care Visit type - Emergency Visit Emergency Visit: No - New Patient This patient is new to me today: No - Critical Care Critical Care patient: Yes Total Critical Care Time (in minutes): 45 Critical Care Statement: The care of this patient involved high complexity decision making to prevent further life threatening deterioration of the patient 's condition and/or to evaluate & treat vital organ system(s) failure or risk of failure. ATTENDING PHYSICIAN STATEMENT I saw and evaluated the patient. I reviewed the resident's note and discussed the case with the resident. I agree with the resident's findings and plan as documented. SUBJECTIVE: OBJECTIVE: ASSESSMENT AND PLAN:
[2019-10-01] MEDS: FENTANYL INJECTION 500 MCG in DEXTROSE 5%-WATER - 90 ML IVPB SCH ×2 (18:58→21:52)
[2019-10-01] MEDS ORDERED: fentaNYL CITRATE 250 MCG/5 ML VIAL ONE (21:14)
[2019-10-01] MEDS: CHLORHEXIDINE GLUCONATE 4% CLEANSER FOR DECOLONIZATION TP SCH (21:51)
[2019-10-01] MEDS ORDERED: INSULIN (NOVOLOG MIX 70/30) 100 UNITS/ML MDV SQ ONE (22:47)
[2019-10-02] MEDS: VERAPAMIL HCL 80 MG TABLET NGT SCH ×3 (05:24→21:11)
[2019-10-02] MEDS: hydrALAZINE HCL 50 MG TABLET (FP) PO SCH ×3 (05:27→21:11)
[2019-10-02] MEDS: PROPOFOL 1,000,000 MCG/100 ML VIAL IVPB SCH (05:29)
[2019-10-02] MEDS: GABAPENTIN 250 MG/5 ML ORAL SOLUTION, 470 ML BOTTLE PO SCH ×3 (05:31→21:12)
[2019-10-02] MEDS: MIDAZOLAM IN 0.9 % SOD.CHLORID 100 MG/100 ML PLAST..BAG IVPB SCH (06:21)
[2019-10-02] MEDS: INSULIN SLIDING SCALE (NOVOLOG) 1 VIAL SQ SCH ×4 (06:23→21:27)
[2019-10-02 07:04] LABS: HEMATOCRIT 39.9 % (32.4-45.2); MCH 29.8 pg (25.7-33.7); MCHC 32.6 g/dl (32.0-36.0); MEAN CELL VOLUME 91.5 fl (80-96); MEAN PLT VOLUME 11.8 fl (7.5-11.1); PLATELET COUNT 64 K/MM3 (134-434); RBC 4.36 M/mm3 (3.60-5.2); RDW 15.9 % (11.6-15.6); WHITE BLOOD COUNT 9.9 K/mm3 (4.0-10.0)
[2019-10-02 07:36] LABS: ALBUMIN 2.5 g/dl (3.4-5.0); BILIRUBIN,TOTAL 0.6 mg/dL (0.2-1); BLOOD UREA NITROGEN 76.4 mg/dL (7-18); CALCIUM 8.5 mg/dL (8.5-10.1); CREATININE 1.4 mg/dL (0.55-1.3); MAGNESIUM 2.8 mg/dL (1.8-2.4); PHOSPHOROUS 4.3 mg/dL (2.5-4.9); POTASSIUM 3.7 mmol/L (3.5-5.1); TOT PROT 5.9 g/dl (6.4-8.2)
--- NOTE | 2019-10-02 07:46 | PN ---
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 (short form) - Note 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: Pulm/CCM SUBJECTIVE: -improved PS trial this am, awakening for probable extubation -+ fluid balance last 2days, Cr stable - thrombocytopenia stable OBJECTIVE: Vital Signs Temp 98.3 F 10/02/19 05:00 Pulse 108 H 10/02/19 06:00 Resp 14 10/02/19 06:00 BP 128/76 10/02/19 06:00 Pulse Ox 98 10/01/19 22:31 Intake & Output 10/01/19 10/01/19 10/02/19 11:59 23:59 11:59 Intake Total 1790 1480 1164 Output Total 400 400 700 Balance 1390 1080 464 Weight 63.531 kg 63.82 kg Intake: IV 300 540 442 DIPRIVAN - 1,000,000 mcg 240 360 300 In 100 ml @ 5 MCG/KG/MIN 1.897 mls/hr IVPB TITR [facility] Rx#:[id number] Sublimaze Injection - 500 60 180 142 Mcg In D5w - 90 ml @ 25 MCG/HR 5 mls/hr IVPB TITR JLOENE Rx#:[id number] IVPB 150 100 Tube Feeding 480 480 422 Tube Irrigant 860 360 300 Output: Urine 400 400 700 Flores 400 400 700 Other: Voiding Method Indwelling Catheter Indwelling Catheter Bowel Movement No No Yes: smear Body Mass Index (BMI) 24.7 Weight Measurement Method [facility] Active Medications Acetaminophen (Tylenol Oral Solution -) 1,000 mg PO Q6H PRN PRN Reason: FEVER Last Admin: 09/30/19 00:42 Dose: 1,000 mg Apixaban (Eliquis -) 2.5 mg PO BID [facility] Last Admin: 10/01/19 21:51 Dose: 2.5 mg Budesonide/Formoterol Fumarate (Symbicort 80/4.5mcg -) 2 puff IH BID [facility] Last Admin: 10/01/19 22:04 Dose: Not Given Chlorhexidine Gluconate (Hibiclens For Decolonization -) 1 applic TP HS [facility] Last Admin: 10/01/19 21:51 Dose: 1 applic Chlorhexidine Gluconate (Peridex -) 15 ml MM BID [facility] Last Admin: 10/01/19 21:51 Dose: 15 ml Digoxin (Lanoxin -) 0.125 mg PO DAILY [facility] Last Admin: 01/24/20 10:38 Dose: 0.125 mg Ergocalciferol (Drisdol -) 50,000 unit PO We@1000 [facility] Last Admin: 09/29/19 10:58 Dose: Not Given Gabapentin (Neurontin Oral Liquid -) 300 mg PO TID [facility] Last Admin: 10/02/19 05:31 Dose: 300 mg Hydralazine HCl (Apresoline -) 50 mg PO TID [facility] Last Admin: 10/02/19 05:27 Dose: 50 mg Hydralazine HCl (Apresoline Injection -) 10 mg IVPUSH Q6H PRN PRN Reason: HYPERTENSION Midazolam HCl (Midazolam 100mg/100ml-0.9%Nacl) 100 mg in 100 mls @ 1 mls/hr IVPB TITR [facility]; Protocol Last Admin: 10/02/19 06:21 Dose: Not Given Dexmedetomidine HCl 200 mcg/ (Sodium Chloride) 50 mls @ 3.16 mls/hr IVPB TITR [facility] Last Admin: 10/01/19 16:10 Dose: Not Given Propofol (Diprivan -) 1,000,000 mcg in 100 mls @ 1.897 mls/hr IVPB TITR [facility]; Protocol Last Admin: 10/02/19 05:29 Dose: 50 mcg/kg/min, 18.969 mls/hr Famotidine/Sodium Chloride (Pepcid 20 Mg Premixed Ivpb -) 20 mg in 50 mls @ 100 mls/hr IVPB BID [facility] Last Admin: 10/01/19 21:51 Dose: 100 mls/hr Fentanyl 500 mcg/ Dextrose 100 mls @ 5 mls/hr IVPB TITR [facility]; Protocol Last Admin: 10/01/19 21:52 Dose: 40 mcg/hr, 8 mls/hr Insulin Aspart (Novolog Vial Sliding Scale -) 1 vial SQ ACHS [facility]; Protocol Last Admin: 10/02/19 06:23 Dose: 2 units Levalbuterol HCl (Xopenex) 0.63 mg IH RTID [facility] Last Admin: 10/01/19 21:33 Dose: 0.63 mg Lisinopril (Prinivil) 5 mg PO DAILY [facility] Last Admin: 10/01/19 10:37 Dose: 5 mg Methylprednisolone Sodium Succinate (Solu-Medrol -) 40 mg IVPUSH BID [facility] Last Admin: 10/01/19 22:17 Dose: 40 mg Metoprolol Tartrate (Lopressor -) 100 mg PO BID [facility] Last Admin: 10/01/19 21:51 Dose: 100 mg Verapamil HCl (Calan -) 80 mg NGT TID [facility] Last Admin: 10/02/19 05:24 Dose: 80 mg Verapamil HCl (Calan Injection -) 5 mg IVPUSH Q6H PRN PRN Reason: TACHYCARDIA Gen: intubated, sedated Heart: RRR Lung: diminished bases, clear anterior Abd: soft, nontender Ext: + edema Neuro: withdrawal bilaterally Laboratory Results - last 24 hr 09/30/19 09/30/19 10/01/19 06:18 06:18 12:10 WBC RBC Hgb Hct MCV MCH MCHC RDW Plt Count MPV Sodium Potassium Chloride Carbon Dioxide Anion Gap BUN Creatinine Est GFR (CKD-EPI)AfAm Est GFR (CKD-EPI)NonAf POC Glucometer 140 Random Glucose Calcium Phosphorus Magnesium Erythropoietin 3.0 Total Bilirubin AST ALT Alkaline Phosphatase Total Protein Albumin [place] Screen Negative 10/01/19 10/01/19 10/02/19 17:35 22:01 05:22 WBC RBC Hgb Hct MCV MCH MCHC RDW Plt Count MPV Sodium Potassium Chloride Carbon Dioxide Anion Gap BUN Creatinine Est GFR (CKD-EPI)AfAm Est GFR (CKD-EPI)NonAf POC Glucometer 156 186 183 Random Glucose Calcium Phosphorus Magnesium Erythropoietin Total Bilirubin AST ALT Alkaline Phosphatase Total Protein Albumin [place] Screen 10/02/19 10/02/19 06:20 06:20 WBC 9.9 RBC 4.36 Hgb 13.0 Hct 39.9 MCV 91.5 MCH 29.8 MCHC 32.6 RDW 15.9 H Plt Count 64 L MPV 11.8 H Sodium 149 H Potassium 3.7 Chloride 110 H Carbon Dioxide 34 H Anion Gap 4 L BUN 76.4 H Creatinine 1.4 H Est GFR (CKD-EPI)AfAm 46.88 Est GFR (CKD-EPI)NonAf 40.45 POC Glucometer Random Glucose 220 H Calcium 8.5 Phosphorus 4.3 Magnesium 2.8 H Erythropoietin Total Bilirubin 0.6 AST 14 L ALT 24 Alkaline Phosphatase 79 Total Protein 5.9 L Albumin 2.5 L [place] Screen ASSESSMENT AND PLAN: Acute on Chronic Hypoxic and Hypercapneic Respiratory Failure Influenza A Pneumonia Acute COPD Exacerbation Atrial Fibrillation with RVR LV Diastolic Dysfunction HTN DM CKD Obstructive Sleep Apnea - Completed tamiflu - Medrol - Inhaled bronchodilators standing and PRN - O2 to keep SpO2 >90% - Monitor Ppeak/Pplat - Rate control - Continue anticoagulation - Daily sedation vacations to assess mental status - Spontaneous breathing trials as tolerated with hopes of extubation - Enteral feeds , currently on hold for extubation - DVT/GI prophylaxis - Requires continued ICU monitoring Pricilla WESLEY [id number] 35min CCT
[2019-10-02] MEDS: LEVALBUTEROL HCL 0.63 MG/3 ML VIAL.NEB. IH SCH ×3 (08:00→21:00)
[2019-10-02] MEDS ORDERED: FUROSEMIDE 40 MG/4 ML INJECTABLE VIAL IVPUSH ONE (08:26)
[2019-10-02] MEDS: FAMOTIDINE 20 MG/50 ML IVPB 20 MG/50 ML MG IVPB SCH ×2 (09:42→21:11)
[2019-10-02] MEDS: methylPREDNISolone NA SUCC 40 MG/1 ML VIAL IVPUSH SCH ×2 (09:43→21:11)
[2019-10-02] MEDS: CHLORHEXIDINE GLUCONATE 0.12% 15ML CUP MM SCH ×2 (09:43→21:11)
--- NOTE | 2019-10-02 09:44 | PN ---
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 (short form) - Note 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: RENAL pt seen and examined in icu makes eye contact but does not attempt to speak Last Vital Signs Temp Pulse Resp BP Pulse Ox 98.3 F 108 H 14 128/76 98 10/02/19 05:00 10/02/19 06:00 10/02/19 06:00 10/02/19 06:00 10/01/19 22:31 lungs has some rhonchi cvs s1s2 rr abd soft ext no edema neuro a+ox3 CBC, BMP 10/02/19 06:20 10/02/19 06:20 Current Medications Generic Name Dose Route Start Last Admin Trade Name Freq PRN Reason Stop Dose Admin Acetaminophen 1,000 mg 09/28/19 16:51 09/30/19 00:42 Tylenol Oral Solution - PO 1,000 mg Q6H PRN Administration FEVER Apixaban 2.5 mg 09/25/19 10:00 10/01/19 21:51 Eliquis - PO 2.5 mg BID JOLENE Administration Budesonide/Formoterol Fumarate 2 puff 09/25/19 10:00 10/01/19 22:04 Symbicort 80/4.5mcg - IH Not Given BID JOLENE Chlorhexidine Gluconate 1 applic 09/24/19 22:00 10/01/19 21:51 Hibiclens For Decolonization - TP 1 applic HS JOLENE Administration Chlorhexidine Gluconate 15 ml 09/29/19 22:00 10/01/19 21:51 Peridex - MM 15 ml BID JOLENE Administration Digoxin 0.125 mg 09/25/19 12:00 10/01/19 10:38 Lanoxin - PO 0.125 mg DAILY JOLENE Administration Ergocalciferol 50,000 unit 09/29/19 10:00 09/29/19 10:58 Drisdol - PO Not Given We@1000 JOLENE Gabapentin 300 mg 09/25/19 14:00 10/02/19 05:31 Neurontin Oral Liquid - PO 300 mg TID JOLENE Administration Hydralazine HCl 50 mg 09/25/19 06:00 10/02/19 05:27 Apresoline - PO 50 mg TID JOLENE Administration Hydralazine HCl 10 mg 09/30/19 11:28 Apresoline Injection - IVPUSH Q6H PRN HYPERTENSION Midazolam HCl 100 mg in 100 mls @ 1 mls/hr 09/27/19 05:45 10/02/19 06:21 Midazolam 100mg/100ml-0.9%Nacl IVPB Not Given TITR JOLENE Protocol 1 MG/HR Dexmedetomidine HCl 200 mcg/ 50 mls @ 3.16 mls/hr 09/29/19 14:30 10/01/19 16: 10 Sodium Chloride IVPB Not Given TITR JOLENE 0.2 MCG/KG/HR Propofol 1,000,000 mcg in 100 mls @ 1.897 mls/hr 09/29/19 21:15 10/02/19 05: 29 Diprivan - IVPB 50 mcg/kg/min TITR JOLENE 18.969 mls/hr Administration Protocol 5 MCG/KG/MIN Famotidine/Sodium Chloride 20 mg in 50 mls @ 100 mls/hr 09/30/19 22:00 21:51 Pepcid 20 Mg Premixed Ivpb - IVPB 100 mls/hr BID JOLENE Administration Fentanyl 500 mcg/ Dextrose 100 mls @ 5 mls/hr 09/30/19 11:45 10/01/19 21:52 IVPB 40 mcg/hr TITR JOLENE 8 mls/hr Administration Protocol 25 MCG/HR Insulin Aspart 1 vial 09/25/19 16:30 10/02/19 06:23 Novolog Vial Sliding Scale - SQ 2 units ACHS JOLENE Administration Protocol Levalbuterol HCl 0.63 mg 09/25/19 14:00 10/01/19 21:33 Xopenex IH 0.63 mg RTID JOLENE Administration Lisinopril 5 mg 09/30/19 10:00 10/01/19 10:37 Prinivil PO 5 mg DAILY JOLENE Administration Methylprednisolone Sodium Succinate 40 mg 09/30/19 10:00 10/01/19 22:17 Solu-Medrol - IVPUSH 40 mg BID JOLENE Administration Metoprolol Tartrate 100 mg 10/01/19 10:00 10/01/19 21:51 Lopressor - PO 100 mg BID JOLENE Administration Verapamil HCl 80 mg 09/28/19 11:36 10/02/19 05:24 Calan - NGT 80 mg TID JOLENE Administration Verapamil HCl 5 mg 09/30/19 16:34 Calan Injection - IVPUSH Q6H PRN TACHYCARDIA Impression 1. CKD 2. CHF 3. a-fib 4. lower ext edema 5. COPD 6. active smoker 7. non compliance 8. acute resp failure 9. influenza 10. hypernatremia 11. probable posthypercapneic alkalosis Plan - hold lasix - free water with feeds - repeat labs in am - monitor sodium - vent support with weaning per pulmonary - pt had ckd, renal function is stable - avoid nsaids -would start d5w -repeat abg MV
[2019-10-02] MEDS: METOPROLOL TARTRATE 50 MG TABLET (FP) PO SCH ×2 (10:14→21:11)
[2019-10-02] MEDS: DIGOXIN 0.125 MG TABLET (FP) PO SCH (10:14)
[2019-10-02] MEDS: APIXABAN 2.5 MG TABLET PO SCH ×2 (10:14→21:11)
[2019-10-02] MEDS: LISINOPRIL 5 MG TABLET (FP) PO SCH (10:15)
[2019-10-02] MEDS: BUDESONIDE/FORMETEROL FUMARATE 80/4.5 mcg INHALER IH SCH ×2 (10:21→21:18)
[2019-10-02] MEDS: ACETAMINOPHEN 325 MG TABLET (FP) PO PRN ×2 (11:39→16:47)
[2019-10-02] MEDS: oxyCODONE HCL 5 MG TABLET PO PRN ×2 (11:40→16:47)
--- NOTE | 2019-10-02 12:18 | PN ---
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, Physician Chief Complaint: INTUBATED , FAMILY BEDSIDE TO BE EXTUBATED TODAY ON CPAP TRIAL - Current Medication List Current Medications: Active Medications Acetaminophen (Tylenol Oral Solution -) 1,000 mg PO Q6H PRN PRN Reason: FEVER Last Admin: 09/30/19 00:42 Dose: 1,000 mg Acetaminophen (Tylenol -) 325 mg PO Q4H PRN PRN Reason: PAIN SCALE 1-5 Stop: 10/05/19 11:03 Last Admin: 10/02/19 11:39 Dose: 325 mg Apixaban (Eliquis -) 2.5 mg PO BID [facility] Last Admin: 10/02/19 10:14 Dose: 2.5 mg Budesonide/Formoterol Fumarate (Symbicort 80/4.5mcg -) 2 puff IH BID [facility] Last Admin: 10/02/19 10:21 Dose: 2 puff Chlorhexidine Gluconate (Hibiclens For Decolonization -) 1 applic TP HS [facility] Last Admin: 10/01/19 21:51 Dose: 1 applic Chlorhexidine Gluconate (Peridex -) 15 ml MM BID [facility] Last Admin: 10/02/19 09:43 Dose: Not Given Digoxin (Lanoxin -) 0.125 mg PO DAILY [facility] Last Admin: 10/02/19 10:14 Dose: 0.125 mg Ergocalciferol (Drisdol -) 50,000 unit PO We@1000 [facility] Last Admin: 09/29/19 10:58 Dose: Not Given Gabapentin (Neurontin Oral Liquid -) 300 mg PO TID [facility] Last Admin: 10/02/19 05:31 Dose: 300 mg Hydralazine HCl (Apresoline -) 50 mg PO TID [facility] Last Admin: 10/02/19 05:27 Dose: 50 mg Hydralazine HCl (Apresoline Injection -) 10 mg IVPUSH Q6H PRN PRN Reason: HYPERTENSION Famotidine/Sodium Chloride (Pepcid 20 Mg Premixed Ivpb -) 20 mg in 50 mls @ 100 mls/hr IVPB BID [facility] Last Admin: 10/02/19 09:42 Dose: 100 mls/hr Insulin Aspart (Novolog Vial Sliding Scale -) 1 vial SQ ACHS [facility]; Protocol Last Admin: 10/02/19 11:50 Dose: Not Given Levalbuterol HCl (Xopenex) 0.63 mg IH RTID [facility] Last Admin: 10/02/19 08:00 Dose: 0.63 mg Lisinopril (Prinivil) 5 mg PO DAILY [facility] Last Admin: 10/02/19 10:15 Dose: 5 mg Methylprednisolone Sodium Succinate (Solu-Medrol -) 40 mg IVPUSH BID [facility] Last Admin: 10/02/19 09:43 Dose: 40 mg Metoprolol Tartrate (Lopressor -) 100 mg PO BID [facility] Last Admin: 10/02/19 10:14 Dose: 100 mg Oxycodone HCl (Roxicodone -) 5 mg PO Q4H PRN PRN Reason: PAIN SCALE 1-5 Last Admin: 10/02/19 11:40 Dose: 5 mg Verapamil HCl (Calan -) 80 mg NGT TID [facility] Last Admin: 10/02/19 05:24 Dose: 80 mg Verapamil HCl (Calan Injection -) 5 mg IVPUSH Q6H PRN PRN Reason: TACHYCARDIA - Objective Vital Signs: Vital Signs Temperature 98.2 F 10/02/19 10:00 Pulse Rate 133 H 10/02/19 10:14 Respiratory Rate 22 H 10/02/19 10:00 Blood Pressure 153/78 10/02/19 10:00 O2 Sat by Pulse Oximetry (%) 93 L 10/02/19 09:00 Constitutional: Yes: Mild Distress Cardiovascular: Yes: Regular Rate and Rhythm Respiratory: Yes: Mechanically Ventilated Gastrointestinal: Yes: Soft Genitourinary: Yes: Incontinence Musculoskeletal: Yes: Muscle Weakness Edema: No Neurological: Yes: Pre-Existing Deficit Labs: CBC, BMP 10/02/19 06:20 10/02/19 06:20 INR, PTT INR 1.16 (0.83-1.09) H 09/30/19 06:18 Fibrinogen 247.0 mg/dL (238-498) 09/30/19 06:18 Problem List - Problems (1) Acute exacerbation of COPD with asthma Code(s): J44.1 - CHRONIC OBSTRUCTIVE PULMONARY DISEASE W (ACUTE) EXACERBATION; J45.901 - UNSPECIFIED ASTHMA WITH (ACUTE) EXACERBATION (2) Acute respiratory failure Code(s): J96.00 - ACUTE RESPIRATORY FAILURE, UNSP W HYPOXIA OR HYPERCAPNIA (3) Influenza A Code(s): J10.1 - FLU DUE TO OTH IDENT INFLUENZA VIRUS W OTH RESP MANIFEST (4) Pneumonia Code(s): J18.9 - PNEUMONIA, UNSPECIFIED ORGANISM Qualifiers: Pneumonia type: due to unspecified organism Laterality: unspecified laterality Lung location: unspecified part of lung Qualified Code(s): J18.9 - Pneumonia, unspecified organism (5) JOSEPH (acute kidney injury) Code(s): N17.9 - ACUTE KIDNEY FAILURE, UNSPECIFIED (6) Abnormal CT of the chest Code(s): R93.89 - ABNORMAL FINDINGS ON DX IMAGING OF OT BODY STRUCTURES (7) Acute exacerbation of chronic obstructive pulmonary disease (COPD) Code(s): J44.1 - CHRONIC OBSTRUCTIVE PULMONARY DISEASE W (ACUTE) EXACERBATION (8) Acute kidney injury superimposed on CKD Code(s): N17.9 - ACUTE KIDNEY FAILURE, UNSPECIFIED; N18.9 - CHRONIC KIDNEY DISEASE, UNSPECIFIED (9) Acute on chronic diastolic (congestive) heart failure Code(s): I50.33 - ACUTE ON CHRONIC DIASTOLIC (CONGESTIVE) HEART FAILURE (10) Afib Code(s): I48.91 - UNSPECIFIED ATRIAL FIBRILLATION Qualifiers: Atrial fibrillation type: unspecified Qualified Code(s): I48.91 - Unspecified atrial fibrillation (11) Anxiety and depression Code(s): F41.9 - ANXIETY DISORDER, UNSPECIFIED; F32.9 - MAJOR DEPRESSIVE DISORDER, SINGLE EPISODE, UNSPECIFIED (12) Leg edema Code(s): R60.0 - LOCALIZED EDEMA (13) Cigarette nicotine dependence Code(s): F17.200 - NICOTINE DEPENDENCE, UNSPECIFIED, UNCOMPLICATED Assessment/Plan IV TAMIFLU AND IVF WILL CHANGE TO PO MEDS AND PO DIET STEROIDS IV/NEBS 02 SUPPORT EXTUBATE TODAY OFF VENT SUPPORT PT EVAL OOB TO CHAIR ISOLATION RESP DROPLETS FOR INFLUENZA
[2019-10-02] MEDS ORDERED: INSULIN (NOVOLOG) ASPART 100 UNITS/ML 10ML VIAL ONE (13:25)
[2019-10-02] MEDS: VERAPAMIL HCL 5 MG/2 ML VIAL IVPUSH PRN (16:37)
[2019-10-02] MEDS: CHLORHEXIDINE GLUCONATE 4% CLEANSER FOR DECOLONIZATION TP SCH (21:12)
[2019-10-03] MEDS ORDERED: MELATONIN 1 MG TABLET PO SCH ×2 (00:45→19:02)
[2019-10-03] MEDS: hydrALAZINE HCL 20 MG/ML VIAL IVPUSH PRN ×2 (01:08→18:06)
[2019-10-03] MEDS: VERAPAMIL HCL 5 MG/2 ML VIAL IVPUSH PRN ×2 (02:55→19:26)
[2019-10-03] MEDS: oxyCODONE HCL 5 MG TABLET PO PRN (03:41)
[2019-10-03] MEDS: VERAPAMIL HCL 80 MG TABLET NGT SCH ×3 (05:58→21:07)
[2019-10-03] MEDS: GABAPENTIN 250 MG/5 ML ORAL SOLUTION, 470 ML BOTTLE PO SCH ×4 (05:58→21:06)
[2019-10-03] MEDS: hydrALAZINE HCL 50 MG TABLET (FP) PO SCH ×3 (05:59→21:20)
[2019-10-03] MEDS: INSULIN SLIDING SCALE (NOVOLOG) 1 VIAL SQ SCH ×4 (06:00→21:23)
[2019-10-03 06:10] LABS: HEMATOCRIT 42.7 % (32.4-45.2); HEMOGLOBIN 13.7 GM/dL (10.7-15.3); MCH 29.1 pg (25.7-33.7); MCHC 32.1 g/dl (32.0-36.0); MEAN CELL VOLUME 90.6 fl (80-96); MEAN PLT VOLUME 11.7 fl (7.5-11.1); PLATELET COUNT 78 K/MM3 (134-434); RBC 4.71 M/mm3 (3.60-5.2); RDW 15.8 % (11.6-15.6); WHITE BLOOD COUNT 11.7 K/mm3 (4.0-10.0)
[2019-10-03 06:40] LABS: BLOOD UREA NITROGEN 68.8 mg/dL (7-18); CALCIUM 9.3 mg/dL (8.5-10.1); CREATININE 1.5 mg/dL (0.55-1.3); MAGNESIUM 2.9 mg/dL (1.8-2.4); PHOSPHOROUS 3.8 mg/dL (2.5-4.9); POTASSIUM 3.7 mmol/L (3.5-5.1)
[2019-10-03] MEDS: DEXTROSE 5%-WATER - 1,000 ML IV SCH (07:38)
[2019-10-03] MEDS: LEVALBUTEROL HCL 0.63 MG/3 ML VIAL.NEB. IH SCH ×3 (08:00→21:00)
[2019-10-03] MEDS ORDERED: FUROSEMIDE 40 MG/4 ML INJECTABLE VIAL IVPUSH ONE (09:13)
--- NOTE | 2019-10-03 09:13 | PN ---
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 (short form) - Note 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: 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s Pulm/CCM Pt was seen and examined in the ICU. Extubated to HiFlo yesterday. Remains in A- fib with RVR and hypertensive despite Metoprol and Verapramil. WBC tranding up. Started free water for Na 151. C/o poor sleep overnight. Some desat in am. O2 sat 92% with HiFlo at 60% and 50L. Active Medications Acetaminophen (Tylenol Oral Solution -) 1,000 mg PO Q6H PRN PRN Reason: FEVER Last Admin: 09/30/19 00:42 Dose: 1,000 mg Acetaminophen (Tylenol -) 325 mg PO Q4H PRN PRN Reason: PAIN SCALE 1-5 Stop: 10/05/19 11:03 Last Admin: 10/02/19 16:47 Dose: 325 mg Apixaban (Eliquis -) 2.5 mg PO BID [facility] Last Admin: 10/02/19 21:11 Dose: 2.5 mg Budesonide/Formoterol Fumarate (Symbicort 80/4.5mcg -) 2 puff IH BID [facility] Last Admin: 10/02/19 21:18 Dose: 2 puff Chlorhexidine Gluconate (Hibiclens For Decolonization -) 1 applic TP HS [facility] Last Admin: 10/02/19 21:12 Dose: 1 applic Chlorhexidine Gluconate (Peridex -) 15 ml MM BID [facility] Last Admin: 10/02/19 21:11 Dose: 15 ml Digoxin (Lanoxin -) 0.125 mg PO DAILY [facility] Last Admin: 10/02/19 10:14 Dose: 0.125 mg Ergocalciferol (Drisdol -) 50,000 unit PO We@1000 [facility] Last Admin: 09/29/19 10:58 Dose: Not Given Furosemide (Lasix Injection -) 40 mg IVPUSH ONCE ONE Stop: 10/03/19 09:14 Gabapentin (Neurontin Oral Liquid -) 300 mg PO TID [facility] Last Admin: 10/03/19 05:58 Dose: 300 mg Hydralazine HCl (Apresoline -) 50 mg PO TID [facility] Last Admin: 10/03/19 05:59 Dose: 50 mg Hydralazine HCl (Apresoline Injection -) 10 mg IVPUSH Q6H PRN PRN Reason: HYPERTENSION Last Admin: 10/03/19 01:08 Dose: 10 mg Famotidine/Sodium Chloride (Pepcid 20 Mg Premixed Ivpb -) 20 mg in 50 mls @ 100 mls/hr IVPB BID [facility] Last Admin: 10/03/19 09:16 Dose: 100 mls/hr Dextrose (D5w -) 1,000 mls @ 75 mls/hr IV ASDIR [facility] Last Admin: 10/03/19 07:38 Dose: 75 mls/hr Insulin Aspart (Novolog Vial Sliding Scale -) 1 vial SQ ACHS [facility]; Protocol Last Admin: 10/03/19 06:00 Dose: 2 units Levalbuterol HCl (Xopenex) 0.63 mg IH RTID [facility] Last Admin: 10/02/19 21:00 Dose: 0.63 mg Lisinopril (Prinivil) 5 mg PO DAILY [facility] Last Admin: 10/02/19 10:15 Dose: 5 mg Melatonin (Melatonin) 3 mg PO HS [facility] Last Admin: 10/03/19 01:06 Dose: 3 mg Methylprednisolone Sodium Succinate (Solu-Medrol -) 40 mg IVPUSH BID [facility] Last Admin: 10/03/19 09:16 Dose: 40 mg Metoprolol Tartrate (Lopressor -) 100 mg PO BID [facility] Last Admin: 10/02/19 21:11 Dose: 100 mg Oxycodone HCl (Roxicodone -) 5 mg PO Q4H PRN PRN Reason: PAIN SCALE 1-5 Last Admin: 10/03/19 03:41 Dose: 5 mg Verapamil HCl (Calan -) 80 mg NGT TID [facility] Last Admin: 10/03/19 05:58 Dose: 80 mg Verapamil HCl (Calan Injection -) 5 mg IVPUSH Q6H PRN PRN Reason: TACHYCARDIA Last Admin: 10/03/19 02:55 Dose: 5 mg Vital Signs Period Temp Pulse Resp BP Sys/Salgado Pulse Ox Last 24 Hr 98.2 F-98.9 F 98-133 16-30 129-192/73-128 50-93 Intake & Output 10/02/19 10/03/19 10/03/19 23:59 07:59 15:59 Intake Total 350 Output Total 850 600 Balance -850 -250 Weight 61.552 kg CBC,CMP WBC 11.7 K/mm3 (4.0-10.0) H 10/03/19 05:50 RBC 4.71 M/mm3 (3.60-5.2) 10/03/19 05:50 Hgb 13.7 GM/dL (10.7-15.3) 10/03/19 05:50 Hct 42.7 % (32.4-45.2) 10/03/19 05:50 MCV 90.6 fl (80-96) 10/03/19 05:50 MCH 29.1 pg (25.7-33.7) 10/03/19 05:50 MCHC 32.1 g/dl (32.0-36.0) 10/03/19 05:50 RDW 15.8 % (11.6-15.6) H 10/03/19 05:50 Plt Count 78 K/MM3 (134-434) L D 10/03/19 05:50 MPV 11.7 fl (7.5-11.1) H 10/03/19 05:50 Absolute Neuts (auto) 6.9 K/mm3 (1.5-8.0) 10/01/19 05:20 Neutrophils % 87.6 % (42.8-82.8) H 10/01/19 05:20 Lymphocytes % 6.5 % (8-40) L 10/01/19 05:20 Monocytes % 5.7 % (3.8-10.2) 10/01/19 05:20 Eosinophils % 0.0 % (0-4.5) 10/01/19 05:20 Basophils % 0.2 % (0-2.0) 10/01/19 05:20 Nucleated RBC % 0 % (0-0) 10/01/19 05:20 Sodium 151 mmol/L (136-145) H 10/03/19 05:50 Potassium 3.7 mmol/L (3.5-5.1) 10/03/19 05:50 Chloride 111 mmol/L (98-107) H 10/03/19 05:50 Carbon Dioxide 34 mmol/L (21-32) H 10/03/19 05:50 Anion Gap 7 MMOL/L (8-16) L 10/03/19 05:50 BUN 68.8 mg/dL (7-18) H 10/03/19 05:50 Creatinine 1.5 mg/dL (0.55-1.3) H 10/03/19 05:50 Est GFR (CKD-EPI)AfAm 43.13 10/03/19 05:50 Est GFR (CKD-EPI)NonAf 37.21 10/03/19 05:50 POC Glucometer 161 UNITS (80-120) 10/03/19 05:56 Random Glucose 170 mg/dL (74-106) H 10/03/19 05:50 Lactic Acid 1.3 mmol/L (0.4-2.0) 09/24/19 16:30 Calcium 9.3 mg/dL (8.5-10.1) 10/03/19 05:50 Phosphorus 3.8 mg/dL (2.5-4.9) 10/03/19 05:50 Magnesium 2.9 mg/dL (1.8-2.4) H 10/03/19 05:50 Iron 120 ug/dL (50-175) 09/30/19 06:18 TIBC 195 ug/dL (250-450) L 09/30/19 06:18 Iron Saturation 61 % (17.5-39) H 09/30/19 06:18 Unsaturated IBC 75 ug/dL (200-275) L 09/30/19 06:18 Erythropoietin 3.0 mIU/mL (2.6-18.5) 09/30/19 06:18 Ferritin 218.9 ng/ml (8-388) 09/30/19 06:18 Total Bilirubin 0.6 mg/dL (0.2-1) 10/02/19 06:20 AST 14 U/L (15-37) L 10/02/19 06:20 ALT 24 U/L (13-61) 10/02/19 06:20 Alkaline Phosphatase 79 U/L (45-117) 10/02/19 06:20 Creatine Kinase 48 U/L (26-192) 09/24/19 16:30 Troponin I 0.03 ng/ml (0.00-0.05) 09/24/19 16:30 B-Natriuretic Peptide 87186.3 pg/ml (5-125) H 09/24/19 16:30 Total Protein 5.9 g/dl (6.4-8.2) L 10/02/19 06:20 Albumin 2.5 g/dl (3.4-5.0) L 10/02/19 06:20 Vitamin B12 487 pg/ml (193-986) 09/30/19 06:18 Serum Folate 16 ng/mL (3.1-17.5) 09/30/19 06:18 TSH 0.05 uIU/ml (0.358-3.74) L 09/30/19 06:18 Gen: in NAD on HiFlo HEENT: Dry MM Heart: tachy, irreg, S1S2 Lung: diminished bases, clear anterior Abd: soft, nontender Ext: + edema Neuro: Awake and appropriate ASSESSMENT AND PLAN: Acute on Chronic Hypoxic and Hypercapneic Respiratory Failure Influenza A Pneumonia Acute COPD Exacerbation Atrial Fibrillation with RVR LV Diastolic Dysfunction HTN DM CKD Obstructive Sleep Apnea - Aggressive pulmonary toilet - Completed tamiflu - Cont Medrol - Inhaled bronchodilators standing and PRN - O2 to keep SpO2 >90% - Rate control - Continue anticoagulation - Swallow eval - Advance po diet as germania -Free water for hypernatremia - DVT/GI prophylaxis - Requires continued ICU monitoring Tosin Chavez, ACNP
[2019-10-03] MEDS: FAMOTIDINE 20 MG/50 ML IVPB 20 MG/50 ML MG IVPB SCH ×2 (09:16→21:06)
[2019-10-03] MEDS: methylPREDNISolone NA SUCC 40 MG/1 ML VIAL IVPUSH SCH ×2 (09:16→21:07)
--- NOTE | 2019-10-03 09:16 | PN ---
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 (short form) - Note 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: RENAL pt seen and examined in icu awake and alert about to have breakfast Last Vital Signs Temp Pulse Resp BP Pulse Ox 98.6 F 122 H 26 H 164/73 50 L 10/03/19 07:00 10/03/19 07:00 10/03/19 07:00 10/03/19 07:00 10/03/19 08:26 lungs has some rhonchi cvs s1s2 rr abd soft ext no edema neuro a+ox3 CBC, BMP 10/03/19 05:50 10/03/19 05:50 Current Medications Generic Name Dose Route Start Last Admin Trade Name Freq PRN Reason Stop Dose Admin Acetaminophen 1,000 mg 09/28/19 16:51 09/30/19 00:42 Tylenol Oral Solution - PO 1,000 mg Q6H PRN Administration FEVER Acetaminophen 325 mg 10/02/19 11:04 10/02/19 16:47 Tylenol - PO 10/05/19 11:03 325 mg Q4H PRN Administration PAIN SCALE 1-5 Apixaban 2.5 mg 09/25/19 10:00 10/02/19 21:11 Eliquis - PO 2.5 mg BID [facility] Administration Budesonide/Formoterol Fumarate 2 puff 09/25/19 10:00 10/02/19 21:18 Symbicort 80/4.5mcg - IH 2 puff BID [facility] Administration Chlorhexidine Gluconate 1 applic 09/24/19 22:00 10/02/19 21:12 Hibiclens For Decolonization - TP 1 applic HS [facility] Administration Chlorhexidine Gluconate 15 ml 09/29/19 22:00 10/02/19 21:11 Peridex - MM 15 ml BID [facility] Administration Digoxin 0.125 mg 09/25/19 12:00 10/02/19 10:14 Lanoxin - PO 0.125 mg DAILY [facility] Administration Ergocalciferol 50,000 unit 09/29/19 10:00 09/29/19 10:58 Drisdol - PO Not Given We@1000 [facility] Gabapentin 300 mg 09/25/19 14:00 10/03/19 05:58 Neurontin Oral Liquid - PO 300 mg TID [facility] Administration Hydralazine HCl 50 mg 09/25/19 06:00 10/03/19 05:59 Apresoline - PO 50 mg TID [facility] Administration Hydralazine HCl 10 mg 09/30/19 11:28 10/03/19 01:08 Apresoline Injection - IVPUSH 10 mg Q6H PRN Administration HYPERTENSION Famotidine/Sodium Chloride 20 mg in 50 mls @ 100 mls/hr 09/30/19 22:00 21:11 Pepcid 20 Mg Premixed Ivpb - IVPB 100 mls/hr BID [facility] Administration Dextrose 1,000 mls @ 75 mls/hr 10/03/19 07:00 10/03/19 07:38 D5w - IV 75 mls/hr ASDIR [facility] Administration Insulin Aspart 1 vial 09/25/19 16:30 10/03/19 06:00 Novolog Vial Sliding Scale - SQ 2 units ACHS [facility] Administration Protocol Levalbuterol HCl 0.63 mg 09/25/19 14:00 10/02/19 21:00 Xopenex IH 0.63 mg RTID [facility] Administration Lisinopril 5 mg 09/30/19 10:00 10/02/19 10:15 Prinivil PO 5 mg DAILY [facility] Administration Melatonin 3 mg 10/03/19 00:45 10/03/19 01:06 Melatonin PO 3 mg HS [facility] Administration Methylprednisolone Sodium Succinate 40 mg 09/30/19 10:00 10/02/19 21:11 Solu-Medrol - IVPUSH 40 mg BID [facility] Administration Metoprolol Tartrate 100 mg 10/01/19 10:00 10/02/19 21:11 Lopressor - PO 100 mg BID [facility] Administration Oxycodone HCl 5 mg 10/02/19 11:04 10/03/19 03:41 Roxicodone - PO 5 mg Q4H PRN Administration PAIN SCALE 1-5 Verapamil HCl 80 mg 09/28/19 11:36 10/03/19 05:58 Calan - NGT 80 mg TID [facility] Administration Verapamil HCl 5 mg 09/30/19 16:34 10/03/19 02:55 Calan Injection - IVPUSH 5 mg Q6H PRN Administration TACHYCARDIA Impression 1. CKD 2. CHF 3. a-fib 4. lower ext edema 5. COPD 6. active smoker 7. non compliance 8. acute resp failure 9. influenza 10. hypernatremia worsened probably due to decreased intake prior to extubation 11. probable posthypercapneic alkalosis Plan keep off lasix d5w started s/p tamiflu s/p extubation MV
[2019-10-03] MEDS: APIXABAN 2.5 MG TABLET PO SCH ×2 (09:38→21:05)
[2019-10-03] MEDS: DIGOXIN 0.125 MG TABLET (FP) PO SCH (09:38)
[2019-10-03] MEDS: METOPROLOL TARTRATE 50 MG TABLET (FP) PO SCH ×2 (09:39→21:05)
[2019-10-03] MEDS: LISINOPRIL 5 MG TABLET (FP) PO SCH (09:39)
[2019-10-03] MEDS: BUDESONIDE/FORMETEROL FUMARATE 80/4.5 mcg INHALER IH SCH ×2 (09:40→21:08)
--- NOTE | 2019-10-03 09:49 | PN ---
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, Physician Chief Complaint: AWAKE ALERT ON AIRVO 02 SUPPORT DUE TO DESATURATION EARLIER THIS MORNING STILL TACHYCARDIC - Current Medication List Current Medications: Active Medications Acetaminophen (Tylenol Oral Solution -) 1,000 mg PO Q6H PRN PRN Reason: FEVER Last Admin: 09/30/19 00:42 Dose: 1,000 mg Acetaminophen (Tylenol -) 325 mg PO Q4H PRN PRN Reason: PAIN SCALE 1-5 Stop: 10/05/19 11:03 Last Admin: 10/02/19 16:47 Dose: 325 mg Apixaban (Eliquis -) 2.5 mg PO BID [facility] Last Admin: 10/03/19 09:38 Dose: 2.5 mg Budesonide/Formoterol Fumarate (Symbicort 80/4.5mcg -) 2 puff IH BID [facility] Last Admin: 10/03/19 09:40 Dose: 2 puff Chlorhexidine Gluconate (Hibiclens For Decolonization -) 1 applic TP HS [facility] Last Admin: 10/02/19 21:12 Dose: 1 applic Chlorhexidine Gluconate (Peridex -) 15 ml MM BID [facility] Last Admin: 10/02/19 21:11 Dose: 15 ml Digoxin (Lanoxin -) 0.125 mg PO DAILY [facility] Last Admin: 10/03/19 09:38 Dose: 0.125 mg Ergocalciferol (Drisdol -) 50,000 unit PO We@1000 [facility] Last Admin: 09/29/19 10:58 Dose: Not Given Gabapentin (Neurontin Oral Liquid -) 300 mg PO TID [facility] Last Admin: 10/03/19 05:58 Dose: 300 mg Hydralazine HCl (Apresoline -) 50 mg PO TID [facility] Last Admin: 10/03/19 05:59 Dose: 50 mg Hydralazine HCl (Apresoline Injection -) 10 mg IVPUSH Q6H PRN PRN Reason: HYPERTENSION Last Admin: 10/03/19 01:08 Dose: 10 mg Famotidine/Sodium Chloride (Pepcid 20 Mg Premixed Ivpb -) 20 mg in 50 mls @ 100 mls/hr IVPB BID [facility] Last Admin: 10/03/19 09:16 Dose: 100 mls/hr Dextrose (D5w -) 1,000 mls @ 75 mls/hr IV ASDIR [facility] Last Admin: 10/03/19 07:38 Dose: 75 mls/hr Insulin Aspart (Novolog Vial Sliding Scale -) 1 vial SQ ACHS [facility]; Protocol Last Admin: 10/03/19 06:00 Dose: 2 units Levalbuterol HCl (Xopenex) 0.63 mg IH RTID [facility] Last Admin: 10/02/19 21:00 Dose: 0.63 mg Lisinopril (Prinivil) 5 mg PO DAILY [facility] Last Admin: 10/03/19 09:39 Dose: 5 mg Melatonin (Melatonin) 3 mg PO HS [facility] Last Admin: 10/03/19 01:06 Dose: 3 mg Methylprednisolone Sodium Succinate (Solu-Medrol -) 40 mg IVPUSH BID [facility] Last Admin: 10/03/19 09:16 Dose: 40 mg Metoprolol Tartrate (Lopressor -) 100 mg PO BID [facility] Last Admin: 10/03/19 09:39 Dose: 100 mg Oxycodone HCl (Roxicodone -) 5 mg PO Q4H PRN PRN Reason: PAIN SCALE 1-5 Last Admin: 10/03/19 03:41 Dose: 5 mg Verapamil HCl (Calan -) 80 mg NGT TID [facility] Last Admin: 10/03/19 05:58 Dose: 80 mg Verapamil HCl (Calan Injection -) 5 mg IVPUSH Q6H PRN PRN Reason: TACHYCARDIA Last Admin: 10/03/19 02:55 Dose: 5 mg - Objective Vital Signs: Vital Signs Temperature 98.6 F 10/03/19 07:00 Pulse Rate 138 H 10/03/19 09:38 Respiratory Rate 26 H 10/03/19 07:00 Blood Pressure 164/73 10/03/19 07:00 O2 Sat by Pulse Oximetry (%) 50 L 10/03/19 08:26 Constitutional: Yes: Mild Distress Cardiovascular: Yes: Tachycardia, Pulse Irregular Respiratory: Yes: On Nasal O2, Other (AIRVO) Gastrointestinal: Yes: Soft Genitourinary: Yes: Flores Present Musculoskeletal: Yes: Muscle Weakness Neurological: Yes: Pre-Existing Deficit Psychiatric: Yes: Other Labs: CBC, BMP 10/03/19 05:50 10/03/19 05:50 INR, PTT INR 1.16 (0.83-1.09) H 09/30/19 06:18 Fibrinogen 247.0 mg/dL (238-498) 09/30/19 06:18 Problem List - Problems (1) Acute exacerbation of COPD with asthma Code(s): J44.1 - CHRONIC OBSTRUCTIVE PULMONARY DISEASE W (ACUTE) EXACERBATION; J45.901 - UNSPECIFIED ASTHMA WITH (ACUTE) EXACERBATION (2) Acute respiratory failure Code(s): J96.00 - ACUTE RESPIRATORY FAILURE, UNSP W HYPOXIA OR HYPERCAPNIA (3) Influenza A Code(s): J10.1 - FLU DUE TO OTH IDENT INFLUENZA VIRUS W OTH RESP MANIFEST (4) Pneumonia Code(s): J18.9 - PNEUMONIA, UNSPECIFIED ORGANISM Qualifiers: Pneumonia type: due to unspecified organism Laterality: unspecified laterality Lung location: unspecified part of lung Qualified Code(s): J18.9 - Pneumonia, unspecified organism (5) JOSEPH (acute kidney injury) Code(s): N17.9 - ACUTE KIDNEY FAILURE, UNSPECIFIED (6) Abnormal CT of the chest Code(s): R93.89 - ABNORMAL FINDINGS ON DX IMAGING OF OT BODY STRUCTURES (7) Acute exacerbation of chronic obstructive pulmonary disease (COPD) Code(s): J44.1 - CHRONIC OBSTRUCTIVE PULMONARY DISEASE W (ACUTE) EXACERBATION (8) Acute kidney injury superimposed on CKD Code(s): N17.9 - ACUTE KIDNEY FAILURE, UNSPECIFIED; N18.9 - CHRONIC KIDNEY DISEASE, UNSPECIFIED (9) Acute on chronic diastolic (congestive) heart failure Code(s): I50.33 - ACUTE ON CHRONIC DIASTOLIC (CONGESTIVE) HEART FAILURE (10) Afib Code(s): I48.91 - UNSPECIFIED ATRIAL FIBRILLATION Qualifiers: Atrial fibrillation type: unspecified Qualified Code(s): I48.91 - Unspecified atrial fibrillation (11) Anxiety and depression Code(s): F41.9 - ANXIETY DISORDER, UNSPECIFIED; F32.9 - MAJOR DEPRESSIVE DISORDER, SINGLE EPISODE, UNSPECIFIED (12) Leg edema Code(s): R60.0 - LOCALIZED EDEMA (13) Cigarette nicotine dependence Code(s): F17.200 - NICOTINE DEPENDENCE, UNSPECIFIED, UNCOMPLICATED Assessment/Plan DIGOXIN STARTED FOR TACHYCARDIA D/W ICU SHIP [facility] PILOT IV TAMIFLU AND IVF WILL CHANGE TO PO MEDS AND PO DIET STEROIDS IV/NEBS 02 SUPPORT AIRVO PT EVAL OOB TO CHAIR ISOLATION RESP DROPLETS FOR INFLUENZA
[2019-10-03] MEDS: CHLORHEXIDINE GLUCONATE 0.12% 15ML CUP MM SCH ×2 (09:58→21:06)
[2019-10-03 11:07] LABS: ARTERIAL BLD GAS O2 SATURATION 99.2 % (95-98); ARTERIAL BLOOD GAS BASE EXCESS 11.3 meq/l (-2-2); ARTERIAL BLOOD GAS PO2 181 mmHg (80-100); ARTERIAL BLOOD GAS pH 7.56 (7.35-7.45)
[2019-10-03 11:09] LABS: ALLENS TEST POSITIVE
--- NOTE | 2019-10-03 13:48 | PN ---
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, Physician Chief Complaint: Tachycardia History of Present Illness: This is a 59 year old female with a PMH of hypertension, AFIB, CHF, COPD, DM, sleep apnea, and CKD. She presented to the ER with SOB, respiratory failure, was intubated due to hypercapneic respiratory failure. Found with influeza, HCAP and atrial fibrillation with RVR. Echocardiogram 04/26/19 showed normal LV funciton, moderate severe AI, moderate MR, severe TR. She is a 59 year old female with a PMH of hypertension, AFIB, CHF, COPD, DM, sleep apnea, and CKD. She presented to the ER with SOB, respiratory failure, was intubated due to hypercapneic respiratory failure. Found with influeza, HCAP and atrial fibrillation with RVR. Echocardiogram 04/26/19 showed normal LV funciton, moderate severe AI, moderate MR, severe TR. Atrial Fibrillation -Her HR is predomently well controlled. there are short pauses. When agitated and during weaning it increases. WOuld continue with present dose of medications. When weaing can use IV verapamil if agitation results in tachycardia. -h/o Pafib with sinus andrea when in sinus - Metoprolol 100mg bid/ Verapamil 80 mg TID Please check Dig level. -cont tele monitoring in ICU - Current Medication List Current Medications: Active Medications Acetaminophen (Tylenol Oral Solution -) 1,000 mg PO Q6H PRN PRN Reason: FEVER Last Admin: 09/30/19 00:42 Dose: 1,000 mg Acetaminophen (Tylenol -) 325 mg PO Q4H PRN PRN Reason: PAIN SCALE 1-5 Stop: 10/05/19 11:03 Last Admin: 10/02/19 16:47 Dose: 325 mg Apixaban (Eliquis -) 2.5 mg PO BID [facility] Last Admin: 10/03/19 09:38 Dose: 2.5 mg Budesonide/Formoterol Fumarate (Symbicort 80/4.5mcg -) 2 puff IH BID [facility] Last Admin: 10/03/19 09:40 Dose: 2 puff Chlorhexidine Gluconate (Hibiclens For Decolonization -) 1 applic TP HS [facility] Last Admin: 10/02/19 21:12 Dose: 1 applic Chlorhexidine Gluconate (Peridex -) 15 ml MM BID [facility] Last Admin: 10/03/19 09:58 Dose: Not Given Digoxin (Lanoxin -) 0.125 mg PO DAILY [facility] Last Admin: 10/03/19 09:38 Dose: 0.125 mg Ergocalciferol (Drisdol -) 50,000 unit PO We@1000 [facility] Last Admin: 09/29/19 10:58 Dose: Not Given Gabapentin (Neurontin Oral Liquid -) 300 mg PO TID [facility] Last Admin: 10/03/19 05:58 Dose: 300 mg Hydralazine HCl (Apresoline -) 50 mg PO TID [facility] Last Admin: 10/03/19 13:08 Dose: 50 mg Hydralazine HCl (Apresoline Injection -) 10 mg IVPUSH Q6H PRN PRN Reason: HYPERTENSION Last Admin: 10/03/19 01:08 Dose: 10 mg Famotidine/Sodium Chloride (Pepcid 20 Mg Premixed Ivpb -) 20 mg in 50 mls @ 100 mls/hr IVPB BID [facility] Last Admin: 10/03/19 09:16 Dose: 100 mls/hr Dextrose (D5w -) 1,000 mls @ 75 mls/hr IV ASDIR [facility] Last Admin: 10/03/19 07:38 Dose: 75 mls/hr Insulin Aspart (Novolog Vial Sliding Scale -) 1 vial SQ ACHS [facility]; Protocol Last Admin: 10/03/19 11:29 Dose: Not Given Levalbuterol HCl (Xopenex) 0.63 mg IH RTID [facility] Last Admin: 10/03/19 08:00 Dose: 0.63 mg Lisinopril (Prinivil) 5 mg PO DAILY [facility] Last Admin: 10/03/19 09:39 Dose: 5 mg Melatonin (Melatonin) 3 mg PO HS [facility] Last Admin: 10/03/19 01:06 Dose: 3 mg Methylprednisolone Sodium Succinate (Solu-Medrol -) 40 mg IVPUSH BID [facility] Last Admin: 10/03/19 09:16 Dose: 40 mg Metoprolol Tartrate (Lopressor -) 100 mg PO BID [facility] Last Admin: 10/03/19 09:39 Dose: 100 mg Oxycodone HCl (Roxicodone -) 5 mg PO Q4H PRN PRN Reason: PAIN SCALE 1-5 Last Admin: 10/03/19 03:41 Dose: 5 mg Verapamil HCl (Calan -) 80 mg NGT TID [facility] Last Admin: 10/03/19 13:10 Dose: 80 mg Verapamil HCl (Calan Injection -) 5 mg IVPUSH Q6H PRN PRN Reason: TACHYCARDIA Last Admin: 10/03/19 02:55 Dose: 5 mg - Objective Vital Signs: Vital Signs Temperature 98.4 F 10/03/19 13:00 Pulse Rate 105 H 10/03/19 13:00 Respiratory Rate 26 H 10/03/19 13:00 Blood Pressure 168/111 H 10/03/19 13:00 O2 Sat by Pulse Oximetry (%) 50 L 10/03/19 08:26 Constitutional: Yes: Mild Distress Eyes: Yes: WNL Neck: Yes: WNL Cardiovascular: Yes: Pulse Irregular, S1, S2 Respiratory: Yes: Rhonchi Gastrointestinal: Yes: Soft Edema: No Neurological: Yes: Alert, Oriented Labs: CBC, BMP 10/03/19 05:50 10/03/19 05:50 INR, PTT INR 1.16 (0.83-1.09) H 09/30/19 06:18 Fibrinogen 247.0 mg/dL (238-498) 09/30/19 06:18 Assessment/Plan 59 year old female with a PMH of hypertension, AFIB, CHF, COPD, DM, sleep apnea , and CKD. She presented to the ER with SOB, respiratory failure, was intubated due to hypercapneic respiratory failure. Found with influeza, HCAP and atrial fibrillation with RVR. Echocardiogram 04/26/19 showed normal LV funciton, moderate severe AI, moderate MR, severe TR. Atrial Fibrillation Presently rates are fast 100 - 130's When agitated it increases. Would continue with present dose of Verapamil and metoprolol for rate control. Metoprolol 100mg bid/ Verapamil 80 mg TID Continue AC with Apixaban 2.5 mg PO Q12h Can continue Digoxin 0.125mg (Level on 10/02/2019 was 1.41)
[2019-10-03] MEDS ORDERED: PT OWN MED DRAWER 7, Y5N ONE ×4 (14:49→17:47)
[2019-10-03] MEDS ORDERED: SODIUM CHLORIDE FOR INHALATION 3 ML VIAL.NEB IH STA (16:43)
[2019-10-03 17:36] LABS: BLOOD UREA NITROGEN 67.6 mg/dL (7-18); CALCIUM 9.1 mg/dL (8.5-10.1); CREATININE 1.4 mg/dL (0.55-1.3); POTASSIUM 3.5 mmol/L (3.5-5.1)
[2019-10-03] MEDS: MELATONIN 5 MG TABLETS PO SCH ×2 (20:54→21:05)
[2019-10-03] MEDS: buPROPion HCL 75 MG TABLET PO SCH ×2 (20:54→21:06)
[2019-10-03] MEDS: CHLORHEXIDINE GLUCONATE 4% CLEANSER FOR DECOLONIZATION TP SCH (21:07)
[2019-10-04] MEDS ORDERED: PT OWN MED DRAWER 7, Y5N ONE ×4 (01:06→20:33)
[2019-10-04] MEDS: VERAPAMIL HCL 5 MG/2 ML VIAL IVPUSH PRN (01:09)
[2019-10-04] MEDS: hydrALAZINE HCL 50 MG TABLET (FP) PO SCH ×5 (05:59→21:47)
[2019-10-04] MEDS: DEXTROSE 5%-WATER - 1,000 ML IV SCH (06:00)
[2019-10-04] MEDS: VERAPAMIL HCL 80 MG TABLET NGT SCH ×5 (06:00→21:48)
[2019-10-04] MEDS: GABAPENTIN 250 MG/5 ML ORAL SOLUTION, 470 ML BOTTLE PO SCH ×3 (06:00→21:54)
[2019-10-04] MEDS ORDERED: METOPROLOL TARTRATE 50 MG TABLET (FP) PO SCH ×2 (06:00→22:00)
[2019-10-04] MEDS: INSULIN SLIDING SCALE (NOVOLOG) 1 VIAL SQ SCH ×4 (06:04→21:52)
[2019-10-04 06:57] LABS: HEMOGLOBIN 13.3 GM/dL (10.7-15.3); MCH 29.4 pg (25.7-33.7); MCHC 32.3 g/dl (32.0-36.0); MEAN CELL VOLUME 90.9 fl (80-96); MEAN PLT VOLUME 11.9 fl (7.5-11.1); PLATELET COUNT 85 K/MM3 (134-434); RBC 4.51 M/mm3 (3.60-5.2); RDW 15.3 % (11.6-15.6); WHITE BLOOD COUNT 11.4 K/mm3 (4.0-10.0)
[2019-10-04 07:01] LABS: ALLENS TEST POSITIVE
[2019-10-04 07:10] LABS: ARTERIAL BLD GAS O2 SATURATION 92.3 % (95-98); ARTERIAL BLOOD GAS BASE EXCESS 11.2 meq/l (-2-2); ARTERIAL BLOOD GAS PCO2 48.9 mmHg (35-45); ARTERIAL BLOOD GAS PO2 66.4 mmHg (80-100); ARTERIAL BLOOD GAS pH 7.48 (7.35-7.45)
[2019-10-04 07:40] LABS: CALCIUM 9.1 mg/dL (8.5-10.1); CREATININE 1.4 mg/dL (0.55-1.3); MAGNESIUM 2.7 mg/dL (1.8-2.4); PHOSPHOROUS 3.5 mg/dL (2.5-4.9); POTASSIUM 3.4 mmol/L (3.5-5.1)
[2019-10-04] MEDS: LEVALBUTEROL HCL 0.63 MG/3 ML VIAL.NEB. IH SCH ×3 (08:00→20:50)
--- NOTE | 2019-10-04 09:37 | PN ---
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, Physician - Current Medication List Current Medications: Active Medications Acetaminophen (Tylenol Oral Solution -) 1,000 mg PO Q6H PRN PRN Reason: FEVER Last Admin: 09/30/19 00:42 Dose: 1,000 mg Acetaminophen (Tylenol -) 325 mg PO Q4H PRN PRN Reason: PAIN SCALE 1-5 Stop: 10/05/19 11:03 Last Admin: 10/02/19 16:47 Dose: 325 mg Apixaban (Eliquis -) 2.5 mg PO BID [facility] Last Admin: 10/03/19 21:05 Dose: 2.5 mg Budesonide/Formoterol Fumarate (Symbicort 80/4.5mcg -) 2 puff IH BID [facility] Last Admin: 10/03/19 21:08 Dose: 2 puff Bupropion HCl (Wellbutrin Xl -) 300 mg PO DAILY [facility] Chlorhexidine Gluconate (Hibiclens For Decolonization -) 1 applic TP HS [facility] Last Admin: 10/03/19 21:07 Dose: 1 applic Chlorhexidine Gluconate (Peridex -) 15 ml MM BID [facility] Last Admin: 10/03/19 21:06 Dose: Not Given Digoxin (Lanoxin -) 0.125 mg PO DAILY [facility] Last Admin: 10/03/19 09:38 Dose: 0.125 mg Ergocalciferol (Drisdol -) 50,000 unit PO We@1000 [facility] Last Admin: 09/29/19 10:58 Dose: Not Given Gabapentin (Neurontin Oral Liquid -) 300 mg PO TID [facility] Last Admin: 10/04/19 06:00 Dose: 300 mg Hydralazine HCl (Apresoline -) 50 mg PO TID [facility] Last Admin: 10/04/19 05:59 Dose: 50 mg Hydralazine HCl (Apresoline Injection -) 10 mg IVPUSH Q6H PRN PRN Reason: HYPERTENSION Last Admin: 10/03/19 18:06 Dose: 10 mg Famotidine/Sodium Chloride (Pepcid 20 Mg Premixed Ivpb -) 20 mg in 50 mls @ 100 mls/hr IVPB BID [facility] Last Admin: 10/03/19 21:06 Dose: 100 mls/hr Dextrose (D5w -) 1,000 mls @ 75 mls/hr IV ASDIR [facility] Last Admin: 10/04/19 06:00 Dose: 75 mls/hr Insulin Aspart (Novolog Vial Sliding Scale -) 1 vial SQ ACHS [facility]; Protocol Last Admin: 10/04/19 06:04 Dose: 2 units Levalbuterol HCl (Xopenex) 0.63 mg IH RTID [facility] Last Admin: 10/03/19 21:00 Dose: 0.63 mg Lisinopril (Prinivil) 5 mg PO DAILY [facility] Last Admin: 10/03/19 09:39 Dose: 5 mg Melatonin (Melatonin) 10 mg PO HS [facility] Last Admin: 10/03/19 21:05 Dose: 10 mg Methylprednisolone Sodium Succinate (Solu-Medrol -) 40 mg IVPUSH BID [facility] Last Admin: 10/03/19 21:07 Dose: 40 mg Metoprolol Tartrate (Lopressor -) 150 mg PO BID [facility] Oxycodone HCl (Roxicodone -) 5 mg PO Q4H PRN PRN Reason: PAIN SCALE 1-5 Last Admin: 10/03/19 03:41 Dose: 5 mg Verapamil HCl (Calan -) 80 mg NGT TID [facility] Last Admin: 10/04/19 06:00 Dose: 80 mg Verapamil HCl (Calan Injection -) 5 mg IVPUSH Q6H PRN PRN Reason: TACHYCARDIA Last Admin: 10/04/19 01:09 Dose: 5 mg - Objective Vital Signs: Vital Signs Temperature 98.2 F 10/04/19 06:00 Pulse Rate 88 10/04/19 08:00 Respiratory Rate 22 H 10/04/19 08:00 Blood Pressure 172/98 H 10/04/19 08:00 O2 Sat by Pulse Oximetry (%) 95 10/04/19 09:18 Cardiovascular: Yes: Tachycardia, Pulse Irregular, S1, S2 Respiratory: Yes: Diminished, On Nasal O2, Rhonchi Gastrointestinal: Yes: Normal Bowel Sounds, Soft Labs: CBC, BMP 10/04/19 06:15 10/04/19 06:15 INR, PTT INR 1.16 (0.83-1.09) H 09/30/19 06:18 Fibrinogen 247.0 mg/dL (238-498) 09/30/19 06:18 Assessment/Plan - Problems (1) Influenza A Assessment/Plan: -Seen by ID -Finished Tamiflu Problems reviewed: Yes Code(s): J10.1 - FLU DUE TO OTH IDENT INFLUENZA VIRUS W OTH RESP MANIFEST (2) Acute respiratory failure Assessment/Plan: -Extubated -Pulmonary on board -Bronchodilators -ID on board -IV medrol Problems reviewed: Yes Code(s): J96.00 - ACUTE RESPIRATORY FAILURE, UNSP W HYPOXIA OR HYPERCAPNIA (3) Acute exacerbation of COPD with asthma Problems reviewed: Yes Code(s): J44.1 - CHRONIC OBSTRUCTIVE PULMONARY DISEASE W (ACUTE) EXACERBATION; J45.901 - UNSPECIFIED ASTHMA WITH (ACUTE) EXACERBATION (4) Pneumonia Assessment/Plan: -Pulmonary on board -Bronchodilators -IV abx per iD -ID on board -IV medrol Problems reviewed: Yes Code(s): J18.9 - PNEUMONIA, UNSPECIFIED ORGANISM Qualifiers: Pneumonia type: due to unspecified organism Laterality: unspecified laterality Lung location: unspecified part of lung Qualified Code(s): J18.9 - Pneumonia, unspecified organism (5) JOSEPH (acute kidney injury) Assessment/Plan: -Nephrology consult -monitor trend Problems reviewed: Yes Code(s): N17.9 - ACUTE KIDNEY FAILURE, UNSPECIFIED (6) Afib Assessment/Plan: -Seen by cardiology -On [id number]-pipqso-77 qid -Continue eliquis -Will improve as pt improves metabolically Problems reviewed: Yes Code(s): I48.91 - UNSPECIFIED ATRIAL FIBRILLATION Qualifiers: Atrial fibrillation type: unspecified Qualified Code(s): I48.91 - Unspecified atrial fibrillation (7) Assessment/Plan: -Seen by cardiology -Adjust meds -Hydralazine 50 qid
[2019-10-04] MEDS: APIXABAN 2.5 MG TABLET PO SCH ×2 (09:53→21:47)
[2019-10-04] MEDS: METOPROLOL TARTRATE 50 MG TABLET (FP) PO SCH ×2 (09:56→21:47)
[2019-10-04] MEDS: DIGOXIN 0.125 MG TABLET (FP) PO SCH (09:57)
[2019-10-04] MEDS: methylPREDNISolone NA SUCC 40 MG/1 ML VIAL IVPUSH SCH ×2 (09:57→21:49)
[2019-10-04] MEDS: LISINOPRIL 5 MG TABLET (FP) PO SCH (09:57)
[2019-10-04] MEDS: FAMOTIDINE 20 MG/50 ML IVPB 20 MG/50 ML MG IVPB SCH ×2 (09:57→21:47)
[2019-10-04] MEDS: BUDESONIDE/FORMETEROL FUMARATE 80/4.5 mcg INHALER IH SCH ×2 (10:00→21:49)
--- NOTE | 2019-10-04 11:34 | PN ---
Teaching Attending Note Name of Resident: Kacey Watson ATTENDING PHYSICIAN STATEMENT I saw and evaluated the patient. I reviewed the resident's note and discussed the case with the resident. I agree with the resident's findings and plan as documented. SUBJECTIVE: Patient was seen and examined in the ICU. Remains extubated on HFOT: 50L / 50% FiO2. No pressors. Denies CP or SOB. Rapid AFib. Oral meds being titrated. Intake & Output 10/01/19 10/02/19 10/03/19 10/04/19 23:59 23:59 23:59 23:59 Intake Total 3270 1284 1390 979 Output Total 800 2850 2000 700 Balance 6983 -1566 -610 279 Weight 140 lb 1 oz 140 lb 11.2 oz 135 lb 11.2 oz 130 lb 14.4 oz Last Vital Signs Temp Pulse Resp BP Pulse Ox 98.3 F 124 H 20 153/101 H 95 10/04/19 10:00 10/04/19 10:00 10/04/19 10:00 10/04/19 10:00 10/04/19 09:18 Active Medications Acetaminophen (Tylenol Oral Solution -) 1,000 mg PO Q6H PRN PRN Reason: FEVER Last Admin: 09/30/19 00:42 Dose: 1,000 mg Acetaminophen (Tylenol -) 325 mg PO Q4H PRN PRN Reason: PAIN SCALE 1-5 Stop: 10/05/19 11:03 Last Admin: 10/02/19 16:47 Dose: 325 mg Apixaban (Eliquis -) 2.5 mg PO BID [facility] Last Admin: 10/04/19 09:53 Dose: 2.5 mg Budesonide/Formoterol Fumarate (Symbicort 80/4.5mcg -) 2 puff IH BID [facility] Last Admin: 10/03/19 21:08 Dose: 2 puff Bupropion HCl (Wellbutrin Xl -) 300 mg PO DAILY [facility] Last Admin: 10/04/19 09:53 Dose: 300 mg Chlorhexidine Gluconate (Hibiclens For Decolonization -) 1 applic TP HS [facility] Last Admin: 10/03/19 21:07 Dose: 1 applic Chlorhexidine Gluconate (Peridex -) 15 ml MM BID [facility] Last Admin: 10/03/19 21:06 Dose: Not Given Digoxin (Lanoxin -) 0.125 mg PO DAILY [facility] Last Admin: 10/04/19 09:57 Dose: 0.125 mg Ergocalciferol (Drisdol -) 50,000 unit PO We@1000 [facility] Last Admin: 09/29/19 10:58 Dose: Not Given Gabapentin (Neurontin Oral Liquid -) 300 mg PO TID [facility] Last Admin: 10/04/19 06:00 Dose: 300 mg Hydralazine HCl (Apresoline Injection -) 10 mg IVPUSH Q6H PRN PRN Reason: HYPERTENSION Last Admin: 10/03/19 18:06 Dose: 10 mg Hydralazine HCl (Apresoline -) 50 mg PO QID [facility] Last Admin: 10/04/19 09:57 Dose: 50 mg Famotidine/Sodium Chloride (Pepcid 20 Mg Premixed Ivpb -) 20 mg in 50 mls @ 100 mls/hr IVPB BID [facility] Last Admin: 10/04/19 09:57 Dose: 100 mls/hr Dextrose (D5w -) 1,000 mls @ 75 mls/hr IV ASDIR [facility] Last Admin: 10/04/19 06:00 Dose: 75 mls/hr Insulin Aspart (Novolog Vial Sliding Scale -) 1 vial SQ ACHS [facility]; Protocol Last Admin: 10/04/19 06:04 Dose: 2 units Levalbuterol HCl (Xopenex) 0.63 mg IH RTID [facility] Last Admin: 10/04/19 08:00 Dose: 0.63 mg Lisinopril (Prinivil) 5 mg PO DAILY [facility] Last Admin: 10/04/19 09:57 Dose: 5 mg Melatonin (Melatonin) 10 mg PO HS [facility] Last Admin: 10/03/19 21:05 Dose: 10 mg Methylprednisolone Sodium Succinate (Solu-Medrol -) 40 mg IVPUSH BID [facility] Last Admin: 10/04/19 09:57 Dose: 40 mg Metoprolol Tartrate (Lopressor -) 150 mg PO BID [facility] Last Admin: 10/04/19 09:56 Dose: 150 mg Oxycodone HCl (Roxicodone -) 5 mg PO Q4H PRN PRN Reason: PAIN SCALE 1-5 Last Admin: 10/03/19 03:41 Dose: 5 mg Verapamil HCl (Calan Injection -) 5 mg IVPUSH Q6H PRN PRN Reason: TACHYCARDIA Last Admin: 10/04/19 01:09 Dose: 5 mg Verapamil HCl (Calan -) 80 mg NGT QID [facility] Gen: Awake and alert, on HFOT HEENT: Dry MM Heart: Rapid AFib Lung: diminished bases, clear anterior Abd: soft, nontender Ext: + edema Neuro: Awake and alert, non-focal Laboratory Results - last 24 hr 10/03/19 10/03/19 10/03/19 16:41 16:55 16:55 WBC RBC Hgb Hct MCV MCH MCHC RDW Plt Count MPV Anticoagulation Therapy Puncture Site ABG pH ABG pCO2 at Pt Temp ABG pO2 at Pt Temp ABG HCO3 ABG O2 Sat (Measured) ABG O2 Content ABG Base Excess Randy Test O2 Delivery Device Oxygen Flow Rate Vent Mode Vent Rate Mechanical Rate Pressure Support Vent Sodium 149 H Potassium 3.5 Chloride 108 H Carbon Dioxide 34 H Anion Gap 7 L BUN 67.6 H Creatinine 1.4 H Est GFR (CKD-EPI)AfAm 46.88 Est GFR (CKD-EPI)NonAf 40.45 POC Glucometer 214 Random Glucose 220 H Calcium 9.1 Phosphorus Magnesium Digoxin 1.22 10/03/19 10/04/19 10/04/19 21:04 06:03 06:15 WBC RBC Hgb Hct MCV MCH MCHC RDW Plt Count MPV Anticoagulation Therapy Puncture Site ABG pH ABG pCO2 at Pt Temp ABG pO2 at Pt Temp ABG HCO3 ABG O2 Sat (Measured) ABG O2 Content ABG Base Excess Randy Test O2 Delivery Device Oxygen Flow Rate Vent Mode Vent Rate Mechanical Rate Pressure Support Vent Sodium Potassium Chloride Carbon Dioxide Anion Gap BUN Creatinine Est GFR (CKD-EPI)AfAm Est GFR (CKD-EPI)NonAf POC Glucometer 177 200 Random Glucose Calcium Phosphorus Magnesium Digoxin 1.20 10/04/19 10/04/19 10/04/19 06:15 06:15 06:50 WBC 11.4 H RBC 4.51 Hgb 13.3 Hct 41.0 MCV 90.9 MCH 29.4 MCHC 32.3 RDW 15.3 Plt Count 85 L MPV 11.9 H Anticoagulation Therapy No Result Required. Puncture Site Right brachial ABG pH 7.48 H ABG pCO2 at Pt Temp 48.9 H ABG pO2 at Pt Temp 66.4 L ABG HCO3 36.2 H ABG O2 Sat (Measured) 92.3 L ABG O2 Content 16.3 ABG Base Excess 11.2 H Randy Test Positive O2 Delivery Device Hfnc Oxygen Flow Rate 50l/45% Vent Mode No Result Required. Vent Rate No Result Required. Mechanical Rate No Result Required. Pressure Support Vent No Result Required. Sodium 147 H Potassium 3.4 L Chloride 108 H Carbon Dioxide 34 H Anion Gap 5 L BUN 65.0 H Creatinine 1.4 H Est GFR (CKD-EPI)AfAm 46.88 Est GFR (CKD-EPI)NonAf 40.45 POC Glucometer Random Glucose 211 H Calcium 9.1 Phosphorus 3.5 Magnesium 2.7 H Digoxin ASSESSMENT AND PLAN: Acute on Chronic Hypoxic and Hypercapneic Respiratory Failure Influenza A Pneumonia Acute COPD Exacerbation Atrial Fibrillation with RVR LV Diastolic Dysfunction HTN DM CKD Obstructive Sleep Apnea - Wean HFOT - Completed tamiflu - Wean Medrol - Inhaled bronchodilators standing and PRN - O2 to keep SpO2 >90% - Rate control - Continue anticoagulation - PO as tolerated - Free water for hypernatremia - DVT/GI prophylaxis Dr Montiel
--- NOTE | 2019-10-04 11:42 | PN ---
Physical Exam: SUBJECTIVE: Patient seen and examined. Extubated yesterday to high flow 50L/ 50% . OBJECTIVE: Vital Signs Period Temp Pulse Resp BP Sys/Salgado Pulse Ox Last 24 Hr 97.9 F-98.9 F 86-147 20-31 149-204/76-140 95-98 GENERAL: The patient is awake, alert, and fully oriented, in no acute distress. HEENT: NCAT MMM clear sclera LUNGS: Scattered rhonchi upper lung galan HEART: Tachycardic, S1, S2 without murmur, rub or gallop. ABDOMEN: Soft, nontender, nondistended, normoactive bowel sounds EXTREMITIES: 2+ pulses, warm, well-perfused, no edema. SKIN: Warm, dry Laboratory Results - last 24 hr 10/03/19 10/03/19 10/03/19 16:41 16:55 16:55 WBC RBC Hgb Hct MCV MCH MCHC RDW Plt Count MPV Anticoagulation Therapy Puncture Site ABG pH ABG pCO2 at Pt Temp ABG pO2 at Pt Temp ABG HCO3 ABG O2 Sat (Measured) ABG O2 Content ABG Base Excess Randy Test O2 Delivery Device Oxygen Flow Rate Vent Mode Vent Rate Mechanical Rate Pressure Support Vent Sodium 149 H Potassium 3.5 Chloride 108 H Carbon Dioxide 34 H Anion Gap 7 L BUN 67.6 H Creatinine 1.4 H Est GFR (CKD-EPI)AfAm 46.88 Est GFR (CKD-EPI)NonAf 40.45 POC Glucometer 214 Random Glucose 220 H Calcium 9.1 Phosphorus Magnesium Digoxin 1.22 10/03/19 10/04/19 10/04/19 21:04 06:03 06:15 WBC RBC Hgb Hct MCV MCH MCHC RDW Plt Count MPV Anticoagulation Therapy Puncture Site ABG pH ABG pCO2 at Pt Temp ABG pO2 at Pt Temp ABG HCO3 ABG O2 Sat (Measured) ABG O2 Content ABG Base Excess Randy Test O2 Delivery Device Oxygen Flow Rate Vent Mode Vent Rate Mechanical Rate Pressure Support Vent Sodium Potassium Chloride Carbon Dioxide Anion Gap BUN Creatinine Est GFR (CKD-EPI)AfAm Est GFR (CKD-EPI)NonAf POC Glucometer 177 200 Random Glucose Calcium Phosphorus Magnesium Digoxin 1.20 10/04/19 10/04/19 10/04/19 06:15 06:15 06:50 WBC 11.4 H RBC 4.51 Hgb 13.3 Hct 41.0 MCV 90.9 MCH 29.4 MCHC 32.3 RDW 15.3 Plt Count 85 L MPV 11.9 H Anticoagulation Therapy No Result Required. Puncture Site Right brachial ABG pH 7.48 H ABG pCO2 at Pt Temp 48.9 H ABG pO2 at Pt Temp 66.4 L ABG HCO3 36.2 H ABG O2 Sat (Measured) 92.3 L ABG O2 Content 16.3 ABG Base Excess 11.2 H Randy Test Positive O2 Delivery Device Hfnc Oxygen Flow Rate 50l/45% Vent Mode No Result Required. Vent Rate No Result Required. Mechanical Rate No Result Required. Pressure Support Vent No Result Required. Sodium 147 H Potassium 3.4 L Chloride 108 H Carbon Dioxide 34 H Anion Gap 5 L BUN 65.0 H Creatinine 1.4 H Est GFR (CKD-EPI)AfAm 46.88 Est GFR (CKD-EPI)NonAf 40.45 POC Glucometer Random Glucose 211 H Calcium 9.1 Phosphorus 3.5 Magnesium 2.7 H Digoxin Active Medications Generic Name Dose Route Start Last Admin Trade Name Freq PRN Reason Stop Dose Admin Acetaminophen 1,000 mg 09/28/19 16:51 09/30/19 00:42 Tylenol Oral Solution - PO 1,000 mg Q6H PRN Administration FEVER Acetaminophen 325 mg 10/02/19 11:04 10/02/19 16:47 Tylenol - PO 10/05/19 11:03 325 mg Q4H PRN Administration PAIN SCALE 1-5 Apixaban 2.5 mg 09/25/19 10:00 10/04/19 09:53 Eliquis - PO 2.5 mg BID [facility] Administration Budesonide/Formoterol Fumarate 2 puff 09/25/19 10:00 10/03/19 21:08 Symbicort 80/4.5mcg - IH 2 puff BID [facility] Administration Bupropion HCl 300 mg 10/04/19 10:00 10/04/19 09:53 Wellbutrin Xl - PO 300 mg DAILY [facility] Administration Chlorhexidine Gluconate 1 applic 09/24/19 22:00 10/03/19 21:07 Hibiclens For Decolonization - TP 1 applic HS [facility] Administration Chlorhexidine Gluconate 15 ml 09/29/19 22:00 10/03/19 21:06 Peridex - MM Not Given BID [facility] Digoxin 0.125 mg 09/25/19 12:00 10/04/19 09:57 Lanoxin - PO 0.125 mg DAILY [facility] Administration Ergocalciferol 50,000 unit 09/29/19 10:00 09/29/19 10:58 Drisdol - PO Not Given We@1000 [facility] Gabapentin 300 mg 09/25/19 14:00 10/04/19 06:00 Neurontin Oral Liquid - PO 300 mg TID [facility] Administration Hydralazine HCl 10 mg 09/30/19 11:28 10/03/19 18:06 Apresoline Injection - IVPUSH 10 mg Q6H PRN Administration HYPERTENSION Hydralazine HCl 50 mg 10/04/19 10:00 10/04/19 09:57 Apresoline - PO 50 mg QID [facility] Administration Famotidine/Sodium Chloride 20 mg in 50 mls @ 100 mls/hr 09/30/19 22:00 09:57 Pepcid 20 Mg Premixed Ivpb - IVPB 100 mls/hr BID [facility] Administration Dextrose 1,000 mls @ 75 mls/hr 10/03/19 07:00 10/04/19 06:00 D5w - IV 75 mls/hr ASDIR [facility] Administration Insulin Aspart 1 vial 09/25/19 16:30 10/04/19 06:04 Novolog Vial Sliding Scale - SQ 2 units ACHS [facility] Administration Protocol Levalbuterol HCl 0.63 mg 09/25/19 14:00 10/04/19 08:00 Xopenex IH 0.63 mg RTID [facility] Administration Lisinopril 5 mg 09/30/19 10:00 10/04/19 09:57 Prinivil PO 5 mg DAILY [facility] Administration Melatonin 10 mg 10/03/19 19:15 10/03/19 21:05 Melatonin PO 10 mg HS [facility] Administration Methylprednisolone Sodium Succinate 40 mg 09/30/19 10:00 10/04/19 09:57 Solu-Medrol - IVPUSH 40 mg BID [facility] Administration Metoprolol Tartrate 150 mg 10/04/19 10:00 10/04/19 09:56 Lopressor - PO 150 mg BID [facility] Administration Oxycodone HCl 5 mg 10/02/19 11:04 10/03/19 03:41 Roxicodone - PO 5 mg Q4H PRN Administration PAIN SCALE 1-5 Verapamil HCl 5 mg 09/30/19 16:34 10/04/19 01:09 Calan Injection - IVPUSH 5 mg Q6H PRN Administration TACHYCARDIA Verapamil HCl 80 mg 10/04/19 10:00 Calan - NGT QID [facility] ASSESSMENT/PLAN: 59 y.o. F PMH A-Fib (on Eliquis), CHF, HTN, CKD IIIb, COPD/Asthma (requiring intubation in past), prior PE, pulmonary fibrosis, TANISHA, DM, presents with SOB and admitted to ICU for acute hypoxic hypercapnic respiratory failure s/p intubation, now extubated. #HAIR BALER -c/w gabapentin 300mg TID home med -mentating well #CV -remains tachycardic -lopressor incr to 150 BID (from 100BID), 80mg TID verapamil incr to QID, prn verapamil 5mg IV push q6h, hydralazine 50mg QID, prn hydralazine 10mg IV q6h, digoxin 0.125mg daily -dig level within therapeutic range -hx a-fib, on eliquis -hx CHF: holding lasix -cardiology (Dr. Borden) following #Pulm -extubated 10/03/2019 -limit b-agonists d/t tachycardia episodes -wean steroids -Maintain O2 sat >90% #Renal -Hx CKD-- trend renal labs -holding lasix -started D5W @75cc/hr for hypernatremia to 147 -Renal following #ID -afebrile -Influenza A + on admission-- s/p 7 days droplet precautions -blood & urine cx NGTD, legionella/ stepg ag neg -s/p 7 day course cefepime #Heme/onc -chronic thrombocytopenia, continue to monitor plt #Endo -Hx DM -BGMs ACHS -ISS #FENLTD -D5W @75cc/hr -trend lytes replete prn -trial of chopped diet -peripheral lines -montes in place since 09/30/2019 -Extubated 10/03/2019 #PPX -Eliquis 2.5mg BID -Pepcid 20mg IV BID Visit type - Emergency Visit Emergency Visit: No - New Patient This patient is new to me today: No - Critical Care Critical Care patient: Yes Total Critical Care Time (in minutes): 45 Critical Care Statement: The care of this patient involved high complexity decision making to prevent further life threatening deterioration of the patient 's condition and/or to evaluate & treat vital organ system(s) failure or risk of failure. ATTENDING PHYSICIAN STATEMENT I saw and evaluated the patient. I reviewed the resident's note and discussed the case with the resident. I agree with the resident's findings and plan as documented. SUBJECTIVE: OBJECTIVE: ASSESSMENT AND PLAN:
--- NOTE | 2019-10-04 11:53 | CONSULT ---
Admitting History and Physical - Primary Care Physician PCP: Maite Carlin - Admission History of Present Illness: 59 y/o woman with a pmhx of Afib (on Eliquis), CHF, HTN, Asthma (intubated in the past), COPD, prior PE, DM, Pulmonary Fibrosis, Sleep Apnea, Renal Insufficiency, OA. Admitted to ICU for Respiratory Failure with Hypercapnia, Pneumonia, Influenza, Acute COPD Exacerbation, Afib with RVR Acute on Chronic Hypoxic and Hypercapneic Respiratory Failure Influenza A Pneumonia Acute COPD Exacerbation Atrial Fibrillation with RVR LV Diastolic Dysfunction HTN DM CKD Obstructive Sleep Apnea Intubated 09/24 -extubated 10/02 Chopped diet/thin liquid ordered 10/02 Selected Entries 10/02/19 10/02/19 10/03/19 09:05 10:00 02:00 Breakfast Lunch NPO NPO Temperature 98.7 F 10/03/19 10/03/19 10/03/19 07:00 09:00 13:00 Breakfast Lunch Temperature 98.6 F 98.2 F 98.4 F 10/03/19 10/03/19 10/03/19 13:27 16:00 18:00 Breakfast 50% Lunch 50% Temperature 98.6 F 98.9 F 10/03/19 10/04/19 10/04/19 22:00 02:00 06:00 Breakfast Lunch Temperature 98.3 F 97.9 F 98.2 F 10/04/19 10:00 Breakfast Lunch Temperature 98.3 F Laboratory Tests 09/30/19 10/01/19 10/02/19 06:18 05:20 06:20 WBC 6.9 7.9 9.9 10/03/19 10/04/19 05:50 06:15 WBC 11.7 H 11.4 H Selected Entries 10/04/19 10/04/19 10/04/19 00:00 00:03 01:00 Respiratory 26 H 26 H 23 H Rate 10/04/19 10/04/19 10/04/19 01:01 01:46 02:00 Respiratory 24 H 27 H 28 H Rate 10/04/19 10/04/19 10/04/19 03:00 04:00 05:00 Respiratory 27 H 27 H 31 H Rate 10/04/19 10/04/19 10/04/19 06:00 08:00 10:00 Respiratory 30 H 22 H 20 Rate 10/04/19 12:00 Respiratory 26 H Rate I am seeing pt for the first time. She is reported to be more lethargic put back on high flow. Increased effort and rate of respiration. Saturation maintained the 90s. Needed frequent re-arousable.Thinks she is home. Pt's reports lack of appetite since 2 weeks ago. History Source: Family Member, Medical Record Limitations to Obtaining History: Clinical Condition - Past Medical History BIBLE READER: Yes: Other (Sciatica) Cardiovascular: Yes: AFIB, CHF, HTN Pulmonary: Yes: Asthma ((prior intubations)), COPD, O2 Dependent, Pulmonary Embolus (in the past), Pulmonary Fibrosis (history) Renal/: Yes: Renal Inusuff (CKD) Heme/Onc: Yes: Anemia Musculoskeletal: Yes: Osteoarthritis Endocrine: Yes: Diabetes Mellitus, Hypothyroidism - Past Surgical History Past Surgical History: Yes: - Smoking History Smoking history: Current every day smoker Have you smoked in the past 12 months: No Aproximately how many cigarettes per day: 2 - Alcohol/Substance Use Hx Alcohol Use: No History of Substance Use: reports: None - Social History ADL: Independent (with Rollator) History of Recent Travel: No History - Admission Reason For Visit: HYPERCAPNIA,COPD,ACUTE EXACERBATION OF COPD - Diagnostics X-ray: Report Reviewed (10/02 cxr noted) - General Mental Status: Able to Follow Commands, Intermittently Confused, Lethargic Ability to Follow Directions: Fair Head/Neck Control: Fair - Hearing Hearing: Functional Hearing: Normal Speech Evaluation - Communication Primary Language: AFGHAN Communication: Yes: Simple Responses - Speech Production Able to Make Needs Known: Yes: WNL Intelligibility: Yes: Mildly Impaired - Speech Characteristics Voice Loudness: Mildly Soft/Quiet Voice Phonatory-based Quality: Yes: Dysphonia (mild) Speech Clarity: < 100% Nasal Resonance: Normal Articulation: Yes: Imprecise (lethargic) Voice, Other Observations: Yes: Inadequate Breath Support - Language/Auditory Comprehension Follows: Yes: 1 Stage Simple Commands - Language/Verbal Expression Able to Communicate Wants and Needs: Yes: Mildly Impaired - Swallow Evaluation/Bedside Assessment Current Nutritional Intake: Thin Liquids, Other (chopped) Dentition: Yes: Adequate Laryngeal Movement: Able to Palpate Rate of Intake: WFL Labial Seal: WFL Oral Prep Time: WFL A-P Transit: WFL Pocketing: None Timing of Swallow: WFL Coughing/Throat Clear: Yes (brief cough after 3 sips of water. ) Recommendations - Speech Evaluation, Impression/Plan Impression: Brief cough after 3 sips of water. On high-mona. Increased RR, o2 saturation in 90's. Lethargic, repeatedly falls asleep.WBC 11.4. - Dysphagia Impressions/Plan Dysphagia Impressions: Risk of Aspiration, Ongoing Evaluation *Silent aspiration: cannot be R/O at bedside - Recommendations Diet Consistency: Other (defer po as lethargic, increased RR.WBC 11.4 Repeat CXR planned for tomorrow per PMD.. To reassess when improved.)
--- NOTE | 2019-10-04 12:53 | PN ---
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, Physician History of Present Illness: Pt seen and examined at bedside. She is now extubated. She is anxious. - Current Medication List Current Medications: Active Medications Acetaminophen (Tylenol Oral Solution -) 1,000 mg PO Q6H PRN PRN Reason: FEVER Last Admin: 09/30/19 00:42 Dose: 1,000 mg Acetaminophen (Tylenol -) 325 mg PO Q4H PRN PRN Reason: PAIN SCALE 1-5 Stop: 10/05/19 11:03 Last Admin: 10/02/19 16:47 Dose: 325 mg Apixaban (Eliquis -) 2.5 mg PO BID [facility] Last Admin: 10/04/19 09:53 Dose: 2.5 mg Budesonide/Formoterol Fumarate (Symbicort 80/4.5mcg -) 2 puff IH BID [facility] Last Admin: 10/03/19 21:08 Dose: 2 puff Bupropion HCl (Wellbutrin Xl -) 300 mg PO DAILY [facility] Last Admin: 10/04/19 09:53 Dose: 300 mg Chlorhexidine Gluconate (Hibiclens For Decolonization -) 1 applic TP HS [facility] Last Admin: 10/03/19 21:07 Dose: 1 applic Chlorhexidine Gluconate (Peridex -) 15 ml MM BID [facility] Last Admin: 10/03/19 21:06 Dose: Not Given Digoxin (Lanoxin -) 0.125 mg PO DAILY [facility] Last Admin: 10/04/19 09:57 Dose: 0.125 mg Ergocalciferol (Drisdol -) 50,000 unit PO We@1000 [facility] Last Admin: 09/29/19 10:58 Dose: Not Given Gabapentin (Neurontin Oral Liquid -) 300 mg PO TID [facility] Last Admin: 10/04/19 06:00 Dose: 300 mg Hydralazine HCl (Apresoline Injection -) 10 mg IVPUSH Q6H PRN PRN Reason: HYPERTENSION Last Admin: 10/03/19 18:06 Dose: 10 mg Hydralazine HCl (Apresoline -) 50 mg PO QID [facility] Last Admin: 10/04/19 09:57 Dose: 50 mg Famotidine/Sodium Chloride (Pepcid 20 Mg Premixed Ivpb -) 20 mg in 50 mls @ 100 mls/hr IVPB BID [facility] Last Admin: 10/04/19 09:57 Dose: 100 mls/hr Dextrose (D5w -) 1,000 mls @ 75 mls/hr IV ASDIR [facility] Last Admin: 10/04/19 06:00 Dose: 75 mls/hr Insulin Aspart (Novolog Vial Sliding Scale -) 1 vial SQ ACHS [facility]; Protocol Last Admin: 10/04/19 06:04 Dose: 2 units Levalbuterol HCl (Xopenex) 0.63 mg IH RTID [facility] Last Admin: 10/04/19 08:00 Dose: 0.63 mg Lisinopril (Prinivil) 5 mg PO DAILY [facility] Last Admin: 10/04/19 09:57 Dose: 5 mg Melatonin (Melatonin) 10 mg PO HS [facility] Last Admin: 10/03/19 21:05 Dose: 10 mg Methylprednisolone Sodium Succinate (Solu-Medrol -) 40 mg IVPUSH BID [facility] Last Admin: 10/04/19 09:57 Dose: 40 mg Metoprolol Tartrate (Lopressor -) 150 mg PO BID [facility] Last Admin: 10/04/19 09:56 Dose: 150 mg Oxycodone HCl (Roxicodone -) 5 mg PO Q4H PRN PRN Reason: PAIN SCALE 1-5 Last Admin: 10/03/19 03:41 Dose: 5 mg Verapamil HCl (Calan Injection -) 5 mg IVPUSH Q6H PRN PRN Reason: TACHYCARDIA Last Admin: 10/04/19 01:09 Dose: 5 mg Verapamil HCl (Calan -) 80 mg NGT QID [facility] - Objective Vital Signs: Vital Signs Temperature 98.3 F 10/04/19 10:00 Pulse Rate 94 H 10/04/19 12:00 Respiratory Rate 26 H 10/04/19 12:00 Blood Pressure 167/118 H 10/04/19 12:00 O2 Sat by Pulse Oximetry (%) 95 10/04/19 09:18 Constitutional: Yes: Calm Eyes: Yes: Conjunctiva Clear HENT: Yes: Atraumatic Cardiovascular: Yes: S1, S2 Respiratory: Yes: On Nasal O2, Rhonchi Gastrointestinal: Yes: Soft Genitourinary: Yes: Flores Present Musculoskeletal: Yes: WNL Edema: No Neurological: Yes: Oriented Psychiatric: Yes: Agitated Labs: CBC, BMP 10/04/19 06:15 10/04/19 06:15 INR, PTT INR 1.16 (0.83-1.09) H 09/30/19 06:18 Fibrinogen 247.0 mg/dL (238-498) 09/30/19 06:18 Assessment/Plan Current Medications Generic Name Dose Route Start Last Admin Trade Name Freq PRN Reason Stop Dose Admin Acetaminophen 1,000 mg 09/28/19 16:51 09/30/19 00:42 Tylenol Oral Solution - PO 1,000 mg Q6H PRN Administration FEVER Acetaminophen 325 mg 10/02/19 11:04 10/02/19 16:47 Tylenol - PO 10/05/19 11:03 325 mg Q4H PRN Administration PAIN SCALE 1-5 Apixaban 2.5 mg 09/25/19 10:00 10/04/19 09:53 Eliquis - PO 2.5 mg BID [facility] Administration Budesonide/Formoterol Fumarate 2 puff 09/25/19 10:00 10/03/19 21:08 Symbicort 80/4.5mcg - IH 2 puff BID [facility] Administration Bupropion HCl 300 mg 10/04/19 10:00 10/04/19 09:53 Wellbutrin Xl - PO 300 mg DAILY [facility] Administration Chlorhexidine Gluconate 1 applic 09/24/19 22:00 10/03/19 21:07 Hibiclens For Decolonization - TP 1 applic HS [facility] Administration Chlorhexidine Gluconate 15 ml 09/29/19 22:00 10/03/19 21:06 Peridex - MM Not Given BID [facility] Digoxin 0.125 mg 09/25/19 12:00 10/04/19 09:57 Lanoxin - PO 0.125 mg DAILY [facility] Administration Ergocalciferol 50,000 unit 09/29/19 10:00 09/29/19 10:58 Drisdol - PO Not Given We@1000 [facility] Gabapentin 300 mg 09/25/19 14:00 10/04/19 06:00 Neurontin Oral Liquid - PO 300 mg TID [facility] Administration Hydralazine HCl 10 mg 09/30/19 11:28 10/03/19 18:06 Apresoline Injection - IVPUSH 10 mg Q6H PRN Administration HYPERTENSION Hydralazine HCl 50 mg 10/04/19 10:00 10/04/19 09:57 Apresoline - PO 50 mg QID [facility] Administration Famotidine/Sodium Chloride 20 mg in 50 mls @ 100 mls/hr 09/30/19 22:00 09:57 Pepcid 20 Mg Premixed Ivpb - IVPB 100 mls/hr BID [facility] Administration Dextrose 1,000 mls @ 75 mls/hr 10/03/19 07:00 10/04/19 06:00 D5w - IV 75 mls/hr ASDIR [facility] Administration Insulin Aspart 1 vial 09/25/19 16:30 10/04/19 06:04 Novolog Vial Sliding Scale - SQ 2 units ACHS [facility] Administration Protocol Levalbuterol HCl 0.63 mg 09/25/19 14:00 10/04/19 08:00 Xopenex IH 0.63 mg RTID [facility] Administration Lisinopril 5 mg 09/30/19 10:00 10/04/19 09:57 Prinivil PO 5 mg DAILY [facility] Administration Melatonin 10 mg 10/03/19 19:15 10/03/19 21:05 Melatonin PO 10 mg HS [facility] Administration Methylprednisolone Sodium Succinate 40 mg 09/30/19 10:00 10/04/19 09:57 Solu-Medrol - IVPUSH 40 mg BID [facility] Administration Metoprolol Tartrate 150 mg 10/04/19 10:00 10/04/19 09:56 Lopressor - PO 150 mg BID [facility] Administration Oxycodone HCl 5 mg 10/02/19 11:04 10/03/19 03:41 Roxicodone - PO 5 mg Q4H PRN Administration PAIN SCALE 1-5 Verapamil HCl 5 mg 09/30/19 16:34 10/04/19 01:09 Calan Injection - IVPUSH 5 mg Q6H PRN Administration TACHYCARDIA Verapamil HCl 80 mg 10/04/19 10:00 Calan - NGT QID [facility] Impression 1. CKD 2. CHF 3. a-fib 4. lower ext edema 5. COPD 6. active smoker 7. non compliance 8. acute resp failure 9. influenza 10. hypernatremia Plan - replace potassium - pt extubated - monitor lytes - renal function is stable - avoid nsaids
[2019-10-04] MEDS ORDERED: POTASSIUM CHLORIDE ORAL LIQUID 20 MEQ/15 ML PO ONE (12:54)
--- NOTE | 2019-10-04 14:42 | PN ---
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, Physician Chief Complaint: Tele afib with VR's elevated History of Present Illness: 59 year old female with a PMH of hypertension, AFIB, CHF, COPD, DM, sleep apnea , and CKD. She presented to the ER with SOB, respiratory failure, was intubated due to hypercapneic respiratory failure now extubated. Found with influeza, HCAP and atrial fibrillation with RVR. Echocardiogram 04/26/19 showed normal LV funciton, moderate severe AI, moderate MR, severe TR. - Current Medication List Current Medications: Active Medications Acetaminophen (Tylenol Oral Solution -) 1,000 mg PO Q6H PRN PRN Reason: FEVER Last Admin: 09/30/19 00:42 Dose: 1,000 mg Acetaminophen (Tylenol -) 325 mg PO Q4H PRN PRN Reason: PAIN SCALE 1-5 Stop: 10/05/19 11:03 Last Admin: 10/02/19 16:47 Dose: 325 mg Apixaban (Eliquis -) 2.5 mg PO BID [facility] Last Admin: 10/04/19 09:53 Dose: 2.5 mg Budesonide/Formoterol Fumarate (Symbicort 80/4.5mcg -) 2 puff IH BID [facility] Last Admin: 10/03/19 21:08 Dose: 2 puff Bupropion HCl (Wellbutrin Xl -) 300 mg PO DAILY [facility] Last Admin: 10/04/19 09:53 Dose: 300 mg Chlorhexidine Gluconate (Hibiclens For Decolonization -) 1 applic TP HS [facility] Last Admin: 10/03/19 21:07 Dose: 1 applic Chlorhexidine Gluconate (Peridex -) 15 ml MM BID [facility] Last Admin: 10/03/19 21:06 Dose: Not Given Digoxin (Lanoxin -) 0.125 mg PO DAILY [facility] Last Admin: 10/04/19 09:57 Dose: 0.125 mg Ergocalciferol (Drisdol -) 50,000 unit PO We@1000 [facility] Last Admin: 09/29/19 10:58 Dose: Not Given Gabapentin (Neurontin Oral Liquid -) 300 mg PO TID [facility] Last Admin: 10/04/19 06:00 Dose: 300 mg Hydralazine HCl (Apresoline Injection -) 10 mg IVPUSH Q6H PRN PRN Reason: HYPERTENSION Last Admin: 10/03/19 18:06 Dose: 10 mg Hydralazine HCl (Apresoline -) 50 mg PO QID [facility] Last Admin: 10/04/19 09:57 Dose: 50 mg Famotidine/Sodium Chloride (Pepcid 20 Mg Premixed Ivpb -) 20 mg in 50 mls @ 100 mls/hr IVPB BID [facility] Last Admin: 10/04/19 09:57 Dose: 100 mls/hr Dextrose (D5w -) 1,000 mls @ 75 mls/hr IV ASDIR [facility] Last Admin: 10/04/19 06:00 Dose: 75 mls/hr Insulin Aspart (Novolog Vial Sliding Scale -) 1 vial SQ ACHS [facility]; Protocol Last Admin: 10/04/19 06:04 Dose: 2 units Levalbuterol HCl (Xopenex) 0.63 mg IH RTID [facility] Last Admin: 10/04/19 08:00 Dose: 0.63 mg Lisinopril (Prinivil) 5 mg PO DAILY [facility] Last Admin: 10/04/19 09:57 Dose: 5 mg Melatonin (Melatonin) 10 mg PO HS [facility] Last Admin: 10/03/19 21:05 Dose: 10 mg Methylprednisolone Sodium Succinate (Solu-Medrol -) 40 mg IVPUSH BID [facility] Last Admin: 10/04/19 09:57 Dose: 40 mg Metoprolol Tartrate (Lopressor -) 150 mg PO BID [facility] Last Admin: 10/04/19 09:56 Dose: 150 mg Oxycodone HCl (Roxicodone -) 5 mg PO Q4H PRN PRN Reason: PAIN SCALE 1-5 Last Admin: 10/03/19 03:41 Dose: 5 mg Verapamil HCl (Calan Injection -) 5 mg IVPUSH Q6H PRN PRN Reason: TACHYCARDIA Last Admin: 10/04/19 01:09 Dose: 5 mg Verapamil HCl (Calan -) 80 mg NGT QID [facility] - Objective Vital Signs: Vital Signs Temperature 98.3 F 10/04/19 10:00 Pulse Rate 94 H 10/04/19 12:00 Respiratory Rate 26 H 10/04/19 12:00 Blood Pressure 167/118 H 10/04/19 12:00 O2 Sat by Pulse Oximetry (%) 95 10/04/19 09:18 Constitutional: Yes: No Distress Neck: Yes: Supple Cardiovascular: Yes: Tachycardia, S1, S2 Respiratory: Yes: Rales Gastrointestinal: Yes: Soft Edema: No Labs: CBC, BMP 10/04/19 06:15 10/04/19 06:15 INR, PTT INR 1.16 (0.83-1.09) H 09/30/19 06:18 Fibrinogen 247.0 mg/dL (238-498) 09/30/19 06:18 Problem List - Problems (1) Afib Code(s): I48.91 - UNSPECIFIED ATRIAL FIBRILLATION Qualifiers: Atrial fibrillation type: unspecified Qualified Code(s): I48.91 - Unspecified atrial fibrillation Assessment/Plan 59 year old female with a PMH of hypertension, AFIB, CHF, COPD, DM, sleep apnea , and CKD. She presented to the ER with SOB, respiratory failure, was intubated due to hypercapneic respiratory failure. Found with influeza, HCAP and atrial fibrillation with RVR. Echocardiogram 04/26/19 showed normal LV funciton, moderate severe AI, moderate MR, severe TR. Atrial Fibrillation -rates elevated. Metoprolol was increased today to 150mg q12. Would continue current verapamil dose and digoxin. Will further increase metoprolol if needed. On Apixaban 2.5 mg PO Q12h for AC Monitor BP as adjust afib meds. On hydralazine and lisinopril but can increase if BP remains elevated despite adjusting afib rate control meds and when not agitated.
[2019-10-04] MEDS: CHLORHEXIDINE GLUCONATE 0.12% 15ML CUP MM SCH ×2 (17:03→21:39)
[2019-10-04 20:43] LABS: ARTERIAL BLD GAS O2 SATURATION 82.5 % (95-98); ARTERIAL BLOOD GAS BASE EXCESS 9.9 meq/l (-2-2); ARTERIAL BLOOD GAS PCO2 45.7 mmHg (35-45); ARTERIAL BLOOD GAS pH 7.49 (7.35-7.45)
[2019-10-04 20:52] LABS: ARTERIAL BLOOD GAS PO2 < 49 mmHg (80-100)
[2019-10-04] MEDS: CHLORHEXIDINE GLUCONATE 4% CLEANSER FOR DECOLONIZATION TP SCH (21:48)
[2019-10-04] MEDS: MELATONIN 5 MG TABLETS PO SCH ×2 (21:48→23:00)
[2019-10-04 22:42] LABS: ARTERIAL BLOOD GAS BASE EXCESS 11.8 meq/l (-2-2); ARTERIAL BLOOD GAS PCO2 45.1 mmHg (35-45); ARTERIAL BLOOD GAS pH 7.52 (7.35-7.45)
[2019-10-04 22:44] LABS: ALLENS TEST POSITIVE
[2019-10-04] MEDS: oxyCODONE HCL 5 MG TABLET PO PRN (23:00)
[2019-10-04 23:15] LABS: ARTERIAL BLOOD GAS PO2 < 49 mmHg (80-100)
[2019-10-05] MEDS: VERAPAMIL HCL 5 MG/2 ML VIAL IVPUSH PRN (04:23)
[2019-10-05] MEDS: GABAPENTIN 250 MG/5 ML ORAL SOLUTION, 470 ML BOTTLE PO SCH ×3 (06:02→22:12)
[2019-10-05 06:21] LABS: ARTERIAL BLD GAS O2 SATURATION 99.2 % (95-98); ARTERIAL BLOOD GAS BASE EXCESS 9.5 meq/l (-2-2); ARTERIAL BLOOD GAS PCO2 51.7 mmHg (35-45); ARTERIAL BLOOD GAS PO2 253 mmHg (80-100); ARTERIAL BLOOD GAS pH 7.44 (7.35-7.45)
[2019-10-05 06:25] LABS: HEMATOCRIT 38.9 % (32.4-45.2); HEMOGLOBIN 12.4 GM/dL (10.7-15.3); MEAN CELL VOLUME 90.6 fl (80-96); PLATELET COUNT 101 K/MM3 (134-434); RBC 4.29 M/mm3 (3.60-5.2); RDW 15.4 % (11.6-15.6); WHITE BLOOD COUNT 11.3 K/mm3 (4.0-10.0)
[2019-10-05 06:27] LABS: ALBUMIN 3.2 g/dl (3.4-5.0); BILIRUBIN,TOTAL 1.9 mg/dL (0.2-1); BLOOD UREA NITROGEN 57.6 mg/dL (7-18); CALCIUM 9.1 mg/dL (8.5-10.1); CREATININE 1.3 mg/dL (0.55-1.3); MAGNESIUM 2.8 mg/dL (1.8-2.4); TOT PROT 6.7 g/dl (6.4-8.2)
[2019-10-05 06:27] LABS: ALLENS TEST POSITIVE
[2019-10-05] MEDS: INSULIN SLIDING SCALE (NOVOLOG) 1 VIAL SQ SCH ×4 (06:38→22:13)
[2019-10-05] MEDS: LEVALBUTEROL HCL 0.63 MG/3 ML VIAL.NEB. IH SCH ×3 (07:45→20:45)
[2019-10-05] MEDS: DEXTROSE 5%-WATER - 1,000 ML IV SCH ×2 (07:50→22:46)
[2019-10-05] MEDS ORDERED: METOPROLOL TARTRATE 50 MG TABLET (FP) PO SCH (08:06)
--- NOTE | 2019-10-05 09:21 | PN ---
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, Physician - Current Medication List Current Medications: Active Medications Acetaminophen (Tylenol Oral Solution -) 1,000 mg PO Q6H PRN PRN Reason: FEVER Last Admin: 09/30/19 00:42 Dose: 1,000 mg Acetaminophen (Tylenol -) 325 mg PO Q4H PRN PRN Reason: PAIN SCALE 1-5 Stop: 10/05/19 11:03 Last Admin: 10/02/19 16:47 Dose: 325 mg Apixaban (Eliquis -) 2.5 mg PO BID [facility]S [facility] Last Admin: 10/04/19 21:47 Dose: 2.5 mg Budesonide/Formoterol Fumarate (Symbicort 80/4.5mcg -) 2 puff IH BID [facility]S [facility] Last Admin: 10/04/19 21:49 Dose: 2 puff Bupropion HCl (Wellbutrin Xl -) 300 mg PO DAILY [facility] Last Admin: 10/04/19 09:53 Dose: 300 mg Chlorhexidine Gluconate (Hibiclens For Decolonization -) 1 applic TP HS [facility] 234 [facility]S [facility] Last Admin: 10/04/19 21:48 Dose: 1 applic Chlorhexidine Gluconate (Peridex -) 15 ml MM BID [facility] Last Admin: 10/04/19 21:39 Dose: Not Given Digoxin (Lanoxin -) 0.125 mg PO DAILY [facility] Last Admin: 10/04/19 09:57 Dose: 0.125 mg Ergocalciferol (Drisdol -) 50,000 unit PO We@1000 [facility] Last Admin: 09/29/19 10:58 Dose: Not Given Gabapentin (Neurontin Oral Liquid -) 300 mg PO TID [facility] Last Admin: 10/05/19 06:02 Dose: 300 mg Hydralazine HCl (Apresoline Injection -) 10 mg IVPUSH Q6H PRN PRN Reason: HYPERTENSION Last Admin: 10/03/19 18:06 Dose: 10 mg Hydralazine HCl (Apresoline -) 75 mg PO QID [facility]S [facility] Famotidine/Sodium Chloride (Pepcid 20 Mg Premixed Ivpb -) 20 mg in 50 mls @ 100 mls/hr IVPB BID [facility] Last Admin: 10/04/19 21:47 Dose: 100 mls/hr Dextrose (D5w -) 1,000 mls @ 75 mls/hr IV ASDIR [facility] 234 B[facility]S [facility] Last Admin: 10/05/19 07:50 Dose: 75 mls/hr Insulin Aspart (Novolog Vial Sliding Scale -) 1 vial SQ ACHS [facility]S [facility]; Protocol Last Admin: 10/05/19 06:38 Dose: 2 units Levalbuterol HCl (Xopenex) 0.63 mg IH RTID [facility]S [facility] Last Admin: 10/05/19 07:45 Dose: 0.63 mg Lisinopril (Prinivil) 5 mg PO DAILY [facility] 234 [facility]S [facility] Last Admin: 10/04/19 09:57 Dose: 5 mg Melatonin (Melatonin) 10 mg PO HS [facility] 234 [facility]S [facility] Last Admin: 10/04/19 23:00 Dose: 10 mg Metoprolol Tartrate (Lopressor -) 200 mg PO BID [facility] 234 [facility]S [facility] Oxycodone HCl (Roxicodone -) 5 mg PO Q4H PRN PRN Reason: PAIN SCALE 1-5 Last Admin: 10/04/19 23:00 Dose: 5 mg Verapamil HCl (Calan Injection -) 5 mg IVPUSH Q6H PRN PRN Reason: TACHYCARDIA Last Admin: 10/05/19 04:23 Dose: 5 mg Verapamil HCl (Calan Sr -) 240 mg PO DAILY [facility] 234 B[facility]S [facility] - Objective Vital Signs: Vital Signs Temperature 97.9 F 10/05/19 08:00 Pulse Rate 120 H 10/05/19 08:00 Respiratory Rate 24 H 10/05/19 08:00 Blood Pressure 158/115 H 10/05/19 08:00 O2 Sat by Pulse Oximetry (%) 100 10/05/19 08:59 Cardiovascular: Yes: Tachycardia, Pulse Irregular, S1, S2 Respiratory: Yes: Regular, CTA Bilaterally Gastrointestinal: Yes: Normal Bowel Sounds, Soft Labs: CBC, BMP 10/05/19 05:20 10/05/19 05:20 INR, PTT INR 1.16 (0.83-1.09) H 09/30/19 06:18 Fibrinogen 247.0 mg/dL (238-498) 09/30/19 06:18 Assessment/Plan - Problems (1) Influenza A Assessment/Plan: -Seen by ID -Finished Tamiflu Problems reviewed: Yes Code(s): J10.1 - FLU DUE TO OTH IDENT INFLUENZA VIRUS W OTH RESP MANIFEST (2) Acute respiratory failure Assessment/Plan: -Extubated -Pulmonary on board -Bronchodilators -ID on board -IV medrol Problems reviewed: Yes Code(s): J96.00 - ACUTE RESPIRATORY FAILURE, UNSP W HYPOXIA OR HYPERCAPNIA (3) Acute exacerbation of COPD with asthma Problems reviewed: Yes Code(s): J44.1 - CHRONIC OBSTRUCTIVE PULMONARY DISEASE W (ACUTE) EXACERBATION; J45.901 - UNSPECIFIED ASTHMA WITH (ACUTE) EXACERBATION (4) Pneumonia Assessment/Plan: -Pulmonary on board -Bronchodilators -IV abx per iD -ID on board -IV medrol Problems reviewed: Yes Code(s): J18.9 - PNEUMONIA, UNSPECIFIED ORGANISM Qualifiers: Pneumonia type: due to unspecified organism Laterality: unspecified laterality Lung location: unspecified part of lung Qualified Code(s): J18.9 - Pneumonia, unspecified organism (5) JOSEPH (acute kidney injury) Assessment/Plan: -Nephrology consult -monitor trend Problems reviewed: Yes Code(s): N17.9 - ACUTE KIDNEY FAILURE, UNSPECIFIED (6) Afib Assessment/Plan: -Seen by cardiology -On [id number] qid--240 qd increase metoprolol to 200 bid -Continue eliquis -Will improve as pt improves metabolically Problems reviewed: Yes Code(s): I48.91 - UNSPECIFIED ATRIAL FIBRILLATION Qualifiers: Atrial fibrillation type: unspecified Qualified Code(s): I48.91 - Unspecified atrial fibrillation (7) HTN Assessment/Plan: -Seen by cardiology -Adjust meds -Hydralazine 75 qid -Vearpamil 240 qd -metoprolol 200 bid
[2019-10-05] MEDS ORDERED: VERAPAMIL HCL 240 MG E.R. TABLET PO SCH (10:00)
[2019-10-05] MEDS: hydrALAZINE HCL 25 MG TABLET (FP) PO SCH ×4 (10:28→22:11)
[2019-10-05] MEDS: APIXABAN 2.5 MG TABLET PO SCH ×2 (10:30→22:11)
--- NOTE | 2019-10-05 10:30 | PN ---
Teaching Attending Note Name of Resident: Alexandra Early ATTENDING PHYSICIAN STATEMENT I saw and evaluated the patient. I reviewed the resident's note and discussed the case with the resident. I agree with the resident's findings and plan as documented. SUBJECTIVE: Patient was seen and examined in the ICU. Remains extubated. Overnight transiently needed NRBM. Now on 4 L NC O2, saturation 97%. Awake and responsive., Slight agitation. Denies CP or SOB. Intake & Output 10/02/19 10/03/19 10/04/19 10/05/19 23:59 23:59 23:59 23:59 Intake Total 1284 1390 1329 1200 Output Total 2850 2000 1000 600 Balance -1566 -610 329 600 Weight 140 lb 11.2 oz 135 lb 11.2 oz 130 lb 14.4 oz 134 lb 4.8 oz Last Vital Signs Temp Pulse Resp BP Pulse Ox 97.9 F 120 H 24 H 158/115 H 100 10/05/19 08:00 10/05/19 08:00 10/05/19 08:00 10/05/19 08:00 10/05/19 08:59 Active Medications Acetaminophen (Tylenol Oral Solution -) 1,000 mg PO Q6H PRN PRN Reason: FEVER Last Admin: 09/30/19 00:42 Dose: 1,000 mg Acetaminophen (Tylenol -) 325 mg PO Q4H PRN PRN Reason: PAIN SCALE 1-5 Stop: 10/05/19 11:03 Last Admin: 10/02/19 16:47 Dose: 325 mg Apixaban (Eliquis -) 2.5 mg PO BID [facility] Last Admin: 10/04/19 21:47 Dose: 2.5 mg Budesonide/Formoterol Fumarate (Symbicort 80/4.5mcg -) 2 puff IH BID [facility] Last Admin: 10/04/19 21:49 Dose: 2 puff Bupropion HCl (Wellbutrin Xl -) 300 mg PO DAILY [facility] Last Admin: 10/04/19 09:53 Dose: 300 mg Chlorhexidine Gluconate (Hibiclens For Decolonization -) 1 applic TP HS [facility] Last Admin: 10/04/19 21:48 Dose: 1 applic Chlorhexidine Gluconate (Peridex -) 15 ml MM BID [facility] Last Admin: 10/04/19 21:39 Dose: Not Given Digoxin (Lanoxin -) 0.125 mg PO DAILY [facility] Last Admin: 10/04/19 09:57 Dose: 0.125 mg Ergocalciferol (Drisdol -) 50,000 unit PO We@1000 [facility] Last Admin: 09/29/19 10:58 Dose: Not Given Gabapentin (Neurontin Oral Liquid -) 300 mg PO TID [facility] Last Admin: 10/05/19 06:02 Dose: 300 mg Hydralazine HCl (Apresoline Injection -) 10 mg IVPUSH Q6H PRN PRN Reason: HYPERTENSION Last Admin: 10/03/19 18:06 Dose: 10 mg Hydralazine HCl (Apresoline -) 75 mg PO QID [facility] Famotidine/Sodium Chloride (Pepcid 20 Mg Premixed Ivpb -) 20 mg in 50 mls @ 100 mls/hr IVPB BID [facility] Last Admin: 10/04/19 21:47 Dose: 100 mls/hr Dextrose (D5w -) 1,000 mls @ 75 mls/hr IV ASDIR [facility] Last Admin: 10/05/19 07:50 Dose: 75 mls/hr Insulin Aspart (Novolog Vial Sliding Scale -) 1 vial SQ ACHS [facility]; Protocol Last Admin: 10/05/19 06:38 Dose: 2 units Levalbuterol HCl (Xopenex) 0.63 mg IH RTID [facility] Last Admin: 10/05/19 07:45 Dose: 0.63 mg Lisinopril (Prinivil) 5 mg PO DAILY [facility] Last Admin: 10/04/19 09:57 Dose: 5 mg Melatonin (Melatonin) 10 mg PO HS [facility] Last Admin: 10/04/19 23:00 Dose: 10 mg Metoprolol Tartrate (Lopressor -) 200 mg PO BID [facility] Oxycodone HCl (Roxicodone -) 5 mg PO Q4H PRN PRN Reason: PAIN SCALE 1-5 Last Admin: 10/04/19 23:00 Dose: 5 mg Verapamil HCl (Calan Injection -) 5 mg IVPUSH Q6H PRN PRN Reason: TACHYCARDIA Last Admin: 10/05/19 04:23 Dose: 5 mg Verapamil HCl (Calan Sr -) 240 mg PO DAILY [facility] Gen: Awake and alert, on NC O2 HEENT: Dry MM Heart: Rapid AFib Lung: scattered bilateral rhonchi, no wheeze Abd: soft, nontender Ext: + edema Neuro: Awake and responsive, non-focal Laboratory Results - last 24 hr 10/04/19 10/04/19 10/04/19 16:43 20:10 21:46 WBC RBC Hgb Hct MCV MCH MCHC RDW Plt Count MPV Anticoagulation Therapy No Result Required. Puncture Site No Result Required. 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 O2 Delivery Device No Result Required. Oxygen Flow Rate No Result Required. Vent Mode No Result Required. Vent Rate No Result Required. Mechanical Rate No Result Required. Pressure Support Vent No Result Required. Sodium Potassium Chloride Carbon Dioxide Anion Gap BUN Creatinine Est GFR (CKD-EPI)AfAm Est GFR (CKD-EPI)NonAf POC Glucometer 209 149 Random Glucose Calcium Phosphorus Magnesium Total Bilirubin AST ALT Alkaline Phosphatase Total Protein Albumin 10/04/19 10/05/19 10/05/19 22:15 05:20 05:20 WBC 11.3 H RBC 4.29 Hgb 12.4 Hct 38.9 MCV 90.6 MCH 29.0 MCHC 32.0 RDW 15.4 Plt Count 101 L MPV 12.0 H Anticoagulation Therapy No Result Required. Puncture Site Right radial ABG pH 7.52 H ABG pCO2 at Pt Temp 45.1 H ABG pO2 at Pt Temp < 49 L* ABG HCO3 36.2 H ABG O2 Sat (Measured) 83.0 L ABG O2 Content No Result Required. ABG Base Excess 11.8 H Randy Test Positive O2 Delivery Device No Result Required. Oxygen Flow Rate Yes Vent Mode No Result Required. Vent Rate No Result Required. Mechanical Rate No Result Required. Pressure Support Vent No Result Required. Sodium 146 H Potassium 4.0 Chloride 108 H Carbon Dioxide 32 Anion Gap 5 L BUN 57.6 H Creatinine 1.3 Est GFR (CKD-EPI)AfAm 51.28 Est GFR (CKD-EPI)NonAf 44.24 POC Glucometer Random Glucose 153 H Calcium 9.1 Phosphorus 4.0 Magnesium 2.8 H Total Bilirubin 1.9 H AST 29 ALT 54 Alkaline Phosphatase 68 Total Protein 6.7 Albumin 3.2 L 10/05/19 10/05/19 06:00 06:00 WBC RBC Hgb Hct MCV MCH MCHC RDW Plt Count MPV Anticoagulation Therapy No Result Required. Puncture Site Right radial ABG pH 7.44 ABG pCO2 at Pt Temp 51.7 H ABG pO2 at Pt Temp 253 H ABG HCO3 34.9 H ABG O2 Sat (Measured) 99.2 H ABG O2 Content 18.1 ABG Base Excess 9.5 H Randy Test Positive O2 Delivery Device Nrm Oxygen Flow Rate 100% Vent Mode No Result Required. Vent Rate No Result Required. Mechanical Rate No Result Required. Pressure Support Vent No Result Required. Sodium Potassium Chloride Carbon Dioxide Anion Gap BUN Creatinine Est GFR (CKD-EPI)AfAm Est GFR (CKD-EPI)NonAf POC Glucometer 155 Random Glucose Calcium Phosphorus Magnesium Total Bilirubin AST ALT Alkaline Phosphatase Total Protein Albumin ASSESSMENT AND PLAN: Acute on Chronic Hypoxic and Hypercapneic Respiratory Failure Influenza A Pneumonia Acute COPD Exacerbation Atrial Fibrillation with RVR LV Diastolic Dysfunction HTN DM CKD Obstructive Sleep Apnea - NC O2 as tolerated - Completed tamiflu - DC Medrol - Inhaled bronchodilators standing and PRN - O2 to keep SpO2 >90% - Rate control - Continue anticoagulation - PO as tolerated - Aspiration precautions - Free water for hypernatremia - DVT/GI prophylaxis - If remains stable, 4W / 4S monitoring Dr Montiel
[2019-10-05] MEDS: DIGOXIN 0.125 MG TABLET (FP) PO SCH (10:32)
[2019-10-05] MEDS: FAMOTIDINE 20 MG/50 ML IVPB 20 MG/50 ML MG IVPB SCH ×2 (10:35→22:44)
[2019-10-05] MEDS: LISINOPRIL 5 MG TABLET (FP) PO SCH (10:35)
[2019-10-05] MEDS: CHLORHEXIDINE GLUCONATE 0.12% 15ML CUP MM SCH ×2 (10:35→22:13)
[2019-10-05] MEDS: BUDESONIDE/FORMETEROL FUMARATE 80/4.5 mcg INHALER IH SCH ×2 (10:36→22:13)
--- NOTE | 2019-10-05 10:44 | PN ---
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, Physician History of Present Illness: seen and examined this am in nad. awake and alert but confused. states she wants to get out of bed - Current Medication List Current Medications: Active Medications Acetaminophen (Tylenol Oral Solution -) 1,000 mg PO Q6H PRN PRN Reason: FEVER Last Admin: 09/30/19 00:42 Dose: 1,000 mg Acetaminophen (Tylenol -) 325 mg PO Q4H PRN PRN Reason: PAIN SCALE 1-5 Stop: 10/05/19 11:03 Last Admin: 10/02/19 16:47 Dose: 325 mg Apixaban (Eliquis -) 2.5 mg PO BID [facility] Last Admin: 10/05/19 10:30 Dose: 2.5 mg Budesonide/Formoterol Fumarate (Symbicort 80/4.5mcg -) 2 puff IH BID [facility] Last Admin: 10/05/19 10:36 Dose: 2 puff Bupropion HCl (Wellbutrin Xl -) 300 mg PO DAILY [facility] Last Admin: 10/04/19 09:53 Dose: 300 mg Chlorhexidine Gluconate (Hibiclens For Decolonization -) 1 applic TP HS [facility] Last Admin: 10/04/19 21:48 Dose: 1 applic Chlorhexidine Gluconate (Peridex -) 15 ml MM BID [facility] Last Admin: 10/05/19 10:35 Dose: Not Given Digoxin (Lanoxin -) 0.125 mg PO DAILY [facility] Last Admin: 10/05/19 10:32 Dose: 0.125 mg Ergocalciferol (Drisdol -) 50,000 unit PO We@1000 [facility] Last Admin: 09/29/19 10:58 Dose: Not Given Gabapentin (Neurontin Oral Liquid -) 300 mg PO TID [facility] Last Admin: 10/05/19 06:02 Dose: 300 mg Hydralazine HCl (Apresoline Injection -) 10 mg IVPUSH Q6H PRN PRN Reason: HYPERTENSION Last Admin: 10/03/19 18:06 Dose: 10 mg Hydralazine HCl (Apresoline -) 75 mg PO QID [facility] Last Admin: 10/05/19 10:28 Dose: 75 mg Famotidine/Sodium Chloride (Pepcid 20 Mg Premixed Ivpb -) 20 mg in 50 mls @ 100 mls/hr IVPB BID [facility] Last Admin: 10/05/19 10:35 Dose: 100 mls/hr Dextrose (D5w -) 1,000 mls @ 75 mls/hr IV ASDIR [facility] Last Admin: 10/05/19 07:50 Dose: 75 mls/hr Insulin Aspart (Novolog Vial Sliding Scale -) 1 vial SQ ACHS [facility]; Protocol Last Admin: 10/05/19 06:38 Dose: 2 units Levalbuterol HCl (Xopenex) 0.63 mg IH RTID [facility] Last Admin: 10/05/19 07:45 Dose: 0.63 mg Lisinopril (Prinivil) 5 mg PO DAILY [facility] Last Admin: 10/05/19 10:35 Dose: 5 mg Melatonin (Melatonin) 10 mg PO HS [facility] Last Admin: 10/04/19 23:00 Dose: 10 mg Metoprolol Tartrate (Lopressor -) 200 mg PO BID [facility] Last Admin: 10/05/19 10:32 Dose: 200 mg Oxycodone HCl (Roxicodone -) 5 mg PO Q4H PRN PRN Reason: PAIN SCALE 1-5 Last Admin: 10/04/19 23:00 Dose: 5 mg Verapamil HCl (Calan Injection -) 5 mg IVPUSH Q6H PRN PRN Reason: TACHYCARDIA Last Admin: 10/05/19 04:23 Dose: 5 mg Verapamil HCl (Calan Sr -) 240 mg PO DAILY [facility] Last Admin: 10/05/19 10:26 Dose: 240 mg - Objective Vital Signs: Vital Signs Temperature 97.5 F L 10/05/19 10:00 Pulse Rate 139 H 10/05/19 10:32 Respiratory Rate 20 10/05/19 10:00 Blood Pressure 171/105 H 10/05/19 10:00 O2 Sat by Pulse Oximetry (%) 100 10/05/19 08:59 Constitutional: Yes: No Distress, Anxious Eyes: Yes: Conjunctiva Clear, EOM Intact HENT: Yes: Atraumatic, Normocephalic Neck: Yes: Supple, Trachea Midline Cardiovascular: Yes: Tachycardia, Pulse Irregular, S1, S2. No: Regular Rate and Rhythm, Bradycardia, Bruit, JVD, Gallop, Murmur, Rub, S3, S4, Varicosities Respiratory: Yes: Regular. No: Rales, Rhonchi, SOB, Wheezes Gastrointestinal: Yes: Normal Bowel Sounds, Soft Musculoskeletal: Yes: WNL Extremities: Yes: WNL Edema: No Peripheral Pulses WNL: Yes Peripheral Pulses: Left Doralis Pedis: 2+, Right Dorsalis Pedis: 2+ Neurological: Yes: Alert. No: Oriented Psychiatric: Yes: Alert. No: Oriented Labs: CBC, BMP 10/05/19 05:20 10/05/19 05:20 INR, PTT INR 1.16 (0.83-1.09) H 09/30/19 06:18 Fibrinogen 247.0 mg/dL (238-498) 09/30/19 06:18 - ....Imaging Chest X-ray: Report Reviewed, Image Reviewed EKG: Report Reviewed, Image Reviewed Other: Report Reviewed, Image Reviewed (tele-afib with RVR) Assessment/Plan 59 year old female with a PMH of hypertension, AFIB, CHF, COPD, DM, sleep apnea , and CKD. She presented to the ER with SOB, respiratory failure, was intubated due to hypercapneic respiratory failure. Found with influeza, HCAP and atrial fibrillation with RVR. Echocardiogram 04/26/19 showed normal LV funciton, moderate severe AI, moderate MR, severe TR. Atrial Fibrillation -HR above goal -appears intravascularly depleted on exam and labs likely contributing to tachycardia -recc trial of IVF bolus -cont current Metoprolol, Verapamil, and digoxin doses for now -On Apixaban 2.5 mg PO Q12h for AC HTN above goal -re-evaluate after this am meds -hydralazine was increased -if BP remains uncontrolled can increase lisinopril
[2019-10-05] MEDS ORDERED: PT OWN MED DRAWER 7, Y5N ONE ×4 (10:52→16:38)
--- NOTE | 2019-10-05 11:08 | PN ---
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 On chopped reg diet, thin liquids. 3 oz water (-) Monitor tolerance. May need Dys chopped if chewing is difficult as pt is edentulous. Monitor tolerance
--- NOTE | 2019-10-05 12:14 | PN ---
Physical Exam: SUBJECTIVE: Patient seen and examined in the morning. No acute events overnight , but patient was tachycardic and hypertensive overnight. Patient complains of b /l hip pain, but denies chest pain and shortness of breath. No fevers, nausea, vomiting, or diarrhea. OBJECTIVE: Vital Signs Period Temp Pulse Resp BP Sys/Salgado Pulse Ox Last 24 Hr 97.5 F-98.7 F 77-159 18-30 124-202/73-138 94-100 GENERAL: The patient is awake, alert, and fully oriented to self and place. Is not always accurate regarding time. HEAD: Normal with no signs of trauma. EYES: EOMI. ENT:Nasal cannula in place. NECK: Full range of motion, supple. LUNGS: Breath sounds clear in the apex b/l. Crackles in the bases b/l HEART: Tachycardic, no murmurs appreciated. ABDOMEN: Soft, nontender, nondistended, normoactive bowel sounds, no guarding, no rebound, no hepatosplenomegaly, no masses. EXTREMITIES: 2+ pulses, warm, well-perfused, no edema. NEUROLOGICAL: Cranial nerves II through XII grossly intact. Normal speech, gait not observed. PSYCH: Bursts of agitation. SKIN: Warm, dry, normal turgor, no rashes or lesions noted Laboratory Results - last 24 hr 10/04/19 10/04/19 10/04/19 16:43 20:10 21:46 WBC RBC Hgb Hct MCV MCH MCHC RDW Plt Count MPV Anticoagulation Therapy No Result Required. Puncture Site No Result Required. ABG pH 7.49 H ABG pCO2 at Pt Temp 45.7 H ABG pO2 at Pt Temp < 49 L* ABG HCO3 34.3 H ABG O2 Sat (Measured) 82.5 L ABG O2 Content [employer] Manager ABG Base Excess 9.9 H Randy Test No Result Required. O2 Delivery Device No Result Required. Oxygen Flow Rate No Result Required. Vent Mode No Result Required. Vent Rate No Result Required. Mechanical Rate No Result Required. Pressure Support Vent No Result Required. Sodium Potassium Chloride Carbon Dioxide Anion Gap BUN Creatinine Est GFR (CKD-EPI)AfAm Est GFR (CKD-EPI)NonAf POC Glucometer 209 149 Random Glucose Calcium Phosphorus Magnesium Total Bilirubin AST ALT Alkaline Phosphatase Total Protein Albumin 10/04/19 10/05/19 10/05/19 22:15 05:20 05:20 WBC 11.3 H RBC 4.29 Hgb 12.4 Hct 38.9 MCV 90.6 MCH 29.0 MCHC 32.0 RDW 15.4 Plt Count 101 L MPV 12.0 H Anticoagulation Therapy No Result Required. Puncture Site Right radial ABG pH 7.52 H ABG pCO2 at Pt Temp 45.1 H ABG pO2 at Pt Temp < 49 L* ABG HCO3 36.2 H ABG O2 Sat (Measured) 83.0 L ABG O2 Content No Result Required. ABG Base Excess 11.8 H Randy Test Positive O2 Delivery Device No Result Required. Oxygen Flow Rate Yes Vent Mode No Result Required. Vent Rate No Result Required. Mechanical Rate No Result Required. Pressure Support Vent No Result Required. Sodium 146 H Potassium 4.0 Chloride 108 H Carbon Dioxide 32 Anion Gap 5 L BUN 57.6 H Creatinine 1.3 Est GFR (CKD-EPI)AfAm 51.28 Est GFR (CKD-EPI)NonAf 44.24 POC Glucometer Random Glucose 153 H Calcium 9.1 Phosphorus 4.0 Magnesium 2.8 H Total Bilirubin 1.9 H AST 29 ALT 54 Alkaline Phosphatase 68 Total Protein 6.7 Albumin 3.2 L 10/05/19 10/05/19 06:00 06:00 WBC RBC Hgb Hct MCV MCH MCHC RDW Plt Count MPV Anticoagulation Therapy No Result Required. Puncture Site Right radial ABG pH 7.44 ABG pCO2 at Pt Temp 51.7 H ABG pO2 at Pt Temp 253 H ABG HCO3 34.9 H ABG O2 Sat (Measured) 99.2 H ABG O2 Content 18.1 ABG Base Excess 9.5 H Randy Test Positive O2 Delivery Device Nrm Oxygen Flow Rate 100% Vent Mode No Result Required. Vent Rate No Result Required. Mechanical Rate No Result Required. Pressure Support Vent No Result Required. Sodium Potassium Chloride Carbon Dioxide Anion Gap BUN Creatinine Est GFR (CKD-EPI)AfAm Est GFR (CKD-EPI)NonAf POC Glucometer 155 Random Glucose Calcium Phosphorus Magnesium Total Bilirubin AST ALT Alkaline Phosphatase Total Protein Albumin Active Medications Generic Name Dose Route Start Last Admin Trade Name Freq PRN Reason Stop Dose Admin Acetaminophen 1,000 mg 09/28/19 16:51 09/30/19 00:42 Tylenol Oral Solution - PO 1,000 mg Q6H PRN Administration FEVER Apixaban 2.5 mg 09/25/19 10:00 10/05/19 10:30 Eliquis - PO 2.5 mg BID [facility] Administration Budesonide/Formoterol Fumarate 2 puff 09/25/19 10:00 10/05/19 10:36 Symbicort 80/4.5mcg - IH 2 puff BID [facility] Administration Bupropion HCl 300 mg 10/04/19 10:00 10/05/19 10:53 Wellbutrin Xl - PO 300 mg DAILY [facility] Administration Chlorhexidine Gluconate 1 applic 09/24/19 22:00 10/04/19 21:48 Hibiclens For Decolonization - TP 1 applic HS [facility] Administration Chlorhexidine Gluconate 15 ml 09/29/19 22:00 10/05/19 10:35 Peridex - MM Not Given BID [facility] Digoxin 0.125 mg 09/25/19 12:00 10/05/19 10:32 Lanoxin - PO 0.125 mg DAILY [facility] Administration Ergocalciferol 50,000 unit 09/29/19 10:00 09/29/19 10:58 Drisdol - PO Not Given We@1000 [facility] Gabapentin 300 mg 09/25/19 14:00 10/05/19 06:02 Neurontin Oral Liquid - PO 300 mg TID [facility] Administration Hydralazine HCl 10 mg 09/30/19 11:28 10/03/19 18:06 Apresoline Injection - IVPUSH 10 mg Q6H PRN Administration HYPERTENSION Hydralazine HCl 75 mg 10/05/19 08:06 10/05/19 10:28 Apresoline - PO 75 mg QID [facility] Administration Famotidine/Sodium Chloride 20 mg in 50 mls @ 100 mls/hr 09/30/19 22:00 10:35 Pepcid 20 Mg Premixed Ivpb - IVPB 100 mls/hr BID [facility] Administration Dextrose 1,000 mls @ 75 mls/hr 10/03/19 07:00 10/05/19 07:50 D5w - IV 75 mls/hr ASDIR [facility] Administration Insulin Aspart 1 vial 09/25/19 16:30 10/05/19 06:38 Novolog Vial Sliding Scale - SQ 2 units ACHS [facility] Administration Protocol Levalbuterol HCl 0.63 mg 09/25/19 14:00 10/05/19 07:45 Xopenex IH 0.63 mg RTID [facility] Administration Lisinopril 5 mg 09/30/19 10:00 10/05/19 10:35 Prinivil PO 5 mg DAILY [facility] Administration Melatonin 10 mg 10/03/19 19:15 10/04/19 23:00 Melatonin PO 10 mg HS [facility] Administration Metoprolol Tartrate 200 mg 10/05/19 08:06 10/05/19 10:32 Lopressor - PO 200 mg BID [facility] Administration Verapamil HCl 5 mg 09/30/19 16:34 10/05/19 04:23 Calan Injection - IVPUSH 5 mg Q6H PRN Administration TACHYCARDIA Verapamil HCl 240 mg 10/05/19 10:00 10/05/19 10:26 Calan Sr - PO 240 mg DAILY [facility] Administration ASSESSMENT/PLAN: 59 F PMH afib(eliquis), CHF, HTN, CKD IIIb, COPD/Asthma (requiring intubation), prior PE, pulmonary fibrosis, TANISHA, DM presents with SOB and admitted to ICU for acute hypoxic hypercapnic respiratory failure s/p intubation. Extubated on . Neuro -Continue gabapentin 300 mg TID -patient is agitated at times Cardiovascular -Tachycardic -Lopressor 200 mg BID -Verapamil 240 mg Daily -Hydralazine 75 mg PO QID -Lisinopril 5 Daily -Digoxin 0.125 mg Daily -Hydralazine 10 mg Q6H IV PRN -Verapamil 5 mg IV PRN -Will trial IVF bolus for tachycardia 2/2 dehydration Pulmonary -Extubated 10/03 -D/C steroids -On 4L NC Renal -CKD- BUN/Cr of 57.6/1.3 -Holding lasix -D5W @ 75 ID -Flu positive on admission -Blood and urine culture negative -Completed cefepime course Heme -Chronic thrombocytopenia Endo -Hx of DM -ACHS BGM -ISS F: D5W @ 75 E: monitor CMP N: Chopped diet Lines: Extubated 10/03, peripheral IVs in placed. Flores out 10/05. DVT: Eliquis 2.5 mg BID Dispo: [facility]xfer to [facility]. Visit type - Emergency Visit Emergency Visit: Yes ED Registration Date: 09/24/19 Care time: The patient presented to the Emergency Department on the above date and was hospitalized for further evaluation of their emergent condition. - New Patient This patient is new to me today: Yes Date on this admission: 10/05/19 - Critical Care Critical Care patient: Yes Total Critical Care Time (in minutes): 45 Critical Care Statement: The care of this patient involved high complexity decision making to prevent further life threatening deterioration of the patient 's condition and/or to evaluate & treat vital organ system(s) failure or risk of failure. ATTENDING PHYSICIAN STATEMENT I saw and evaluated the patient. I reviewed the resident's note and discussed the case with the resident. I agree with the resident's findings and plan as documented. SUBJECTIVE: OBJECTIVE: ASSESSMENT AND PLAN:
--- NOTE | 2019-10-05 16:52 | PN ---
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, Physician History of Present Illness: Pt seen and examined at bedside. She is more awake and alert today. She is asking to go home. - Current Medication List Current Medications: Active Medications Acetaminophen (Tylenol Oral Solution -) 1,000 mg PO Q6H PRN PRN Reason: FEVER Last Admin: 09/30/19 00:42 Dose: 1,000 mg Apixaban (Eliquis -) 2.5 mg PO BID [facility] Last Admin: 10/05/19 10:30 Dose: 2.5 mg Budesonide/Formoterol Fumarate (Symbicort 80/4.5mcg -) 2 puff IH BID [facility] Last Admin: 10/05/19 10:36 Dose: 2 puff Bupropion HCl (Wellbutrin Xl -) 300 mg PO DAILY [facility] Last Admin: 10/05/19 10:53 Dose: 300 mg Chlorhexidine Gluconate (Hibiclens For Decolonization -) 1 applic TP HS [facility] Last Admin: 10/04/19 21:48 Dose: 1 applic Chlorhexidine Gluconate (Peridex -) 15 ml MM BID [facility] Last Admin: 10/05/19 10:35 Dose: Not Given Digoxin (Lanoxin -) 0.125 mg PO DAILY [facility] Last Admin: 10/05/19 10:32 Dose: 0.125 mg Ergocalciferol (Drisdol -) 50,000 unit PO We@1000 [facility] Last Admin: 09/29/19 10:58 Dose: Not Given Gabapentin (Neurontin Oral Liquid -) 300 mg PO TID [facility] Last Admin: 10/05/19 15:23 Dose: 300 mg Hydralazine HCl (Apresoline Injection -) 10 mg IVPUSH Q6H PRN PRN Reason: HYPERTENSION Last Admin: 10/03/19 18:06 Dose: 10 mg Hydralazine HCl (Apresoline -) 75 mg PO QID [facility] Last Admin: 10/05/19 10:28 Dose: 75 mg Famotidine/Sodium Chloride (Pepcid 20 Mg Premixed Ivpb -) 20 mg in 50 mls @ 100 mls/hr IVPB BID [facility] Last Admin: 10/05/19 10:35 Dose: 100 mls/hr Dextrose (D5w -) 1,000 mls @ 75 mls/hr IV ASDIR [facility] Last Admin: 01/28/20 07:50 Dose: 75 mls/hr Insulin Aspart (Novolog Vial Sliding Scale -) 1 vial SQ ACHS [facility]; Protocol Last Admin: 10/05/19 12:37 Dose: Not Given Levalbuterol HCl (Xopenex) 0.63 mg IH RTID [facility] Last Admin: 10/05/19 15:20 Dose: 0.63 mg Lisinopril (Prinivil) 5 mg PO DAILY [facility] Last Admin: 10/05/19 10:35 Dose: 5 mg Melatonin (Melatonin) 10 mg PO HS [facility] Last Admin: 10/04/19 23:00 Dose: 10 mg Metoprolol Tartrate (Lopressor -) 200 mg PO BID [facility] Last Admin: 10/05/19 10:32 Dose: 200 mg Verapamil HCl (Calan Injection -) 5 mg IVPUSH Q6H PRN PRN Reason: TACHYCARDIA Last Admin: 10/05/19 04:23 Dose: 5 mg Verapamil HCl (Calan Sr -) 240 mg PO DAILY [facility] Last Admin: 10/05/19 10:26 Dose: 240 mg - Objective Vital Signs: Vital Signs Temperature 97.5 F L 10/05/19 14:00 Pulse Rate 72 10/05/19 14:00 Respiratory Rate 24 H 10/05/19 14:00 Blood Pressure 156/85 10/05/19 14:00 O2 Sat by Pulse Oximetry (%) 100 10/05/19 08:59 Constitutional: Yes: Calm Eyes: Yes: Conjunctiva Clear HENT: Yes: Atraumatic Cardiovascular: Yes: S1, S2 Respiratory: Yes: On Nasal O2 Gastrointestinal: Yes: Soft Genitourinary: Yes: WNL Musculoskeletal: Yes: WNL Edema: No Integumentary: Yes: WNL Neurological: Yes: Confusion Labs: CBC, BMP 10/05/19 05:20 10/05/19 05:20 INR, PTT INR 1.16 (0.83-1.09) H 09/30/19 06:18 Fibrinogen 247.0 mg/dL (238-498) 09/30/19 06:18 Assessment/Plan Current Medications Generic Name Dose Route Start Last Admin Trade Name Freq PRN Reason Stop Dose Admin Acetaminophen 1,000 mg 09/28/19 16:51 09/30/19 00:42 Tylenol Oral Solution - PO 1,000 mg Q6H PRN Administration FEVER Apixaban 2.5 mg 09/25/19 10:00 10/05/19 10:30 Eliquis - PO 2.5 mg BID [facility] Administration Budesonide/Formoterol Fumarate 2 puff 09/25/19 10:00 10/05/19 10:36 Symbicort 80/4.5mcg - IH 2 puff BID [facility] Administration Bupropion HCl 300 mg 10/04/19 10:00 10/05/19 10:53 Wellbutrin Xl - PO 300 mg DAILY [facility] Administration Chlorhexidine Gluconate 1 applic 09/24/19 22:00 10/04/19 21:48 Hibiclens For Decolonization - TP 1 applic HS [facility] Administration Chlorhexidine Gluconate 15 ml 09/29/19 22:00 10/05/19 10:35 Peridex - MM Not Given BID [facility] Digoxin 0.125 mg 09/25/19 12:00 10/05/19 10:32 Lanoxin - PO 0.125 mg DAILY [facility] Administration Ergocalciferol 50,000 unit 09/29/19 10:00 09/29/19 10:58 Drisdol - PO Not Given We@1000 [facility] Gabapentin 300 mg 09/25/19 14:00 10/05/19 15:23 Neurontin Oral Liquid - PO 300 mg TID [facility] Administration Hydralazine HCl 10 mg 09/30/19 11:28 10/03/19 18:06 Apresoline Injection - IVPUSH 10 mg Q6H PRN Administration HYPERTENSION Hydralazine HCl 75 mg 10/05/19 08:06 10/05/19 10:28 Apresoline - PO 75 mg QID [facility] Administration Famotidine/Sodium Chloride 20 mg in 50 mls @ 100 mls/hr 09/30/19 22:00 10:35 Pepcid 20 Mg Premixed Ivpb - IVPB 100 mls/hr BID [facility] Administration Dextrose 1,000 mls @ 75 mls/hr 10/03/19 07:00 10/05/19 07:50 D5w - IV 75 mls/hr ASDIR [facility] Administration Insulin Aspart 1 vial 09/25/19 16:30 10/05/19 12:37 Novolog Vial Sliding Scale - SQ Not Given ACHS [facility] Protocol Levalbuterol HCl 0.63 mg 09/25/19 14:00 10/05/19 15:20 Xopenex IH 0.63 mg RTID [facility] Administration Lisinopril 5 mg 09/30/19 10:00 10/05/19 10:35 Prinivil PO 5 mg DAILY [facility] Administration Melatonin 10 mg 10/03/19 19:15 10/04/19 23:00 Melatonin PO 10 mg HS [facility] Administration Metoprolol Tartrate 200 mg 10/05/19 08:06 10/05/19 10:32 Lopressor - PO 200 mg BID [facility] Administration Verapamil HCl 5 mg 09/30/19 16:34 10/05/19 04:23 Calan Injection - IVPUSH 5 mg Q6H PRN Administration TACHYCARDIA Verapamil HCl 240 mg 10/05/19 10:00 10/05/19 10:26 Calan Sr - PO 240 mg DAILY [facility] Administration Impression 1. CKD 2. CHF 3. a-fib 4. lower ext edema 5. COPD 6. active smoker 7. non compliance 8. acute resp failure 9. influenza 10. hypernatremia Plan - renal function is improving - potassium is improving - monitor volume status - monitor lytes - avoid nsaids
[2019-10-05] MEDS: ACETAMINOPHEN 650 MG/20.3 ML ORAL SOLUTION (CUPS) PO PRN (17:08)
[2019-10-05] MEDS ORDERED: VERAPAMIL HCL 5 MG/2 ML VIAL IVPUSH PRN (18:21)
[2019-10-05] MEDS: METOPROLOL TARTRATE 50 MG TABLET (FP) PO SCH (22:11)
[2019-10-05] MEDS: MELATONIN 5 MG TABLETS PO SCH (22:12)
[2019-10-05] MEDS: CHLORHEXIDINE GLUCONATE 4% CLEANSER FOR DECOLONIZATION TP SCH (22:12)
[2019-10-06] MEDS ORDERED: PT OWN MED DRAWER 7, Y5N ONE ×3 (02:13→17:19)
[2019-10-06] MEDS: hydrALAZINE HCL 20 MG/ML VIAL IVPUSH PRN (06:23)
[2019-10-06] MEDS: INSULIN SLIDING SCALE (NOVOLOG) 1 VIAL SQ SCH ×4 (06:27→21:19)
[2019-10-06] MEDS: GABAPENTIN 250 MG/5 ML ORAL SOLUTION, 470 ML BOTTLE PO SCH ×3 (06:28→21:19)
[2019-10-06] MEDS: LEVALBUTEROL HCL 0.63 MG/3 ML VIAL.NEB. IH SCH ×3 (07:43→20:48)
[2019-10-06] MEDS: METOPROLOL TARTRATE 50 MG TABLET (FP) PO SCH ×2 (09:08→21:18)
[2019-10-06] MEDS: VERAPAMIL HCL 240 MG E.R. TABLET PO SCH (09:09)
[2019-10-06] MEDS: APIXABAN 2.5 MG TABLET PO SCH ×2 (09:09→21:18)
[2019-10-06] MEDS: hydrALAZINE HCL 25 MG TABLET (FP) PO SCH ×4 (09:09→21:18)
[2019-10-06] MEDS: LISINOPRIL 5 MG TABLET (FP) PO SCH (09:09)
[2019-10-06] MEDS: DIGOXIN 0.125 MG TABLET (FP) PO SCH (09:09)
[2019-10-06] MEDS: CHLORHEXIDINE GLUCONATE 0.12% 15ML CUP MM SCH ×2 (09:10→21:19)
[2019-10-06] MEDS: ERGOCALCIFEROL (VIT D2) 50,000 UNIT (1.25 MG) CAPSULE PO SCH (09:10)
[2019-10-06] MEDS: FAMOTIDINE 20 MG/50 ML IVPB 20 MG/50 ML MG IVPB SCH ×2 (09:10→21:19)
[2019-10-06] MEDS: BUDESONIDE/FORMETEROL FUMARATE 80/4.5 mcg INHALER IH SCH ×2 (09:24→21:19)
--- NOTE | 2019-10-06 10:39 | PN ---
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: Selected Entries 10/05/19 10/05/19 10/05/19 02:00 06:00 08:00 Breakfast Temperature 97.6 F 97.8 F 97.9 F Pulse Rate 10/05/19 10/05/19 10/05/19 10:00 14:00 16:00 Breakfast 0 Temperature 97.5 F L 97.5 F L 97.8 F Pulse Rate 10/05/19 10/06/19 10/06/19 22:00 02:00 06:10 Breakfast Temperature 98.2 F 98.4 F Pulse Rate 104 H 132 H 10/06/19 10/06/19 10/06/19 06:15 06:20 06:49 Breakfast Temperature Pulse Rate 115 H 124 H 131 H 10/06/19 10/06/19 10/06/19 08:15 09:00 09:09 Breakfast Temperature Pulse Rate 95 H 115 H 144 H 10/06/19 09:53 Breakfast 0 Temperature Pulse Rate Laboratory Tests 10/03/19 10/04/19 10/05/19 05:50 06:15 05:20 WBC 11.7 H 11.4 H 11.3 H Tachycardia On Chopped, reg diet, thin liquids. Refusing PO, per nursing. Accepted meds in hot cereal.
--- NOTE | 2019-10-06 11:17 | PN ---
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, Physician Chief Complaint: AWAKE ALERT TACHYCARDIC EVENT NOTED DENIES CHEST PAIN STILL WITH PRODUCTIVE COUGH - Current Medication List Current Medications: Active Medications Acetaminophen (Tylenol Oral Solution -) 1,000 mg PO Q6H PRN PRN Reason: FEVER Apixaban (Eliquis -) 2.5 mg PO BID [facility] Last Admin: 10/06/19 09:09 Dose: 2.5 mg Budesonide/Formoterol Fumarate (Symbicort 80/4.5mcg -) 2 puff IH BID [facility] Last Admin: 10/06/19 09:24 Dose: 2 puff Bupropion HCl (Wellbutrin Xl -) 300 mg PO DAILY [facility] Last Admin: 10/06/19 09:10 Dose: 300 mg Chlorhexidine Gluconate (Hibiclens For Decolonization -) 1 applic TP HS [facility] Last Admin: 10/05/19 22:12 Dose: 1 applic Chlorhexidine Gluconate (Peridex -) 15 ml MM BID [facility] Last Admin: 10/06/19 09:10 Dose: 15 ml Digoxin (Lanoxin -) 0.125 mg PO DAILY [facility] Last Admin: 10/06/19 09:09 Dose: 0.125 mg Ergocalciferol (Drisdol -) 50,000 unit PO We@1000 [facility] Last Admin: 10/06/19 09:10 Dose: 50,000 unit Gabapentin (Neurontin Oral Liquid -) 300 mg PO TID [facility] Last Admin: 10/06/19 06:28 Dose: 300 mg Hydralazine HCl (Apresoline -) 75 mg PO QID [facility] Last Admin: 10/06/19 09:09 Dose: 75 mg Hydralazine HCl (Apresoline Injection -) 10 mg IVPUSH Q6H PRN PRN Reason: HYPERTENSION Last Admin: 10/06/19 06:23 Dose: 10 mg Dextrose (D5w -) 1,000 mls @ 75 mls/hr IV ASDIR [facility] Last Admin: 10/05/19 22:46 Dose: 75 mls/hr Famotidine/Sodium Chloride (Pepcid 20 Mg Premixed Ivpb -) 20 mg in 50 mls @ 100 mls/hr IVPB BID [facility] Last Admin: 10/06/19 09:10 Dose: 100 mls/hr Insulin Aspart (Novolog Vial Sliding Scale -) 1 vial SQ ACHS [facility]; Protocol Last Admin: 10/06/19 06:27 Dose: 2 units Levalbuterol HCl (Xopenex) 0.63 mg IH RTID [facility] Last Admin: 10/06/19 07:43 Dose: 0.63 mg Lisinopril (Prinivil) 5 mg PO DAILY [facility] Last Admin: 10/06/19 09:09 Dose: 5 mg Melatonin (Melatonin) 10 mg PO HS [facility] Last Admin: 10/05/19 22:12 Dose: Not Given Metoprolol Tartrate (Lopressor -) 200 mg PO BID [facility] Last Admin: 10/06/19 09:08 Dose: 200 mg Verapamil HCl (Calan Sr -) 240 mg PO DAILY [facility] Last Admin: 10/06/19 09:09 Dose: 240 mg Verapamil HCl (Calan Injection -) 5 mg IVPUSH Q6H PRN PRN Reason: TACHYCARDIA - Objective Vital Signs: Vital Signs Temperature 98.4 F 10/06/19 06:10 Pulse Rate 144 H 10/06/19 09:09 Respiratory Rate 28 H 10/06/19 09:00 Blood Pressure 152/96 10/06/19 09:00 O2 Sat by Pulse Oximetry (%) 98 10/06/19 08:15 Constitutional: Yes: Mild Distress Cardiovascular: Yes: Tachycardia, Pulse Irregular Respiratory: Yes: Cough, On Nasal O2, Rhonchi Gastrointestinal: Yes: Soft Genitourinary: Yes: Incontinence Edema: No ...Motor Strength: LLE, RLE Labs: CBC, BMP 10/05/19 05:20 10/05/19 05:20 INR, PTT INR 1.16 (0.83-1.09) H 09/30/19 06:18 Fibrinogen 247.0 mg/dL (238-498) 09/30/19 06:18 Problem List - Problems (1) Acute exacerbation of COPD with asthma Code(s): J44.1 - CHRONIC OBSTRUCTIVE PULMONARY DISEASE W (ACUTE) EXACERBATION; J45.901 - UNSPECIFIED ASTHMA WITH (ACUTE) EXACERBATION (2) Acute respiratory failure Code(s): J96.00 - ACUTE RESPIRATORY FAILURE, UNSP W HYPOXIA OR HYPERCAPNIA (3) Influenza A Code(s): J10.1 - FLU DUE TO OTH IDENT INFLUENZA VIRUS W OTH RESP MANIFEST (4) Pneumonia Code(s): J18.9 - PNEUMONIA, UNSPECIFIED ORGANISM Qualifiers: Pneumonia type: due to unspecified organism Laterality: unspecified laterality Lung location: unspecified part of lung Qualified Code(s): J18.9 - Pneumonia, unspecified organism (5) JOSEPH (acute kidney injury) Code(s): N17.9 - ACUTE KIDNEY FAILURE, UNSPECIFIED (6) Abnormal CT of the chest Code(s): R93.89 - ABNORMAL FINDINGS ON DX IMAGING OF OTH BODY STRUCTURES (7) Acute exacerbation of chronic obstructive pulmonary disease (COPD) Code(s): J44.1 - CHRONIC OBSTRUCTIVE PULMONARY DISEASE W (ACUTE) EXACERBATION (8) Acute kidney injury superimposed on CKD Code(s): N17.9 - ACUTE KIDNEY FAILURE, UNSPECIFIED; N18.9 - CHRONIC KIDNEY DISEASE, UNSPECIFIED (9) Acute on chronic diastolic (congestive) heart failure Code(s): I50.33 - ACUTE ON CHRONIC DIASTOLIC (CONGESTIVE) HEART FAILURE (10) Afib Code(s): I48.91 - UNSPECIFIED ATRIAL FIBRILLATION Qualifiers: Atrial fibrillation type: unspecified Qualified Code(s): I48.91 - Unspecified atrial fibrillation (11) Anxiety and depression Code(s): F41.9 - ANXIETY DISORDER, UNSPECIFIED; F32.9 - MAJOR DEPRESSIVE DISORDER, SINGLE EPISODE, UNSPECIFIED (12) Leg edema Code(s): R60.0 - LOCALIZED EDEMA (13) Cigarette nicotine dependence Code(s): F17.200 - NICOTINE DEPENDENCE, UNSPECIFIED, UNCOMPLICATED Assessment/Plan DIGOXIN STARTED FOR TACHYCARDIA HEART RATE CURRENTLY 77/MIN IV TAMIFLU AND IVF STOPPED WILL CHANGE TO PO MEDS AND PO DIET STEROIDS IV/NEBS 02 SUPPORT AIRVO PT EVAL OOB TO CHAIR ISOLATION RESP DROPLETS FOR INFLUENZA REMOVED WILL NEED SNF PLACEMENT PT EVAL
--- NOTE | 2019-10-06 11:46 | PN ---
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, Physician History of Present Illness: Pt seen and examined at bedside. She is awake but not eating much. SHe denies shortness of breath. - Current Medication List Current Medications: Active Medications Acetaminophen (Tylenol Oral Solution -) 1,000 mg PO Q6H PRN PRN Reason: FEVER Apixaban (Eliquis -) 2.5 mg PO BID [facility] Last Admin: 10/06/19 09:09 Dose: 2.5 mg Budesonide/Formoterol Fumarate (Symbicort 80/4.5mcg -) 2 puff IH BID [facility] Last Admin: 10/06/19 09:24 Dose: 2 puff Bupropion HCl (Wellbutrin Xl -) 300 mg PO DAILY [facility] Last Admin: 10/06/19 09:10 Dose: 300 mg Chlorhexidine Gluconate (Hibiclens For Decolonization -) 1 applic TP HS [facility] Last Admin: 10/05/19 22:12 Dose: 1 applic Chlorhexidine Gluconate (Peridex -) 15 ml MM BID [facility] Last Admin: 10/06/19 09:10 Dose: 15 ml Digoxin (Lanoxin -) 0.125 mg PO DAILY [facility] Last Admin: 10/06/19 09:09 Dose: 0.125 mg Ergocalciferol (Drisdol -) 50,000 unit PO We@1000 [facility] Last Admin: 10/06/19 09:10 Dose: 50,000 unit Gabapentin (Neurontin Oral Liquid -) 300 mg PO TID [facility] Last Admin: 10/06/19 06:28 Dose: 300 mg Hydralazine HCl (Apresoline -) 75 mg PO QID [facility] Last Admin: 10/06/19 09:09 Dose: 75 mg Hydralazine HCl (Apresoline Injection -) 10 mg IVPUSH Q6H PRN PRN Reason: HYPERTENSION Last Admin: 10/06/19 06:23 Dose: 10 mg Dextrose (D5w -) 1,000 mls @ 75 mls/hr IV ASDIR [facility] Last Admin: 10/05/19 22:46 Dose: 75 mls/hr Famotidine/Sodium Chloride (Pepcid 20 Mg Premixed Ivpb -) 20 mg in 50 mls @ 100 mls/hr IVPB BID [facility] Last Admin: 10/06/19 09:10 Dose: 100 mls/hr Insulin Aspart (Novolog Vial Sliding Scale -) 1 vial SQ ACHS [facility]; Protocol Last Admin: 10/06/19 06:27 Dose: 2 units Levalbuterol HCl (Xopenex) 0.63 mg IH RTID [facility] Last Admin: 10/06/19 07:43 Dose: 0.63 mg Lisinopril (Prinivil) 5 mg PO DAILY [facility] Last Admin: 10/06/19 09:09 Dose: 5 mg Melatonin (Melatonin) 10 mg PO HS [facility] Last Admin: 10/05/19 22:12 Dose: Not Given Metoprolol Tartrate (Lopressor -) 200 mg PO BID [facility] Last Admin: 10/06/19 09:08 Dose: 200 mg Verapamil HCl (Calan Sr -) 240 mg PO DAILY [facility] Last Admin: 10/06/19 09:09 Dose: 240 mg Verapamil HCl (Calan Injection -) 5 mg IVPUSH Q6H PRN PRN Reason: TACHYCARDIA - Objective Vital Signs: Vital Signs Temperature 98.4 F 10/06/19 06:10 Pulse Rate 144 H 10/06/19 09:09 Respiratory Rate 28 H 10/06/19 09:00 Blood Pressure 152/96 10/06/19 09:00 O2 Sat by Pulse Oximetry (%) 98 10/06/19 08:15 Constitutional: Yes: Calm Eyes: Yes: Conjunctiva Clear HENT: Yes: Atraumatic Cardiovascular: Yes: S1, S2 Respiratory: Yes: CTA Bilaterally Gastrointestinal: Yes: Soft Genitourinary: Yes: WNL Musculoskeletal: Yes: WNL Edema: No Neurological: Yes: Oriented Psychiatric: Yes: Oriented Labs: CBC, BMP 10/05/19 05:20 10/05/19 05:20 INR, PTT INR 1.16 (0.83-1.09) H 09/30/19 06:18 Fibrinogen 247.0 mg/dL (238-498) 09/30/19 06:18 Problem List - Problems (1) CKD (chronic kidney disease) Code(s): N18.9 - CHRONIC KIDNEY DISEASE, UNSPECIFIED Assessment/Plan Current Medications Generic Name Dose Route Start Last Admin Trade Name Freq PRN Reason Stop Dose Admin Acetaminophen 1,000 mg 10/05/19 18:21 Tylenol Oral Solution - PO Q6H PRN FEVER Apixaban 2.5 mg 10/05/19 22:00 10/06/19 09:09 Eliquis - PO 2.5 mg BID JOLENE Administration Budesonide/Formoterol Fumarate 2 puff 10/05/19 22:00 10/06/19 09:24 Symbicort 80/4.5mcg - IH 2 puff BID [facility]OLENE Administration Bupropion HCl 300 mg 10/06/19 10:00 10/06/19 09:10 Wellbutrin Xl - PO 300 mg DAILY [facility] Administration Chlorhexidine Gluconate 1 applic 10/05/19 22:00 10/05/19 22:12 Hibiclens For Decolonization - TP 1 applic HS [facility] Administration Chlorhexidine Gluconate 15 ml 10/05/19 22:00 10/06/19 09:10 Peridex - MM 15 ml BID [facility] Administration Digoxin 0.125 mg 10/06/19 10:00 10/06/19 09:09 Lanoxin - PO 0.125 mg DAILY [facility] Administration Ergocalciferol 50,000 unit 10/06/19 10:00 10/06/19 09:10 Drisdol - PO 50,000 unit We@1000 [facility] Administration Gabapentin 300 mg 10/05/19 22:00 10/06/19 06:28 Neurontin Oral Liquid - PO 300 mg TID [facility] Administration Hydralazine HCl 75 mg 10/05/19 22:00 10/06/19 09:09 Apresoline - PO 75 mg QID [facility] Administration Hydralazine HCl 10 mg 10/05/19 18:21 10/06/19 06:23 Apresoline Injection - IVPUSH 10 mg Q6H PRN Administration HYPERTENSION Dextrose 1,000 mls @ 75 mls/hr 10/05/19 18:21 10/05/19 22:46 D5w - IV 75 mls/hr ASDIR [facility] Administration Famotidine/Sodium Chloride 20 mg in 50 mls @ 100 mls/hr 10/05/19 22:00 09:10 Pepcid 20 Mg Premixed Ivpb - IVPB 100 mls/hr BID [facility] Administration Insulin Aspart 1 vial 10/05/19 22:00 10/06/19 06:27 Novolog Vial Sliding Scale - SQ 2 units ACHS [facility] Administration Protocol Levalbuterol HCl 0.63 mg 10/05/19 20:00 10/06/19 07:43 Xopenex IH 0.63 mg RTID [facility] Administration Lisinopril 5 mg 10/06/19 10:00 10/06/19 09:09 Prinivil PO 5 mg DAILY [facility] Administration Melatonin 10 mg 10/05/19 22:00 10/05/19 22:12 Melatonin PO Not Given HS [facility] Metoprolol Tartrate 200 mg 10/05/19 22:00 10/06/19 09:08 Lopressor - PO 200 mg BID [facility] Administration Verapamil HCl 240 mg 10/06/19 10:00 10/06/19 09:09 Calan Sr - PO 240 mg DAILY [facility] Administration Verapamil HCl 5 mg 10/05/19 18:21 Calan Injection - IVPUSH Q6H PRN TACHYCARDIA Impression 1. CKD 2. CHF 3. a-fib 4. lower ext edema 5. COPD 6. active smoker 7. non compliance 8. acute resp failure 9. influenza 10. hypernatremia Plan - check bmp - encourage po intake - monitor volume status - monitor lytes - avoid nsaids - repeat bp after am meds - cardio follow up for rate control
--- NOTE | 2019-10-06 12:11 | PN ---
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 (short form) - Note 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: Awake and alert on NC O2. No acute events overnight. Still with congested cough. No CP. Intake & Output 10/03/19 10/04/19 10/05/19 10/06/19 23:59 23:59 23:59 23:59 Intake Total 1390 1329 2175 950 Output Total 2000 1000 600 Balance -171 889 1566 950 Weight 135 lb 11.2 oz 130 lb 14.4 oz 134 lb 4.8 oz Last Vital Signs Temp Pulse Resp BP Pulse Ox 98.4 F 72 23 H 155/71 97 10/06/19 06:10 10/06/19 11:00 10/06/19 11:00 10/06/19 11:00 10/06/19 09:00 Active Medications Acetaminophen (Tylenol Oral Solution -) 1,000 mg PO Q6H PRN PRN Reason: FEVER Apixaban (Eliquis -) 2.5 mg PO BID [facility] Last Admin: 10/06/19 09:09 Dose: 2.5 mg Budesonide/Formoterol Fumarate (Symbicort 80/4.5mcg -) 2 puff IH BID [facility] Last Admin: 10/06/19 09:24 Dose: 2 puff Bupropion HCl (Wellbutrin Xl -) 300 mg PO DAILY [facility] Last Admin: 10/06/19 09:10 Dose: 300 mg Chlorhexidine Gluconate (Hibiclens For Decolonization -) 1 applic TP HS [facility] Last Admin: 10/05/19 22:12 Dose: 1 applic Chlorhexidine Gluconate (Peridex -) 15 ml MM BID [facility] Last Admin: 10/06/19 09:10 Dose: 15 ml Digoxin (Lanoxin -) 0.125 mg PO DAILY [facility] Last Admin: 10/06/19 09:09 Dose: 0.125 mg Ergocalciferol (Drisdol -) 50,000 unit PO We@1000 [facility] Last Admin: 10/06/19 09:10 Dose: 50,000 unit Gabapentin (Neurontin Oral Liquid -) 300 mg PO TID [facility] Last Admin: 10/06/19 06:28 Dose: 300 mg Hydralazine HCl (Apresoline -) 75 mg PO QID [facility] Last Admin: 10/06/19 09:09 Dose: 75 mg Hydralazine HCl (Apresoline Injection -) 10 mg IVPUSH Q6H PRN PRN Reason: HYPERTENSION Last Admin: 10/06/19 06:23 Dose: 10 mg Dextrose (D5w -) 1,000 mls @ 75 mls/hr IV ASDIR [facility] Last Admin: 10/05/19 22:46 Dose: 75 mls/hr Famotidine/Sodium Chloride (Pepcid 20 Mg Premixed Ivpb -) 20 mg in 50 mls @ 100 mls/hr IVPB BID [facility] Last Admin: 10/06/19 09:10 Dose: 100 mls/hr Insulin Aspart (Novolog Vial Sliding Scale -) 1 vial SQ ACHS [facility]; Protocol Last Admin: 10/06/19 06:27 Dose: 2 units Levalbuterol HCl (Xopenex) 0.63 mg IH RTID [facility] Last Admin: 10/06/19 07:43 Dose: 0.63 mg Lisinopril (Prinivil) 5 mg PO DAILY [facility] Last Admin: 10/06/19 09:09 Dose: 5 mg Melatonin (Melatonin) 10 mg PO HS [facility] Last Admin: 10/05/19 22:12 Dose: Not Given Metoprolol Tartrate (Lopressor -) 200 mg PO BID [facility] Last Admin: 10/06/19 09:08 Dose: 200 mg Verapamil HCl (Calan Sr -) 240 mg PO DAILY [facility] Last Admin: 10/06/19 09:09 Dose: 240 mg Verapamil HCl (Calan Injection -) 5 mg IVPUSH Q6H PRN PRN Reason: TACHYCARDIA Gen: Awake and alert, on NC O2 HEENT: Dry MM Heart: Rapid AFib Lung: scattered bilateral rhonchi, no wheeze Abd: soft, nontender Ext: + edema Neuro: Awake and responsive, non-focal Laboratory Results - last 24 hr 10/05/19 10/05/19 10/05/19 12:29 17:06 21:08 POC Glucometer 149 144 129 10/06/19 06:07 POC Glucometer 163 ASSESSMENT AND PLAN: Acute on Chronic Hypoxic and Hypercapneic Respiratory Failure Influenza A Pneumonia Acute COPD Exacerbation Atrial Fibrillation with RVR LV Diastolic Dysfunction HTN DM CKD Obstructive Sleep Apnea - NC O2 as tolerated - Completed tamiflu - Monitor off Medrol - Inhaled bronchodilators standing and PRN - O2 to keep SpO2 >90% - Rate control - Continue anticoagulation - PO as tolerated - Aspiration precautions - DVT/GI prophylaxis - Symbicort BID - DC planning Dr Montiel
[2019-10-06] MEDS ORDERED: INSULIN (NOVOLOG) ASPART 100 UNITS/ML 10ML VIAL ONE (12:15)
--- NOTE | 2019-10-06 12:56 | EKG ---
Test Reason : Blood Pressure : / mmHG Vent. Rate : 063 BPM Atrial Rate : 258 BPM P-R Int : 000 ms QRS Dur : 106 ms QT Int : 384 ms P-R-T Axes : 000 -50 150 degrees QTc Int : 392 ms ATRIAL FIBRILLATION LEFT ANTERIOR FASCICULAR BLOCK MODERATE VOLTAGE CRITERIA FOR LVH, MAY BE NORMAL VARIANT ABNORMAL ECG WHEN COMPARED WITH ECG OF 13-JUL-2019 18:04, T WAVE INVERSION NOW EVIDENT IN ANTERIOR LEADS QT HAS SHORTENED Confirmed by MD ALLEGRA, NIXON ([id number]) on 10/06/2019 12:56:15 PM Referred By: Enriqueta ESTES Confirmed By:NIXON DINH MD
--- NOTE | 2019-10-06 14:28 | PN ---
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, Physician Chief Complaint: Afib with controlled VR's History of Present Illness: 59 year old female with a PMH of hypertension, AFIB, CHF, COPD, DM, sleep apnea , and CKD. She presented to the ER with SOB, respiratory failure, was intubated due to hypercapneic respiratory failure now extubated. Found with influeza, HCAP and atrial fibrillation with RVR. Echocardiogram 04/26/19 showed normal LV funciton, moderate severe AI, moderate MR, severe TR. - Current Medication List Current Medications: Active Medications Acetaminophen (Tylenol Oral Solution -) 1,000 mg PO Q6H PRN PRN Reason: FEVER Apixaban (Eliquis -) 2.5 mg PO BID [facility] Last Admin: 10/06/19 09:09 Dose: 2.5 mg Budesonide/Formoterol Fumarate (Symbicort 80/4.5mcg -) 2 puff IH BID [facility] Last Admin: 10/06/19 09:24 Dose: 2 puff Bupropion HCl (Wellbutrin Xl -) 300 mg PO DAILY [facility] Last Admin: 10/06/19 09:10 Dose: 300 mg Chlorhexidine Gluconate (Hibiclens For Decolonization -) 1 applic TP HS [facility] Last Admin: 10/05/19 22:12 Dose: 1 applic Chlorhexidine Gluconate (Peridex -) 15 ml MM BID [facility] Last Admin: 10/06/19 09:10 Dose: 15 ml Digoxin (Lanoxin -) 0.125 mg PO DAILY [facility] Last Admin: 10/06/19 09:09 Dose: 0.125 mg Ergocalciferol (Drisdol -) 50,000 unit PO We@1000 [facility] Last Admin: 10/06/19 09:10 Dose: 50,000 unit Gabapentin (Neurontin Oral Liquid -) 300 mg PO TID [facility] Last Admin: 10/06/19 06:28 Dose: 300 mg Hydralazine HCl (Apresoline -) 75 mg PO QID [facility] Last Admin: 10/06/19 13:56 Dose: 75 mg Hydralazine HCl (Apresoline Injection -) 10 mg IVPUSH Q6H PRN PRN Reason: HYPERTENSION Last Admin: 10/06/19 06:23 Dose: 10 mg Dextrose (D5w -) 1,000 mls @ 75 mls/hr IV ASDIR [facility] Last Admin: 10/05/19 22:46 Dose: 75 mls/hr Famotidine/Sodium Chloride (Pepcid 20 Mg Premixed Ivpb -) 20 mg in 50 mls @ 100 mls/hr IVPB BID [facility] Last Admin: 10/06/19 09:10 Dose: 100 mls/hr Insulin Aspart (Novolog Vial Sliding Scale -) 1 vial SQ ACHS [facility]; Protocol Last Admin: 10/06/19 12:19 Dose: 2 units Levalbuterol HCl (Xopenex) 0.63 mg IH RTID [facility] Last Admin: 10/06/19 07:43 Dose: 0.63 mg Lisinopril (Prinivil) 5 mg PO DAILY [facility] Last Admin: 10/06/19 09:09 Dose: 5 mg Melatonin (Melatonin) 10 mg PO HS [facility] Last Admin: 10/05/19 22:12 Dose: Not Given Metoprolol Tartrate (Lopressor -) 200 mg PO BID [facility] Last Admin: 10/06/19 09:08 Dose: 200 mg Verapamil HCl (Calan Sr -) 240 mg PO DAILY [facility] Last Admin: 10/06/19 09:09 Dose: 240 mg Verapamil HCl (Calan Injection -) 5 mg IVPUSH Q6H PRN PRN Reason: TACHYCARDIA - Objective Vital Signs: Vital Signs Temperature 98.4 F 10/06/19 06:10 Pulse Rate 72 10/06/19 11:00 Respiratory Rate 23 H 10/06/19 11:00 Blood Pressure 155/71 10/06/19 11:00 O2 Sat by Pulse Oximetry (%) 97 10/06/19 09:00 Neck: Yes: Supple Cardiovascular: Yes: Pulse Irregular, S1, S2. No: JVD Respiratory: Yes: Wheezes Gastrointestinal: Yes: Soft Edema: No Labs: CBC, BMP 10/05/19 05:20 10/05/19 05:20 INR, PTT INR 1.16 (0.83-1.09) H 09/30/19 06:18 Fibrinogen 247.0 mg/dL (238-498) 09/30/19 06:18 Problem List - Problems (1) Afib Code(s): I48.91 - UNSPECIFIED ATRIAL FIBRILLATION Qualifiers: Atrial fibrillation type: unspecified Qualified Code(s): I48.91 - Unspecified atrial fibrillation Assessment/Plan 59 year old female with a PMH of hypertension, AFIB, CHF, COPD, DM, sleep apnea , and CKD. She presented to the ER with SOB, respiratory failure, was intubated due to hypercapneic respiratory failure. Found with influeza, HCAP and atrial fibrillation with RVR. Echocardiogram 04/26/19 showed normal LV funciton, moderate severe AI, moderate MR, severe TR. Atrial Fibrillation -rates well controlled on metoprolol, verapamil, and digoxin. Monitor on tele as in past had bradycardia in sinus. On Apixaban 2.5 mg PO Q12h for AC On hydralazine and lisinopril with improved htn.
[2019-10-06 15:14] VITALS: BMI 23.7
[2019-10-06] MEDS: DEXTROSE 5%-WATER - 1,000 ML IV SCH (18:33)
[2019-10-06] MEDS: MELATONIN 5 MG TABLETS PO SCH (21:18)
[2019-10-06] MEDS: CHLORHEXIDINE GLUCONATE 4% CLEANSER FOR DECOLONIZATION TP SCH (21:18)
[2019-10-07] MEDS ORDERED: PT OWN MED DRAWER 7, Y5N ONE ×6 (06:09→21:59)
[2019-10-07] MEDS: GABAPENTIN 250 MG/5 ML ORAL SOLUTION, 470 ML BOTTLE PO SCH ×3 (06:13→22:01)
[2019-10-07] MEDS: INSULIN SLIDING SCALE (NOVOLOG) 1 VIAL SQ SCH ×4 (06:14→21:50)
[2019-10-07 06:47] LABS: HEMATOCRIT 35.1 % (32.4-45.2); HEMOGLOBIN 11.5 GM/dL (10.7-15.3); MCH 29.4 pg (25.7-33.7); MCHC 32.6 g/dl (32.0-36.0); MEAN CELL VOLUME 90.2 fl (80-96); MEAN PLT VOLUME 11.5 fl (7.5-11.1); PLATELET COUNT 82 K/MM3 (134-434); RDW 15.1 % (11.6-15.6); WHITE BLOOD COUNT 8.8 K/mm3 (4.0-10.0)
[2019-10-07 07:03] LABS: ALBUMIN 2.9 g/dl (3.4-5.0); BLOOD UREA NITROGEN 41.1 mg/dL (7-18); CALCIUM 8.8 mg/dL (8.5-10.1); CREATININE 1.2 mg/dL (0.55-1.3); MAGNESIUM 2.4 mg/dL (1.8-2.4); POTASSIUM 3.4 mmol/L (3.5-5.1); TOT PROT 6.1 g/dl (6.4-8.2)
[2019-10-07] MEDS: LEVALBUTEROL HCL 0.63 MG/3 ML VIAL.NEB. IH SCH ×3 (09:40→20:54)
[2019-10-07] MEDS: METOPROLOL TARTRATE 50 MG TABLET (FP) PO SCH ×2 (09:53→21:49)
[2019-10-07] MEDS: LISINOPRIL 5 MG TABLET (FP) PO SCH (09:53)
[2019-10-07] MEDS: DIGOXIN 0.125 MG TABLET (FP) PO SCH (09:53)
[2019-10-07] MEDS: hydrALAZINE HCL 25 MG TABLET (FP) PO SCH ×4 (09:53→21:49)
[2019-10-07] MEDS: APIXABAN 2.5 MG TABLET PO SCH ×2 (09:53→21:49)
[2019-10-07] MEDS: FAMOTIDINE 20 MG/50 ML IVPB 20 MG/50 ML MG IVPB SCH ×2 (09:54→21:50)
[2019-10-07] MEDS: VERAPAMIL HCL 240 MG E.R. TABLET PO SCH (10:00)
[2019-10-07] MEDS: CHLORHEXIDINE GLUCONATE 0.12% 15ML CUP MM SCH ×2 (10:01→21:50)
[2019-10-07] MEDS: BUDESONIDE/FORMETEROL FUMARATE 80/4.5 mcg INHALER IH SCH ×2 (10:01→21:51)
[2019-10-07] MEDS ORDERED: POTASSIUM CHLORIDE TABS 20 MEQ TABLET.ER (FP) PO ONE (10:08)
--- NOTE | 2019-10-07 10:08 | PN ---
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, Physician Chief Complaint: ASLEEP, EVENTS AND NOTES REVIEWED HEART RATE STILL IRREGULAR - Current Medication List Current Medications: Active Medications Acetaminophen (Tylenol Oral Solution -) 1,000 mg PO Q6H PRN PRN Reason: FEVER Apixaban (Eliquis -) 2.5 mg PO BID [facility] Last Admin: 10/06/19 21:18 Dose: 2.5 mg Budesonide/Formoterol Fumarate (Symbicort 80/4.5mcg -) 2 puff IH BID [facility] Last Admin: 10/06/19 21:19 Dose: 2 puff Bupropion HCl (Wellbutrin Xl -) 300 mg PO DAILY [facility] Last Admin: 10/06/19 09:10 Dose: 300 mg Chlorhexidine Gluconate (Hibiclens For Decolonization -) 1 applic TP HS [facility] Last Admin: 10/06/19 21:18 Dose: 1 applic Chlorhexidine Gluconate (Peridex -) 15 ml MM BID [facility] Last Admin: 10/06/19 21:19 Dose: 15 ml Digoxin (Lanoxin -) 0.125 mg PO DAILY [facility] Last Admin: 10/06/19 09:09 Dose: 0.125 mg Ergocalciferol (Drisdol -) 50,000 unit PO We@1000 [facility] Last Admin: 10/06/19 09:10 Dose: 50,000 unit Gabapentin (Neurontin Oral Liquid -) 300 mg PO TID [facility] Last Admin: 10/07/19 06:13 Dose: 300 mg Hydralazine HCl (Apresoline -) 75 mg PO QID [facility] Last Admin: 10/06/19 21:18 Dose: 75 mg Hydralazine HCl (Apresoline Injection -) 10 mg IVPUSH Q6H PRN PRN Reason: HYPERTENSION Last Admin: 10/06/19 06:23 Dose: 10 mg Dextrose (D5w -) 1,000 mls @ 75 mls/hr IV ASDIR [facility] Last Admin: 10/06/19 18:33 Dose: 75 mls/hr Famotidine/Sodium Chloride (Pepcid 20 Mg Premixed Ivpb -) 20 mg in 50 mls @ 100 mls/hr IVPB BID [facility] Last Admin: 10/06/19 21:19 Dose: 100 mls/hr Insulin Aspart (Novolog Vial Sliding Scale -) 1 vial SQ [facility]; Protocol Last Admin: 10/07/19 06:14 Dose: 2 units Levalbuterol HCl (Xopenex) 0.63 mg IH RTID [facility] Last Admin: 10/07/19 09:40 Dose: 0.63 mg Lisinopril (Prinivil) 5 mg PO DAILY [facility] Last Admin: 10/06/19 09:09 Dose: 5 mg Melatonin (Melatonin) 10 mg PO HS [facility] Last Admin: 10/06/19 21:18 Dose: 10 mg Metoprolol Tartrate (Lopressor -) 200 mg PO BID [facility] Last Admin: 10/06/19 21:18 Dose: 200 mg Verapamil HCl (Calan Sr -) 240 mg PO DAILY [facility] Last Admin: 10/06/19 09:09 Dose: 240 mg Verapamil HCl (Calan Injection -) 5 mg IVPUSH Q6H PRN PRN Reason: TACHYCARDIA - Objective Vital Signs: Vital Signs Temperature 97.9 F 10/07/19 06:45 Pulse Rate 88 10/07/19 09:00 Respiratory Rate 21 H 10/07/19 06:45 Blood Pressure 141/116 H 10/07/19 06:45 O2 Sat by Pulse Oximetry (%) 100 10/07/19 09:00 Constitutional: Yes: Mild Distress Cardiovascular: Yes: Tachycardia, Pulse Irregular Respiratory: Yes: Diminished, On Nasal O2, Rhonchi Genitourinary: Yes: Incontinence Musculoskeletal: Yes: Muscle Weakness Edema: No Neurological: Yes: Pre-Existing Deficit Labs: CBC, BMP 10/07/19 06:00 10/07/19 06:00 INR, PTT INR 1.16 (0.83-1.09) H 09/30/19 06:18 Fibrinogen 247.0 mg/dL (238-498) 09/30/19 06:18 Problem List - Problems (1) Acute exacerbation of COPD with asthma Code(s): J44.1 - CHRONIC OBSTRUCTIVE PULMONARY DISEASE W (ACUTE) EXACERBATION; J45.901 - UNSPECIFIED ASTHMA WITH (ACUTE) EXACERBATION (2) Acute respiratory failure Code(s): J96.00 - ACUTE RESPIRATORY FAILURE, UNSP W HYPOXIA OR HYPERCAPNIA (3) Influenza A Code(s): J10.1 - FLU DUE TO OTH IDENT INFLUENZA VIRUS W OTH RESP MANIFEST (4) Pneumonia Code(s): J18.9 - PNEUMONIA, UNSPECIFIED ORGANISM Qualifiers: Pneumonia type: due to unspecified organism Laterality: unspecified laterality Lung location: unspecified part of lung Qualified Code(s): J18.9 - Pneumonia, unspecified organism (5) JOSEPH (acute kidney injury) Code(s): N17.9 - ACUTE KIDNEY FAILURE, UNSPECIFIED (6) Abnormal CT of the chest Code(s): R93.89 - ABNORMAL FINDINGS ON DX IMAGING OF OTH BODY STRUCTURES (7) Acute exacerbation of chronic obstructive pulmonary disease (COPD) Code(s): J44.1 - CHRONIC OBSTRUCTIVE PULMONARY DISEASE W (ACUTE) EXACERBATION (8) Acute kidney injury superimposed on CKD Code(s): N17.9 - ACUTE KIDNEY FAILURE, UNSPECIFIED; N18.9 - CHRONIC KIDNEY DISEASE, UNSPECIFIED (9) Acute on chronic diastolic (congestive) heart failure Code(s): I50.33 - ACUTE ON CHRONIC DIASTOLIC (CONGESTIVE) HEART FAILURE (10) Afib Code(s): I48.91 - UNSPECIFIED ATRIAL FIBRILLATION Qualifiers: Atrial fibrillation type: unspecified Qualified Code(s): I48.91 - Unspecified atrial fibrillation (11) Anxiety and depression Code(s): F41.9 - ANXIETY DISORDER, UNSPECIFIED; F32.9 - MAJOR DEPRESSIVE DISORDER, SINGLE EPISODE, UNSPECIFIED (12) Leg edema Code(s): R60.0 - LOCALIZED EDEMA (13) Cigarette nicotine dependence Code(s): F17.200 - NICOTINE DEPENDENCE, UNSPECIFIED, UNCOMPLICATED Assessment/Plan TREATED FOR INFLUENZA STILL IN ICU FOR IRREGULAR CARDIAC RYTHM ON DIGOXIN AND VERAPAMIL/METOPROLOL FLUCTUATING HEART RATE 80-120'S/MIN NEBS STEROIDS 02 SUPPORT OOB TO CHAIR SNF
--- NOTE | 2019-10-07 15:27 | PN ---
Progress Note, Physician Chief Complaint: Afib with controlled VR's History of Present Illness: 59 year old female with a PMH of hypertension, AFIB, CHF, COPD, DM, sleep apnea , and CKD. She presented to the ER with SOB, respiratory failure, was intubated due to hypercapneic respiratory failure now extubated. Found with influeza, HCAP and atrial fibrillation with RVR. Echocardiogram 04/26/19 showed normal LV funciton, moderate severe AI, moderate MR, severe TR. - Current Medication List Current Medications: Active Medications Acetaminophen (Tylenol Oral Solution -) 1,000 mg PO Q6H PRN PRN Reason: FEVER Apixaban (Eliquis -) 2.5 mg PO BID [facility] Last Admin: 10/07/19 09:53 Dose: 2.5 mg Budesonide/Formoterol Fumarate (Symbicort 80/4.5mcg -) 2 puff IH BID [facility] Last Admin: 10/07/19 10:01 Dose: 2 puff Bupropion HCl (Wellbutrin Xl -) 300 mg PO DAILY [facility] Last Admin: 10/07/19 10:00 Dose: 300 mg Chlorhexidine Gluconate (Hibiclens For Decolonization -) 1 applic TP HS [facility] Last Admin: 10/06/19 21:18 Dose: 1 applic Chlorhexidine Gluconate (Peridex -) 15 ml MM BID [facility] Last Admin: 10/07/19 10:01 Dose: 15 ml Digoxin (Lanoxin -) 0.125 mg PO DAILY [facility] Last Admin: 10/07/19 09:53 Dose: 0.125 mg Ergocalciferol (Drisdol -) 50,000 unit PO We@1000 [facility] Last Admin: 10/06/19 09:10 Dose: 50,000 unit Gabapentin (Neurontin Oral Liquid -) 300 mg PO TID [facility] Last Admin: 10/07/19 06:13 Dose: 300 mg Hydralazine HCl (Apresoline -) 75 mg PO QID [facility] Last Admin: 10/07/19 09:53 Dose: 75 mg Hydralazine HCl (Apresoline Injection -) 10 mg IVPUSH Q6H PRN PRN Reason: HYPERTENSION Last Admin: 10/06/19 06:23 Dose: 10 mg Dextrose (D5w -) 1,000 mls @ 75 mls/hr IV ASDIR [facility] Last Admin: 10/06/19 18:33 Dose: 75 mls/hr Famotidine/Sodium Chloride (Pepcid 20 Mg Premixed Ivpb -) 20 mg in 50 mls @ 100 mls/hr IVPB BID [facility] Last Admin: 10/07/19 09:54 Dose: 100 mls/hr Insulin Aspart (Novolog Vial Sliding Scale -) 1 vial SQ ACHS [facility]; Protocol Last Admin: 10/07/19 11:43 Dose: Not Given Levalbuterol HCl (Xopenex) 0.63 mg IH RTID [facility] Last Admin: 10/07/19 09:40 Dose: 0.63 mg Lisinopril (Prinivil) 5 mg PO DAILY [facility] Last Admin: 10/07/19 09:53 Dose: 5 mg Melatonin (Melatonin) 10 mg PO HS [facility] Last Admin: 10/06/19 21:18 Dose: 10 mg Metoprolol Tartrate (Lopressor -) 200 mg PO BID [facility] Last Admin: 10/07/19 09:53 Dose: 200 mg Verapamil HCl (Calan Sr -) 240 mg PO DAILY [facility] Last Admin: 10/07/19 10:00 Dose: 240 mg Verapamil HCl (Calan Injection -) 5 mg IVPUSH Q6H PRN PRN Reason: TACHYCARDIA - Objective Vital Signs: Vital Signs Temperature 97.5 F L 10/07/19 13:47 Pulse Rate 98 H 10/07/19 13:47 Respiratory Rate 22 H 10/07/19 13:47 Blood Pressure 167/87 10/07/19 13:47 O2 Sat by Pulse Oximetry (%) 97 10/07/19 14:27 Constitutional: Yes: No Distress Cardiovascular: Yes: Pulse Irregular, S1, S2 Respiratory: Yes: Wheezes Gastrointestinal: Yes: Soft Edema: No Labs: CBC, BMP 10/07/19 06:00 10/07/19 06:00 INR, PTT INR 1.16 (0.83-1.09) H 09/30/19 06:18 Fibrinogen 247.0 mg/dL (238-498) 09/30/19 06:18 Problem List - Problems (1) Afib Code(s): I48.91 - UNSPECIFIED ATRIAL FIBRILLATION Qualifiers: Atrial fibrillation type: unspecified Qualified Code(s): I48.91 - Unspecified atrial fibrillation Assessment/Plan 59 year old female with a PMH of hypertension, AFIB, CHF, COPD, DM, sleep apnea , and CKD. She presented to the ER with SOB, respiratory failure, was intubated due to hypercapneic respiratory failure. Found with influeza, HCAP and atrial fibrillation with RVR. Echocardiogram 04/26/19 showed normal LV funciton, moderate severe AI, moderate MR, severe TR. Atrial Fibrillation -rates well controlled on metoprolol, verapamil, Will stop digoxin as rates today much improved and on slower side at times. Consider giving verapamil in mid day as not same time as metoprolol On Apixaban 2.5 mg PO Q12h for AC On hydralazine and lisinopril with improved htn. Room to increase hydralazine if needed.
[2019-10-07] MEDS ORDERED: POTASSIUM CHLORIDE ORAL LIQUID 20 MEQ/15 ML PO ONE (15:36)
--- NOTE | 2019-10-07 15:36 | PN ---
Progress Note, Physician History of Present Illness: Pt seen and examined at bedside. She is awake but confused. She denies shortness of breath. - Current Medication List Current Medications: Active Medications Acetaminophen (Tylenol Oral Solution -) 1,000 mg PO Q6H PRN PRN Reason: FEVER Apixaban (Eliquis -) 2.5 mg PO BID [facility] Last Admin: 10/07/19 09:53 Dose: 2.5 mg Budesonide/Formoterol Fumarate (Symbicort 80/4.5mcg -) 2 puff IH BID [facility] Last Admin: 10/07/19 10:01 Dose: 2 puff Bupropion HCl (Wellbutrin Xl -) 300 mg PO DAILY [facility] Last Admin: 10/07/19 10:00 Dose: 300 mg Chlorhexidine Gluconate (Hibiclens For Decolonization -) 1 applic TP HS [facility] Last Admin: 10/06/19 21:18 Dose: 1 applic Chlorhexidine Gluconate (Peridex -) 15 ml MM BID [facility] Last Admin: 10/07/19 10:01 Dose: 15 ml Ergocalciferol (Drisdol -) 50,000 unit PO We@1000 [facility] Last Admin: 10/06/19 09:10 Dose: 50,000 unit Gabapentin (Neurontin Oral Liquid -) 300 mg PO TID [facility] Last Admin: 10/07/19 06:13 Dose: 300 mg Hydralazine HCl (Apresoline -) 75 mg PO QID [facility] Last Admin: 10/07/19 09:53 Dose: 75 mg Hydralazine HCl (Apresoline Injection -) 10 mg IVPUSH Q6H PRN PRN Reason: HYPERTENSION Last Admin: 10/06/19 06:23 Dose: 10 mg Dextrose (D5w -) 1,000 mls @ 75 mls/hr IV ASDIR [facility] Last Admin: 10/06/19 18:33 Dose: 75 mls/hr Famotidine/Sodium Chloride (Pepcid 20 Mg Premixed Ivpb -) 20 mg in 50 mls @ 100 mls/hr IVPB BID [facility] Last Admin: 10/07/19 09:54 Dose: 100 mls/hr Insulin Aspart (Novolog Vial Sliding Scale -) 1 vial SQ ACHS [facility]; Protocol Last Admin: 10/07/19 11:43 Dose: Not Given Levalbuterol HCl (Xopenex) 0.63 mg IH RTID [facility] Last Admin: 10/07/19 09:40 Dose: 0.63 mg Lisinopril (Prinivil) 5 mg PO DAILY [facility] Last Admin: 10/07/19 09:53 Dose: 5 mg Melatonin (Melatonin) 10 mg PO HS [facility] Last Admin: 10/06/19 21:18 Dose: 10 mg Metoprolol Tartrate (Lopressor -) 200 mg PO BID [facility] Last Admin: 10/07/19 09:53 Dose: 200 mg Verapamil HCl (Calan Sr -) 240 mg PO DAILY [facility] Last Admin: 10/07/19 10:00 Dose: 240 mg Verapamil HCl (Calan Injection -) 5 mg IVPUSH Q6H PRN PRN Reason: TACHYCARDIA - Objective Vital Signs: Vital Signs Temperature 97.5 F L 10/07/19 13:47 Pulse Rate 98 H 10/07/19 13:47 Respiratory Rate 22 H 10/07/19 13:47 Blood Pressure 167/87 10/07/19 13:47 O2 Sat by Pulse Oximetry (%) 97 10/07/19 14:27 Constitutional: Yes: Calm Eyes: Yes: Conjunctiva Clear HENT: Yes: Atraumatic Cardiovascular: Yes: S1, S2 Respiratory: Yes: On Nasal O2, Rhonchi Gastrointestinal: Yes: Soft Genitourinary: Yes: Incontinence Musculoskeletal: Yes: Muscle Weakness Edema: No Integumentary: Yes: WNL Neurological: Yes: Confusion Labs: CBC, BMP 10/07/19 06:00 10/07/19 06:00 INR, PTT INR 1.16 (0.83-1.09) H 09/30/19 06:18 Fibrinogen 247.0 mg/dL (238-498) 09/30/19 06:18 Problem List - Problems (1) CKD (chronic kidney disease) Code(s): N18.9 - CHRONIC KIDNEY DISEASE, UNSPECIFIED Assessment/Plan Current Medications Generic Name Dose Route Start Last Admin Trade Name Freq PRN Reason Stop Dose Admin Acetaminophen 1,000 mg 10/05/19 18:21 Tylenol Oral Solution - PO Q6H PRN FEVER Apixaban 2.5 mg 10/05/19 22:00 10/07/19 09:53 Eliquis - PO 2.5 mg BID [facility] Administration Budesonide/Formoterol Fumarate 2 puff 10/05/19 22:00 10/07/19 10:01 Symbicort 80/4.5mcg - IH 2 puff BID [facility] Administration Bupropion HCl 300 mg 10/06/19 10:00 10/07/19 10:00 Wellbutrin Xl - PO 300 mg DAILY [facility] Administration Chlorhexidine Gluconate 1 applic 10/05/19 22:00 10/06/19 21:18 Hibiclens For Decolonization - TP 1 applic HS [facility] Administration Chlorhexidine Gluconate 15 ml 10/05/19 22:00 10/07/19 10:01 Peridex - MM 15 ml BID [facility] Administration Ergocalciferol 50,000 unit 10/06/19 10:00 10/06/19 09:10 Drisdol - PO 50,000 unit We@1000 [facility] Administration Gabapentin 300 mg 10/05/19 22:00 10/07/19 06:13 Neurontin Oral Liquid - PO 300 mg TID [facility] Administration Hydralazine HCl 75 mg 10/05/19 22:00 10/07/19 09:53 Apresoline - PO 75 mg QID [facility] Administration Hydralazine HCl 10 mg 10/05/19 18:21 10/06/19 06:23 Apresoline Injection - IVPUSH 10 mg Q6H PRN Administration HYPERTENSION Dextrose 1,000 mls @ 75 mls/hr 10/05/19 18:21 10/06/19 18:33 D5w - IV 75 mls/hr ASDIR [facility] Administration Famotidine/Sodium Chloride 20 mg in 50 mls @ 100 mls/hr 10/05/19 22:00 09:54 Pepcid 20 Mg Premixed Ivpb - IVPB 100 mls/hr BID [facility] Administration Insulin Aspart 1 vial 10/05/19 22:00 10/07/19 11:43 Novolog Vial Sliding Scale - SQ Not Given ACHS [facility] Protocol Levalbuterol HCl 0.63 mg 10/05/19 20:00 10/07/19 09:40 Xopenex IH 0.63 mg RTID [facility] Administration Lisinopril 5 mg 10/06/19 10:00 10/07/19 09:53 Prinivil PO 5 mg DAILY [facility] Administration Melatonin 10 mg 10/05/19 22:00 01/29/20 21:18 Melatonin PO 10 mg HS [facility] Administration Metoprolol Tartrate 200 mg 10/05/19 22:00 10/07/19 09:53 Lopressor - PO 200 mg BID [facility] Administration Verapamil HCl 240 mg 10/06/19 10:00 10/07/19 10:00 Calan Sr - PO 240 mg DAILY [facility] Administration Verapamil HCl 5 mg 10/05/19 18:21 Calan Injection - IVPUSH Q6H PRN TACHYCARDIA Impression 1. CKD 2. CHF 3. a-fib 4. lower ext edema 5. COPD 6. active smoker 7. non compliance 8. acute resp failure 9. influenza 10. hypernatremia Plan - d/c fluids - replace potassium - monitor bp - cont current meds - avoid nsaids - cardio follow up - sodium improved
[2019-10-07] MEDS: MELATONIN 5 MG TABLETS PO SCH (21:48)
[2019-10-07] MEDS: CHLORHEXIDINE GLUCONATE 4% CLEANSER FOR DECOLONIZATION TP SCH (21:50)
[2019-10-07] MEDS ORDERED: INSULIN (NOVOLOG) ASPART 100 UNITS/ML 10ML VIAL ONE (21:59)
[2019-10-08] MEDS: GABAPENTIN 250 MG/5 ML ORAL SOLUTION, 470 ML BOTTLE PO SCH ×3 (05:10→21:19)
[2019-10-08] MEDS: INSULIN SLIDING SCALE (NOVOLOG) 1 VIAL SQ SCH ×4 (06:02→21:28)
[2019-10-08 07:41] LABS: ALBUMIN 2.8 g/dl (3.4-5.0); BILIRUBIN,TOTAL 1.8 mg/dL (0.2-1); BLOOD UREA NITROGEN 33.2 mg/dL (7-18); CALCIUM 8.9 mg/dL (8.5-10.1); CREATININE 1.2 mg/dL (0.55-1.3); MAGNESIUM 2.6 mg/dL (1.8-2.4); POTASSIUM 3.6 mmol/L (3.5-5.1); TOT PROT 5.9 g/dl (6.4-8.2)
[2019-10-08] MEDS ORDERED: LEVALBUTEROL HCL 0.31 MG/3 ML VIAL.NEB IH ONE (08:00)
[2019-10-08] MEDS: LEVALBUTEROL HCL 0.63 MG/3 ML VIAL.NEB. IH SCH ×2 (08:32→20:45)
[2019-10-08] MEDS: hydrALAZINE HCL 25 MG TABLET (FP) PO SCH ×4 (09:46→21:18)
[2019-10-08] MEDS: LISINOPRIL 5 MG TABLET (FP) PO SCH (09:47)
[2019-10-08] MEDS: FAMOTIDINE 20 MG/50 ML IVPB 20 MG/50 ML MG IVPB SCH ×2 (09:47→21:20)
[2019-10-08] MEDS: APIXABAN 2.5 MG TABLET PO SCH ×2 (09:47→21:18)
--- NOTE | 2019-10-08 09:51 | DS ---
Physical Examination Vital Signs: Vital Signs Temperature 98.2 F 10/08/19 03:00 Pulse Rate 104 H 10/08/19 05:00 Respiratory Rate 21 H 10/08/19 05:00 Blood Pressure 162/88 10/08/19 05:00 O2 Sat by Pulse Oximetry (%) 94 L 10/08/19 08:32 Constitutional: Yes: Mild Distress Cardiovascular: Yes: Tachycardia, Pulse Irregular Respiratory: Yes: Diminished, On Nasal O2 Gastrointestinal: Yes: Soft Renal/: Yes: Incontinence Musculoskeletal: Yes: Muscle Weakness Integumentary: Yes: Rash, Venous Stasis Changes Neurological: Yes: Pre-Existing Deficit Labs: CBC, BMP 10/07/19 06:00 10/08/19 05:34 Discharge Summary Problems reviewed: Yes Reason For Visit: HYPERCAPNIA,COPD,ACUTE EXACERBATION OF COPD Current Active Problems Acute exacerbation of COPD with asthma (Acute) Acute respiratory failure (Acute) Influenza A (Acute) Pneumonia (Acute) Procedures: Principal: CXR/LABS Hospital Course: ADMITTED FOR PNA AND RESPIRATORY DISTRES, INTUBATED AND TREATED WITH IV ABX AND TAMIFLU. TACHYCARDIA MONITORED AND MEDS ADJUSTED Goals: WILL BENEFIT FROM SNF Condition: Guarded - Instructions Diet, Activity, Other Instructions: MONITOR LABS AND HEART RATE PT EVAL LOW SALT DIET PSYCHIATRY F/U Disposition: [facility] - Home Medications Comprehensive Discharge Medication List: Ambulatory Orders Albuterol Sulfate Inhaler - [Ventolin HFA Inhaler -] 1 inh IH QID PRN 05/21/18 Budesonide/Formeterol Fumarate [SYMBICORT 80/4.5mcg -] 2 puff IH BID #1 inhaler 12/28/18 Bupropion HCl [Wellbutrin Xl -] 150 mg PO DAILY tab.sr.24h 12/28/18 Cholecalciferol (Vitamin D3) [Vitamin D -] 50,000 unit PO WEEKLY 01/22/19 Linagliptin [Tradjenta] 5 mg PO DAILY 01/22/19 Acetaminophen [Tylenol .Regular Strength -] 650 mg PO Q6H PRN tablet 02/10/19 Apixaban [Eliquis -] 2.5 mg PO BID #60 tablet 04/30/19 Lidocaine 5% Patch [Lidoderm -] 1 patch TP DAILY #30 patch 04/30/19 Gabapentin [Neurontin -] 300 mg PO TID #60 capsule 06/28/19 hydrALAZINE HCL [Apresoline -] 50 mg PO TID #90 tablet MDD 3 06/28/19 Diclofenac Sodium [Diclo Gel] 1 each TP ASDIR 07/13/19 Furosemide [Lasix] 40 mg PO DAILY 07/13/19 Oxycodone HCl/Acetaminophen [Endocet 10-325 mg Tablet] 1 each PO QID PRN Acetaminophen Oral Solution [Tylenol Oral Solution -] 1,000 mg PO Q6H PRN soln.oral 10/08/19 Bupropion HCl [Wellbutrin Xl -] 300 mg PO DAILY tab.sr.24h 10/08/19 Insulin Sliding Scale [Novolog Vial Sliding Scale -] 1 vial SQ ACHS units 10/08 Lisinopril [Prinivil] 5 mg PO DAILY tablet 10/08/19 Metoprolol Tartrate [Lopressor -] 200 mg PO BID tablet 10/08/19 Verapamil HCl ER [Calan Sr -] 240 mg PO DAILY tablet.er 10/08/19 Prescription Drug Monitoring Program (I-STOP) results: I-STOP not reviewed
[2019-10-08] MEDS: METOPROLOL TARTRATE 50 MG TABLET (FP) PO SCH ×2 (09:55→21:19)
[2019-10-08] MEDS: CHLORHEXIDINE GLUCONATE 0.12% 15ML CUP MM SCH ×2 (10:00→21:20)
[2019-10-08] MEDS ORDERED: PT OWN MED DRAWER 7, Y5N ONE ×4 (10:02→16:58)
[2019-10-08] MEDS: BUDESONIDE/FORMETEROL FUMARATE 80/4.5 mcg INHALER IH SCH ×2 (10:30→21:21)
[2019-10-08] MEDS: VERAPAMIL HCL 240 MG E.R. TABLET PO SCH (11:00)
--- NOTE | 2019-10-08 11:46 | PN ---
Progress Note (short form) - Note Progress Note: Awake and alert on [place] O2. No acute events overnight. Still with some cough. No CP. Intake & Output 10/05/19 10/06/19 10/07/19 10/08/19 23:59 23:59 23:59 23:59 Intake Total 2175 2049 185 100 Output Total 600 Balance 1575 2049 1850 100 Weight 134 lb 4.8 oz 134 lb 4 oz 134 lb 4 oz Last Vital Signs Temp Pulse Resp BP Pulse Ox 98.2 F 104 H 21 H 162/88 94 L 10/08/19 03:00 10/08/19 05:00 10/08/19 05:00 10/08/19 05:00 10/08/19 08:32 Active Medications Acetaminophen (Tylenol Oral Solution -) 1,000 mg PO Q6H PRN PRN Reason: FEVER Apixaban (Eliquis -) 2.5 mg PO BID [facility] Last Admin: 10/08/19 09:47 Dose: 2.5 mg Budesonide/Formoterol Fumarate (Symbicort 80/4.5mcg -) 2 puff IH BID [facility] Last Admin: 10/07/19 21:51 Dose: 2 puff Bupropion HCl (Wellbutrin Xl -) 300 mg PO DAILY [facility] Last Admin: 10/08/19 09:55 Dose: 300 mg Chlorhexidine Gluconate (Hibiclens For Decolonization -) 1 applic TP HS [facility] Last Admin: 10/07/19 21:50 Dose: 1 applic Chlorhexidine Gluconate (Peridex -) 15 ml MM BID [facility] Last Admin: 10/07/19 21:50 Dose: Not Given Ergocalciferol (Drisdol -) 50,000 unit PO We@1000 [facility] Last Admin: 10/06/19 09:10 Dose: 50,000 unit Gabapentin (Neurontin Oral Liquid -) 300 mg PO TID [facility] Last Admin: 10/08/19 05:10 Dose: 300 mg Hydralazine HCl (Apresoline Injection -) 10 mg IVPUSH Q6H PRN PRN Reason: HYPERTENSION Last Admin: 10/06/19 06:23 Dose: 10 mg Hydralazine HCl (Apresoline -) 75 mg PO QID [facility] Last Admin: 10/08/19 09:46 Dose: 75 mg Famotidine/Sodium Chloride (Pepcid 20 Mg Premixed Ivpb -) 20 mg in 50 mls @ 100 mls/hr IVPB BID [facility] Last Admin: 10/08/19 09:47 Dose: 100 mls/hr Insulin Aspart (Novolog Vial Sliding Scale -) 1 vial SQ ACHS [facility]; Protocol Last Admin: 10/08/19 06:02 Dose: Not Given Levalbuterol HCl (Xopenex) 0.63 mg IH RTID [facility] Last Admin: 10/08/19 08:32 Dose: 0.63 mg Lisinopril (Prinivil) 5 mg PO DAILY [facility] Last Admin: 10/08/19 09:47 Dose: 5 mg Melatonin (Melatonin) 10 mg PO HS [facility] Last Admin: 10/07/19 21:48 Dose: 10 mg Metoprolol Tartrate (Lopressor -) 200 mg PO BID [facility] Last Admin: 10/08/19 09:55 Dose: 200 mg Verapamil HCl (Calan Sr -) 240 mg PO DAILY [facility] Last Admin: 10/07/19 10:00 Dose: 240 mg Verapamil HCl (Calan Injection -) 5 mg IVPUSH Q6H PRN PRN Reason: TACHYCARDIA Gen: Awake and alert, on NC O2 HEENT: Dry MM Heart: Rapid AFib Lung: scattered bilateral rhonchi, no wheeze Abd: soft, nontender Ext: + edema Neuro: Awake and responsive, non-focal Laboratory Results - last 24 hr 10/07/19 10/07/19 10/08/19 17:19 21:06 05:18 Sodium Potassium Chloride Carbon Dioxide Anion Gap BUN Creatinine Est GFR (CKD-EPI)AfAm Est GFR (CKD-EPI)NonAf POC Glucometer 117 103 138 Random Glucose Calcium Magnesium Total Bilirubin AST ALT Alkaline Phosphatase Total Protein Albumin 10/08/19 05:34 Sodium 143 Potassium 3.6 Chloride 107 Carbon Dioxide 32 Anion Gap 5 L BUN 33.2 H Creatinine 1.2 Est GFR (CKD-EPI)AfAm 56.49 Est GFR (CKD-EPI)NonAf 48.74 POC Glucometer Random Glucose 142 H Calcium 8.9 Magnesium 2.6 H Total Bilirubin 1.8 H AST 20 ALT 32 Alkaline Phosphatase 62 Total Protein 5.9 L Albumin 2.8 L ASSESSMENT AND PLAN: Acute on Chronic Hypoxic and Hypercapneic Respiratory Failure Influenza A Pneumonia Acute COPD Exacerbation Atrial Fibrillation with RVR LV Diastolic Dysfunction HTN DM CKD Obstructive Sleep Apnea - NC O2 as tolerated - Completed tamiflu - O2 to keep SpO2 >90% - Rate control - Continue anticoagulation - PO as tolerated - Aspiration precautions - DVT/GI prophylaxis - Symbicort BID - DC planning Dr Montiel
--- NOTE | 2019-10-08 14:44 | PN ---
Progress Note, Physician Chief Complaint: Sitting up comfortable History of Present Illness: 59 year old female with a PMH of hypertension, AFIB, CHF, COPD, DM, sleep apnea , and CKD. She presented to the ER with SOB, respiratory failure, was intubated due to hypercapneic respiratory failure now extubated. Found with influeza, HCAP and atrial fibrillation with RVR. Echocardiogram 04/26/19 showed normal LV funciton, moderate severe AI, moderate MR, severe TR. - Current Medication List Current Medications: Active Medications Acetaminophen (Tylenol Oral Solution -) 1,000 mg PO Q6H PRN PRN Reason: FEVER Apixaban (Eliquis -) 2.5 mg PO BID [facility] Last Admin: 10/08/19 09:47 Dose: 2.5 mg Budesonide/Formoterol Fumarate (Symbicort 80/4.5mcg -) 2 puff IH BID [facility] Last Admin: 10/08/19 10:30 Dose: 2 puff Bupropion HCl (Wellbutrin Xl -) 300 mg PO DAILY [facility] Last Admin: 10/08/19 09:55 Dose: 300 mg Chlorhexidine Gluconate (Hibiclens For Decolonization -) 1 applic TP HS [facility] Last Admin: 10/07/19 21:50 Dose: 1 applic Chlorhexidine Gluconate (Peridex -) 15 ml MM BID [facility] Last Admin: 10/08/19 10:00 Dose: Not Given Ergocalciferol (Drisdol -) 50,000 unit PO We@1000 [facility] Last Admin: 10/06/19 09:10 Dose: 50,000 unit Gabapentin (Neurontin Oral Liquid -) 300 mg PO TID [facility] Last Admin: 10/08/19 13:38 Dose: 300 mg Hydralazine HCl (Apresoline Injection -) 10 mg IVPUSH Q6H PRN PRN Reason: HYPERTENSION Last Admin: 10/06/19 06:23 Dose: 10 mg Hydralazine HCl (Apresoline -) 75 mg PO QID [facility] Last Admin: 10/08/19 13:38 Dose: 75 mg Famotidine/Sodium Chloride (Pepcid 20 Mg Premixed Ivpb -) 20 mg in 50 mls @ 100 mls/hr IVPB BID [facility] Last Admin: 10/08/19 09:47 Dose: 100 mls/hr Insulin Aspart (Novolog Vial Sliding Scale -) 1 vial SQ ACHS [facility]; Protocol Last Admin: 10/08/19 13:32 Dose: Not Given Levalbuterol HCl (Xopenex) 0.63 mg IH RTID [facility] Last Admin: 10/08/19 08:32 Dose: 0.63 mg Lisinopril (Prinivil) 5 mg PO DAILY [facility] Last Admin: 10/08/19 09:47 Dose: 5 mg Melatonin (Melatonin) 10 mg PO HS [facility] Last Admin: 10/07/19 21:48 Dose: 10 mg Metoprolol Tartrate (Lopressor -) 200 mg PO BID [facility] Last Admin: 10/08/19 09:55 Dose: 200 mg Verapamil HCl (Calan Sr -) 240 mg PO DAILY [facility] Last Admin: 10/08/19 11:00 Dose: 240 mg Verapamil HCl (Calan Injection -) 5 mg IVPUSH Q6H PRN PRN Reason: TACHYCARDIA - Objective Vital Signs: Vital Signs Temperature 98 F 10/08/19 13:09 Pulse Rate 102 H 10/08/19 13:09 Respiratory Rate 22 H 10/08/19 13:09 Blood Pressure 161/98 10/08/19 13:09 O2 Sat by Pulse Oximetry (%) 95 10/08/19 09:00 Constitutional: Yes: No Distress Neck: Yes: Supple Cardiovascular: Yes: Pulse Irregular, S1, S2 Respiratory: Yes: Rales Gastrointestinal: Yes: Soft Edema: No Labs: CBC, BMP 10/07/19 06:00 10/08/19 05:34 INR, PTT INR 1.16 (0.83-1.09) H 09/30/19 06:18 Fibrinogen 247.0 mg/dL (238-498) 09/30/19 06:18 Problem List - Problems (1) Afib Code(s): I48.91 - UNSPECIFIED ATRIAL FIBRILLATION Qualifiers: Atrial fibrillation type: unspecified Qualified Code(s): I48.91 - Unspecified atrial fibrillation Assessment/Plan 59 year old female with a PMH of hypertension, AFIB, CHF, COPD, DM, sleep apnea , and CKD. She presented to the ER with SOB, respiratory failure, was intubated due to hypercapneic respiratory failure. Found with influeza, HCAP and atrial fibrillation with RVR. Echocardiogram 04/26/19 showed normal LV funciton, moderate severe AI, moderate MR, severe TR. Atrial Fibrillation -rate controlled on metoprolol and verapamil On Apixaban 2.5 mg PO Q12h for AC On hydralazine and lisinopril with improved htn. If BP remains up than increase hydralazine to 100mg Will sign off
--- NOTE | 2019-10-08 15:28 | PN ---
Progress Note, Physician History of Present Illness: Pt seen and examined at bedside. She is awake and appears comfortable. - Current Medication List Current Medications: Active Medications Acetaminophen (Tylenol Oral Solution -) 1,000 mg PO Q6H PRN PRN Reason: FEVER Apixaban (Eliquis -) 2.5 mg PO BID [facility] Last Admin: 10/08/19 09:47 Dose: 2.5 mg Budesonide/Formoterol Fumarate (Symbicort 80/4.5mcg -) 2 puff IH BID [facility] Last Admin: 10/08/19 10:30 Dose: 2 puff Bupropion HCl (Wellbutrin Xl -) 300 mg PO DAILY [facility] Last Admin: 10/08/19 09:55 Dose: 300 mg Chlorhexidine Gluconate (Hibiclens For Decolonization -) 1 applic TP HS [facility] Last Admin: 10/07/19 21:50 Dose: 1 applic Chlorhexidine Gluconate (Peridex -) 15 ml MM BID [facility] Last Admin: 10/08/19 10:00 Dose: Not Given Ergocalciferol (Drisdol -) 50,000 unit PO We@1000 [facility] Last Admin: 10/06/19 09:10 Dose: 50,000 unit Gabapentin (Neurontin Oral Liquid -) 300 mg PO TID [facility] Last Admin: 10/08/19 13:38 Dose: 300 mg Hydralazine HCl (Apresoline Injection -) 10 mg IVPUSH Q6H PRN PRN Reason: HYPERTENSION Last Admin: 10/06/19 06:23 Dose: 10 mg Hydralazine HCl (Apresoline -) 75 mg PO QID [facility] Last Admin: 10/08/19 13:38 Dose: 75 mg Famotidine/Sodium Chloride (Pepcid 20 Mg Premixed Ivpb -) 20 mg in 50 mls @ 100 mls/hr IVPB BID [facility] Last Admin: 10/08/19 09:47 Dose: 100 mls/hr Insulin Aspart (Novolog Vial Sliding Scale -) 1 vial SQ ACHS [facility]; Protocol Last Admin: 10/08/19 13:32 Dose: Not Given Levalbuterol HCl (Xopenex) 0.63 mg IH RTID [facility] Last Admin: 10/08/19 08:32 Dose: 0.63 mg Lisinopril (Prinivil) 5 mg PO DAILY [facility] Last Admin: 10/08/19 09:47 Dose: 5 mg Melatonin (Melatonin) 10 mg PO HS [facility] Last Admin: 10/07/19 21:48 Dose: 10 mg Metoprolol Tartrate (Lopressor -) 200 mg PO BID [facility] Last Admin: 10/08/19 09:55 Dose: 200 mg Verapamil HCl (Calan Sr -) 240 mg PO DAILY [facility] Last Admin: 10/08/19 11:00 Dose: 240 mg Verapamil HCl (Calan Injection -) 5 mg IVPUSH Q6H PRN PRN Reason: TACHYCARDIA - Objective Vital Signs: Vital Signs Temperature 98 F 10/08/19 13:09 Pulse Rate 102 H 10/08/19 13:09 Respiratory Rate 22 H 10/08/19 13:09 Blood Pressure 161/98 10/08/19 13:09 O2 Sat by Pulse Oximetry (%) 95 10/08/19 09:00 Constitutional: Yes: Calm Eyes: Yes: Conjunctiva Clear HENT: Yes: Atraumatic Neck: Yes: Supple Cardiovascular: Yes: S1, S2 Respiratory: Yes: CTA Bilaterally Gastrointestinal: Yes: Soft Genitourinary: Yes: Incontinence Musculoskeletal: Yes: WNL Edema: No Neurological: Yes: Oriented Psychiatric: Yes: Oriented Labs: CBC, BMP 10/07/19 06:00 10/08/19 05:34 INR, PTT INR 1.16 (0.83-1.09) H 09/30/19 06:18 Fibrinogen 247.0 mg/dL (238-498) 09/30/19 06:18 Problem List - Problems (1) CKD (chronic kidney disease) Code(s): N18.9 - CHRONIC KIDNEY DISEASE, UNSPECIFIED Assessment/Plan Current Medications Generic Name Dose Route Start Last Admin Trade Name Freq PRN Reason Stop Dose Admin Acetaminophen 1,000 mg 10/05/19 18:21 Tylenol Oral Solution - PO Q6H PRN FEVER Apixaban 2.5 mg 10/05/19 22:00 10/08/19 09:47 Eliquis - PO 2.5 mg BID [facility] Administration Budesonide/Formoterol Fumarate 2 puff 10/05/19 22:00 10/08/19 10:30 Symbicort 80/4.5mcg - IH 2 puff BID [facility] Administration Bupropion HCl 300 mg 10/06/19 10:00 10/08/19 09:55 Wellbutrin Xl - PO 300 mg DAILY [facility] Administration Chlorhexidine Gluconate 1 applic 10/05/19 22:00 10/07/19 21:50 Hibiclens For Decolonization - TP 1 applic HS [facility] Administration Chlorhexidine Gluconate 15 ml 10/05/19 22:00 10/08/19 10:00 Peridex - MM Not Given BID [facility] Ergocalciferol 50,000 unit 10/06/19 10:00 10/06/19 09:10 Drisdol - PO 50,000 unit We@1000 [facility] Administration Gabapentin 300 mg 10/05/19 22:00 10/08/19 13:38 Neurontin Oral Liquid - PO 300 mg TID [facility] Administration Hydralazine HCl 10 mg 10/05/19 18:21 10/06/19 06:23 Apresoline Injection - IVPUSH 10 mg Q6H PRN Administration HYPERTENSION Hydralazine HCl 75 mg 10/07/19 17:15 10/08/19 13:38 Apresoline - PO 75 mg QID [facility] Administration Famotidine/Sodium Chloride 20 mg in 50 mls @ 100 mls/hr 10/05/19 22:00 09:47 Pepcid 20 Mg Premixed Ivpb - IVPB 100 mls/hr BID [facility] Administration Insulin Aspart 1 vial 10/05/19 22:00 10/08/19 13:32 Novolog Vial Sliding Scale - SQ Not Given ACHS [facility] Protocol Levalbuterol HCl 0.63 mg 10/05/19 20:00 10/08/19 08:32 Xopenex IH 0.63 mg RTID [facility] Administration Lisinopril 5 mg 10/06/19 10:00 10/08/19 09:47 Prinivil PO 5 mg DAILY [facility] Administration Melatonin 10 mg 10/05/19 22:00 10/07/19 21:48 Melatonin PO 10 mg HS [facility] Administration Metoprolol Tartrate 200 mg 10/05/19 22:00 10/08/19 09:55 Lopressor - PO 200 mg BID [facility] Administration Verapamil HCl 240 mg 10/06/19 10:00 10/08/19 11:00 Calan Sr - PO 240 mg DAILY [facility] Administration Verapamil HCl 5 mg 10/05/19 18:21 Calan Injection - IVPUSH Q6H PRN TACHYCARDIA Impression 1. CKD 2. CHF 3. a-fib 4. lower ext edema 5. COPD 6. active smoker 7. non compliance 8. acute resp failure 9. influenza 10. hypernatremia Plan - restart lasix at lower dose once her po intake improves - monitor volume status - possible discharge today - outpt follow up - avoid nsaids - cardio follow up appreciated - sodium improved
[2019-10-08] MEDS ORDERED: POTASSIUM CHLORIDE TABS 20 MEQ TABLET.ER (FP) PO ONE (15:45)
[2019-10-08] MEDS: CHLORHEXIDINE GLUCONATE 4% CLEANSER FOR DECOLONIZATION TP SCH (21:18)
[2019-10-08] MEDS: MELATONIN 5 MG TABLETS PO SCH (21:19)
[2019-10-09] MEDS: GABAPENTIN 250 MG/5 ML ORAL SOLUTION, 470 ML BOTTLE PO SCH ×3 (05:22→23:20)
[2019-10-09] MEDS: INSULIN SLIDING SCALE (NOVOLOG) 1 VIAL SQ SCH ×4 (06:21→22:04)
[2019-10-09] MEDS: LEVALBUTEROL HCL 0.63 MG/3 ML VIAL.NEB. IH SCH ×3 (08:25→21:38)
[2019-10-09] MEDS: hydrALAZINE HCL 25 MG TABLET (FP) PO SCH ×4 (10:32→21:56)
[2019-10-09] MEDS: VERAPAMIL HCL 240 MG E.R. TABLET PO SCH (10:33)
[2019-10-09] MEDS: FAMOTIDINE 20 MG/50 ML IVPB 20 MG/50 ML MG IVPB SCH ×2 (10:33→21:57)
[2019-10-09] MEDS: APIXABAN 2.5 MG TABLET PO SCH ×2 (10:33→21:57)
[2019-10-09] MEDS: METOPROLOL TARTRATE 50 MG TABLET (FP) PO SCH ×2 (10:33→21:57)
[2019-10-09] MEDS: LISINOPRIL 5 MG TABLET (FP) PO SCH (10:34)
[2019-10-09] MEDS: BUDESONIDE/FORMETEROL FUMARATE 80/4.5 mcg INHALER IH SCH ×2 (10:45→22:08)
[2019-10-09] MEDS: CHLORHEXIDINE GLUCONATE 0.12% 15ML CUP MM SCH ×2 (11:00→21:58)
--- NOTE | 2019-10-09 12:07 | PN ---
Progress Note (short form) - Note Progress Note: PULMONARY Denies shortness of breath. +nonproductive cough. Vital Signs Period Temp Pulse Resp BP Sys/Salgado Pulse Ox Last 24 Hr 97.3 F-98.5 F 76-108 17-24 161-193/68-98 92-100 Gen: NAD at rest Heart: RRR Lung: distant breath sounds Abd: soft, nontender Ext: no edema CBC, BMP 10/07/19 06:00 10/08/19 05:34 Active Medications Acetaminophen (Tylenol Oral Solution -) 1,000 mg PO Q6H PRN PRN Reason: FEVER Apixaban (Eliquis -) 2.5 mg PO BID [facility] Last Admin: 10/09/19 10:33 Dose: 2.5 mg Budesonide/Formoterol Fumarate (Symbicort 80/4.5mcg -) 2 puff IH BID [facility] Last Admin: 10/09/19 10:45 Dose: 2 puff Bupropion HCl (Wellbutrin Xl -) 300 mg PO DAILY [facility] Last Admin: 10/09/19 10:34 Dose: 300 mg Chlorhexidine Gluconate (Hibiclens For Decolonization -) 1 applic TP HS [facility] Last Admin: 10/08/19 21:18 Dose: 1 applic Chlorhexidine Gluconate (Peridex -) 15 ml MM BID [facility] Last Admin: 10/09/19 11:00 Dose: Not Given Ergocalciferol (Drisdol -) 50,000 unit PO We@1000 [facility] Last Admin: 10/06/19 09:10 Dose: 50,000 unit Gabapentin (Neurontin Oral Liquid -) 300 mg PO TID [facility] Last Admin: 10/09/19 05:22 Dose: 300 mg Hydralazine HCl (Apresoline Injection -) 10 mg IVPUSH Q6H PRN PRN Reason: HYPERTENSION Last Admin: 10/06/19 06:23 Dose: 10 mg Hydralazine HCl (Apresoline -) 75 mg PO QID [facility] Last Admin: 10/09/19 10:32 Dose: 75 mg Famotidine/Sodium Chloride (Pepcid 20 Mg Premixed Ivpb -) 20 mg in 50 mls @ 100 mls/hr IVPB BID [facility] Last Admin: 10/09/19 10:33 Dose: 100 mls/hr Insulin Aspart (Novolog Vial Sliding Scale -) 1 vial SQ ACHS [facility]; Protocol Last Admin: 10/09/19 11:08 Dose: Not Given Levalbuterol HCl (Xopenex) 0.63 mg IH RTID [facility] Last Admin: 10/09/19 08:25 Dose: 0.63 mg Lisinopril (Prinivil) 5 mg PO DAILY [facility] Last Admin: 10/09/19 10:34 Dose: 5 mg Melatonin (Melatonin) 10 mg PO HS [facility] Last Admin: 10/08/19 21:19 Dose: 10 mg Metoprolol Tartrate (Lopressor -) 200 mg PO BID [facility] Last Admin: 10/09/19 10:33 Dose: 200 mg Verapamil HCl (Calan Sr -) 240 mg PO DAILY [facility] Last Admin: 10/09/19 10:33 Dose: 240 mg Verapamil HCl (Calan Injection -) 5 mg IVPUSH Q6H PRN PRN Reason: TACHYCARDIA A/P Acute on Chronic Hypoxic and Hypercapneic Respiratory Failure Influenza A Pneumonia Acute COPD Exacerbation Atrial Fibrillation with RVR LV Diastolic Dysfunction Thrombocytopenia HTN DM CKD Obstructive Sleep Apnea - completed antibiotics, tamiflu - off medrol - inhaled bronchodilators - O2 to keep SpO2 >90% - rate control - continue anticoagulation - DVT/GI prophylaxis - d/c planning
--- NOTE | 2019-10-09 15:35 | PN ---
Progress Note, Physician Chief Complaint: Acute Respiratory Failure Pneumonia Influenza A History of Present Illness: Previous notes and events reviewed awake and alert NAD productive cough noted denies chest pain or SOB sts her breathing has improved afebrile no leukocytosis - Current Medication List Current Medications: Active Medications Acetaminophen (Tylenol Oral Solution -) 1,000 mg PO Q6H PRN PRN Reason: FEVER Apixaban (Eliquis -) 2.5 mg PO BID [facility] Last Admin: 10/09/19 10:33 Dose: 2.5 mg Budesonide/Formoterol Fumarate (Symbicort 80/4.5mcg -) 2 puff IH BID [facility] Last Admin: 10/09/19 10:45 Dose: 2 puff Bupropion HCl (Wellbutrin Xl -) 300 mg PO DAILY [facility] Last Admin: 10/09/19 10:34 Dose: 300 mg Chlorhexidine Gluconate (Hibiclens For Decolonization -) 1 applic TP HS [facility] Last Admin: 10/08/19 21:18 Dose: 1 applic Chlorhexidine Gluconate (Peridex -) 15 ml MM BID [facility] Last Admin: 10/09/19 11:00 Dose: Not Given Ergocalciferol (Drisdol -) 50,000 unit PO We@1000 [facility] Last Admin: 10/06/19 09:10 Dose: 50,000 unit Gabapentin (Neurontin Oral Liquid -) 300 mg PO TID [facility] Last Admin: 10/09/19 13:57 Dose: 300 mg Hydralazine HCl (Apresoline Injection -) 10 mg IVPUSH Q6H PRN PRN Reason: HYPERTENSION Last Admin: 10/06/19 06:23 Dose: 10 mg Hydralazine HCl (Apresoline -) 75 mg PO QID [facility] Last Admin: 10/09/19 13:57 Dose: 75 mg Famotidine/Sodium Chloride (Pepcid 20 Mg Premixed Ivpb -) 20 mg in 50 mls @ 100 mls/hr IVPB BID [facility] Last Admin: 10/09/19 10:33 Dose: 100 mls/hr Insulin Aspart (Novolog Vial Sliding Scale -) 1 vial SQ ACHS [facility]; Protocol Last Admin: 10/09/19 11:08 Dose: Not Given Levalbuterol HCl (Xopenex) 0.63 mg IH RTID [facility] Last Admin: 10/09/19 14:20 Dose: 0.63 mg Lisinopril (Prinivil) 5 mg PO DAILY [facility] Last Admin: 10/09/19 10:34 Dose: 5 mg Melatonin (Melatonin) 10 mg PO HS [facility] Last Admin: 10/08/19 21:19 Dose: 10 mg Metoprolol Tartrate (Lopressor -) 200 mg PO BID [facility] Last Admin: 10/09/19 10:33 Dose: 200 mg Verapamil HCl (Calan Sr -) 240 mg PO DAILY [facility] Last Admin: 10/09/19 10:33 Dose: 240 mg Verapamil HCl (Calan Injection -) 5 mg IVPUSH Q6H PRN PRN Reason: TACHYCARDIA - Objective Vital Signs: Vital Signs Temperature 97.3 F L 10/09/19 14:00 Pulse Rate 102 H 10/09/19 14:00 Respiratory Rate 24 H 10/09/19 14:00 Blood Pressure 176/75 H 10/09/19 14:00 O2 Sat by Pulse Oximetry (%) 97 10/09/19 09:59 Constitutional: Yes: No Distress, Calm Eyes: Yes: Conjunctiva Clear HENT: Yes: Atraumatic Cardiovascular: Yes: Tachycardia Respiratory: Yes: Regular, On Nasal O2, Rhonchi Gastrointestinal: Yes: Normal Bowel Sounds, Soft Genitourinary: Yes: Incontinence Musculoskeletal: Yes: Muscle Weakness Extremities: Yes: WNL Edema: No Neurological: Yes: Alert, Pre-Existing Deficit Psychiatric: Yes: Alert, Oriented Labs: CBC, BMP 10/07/19 06:00 10/08/19 05:34 INR, PTT INR 1.16 (0.83-1.09) H 09/30/19 06:18 Fibrinogen 247.0 mg/dL (238-498) 09/30/19 06:18 Microbiology 09/29/19 15:30 Blood - Peripheral Venous Blood Culture - Final NO GROWTH AFTER 5 DAYS INCUBATION 09/29/19 15:30 Blood - Peripheral Venous Blood Culture - Final NO GROWTH AFTER 5 DAYS INCUBATION 09/29/19 15:15 Sputum - Endotrachea Suction/Ventilator Gram Stain - Final 09/29/19 15:15 Sputum - Endotrachea Suction/Ventilator Sputum Culture - Final Yeast Like Organism 09/30/19 12:30 Urine - Urine - Catheterized Urine Culture - Final NO GROWTH OBTAINED 09/24/19 20:15 Blood - Peripheral Venous Blood Culture - Final NO GROWTH AFTER 5 DAYS INCUBATION 09/24/19 20:18 Blood - Peripheral Venous Blood Culture - Final NO GROWTH AFTER 5 DAYS INCUBATION 09/25/19 13:30 Sputum - Endotrachea Suction/Ventilator Gram Stain - Final 09/25/19 13:30 Sputum - Endotrachea Suction/Ventilator Sputum Culture - Final NORMAL RESPIRATORY BACILIO 09/24/19 20:15 Urine - Urine Flores Urine Culture - Final NO GROWTH OBTAINED 09/25/19 13:30 Urine For Antigen Detection Legionella Antigen - Final 09/25/19 13:30 Urine For Antigen Detection Streptococcus pneumoniae Antigen (M - Final Problem List - Problems (1) Acute exacerbation of COPD with asthma Assessment/Plan: -Pulmonary on board -Bronchodilators -CXR from admission shows prominent jay jay and increased markings in the upper lobeswith the appearance of possible patchy infiltrates especially on the left -repeat CXR shows no discrete infiltrate or pleural effusion Code(s): J44.1 - CHRONIC OBSTRUCTIVE PULMONARY DISEASE W (ACUTE) EXACERBATION; J45.901 - UNSPECIFIED ASTHMA WITH (ACUTE) EXACERBATION (2) Acute respiratory failure Assessment/Plan: -Pulmonary on board -Bronchodilators -CXR from admission shows prominent jay jay and increased markings in the upper lobeswith the appearance of possible patchy infiltrates especially on the left -repeat CXR shows no discrete infiltrate or pleural effusion -completed IV ABT Code(s): J96.00 - ACUTE RESPIRATORY FAILURE, UNSP W HYPOXIA OR HYPERCAPNIA (3) Influenza A Assessment/Plan: -completed Tamiflu -no leukocytosis Code(s): J10.1 - FLU DUE TO OTH IDENT INFLUENZA VIRUS W OTH RESP MANIFEST (4) JOSEPH (acute kidney injury) Assessment/Plan: -BUN/Cr 33.2/1.2 -renal on board -monitor renal function Code(s): N17.9 - ACUTE KIDNEY FAILURE, UNSPECIFIED (5) Afib Assessment/Plan: -Eliquis -Cardiology on board -rate controlled with metoprolol and verapamil Code(s): I48.91 - UNSPECIFIED ATRIAL FIBRILLATION Qualifiers: Atrial fibrillation type: unspecified Qualified Code(s): I48.91 - Unspecified atrial fibrillation (6) CHF (congestive heart failure) Assessment/Plan: -1L fluid restriction -low Na diet -strict I&Os -daily weights Code(s): I50.9 - HEART FAILURE, UNSPECIFIED Qualifiers: Heart failure type: diastolic Heart failure chronicity: acute on chronic Qualified Code(s): I50.33 - Acute on chronic diastolic (congestive) heart failure (7) HTN (hypertension) Assessment/Plan: -Hydralazine, Lisinopril -low Na diet Code(s): I10 - ESSENTIAL (PRIMARY) HYPERTENSION (8) Pneumonia Assessment/Plan: -Bronchodilators -CXR from admission shows prominent jay jay and increased markings in the upper lobeswith the appearance of possible patchy infiltrates especially on the left -repeat CXR shows no discrete infiltrate or pleural effusion -Pulmonary and ID on board -completed IV antibiotics -no leukocytosis -afebrile Code(s): J18.9 - PNEUMONIA, UNSPECIFIED ORGANISM Qualifiers: Pneumonia type: due to unspecified organism Laterality: unspecified laterality Lung location: unspecified part of lung Qualified Code(s): J18.9 - Pneumonia, unspecified organism Assessment/Plan see problem list pending acceptance to SNF
[2019-10-09] MEDS: ACETAMINOPHEN 650 MG/20.3 ML ORAL SOLUTION (CUPS) PO PRN (19:27)
[2019-10-09] MEDS: MELATONIN 5 MG TABLETS PO SCH (21:57)
[2019-10-09] MEDS: CHLORHEXIDINE GLUCONATE 4% CLEANSER FOR DECOLONIZATION TP SCH (21:58)
[2019-10-10] MEDS: hydrALAZINE HCL 20 MG/ML VIAL IVPUSH PRN (03:30)
[2019-10-10] MEDS: ACETAMINOPHEN 650 MG/20.3 ML ORAL SOLUTION (CUPS) PO PRN (04:13)
[2019-10-10] MEDS: GABAPENTIN 250 MG/5 ML ORAL SOLUTION, 470 ML BOTTLE PO SCH ×3 (05:26→21:58)
[2019-10-10] MEDS: LEVALBUTEROL HCL 0.63 MG/3 ML VIAL.NEB. IH SCH ×3 (07:13→21:25)
[2019-10-10 07:27] LABS: HEMATOCRIT 31.6 % (32.4-45.2); HEMOGLOBIN 10.2 GM/dL (10.7-15.3); MCH 29.1 pg (25.7-33.7); MCHC 32.4 g/dl (32.0-36.0); MEAN PLT VOLUME 11.2 fl (7.5-11.1); PLATELET COUNT 100 K/MM3 (134-434); RBC 3.51 M/mm3 (3.60-5.2); RDW 14.9 % (11.6-15.6); WHITE BLOOD COUNT 5.7 K/mm3 (4.0-10.0)
--- NOTE | 2019-10-10 08:15 | PN ---
Progress Note (short form) - Note Progress Note: PATIENT SEEN IN ICU AWAITING DISPOSITION TO [facility] AWAKE ALERT FEELS GOOD HEART RATE CONTROLLED FORMS AND MED LIST COMPLETED AND DISCUSSED WITH DIGITAL MEDIA COORDINATOR Problem List - Problems (1) Acute exacerbation of COPD with asthma Code(s): J44.1 - CHRONIC OBSTRUCTIVE PULMONARY DISEASE W (ACUTE) EXACERBATION; J45.901 - UNSPECIFIED ASTHMA WITH (ACUTE) EXACERBATION (2) Acute respiratory failure Code(s): J96.00 - ACUTE RESPIRATORY FAILURE, UNSP W HYPOXIA OR HYPERCAPNIA (3) Influenza A Code(s): J10.1 - FLU DUE TO OTH IDENT INFLUENZA VIRUS W OTH RESP MANIFEST (4) Pneumonia Code(s): J18.9 - PNEUMONIA, UNSPECIFIED ORGANISM Qualifiers: Pneumonia type: due to unspecified organism Laterality: unspecified laterality Lung location: unspecified part of lung Qualified Code(s): J18.9 - Pneumonia, unspecified organism (5) JOSEPH (acute kidney injury) Code(s): N17.9 - ACUTE KIDNEY FAILURE, UNSPECIFIED (6) Abnormal CT of the chest Code(s): R93.89 - ABNORMAL FINDINGS ON DX IMAGING OF OT BODY STRUCTURES (7) Acute exacerbation of chronic obstructive pulmonary disease (COPD) Code(s): J44.1 - CHRONIC OBSTRUCTIVE PULMONARY DISEASE W (ACUTE) EXACERBATION (8) Acute kidney injury superimposed on CKD Code(s): N17.9 - ACUTE KIDNEY FAILURE, UNSPECIFIED; N18.9 - CHRONIC KIDNEY DISEASE, UNSPECIFIED (9) Acute on chronic diastolic (congestive) heart failure Code(s): I50.33 - ACUTE ON CHRONIC DIASTOLIC (CONGESTIVE) HEART FAILURE (10) Afib Code(s): I48.91 - UNSPECIFIED ATRIAL FIBRILLATION Qualifiers: Atrial fibrillation type: unspecified Qualified Code(s): I48.91 - Unspecified atrial fibrillation (11) Anxiety and depression Code(s): F41.9 - ANXIETY DISORDER, UNSPECIFIED; F32.9 - MAJOR DEPRESSIVE DISORDER, SINGLE EPISODE, UNSPECIFIED (12) Leg edema Code(s): R60.0 - LOCALIZED EDEMA (13) Cigarette nicotine dependence Code(s): F17.200 - NICOTINE DEPENDENCE, UNSPECIFIED, UNCOMPLICATED
[2019-10-10 08:28] LABS: ALBUMIN 2.8 g/dl (3.4-5.0); BILIRUBIN,TOTAL 1.3 mg/dL (0.2-1); BLOOD UREA NITROGEN 25.4 mg/dL (7-18); CREATININE 1.2 mg/dL (0.55-1.3); POTASSIUM 3.4 mmol/L (3.5-5.1)
[2019-10-10] MEDS: hydrALAZINE HCL 25 MG TABLET (FP) PO SCH ×4 (10:50→21:53)
[2019-10-10] MEDS: METOPROLOL TARTRATE 50 MG TABLET (FP) PO SCH ×2 (10:51→21:54)
[2019-10-10] MEDS: APIXABAN 2.5 MG TABLET PO SCH ×2 (10:52→21:53)
[2019-10-10] MEDS: LISINOPRIL 5 MG TABLET (FP) PO SCH (10:52)
[2019-10-10] MEDS: BUDESONIDE/FORMETEROL FUMARATE 80/4.5 mcg INHALER IH SCH ×2 (10:52→21:59)
[2019-10-10] MEDS: FAMOTIDINE 20 MG/50 ML IVPB 20 MG/50 ML MG IVPB SCH ×2 (10:52→21:34)
[2019-10-10] MEDS: CHLORHEXIDINE GLUCONATE 0.12% 15ML CUP MM SCH ×2 (10:53→21:34)
--- NOTE | 2019-10-10 11:05 | PN ---
Progress Note (short form) - Note Progress Note: PULMONARY Denies shortness of breath. +nonproductive cough. No fevers. Vital Signs Period Temp Pulse Resp BP Sys/Salgado Pulse Ox Last 24 Hr 97.0 F-97.8 F 64-105 15-26 131-185/61-101 97-100 Gen: NAD at rest Heart: RRR Lung: distant breath sounds Abd: soft, nontender Ext: no edema CBC, BMP 10/10/19 06:22 10/10/19 06:22 Active Medications Acetaminophen (Tylenol Oral Solution -) 1,000 mg PO Q6H PRN PRN Reason: FEVER Last Admin: 10/10/19 04:13 Dose: 1,000 mg Apixaban (Eliquis -) 2.5 mg PO BID [facility] Last Admin: 10/10/19 10:52 Dose: 2.5 mg Budesonide/Formoterol Fumarate (Symbicort 80/4.5mcg -) 2 puff IH BID [facility] Last Admin: 10/10/19 10:52 Dose: 2 puff Bupropion HCl (Wellbutrin Xl -) 300 mg PO DAILY [facility] Last Admin: 10/10/19 10:51 Dose: 300 mg Chlorhexidine Gluconate (Hibiclens For Decolonization -) 1 applic TP HS [facility] Last Admin: 10/09/19 21:58 Dose: 1 applic Chlorhexidine Gluconate (Peridex -) 15 ml MM BID [facility] Last Admin: 10/10/19 10:53 Dose: Not Given Ergocalciferol (Drisdol -) 50,000 unit PO We@1000 [facility] Last Admin: 10/06/19 09:10 Dose: 50,000 unit Gabapentin (Neurontin Oral Liquid -) 300 mg PO TID [facility] Last Admin: 10/10/19 05:26 Dose: 300 mg Hydralazine HCl (Apresoline Injection -) 10 mg IVPUSH Q6H PRN PRN Reason: HYPERTENSION Last Admin: 10/10/19 03:30 Dose: 10 mg Hydralazine HCl (Apresoline -) 75 mg PO QID [facility] Last Admin: 10/10/19 10:50 Dose: 75 mg Famotidine/Sodium Chloride (Pepcid 20 Mg Premixed Ivpb -) 20 mg in 50 mls @ 100 mls/hr IVPB BID [facility] Last Admin: 10/10/19 10:52 Dose: 100 mls/hr Insulin Aspart (Novolog Vial Sliding Scale -) 1 vial SQ ACHS [facility]; Protocol Last Admin: 10/09/19 22:04 Dose: Not Given Levalbuterol HCl (Xopenex) 0.63 mg IH RTID [facility] Last Admin: 10/10/19 07:13 Dose: 0.63 mg Lisinopril (Prinivil) 5 mg PO DAILY [facility] Last Admin: 10/10/19 10:52 Dose: 5 mg Melatonin (Melatonin) 10 mg PO HS [facility] Last Admin: 10/09/19 21:57 Dose: 10 mg Metoprolol Tartrate (Lopressor -) 200 mg PO BID [facility] Last Admin: 10/10/19 10:51 Dose: 200 mg Verapamil HCl (Calan Sr -) 240 mg PO DAILY [facility] Last Admin: 10/09/19 10:33 Dose: 240 mg Verapamil HCl (Calan Injection -) 5 mg IVPUSH Q6H PRN PRN Reason: TACHYCARDIA A/P Acute on Chronic Hypoxic and Hypercapneic Respiratory Failure Influenza A Pneumonia Acute COPD Exacerbation Atrial Fibrillation with RVR LV Diastolic Dysfunction Thrombocytopenia HTN DM CKD Obstructive Sleep Apnea - completed antibiotics, tamiflu - off medrol - inhaled bronchodilators - O2 to keep SpO2 >90% - rate control - continue anticoagulation - DVT/GI prophylaxis - d/c planning
[2019-10-10] MEDS: VERAPAMIL HCL 240 MG E.R. TABLET PO SCH (11:12)
[2019-10-10] MEDS: INSULIN SLIDING SCALE (NOVOLOG) 1 VIAL SQ SCH ×4 (12:00→22:08)
[2019-10-10] MEDS: CHLORHEXIDINE GLUCONATE 4% CLEANSER FOR DECOLONIZATION TP SCH (21:54)
[2019-10-10] MEDS: MELATONIN 5 MG TABLETS PO SCH (21:54)
[2019-10-11] MEDS: GABAPENTIN 250 MG/5 ML ORAL SOLUTION, 470 ML BOTTLE PO SCH ×3 (05:23→21:19)
[2019-10-11] MEDS: INSULIN SLIDING SCALE (NOVOLOG) 1 VIAL SQ SCH ×4 (06:02→21:19)
[2019-10-11 06:52] LABS: BLOOD UREA NITROGEN 22.7 mg/dL (7-18); CREATININE 1.2 mg/dL (0.55-1.3); POTASSIUM 3.5 mmol/L (3.5-5.1)
[2019-10-11] MEDS: LEVALBUTEROL HCL 0.63 MG/3 ML VIAL.NEB. IH SCH ×3 (07:25→22:00)
--- NOTE | 2019-10-11 08:12 | PN ---
Progress Note, Physician Chief Complaint: AWAKE ALERT BP ELEVATED TODAY DENIES FEVER OR CHILLS - Current Medication List Current Medications: Active Medications Acetaminophen (Tylenol Oral Solution -) 1,000 mg PO Q6H PRN PRN Reason: FEVER Last Admin: 10/10/19 04:13 Dose: 1,000 mg Apixaban (Eliquis -) 2.5 mg PO BID [facility] Last Admin: 10/10/19 21:53 Dose: 2.5 mg Budesonide/Formoterol Fumarate (Symbicort 80/4.5mcg -) 2 puff IH BID [facility] Last Admin: 10/10/19 21:59 Dose: 2 puff Bupropion HCl (Wellbutrin Xl -) 300 mg PO DAILY [facility] Last Admin: 10/10/19 10:51 Dose: 300 mg Chlorhexidine Gluconate (Hibiclens For Decolonization -) 1 applic TP HS [facility] Last Admin: 10/10/19 21:54 Dose: 1 applic Chlorhexidine Gluconate (Peridex -) 15 ml MM BID [facility] Last Admin: 10/10/19 21:34 Dose: 15 ml Ergocalciferol (Drisdol -) 50,000 unit PO We@1000 [facility] Last Admin: 10/06/19 09:10 Dose: 50,000 unit Gabapentin (Neurontin Oral Liquid -) 300 mg PO TID [facility] Last Admin: 10/11/19 05:23 Dose: 300 mg Hydralazine HCl (Apresoline Injection -) 10 mg IVPUSH Q6H PRN PRN Reason: HYPERTENSION Last Admin: 10/10/19 03:30 Dose: 10 mg Hydralazine HCl (Apresoline -) 75 mg PO QID [facility] Last Admin: 10/10/19 21:53 Dose: 75 mg Famotidine/Sodium Chloride (Pepcid 20 Mg Premixed Ivpb -) 20 mg in 50 mls @ 100 mls/hr IVPB BID [facility] Last Admin: 10/10/19 21:34 Dose: 100 mls/hr Insulin Aspart (Novolog Vial Sliding Scale -) 1 vial SQ ACHS [facility]; Protocol Last Admin: 10/11/19 06:02 Dose: Not Given Levalbuterol HCl (Xopenex) 0.63 mg IH RTID [facility] Last Admin: 10/10/19 21:25 Dose: 0.63 mg Lisinopril (Prinivil) 5 mg PO DAILY [facility] Last Admin: 10/10/19 10:52 Dose: 5 mg Melatonin (Melatonin) 10 mg PO HS [facility] Last Admin: 10/10/19 21:54 Dose: 10 mg Metoprolol Tartrate (Lopressor -) 200 mg PO BID [facility] Last Admin: 10/10/19 21:54 Dose: 200 mg Verapamil HCl (Calan Sr -) 240 mg PO DAILY [facility] Last Admin: 10/10/19 11:12 Dose: 240 mg Verapamil HCl (Calan Injection -) 5 mg IVPUSH Q6H PRN PRN Reason: TACHYCARDIA - Objective Vital Signs: Vital Signs Temperature 97.8 F 10/11/19 05:00 Pulse Rate 105 H 10/11/19 05:00 Respiratory Rate 22 H 10/11/19 05:00 Blood Pressure 159/95 10/11/19 05:00 O2 Sat by Pulse Oximetry (%) 96 10/11/19 05:00 Constitutional: Yes: No Distress Cardiovascular: Yes: Pulse Irregular Respiratory: Yes: On Nasal O2 Gastrointestinal: Yes: Soft Musculoskeletal: Yes: Muscle Weakness Edema: Yes Neurological: Yes: Pre-Existing Deficit Psychiatric: Yes: Other Labs: CBC, BMP 10/10/19 06:22 10/11/19 05:47 INR, PTT INR 1.16 (0.83-1.09) H 09/30/19 06:18 Fibrinogen 247.0 mg/dL (238-498) 09/30/19 06:18 Problem List - Problems (1) Acute exacerbation of COPD with asthma Code(s): J44.1 - CHRONIC OBSTRUCTIVE PULMONARY DISEASE W (ACUTE) EXACERBATION; J45.901 - UNSPECIFIED ASTHMA WITH (ACUTE) EXACERBATION (2) Acute respiratory failure Code(s): J96.00 - ACUTE RESPIRATORY FAILURE, UNSP W HYPOXIA OR HYPERCAPNIA (3) Influenza A Code(s): J10.1 - FLU DUE TO OTH IDENT INFLUENZA VIRUS W OTH RESP MANIFEST (4) Pneumonia Code(s): J18.9 - PNEUMONIA, UNSPECIFIED ORGANISM Qualifiers: Pneumonia type: due to unspecified organism Laterality: unspecified laterality Lung location: unspecified part of lung Qualified Code(s): J18.9 - Pneumonia, unspecified organism (5) JOSEPH (acute kidney injury) Code(s): N17.9 - ACUTE KIDNEY FAILURE, UNSPECIFIED (6) Abnormal CT of the chest Code(s): R93.89 - ABNORMAL FINDINGS ON DX IMAGING OF OTH BODY STRUCTURES (7) Acute exacerbation of chronic obstructive pulmonary disease (COPD) Code(s): J44.1 - CHRONIC OBSTRUCTIVE PULMONARY DISEASE W (ACUTE) EXACERBATION (8) Acute kidney injury superimposed on CKD Code(s): N17.9 - ACUTE KIDNEY FAILURE, UNSPECIFIED; N18.9 - CHRONIC KIDNEY DISEASE, UNSPECIFIED (9) Acute on chronic diastolic (congestive) heart failure Code(s): I50.33 - ACUTE ON CHRONIC DIASTOLIC (CONGESTIVE) HEART FAILURE (10) Afib Code(s): I48.91 - UNSPECIFIED ATRIAL FIBRILLATION Qualifiers: Atrial fibrillation type: unspecified Qualified Code(s): I48.91 - Unspecified atrial fibrillation (11) Anxiety and depression Code(s): F41.9 - ANXIETY DISORDER, UNSPECIFIED; F32.9 - MAJOR DEPRESSIVE DISORDER, SINGLE EPISODE, UNSPECIFIED (12) Leg edema Code(s): R60.0 - LOCALIZED EDEMA (13) Cigarette nicotine dependence Code(s): F17.200 - NICOTINE DEPENDENCE, UNSPECIFIED, UNCOMPLICATED Assessment/Plan DC PLANNING TODAY CHANGE MEDS TO PO PT EVAL OOB TO CHAIR I CALLED [facility] WITH [facility] BED IS READY
[2019-10-11] MEDS: hydrALAZINE HCL 20 MG/ML VIAL IVPUSH PRN (08:16)
[2019-10-11] MEDS: METOPROLOL TARTRATE 50 MG TABLET (FP) PO SCH ×2 (09:14→21:19)
[2019-10-11] MEDS: CHLORHEXIDINE GLUCONATE 0.12% 15ML CUP MM SCH ×2 (09:15→21:20)
[2019-10-11] MEDS: hydrALAZINE HCL 25 MG TABLET (FP) PO SCH ×4 (09:15→21:19)
[2019-10-11] MEDS: APIXABAN 2.5 MG TABLET PO SCH ×2 (09:15→21:19)
[2019-10-11] MEDS: FUROSEMIDE 40 MG TABLET (FP) PO SCH (09:17)
[2019-10-11] MEDS: LISINOPRIL 5 MG TABLET (FP) PO SCH (09:17)
[2019-10-11] MEDS: PANTOPRAZOLE 40 MG TABLET PO SCH (09:22)
[2019-10-11] MEDS: VERAPAMIL HCL 240 MG E.R. TABLET PO SCH (09:22)
[2019-10-11] MEDS: BUDESONIDE/FORMETEROL FUMARATE 80/4.5 mcg INHALER IH SCH ×2 (09:30→21:20)
[2019-10-11] MEDS ORDERED: clonazePAM 0.5 MG TABLET PO SCH (10:00)
--- NOTE | 2019-10-11 13:04 | PN ---
Progress Note (short form) - Note Progress Note: PULMONARY More somnolent today, was started on klonopin this AM. Vital Signs Period Temp Pulse Resp BP Sys/Salgado Pulse Ox Last 24 Hr 97.8 F-98.2 F 59-116 16-22 136-179/70-168 95-98 Gen: somnolent Heart: RRR Lung: distant breath sounds Abd: soft, nontender Ext: no edema CBC, BMP 10/10/19 06:22 10/11/19 05:47 Active Medications Acetaminophen (Tylenol Oral Solution -) 1,000 mg PO Q6H PRN PRN Reason: FEVER Last Admin: 10/10/19 04:13 Dose: 1,000 mg Apixaban (Eliquis -) 2.5 mg PO BID [facility] Last Admin: 10/11/19 09:15 Dose: 2.5 mg Budesonide/Formoterol Fumarate (Symbicort 80/4.5mcg -) 2 puff IH BID [facility] Last Admin: 10/11/19 09:30 Dose: 2 puff Bupropion HCl (Wellbutrin Xl -) 300 mg PO DAILY [facility] Last Admin: 10/11/19 09:29 Dose: 300 mg Chlorhexidine Gluconate (Peridex -) 15 ml MM BID [facility] Last Admin: 10/11/19 09:15 Dose: 15 ml Clonazepam (Klonopin -) 1 mg PO BID [facility] Last Admin: 10/11/19 09:21 Dose: 1 mg Ergocalciferol (Drisdol -) 50,000 unit PO We@1000 [facility] Last Admin: 10/06/19 09:10 Dose: 50,000 unit Furosemide (Lasix -) 40 mg PO DAILY [facility] Last Admin: 10/11/19 09:17 Dose: 40 mg Gabapentin (Neurontin Oral Liquid -) 300 mg PO TID [facility] Last Admin: 10/11/19 05:23 Dose: 300 mg Hydralazine HCl (Apresoline -) 75 mg PO QID [facility] Last Admin: 10/11/19 09:15 Dose: 75 mg Insulin Aspart (Novolog Vial Sliding Scale -) 1 vial SQ ACHS [facility]; Protocol Last Admin: 10/11/19 10:44 Dose: Not Given Levalbuterol HCl (Xopenex) 0.63 mg IH RTID [facility] Last Admin: 10/11/19 07:25 Dose: 0.63 mg Lisinopril (Prinivil) 5 mg PO DAILY [facility] Last Admin: 10/11/19 09:17 Dose: 5 mg Melatonin (Melatonin) 10 mg PO HS [facility] Last Admin: 10/10/19 21:54 Dose: 10 mg Metoprolol Tartrate (Lopressor -) 200 mg PO BID [facility] Last Admin: 10/11/19 09:14 Dose: 200 mg Pantoprazole Sodium (Protonix -) 40 mg PO DAILY [facility] Last Admin: 10/11/19 09:22 Dose: 40 mg Verapamil HCl (Calan Sr -) 240 mg PO DAILY [facility] Last Admin: 10/11/19 09:22 Dose: 240 mg A/P Acute on Chronic Hypoxic and Hypercapneic Respiratory Failure Influenza A Pneumonia Acute COPD Exacerbation Atrial Fibrillation with RVR LV Diastolic Dysfunction Thrombocytopenia HTN DM CKD Obstructive Sleep Apnea Anemia - would decrease dose or hold klonopin - completed antibiotics, tamiflu - off medrol - inhaled bronchodilators - O2 to keep SpO2 >90% - rate control - continue anticoagulation - DVT/GI prophylaxis - d/c planning
[2019-10-11 13:50] LABS: ARTERIAL BLD GAS O2 SATURATION 96.7 % (95-98); ARTERIAL BLOOD GAS BASE EXCESS 7.3 meq/l (-2-2); ARTERIAL BLOOD GAS PCO2 63.2 mmHg (35-45); ARTERIAL BLOOD GAS PO2 102 mmHg (80-100); ARTERIAL BLOOD GAS pH 7.36 (7.35-7.45)
[2019-10-11 13:55] LABS: ALLENS TEST POSITIVE
--- NOTE | 2019-10-11 16:51 | PN ---
Progress Note, Physician History of Present Illness: Pt seen and examined at bedside. SHe has poor po intake. - Current Medication List Current Medications: Active Medications Acetaminophen (Tylenol Oral Solution -) 1,000 mg PO Q6H PRN PRN Reason: FEVER Last Admin: 10/10/19 04:13 Dose: 1,000 mg Apixaban (Eliquis -) 2.5 mg PO BID [facility] Last Admin: 10/11/19 09:15 Dose: 2.5 mg Budesonide/Formoterol Fumarate (Symbicort 80/4.5mcg -) 2 puff IH BID [facility] Last Admin: 10/11/19 09:30 Dose: 2 puff Bupropion HCl (Wellbutrin Xl -) 300 mg PO DAILY [facility] Last Admin: 10/11/19 09:29 Dose: 300 mg Chlorhexidine Gluconate (Peridex -) 15 ml MM BID [facility] Last Admin: 10/11/19 09:15 Dose: 15 ml Ergocalciferol (Drisdol -) 50,000 unit PO We@1000 [facility] Last Admin: 10/06/19 09:10 Dose: 50,000 unit Furosemide (Lasix -) 40 mg PO DAILY [facility] Last Admin: 10/11/19 09:17 Dose: 40 mg Gabapentin (Neurontin Oral Liquid -) 300 mg PO TID [facility] Last Admin: 10/11/19 13:36 Dose: Not Given Hydralazine HCl (Apresoline -) 75 mg PO QID [facility] Last Admin: 10/11/19 13:36 Dose: Not Given Insulin Aspart (Novolog Vial Sliding Scale -) 1 vial SQ ACHS [facility]; Protocol Last Admin: 10/11/19 10:44 Dose: Not Given Levalbuterol HCl (Xopenex) 0.63 mg IH RTID [facility] Last Admin: 10/11/19 14:17 Dose: 0.63 mg Lisinopril (Prinivil) 5 mg PO DAILY [facility] Last Admin: 10/11/19 09:17 Dose: 5 mg Melatonin (Melatonin) 10 mg PO HS [facility] Last Admin: 10/10/19 21:54 Dose: 10 mg Metoprolol Tartrate (Lopressor -) 200 mg PO BID [facility] Last Admin: 10/11/19 09:14 Dose: 200 mg Pantoprazole Sodium (Protonix -) 40 mg PO DAILY [facility] Last Admin: 10/11/19 09:22 Dose: 40 mg Verapamil HCl (Calan Sr -) 240 mg PO DAILY [facility] Last Admin: 10/11/19 09:22 Dose: 240 mg - Objective Vital Signs: Vital Signs Temperature 97.9 F 10/11/19 12:00 Pulse Rate 59 L 10/11/19 16:00 Respiratory Rate 22 H 10/11/19 16:00 Blood Pressure 137/85 10/11/19 16:00 O2 Sat by Pulse Oximetry (%) 96 10/11/19 08:15 Constitutional: Yes: Calm Eyes: Yes: Conjunctiva Clear HENT: Yes: Atraumatic Neck: Yes: Supple Cardiovascular: Yes: S1, S2 Respiratory: Yes: On Nasal O2, Rhonchi Gastrointestinal: Yes: Soft Genitourinary: Yes: WNL Musculoskeletal: Yes: WNL Edema: No Neurological: Yes: Confusion Labs: CBC, BMP 10/10/19 06:22 10/11/19 05:47 INR, PTT INR 1.16 (0.83-1.09) H 09/30/19 06:18 Fibrinogen 247.0 mg/dL (238-498) 09/30/19 06:18 - ....Imaging Chest X-ray: Report Reviewed Problem List - Problems (1) CKD (chronic kidney disease) Code(s): N18.9 - CHRONIC KIDNEY DISEASE, UNSPECIFIED Assessment/Plan Current Medications Generic Name Dose Route Start Last Admin Trade Name Freq PRN Reason Stop Dose Admin Acetaminophen 1,000 mg 10/05/19 18:21 10/10/19 04:13 Tylenol Oral Solution - PO 1,000 mg Q6H PRN Administration FEVER Apixaban 2.5 mg 10/05/19 22:00 10/11/19 09:15 Eliquis - PO 2.5 mg BID [facility] Administration Budesonide/Formoterol Fumarate 2 puff 10/05/19 22:00 10/11/19 09:30 Symbicort 80/4.5mcg - IH 2 puff BID [facility] Administration Bupropion HCl 300 mg 10/06/19 10:00 10/11/19 09:29 Wellbutrin Xl - PO 300 mg DAILY [facility] Administration Chlorhexidine Gluconate 15 ml 10/05/19 22:00 10/11/19 09:15 Peridex - MM 15 ml BID [facility] Administration Ergocalciferol 50,000 unit 10/06/19 10:00 10/06/19 09:10 Drisdol - PO 50,000 unit We@1000 [facility] Administration Furosemide 40 mg 10/11/19 10:00 10/11/19 09:17 Lasix - PO 40 mg DAILY [facility] Administration Gabapentin 300 mg 10/05/19 22:00 10/11/19 13:36 Neurontin Oral Liquid - PO Not Given TID [facility] Hydralazine HCl 75 mg 10/07/19 17:15 10/11/19 13:36 Apresoline - PO Not Given QID [facility] Insulin Aspart 1 vial 10/05/19 22:00 10/11/19 10:44 Novolog Vial Sliding Scale - SQ Not Given ACHS [facility] Protocol Levalbuterol HCl 0.63 mg 10/05/19 20:00 10/11/19 14:17 Xopenex IH 0.63 mg RTID [facility] Administration Lisinopril 5 mg 10/06/19 10:00 10/11/19 09:17 Prinivil PO 5 mg DAILY [facility] Administration Melatonin 10 mg 10/05/19 22:00 10/10/19 21:54 Melatonin PO 10 mg HS [facility] Administration Metoprolol Tartrate 200 mg 10/05/19 22:00 10/11/19 09:14 Lopressor - PO 200 mg BID [facility] Administration Pantoprazole Sodium 40 mg 10/11/19 10:00 10/11/19 09:22 Protonix - PO 40 mg DAILY [facility] Administration Verapamil HCl 240 mg 10/06/19 10:00 10/11/19 09:22 Calan Sr - PO 240 mg DAILY [facility] Administration Impression 1. CKD 2. CHF 3. a-fib 4. lower ext edema 5. COPD 6. active smoker 7. non compliance 8. acute resp failure 9. influenza 10. hypernatremia Plan - con lasix - low dose clinimix - encourage po intake - will need outpt follow up - avoid nsaids - repeat labs in am
[2019-10-11] MEDS ORDERED: AMINO ACIDS 4.25%/D5W 1,000 ML IV SCH (17:00)
[2019-10-11] MEDS: MELATONIN 5 MG TABLETS PO SCH (21:19)
[2019-10-12] MEDS ORDERED: PT OWN MED DRAWER 7, Y5N ONE (05:59)
[2019-10-12] MEDS: GABAPENTIN 250 MG/5 ML ORAL SOLUTION, 470 ML BOTTLE PO SCH ×3 (06:14→22:02)
[2019-10-12] MEDS: INSULIN SLIDING SCALE (NOVOLOG) 1 VIAL SQ SCH ×4 (06:15→21:58)
[2019-10-12] MEDS: LEVALBUTEROL HCL 0.63 MG/3 ML VIAL.NEB. IH SCH ×3 (07:25→21:00)
[2019-10-12 07:26] LABS: BILIRUBIN,TOTAL 1.3 mg/dL (0.2-1); BLOOD UREA NITROGEN 25.8 mg/dL (7-18); CREATININE 1.2 mg/dL (0.55-1.3); POTASSIUM 3.4 mmol/L (3.5-5.1); TOT PROT 6.3 g/dl (6.4-8.2)
[2019-10-12] MEDS ORDERED: POTASSIUM CHLORIDE TABS 10 MEQ TABLET.ER (FP) PO ONE (08:27)
--- NOTE | 2019-10-12 08:27 | PN ---
Progress Note (short form) - Note Progress Note: DC PLANNING PENDING AUTHORIZATION PATIENT READY FOR DISCHARGE FORMS AND PAPERWORK COMPLETED Problem List - Problems (1) Acute exacerbation of COPD with asthma Code(s): J44.1 - CHRONIC OBSTRUCTIVE PULMONARY DISEASE W (ACUTE) EXACERBATION; J45.901 - UNSPECIFIED ASTHMA WITH (ACUTE) EXACERBATION (2) Acute respiratory failure Code(s): J96.00 - ACUTE RESPIRATORY FAILURE, UNSP W HYPOXIA OR HYPERCAPNIA (3) Influenza A Code(s): J10.1 - FLU DUE TO OTH IDENT INFLUENZA VIRUS W OTH RESP MANIFEST (4) Pneumonia Code(s): J18.9 - PNEUMONIA, UNSPECIFIED ORGANISM Qualifiers: Pneumonia type: due to unspecified organism Laterality: unspecified laterality Lung location: unspecified part of lung Qualified Code(s): J18.9 - Pneumonia, unspecified organism (5) JOSEPH (acute kidney injury) Code(s): N17.9 - ACUTE KIDNEY FAILURE, UNSPECIFIED (6) Abnormal CT of the chest Code(s): R93.89 - ABNORMAL FINDINGS ON DX IMAGING OF [facility] BODY STRUCTURES (7) Acute exacerbation of chronic obstructive pulmonary disease (COPD) Code(s): J44.1 - CHRONIC OBSTRUCTIVE PULMONARY DISEASE W (ACUTE) EXACERBATION (8) Acute kidney injury superimposed on CKD Code(s): N17.9 - ACUTE KIDNEY FAILURE, UNSPECIFIED; N18.9 - CHRONIC KIDNEY DISEASE, UNSPECIFIED (9) Acute on chronic diastolic (congestive) heart failure Code(s): I50.33 - ACUTE ON CHRONIC DIASTOLIC (CONGESTIVE) HEART FAILURE (10) Afib Code(s): I48.91 - UNSPECIFIED ATRIAL FIBRILLATION Qualifiers: Atrial fibrillation type: unspecified Qualified Code(s): I48.91 - Unspecified atrial fibrillation (11) Anxiety and depression Code(s): F41.9 - ANXIETY DISORDER, UNSPECIFIED; F32.9 - MAJOR DEPRESSIVE DISORDER, SINGLE EPISODE, UNSPECIFIED (12) Leg edema Code(s): R60.0 - LOCALIZED EDEMA (13) Cigarette nicotine dependence Code(s): F17.200 - NICOTINE DEPENDENCE, UNSPECIFIED, UNCOMPLICATED
[2019-10-12] MEDS ORDERED: POTASSIUM CHLORIDE TABS 20 MEQ TABLET.ER (FP) PO ONE (08:45)
[2019-10-12] MEDS: FUROSEMIDE 40 MG TABLET (FP) PO SCH (09:23)
[2019-10-12] MEDS: METOPROLOL TARTRATE 50 MG TABLET (FP) PO SCH ×2 (09:23→22:00)
[2019-10-12] MEDS: LISINOPRIL 5 MG TABLET (FP) PO SCH (09:23)
[2019-10-12] MEDS: PANTOPRAZOLE 40 MG TABLET PO SCH (09:23)
[2019-10-12] MEDS: APIXABAN 2.5 MG TABLET PO SCH ×2 (09:23→22:01)
[2019-10-12] MEDS: hydrALAZINE HCL 25 MG TABLET (FP) PO SCH ×4 (09:23→22:01)
[2019-10-12] MEDS: VERAPAMIL HCL 240 MG E.R. TABLET PO SCH (09:24)
[2019-10-12] MEDS: CHLORHEXIDINE GLUCONATE 0.12% 15ML CUP MM SCH ×2 (09:24→22:16)
[2019-10-12] MEDS: BUDESONIDE/FORMETEROL FUMARATE 80/4.5 mcg INHALER IH SCH ×2 (11:25→22:12)
--- NOTE | 2019-10-12 13:33 | PN ---
Progress Note (short form) - Note Progress Note: PULMONARY More awake today, tolerating PO. Vital Signs Period Temp Pulse Resp BP Sys/Salgado Pulse Ox Last 24 Hr 97.8 F-98.6 F 59-119 19-25 137-172/67-95 96-97 Gen: more alert, awake Heart: RRR Lung: distant breath sounds Abd: soft, nontender Ext: no edema CBC, BMP 10/10/19 06:22 10/12/19 05:47 Active Medications Acetaminophen (Tylenol Oral Solution -) 1,000 mg PO Q6H PRN PRN Reason: FEVER Last Admin: 10/10/19 04:13 Dose: 1,000 mg Apixaban (Eliquis -) 2.5 mg PO BID [facility] Last Admin: 10/12/19 09:23 Dose: 2.5 mg Budesonide/Formoterol Fumarate (Symbicort 80/4.5mcg -) 2 puff IH BID [facility] Last Admin: 10/12/19 11:25 Dose: 2 puff Bupropion HCl (Wellbutrin Xl -) 300 mg PO DAILY [facility] Last Admin: 10/12/19 09:24 Dose: 300 mg Chlorhexidine Gluconate (Peridex -) 15 ml MM BID [facility] Last Admin: 10/12/19 09:24 Dose: 15 ml Ergocalciferol (Drisdol -) 50,000 unit PO We@1000 [facility] Last Admin: 10/06/19 09:10 Dose: 50,000 unit Furosemide (Lasix -) 40 mg PO DAILY [facility] Last Admin: 10/12/19 09:23 Dose: 40 mg Gabapentin (Neurontin Oral Liquid -) 300 mg PO TID [facility] Last Admin: 10/12/19 13:09 Dose: 300 mg Hydralazine HCl (Apresoline -) 75 mg PO QID [facility] Last Admin: 10/12/19 13:09 Dose: 75 mg Amino Acids (Clinimix -) 1,000 mls @ 42 mls/hr IV Q24H [facility] Last Admin: 10/11/19 17:16 Dose: 42 mls/hr Insulin Aspart (Novolog Vial Sliding Scale -) 1 vial SQ ACHS [facility]; Protocol Last Admin: 10/12/19 12:48 Dose: Not Given Levalbuterol HCl (Xopenex) 0.63 mg IH RTID [facility] Last Admin: 10/12/19 07:25 Dose: 0.63 mg Lisinopril (Prinivil) 5 mg PO DAILY [facility] Last Admin: 10/12/19 09:23 Dose: 5 mg Melatonin (Melatonin) 10 mg PO HS [facility] Last Admin: 10/11/19 21:19 Dose: 10 mg Metoprolol Tartrate (Lopressor -) 200 mg PO BID [facility] Last Admin: 10/12/19 09:23 Dose: 200 mg Pantoprazole Sodium (Protonix -) 40 mg PO DAILY [facility] Last Admin: 10/12/19 09:23 Dose: 40 mg Potassium Chloride (K-Dur -) 20 meq PO ONCE ONE Stop: 10/12/19 08:28 Verapamil HCl (Calan Sr -) 240 mg PO DAILY [facility] Last Admin: 10/12/19 09:24 Dose: 240 mg A/P Acute on Chronic Hypoxic and Hypercapneic Respiratory Failure Influenza A Pneumonia Acute COPD Exacerbation Atrial Fibrillation with RVR LV Diastolic Dysfunction Thrombocytopenia HTN DM CKD Obstructive Sleep Apnea Anemia - completed antibiotics, tamiflu - off medrol - inhaled bronchodilators - O2 to keep SpO2 >90% - rate control - continue anticoagulation - DVT/GI prophylaxis - d/c planning
--- NOTE | 2019-10-12 14:49 | PN ---
Progress Note, Physician History of Present Illness: Pt seen and examined at bedside. She is more awake and interactive today. - Current Medication List Current Medications: Active Medications Acetaminophen (Tylenol Oral Solution -) 1,000 mg PO Q6H PRN PRN Reason: FEVER Last Admin: 10/10/19 04:13 Dose: 1,000 mg Apixaban (Eliquis -) 2.5 mg PO BID [facility] Last Admin: 10/12/19 09:23 Dose: 2.5 mg Budesonide/Formoterol Fumarate (Symbicort 80/4.5mcg -) 2 puff IH BID [facility] Last Admin: 10/12/19 11:25 Dose: 2 puff Bupropion HCl (Wellbutrin Xl -) 300 mg PO DAILY [facility] Last Admin: 10/12/19 09:24 Dose: 300 mg Chlorhexidine Gluconate (Peridex -) 15 ml MM BID [facility] Last Admin: 10/12/19 09:24 Dose: 15 ml Ergocalciferol (Drisdol -) 50,000 unit PO We@1000 [facility] Last Admin: 10/06/19 09:10 Dose: 50,000 unit Furosemide (Lasix -) 40 mg PO DAILY [facility] Last Admin: 10/12/19 09:23 Dose: 40 mg Gabapentin (Neurontin Oral Liquid -) 300 mg PO TID [facility] Last Admin: 10/12/19 13:09 Dose: 300 mg Hydralazine HCl (Apresoline -) 75 mg PO QID [facility] Last Admin: 10/12/19 13:09 Dose: 75 mg Amino Acids (Clinimix -) 1,000 mls @ 42 mls/hr IV Q24H [facility] Last Admin: 10/11/19 17:16 Dose: 42 mls/hr Insulin Aspart (Novolog Vial Sliding Scale -) 1 vial SQ ACHS [facility]; Protocol Last Admin: 10/12/19 12:48 Dose: Not Given Levalbuterol HCl (Xopenex) 0.63 mg IH RTID [facility] Last Admin: 10/12/19 07:25 Dose: 0.63 mg Lisinopril (Prinivil) 5 mg PO DAILY [facility] Last Admin: 10/12/19 09:23 Dose: 5 mg Melatonin (Melatonin) 10 mg PO HS [facility] Last Admin: 10/11/19 21:19 Dose: 10 mg Metoprolol Tartrate (Lopressor -) 200 mg PO BID [facility] Last Admin: 10/12/19 09:23 Dose: 200 mg Pantoprazole Sodium (Protonix -) 40 mg PO DAILY [facility] Last Admin: 10/12/19 09:23 Dose: 40 mg Potassium Chloride (K-Dur -) 20 meq PO ONCE ONE Stop: 10/12/19 08:28 Verapamil HCl (Calan Sr -) 240 mg PO DAILY [facility] Last Admin: 10/12/19 09:24 Dose: 240 mg - Objective Vital Signs: Vital Signs Temperature 98.4 F 10/12/19 13:12 Pulse Rate 74 10/12/19 13:12 Respiratory Rate 20 10/12/19 13:12 Blood Pressure 149/79 10/12/19 13:12 O2 Sat by Pulse Oximetry (%) 96 10/12/19 08:51 Constitutional: Yes: Calm Eyes: Yes: Conjunctiva Clear HENT: Yes: Atraumatic Neck: Yes: Supple Cardiovascular: Yes: S1, S2 Respiratory: Yes: On Nasal O2, Wheezes Gastrointestinal: Yes: Soft Genitourinary: Yes: WNL Musculoskeletal: Yes: WNL Edema: No Neurological: Yes: Oriented Psychiatric: Yes: Oriented Labs: CBC, BMP 10/10/19 06:22 10/12/19 05:47 INR, PTT INR 1.16 (0.83-1.09) H 09/30/19 06:18 Fibrinogen 247.0 mg/dL (238-498) 09/30/19 06:18 Problem List - Problems (1) CKD (chronic kidney disease) Code(s): N18.9 - CHRONIC KIDNEY DISEASE, UNSPECIFIED Assessment/Plan Current Medications Generic Name Dose Route Start Last Admin Trade Name Freq PRN Reason Stop Dose Admin Acetaminophen 1,000 mg 10/05/19 18:21 10/10/19 04:13 Tylenol Oral Solution - PO 1,000 mg Q6H PRN Administration FEVER Apixaban 2.5 mg 10/05/19 22:00 10/12/19 09:23 Eliquis - PO 2.5 mg BID [facility] Administration Budesonide/Formoterol Fumarate 2 puff 10/05/19 22:00 10/12/19 11:25 Symbicort 80/4.5mcg - IH 2 puff BID [facility] Administration Bupropion HCl 300 mg 10/06/19 10:00 10/12/19 09:24 Wellbutrin Xl - PO 300 mg DAILY [facility] Administration Chlorhexidine Gluconate 15 ml 10/05/19 22:00 10/12/19 09:24 Peridex - MM 15 ml BID [facility] Administration Ergocalciferol 50,000 unit 10/06/19 10:00 10/06/19 09:10 Drisdol - PO 50,000 unit We@1000 [facility] Administration Furosemide 40 mg 10/11/19 10:00 10/12/19 09:23 Lasix - PO 40 mg DAILY [facility] Administration Gabapentin 300 mg 10/05/19 22:00 10/12/19 13:09 Neurontin Oral Liquid - PO 300 mg TID [facility] Administration Hydralazine HCl 75 mg 10/07/19 17:15 10/12/19 13:09 Apresoline - PO 75 mg QID [facility] Administration Amino Acids 1,000 mls @ 42 mls/hr 10/11/19 17:00 10/11/19 17:16 Clinimix - IV 42 mls/hr Q24H [facility] Administration Insulin Aspart 1 vial 10/05/19 22:00 10/12/19 12:48 Novolog Vial Sliding Scale - SQ Not Given ACHS [facility] Protocol Levalbuterol HCl 0.63 mg 10/05/19 20:00 10/12/19 07:25 Xopenex IH 0.63 mg RTID [facility] Administration Lisinopril 5 mg 10/06/19 10:00 10/12/19 09:23 Prinivil PO 5 mg DAILY [facility] Administration Melatonin 10 mg 10/05/19 22:00 10/11/19 21:19 Melatonin PO 10 mg HS [facility] Administration Metoprolol Tartrate 200 mg 10/05/19 22:00 10/12/19 09:23 Lopressor - PO 200 mg BID [facility] Administration Pantoprazole Sodium 40 mg 10/11/19 10:00 10/12/19 09:23 Protonix - PO 40 mg DAILY [facility] Administration Potassium Chloride 20 meq 10/12/19 08:27 K-Dur - PO 10/12/19 08:28 ONCE ONE Verapamil HCl 240 mg 10/06/19 10:00 10/12/19 09:24 Calan Sr - PO 240 mg DAILY [facility] Administration Impression 1. CKD 2. CHF 3. a-fib 4. lower ext edema 5. COPD 6. active smoker 7. non compliance 8. acute resp failure 9. influenza 10. hypernatremia Plan - replace potassium - cont lasix po - decrease clinimix rate - encourage po intake - will need outpt follow up - avoid nsaids - repeat labs in am
[2019-10-12] MEDS ORDERED: AMINO ACIDS 4.25%/D5W 1,000 ML IV SCH (14:50)
[2019-10-12] MEDS: MELATONIN 5 MG TABLETS PO SCH (22:01)
[2019-10-13] MEDS ORDERED: PT OWN MED DRAWER 7, Y5N ONE ×2 (05:41→09:28)
[2019-10-13] MEDS: INSULIN SLIDING SCALE (NOVOLOG) 1 VIAL SQ SCH ×3 (06:18→16:54)
[2019-10-13] MEDS: GABAPENTIN 250 MG/5 ML ORAL SOLUTION, 470 ML BOTTLE PO SCH ×2 (06:18→14:40)
[2019-10-13] MEDS: LEVALBUTEROL HCL 0.63 MG/3 ML VIAL.NEB. IH SCH ×2 (08:00→13:30)
[2019-10-13] MEDS: hydrALAZINE HCL 25 MG TABLET (FP) PO SCH ×3 (09:40→17:52)
[2019-10-13] MEDS: VERAPAMIL HCL 240 MG E.R. TABLET PO SCH (09:43)
[2019-10-13] MEDS: ERGOCALCIFEROL (VIT D2) 50,000 UNIT (1.25 MG) CAPSULE PO SCH (09:43)
[2019-10-13] MEDS: CHLORHEXIDINE GLUCONATE 0.12% 15ML CUP MM SCH (09:44)
[2019-10-13] MEDS: FUROSEMIDE 40 MG TABLET (FP) PO SCH (09:44)
[2019-10-13] MEDS: APIXABAN 2.5 MG TABLET PO SCH (09:44)
[2019-10-13] MEDS: METOPROLOL TARTRATE 50 MG TABLET (FP) PO SCH (09:45)
[2019-10-13] MEDS: PANTOPRAZOLE 40 MG TABLET PO SCH (09:46)
[2019-10-13] MEDS: LISINOPRIL 5 MG TABLET (FP) PO SCH (09:46)
[2019-10-13] MEDS: BUDESONIDE/FORMETEROL FUMARATE 80/4.5 mcg INHALER IH SCH (09:47)
--- NOTE | 2019-10-13 11:04 | PN ---
Progress Note (short form) - Note Progress Note: refusing snf placement wants to go home setting up [employer] Problem List - Problems (1) Acute exacerbation of COPD with asthma Code(s): J44.1 - CHRONIC OBSTRUCTIVE PULMONARY DISEASE W (ACUTE) EXACERBATION; J45.901 - UNSPECIFIED ASTHMA WITH (ACUTE) EXACERBATION (2) Acute respiratory failure Code(s): J96.00 - ACUTE RESPIRATORY FAILURE, UNSP W HYPOXIA OR HYPERCAPNIA (3) Influenza A Code(s): J10.1 - FLU DUE TO OTH IDENT INFLUENZA VIRUS W OTH RESP MANIFEST (4) Pneumonia Code(s): J18.9 - PNEUMONIA, UNSPECIFIED ORGANISM Qualifiers: Pneumonia type: due to unspecified organism Laterality: unspecified laterality Lung location: unspecified part of lung Qualified Code(s): J18.9 - Pneumonia, unspecified organism (5) JOSEPH (acute kidney injury) Code(s): N17.9 - ACUTE KIDNEY FAILURE, UNSPECIFIED (6) Abnormal CT of the chest Code(s): R93.89 - ABNORMAL FINDINGS ON DX IMAGING OF OT BODY STRUCTURES (7) Acute exacerbation of chronic obstructive pulmonary disease (COPD) Code(s): J44.1 - CHRONIC OBSTRUCTIVE PULMONARY DISEASE W (ACUTE) EXACERBATION (8) Acute kidney injury superimposed on CKD Code(s): N17.9 - ACUTE KIDNEY FAILURE, UNSPECIFIED; N18.9 - CHRONIC KIDNEY DISEASE, UNSPECIFIED (9) Acute on chronic diastolic (congestive) heart failure Code(s): I50.33 - ACUTE ON CHRONIC DIASTOLIC (CONGESTIVE) HEART FAILURE (10) Afib Code(s): I48.91 - UNSPECIFIED ATRIAL FIBRILLATION Qualifiers: Atrial fibrillation type: unspecified Qualified Code(s): I48.91 - Unspecified atrial fibrillation (11) Anxiety and depression Code(s): F41.9 - ANXIETY DISORDER, UNSPECIFIED; F32.9 - MAJOR DEPRESSIVE DISORDER, SINGLE EPISODE, UNSPECIFIED (12) Leg edema Code(s): R60.0 - LOCALIZED EDEMA (13) Cigarette nicotine dependence Code(s): F17.200 - NICOTINE DEPENDENCE, UNSPECIFIED, UNCOMPLICATED
--- NOTE | 2019-10-13 11:10 | DS ---
Physical Examination Vital Signs: Vital Signs Temperature 98.2 F 10/13/19 09:49 Pulse Rate 119 H 10/13/19 09:49 Respiratory Rate 22 H 10/13/19 09:49 Blood Pressure 178/94 H 10/13/19 09:49 O2 Sat by Pulse Oximetry (%) 95 10/13/19 08:42 Findings/Remarks: see previous Labs: CBC, BMP 10/10/19 06:22 10/12/19 05:47 Discharge Summary Problems reviewed: Yes Reason For Visit: HYPERCAPNIA,COPD,ACUTE EXACERBATION OF COPD Current Active Problems Acute exacerbation of COPD with asthma (Acute) Acute respiratory failure (Acute) Influenza A (Acute) Pneumonia (Acute) Hospital Course: ADMITTED FOR PNA AND RESPIRATORY DISTRES, INTUBATED AND TREATED WITH IV ABX AND TAMIFLU. TACHYCARDIA MONITORED AND MEDS ADJUSTED Goals: WILL BENEFIT FROM SNF Condition: Guarded - Instructions Diet, Activity, Other Instructions: MONITOR LABS AND HEART RATE PT EVAL LOW SALT DIET PSYCHIATRY F/U see your doctor in 2 days Disposition: VNS/HOME HEALTH CARE - Home Medications Comprehensive Discharge Medication List: Ambulatory Orders Bupropion HCl [Wellbutrin Xl -] 150 mg PO DAILY tab.sr.24h 12/28/18 Cholecalciferol (Vitamin D3) [Vitamin D -] 50,000 unit PO WEEKLY 01/22/19 Linagliptin [Tradjenta] 5 mg PO DAILY 01/22/19 Acetaminophen [Tylenol .Regular Strength -] 650 mg PO Q6H PRN tablet 02/10/19 Lidocaine 5% Patch [Lidoderm -] 1 patch TP DAILY #30 patch 04/30/19 Diclofenac Sodium [Diclo Gel] 1 each TP ASDIR 07/13/19 Furosemide [Lasix] 40 mg PO DAILY 07/13/19 Oxycodone HCl/Acetaminophen [Endocet 10-325 mg Tablet] 1 each PO QID PRN Acetaminophen Oral Solution [Tylenol Oral Solution -] 1,000 mg PO Q6H PRN soln.oral 10/08/19 Bupropion HCl [Wellbutrin Xl -] 300 mg PO DAILY tab.sr.24h 10/08/19 Insulin Sliding Scale [Novolog Vial Sliding Scale -] 1 vial SQ ACHS units 10/08 Lisinopril [Prinivil] 5 mg PO DAILY tablet 10/08/19 Metoprolol Tartrate [Lopressor -] 200 mg PO BID tablet 10/08/19 Verapamil HCl ER [Calan Sr -] 240 mg PO DAILY tablet.er 10/08/19 Furosemide [Lasix -] 40 mg PO DAILY tablet 10/11/19 Melatonin 10 mg PO HS tab 10/11/19 Pantoprazole Sodium [Protonix -] 40 mg PO DAILY tablet.ec 10/11/19 hydrALAZINE HCL [Apresoline -] 75 mg PO QID tablet 10/11/19 Albuterol Sulfate Inhaler - [Ventolin HFA Inhaler -] 1 inh IH QID PRN 30 Days # 2 inhaler 10/13/19 Apixaban [Eliquis -] 2.5 mg PO BID #60 tablet 10/13/19 Budesonide/Formeterol Fumarate [SYMBICORT 80/4.5mcg -] 2 puff IH BID #1 inhaler 10/13/19 Ergocalciferol [Vitamin D2] 50,000 unit PO We@1000 #4 capsule 10/13/19 Furosemide [Lasix] 40 mg PO DAILY #30 tablet 10/13/19 Gabapentin [Neurontin -] 300 mg PO TID #60 capsule 10/13/19 Lisinopril [Prinivil] 5 mg PO DAILY #30 tablet 10/13/19 Metoprolol Tartrate 200 mg PO BID #120 tablet 10/13/19 Verapamil HCl ER [Calan Sr] 240 mg PO DAILY #30 tablet.er 10/13/19 hydrALAZINE HCL [Apresoline -] 50 mg PO TID #90 tablet MDD 3 10/13/19
--- NOTE | 2019-10-13 12:23 | PN ---
Progress Note, Physician History of Present Illness: Pt seen and examined at bedside. She is awake and appears comfortable. She denies shortness of breath. - Current Medication List Current Medications: Active Medications Acetaminophen (Tylenol Oral Solution -) 1,000 mg PO Q6H PRN PRN Reason: FEVER Last Admin: 10/10/19 04:13 Dose: 1,000 mg Apixaban (Eliquis -) 2.5 mg PO BID [facility] Last Admin: 10/13/19 09:44 Dose: 2.5 mg Budesonide/Formoterol Fumarate (Symbicort 80/4.5mcg -) 2 puff IH BID [facility] Last Admin: 10/13/19 09:47 Dose: 2 puff Bupropion HCl (Wellbutrin Xl -) 300 mg PO DAILY [facility] Last Admin: 10/13/19 09:47 Dose: 300 mg Chlorhexidine Gluconate (Peridex -) 15 ml MM BID [facility] Last Admin: 10/13/19 09:44 Dose: Not Given Ergocalciferol (Drisdol -) 50,000 unit PO We@1000 [facility] Last Admin: 10/13/19 09:43 Dose: 50,000 unit Furosemide (Lasix -) 40 mg PO DAILY [facility] Last Admin: 10/13/19 09:44 Dose: 40 mg Gabapentin (Neurontin Oral Liquid -) 300 mg PO TID [facility] Last Admin: 10/13/19 06:18 Dose: Not Given Hydralazine HCl (Apresoline -) 75 mg PO QID [facility] Last Admin: 10/13/19 09:40 Dose: 75 mg Amino Acids (Clinimix -) 1,000 mls @ 35 mls/hr IV Q24H [facility] Last Admin: 10/12/19 15:34 Dose: 35 mls/hr Insulin Aspart (Novolog Vial Sliding Scale -) 1 vial SQ ACHS [facility]; Protocol Last Admin: 10/13/19 06:18 Dose: Not Given Levalbuterol HCl (Xopenex) 0.63 mg IH RTID [facility] Last Admin: 10/13/19 08:00 Dose: Not Given Lisinopril (Prinivil) 5 mg PO DAILY [facility] Last Admin: 10/13/19 09:46 Dose: 5 mg Melatonin (Melatonin) 10 mg PO HS [facility] Last Admin: 10/12/19 22:01 Dose: 10 mg Metoprolol Tartrate (Lopressor -) 200 mg PO BID [facility] Last Admin: 10/13/19 09:45 Dose: 200 mg Pantoprazole Sodium (Protonix -) 40 mg PO DAILY [facility] Last Admin: 10/13/19 09:46 Dose: 40 mg Verapamil HCl (Calan Sr -) 240 mg PO DAILY [facility] Last Admin: 10/13/19 09:43 Dose: 240 mg - Objective Vital Signs: Vital Signs Temperature 98.2 F 10/13/19 09:49 Pulse Rate 119 H 10/13/19 09:49 Respiratory Rate 22 H 10/13/19 09:49 Blood Pressure 178/94 H 10/13/19 09:49 O2 Sat by Pulse Oximetry (%) 95 10/13/19 08:42 Constitutional: Yes: Calm Eyes: Yes: Conjunctiva Clear HENT: Yes: Atraumatic Neck: Yes: Supple Cardiovascular: Yes: S1, S2 Respiratory: Yes: On Nasal O2 Gastrointestinal: Yes: Soft Genitourinary: Yes: WNL Musculoskeletal: Yes: WNL Edema: No Neurological: Yes: Oriented Labs: CBC, BMP 10/10/19 06:22 10/12/19 05:47 INR, PTT INR 1.16 (0.83-1.09) H 09/30/19 06:18 Fibrinogen 247.0 mg/dL (238-498) 09/30/19 06:18 Problem List - Problems (1) CKD (chronic kidney disease) Code(s): N18.9 - CHRONIC KIDNEY DISEASE, UNSPECIFIED Assessment/Plan Current Medications Generic Name Dose Route Start Last Admin Trade Name Freq PRN Reason Stop Dose Admin Acetaminophen 1,000 mg 10/05/19 18:21 10/10/19 04:13 Tylenol Oral Solution - PO 1,000 mg Q6H PRN Administration FEVER Apixaban 2.5 mg 10/05/19 22:00 10/13/19 09:44 Eliquis - PO 2.5 mg BID [facility] Administration Budesonide/Formoterol Fumarate 2 puff 10/05/19 22:00 10/13/19 09:47 Symbicort 80/4.5mcg - IH 2 puff BID JOLENE Administration Bupropion HCl 300 mg 10/06/19 10:00 10/13/19 09:47 Wellbutrin Xl - PO 300 mg DAILY JOLENE Administration Chlorhexidine Gluconate 15 ml 10/05/19 22:00 10/13/19 09:44 Peridex - MM Not Given BID [facility] Ergocalciferol 50,000 unit 10/06/19 10:00 10/13/19 09:43 Drisdol - PO 50,000 unit We@1000 JOLENE Administration Furosemide 40 mg 10/11/19 10:00 10/13/19 09:44 Lasix - PO 40 mg DAILY JOLENE Administration Gabapentin 300 mg 10/05/19 22:00 10/13/19 06:18 Neurontin Oral Liquid - PO Not Given TID JOLENE Hydralazine HCl 75 mg 10/07/19 17:15 10/13/19 09:40 Apresoline - PO 75 mg QID JOLENE Administration Amino Acids 1,000 mls @ 35 mls/hr 10/12/19 14:50 10/12/19 15:34 Clinimix - IV 35 mls/hr Q24H JOLENE Administration Insulin Aspart 1 vial 10/05/19 22:00 10/13/19 06:18 Novolog Vial Sliding Scale - SQ Not Given ACHS [facility] Protocol Levalbuterol HCl 0.63 mg 10/05/19 20:00 10/13/19 08:00 Xopenex IH Not Given RTID [facility] Lisinopril 5 mg 10/06/19 10:00 10/13/19 09:46 Prinivil PO 5 mg DAILY JLOENE Administration Melatonin 10 mg 10/05/19 22:00 10/12/19 22:01 Melatonin PO 10 mg HS JOLENE Administration Metoprolol Tartrate 200 mg 10/05/19 22:00 10/13/19 09:45 Lopressor - PO 200 mg BID JOLENE Administration Pantoprazole Sodium 40 mg 10/11/19 10:00 10/13/19 09:46 Protonix - PO 40 mg DAILY JOLENE Administration Verapamil HCl 240 mg 10/06/19 10:00 10/13/19 09:43 Calan Sr - PO 240 mg DAILY [facility] Administration Impression 1. CKD 2. CHF 3. a-fib 4. lower ext edema 5. COPD 6. active smoker 7. non compliance 8. acute resp failure 9. influenza 10. hypernatremia Plan - encourage po intake - can d/c clinimix for now - pt likely to be discharged today - monitor volume status in rehab - avoid nsaids
--- NOTE | 2019-10-13 13:52 | PN ---
Progress Note (short form) - Note Progress Note: PULMONARY More awake today, wants to go home. Vital Signs Period Temp Pulse Resp BP Sys/Salgado Pulse Ox Last 24 Hr 97.6 F-99.0 F 24-119 - 122-178/70-95 95-100 Gen: more alert, awake Heart: RRR Lung: distant breath sounds Abd: soft, nontender Ext: no edema CBC, BMP 10/10/19 06:22 10/12/19 05:47 Active Medications Acetaminophen (Tylenol Oral Solution -) 1,000 mg PO Q6H PRN PRN Reason: FEVER Last Admin: 10/10/19 04:13 Dose: 1,000 mg Apixaban (Eliquis -) 2.5 mg PO BID [facility] Last Admin: 10/13/19 09:44 Dose: 2.5 mg Budesonide/Formoterol Fumarate (Symbicort 80/4.5mcg -) 2 puff IH BID [facility] Last Admin: 10/13/19 09:47 Dose: 2 puff Bupropion HCl (Wellbutrin Xl -) 300 mg PO DAILY [facility] Last Admin: 10/13/19 09:47 Dose: 300 mg Chlorhexidine Gluconate (Peridex -) 15 ml MM BID [facility] Last Admin: 10/13/19 09:44 Dose: Not Given Ergocalciferol (Drisdol -) 50,000 unit PO We@1000 [facility] Last Admin: 10/13/19 09:43 Dose: 50,000 unit Furosemide (Lasix -) 40 mg PO DAILY [facility] Last Admin: 10/13/19 09:44 Dose: 40 mg Gabapentin (Neurontin Oral Liquid -) 300 mg PO TID [facility] Last Admin: 10/13/19 06:18 Dose: Not Given Hydralazine HCl (Apresoline -) 75 mg PO QID [facility] Last Admin: 10/13/19 09:40 Dose: 75 mg Insulin Aspart (Novolog Vial Sliding Scale -) 1 vial SQ ACHS [facility]; Protocol Last Admin: 10/13/19 13:32 Dose: Not Given Levalbuterol HCl (Xopenex) 0.63 mg IH RTID [facility] Last Admin: 10/13/19 08:00 Dose: Not Given Lisinopril (Prinivil) 5 mg PO DAILY [facility] Last Admin: 02/05/20 09:46 Dose: 5 mg Melatonin (Melatonin) 10 mg PO HS [facility] Last Admin: 10/12/19 22:01 Dose: 10 mg Metoprolol Tartrate (Lopressor -) 200 mg PO BID [facility] Last Admin: 10/13/19 09:45 Dose: 200 mg Pantoprazole Sodium (Protonix -) 40 mg PO DAILY [facility] Last Admin: 10/13/19 09:46 Dose: 40 mg Verapamil HCl (Calan Sr -) 240 mg PO DAILY [facility] Last Admin: 10/13/19 09:43 Dose: 240 mg A/P Acute on Chronic Hypoxic and Hypercapneic Respiratory Failure Influenza A Pneumonia Acute COPD Exacerbation Atrial Fibrillation with RVR LV Diastolic Dysfunction Thrombocytopenia HTN DM CKD Obstructive Sleep Apnea Anemia - completed antibiotics, tamiflu - off medrol - inhaled bronchodilators - O2 to keep SpO2 >90% - rate control - continue anticoagulation - DVT/GI prophylaxis - d/c planning
[2019-10-13 17:59] VITALS: BP 148/78; PULSE 68; TEMP 97.8
== END 2019-10-13 18:10 | disposition home health service (06) | DRG 130 ==
LOC: JER 16:08 → JERBED 18:48 → JICU 09-25 00:01 → J2W 10-05 13:42
PROVIDERS: ADMIT Internal Medicine; ATTEND Family Medicine
PROC: 5A1955Z Respiratory Ventilation, Greater than 96 Consecutive Hours (ICD-10-PCS; principal; 2019-09-24)
PROC: 0BH17EZ Insertion of Endotracheal Airway into Trachea, Via Natural or Artificial Opening (ICD-10-PCS; 2019-09-24)
DX: J18.9 Pneumonia, unspecified organism (principal); J96.21 Acute and chronic respiratory failure with hypoxia; J96.22 Acute and chronic respiratory failure with hypercapnia; F17.210 Nicotine dependence, cigarettes, uncomplicated; J10.1 Influenza due to other identified influenza virus with other respiratory manifestations; J44.1 Chronic obstructive pulmonary disease with (acute) exacerbation; I50.23 Acute on chronic systolic (congestive) heart failure; I48.91 Unspecified atrial fibrillation; J45.901 Unspecified asthma with (acute) exacerbation; N17.9 Acute kidney failure, unspecified; D64.9 Anemia, unspecified; D69.6 Thrombocytopenia, unspecified; I13.0 Hypertensive heart and chronic kidney disease with heart failure and stage 1 through stage 4 chronic kidney disease, or unspecified chronic kidney disease; G47.33 Obstructive sleep apnea (adult) (pediatric); R00.0 Tachycardia, unspecified; E87.0 Hyperosmolality and hypernatremia; N18.3 Chronic kidney disease, stage 3 (moderate); D72.819 Decreased white blood cell count, unspecified
CPT/HCPCS: 36415; 36600; 71045-TC-FY; 76604; 80048; 80053; 80162; 81003; 82375; 82550; 82607; 82668; 82728; 82746; 82803; 82962; 83050; 83540; 83550; 83605; 83735; 83880; 84100; 84443; 84484; 85025; 85027; 85384; 85610; 85730; 86038; 87040; 87070; 87086; 87205; 87804; 87899; 93005; 93010; 93308; 94002; 94660; 97116-GP; 97162-GP; 99285-25; G0480; J0131; J7030

== ENCOUNTER 2020-03-19 10:07 | Inpatient (IN) | payer OTHER ==
[2020-03-19 12:07] LABS: BASO % 0.5 % (0-2.0); EOS % 0.3 % (0-4.5); HEMATOCRIT 29.1 % (32.4-45.2); HEMOGLOBIN 8.9 GM/dL (10.7-15.3); LYMPH % 18.1 % (8-40); MCH 29.1 pg (25.7-33.7); MCHC 30.7 g/dl (32.0-36.0); MEAN CELL VOLUME 94.5 fl (80-96); MEAN PLT VOLUME 10.1 fl (7.5-11.1); MONO % 18.9 % (3.8-10.2); NEUT % 62.2 % (42.8-82.8); PLATELET COUNT 257 K/MM3 (134-434); RBC 3.08 M/mm3 (3.60-5.2)
--- NOTE | 2020-03-19 12:37 | PDOC ---
History of Present Illness - General Chief Complaint: Edema Stated Complaint: WEAKNESS Time Seen by Provider: 03/19/20 11:44 History Source: Patient - History of Present Illness Initial Comments: 03/19/20 12:37 59F w/hx afib (on eliquis), CHF, HTN, asthma (intubated in the past), prior PE, pulmonary fibrosis, sleep apnea, renal insufficiency, OA, DM, COPD (on 2L home oxygen) p/w worsening edema. She reports that she did not wish to come to the hospital but that her encouraged her due to the increasing swelling. She is a poor historian and unable to describe any symptoms aside from "feeling crappy". Past History - Medical History Allergies/Adverse Reactions: Allergies Allergy/AdvReac Type Severity Reaction Status Date / Time morphine Allergy Severe Verified 03/19/20 15:28 Penicillins Allergy Severe Hives Verified 03/19/20 15:28 tomato [Tomato] Allergy Unknown Verified 03/19/20 15:28 chocolate AdvReac Unknown Uncoded 03/19/20 15:28 Home Medications: Ambulatory Orders Cholecalciferol (Vitamin D3) [Vitamin D -] 50,000 unit PO WEEKLY 01/22/19 Linagliptin [Tradjenta] 5 mg PO DAILY 01/22/19 Acetaminophen [Tylenol .Regular Strength -] 650 mg PO Q6H PRN tablet 02/10/19 Lidocaine 5% Patch [Lidoderm -] 1 patch TP DAILY #30 patch 04/30/19 Diclofenac Sodium [Diclo Gel] 1 each TP ASDIR 07/13/19 Furosemide [Lasix] 40 mg PO DAILY 07/13/19 Oxycodone HCl/Acetaminophen [Endocet 10-325 mg Tablet] 1 each PO QID PRN 07/13/19 Bupropion HCl [Wellbutrin Xl -] 300 mg PO DAILY tab.sr.24h 10/08/19 Insulin Sliding Scale [Novolog Vial Sliding Scale -] 1 vial SQ ACHS units 0 10/08/19 Lisinopril [Prinivil] 5 mg PO DAILY tablet 10/08/19 Verapamil HCl ER [Calan Sr -] 240 mg PO DAILY tablet.er 10/08/19 Furosemide [Lasix -] 40 mg PO DAILY tablet 10/11/19 Melatonin 10 mg PO HS tab 10/11/19 Pantoprazole Sodium [Protonix -] 40 mg PO DAILY tablet.ec 10/11/19 hydrALAZINE HCL [Apresoline -] 75 mg PO QID tablet 10/11/19 Albuterol Sulfate Inhaler - [Ventolin HFA Inhaler -] 1 inh IH QID PRN 30 Days #2 inhaler 10/13/19 Apixaban [Eliquis -] 2.5 mg PO BID #60 tablet 10/13/19 Budesonide/Formeterol Fumarate [SYMBICORT 80/4.5mcg -] 2 puff IH BID #1 inhaler 10/13/19 Ergocalciferol [Vitamin D2] 50,000 unit PO We@1000 #4 capsule 10/13/19 Gabapentin [Neurontin -] 300 mg PO TID #60 capsule 10/13/19 Metoprolol Tartrate 200 mg PO BID #120 tablet 10/13/19 Anemia: No Asthma: Yes Cancer: No Cardiac Disorders: Yes (A-fib) CVA: No COPD: Yes CHF: Yes Dementia: No Diabetes: Yes GI Disorders: No Disorders: Yes HTN: Yes Hypercholesterolemia: Yes Liver Disease: No Seizures: No Thyroid Disease: Yes (Hypothyroid) - Surgical History Abdominal Surgery: No Appendectomy: No Cardiac Surgery: No Cholecystectomy: No Lung Surgery: No Neurologic Surgery: No Orthopedic Surgery: Yes ((L) ARM SX) - Immunization History Td Vaccination: Yes TDAP Vaccination: Yes Immunization Up to Date: Yes - Psycho-Social/Smoking History Smoking Status: Yes Smoking History: Current every day smoker Years of Tobacco Use: 30 Have you smoked in the past 12 months: Yes Number of Cigarettes Smoked Daily: 1 Cigars Per Day: 0 Information on smoking cessation initiated: Yes 'Breaking Loose' booklet given: 03/27/18 - Substance Abuse Hx (Audit-C & DAST Scrn) How often the patient has a drink containing alcohol: Never Score: In Men: 4 or > Positive; In Women: 3 or > Positive: 0 Screen Result (Pos requires Nsg. Audit-10AR): Negative In the last yr the pt used illegal drug/Rx for NonMed reason: No Score: Yes response is considered Positive: 0 Screen Result (Positive result requires Nsg. DAST-10): Negative Review of Systems - Review of Systems Able to Perform ROS?: Yes Comments:: GENERAL/CONSTITUTIONAL: No fever or chills. No weakness. HEAD, EYES, EARS, NOSE AND THROAT: No change in vision. No ear pain or discharge. No sore throat. CARDIOVASCULAR: No chest pain or shortness of breath RESPIRATORY: No cough, wheezing, or hemoptysis. GASTROINTESTINAL: No nausea, vomiting, diarrhea or constipation. GENITOURINARY: No dysuria, frequency, or change in urination. MUSCULOSKELETAL: Bilateral upper and lower extremity edema. No joint pain. No neck or back pain. SKIN: No rash NEUROLOGIC: No headache, vertigo, loss of consciousness, or change in strength/sensation. ENDOCRINE: No increased thirst. No abnormal weight change HEMATOLOGIC/LYMPHATIC: No anemia, easy bleeding, or history of blood clots. ALLERGIC/IMMUNOLOGIC: No hives or skin allergy. *Physical Exam - Vital Signs Last Vital Signs Temp Pulse Resp BP Pulse Ox 97.8 F 60 18 114/61 100 03/19/20 10:48 03/19/20 11:22 03/19/20 10:48 03/19/20 10:48 03/19/20 11:37 - Physical Exam GENERAL: Somnolent. Awake, alert, and fully oriented, in no acute distress HEAD: No signs of trauma, normocephalic, atraumatic EYES: PERRLA, EOMI, sclera anicteric, conjunctiva clear ENT: Auricles normal inspection, hearing grossly normal, nares patent, oropharynx clear without exudates. Moist mucosa NECK: Normal ROM, supple, no lymphadenopathy, JVD, or masses LUNGS: No distress, speaks full sentences, clear to auscultation bilaterally HEART: Regular rate and rhythm, normal S1 and S2, no murmurs, rubs or gallops, peripheral pulses normal and equal bilaterally. ABDOMEN: Soft, nontender, normoactive bowel sounds. No guarding, no rebound. No masses EXTREMITIES : Anasarca. Normal range of motion. No clubbing or cyanosis NEUROLOGICAL: Cranial nerves II through XII grossly intact. Normal speech, no focal sensorimotor deficits SKIN: Warm, Dry, normal turgor, no rashes or lesions noted ED Treatment Course - LABORATORY CBC & Chemistry Diagram: 03/20/20 12:45 03/20/20 12:45 - ADDITIONAL ORDERS Additional order review: Laboratory Results 03/19/20 11:40 PTT (Actin FS) 38.0 H 03/19/20 11:40 RBC 3.08 L MCV 94.5 MCHC 30.7 L RDW 21.0 H MPV 10.1 Neutrophils % 62.2 Lymphocytes % 18.1 D Monocytes % 18.9 H D Eosinophils % 0.3 D Basophils % 0.5 - RADIOLOGY Radiology Studies Ordered: Category Date Time Status CHEST X-RAY PORTABLE* [RAD] Stat Radiology 03/19/20 11:43 Completed Medical Decision Making - Medical Decision Making 59F w/extensive cardiopulmonary hx including uncontrolled CHF p/w vague symptoms, anasarca on exam concerning for CHF exacerbation. She denies shortness of breath at this time. Ddx includes ACS, renal dysfunction, electrolyte derangement. Plan: CBC CMP EKG CXR BNP Troponin I Dispo: Admit --- Cr - 3.7 (prior 2.0) BNP - >13,000 Plan for admission for CHF exacerbation. Patient endorsed to inpatient team, admitted to Telemetry floor. Discharge - Discharge Information Problems reviewed: Yes Clinical Impression/Diagnosis: CHF (congestive heart failure) Condition: Fair - Follow up/Referral - Patient Discharge Instructions - Post Discharge Activity
[2020-03-19 12:49] LABS: ALBUMIN 2.7 g/dl (3.4-5.0); ALK PHOS 122 U/L (45-117); ANION GAP 10 MMOL/L (8-16); BILIRUBIN,TOTAL 2.1 mg/dL (0.2-1); BLOOD UREA NITROGEN 47.3 mg/dL (7-18); CALCIUM 8.8 mg/dL (8.5-10.1); CHLORIDE 96 mmol/L (98-107); CO2 33 mmol/L (21-32); CREATININE 3.7 mg/dL (0.55-1.3); GLUCOSE,RANDOM 84 mg/dL (74-106); N-TERMINAL BNP 13188.2 pg/ml (5-125); POTASSIUM 5.3 mmol/L (3.5-5.1); SGOT/AST 213 U/L (15-37); SGPT/ALT 115 U/L (13-61); SODIUM 139 mmol/L (136-145); TOT PROT 7.2 g/dl (6.4-8.2)
[2020-03-19 12:59] LABS: MACROCYTOSIS 1+; TEAR DROP CELLS 1+
[2020-03-19 13:00] LABS: PLATELET ESTIMATE ADEQUATE
--- NOTE | 2020-03-19 13:13 | PDOC ---
Documentation entered by Nneka Medrano SCRIBE, acting as scribe for Vivian Pereira MD. Vivian Pereira MD: This documentation has been prepared by the [employer]Case randle Nirvannie, SCRIBE, under my direction and personally reviewed by me in its entirety. I confirm that the documentation accurately reflects all work, treatment, procedures, and medical decision making performed by me. Attending Attestation - Resident Resident Name: Flaco Pineda - ED Attending Attestation I have performed the following: I have examined & evaluated the patient, The case was reviewed & discussed with the resident, I agree w/resident's findings & plan, Exceptions are as noted - HPI HPI: 03/19/20 13:01 The patient is a 59 year old female with a significant past medical history of afib (on eliquis), CHF, HTN, asthma (intubated previously), prior PE, pulmonary fibrosis, sleep apnea, renal insufficiency, OA, DM, COPD (on 2L home oxygen) who presents to the ED with bilateral lower extremity edema and shortness of breath. Patient endorses shortness of breath both with minimal exertion and at rest with associated orthopnea. Allergies: Morphine, PCN, Tomato, Chocolate Past Medical History/PSH: afib (on eliquis), CHF, HTN, asthma (intubated previously), prior PE, pulmonary fibrosis, sleep apnea, renal insufficiency, OA, DM, COPD (on 2L home oxygen) Social history: Lives with family. No tobacco, ETOH or drug use. Meds: as documented in EMR Family history: noncontributory PMD: Dr. Doe - Physicial Exam PE: 03/19/20 13:03 Agree with the resident's HPI and PE as documented in the electronic medical record. NAD, on nasal cannula, EOMI, PERRL, nl conjunctiva, anicteric; dry mucosa, crusty lips, neck supple. lungs with scant crackles bilaterally, no respiratory distress, poor inspiratory effort. RRR, abdomen soft nontender, obese. No rebound, no guarding. +anasarca. GOSS x4, no focal neuro deficits. B/L peripheral edema, 3+ edema, up to her thighs and lower abdomen. normal color for ethnicity, WWP. venous dermatitis changes in BLE. 03/19/20 13:10 - Medical Decision Making 03/19/20 13:13 Vital Signs Temp Pulse Resp BP Pulse Ox 97.8 F 51 L 16 112/59 L 100 03/19/20 10:48 03/19/20 12:00 03/19/20 12:00 03/19/20 12:00 03/19/20 12:00 03/19/20 13:30 Vital signs reviewed normotensive within normal limits, SPO2 is 100%, no respiratory distress, no tachycardia Differential diagnosis include CHF, pulmonary edema, ACS, arrhythmia, PTX, anemia, electrolyte/metabolic derangement, infection With baseline anemia no acute changes. no bleeding. JOSEPH on CKD, transaminitis is noted and chronically elevated BNP. Negative troponin unlikely be ACS reassuring COVID 19 testing Will admit for CHF given her anasarca and fluid overloaded state extra vascularly but at the same time she does have a component of JOSEPH likely from her diuresis presenting a more complicated picture given her underlying cardiac and pulmonary history Admit to Dr. Carlin, medical management, telemetry 03/19/20 13:44 Heart Score/ECG Review #1 ECG reviewed & interpreted by me at: 12:15 General ECG Interpretation: Sinus Rhythm 03/19/20 13:14 EKG sinus bradycardia 52 bpm, left anterior fascicular block, no interval abnormalities, narrow QRS, ST and T wave segments and morphology normal. Nonspecific T wave abnormalities Discharge - Discharge Information Problems reviewed: Yes Clinical Impression/Diagnosis: CHF (congestive heart failure) Condition: Fair - Admission Yes - Follow up/Referral Referrals: Rivera Doe [Primary Care Provider] - - Patient Discharge Instructions - Post Discharge Activity
[2020-03-19] MEDS ORDERED: DOCUSATE SODIUM 100 MG CAPSULE (FP) PO PRN (13:38)
[2020-03-19] MEDS: GABAPENTIN 300 MG CAPSULE PO SCH ×2 (14:24→23:21)
[2020-03-19] MEDS ORDERED: oxyCODONE HCL 5 MG TABLET ONE (17:31)
--- NOTE | 2020-03-19 17:32 | CON.CARD ---
Consult Consult Specialty:: Cardiology Referred by:: Dr. Carlin Reason for Consultation:: CHF - History of Present Illness Chief Complaint: Shortness of breath History of Present Illness: 59 year old woman with a PMHx of HTN, DM, diastolic CHF, moderate MR, afib (on eliquis), asthma (intubated previously), prior PE, pulmonary fibrosis, sleep apnea, CKD, OA, COPD (on 2L home oxygen) presented to the ED 03/19/20 with worsening SOB and bilateral lower extremity edema. Patient has been experiencing worsening SOB and leg edema in the past several days. She has shortness of breath both with minimal exertion and at rest with associated orthopnea and leg edema. She denies chest pain, palpitation, syncope or near syncope. But she has been lethargic while in ED and during interview. JOSEPH and hyperkalemia noted. BNP is severely elevated. Liver enzymes are up. CXR 03/19/20 showed mild bilateral pulmonary congestion. 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: Other (Sciatica) Cardio/Vascular: Yes: AFIB, CHF, HTN Pulmonary: Yes: Asthma ((prior intubations)), COPD, O2 Dependent, Pulmonary Embolus (in the past), Pulmonary Fibrosis (history) Renal/: Yes: Renal Inusuff (CKD) Musculoskeletal: Yes: Osteoarthritis Endocrine: Yes: Diabetes Mellitus, Hypothyroidism - Past Surgical History Past Surgical History: Yes: - Alcohol/Substance Use Hx Alcohol Use: No History of Substance Use: reports: None - Smoking History Smoking history: Current every day smoker Have you smoked in the past 12 months: Yes Aproximately how many cigarettes per day: 1 - Social History Usual Living Arrangement: Alone (lives with in apartment without stairs) ADL: Independent (with Rollator) History of Recent Travel: No Home Medications - Allergies Allergies/Adverse Reactions: Allergies Allergy/AdvReac Type Severity Reaction Status Date / Time morphine Allergy Severe Verified 03/19/20 15:28 Penicillins Allergy Severe Hives Verified 03/19/20 15:28 tomato [Tomato] Allergy Unknown Verified 03/19/20 15:28 chocolate AdvReac Unknown Uncoded 03/19/20 15:28 - Home Medications Home Medications: Ambulatory Orders Cholecalciferol (Vitamin D3) [Vitamin D -] 50,000 unit PO WEEKLY 01/22/19 Linagliptin [Tradjenta] 5 mg PO DAILY 01/22/19 Acetaminophen [Tylenol .Regular Strength -] 650 mg PO Q6H PRN tablet 02/10/19 Lidocaine 5% Patch [Lidoderm -] 1 patch TP DAILY #30 patch 04/30/19 Diclofenac Sodium [Diclo Gel] 1 each TP ASDIR 07/13/19 Furosemide [Lasix] 40 mg PO DAILY 07/13/19 Oxycodone HCl/Acetaminophen [Endocet 10-325 mg Tablet] 1 each PO QID PRN 07/13/19 Bupropion HCl [Wellbutrin Xl -] 300 mg PO DAILY tab.sr.24h 10/08/19 Insulin Sliding Scale [Novolog Vial Sliding Scale -] 1 vial SQ ACHS units 10/08/19 Lisinopril [Prinivil] 5 mg PO DAILY tablet 10/08/19 Verapamil HCl ER [Calan Sr -] 240 mg PO DAILY tablet.er 10/08/19 Furosemide [Lasix -] 40 mg PO DAILY tablet 10/11/19 Melatonin 10 mg PO HS tab 10/11/19 Pantoprazole Sodium [Protonix -] 40 mg PO DAILY tablet.ec 10/11/19 hydrALAZINE HCL [Apresoline -] 75 mg PO QID tablet 10/11/19 Albuterol Sulfate Inhaler - [Ventolin HFA Inhaler -] 1 inh IH QID PRN 30 Days #2 inhaler 10/13/19 Apixaban [Eliquis -] 2.5 mg PO BID #60 tablet 10/13/19 Budesonide/Formeterol Fumarate [SYMBICORT 80/4.5mcg -] 2 puff IH BID #1 inhaler 10/13/19 Ergocalciferol [Vitamin D2] 50,000 unit PO We@1000 #4 capsule 10/13/19 Gabapentin [Neurontin -] 300 mg PO TID #60 capsule 10/13/19 Metoprolol Tartrate 200 mg PO BID #120 tablet 10/13/19 Review of Systems - Review of Systems Constitutional: reports: Malaise, Weakness Eyes: reports: No Symptoms HENT: reports: No Symptoms Neck: reports: No Symptoms Cardiovascular: reports: Shortness of Breath Respiratory: reports: SOB, SOB on Exertion Gastrointestinal: reports: No Symptoms Genitourinary: reports: No Symptoms Breasts: reports: No Symptoms Reported Musculoskeletal: reports: Joint Swelling Integumentary: reports: No Symptoms Vital Signs: Vital Signs Temperature 97.8 F 03/19/20 10:48 Pulse Rate 46 L 03/19/20 15:27 Respiratory Rate 12 03/19/20 15:27 Blood Pressure 106/57 L 03/19/20 15:27 O2 Sat by Pulse Oximetry (%) 99 03/19/20 15:27 General: Well developed. Chronic ill. Lethargic. Head: Normocephalic. Atraumatic, Eyes: PERRLA, EOMI. Sclerae anicteric. Conjunctivae clear. Neck: Supple.(+) JVD. No bruits. Heart: Normal S1, S2: Irregular rhythm and bradycardia. Lungs: Symmetrical poor air entry. Bibasilar crackle. No wheezing or rhonchi. Abdomen: Soft. Bowel sound positive. Non tender. No masses. Extremities: 2+ edema. No clubbing or cyanosis. PD 2+, equal bilaterally. - Other Data Labs, Other Data: CBC, BMP 03/19/20 11:40 03/19/20 11:40 Troponin, BNP 03/19/20 11:40 Troponin I < 0.02 B-Natriuretic Peptide 50127.2 H Troponin, BNP 03/19/20 11:40 Troponin I < 0.02 B-Natriuretic Peptide 28303.2 H Assessment/Plan 59 year old woman with a PMHx of HTN, DM, diastolic CHF, moderate MR, afib (on eliquis), asthma (intubated previously), prior PE, pulmonary fibrosis, sleep apnea, CKD, OA, COPD (on 2L home oxygen) presented to the ED 03/19/20 with worsening SOB and bilateral lower extremity edema. Patient has been experiencing worsening SOB and leg edema in the past several days. She has shortness of breath both with minimal exertion and at rest with associated orthopnea and leg edema. She denies chest pain, palpitation, syncope or near syncope. But she has been lethargic while in ED and during interview. JOSEPH and hyperkalemia noted. BNP is severely elevated. Liver enzymes are up. CXR 03/19/20 showed mild bilateral pulmonary congestion. 1) Acute on chronic CHF, exacerbated by JOSEPH. Start IV Lasix 40 mg q12 hours to keep Is > Os, may need higher dose of Lasix, increase dose if urine output is still low. Monitor renal function and eletrolytes. Renal consult, may need short term HD. Hold Lisinopril. Repeat echo 2) Atrial fibrillation: likely in slow afib. Admit to tele. Hold AV lyudmila blocking agent. Continue AC. We will follow the patient with you.
[2020-03-19] MEDS: oxyCODONE HCL 5 MG TABLET PO PRN (17:34)
[2020-03-19] MEDS ORDERED: METOPROLOL TARTRATE 50 MG TABLET (FP) PO SCH (22:00)
[2020-03-19] MEDS: METOPROLOL TARTRATE 50 MG TABLET (FP) PO SCH (22:23)
[2020-03-19] MEDS ORDERED: APIXABAN 2.5 MG TABLET ONE (23:18)
[2020-03-19] MEDS ORDERED: GABAPENTIN 100 MG CAPSULE ONE (23:19)
[2020-03-19] MEDS ORDERED: hydrALAZINE HCL 25 MG TABLET (FP) ONE (23:19)
[2020-03-19] MEDS: APIXABAN 2.5 MG TABLET PO SCH (23:21)
[2020-03-19] MEDS: hydrALAZINE HCL 25 MG TABLET (FP) PO SCH (23:21)
[2020-03-20] MEDS ORDERED: oxyCODONE HCL 5 MG TABLET ONE ×2 (02:54→12:17)
[2020-03-20] MEDS: oxyCODONE HCL 5 MG TABLET PO PRN (02:55)
[2020-03-20] MEDS: GABAPENTIN 300 MG CAPSULE PO SCH ×3 (05:47→21:51)
[2020-03-20] MEDS ORDERED: APIXABAN 2.5 MG TABLET ONE ×2 (09:32→21:47)
[2020-03-20] MEDS ORDERED: METOPROLOL TARTRATE 50 MG TABLET (FP) ONE ×2 (09:33→21:47)
[2020-03-20] MEDS ORDERED: LISINOPRIL 5 MG TABLET (FP) ONE (09:33)
[2020-03-20] MEDS ORDERED: hydrALAZINE HCL 25 MG TABLET (FP) ONE ×2 (09:33→21:46)
--- NOTE | 2020-03-20 09:40 | EKG ---
Test Reason : Blood Pressure : / mmHG Vent. Rate : 052 BPM Atrial Rate : 052 BPM P-R Int : 192 ms QRS Dur : 104 ms QT Int : 522 ms P-R-T Axes : 000 -53 047 degrees QTc Int : 485 ms SINUS BRADYCARDIA LEFT ANTERIOR FASCICULAR BLOCK ABNORMAL ECG WHEN COMPARED WITH ECG OF 17-JAN-2020 10:24, PREMATURE ATRIAL COMPLEXES ARE NO LONGER PRESENT VENT. RATE HAS DECREASED BY 42 BPM NONSPECIFIC T WAVE ABNORMALITY HAS REPLACED INVERTED T WAVES IN LATERAL LEADS Confirmed by Courtney Frye ([id number]) on 03/20/2020 9:40:15 AM Referred By: Confirmed By:Courtney Frye
[2020-03-20] MEDS: VERAPAMIL HCL 240 MG E.R. TABLET PO SCH (09:45)
[2020-03-20] MEDS: APIXABAN 2.5 MG TABLET PO SCH ×2 (09:45→21:50)
[2020-03-20] MEDS: hydrALAZINE HCL 25 MG TABLET (FP) PO SCH ×2 (09:45→21:50)
[2020-03-20] MEDS: METOPROLOL TARTRATE 50 MG TABLET (FP) PO SCH ×2 (09:46→21:51)
[2020-03-20] MEDS ORDERED: VERAPAMIL HCL 240 MG E.R. TABLET PO SCH (10:00)
[2020-03-20] MEDS ORDERED: LISINOPRIL 5 MG TABLET (FP) PO SCH (10:00)
[2020-03-20] MEDS ORDERED: FUROSEMIDE 40 MG/4 ML INJECTABLE VIAL ONE (10:06)
[2020-03-20] MEDS: FUROSEMIDE 40 MG/4 ML INJECTABLE VIAL IVPUSH SCH (10:22)
--- NOTE | 2020-03-20 10:46 | PN ---
Progress Note, Physician Chief Complaint: Shortness of breath History of Present Illness: 59 year old woman with a PMHx of HTN, DM, diastolic CHF, moderate MR, afib (on eliquis), asthma (intubated previously), prior PE, pulmonary fibrosis, sleep apnea, CKD, OA, COPD (on 2L home oxygen) presented to the ED 03/19/20 with worsening SOB and bilateral lower extremity edema. Patient has been experiencing worsening SOB and leg edema in the past several days. She has shortness of breath both with minimal exertion and at rest with associated orthopnea and leg edema. She denies chest pain, palpitation, syncope or near syncope. But she has been lethargic while in ED and during interview. JOSEPH and hyperkalemia noted. BNP is severely elevated. Liver enzymes are up. CXR 03/19/20 showed mild bilateral pulmonary congestion. - Current Medication List Current Medications: Active Medications Apixaban (Eliquis -) 2.5 mg PO BID [facility] Last Admin: 03/20/20 09:45 Dose: 2.5 mg Documented by: Bupropion HCl (Wellbutrin Xl -) 300 mg PO DAILY [facility] Last Admin: 03/20/20 09:46 Dose: 300 mg Documented by: Docusate Sodium (Colace -) 100 mg PO BID PRN PRN Reason: CONSTIPATION Furosemide (Lasix Injection -) 40 mg IVPUSH DAILY [facility] Last Admin: 03/20/20 10:22 Dose: 40 mg Documented by: Gabapentin (Neurontin -) 300 mg PO TID [facility] Last Admin: 03/20/20 05:47 Dose: 300 mg Documented by: Hydralazine HCl (Apresoline -) 50 mg PO BID [facility] Last Admin: 03/20/20 09:45 Dose: 50 mg Documented by: Lisinopril (Prinivil) 5 mg PO DAILY [facility] Last Admin: 03/20/20 09:46 Dose: 5 mg Documented by: Metoprolol Tartrate (Lopressor -) 50 mg PO BID [facility] Last Admin: 03/20/20 09:46 Dose: 50 mg Documented by: Oxycodone HCl (Roxicodone -) 5 mg PO Q6H PRN PRN Reason: PAIN LEVEL 7 - 10 Last Admin: 03/20/20 02:55 Dose: 5 mg Documented by: Verapamil HCl (Calan Sr -) 240 mg PO DAILY [facility] Last Admin: 03/20/20 09:45 Dose: 240 mg Documented by: - Objective Vital Signs: Vital Signs Temperature 98.7 F 03/20/20 10:10 Pulse Rate 70 03/20/20 10:10 Respiratory Rate 18 03/20/20 10:10 Blood Pressure 110/61 03/20/20 10:10 O2 Sat by Pulse Oximetry (%) 94 L 03/20/20 10:10 Constitutional: Yes: No Distress, Calm Eyes: Yes: WNL, Conjunctiva Clear, EOM Intact HENT: Yes: WNL, Atraumatic, Normocephalic Neck: Yes: WNL, Supple, Trachea Midline Cardiovascular: Yes: Regular Rate and Rhythm, Bradycardia, Murmur, S1, S2 Respiratory: Yes: Rales, Other (Bilateral rales at bases, no wheezes, poor inspiratory effort.) Gastrointestinal: Yes: Normal Bowel Sounds, Soft ...Rectal Exam: Yes: Deferred Musculoskeletal: Yes: Muscle Weakness Extremities: Yes: WNL Edema: No Peripheral Pulses: Left Radial: 1+, Right Radial: 1+, Left Doralis Pedis: 1+, Right Dorsalis Pedis: 1+, Left Femoral: 1+, Right Femoral: 1+ Neurological: Yes: Weakness Psychiatric: Yes: Alert Labs: CBC, BMP 03/19/20 11:40 03/19/20 11:40 Assessment/Plan 59 year old woman with a PMHx of HTN, DM, diastolic CHF, moderate MR, afib (on eliquis), asthma (intubated previously), prior PE, pulmonary fibrosis, sleep apnea, CKD, OA, COPD (on 2L home oxygen) presented to the ED 03/19/20 with worsening SOB and bilateral lower extremity edema. Patient has been experiencing worsening SOB and leg edema in the past several days. She has shortness of breath both with minimal exertion and at rest with associated orthopnea and leg edema. She denies chest pain, palpitation, syncope or near syncope. But she has been lethargic while in ED and during interview. JOSEPH and hyperkalemia noted. BNP is severely elevated. Liver enzymes are up. CXR 03/19/20 showed mild bilateral pulmonary congestiThe patient remains lethargic and weak this morning. She is in mild respiratory distress on nasal cannula. The patient is in sinus bradycardia. Hemodynamically stable.. Acute on chronic diastolic heart failure and acute on chronic renal failure. Moderate mitral valve regurgitation. Continue intravenous Lasix twice daily. Would give 60 mg twice daily. Renal consult. Continue the other medications as currently. Echo is pending. Hemodynamically stable. Monitored setting.
--- NOTE | 2020-03-20 11:15 | HP ---
Admitting History and Physical - Primary Care Physician PCP: Maite Carlin - Admission Chief Complaint: SOB. CHF excaerbation History of Present Illness: The patient is a 59 year old female with a significant past medical history of afib (on eliquis), CHF, HTN, asthma (intubated previously), prior PE, pulmonary fibrosis, sleep apnea, renal insufficiency, OA, DM, COPD (on 2L home oxygen) who presents to the ED with bilateral lower extremity edema and shortness of breath. Patient endorses shortness of breath both with minimal exertion and at rest with associated orthopnea. 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) Cardiovascular: Yes: AFIB, CHF, HTN Pulmonary: Yes: Asthma ((prior intubations)), COPD, O2 Dependent, Pulmonary E mbolus (in the past), Pulmonary Fibrosis (history) Renal/: Yes: Renal Inusuff (CKD) Heme/Onc: Yes: Anemia Musculoskeletal: Yes: Osteoarthritis Endocrine: Yes: Diabetes Mellitus, Hypothyroidism - Past Surgical History Past Surgical History: Yes: - Smoking History Smoking history: Current every day smoker Have you smoked in the past 12 months: Yes Aproximately how many cigarettes per day: 1 - Alcohol/Substance Use Hx Alcohol Use: No History of Substance Use: reports: None - Social History ADL: Independent (with Rollator) History of Recent Travel: No Home Medications - Allergies Allergies/Adverse Reactions: Allergies Allergy/AdvReac Type Severity Reaction Status Date / Time morphine Allergy Severe Verified 03/19/20 15:28 Penicillins Allergy Severe Hives Verified 03/19/20 15:28 tomato [Tomato] Allergy Unknown Verified 03/19/20 15:28 chocolate AdvReac Unknown Uncoded 03/19/20 15:28 - Home Medications Home Medications: Ambulatory Orders Cholecalciferol (Vitamin D3) [Vitamin D -] 50,000 unit PO WEEKLY 01/22/19 Linagliptin [Tradjenta] 5 mg PO DAILY 01/22/19 Acetaminophen [Tylenol .Regular Strength -] 650 mg PO Q6H PRN tablet 02/10/19 Lidocaine 5% Patch [Lidoderm -] 1 patch TP DAILY #30 patch 04/30/19 Diclofenac Sodium [Diclo Gel] 1 each TP ASDIR 07/13/19 Furosemide [Lasix] 40 mg PO DAILY 07/13/19 Oxycodone HCl/Acetaminophen [Endocet 10-325 mg Tablet] 1 each PO QID PRN 07/13/19 Bupropion HCl [Wellbutrin Xl -] 300 mg PO DAILY tab.sr.24h 10/08/19 Insulin Sliding Scale [Novolog Vial Sliding Scale -] 1 vial SQ ACHS units 10/08/19 Lisinopril [Prinivil] 5 mg PO DAILY tablet 10/08/19 Verapamil HCl ER [Calan Sr -] 240 mg PO DAILY tablet.er 10/08/19 Furosemide [Lasix -] 40 mg PO DAILY tablet 10/11/19 Melatonin 10 mg PO HS tab 10/11/19 Pantoprazole Sodium [Protonix -] 40 mg PO DAILY tablet.ec 10/11/19 hydrALAZINE HCL [Apresoline -] 75 mg PO QID tablet 10/11/19 Albuterol Sulfate Inhaler - [Ventolin HFA Inhaler -] 1 inh IH QID PRN 30 Days #2 inhaler 10/13/19 Apixaban [Eliquis -] 2.5 mg PO BID #60 tablet 10/13/19 Budesonide/Formeterol Fumarate [SYMBICORT 80/4.5mcg -] 2 puff IH BID #1 inhaler 10/13/19 Ergocalciferol [Vitamin D2] 50,000 unit PO We@1000 #4 capsule 10/13/19 Gabapentin [Neurontin -] 300 mg PO TID #60 capsule 10/13/19 Metoprolol Tartrate 200 mg PO BID #120 tablet 10/13/19 Review of Systems - Review of Systems Constitutional: reports: Malaise Eyes: reports: No Symptoms HENT: reports: No Symptoms Neck: reports: No Symptoms Cardiovascular: reports: Edema, Shortness of Breath Respiratory: reports: Orthopnea, SOB, SOB on Exertion Gastrointestinal: reports: No Symptoms Genitourinary: reports: No Symptoms Breasts: reports: No Symptoms Reported Musculoskeletal: reports: No Symptoms Integumentary: reports: No Symptoms Neurological: reports: No Symptoms Endocrine: reports: No Symptoms Hematology/Lymphatic: reports: No Symptoms Psychiatric: reports: No Symptoms Physical Examination Vital Signs: Vital Signs Temperature 98.7 F 03/20/20 10:10 Pulse Rate 70 03/20/20 10:10 Respiratory Rate 18 03/20/20 10:10 Blood Pressure 110/61 03/20/20 10:10 O2 Sat by Pulse Oximetry (%) 94 L 03/20/20 10:10 Findings/Remarks: C/O BLLE PAIN, WHICH IS CHRONIC IN NATURE, TAKES OXYCODONE AT HOME Constitutional: Yes: Well Nourished, No Distress, Calm Cardiovascular: Yes: Regular Rate and Rhythm, Murmur (grade V/) Respiratory: Yes: Regular, Rales (BLL diffuse) Gastrointestinal: Yes: Normal Bowel Sounds, Soft Renal/: Yes: WNL Musculoskeletal: Yes: Muscle Weakness Extremities: Yes: WNL Edema: Yes Edema: LLE: Trace, RLE: Trace Peripheral Pulses WNL: Yes Neurological: Yes: Alert, Oriented Psychiatric: Yes: Alert, Oriented Labs: CBC, BMP 03/19/20 11:40 03/19/20 11:40 Problem List - Problems (1) Elevated LFTs Assessment/Plan: -Likeley 2/2 to congestive hepatopathy -Will get GI input -Repeat labs today -Monitor trend Problems reviewed: Yes Code(s): R79.89 - OTHER SPECIFIED ABNORMAL FINDINGS OF BLOOD CHEMISTRY (2) JOSEPH (acute kidney injury) Assessment/Plan: -Nephrology consult -Hold FABIAN -monitor trend Problems reviewed: Yes Code(s): N17.9 - ACUTE KIDNEY FAILURE, UNSPECIFIED (3) CHF exacerbation Assessment/Plan: -Cardiology consult -IV furosemide 40 mg daily -Low sodium diet -daily weights -Nasal O2 to keep SpO2>90% Problems reviewed: Yes Code(s): I50.9 - HEART FAILURE, UNSPECIFIED Qualifiers: Heart failure type: unspecified Qualified Code(s): I50.9 - Heart failure, unspecified (4) Anemia Assessment/Plan: -Check Iron, thyroid, B12, and stool Ob -Transfuse only if Hg<7.0 to avoid fluid overload -Could be dilutional vs CKD vs CD Problems reviewed: Yes Code(s): D64.9 - ANEMIA, UNSPECIFIED (5) Diabetes Assessment/Plan: -Last a1c at 5.8 -Recheck A1c -BGM AC HS -Diabetic low sodium diet Problems reviewed: Yes Code(s): E11.9 - TYPE 2 DIABETES MELLITUS WITHOUT COMPLICATIONS (6) Afib Assessment/Plan: -Chronic,rate controlled -Continue Eliquis Problems reviewed: Yes Code(s): I48.91 - UNSPECIFIED ATRIAL FIBRILLATION Qualifiers: Atrial fibrillation type: unspecified Qualified Code(s): I48.91 - Unspecified atrial fibrillation Assessment/Plan See problem list Spoke to irais Chaudhary for pt update.
[2020-03-20] MEDS: POLYETHYLENE GLYCOL 3350 119 GM BTL PO SCH (12:53)
[2020-03-20 13:16] LABS: BASO % 1.1 % (0-2.0); EOS % 0.4 % (0-4.5); HEMATOCRIT 29.5 % (32.4-45.2); LYMPH % 12.3 % (8-40); MCHC 30.5 g/dl (32.0-36.0); MEAN CELL VOLUME 94.9 fl (80-96); MEAN PLT VOLUME 9.2 fl (7.5-11.1); MONO % 17.1 % (3.8-10.2); NEUT % 69.1 % (42.8-82.8); PLATELET COUNT 270 K/MM3 (134-434); RBC 3.11 M/mm3 (3.60-5.2); RDW 21.5 % (11.6-15.6); WHITE BLOOD COUNT 6.4 K/mm3 (4.0-10.0)
[2020-03-20 13:45] LABS: ALBUMIN 2.5 g/dl (3.4-5.0); BILIRUBIN,TOTAL 1.8 mg/dL (0.2-1); BLOOD UREA NITROGEN 56.7 mg/dL (7-18); CREATININE 4.1 mg/dL (0.55-1.3); POTASSIUM 4.9 mmol/L (3.5-5.1); TOT PROT 6.7 g/dl (6.4-8.2)
--- NOTE | 2020-03-20 13:46 | CONSULT ---
Consult Consult Specialty:: Nephrology Reason for Consultation:: JOSEPH - History of Present Illness Chief Complaint: shortness of breath and edema History of Present Illness: Pt is a 59 year old female with pmhx of a-fib, chf, htn, asthma, PE, pulmonary fibrosis, sleep apnea, ckd, dm and copd who presents to the ER with increased lower ext edema. SHe also complains of shortness of breath. She says she is unable to ambulate without shortness of breath. She is unable to lay flat at night. She denies chest pain. She denies dysuria or hematuria. SHe denies nsaid use. She is not compliant with diet. 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 (Sciatica) Cardio/Vascular: Yes: AFIB, CHF, HTN Pulmonary: Yes: Asthma ((prior intubations)), COPD, O2 Dependent, Pulmonary Embolus (in the past), Pulmonary Fibrosis (history) Renal/: Yes: Renal Inusuff (CKD) Musculoskeletal: Yes: Osteoarthritis Endocrine: Yes: Diabetes Mellitus, Hypothyroidism - Past Surgical History Past Surgical History: Yes: - Alcohol/Substance Use Hx Alcohol Use: No History of Substance Use: reports: None - Smoking History Smoking history: Current every day smoker Have you smoked in the past 12 months: Yes Aproximately how many cigarettes per day: 1 - Social History Usual Living Arrangement: Alone (lives with in apartment without stairs) ADL: Independent (with Rollator) History of Recent Travel: No Home Medications - Allergies Allergies/Adverse Reactions: Allergies Allergy/AdvReac Type Severity Reaction Status Date / Time morphine Allergy Severe Verified 03/19/20 15:28 Penicillins Allergy Severe Hives Verified 03/19/20 15:28 tomato [Tomato] Allergy Unknown Verified 03/19/20 15:28 chocolate AdvReac Unknown Uncoded 03/19/20 15:28 - Home Medications Home Medications: Ambulatory Orders Cholecalciferol (Vitamin D3) [Vitamin D -] 50,000 unit PO WEEKLY 01/22/19 Linagliptin [Tradjenta] 5 mg PO DAILY 01/22/19 Acetaminophen [Tylenol .Regular Strength -] 650 mg PO Q6H PRN tablet 02/10/19 Lidocaine 5% Patch [Lidoderm -] 1 patch TP DAILY #30 patch 04/30/19 Diclofenac Sodium [Diclo Gel] 1 each TP ASDIR 07/13/19 Furosemide [Lasix] 40 mg PO DAILY 07/13/19 Oxycodone HCl/Acetaminophen [Endocet 10-325 mg Tablet] 1 each PO QID PRN 07/13/19 Bupropion HCl [Wellbutrin Xl -] 300 mg PO DAILY tab.sr.24h 10/08/19 Insulin Sliding Scale [Novolog Vial Sliding Scale -] 1 vial SQ ACHS units 10/08/19 Lisinopril [Prinivil] 5 mg PO DAILY tablet 10/08/19 Verapamil HCl ER [Calan Sr -] 240 mg PO DAILY tablet.er 10/08/19 Furosemide [Lasix -] 40 mg PO DAILY tablet 10/11/19 Melatonin 10 mg PO HS tab 10/11/19 Pantoprazole Sodium [Protonix -] 40 mg PO DAILY tablet.ec 10/11/19 hydrALAZINE HCL [Apresoline -] 75 mg PO QID tablet 10/11/19 Albuterol Sulfate Inhaler - [Ventolin HFA Inhaler -] 1 inh IH QID PRN 30 Days #2 inhaler 10/13/19 Apixaban [Eliquis -] 2.5 mg PO BID #60 tablet 10/13/19 Budesonide/Formeterol Fumarate [SYMBICORT 80/4.5mcg -] 2 puff IH BID #1 inhaler 10/13/19 Ergocalciferol [Vitamin D2] 50,000 unit PO We@1000 #4 capsule 10/13/19 Gabapentin [Neurontin -] 300 mg PO TID #60 capsule 10/13/19 Metoprolol Tartrate 200 mg PO BID #120 tablet 10/13/19 Family Medical History Family History: Denies Review of Systems - Review of Systems Constitutional: reports: Malaise Eyes: reports: No Symptoms HENT: reports: No Symptoms Neck: reports: No Symptoms Cardiovascular: reports: Edema, Shortness of Breath Respiratory: reports: SOB Gastrointestinal: reports: No Symptoms Genitourinary: reports: No Symptoms Musculoskeletal: reports: No Symptoms Integumentary: reports: No Symptoms Neurological: reports: No Symptoms Endocrine: reports: No Symptoms Hematology/Lymphatic: reports: No Symptoms Psychiatric: reports: No Symptoms Physical Exam Vital Signs: Vital Signs Temperature 98.7 F 03/20/20 10:10 Pulse Rate 70 03/20/20 10:10 Respiratory Rate 18 03/20/20 10:10 Blood Pressure 110/61 03/20/20 10:10 O2 Sat by Pulse Oximetry (%) 94 L 03/20/20 10:10 Constitutional: Yes: Calm Eyes: Yes: Conjunctiva Clear HENT: Yes: Atraumatic Neck: Yes: Supple Cardiovascular: Yes: S1, S2 Respiratory: Yes: On Nasal O2, Rhonchi Gastrointestinal: Yes: Normal Bowel Sounds, Soft Renal/: Yes: WNL Musculoskeletal: Yes: WNL Edema: Yes Edema: LLE: 2+, RLE: 2+ Neurological: Yes: Oriented Psychiatric: Yes: Oriented Labs: CBC, BMP 03/20/20 12:45 03/20/20 12:45 Imaging - Results Chest X-ray: Report Reviewed Problem List - Problems (1) Anemia Code(s): D64.9 - ANEMIA, UNSPECIFIED (2) CHF (congestive heart failure) Code(s): I50.9 - HEART FAILURE, UNSPECIFIED Qualifiers: (3) JOSEPH (acute kidney injury) Code(s): N17.9 - ACUTE KIDNEY FAILURE, UNSPECIFIED (4) Afib Code(s): I48.91 - UNSPECIFIED ATRIAL FIBRILLATION Qualifiers: Atrial fibrillation type: unspecified Qualified Code(s): I48.91 - Unspecified atrial fibrillation (5) CHF (congestive heart failure) Code(s): I50.9 - HEART FAILURE, UNSPECIFIED Qualifiers: Heart failure type: diastolic Heart failure chronicity: unspecified Qualified Code(s): I50.30 - Unspecified diastolic (congestive) heart failure (6) CKD (chronic kidney disease) Code(s): N18.9 - CHRONIC KIDNEY DISEASE, UNSPECIFIED Assessment/Plan Current Medications Generic Name Dose Route Start Last Admin Trade Name Freq PRN Reason Stop Dose Admin Apixaban 2.5 mg 03/19/20 22:00 03/20/20 09:45 Eliquis - PO 2.5 mg BID JOLENE Administration Bupropion HCl 300 mg 03/20/20 10:00 03/20/20 09:46 Wellbutrin Xl - PO 300 mg DAILY JOLENE Administration Docusate Sodium 100 mg 03/19/20 13:38 Colace - PO BID PRN CONSTIPATION Furosemide 40 mg 03/20/20 10:00 03/20/20 10:22 Lasix Injection - IVPUSH 40 mg DAILY JOLENE Administration Gabapentin 300 mg 03/19/20 14:00 03/20/20 13:32 Neurontin - PO 300 mg TID JOLENE Administration Hydralazine HCl 50 mg 03/19/20 22:00 03/20/20 09:45 Apresoline - PO 50 mg BID JOLENE Administration Metoprolol Tartrate 50 mg 03/19/20 22:00 03/20/20 09:46 Lopressor - PO 50 mg BID JOLENE Administration Oxycodone HCl 5 mg 03/19/20 13:38 03/20/20 02:55 Roxicodone - PO 5 mg Q6H PRN Administration PAIN LEVEL 7 - 10 Polyethylene Glycol 17 gm 03/20/20 12:45 03/20/20 12:53 Miralax (For Daily Use) - PO 17 gm DAILY JOLENE Administration Senna 2 tab 03/20/20 22:00 Senna - PO HS JOLENE Verapamil HCl 240 mg 03/20/20 10:00 03/20/20 09:45 Calan Sr - PO 240 mg DAILY JOLENE Administration Impression 1. CKD 2. CHF 3. a-fib 4. lower ext edema 5. COPD 6. active smoker 7. non compliance 8. dyspnea Plan - start lasix - check renal ultrasound - place montes - cont to monitor renal function - check ua and lytes - cardio eval - check echo
--- NOTE | 2020-03-20 18:07 | PN ---
Progress Note (short form) - Note Progress Note: GI consult dictated
[2020-03-20 18:27] LABS: URINE APPEARANCE CLEAR; URINE BILIRUBIN 1+ (NEGATIVE); URINE COLOR DK YELLOW; URINE GLUCOSE (UA) NEGATIVE (NEGATIVE); URINE KETONE NEGATIVE (NEGATIVE); URINE LEUK ESTERASE NEGATIVE (NEGATIVE); URINE NITRITE NEGATIVE (NEGATIVE); URINE PROTEIN NEGATIVE (NEGATIVE)
--- NOTE | 2020-03-20 19:05 | CONS ---
DATE OF CONSULTATION: DATE OF DICTATION: 03/20/2020 GASTROINTESTINAL CONSULTATION HISTORY OF PRESENT ILLNESS: The patient is a 59-year-old female, past medical history of atrial fibrillation on Eliquis, CHF, hypertension, asthma, prior PE, pulmonary fibrosis, sleep apnea, renal insufficiency, diabetes, COPD on home oxygen who is admitted to the hospital with shortness of breath and lower extremity edema. This consultation is for abnormal liver tests. Patient denies a history of liver disease in the past. No new medications, herbal supplements or antibiotics. She does not have a history of jaundice. She also denies abdominal pain, nausea, vomiting, hematemesis, melena, hematochezia. She was recently seen by our service in 2019 for similar reasons, abnormal liver test. Apparently her screening hepatitis serology is from 2016 and were negative at that time. There was no report of any endoscopy or colonoscopy in our system. Apparently she was supposed to have it done as an outpatient as per the record. PAST MEDICAL AND SURGICAL HISTORY: As listed in the HPI. ALLERGIES: MORPHINE, PENICILLIN, TOMATO, and CHOCOLATE. HOME MEDICATIONS: Reviewed, include: 1. Vitamin D. 2. Tradjenta. 3. Tylenol. 4. Lidoderm. 5. Lasix. 6. Acetaminophen. 7. Wellbutrin. 8. Lisinopril. 9. Verapamil. 10. Melatonin. 11. Protonix. 12. Hydralazine. 13. Eliquis. 14. Symbicort. 15. Neurontin. SOCIAL HISTORY: Does smoke 1 cigarette per day. No alcohol abuse. No drug abuse. FAMILY HISTORY: Noncontributory. REVIEW OF SYSTEMS: As per the HPI. PHYSICAL EXAMINATION: Vital Signs: Temperature 97, pulse 58, blood pressure 109/59, oxygen saturation 100% on room air. Respiratory rate 18. General: In no acute distress. HEENT: Anicteric sclerae. Cardiovascular: S1, S2, regular rate and rhythm. Lungs: Bilaterally coarse anteriorly with some faint rales at the bases. Abdomen: Nontender, normal bowel sounds. Extremities: With edema. LABORATORY: White blood cell count 6.4, hemoglobin and hematocrit 9/29, MCV 94, platelet count 270. Sodium 138, potassium 4.9, BUN/creatinine 56/4, glucose 84, iron 17, AST 118, ALT 95, total bilirubin 1.8, vitamin B12 of 1395. COVID is negative. She had an abdomen and pelvic CT scan since 2019. Since then, she has not had abdominal imaging. Cholelithiasis was noted on this exam. IMPRESSION: Transaminitis mixed pattern with an abnormal bilirubin as well as AST and ALT. Will need to exclude chronic and inherited liver disease. Her current transaminitis may be suggestive of underlying congestive hepatopathy. Unlikely choledocholithiasis. RECOMMENDATION: Abdominal ultrasound, serologies for chronic, inherited disease will be ordered. Avoid hepatotoxic medications. Trend LFTs daily while hospitalized. Optimize for cardiopulmonary status. DO ADRIANNA BOB/[id number]
[2020-03-20] MEDS ORDERED: GABAPENTIN 100 MG CAPSULE ONE (21:48)
[2020-03-20] MEDS ORDERED: SENNOSIDES 8.6MG TABLET (FP) PO ONE (21:48)
[2020-03-20] MEDS: SENNOSIDES 8.6MG TABLET (FP) PO SCH (21:51)
[2020-03-21] MEDS: GABAPENTIN 300 MG CAPSULE PO SCH ×3 (05:33→21:34)
[2020-03-21 07:31] LABS: BASO % 0.9 % (0-2.0); EOS % 0.6 % (0-4.5); HEMATOCRIT 28.2 % (32.4-45.2); HEMOGLOBIN 8.8 GM/dL (10.7-15.3); LYMPH % 16.5 % (8-40); MCH 29.2 pg (25.7-33.7); MCHC 31.2 g/dl (32.0-36.0); MEAN CELL VOLUME 93.9 fl (80-96); MEAN PLT VOLUME 9.4 fl (7.5-11.1); MONO % 22.3 % (3.8-10.2); NEUT % 59.7 % (42.8-82.8); PLATELET COUNT 258 K/MM3 (134-434); RDW 21.2 % (11.6-15.6); WHITE BLOOD COUNT 5.3 K/mm3 (4.0-10.0)
[2020-03-21 07:54] LABS: ALBUMIN 2.6 g/dl (3.4-5.0); BILIRUBIN,TOTAL 1.8 mg/dL (0.2-1); CALCIUM 8.2 mg/dL (8.5-10.1); CREATININE 4.4 mg/dL (0.55-1.3); POTASSIUM 5.2 mmol/L (3.5-5.1); TOT PROT 6.9 g/dl (6.4-8.2)
--- NOTE | 2020-03-21 08:43 | PN ---
Progress Note, Physician - Current Medication List Current Medications: Active Medications Apixaban (Eliquis -) 2.5 mg PO BID [facility] Last Admin: 03/20/20 21:50 Dose: 2.5 mg Documented by: Bupropion HCl (Wellbutrin Xl -) 300 mg PO DAILY [facility] Last Admin: 03/20/20 09:46 Dose: 300 mg Documented by: Docusate Sodium (Colace -) 100 mg PO BID PRN PRN Reason: CONSTIPATION Furosemide (Lasix Injection -) 40 mg IVPUSH DAILY [facility] Last Admin: 03/20/20 10:22 Dose: 40 mg Documented by: Gabapentin (Neurontin -) 300 mg PO TID [facility] Last Admin: 03/21/20 05:33 Dose: 300 mg Documented by: Hydralazine HCl (Apresoline -) 50 mg PO BID [facility] Last Admin: 03/20/20 21:50 Dose: 50 mg Documented by: Metoprolol Tartrate (Lopressor -) 50 mg PO BID [facility] Last Admin: 03/20/20 21:51 Dose: 50 mg Documented by: Oxycodone HCl (Roxicodone -) 5 mg PO Q6H PRN PRN Reason: PAIN LEVEL 7 - 10 Last Admin: 03/20/20 02:55 Dose: 5 mg Documented by: Polyethylene Glycol (Miralax (For Daily Use) -) 17 gm PO DAILY [facility] Last Admin: 03/20/20 12:53 Dose: 17 gm Documented by: Senna (Senna -) 2 tab PO HS [facility] Last Admin: 03/20/20 21:51 Dose: 2 tab Documented by: Verapamil HCl (Calan Sr -) 240 mg PO DAILY [facility] Last Admin: 03/20/20 09:45 Dose: 240 mg Documented by: - Objective Vital Signs: Vital Signs Temperature 97.5 F L 03/21/20 05:40 Pulse Rate 60 03/21/20 05:40 Respiratory Rate 20 03/21/20 05:40 Blood Pressure 131/65 03/21/20 05:40 O2 Sat by Pulse Oximetry (%) 94 L 03/20/20 22:30 Labs: CBC, BMP 03/21/20 05:50 03/21/20 05:50 Assessment/Plan - Problems (1) Elevated LFTs Assessment/Plan: -Likeley 2/2 to congestive hepatopathy -Will get GI input -Repeat labs -Monitor trend Problems reviewed: Yes Code(s): R79.89 - OTHER SPECIFIED ABNORMAL FINDINGS OF BLOOD CHEMISTRY (2) JOSEPH (acute kidney injury) Assessment/Plan: -Nephrology consult -Hold FABIAN -monitor trend Problems reviewed: Yes Code(s): N17.9 - ACUTE KIDNEY FAILURE, UNSPECIFIED (3) CHF exacerbation Assessment/Plan: -Cardiology consult -IV furosemide 40 mg daily -Low sodium diet -daily weights -Nasal O2 to keep SpO2>90% Problems reviewed: Yes Code(s): I50.9 - HEART FAILURE, UNSPECIFIED Qualifiers: Heart failure type: unspecified Qualified Code(s): I50.9 - Heart failure, unspecified (4) Anemia Assessment/Plan: -Check Iron, thyroid, B12, and stool Ob -Transfuse only if Hg<7.0 to avoid fluid overload -Could be dilutional vs CKD vs CD Problems reviewed: Yes Code(s): D64.9 - ANEMIA, UNSPECIFIED (5) Diabetes Assessment/Plan: -Last a1c at 5.8 -Recheck A1c -BGM AC HS -Diabetic low sodium diet Problems reviewed: Yes Code(s): E11.9 - TYPE 2 DIABETES MELLITUS WITHOUT COMPLICATIONS (6) Afib Assessment/Plan: -Chronic,rate controlled -Continue Eliquis Problems reviewed: Yes Code(s): I48.91 - UNSPECIFIED ATRIAL FIBRILLATION Qualifiers: Atrial fibrillation type: unspecified Qualified Code(s): I48.91 - Unspecified atrial fibrillation (7) Lethargy Assessment/Plan: -CT head -ABG
--- NOTE | 2020-03-21 09:17 | PN ---
Progress Note, Physician History of Present Illness: 59 year old woman with a PMHx of HTN, DM, diastolic CHF, moderate MR, afib (on eliquis), asthma (intubated previously), prior PE, pulmonary fibrosis, sleep apnea, CKD, OA, COPD (on 2L home oxygen) presented to the ED 03/19/20 with worsening SOB and bilateral lower extremity edema. Patient has been experiencing worsening SOB and leg edema in the past several days. She has shortness of breath both with minimal exertion and at rest with associated orthopnea and leg edema. She denies chest pain, palpitation, syncope or near syncope. But she has been lethargic while in ED and during interview. JOSEPH and hyperkalemia noted. BNP is severely elevated. Liver enzymes are up. CXR 03/19/20 showed mild bilateral pulmonary congestiThe patient remains lethargic and weak this morning. She is in mild respiratory distress on nasal cannula. The patient is in sinus bradycardia. Hemodynamically stable.. Acute on chronic diastolic heart failure and acute on chronic renal failure. Moderate mitral valve regurgitation. - Current Medication List Current Medications: Active Medications Apixaban (Eliquis -) 2.5 mg PO BID [facility] Last Admin: 03/20/20 21:50 Dose: 2.5 mg Documented by: Bupropion HCl (Wellbutrin Xl -) 300 mg PO DAILY [facility] Last Admin: 03/20/20 09:46 Dose: 300 mg Documented by: Docusate Sodium (Colace -) 100 mg PO BID PRN PRN Reason: CONSTIPATION Furosemide (Lasix Injection -) 40 mg IVPUSH DAILY [facility] Last Admin: 03/20/20 10:22 Dose: 40 mg Documented by: Gabapentin (Neurontin -) 300 mg PO TID [facility] Last Admin: 03/21/20 05:33 Dose: 300 mg Documented by: Hydralazine HCl (Apresoline -) 50 mg PO BID [facility] Last Admin: 03/20/20 21:50 Dose: 50 mg Documented by: Metoprolol Tartrate (Lopressor -) 50 mg PO BID [facility] Last Admin: 03/20/20 21:51 Dose: 50 mg Documented by: Oxycodone HCl (Roxicodone -) 5 mg PO Q6H PRN PRN Reason: PAIN LEVEL 7 - 10 Last Admin: 03/20/20 02:55 Dose: 5 mg Documented by: Polyethylene Glycol (Miralax (For Daily Use) -) 17 gm PO DAILY [facility] Last Admin: 03/20/20 12:53 Dose: 17 gm Documented by: Senna (Senna -) 2 tab PO HS [facility] Last Admin: 03/20/20 21:51 Dose: 2 tab Documented by: Verapamil HCl (Calan Sr -) 240 mg PO DAILY [facility] Last Admin: 03/20/20 09:45 Dose: 240 mg Documented by: - Objective Vital Signs: Vital Signs Temperature 97.7 F 03/21/20 08:55 Pulse Rate 60 03/21/20 08:55 Respiratory Rate 16 03/21/20 08:55 Blood Pressure 119/71 03/21/20 08:55 O2 Sat by Pulse Oximetry (%) 94 L 03/21/20 08:40 Constitutional: Yes: No Distress, Other (The patient is sleepy. Arousable. Mi nimally verbal. Lethargic.) Eyes: Yes: WNL, Conjunctiva Clear HENT: Yes: WNL, Atraumatic, Normocephalic Neck: Yes: WNL, Supple, Trachea Midline Cardiovascular: Yes: Regular Rate and Rhythm, Bradycardia, S1, S2 Respiratory: Yes: Regular, Rales, Other (Poor inspiratory effort. Decreased breath sounds at bases. Basilar rales. No wheezes.) Gastrointestinal: Yes: Normal Bowel Sounds, Soft ...Rectal Exam: Yes: Deferred Extremities: Yes: Other (Chronic venous stasis.) Edema: No Peripheral Pulses: Left Radial: 1+, Right Radial: 1+, Left Doralis Pedis: 1+, Right Dorsalis Pedis: 1+, Left Femoral: 1+, Right Femoral: 1+ Neurological: Yes: Lethargy Labs: CBC, BMP 03/21/20 05:50 03/21/20 05:50 Assessment/Plan 59 year old woman with a PMHx of HTN, DM, diastolic CHF, moderate MR, afib (on eliquis), asthma (intubated previously), prior PE, pulmonary fibrosis, sleep apnea, CKD, OA, COPD (on 2L home oxygen) presented to the ED 03/19/20 with worsening SOB and bilateral lower extremity edema. Patient has been experiencing worsening SOB and leg edema in the past several days. She has shortness of breath both with minimal exertion and at rest with associated orthopnea and leg edema. She denies chest pain, palpitation, syncope or near syncope. But she has been lethargic while in ED and during interview. JOSEPH and hyperkalemia noted. BNP is severely elevated. Liver enzymes are up. CXR 03/19/20 showed mild bilateral pulmonary congestiThe patient remains lethargic and weak this morning. She is in mild respiratory distress on nasal cannula. The patient is in sinus bradycardia. Hemodynamically stable.. Acute on chronic diastolic heart failure and acute on chronic renal failure. Moderate mitral valve regurgitation. Please arrange for a repeat echocardiogram. Give Lasix as needed for symptoms. Renal function is worse today. Consider temporary dialysis. Continue telemetry.
[2020-03-21] MEDS: APIXABAN 2.5 MG TABLET PO SCH ×2 (10:55→21:34)
[2020-03-21] MEDS: hydrALAZINE HCL 25 MG TABLET (FP) PO SCH ×2 (10:55→21:35)
[2020-03-21] MEDS: METOPROLOL TARTRATE 50 MG TABLET (FP) PO SCH ×2 (10:55→21:35)
[2020-03-21] MEDS: POLYETHYLENE GLYCOL 3350 119 GM BTL PO SCH (10:56)
[2020-03-21] MEDS: FUROSEMIDE 40 MG/4 ML INJECTABLE VIAL IVPUSH SCH (10:56)
[2020-03-21] MEDS: VERAPAMIL HCL 240 MG E.R. TABLET PO SCH (10:56)
[2020-03-21 11:32] LABS: ARTERIAL BLD GAS O2 SATURATION 94.3 mmHg (95-98); ARTERIAL BLOOD GAS BASE EXCESS 5.7 mmol/L (-2-2); ARTERIAL BLOOD GAS PO2 84.1 mmHg (80-100)
[2020-03-21 12:20] LABS: PLATELET ESTIMATE ADEQUATE; TARGET CELLS 1+
--- NOTE | 2020-03-21 15:03 | PN ---
Progress Note, Physician History of Present Illness: Pt seen and examined at bedside. She was lethargic earlier today. - Current Medication List Current Medications: Active Medications Apixaban (Eliquis -) 2.5 mg PO BID [facility] Last Admin: 03/21/20 10:55 Dose: 2.5 mg Documented by: Bupropion HCl (Wellbutrin Xl -) 300 mg PO DAILY [facility] Last Admin: 03/21/20 10:55 Dose: 300 mg Documented by: Docusate Sodium (Colace -) 100 mg PO BID PRN PRN Reason: CONSTIPATION Furosemide (Lasix Injection -) 40 mg IVPUSH DAILY [facility] Last Admin: 03/21/20 10:56 Dose: 40 mg Documented by: Gabapentin (Neurontin -) 300 mg PO TID [facility] Last Admin: 03/21/20 12:59 Dose: Not Given Documented by: Hydralazine HCl (Apresoline -) 50 mg PO BID [facility] Last Admin: 03/21/20 10:55 Dose: 50 mg Documented by: Metoprolol Tartrate (Lopressor -) 50 mg PO BID [facility] Last Admin: 03/21/20 10:55 Dose: 50 mg Documented by: Oxycodone HCl (Roxicodone -) 5 mg PO Q6H PRN PRN Reason: PAIN LEVEL 7 - 10 Last Admin: 03/20/20 02:55 Dose: 5 mg Documented by: Polyethylene Glycol (Miralax (For Daily Use) -) 17 gm PO DAILY [facility] Last Admin: 03/21/20 10:56 Dose: 17 gm Documented by: Senna (Senna -) 2 tab PO HS [facility] Last Admin: 03/20/20 21:51 Dose: 2 tab Documented by: Verapamil HCl (Calan Sr -) 240 mg PO DAILY [facility] Last Admin: 03/21/20 10:56 Dose: 240 mg Documented by: - Objective Vital Signs: Vital Signs Temperature 97.4 F L 03/21/20 13:20 Pulse Rate 57 L 03/21/20 13:20 Respiratory Rate 16 03/21/20 13:20 Blood Pressure 120/67 03/21/20 13:20 O2 Sat by Pulse Oximetry (%) 98 03/21/20 13:20 Constitutional: Yes: Calm Eyes: Yes: Conjunctiva Clear Cardiovascular: Yes: S1, S2 Respiratory: Yes: On Nasal O2 Gastrointestinal: Yes: Soft Genitourinary: Yes: Montes Present Musculoskeletal: Yes: Muscle Weakness Edema: Yes Edema: LLE: 2+, RLE: 2+ Integumentary: Yes: Venous Stasis Changes Neurological: Yes: Other (drowsy) Labs: CBC, BMP 03/21/20 05:50 03/21/20 05:50 Problem List - Problems (1) Anemia Code(s): D64.9 - ANEMIA, UNSPECIFIED (2) CHF (congestive heart failure) Code(s): I50.9 - HEART FAILURE, UNSPECIFIED Qualifiers: (3) JOSEPH (acute kidney injury) Code(s): N17.9 - ACUTE KIDNEY FAILURE, UNSPECIFIED (4) Afib Code(s): I48.91 - UNSPECIFIED ATRIAL FIBRILLATION Qualifiers: Atrial fibrillation type: unspecified Qualified Code(s): I48.91 - Unspecified atrial fibrillation (5) CHF (congestive heart failure) Code(s): I50.9 - HEART FAILURE, UNSPECIFIED Qualifiers: Heart failure type: diastolic Heart failure chronicity: unspecified Qualified Code(s): I50.30 - Unspecified diastolic (congestive) heart failure (6) CKD (chronic kidney disease) Code(s): N18.9 - CHRONIC KIDNEY DISEASE, UNSPECIFIED Assessment/Plan Current Medications Generic Name Dose Route Start Last Admin Trade Name Freq PRN Reason Stop Dose Admin Apixaban 2.5 mg 03/19/20 22:00 03/21/20 10:55 Eliquis - PO 2.5 mg BID [facility] Administration Bupropion HCl 300 mg 03/20/20 10:00 03/21/20 10:55 Wellbutrin Xl - PO 300 mg DAILY [facility] Administration Docusate Sodium 100 mg 03/19/20 13:38 Colace - PO BID PRN CONSTIPATION Furosemide 40 mg 03/20/20 10:00 03/21/20 10:56 Lasix Injection - IVPUSH 40 mg DAILY [facility] Administration Gabapentin 300 mg 03/19/20 14:00 03/21/20 12:59 Neurontin - PO Not Given TID [facility] Hydralazine HCl 50 mg 03/19/20 22:00 03/21/20 10:55 Apresoline - PO 50 mg BID [facility] Administration Metoprolol Tartrate 50 mg 03/19/20 22:00 03/21/20 10:55 Lopressor - PO 50 mg BID [facility] Administration Oxycodone HCl 5 mg 03/19/20 13:38 03/20/20 02:55 Roxicodone - PO 5 mg Q6H PRN Administration PAIN LEVEL 7 - 10 Polyethylene Glycol 17 gm 03/20/20 12:45 03/21/20 10:56 Miralax (For Daily Use) - PO 17 gm DAILY [facility] Administration Senna 2 tab 03/20/20 22:00 03/20/20 21:51 Senna - PO 2 tab HS [facility] Administration Verapamil HCl 240 mg 03/20/20 10:00 03/21/20 10:56 Calan Sr - PO 240 mg DAILY [facility] Administration Impression 1. CKD 2. CHF 3. a-fib 4. lower ext edema 5. COPD 6. active smoker 7. non compliance 8. dyspnea 9. hyperkalemia Plan - cont to monitor renal function - pulm eval, pt retaining co2 - start bipap - monitor urine output - maintain montes - follow echo - may need HD if she worsens - start lokelma
[2020-03-21] MEDS: SODIUM ZIRCONIUM CYCLOSILICATE (LOKELMA) 5 GM PACKET PO SCH (17:40)
--- NOTE | 2020-03-21 20:24 | PN.GI ---
GI Progress Note Subjective: GI Note ( covering the [facility] GI service): Lethargic but arousable. LFTs improving. Sonogram reveals distended hepatic veins c/w congestive hepatopathy which is also supported by her 2019 echo with severe tricuspid and aortic regurgitation and moderate pulmonary regurgitation. - Objective Vital Signs: Vital Signs Temperature 97.5 F L 03/21/20 18:00 Pulse Rate 58 L 03/21/20 18:00 Respiratory Rate 18 03/21/20 18:00 Blood Pressure 108/54 L 03/21/20 18:00 O2 Sat by Pulse Oximetry (%) 98 03/21/20 16:23 Laboratory Tests 03/20/16 01/17/20 03/19/20 11:30 10:30 11:40 Iron Saturation Ferritin Total Bilirubin AST 27 213 H ALT 27 115 H Alkaline Phosphatase [place] Screen [employer] Intrp COVID-19 ([facility]) Hepatitis C Antibody <0.1 Hep Bs Antigen Hep Bs Antibody Hep B Core Total Ab Hep B Core IgM Ab Hepatitis Be Antibody Hepatitis Be Antigen HCV Quantitation 03/19/20 03/20/20 03/20/20 11:42 12:45 12:45 Iron Saturation 8 L Ferritin 77.9 Total Bilirubin 1.8 H AST 118 H ALT 95 H Alkaline Phosphatase 114 [place] Screen [employer] Intrp COVID-19 ([facility]) Not detected Hepatitis C Antibody Hep Bs Antigen Hep Bs Antibody Hep B Core Total Ab Hep B Core IgM Ab Hepatitis Be Antibody Hepatitis Be Antigen HCV Quantitation 03/21/20 03/21/20 03/21/20 05:50 08:30 08:30 Iron Saturation Ferritin Total Bilirubin 1.8 H AST 76 H ALT 77 H Alkaline Phosphatase 114 [place] Screen [employer] Intrp COVID-19 ([facility]) Hepatitis C Antibody Hep Bs Antigen Pending Hep Bs Antibody Pending Hep B Core Total Ab Pending Hep B Core IgM Ab Pending Hepatitis Be Antibody Pending Hepatitis Be Antigen Pending HCV Quantitation Pending 03/21/20 03/21/20 08:30 08:30 Iron Saturation Ferritin Total Bilirubin AST ALT Alkaline Phosphatase [place] Screen Pending [employer] Intrp Pending COVID-19 ([facility]) Hepatitis C Antibody Hep Bs Antigen Hep Bs Antibody Hep B Core Total Ab Hep B Core IgM Ab Hepatitis Be Antibody Hepatitis Be Antigen HCV Quantitation Constitutional: Other (Lethargic but arousable with good saturation) Gastrointestinal Inspection: Yes: Other (lower abdominal wall edema) ...Auscultate: Yes: Hypoactive Bowel Sounds ...Palpate: Yes: Soft, Other (nontender) Edema: LLE: 3+, RLE: 3+ Labs: CBC, BMP 03/21/20 05:50 03/21/20 05:50 Assessment/Plan Impresison: - Congestive hepatopathy due to cor pulmonale due to pulmonary disease and severe multivalve regurgitations responding to diuresis. No ascites on sono. has lower body anasarca - Gallstones Plan: -- Continue diuresis -- Serial LFTs -- Viral serologies pending -- Check ammonia level Dr Cano will be covering tomorrow Problem List - Problems (1) Chronic passive congestion of liver Code(s): K76.1 - CHRONIC PASSIVE CONGESTION OF LIVER (2) Cor pulmonale, chronic Code(s): I27.81 - COR PULMONALE (CHRONIC) (3) Tricuspid regurgitation Code(s): I07.1 - RHEUMATIC TRICUSPID INSUFFICIENCY (5) Aortic regurgitation Code(s): I35.1 - NONRHEUMATIC AORTIC (VALVE) INSUFFICIENCY (6) Elevated LFTs Code(s): R79.89 - OTHER SPECIFIED ABNORMAL FINDINGS OF BLOOD CHEMISTRY (7) Atrial fibrillation Code(s): I48.91 - UNSPECIFIED ATRIAL FIBRILLATION (8) Gallstones Code(s): K80.20 - CALCULUS OF GALLBLADDER W/O CHOLECYSTITIS W/O OBSTRUCTION
[2020-03-21] MEDS: SENNOSIDES 8.6MG TABLET (FP) PO SCH (21:36)
[2020-03-22] MEDS: GABAPENTIN 300 MG CAPSULE PO SCH ×3 (05:56→22:17)
[2020-03-22 07:38] LABS: INR 1.61 (0.83-1.09); PROTHROMBIN TIME (PATIENT) 19.1 SEC (9.7-13.0)
[2020-03-22 07:41] LABS: EOS % 0.7 % (0-4.5); HEMATOCRIT 26.3 % (32.4-45.2); HEMOGLOBIN 8.2 GM/dL (10.7-15.3); LYMPH % 14.6 % (8-40); MCH 28.6 pg (25.7-33.7); MEAN CELL VOLUME 92.2 fl (80-96); MEAN PLT VOLUME 8.5 fl (7.5-11.1); MONO % 18.3 % (3.8-10.2); NEUT % 65.4 % (42.8-82.8); PLATELET COUNT 245 K/MM3 (134-434); RBC 2.85 M/mm3 (3.60-5.2); RDW 21.1 % (11.6-15.6); WHITE BLOOD COUNT 5.5 K/mm3 (4.0-10.0)
[2020-03-22 08:00] LABS: ALBUMIN 2.6 g/dl (3.4-5.0); BILIRUBIN,TOTAL 1.4 mg/dL (0.2-1); BLOOD UREA NITROGEN 70.8 mg/dL (7-18); CALCIUM 8.1 mg/dL (8.5-10.1); CREATININE 4.8 mg/dL (0.55-1.3); POTASSIUM 4.9 mmol/L (3.5-5.1); TOT PROT 6.7 g/dl (6.4-8.2)
--- NOTE | 2020-03-22 08:51 | PN ---
Progress Note, Physician History of Present Illness: 59 year old woman with a PMHx of HTN, DM, diastolic CHF, moderate MR, afib (on eliquis), asthma (intubated previously), prior PE, pulmonary fibrosis, sleep apnea, CKD, OA, COPD (on 2L home oxygen) presented to the ED 03/19/20 with worsening SOB and bilateral lower extremity edema. Patient has been experiencing worsening SOB and leg edema in the past several days. She has shortness of breath both with minimal exertion and at rest with associated orthopnea and leg edema. She denies chest pain, palpitation, syncope or near syncope. But she has been lethargic while in ED and during interview. JOSEPH and hyperkalemia noted. BNP is severely elevated. Liver enzymes are up. CXR 03/19/20 showed mild bilateral pulmonary congestiThe patient remains lethargic and weak this morning. She is in mild respiratory distress on nasal cannula. The patient is in sinus bradycardia. Hemodynamically stable.. Acute on chronic diastolic heart failure and acute on chronic renal failure. Moderate mitral valve regurgitation. - Current Medication List Current Medications: Active Medications Apixaban (Eliquis -) 2.5 mg PO BID [facility] Last Admin: 03/21/20 21:34 Dose: 2.5 mg Documented by: Bupropion HCl (Wellbutrin Xl -) 300 mg PO DAILY [facility] Last Admin: 03/21/20 10:55 Dose: 300 mg Documented by: Docusate Sodium (Colace -) 100 mg PO BID PRN PRN Reason: CONSTIPATION Furosemide (Lasix Injection -) 40 mg IVPUSH DAILY [facility] Last Admin: 03/21/20 10:56 Dose: 40 mg Documented by: Gabapentin (Neurontin -) 300 mg PO TID [facility] Last Admin: 03/22/20 05:56 Dose: Not Given Documented by: Hydralazine HCl (Apresoline -) 50 mg PO BID [facility] Last Admin: 03/21/20 21:35 Dose: 50 mg Documented by: Metoprolol Tartrate (Lopressor -) 50 mg PO BID [facility] Last Admin: 03/21/20 21:35 Dose: Not Given Documented by: Oxycodone HCl (Roxicodone -) 5 mg PO Q6H PRN PRN Reason: PAIN LEVEL 7 - 10 Last Admin: 03/20/20 02:55 Dose: 5 mg Documented by: Polyethylene Glycol (Miralax (For Daily Use) -) 17 gm PO DAILY [facility] Last Admin: 03/21/20 10:56 Dose: 17 gm Documented by: Senna (Senna -) 2 tab PO HS [facility] Last Admin: 03/21/20 21:36 Dose: 2 tab Documented by: Sodium Zirconium Cyclosilicate (Lokelma) 10 gm PO DAILY [facility] Last Admin: 03/21/20 17:40 Dose: 10 gm Documented by: Verapamil HCl (Calan Sr -) 240 mg PO DAILY [facility] Last Admin: 03/21/20 10:56 Dose: 240 mg Documented by: - Objective Vital Signs: Vital Signs Temperature 98 F 03/22/20 06:00 Pulse Rate 56 L 03/22/20 06:00 Respiratory Rate 20 03/22/20 06:00 Blood Pressure 118/56 L 03/22/20 06:00 O2 Sat by Pulse Oximetry (%) 91 L 03/22/20 08:35 Constitutional: Yes: Well Nourished, No Distress, Calm Eyes: Yes: WNL, Conjunctiva Clear HENT: Yes: WNL, Atraumatic, Normocephalic Cardiovascular: Yes: Regular Rate and Rhythm, S1, S2, Other (Poor inspiratory effort. Decreased breath sounds at bases. No rales/wheezes.) Respiratory: Yes: On Venti-Mask, SOB Gastrointestinal: Yes: Normal Bowel Sounds, Soft ...Rectal Exam: Yes: Deferred Extremities: Yes: Other (Chronic venous stasis) Edema: No Peripheral Pulses: Left Radial: 1+, Right Radial: 1+, Left Doralis Pedis: 1+, Right Dorsalis Pedis: 1+, Left Femoral: 1+, Right Femoral: 1+ Neurological: Yes: Lethargy, Weakness Psychiatric: Yes: WNL Labs: CBC, BMP 03/22/20 07:10 03/22/20 07:10 INR, PTT INR 1.61 (0.83-1.09) H 03/22/20 07:10 Assessment/Plan 59 year old woman with a PMHx of HTN, DM, diastolic CHF, moderate MR, afib (on eliquis), asthma (intubated previously), prior PE, pulmonary fibrosis, sleep apnea, CKD, OA, COPD (on 2L home oxygen) presented to the ED 03/19/20 with worsening SOB and bilateral lower extremity edema. Patient has been experiencing worsening SOB and leg edema in the past several days. She has shortness of breath both with minimal exertion and at rest with associated orthopnea and leg edema. She denies chest pain, palpitation, syncope or near syncope. But she has been lethargic while in ED and during interview. JOSEPH and hyperkalemia noted. BNP is severely elevated. Liver enzymes are up. CXR 03/19/20 showed mild bilateral pulmonary congestiThe patient remains lethargic and weak this morning. She is in mild respiratory distress on nasal cannula. The patient is in sinus bradycardia. Hemodynamically stable.. Acute on chronic diastolic heart failure and acute on chronic renal failure. Moderate mitral valve regurgitation. Respiratory status is improving. The patient remains on oxygen with a mask. She is in no apparent distress today. Sleepy and arousable. Denies chest pains. Also denies shortness of breath. No palpitations. The patient has been maintaining sinus rhythm. Please continue current regimen. Give Lasix only as needed for symptoms. Echocardiogram is still pending. Cardiac stable.
--- NOTE | 2020-03-22 09:22 | PN ---
Progress Note, Physician - Current Medication List Current Medications: Active Medications Apixaban (Eliquis -) 2.5 mg PO BID [facility] Last Admin: 03/21/20 21:34 Dose: 2.5 mg Documented by: Bupropion HCl (Wellbutrin Xl -) 300 mg PO DAILY [facility] Last Admin: 03/21/20 10:55 Dose: 300 mg Documented by: Docusate Sodium (Colace -) 100 mg PO BID PRN PRN Reason: CONSTIPATION Furosemide (Lasix Injection -) 40 mg IVPUSH DAILY [facility] Last Admin: 03/21/20 10:56 Dose: 40 mg Documented by: Gabapentin (Neurontin -) 300 mg PO TID [facility] Last Admin: 03/22/20 05:56 Dose: Not Given Documented by: Hydralazine HCl (Apresoline -) 50 mg PO BID [facility] Last Admin: 03/21/20 21:35 Dose: 50 mg Documented by: Metoprolol Tartrate (Lopressor -) 50 mg PO BID [facility] Last Admin: 03/21/20 21:35 Dose: Not Given Documented by: Oxycodone HCl (Roxicodone -) 5 mg PO Q6H PRN PRN Reason: PAIN LEVEL 7 - 10 Last Admin: 03/20/20 02:55 Dose: 5 mg Documented by: Polyethylene Glycol (Miralax (For Daily Use) -) 17 gm PO DAILY [facility] Last Admin: 03/21/20 10:56 Dose: 17 gm Documented by: Senna (Senna -) 2 tab PO HS [facility] Last Admin: 03/21/20 21:36 Dose: 2 tab Documented by: Sodium Zirconium Cyclosilicate (Lokelma) 10 gm PO DAILY [facility] Last Admin: 03/21/20 17:40 Dose: 10 gm Documented by: Verapamil HCl (Calan Sr -) 240 mg PO DAILY [facility] Last Admin: 03/21/20 10:56 Dose: 240 mg Documented by: - Objective Vital Signs: Vital Signs Temperature 98 F 03/22/20 06:00 Pulse Rate 56 L 03/22/20 06:00 Respiratory Rate 20 03/22/20 06:00 Blood Pressure 118/56 L 03/22/20 06:00 O2 Sat by Pulse Oximetry (%) 91 L 03/22/20 08:35 Cardiovascular: Yes: S1, S2 Respiratory: Yes: Regular, CTA Bilaterally Gastrointestinal: Yes: Normal Bowel Sounds, Soft. No: Tenderness Labs: CBC, BMP 03/22/20 07:10 03/22/20 07:10 INR, PTT INR 1.61 (0.83-1.09) H 03/22/20 07:10 Assessment/Plan - Problems (1) Elevated LFTs Assessment/Plan: -Likeley 2/2 to congestive hepatopathy -Will get GI input -Repeat labs -Monitor trend Problems reviewed: Yes Code(s): R79.89 - OTHER SPECIFIED ABNORMAL FINDINGS OF BLOOD CHEMISTRY (2) JOSEPH (acute kidney injury) Assessment/Plan: -Nephrology consult -Hold FABIAN -monitor trend Problems reviewed: Yes Code(s): N17.9 - ACUTE KIDNEY FAILURE, UNSPECIFIED (3) CHF exacerbation Assessment/Plan: -Cardiology consult -IV furosemide 40 mg daily -Low sodium diet -daily weights -Nasal O2 to keep SpO2>90% Problems reviewed: Yes Code(s): I50.9 - HEART FAILURE, UNSPECIFIED Qualifiers: Heart failure type: unspecified Qualified Code(s): I50.9 - Heart failure, unspecified (4) Anemia Assessment/Plan: -Check Iron, thyroid, B12, and stool Ob -Transfuse only if Hg<7.0 to avoid fluid overload -Could be dilutional vs CKD vs CD Problems reviewed: Yes Code(s): D64.9 - ANEMIA, UNSPECIFIED (5) Diabetes Assessment/Plan: -Last a1c at 5.8 -Recheck A1c -BGM AC HS -Diabetic low sodium diet Problems reviewed: Yes Code(s): E11.9 - TYPE 2 DIABETES MELLITUS WITHOUT COMPLICATIONS (6) Afib Assessment/Plan: -Chronic,rate controlled -Continue Eliquis Problems reviewed: Yes Code(s): I48.91 - UNSPECIFIED ATRIAL FIBRILLATION Qualifiers: Atrial fibrillation type: unspecified Qualified Code(s): I48.91 - Unspecified atrial fibrillation (7) Lethargy Assessment/Plan: -CT head nad -ABG noted on bipap -improved
[2020-03-22] MEDS ORDERED: FUROSEMIDE 40 MG/4 ML INJECTABLE VIAL IVPB ONE (10:15)
[2020-03-22] MEDS: SODIUM ZIRCONIUM CYCLOSILICATE (LOKELMA) 5 GM PACKET PO SCH (10:18)
[2020-03-22] MEDS: FUROSEMIDE 40 MG/4 ML INJECTABLE VIAL IVPUSH SCH ×2 (10:18→14:54)
[2020-03-22] MEDS: APIXABAN 2.5 MG TABLET PO SCH ×2 (10:19→21:59)
--- NOTE | 2020-03-22 11:18 | PN ---
Progress Note (short form) - Note Progress Note: PULMONARY CONSULTATION DICTATED 03/22/20 IMP ACUTE ON CHRONIC HYPOXEMIC/HYPERCAPNEIC RESPIRATORY FAILURE ACUTE ON CHRONIC CHF COPD O2 DEPENDENT H/O RESPIRATORY FAILURE REQUIRING VENT SUPPORT 10/28 ILD ACUTE ON CHRONIC KIDNEY DISEASE H/O PE AFIB TANISHA DM HTM ELEVATED LFTS PLAN SUPPLEMENTAL O2 BIPAP LASIX INHALE BRONCHODILATORS AC MONITOR LYTES,RENAL FUNCTION TREND LFTS F/U CHEST X-RAYS F/U CHEST CT DR ROLLE Problem List - Problems (1) Acute on chronic respiratory failure with hypoxia and hypercapnia Code(s): J96.21 - ACUTE AND CHRONIC RESPIRATORY FAILURE WITH HYPOXIA; J96.22 - ACUTE AND CHRONIC RESPIRATORY FAILURE WITH HYPERCAPNIA (2) Anemia Code(s): D64.9 - ANEMIA, UNSPECIFIED (3) CHF (congestive heart failure) Code(s): I50.9 - HEART FAILURE, UNSPECIFIED Qualifiers: (4) Elevated LFTs Code(s): R79.89 - OTHER SPECIFIED ABNORMAL FINDINGS OF BLOOD CHEMISTRY (5) Acute kidney injury superimposed on CKD Code(s): N17.9 - ACUTE KIDNEY FAILURE, UNSPECIFIED; N18.9 - CHRONIC KIDNEY DISEASE, UNSPECIFIED (6) Acute on chronic diastolic (congestive) heart failure Code(s): I50.33 - ACUTE ON CHRONIC DIASTOLIC (CONGESTIVE) HEART FAILURE (7) Acute respiratory failure Code(s): J96.00 - ACUTE RESPIRATORY FAILURE, UNSP W HYPOXIA OR HYPERCAPNIA (8) Afib Code(s): I48.91 - UNSPECIFIED ATRIAL FIBRILLATION Qualifiers: Atrial fibrillation type: unspecified Qualified Code(s): I48.91 - Unspecified atrial fibrillation (9) Atrial fibrillation Code(s): I48.91 - UNSPECIFIED ATRIAL FIBRILLATION (10) HTN (hypertension) Code(s): I10 - ESSENTIAL (PRIMARY) HYPERTENSION (11) Leg edema Code(s): R60.0 - LOCALIZED EDEMA (12) Respiratory acidosis Code(s): E87.2 - ACIDOSIS (13) Cigarette nicotine dependence Code(s): F17.200 - NICOTINE DEPENDENCE, UNSPECIFIED, UNCOMPLICATED
[2020-03-22] MEDS: VERAPAMIL HCL 240 MG E.R. TABLET PO SCH (11:29)
[2020-03-22] MEDS: hydrALAZINE HCL 25 MG TABLET (FP) PO SCH ×2 (11:29→21:59)
[2020-03-22] MEDS: POLYETHYLENE GLYCOL 3350 119 GM BTL PO SCH (11:30)
[2020-03-22] MEDS: METOPROLOL TARTRATE 50 MG TABLET (FP) PO SCH ×2 (11:30→22:01)
--- NOTE | 2020-03-22 11:30 | PN ---
Progress Note, Physician History of Present Illness: Pt seen and examined at bedside. She is difficult to arouse. She refused bipap at night. - Current Medication List Current Medications: Active Medications Apixaban (Eliquis -) 2.5 mg PO BID [facility] Last Admin: 03/22/20 10:19 Dose: 2.5 mg Documented by: Bupropion HCl (Wellbutrin Xl -) 300 mg PO DAILY [facility] Last Admin: 03/22/20 10:19 Dose: 300 mg Documented by: Docusate Sodium (Colace -) 100 mg PO BID PRN PRN Reason: CONSTIPATION Furosemide (Lasix Injection -) 40 mg IVPUSH DAILY [facility] Last Admin: 03/22/20 10:18 Dose: 40 mg Documented by: Gabapentin (Neurontin -) 300 mg PO TID [facility] Last Admin: 03/22/20 05:56 Dose: Not Given Documented by: Hydralazine HCl (Apresoline -) 50 mg PO BID [facility] Last Admin: 03/21/20 21:35 Dose: 50 mg Documented by: Metoprolol Tartrate (Lopressor -) 50 mg PO BID [facility] Last Admin: 03/21/20 21:35 Dose: Not Given Documented by: Oxycodone HCl (Roxicodone -) 5 mg PO Q6H PRN PRN Reason: PAIN LEVEL 7 - 10 Last Admin: 03/20/20 02:55 Dose: 5 mg Documented by: Polyethylene Glycol (Miralax (For Daily Use) -) 17 gm PO DAILY [facility] Last Admin: 03/21/20 10:56 Dose: 17 gm Documented by: Senna (Senna -) 2 tab PO HS [facility] Last Admin: 03/21/20 21:36 Dose: 2 tab Documented by: Sodium Zirconium Cyclosilicate (Lokelma) 10 gm PO DAILY [facility] Last Admin: 03/22/20 10:18 Dose: 10 gm Documented by: Verapamil HCl (Calan Sr -) 240 mg PO DAILY [facility] Last Admin: 03/21/20 10:56 Dose: 240 mg Documented by: - Objective Vital Signs: Vital Signs Temperature 97.6 F 03/22/20 10:00 Pulse Rate 67 03/22/20 10:00 Respiratory Rate 16 03/22/20 10:00 Blood Pressure 114/68 03/22/20 10:00 O2 Sat by Pulse Oximetry (%) 90 L 03/22/20 10:00 Constitutional: Yes: Calm Eyes: Yes: Conjunctiva Clear HENT: Yes: Atraumatic Neck: Yes: Supple Cardiovascular: Yes: S1, S2 Respiratory: Yes: On BiPap Gastrointestinal: Yes: Soft Genitourinary: Yes: Montes Present Musculoskeletal: Yes: Muscle Weakness Edema: Yes Edema: LLE: 2+, RLE: 2+ Neurological: Yes: Lethargy Labs: CBC, BMP 03/22/20 07:10 03/22/20 07:10 INR, PTT INR 1.61 (0.83-1.09) H 03/22/20 07:10 - ....Imaging Chest X-ray: Report Reviewed Problem List - Problems (1) Anemia Code(s): D64.9 - ANEMIA, UNSPECIFIED (2) CHF (congestive heart failure) Code(s): I50.9 - HEART FAILURE, UNSPECIFIED Qualifiers: (3) JOSEPH (acute kidney injury) Code(s): N17.9 - ACUTE KIDNEY FAILURE, UNSPECIFIED (4) Afib Code(s): I48.91 - UNSPECIFIED ATRIAL FIBRILLATION Qualifiers: Qualified Code(s): I48.91 - Unspecified atrial fibrillation (5) CHF (congestive heart failure) Code(s): I50.9 - HEART FAILURE, UNSPECIFIED Qualifiers: Qualified Code(s): I50.30 - Unspecified diastolic (congestive) heart failure (6) CKD (chronic kidney disease) Code(s): N18.9 - CHRONIC KIDNEY DISEASE, UNSPECIFIED Assessment/Plan Current Medications Generic Name Dose Route Start Last Admin Trade Name Freq PRN Reason Stop Dose Admin Apixaban 2.5 mg 03/19/20 22:00 03/22/20 10:19 Eliquis - PO 2.5 mg BID JOLENE Administration Bupropion HCl 300 mg 03/20/20 10:00 03/22/20 10:19 Wellbutrin Xl - PO 300 mg DAILY JOLENE Administration Docusate Sodium 100 mg 03/19/20 13:38 Colace - PO BID PRN CONSTIPATION Furosemide 40 mg 03/20/20 10:00 03/22/20 10:18 Lasix Injection - IVPUSH 40 mg DAILY JOLENE Administration Gabapentin 300 mg 03/19/20 14:00 03/22/20 05:56 Neurontin - PO Not Given TID JOLENE Hydralazine HCl 50 mg 03/19/20 22:00 03/21/20 21:35 Apresoline - PO 50 mg BID JOLENE Administration Metoprolol Tartrate 50 mg 03/19/20 22:00 03/21/20 21:35 Lopressor - PO Not Given BID JOLENE Oxycodone HCl 5 mg 03/19/20 13:38 03/20/20 02:55 Roxicodone - PO 5 mg Q6H PRN Administration PAIN LEVEL 7 - 10 Polyethylene Glycol 17 gm 03/20/20 12:45 03/21/20 10:56 Miralax (For Daily Use) - PO 17 gm DAILY [facility]ENE Administration Senna 2 tab 03/20/20 22:00 03/21/20 21:36 Senna - PO 2 tab HS JOLENE Administration Sodium Zirconium Cyclosilicate 10 gm 03/21/20 15:15 03/22/20 10:18 Lokelma PO 10 gm DAILY [facility] Administration Verapamil HCl 240 mg 03/20/20 10:00 03/21/20 10:56 Calan Sr - PO 240 mg DAILY [facility]ENE Administration Impression 1. CKD 2. CHF 3. a-fib 4. lower ext edema 5. COPD 6. active smoker 7. non compliance 8. dyspnea 9. hyperkalemia Plan - renal function worsening - follow serologies - unable to reach family to discuss HD and pt is too lethargic to give own consent at this point - will increase lasix and monitor response - cont bipap and asses mental status (pt is a retainer) - monitor urine output - she remains overloaded - monitor urine output - maintain montes - follow echo - may need HD if she worsens
[2020-03-22 12:13] LABS: ARTERIAL BLOOD GAS BASE EXCESS 5.6 mmol/L (-2-2); ARTERIAL BLOOD GAS PO2 60.8 mmHg (80-100); ARTERIAL BLOOD GAS pH 7.306 (7.350-7.450)
--- NOTE | 2020-03-22 12:34 | CONS ---
DATE OF CONSULTATION: 03/22/2020 REFERRING PHYSICIAN: Apolonia Soto MD HISTORY: The patient is a 59-year-old female known to me from previous hospitalization with past medical history of COPD on home O2 with chronic hypercapnia; hypoxemia; atrial fibrillation on Eliquis; CHF; hypertension; history of pulmonary emboli; obstructive sleep apnea, never underwent formal sleep study; chronic kidney disease; osteoarthritis; diabetes; interstitial pulmonary fibrosis; history of pneumonia; recent episode of respiratory failure requiring ventilatory support in September and October 2019, admitted to [facility] on March 19 with the complaint of increasing shortness of breath with minimal exertion, orthopnea, and lower extremity edema. Patient on admission denied any complaints of chest pain, nausea, vomiting, diaphoresis. On admission, the patient is felt to have acute congestive heart failure as well as acute on chronic kidney disease. BNP was noted to be 13,000. Patient was subsequently transferred to medical telemetry unit for further monitoring. Of note is patient's hospitalization has been significant for progressive respiratory insufficiency and decreased mental status and hypercapnia requiring BiPAP. PAST MEDICAL HISTORY: Again includes obstructive sleep apnea, history of pulmonary emboli, congestive heart failure, atrial fibrillation, hypertension, COPD on O2, questionable pulmonary fibrosis, history of respiratory failure requiring ventilatory support, chronic kidney disease, osteoarthritis, diabetes. REVIEW OF SYSTEMS: Unable to obtain at this time. Patient is currently poorly responsive on BiPAP. SOCIAL HISTORY: History of tobacco use. MEDICATIONS: Current medications include lisinopril, Eliquis, Neurontin, Wellbutrin, Lopressor, Calan, senna, Apresoline, Lasix, Roxicodone. PHYSICAL EXAMINATION: General: The patient is a well-developed, well-nourished female, poorly responsive on BiPAP. Vital Signs: She is currently afebrile. Her heart rate is 67. O2 saturation is 90%. Respiratory rate is 16. Blood pressure is 114/68. HEENT: Normocephalic, atraumatic. Neck: Supple. Heart: Irregularly irregular. S1, S2. Chest: Scattered crackles bilaterally, a few scattered rhonchi. Abdomen: Soft. Bowel sounds positive. Extremities: Bilateral lower extremity edema. LABORATORY: BUN 70, creatinine 4.8. Bilirubin is 1.4. Direct bilirubin is 1. Initial ALT was 77, most recent 56. Initial AST was 76, most recent one is 44. BNP 13,188. Blood gas with pH 7.26, PCO2 of 78, a PO2 of 84, bicarbonate of 34, and saturation of 94. That was on March 21 on 3 L nasal cannula. Chest x-ray: Cardiomegaly, mild pulmonary vascular congestion. CT scan of the head: No evidence of acute intracranial pathology. IMPRESSION: 1. Acute on chronic hypoxemic, hypercapnic respiratory failure secondary to acute on chronic congestive heart failure. 2. Chronic obstructive pulmonary disease, oxygen dependent. 3. History of respiratory failure requiring ventilatory support, September and October 2019. 4. History of pneumonia. 5. Questionable history of interstitial lung disease. 6. Acute on chronic renal failure, kidney failure. 7. History of pulmonary emboli. 8. Atrial fibrillation. 9. Obstructive sleep apnea. 10. Diabetes. 11. Hypertension. 12. Elevated liver function tests. PLAN: Supplemental O2, BiPAP. Check arterial blood gas. Continue Lasix, inhaled bronchodilators. Continue anticoagulation. Monitor electrolytes, renal function, trend LFTs, follow up chest x-rays. When patient is clinically stable, follow with chest CT. DWAYNE ROLLE M.D. [id number] MTDD
--- NOTE | 2020-03-22 13:52 | PN.GI ---
GI Progress Note Subjective: no new complaints - status unchanged - Objective Vital Signs: Vital Signs Temperature 97.6 F 03/22/20 10:00 Pulse Rate 67 03/22/20 10:00 Respiratory Rate 16 03/22/20 10:00 Blood Pressure 114/68 03/22/20 10:00 O2 Sat by Pulse Oximetry (%) 91 L 03/22/20 12:14 Constitutional: No Distress Respiratory: Yes: WNL Gastrointestinal Inspection: Yes: WNL ...Auscultate: Yes: Normoactive Bowel Sounds Labs: CBC, BMP 03/22/20 07:10 03/22/20 07:10 INR, PTT INR 1.61 (0.83-1.09) H 03/22/20 07:10 Problem List - Problems (1) CHF (congestive heart failure) Assessment/Plan: -- Continue diuresis -- Serial LFTs -- f/u Viral serologies which are still pending -- avoid hepatotoxic medications -- optimize cardiopulmonary status Code(s): I50.9 - HEART FAILURE, UNSPECIFIED Qualifiers: (2) Chronic passive congestion of liver Code(s): K76.1 - CHRONIC PASSIVE CONGESTION OF LIVER (3) Elevated LFTs Code(s): R79.89 - OTHER SPECIFIED ABNORMAL FINDINGS OF BLOOD CHEMISTRY
[2020-03-22 19:36] LABS: ARTERIAL BLD GAS O2 SATURATION 89.6 mmHg (95-98); ARTERIAL BLOOD GAS PO2 61.4 mmHg (80-100); ARTERIAL BLOOD GAS pH 7.346 (7.350-7.450)
[2020-03-22 19:37] LABS: ALLENS TEST POSITIVE; VENT MODE S/T; VENT RATE 20
[2020-03-22] MEDS: SENNOSIDES 8.6MG TABLET (FP) PO SCH (21:59)
[2020-03-23 03:07] LABS: HEP B CORE AB, TOT Negative (Negative)
[2020-03-23] MEDS: GABAPENTIN 300 MG CAPSULE PO SCH ×3 (06:42→22:02)
[2020-03-23] MEDS: FUROSEMIDE 40 MG/4 ML INJECTABLE VIAL IVPUSH SCH ×2 (06:42→14:15)
[2020-03-23] MEDS ORDERED: LACTULOSE 20 GM/30 ML UDC (FOR ORAL USE ONLY) PO PRN (06:54)
[2020-03-23 07:41] LABS: ALBUMIN 2.6 g/dl (3.4-5.0); BILIRUBIN,DIRECT 1.1 mg/dL (0.0-0.2); BILIRUBIN,TOTAL 1.6 mg/dL (0.2-1); TOT PROT 6.7 g/dl (6.4-8.2)
[2020-03-23 07:59] LABS: BLOOD UREA NITROGEN 71.8 mg/dL (7-18); CALCIUM 8.5 mg/dL (8.5-10.1); CREATININE 4.9 mg/dL (0.55-1.3); POTASSIUM 4.5 mmol/L (3.5-5.1)
[2020-03-23 08:16] LABS: HEMATOCRIT 26.2 % (32.4-45.2); HEMOGLOBIN 8.1 GM/dL (10.7-15.3); MCH 28.3 pg (25.7-33.7); MCHC 30.8 g/dl (32.0-36.0); MEAN PLT VOLUME 8.7 fl (7.5-11.1); PLATELET COUNT 199 K/MM3 (134-434); RBC 2.84 M/mm3 (3.60-5.2); RDW 21.8 % (11.6-15.6); WHITE BLOOD COUNT 5.7 K/mm3 (4.0-10.0)
[2020-03-23 08:17] LABS: BASO % 0.9 % (0-2.0); EOS % 0.6 % (0-4.5); LYMPH % 15.4 % (8-40); NEUT % 71.1 % (42.8-82.8)
--- NOTE | 2020-03-23 08:42 | PN ---
Progress Note, Physician - Current Medication List Current Medications: Active Medications Apixaban (Eliquis -) 2.5 mg PO BID [facility] Last Admin: 03/22/20 21:59 Dose: 2.5 mg Documented by: Bupropion HCl (Wellbutrin Xl -) 300 mg PO DAILY [facility] Last Admin: 03/22/20 10:19 Dose: 300 mg Documented by: Docusate Sodium (Colace -) 100 mg PO BID PRN PRN Reason: CONSTIPATION Furosemide (Lasix Injection -) 80 mg IVPUSH BID@0600,1400 [facility] Last Admin: 03/23/20 06:42 Dose: 80 mg Documented by: Gabapentin (Neurontin -) 300 mg PO TID [facility] Last Admin: 03/23/20 06:42 Dose: 300 mg Documented by: Hydralazine HCl (Apresoline -) 50 mg PO BID [facility] Last Admin: 03/22/20 21:59 Dose: 50 mg Documented by: Lactulose (Cephulac (Oral Use)) 20 gm PO TID PRN PRN Reason: CONSTIPATION Metoprolol Tartrate (Lopressor -) 50 mg PO BID [facility] Last Admin: 03/22/20 22:01 Dose: 50 mg Documented by: Polyethylene Glycol (Miralax (For Daily Use) -) 17 gm PO DAILY [facility] Last Admin: 03/22/20 11:30 Dose: Not Given Documented by: Senna (Senna -) 2 tab PO HS [facility] Last Admin: 03/22/20 21:59 Dose: 2 tab Documented by: Sodium Zirconium Cyclosilicate (Lokelma) 10 gm PO DAILY [facility] Last Admin: 03/22/20 10:18 Dose: 10 gm Documented by: Verapamil HCl (Calan Sr -) 240 mg PO DAILY [facility] Last Admin: 03/22/20 11:29 Dose: Not Given Documented by: - Objective Vital Signs: Vital Signs Temperature 98.2 F 03/23/20 06:00 Pulse Rate 74 03/23/20 06:00 Respiratory Rate 20 03/23/20 06:00 Blood Pressure 143/71 03/23/20 06:00 O2 Sat by Pulse Oximetry (%) 94 L 03/23/20 06:00 Cardiovascular: Yes: S1, S2 Respiratory: Yes: On BiPap Gastrointestinal: Yes: Normal Bowel Sounds, Soft. No: Tenderness Labs: CBC, BMP 03/23/20 05:46 03/23/20 05:46 INR, PTT INR 1.61 (0.83-1.09) H 03/22/20 07:10 Assessment/Plan - Problems (1) Elevated LFTs Assessment/Plan: -Likeley 2/2 to congestive hepatopathy -Will get GI input -Repeat labs -Monitor trend Problems reviewed: Yes Code(s): R79.89 - OTHER SPECIFIED ABNORMAL FINDINGS OF BLOOD CHEMISTRY (2) JOSEPH (acute kidney injury) Assessment/Plan: -Nephrology consult -Hold FABIAN -monitor trend Problems reviewed: Yes Code(s): N17.9 - ACUTE KIDNEY FAILURE, UNSPECIFIED (3) CHF exacerbation Assessment/Plan: -Cardiology consult -IV furosemide 40 mg daily -Low sodium diet -daily weights -Nasal O2 to keep SpO2>90% Problems reviewed: Yes Code(s): I50.9 - HEART FAILURE, UNSPECIFIED Qualifiers: Heart failure type: unspecified Qualified Code(s): I50.9 - Heart failure, unspecified (4) Anemia Assessment/Plan: -Check Iron, thyroid, B12, and stool Ob -Transfuse only if Hg<7.0 to avoid fluid overload -Could be dilutional vs CKD vs CD Problems reviewed: Yes Code(s): D64.9 - ANEMIA, UNSPECIFIED (5) Diabetes Assessment/Plan: -Last a1c at 5.8 -Recheck A1c -BGM AC HS -Diabetic low sodium diet Problems reviewed: Yes Code(s): E11.9 - TYPE 2 DIABETES MELLITUS WITHOUT COMPLICATIONS (6) Afib Assessment/Plan: -Chronic,rate controlled -Continue Eliquis Problems reviewed: Yes Code(s): I48.91 - UNSPECIFIED ATRIAL FIBRILLATION Qualifiers: Atrial fibrillation type: unspecified Qualified Code(s): I48.91 - Unspecified atrial fibrillation (7) Lethargy Assessment/Plan: -Improved -CT head nad -ABG noted on bipap -Ammonia high--Lactulose
[2020-03-23] MEDS: APIXABAN 2.5 MG TABLET PO SCH ×2 (09:29→22:02)
[2020-03-23] MEDS: hydrALAZINE HCL 25 MG TABLET (FP) PO SCH ×2 (09:29→22:02)
[2020-03-23] MEDS: METOPROLOL TARTRATE 50 MG TABLET (FP) PO SCH ×2 (09:29→22:02)
[2020-03-23] MEDS: POLYETHYLENE GLYCOL 3350 119 GM BTL PO SCH (09:29)
[2020-03-23] MEDS: VERAPAMIL HCL 240 MG E.R. TABLET PO SCH (09:29)
--- NOTE | 2020-03-23 09:33 | PN ---
Progress Note, Physician History of Present Illness: 59 year old woman with a PMHx of HTN, DM, diastolic CHF, moderate MR, afib (on eliquis), asthma (intubated previously), prior PE, pulmonary fibrosis, sleep apnea, CKD, OA, COPD (on 2L home oxygen) presented to the ED 03/19/20 with worsening SOB and bilateral lower extremity edema. Patient has been experiencing worsening SOB and leg edema in the past several days. She has shortness of breath both with minimal exertion and at rest with associated orthopnea and leg edema. She denies chest pain, palpitation, syncope or near syncope. But she has been lethargic while in ED and during interview. OJSEPH and hyperkalemia noted. BNP is severely elevated. Liver enzymes are up. CXR 03/19/20 showed mild bilateral pulmonary congesti The patient is more alert this morning. She knows where she is. She is breathing quite comfortably. Denies chest pains and shortness of breath. No palpitations. She offerred no specific complaints this morning. - Current Medication List Current Medications: Active Medications Apixaban (Eliquis -) 2.5 mg PO BID [facility] Last Admin: 03/22/20 21:59 Dose: 2.5 mg Documented by: Bupropion HCl (Wellbutrin Xl -) 300 mg PO DAILY [facility] Last Admin: 03/22/20 10:19 Dose: 300 mg Documented by: Docusate Sodium (Colace -) 100 mg PO BID PRN PRN Reason: CONSTIPATION Furosemide (Lasix Injection -) 80 mg IVPUSH BID@0600,1400 [facility] Last Admin: 03/23/20 06:42 Dose: 80 mg Documented by: Gabapentin (Neurontin -) 300 mg PO TID [facility] Last Admin: 03/23/20 06:42 Dose: 300 mg Documented by: Hydralazine HCl (Apresoline -) 50 mg PO BID [facility] Last Admin: 03/22/20 21:59 Dose: 50 mg Documented by: Lactulose (Cephulac (Oral Use)) 20 gm PO TID PRN PRN Reason: CONSTIPATION Metoprolol Tartrate (Lopressor -) 50 mg PO BID [facility] Last Admin: 03/22/20 22:01 Dose: 50 mg Documented by: Polyethylene Glycol (Miralax (For Daily Use) -) 17 gm PO DAILY [facility] Last Admin: 03/22/20 11:30 Dose: Not Given Documented by: Senna (Senna -) 2 tab PO HS [facility] Last Admin: 03/22/20 21:59 Dose: 2 tab Documented by: Sodium Zirconium Cyclosilicate (Lokelma) 10 gm PO DAILY [facility] Last Admin: 03/22/20 10:18 Dose: 10 gm Documented by: Verapamil HCl (Calan Sr -) 240 mg PO DAILY [facility] Last Admin: 03/22/20 11:29 Dose: Not Given Documented by: - Objective Vital Signs: Vital Signs Temperature 98.2 F 03/23/20 06:00 Pulse Rate 74 03/23/20 06:00 Respiratory Rate 03/23/20 06:00 Blood Pressure 143/71 03/23/20 06:00 O2 Sat by Pulse Oximetry (%) 93 L 03/23/20 08:40 Constitutional: Yes: Well Nourished, No Distress, Calm Eyes: Yes: WNL, Conjunctiva Clear, EOM Intact HENT: Yes: WNL, Atraumatic, Normocephalic Neck: Yes: WNL, Supple, Trachea Midline Cardiovascular: Yes: Regular Rate and Rhythm, S1, S2, Other (Poor inspiratory effort, decreased breath sounds at bases, no rales/wheezes.) Respiratory: Yes: Other (Poor inspiratory effort, decreased breath sounds at bases, no rales/wheezes.) Gastrointestinal: Yes: Normal Bowel Sounds, Soft ...Rectal Exam: Yes: Deferred Edema: No Peripheral Pulses: Left Radial: 1+, Right Radial: 1+, Left Doralis Pedis: 1+, Right Dorsalis Pedis: 1+, Left Femoral: 1+, Right Femoral: 1+ Neurological: Yes: Alert Labs: CBC, BMP 03/23/20 05:46 03/23/20 05:46 INR, PTT INR 1.61 (0.83-1.09) H 03/22/20 07:10 Assessment/Plan 59 year old woman with a PMHx of HTN, DM, diastolic CHF, moderate MR, PAF (on eliquis), asthma (intubated previously), prior PE, pulmonary fibrosis, sleep apnea, CKD, OA, COPD (on 2L home oxygen) presented to the ED 03/19/20 with worsening SOB and bilateral lower extremity edema. Patient has been experiencing worsening SOB and leg edema in the past several days. She has shortness of breath both with minimal exertion and at rest with associated orthopnea and leg edema. She denies chest pain, palpitation, syncope or near syncope. But she has been lethargic while in ED and during interview. JOSEPH and hyperkalemia noted. BNP is severely elevated. Liver enzymes are up. CXR 03/19/20 showed mild bilateral pulmonary congesti The patient is more alert this morning. She knows where she is. She is breathing quite comfortably. Denies chest pains and shortness of breath. No palpitations. She offerred no specific complaints this morning. Fluid status is improved. The patient has minimal pulmonary congestion. Leg edema resolved. Renal function is not returning to baseline. Slightly worse this morning. Would hold Lasix temporarily and give it only for symptoms. The patient is maintaining sinus rhythm. Short runs of NSVT's on telemetry. Completely asymptomatic. Echocardiogram was still not performed. Cardiac stable.
[2020-03-23 09:55] LABS: ANISOCYTOSIS 2+; MACROCYTOSIS 0; PLATELET ESTIMATE NORMAL
--- NOTE | 2020-03-23 11:03 | PN ---
Progress Note, Physician History of Present Illness: Pt seen and examined at bedside. She is much more awake and alet today. She feels that her breathing is improved. - Current Medication List Current Medications: Active Medications Apixaban (Eliquis -) 2.5 mg PO BID [facility] Last Admin: 03/23/20 09:29 Dose: 2.5 mg Documented by: Bupropion HCl (Wellbutrin Xl -) 300 mg PO DAILY [facility] Last Admin: 03/23/20 09:29 Dose: 300 mg Documented by: Docusate Sodium (Colace -) 100 mg PO BID PRN PRN Reason: CONSTIPATION Furosemide (Lasix Injection -) 80 mg IVPUSH BID@0600,1400 [facility] Last Admin: 03/23/20 06:42 Dose: 80 mg Documented by: Gabapentin (Neurontin -) 300 mg PO TID [facility] Last Admin: 03/23/20 06:42 Dose: 300 mg Documented by: Hydralazine HCl (Apresoline -) 50 mg PO BID [facility] Last Admin: 03/23/20 09:29 Dose: 50 mg Documented by: Lactulose (Cephulac (Oral Use)) 20 gm PO TID PRN PRN Reason: CONSTIPATION Metoprolol Tartrate (Lopressor -) 50 mg PO BID [facility] Last Admin: 03/23/20 09:29 Dose: 50 mg Documented by: Polyethylene Glycol (Miralax (For Daily Use) -) 17 gm PO DAILY [facility] Last Admin: 03/23/20 09:29 Dose: Not Given Documented by: Senna (Senna -) 2 tab PO HS [facility] Last Admin: 03/22/20 21:59 Dose: 2 tab Documented by: Sodium Zirconium Cyclosilicate (Lokelma) 10 gm PO DAILY [facility] Last Admin: 03/22/20 10:18 Dose: 10 gm Documented by: Verapamil HCl (Calan Sr -) 240 mg PO DAILY [facility] Last Admin: 03/23/20 09:29 Dose: 240 mg Documented by: - Objective Vital Signs: Vital Signs Temperature 97.5 F L 03/23/20 10:00 Pulse Rate 82 03/23/20 10:00 Respiratory Rate 20 03/23/20 10:00 Blood Pressure 166/71 03/23/20 10:00 O2 Sat by Pulse Oximetry (%) 99 03/23/20 10:00 Constitutional: Yes: Calm Eyes: Yes: Conjunctiva Clear HENT: Yes: Atraumatic Neck: Yes: Supple Cardiovascular: Yes: S1, S2 Respiratory: Yes: On Nasal O2 Gastrointestinal: Yes: Soft Genitourinary: Yes: Montes Present Musculoskeletal: Yes: WNL Edema: Yes Edema: LLE: 3+, RLE: 3+ Neurological: Yes: Oriented Psychiatric: Yes: Oriented Labs: CBC, BMP 03/23/20 05:46 03/23/20 05:46 INR, PTT INR 1.61 (0.83-1.09) H 03/22/20 07:10 Problem List - Problems (1) Anemia Code(s): D64.9 - ANEMIA, UNSPECIFIED (2) CHF (congestive heart failure) Code(s): I50.9 - HEART FAILURE, UNSPECIFIED Qualifiers: (3) JOSEPH (acute kidney injury) Code(s): N17.9 - ACUTE KIDNEY FAILURE, UNSPECIFIED (4) Afib Code(s): I48.91 - UNSPECIFIED ATRIAL FIBRILLATION Qualifiers: Atrial fibrillation type: unspecified Qualified Code(s): I48.91 - Uns pecified atrial fibrillation (5) CHF (congestive heart failure) Code(s): I50.9 - HEART FAILURE, UNSPECIFIED Qualifiers: Heart failure type: diastolic Heart failure chronicity: unspecified Qualified Code(s): I50.30 - Unspecified diastolic (congestive) heart failure (6) CKD (chronic kidney disease) Code(s): N18.9 - CHRONIC KIDNEY DISEASE, UNSPECIFIED Assessment/Plan Current Medications Generic Name Dose Route Start Last Admin Trade Name Freq PRN Reason Stop Dose Admin Apixaban 2.5 mg 03/19/20 22:00 03/23/20 09:29 Eliquis - PO 2.5 mg BID JOLENE Administration Bupropion HCl 300 mg 03/20/20 10:00 03/23/20 09:29 Wellbutrin Xl - PO 300 mg DAILY JOLENE Administration Docusate Sodium 100 mg 03/19/20 13:38 Colace - PO BID PRN CONSTIPATION Furosemide 80 mg 03/22/20 14:00 03/23/20 06:42 Lasix Injection - IVPUSH 80 mg BID@0600,1400 JOLENE Administration Gabapentin 300 mg 03/19/20 14:00 03/23/20 06:42 Neurontin - PO 300 mg TID JOLENE Administration Hydralazine HCl 50 mg 03/19/20 22:00 03/23/20 09:29 Apresoline - PO 50 mg BID JOLENE Administration Lactulose 20 gm 03/23/20 06:54 Cephulac (Oral Use) PO TID PRN CONSTIPATION Metoprolol Tartrate 50 mg 03/19/20 22:00 03/23/20 09:29 Lopressor - PO 50 mg BID JOLENE Administration Polyethylene Glycol 17 gm 03/20/20 12:45 03/23/20 09:29 Miralax (For Daily Use) - PO Not Given DAILY JOLENE Senna 2 tab 03/20/20 22:00 03/22/20 21:59 Senna - PO 2 tab HS JOLENE Administration Sodium Zirconium Cyclosilicate 10 gm 03/21/20 15:15 03/22/20 10:18 Lokelma PO 10 gm DAILY JOLENE Administration Verapamil HCl 240 mg 03/20/20 10:00 03/23/20 09:29 Calan Sr - PO 240 mg DAILY JOLENE Administration Impression 1. CKD 2. CHF 3. a-fib 4. lower ext edema 5. COPD 6. active smoker 7. non compliance 8. dyspnea 9. hyperkalemia Plan - mental status is improved - repeat labs in am - pt did respond to higher dose of lasix (80 iv bid) - cont lasix and monitor response - edema improving (not resolved) - hold off HD as volume and mental status improved - joseph likely in part cardiorenal - cont bipap and asses mental status (pt is a retainer) - monitor urine output - she remains overloaded - monitor urine output - maintain montes - follow echo
--- NOTE | 2020-03-23 12:14 | PN ---
Progress Note (short form) - Note Progress Note: PULMONARY States breathing is better but somnolent. Vital Signs Period Temp Pulse Resp BP Sys/Salgado Pulse Ox Last 24 Hr 97.5 F-98.2 F 66-82 20-20 131-166/67-78 91-99 Gen: somnolent but arousable Heart: RRR Lung: distant breath sounds Abd: soft, nontender Ext: + edema CBC, BMP 03/23/20 05:46 03/23/20 05:46 Active Medications Apixaban (Eliquis -) 2.5 mg PO BID [facility] Last Admin: 03/23/20 09:29 Dose: 2.5 mg Documented by: Bupropion HCl (Wellbutrin Xl -) 300 mg PO DAILY [facility] Last Admin: 03/23/20 09:29 Dose: 300 mg Documented by: Docusate Sodium (Colace -) 100 mg PO BID PRN PRN Reason: CONSTIPATION Furosemide (Lasix Injection -) 80 mg IVPUSH BID@0600,1400 [facility] Last Admin: 03/23/20 06:42 Dose: 80 mg Documented by: Gabapentin (Neurontin -) 300 mg PO TID [facility] Last Admin: 03/23/20 06:42 Dose: 300 mg Documented by: Hydralazine HCl (Apresoline -) 50 mg PO BID [facility] Last Admin: 03/23/20 09:29 Dose: 50 mg Documented by: Lactulose (Cephulac (Oral Use)) 20 gm PO TID PRN PRN Reason: CONSTIPATION Metoprolol Tartrate (Lopressor -) 50 mg PO BID [facility] Last Admin: 03/23/20 09:29 Dose: 50 mg Documented by: Polyethylene Glycol (Miralax (For Daily Use) -) 17 gm PO DAILY [facility] Last Admin: 03/23/20 09:29 Dose: Not Given Documented by: Senna (Senna -) 2 tab PO HS [facility] Last Admin: 03/22/20 21:59 Dose: 2 tab Documented by: Sodium Zirconium Cyclosilicate (Lokelma) 10 gm PO DAILY [facility] Last Admin: 03/22/20 10:18 Dose: 10 gm Documented by: Verapamil HCl (Calan Sr -) 240 mg PO DAILY [facility] Last Admin: 03/23/20 09:29 Dose: 240 mg Documented by: A/P Acute on Chronic Hypoxic and Hypercapneic Respiratory Failure Acute on Chronic Diastolic Heart Failure Acute COPD Exacerbation Interstitial Lung Disease Acute on Chronic Renal Failure Atrial Fibrillation HTN DM h/o PE - continue lasix - monitor urine output, creatinine - O2 to keep Spo2 >90% - inhaled bronchodilators - start medrol - BiPAP as needed - rate control - continue anticoagulation
[2020-03-23] MEDS: SODIUM ZIRCONIUM CYCLOSILICATE (LOKELMA) 5 GM PACKET PO SCH (14:14)
[2020-03-23] MEDS: methylPREDNISolone NA SUCC 40 MG/1 ML VIAL IVPUSH SCH ×2 (14:15→17:11)
--- NOTE | 2020-03-23 18:52 | PN.GI ---
GI Progress Note Subjective: no new complaints denies abdominal pain nausea and vomiting, no SOB - Objective Vital Signs: Vital Signs Temperature 98.3 F 03/23/20 14:00 Pulse Rate 63 03/23/20 14:00 Respiratory Rate 03/23/20 14:00 Blood Pressure 126/67 03/23/20 14:00 O2 Sat by Pulse Oximetry (%) 94 L 03/23/20 15:58 Constitutional: No Distress Eyes: Yes: Conjunctiva Clear HENT: Yes: Atraumatic Cardiovascular: Yes: Regular Rate and Rhythm ...Palpate: Yes: Soft. No: Firm/Rigid, Guarding, Hepatomegaly, Mass, Pulsatile Mass, Splenomegaly Labs: CBC, BMP 03/23/20 05:46 03/23/20 05:46 INR, PTT INR 1.61 (0.83-1.09) H 03/22/20 07:10 Problem List - Problems (1) Elevated LFTs Assessment/Plan: secondary to CHF R> expect LFTS to normalize as cardiac function improves Code(s): R79.89 - OTHER SPECIFIED ABNORMAL FINDINGS OF BLOOD CHEMISTRY
[2020-03-23] MEDS: SENNOSIDES 8.6MG TABLET (FP) PO SCH (22:03)
[2020-03-24] MEDS: methylPREDNISolone NA SUCC 40 MG/1 ML VIAL IVPUSH SCH ×3 (02:24→17:04)
[2020-03-24] MEDS: FUROSEMIDE 40 MG/4 ML INJECTABLE VIAL IVPUSH SCH (05:56)
[2020-03-24] MEDS: GABAPENTIN 300 MG CAPSULE PO SCH ×3 (05:57→22:11)
[2020-03-24 06:07] LABS: ALPHA 2 MACROGLOBULINS,QN 139 mg/dL (110-276); ALT(SGPT)P5P 49 IU/L (0-40); CHOLESTEROL TOTAL 107 mg/dL (100-199); FIBROSIS SCORE 0.81 (0.00-0.21); GLUCOSE SERUM 78 mg/dL (65-99); HEIGHT 63 in (.); WEIGHT- 189 LBS (.)
[2020-03-24 08:18] LABS: BASO % 0.2 % (0-2.0); HEMATOCRIT 26.6 % (32.4-45.2); HEMOGLOBIN 8.4 GM/dL (10.7-15.3); MCH 28.9 pg (25.7-33.7); MCHC 31.6 g/dl (32.0-36.0); MEAN CELL VOLUME 91.5 fl (80-96); MEAN PLT VOLUME 9.1 fl (7.5-11.1); MONO % 0.7 % (3.8-10.2); NEUT % 87.1 % (42.8-82.8); PLATELET COUNT 178 K/MM3 (134-434); RBC 2.91 M/mm3 (3.60-5.2); RDW 20.9 % (11.6-15.6); WHITE BLOOD COUNT 2.5 K/mm3 (4.0-10.0)
[2020-03-24 08:44] LABS: ALBUMIN 2.7 g/dl (3.4-5.0); BILIRUBIN,DIRECT 1.2 mg/dL (0.0-0.2); BILIRUBIN,TOTAL 1.6 mg/dL (0.2-1)
[2020-03-24 08:48] LABS: ALBUMIN 2.7 g/dl (3.4-5.0); BILIRUBIN,TOTAL 1.7 mg/dL (0.2-1); BLOOD UREA NITROGEN 71.9 mg/dL (7-18); CALCIUM 8.9 mg/dL (8.5-10.1); CREATININE 5.1 mg/dL (0.55-1.3); POTASSIUM 4.5 mmol/L (3.5-5.1)
--- NOTE | 2020-03-24 09:49 | PN ---
Progress Note, Physician - Current Medication List Current Medications: Active Medications Apixaban (Eliquis -) 2.5 mg PO BID [facility] Last Admin: 03/23/20 22:02 Dose: 2.5 mg Documented by: Bupropion HCl (Wellbutrin Xl -) 300 mg PO DAILY [facility] Last Admin: 03/23/20 09:29 Dose: 300 mg Documented by: Docusate Sodium (Colace -) 100 mg PO BID PRN PRN Reason: CONSTIPATION Furosemide (Lasix Injection -) 80 mg IVPUSH BID@0600,1400 [facility] Last Admin: 03/24/20 05:56 Dose: 80 mg Documented by: Gabapentin (Neurontin -) 300 mg PO TID [facility] Last Admin: 03/24/20 05:57 Dose: 300 mg Documented by: Hydralazine HCl (Apresoline -) 50 mg PO BID [facility] Last Admin: 03/23/20 22:02 Dose: 50 mg Documented by: Lactulose (Cephulac (Oral Use)) 20 gm PO TID PRN PRN Reason: CONSTIPATION Methylprednisolone Sodium Succinate (Solu-Medrol -) 40 mg IVPUSH Q8H-IV [facility] Last Admin: 03/24/20 02:24 Dose: 40 mg Documented by: Metoprolol Tartrate (Lopressor -) 50 mg PO BID [facility] Last Admin: 03/23/20 22:02 Dose: 50 mg Documented by: Polyethylene Glycol (Miralax (For Daily Use) -) 17 gm PO DAILY [facility] Last Admin: 03/23/20 09:29 Dose: Not Given Documented by: Senna (Senna -) 2 tab PO HS [facility] Last Admin: 03/23/20 22:03 Dose: 2 tab Documented by: Sodium Zirconium Cyclosilicate (Lokelma) 10 gm PO DAILY [facility] Last Admin: 03/23/20 14:14 Dose: 10 gm Documented by: Verapamil HCl (Calan Sr -) 240 mg PO DAILY [facility] Last Admin: 03/23/20 09:29 Dose: 240 mg Documented by: - Objective Vital Signs: Vital Signs Temperature 97.8 F 03/24/20 06:00 Pulse Rate 63 03/24/20 06:00 Respiratory Rate 20 03/24/20 06:00 Blood Pressure 156/67 03/24/20 06:00 O2 Sat by Pulse Oximetry (%) 95 03/24/20 06:16 Cardiovascular: Yes: S1, S2 Respiratory: Yes: CTA Bilaterally, On Nasal O2 Gastrointestinal: Yes: Normal Bowel Sounds, Soft. No: Tenderness Edema: Yes Labs: CBC, BMP 03/24/20 06:18 03/24/20 06:18 INR, PTT INR 1.61 (0.83-1.09) H 03/22/20 07:10 Assessment/Plan - Problems (1) Elevated LFTs Assessment/Plan: -Likely 2/2 to congestive hepatopathy -Will get GI input -Repeat labs -Monitor trend Problems reviewed: Yes Code(s): R79.89 - OTHER SPECIFIED ABNORMAL FINDINGS OF BLOOD CHEMISTRY (2) JOSEPH (acute kidney injury) Assessment/Plan: -Nephrology consult Laboratory Tests 03/23/20 03/23/20 03/24/20 05:46 05:46 06:18 Hgb 8.1 L 8.4 L BUN 71.8 H Creatinine 4.9 H 03/24/20 06:18 Hgb BUN 71.9 H Creatinine 5.1 H -Hold FABIAN -monitor trend Problems reviewed: Yes Code(s): N17.9 - ACUTE KIDNEY FAILURE, UNSPECIFIED (3) CHF exacerbation Assessment/Plan: -Cardiology consult -IV furosemide 40 mg daily -Low sodium diet -daily weights -Nasal O2 to keep SpO2>90% Problems reviewed: Yes Code(s): I50.9 - HEART FAILURE, UNSPECIFIED Qualifiers: Heart failure type: unspecified Qualified Code(s): I50.9 - Heart failure, unspecified (4) Anemia Assessment/Plan: -Check Iron, thyroid, B12, and stool Ob Laboratory Tests 03/23/20 03/23/20 03/24/20 05:46 05:46 06:18 Hgb 8.1 L 8.4 L BUN 71.8 H Creatinine 4.9 H 03/24/20 06:18 Hgb BUN 71.9 H Creatinine 5.1 H -Transfuse only if Hg<7.0 to avoid fluid overload -Could be dilutional vs CKD vs CD Problems reviewed: Yes Code(s): D64.9 - ANEMIA, UNSPECIFIED (5) Diabetes Assessment/Plan: -Last a1c at 5.8 -Recheck A1c -BGM AC HS -Diabetic low sodium diet Problems reviewed: Yes Code(s): E11.9 - TYPE 2 DIABETES MELLITUS WITHOUT COMPLICATIONS (6) Afib Assessment/Plan: -Chronic,rate controlled -Continue Eliquis Problems reviewed: Yes Code(s): I48.91 - UNSPECIFIED ATRIAL FIBRILLATION Qualifiers: Atrial fibrillation type: unspecified Qualified Code(s): I48.91 - Unspecified atrial fibrillation (7) Lethargy Assessment/Plan: -Improved -CT head nad -ABG noted on bipap -Ammonia high--Lactulose
--- NOTE | 2020-03-24 09:53 | PN ---
Progress Note, Physician History of Present Illness: 59 year old woman with a PMHx of HTN, DM, diastolic CHF, moderate MR, PAF (on eliquis), asthma (intubated previously), prior PE, pulmonary fibrosis, sleep apnea, CKD, OA, COPD (on 2L home oxygen) presented to the ED 03/19/20 with worsening SOB and bilateral lower extremity edema. Patient has been experiencing worsening SOB and leg edema in the past several days. She has shortness of breath both with minimal exertion and at rest with associated orthopnea and leg edema. She denies chest pain, palpitation, syncope or near syncope. But she has been lethargic while in ED and during interview. JOSEPH and hyperkalemia noted. BNP is severely elevated. Liver enzymes are up. CXR 03/19/20 showed mild bilateral pulmonary congestion The patient's mental status is improved. She is alert in good spirits. Denied chest pains and shortness of breath. No palpitations. Complaining of bilateral lower extremity pains. - Current Medication List Current Medications: Active Medications Apixaban (Eliquis -) 2.5 mg PO BID [facility] Last Admin: 03/23/20 22:02 Dose: 2.5 mg Documented by: Bupropion HCl (Wellbutrin Xl -) 300 mg PO DAILY [facility] Last Admin: 03/23/20 09:29 Dose: 300 mg Documented by: Docusate Sodium (Colace -) 100 mg PO BID PRN PRN Reason: CONSTIPATION Furosemide (Lasix Injection -) 80 mg IVPUSH BID@0600,1400 [facility] Last Admin: 03/24/20 05:56 Dose: 80 mg Documented by: Gabapentin (Neurontin -) 300 mg PO TID [facility] Last Admin: 03/24/20 05:57 Dose: 300 mg Documented by: Hydralazine HCl (Apresoline -) 50 mg PO BID [facility] Last Admin: 03/23/20 22:02 Dose: 50 mg Documented by: Lactulose (Cephulac (Oral Use)) 20 gm PO TID PRN PRN Reason: CONSTIPATION Methylprednisolone Sodium Succinate (Solu-Medrol -) 40 mg IVPUSH Q8H-IV [facility] Last Admin: 03/24/20 02:24 Dose: 40 mg Documented by: Metoprolol Tartrate (Lopressor -) 50 mg PO BID [facility] Last Admin: 03/23/20 22:02 Dose: 50 mg Documented by: Polyethylene Glycol (Miralax (For Daily Use) -) 17 gm PO DAILY [facility] Last Admin: 03/23/20 09:29 Dose: Not Given Documented by: Senna (Senna -) 2 tab PO HS [facility] Last Admin: 03/23/20 22:03 Dose: 2 tab Documented by: Sodium Zirconium Cyclosilicate (Lokelma) 10 gm PO DAILY [facility] Last Admin: 03/23/20 14:14 Dose: 10 gm Documented by: Verapamil HCl (Calan Sr -) 240 mg PO DAILY [facility] Last Admin: 03/23/20 09:29 Dose: 240 mg Documented by: - Objective Vital Signs: Vital Signs Temperature 97.8 F 03/24/20 06:00 Pulse Rate 63 03/24/20 06:00 Respiratory Rate 20 03/24/20 06:00 Blood Pressure 156/67 03/24/20 06:00 O2 Sat by Pulse Oximetry (%) 95 03/24/20 06:16 Constitutional: Yes: Well Nourished, No Distress, Calm Eyes: Yes: WNL, Conjunctiva Clear, EOM Intact HENT: Yes: WNL, Atraumatic, Normocephalic Neck: Yes: WNL, Supple, Trachea Midline Cardiovascular: Yes: Regular Rate and Rhythm, S1, S2 Respiratory: Yes: Regular, CTA Bilaterally Gastrointestinal: Yes: Normal Bowel Sounds, Soft ...Rectal Exam: Yes: Deferred Musculoskeletal: Yes: Other (Bilateral lower extremity pains) Extremities: Yes: Other (Chronic venous stasis) Edema: LLE: Trace, RLE: Trace Peripheral Pulses: Left Radial: 1+, Right Radial: 1+, Left Doralis Pedis: 1+, Right Dorsalis Pedis: 1+, Left Femoral: 1+, Right Femoral: 1+ Neurological: Yes: Alert, Oriented Psychiatric: Yes: Alert, Oriented Labs: CBC, BMP 03/24/20 06:18 03/24/20 06:18 INR, PTT INR 1.61 (0.83-1.09) H 03/22/20 07:10 Assessment/Plan 59 year old woman with a PMHx of HTN, DM, diastolic CHF, moderate MR, PAF (on eliquis), asthma (intubated previously), prior PE, pulmonary fibrosis, sleep apnea, CKD, OA, COPD (on 2L home oxygen) presented to the ED 03/19/20 with worsening SOB and bilateral lower extremity edema. Patient has been experiencing worsening SOB and leg edema in the past several days. She has shortness of breath both with minimal exertion and at rest with associated orthopnea and leg edema. She denies chest pain, palpitation, syncope or near syncope. But she has been lethargic while in ED and during interview. JOSEPH and hyperkalemia noted. BNP is severely elevated. Liver enzymes are up. CXR 03/19/20 showed mild bilateral pulmonary congestion Creatinine continues to climb. There is good urine output. No significant pulmonary congestion. Chronic venous stasis, leg pains, trace edema. Please address lower extremity pains. The patient was taking painkillers at home. Consider lower extremity Dopplers to rule out DVTs. The patient is intravascularly depleted With low albumin. Consider CVVH for fluid removal. Echocardiogram was not performed. Maintaining sinus rhythm. Hemodynamically stable. No need for further cardiac work-up at this point. Please do not hesitate to call us PRN.
[2020-03-24] MEDS: VERAPAMIL HCL 240 MG E.R. TABLET PO SCH (10:23)
[2020-03-24] MEDS: hydrALAZINE HCL 25 MG TABLET (FP) PO SCH ×2 (10:23→22:11)
[2020-03-24] MEDS: APIXABAN 2.5 MG TABLET PO SCH ×2 (10:23→22:11)
[2020-03-24] MEDS: METOPROLOL TARTRATE 50 MG TABLET (FP) PO SCH ×2 (10:23→22:11)
[2020-03-24] MEDS: SODIUM ZIRCONIUM CYCLOSILICATE (LOKELMA) 5 GM PACKET PO SCH (10:24)
[2020-03-24] MEDS: POLYETHYLENE GLYCOL 3350 119 GM BTL PO SCH (10:24)
--- NOTE | 2020-03-24 10:31 | PN ---
Progress Note, Physician History of Present Illness: pulmonary alert,comfortable,on nasal o2.-resp distress - Current Medication List Current Medications: Active Medications Apixaban (Eliquis -) 2.5 mg PO BID [facility] Last Admin: 03/24/20 10:23 Dose: 2.5 mg Documented by: Bupropion HCl (Wellbutrin Xl -) 300 mg PO DAILY [facility] Last Admin: 03/24/20 10:23 Dose: 300 mg Documented by: Docusate Sodium (Colace -) 100 mg PO BID PRN PRN Reason: CONSTIPATION Furosemide (Lasix Injection -) 80 mg IVPUSH BID@0600,1400 [facility] Last Admin: 03/24/20 05:56 Dose: 80 mg Documented by: Gabapentin (Neurontin -) 300 mg PO TID [facility] Last Admin: 03/24/20 05:57 Dose: 300 mg Documented by: Hydralazine HCl (Apresoline -) 50 mg PO BID [facility] Last Admin: 03/24/20 10:23 Dose: 50 mg Documented by: Lactulose (Cephulac (Oral Use)) 20 gm PO TID PRN PRN Reason: CONSTIPATION Methylprednisolone Sodium Succinate (Solu-Medrol -) 40 mg IVPUSH Q8H-IV [facility] Last Admin: 03/24/20 10:16 Dose: 40 mg Documented by: Metoprolol Tartrate (Lopressor -) 50 mg PO BID [facility] Last Admin: 03/24/20 10:23 Dose: 50 mg Documented by: Polyethylene Glycol (Miralax (For Daily Use) -) 17 gm PO DAILY [facility] Last Admin: 03/24/20 10:24 Dose: 17 gm Documented by: Senna (Senna -) 2 tab PO HS [facility] Last Admin: 03/23/20 22:03 Dose: 2 tab Documented by: Sodium Zirconium Cyclosilicate (Lokelma) 10 gm PO DAILY [facility] Last Admin: 03/24/20 10:24 Dose: 10 gm Documented by: Verapamil HCl (Calan Sr -) 240 mg PO DAILY [facility] Last Admin: 03/24/20 10:23 Dose: 240 mg Documented by: - Objective Vital Signs: Vital Signs Temperature 97.8 F 03/24/20 06:00 Pulse Rate 63 03/24/20 06:00 Respiratory Rate 20 03/24/20 06:00 Blood Pressure 156/67 03/24/20 06:00 O2 Sat by Pulse Oximetry (%) 95 03/24/20 06:16 Constitutional: Yes: Well Nourished, Calm Eyes: Yes: WNL HENT: Yes: WNL Neck: Yes: WNL Cardiovascular: Yes: Pulse Irregular, S1, S2 Respiratory: Yes: Rales (bibasailr rales) Gastrointestinal: Yes: Normal Bowel Sounds, Soft Extremities: Yes: WNL Edema: Yes Labs: CBC, BMP 03/24/20 06:18 03/24/20 06:18 INR, PTT INR 1.61 (0.83-1.09) H 03/22/20 07:10 Problem List - Problems (1) Acute on chronic respiratory failure with hypoxia and hypercapnia Code(s): J96.21 - ACUTE AND CHRONIC RESPIRATORY FAILURE WITH HYPOXIA; J96.22 - ACUTE AND CHRONIC RESPIRATORY FAILURE WITH HYPERCAPNIA (2) Anemia Code(s): D64.9 - ANEMIA, UNSPECIFIED (3) CHF (congestive heart failure) Code(s): I50.9 - HEART FAILURE, UNSPECIFIED Qualifiers: (4) Elevated LFTs Code(s): R79.89 - OTHER SPECIFIED ABNORMAL FINDINGS OF BLOOD CHEMISTRY (5) Acute kidney injury superimposed on CKD Code(s): N17.9 - ACUTE KIDNEY FAILURE, UNSPECIFIED; N18.9 - CHRONIC KIDNEY DISEASE, UNSPECIFIED (6) Acute on chronic diastolic (congestive) heart failure Code(s): I50.33 - ACUTE ON CHRONIC DIASTOLIC (CONGESTIVE) HEART FAILURE (7) Acute respiratory failure Code(s): J96.00 - ACUTE RESPIRATORY FAILURE, UNSP W HYPOXIA OR HYPERCAPNIA (8) Afib Code(s): I48.91 - UNSPECIFIED ATRIAL FIBRILLATION Qualifiers: Atrial fibrillation type: unspecified Qualified Code(s): I48.91 - Unspecified atrial fibrillation (9) Atrial fibrillation Code(s): I48.91 - UNSPECIFIED ATRIAL FIBRILLATION (10) HTN (hypertension) Code(s): I10 - ESSENTIAL (PRIMARY) HYPERTENSION (11) Leg edema Code(s): R60.0 - LOCALIZED EDEMA (12) Respiratory acidosis Code(s): E87.2 - ACIDOSIS (13) Cigarette nicotine dependence Code(s): F17.200 - NICOTINE DEPENDENCE, UNSPECIFIED, UNCOMPLICATED Assessment/Plan IMP ACUTE ON CHRONIC HYPOXEMIC/HYPERCAPNEIC RESPIRATORY FAILURE IMPROVING ACUTE ON CHRONIC CHF IMPROVING COPD O2 DEPENDENT H/O RESPIRATORY FAILURE REQUIRING VENT SUPPORT 10/28 ILD ACUTE ON CHRONIC KIDNEY DISEASE H/O PE AFIB TANISHA DM HTM ELEVATED LFTS IMPROVED PLAN SUPPLEMENTAL O2 TO MAINTAIN O2 SAT 90% BIPAP NEEDED LASIX MEDROL INHALE BRONCHODILATORS AC MONITOR LYTES,RENAL FUNCTION F/U CHEST X-RAYS DR ROLLE Problem List - Problems (1) Acute on chronic respiratory failure with hypoxia and hypercapnia Code(s): J96.21 - ACUTE AND CHRONIC RESPIRATORY FAILURE WITH HYPOXIA; J96.22 - ACUTE AND CHRONIC RESPIRATORY FAILURE WITH HYPERCAPNIA (2) Anemia Code(s): D64.9 - ANEMIA, UNSPECIFIED (3) CHF (congestive heart failure) Code(s): I50.9 - HEART FAILURE, UNSPECIFIED Qualifiers: (4) Elevated LFTs Code(s): R79.89 - OTHER SPECIFIED ABNORMAL FINDINGS OF BLOOD CHEMISTRY (5) Acute kidney injury superimposed on CKD Code(s): N17.9 - ACUTE KIDNEY FAILURE, UNSPECIFIED; N18.9 - CHRONIC KIDNEY DISEASE, UNSPECIFIED (6) Acute on chronic diastolic (congestive) heart failure Code(s): I50.33 - ACUTE ON CHRONIC DIASTOLIC (CONGESTIVE) HEART FAILURE (7) Acute respiratory failure Code(s): J96.00 - ACUTE RESPIRATORY FAILURE, UNSP W HYPOXIA OR HYPERCAPNIA (8) Afib Code(s): I48.91 - UNSPECIFIED ATRIAL FIBRILLATION Qualifiers: Atrial fibrillation type: unspecified Qualified Code(s): I48.91 - Unspecified atrial fibrillation (9) Atrial fibrillation Code(s): I48.91 - UNSPECIFIED ATRIAL FIBRILLATION (10) HTN (hypertension) Code(s): I10 - ESSENTIAL (PRIMARY) HYPERTENSION (11) Leg edema Code(s): R60.0 - LOCALIZED EDEMA (12) Respiratory acidosis Code(s): E87.2 - ACIDOSIS (13) Cigarette nicotine dependence Code(s): F17.200 - NICOTINE DEPENDENCE, UNSPECIFIED, UNCOMPLICATED
--- NOTE | 2020-03-24 13:20 | PN ---
Progress Note, Physician History of Present Illness: Pt seen and examined at bedside. She is more awake and alert. She denies shortness of breath. We discussed HD therapy and she wants to holds off. - Current Medication List Current Medications: Active Medications Apixaban (Eliquis -) 2.5 mg PO BID [facility] Last Admin: 03/24/20 10:23 Dose: 2.5 mg Documented by: Bupropion HCl (Wellbutrin Xl -) 300 mg PO DAILY [facility] Last Admin: 03/24/20 10:23 Dose: 300 mg Documented by: Docusate Sodium (Colace -) 100 mg PO BID PRN PRN Reason: CONSTIPATION Gabapentin (Neurontin -) 300 mg PO TID [facility] Last Admin: 03/24/20 05:57 Dose: 300 mg Documented by: Hydralazine HCl (Apresoline -) 50 mg PO BID [facility] Last Admin: 03/24/20 10:23 Dose: 50 mg Documented by: Lactulose (Cephulac (Oral Use)) 20 gm PO TID PRN PRN Reason: CONSTIPATION Methylprednisolone Sodium Succinate (Solu-Medrol -) 40 mg IVPUSH Q8H-IV [facility] Last Admin: 03/24/20 10:16 Dose: 40 mg Documented by: Metoprolol Tartrate (Lopressor -) 50 mg PO BID [facility] Last Admin: 03/24/20 10:23 Dose: 50 mg Documented by: Polyethylene Glycol (Miralax (For Daily Use) -) 17 gm PO DAILY [facility] Last Admin: 03/24/20 10:24 Dose: 17 gm Documented by: Senna (Senna -) 2 tab PO HS [facility] Last Admin: 03/23/20 22:03 Dose: 2 tab Documented by: Sodium Zirconium Cyclosilicate (Lokelma) 10 gm PO DAILY [facility] Last Admin: 03/24/20 10:24 Dose: 10 gm Documented by: Verapamil HCl (Calan Sr -) 240 mg PO DAILY [facility] Last Admin: 03/24/20 10:23 Dose: 240 mg Documented by: - Objective Vital Signs: Vital Signs Temperature 97.8 F 03/24/20 10:00 Pulse Rate 69 03/24/20 10:00 Respiratory Rate 20 03/24/20 10:00 Blood Pressure 123/92 03/24/20 10:00 O2 Sat by Pulse Oximetry (%) 97 03/24/20 09:00 Constitutional: Yes: Calm Eyes: Yes: Conjunctiva Clear HENT: Yes: Atraumatic Neck: Yes: Supple Cardiovascular: Yes: S1, S2 Respiratory: Yes: On Nasal O2 Gastrointestinal: Yes: Normal Bowel Sounds, Soft Genitourinary: Yes: Montes Present Edema: Yes Edema: LLE: 1+, RLE: 1+ Integumentary: Yes: Venous Stasis Changes Neurological: Yes: Oriented Labs: CBC, BMP 03/24/20 06:18 03/24/20 06:18 INR, PTT INR 1.61 (0.83-1.09) H 03/22/20 07:10 Problem List - Problems (1) Anemia Code(s): D64.9 - ANEMIA, UNSPECIFIED (2) CHF (congestive heart failure) Code(s): I50.9 - HEART FAILURE, UNSPECIFIED Qualifiers: (3) JOSEPH (acute kidney injury) Code(s): N17.9 - ACUTE KIDNEY FAILURE, UNSPECIFIED (4) Afib Code(s): I48.91 - UNSPECIFIED ATRIAL FIBRILLATION Qualifiers: Qualified Code(s): I48.91 - Unspecified atrial fibrillation (5) CHF (congestive heart failure) Code(s): I50.9 - HEART FAILURE, UNSPECIFIED Qualifiers: Qualified Code(s): I50.30 - Unspecified diastolic (congestive) heart failure (6) CKD (chronic kidney disease) Code(s): N18.9 - CHRONIC KIDNEY DISEASE, UNSPECIFIED Assessment/Plan Current Medications Generic Name Dose Route Start Last Admin Trade Name Freq PRN Reason Stop Dose Admin Apixaban 2.5 mg 03/19/20 22:00 03/24/20 10:23 Eliquis - PO 2.5 mg BID JOLENE Administration Bupropion HCl 300 mg 03/20/20 10:00 03/24/20 10:23 Wellbutrin Xl - PO 300 mg DAILY JOLENE Administration Docusate Sodium 100 mg 03/19/20 13:38 Colace - PO BID PRN CONSTIPATION Furosemide 40 mg 03/25/20 10:00 Lasix Injection - IVPUSH DAILY JOLENE Gabapentin 300 mg 03/19/20 14:00 03/24/20 05:57 Neurontin - PO 300 mg TID JOLENE Administration Hydralazine HCl 50 mg 03/19/20 22:00 03/24/20 10:23 Apresoline - PO 50 mg BID JOLENE Administration Lactulose 20 gm 03/23/20 06:54 Cephulac (Oral Use) PO TID PRN CONSTIPATION Methylprednisolone Sodium Succinate 40 mg 03/23/20 12:15 03/24/20 10:16 Solu-Medrol - IVPUSH 40 mg Q8H-IV JOLENE Administration Metoprolol Tartrate 50 mg 03/19/20 22:00 03/24/20 10:23 Lopressor - PO 50 mg BID JOLENE Administration Polyethylene Glycol 17 gm 03/20/20 12:45 03/24/20 10:24 Miralax (For Daily Use) - PO 17 gm DAILY JOLENE Administration Senna 2 tab 03/20/20 22:00 03/23/20 22:03 Senna - PO 2 tab HS JOLENE Administration Sodium Zirconium Cyclosilicate 10 gm 03/21/20 15:15 03/24/20 10:24 Lokelma PO 10 gm DAILY JOLENE Administration Verapamil HCl 240 mg 03/20/20 10:00 03/24/20 10:23 Calan Sr - PO 240 mg DAILY JOLENE Administration Impression 1. CKD 2. CHF 3. a-fib 4. lower ext edema 5. COPD 6. active smoker 7. non compliance 8. dyspnea 9. hyperkalemia Plan - will reduce lasix dose - cont to monitor renal function - discussed dialysis options with pt, she wants to speak to her family and sister first. No urgent indication. - cont to monitor volume status and renal function - pt did get 80 mg of lasix this morning - her volume status is improving however renal function worsening - maintain montes - follow echo - steroids will contribute to elevated bun
--- NOTE | 2020-03-24 16:05 | ECHO ---
Version: 1 Name: SEVERINO CABRAL Exam: Adult Echocardiogram Study Date: 03/24/2020, 3:14 PM Age: 59 Years MMode/2D Measurements & Calculations IVSd: 1.37 cm LVIDs: 3.1 cm LVIDd: 4.5 cm LVPWd: 1.16 cm LAV (MOD-bp): 98.9 ml ACS: 1.91 cm Ao root diam: 2.8 cm LVOT diam: 1.81 cm LA dimension: 4.8 cm Doppler Measurements & Calculations MV E max rai: 92.2 cm/sec MV A max rai: 45.1 cm/sec MV E/A: 2.04 Lat E/e': 11.3 Lat Peak E' Rai: 8.2 cm/sec MR max P.0 mmHg Ao max P.2 mmHg VERONICA(I,D): 1.65 cm Ao mean P.2 mmHg LV V1 mean: 74.3 cm/sec Ao V2 max: 224.4 cm/sec LV V1 mean P.7 mmHg AI P1/2t: 524.7 msec PI end-d rai: 103.2 cm/sec TR max rai: 222.5 cm/sec TR max P.8 mmHg Left Ventricle There is moderate concentric left ventricular hypertrophy. Left ventricular systolic function is nor mal. Ejection Fraction = 55-60%. The transmitral spectral Doppler flow pattern is suggestive of pseudonormalization. In certain views, the LV trabeculation appears suspicious for ventricular nonco mpaction. Suggest outpatient cardiac MRI. Right Ventricle The right ventricle is mildly dilated. The right ventricular systolic function is grossly normal. Atria The left atrium is moderately dilated. The right atrium is mildly dilated. Mitral Valve The mitral valve is grossly normal. There is no mitral valve stenosis. There is mild mitral regurgit ation. Tricuspid Valve The tricuspid valve is normal in structure and function. There is moderate to severe tricuspid regur gitation. Right ventricular systolic pressure is normal. Aortic Valve Mild valvular aortic stenosis. Mild aortic regurgitation. Pulmonic Valve The pulmonic valve is not well seen, but is grossly normal. There is no pulmonic valvular stenosis. Trace to mild pulmonic valvular regurgitation. Great Vessels The aortic root is normal size. Pericardium/Pleura There is no pericardial effusion. Summary Statements There is moderate concentric left ventricular hypertrophy. Left ventricular systolic function is normal. Ejection Fraction = 55-60%. In certain views, the LV trabeculation appears suspicious for ventricular noncompaction. Suggest out patient cardiac MRI. The right ventricle is mildly dilated. The right ventricular systolic function is grossly normal. The left atrium is moderately dilated. The right atrium is mildly dilated. There is mild mitral regurgitation. There is moderate to severe tricuspid regurgitation. Mild valvular aortic stenosis. Mild aortic regurgitation. There is no pericardial effusion. MD Conn *Coco 03/24/2020, 4:05 PM Ordering Physician: Naya Akhtar Referring Physician: IBRAHIMA Performed By: Sandra Mason
[2020-03-24 22:06] LABS: HEP B CORE AB, TOT Negative (Negative)
[2020-03-24] MEDS: SENNOSIDES 8.6MG TABLET (FP) PO SCH (22:11)
[2020-03-25] MEDS: methylPREDNISolone NA SUCC 40 MG/1 ML VIAL IVPUSH SCH ×3 (03:00→21:23)
[2020-03-25] MEDS: GABAPENTIN 300 MG CAPSULE PO SCH ×3 (06:24→21:23)
[2020-03-25 06:58] LABS: BASO % 0.3 % (0-2.0); HEMATOCRIT 28.3 % (32.4-45.2); HEMOGLOBIN 8.6 GM/dL (10.7-15.3); LYMPH % 9.3 % (8-40); MCH 28.2 pg (25.7-33.7); MCHC 30.4 g/dl (32.0-36.0); MEAN CELL VOLUME 92.8 fl (80-96); MEAN PLT VOLUME 8.7 fl (7.5-11.1); NEUT % 85.4 % (42.8-82.8); PLATELET COUNT 153 K/MM3 (134-434); RBC 3.05 M/mm3 (3.60-5.2); RDW 21.2 % (11.6-15.6); WHITE BLOOD COUNT 3.8 K/mm3 (4.0-10.0)
[2020-03-25 07:25] LABS: ALBUMIN 2.9 g/dl (3.4-5.0); BILIRUBIN,TOTAL 1.4 mg/dL (0.2-1); BLOOD UREA NITROGEN 82.6 mg/dL (7-18); CALCIUM 8.3 mg/dL (8.5-10.1); CREATININE 5.5 mg/dL (0.55-1.3); POTASSIUM 4.3 mmol/L (3.5-5.1); TOT PROT 7.1 g/dl (6.4-8.2)
[2020-03-25] MEDS: FUROSEMIDE 40 MG/4 ML INJECTABLE VIAL IVPUSH SCH (09:39)
[2020-03-25] MEDS: METOPROLOL TARTRATE 50 MG TABLET (FP) PO SCH ×2 (09:40→21:23)
[2020-03-25] MEDS: APIXABAN 2.5 MG TABLET PO SCH ×2 (09:40→21:23)
[2020-03-25] MEDS: hydrALAZINE HCL 25 MG TABLET (FP) PO SCH ×2 (09:40→21:23)
[2020-03-25] MEDS: VERAPAMIL HCL 240 MG E.R. TABLET PO SCH (09:40)
[2020-03-25] MEDS: SODIUM ZIRCONIUM CYCLOSILICATE (LOKELMA) 5 GM PACKET PO SCH (09:40)
[2020-03-25] MEDS ORDERED: FUROSEMIDE 40 MG/4 ML INJECTABLE VIAL IVPUSH SCH ×2 (10:00)
--- NOTE | 2020-03-25 10:20 | PN ---
Progress Note, Physician - Current Medication List Current Medications: Active Medications Apixaban (Eliquis -) 2.5 mg PO BID [facility] Last Admin: 03/25/20 09:40 Dose: 2.5 mg Documented by: Bupropion HCl (Wellbutrin Xl -) 300 mg PO DAILY [facility] Last Admin: 03/25/20 09:40 Dose: 300 mg Documented by: Docusate Sodium (Colace -) 100 mg PO BID PRN PRN Reason: CONSTIPATION Furosemide (Lasix Injection -) 40 mg IVPUSH DAILY [facility] Last Admin: 03/25/20 09:39 Dose: 40 mg Documented by: Gabapentin (Neurontin -) 300 mg PO TID [facility] Last Admin: 03/25/20 06:24 Dose: 300 mg Documented by: Hydralazine HCl (Apresoline -) 50 mg PO BID [facility] Last Admin: 03/25/20 09:40 Dose: 50 mg Documented by: Lactulose (Cephulac (Oral Use)) 20 gm PO TID PRN PRN Reason: CONSTIPATION Methylprednisolone Sodium Succinate (Solu-Medrol -) 40 mg IVPUSH Q8H-IV [facility] Last Admin: 03/25/20 09:39 Dose: 40 mg Documented by: Metoprolol Tartrate (Lopressor -) 50 mg PO BID [facility] Last Admin: 03/25/20 09:40 Dose: 50 mg Documented by: Polyethylene Glycol (Miralax (For Daily Use) -) 17 gm PO DAILY [facility] Last Admin: 03/24/20 10:24 Dose: 17 gm Documented by: Senna (Senna -) 2 tab PO HS [facility] Last Admin: 03/24/20 22:11 Dose: 2 tab Documented by: Sodium Zirconium Cyclosilicate (Lokelma) 10 gm PO DAILY [facility] Last Admin: 03/25/20 09:40 Dose: 10 gm Documented by: Verapamil HCl (Calan Sr -) 240 mg PO DAILY [facility] Last Admin: 03/25/20 09:40 Dose: 240 mg Documented by: - Objective Vital Signs: Vital Signs Temperature 97.7 F 03/25/20 09:22 Pulse Rate 65 03/25/20 09:22 Respiratory Rate 22 H 03/25/20 09:22 Blood Pressure 155/76 03/25/20 09:22 O2 Sat by Pulse Oximetry (%) 98 03/25/20 09:27 Cardiovascular: Yes: S1, S2 Respiratory: Yes: Regular, CTA Bilaterally Gastrointestinal: Yes: Normal Bowel Sounds, Soft Labs: CBC, BMP 03/25/20 05:48 03/25/20 05:48 INR, PTT INR 1.61 (0.83-1.09) H 03/22/20 07:10 Assessment/Plan - Problems (1) Elevated LFTs Assessment/Plan: -Likely 2/2 to congestive hepatopathy -Will get GI input -Repeat labs -Monitor trend Problems reviewed: Yes Code(s): R79.89 - OTHER SPECIFIED ABNORMAL FINDINGS OF BLOOD CHEMISTRY (2) JOSEPH (acute kidney injury) Assessment/Plan: -Nephrology consult Laboratory Tests 03/23/20 03/23/20 03/24/20 05:46 05:46 06:18 Hgb 8.1 L 8.4 L BUN 71.8 H Creatinine 4.9 H 03/24/20 06:18 Hgb BUN 71.9 H Creatinine 5.1 H -Hold FABIAN -monitor trend Problems reviewed: Yes Code(s): N17.9 - ACUTE KIDNEY FAILURE, UNSPECIFIED (3) CHF exacerbation Assessment/Plan: -Cardiology consult -IV furosemide 40 mg daily -Low sodium diet -daily weights -Nasal O2 to keep SpO2>90% Problems reviewed: Yes Code(s): I50.9 - HEART FAILURE, UNSPECIFIED Qualifiers: Heart failure type: unspecified Qualified Code(s): I50.9 - Heart failure, unspecified (4) Anemia Assessment/Plan: -Check Iron, thyroid, B12, and stool Ob Laboratory Tests 03/23/20 03/23/20 03/24/20 05:46 05:46 06:18 Hgb 8.1 L 8.4 L BUN 71.8 H Creatinine 4.9 H 03/24/20 06:18 Hgb BUN 71.9 H Creatinine 5.1 H -Transfuse only if Hg<7.0 to avoid fluid overload -Could be dilutional vs CKD vs CD Problems reviewed: Yes Code(s): D64.9 - ANEMIA, UNSPECIFIED (5) Diabetes Assessment/Plan: -Last a1c at 5.8 -Recheck A1c -BGM AC HS -Diabetic low sodium diet Problems reviewed: Yes Code(s): E11.9 - TYPE 2 DIABETES MELLITUS WITHOUT COMPLICATIONS (6) Afib Assessment/Plan: -Chronic,rate controlled -Continue Eliquis Problems reviewed: Yes Code(s): I48.91 - UNSPECIFIED ATRIAL FIBRILLATION Qualifiers: Atrial fibrillation type: unspecified Qualified Code(s): I48.91 - Unspecified atrial fibrillation (7) Lethargy Assessment/Plan: -Improved -CT head nad -ABG noted on bipap -Ammonia high--Lactulose
--- NOTE | 2020-03-25 14:21 | PN ---
Progress Note (short form) - Note Progress Note: 1. CKD 2. CHF 3. a-fib 4. lower ext edema 5. COPD 6. active smoker 7. non compliance 8. dyspnea 9. hyperkalemia Active Medications Apixaban (Eliquis -) 2.5 mg PO BID [facility] Last Admin: 03/25/20 09:40 Dose: 2.5 mg Documented by: Bupropion HCl (Wellbutrin Xl -) 300 mg PO DAILY [facility] Last Admin: 03/25/20 09:40 Dose: 300 mg Documented by: Docusate Sodium (Colace -) 100 mg PO BID PRN PRN Reason: CONSTIPATION Furosemide (Lasix Injection -) 40 mg IVPUSH DAILY [facility] Last Admin: 03/25/20 09:39 Dose: 40 mg Documented by: Gabapentin (Neurontin -) 300 mg PO TID [facility] Last Admin: 03/25/20 06:24 Dose: 300 mg Documented by: Hydralazine HCl (Apresoline -) 50 mg PO BID [facility] Last Admin: 03/25/20 09:40 Dose: 50 mg Documented by: Lactulose (Cephulac (Oral Use)) 20 gm PO TID PRN PRN Reason: CONSTIPATION Methylprednisolone Sodium Succinate (Solu-Medrol -) 40 mg IVPUSH Q8H-IV [facility] Last Admin: 03/25/20 09:39 Dose: 40 mg Documented by: Metoprolol Tartrate (Lopressor -) 50 mg PO BID [facility] Last Admin: 03/25/20 09:40 Dose: 50 mg Documented by: Polyethylene Glycol (Miralax (For Daily Use) -) 17 gm PO DAILY [facility] Last Admin: 03/24/20 10:24 Dose: 17 gm Documented by: Senna (Senna -) 2 tab PO HS [facility] Last Admin: 03/24/20 22:11 Dose: 2 tab Documented by: Sodium Zirconium Cyclosilicate (Lokelma) 10 gm PO DAILY [facility] Last Admin: 03/25/20 09:40 Dose: 10 gm Documented by: Verapamil HCl (Calan Sr -) 240 mg PO DAILY [facility] Last Admin: 03/25/20 09:40 Dose: 240 mg Documented by: Last Vital Signs Temp Pulse Resp BP Pulse Ox 97.7 F 65 22 H 155/76 96 03/25/20 09:22 03/25/20 09:22 03/25/20 09:22 03/25/20 09:22 03/25/20 12:48 CBC, BMP 03/25/20 05:48 03/25/20 05:48 JOSEPH CKD CHF monitor labs
[2020-03-25] MEDS: POLYETHYLENE GLYCOL 3350 119 GM BTL PO SCH (14:23)
--- NOTE | 2020-03-25 15:31 | PN ---
Progress Note (short form) - Note Progress Note: Resting in NAD on NC O2. No CP or SOB. No acute events overnight. Intake & Output 03/22/20 03/23/20 03/24/20 03/25/20 23:59 23:59 23:59 23:59 Intake Total 810 380 350 Output Total 1100 1800 800 300 Balance -290 -1420 -450 -300 Weight 187 lb 9.6 oz 174 lb Last Vital Signs Temp Pulse Resp BP Pulse Ox 98.3 F 67 22 H 148/82 95 03/25/20 14:00 03/25/20 14:00 03/25/20 14:00 03/25/20 14:00 03/25/20 14:00 Active Medications Apixaban (Eliquis -) 2.5 mg PO BID [facility] Last Admin: 03/25/20 09:40 Dose: 2.5 mg Documented by: Bupropion HCl (Wellbutrin Xl -) 300 mg PO DAILY [facility] Last Admin: 03/25/20 09:40 Dose: 300 mg Documented by: Docusate Sodium (Colace -) 100 mg PO BID PRN PRN Reason: CONSTIPATION Furosemide (Lasix Injection -) 40 mg IVPUSH DAILY [facility] Last Admin: 03/25/20 09:39 Dose: 40 mg Documented by: Gabapentin (Neurontin -) 300 mg PO TID [facility] Last Admin: 03/25/20 14:23 Dose: 300 mg Documented by: Hydralazine HCl (Apresoline -) 50 mg PO BID [facility] Last Admin: 03/25/20 09:40 Dose: 50 mg Documented by: Lactulose (Cephulac (Oral Use)) 20 gm PO TID PRN PRN Reason: CONSTIPATION Methylprednisolone Sodium Succinate (Solu-Medrol -) 40 mg IVPUSH Q8H-IV [facility] Last Admin: 03/25/20 09:39 Dose: 40 mg Documented by: Metoprolol Tartrate (Lopressor -) 50 mg PO BID [facility] Last Admin: 03/25/20 09:40 Dose: 50 mg Documented by: Polyethylene Glycol (Miralax (For Daily Use) -) 17 gm PO DAILY [facility] Last Admin: 03/25/20 14:23 Dose: 17 gm Documented by: Senna (Senna -) 2 tab PO HS [facility] Last Admin: 03/24/20 22:11 Dose: 2 tab Documented by: Sodium Zirconium Cyclosilicate (Lokelma) 10 gm PO DAILY [facility] Last Admin: 03/25/20 09:40 Dose: 10 gm Documented by: Verapamil HCl (Calan Sr -) 240 mg PO DAILY [facility] Last Admin: 03/25/20 09:40 Dose: 240 mg Documented by: Constitutional: Yes: NAD Eyes: Yes: WNL HENT: Yes: WNL Neck: Yes: WNL Cardiovascular: Yes: Pulse Irregular, S1, S2 Respiratory: Yes: Bibasilar rales Gastrointestinal: Yes: Normal Bowel Sounds, Soft Extremities: Yes: WNL Edema: Yes Labs: Laboratory Results - last 24 hr 03/23/20 03/25/20 03/25/20 05:46 05:48 05:48 WBC 3.8 L RBC 3.05 L Hgb 8.6 L Hct 28.3 L MCV 92.8 MCH 28.2 MCHC 30.4 L RDW 21.2 H Plt Count 153 MPV 8.7 Absolute Neuts (auto) 3.2 Neutrophils % 85.4 H Lymphocytes % 9.3 D Monocytes % 5.0 D Eosinophils % 0.0 Basophils % 0.3 Nucleated RBC % 0 Sodium 138 Potassium 4.3 Chloride 95 L Carbon Dioxide 34 H Anion Gap 9 BUN 82.6 H Creatinine 5.5 H Est GFR (CKD-EPI)AfAm 8.97 Est GFR (CKD-EPI)NonAf 7.74 Random Glucose 161 H Calcium 8.3 L Total Bilirubin 1.4 H AST 22 ALT 33 Alkaline Phosphatase 90 Total Protein 7.1 Albumin 2.9 L Hep A IgM Ab Confirm Negative Hepatitis A Ab Total Negative Hep Bs Antigen Negative Hep Bs Antibody Non reactive Hep B Core Total Ab Negative Hep B Core IgM Ab Negative Hepatitis Be Antibody Negative Hepatitis Be Antigen Negative Problem List - Problems (1) Acute on chronic respiratory failure with hypoxia and hypercapnia Code(s): J96.21 - ACUTE AND CHRONIC RESPIRATORY FAILURE WITH HYPOXIA; J96.22 - ACUTE AND CHRONIC RESPIRATORY FAILURE WITH HYPERCAPNIA (2) Anemia Code(s): D64.9 - ANEMIA, UNSPECIFIED (3) CHF (congestive heart failure) Code(s): I50.9 - HEART FAILURE, UNSPECIFIED Qualifiers: (4) Elevated LFTs Code(s): R79.89 - OTHER SPECIFIED ABNORMAL FINDINGS OF BLOOD CHEMISTRY (5) Acute kidney injury superimposed on CKD Code(s): N17.9 - ACUTE KIDNEY FAILURE, UNSPECIFIED; N18.9 - CHRONIC KIDNEY DISEASE, UNSPECIFIED (6) Acute on chronic diastolic (congestive) heart failure Code(s): I50.33 - ACUTE ON CHRONIC DIASTOLIC (CONGESTIVE) HEART FAILURE (7) Acute respiratory failure Code(s): J96.00 - ACUTE RESPIRATORY FAILURE, UNSP W HYPOXIA OR HYPERCAPNIA (8) Afib Code(s): I48.91 - UNSPECIFIED ATRIAL FIBRILLATION Qualifiers: Atrial fibrillation type: unspecified Qualified Code(s): I48.91 - Unspecified atrial fibrillation (9) Atrial fibrillation Code(s): I48.91 - UNSPECIFIED ATRIAL FIBRILLATION (10) HTN (hypertension) Code(s): I10 - ESSENTIAL (PRIMARY) HYPERTENSION (11) Leg edema Code(s): R60.0 - LOCALIZED EDEMA (12) Respiratory acidosis Code(s): E87.2 - ACIDOSIS (13) Cigarette nicotine dependence Code(s): F17.200 - NICOTINE DEPENDENCE, UNSPECIFIED, UNCOMPLICATED Assessment/Plan IMP ACUTE ON CHRONIC HYPOXEMIC/HYPERCAPNEIC RESPIRATORY FAILURE IMPROVING ACUTE ON CHRONIC CHF IMPROVING COPD O2 DEPENDENT H/O RESPIRATORY FAILURE REQUIRING VENT SUPPORT 10/28 ILD ACUTE ON CHRONIC KIDNEY DISEASE H/O PE AFIB TANISHA DM HTM ELEVATED LFTS IMPROVED PLAN SUPPLEMENTAL O2 TO MAINTAIN O2 SAT 90% NIPPV NEEDED LASIX WEAN MEDROL INHALED BRONCHODILATORS AC MONITOR LYTES,RENAL FUNCTION Dr Montiel
[2020-03-25] MEDS: SENNOSIDES 8.6MG TABLET (FP) PO SCH (21:24)
[2020-03-26] MEDS: GABAPENTIN 300 MG CAPSULE PO SCH ×3 (06:12→21:18)
[2020-03-26 07:36] LABS: BASO % 0.3 % (0-2.0); HEMATOCRIT 27.9 % (32.4-45.2); HEMOGLOBIN 8.6 GM/dL (10.7-15.3); LYMPH % 6.6 % (8-40); MCH 28.4 pg (25.7-33.7); MCHC 30.8 g/dl (32.0-36.0); MEAN CELL VOLUME 92.4 fl (80-96); MONO % 3.2 % (3.8-10.2); NEUT % 89.9 % (42.8-82.8); PLATELET COUNT 130 K/MM3 (134-434); RBC 3.01 M/mm3 (3.60-5.2); RDW 20.5 % (11.6-15.6); WHITE BLOOD COUNT 4.9 K/mm3 (4.0-10.0)
[2020-03-26 07:54] LABS: ALBUMIN 2.9 g/dl (3.4-5.0); BILIRUBIN,TOTAL 0.9 mg/dL (0.2-1); BLOOD UREA NITROGEN 94.4 mg/dL (7-18); CALCIUM 8.1 mg/dL (8.5-10.1); CREATININE 5.8 mg/dL (0.55-1.3); POTASSIUM 4.1 mmol/L (3.5-5.1)
[2020-03-26] MEDS: VERAPAMIL HCL 240 MG E.R. TABLET PO SCH (09:04)
[2020-03-26] MEDS: hydrALAZINE HCL 25 MG TABLET (FP) PO SCH ×2 (09:04→21:17)
[2020-03-26] MEDS: methylPREDNISolone NA SUCC 40 MG/1 ML VIAL IVPUSH SCH ×2 (09:04→21:17)
[2020-03-26] MEDS: APIXABAN 2.5 MG TABLET PO SCH ×2 (09:04→21:18)
[2020-03-26] MEDS: METOPROLOL TARTRATE 50 MG TABLET (FP) PO SCH ×2 (09:04→21:24)
[2020-03-26] MEDS: FUROSEMIDE 40 MG/4 ML INJECTABLE VIAL IVPUSH SCH (09:05)
[2020-03-26] MEDS: SODIUM ZIRCONIUM CYCLOSILICATE (LOKELMA) 5 GM PACKET PO SCH (09:05)
[2020-03-26] MEDS: POLYETHYLENE GLYCOL 3350 119 GM BTL PO SCH (09:05)
[2020-03-26 09:28] LABS: ANISOCYTOSIS 1+; MACROCYTOSIS 0; PLATELET ESTIMATE DECREASED; TARGET CELLS 2+
--- NOTE | 2020-03-26 11:32 | PN ---
Progress Note, Physician - Current Medication List Current Medications: Active Medications Apixaban (Eliquis -) 2.5 mg PO BID [facility] Last Admin: 03/26/20 09:04 Dose: 2.5 mg Documented by: Bupropion HCl (Wellbutrin Xl -) 300 mg PO DAILY [facility] Last Admin: 03/26/20 09:04 Dose: 300 mg Documented by: Docusate Sodium (Colace -) 100 mg PO BID PRN PRN Reason: CONSTIPATION Last Admin: 03/26/20 08:25 Dose: 100 mg Documented by: Furosemide (Lasix Injection -) 40 mg IVPUSH DAILY [facility] Last Admin: 03/26/20 09:05 Dose: 40 mg Documented by: Gabapentin (Neurontin -) 300 mg PO TID [facility] Last Admin: 03/26/20 06:12 Dose: 300 mg Documented by: Hydralazine HCl (Apresoline -) 50 mg PO BID [facility] Last Admin: 03/26/20 09:04 Dose: 50 mg Documented by: Lactulose (Cephulac (Oral Use)) 20 gm PO TID PRN PRN Reason: CONSTIPATION Last Admin: 03/26/20 08:25 Dose: 20 gm Documented by: Methylprednisolone Sodium Succinate (Solu-Medrol -) 30 mg IVPUSH BID [facility] Last Admin: 03/26/20 09:04 Dose: 30 mg Documented by: Metoprolol Tartrate (Lopressor -) 50 mg PO BID [facility] Last Admin: 03/26/20 09:04 Dose: 50 mg Documented by: Polyethylene Glycol (Miralax (For Daily Use) -) 17 gm PO DAILY [facility] Last Admin: 03/26/20 09:05 Dose: 17 gm Documented by: Senna (Senna -) 2 tab PO HS [facility] Last Admin: 03/25/20 21:24 Dose: 2 tab Documented by: Sodium Zirconium Cyclosilicate (Lokelma) 10 gm PO DAILY [facility] Last Admin: 03/26/20 09:05 Dose: 10 gm Documented by: Verapamil HCl (Calan Sr -) 240 mg PO DAILY [facility] Last Admin: 03/26/20 09:04 Dose: 240 mg Documented by: - Objective Vital Signs: Vital Signs Temperature 98.1 F 03/26/20 10:00 Pulse Rate 64 03/26/20 10:00 Respiratory Rate 18 03/26/20 10:00 Blood Pressure 154/84 03/26/20 10:00 O2 Sat by Pulse Oximetry (%) 92 L 03/26/20 09:00 Cardiovascular: Yes: S1, S2 Respiratory: Yes: Regular, CTA Bilaterally Gastrointestinal: Yes: Normal Bowel Sounds, Soft Labs: CBC, BMP 03/26/20 05:51 03/26/20 05:51 INR, PTT INR 1.61 (0.83-1.09) H 03/22/20 07:10 Assessment/Plan - Problems (1) Elevated LFTs Assessment/Plan: -Likely 2/2 to congestive hepatopathy -Will get GI input -Repeat labs -Monitor trend Problems reviewed: Yes Code(s): R79.89 - OTHER SPECIFIED ABNORMAL FINDINGS OF BLOOD CHEMISTRY (2) JOSEPH (acute kidney injury) Assessment/Plan: -Nephrology consult Abnormal Lab Results 03/26/20 03/26/20 05:51 05:51 RBC 3.01 L Hgb 8.6 L Hct 27.9 L MCHC 30.8 L RDW 20.5 H Plt Count 130 L Neutrophils % 89.9 H Lymphocytes % 6.6 L D Monocytes % 3.2 L Chloride 96 L Carbon Dioxide 36 H BUN 94.4 H Creatinine 5.8 H Random Glucose 143 H Calcium 8.1 L Albumin 2.9 L -Hold FABIAN -monitor trend Problems reviewed: Yes Code(s): N17.9 - ACUTE KIDNEY FAILURE, UNSPECIFIED (3) CHF exacerbation Assessment/Plan: -Cardiology consult -IV furosemide 40 mg daily--po -Low sodium diet -daily weights -Nasal O2 to keep SpO2>90% Problems reviewed: Yes Code(s): I50.9 - HEART FAILURE, UNSPECIFIED Qualifiers: Heart failure type: unspecified Qualified Code(s): I50.9 - Heart failure, unspecified (4) Anemia Assessment/Plan: -Check Iron, thyroid, B12, and stool Ob -Transfuse only if Hg<7.0 to avoid fluid overload -Could be dilutional vs CKD vs CD Problems reviewed: Yes Code(s): D64.9 - ANEMIA, UNSPECIFIED (5) Diabetes Assessment/Plan: -Last a1c at 5.8 -Recheck A1c -BGM AC HS -Diabetic low sodium diet Problems reviewed: Yes Code(s): E11.9 - TYPE 2 DIABETES MELLITUS WITHOUT COMPLICATIONS (6) Afib Assessment/Plan: -Chronic,rate controlled -Continue Eliquis Problems reviewed: Yes Code(s): I48.91 - UNSPECIFIED ATRIAL FIBRILLATION Qualifiers: Atrial fibrillation type: unspecified Qualified Code(s): I48.91 - Unspecified atrial fibrillation (7) Lethargy Assessment/Plan: -Improved -CT head nad -ABG noted on bipap -Ammonia high--Lactulose
--- NOTE | 2020-03-26 13:24 | PN ---
Progress Note (short form) - Note Progress Note: 1. CKD 2. CHF 3. a-fib 4. lower ext edema 5. COPD 6. active smoker 7. non compliance 8. dyspnea 9. hyperkalemia Active Medications Apixaban (Eliquis -) 2.5 mg PO BID [facility] Last Admin: 03/26/20 09:04 Dose: 2.5 mg Documented by: Bupropion HCl (Wellbutrin Xl -) 300 mg PO DAILY [facility] Last Admin: 03/26/20 09:04 Dose: 300 mg Documented by: Docusate Sodium (Colace -) 100 mg PO BID PRN PRN Reason: CONSTIPATION Last Admin: 03/26/20 08:25 Dose: 100 mg Documented by: Furosemide (Lasix -) 40 mg PO DAILY [facility] Gabapentin (Neurontin -) 300 mg PO TID [facility] Last Admin: 03/26/20 13:19 Dose: 300 mg Documented by: Hydralazine HCl (Apresoline -) 50 mg PO BID [facility] Last Admin: 03/26/20 09:04 Dose: 50 mg Documented by: Lactulose (Cephulac (Oral Use)) 20 gm PO TID PRN PRN Reason: CONSTIPATION Last Admin: 03/26/20 08:25 Dose: 20 gm Documented by: Methylprednisolone Sodium Succinate (Solu-Medrol -) 30 mg IVPUSH BID [facility] Last Admin: 03/26/20 09:04 Dose: 30 mg Documented by: Metoprolol Tartrate (Lopressor -) 50 mg PO BID [facility] Last Admin: 03/26/20 09:04 Dose: 50 mg Documented by: Polyethylene Glycol (Miralax (For Daily Use) -) 17 gm PO DAILY [facility] Last Admin: 03/26/20 09:05 Dose: 17 gm Documented by: Senna (Senna -) 2 tab PO HS [facility] Last Admin: 03/25/20 21:24 Dose: 2 tab Documented by: Sodium Zirconium Cyclosilicate (Lokelma) 10 gm PO DAILY [facility] Last Admin: 03/26/20 09:05 Dose: 10 gm Documented by: Verapamil HCl (Calan Sr -) 240 mg PO DAILY [facility] Last Admin: 03/26/20 09:04 Dose: 240 mg Documented by: Last Vital Signs Temp Pulse Resp BP Pulse Ox 98.1 F 64 18 154/84 94 L 03/26/20 10:00 03/26/20 10:00 03/26/20 10:00 03/26/20 10:00 03/26/20 12:39 CBC, BMP 03/26/20 05:51 03/26/20 05:51 CBC, BMP 03/25/20 05:48 03/25/20 05:48 JOSEPH on chronic CKD CHF not clearly uremic with GI symptoms but lethargy may be a symptom of [employer] effects discussed with her the possible need for HD for uremic symptoms he wants to hold off till tomorrow before giving consent for access or dialysis treatment monitor labs
--- NOTE | 2020-03-26 14:24 | PN ---
Progress Note (short form) - Note Progress Note: Lethargic but arousbale and in NAD on NC O2. Was on NIPPV support overnight. No acute events overnight. Intake & Output 03/23/20 03/24/20 03/25/20 03/26/20 23:59 23:59 23:59 23:59 Intake Total 380 350 840 240 Output Total 1800 800 400 150 Balance -1420 -450 440 90 Weight 174 lb 174 lb Last Vital Signs Temp Pulse Resp BP Pulse Ox 98.1 F 64 18 154/84 94 L 03/26/20 10:00 03/26/20 10:00 03/26/20 10:00 03/26/20 10:00 03/26/20 12:39 Active Medications Apixaban (Eliquis -) 2.5 mg PO BID [facility] Last Admin: 03/26/20 09:04 Dose: 2.5 mg Documented by: Bupropion HCl (Wellbutrin Xl -) 300 mg PO DAILY [facility] Last Admin: 03/26/20 09:04 Dose: 300 mg Documented by: Docusate Sodium (Colace -) 100 mg PO BID PRN PRN Reason: CONSTIPATION Last Admin: 03/26/20 08:25 Dose: 100 mg Documented by: Furosemide (Lasix -) 40 mg PO DAILY [facility] Gabapentin (Neurontin -) 300 mg PO TID [facility] Last Admin: 03/26/20 13:19 Dose: 300 mg Documented by: Hydralazine HCl (Apresoline -) 50 mg PO BID [facility] Last Admin: 03/26/20 09:04 Dose: 50 mg Documented by: Lactulose (Cephulac (Oral Use)) 20 gm PO TID PRN PRN Reason: CONSTIPATION Last Admin: 03/26/20 08:25 Dose: 20 gm Documented by: Methylprednisolone Sodium Succinate (Solu-Medrol -) 30 mg IVPUSH BID [facility] Last Admin: 03/26/20 09:04 Dose: 30 mg Documented by: Metoprolol Tartrate (Lopressor -) 50 mg PO BID [facility] Last Admin: 03/26/20 09:04 Dose: 50 mg Documented by: Polyethylene Glycol (Miralax (For Daily Use) -) 17 gm PO DAILY [facility] Last Admin: 03/26/20 09:05 Dose: 17 gm Documented by: Senna (Senna -) 2 tab PO HS [facility] Last Admin: 03/25/20 21:24 Dose: 2 tab Documented by: Sodium Zirconium Cyclosilicate (Lokelma) 10 gm PO DAILY [facility] Last Admin: 03/26/20 09:05 Dose: 10 gm Documented by: Verapamil HCl (Calan Sr -) 240 mg PO DAILY [facility] Last Admin: 03/26/20 09:04 Dose: 240 mg Documented by: Constitutional: Yes: NAD Eyes: Yes: WNL HENT: Yes: WNL Neck: Yes: WNL Cardiovascular: Yes: Pulse Irregular, S1, S2 Respiratory: Yes: Bibasilar rales Gastrointestinal: Yes: Normal Bowel Sounds, Soft Extremities: Yes: WNL Edema: Yes Labs: Laboratory Results - last 24 hr 03/26/20 03/26/20 05:51 05:51 WBC 4.9 RBC 3.01 L Hgb 8.6 L Hct 27.9 L MCV 92.4 MCH 28.4 MCHC 30.8 L RDW 20.5 H Plt Count 130 L MPV 9.0 Absolute Neuts (auto) 4.4 Neutrophils % 89.9 H Lymphocytes % 6.6 L D Monocytes % 3.2 L Eosinophils % 0.0 Basophils % 0.3 Nucleated RBC % 0 Hypochromia 1+ Platelet Estimate Decreased Polychromasia 1+ Poikilocytosis 2+ Anisocytosis 1+ Microcytosis 1+ Macrocytosis 0 Target Cells 2+ Sodium 140 Potassium 4.1 Chloride 96 L Carbon Dioxide 36 H Anion Gap 8 BUN 94.4 H Creatinine 5.8 H Est GFR (CKD-EPI)AfAm 8.41 Est GFR (CKD-EPI)NonAf 7.25 Random Glucose 143 H Calcium 8.1 L Total Bilirubin 0.9 AST 19 ALT 29 Alkaline Phosphatase 86 Total Protein 7.0 Albumin 2.9 L Problem List - Problems (1) Acute on chronic respiratory failure with hypoxia and hypercapnia Code(s): J96.21 - ACUTE AND CHRONIC RESPIRATORY FAILURE WITH HYPOXIA; J96.22 - ACUTE AND CHRONIC RESPIRATORY FAILURE WITH HYPERCAPNIA (2) Anemia Code(s): D64.9 - ANEMIA, UNSPECIFIED (3) CHF (congestive heart failure) Code(s): I50.9 - HEART FAILURE, UNSPECIFIED Qualifiers: (4) Elevated LFTs Code(s): R79.89 - OTHER SPECIFIED ABNORMAL FINDINGS OF BLOOD CHEMISTRY (5) Acute kidney injury superimposed on CKD Code(s): N17.9 - ACUTE KIDNEY FAILURE, UNSPECIFIED; N18.9 - CHRONIC KIDNEY DISEASE, UNSPECIFIED (6) Acute on chronic diastolic (congestive) heart failure Code(s): I50.33 - ACUTE ON CHRONIC DIASTOLIC (CONGESTIVE) HEART FAILURE (7) Acute respiratory failure Code(s): J96.00 - ACUTE RESPIRATORY FAILURE, UNSP W HYPOXIA OR HYPERCAPNIA (8) Afib Code(s): I48.91 - UNSPECIFIED ATRIAL FIBRILLATION Qualifiers: Atrial fibrillation type: unspecified Qualified Code(s): I48.91 - Unspecified atrial fibrillation (9) Atrial fibrillation Code(s): I48.91 - UNSPECIFIED ATRIAL FIBRILLATION (10) HTN (hypertension) Code(s): I10 - ESSENTIAL (PRIMARY) HYPERTENSION (11) Leg edema Code(s): R60.0 - LOCALIZED EDEMA (12) Respiratory acidosis Code(s): E87.2 - ACIDOSIS (13) Cigarette nicotine dependence Code(s): F17.200 - NICOTINE DEPENDENCE, UNSPECIFIED, UNCOMPLICATED Assessment/Plan IMP ACUTE ON CHRONIC HYPOXEMIC/HYPERCAPNEIC RESPIRATORY FAILURE IMPROVING ACUTE ON CHRONIC CHF IMPROVING COPD O2 DEPENDENT H/O RESPIRATORY FAILURE REQUIRING VENT SUPPORT 10/28 ILD ACUTE ON CHRONIC KIDNEY DISEASE H/O PE AFIB TANISHA DM HTM ELEVATED LFTS IMPROVED PLAN SUPPLEMENTAL O2 TO MAINTAIN O2 SAT 90% NIPPV NEEDED LASIX WEAN MEDROL INHALED BRONCHODILATORS AC MONITOR LYTES,RENAL FUNCTION Dr Montiel
[2020-03-26] MEDS: SENNOSIDES 8.6MG TABLET (FP) PO SCH (21:18)
[2020-03-27] MEDS: GABAPENTIN 300 MG CAPSULE PO SCH ×3 (06:00→21:51)
[2020-03-27 06:13] LABS: EOS % 0.1 % (0-4.5); HEMATOCRIT 28.3 % (32.4-45.2); HEMOGLOBIN 8.6 GM/dL (10.7-15.3); LYMPH % 1.4 % (8-40); MCHC 30.3 g/dl (32.0-36.0); MEAN CELL VOLUME 92.3 fl (80-96); MEAN PLT VOLUME 8.7 fl (7.5-11.1); MONO % 10.6 % (3.8-10.2); NEUT % 87.9 % (42.8-82.8); PLATELET COUNT 118 K/MM3 (134-434); RBC 3.07 M/mm3 (3.60-5.2); RDW 20.8 % (11.6-15.6); WHITE BLOOD COUNT 8.2 K/mm3 (4.0-10.0)
[2020-03-27 06:27] LABS: ALBUMIN 2.9 g/dl (3.4-5.0); BILIRUBIN,TOTAL 0.9 mg/dL (0.2-1); BLOOD UREA NITROGEN 101.8 mg/dL (7-18); CALCIUM 7.9 mg/dL (8.5-10.1); CREATININE 5.9 mg/dL (0.55-1.3); POTASSIUM 3.7 mmol/L (3.5-5.1)
--- NOTE | 2020-03-27 08:48 | PN ---
Progress Note, Physician - Current Medication List Current Medications: Active Medications Apixaban (Eliquis -) 2.5 mg PO BID [facility] Last Admin: 03/26/20 21:18 Dose: 2.5 mg Documented by: Bupropion HCl (Wellbutrin Xl -) 300 mg PO DAILY [facility] Last Admin: 03/26/20 09:04 Dose: 300 mg Documented by: Docusate Sodium (Colace -) 100 mg PO BID PRN PRN Reason: CONSTIPATION Last Admin: 03/26/20 08:25 Dose: 100 mg Documented by: Furosemide (Lasix -) 40 mg PO DAILY [facility] Gabapentin (Neurontin -) 300 mg PO TID [facility] Last Admin: 03/27/20 06:00 Dose: 300 mg Documented by: Hydralazine HCl (Apresoline -) 50 mg PO BID [facility] Last Admin: 03/26/20 21:17 Dose: 50 mg Documented by: Lactulose (Cephulac (Oral Use)) 20 gm PO TID PRN PRN Reason: CONSTIPATION Last Admin: 03/26/20 08:25 Dose: 20 gm Documented by: Metoprolol Tartrate (Lopressor -) 50 mg PO BID [facility] Last Admin: 03/26/20 21:24 Dose: 50 mg Documented by: Polyethylene Glycol (Miralax (For Daily Use) -) 17 gm PO DAILY [facility] Last Admin: 03/26/20 09:05 Dose: 17 gm Documented by: Prednisone (Deltasone -) 30 mg PO BID [facility] Senna (Senna -) 2 tab PO HS [facility] Last Admin: 03/26/20 21:18 Dose: 2 tab Documented by: Sodium Zirconium Cyclosilicate (Lokelma) 10 gm PO DAILY [facility] Last Admin: 03/26/20 09:05 Dose: 10 gm Documented by: Verapamil HCl (Calan Sr -) 240 mg PO DAILY [facility] Last Admin: 03/26/20 09:04 Dose: 240 mg Documented by: - Objective Vital Signs: Vital Signs Temperature 98.2 F 03/27/20 05:37 Pulse Rate 58 L 03/27/20 05:37 Respiratory Rate 18 03/27/20 05:37 Blood Pressure 144/70 03/27/20 05:37 O2 Sat by Pulse Oximetry (%) 95 03/27/20 05:37 Cardiovascular: Yes: S1, S2 Respiratory: Yes: Regular, CTA Bilaterally Gastrointestinal: Yes: Normal Bowel Sounds, Soft Labs: CBC, BMP 03/27/20 05:48 03/27/20 05:48 INR, PTT INR 1.61 (0.83-1.09) H 03/22/20 07:10 Assessment/Plan - Problems (1) Elevated LFTs Assessment/Plan: -Likely 2/2 to congestive hepatopathy -Will get GI input -Repeat labs NORMALIZED Laboratory Tests 03/27/20 05:48 AST 20 ALT 27 Alkaline Phosphatase 81 -Monitor trend Problems reviewed: Yes Code(s): R79.89 - OTHER SPECIFIED ABNORMAL FINDINGS OF BLOOD CHEMISTRY (2) JOSEPH (acute kidney injury) Assessment/Plan: -Nephrology consult Abnormal Lab Results 03/27/20 03/27/20 05:48 05:48 RBC 3.07 L Hgb 8.6 L Hct 28.3 L MCHC 30.3 L RDW 20.8 H Plt Count 118 L Neutrophils % 87.9 H Lymphocytes % 1.4 L D Monocytes % 10.6 H D Chloride 95 L Carbon Dioxide 36 H BUN 101.8 H Creatinine 5.9 H Random Glucose 148 H Calcium 7.9 L Albumin 2.9 L -Hold FABIAN -monitor trend - DIALYSIS--AWAITING FAMILY DECISION Problems reviewed: Yes Code(s): N17.9 - ACUTE KIDNEY FAILURE, UNSPECIFIED (3) CHF exacerbation Assessment/Plan: -Cardiology consult -IV furosemide 40 mg daily--po -Low sodium diet -daily weights -Nasal O2 to keep SpO2>90% Problems reviewed: Yes Code(s): I50.9 - HEART FAILURE, UNSPECIFIED Qualifiers: Heart failure type: unspecified Qualified Code(s): I50.9 - Heart failure, unspecified (4) Anemia Assessment/Plan: -Check Iron, thyroid, B12, and stool Ob -Transfuse only if Hg<7.0 to avoid fluid overload -hGB 8.6 -Could be dilutional vs CKD vs CD Problems reviewed: Yes Code(s): D64.9 - ANEMIA, UNSPECIFIED (5) Diabetes Assessment/Plan: -Last a1c at 5.8 -Recheck A1c -BGM AC HS -Diabetic low sodium diet Problems reviewed: Yes Code(s): E11.9 - TYPE 2 DIABETES MELLITUS WITHOUT COMPLICATIONS (6) Afib Assessment/Plan: -Chronic,rate controlled -Continue Eliquis Problems reviewed: Yes Code(s): I48.91 - UNSPECIFIED ATRIAL FIBRILLATION Qualifiers: Atrial fibrillation type: unspecified Qualified Code(s): I48.91 - Uns pecified atrial fibrillation (7) Lethargy Assessment/Plan: -Improved -CT head nad -ABG noted on bipap -Ammonia high--Lactulose
[2020-03-27] MEDS: APIXABAN 2.5 MG TABLET PO SCH ×2 (10:02→21:50)
[2020-03-27] MEDS: POLYETHYLENE GLYCOL 3350 119 GM BTL PO SCH (10:02)
[2020-03-27] MEDS: predniSONE 10 MG TABLET (UD) PO SCH ×2 (10:02→21:49)
[2020-03-27] MEDS: hydrALAZINE HCL 25 MG TABLET (FP) PO SCH ×2 (10:02→21:50)
[2020-03-27] MEDS: VERAPAMIL HCL 240 MG E.R. TABLET PO SCH (10:02)
[2020-03-27] MEDS: FUROSEMIDE 40 MG TABLET (FP) PO SCH (10:02)
[2020-03-27] MEDS: METOPROLOL TARTRATE 50 MG TABLET (FP) PO SCH ×2 (10:02→21:51)
[2020-03-27] MEDS ORDERED: SODIUM ZIRCONIUM CYCLOSILICATE (LOKELMA) 10 GM PACKET PO SCH (11:12)
[2020-03-27] MEDS: SODIUM ZIRCONIUM CYCLOSILICATE (LOKELMA) 5 GM PACKET PO SCH (11:49)
[2020-03-27] MEDS ORDERED: PT OWN MED DRAWER 7, Y5N ONE (11:51)
[2020-03-27 12:07] LABS: ANTIGLOMERULAR BASEMENT MEN.AB 4 units (0-20)
--- NOTE | 2020-03-27 13:00 | PN ---
Progress Note, Physician History of Present Illness: Pt seen and examined at bedside. She is awake but confused at times. - Current Medication List Current Medications: Active Medications Apixaban (Eliquis -) 2.5 mg PO BID [facility] Last Admin: 03/27/20 10:02 Dose: 2.5 mg Documented by: Bupropion HCl (Wellbutrin Xl -) 300 mg PO DAILY [facility] Last Admin: 03/27/20 10:02 Dose: 300 mg Documented by: Docusate Sodium (Colace -) 100 mg PO BID PRN PRN Reason: CONSTIPATION Last Admin: 03/26/20 08:25 Dose: 100 mg Documented by: Furosemide (Lasix -) 40 mg PO DAILY [facility] Last Admin: 03/27/20 10:02 Dose: 40 mg Documented by: Gabapentin (Neurontin -) 300 mg PO TID [facility] Last Admin: 03/27/20 06:00 Dose: 300 mg Documented by: Hydralazine HCl (Apresoline -) 50 mg PO BID [facility] Last Admin: 03/27/20 10:02 Dose: 50 mg Documented by: Lactulose (Cephulac (Oral Use)) 20 gm PO TID PRN PRN Reason: CONSTIPATION Last Admin: 03/26/20 08:25 Dose: 20 gm Documented by: Metoprolol Tartrate (Lopressor -) 50 mg PO BID [facility] Last Admin: 03/27/20 10:02 Dose: 50 mg Documented by: Polyethylene Glycol (Miralax (For Daily Use) -) 17 gm PO DAILY [facility] Last Admin: 03/27/20 10:02 Dose: Not Given Documented by: Prednisone (Deltasone -) 30 mg PO BID [facility] Last Admin: 03/27/20 10:02 Dose: 30 mg Documented by: Senna (Senna -) 2 tab PO HS [facility] Last Admin: 03/26/20 21:18 Dose: 2 tab Documented by: Sodium Zirconium Cyclosilicate (Lokelma) 10 gm PO DAILY [facility] Verapamil HCl (Calan Sr -) 240 mg PO DAILY [facility] Last Admin: 03/27/20 10:02 Dose: 240 mg Documented by: - Objective Vital Signs: Vital Signs Temperature 97.5 F L 03/27/20 09:00 Pulse Rate 63 03/27/20 09:00 Respiratory Rate 20 03/27/20 09:00 Blood Pressure 157/88 03/27/20 09:00 O2 Sat by Pulse Oximetry (%) 94 L 03/27/20 09:00 Constitutional: Yes: Calm Eyes: Yes: Conjunctiva Clear HENT: Yes: Atraumatic Neck: Yes: Supple Cardiovascular: Yes: S1, S2 Respiratory: Yes: CTA Bilaterally Gastrointestinal: Yes: Soft Genitourinary: Yes: WNL Musculoskeletal: Yes: WNL Edema: Yes Edema: LLE: 2+, RLE: 2+ Neurological: Yes: Confusion Labs: CBC, BMP 03/27/20 05:48 03/27/20 05:48 INR, PTT INR 1.61 (0.83-1.09) H 03/22/20 07:10 Problem List - Problems (1) Anemia Code(s): D64.9 - ANEMIA, UNSPECIFIED (2) CHF (congestive heart failure) Code(s): I50.9 - HEART FAILURE, UNSPECIFIED Qualifiers: (3) JOSEPH (acute kidney injury) Code(s): N17.9 - ACUTE KIDNEY FAILURE, UNSPECIFIED (4) Afib Code(s): I48.91 - UNSPECIFIED ATRIAL FIBRILLATION Qualifiers: Atrial fibrillation type: unspecified Qualified Code(s): I48.91 - Unspecified atrial fibrillation (5) CHF (congestive heart failure) Code(s): I50.9 - HEART FAILURE, UNSPECIFIED Qualifiers: Heart failure type: diastolic Heart failure chronicity: unspecified Qualified Code(s): I50.30 - Unspecified diastolic (congestive) heart failure (6) CKD (chronic kidney disease) Code(s): N18.9 - CHRONIC KIDNEY DISEASE, UNSPECIFIED Assessment/Plan Current Medications Generic Name Dose Route Start Last Admin Trade Name Freq PRN Reason Stop Dose Admin Apixaban 2.5 mg 03/19/20 22:00 03/27/20 10:02 Eliquis - PO 2.5 mg BID [facility]OL[facility] Administration Bupropion HCl 300 mg 03/20/20 10:00 03/27/20 10:02 Wellbutrin Xl - PO 300 mg DAILY JOLENE Administration Docusate Sodium 100 mg 03/19/20 13:38 03/26/20 08:25 Colace - PO 100 mg BID PRN Administration CONSTIPATION Furosemide 40 mg 03/27/20 10:00 03/27/20 10:02 Lasix - PO 40 mg DAILY [facility] Administration Gabapentin 300 mg 03/19/20 14:00 03/27/20 06:00 Neurontin - PO 300 mg TID J[facility]ENE Administration Hydralazine HCl 50 mg 03/19/20 22:00 03/27/20 10:02 Apresoline - PO 50 mg BID [facility] Administration Lactulose 20 gm 03/23/20 06:54 03/26/20 08:25 Cephulac (Oral Use) PO 20 gm TID PRN Administration CONSTIPATION Metoprolol Tartrate 50 mg 03/19/20 22:00 03/27/20 10:02 Lopressor - PO 50 mg BID [facility] Administration Polyethylene Glycol 17 gm 03/20/20 12:45 03/27/20 10:02 Miralax (For Daily Use) - PO Not Given DAILY [facility] Prednisone 30 mg 03/27/20 10:00 03/27/20 10:02 Deltasone - PO 30 mg BID [facility] Administration Senna 2 tab 03/20/20 22:00 03/26/20 21:18 Senna - PO 2 tab HS [facility] Administration Sodium Zirconium Cyclosilicate 10 gm 03/27/20 11:12 Lokelma PO DAILY [facility] Verapamil HCl 240 mg 03/20/20 10:00 03/27/20 10:02 Calan Sr - PO 240 mg DAILY [facility] Administration Impression 1. CKD 2. CHF 3. a-fib 4. lower ext edema 5. COPD 6. active smoker 7. non compliance 8. dyspnea 9. hyperkalemia Plan - spoke to , Brady Monson and discussed treatment options. He has given consent for HD. I discussed risks associate with procedure. - HD today - discussed with cardio - cont to monitor volume status and renal function - can cont lasix on non HD days - maintain montes
[2020-03-27] MEDS ORDERED: SODIUM CHLORIDE 250 ML IV PRN (13:03)
--- NOTE | 2020-03-27 14:10 | PN ---
Progress Note (short form) - Note Progress Note: Awake but confused. NAD on NC O2. No acute events overnight. Intake & Output 03/24/20 03/25/20 03/26/20 03/27/20 23:59 23:59 23:59 23:59 Intake Total 350 840 870 340 Output Total 800 400 150 Balance -450 440 720 340 Weight 174 lb 174 lb 173 lb 6.4 oz Last Vital Signs Temp Pulse Resp BP Pulse Ox 97.5 F L 63 20 157/88 94 L 03/27/20 09:00 03/27/20 09:00 03/27/20 09:00 03/27/20 09:00 03/27/20 09:00 Active Medications Apixaban (Eliquis -) 2.5 mg PO BID [facility] Last Admin: 03/27/20 10:02 Dose: 2.5 mg Documented by: Bupropion HCl (Wellbutrin Xl -) 300 mg PO DAILY [facility] Last Admin: 03/27/20 10:02 Dose: 300 mg Documented by: Docusate Sodium (Colace -) 100 mg PO BID PRN PRN Reason: CONSTIPATION Last Admin: 03/26/20 08:25 Dose: 100 mg Documented by: Furosemide (Lasix -) 40 mg PO DAILY [facility] Last Admin: 03/27/20 10:02 Dose: 40 mg Documented by: Gabapentin (Neurontin -) 300 mg PO TID [facility] Last Admin: 03/27/20 06:00 Dose: 300 mg Documented by: Hydralazine HCl (Apresoline -) 50 mg PO BID [facility] Last Admin: 03/27/20 10:02 Dose: 50 mg Documented by: Sodium Chloride (Normal Saline -) 250 mls @ 3,000 mls/hr IV PRN PRN PRN Reason: Hypotension during Dialysis Stop: 03/28/20 13:03 Lactulose (Cephulac (Oral Use)) 20 gm PO TID PRN PRN Reason: CONSTIPATION Last Admin: 03/26/20 08:25 Dose: 20 gm Documented by: Metoprolol Tartrate (Lopressor -) 50 mg PO BID [facility] Last Admin: 03/27/20 10:02 Dose: 50 mg Documented by: Polyethylene Glycol (Miralax (For Daily Use) -) 17 gm PO DAILY [facility] Last Admin: 03/27/20 10:02 Dose: Not Given Documented by: Prednisone (Deltasone -) 30 mg PO BID [facility] Last Admin: 03/27/20 10:02 Dose: 30 mg Documented by: Senna (Senna -) 2 tab PO HS [facility] Last Admin: 03/26/20 21:18 Dose: 2 tab Documented by: Verapamil HCl (Calan Sr -) 240 mg PO DAILY [facility] Last Admin: 03/27/20 10:02 Dose: 240 mg Documented by: Constitutional: Yes: NAD on NC O2 Eyes: Yes: WNL HENT: Yes: WNL Neck: Yes: WNL Cardiovascular: Yes: Pulse Irregular, S1, S2 Respiratory: Yes: Bibasilar rales Gastrointestinal: Yes: Normal Bowel Sounds, Soft Extremities: Yes: WNL Edema: Yes Labs: Laboratory Results - last 24 hr 03/23/20 03/27/20 03/27/20 05:46 05:48 05:48 WBC 8.2 RBC 3.07 L Hgb 8.6 L Hct 28.3 L MCV 92.3 MCH 28.0 MCHC 30.3 L RDW 20.8 H Plt Count 118 L MPV 8.7 Absolute Neuts (auto) 7.2 Neutrophils % 87.9 H Lymphocytes % 1.4 L D Monocytes % 10.6 H D Eosinophils % 0.1 D Basophils % 0.0 Nucleated RBC % 0 Sodium 140 Potassium 3.7 Chloride 95 L Carbon Dioxide 36 H Anion Gap 9 BUN 101.8 H Creatinine 5.9 H Est GFR (CKD-EPI)AfAm 8.24 Est GFR (CKD-EPI)NonAf 7.11 Random Glucose 148 H Calcium 7.9 L Total Bilirubin 0.9 AST 20 ALT 27 Alkaline Phosphatase 81 Ammonia Total Protein 7.0 Albumin 2.9 L Glomerular Base Memb Ab 4 03/27/20 12:05 WBC RBC Hgb Hct MCV MCH MCHC RDW Plt Count MPV Absolute Neuts (auto) Neutrophils % Lymphocytes % Monocytes % Eosinophils % Basophils % Nucleated RBC % Sodium Potassium Chloride Carbon Dioxide Anion Gap BUN Creatinine Est GFR (CKD-EPI)AfAm Est GFR (CKD-EPI)NonAf Random Glucose Calcium Total Bilirubin AST ALT Alkaline Phosphatase Ammonia 27.00 Total Protein Albumin Glomerular Base Memb Ab Problem List - Problems (1) Acute on chronic respiratory failure with hypoxia and hypercapnia Code(s): J96.21 - ACUTE AND CHRONIC RESPIRATORY FAILURE WITH HYPOXIA; J96.22 - ACUTE AND CHRONIC RESPIRATORY FAILURE WITH HYPERCAPNIA (2) Anemia Code(s): D64.9 - ANEMIA, UNSPECIFIED (3) CHF (congestive heart failure) Code(s): I50.9 - HEART FAILURE, UNSPECIFIED Qualifiers: (4) Elevated LFTs Code(s): R79.89 - OTHER SPECIFIED ABNORMAL FINDINGS OF BLOOD CHEMISTRY (5) Acute kidney injury superimposed on CKD Code(s): N17.9 - ACUTE KIDNEY FAILURE, UNSPECIFIED; N18.9 - CHRONIC KIDNEY DISEASE, UNSPECIFIED (6) Acute on chronic diastolic (congestive) heart failure Code(s): I50.33 - ACUTE ON CHRONIC DIASTOLIC (CONGESTIVE) HEART FAILURE (7) Acute respiratory failure Code(s): J96.00 - ACUTE RESPIRATORY FAILURE, UNSP W HYPOXIA OR HYPERCAPNIA (8) Afib Code(s): I48.91 - UNSPECIFIED ATRIAL FIBRILLATION Qualifiers: Atrial fibrillation type: unspecified Qualified Code(s): I48.91 - Unspecified atrial fibrillation (9) Atrial fibrillation Code(s): I48.91 - UNSPECIFIED ATRIAL FIBRILLATION (10) HTN (hypertension) Code(s): I10 - ESSENTIAL (PRIMARY) HYPERTENSION (11) Leg edema Code(s): R60.0 - LOCALIZED EDEMA (12) Respiratory acidosis Code(s): E87.2 - ACIDOSIS (13) Cigarette nicotine dependence Code(s): F17.200 - NICOTINE DEPENDENCE, UNSPECIFIED, UNCOMPLICATED Assessment/Plan IMP ACUTE ON CHRONIC HYPOXEMIC/HYPERCAPNEIC RESPIRATORY FAILURE IMPROVING ACUTE ON CHRONIC CHF IMPROVING COPD O2 DEPENDENT H/O RESPIRATORY FAILURE REQUIRING VENT SUPPORT 10/28 ILD ACUTE ON CHRONIC KIDNEY DISEASE H/O PE AFIB TANISHA DM HTM ELEVATED LFTS IMPROVED PLAN SUPPLEMENTAL O2 TO MAINTAIN O2 SAT 90% NIPPV NEEDED LASIX NOTED PREDNISONE STARTED TODAY INHALED BRONCHODILATORS AC MONITOR LYTES,RENAL FUNCTION Dr Montiel
[2020-03-27 16:08] LABS: ATYPICAL pANCA <1:20 titer (Neg:<1:20); C-ANCA <1:20 titer (Neg:<1:20)
--- NOTE | 2020-03-27 16:28 | PROC ---
Central Line Insertion - Procedure Note TIME OUT performed prior to this procedure with verbal confirmation of correct patient identity, correct side, agreement of the procedure, correct patient position, availability of necessary equipment. The consent form is complete and accurate. Risk of possible infection, bleeding and pneumothorax have been discussed with the patient. Safety precautions based on patient history or medication use has been addressed. Consent on Chart: Yes Central Line: Dialysis Cath, Dual Lumen Position: Supine Area prepped with Chlorhexidine solution then draped using sterile barrier protection. Anesthesia: Lidocaine 1% Technique used: Seldinger Ultrasound Guided Assistance: Yes Site: Right Femoral Dark venous non-pulsatile flow noted from hub of needle. The catheter was introduced. Guide wire removed intact. Each port aspirated then flushed with sterile normal saline and capped. Line secured to skin with silk suture. Biopatch placed around base of line. Sterile occlusive dressing applied. No complications. Patient tolerated the procedure well.
[2020-03-27] MEDS: SENNOSIDES 8.6MG TABLET (FP) PO SCH (21:51)
[2020-03-27 23:37] VITALS: BMI 30.6
[2020-03-28] MEDS: GABAPENTIN 300 MG CAPSULE PO SCH ×2 (06:13→17:16)
[2020-03-28] MEDS ORDERED: METOPROLOL TARTRATE 5 MG/5 ML VIAL IVPUSH ONE (06:38)
[2020-03-28] MEDS ORDERED: METOPROLOL TARTRATE 5 MG/5 ML VIAL IVPUSH PRN ×2 (07:30→19:34)
[2020-03-28] MEDS ORDERED: dilTIAZem HCL 50 MG/10 ML - 10 ML VIAL IVPUSH ONE (07:58)
--- NOTE | 2020-03-28 08:46 | PN ---
Progress Note, Physician - Current Medication List Current Medications: Active Medications Apixaban (Eliquis -) 2.5 mg PO BID [facility] Last Admin: 03/27/20 21:50 Dose: 2.5 mg Documented by: Bupropion HCl (Wellbutrin Xl -) 300 mg PO DAILY [facility] Last Admin: 03/27/20 10:02 Dose: 300 mg Documented by: Chlorhexidine Gluconate (Hibiclens For Decolonization -) 1 applic TP HS [facility] Docusate Sodium (Colace -) 100 mg PO BID PRN PRN Reason: CONSTIPATION Last Admin: 03/26/20 08:25 Dose: 100 mg Documented by: Furosemide (Lasix -) 40 mg PO DAILY [facility] Last Admin: 03/27/20 10:02 Dose: 40 mg Documented by: Gabapentin (Neurontin -) 300 mg PO TID [facility] Last Admin: 03/28/20 06:13 Dose: 300 mg Documented by: Hydralazine HCl (Apresoline -) 50 mg PO BID [facility] Last Admin: 03/27/20 21:50 Dose: 50 mg Documented by: Sodium Chloride (Normal Saline -) 250 mls @ 3,000 mls/hr IV PRN PRN PRN Reason: Hypotension during Dialysis Stop: 03/28/20 13:03 Lactulose (Cephulac (Oral Use)) 20 gm PO TID PRN PRN Reason: CONSTIPATION Last Admin: 03/26/20 08:25 Dose: 20 gm Documented by: Metoprolol Tartrate (Lopressor -) 50 mg PO BID [facility] Last Admin: 03/27/20 21:51 Dose: 50 mg Documented by: Metoprolol Tartrate (Lopressor Injection -) 5 mg IVPUSH Q4H PRN PRN Reason: HYPERTENSION Last Admin: 03/28/20 07:40 Dose: 5 mg Documented by: Mupirocin (Bactroban Ointment (For Decolonization) -) 1 applic NS BID [facility] Stop: 04/02/20 09:59 Polyethylene Glycol (Miralax (For Daily Use) -) 17 gm PO DAILY [facility] Last Admin: 03/27/20 10:02 Dose: Not Given Documented by: Prednisone (Deltasone -) 30 mg PO BID [facility] Last Admin: 03/27/20 21:49 Dose: 30 mg Documented by: Senna (Senna -) 2 tab PO HS [facility] Last Admin: 03/27/20 21:51 Dose: 2 tab Documented by: Verapamil HCl (Calan Sr -) 240 mg PO DAILY [facility] Last Admin: 03/27/20 10:02 Dose: 240 mg Documented by: - Objective Vital Signs: Vital Signs Temperature 98.2 F 03/28/20 01:30 Pulse Rate 152 H 03/28/20 07:40 Respiratory Rate 20 03/28/20 01:30 Blood Pressure 124/76 03/28/20 07:40 O2 Sat by Pulse Oximetry (%) 95 03/27/20 21:48 Cardiovascular: Yes: Tachycardia, Pulse Irregular, S1, S2 Respiratory: Yes: Regular, CTA Bilaterally Gastrointestinal: Yes: Normal Bowel Sounds, Soft Neurological: Yes: Lethargy Labs: INR, PTT INR 1.61 (0.83-1.09) H 03/22/20 07:10 Assessment/Plan - Problems (1) Elevated LFTs Assessment/Plan: -Likely 2/2 to congestive hepatopathy -Will get GI input -Repeat labs NORMALIZED Laboratory Tests 03/27/20 05:48 AST 20 ALT 27 Alkaline Phosphatase 81 -Monitor trend Problems reviewed: Yes Code(s): R79.89 - OTHER SPECIFIED ABNORMAL FINDINGS OF BLOOD CHEMISTRY (2) JOSEPH (acute kidney injury) Assessment/Plan: -Nephrology consult Abnormal Lab Results 03/27/20 03/27/20 05:48 05:48 RBC 3.07 L Hgb 8.6 L Hct 28.3 L MCHC 30.3 L RDW 20.8 H Plt Count 118 L Neutrophils % 87.9 H Lymphocytes % 1.4 L D Monocytes % 10.6 H D Chloride 95 L Carbon Dioxide 36 H BUN 101.8 H Creatinine 5.9 H Random Glucose 148 H Calcium 7.9 L Albumin 2.9 L -Hold FABIAN -monitor trend - DIALYSIS--PER RENAL Problems reviewed: Yes Code(s): N17.9 - ACUTE KIDNEY FAILURE, UNSPECIFIED (3) CHF exacerbation Assessment/Plan: -Cardiology consult -IV furosemide 40 mg daily--po -Low sodium diet -daily weights -Nasal O2 to keep SpO2>90% Problems reviewed: Yes Code(s): I50.9 - HEART FAILURE, UNSPECIFIED Qualifiers: Heart failure type: unspecified Qualified Code(s): I50.9 - Heart failure, unspecified (4) Anemia Assessment/Plan: -Check Iron, thyroid, B12, and stool Ob -Transfuse only if Hg<7.0 to avoid fluid overload -hGB 8.6 -Could be dilutional vs CKD vs CD Problems reviewed: Yes Code(s): D64.9 - ANEMIA, UNSPECIFIED (5) Diabetes Assessment/Plan: -Last a1c at 5.8 -Recheck A1c -BGM AC HS -Diabetic low sodium diet Problems reviewed: Yes Code(s): E11.9 - TYPE 2 DIABETES MELLITUS WITHOUT COMPLICATIONS (6) Afib Assessment/Plan: -Rapid --Given metoproolol will give cardizem ivp -Continue Eliquis Problems reviewed: Yes Code(s): I48.91 - UNSPECIFIED ATRIAL FIBRILLATION Qualifiers: Atrial fibrillation type: unspecified Qualified Code(s): I48.91 - Unspecified atrial fibrillation (7) Lethargy Assessment/Plan: -Stat labs -ABG (8) Respiratory distress Assessment/Plan: -Bipap -ABG -CXR -ICu Monitoring
[2020-03-28] MEDS ORDERED: MIDAZOLAM HCL 2 MG/2 ML SINGLE DOSE VIAL IVPUSH ONE (08:54)
[2020-03-28 08:56] LABS: BLOOD UREA NITROGEN 78.1 mg/dL (7-18); CREATININE 4.9 mg/dL (0.55-1.3); POTASSIUM 3.5 mmol/L (3.5-5.1)
[2020-03-28] MEDS: FENTANYL INJECTION 500 MCG in DEXTROSE 5%-WATER - 90 ML IVPB SCH ×2 (09:00→14:21)
[2020-03-28 09:20] LABS: ALBUMIN 2.2 g/dl (3.4-5.0); BILIRUBIN,TOTAL 1.8 mg/dL (0.2-1); MAGNESIUM 2.1 mg/dL (1.8-2.4); TOT PROT 5.6 g/dl (6.4-8.2)
[2020-03-28] MEDS ORDERED: DEXTROSE 50%-WATER - 25 GM/50 ML VIAL IVPUSH ONE ×5 (09:31→16:19)
[2020-03-28] MEDS ORDERED: DEXTROSE 50%-WATER 25 GM/50 ML DISP.SYRIN ONE ×2 (09:33→09:40)
[2020-03-28] MEDS ORDERED: VASOPRESSIN 40 UNITS in SODIUM CHLORIDE 98 ML IVPB SCH ×3 (09:45→19:34)
[2020-03-28] MEDS ORDERED: VASOPRESSIN 20 UNITS/ML VIAL IV ONE ×2 (09:48→10:00)
[2020-03-28] MEDS ORDERED: MUPIROCIN 2% TOPICAL OINTMENT FOR DECOLONIZATION NS SCH ×2 (10:00→22:00)
--- NOTE | 2020-03-28 10:21 | PN ---
Progress Note, Physician History of Present Illness: seen and examined today. intubated, hypotensive, tachycardic. - Current Medication List Current Medications: Active Medications Apixaban (Eliquis -) 2.5 mg PO BID [facility] Last Admin: 03/27/20 21:50 Dose: 2.5 mg Documented by: Bupropion HCl (Wellbutrin Xl -) 300 mg PO DAILY [facility] Last Admin: 03/27/20 10:02 Dose: 300 mg Documented by: Chlorhexidine Gluconate (Hibiclens For Decolonization -) 1 applic TP [facility] Docusate Sodium (Colace -) 100 mg PO BID PRN PRN Reason: CONSTIPATION Last Admin: 03/26/20 08:25 Dose: 100 mg Documented by: Furosemide (Lasix -) 40 mg PO DAILY [facility] Last Admin: 03/27/20 10:02 Dose: 40 mg Documented by: Gabapentin (Neurontin -) 300 mg PO TID [facility] Last Admin: 03/28/20 06:13 Dose: 300 mg Documented by: Hydralazine HCl (Apresoline -) 50 mg PO BID [facility] Last Admin: 03/27/20 21:50 Dose: 50 mg Documented by: Sodium Chloride (Normal Saline -) 250 mls @ 3,000 mls/hr IV PRN PRN PRN Reason: Hypotension during Dialysis Stop: 03/28/20 13:03 Fentanyl 500 mcg/ Dextrose 100 mls @ 0 mls/hr IVPB TITR [facility] Vasopressin 40 units/ Sodium (Chloride) 100 mls @ 10 mls/hr IVPB ASDIR [facility]; Protocol Vancomycin HCl 1,500 mg/ (Dextrose) 500 mls @ 250 mls/hr IVPB ONCE ONE; Protocol Stop: 03/28/20 12:29 Cefepime HCl (Maxipime 2gm Ivpb (Premix)) 2 gm in 50 mls @ 100 mls/hr IVPB ONCE ONE Stop: 03/28/20 10:22 Dextrose (D10w -) 1,000 mls @ 42 mls/hr IV ASDIR [facility] Lactulose (Cephulac (Oral Use)) 20 gm PO TID PRN PRN Reason: CONSTIPATION Last Admin: 03/26/20 08:25 Dose: 20 gm Documented by: Metoprolol Tartrate (Lopressor -) 50 mg PO BID [facility] Last Admin: 03/27/20 21:51 Dose: 50 mg Documented by: Metoprolol Tartrate (Lopressor Injection -) 5 mg IVPUSH Q4H PRN PRN Reason: HYPERTENSION Last Admin: 03/28/20 07:40 Dose: 5 mg Documented by: Mupirocin (Bactroban Ointment (For Decolonization) -) 1 applic NS BID [facility] Stop: 04/02/20 09:59 Polyethylene Glycol (Miralax (For Daily Use) -) 17 gm PO DAILY [facility] Last Admin: 03/27/20 10:02 Dose: Not Given Documented by: Prednisone (Deltasone -) 30 mg PO BID [facility] Last Admin: 03/27/20 21:49 Dose: 30 mg Documented by: Senna (Senna -) 2 tab PO HS [facility] Last Admin: 03/27/20 21:51 Dose: 2 tab Documented by: Verapamil HCl (Calan Sr -) 240 mg PO DAILY [facility] Last Admin: 03/27/20 10:02 Dose: 240 mg Documented by: - Objective Vital Signs: Vital Signs Temperature 98.2 F 03/28/20 01:30 Pulse Rate 152 H 03/28/20 07:40 Respiratory Rate 25 H 03/28/20 09:28 Blood Pressure 124/76 03/28/20 07:40 O2 Sat by Pulse Oximetry (%) 96 03/28/20 09:28 Constitutional: Yes: No Distress, Calm Eyes: Yes: Conjunctiva Clear HENT: Yes: Atraumatic Cardiovascular: Yes: Tachycardia, Pulse Irregular, S1, S2. No: Bradycardia, Bruit, JVD, Gallop, Murmur, Rub, S3, S4, Varicosities Respiratory: Yes: Regular, Diminished, Intubated, Mechanically Ventilated. No: Rales, Rhonchi, SOB, Wheezes Gastrointestinal: Yes: Normal Bowel Sounds Extremities: Yes: WNL Edema: Yes (Abdominal subQ edema) Peripheral Pulses WNL: Yes Neurological: No: Alert, Oriented Psychiatric: No: Alert, Oriented Labs: CBC, BMP 03/28/20 08:25 03/28/20 08:05 INR, PTT INR 1.61 (0.83-1.09) H 03/22/20 07:10 - ....Imaging Chest X-ray: Report Reviewed, Image Reviewed EKG: Report Reviewed, Image Reviewed Other: Report Reviewed, Image Reviewed (tele-afib rvr) Assessment/Plan 59 year old woman with a PMHx of HTN, DM, diastolic CHF, moderate MR, PAF (on eliquis), asthma (intubated previously), prior PE, pulmonary fibrosis, sleep apnea, CKD, OA, COPD (on 2L home oxygen) presented to the ED 03/19/20 with worsening SOB and bilateral lower extremity edema. Patient has been experiencing worsening SOB and leg edema several days. She has shortness of breath both with minimal exertion and at rest with associated orthopnea and leg edema. CHF -acute on chronic diastolic chf -had been diuresed several days -peripheral edema resolved -pulmonary edema resolved -significant SubQ abdominal edema noted -degree of third spacing secondary to hypoalbuminemia -being dialyzed and receiving po lasix Afib-pafib with rvr -mild rvr currently -currently hypotensive -to start pressor support -hold metoprolol while hypotensive, resume when tolerates
[2020-03-28] MEDS ORDERED: DEXTROSE 10%-WATER - 1,000 ML IV SCH ×2 (10:30→19:34)
[2020-03-28] MEDS ORDERED: VANCOMYCIN HCL 1,500 MG in DEXTROSE 5%-WATER - 500 ML IVPB ONE (10:30)
[2020-03-28 10:37] LABS: ARTERIAL BLD GAS O2 SATURATION 96.9 mmHg (95-98); ARTERIAL BLOOD GAS PO2 105.6 mmHg (80-100)
[2020-03-28 10:40] LABS: VENT RATE 25
[2020-03-28 10:46] LABS: ARTERIAL BLOOD GAS PO2 105.6 mmHg (80-100)
[2020-03-28 10:47] LABS: ARTERIAL BLD GAS O2 SATURATION 96.9 mmHg (95-98); VENT RATE 25
--- NOTE | 2020-03-28 10:59 | PROC ---
Intubation - Intubation Reason for Intubation: Respiratory Failure Time of Intubation: 08:40 Intubation Method: orotracheal Blade used: Glidescope Tube Size (cm): 7.5 Tube position @ lip (cm): 24 (at teeth) Post Intubation Xray: Yes Remarks: A time out was performed. I wore a mask with protective eyewear, and gloves throughout the procedure. The patient was placed on continuous cardiac and pulse oximetry monitoring. The patient received Midazolam for induction. Using a GlideScope for video laryngoscopy and an endotracheal tube (size 7.5) with stylet, the patient was intubated on the 1st attempt. The stylet was removed and cuff balloon was inflated. Appropriate endotracheal tube position was confirmed by direct visualization of vocal cord passage, fogging of the tube, CO2 return on continuous waveform capnography, and symmetric breath sounds. The tube was secured at 24 cm at the lips. Post intubation chest x-ray confirmed placement above destiny. Tube was retracted 2 cm for optimal positioning.
[2020-03-28] MEDS ORDERED: CEFEPIME 2 GM in DEXTROSE 5%-WATER 100 ML IVPB ONE (11:00)
[2020-03-28] MEDS: hydrALAZINE HCL 25 MG TABLET (FP) PO SCH (11:08)
[2020-03-28] MEDS: predniSONE 10 MG TABLET (UD) PO SCH (11:08)
[2020-03-28] MEDS: VERAPAMIL HCL 240 MG E.R. TABLET PO SCH (11:08)
[2020-03-28] MEDS: POLYETHYLENE GLYCOL 3350 119 GM BTL PO SCH (11:09)
[2020-03-28] MEDS: APIXABAN 2.5 MG TABLET PO SCH (11:09)
[2020-03-28] MEDS: METOPROLOL TARTRATE 50 MG TABLET (FP) PO SCH (11:09)
[2020-03-28] MEDS: FUROSEMIDE 40 MG TABLET (FP) PO SCH (11:09)
--- NOTE | 2020-03-28 11:21 | PN ---
Teaching Attending Note Name of Resident: Dayan Holland ATTENDING PHYSICIAN STATEMENT I saw and evaluated the patient. I reviewed the resident's note and discussed the case with the resident. I agree with the resident's findings and plan as documented. SUBJECTIVE: Pt seen and examined in the ICU. Transferred down after being found unrespo nsive. Hypoglycemic to 11. Hypotensive and tachycardic, started on pressors. OBJECTIVE: Vital Signs Period Temp Pulse Resp BP Sys/Salgado Pulse Ox Last 24 Hr 98.1 F-99.2 F 69-152 18-25 68-145/49-94 95-96 Intake & Output 03/25/20 03/26/20 03/27/20 03/28/20 23:59 23:59 23:59 23:59 Intake Total 776 632 1955 Output Total 578 322 3589 Balance 440 720 -920 Weight 78.925 kg 78.925 kg 78.471 kg 77.927 kg Gen: intubated, sedated Heart: tachycardic, irregular Lung: bilateral rhonchi Abd: soft, nontender Ext: + edema CMP Sodium 144 mmol/L (136-145) 03/28/20 08:05 Potassium 3.5 mmol/L (3.5-5.1) 03/28/20 08:05 Chloride 102 mmol/L (98-107) 03/28/20 08:05 Carbon Dioxide 31 mmol/L (21-32) 03/28/20 08:05 Anion Gap 11 MMOL/L (8-16) 03/28/20 08:05 BUN 78.1 mg/dL (7-18) H 03/28/20 08:05 Creatinine 4.9 mg/dL (0.55-1.3) H 03/28/20 08:05 Est GFR (CKD-EPI)AfAm 10.31 03/28/20 08:05 Est GFR (CKD-EPI)NonAf 8.89 03/28/20 08:05 Glucose 78 mg/dL (65-99) 03/22/20 07:10 POC Glucometer 68 UNITS (80-120) 03/28/20 10:40 Random Glucose 11 mg/dL (74-106) L* 03/28/20 08:05 Hemoglobin A1c % 4.7 % (4.2-6.3) 03/20/20 12:45 Calcium 8.0 mg/dL (8.5-10.1) L 03/28/20 08:05 Magnesium 2.1 mg/dL (1.8-2.4) 03/28/20 08:05 Iron 17 ug/dL (50-175) L 03/20/20 12:45 TIBC 210 ug/dL (250-450) L 03/20/20 12:45 Iron Saturation 8 % (17.5-39) L 03/20/20 12:45 Unsaturated IBC 193 ug/dL (200-275) L 03/20/20 12:45 Ferritin 77.9 ng/ml (8-388) 03/20/20 12:45 Total Bilirubin 1.8 mg/dL (0.2-1) H 03/28/20 08:05 Direct Bilirubin 1.2 mg/dL (0.0-0.2) H 03/24/20 06:18 GGT 57 IU/L (0-60) 03/22/20 07:10 AST 18 U/L (15-37) 03/28/20 08:05 ALT 20 U/L (13-61) 03/28/20 08:05 Alkaline Phosphatase 59 U/L (45-117) 03/28/20 08:05 Liver Fibrosis Score (.) 03/22/20 07:10 Liver Fib Fibro Score 0.81 (0.00-0.21) H 03/22/20 07:10 Liver Fibrosis Stage (.) 03/22/20 07:10 Liver Steatosis Score 0.77 (0.00-0.30) H 03/22/20 07:10 Liver Steatosis Grade (.) 03/22/20 07:10 Ammonia 27.00 umol/L (11-32) 03/27/20 12:05 Creatine Kinase 22 U/L (26-192) L 03/28/20 08:05 Troponin I 0.06 ng/ml (0.00-0.05) H 03/28/20 08:05 B-Natriuretic Peptide 47992.2 pg/ml (5-125) H 03/19/20 11:40 Total Protein 5.6 g/dl (6.4-8.2) L 03/28/20 08:05 Total Protein (PEP) 6.5 g/dL (6.0-8.5) 03/23/20 05:46 Albumin 2.2 g/dl (3.4-5.0) L 03/28/20 08:05 Albumin (PEP) 2.9 gm/dl (2.9-4.4) 03/23/20 05:46 Globulin 3.6 g/dL (2.2-3.9) 03/23/20 05:46 Albumin/Globulin Ratio 0.8 (0.7-1.7) 03/23/20 05:46 Mpkki-8-Swgzumbfsbtzk 139 mg/dL (110-276) 03/22/20 07:10 Beta Globulins 1.0 gm/dL (0.7-1.3) 03/23/20 05:46 Npuko-5-Scrwuyobiss 213 mg/dL (101-187) H 03/21/20 08:30 Triglycerides 81 mg/dL (0-149) 03/22/20 07:10 Cholesterol 107 mg/dL (100-199) 03/22/20 07:10 Apolipoprotein A-1 68 mg/dL (116-209) L 03/22/20 07:10 Tumor Marker AFP 1.5 ng/ml (0.0-8.3) 03/22/20 07:10 Vitamin B12 1395 pg/ml (193-986) H 03/20/20 12:45 TSH 1.06 uIU/ml (0.358-3.74) 03/20/20 12:45 Free T4 1.18 ng/dl (0.76-1.46) 03/20/20 12:45 Patient Height (cm) 63 in (.) 03/22/20 07:10 Patient Weight (kg) 189 LBS (.) 03/22/20 07:10 ABG Results ABG pH 7.270 (7.350-7.450) L 03/28/20 10:15 ABG HCO3 30.8 mmol/L (22-27) H 03/28/20 10:15 ABG O2 Sat (Measured) 96.9 mmHg (95-98) 03/28/20 10:15 ABG O2 Content No Result Required. 03/28/20 10:15 ABG Base Excess 3.0 mmol/L (-2-2) H 03/28/20 10:15 Active Medications Apixaban (Eliquis -) 2.5 mg PO BID [facility] Last Admin: 03/28/20 11:09 Dose: Not Given Documented by: Bupropion HCl (Wellbutrin Xl -) 300 mg PO DAILY [facility] Last Admin: 03/28/20 11:10 Dose: Not Given Documented by: Chlorhexidine Gluconate (Hibiclens For Decolonization -) 1 applic TP HS [facility] Docusate Sodium (Colace -) 100 mg PO BID PRN PRN Reason: CONSTIPATION Last Admin: 03/26/20 08:25 Dose: 100 mg Documented by: Furosemide (Lasix -) 40 mg PO DAILY [facility] Last Admin: 03/28/20 11:09 Dose: Not Given Documented by: Gabapentin (Neurontin -) 300 mg PO TID [facility] Last Admin: 03/28/20 06:13 Dose: 300 mg Documented by: Hydralazine HCl (Apresoline -) 50 mg PO BID [facility] Last Admin: 03/28/20 11:08 Dose: Not Given Documented by: Sodium Chloride (Normal Saline -) 250 mls @ 3,000 mls/hr IV PRN PRN PRN Reason: Hypotension during Dialysis Stop: 03/28/20 13:03 Fentanyl 500 mcg/ Dextrose 100 mls @ 0 mls/hr IVPB [facility] Vasopressin 40 units/ Sodium (Chloride) 100 mls @ 10 mls/hr IVPB ASDIR [facility]; Protocol Last Admin: 03/28/20 10:00 Dose: 4 units/hr, 10 mls/hr Documented by: Vancomycin HCl 1,500 mg/ (Dextrose) 500 mls @ 250 mls/hr IVPB ONCE ONE; Protocol Stop: 03/28/20 12:29 Cefepime HCl 2 gm/ Dextrose 100 mls @ 100 mls/hr IVPB ONCE ONE Stop: 03/28/20 11:59 Dextrose (D10w -) 1,000 mls @ 42 mls/hr IV ASDIR [facility] Lactulose (Cephulac (Oral Use)) 20 gm PO TID PRN PRN Reason: CONSTIPATION Last Admin: 03/26/20 08:25 Dose: 20 gm Documented by: Metoprolol Tartrate (Lopressor -) 50 mg PO BID [facility] Last Admin: 03/28/20 11:09 Dose: Not Given Documented by: Metoprolol Tartrate (Lopressor Injection -) 5 mg IVPUSH Q4H PRN PRN Reason: HYPERTENSION Last Admin: 03/28/20 07:40 Dose: 5 mg Documented by: Mupirocin (Bactroban Ointment (For Decolonization) -) 1 applic NS BID [facility] Stop: 04/02/20 09:59 Last Admin: 03/28/20 11:07 Dose: 1 appful Documented by: Polyethylene Glycol (Miralax (For Daily Use) -) 17 gm PO DAILY [facility] Last Admin: 03/28/20 11:09 Dose: Not Given Documented by: Prednisone (Deltasone -) 30 mg PO BID [facility] Last Admin: 03/28/20 11:08 Dose: Not Given Documented by: Senna (Senna -) 2 tab PO HS [facility] Last Admin: 03/27/20 21:51 Dose: 2 tab Documented by: Verapamil HCl (Calan Sr -) 240 mg PO DAILY [facility] Last Admin: 03/28/20 11:08 Dose: Not Given Documented by: ASSESSMENT AND PLAN: Acute on Chronic Hypoxic and Hypercapneic Respiratory Failure Acute on Chronic Diastolic Heart Failure Acute COPD Exacerbation Interstitial Lung Disease Acute on Chronic Renal Failure requiring HD Atrial Fibrillation with RVR Hypoglycemia r/o Septic Shock HTN DM h/o PE - rate control - titrate pressors to maintain MAP >65 - HD per renal - monitor urine output, creatinine - titrate FiO2, PEEP to keep Spo2 >90% - sedate for vent synchrony - monitor ABG - inhaled bronchodilators - resume medrol - moreno culture - start empiric antibiotics - dextrose gtt - monitor BGM - continue anticoagulation - continue ICU monitoring critical care time spent in reviewing chart, evaluating patient and formulating plan 35 min
[2020-03-28 11:22] LABS: HEMATOCRIT 27.2 % (32.4-45.2); HEMOGLOBIN 8.1 GM/dL (10.7-15.3); MCH 27.9 pg (25.7-33.7); MCHC 29.8 g/dl (32.0-36.0); MEAN CELL VOLUME 93.5 fl (80-96); MEAN PLT VOLUME 9.9 fl (7.5-11.1); PLATELET COUNT 58 K/MM3 (134-434); RDW 20.9 % (11.6-15.6); WHITE BLOOD COUNT 2.2 K/mm3 (4.0-10.0)
[2020-03-28] MEDS ORDERED: DEXTROSE 50%-WATER - 25 GM/50 ML VIAL ONE ×3 (11:28→16:28)
[2020-03-28 11:44] LABS: ALBUMIN 1.9 g/dl (3.4-5.0); BILIRUBIN,TOTAL 1.5 mg/dL (0.2-1); CALCIUM 7.8 mg/dL (8.5-10.1); POTASSIUM 3.2 mmol/L (3.5-5.1); TOT PROT 4.7 g/dl (6.4-8.2)
[2020-03-28] MEDS ORDERED: PT OWN MED DRAWER 7, Y5N ONE (11:46)
--- NOTE | 2020-03-28 12:05 | EKG ---
Test Reason : Blood Pressure : / mmHG Vent. Rate : 133 BPM Atrial Rate : 133 BPM P-R Int : 000 ms QRS Dur : 110 ms QT Int : 326 ms P-R-T Axes : 000 -62 122 degrees QTc Int : 485 ms ATRIAL FIBRILLATION WITH RAPID VENTRICULAR RESPONSE LEFT ANTERIOR FASCICULAR BLOCK ABNORMAL QRS-T ANGLE, CONSIDER PRIMARY T WAVE ABNORMALITY ABNORMAL ECG WHEN COMPARED WITH ECG OF 19-MAR-2020 12:12, ATRIAL FIBRILLATION HAS REPLACED SINUS RHYTHM VENT. RATE HAS INCREASED BY 81 BPM MINIMAL CRITERIA FOR ANTERIOR INFARCT ARE NO LONGER PRESENT Confirmed by Lalo Zamudio MD ([id number]) on 03/28/2020 12:04:40 PM Referred By: Enriqueta ESTES Confirmed By:Lalo Zamudio MD
[2020-03-28 13:25] LABS: ANISOCYTOSIS 1+; MACROCYTOSIS 1+; PLATELET ESTIMATE DECREASED
--- NOTE | 2020-03-28 13:29 | PN ---
Progress Note (short form) - Note Progress Note: ID CONSULT DICTATED SEPTIC SHOCK RESP FAILURE HYPOGLYCEMIA SECONDARY TO SEPSIS LEUKOPENIA/ THROMBOCYTOPENIA SECONDARY TO SEPSIS RENAL FAILURE EXACERBATION COPD CHF ILD PCN ALLERGY AWAIT SEPSIS W/U VENTILATORY/ HEMODYNAMIC SUPPORT EMPIRIC VANCOMYCIN/ CEFEPIME PROGNOSIS GUARDED CRITICAL CARE TIME 35MIN
[2020-03-28] MEDS ORDERED: FENTANYL IVPB 500 MCG/100 ML BAG IVPB ONE ×2 (14:18→20:02)
--- NOTE | 2020-03-28 14:30 | PN ---
Progress Note, Physician History of Present Illness: Pt seen and examined at bedside. She was intubated this morning for worsening resp failure. - Current Medication List Current Medications: Active Medications Apixaban (Eliquis -) 2.5 mg PO BID [facility] Last Admin: 03/28/20 11:09 Dose: Not Given Documented by: Bupropion HCl (Wellbutrin Xl -) 300 mg PO DAILY [facility] Last Admin: 03/28/20 11:10 Dose: Not Given Documented by: Chlorhexidine Gluconate (Hibiclens For Decolonization -) 1 applic TP HS [facility] Docusate Sodium (Colace -) 100 mg PO BID PRN PRN Reason: CONSTIPATION Last Admin: 03/26/20 08:25 Dose: 100 mg Documented by: Furosemide (Lasix -) 40 mg PO DAILY [facility] Last Admin: 03/28/20 11:09 Dose: Not Given Documented by: Gabapentin (Neurontin -) 300 mg PO TID JOLENE Last Admin: 03/28/20 06:13 Dose: 300 mg Documented by: Hydralazine HCl (Apresoline -) 50 mg PO BID JOLENE Last Admin: 03/28/20 11:08 Dose: Not Given Documented by: Sodium Chloride (Normal Saline -) 250 mls @ 3,000 mls/hr IV PRN PRN PRN Reason: Hypotension during Dialysis Stop: 03/28/20 13:03 Fentanyl 500 mcg/ Dextrose 100 mls @ 15 mls/hr IVPB TITR JOLENE; Protocol Last Admin: 03/28/20 14:21 Dose: 100 mcg/hr, 20 mls/hr Documented by: Vasopressin 40 units/ Sodium (Chloride) 100 mls @ 10 mls/hr IVPB ASDIR JOLENE; Protocol Last Admin: 03/28/20 10:00 Dose: 4 units/hr, 10 mls/hr Documented by: Dextrose (D10w -) 1,000 mls @ 42 mls/hr IV ASDIR JOLENE Last Admin: 03/28/20 11:30 Dose: 42 mls/hr Documented by: Cefepime HCl 1 gm/ Dextrose 100 mls @ 200 mls/hr IVPB BID JOLENE; Protocol Lactulose (Cephulac (Oral Use)) 20 gm PO TID PRN PRN Reason: CONSTIPATION Last Admin: 03/26/20 08:25 Dose: 20 gm Documented by: Metoprolol Tartrate (Lopressor -) 50 mg PO BID [facility] Last Admin: 03/28/20 11:09 Dose: Not Given Documented by: Metoprolol Tartrate (Lopressor Injection -) 5 mg IVPUSH Q4H PRN PRN Reason: HYPERTENSION Last Admin: 03/28/20 07:40 Dose: 5 mg Documented by: Mupirocin (Bactroban Ointment (For Decolonization) -) 1 applic NS BID [facility] Stop: 04/02/20 09:59 Last Admin: 03/28/20 11:07 Dose: 1 appful Documented by: Polyethylene Glycol (Miralax (For Daily Use) -) 17 gm PO DAILY [facility] Last Admin: 03/28/20 11:09 Dose: Not Given Documented by: Prednisone (Deltasone -) 30 mg PO BID [facility] Last Admin: 03/28/20 11:08 Dose: Not Given Documented by: Senna (Senna -) 2 tab PO HS [facility] Last Admin: 03/27/20 21:51 Dose: 2 tab Documented by: Verapamil HCl (Calan Sr -) 240 mg PO DAILY [facility] Last Admin: 03/28/20 11:08 Dose: Not Given Documented by: - Objective Vital Signs: Vital Signs Temperature 98.2 F 03/28/20 01:30 Pulse Rate 114 H 03/28/20 10:00 Respiratory Rate 30 H 03/28/20 12:01 Blood Pressure 68/49 L 03/28/20 10:00 O2 Sat by Pulse Oximetry (%) 95 03/28/20 12:01 Constitutional: Yes: Calm Eyes: Yes: Conjunctiva Clear HENT: Yes: Atraumatic Neck: Yes: Supple Cardiovascular: Yes: S1, S2 Respiratory: Yes: Mechanically Ventilated Gastrointestinal: Yes: Soft Genitourinary: Yes: WNL Musculoskeletal: Yes: WNL Edema: Yes Edema: LLE: 2+, RLE: 2+ Integumentary: Yes: Venous Stasis Changes Labs: CBC, BMP 03/28/20 10:32 03/28/20 10:32 INR, PTT INR 1.61 (0.83-1.09) H 03/22/20 07:10 Problem List - Problems (1) Anemia Code(s): D64.9 - ANEMIA, UNSPECIFIED (2) CHF (congestive heart failure) Code(s): I50.9 - HEART FAILURE, UNSPECIFIED Qualifiers: (3) JOSEPH (acute kidney injury) Code(s): N17.9 - ACUTE KIDNEY FAILURE, UNSPECIFIED (4) Afib Code(s): I48.91 - UNSPECIFIED ATRIAL FIBRILLATION Qualifiers: Atrial fibrillation type: unspecified Qualified Code(s): I48.91 - Unspecified atrial fibrillation (5) CHF (congestive heart failure) Code(s): I50.9 - HEART FAILURE, UNSPECIFIED Qualifiers: Heart failure type: diastolic Heart failure chronicity: unspecified Qualified Code(s): I50.30 - Unspecified diastolic (congestive) heart failure (6) CKD (chronic kidney disease) Code(s): N18.9 - CHRONIC KIDNEY DISEASE, UNSPECIFIED Assessment/Plan Current Medications Generic Name Dose Route Start Last Admin Trade Name Freq PRN Reason Stop Dose Admin Apixaban 2.5 mg 03/19/20 22:00 03/28/20 11:09 Eliquis - PO Not Given BID JOLENE Bupropion HCl 300 mg 03/20/20 10:00 03/28/20 11:10 Wellbutrin Xl - PO Not Given DAILY JOLENE Chlorhexidine Gluconate 1 applic 03/28/20 22:00 Hibiclens For Decolonization - TP HS JOLENE Docusate Sodium 100 mg 03/19/20 13:38 03/26/20 08:25 Colace - PO 100 mg BID PRN Administration CONSTIPATION Furosemide 40 mg 03/27/20 10:00 03/28/20 11:09 Lasix - PO Not Given DAILY JOLENE Gabapentin 300 mg 03/19/20 14:00 03/28/20 06:13 Neurontin - PO 300 mg TID JOLENE Administration Hydralazine HCl 50 mg 03/19/20 22:00 03/28/20 11:08 Apresoline - PO Not Given BID JOLENE Sodium Chloride 250 mls @ 3,000 mls/hr 03/27/20 13:03 Normal Saline - IV 03/28/20 13:03 PRN PRN Hypotension during Dialysis Fentanyl 500 mcg/ Dextrose 100 mls @ 15 mls/hr 03/28/20 09:00 03/28/20 14:21 IVPB 100 mcg/hr TITR JOLENE 20 mls/hr Administration Protocol 75 MCG/HR Vasopressin 40 units/ Sodium 100 mls @ 10 mls/hr 03/28/20 09:50 03/28/20 10:00 Chloride IVPB 4 units/hr ASDIR JOLENE 10 mls/hr Administration Protocol 4 UNITS/HR Dextrose 1,000 mls @ 42 mls/hr 03/28/20 10:30 03/28/20 11:30 D10w - IV 42 mls/hr ASDIR JOLENE Administration Cefepime HCl 1 gm/ Dextrose 100 mls @ 200 mls/hr 03/28/20 22:00 IVPB BID JOLENE Protocol Lactulose 20 gm 03/23/20 06:54 03/26/20 08:25 Cephulac (Oral Use) PO 20 gm TID PRN Administration CONSTIPATION Metoprolol Tartrate 50 mg 03/19/20 22:00 03/28/20 11:09 Lopressor - PO Not Given BID JOLENE Metoprolol Tartrate 5 mg 03/28/20 07:30 03/28/20 07:40 Lopressor Injection - IVPUSH 5 mg Q4H PRN Administration HYPERTENSION Mupirocin 1 applic 03/28/20 10:00 03/28/20 11:07 Bactroban Ointment (For Decolonization) - NS 04/02/20 09:59 1 appful BID JOLENE Administration Polyethylene Glycol 17 gm 03/20/20 12:45 03/28/20 11:09 Miralax (For Daily Use) - PO Not Given DAILY JOLENE Prednisone 30 mg 03/27/20 10:00 03/28/20 11:08 Deltasone - PO Not Given BID JOLENE Senna 2 tab 03/20/20 22:00 03/27/20 21:51 Senna - PO 2 tab HS JOLENE Administration Verapamil HCl 240 mg 03/20/20 10:00 03/28/20 11:08 Calan Sr - PO Not Given DAILY JOLENE Impression 1. CKD 2. CHF 3. a-fib 4. lower ext edema 5. COPD 6. active smoker 7. non compliance 8. dyspnea 9. hyperkalemia 10. hypoglycemia 11. resp failure Plan - pt tolerated HD yesterday - next HD tomorrow - rate control - pressors to map of 65 - cont vent support - discussed with ICU team - cont to monitor volume status and renal function - monitor urine output - cont ICU care
[2020-03-28] MEDS ORDERED: GLUCAGON 1 MG KIT IM ONE (14:45)
[2020-03-28] MEDS ORDERED: KCL 10 MEQ IVPB 10 MEQ/100 ML INFUS.BAG IVPB SCH (15:00)
[2020-03-28] MEDS ORDERED: methylPREDNISolone NA SUCC 40 MG/1 ML VIAL IVPUSH SCH (16:30)
--- NOTE | 2020-03-28 16:38 | CONSULT ---
Consultation: REQUESTING PROVIDER: Dr. Carlin CONSULT REQUEST: We have been asked to medically evaluate this patient for AMS. HISTORY OF PRESENT ILLNESS: Pt is a 59 y/o female with afib (on Eliquis), HfpEF, HTN, asthma (intubated previously), prior PE, pulmonary fibrosis, sleep apnea, CKD, OA, NIDDM, COPD (on 2L home oxygen) who presented on 03/20/20 for shortness of breath and b/l lower extremity swelling. This morning, the pt was found minimally responsive with difficulty breathing and was in a-fib with RVR. She was placed on NRB with improvement in saturation, but she was unable to protect her airway properly and was transferred to ICU for intubation. REVIEW OF SYSTEMS: unable to perform PHYSICAL EXAMINATION Vital Signs - 24 hr 03/27/20 03/27/20 03/27/20 16:55 18:00 18:30 Temperature 98.3 F Pulse Rate 94 H 81 69 Respiratory 18 20 18 Rate Blood Pressure 124/68 130/67 118/94 O2 Sat by Pulse Oximetry (%) 03/27/20 03/27/20 03/27/20 19:00 19:30 20:00 Temperature Pulse Rate 80 92 H 80 Respiratory 18 18 18 Rate Blood Pressure 133/78 140/73 126/76 O2 Sat by Pulse Oximetry (%) 03/27/20 03/27/20 03/27/20 20:30 20:35 21:00 Temperature Pulse Rate 82 81 Respiratory 18 18 Rate Blood Pressure 130/71 133/77 O2 Sat by Pulse 96 Oximetry (%) 03/27/20 03/28/20 03/28/20 21:48 01:30 06:44 Temperature 98.1 F 98.2 F Pulse Rate 96 H 96 H 144 H Respiratory 20 20 Rate Blood Pressure 128/77 136/76 106/56 L O2 Sat by Pulse 95 Oximetry (%) 03/28/20 03/28/20 03/28/20 07:40 09:28 10:00 Temperature Pulse Rate 152 H 114 H Respiratory 25 H Rate Blood Pressure 124/76 68/49 L O2 Sat by Pulse 96 Oximetry (%) 03/28/20 03/28/20 03/28/20 12:01 15:46 15:49 Temperature Pulse Rate 124 H Respiratory 30 H 30 H Rate Blood Pressure O2 Sat by Pulse 95 95 95 Oximetry (%) GENERAL: Minimally responsive to sternal rub. HEAD: Normal with no signs of trauma. EYES: Pupils equal, round and reactive to light, extraocular movements intact, conjunctiva clear. EARS, NOSE, THROAT: Ears normal, nares patent, moist mucous membranes. NECK: Normal range of motion. LUNGS: Chest rise and fall equal on both sides. HEART: a-fib with RVR. ABDOMEN: B/l sides firm on palpation. UPPER EXTREMITIES: Warm, well-perfused. No cyanosis. +1 pitting edema b/l to elbows. LOWER EXTREMITIES: Warm, well-perfused. +1 pitting edema to thighs b/l. NEUROLOGICAL: Unable to assess. PSYCHIATRIC: Unable to assess. SKIN: Warm, dry, decreased skin turgor. Laboratory Results - last 24 hr 03/23/20 03/23/20 03/28/20 05:46 05:46 08:05 WBC Corrected WBC (auto) RBC Hgb Hct MCV MCH MCHC RDW Plt Count MPV Absolute Neuts (auto) Neutrophils % Neutrophils % (Manual) Band Neutrophils % Lymphocytes % Lymphocytes % (Manual) Monocytes % Monocytes % (Manual) Eosinophils % Eosinophils % (Manual) Basophils % Basophils % (Manual) Myelocytes % (Man) Promyelocytes % (Man) Blast Cells % (Manual) Nucleated RBC % Metamyelocytes Hypochromia Platelet Estimate Platelet Comment Polychromasia Poikilocytosis Anisocytosis Microcytosis Macrocytosis Anticoagulation Therapy Puncture Site Patient Temperature ABG pH ABG pCO2 ABG pO2 ABG HCO3 ABG O2 Sat (Measured) ABG O2 Content ABG Base Excess Randy Test Patient On Oxygen O2 Delivery Device Oxygen Flow Rate Vent Mode Vent Rate Mechanical Rate PEEP Pressure Support Vent Sodium 144 Potassium 3.5 Chloride 102 Carbon Dioxide 31 Anion Gap 11 BUN 78.1 H Creatinine 4.9 H Est GFR (CKD-EPI)AfAm 10.31 Est GFR (CKD-EPI)NonAf 8.89 POC Glucometer Random Glucose 11 L* Calcium 8.0 L Magnesium 2.1 Total Bilirubin 1.8 H AST 18 ALT 20 Alkaline Phosphatase 59 Creatine Kinase 22 L Troponin I 0.06 H Total Protein 5.6 L Total Protein (PEP) 6.5 Albumin 2.2 L Albumin (PEP) 2.9 Globulin 3.6 Albumin/Globulin Ratio 0.8 Beta Globulins 1.0 MITCHEL M-Gerardo Not observed c-ANCA <1:20 Proteinase 3 (PR3) 4.8 H p-ANCA <1:20 Atypical p-ANCA <1:20 Myeloperoxidase Ab <9.0 03/28/20 03/28/20 03/28/20 08:25 09:33 10:00 WBC Cancelled Corrected WBC (auto) Cancelled RBC Cancelled Hgb Cancelled Hct Cancelled MCV Cancelled MCH Cancelled MCHC Cancelled RDW Cancelled Plt Count Cancelled MPV Cancelled Absolute Neuts (auto) Cancelled Neutrophils % Cancelled Neutrophils % (Manual) Band Neutrophils % Lymphocytes % Cancelled Lymphocytes % (Manual) Monocytes % Cancelled Monocytes % (Manual) Eosinophils % Cancelled Eosinophils % (Manual) Basophils % Cancelled Basophils % (Manual) Myelocytes % (Man) Promyelocytes % (Man) Blast Cells % (Manual) Nucleated RBC % Cancelled Metamyelocytes Hypochromia Platelet Estimate Cancelled Platelet Comment Cancelled Polychromasia Poikilocytosis Anisocytosis Microcytosis Macrocytosis Anticoagulation Therapy No Result Required. Puncture Site Right radial Patient Temperature No Result Required. ABG pH 7.270 L ABG pCO2 68.70 H ABG pO2 105.6 H ABG HCO3 30.8 H ABG O2 Sat (Measured) 96.9 ABG O2 Content No Result Required. ABG Base Excess 3.0 H Randy Test No Result Required. Patient On Oxygen Yes O2 Delivery Device V Oxygen Flow Rate 60 Vent Mode No Result Required. Vent Rate 25 Mechanical Rate No Result Required. PEEP 8.0 Pressure Support Vent 400 Sodium Potassium Chloride Carbon Dioxide Anion Gap BUN Creatinine Est GFR (CKD-EPI)AfAm Est GFR (CKD-EPI)NonAf POC Glucometer < 10 Random Glucose Calcium Magnesium Total Bilirubin AST ALT Alkaline Phosphatase Creatine Kinase Troponin I Total Protein Total Protein (PEP) Albumin Albumin (PEP) Globulin Albumin/Globulin Ratio Beta Globulins MITCHEL M-Gerardo c-ANCA Proteinase 3 (PR3) p-ANCA Atypical p-ANCA Myeloperoxidase Ab 03/28/20 03/28/20 03/28/20 10:15 10:32 10:32 WBC 2.2 L Corrected WBC (auto) RBC 2.90 L Hgb 8.1 L Hct 27.2 L MCV 93.5 MCH 27.9 MCHC 29.8 L RDW 20.9 H Plt Count 58 L D MPV 9.9 D Absolute Neuts (auto) Neutrophils % No Result Required. Neutrophils % (Manual) 49.5 Band Neutrophils % 0.0 Lymphocytes % No Result Required. Lymphocytes % (Manual) 20.8 Monocytes % Monocytes % (Manual) 11 H Eosinophils % Eosinophils % (Manual) 4.0 D Basophils % Basophils % (Manual) 0.0 Myelocytes % (Man) 8 H D Promyelocytes % (Man) 0 Blast Cells % (Manual) 0 Nucleated RBC % 5 H Metamyelocytes 6 H D Hypochromia 0 Platelet Estimate Decreased Platelet Comment Polychromasia 0 Poikilocytosis 1+ Anisocytosis 1+ Microcytosis 1+ Macrocytosis 1+ Anticoagulation Therapy No Result Required. Puncture Site Right radial Patient Temperature No Result Required. ABG pH 7.270 L ABG pCO2 68.70 H ABG pO2 105.6 H ABG HCO3 30.8 H ABG O2 Sat (Measured) 96.9 ABG O2 Content No Result Required. ABG Base Excess 3.0 H Randy Test No Result Required. Patient On Oxygen Yes O2 Delivery Device V Oxygen Flow Rate 60 Vent Mode No Result Required. Vent Rate 25 Mechanical Rate No Result Required. PEEP 8.0 Pressure Support Vent 400 Sodium 144 Potassium 3.2 L Chloride 102 Carbon Dioxide 31 Anion Gap 11 BUN 81.0 H Creatinine 5.0 H Est GFR (CKD-EPI)AfAm 10.06 Est GFR (CKD-EPI)NonAf 8.68 POC Glucometer Random Glucose 80 Calcium 7.8 L Magnesium 2.0 Total Bilirubin 1.5 H AST 22 ALT 16 Alkaline Phosphatase 54 Creatine Kinase 18 L Troponin I 0.07 H Total Protein 4.7 L Total Protein (PEP) Albumin 1.9 L Albumin (PEP) Globulin Albumin/Globulin Ratio Beta Globulins MITCHEL M-Gerardo c-ANCA Proteinase 3 (PR3) p-ANCA Atypical p-ANCA Myeloperoxidase Ab 03/28/20 03/28/20 10:40 14:35 WBC Corrected WBC (auto) RBC Hgb Hct MCV MCH MCHC RDW Plt Count MPV Absolute Neuts (auto) Neutrophils % Neutrophils % (Manual) Band Neutrophils % Lymphocytes % Lymphocytes % (Manual) Monocytes % Monocytes % (Manual) Eosinophils % Eosinophils % (Manual) Basophils % Basophils % (Manual) Myelocytes % (Man) Promyelocytes % (Man) Blast Cells % (Manual) Nucleated RBC % Metamyelocytes Hypochromia Platelet Estimate Platelet Comment Polychromasia Poikilocytosis Anisocytosis Microcytosis Macrocytosis Anticoagulation Therapy Puncture Site Patient Temperature ABG pH ABG pCO2 ABG pO2 ABG HCO3 ABG O2 Sat (Measured) ABG O2 Content ABG Base Excess Randy Test Patient On Oxygen O2 Delivery Device Oxygen Flow Rate Vent Mode Vent Rate Mechanical Rate PEEP Pressure Support Vent Sodium Potassium Chloride Carbon Dioxide Anion Gap BUN Creatinine Est GFR (CKD-EPI)AfAm Est GFR (CKD-EPI)NonAf POC Glucometer 68 76 Random Glucose Calcium Magnesium Total Bilirubin AST ALT Alkaline Phosphatase Creatine Kinase Troponin I Total Protein Total Protein (PEP) Albumin Albumin (PEP) Globulin Albumin/Globulin Ratio Beta Globulins MITCHEL M-Gerardo c-ANCA Proteinase 3 (PR3) p-ANCA Atypical p-ANCA Myeloperoxidase Ab Active Medications Generic Name Dose Route Start Last Admin Trade Name Freq PRN Reason Stop Dose Admin Apixaban 2.5 mg 03/19/20 22:00 03/28/20 11:09 Eliquis - PO Not Given BID JOLENE Bupropion HCl 300 mg 03/20/20 10:00 03/28/20 11:10 Wellbutrin Xl - PO Not Given DAILY JOLENE Chlorhexidine Gluconate 1 applic 03/28/20 22:00 Hibiclens For Decolonization - TP HS JOLENE Docusate Sodium 100 mg 03/19/20 13:38 03/26/20 08:25 Colace - PO 100 mg BID PRN Administration CONSTIPATION Furosemide 40 mg 03/27/20 10:00 03/28/20 11:09 Lasix - PO Not Given DAILY JOLENE Gabapentin 300 mg 03/19/20 14:00 03/28/20 06:13 Neurontin - PO 300 mg TID JOLENE Administration Hydralazine HCl 50 mg 03/19/20 22:00 03/28/20 11:08 Apresoline - PO Not Given BID JOLENE Sodium Chloride 250 mls @ 3,000 mls/hr 03/27/20 13:03 Normal Saline - IV 03/28/20 13:03 PRN PRN Hypotension during Dialysis Fentanyl 500 mcg/ Dextrose 100 mls @ 15 mls/hr 03/28/20 09:00 03/28/20 14:21 IVPB 100 mcg/hr TITR JOLENE 20 mls/hr Administration Protocol 75 MCG/HR Vasopressin 40 units/ Sodium 100 mls @ 10 mls/hr 03/28/20 09:50 03/28/20 10:00 Chloride IVPB 4 units/hr ASDIR JOLENE 10 mls/hr Administration Protocol 4 UNITS/HR Dextrose 1,000 mls @ 42 mls/hr 03/28/20 10:30 03/28/20 11:30 D10w - IV 42 mls/hr ASDIR JOLENE Administration Cefepime HCl 1 gm/ Dextrose 100 mls @ 200 mls/hr 03/28/20 22:00 IVPB BID JOLENE Protocol Lactulose 20 gm 03/23/20 06:54 03/26/20 08:25 Cephulac (Oral Use) PO 20 gm TID PRN Administration CONSTIPATION Metoprolol Tartrate 50 mg 03/19/20 22:00 03/28/20 11:09 Lopressor - PO Not Given BID JOLENE Metoprolol Tartrate 5 mg 03/28/20 07:30 03/28/20 07:40 Lopressor Injection - IVPUSH 5 mg Q4H PRN Administration HYPERTENSION Mupirocin 1 applic 03/28/20 10:00 03/28/20 11:07 Bactroban Ointment (For Decolonization) - NS 04/02/20 09:59 1 appful BID JOLENE Administration Polyethylene Glycol 17 gm 03/20/20 12:45 03/28/20 11:09 Miralax (For Daily Use) - PO Not Given DAILY JOLENE Prednisone 30 mg 03/27/20 10:00 03/28/20 11:08 Deltasone - PO Not Given BID JOLENE Senna 2 tab 03/20/20 22:00 03/27/20 21:51 Senna - PO 2 tab HS JOLENE Administration Verapamil HCl 240 mg 03/20/20 10:00 03/28/20 11:08 Calan Sr - PO Not Given DAILY JOLENE ASSESSMENT/PLAN: Pt is a 59 y/o female with afib (on Eliquis), HfpEF, HTN, asthma (intubated previously), prior PE, pulmonary fibrosis, sleep apnea, CKD, OA, NIDDM, COPD (on 2L home oxygen) who presented on 03/20/20 for shortness of breath and b/l lower extremity swelling. This morning, the pt was found minimally responsive with difficulty breathing. She was placed on NRB with improvement in saturation, but she was unable to protect her airway properly and was transferred to ICU for intubation. #neuro -sedated on fentanyl -continue gabapentin TID (seizure risk) #cardio HFpEF HTN a-fib with RVR -MAP was low after intubation -vasopressin being titrated down -hold metoprolol with low pressures -keep MAP >65 -consider central line if pt not improved tomorrow -cardiology following #pulm acute hypercanpeic respiratory failure COPD on 2L at home hx intubations hx PE pulmonary fibrosis -intubated -VC 370/30/60/8, 320/20/60/8 after possible response to solu-medrol? -keep sat >88 -ABG improved after intubation #renal JOSEPH on CKD hypokalemia 3.2 -first HD yesterday -Cr 5.9-->5.0 -replete K -nephrology following #endo persistent sudden onset hypoglycemia- BMP glucose was 11 today; insulinoma vs linagliptin use at home (has not taken since admission but could be in system because of renal insufficiency?) vs septic shock NIDDM -minimally responsive to D5W amps x5 throughout the day -BGMs -ACTH, proinsulin, and cortisol levels -solu-medrol 40mg Q8H -endocrine consulted #ID ?septic shock PCN allergy -blood cultures pending -empiric cefepime -empiric vancomycin -ID following #heme/onc pancytopenia possibly 2/2 sepsis -monitor CBC #psych -continue Wellbutrin (risk of seizure) #GI -bowel regimen DVT Ppx Eliquis 2.5mg BID FEN D10W @42mL/hr monitor K NPO except meds ET tube 03/28 NG tube 03/28 Dispo: ICU We will continue to follow the patient. Thank you for this consultative opportunity. Visit type - Emergency Visit Emergency Visit: Yes ED Registration Date: 03/19/20 Care time: The patient presented to the Emergency Department on the above date and was hospitalized for further evaluation of their emergent condition. - New Patient This patient is new to me today: Yes Date on this admission: 03/28/20 - Critical Care Critical Care patient: Yes Total Critical Care Time (in minutes): 36 Critical Care Statement: The care of this patient involved high complexity decision making to prevent further life threatening deterioration of the patient's condition and/or to evaluate & treat vital organ system(s) failure or risk of failure. ATTENDING PHYSICIAN STATEMENT I saw and evaluated the patient. I reviewed the resident's note and discussed the case with the resident. I agree with the resident's findings and plan as documented. SUBJECTIVE: OBJECTIVE: ASSESSMENT AND PLAN:
[2020-03-28] MEDS ORDERED: SODIUM CHLORIDE 250 ML IV PRN (19:34)
[2020-03-28] MEDS ORDERED: DOCUSATE SODIUM 100 MG CAPSULE (FP) PO PRN (19:34)
[2020-03-28] MEDS ORDERED: LACTULOSE 20 GM/30 ML UDC (FOR ORAL USE ONLY) PO PRN (19:34)
[2020-03-28 19:44] VITALS: TEMP 97.7
[2020-03-28] MEDS ORDERED: NOREPINEPHRINE BITARTRATE 4 MG/4 ML ML IV ONE (20:03)
[2020-03-28] MEDS ORDERED: ATROPINE SULFATE 1 MG/10 ML DISP.SYRIN ONE (20:09)
[2020-03-28] MEDS ORDERED: NOREPINEPHRINE D5W PREMIX 16,000 MCG/500 ML BAG IVPB SCH (20:15)
[2020-03-28] MEDS: methylPREDNISolone NA SUCC 40 MG/1 ML VIAL IVPUSH SCH ×2 (20:23→21:17)
[2020-03-28] MEDS ORDERED: PHENYLEPHRINE HCL 10,000 MCG in DEXTROSE 5%-WATER - 499 ML IV SCH (21:00)
[2020-03-28] MEDS ORDERED: PHENYLEPHRINE HCL 10 MG/1 ML SINGLE DOSE VIAL ONE (21:07)
[2020-03-28] MEDS ORDERED: PHENYLEPHRINE NS PREMIX 50,000 MCG/500 ML BAG CVP SCH (21:15)
[2020-03-28] MEDS ORDERED: EPINEPHrine 1:10,000 (P-F SYR) 1 MG/10 ML DISP.SYRIN ONE (21:34)
[2020-03-28] MEDS ORDERED: hydrALAZINE HCL 25 MG TABLET (FP) PO SCH (22:00)
[2020-03-28] MEDS ORDERED: APIXABAN 2.5 MG TABLET PO SCH (22:00)
[2020-03-28] MEDS ORDERED: METOPROLOL TARTRATE 50 MG TABLET (FP) PO SCH (22:00)
[2020-03-28] MEDS ORDERED: GABAPENTIN 300 MG CAPSULE PO SCH (22:00)
[2020-03-28] MEDS ORDERED: CHLORHEXIDINE GLUCONATE 4% CLEANSER FOR DECOLONIZATION TP SCH ×2 (22:00)
[2020-03-28] MEDS ORDERED: CEFEPIME 1 GM in DEXTROSE 5%-WATER 100 ML IVPB SCH (22:00)
[2020-03-28] MEDS ORDERED: SENNOSIDES 8.6MG TABLET (FP) PO SCH (22:00)
[2020-03-28 22:09] LABS: ALBUMIN 1.4 g/dl (3.4-5.0); BILIRUBIN,TOTAL 1.6 mg/dL (0.2-1); BLOOD UREA NITROGEN 79.8 mg/dL (7-18); CREATININE 5.3 mg/dL (0.55-1.3); TOT PROT 4.3 g/dl (6.4-8.2)
[2020-03-28 22:11] LABS: POTASSIUM 7.1 mmol/L (3.5-5.1)
[2020-03-28] MEDS ORDERED: CALCIUM GLUCONATE 10% - 1,000 MG/10 ML VIAL ONE (22:14)
[2020-03-28] MEDS ORDERED: DEXTROSE 5%-WATER 100 ML IVPB ONE ×2 (22:15→23:32)
[2020-03-28] MEDS ORDERED: CEFEPIME HCL 1 GM VIAL (RESTRICTED TO ID) ONE (22:15)
[2020-03-28] MEDS ORDERED: DOBUTAMINE 250 MG/D5W - 250,000 MCG/250 ML INFUS.BAG ONE (22:22)
[2020-03-28] MEDS ORDERED: DOPAMINE 400 MG/D5W - 400,000 MCG/250 ML INFUS.BAG IVPB SCH (22:30)
--- NOTE | 2020-03-28 22:50 | CONS ---
DATE OF CONSULTATION: DATE OF DICTATION: 03/28/2020 INFECTIOUS DISEASE CONSULTATION HISTORY OF PRESENT ILLNESS: The patient is a 59-year-old female with a history of heart and lung disease evaluated for septic shock. History was obtained from the chart, as she is presently intubated in the intensive care unit on mechanical ventilation, and hypotensive on pressors. The patient was admitted to the hospital on March 19, 2020, with worsening edema. She was diagnosed with decompensated congestive heart failure. Her course was complicated by acute on chronic renal failure. She was noted to have elevated liver enzymes which was attributed to passive congestion from congestive heart failure. The patient suddenly became unresponsive on the floor and rapid response was called. She required intubation and transfer to the intensive care unit . She was noted to be profoundly hypoglycemic with a blood sugar of 11. She was also hypotensive, tachycardic. She was transferred to the intensive care unit where she is now on mechanical ventilation and pressors. Chest x-ray shows increased markings bilaterally. She was empirically treated with vancomycin and cefepime. PAST MEDICAL HISTORY: Positive for atrial fibrillation, congestive heart failure, hypertension, asthma, pulmonary embolism, pulmonary fibrosis, obstructive sleep apnea, chronic kidney disease, diabetes mellitus, COPD. ALLERGIES: MORPHINE, PENICILLIN. Patient develops hives with PENICILLIN; however has tolerated cephalosporins in the past. MEDICATION: Include: 1. Cefepime. 2. Vancomycin. 3. Eliquis. 4. Diltiazem. 5. Hydralazine. 6. Metoprolol. 7. Verapamil. 8. Neurontin. 9. Versed. SOCIAL HISTORY: She resides in the community. Positive history of tobacco use. SYSTEMS REVIEW: Neurologic: No loss of consciousness, seizure activity, focal weakness. Cardiac: As per HPI. Respiratory: As per HPI. Gastrointestinal: Negative vomiting or diarrhea. Genitourinary: Negative for urinary tract infection. LABORATORY DATA: White count 2.2 with 49% neutrophils, 20% lymphocytes, 11% monocytes. Hematocrit 27.2, platelets 58. BUN 81, creatinine 5.0. Liver enzymes: total bilirubin 1.5, alkaline phosphatase 54, AST 22. COVID-19 screen negative. Chest x-ray shows increased markings bilaterally. PHYSICAL EXAMINATION: General: On exam, she is unresponsive on the ventilator. Vital signs: Temperature 98.2, blood pressure 68/49, pulse 114 regular, respirations 24 per minute. HEENT: Sclerae anicteric. Patient is orally intubated. Cardiovascular: Heart sounds S1, S2. Lungs: Air entry bilaterally. Abdomen: Soft, nontender. Obese Extremities: 2+ pedal edema bilaterally. IMPRESSION: 1. Septic shock. 2. Respiratory failure. 3. Hypoglycemia secondary to sepsis. 4. Leukopenia, thrombocytopenia secondary to sepsis. 5. Renal failure. 6. Exacerbation of chronic obstructive pulmonary disease. 7. Congestive heart failure . 8. Interstitial lung disease. 9. PENICILLIN allergy. Await sepsis workup. Continue ventilatory and hemodynamic support. Empiric antibiotic coverage with vancomycin and cefepime. Prognosis is guarded. Critical care time spent 35 minutes. Thank you for the kind referral. LAKEISHA TORRES M.D. BLAS/[id number]
[2020-03-28] MEDS ORDERED: CALCIUM GLUCONATE 10% - 1,000 MG/10 ML VIAL IVPUSH ONE (22:57)
[2020-03-28] MEDS ORDERED: SODIUM POLYSTYRENE SULFONATE 15 GM/60 ML BOTTLE RC ONE (22:57)
[2020-03-28] MEDS ORDERED: ALBUTEROL SO4 HFA INHALER IH ONE (22:57)
[2020-03-28] MEDS ORDERED: ALBUTEROL SO4 0.5 % INH SOLN 2.5 MG/0.5 ML VIAL.NEB. NEB ONE ×2 (22:58→23:03)
[2020-03-28] MEDS ORDERED: SODIUM BICARBONATE 8.4% 50 MEQ/50 ML VIAL IV SCH (23:00)
--- NOTE | 2020-03-28 23:06 | CONSULT ---
Consult Consult Specialty:: Endocrine Referred by:: Dr.Ammir Carlin Reason for Consultation:: hypoglycemia - History of Present Illness Chief Complaint: intubated hypotensive History of Present Illness: 59 year old female pmh DMT2,CKD of afib (on eliquis), CHF, HTN, asthma (intubated previously), prior PE, pulmonary fibrosis, sleep apnea, COPD (on 2L home oxygen) who presented w bilateral lower extremity edema and shortness of b reath. with hypoglycemia,persistant weakness respiratory difficulty. transferred to icu for respiratory failure and intubation,she is hypotensive,hypoglycemic,septic state. - Past Medical History [employer]: Yes: Other (Sciatica) Cardio/Vascular: Yes: AFIB, CHF, HTN Pulmonary: Yes: Asthma ((prior intubations)), COPD, O2 Dependent, Pulmonary Embolus (in the past), Pulmonary Fibrosis (history) Renal/: Yes: Renal Inusuff (CKD) Musculoskeletal: Yes: Osteoarthritis Endocrine: Yes: Diabetes Mellitus, Hypothyroidism - Past Surgical History Past Surgical History: Yes: - Alcohol/Substance Use Hx Alcohol Use: No History of Substance Use: reports: None - Smoking History Smoking history: Current every day smoker Have you smoked in the past 12 months: Yes Aproximately how many cigarettes per day: 1 - Social History Usual Living Arrangement: Alone (lives with in apartment without stairs) ADL: Independent (with Rollator) History of Recent Travel: No Home Medications - Allergies Allergies/Adverse Reactions: Allergies Allergy/AdvReac Type Severity Reaction Status Date / Time morphine Allergy Severe Verified 03/19/20 15:28 Penicillins Allergy Severe Hives Verified 03/19/20 15:28 tomato [Tomato] Allergy Unknown Verified 03/19/20 15:28 chocolate AdvReac Unknown Uncoded 03/19/20 15:28 - Home Medications Home Medications: Ambulatory Orders Cholecalciferol (Vitamin D3) [Vitamin D -] 50,000 unit PO WEEKLY 01/22/19 Linagliptin [Tradjenta] 5 mg PO DAILY 01/22/19 Acetaminophen [Tylenol .Regular Strength -] 650 mg PO Q6H PRN tablet 02/10/19 Lidocaine 5% Patch [Lidoderm -] 1 patch TP DAILY #30 patch 04/30/19 Diclofenac Sodium [Diclo Gel] 1 each TP ASDIR 07/13/19 Furosemide [Lasix] 40 mg PO DAILY 07/13/19 Oxycodone HCl/Acetaminophen [Endocet 10-325 mg Tablet] 1 each PO QID PRN 07/13/19 Bupropion HCl [Wellbutrin Xl -] 300 mg PO DAILY tab.sr.24h 10/08/19 Insulin Sliding Scale [Novolog Vial Sliding Scale -] 1 vial SQ ACHS units 10/08/19 Lisinopril [Prinivil] 5 mg PO DAILY tablet 10/08/19 Verapamil HCl ER [Calan Sr -] 240 mg PO DAILY tablet.er 10/08/19 Furosemide [Lasix -] 40 mg PO DAILY tablet 10/11/19 Melatonin 10 mg PO HS tab 10/11/19 Pantoprazole Sodium [Protonix -] 40 mg PO DAILY tablet.ec 10/11/19 hydrALAZINE HCL [Apresoline -] 75 mg PO QID tablet 10/11/19 Albuterol Sulfate Inhaler - [Ventolin HFA Inhaler -] 1 inh IH QID PRN 30 Days #2 inhaler 10/13/19 Apixaban [Eliquis -] 2.5 mg PO BID #60 tablet 10/13/19 Budesonide/Formeterol Fumarate [SYMBICORT 80/4.5mcg -] 2 puff IH BID #1 inhaler 10/13/19 Ergocalciferol [Vitamin D2] 50,000 unit PO We@1000 #4 capsule 10/13/19 Gabapentin [Neurontin -] 300 mg PO TID #60 capsule 10/13/19 Metoprolol Tartrate 200 mg PO BID #120 tablet 10/13/19 Review of Systems Unable to obtain ROS, reason: intubated Findings/Remarks: hypotensive and hypoglycemia Physical Exam Vital Signs: Vital Signs Temperature 97.7 F 03/28/20 16:00 Pulse Rate 44 L 03/28/20 20:21 Respiratory Rate 20 03/28/20 21:04 Blood Pressure 66/54 L 03/28/20 20:21 O2 Sat by Pulse Oximetry (%) 99 03/28/20 19:59 Labs: CBC, BMP 03/28/20 10:32 03/28/20 21:50 Problem List - Problems (1) Acute on chronic respiratory failure with hypoxia and hypercapnia Code(s): J96.21 - ACUTE AND CHRONIC RESPIRATORY FAILURE WITH HYPOXIA; J96.22 - ACUTE AND CHRONIC RESPIRATORY FAILURE WITH HYPERCAPNIA (2) Anemia Code(s): D64.9 - ANEMIA, UNSPECIFIED (3) Aortic regurgitation Code(s): I35.1 - NONRHEUMATIC AORTIC (VALVE) INSUFFICIENCY (4) CHF (congestive heart failure) Code(s): I50.9 - HEART FAILURE, UNSPECIFIED Qualifiers: (5) Chronic passive congestion of liver Code(s): K76.1 - CHRONIC PASSIVE CONGESTION OF LIVER (6) Diabetes Code(s): E11.9 - TYPE 2 DIABETES MELLITUS WITHOUT COMPLICATIONS (7) Elevated LFTs Code(s): R79.89 - OTHER SPECIFIED ABNORMAL FINDINGS OF BLOOD CHEMISTRY Assessment/Plan Current Active Problems HYPOGLYCEMIA/SEPSIS/HYPOADRENAL Acute on chronic respiratory failure with hypoxia and hypercapnia (Acute) Anemia (Acute) Aortic regurgitation (Acute) CHF (congestive heart failure) (Acute) Chronic passive congestion of liver (Acute) Cor pulmonale, chronic (Acute) Diabetes (Acute) Elevated LFTs (Acute) Pulmonary regurgitation (Acute) Tricuspid regurgitation (Acute) Abnormal Lab Results 03/28/20 03/28/20 03/28/20 08:05 10:00 10:15 WBC RBC Hgb Hct MCHC RDW Plt Count Monocytes % (Manual) Myelocytes % (Man) Nucleated RBC % Metamyelocytes ABG pH 7.270 L 7.270 L ABG pCO2 68.70 H 68.70 H ABG pO2 105.6 H 105.6 H ABG HCO3 30.8 H 30.8 H ABG Base Excess 3.0 H 3.0 H Potassium Carbon Dioxide Anion Gap BUN 78.1 H Creatinine 4.9 H Random Glucose 11 L* Lactic Acid Calcium 8.0 L Total Bilirubin 1.8 H AST Creatine Kinase 22 L Troponin I 0.06 H Total Protein 5.6 L Albumin 2.2 L 03/28/20 03/28/20 03/28/20 10:32 10:32 20:50 WBC 2.2 L RBC 2.90 L Hgb 8.1 L Hct 27.2 L MCHC 29.8 L RDW 20.9 H Plt Count 58 L D Monocytes % (Manual) 11 H Myelocytes % (Man) 8 H D Nucleated RBC % 5 H Metamyelocytes 6 H D ABG pH ABG pCO2 ABG pO2 ABG HCO3 ABG Base Excess Potassium 3.2 L Carbon Dioxide Anion Gap BUN 81.0 H Creatinine 5.0 H Random Glucose Lactic Acid 19.0 H* Calcium 7.8 L Total Bilirubin 1.5 H AST Creatine Kinase 18 L Troponin I 0.07 H Total Protein 4.7 L Albumin 1.9 L 03/28/20 21:50 WBC RBC Hgb Hct MCHC RDW Plt Count Monocytes % (Manual) Myelocytes % (Man) Nucleated RBC % Metamyelocytes ABG pH ABG pCO2 ABG pO2 ABG HCO3 ABG Base Excess Potassium 7.1 H* Carbon Dioxide 13 L Anion Gap 26 H BUN 79.8 H Creatinine 5.3 H Random Glucose 45 L* Lactic Acid Calcium 8.0 L Total Bilirubin 1.6 H AST 95 H Creatine Kinase Troponin I Total Protein 4.3 L Albumin 1.4 L PLAN: CONCUR CK ACTH/PROINSULIN LEVEL ADRENAL STRESS DOSE STEROIDS BGM Q2-4HRS SUGARS REMAINS ABOVE 200MG/DL QID
[2020-03-28] MEDS ORDERED: ALBUTEROL SO4 0.083% IH SOL 2.5 MG/3 ML VIAL.NEB. NEB ONE (23:08)
[2020-03-28] MEDS ORDERED: MEROPENEM 1 GM in DEXTROSE 5%-WATER 100 ML IVPB ONE (23:12)
[2020-03-28] MEDS ORDERED: SODIUM POLYSTYRENE SULFONATE 15 GM/60 ML BOTTLE ONE (23:18)
[2020-03-28] MEDS ORDERED: MEROPENEM 1 GM VIAL (RESTRICTED TO ID) IVPB ONE (23:32)
--- NOTE | 2020-03-29 00:24 | PN ---
Progress Note (short form) - Note Progress Note: Code 99 called multiple times. Please refer to code sheet. During the final cardiac arrest, (Brady Almanzar) at bedside requests compressions be stopped. Patient unresponsive to painful stimuli. No Spontaneous breathing. Unresponsive even to painful stimuli. Pupils fixed and nonreactive. No carotid or femoral pulses present. No heart sounds or breath sounds heard. TOD 00:09 on 03/29. NOK Brady almanzar present at bedside. Grievance services offerred to family. Body to be released to home of familys choice.
[2020-03-29 01:04] VITALS: BP 53/41; PULSE 54
--- NOTE | 2020-03-29 01:11 | PROC ---
Procedure Note Procedure: PROCEDURE NOTE: Internal jugular central line placement under ultrasound guidance PROCEDURE BANK PRESIDENT: Preston Mitchell M.D., PGY3 INDICATION: Hypotension requiring vasoactive agents CONSENT: The procedure emergent and performed with implied permission. PROCEDURE SUMMARY: A time out was performed. My hands were washed immediately prior to the procedure. I wore a surgical cap, mask with protective eyewear, sterile gown and sterile gloves throughout the procedure. The patient was placed in supine position. The Left chest region was prepped using chlorhexidine scrub and draped in sterile fashion. The medial and lateral heads of the sternocleidomastoid muscle, as well as the carotid pulse were identified. The internal jugular vein was identified using dynamic ultrasound. Using real-time out of plane guidance, the introducer needle was inserted into the internal jugular vein under direct ultrasound visualization. Venous blood was withdrawn. The syringe was removed and a guidewire was advanced into the introducer needle. The guidewire was visualized in the internal jugular vein by ultrasound. A small incision was made at the skin surface with a scalpel and the introducer needle was exchanged for a dilator over the guidewire. After appropriate dilation was obtained, the dilator was exchanged over the wire for a triple lumen central venous catheter. The wire was removed and the catheter was sutured in place at 20 cm. A biopatch and a sterile tegaderm were placed over the catheter at the insertion site. At time of procedure completion, all ports aspirated and flushed properly. Estimated blood loss is <5 cc. The patient tolerated the procedure without any hemodynamic compromise. Post- procedure chest x-ray revealed line is in satisfactory position.
[2020-03-29] MEDS ORDERED: methylPREDNISolone NA SUCC 40 MG/1 ML VIAL IVPUSH SCH (02:00)
[2020-03-29] MEDS ORDERED: POLYETHYLENE GLYCOL 3350 119 GM BTL PO SCH (10:00)
[2020-03-29] MEDS ORDERED: VERAPAMIL HCL 240 MG E.R. TABLET PO SCH (10:00)
[2020-03-29] MEDS ORDERED: FUROSEMIDE 40 MG TABLET (FP) PO SCH (10:00)
== END 2020-03-29 02:00 | disposition expired | DRG 194 ==
LOC: JER 10:07 → JERBED 13:21 → J4W 03-20 22:29 → JICU 03-28 08:34
PROVIDERS: ADMIT Family Medicine; ATTEND Family Medicine
PROC: 5A1D70Z Performance of Urinary Filtration, Intermittent, Less than 6 Hours Per Day (ICD-10-PCS; 2020-03-27)
PROC: 5A1935Z Respiratory Ventilation, Less than 24 Consecutive Hours (ICD-10-PCS; principal; 2020-03-28)
PROC: 0BH17EZ Insertion of Endotracheal Airway into Trachea, Via Natural or Artificial Opening (ICD-10-PCS; 2020-03-28)
PROC: 06HM33Z Insertion of Infusion Device into Right Femoral Vein, Percutaneous Approach (ICD-10-PCS; 2020-03-28)
PROC: B54BZZA Ultrasonography of Right Lower Extremity Veins, Guidance (ICD-10-PCS; 2020-03-28)
PROC: 05HN33Z Insertion of Infusion Device into Left Internal Jugular Vein, Percutaneous Approach (ICD-10-PCS; 2020-03-29)
PROC: B544ZZA Ultrasonography of Left Jugular Veins, Guidance (ICD-10-PCS; 2020-03-29)
DX: I13.0 Hypertensive heart and chronic kidney disease with heart failure and stage 1 through stage 4 chronic kidney disease, or unspecified chronic kidney disease (principal); J96.22 Acute and chronic respiratory failure with hypercapnia; J96.21 Acute and chronic respiratory failure with hypoxia; I50.33 Acute on chronic diastolic (congestive) heart failure; R65.21 Severe sepsis with septic shock; A41.9 Sepsis, unspecified organism; J84.10 Pulmonary fibrosis, unspecified; J84.9 Interstitial pulmonary disease, unspecified; N17.9 Acute kidney failure, unspecified; E87.5 Hyperkalemia; E87.2 Acidosis; J44.9 Chronic obstructive pulmonary disease, unspecified; D69.6 Thrombocytopenia, unspecified; E11.22 Type 2 diabetes mellitus with diabetic chronic kidney disease; I27.81 Cor pulmonale (chronic); Z99.81 Dependence on supplemental oxygen; E11.649 Type 2 diabetes mellitus with hypoglycemia without coma; N18.9 Chronic kidney disease, unspecified; Z79.01 Long term (current) use of anticoagulants; Z88.0 Allergy status to penicillin; Z86.711 Personal history of pulmonary embolism; Z79.4 Long term (current) use of insulin; I34.0 Nonrheumatic mitral (valve) insufficiency; F17.210 Nicotine dependence, cigarettes, uncomplicated; D64.9 Anemia, unspecified; K76.1 Chronic passive congestion of liver; G47.33 Obstructive sleep apnea (adult) (pediatric); R79.89 Other specified abnormal findings of blood chemistry; I48.0 Paroxysmal atrial fibrillation
CPT/HCPCS: 36415; 36600; 70450-TC; 71045-TC-FY; 76705-TC; 80048; 80053; 80076; 81003; 82024; 82103; 82105; 82140; 82172; 82247; 82272; 82436; 82465; 82550; 82565; 82607; 82728; 82803; 82947; 82962; 82977; 83010; 83036; 83516; 83520; 83525; 83540; 83550; 83605; 83735; 83880; 83883; 84133; 84155; 84165; 84300; 84439; 84443; 84450; 84460; 84478; 84484; 85025; 85610; 85730; 86038; 86225; 86256; 86704; 86705; 86706; 86707; 86708; 86709; 86803; 87040; 87070; 87077; 87086; 87186; 87205; 87340; 87389; 87522; 93005; 93010; 93306-TC; 94002; 94660; 97116-GP; 97161-GP; 99285-25; J1250; U0003